=== PATIENT | female | born 1990 | race Caucasian/White ===

== ENCOUNTER 2019-07-11 13:15 | Outpatient (RCR) | payer OTHER, SELFPAY ==
--- NOTE | 2019-07-02 11:14 | PTOPEVAL ---
Thank you for referring this patient to [facility]. Please review, sign, date and return this plan of care JOHN. Pt seen by physical therapy at [facility] to address impairments of shoulder pain with scapular dyskinesia. She demonstrates UE impairments that require continued therapy to address. Cont PT 1-2x/wk x 8 wk to achieve therapy goals. I agree with and certify that the following plan of care is medically necessary. Referring Physician Date Attending Provider: PHYSICIAN NOT ON STAFF Referring Provider: Dr. Jaimee Graham MD and Dr Esme Johnson MD *PT Outpatient Evaluation Start: 07/02/19 08:33 Freq: Status: Active Protocol: Document 07/02/19 08:36 CAP (Rec: 07/02/19 09:39 CAP [id number]) Therapy Assessment Status Assessment Status Assessment Status Evaluation Outpatient Past Medical History Cardiovascular History Hx Hypertension Yes Hx Other Cardiac Disorders Yes: POTS Respiratory History Hx Asthma Yes Gastrointestinal History Hx Irritable Bowel Yes Musculoskeletal History Hx Orthopedic Surgery Yes: left knee surgery, left tarsel tunnel release Hx Other Musculoskeletal Disorders Yes: Ehlos-Danlos syndrome, left tarsal tunnel, chronic joint dislocation Integumentary History Hx Skin Disorders No Significant History Reproductive History Hx Reproductive Disorders No Significant History Psychosocial History Hx Anxiety Yes Evaluation Information Problem Diagnosis EDS with nontraumatic shoulder pain Onset 06/18/19 Cause EDS Subjective Information Pt was seen by orthopedic MD Query Text:As Reported By Patient/ at [facility] on 06/19/19. Pt was DX Family with scapular dyskinesia with nontraumatic shoulder pain. Pt was admitted to [facility] on 06/18/19 due to passing out and her shoulder would not stay in place. She was transfered to [facility] and seen by a orthopedic MD who was able to get her scapular back into place. She reports random numbness with sharp pain into her scapular region. Unknown cause for her numbness and UE pain . She also report popping of scapular and shoulder with UE movement. She also repor
--- NOTE | 2019-07-15 08:25 | PCPTNOTE ---
Patient called & cancelled scheduled appointment this date due to AC joint and went to ED on Monday. MD instructed her to hold therapy this week.
--- NOTE | 2019-07-19 08:58 | PCPTNOTE ---
Patient called & cancelled the next 3 scheduled appointment this date due to her shoulder dislocation not healed enough for therapy. Pt to have a MRI.
--- NOTE | 2019-08-09 10:02 | PCPTNOTE ---
Admitting Provider: Dr. Jaimee Graham MD Attending Provider: PHYSICIAN NOT ON STAFF Patient:Rosangela Koenig Date of :1990 Patient has not returned for any further treatments since 07/11/2019, therefore she will be discharged from therapy at this time. The goals have not been achieved due to patient seen for 3 visit due to change in medical status. Thank you for referring this patient to [facility]. Please review, sign, date and return this discharge summary JOHN. I have been updated about the patient's current status and I agree with discharge from the above service at this time. Referring Physician Date
== END 2019-08-09 10:13 | disposition home or self-care (01) ==
LOC: ANHPT 13:15
PROVIDERS: PCP Family Medicine
DX: M25.511 Pain in right shoulder (principal)
CPT/HCPCS: 97110; 97140; 97163

== ENCOUNTER → 2020-01-08 10:53 | Outpatient (CLI) | payer OTHER, SELFPAY ==
--- NOTE | ~2020-01-08 | CT_ITS ---
EXAMINATION: CT foot RT wo con DATE: 01/08/2020 11:22 INDICATION: Subtalar joint dislocation. Pain. TECHNIQUE: Computed tomography (CT) of the right foot was performed without intravenous contrast. Aut omated exposure control and iterative reconstruction technique were employed. The dose-length product was 182.36 mGy-cm. COMPARISON: None FINDINGS: Bone alignment is normal on these nonweightbearing images. No fracture. There is a benign b one island in first metatarsal. Joint spaces are normal. IMPRESSION: 1. Normal right foot. Reviewed, dictated and finalized at location A. IMPRESSION: 1. Normal right foot.
== END ==
PROVIDERS: Visit Provider Podiatrist Foot & Ankle Surgery
DX: M25.571 Pain in right ankle and joints of right foot (principal); M79.671 Pain in right foot
CPT/HCPCS: 73700

== ENCOUNTER → 2020-01-15 12:16 | Outpatient (CLI) | payer OTHER, SELFPAY ==
--- NOTE | ~2020-01-15 | MR_ITS ---
EXAMINATION: MR ankle RT wo con DATE: 01/15/2020 13:16 INDICATION: Right ankle pain with inability to straighten the forefoot reflects the ankle. TECHNIQUE: Magnetic resonance imaging (MRI) of the right ankle was performed without intravenous cont rast. Sequences included sagittal, coronal, and axial proton-density weighted fast spin echo without and with fat saturation. COMPARISON: Right foot CT dated 01/08/2020 FINDINGS: Medial ankle ligaments: Deep and superficial deltoid ligaments as well as the spring ligament are normal. Lateral ankle ligaments: The anterior and posterior inferior tibiofibular ligaments are normal. The anterior talofibular, calc aneofibular and posterior talofibular ligaments are normal. Tendons: Achilles tendon is normal. The peroneus longus and brevis tendons are normal. The tibialis anterior a nd extensor hallucis longus and extensor digitorum longus tendons are normal. The tibialis posterior, flexor digitorum longus and flexor hallucis longus tendons are normal. Plantar fascia: The plantar aponeurosis is normal. Bones/other: Bone alignment is normal. Small low signal intensity bone island at the head of the first metatarsal. There is normal marrow signal throughout with no reactive edema, fracture, osteonecrosis or patholog ic marrow replacing process. Joint spaces are normal. The sinus Tarsi and tarsal tunnel are unremarka ble. No atrophy or abnormal signal of the intrinsic musculature of the foot. Fluid: Physiologic amount fluid in the joint spaces. No abnormal fluid collections at the right ankle or vis ualized right foot. IMPRESSION: 1. Normal MRI of the right ankle, mid and hindfoot. Reviewed, dictated and finalized at location A.
== END ==
PROVIDERS: PCP Family Medicine; Visit Provider Podiatrist
DX: M79.671 Pain in right foot (principal); M25.571 Pain in right ankle and joints of right foot
CPT/HCPCS: 73721

== ENCOUNTER 2020-02-20 16:37 | Emergency (ER) | payer OTHER, SELFPAY ==
--- NOTE | ~2020-02-20 | CT_ITS ---
EXAMINATION: CT brain wo con DATE: 02/20/2020 19:09 INDICATION: Left arm numbness and weakness TECHNIQUE: Computed tomography (CT) of the head was performed without intravenous contrast. Sagittal and coronal reconstructions were performed. The mA was adjusted according to patient size. Iterative reconstruction technique was employed. The dose-length product was 605.33 mGy-cm. COMPARISON: head CT dated 12/02/2018 FINDINGS: No acute intracranial hemorrhage, acute infarction or abnormal extra axial fluid collection. Ventricl es are normal and symmetric. No mass/mass effect. The orbits, paranasal sinuses and mastoid air cells are normal. IMPRESSION: 1. Normal head CT. Reviewed, dictated and finalized at location A. IMPRESSION: 1. Normal head CT.
--- NOTE | ~2020-02-20 | CT_ITS ---
EXAMINATION: CT cervical spine wo con DATE: 02/20/2020 19:08 INDICATION: Neck pain, paresthesia and weakness in the left arm. TECHNIQUE: Computed tomography (CT) of the cervical spine was performed without intravenous contrast. Automated exposure control and iterative reconstruction technique were employed. The dose-length pro duct was 173.18 mGy-cm. COMPARISON: Cervical spine radiographs dated 11/10/2016 FINDINGS: Again seen is reversal of the normal cervical lordosis. No spondylolisthesis or facet subluxation. Mi ld cervical levocurvature. Vertebral body and disc heights are normal. No facet or uncovertebral oste oarthritis. Central canal and neural foramina are patent throughout. Cervical soft tissues are unrema rkable. Apices of the lungs are clear. IMPRESSION: 1. Mild cervical levocurvature and mild reversal of the normal cervical lordosis which could be posit ional or due to muscle spasm. Otherwise unremarkable cervical spine CT. Reviewed, dictated and finalized at location A. IMPRESSION: 1. Mild cervical levocurvature and mild reversal of the normal cervical lordosi s which could be positional or due to muscle spasm. Otherwise unremarkable cerv ical spine CT.
--- NOTE | ~2020-02-20 | XR_ITS ---
DATE: 02/20/2020 17:22 INDICATION: Ehler Danlos syndrome presenting with anterior left shoulder pain TECHNIQUE: AP and transscapular Y views of the left shoulder were obtained. COMPARISON: None FINDINGS: Normal alignment. No fracture. Glenohumeral joint is normal. Acromioclavicular joint is normal. Soft tissues are unremarkable. Visualized portions of the lungs are clear. IMPRESSION: Negative left shoulder radiographs. Reviewed, dictated and finalized at location A.
--- NOTE | ~2020-02-20 | XR_ITS ---
EXAMINATION: XR shoulder RT min 2V DATE: 02/20/2020 17:22 INDICATION: Ehler Danlos syndrome presenting with anterior left shoulder pain TECHNIQUE: AP and transscapular Y views of the left shoulder were obtained. COMPARISON: None FINDINGS: Normal alignment. No fracture. Glenohumeral joint is normal. Acromioclavicular joint is normal. Soft tissues are unremarkable. Visualized portions of the lungs are clear. IMPRESSION: Negative left shoulder radiographs. Reviewed, dictated and finalized at location A.
[2020-02-20 16:39] VITALS: BP 146/108; PULSE 130; RESP 18; TEMP 37.4; O2SAT 100
[2020-02-20] MEDS: KETOROLAC (*BKC) 60 MG/2 ML VIAL IM (18:32)
--- NOTE | 2020-02-20 19:37 | ED.UPPEXIN ---
HPI - Extremity Injury (Upper) General Chief Complaint: Extremity Injury, Upper Stated Complaint: shoulder dislocation, connective tissue disorder. Time Seen by Provider: 02/20/20 18:00 Source: patient Mode of arrival: ambulatory Limitations: no limitations History of Present Illness HPI narrative: This is a 29 year old female that presents to the ER for left shoulder pain since this afternoon. No known injury or trauma. Reports she tried taking her tramadol and muscle relaxers and then did some exercises with the shoulder without relief. Reports she then started to have some paresthesias in the left hand. Reports decreased ROM in the shoulder due to pain. Denies fever. Related Data Home Medications Medication Instructions Recorded Confirmed ascorbic acid (vitamin C) 1,000 mg 1 gm PO DAILY 05/15/19 tablet cyclobenzaprine 5 mg tablet 5 mg PO TID PRN 05/15/19 05/15/19 Allergies Allergy/AdvReac Type Severity Reaction Status Date / Time hydromorphone Allergy Intermediate Hives / Verified 11/29/19 09:17 Red Face azithromycin Allergy Unknown N/V, Verified 11/29/19 09:17 DIARRHEA, ABD CRAMPING. clarithromycin Allergy Unknown UNKNOWN Verified 11/29/19 09:17 duloxetine Allergy Unknown BULGING Verified 11/29/19 09:17 EYES meperidine Allergy Unknown UNKNOWN Verified 11/29/19 09:17 ondansetron Allergy Unknown UNKNOWN Verified 11/29/19 09:17 hydrocodone Allergy Unknown Verified 12/24/19 10:12 ENERGY DRINKS Allergy Mild ORAL Uncoded 05/22/19 15:06 SWELLING WATERMELON-LEMON MATCH-E-BE-NASH-SHE-WISH BAND SLURPY Allergy Mild ORAL Uncoded 05/22/19 15:06 SWELLING MEPERIDINE HCL AdvReac Mild N&V Uncoded 12/02/18 19:55 Review of Systems Review of Systems: Narrative: CONSTITUTIONAL: Denies fever EYES: Denies visual changes MUSCULOSKELETAL: Reports back pain, joint pain, and myalgia. NEUROLOGIC: Reports numbness, and weakness. All systems reviewed & are unremarkable except as noted in HPI and below PMFSH Social History Social History Smoking status: Never smoker Second hand tobacco smoke exposure: Yes ( smokes outside the house) Alcohol intake: current Gender identity (if verbalized by the patient): Female Exam Narrative: Exam Narrative: GENERAL: Well-appearing, well-nourished, and in no acute distress. HEAD: Normocephalic, atraumatic. EYES: PERRLA and EOMI. ENT: Nares clear, no rhinorrhea or epistaxis. Mucous membranes moist. Oropharynx without tonsillar hypertrophy exudate or other lesions. Bilateral TMs pearly hurtado non-bulging NECK: Supple. No adenopathy or masses. CHEST: Clear to auscultation. No respiratory distress. No wheezes rales or rhonchi HEART: Regular rate and rhythm. No murmur heard. Normal peripheral pulses. EXTREMITIES: Normal range of motion, except decreased ROM in the left shoulder due to pain. No edema or obvious deformity. Normal peripheral pulses. Normal capillary refill. Decreased sensation in the left hand SKIN: Warm, dry, no rash. NEURO: No focal deficits. Alert and oriented x3. CN II-XII grossly intact. Normal gait PSYCH: Normal mood and affect Course Consultations Consultation #1: Spoke with Dr. Alejo about patient work-up. Patient will be set up for an outpatient nerve conduction study and will follow-up in clinic. Date: 02/20/20 Time: 21:39 Consultation #2: Spoke with patient's orthopedic doctor about work-up. Patient will be given a dose of muscle relaxer and placed in a sling. She will follow-up in clinic next week. Date: 02/20/20 Time: 21:39 Vital Signs Vital signs: Vital Signs Temperature 99.4 F 02/20/20 16:39 Pulse Rate 130 H 02/20/20 16:39 Respiratory Rate 18 02/20/20 16:39 Blood Pressure 146/108 H 02/20/20 16:39 Pulse Oximetry 100 02/20/20 16:39 Temperature 99.4 F 02/20/20 16:39 Pulse Rate 70 02/20/20 20:02 Respiratory Rate 20 02/20/20 20:02 Blood Pressure 120/80 02/20/20 2
[2020-02-20] MEDS: MORPHINE SULFATE 4 MG/ML INJ IV PUSH (20:00)
[2020-02-20 20:02] VITALS: BP 120/80; PULSE 70; RESP 20; O2SAT 99
[2020-02-20] MEDS: diphenhydrAMINE HCl INJ 50 MG/ML VIAL 25 MG IV PUSH (20:09)
[2020-02-20] MEDS: FAMOTIDINE 20 MG/2 ML VIAL IV PUSH (20:57)
[2020-02-20 21:57] VITALS: BP 122/78; PULSE 78; RESP 20; O2SAT 100
== END 2020-02-20 21:58 | disposition home or self-care (01) ==
PROVIDERS: Emergency Provider Emergency Medicine; PCP Family Medicine
DX: Q79.60 Ehlers-Danlos syndrome, unspecified (principal); R20.2 Paresthesia of skin; M25.512 Pain in left shoulder; Z77.22 Contact with and (suspected) exposure to environmental tobacco smoke (acute) (chronic)
CPT/HCPCS: 70450; 72125; 73030; 81025; 96372; 96374; 96375; 99284; A4565; J1200; J1885; J2270; J3360

== ENCOUNTER → 2020-02-27 09:29 | Outpatient (CLI) | payer OTHER, SELFPAY ==
--- NOTE | ~2020-02-27 | XR_ITS ---
EXAMINATION: XR abdomen/kub 1V DATE: 02/27/2020 09:50 INDICATION: Unspecified abdominal pain. TECHNIQUE: A supine view of the abdomen was obtained. COMPARISON: CT abdomen and pelvis 07/01/2019 FINDINGS: There are no dilated loops of bowel. There is a moderate volume of stool in the colon. IMPRESSION: 1. Normal bowel gas pattern. Reviewed, dictated and finalized at location B.
== END ==
PROVIDERS: PCP Family Medicine; Visit Provider Physician Assistant
DX: R10.9 Unspecified abdominal pain (principal)
CPT/HCPCS: 74018

== ENCOUNTER 2020-04-21 12:18 | Outpatient (RCR) | payer OTHER, SELFPAY ==
--- NOTE | 2020-04-21 15:10 | PTOPEVAL ---
Thank you for referring Rosangela Koenig to [facility].? The patient is scheduled to be seen for therapy? 1 x/week for 10 weeks. Please review, sign, date and return this plan of care JOHN. I agree with and certify that the following plan of care is medically necessary. Referring Physician Date Referring Provider: [facility] *PT Outpatient Evaluation Start: 04/21/20 12:36 Freq: Status: Active Protocol: Document 04/21/20 12:35 CAP (Rec: 04/21/20 13:39 CAP [id number]) Therapy Assessment Status Assessment Status Assessment Status Evaluation Outpatient Past Medical History Past Medical History Source of Past Medical History Patient,Recalled from Previous Visit, Confirmed with Patient /Family Cardiovascular History Hx Hypertension Yes Hx Other Cardiac Disorders Yes: POTS Respiratory History Hx Asthma Yes Gastrointestinal History Hx Irritable Bowel Yes Musculoskeletal History Hx Orthopedic Surgery Yes: left knee surgery, left tarsel tunnel release Hx Other Musculoskeletal Disorders Yes: Ehlos-Danlos syndrome, left tarsal tunnel, chronic joint dislocation Integumentary History Hx Skin Disorders No Significant History Reproductive History Hx Reproductive Disorders No Significant History Psychosocial History Hx Anxiety Yes Evaluation Information Problem Diagnosis neck and left shoulder Onset 1 month for neck and shoulder Cause EDS Additional Evaluation Detail She has been having sd shoulder dislocations recently with AC joint dislocation. She has been DX with extra bone at C1 level. She subluxed her subtalor joint in January 2020. Subjective Information She has received injections Query Text:As Reported By Patient/ into C7 region 2 wks ago and Family left shoulder injection 1 wk ago. She reports her neck feels heavy with increased pain with motions. Reports the area of C7 becomes tension. REports she was having ant chest with radiating pain into left UE due the shoulder. She is limited with all activities due to the pain.
--- NOTE | 2020-04-27 15:55 | PCPTNOTE ---
Patient called & cancelled scheduled appointment this date due to returning to the orthopedic MD. Pt is scheduled for her re-eval only.
--- NOTE | 2020-05-21 08:23 | PCPTNOTE ---
Admitting Provider: Attending Provider: [facility] Patient:Rosangela Koenig Date of :1990 Discharge Note Patient has not returned for any further treatments since her initial evaluation on 04/21/2020, therefore she will be discharged at this time. The goals have been not been met since patient was seen for initial evaluation only. Thank you for referring this patient to [facility]. Please review, sign, date and return this discharge summary JOHN. I have been updated about the patient's current status and I agree with discharge from the above service at this time. Referring Physician Date
== END 2020-05-21 10:34 | disposition home or self-care (01) ==
LOC: ANHPT 12:18
PROVIDERS: PCP Family Medicine
DX: M25.512 Pain in left shoulder (principal); M54.2 Cervicalgia
CPT/HCPCS: 97110; 97163

== ENCOUNTER 2020-10-30 09:45 | Outpatient (RCR) | payer OTHER, SELFPAY ==
--- NOTE | 2020-10-16 14:40 | PTOPEVAL ---
Thank you for referring Rosangela Koenig to [facility].? The patient is scheduled to be seen for therapy? 2x/week for 3 weeks. Please review, sign, date and return this plan of care JOHN. I agree with and certify that the following plan of care is medically necessary. Referring Physician Date Referring Provider: Lazarus Blandon MD Source of Past Medical History Patient Cardiovascular History Hx Hypertension Yes Hx Other Cardiac Disorders Yes: POTS Respiratory History Hx Asthma Yes Gastrointestinal History Hx Irritable Bowel Yes Musculoskeletal History Hx Orthopedic Surgery Yes: left knee surgery, left tarsel tunnel release Hx Other Musculoskeletal Disorders Yes: Ehlos-Danlos syndrome, left tarsal tunnel, chronic joint dislocation Psychosocial History Hx Anxiety Yes Evaluation Information Problem Diagnosis right foot pain due to tarsal tunnel syndrome Onset 1 month Additional Evaluation Detail EDS causing continuous joint dislocation. talus/navicular dislocation 6 months ago with 4 days of hard cast, but removed to soft cast/air cast 1wk. Then developed ligament popping. She received a PIG MACHINE CRANE OPERATOR injection which helped the popping and symptoms. She returned to normal walking. Subjective Information She reports she has been Query Text:As Reported By Patient/ having right foot pain. She Family has started outside walking 15 minute 2-3x/day. She started having pain inferior to medial malleoli to heel region. Increased pain and difficulty with walking, standing, sleeping, daily activities. She is not able to tolerate her tennis shoes with custom inserts due to pain. Does c/o slight numbness and tingling of right great toe. PIG MACHINE CRANE OPERATOR and stim cell injections 3 wks ago with no relief of symptoms. Pain Assessment Self Report Pain Assessment Right Medial Ankle(s) Reported Pain Level 8 Pain Description Aching,Tender on Palpation, Tig
--- NOTE | 2020-10-30 15:37 | PCPTNOTE ---
Patient called & cancelled scheduled appointment remaining visits due to has a f/u visit with the surgeon scheduled.
--- NOTE | 2020-11-09 10:40 | PCPTNOTE ---
Admitting Provider: Attending Provider: Dr. Lazarus Blandon Patient:Rosangela Koenig Date of :1990 Discharge Note Patient has been discharged from skilled therapy services due to all therapy treatments caused increased foot/ankle pain. Therefore she will be discharged at this time. Patient?s initial visit was on 10/16/2020 10:45 and she had a total of 3 visits. The goals have been not met due to pain and limited tolerance with activities. Thank you for referring this patient to [facility]. Please review, sign, date and return this discharge summary JOHN. I have been updated about the patient's current status and I agree with discharge from the above service at this time. Referring Physician Date
== END 2020-11-11 09:14 | disposition home or self-care (01) ==
LOC: ANHPT 09:45
PROVIDERS: PCP Family Medicine
DX: M25.572 Pain in left ankle and joints of left foot (principal); M79.672 Pain in left foot
CPT/HCPCS: 97035; 97110; 97163

== ENCOUNTER → 2020-11-17 04:45 | Outpatient (CLI) | payer OTHER, SELFPAY ==
[2020-11-17 20:06] LABS: SARS-CoV-2 RNA PCR Negative
== END ==
PROVIDERS: PCP Family Medicine; Visit Provider Podiatrist Foot & Ankle Surgery
DX: Z01.812 Encounter for preprocedural laboratory examination (principal); Z20.822 Contact with and (suspected) exposure to COVID-19
CPT/HCPCS: C9803; U0003; U0005

== ENCOUNTER 2020-11-20 03:55 | Day surgery (SDC) | payer OTHER, SELFPAY ==
[2020-11-10 10:39] VITALS: BMI 24.1
--- NOTE | 2020-11-19 08:40 | WPDANESEPPF ---
Anes - Initial Pre Proc Eval Procedure: Operation Date: 11/20/20 13:30 Proposed Procedures p Right Tarsal Tunnel Release - Pranay Dejesus DPM Date/Time: 11/19/20 08:40 Surgeon: Pranay Dejesus DPM Pre Op Diagnosis: right tarsal tunnel Patient Data Age: 30 Gender: F Height: 1.7 m Weight: 70 kg Allergies Allergy/AdvReac Type Severity Reaction Status Date / Time hydromorphone Allergy Intermediate Hives / Verified 11/20/20 12:07 Red Face clarithromycin Allergy Mild N/V Verified 11/20/20 12:07 hydrocodone Allergy Mild Itching Verified 11/20/20 12:07 meperidine Allergy Mild Nausea and Verified 11/20/20 12:07 Vomiting azithromycin Allergy Unknown N/V, Verified 11/20/20 12:07 DIARRHEA, ABD CRAMPING. duloxetine Allergy Unknown BULGING Verified 11/20/20 12:07 EYES ondansetron Allergy Unknown PROLONGED Verified 11/20/20 12:07 QT ENERGY DRINKS Allergy Mild ORAL Uncoded 11/20/20 12:07 SWELLING WATERMELON-LEMON [place] SLURPY Allergy Mild ORAL Uncoded 11/20/20 12:07 SWELLING Home Medications Medication Instructions Recorded Confirmed Type ascorbic acid (vitamin C) 1,000 mg 1 gm PO DAILY 05/15/19 11/20/20 History tablet famotidine 40 mg PO DAILY #30 tablet 07/01/19 11/20/20 Rx cetirizine 10 mg tablet 10 mg PO BID tablet 02/27/20 11/20/20 History fluticasone propionate 50 1 spray INTRANASAL DAILY 05/18/20 11/20/20 History mcg/actuation nasal spray,suspension epinephrine 0.3 mg/0.3 mL 0.3 mg IM ONCE #1 ea 07/16/20 11/10/20 Rx injection, auto-injector tramadol 50 mg tablet 50 mg PO Q6H PRN #30 tablet 07/20/20 11/20/20 Rx metoclopramide HCl 10 mg tablet 10 mg PO Q6H PRN #60 tablet 09/28/20 11/20/20 Rx cyclobenzaprine 5 mg tablet 5 mg PO TID PRN #90 tablet 10/23/20 11/20/20 Rx Vitassium 1 tab-cap BYMOUTH DAILY PRN 11/10/20 11/20/20 History diazepam 5 mg tablet 5 mg PO TID PRN #90 tablet 11/16/20 Rx triamcinolone acetonide 0.1 % 1 applic DENTAL BID #5 g 11/16/20 Rx dental paste Patient hx anesthesia problems: post op nausea/vomiting (severe) Family hx anesthesia problems: none PMFSH Past Medical History Medical History (Updated 11/19/20 @ 08:40 by Ferdinand Schafer DO) Asthma Colitis Costochondritis Disorder 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) IBS (irritable bowel syndrome) Type C Mononucleosis Motion sickness PONV (postoperative nausea and vomiting) Surgical History Surgical History History of endoscopy History of tonsillectomy Tarsal tunnel syndrome, left lower limb Tram teeth extracted Social History Social History Smoking status: Never smoker Second hand tobacco smoke exposure: No Alcohol intake: current Substance use: never Substance use type: does not use Living arrangements: with family Gender identity (if verbalized by the patient): Female Sexual Orientation (if Verbalized by the Patient): Straight or Heterosexual Spiritual care concerns: No Anes - Eval Final PreProcedure Day of Procedure 11/19/20 08:40 Patient weight: normal Heart: regular rate and rhythm Lungs: clear to auscultation and normal air movement Airway: Mallampati scale class II Neurological: alert and oriented Last oral intake: >/= 8 hours ASA classification: III Emergent: no Anesthetic plan: proceed Anesthesia type and monitoring: general GIVS and standard monitoring Informed Consent: The patient's anesthetic plan and its attendant risks and benefits were discussed with the patient/family/POA. Questions were solicited and answers provided to the satisfaction of the patient/family/POA.
[2020-11-20] VITALS (9 sets, daily range): BP systolic 114–129; BP diastolic 73–91; PULSE 97–119; RESP 12–18; TEMP 36.1–36.3; O2SAT 99–100
--- NOTE | 2020-11-20 11:46 | WPDHPUPDATE1 ---
History and Physical Update Update Date/Time: 11/20/20 11:46 History and Physical has been reviewed, including an updated exam of the patient. There are NO changes in the patient's condition. Risks, benefits, and alternatives have been discussed and questions answered. Patient agrees to proceed with procedure.
[2020-11-20] MEDS: LACTATED RINGERS 1,000 ML 30 ML IV CONT ×2 (12:35→14:53)
[2020-11-20] MEDS: SCOPOLAMINE 1.5 MG PATCH TRANSDERM (12:57)
--- NOTE | 2020-11-20 13:09 | PM.IMHP ---
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) IBS (irritable bowel syndrome) Type C Mononucleosis Motion sickness PONV (postoperative nausea and vomiting) Surgical History Surgical History History of endoscopy History of tonsillectomy Tarsal tunnel syndrome, left lower limb [place] teeth extracted Social History Social History Smoking status: Never smoker Second hand tobacco smoke exposure: No Alcohol intake: current Substance use: never Substance use type: does not use Living arrangements: with family Gender identity (if verbalized by the patient): Female Sexual Orientation (if Verbalized by the Patient): Straight or Heterosexual Spiritual care concerns: No Meds Home Medications and Allergies Home Medications Medication Instructions Recorded Confirmed Type ascorbic acid (vitamin C) 1,000 mg 1 gm PO DAILY 05/15/19 11/20/20 History tablet famotidine 40 mg PO DAILY #30 tablet 07/01/19 11/20/20 Rx cetirizine 10 mg tablet 10 mg PO BID tablet 02/27/20 11/20/20 History fluticasone propionate 50 1 spray INTRANASAL DAILY 05/18/20 11/20/20 History mcg/actuation nasal spray,suspension epinephrine 0.3 mg/0.3 mL 0.3 mg IM ONCE #1 ea 07/16/20 11/10/20 Rx injection, auto-injector tramadol 50 mg tablet 50 mg PO Q6H PRN #30 tablet 07/20/20 11/20/20 Rx metoclopramide HCl 10 mg tablet 10 mg PO Q6H PRN #60 tablet 09/28/20 11/20/20 Rx cyclobenzaprine 5 mg tablet 5 mg PO TID PRN #90 tablet 10/23/20 11/20/20 Rx Vitassium 1 tab-cap BYMOUTH DAILY PRN 11/10/20 11/20/20 History diazepam 5 mg tablet 5 mg PO TID PRN #90 tablet 11/16/20 Rx triamcinolone acetonide 0.1 % 1 applic DENTAL BID #5 g 11/16/20 Rx dental paste Allergies Allergy/AdvReac Type Severity Reaction Status Date / Time hydromorphone Allergy Intermediate Hives / Verified 11/20/20 12:07 Red Face clarithromycin Allergy Mild N/V Verified 11/20/20 12:07 hydrocodone Allergy Mild Itching Verified 11/20/20 12:07 meperidine Allergy Mild Nausea and Verified 11/20/20 12:07 Vomiting azithromycin Allergy Unknown N/V, Verified 11/20/20 12:07 DIARRHEA, ABD CRAMPING. duloxetine Allergy Unknown BULGING Verified 11/20/20 12:07 EYES ondansetron Allergy Unknown PROLONGED Verified 11/20/20 12:07 QT ENERGY DRINKS Allergy Mild ORAL Uncoded 11/20/20 12:07 SWELLING [place] SLURPY Allergy Mild ORAL Uncoded 11/20/20 12:07 SWELLING Vital Signs Vital Signs - 24 hr 11/20/20 13:05 Temperature 36.3 C L Pulse Rate 119 H Blood Pressure 124/82 Pulse Oximetry 100 Exam Extrem: Right lower extremity: foot (POP of tarsal tunnel) Assessment and Plan Additional Plan Tarsal tunnel release right
[2020-11-20] MEDS: ceFAZolin 2 GM/D5W 50 ML 2 GM/50 ML BAG IVPB (13:17)
[2020-11-20] MEDS: BUPIVACAINE HCL 0.5% PF 30 ML VIAL INFILTRATE (13:37)
--- NOTE | 2020-11-20 13:54 | P.OP_ITS ---
Procedure Note - Detailed Date of procedure: 11/20/20 Pre-op diagnosis: right tarsal tunnel Post-op diagnosis: same Procedure performed: Tarsal tunnel release right Description of procedure: Under monitored sedation the patient was brought into the operating room and placed on the operating table in a supine position. Following administration of general anesthesia the foot was then scrubbed, prepped, and draped in the usual aseptic manner. An Esmark bandage was used to exsanguinate the patients right foot and ankle. Tourniquet was inflated to 300mm. Attention was directed to the medial aspect of the ankle posterior to medial malleolus. A linear incision made over the tarsal tunnel. It was deepened using blunt dissection with care being taken to identify and retract all vital and neurovascular structures. The tarsal tunnel was identified and released as was then origin of the adductor hallucis muscle. The wound was flushed with copious amounts of sterile normal saline and then skin was reapproximated and coapted using 5-0 vicryl. The wound was then covered with a dry sterile compressive dressing consisting of steristrips, antibiotic ointment, Adaptic, 4 x 4?s, [place]ina and Coban. Ankle tourniquet was deflated and prompt capillary refill response was noted to all digits of the left foot. Patient tolerated procedure and anesthesia well. Transferred to the recovery room with vital signs stable and neurovascular status intact to all digits of the right foot. Following a period of post-operative monitoring the patient will be discharged home with written and oral post-operative instructions. Anesthesia: GLMA and MAC Surgeon: Pranay Dejesus DPM Health Underwriter: None Estimated blood loss (mL): 5 Drains: No Packing: No Pathology: none sent Complications: No immediate complications Condition: stable Disposition: PACU
[2020-11-20] MEDS: fentaNYL CITRATE INJ (*CRX) 100 MCG/2 ML VIAL 25 MCG IV PUSH ×8 (14:17→15:00)
[2020-11-20] MEDS: oxyCODONE HCL (*CRX) 5 MG TAB IR PO (15:34)
== END 2020-11-20 16:12 | disposition home or self-care (01) ==
PROVIDERS: PCP Family Medicine; Visit Provider Podiatrist Foot & Ankle Surgery
PROC: (CPT 28035; principal; 2020-11-20 13:30)
DX: G57.51 Tarsal tunnel syndrome, right lower limb (principal); Q79.60 Ehlers-Danlos syndrome, unspecified; K58.1 Irritable bowel syndrome with constipation
CPT/HCPCS: 28035; A9270; C9803; J0690; J1100; J2250; J2405; J2704; J3010; J7120; U0003; U0005

== ENCOUNTER 2020-12-16 15:49 | Emergency (ER) | payer OTHER, SELFPAY ==
[2020-12-16] VITALS (8 sets, daily range): BP systolic 124–151; BP diastolic 91–96; PULSE 108–123; RESP 12–20; TEMP 36.4; O2SAT 96–100
--- NOTE | ~2020-12-16 | XR_ITS ---
XR knee RT min 4V DATE: 12/16/2020 16:56 INDICATION: Generalized knee pain, redness TECHNIQUE: 4 views COMPARISON: 07/18/2018 right knee FINDINGS: No fracture or dislocation, joint effusion, radiopaque and articular loose body or chondroc alcinosis or significant joint space narrowing. No periosteal reaction or bone destruction. IMPRESSION: Negative Reviewed, dictated and finalized at location A. IMPRESSION: Negative
--- NOTE | 2020-12-16 16:45 | PC.NURSE ---
xray at bedside.
--- NOTE | 2020-12-16 18:24 | ED.LOWEXIN ---
HPI - Extremity Injury (Lower) General Chief Complaint: Extremity Injury, Lower Stated Complaint: Right Knee Swelling, Pain Time Seen by Provider: 12/16/20 16:32 Source: patient Limitations: no limitations History of Present Illness HPI Narrative: 30-year-old with a history of Sunday-Danlos syndrome here with complaints of right knee pain for past 2 days she denies any trauma she states that there was mild swelling around the knee joint , has pain when ambulation or bending the knee. She also mentions that she had a tarsal tunnel release approximately 2 weeks ago. MD complaint: knee injury Onset (ago): day(s) (2) Injury: Right: knee Type of Injury: unknown Place: home Severity: moderate Relieving factors: nothing Exacerbating factors: weight bearing and movement Other symptoms: none Related Data Home Medications Medication Instructions Recorded Confirmed ascorbic acid (vitamin C) 1,000 mg 1 gm PO DAILY 05/15/19 11/20/20 tablet cetirizine 10 mg tablet 10 mg PO BID tablet 02/27/20 11/20/20 fluticasone propionate 50 1 spray INTRANASAL DAILY 05/18/20 11/20/20 mcg/actuation nasal spray,suspension Vitassium 1 tab-cap BYMOUTH DAILY PRN 11/10/20 11/20/20 Allergies Allergy/AdvReac Type Severity Reaction Status Date / Time hydromorphone Allergy Intermediate Hives / Verified 12/16/20 16:05 Red Face clarithromycin Allergy Mild N/V Verified 12/16/20 16:05 hydrocodone Allergy Mild Itching Verified 12/16/20 16:05 meperidine Allergy Mild Nausea and Verified 12/16/20 16:05 Vomiting azithromycin Allergy Unknown N/V, Verified 12/16/20 16:05 DIARRHEA, ABD CRAMPING. duloxetine Allergy Unknown BULGING Verified 12/16/20 16:05 EYES ondansetron Allergy Unknown PROLONGED Verified 12/16/20 16:05 QT ENERGY DRINKS Allergy Mild ORAL Uncoded 12/16/20 16:05 SWELLING WATERMELON-LEMON [place] SLURPY Allergy Mild ORAL Uncoded 12/16/20 16:05 SWELLING Review of Systems Review of Systems: All systems reviewed & are unremarkable except as noted in HPI and below Constitutional: Constitutional: Reports no additional constitutional complaints Eyes: Eyes: Reports no additional eye complaints ENT: Reports system reviewed and no additional complaints, except as documented Cardiovascular: Cardiovascular: Reports no additional cardiovascular complaints Respiratory: Respiratory: Reports no additional respiratory complaints Gastrointestinal: Gastrointestinal: Reports no additional gastrointestinal complaints Musculoskeletal: Musculoskeletal: Reports as per HPI Endocrine: Endocrine: Reports no additional endocrine complaints PMFSH Past Medical History Medical History Asthma Colitis Costochondritis Disorder 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) IBS (irritable bowel syndrome) Type C Mononucleosis Motion sickness PONV (postoperative nausea and vomiting) Surgical History Surgical History History of endoscopy History of tonsillectomy Tarsal tunnel syndrome, left lower limb [place] teeth extracted Social History Social History Smoking status: Never smoker Second hand tobacco smoke exposure: No Alcohol intake: current Substance use: never Substance use type: does not use Gender identity (if verbalized by the patient): Female Spiritual care concerns: No Exam Narrative: Exam Narrative: GENERAL: Well-appearing, well-nourished, and in no acute distress. HEAD: Normocephalic, atraumatic. EYES: PERRLA and EOMI. NECK: Supple. CHEST: Clear to auscultation. No respiratory distress. HEART: Regular rate and rhythm. No murmur heard. Normal peripheral pulses. ABDOMEN: Soft, nontender, nondistended, normal active bowel sounds. EXTREMITIES: Normal range of motion. No edema. Examination of the
--- NOTE | 2020-12-16 18:24 | PC.NURSE ---
Dr. Kaufman to bedside to discuss results with pt.
== END 2020-12-16 18:42 | disposition home or self-care (01) ==
PROVIDERS: Emergency Provider Family Medicine; PCP Family Medicine
DX: M25.561 Pain in right knee (principal); Q79.60 Ehlers-Danlos syndrome, unspecified; J45.909 Unspecified asthma, uncomplicated; K58.1 Irritable bowel syndrome with constipation; Z98.890 Other specified postprocedural states
CPT/HCPCS: 73564; 99283

== ENCOUNTER 2021-02-10 12:24 | Emergency (ER) | payer OTHER, SELFPAY ==
--- NOTE | ~2021-02-10 | XR_ITS ---
XR shoulder LT min 2V DATE: 02/10/2021 13:19 INDICATION: Left shoulder pain TECHNIQUE: 4 views COMPARISON: 02/20/2020 left shoulder FINDINGS: No fracture or dislocation, periosteal reaction or bone destruction or abnormal soft tissue calcification. IMPRESSION: Negative Reviewed, dictated and finalized at location A. IMPRESSION: Negative
--- NOTE | ~2021-02-10 | XR_ITS ---
EXAMINATION: XR mandible min 4V DATE: 02/10/2021 13:18 INDICATION: Jaw pain. Syndrome of joint dislocation. TECHNIQUE: 4 views of the mandible were obtained. COMPARISON: Mandible radiographs 09/14/2018, head CT 02/20/2020 FINDINGS: Bone alignment is normal. No fracture. The temporomandibular joints are normal. IMPRESSION: 1. Normal mandible. Reviewed, dictated and finalized at location A. IMPRESSION: 1. Normal mandible.
[2021-02-10 12:39] VITALS: BP 144/104; PULSE 120; RESP 18; TEMP 36.1; O2SAT 98
--- NOTE | 2021-02-10 14:44 | ED.GENADULT ---
HPI - General Adult General Chief complaint: Extremity Injury, Upper Stated complaint: jaw and shoulder dislocation? Time Seen by Provider: 02/10/21 14:09 Source: patient Mode of arrival: ambulatory Limitations: no limitations History of Present Illness HPI narrative: 30-year-old with a history of Sunday-Danlos syndrome here with complaints of left shoulder pain chest pain, mandibular pain since yesterday. Patient states that she dislocated her shoulder yesterday was at [facility] which was reduced however since this morning she has been having more pain she thinks it is dislocated as well. Patient also states that she is scheduled to see TMJ specialist in [place] she denies any trauma. Patient states that she takes Valium 5 mg 3 times a day, Flexeril pain medication. Onset (ago): day(s) (1) Location: mouth and upper extremity (Left) Quality: aching Pain Consistency: constant Relieving factors: none Exacerbating factors: movement Associated symptoms: denies other symptoms Related Data Home Medications Medication Instructions Recorded Confirmed ascorbic acid (vitamin C) 1,000 mg 1 gm PO DAILY 05/15/19 02/02/21 tablet cetirizine 10 mg tablet 10 mg PO BID tablet 02/27/20 02/02/21 fluticasone propionate 50 1 spray INTRANASAL DAILY 05/18/20 02/02/21 mcg/actuation nasal spray,suspension Vitassium 1 tab-cap BYMOUTH DAILY PRN 11/10/20 02/02/21 Allergies Allergy/AdvReac Type Severity Reaction Status Date / Time hydromorphone Allergy Intermediate Hives / Verified 02/10/21 14:30 Red Face clarithromycin Allergy Mild N/V Verified 02/10/21 14:30 hydrocodone Allergy Mild Itching Verified 02/10/21 14:30 meperidine Allergy Mild Nausea and Verified 02/10/21 14:30 Vomiting azithromycin Allergy Unknown N/V, Verified 02/10/21 14:30 DIARRHEA, ABD CRAMPING. duloxetine Allergy Unknown BULGING Verified 02/10/21 14:30 EYES ondansetron Allergy Unknown PROLONGED Verified 02/10/21 14:30 QT ENERGY DRINKS Allergy Mild ORAL Uncoded 12/16/20 16:05 SWELLING WATERMELON-LEMON [place] SLURPY Allergy Mild ORAL Uncoded 12/16/20 16:05 SWELLING Review of Systems Review of Systems: All systems reviewed & are unremarkable except as noted in HPI and below Constitutional: Constitutional: Reports no additional constitutional complaints Eyes: Eyes: Reports no additional eye complaints ENT: Reports as per HPI Cardiovascular: Cardiovascular: Reports no additional cardiovascular complaints Respiratory: Respiratory: Reports no additional respiratory complaints Gastrointestinal: Gastrointestinal: Reports no additional gastrointestinal complaints Musculoskeletal: Musculoskeletal: Reports as per HPI PMFSH Past Medical History Medical History Asthma Colitis Costochondritis Disorder 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) IBS (irritable bowel syndrome) Type C Mononucleosis Motion sickness PONV (postoperative nausea and vomiting) Tarsal tunnel syndrome of right side Surgical History Surgical History History of endoscopy History of tonsillectomy Tarsal tunnel syndrome, left lower limb [place] teeth extracted Social History Social History Smoking status: Never smoker Second hand tobacco smoke exposure: No Alcohol intake: current Substance use: never Substance use type: does not use Gender identity (if verbalized by the patient): Female Spiritual care concerns: No Exam Narrative: GENERAL: Well-appearing, well-nourished, and in no acute distress. HEAD: Normocephalic, atraumatic. EYES: PERRLA and EOMI. ENT: Nares clear, cannot open the mouth sec to pain , deviated to the right . NECK: Supple. CHEST: Clear to auscultation. No respiratory distress. HEART: Regular rate and rhythm
[2021-02-10 15:00] VITALS: BP 125/92; PULSE 88; RESP 16; O2SAT 97
== END 2021-02-10 15:00 | disposition home or self-care (01) ==
PROVIDERS: Emergency Provider Family Medicine; PCP Family Medicine
DX: M25.512 Pain in left shoulder (principal); R68.84 Jaw pain; Q79.60 Ehlers-Danlos syndrome, unspecified; J45.909 Unspecified asthma, uncomplicated; K58.9 Irritable bowel syndrome, unspecified
CPT/HCPCS: 70110; 73030; 81025; 99284; A4565

== ENCOUNTER 2021-06-04 19:24 | Emergency (ER) | payer OTHER, SELFPAY ==
--- NOTE | ~2021-06-04 | CT_ITS ---
EXAMINATION: CT facial bones wo con DATE: 06/04/2021 21:38 INDICATION: Right jaw swelling and pain. TECHNIQUE: Computed tomography (CT) of the facial bones and maxillofacial region was performed withou t intravenous contrast. Automated exposure control and iterative reconstruction technique were employ ed. The dose-length product was 278.53 mGy-cm. COMPARISON: Maxillofacial CT 09/14/2018, head CT 02/20/20 FINDINGS: There is mild mucosal thickening of left maxillary sinus. There is rightward translation of the mandible with respect to the maxilla. The right temporomandibular joint is normal with mandibula r condyle in the closed mouth position. The left temporomandibular joint demonstrates anterior displa cement of the mandibular condyle into the open-mouth position. No fracture. IMPRESSION: 1. Asymmetric positioning of the mandible with the right temporomandibular joint in the closed mouth position and left temporomandibular joint in the open mouth position. Reviewed, dictated and finalized at location A. NOLOGY STRATEGIST IMPRESSION: 1. Asymmetric positioning of the mandible with the right temporomandibular join t in the closed mouth position and left temporomandibular joint in the open silvia th position.
[2021-06-04 19:26] VITALS: BP 142/96; PULSE 131; RESP 20; TEMP 37.3; O2SAT 100
--- NOTE | 2021-06-04 19:35 | ED.ALLEREA ---
HPI - Allergic Reaction General Chief complaint: Allergic Reaction Stated complaint: allergic reaction Time Seen by Provider: 06/04/21 19:32 Source: patient History of Present Illness HPI narrative: Patient presents with concern for allergic reaction. Reports a history of anaphylaxis triggered by unclear etiologies. Reports symptoms started approximately 30 minutes ago she took Benadryl and EpiPen at home. She reports she continues to feel like she is having a swollen tongue and difficulty swallowing patient came to the ER for evaluation. She denies any fevers chills denies any nausea vomiting or diarrhea. Reports perioral itching denies any rash. Related Data Home Medications Medication Instructions Recorded Confirmed ascorbic acid (vitamin C) 1,000 mg 1 gm PO DAILY 05/15/19 02/02/21 tablet cetirizine 10 mg tablet 10 mg PO BID tablet 02/27/20 02/02/21 fluticasone propionate 50 1 spray INTRANASAL DAILY 05/18/20 02/02/21 mcg/actuation nasal spray,suspension Vitassium 1 tab-cap BYMOUTH DAILY PRN 11/10/20 02/02/21 Allergies Allergy/AdvReac Type Severity Reaction Status Date / Time hydromorphone Allergy Intermediate Hives / Verified 06/04/21 19:37 Red Face clarithromycin Allergy Mild N/V Verified 06/04/21 19:37 hydrocodone Allergy Mild Itching Verified 06/04/21 19:37 meperidine Allergy Mild Nausea and Verified 06/04/21 19:37 Vomiting azithromycin Allergy Unknown N/V, Verified 06/04/21 19:37 DIARRHEA, ABD CRAMPING. duloxetine Allergy Unknown BULGING Verified 06/04/21 19:37 EYES ondansetron Allergy Unknown PROLONGED Verified 06/04/21 19:37 QT ENERGY DRINKS Allergy Mild ORAL Uncoded 06/04/21 19:37 SWELLING WATERMELON-LEMON [place] SLURPY Allergy Mild ORAL Uncoded 06/04/21 19:37 SWELLING Review of Systems Review of Systems: CONSTITUTIONAL: Denies fever, chills, or sweats. EYES: Denies visual changes, redness, or discharge. ENT: Denies rhinorrhea, congestion, sore throat, or otalgia. CARDIOVASCULAR: Denies chest pain, palpitations, or edema. RESPIRATORY: Denies cough GASTROINTESTINAL: Denies abdominal pain, nausea, vomiting, or diarrhea. GENITOURINARY: Denies dysuria or hematuria. SKIN: Denies rash MUSCULOSKELETAL: Denies back pain, joint pain, or myalgia. NEUROLOGIC: Denies headache, numbness, dizziness, or weakness. PSYCHIATRIC: Denies anxiety or depression. 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) IBS (irritable bowel syndrome) Type C Mononucleosis Motion sickness PONV (postoperative nausea and vomiting) Tarsal tunnel syndrome of right side Surgical History Surgical History History of endoscopy History of tonsillectomy Tarsal tunnel syndrome, left lower limb [place] teeth extracted Social History Social History Smoking status: Never smoker Second hand tobacco smoke exposure: No Alcohol intake: current Substance use: never Substance use type: does not use Gender identity (if verbalized by the patient): Female Sexual Orientation (if Verbalized by the Patient): Straight or Heterosexual Spiritual care concerns: No Exam Narrative: GENERAL: Well-appearing, well-nourished, and in no acute distress. HEAD: Normocephalic, atraumatic. EYES: PERRLA and EOMI. ENT: Nares clear, no rhinorrhea or epistaxis. Mucous membranes moist. No erythema or edema in the oropharynx NECK: Supple. No masses. No JVD CHEST: Clear to auscultation. No respiratory distress. No wheezes rales or rhonchi HEART: Regular rate and rhythm. No murmur heard. Normal peripheral pulses. ABDOMEN: Soft, nontender, nondistended, norm
[2021-06-04 19:36] VITALS: BP 155/72; PULSE 128; RESP 12; O2SAT 100
--- NOTE | 2021-06-04 19:56 | PC.NURSE ---
unsuccessful IV attempt, per EDP okay to give meds orally as pt has patent airway w/ no swelling noted
[2021-06-04] MEDS: diphenhydrAMINE HCl CAP 25 MG CAPSULE PO (19:59)
[2021-06-04] MEDS: predniSONE 20 MG TABLET 60 MG PO (19:59)
[2021-06-04 20:54] VITALS: BP 131/83; PULSE 116; RESP 18; O2SAT 100
--- NOTE | 2021-06-04 20:55 | PC.NURSE ---
Pt called this RN to room to notify left side of jaw came out of place - pt has PMH of same. EDP made aware.
[2021-06-04] MEDS: KETOROLAC 30 MG/ML VIAL (*BKC) IM (21:10)
[2021-06-04 22:11] VITALS: BP 124/81; PULSE 97; RESP 17; O2SAT 100
[2021-06-04] MEDS: CYCLOBENZAPRINE HCL 10 MG TABLET PO (22:21)
[2021-06-04 23:22] VITALS: BP 132/88; PULSE 91; RESP 15; O2SAT 99
== END 2021-06-04 23:23 | disposition home or self-care (01) ==
LOC: ANHED 20:05
PROVIDERS: Emergency Provider Emergency Medicine; PCP Family Medicine
DX: T78.2XXA Anaphylactic shock, unspecified, initial encounter (principal); Q79.60 Ehlers-Danlos syndrome, unspecified; Z91.018 Allergy to other foods; Z88.8 Allergy status to other drugs, medicaments and biological substances; Z87.09 Personal history of other diseases of the respiratory system; Z87.19 Personal history of other diseases of the digestive system; Z90.89 Acquired absence of other organs; Z79.899 Other long term (current) drug therapy
CPT/HCPCS: 70486; 96372; 99284; A9270; J1885; J7512

== ENCOUNTER 2021-10-26 17:54 | Emergency (ER) | payer OTHER, SELFPAY ==
[2021-10-26 17:58] VITALS: BP 124/91; PULSE 133; RESP 20; O2SAT 100
[2021-10-26] MEDS: diphenhydrAMINE HCl INJ 50 MG/ML VIAL IV PUSH ×2 (18:18→19:47)
[2021-10-26] MEDS: FAMOTIDINE 20 MG/2 ML VIAL IV PUSH (18:18)
[2021-10-26] MEDS: methylPREDNISolone SOD SUCC 125 MG VIAL IV PUSH (18:19)
--- NOTE | 2021-10-26 18:24 | ED.ALLEREA ---
HPI - Allergic Reaction General Chief complaint: Allergic Reaction Stated complaint: allergic reaction Time Seen by Provider: 10/26/21 18:15 Source: patient Mode of arrival: ambulatory Limitations: no limitations History of Present Illness HPI narrative: This is a 31-year-old female that presents to the emergency department for a possible allergic reaction. Reports history of several allergies and anaphylaxis. She has an EpiPen and currently sees an supervisor general. Reports today she had a smoothie from [employer]. Shortly after she started to note itching and redness. She took her EpiPen. Has continued to have itching of her throat and swelling of her tongue. Denies difficulty breathing. Related Data Home Medications Medication Instructions Recorded Confirmed ascorbic acid (vitamin C) 1,000 mg 1 gm PO DAILY 05/15/19 10/15/21 tablet cetirizine 10 mg tablet 10 mg PO BID tablet 02/27/20 10/15/21 fluticasone propionate 50 1 spray INTRANASAL DAILY 05/18/20 10/15/21 mcg/actuation nasal spray,suspension Vitassium 1 tab-cap BYMOUTH DAILY PRN 11/10/20 10/15/21 Allergies Allergy/AdvReac Type Severity Reaction Status Date / Time hydromorphone Allergy Intermediate Hives / Verified 10/14/21 15:29 Red Face clarithromycin Allergy Mild N/V Verified 10/14/21 15:29 hydrocodone Allergy Mild Itching Verified 10/14/21 15:29 meperidine Allergy Mild Nausea and Verified 10/14/21 15:29 Vomiting azithromycin Allergy Unknown N/V, Verified 10/14/21 15:29 DIARRHEA, ABD CRAMPING. duloxetine Allergy Unknown BULGING Verified 10/14/21 15:29 EYES ondansetron Allergy Unknown PROLONGED Verified 10/14/21 15:29 QT ENERGY DRINKS Allergy Mild ORAL Uncoded 06/04/21 19:37 SWELLING W[place]ELON-LEMON [place] [employer] SLURPY Allergy Mild ORAL Uncoded 06/04/21 19:37 SWELLING Review of Systems Review of Systems: CONSTITUTIONAL: Denies fever SKIN: Reports rash and itching. 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) IBS (irritable bowel syndrome) Type C Mononucleosis Motion sickness PONV (postoperative nausea and vomiting) Tarsal tunnel syndrome of right side Surgical History Surgical History History of endoscopy History of tonsillectomy Tarsal tunnel syndrome, left lower limb [place] teeth extracted Social History Social History Second hand tobacco smoke exposure: No Alcohol intake: current Substance use: never Substance use type: does not use Gender identity (if verbalized by the patient): Female Sexual Orientation (if Verbalized by the Patient): Straight or Heterosexual Spiritual care concerns: No Exam Narrative: GENERAL: Well-appearing, well-nourished, and in no acute distress. HEAD: Normocephalic, atraumatic. EYES: EOMI. ENT: Nares clear, no rhinorrhea or epistaxis. Mucous membranes moist. Oropharynx appears normal NECK: Supple. No adenopathy or masses. CHEST: Clear to auscultation. No respiratory distress. No wheezes rales or rhonchi HEART: Regular rate and rhythm. No murmur heard. Normal peripheral pulses. EXTREMITIES: Normal range of motion. No edema. SKIN: Warm, dry. Hives present on the chest NEURO: No focal deficits. Alert and oriented x3. PSYCH: Normal mood and affect Course Vital Signs Vital signs: Vital Signs Pulse Rate 133 H 10/26/21 17:58 Respiratory Rate 20 10/26/21 17:58 Blood Pressure 124/91 H 10/26/21 17:58 Pulse Oximetry 100 10/26/21 17:58 Pulse Rate 122 H 10/26/21 20:00 Respiratory Rate 14 10/26/21 20:00 Blood Pressure 155/107 H 10/26/21 20:00 Pulse Oximetry 100 10/26/21
--- NOTE | 2021-10-26 18:49 | PC.NURSE ---
benadryl not given IV per orders. Pt took 50mg benadryl PO prior to coming to ER. returned medication to appropriate bin.
[2021-10-26 20:00] VITALS: BP 155/107; PULSE 122; RESP 14; O2SAT 100
[2021-10-26] MEDS: EPINEPHrine HCL INJ 1 MG/ML AMPUL 0.3 MG IM (20:52)
[2021-10-26] MEDS: SODIUM CHLORIDE 0.9% IV 1,000 ML 999 ML IV CONT (20:52)
[2021-10-26 21:00] VITALS: BP 136/85; PULSE 126; RESP 14; O2SAT 100
[2021-10-26 22:00] VITALS: BP 130/86; PULSE 116; RESP 14; O2SAT 100
[2021-10-26 22:55] VITALS: BP 115/91; PULSE 113; RESP 20; O2SAT 99
== END 2021-10-26 22:55 | disposition home or self-care (01) ==
PROVIDERS: Emergency Provider Emergency Medicine; PCP Family Medicine
DX: T78.40XA Allergy, unspecified, initial encounter (principal); Q79.60 Ehlers-Danlos syndrome, unspecified; Z88.5 Allergy status to narcotic agent; Z88.1 Allergy status to other antibiotic agents; Z88.8 Allergy status to other drugs, medicaments and biological substances; Z91.018 Allergy to other foods; Z87.09 Personal history of other diseases of the respiratory system; Z87.19 Personal history of other diseases of the digestive system
CPT/HCPCS: 96361; 96372; 96374; 96375; 99284; J0171; J1200; J2930; J7030

== ENCOUNTER 2021-10-28 12:37 | Observation (INO) | payer OTHER, SELFPAY ==
[2021-10-28] VITALS (27 sets, daily range): BP systolic 116–148; BP diastolic 71–99; PULSE 102–146; RESP 12–33; O2SAT 97–100; BMI 29.0
--- NOTE | ~2021-10-28 | XR_ITS ---
EXAMINATION: XR mandible min 4V INDICATION: TMJ reduction TECHNIQUE: Four views of the mandible are obtained. COMPARISON: Radiographs from 1618 hours FINDINGS: Bone alignment at the temporomandibular joints is normal. No fracture is identified. The so ft tissues are unremarkable. IMPRESSION: 1. Normal alignment at the temporomandibular joints. Reviewed, dictated and finalized at location F.
--- NOTE | ~2021-10-28 | XR_ITS ---
EXAMINATION: XR chest 1V portable DATE: 10/28/2021 13:01 INDICATION: Anaphylaxis with difficulty breathing. TECHNIQUE: frontal view of the chest was obtained. COMPARISON: Chest radiograph dated 07/01/19 FINDINGS: The lungs remain clear with no focal airspace opacities, pulmonary edema, pleural effusion or pneumot horax. The cardiomediastinal silhouette is normal. Visualized bones and soft tissues are unremarkable . IMPRESSION: 1. No acute cardiopulmonary disease. Reviewed, dictated and finalized at location B.
--- NOTE | ~2021-10-28 | XR_ITS ---
XR mandible min 4V DATE: 10/30/2021 09:00 INDICATION: Reduction of left temporal mandibular joint dislocation TECHNIQUE: 4 views COMPARISON: , 10/28/2021 mandible radiographic examinations FINDINGS: Normal alignment at the temporomandibular joints bilaterally. No mandibular fracture or dis location is detected. IMPRESSION: No evidence of temporomandibular joint dislocation Reviewed, dictated and finalized at location A.
--- NOTE | ~2021-10-28 | XR_ITS ---
EXAMINATION: XR mandible min 4V INDICATION: Temporomandibular joint dislocation TECHNIQUE: Four views of the temporomandibular joints are obtained. COMPARISON: 10/28/2021 FINDINGS: Alignment of the temporomandibular joints is anatomic. No fracture is identified. The soft tissues are unremarkable. IMPRESSION: 1. Normal radiographic alignment at the temporomandibular joints. Reviewed, dictated and finalized at location B.
--- NOTE | ~2021-10-28 | XR_ITS ---
XR mandible min 4V DATE: 10/28/2021 16:21 INDICATION: Left-sided mandibular pain. Possible dislocation 20 minutes ago. TECHNIQUE: 06/04/2021 CT facial bones 02/10/2021 mandible COMPARISON: 06/21/2021 CT facial bones 02/10/2021 mandible 09/14/2018 mandible pre- and postreduction views FINDINGS: There is anterior dislocation of the left temporomandibular joint. No mandibular fracture i s noted. IMPRESSION: Anterior dislocation at left temporal mandibular joint Reviewed, dictated and finalized at location A.
[2021-10-28] MEDS: FAMOTIDINE 20 MG/2 ML VIAL IV PUSH (12:51)
[2021-10-28] MEDS: methylPREDNISolone SOD SUCC 125 MG VIAL IV PUSH (12:51)
--- NOTE | 2021-10-28 12:53 | PC.NURSE ---
Epinephrine held per Dr. Sears's order.
[2021-10-28 12:59] LABS: Basophils Percent Auto 0.1 % (0.2-1.2); Hematocrit 38.5 % (37.0-47.0); Hemoglobin 11.9 g/dL (12.0-15.0); Immature Granulocyte Absolute 0.11 K/mm3 (0.00-0.031); Immature Granulocyte Percent A 0.7 % (0-0.5); Lymphocytes Absolute Auto 1.06 K/mm3 (0.9-3.2); Lymphocytes Percent Auto 6.7 % (18.3-44.2); Mean Corpuscular HGB Conc 30.9 g/dl (32-36); Mean Corpuscular Hemoglobin 25.8 pg (26-34); Mean Corpuscular Volume 83.5 fl (80-100); Mean Platelet Volume 9.3 fl (7.4-10.4); Monocytes Absolute Auto 0.3 K/mm3 (0.1-0.6); Monocytes Percent Auto 1.9 % (2.6-8.5); Neutrophils Absolute Auto 14.3 K/mm3 (1.3-6.7); Neutrophils Percent Auto 90.6 % (45.5-73.1); Platelet Count Result 611 k/mm3 (150-375); Red Blood Count 4.61 M/mm3 (4.2-5.4); Red Cell Distribution Width 14.2 % (11.5-14.5); White Blood Count 15.8 K/mm3 (4.5-10.0)
[2021-10-28 13:12] LABS: Alanine Aminotransferase 27 U/L (4-35); Albumin Level 5.3 g/dL (3.5-5.1); Alkaline Phosphatase 124 U/L (38-126); Anion Gap 15 mmol/L (8-16); Aspartate Amino Transferase 32 U/L (14-36); Bilirubin,Total 0.1 mg/dL (0.2-1.3); Blood Urea Nitrogen 17 mg/dL (7-17); Calcium 9.5 mg/dL (8.4-10.2); Carbon Dioxide 21 mmol/L (22-30); Chloride 103 mmol/L (98-107); Estimated CRCL calculation 130 ml/min; Estimated Glomerular Filt Rate > 60; Glucose 143 mg/dL (65-110); Potassium 3.3 mmol/L (3.4-5.0); Sodium 139 mmol/L (137-145)
[2021-10-28] MEDS: SODIUM CHLORIDE 0.9% IV 1,000 ML 999 ML IV CONT (13:18)
[2021-10-28] MEDS: EPINEPHrine HCL INJ 1 MG/ML AMPUL 0.3 MG IM ×2 (14:57→18:53)
--- NOTE | 2021-10-28 15:34 | ED.ALLEREA ---
HPI - Allergic Reaction General Chief complaint: Allergic Reaction Stated complaint: allergic reaction Time Seen by Provider: 10/28/21 12:43 History of Present Illness HPI narrative: Patient is a 31-year-old female who presents ER with concerns for anaphylaxis. Patient had just left her ambulatory care office when she started to get redness to her chest and neck and face. She developed itching of her throat and some discomfort with swallowing. She feels like her tongue is slightly enlarged as well. She gave herself epinephrine and took 50 mg of Benadryl. Patient was seen 2 days ago for similar presentation. Patient has tree nut allergies but also reports history of idiopathic anaphylaxis. Reports she has not had anything to eat today. No known exposures. Related Data Home Medications Medication Instructions Recorded Confirmed ascorbic acid (vitamin C) 1,000 mg 1 gm PO DAILY 05/15/19 10/28/21 tablet cetirizine 10 mg tablet 20 mg PO BID tablet 02/27/20 10/28/21 fluticasone propionate 50 1 spray INTRANASAL DAILY 05/18/20 10/28/21 mcg/actuation nasal spray,suspension diazepam 5 mg PO TID PRN 10/28/21 10/28/21 famotidine 20 mg PO BID 10/28/21 10/28/21 montelukast [Singulair] 10 mg PO HS 10/28/21 10/28/21 triamcinolone acetonide 1 applic DENTAL BID PRN 10/28/21 10/28/21 Allergies Allergy/AdvReac Type Severity Reaction Status Date / Time hydromorphone Allergy Intermediate Hives / Verified 10/28/21 12:54 Red Face clarithromycin Allergy Mild N/V Verified 10/28/21 12:54 hydrocodone Allergy Mild Itching Verified 10/28/21 12:54 meperidine Allergy Mild Nausea and Verified 10/28/21 12:54 Vomiting azithromycin Allergy Unknown N/V, Verified 10/28/21 12:54 DIARRHEA, ABD CRAMPING. duloxetine Allergy Unknown BULGING Verified 10/28/21 12:54 EYES ondansetron Allergy Unknown PROLONGED Verified 10/28/21 12:54 QT albuterol Allergy Difficulty Verified 10/28/21 13:24 Breathing ENERGY DRINKS Allergy Mild ORAL Uncoded 06/04/21 19:37 SWELLING WATERMELON-LEMON MOHEGAN SLURPY Allergy Mild ORAL Uncoded 06/04/21 19:37 SWELLING Review of Systems Review of Systems: All systems reviewed & are unremarkable except as noted in HPI and below Constitutional: Constitutional: Denies chills, Denies fever(s) and Denies weakness ENT: Denies nasal congestion and Reports sore throat Comments: Swelling of the tongue/throat Cardiovascular: Cardiovascular: Denies chest pain, Reports rapid heart rate and Denies radiating jaw, neck or arm pain Respiratory: Respiratory: Denies cough, Reports dyspnea and Denies wheezing Gastrointestinal: Gastrointestinal: Denies abdominal pain, Denies diarrhea, Denies nausea and Denies vomiting Genitourinary: Genitourinary: Denies nocturia, Denies dysuria and Denies flank pain Integumentary/Breasts: Skin/Breast: Reports pruritus, Reports erythema and Reports rash PMF Past Medical History Medical History (Updated 10/28/21 @ 19:23 by Mariah Griffiths PA-C) Anxiety Asthma 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 Irritable bowel syndrome with constipation Mononucleosis (05/2019) Postural orthostatic tachycardia syndrome Scapular dyskinesis Surgical History Surgical History (Updated 10/28/21 @ 19:19 by Mariah Griffiths PA-C) History of arthroscopy of right knee History of endoscopy History of tonsillectomy Tarsal tunnel syndrome, left lower limb [place] teeth extracted Family History Family History (Updated 10/28/21 @ 19:19 by Mariah Griffiths PA-C) Other Adopted Social History Social History (Updated 10/28/21 @ 19:21 by Mariah Griffiths PA-C) Social History: Surrogate decision maker: Armand Koenig, . Code status: Full code. Smoking status: Never smoker Second hand tobacco smoke exposure: No Alcohol intake: current Alcohol use details: Rare alco
--- NOTE | 2021-10-28 15:45 | PC.NURSE ---
Patient states she just dislocated her jaw. Patient reports this frequently happens. JESENIA Vasquez notified.
[2021-10-28] MEDS: diazePAM INJ (*CRX) 10 MG/2 ML SYRINGE 5 MG IV PUSH (17:09)
--- NOTE | 2021-10-28 17:20 | PC.NURSE ---
JESENIA Pedro in room for jaw relocation. Repeat X-ray ordered.
--- NOTE | 2021-10-28 17:30 | PM.IMHP ---
H&P: HPI History of Present Illness Date/Time: 10/28/21 17:30 Chief Complaint: Allergic reaction, used EpiPen. 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 She was seen in the emergency department 2 days ago with a presumed allergic reaction with symptoms to include pruritus, erythema, tongue swelling, and itching throat. She was given a dose of epinephrine, antihistamines, and steroids in the ER with improvement her symptoms and she was discharged home 4.5 hours thereafter after she remained stable. She had a follow-up appointment with her manager data today and all was well during the visit however not long after leaving she developed a sporadic rash, hives, and itching throat. She used her EpiPen and came to the ER where she was given methylprednisolone and famotidine in addition to 2 more doses of epinephrine. Within a couple of hours her symptoms returned and it was felt that she should be admitted overnight for observation. While still in the ER she had a spontaneous dislocation of the left temporomandibular joint which was reduced per Dr. Vasquez. Patient states that is not unusual for her to have dislocations due to her Sunday-Danlos. At the time of my re-evaluation she is resting comfortably and denies lightheadedness, scratchy throat, shortness of breath, chest pain, nausea, and vomiting. Review of Systems Review of Systems: Twelve systems were reviewed. No recent cold or flu symptoms. No fever, chills, or sweats. No sick contacts. Except as documented, all other systems were reviewed and are negative. 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 Irritable bowel syndrome with constipation Mononucleosis (05/2019) Postural orthostatic tachycardia syndrome Scapular dyskinesis Surgical History Surgical History (Updated 10/28/21 @ 19:19 by Mariah Griffiths PA-C) History of arthroscopy of right knee History of endoscopy History of tonsillectomy Tarsal tunnel syndrome, left lower limb [place] teeth extracted Family History Family History (Updated 10/28/21 @ 19:19 by Mariah Griffiths PA-C) Other Adopted Social History Social History (Updated 10/28/21 @ 19:21 by Mariha Griffiths PA-C) Social History: Surrogate decision maker: Armand Koenig, . Code status: Full code. Smoking status: Never smoker Second hand tobacco smoke exposure: No Alcohol intake: current Alcohol use details: Rare alcohol use in moderation. Substance use: never Substance use type: does not use Additional living arrangements comments: Lives in [place] with her . No children. She is adopted. 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 Spiritual care concerns: No Meds Home Medications and Allergies Home Medications Medication Instructions Recorded Confirmed Type ascorbic acid (vitamin C) 1,000 mg 1 gm PO DAILY 05/15/19 10/15/21 History tablet famotidine 40 mg PO DAILY #30 tablet 07/01/19 10/15/21 Rx cetirizine 10 mg tablet 10 mg PO BID tablet 02/27/20 10/15/21 History fluticasone propionate 50 1 spray INTRANASAL DAILY 05/18/20 10/15/21 History mcg/actuation nasal spray,suspension Vitassium 1 tab-cap BYMOUTH DAILY PRN 11/10/20 10/15/21 History epinephrine 0.3 mg IM Q5-15M PRN #2 ea 06/04/21 10/15/21 Rx prednisone 50 mg PO DAILY #4 tablet 06/04/21 10/15/21 Rx ergocalciferol (vitamin D2) 1,250 1,250 mcg PO WEEKLY #12 cap 06/23/21 10/15/21 Rx mcg (50,000 unit) capsule cyclobenzaprine 5 mg tablet 5 mg PO TID PRN #90 tablet 09/19/21 10/15/21 Rx metocloprami
--- NOTE | 2021-10-28 17:57 | ADMGEN ---
This patient, Rosangela Koenig, was admitted to Intensive Care Unit-3. Patient/family oriented to hospital policies and general routines including ID bracelet, bed and alarms, visiting hours, pain management, procedures, bathroom and other care routines, personal items, smoking policy, room service/diet, and visiting hours. Information on how to activate the Rapid Response Team has been discussed. Patient/Family are encouraged to report perceived risks to care and to ask questions if they do not understand what they are told or what they should do.
[2021-10-28] MEDS: SODIUM CHLORIDE 0.9% IV 1,000 ML 125 ML IV CONT (18:38)
[2021-10-28] MEDS: methylPREDNISolone SOD SUCC 125 MG VIAL 60 MG IV PUSH ×2 (18:41→23:07)
[2021-10-28] MEDS: diphenhydrAMINE HCl INJ 50 MG/ML VIAL 25 MG IV PUSH ×2 (18:42→22:42)
[2021-10-28] MEDS: POTASSIUM CHLORIDE 20 MEQ TABLET PO (20:30)
[2021-10-28] MEDS: METOCLOPRAMIDE HCL INJ 10 MG/2 ML VIAL IV PUSH (20:30)
[2021-10-28] MEDS: FAMOTIDINE 20 MG/2 ML VIAL 40 MG IV PUSH (20:34)
[2021-10-28] MEDS: MONTELUKAST SODIUM 10 MG TABLET PO (23:05)
[2021-10-28] MEDS: LORATADINE 10 MG TABLET 20 MG PO (23:06)
[2021-10-29] VITALS (15 sets, daily range): BP systolic 110–156; BP diastolic 75–108; PULSE 80–133; RESP 16–22; TEMP 36.4–36.8; O2SAT 95–100
[2021-10-29] MEDS: SODIUM CHLORIDE 0.9% IV 1,000 ML 125 ML IV CONT ×2 (03:01→12:36)
[2021-10-29 05:07] LABS: Basophils Percent Auto 0.1 % (0.2-1.2); Hematocrit 31.4 % (37.0-47.0); Hemoglobin 9.7 g/dL (12.0-15.0); Immature Granulocyte Absolute 0.06 K/mm3 (0.00-0.031); Immature Granulocyte Percent A 0.6 % (0-0.5); Lymphocytes Absolute Auto 0.96 K/mm3 (0.9-3.2); Lymphocytes Percent Auto 9.3 % (18.3-44.2); Mean Corpuscular HGB Conc 30.9 g/dl (32-36); Mean Corpuscular Volume 84.2 fl (80-100); Mean Platelet Volume 9.5 fl (7.4-10.4); Monocytes Absolute Auto 0.3 K/mm3 (0.1-0.6); Monocytes Percent Auto 3.2 % (2.6-8.5); Neutrophils Percent Auto 86.8 % (45.5-73.1); Platelet Count Result 382 k/mm3 (150-375); Red Blood Count 3.73 M/mm3 (4.2-5.4); Red Cell Distribution Width 14.1 % (11.5-14.5); White Blood Count 10.3 K/mm3 (4.5-10.0)
[2021-10-29 05:25] LABS: Alanine Aminotransferase 17 U/L (4-35); Albumin Level 3.8 g/dL (3.5-5.1); Alkaline Phosphatase 73 U/L (38-126); Anion Gap 7 mmol/L (8-16); Aspartate Amino Transferase 24 U/L (14-36); Bilirubin,Total 0.3 mg/dL (0.2-1.3); Blood Urea Nitrogen 12 mg/dL (7-17); Calcium 8.5 mg/dL (8.4-10.2); Carbon Dioxide 22 mmol/L (22-30); Chloride 108 mmol/L (98-107); Estimated CRCL calculation 186 ml/min; Estimated Glomerular Filt Rate > 60; Glucose 117 mg/dL (65-110); Potassium 4.3 mmol/L (3.4-5.0); Sodium 137 mmol/L (137-145)
[2021-10-29 06:04] LABS: Thyroid Stimulating Hormone Reflex 0.253 uIU/mL (0.465-4.68)
[2021-10-29] MEDS: methylPREDNISolone SOD SUCC 125 MG VIAL 60 MG IV PUSH ×3 (06:09→17:02)
[2021-10-29 07:36] LABS: Free T4 Free Thyroxine Reflex 1.16 ng/dL (0.78-2.19)
[2021-10-29] MEDS: diazePAM INJ (*CRX) 10 MG/2 ML SYRINGE 5 MG IV PUSH ×2 (08:22→11:21)
[2021-10-29] MEDS: MORPHINE SULFATE (*CRX) 2 MG/ML INJ IV PUSH ×5 (08:24→15:10)
--- NOTE | 2021-10-29 08:53 | WPDCNINT ---
Assessment and Plan Assessment and plan (1) Idiopathic anaphylaxis: Code(s): T78.2XXA - Anaphylactic shock, unspecified, initial encounter Status: Acute Assessment and Plan: Seems to have improved at this time patient is asymptomatic Tryptase levels ordered and admission and is pending Will continue Solu-Medrol and famotidine through today Continue monitoring and Continue p.r.n. epinephrine if needed (2) Dislocated jaw: Code(s): S03.00XA - Dislocation of jaw, unspecified side, initial encounter Status: Acute Assessment and Plan: I requested the ER physician Dr. Witt for assistance but he was unable to reduce TMJ dislocation. I have consulted ENT for assistance. I spoke to Dr. Salas who recommended consulting Dr. Barrios. Dr. Crum who has evaluated the patient and will come back later to reduce dislocation. I have given patient morphine and Valium for pain and muscle relaxation meanwhile Will Check mandible x-ray post reduction confirm adequate placement Patient will call her to bring in her appliance that she uses to prevent dislocation (3) Leukocytosis: Code(s): D72.829 - Elevated white blood cell count, unspecified Status: Acute Assessment and Plan: Likely secondary to epinephrine and steroids Improved (4) Hypokalemia: Code(s): E87.6 - Hypokalemia Status: Acute Assessment and Plan: Resolved with replacement Additional Plan DVT prophylaxis -SCDs while in bed Stress ulcer prophylaxis -on Pap Nutrition -regular diet Code Status - Full Code Transfer out of ICU today once her mandible is reduced Associate Director Of Nursing Consult Note Consult date: 10/29/21 HPI: Rosangela Koenig is a 31 year old female with history idiopathic anaphylaxis, 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 She was seen in the emergency department 2 days ago with a presumed allergic reaction with symptoms to include pruritus, erythema, tongue swelling, and itching throat. She was given a dose of epinephrine, antihistamines, and steroids in the ER with improvement her symptoms and she was discharged home 4.5 hours thereafter after she remained stable. She had a follow-up appointment with her rn neonatal icu today and all was well during the visit however not long after leaving she developed a sporadic rash, hives, and itching throat. She used her EpiPen and came to the ER where she was given methylprednisolone and famotidine in addition to 2 more doses of epinephrine. She was admitted to ICU for further evaluation and close monitoring. 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 She states that her last dislocation Will 1 week ago as she often says goes to ER for reduction. She sees a specialist in [place] and wears an appliance to prevent dislocation. Her TM joint dislocation was reduced in the ER yesterday. This morning patient complains of recurrence of her dislocation of jaw. She states it happened around 8:00 a.m. this morning spontaneous. She feels that she slept on the wrong side of the bed and may have led to this. She complains of achy pain in her jaw of which 9/10 severe. She is unable to move or open her jaw further. Pain does not radiate anywhere was there is no relieving factors and is worsened by trying to open her jaw. She denies any other complaints. She states her symptoms of anaphylaxis that she presented with have resolved. She denies any rash, itching in the throat, feeling of swelling in the throat or shortness of breath. No chest pain palpitation. Other systems were reviewed and were negat
[2021-10-29 08:57] LABS: Total Triiodothyronine (T3) 0.77 NG/ML (0.97-1.69)
[2021-10-29] MEDS: FAMOTIDINE 20 MG/2 ML VIAL 40 MG IV PUSH ×2 (11:06→20:11)
--- NOTE | 2021-10-29 11:19 | PHAR ---
SPOKE WITH DR. YADAV ABOUT PATIENT'S DILAUDID ALLERGY SINCE MORPHINE WAS ORDERED AND HE SAID THAT SHE HAS HAD MORPHINE IN THE PAST WITH NO ADR
--- NOTE | 2021-10-29 14:08 | PM.IMPN ---
Progress Note: A&P Assessment and Plan (1) Idiopathic anaphylaxis: Code(s): T78.2XXA - Anaphylactic shock, unspecified, initial encounter Status: Acute Assessment and Plan: Much improved. Mild rash noted. Tryptase level has been ordered. Continue Solu-Medrol, famotidine and claritin. Continue to monitor. Does have epinephrine PRN available. Check test. Appreciate import export coordinator input. (2) Dislocated jaw: Code(s): S03.00XA - Dislocation of jaw, unspecified side, initial encounter Status: Acute Assessment and Plan: Patient had spontaneous dislocation in the ED on admission that was reduced. Patient has had spontaneous dislocation again. Her pain was treated. ER physician unable to reduce TMJ dislocation so ENT consulted. XRay ordered. Appreciate ENT help. (3) Leukocytosis: Code(s): D72.829 - Elevated white blood cell count, unspecified Status: Acute Assessment and Plan: White count 15.8K secondary to recent steroids. WBC is trending downward. Follow. (4) Hypokalemia: Code(s): E87.6 - Hypokalemia Status: Acute Assessment and Plan: Mild hypokalemia that was replaced. Follow (5) Anemia: Code(s): D64.9 - Anemia, unspecified Status: Acute Assessment and Plan: Nml baseline Hgb. Hgb 11.9 on admisison but has dropped to 9.7 today. Will stop IV fluids. Check iron studies, etc. Continue Pepcid. TSH noted but FT4 normal. Repeat after discharge. 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 As above (7) DVT prophylaxis: Code(s): Z29.9 - Encounter for prophylactic measures, unspecified Status: Acute Assessment and Plan: SCDs Subjective Date/time seen: 10/29/21 14:08 Interval history: 31yo female with POTS, Sunday-Danlos and Idiopathic anaphylaxis here for and allergic reaction and had a spontaneous dislocation of her jaw. The jaw was reduced in the ED. this morning however, the patient did have her jaw dislocated again while doing her cervical spine exercises. She feels better from her allergic reaction symptoms but now is having the jaw pain from the dislocation. Exam Narrative: AF 97.6 125/83 104 20 100% ra Gen - NARD HEENT - jaw is deviated to the right Chest - CTA bilaterally, nml RR CV - RRR S1/S2.Telemetry showing no significant dysrhythmias Abd - Soft, NT/ND, Positive BS Ext - No pedal edema Neuro - Alert and oriented. Nonfocal exam. Psych - Nml mood and affect Skin - Warm and dry. splotchy red patches noted in her upper chest, neck and back. Objective Data Vital Signs Vital Signs: Vital Signs - 24 hr 10/28/21 14:19 10/28/21 14:30 10/28/21 14:45 Temperature Pulse Rate 129 H 105 H 143 H Respiratory Rate 20 16 25 H Blood Pressure Pulse Oximetry 100 100 10/28/21 14:46 10/28/21 15:00 10/28/21 15:40 Temperature Pulse Rate 134 H 125 H 129 H Respiratory Rate 33 H 21 H 14 Blood Pressure 144/90 H Pulse Oximetry 100 100 100 10/28/21 15:45 10/28/21 15:46 10/28/21 16:00 Temperature Pulse Rate 131 H 126 H 129 H Respiratory Rate 16 12 22 H Blood Pressure 123/86 Pulse Oximetry 100 100 100 10/28/21 16:22 10/28/21 16:30 10/28/21 17:01 Temperature Pulse Rate 120 H 127 H 134 H Respiratory Rate 26 H 13 17 Blood Pressure Pulse Oximetry 100 100 100 10/28/21 17:15 10/28/21 18:00 10/28/21 20:00 Temperature Pulse Rate 126 H 133 H 114 H Respiratory Rate 17 24 H 21 H Blood Pressure 138/92 H 137/91 H Pulse Oximetry 100 100 98 10/28/21 22:00 10/29/21 00:00 10/29/21 02:00 Temperature 98.2 F Pulse Rate 102 H 80 94 Respiratory Rate 22 H Blood Pressure 116/75 111/79 130/86 Pulse Oximetry 97 97 97 10/29/21 03:54 10/29/21 04:00 10/29/21 06:00 Temperature Pulse Rate 8
--- NOTE | 2021-10-29 14:44 | WPDCN ---
Assessment and Plan Assessment and plan (1) Dislocated jaw: Code(s): S03.00XA - Dislocation of jaw, unspecified side, initial encounter Status: Acute Assessment and Plan: Benzodiazepine given, patient largely able to reduce on her own, I merely helped guide it into place. Great occlusion and movement following reduction. Recommend urgent follow up with patient's tmj specialist in [place] when discharged. Please keep jaw bra on. Soft diet only. Minimal mouth opening is ideal. HPI Data of Consult Date/Time: 10/29/21 14:44 Requesting Physician: Bryan Batista MD Primary Care Provider: Shannan Maldonado MD Consult Narrative Narrative: Rosangela Koenig is a 31 year old female with a past medical history of urmila danlos. Multiple tmj dislocations in the past. ENT consulted for reduction. 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 Irritable bowel syndrome with constipation Mononucleosis (05/2019) Postural orthostatic tachycardia syndrome Scapular dyskinesis Surgical History Surgical History History of arthroscopy of right knee History of endoscopy History of tonsillectomy Tarsal tunnel syndrome, left lower limb [place] teeth extracted Family History Family History Other Adopted Social History Social History Social History: Surrogate decision maker: Armand Koenig, . Code status: Full code. Smoking status: Never smoker Second hand tobacco smoke exposure: No Alcohol intake: current Alcohol use details: Rare alcohol use in moderation. Substance use: never Substance use type: does not use Additional living arrangements comments: Lives in [place] with her . No children. She is adopted. 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 Spiritual care concerns: No Meds Home Medications and Allergies Home Medications Medication Instructions Recorded Confirmed Type ascorbic acid (vitamin C) 1,000 mg 1 gm PO DAILY 05/15/19 10/28/21 History tablet cetirizine 10 mg tablet 20 mg PO BID tablet 02/27/20 10/28/21 History fluticasone propionate 50 1 spray INTRANASAL DAILY 05/18/20 10/28/21 History mcg/actuation nasal spray,suspension ergocalciferol (vitamin D2) 1,250 1,250 mcg PO WEEKLY #12 cap 06/23/21 10/29/21 Rx mcg (50,000 unit) capsule cyclobenzaprine 5 mg tablet 5 mg PO TID PRN #90 tablet 09/19/21 10/28/21 Rx tramadol 50 mg tablet 50 mg PO Q6H PRN #60 tablet 10/14/21 10/28/21 Rx epinephrine 0.3 mg IM Q5-15M PRN #2 ea 10/26/21 10/28/21 Rx diazepam 5 mg PO TID PRN 10/28/21 10/28/21 History famotidine 20 mg PO BID 10/28/21 10/28/21 History montelukast [Singulair] 10 mg PO HS 10/28/21 10/28/21 History triamcinolone acetonide 1 applic DENTAL BID PRN 10/28/21 10/28/21 History Allergies Allergy/AdvReac Type Severity Reaction Status Date / Time hydromorphone Allergy Intermediate Hives / Verified 10/28/21 12:54 Red Face clarithromycin Allergy Mild N/V Verified 10/28/21 12:54 hydrocodone Allergy Mild Itching Verified 10/28/21 12:54 meperidine Allergy Mild Nausea and Verified 10/28/21 12:54 Vomiting azithromycin Allergy Unknown N/V, Verified 10/28/21 12:54 DIARRHEA, ABD CRAMPING. duloxetine Allergy Unknown BULGING Verified 10/28/21 12:54 EYES ondansetron Allergy Unknown PROLONGED Verified 10/28/21 12:54 QT albuterol Allergy Difficulty Verified 10/28/21 13:24 Breathing ENERGY DRINKS Allergy Mild ORAL Uncoded 12/0
[2021-10-29] MEDS: MIDAZOLAM HCL (*CRX) 2 MG/2 ML VIAL 4 MG IV PUSH (14:53)
[2021-10-29 15:02] LABS: SPREG INTERNAL CONTROL Positive; Serum Qual hCG Negative
[2021-10-29] MEDS: LORATADINE 10 MG TABLET 20 MG PO ×2 (15:28→20:11)
[2021-10-29] MEDS: ASCORBIC ACID 500 MG TABLET 1000 MG PO (15:29)
[2021-10-29] MEDS: FLUTICASONE PROPIONATE 0.05% NA SPR 16 GM BTL (*BKC) 1 SPRAY NASAL (15:31)
[2021-10-29] MEDS: diphenhydrAMINE HCl INJ 50 MG/ML VIAL 25 MG IV PUSH ×2 (16:09→20:10)
[2021-10-29] MEDS: MONTELUKAST SODIUM 10 MG TABLET PO (20:11)
[2021-10-29] MEDS: diazePAM (*CRX) 5 MG TABLET PO (20:11)
[2021-10-30] VITALS: PULSE 88
[2021-10-30 02:00] VITALS: PULSE 79; RESP 18; O2SAT 97
[2021-10-30 04:00] VITALS: BP 106/71; PULSE 67; PULSE 71; PULSE 86; RESP 18; TEMP 36.6; O2SAT 97; O2SAT 98
[2021-10-30 04:40] LABS: Basophils Percent Auto 0.1 % (0.2-1.2); Hematocrit 33.3 % (37.0-47.0); Hemoglobin 10.4 g/dL (12.0-15.0); Immature Granulocyte Absolute 0.13 K/mm3 (0.00-0.031); Immature Granulocyte Percent A 0.9 % (0-0.5); Lymphocytes Absolute Auto 1.49 K/mm3 (0.9-3.2); Lymphocytes Percent Auto 10.3 % (18.3-44.2); Mean Corpuscular HGB Conc 31.2 g/dl (32-36); Mean Corpuscular Hemoglobin 26.1 pg (26-34); Mean Corpuscular Volume 83.7 fl (80-100); Mean Platelet Volume 9.1 fl (7.4-10.4); Monocytes Absolute Auto 0.9 K/mm3 (0.1-0.6); Monocytes Percent Auto 6.3 % (2.6-8.5); Neutrophils Absolute Auto 11.9 K/mm3 (1.3-6.7); Neutrophils Percent Auto 82.4 % (45.5-73.1); Platelet Count Result 422 k/mm3 (150-375); Red Blood Count 3.98 M/mm3 (4.2-5.4); Red Cell Distribution Width 13.9 % (11.5-14.5); White Blood Count 14.4 K/mm3 (4.5-10.0)
[2021-10-30 04:55] LABS: Anion Gap 5 mmol/L (8-16); Blood Urea Nitrogen 16 mg/dL (7-17); Carbon Dioxide 26 mmol/L (22-30); Chloride 105 mmol/L (98-107); Estimated CRCL calculation 150 ml/min; Estimated Glomerular Filt Rate > 60; Glucose 114 mg/dL (65-110); Sodium 136 mmol/L (137-145)
[2021-10-30 05:52] LABS: Iron 28 ug/dL (37-170)
[2021-10-30 06:00] VITALS: BP 110/83; PULSE 95; RESP 18; O2SAT 99
[2021-10-30 06:00] LABS: Percent Iron Saturation 7 % (20-50)
[2021-10-30 06:25] LABS: Ferritin 8.35 ng/mL (6.24-137); Thyroid Stimulating Hormone Reflex 0.146 uIU/mL (0.465-4.68)
[2021-10-30 07:12] LABS: Free T4 Free Thyroxine Reflex 1.03 ng/dL (0.78-2.19)
[2021-10-30 08:00] VITALS: BP 130/97; PULSE 101; PULSE 99; RESP 18; TEMP 36.5; O2SAT 100
[2021-10-30] MEDS: FAMOTIDINE 20 MG/2 ML VIAL 40 MG IV PUSH (08:00)
[2021-10-30] MEDS: FLUTICASONE PROPIONATE 0.05% NA SPR 16 GM BTL (*BKC) 1 SPRAY NASAL (08:04)
[2021-10-30] MEDS: ASCORBIC ACID 500 MG TABLET 1000 MG PO (08:05)
[2021-10-30] MEDS: LORATADINE 10 MG TABLET 20 MG PO (08:05)
[2021-10-30] MEDS: MORPHINE SULFATE (*CRX) 2 MG/ML INJ IV PUSH (08:24)
--- NOTE | 2021-10-30 08:27 | ED.GENADULT ---
HPI - General Adult General Chief complaint: Allergic Reaction Stated complaint: allergic reaction Time Seen by Provider: 10/28/21 12:43 History of Present Illness HPI narrative: Patient is currently admitted to the ICU for anaphylaxis. Patient does have history of recurrent left-sided jaw dislocation. This has happened twice during her stay in the hospital. Patient states this has occurred a third time, ENT is unavailable. ICU physician requested my help in reducing the jaw dislocation. Related Data Home Medications Medication Instructions Recorded Confirmed ascorbic acid (vitamin C) 1,000 mg 1 gm PO DAILY 05/15/19 10/28/21 tablet cetirizine 10 mg tablet 20 mg PO BID tablet 02/27/20 10/28/21 fluticasone propionate 50 1 spray INTRANASAL DAILY 05/18/20 10/28/21 mcg/actuation nasal spray,suspension diazepam 5 mg PO TID PRN 10/28/21 10/28/21 famotidine 20 mg PO BID 10/28/21 10/28/21 montelukast [Singulair] 10 mg PO HS 10/28/21 10/28/21 triamcinolone acetonide 1 applic DENTAL BID PRN 10/28/21 10/28/21 Allergies Allergy/AdvReac Type Severity Reaction Status Date / Time hydromorphone Allergy Intermediate Hives / Verified 10/28/21 12:54 Red Face clarithromycin Allergy Mild N/V Verified 10/28/21 12:54 hydrocodone Allergy Mild Itching Verified 10/28/21 12:54 meperidine Allergy Mild Nausea and Verified 10/28/21 12:54 Vomiting azithromycin Allergy Unknown N/V, Verified 10/28/21 12:54 DIARRHEA, ABD CRAMPING. duloxetine Allergy Unknown BULGING Verified 10/28/21 12:54 EYES ondansetron Allergy Unknown PROLONGED Verified 10/28/21 12:54 QT albuterol Allergy Difficulty Verified 10/28/21 13:24 Breathing ENERGY DRINKS Allergy Mild ORAL Uncoded 06/04/21 19:37 SWELLING [place]EL[place] SLURPY Allergy Mild ORAL Uncoded 06/04/21 19:37 SWELLING Review of Systems Review of Systems: M CONSTITUTIONAL: Denies fever, chills, or sweats. EYES: Denies visual changes, redness, or discharge. ENT: Left jaw dislocation CARDIOVASCULAR: Denies chest pain, palpitations, or edema. RESPIRATORY: Denies cough or dyspnea. GASTROINTESTINAL: Denies abdominal pain, nausea, vomiting, or diarrhea. GENITOURINARY: Denies dysuria or hematuria. SKIN: Denies rash or itching. MUSCULOSKELETAL: Denies back pain, joint pain, or myalgia. NEUROLOGIC: Denies headache, numbness, or weakness. PSYCHIATRIC: Denies anxiety or depression. 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 Irritable bowel syndrome with constipation Mononucleosis (05/2019) Postural orthostatic tachycardia syndrome Scapular dyskinesis Surgical History Surgical History History of arthroscopy of right knee History of endoscopy History of tonsillectomy Tarsal tunnel syndrome, left lower limb [place] teeth extracted Family History Family History Other Adopted Social History Social History Social History: Surrogate decision maker: Armand Koenig, . Code status: Full code. Smoking status: Never smoker Second hand tobacco smoke exposure: No Alcohol intake: current Alcohol use details: Rare alcohol use in moderation. Substance use: never Substance use type: does not use Additional living arrangements comments: Lives in [place] with her . No children. She is adopted. 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 Spiritual care concerns: No Exam Narrative: APPEARANCE: Well appearing, no pain, no distress, well-nourished. HEAD: norm
[2021-10-30] MEDS: MIDAZOLAM HCL (*CRX) 2 MG/2 ML VIAL 4 MG IV PUSH (08:34)
--- NOTE | 2021-10-30 09:29 | WPDINTPN ---
Progress Note: A&P Assessment and Plan (1) Idiopathic anaphylaxis: Code(s): T78.2XXA - Anaphylactic shock, unspecified, initial encounter Status: Acute Assessment and Plan: Seems to have improved at this time patient is asymptomatic Tryptase levels ordered and admission and is pending Will continue Solu-Medrol and famotidine through today Continue monitoring and Continue p.r.n. epinephrine if needed (2) Dislocated jaw: Code(s): S03.00XA - Dislocation of jaw, unspecified side, initial encounter Status: Acute Assessment and Plan: Patient has history of recurrent dislocation of her mandible mostly at the left TMJ. It was reduced in ER by Dr. Vasquez on presentation. 10/29 she had another dislocation. I requested the ER physician Dr. Witt for assistance but he was unable to reduce TMJ dislocation. I have consulted ENT for assistance. I spoke to Dr. Salas who recommended consulting Dr. Barrios. She was given couple of doses of Valium for muscle relaxation and morphine for pain. Dr. Barrios reduced it and patient was given 4 mg of Versed prior to that I checked mandible x-ray post reduction and confirmed adequate placement Patient was going to call her to bring in her appliance that he never brought it to the hospital. Patient also took her drop brace off This morning she had recurrence of dislocation and I spoke to Dr. Willard from ER. Patient was given 4 mg of Versed again and dislocation was reduced at bedside without significant difficulty. Patient is feeling now better. I have repeated a mandible x-ray and report is pending (3) Leukocytosis: Code(s): D72.829 - Elevated white blood cell count, unspecified Status: Acute Assessment and Plan: Likely secondary to epinephrine and steroids (4) Hypokalemia: Code(s): E87.6 - Hypokalemia Status: Acute Assessment and Plan: Resolved with replacement (5) Abnormal thyroid blood test: Code(s): R79.89 - Other specified abnormal findings of blood chemistry Status: Acute Assessment and Plan: Patient's TSH is low, T4 was normal and T3 is low Since we do not have an power system operator staff here at [facility], I have discussed these findings with patient and recommended that she gets retested as an outpatient once she is feeling better Additional Plan DVT prophylaxis -SCDs while in bed, patient is ambulating otherwise Stress ulcer prophylaxis -on Pepcid Nutrition -regular diet Code Status - Full Code Transfer out of ICU today Subjective Date/time seen: 10/30/21 09:29 Patient states she is feeling much better as compared to yesterday. She states that she did not had any symptoms overnight except a brief period of a rash on her chest which went away spontaneously. Patient denied fever, chest pain, shortness of breath, cough, nausea vomiting, abdominal pain,, diarrhea, headache or constipation. All other systems were reviewed and were negative After my initial interview patient nurse reported the patient has again dislocated her jaw while brushing her teeth. At that time patient complained of pain 8 to 9/10. Interval history: 31yo female with POTS, Sunday-Danlos and Idiopathic anaphylaxis here for and allergic reaction and had a spontaneous dislocation of her jaw. Review of Systems Review of Systems: All systems reviewed & are unremarkable except as noted in HPI and below (HPI) Exam Narrative: General: Pt is alert awake and in NAD Lungs/Chest: Trachea central Clear BS B/L, No crackles or wheezing. Cardiac: RRR. Normal S1 S2. No murmurs Circulation: Pedal pulses are intact and symmetrical. Abdomen: Normal bowel sounds.. Soft. NT. ND. Extremities: No clubbing, cyanosis or edema. Warm : [place]am[place] in place Neurologic: Follows commands. Moves all 4 extremities PERRL Skin: No Rash seen on chest or arms HEENT: Lower jaw is deviated towards patient's right side and patient unab
[2021-10-30] MEDS: diphenhydrAMINE HCl INJ 50 MG/ML VIAL 25 MG IV PUSH (09:59)
[2021-10-30 10:00] VITALS: BP 130/97; PULSE 91; PULSE 94; RESP 20; O2SAT 100
[2021-10-30] MEDS: predniSONE 20 MG TABLET 60 MG PO (11:32)
--- NOTE | 2021-10-30 17:23 | PM.DS ---
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 She had a reaction to an unknown stimulant and had to use her EpiPen. She had been in the ER couple days prior with symptoms of pruritus, erythema, tongue swelling itchy throat. At that time she was given epinephrine, and his knees and steroids. She improved well and was discharged from the ER home. She then saw the safety analyst in shortly after leaving the visit she developed another rash as well as itchy throat. She can use her EpiPen and came to the ER. She was given steroids, famotidine and 2 more doses of epinephrine. Although she resolved quickly, due to this being the 2nd episode of short period of time, she was admitted overnight for observation. She did have a spontaneous dislocation of her TMJ which is typical for her. She does have a brace at home that she did not bring with her to the ER. During her observation stay, she had no recurrence of symptoms. She was given IV steroids, H2 blockers and symptoms were resolved at discharge. Status at Discharge Functional status at discharge: independent ambulation Time Spent with Patient Time attestation: Total time spent providing and/or coordinating discharge services: Greater than 30 minutes Time spent: Greater than 30 minutes Exam Const: General: no acute distress HENMT: Mouth: Yes moist mucous membranes Eyes: General: appearance normal, both eyes and all related structures Neck: Neck: no JVD Resp: Auscultation: clear to auscultation bilaterally Cardio: Rate: regular rate Rhythm: regular rhythm GI: GI Palp: Yes Soft to palpation and No Tenderness to palpation present (GI) Skin: General skin exam: rashes and/or lesions noted Other: Erythematous blotches noted in bilateral face Psych: Mental Status: mental status grossly normal DS: Data Data Completed and Pending Labs on day of discharge: Labs from last 24 hours 10/30/21 10/30/21 10/30/21 04:33 04:33 04:33 WBC RBC Hgb Hct MCV MCH MCHC RDW Plt Count MPV Immature Gran % (Auto) Neut % (Auto) Lymph % (Auto) [place] % (Auto) Eos % (Auto) Baso % (Auto) Lymph # (Auto) [place] # (Auto) Eos # (Auto) Baso # (Auto) Abs Immat Gran (auto) Absolute Neuts (auto) Absolute Nucleated RBC Nucleated RBC % Sodium 136 L Potassium 4.0 Chloride 105 Carbon Dioxide 26 Anion Gap 5 L BUN 16 Creatinine 0.50 L Estim Creat Clear Calc 150 Estimated GFR > 60 Glucose 114 H Calcium 9.0 Iron 28 L TIBC 412 % Saturation 7 L Ferritin 8.35 Vitamin B12 758.0 Folate 18.0 TSH (Reflex) 0.146 L Free T4 1.03 10/30/21 04:33 WBC 14.4 H RBC 3.98 L Hgb 10.4 L Hct 33.3 L MCV 83.7 MCH 26.1 MCHC 31.2 L RDW 13.9 Plt Count 422 H MPV 9.1 Immature Gran % (Auto) 0.9 H Neut % (Auto) 82.4 H Lymph % (Auto) 10.3 L [place] % (Auto) 6.3 Eos % (Auto) 0.0 Baso % (Auto) 0.1 L Lymph # (Auto) 1.49 [place] # (Auto) 0.9 H Eos # (Auto) 0.0 Baso # (Auto) 0.0 Abs Immat Gran (auto) 0.13 H Absolute Neuts (auto) 11.9 H
== END 2021-10-30 14:19 | disposition home or self-care (01) ==
LOC: ANHED 13:07 → ANHICU 16:30
PROVIDERS: Physician Assistant; Admitting Provider Internal Medicine; Emergency Provider Emergency Medicine; PCP Family Medicine; Visit Provider Student in an Organized Health Care Education/Training Program
DX: T78.2XXA Anaphylactic shock, unspecified, initial encounter (principal); M26.69 Other specified disorders of temporomandibular joint; S03.02XA Dislocation of jaw, left side, initial encounter; D72.829 Elevated white blood cell count, unspecified; E87.6 Hypokalemia; D64.9 Anemia, unspecified; R79.89 Other specified abnormal findings of blood chemistry; X58.XXXA Exposure to other specified factors, initial encounter; Q79.60 Ehlers-Danlos syndrome, unspecified; K58.1 Irritable bowel syndrome with constipation; I49.8 Other specified cardiac arrhythmias; G24.9 Dystonia, unspecified; J45.909 Unspecified asthma, uncomplicated; F41.9 Anxiety disorder, unspecified
CPT/HCPCS: 21480 ×2; 36415; 70110; 71045; 80048; 80053; 82607; 82728; 82746; 83520; 83540; 83550; 83735; 84439; 84443; 84480; 84703; 85025; 86850; 86900; 86901; 96361; 96372; 96374; 96375; 96376; 99285; A9270; G0378; J0171; J1200; J2250; J2270; J2765; J2930; J3360; J7030; J7512

== ENCOUNTER 2021-11-02 13:34 | Emergency (ER) | payer OTHER, SELFPAY ==
[2021-11-02] VITALS (7 sets, daily range): BP systolic 138–154; BP diastolic 90–101; PULSE 123–154; RESP 15–26; O2SAT 99–100
--- NOTE | 2021-11-02 13:41 | ED.ALLEREA ---
HPI - Allergic Reaction General Chief complaint: Allergic Reaction Stated complaint: allergic reaction Time Seen by Provider: 11/02/21 13:36 History of Present Illness HPI narrative: 31-year-old female presents to the emergency room for evaluation of idiopathic anaphylaxis. Patient states that she has been having difficulty breathing and shortness of breath that acutely started earlier today. Patient also reports swelling to lower lip and rash to right side of her neck and anterior chest patient states that prior to arrival she took her EpiPen along with 50 mg of Benadryl with no change or resolution of symptoms. Patient states that she was recently admitted to the ICU for similar symptoms. Related Data Home Medications Medication Instructions Recorded Confirmed ascorbic acid (vitamin C) 1,000 mg 1 gm PO DAILY 05/15/19 10/28/21 tablet cetirizine 10 mg tablet 20 mg PO BID tablet 02/27/20 10/28/21 fluticasone propionate 50 1 spray INTRANASAL DAILY 05/18/20 10/28/21 mcg/actuation nasal spray,suspension diazepam 5 mg PO TID PRN 10/28/21 10/28/21 famotidine 20 mg PO BID 10/28/21 10/28/21 montelukast [Singulair] 10 mg PO HS 10/28/21 10/28/21 triamcinolone acetonide 1 applic DENTAL BID PRN 10/28/21 10/28/21 Allergies Allergy/AdvReac Type Severity Reaction Status Date / Time hydromorphone Allergy Intermediate Hives / Verified 10/28/21 12:54 Red Face clarithromycin Allergy Mild N/V Verified 10/28/21 12:54 hydrocodone Allergy Mild Itching Verified 10/28/21 12:54 meperidine Allergy Mild Nausea and Verified 10/28/21 12:54 Vomiting azithromycin Allergy Unknown N/V, Verified 10/28/21 12:54 DIARRHEA, ABD CRAMPING. duloxetine Allergy Unknown BULGING Verified 10/28/21 12:54 EYES ondansetron Allergy Unknown PROLONGED Verified 10/28/21 12:54 QT albuterol Allergy Difficulty Verified 10/28/21 13:24 Breathing ENERGY DRINKS Allergy Mild ORAL Uncoded 06/04/21 19:37 SWELLING [place] Allergy Mild ORAL Uncoded 06/04/21 19:37 SWELLING Review of Systems Review of Systems: CONSTITUTIONAL: Denies fever, chills, or sweats. EYES: Denies visual changes, redness, or discharge. ENT: Denies rhinorrhea, congestion, sore throat, or otalgia. CARDIOVASCULAR: Denies chest pain, palpitations, or edema. RESPIRATORY: Shortness of breath GASTROINTESTINAL: Denies abdominal pain, nausea, vomiting, or diarrhea. GENITOURINARY: Denies dysuria or hematuria. SKIN: Reports rash to neck and chest MUSCULOSKELETAL: Denies back pain, joint pain, or myalgia. NEUROLOGIC: Denies headache, numbness, dizziness, or weakness. PSYCHIATRIC: Denies anxiety or depression. 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 Irritable bowel syndrome with constipation Mononucleosis (05/2019) Postural orthostatic tachycardia syndrome Scapular dyskinesis Surgical History Surgical History History of arthroscopy of right knee History of endoscopy History of tonsillectomy Tarsal tunnel syndrome, left lower limb [place] teeth extracted Family History Family History Other Adopted Social History Social History Social History: Surrogate decision maker: Armand Koenig, . Code status: Full code. Smoking status: Never smoker Second hand tobacco smoke exposure: No Alcohol intake: current Alcohol use details: Rare alcohol use in moderation. Substance use: never Substance use type: does not use Additional living arrangements comments: Lives in [place] with her . No children. She is adopted. Additional occupation/education c
[2021-11-02] MEDS: diphenhydrAMINE HCl INJ 50 MG/ML VIAL IV PUSH (13:56)
[2021-11-02] MEDS: FAMOTIDINE 20 MG/2 ML VIAL IV PUSH (13:56)
[2021-11-02] MEDS: SODIUM CHLORIDE 0.9% IV 1,000 ML 999 ML IV CONT (13:56)
[2021-11-02] MEDS: methylPREDNISolone SOD SUCC 125 MG VIAL IV PUSH (13:56)
[2021-11-02] MEDS: IPRATROPIUM BR 0.02% INH SOLN 0.5 MG/2.5 ML VIAL INHALATION (14:02)
[2021-11-02] MEDS: diphenhydrAMINE HCl INJ 50 MG/ML VIAL 25 MG IV PUSH (16:12)
== END 2021-11-02 16:35 | disposition home or self-care (01) ==
PROVIDERS: Emergency Provider Nurse Practitioner Family; PCP Family Medicine
DX: T78.2XXA Anaphylactic shock, unspecified, initial encounter (principal); J45.909 Unspecified asthma, uncomplicated; Q79.60 Ehlers-Danlos syndrome, unspecified; K58.1 Irritable bowel syndrome with constipation; I49.8 Other specified cardiac arrhythmias
CPT/HCPCS: 94640; 96361; 96374; 96375; 96376; 99284; J1200; J2930; J7030

== ENCOUNTER 2021-11-03 10:53 | Emergency (ER) | payer OTHER, SELFPAY ==
[2021-11-03] VITALS (44 sets, daily range): BP systolic 123–164; BP diastolic 85–138; PULSE 100–140; RESP 8–48; TEMP 36.4–36.8; O2SAT 87–100
[2021-11-03] MEDS: methylPREDNISolone SOD SUCC 125 MG VIAL IV PUSH (12:48)
[2021-11-03] MEDS: FAMOTIDINE 20 MG/2 ML VIAL IV PUSH (12:48)
[2021-11-03] MEDS: diphenhydrAMINE HCl INJ 50 MG/ML VIAL 25 MG IV PUSH (12:48)
--- NOTE | 2021-11-03 14:15 | PC.NURSE ---
pt reporting that her jaw is dislocated, provider aware, NNO at this time pt voice has improved.
[2021-11-03] MEDS: PROPOFOL IV EMULSION 200 MG/20 ML VIAL (16:10)
[2021-11-03] MEDS: SODIUM CHLORIDE 0.9% IV 1,000 ML 999 ML (16:18)
--- NOTE | 2021-11-03 16:51 | ED.GENADULT ---
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 Patient states that she was sitting in the car smelled a noose and started having shortness of breath, felt her throat was closing down. She states that she took her EpiPen prior to coming to the ER and she still feels the same. Onset (ago): minute(s) (30) Location: mouth Radiation: non-radiation Severity: moderate Relieving factors: none Exacerbating factors: none Associated symptoms: denies other symptoms Related Data Home Medications Medication Instructions Recorded Confirmed ascorbic acid (vitamin C) 1,000 mg 1 gm PO DAILY 05/15/19 10/28/21 tablet cetirizine 10 mg tablet 20 mg PO BID tablet 02/27/20 10/28/21 fluticasone propionate 50 1 spray INTRANASAL DAILY 05/18/20 10/28/21 mcg/actuation nasal spray,suspension diazepam 5 mg PO TID PRN 10/28/21 10/28/21 famotidine 20 mg PO BID 10/28/21 10/28/21 montelukast [Singulair] 10 mg PO HS 10/28/21 10/28/21 triamcinolone acetonide 1 applic DENTAL BID PRN 10/28/21 10/28/21 Allergies Allergy/AdvReac Type Severity Reaction Status Date / Time hydromorphone Allergy Intermediate Hives / Verified 11/03/21 11:04 Red Face clarithromycin Allergy Mild N/V Verified 11/03/21 11:04 hydrocodone Allergy Mild Itching Verified 11/03/21 11:04 meperidine Allergy Mild Nausea and Verified 11/03/21 11:04 Vomiting azithromycin Allergy Unknown N/V, Verified 11/03/21 11:04 DIARRHEA, ABD CRAMPING. duloxetine Allergy Unknown BULGING Verified 11/03/21 11:04 EYES ondansetron Allergy Unknown PROLONGED Verified 11/03/21 11:04 QT albuterol Allergy Difficulty Verified 11/03/21 11:04 Breathing ENERGY DRINKS Allergy Mild ORAL Uncoded 06/04/21 19:37 SWELLING [place]UR[place] Allergy Mild ORAL Uncoded 06/04/21 19:37 SWELLING Review of Systems Review of Systems: All systems reviewed & are unremarkable except as noted in HPI and below Constitutional: Constitutional: Reports no additional constitutional complaints Eyes: Eyes: Reports no additional eye complaints ENT: Reports as per HPI Cardiovascular: Cardiovascular: Reports no additional cardiovascular complaints Respiratory: Respiratory: Reports no additional respiratory complaints Gastrointestinal: Gastrointestinal: Reports no additional gastrointestinal complaints Genitourinary: Genitourinary: Reports no additional female genitourinary complaints Musculoskeletal: Musculoskeletal: Reports no additional musculoskeletal complaints Integumentary/Breasts: Skin/Breast: Reports system reviewed and no additional complaints, except as docu Neurologic: Reports system reviewed and no additional complaints, except as documented [facility] Past Medical History Medical History Anxiety Asthma 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 Irritable bowel syndrome with constipation Mononucleosis (05/2019) Postural orthostatic tachycardia syndrome Scapular dyskinesis Surgical History Surgical History History of arthroscopy of right knee History of endoscopy History of tonsillectomy Tarsal tunnel syndrome, left lower limb [place] teeth extracted Family History Family History Other Adopted Social History Social History Social History: Surrogate decision maker: Armand Koenig, . Code status: Full code. Smoking status:
== END 2021-11-03 17:41 | disposition home or self-care (01) ==
PROVIDERS: Emergency Provider Family Medicine; PCP Family Medicine
DX: T78.2XXA Anaphylactic shock, unspecified, initial encounter (principal); M26.69 Other specified disorders of temporomandibular joint; Q79.60 Ehlers-Danlos syndrome, unspecified; J45.909 Unspecified asthma, uncomplicated; K58.1 Irritable bowel syndrome with constipation; I49.8 Other specified cardiac arrhythmias
CPT/HCPCS: 21480; 96374; 96375; 99285; J1200; J2704; J2930; J7030

== ENCOUNTER 2021-11-07 16:10 | Emergency (ER) | payer OTHER, SELFPAY ==
[2021-11-07 16:13] VITALS: BP 144/115; PULSE 140; RESP 18; TEMP 36.1; O2SAT 100
--- NOTE | 2021-11-07 16:25 | ED.ALLEREA ---
HPI - Allergic Reaction General Chief complaint: Allergic Reaction Stated complaint: allergic rx Time Seen by Provider: 11/07/21 16:18 Source: patient and family Mode of arrival: ambulatory Limitations: no limitations History of Present Illness HPI narrative: Patient is a 31 years old white female came to the emergency room with sudden onset of itchy face, Tongue, Tried to Clear Her Throat Constantly, Itching of the Arm, Chest and Face Started 30 Minutes Prior to Arrival to the Emergency Room. Patient Received Epinephrine, Benadryl 50 Mg Prior to Arrival to the Emergency Room. History of Idiopathic Anaphylaxis, last time was seen by her cooky packer 1 week ago and currently on EpiPen, Zyrtec 2 tablets once a day, Singulair and tapering dose of prednisone. Patient was seen in our emergency room few times in the last 4 weeks for the same symptoms. Patient reports last time been feeling okay over the last 4 days and the symptoms started 30 minutes prior to arrival to the emergency room Related Data Home Medications Medication Instructions Recorded Confirmed ascorbic acid (vitamin C) 1,000 mg 1 gm PO DAILY 05/15/19 10/28/21 tablet cetirizine 10 mg tablet 20 mg PO BID tablet 02/27/20 10/28/21 fluticasone propionate 50 1 spray INTRANASAL DAILY 05/18/20 10/28/21 mcg/actuation nasal spray,suspension famotidine 20 mg PO BID 10/28/21 10/28/21 montelukast [Singulair] 10 mg PO HS 10/28/21 10/28/21 triamcinolone acetonide 1 applic DENTAL BID PRN 10/28/21 10/28/21 Allergies Allergy/AdvReac Type Severity Reaction Status Date / Time hydromorphone Allergy Intermediate Hives / Verified 11/07/21 16:17 Red Face clarithromycin Allergy Mild N/V Verified 11/07/21 16:17 hydrocodone Allergy Mild Itching Verified 11/07/21 16:17 meperidine Allergy Mild Nausea and Verified 11/07/21 16:17 Vomiting azithromycin Allergy Unknown N/V, Verified 11/07/21 16:17 DIARRHEA, ABD CRAMPING. 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 Irritable bowel syndrome with constipation Mononucleosis (05/2019) Postural orthostatic tachycardia syndrome Scapular dyskinesis Surgical History Surgical History History of arthroscopy of right knee History of endoscopy History of tonsillectomy Tarsal tunnel syndrome, left lower limb [place] teeth extracted Family History Family History Other Adopted Social History Social History Social History: Surrogate decision maker: Armand Koenig, . Code status: Full code. Smoking status: Never smoker Second hand tobacco smoke exposure: No Alcohol intake: current Alcohol use details: Rare alcohol use in moderation. Substance use: never Substance use type: does not use Additional living arrangements comments: Lives in [place] with her . No children. She is adopted. 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 Spiritual care concerns: No Exam Narrative: General appearance: Well-developed, well-nourished, trying to clear her throat constantly Skin: Red skin of the face, extremity, chest and shad
[2021-11-07] MEDS: EPINEPHrine HCL INJ 1 MG/ML AMPUL 0.5 MG IM ×2 (16:28→16:50)
[2021-11-07] MEDS: predniSONE 20 MG TABLET 60 MG PO (16:30)
[2021-11-07] MEDS: FAMOTIDINE 20 MG TABLET 40 MG PO (16:31)
--- NOTE | 2021-11-07 17:12 | PC.NURSE ---
Pts symptoms resolved. Feels she is okay to be discharged.
[2021-11-07 17:13] VITALS: BP 163/98; PULSE 123; RESP 16; O2SAT 100
[2021-11-07 17:21] VITALS: BP 143/95
== END 2021-11-07 17:21 | disposition home or self-care (01) ==
PROVIDERS: Emergency Provider Emergency Medicine; PCP Family Medicine
DX: T78.40XA Allergy, unspecified, initial encounter (principal); J45.909 Unspecified asthma, uncomplicated; K58.1 Irritable bowel syndrome with constipation; I49.8 Other specified cardiac arrhythmias; Q79.60 Ehlers-Danlos syndrome, unspecified; F41.9 Anxiety disorder, unspecified
CPT/HCPCS: 96372; 99284; A9270; J0171; J7512

== ENCOUNTER 2021-11-09 14:25 | Emergency (ER) | payer OTHER, SELFPAY ==
[2021-11-09 14:35] VITALS: PULSE 141; RESP 20; TEMP 36.7; O2SAT 100
[2021-11-09] MEDS: diphenhydrAMINE HCl INJ 50 MG/ML VIAL IV PUSH (14:46)
[2021-11-09] MEDS: methylPREDNISolone SOD SUCC 125 MG VIAL IV PUSH (14:47)
[2021-11-09] MEDS: FAMOTIDINE 20 MG/2 ML VIAL IV PUSH (14:50)
--- NOTE | 2021-11-09 14:52 | ED.GENADULT ---
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 Also complaining of hives across her chest, itchy throat, and sensation of throat swelling. 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 Of note, she has been to the emergency department 5 times for the same issue over the past 2 weeks and has been discharged after her symptoms resolve, often receiving repeat dosing of IM epinephrine. She does follow with an technical services coordinator, and she is currently on EpiPen PRN, Zyrtec 2 tablets once a day, Singulair and tapering dose of prednisone. She was also prescribed diazepam and Buspar for anxiety by her PMD recently. Patient tells me she has been admitted to the ICU for anaphylaxis. <Miriam Denton PA-C - Last Filed: 11/09/21 18:29> Related Data Home medications: Home Medications Medication Instructions Recorded Confirmed ascorbic acid (vitamin C) 1,000 mg 1 gm PO DAILY 05/15/19 10/28/21 tablet cetirizine 10 mg tablet 20 mg PO BID tablet 02/27/20 10/28/21 fluticasone propionate 50 1 spray INTRANASAL DAILY 05/18/20 10/28/21 mcg/actuation nasal spray,suspension famotidine 20 mg PO BID 10/28/21 10/28/21 montelukast [Singulair] 10 mg PO HS 10/28/21 10/28/21 triamcinolone acetonide 1 applic DENTAL BID PRN 10/28/21 10/28/21 <Miriam Denton PA-C - Last Filed: 11/09/21 18:29> Allergies/adverse reactions: Allergies Allergy/AdvReac Type Severity Reaction Status Date / Time hydromorphone Allergy Intermediate Hives / Verified 11/07/21 16:17 Red Face clarithromycin Allergy Mild N/V Verified 11/07/21 16:17 hydrocodone Allergy Mild Itching Verified 11/07/21 16:17 meperidine Allergy Mild Nausea and Verified 11/07/21 16:17 Vomiting azithromycin Allergy Unknown N/V, Verified 11/07/21 16:17 DIARRHEA, ABD CRAMPING. duloxetine Allergy Unknown BULGING Verified 11/05/21 14:29 EYES ondansetron Allergy Unknown PROLONGED Verified 11/07/21 16:17 QT albuterol Allergy Difficulty Verified 11/07/21 16:17 Breathing ENERGY DRINKS Allergy Mild ORAL Uncoded 11/07/21 16:17 SWELLING WATERMELON-LEMON [place] SLURPY Allergy Mild ORAL Uncoded 11/07/21 16:17 SWELLING <Miriam Denton PA-C - Last Filed: 11/09/21 18:29> Review of Systems Review of Systems: Gen: Denies fevers or chills Eyes: Denies eye pain or visual change ENT: Reports tightness/itchiness in throat. Denies congestion Respiratory: Denies cough CV: Denies chest pain or palpitations GI: Denies abdominal pain nausea, emesis or diarrhea : denies burning, urgency, frequency or hematuria Musculoskeletal: Denies back pain or muscle pain Neuro: Denies numbness, tingling, weakness or focal weakness Skin: Reports hives Except as documented, all other systems reviewed and negative <Miriam Denton PA-C - Last Filed: 11/09/21 18:29> All systems reviewed & are unremarkable except as noted in HPI and below <Miriam Denton PA-C - Last Filed: 11/09/21 18:29> [facility] Past Medical History Medical History: Medical History Anxiety Asthma 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 Irritable bowel syndrome with constipation Mononucleosis (05/2019) Postural orthostatic tachycardia syndrome Scapular dyskinesis <Miriam Denton,
--- NOTE | 2021-11-09 15:04 | PC.NURSE ---
This RN walked by pts room. PT is currently on phone talking
[2021-11-09] MEDS: EPINEPHrine HCL INJ 1 MG/ML AMPUL 0.3 MG IM (15:59)
[2021-11-09 16:27] VITALS: BP 127/100; PULSE 120; RESP 20; O2SAT 100
[2021-11-09 18:10] VITALS: BP 130/102; PULSE 126; RESP 13; O2SAT 99
== END 2021-11-09 18:12 | disposition home or self-care (01) ==
PROVIDERS: Emergency Provider Emergency Medicine; PCP Family Medicine
DX: T78.40XA Allergy, unspecified, initial encounter (principal); J45.909 Unspecified asthma, uncomplicated; K58.1 Irritable bowel syndrome with constipation; I49.8 Other specified cardiac arrhythmias
CPT/HCPCS: 96372; 96374; 96375; 99284; J0171; J1200; J2930

== ENCOUNTER 2021-11-14 12:43 | Emergency (ER) | payer OTHER, SELFPAY ==
--- NOTE | ~2021-11-14 | CT_ITS ---
EXAMINATION: CT facial bones wo con DATE: 11/14/2021 14:34 INDICATION: jaw dislocation? . TECHNIQUE: Computed tomography (CT) of the facial bones and maxillofacial region was performed withou t intravenous contrast. Automated exposure control and iterative reconstruction technique were employ ed. The dose-length product was 279.06 mGy-cm. COMPARISON: 06/04/2021. FINDINGS: Soft Tissues: No significant superficial soft tissue swelling. Facial bones: No acute fracture. No lytic or blastic process. Leftward displacement of the mandible relative to the maxilla. The right mandibular condyle is slightly subluxed from the normal closed silvia th position. The left mandibular condyle is anteriorly displaced in what would normally be the open-m outh position. These findings are similar to the prior study. Eyes: The globes are intact. The soft tissue planes of the orbits are maintained. Paranasal Sinuses: The visualized aerated spaces are clear. Foreign Bodies: No radiopaque foreign bodies. Other Findings: None. IMPRESSION: Left mandibular condyle dislocation. Right mandibular condyle subluxation. These changes result in ri ghtward translation of the mandible relative to the maxilla. Reviewed, dictated and finalized at location K. IMPRESSION: Left mandibular condyle dislocation. Right mandibular condyle subluxation. Thes e changes result in rightward translation of the mandible relative to the maxil la.
[2021-11-14 12:44] VITALS: BP 146/98; PULSE 146; RESP 18; TEMP 36.4; O2SAT 100
[2021-11-14] MEDS: diphenhydrAMINE HCl CAP 25 MG CAPSULE 50 MG PO (13:48)
[2021-11-14] MEDS: FAMOTIDINE 20 MG TABLET PO (13:49)
[2021-11-14] MEDS: methylPREDNISolone SOD SUCC 125 MG VIAL IM (15:08)
[2021-11-14] MEDS: KETOROLAC 30 MG/ML VIAL (*BKC) IM (15:49)
--- NOTE | 2021-11-14 17:15 | ED.ALLEREA ---
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 She gave herself her EpiPen and presented to the emergency department. Patient presents to the ER frequently for this complaint, about 7 times in the past 2 weeks. She saw an lean consultant on the , who recommended starting Xolair for her symptoms. She is set to get this injection next week. Denies difficulty breathing, chest pain, lip swelling. <JUAN Bautista Last Filed: 11/14/21 20:04> Related Data Home medications: Home Medications Medication Instructions Recorded Confirmed ascorbic acid (vitamin C) 1,000 mg 1 gm PO DAILY 05/15/19 10/28/21 tablet cetirizine 10 mg tablet 20 mg PO BID tablet 02/27/20 10/28/21 fluticasone propionate 50 1 spray INTRANASAL DAILY 05/18/20 10/28/21 mcg/actuation nasal spray,suspension famotidine 20 mg PO BID 10/28/21 10/28/21 montelukast [Singulair] 10 mg PO HS 10/28/21 10/28/21 triamcinolone acetonide 1 applic DENTAL BID PRN 10/28/21 10/28/21 <JUAN Bautista Last Filed: 11/14/21 20:04> Allergies/adverse reactions: Allergies Allergy/AdvReac Type Severity Reaction Status Date / Time hydromorphone Allergy Intermediate Hives / Verified 11/07/21 16:17 Red Face clarithromycin Allergy Mild N/V Verified 11/07/21 16:17 hydrocodone Allergy Mild Itching Verified 11/07/21 16:17 meperidine Allergy Mild Nausea and Verified 11/07/21 16:17 Vomiting azithromycin Allergy Unknown N/V, Verified 11/07/21 16:17 DIARRHEA, ABD CRAMPING. duloxetine Allergy Unknown BULGING Verified 11/05/21 14:29 EYES ondansetron Allergy Unknown PROLONGED Verified 11/07/21 16:17 QT albuterol Allergy Difficulty Verified 11/07/21 16:17 Breathing ENERGY DRINKS Allergy Mild ORAL Uncoded 11/07/21 16:17 SWELLING WATERMELON-LEMON [place] SLURPY Allergy Mild ORAL Uncoded 11/07/21 16:17 SWELLING <Miriam Denton PA-C - Last Filed: 11/14/21 20:04> Review of Systems Review of Systems: Gen: Denies fevers or chills Eyes: Denies eye pain or visual change ENT: Reports throat itching. Denies congestion Respiratory: Denies shortness of breath or cough CV: Denies chest pain or palpitations GI: Reports abdominal pain nausea, emesis or diarrhea denies burning, urgency, frequency or hematuria Musculoskeletal: Denies back pain or muscle pain Neuro: Denies numbness, tingling, weakness or focal weakness Skin: Denies rash <Miriam Denton PA-C - Last Filed: 11/14/21 20:04> All systems reviewed & are unremarkable except as noted in HPI and below <Miriam Denton PA-C - Last Filed: 11/14/21 20:04> [facility] Past Medical History Medical History: Medical History Anxiety Asthma 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 Irritable bowel syndrome with constipation Mononucleosis (05/2019) Postural orthostatic tachycardia syndrome Scapular dyskinesis <Miriam Denton PA-C - Last Filed: 11/14/21 20:04> Surgical History Surgical History: Surgical History History of arthroscopy of right knee History of endoscopy History of tonsillectomy Tarsal tunnel syndrome, left lower limb [place] teeth extracted <Miriam Robins
[2021-11-14] MEDS: PROPOFOL IV EMULSION 200 MG/20 ML VIAL IV PUSH (17:16)
[2021-11-14 17:18] VITALS: PULSE 100; RESP 23; O2SAT 100
[2021-11-14] MEDS: SODIUM CHLORIDE 0.9% IV 1,000 ML 999 ML (17:23)
[2021-11-14 17:24] VITALS: BP 151/85; PULSE 101; RESP 22; O2SAT 100
[2021-11-14 17:27] VITALS: BP 135/81; BP 135/87; PULSE 100; PULSE 101; RESP 22; O2SAT 100
[2021-11-14 17:43] VITALS: BP 139/90; PULSE 100; RESP 22; O2SAT 100
[2021-11-14 17:58] VITALS: BP 154/101; PULSE 122; RESP 19; O2SAT 100
--- NOTE | 2021-11-14 18:06 | PC.NURSE ---
1718 BANG pt fully awake 1724 procedure began 100mg of propofol IV 1725 10mg of propofol iv pt drowsy 1727 procedure complete. 1800 pt ambulatory to bathroom, steady gait, denies pain, RA, pt A&0x4.
--- NOTE | 2021-11-14 18:21 | PC.NURSE ---
PT ambulatory to ER exit with friend. PT verbalized understanding. PT given discharge papers.
== END 2021-11-14 18:25 | disposition home or self-care (01) ==
PROVIDERS: Emergency Provider Emergency Medicine; PCP Family Medicine
DX: T78.2XXA Anaphylactic shock, unspecified, initial encounter (principal); M26.69 Other specified disorders of temporomandibular joint; Q79.60 Ehlers-Danlos syndrome, unspecified; J45.909 Unspecified asthma, uncomplicated; F41.9 Anxiety disorder, unspecified; K58.1 Irritable bowel syndrome with constipation; I49.8 Other specified cardiac arrhythmias
CPT/HCPCS: 21480; 70486; 96372; 99285; A9270; J1885; J2704; J2930; J7030

== ENCOUNTER 2021-11-19 14:22 | Emergency (ER) | payer OTHER, SELFPAY ==
--- NOTE | ~2021-11-19 | CT_ITS ---
EXAMINATION: CT facial bones wo con DATE: 11/19/2021 15:52 INDICATION: Jaw dislocation. TECHNIQUE: Computed tomography (CT) of the facial bones and maxillofacial region was performed withou t intravenous contrast. Automated exposure control and iterative reconstruction technique were employ ed. The dose-length product was 350.19 mGy-cm. COMPARISON: CT facial bones 11/14/2021, 06/04/2021 FINDINGS: The left mandibular condyle demonstrates anterior subluxation to the open-mouth position. T he right mandibular condyle is in the closed mouth position. No fracture. There is mild mucosal thick ening in left maxillary sinus. IMPRESSION: 1. Asymmetric positioning of the mandible with the right temporomandibular joint in the closed mouth position and the left temporomandibular joint in the open-mouth position. Reviewed, dictated and finalized at location A. IMPRESSION: 1. Asymmetric positioning of the mandible with the right temporomandibular join t in the closed mouth position and the left temporomandibular joint in the open -mouth position.
[2021-11-19 14:37] VITALS: BP 148/116; PULSE 154; RESP 31; O2SAT 100
[2021-11-19] MEDS: methylPREDNISolone SOD SUCC 125 MG VIAL IV PUSH (15:00)
[2021-11-19] MEDS: FAMOTIDINE 20 MG/2 ML VIAL 40 MG IV PUSH (15:00)
[2021-11-19] MEDS: EPINEPHrine HCL INJ 1 MG/ML AMPUL 0.5 MG IM ×2 (15:05→15:15)
--- NOTE | 2021-11-19 15:26 | ED.ALLEREA ---
HPI - Allergic Reaction General Chief complaint: Allergic Reaction Stated complaint: allgeric reaction Time Seen by Provider: 11/19/21 14:53 Source: patient Limitations: no limitations History of Present Illness HPI narrative: 31 years old white female presented to the ED with sudden onset of allergic reaction, itching, redness came on over the body mainly the face and chest, started prior to arrival to the emergency room, associated with wheezing and difficulty breathing. Patient received EpiPen shot and Benadryl 50 mg orally prior to arrival Related Data Home Medications Medication Instructions Recorded Confirmed ascorbic acid (vitamin C) 1,000 mg 1 gm PO DAILY 05/15/19 10/28/21 tablet cetirizine 10 mg tablet 20 mg PO BID tablet 02/27/20 10/28/21 fluticasone propionate 50 1 spray INTRANASAL DAILY 05/18/20 10/28/21 mcg/actuation nasal spray,suspension famotidine 20 mg PO BID 10/28/21 10/28/21 montelukast [Singulair] 10 mg PO HS 10/28/21 10/28/21 triamcinolone acetonide 1 applic DENTAL BID PRN 10/28/21 10/28/21 Allergies Allergy/AdvReac Type Severity Reaction Status Date / Time hydromorphone Allergy Intermediate Hives / Verified 11/07/21 16:17 Red Face clarithromycin Allergy Mild N/V Verified 11/07/21 16:17 hydrocodone Allergy Mild Itching Verified 11/07/21 16:17 meperidine Allergy Mild Nausea and Verified 11/07/21 16:17 Vomiting azithromycin Allergy Unknown N/V, Verified 11/07/21 16:17 DIARRHEA, ABD CRAMPING. 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 Irritable bowel syndrome with constipation Mononucleosis (05/2019) Postural orthostatic tachycardia syndrome Scapular dyskinesis Surgical History Surgical History History of arthroscopy of right knee History of endoscopy History of tonsillectomy Tarsal tunnel syndrome, left lower limb [place] teeth extracted Family History Family History Other Adopted Social History Social History Social History: Surrogate decision maker: Armand Koenig, . Code status: Full code. Smoking status: Never smoker Second hand tobacco smoke exposure: No Alcohol intake: current Alcohol use details: Rare alcohol use in moderation. Substance use: never Substance use type: does not use Additional living arrangements comments: Lives in [place] with her . No children. She is adopted. 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 Spiritual care concerns: No Exam Narrative: General appearance: Well-developed, well-nourished Skin: Normal color, Red skin of the face, upper chest and upper back and forearm with scratch corrigan Head: Normocephalic, nontraumatic Eyes: Clear conjunctiva ENT: Oropharynx normal, ears normal, nose normal Neck: Supple, nontender Chest and respiratory: Airway patent, diffuse coarse wheezing and labored breathing bilaterally Heart: Regular rate/rhythm Abdomen: Soft, nontender, no organomegaly, quiet bowel sounds Vascular: Normal peripheral pulses, normal capillary refill. Musculoskeletal: Normal range of motion, nontender back N
[2021-11-19] MEDS: diazePAM INJ (*CRX) 10 MG/2 ML SYRINGE IV PUSH (16:35)
[2021-11-19 16:46] VITALS: BP 144/90; PULSE 138; RESP 13; O2SAT 98
[2021-11-19 17:01] VITALS: BP 124/84; PULSE 138; RESP 17; O2SAT 98
[2021-11-19] MEDS: MIDAZOLAM HCL (*CRX) 2 MG/2 ML VIAL 4 MG IV PUSH (17:48)
[2021-11-19 17:52] VITALS: BP 137/91; PULSE 134; RESP 24; O2SAT 99
--- NOTE | 2021-11-19 17:52 | PC.NURSE ---
4mg Versed given IV push with Dr. Ferrell at bedside. Dr. Ferrell able to correct patient's subluxated jaw.
[2021-11-19 18:01] VITALS: BP 133/82; PULSE 129; RESP 15; O2SAT 98
[2021-11-19 18:16] VITALS: BP 134/83; PULSE 129; RESP 12; O2SAT 98
== END 2021-11-19 18:21 | disposition home or self-care (01) ==
PROVIDERS: Emergency Provider Emergency Medicine; PCP Family Medicine
DX: T78.40XA Allergy, unspecified, initial encounter (principal); M26.69 Other specified disorders of temporomandibular joint; J45.909 Unspecified asthma, uncomplicated; Q79.60 Ehlers-Danlos syndrome, unspecified; K58.1 Irritable bowel syndrome with constipation; I49.8 Other specified cardiac arrhythmias
CPT/HCPCS: 21480; 70486; 96372; 96374; 96375; 99285; J0171; J2250; J2930; J3360

== ENCOUNTER 2021-11-25 12:57 | Emergency (ER) | payer OTHER, SELFPAY ==
[2021-11-25] VITALS (7 sets, daily range): BP systolic 123–147; BP diastolic 79–97; PULSE 125–134; RESP 13–34; TEMP 36.6; O2SAT 100
--- NOTE | 2021-11-25 13:40 | ED.ALLEREA ---
HPI - Allergic Reaction General Chief complaint: Allergic Reaction Stated complaint: allergic reaction Time Seen by Provider: 11/25/21 13:09 History of Present Illness HPI narrative: Patient is a 31-year-old female complaining of an allergic reaction described as lip swelling, rash and itching all over. Patienthas had multiple ER visits secondary to anaphylaxis/allergic reaction, this is her seventh ER visit this month for the same complaint. Related Data Home Medications Medication Instructions Recorded Confirmed ascorbic acid (vitamin C) 1,000 mg 1 gm PO DAILY 05/15/19 10/28/21 tablet cetirizine 10 mg tablet (Zyrtec) 20 mg PO BID 02/27/20 10/28/21 fluticasone propionate 50 1 spray intranasal DAILY 05/18/20 10/28/21 mcg/actuation nasal spray,suspension (Flonase Allergy Relief) famotidine 40 mg tablet 20 mg PO BID 10/28/21 10/28/21 montelukast 10 mg tablet 10 mg PO HS 10/28/21 10/28/21 (Singulair) triamcinolone acetonide 0.1 % 1 applic dental BID PRN ulcers 10/28/21 10/28/21 dental paste Allergies Allergy/AdvReac Type Severity Reaction Status Date / Time hydromorphone Allergy Intermediate Hives / Verified 11/25/21 13:20 Red Face clarithromycin Allergy Mild N/V Verified 11/25/21 13:20 hydrocodone Allergy Mild Itching Verified 11/25/21 13:20 meperidine Allergy Mild Nausea and Verified 11/25/21 13:20 Vomiting azithromycin Allergy Unknown N/V, Verified 11/25/21 13:20 DIARRHEA, ABD CRAMPING. duloxetine Allergy Unknown BULGING Verified 11/25/21 13:20 EYES ondansetron Allergy Unknown PROLONGED Verified 11/25/21 13:20 QT albuterol Allergy Difficulty Verified 11/25/21 13:20 Breathing ENERGY DRINKS Allergy Mild ORAL Uncoded 11/25/21 13:20 SWELLING WATERMELON-LEMON [place] SLURPY Allergy Mild ORAL Uncoded 11/25/21 13:20 SWELLING Review of Systems Review of Systems: All systems reviewed & are unremarkable except as noted in HPI and below Constitutional: Constitutional: Denies body ache(s), Denies chills, Denies excessive sweating, Denies fatigue, Denies fever(s), Denies headache(s), Denies lethargy, Denies malaise, Denies weakness and Denies weight loss Eyes: Eyes: Denies blurry vision, Denies change in vision and Denies loss of vision ENT: Denies dizziness, Denies ear discharge, Denies headache(s), Denies epistaxis, Denies nasal congestion, Denies neck pain, Denies throat swelling and Denies tongue swelling Cardiovascular: Cardiovascular: Denies chest pain, Denies chest pain at rest, Denies chest pain with activity, Denies diaphoresis, Denies rapid heart rate, Denies edema, Denies irregular heart rhythm, Denies lightheadedness, Denies palpitations, Denies dyspnea and Denies dyspnea on exertion Respiratory: Respiratory: Denies chest congestion, Denies cough, Denies hemoptysis, Denies dyspnea and Denies dyspnea on exertion Gastrointestinal: Gastrointestinal: Denies abdominal pain, Denies melena, Denies hematochezia, Denies diarrhea, Denies nausea, Denies vomiting and Denies hematemesis Musculoskeletal: Musculoskeletal: Denies abnormal gait, Denies deformity, Denies joint swelling, Denies limited range of motion, Denies neck pain and Denies numbness Neurologic: Denies Abnormal speech present, Denies abnormal gait, Denies confusion, Denies dizziness, Denies headache(s), Denies focal weakness, Denies loss of vision, Denies numbness, Denies Other visual disturbances, Denies Sensory deficit (Neuro) and Denies weakness Psychiatric: Psychiatric: Denies confusion, Denies depression, Denies auditory hallucinations, Denies homicidal ideation and Denies suicidal ideation Endocrine: Endocrine: Denies cold intolerance, Denies excessive sweating, Denies fatigue, Denies heat intolerance and Denies palpitations Hematologic/Lymphatic: Hematologic/Lymphatic: Denies easy bleeding and Denies easy bruising Allergic/Immunologic: Allergic/Immunologic: Denies throat swelling and Denies to
[2021-11-25] MEDS: FAMOTIDINE 20 MG/2 ML VIAL IV PUSH (13:44)
[2021-11-25] MEDS: EPINEPHrine HCL INJ 1 MG/ML AMPUL 0.3 MG IM (13:44)
[2021-11-25] MEDS: methylPREDNISolone SOD SUCC 125 MG VIAL IV PUSH (13:45)
[2021-11-25] MEDS: diphenhydrAMINE HCl INJ 50 MG/ML VIAL 25 MG IV PUSH (13:45)
== END 2021-11-25 15:48 | disposition home or self-care (01) ==
PROVIDERS: Emergency Provider Emergency Medicine; PCP Family Medicine
DX: T78.40XA Allergy, unspecified, initial encounter (principal); J45.909 Unspecified asthma, uncomplicated; Q79.60 Ehlers-Danlos syndrome, unspecified; K58.1 Irritable bowel syndrome with constipation; I49.8 Other specified cardiac arrhythmias; F41.9 Anxiety disorder, unspecified
CPT/HCPCS: 96372; 96374; 96375; 99284; J0171; J1200; J2930

== ENCOUNTER 2021-11-29 15:36 | Emergency (ER) | payer OTHER, SELFPAY ==
--- NOTE | ~2021-11-29 | XR_ITS ---
EXAMINATION: XR chest 1V portable 11/29/2021 16:26 INDICATION: Dyspnea with wheezing PROCEDURE: AP portable chest COMPARISON: Comparison to multiple prior studies sequentially, with oldest reviewed study dated 05/04. FINDINGS: The lungs are clear. The cardiomediastinal silhouette is within normal limits. There are no pleural effusions. There is no pneumothorax suspected. IMPRESSION: 1: NO ACUTE CARDIOPULMONARY DISEASE. Reviewed, dictated and finalized at location A.
[2021-11-29 15:43] VITALS: BP 145/101; PULSE 144; RESP 18; TEMP 36.1; O2SAT 100
[2021-11-29] MEDS: ALBUTEROL SULFATE NEB 2.5 MG/3 ML INH 5 MG INHALATION (16:30)
[2021-11-29] MEDS: IPRATROPIUM BR 0.02% INH SOLN 0.5 MG/2.5 ML VIAL INHALATION (16:30)
[2021-11-29 16:42] VITALS: BP 123/87; PULSE 113; RESP 18; O2SAT 97
[2021-11-29] MEDS: FAMOTIDINE 20 MG/2 ML VIAL IV PUSH (17:03)
[2021-11-29] MEDS: SODIUM CHLORIDE 0.9% IV 1,000 ML 999 ML IV CONT (17:04)
[2021-11-29] MEDS: methylPREDNISolone SOD SUCC 125 MG VIAL IV PUSH (17:04)
[2021-11-29 17:30] VITALS: BP 128/74; PULSE 88; RESP 17; O2SAT 97
--- NOTE | 2021-11-29 17:36 | ED.ALLEREA ---
HPI - Allergic Reaction General Chief complaint: Allergic Reaction Stated complaint: allergic reaction, itching, throat tightness Time Seen by Provider: 11/29/21 16:05 History of Present Illness HPI narrative: Patient states she had a sudden onset of throat swelling, body itching, and feeling like she cannot breathe, she did give her self an EpiPen, she states that she also gave herself Benadryl, she is feeling slightly better but still has some trouble breathing. This has happened in the past multiple times per patient she has idiopathic allergic reactions. Related Data Home Medications Medication Instructions Recorded Confirmed ascorbic acid (vitamin C) 1,000 mg 1 gm PO DAILY 05/15/19 10/28/21 tablet cetirizine 10 mg tablet (Zyrtec) 20 mg PO BID 02/27/20 10/28/21 fluticasone propionate 50 1 spray intranasal DAILY 05/18/20 10/28/21 mcg/actuation nasal spray,suspension (Flonase Allergy Relief) famotidine 40 mg tablet 20 mg PO BID 10/28/21 10/28/21 montelukast 10 mg tablet 10 mg PO HS 10/28/21 10/28/21 (Singulair) triamcinolone acetonide 0.1 % 1 applic dental BID PRN ulcers 10/28/21 10/28/21 dental paste Allergies Allergy/AdvReac Type Severity Reaction Status Date / Time hydromorphone Allergy Intermediate Hives / Verified 11/25/21 13:20 Red Face clarithromycin Allergy Mild N/V Verified 11/25/21 13:20 hydrocodone Allergy Mild Itching Verified 11/25/21 13:20 meperidine Allergy Mild Nausea and Verified 11/25/21 13:20 Vomiting albuterol Allergy Unknown SEE NOTE Verified 11/29/21 16:38 azithromycin Allergy Unknown N/V, Verified 11/25/21 13:20 DIARRHEA, ABD CRAMPING. duloxetine Allergy Unknown BULGING Verified 11/25/21 13:20 EYES ondansetron Allergy Unknown PROLONGED Verified 11/25/21 13:20 QT ENERGY DRINKS Allergy Mild ORAL Uncoded 11/25/21 13:20 SWELLING WATERMELON-LEMON [place] SLURPY Allergy Mild ORAL Uncoded 11/25/21 13:20 SWELLING Review of Systems Review of Systems: CONST: No fever. HEENT: Throat swelling C/V: Chest tightness RESP: Difficulty breathing GI: No abdominal pain : No dysuria. M/S: No joint pain. 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 Irritable bowel syndrome with constipation Mononucleosis (05/2019) Postural orthostatic tachycardia syndrome Scapular dyskinesis Surgical History Surgical History History of arthroscopy of right knee History of endoscopy History of tonsillectomy Tarsal tunnel syndrome, left lower limb [place] teeth extracted Family History Family History Other Adopted Social History Social History Social History: Surrogate decision maker: Armand Koenig, . Code status: Full code. Smoking status: Never smoker Second hand tobacco smoke exposure: No Alcohol intake: current Alcohol use details: Rare alcohol use in moderation. Substance use: never Substance use type: does not use Additional living arrangements comments: Lives in [place] with her . No children. She is adopted. 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 Spiritual care concerns: No Exam Narrative: EXAMINATION OF ORGAN SYSTEMS/BODY AREAS: Constitutional: Vital signs per nursing GENERAL: Patient appears quite uncomfortable in the bed HEAD: Normal with no signs of head trauma. EYES: EOMI, conjunctiva normal ENT: No swelling of the lips, patient seems to be trying to make her tongue look wider as if it is swollen though it is not swollen
[2021-11-29 17:48] VITALS: BP 142/91; PULSE 87; RESP 18; O2SAT 100
== END 2021-11-29 17:50 | disposition home or self-care (01) ==
PROVIDERS: Emergency Provider Emergency Medicine; PCP Family Medicine
DX: T78.40XA Allergy, unspecified, initial encounter (principal); Q79.60 Ehlers-Danlos syndrome, unspecified; I49.8 Other specified cardiac arrhythmias; J45.909 Unspecified asthma, uncomplicated; K58.1 Irritable bowel syndrome with constipation
CPT/HCPCS: 71045; 94640; 96361; 96374; 96375; 99284; J2930; J7030

== ENCOUNTER 2021-12-04 13:45 | Emergency (ER) | payer OTHER, SELFPAY ==
[2021-12-04] VITALS (11 sets, daily range): BP systolic 119–145; BP diastolic 86–107; PULSE 111–137; RESP 14–39; TEMP 36.8; O2SAT 97–100
--- NOTE | 2021-12-04 14:29 | PC.NURSE ---
Pt states her s/s are getting worse and wants to use her EPI pen. motor vehicle technician Yoselin made aware and room 22 has been assigned at this time. Pt is able to speak in complete sentences and ambulate without any difficulty.
--- NOTE | 2021-12-04 14:56 | ED.ALLEREA ---
HPI - Allergic Reaction General Chief complaint: Allergic Reaction Stated complaint: allergic reaction Time Seen by Provider: 12/04/21 14:42 Source: patient Mode of arrival: ambulatory Limitations: no limitations History of Present Illness HPI narrative: 31 year old female presents today with concerns for allergic reaction. Patient has history of multiple visits for this reason. Patient has idiopathic anaphylaxis and is currently undergoing treatment with an semiconductor packages tester. Patient states things are better she started the new medicine second injection coming in the next 2 weeks. Patient says one of her triggers is nuts. Patient went to [employer] and had a shake when she started noting itching and deep breathing. Patient then decided to come to the ER. Related Data Home Medications Medication Instructions Recorded Confirmed ascorbic acid (vitamin C) 1,000 mg 1 gm PO DAILY 05/15/19 10/28/21 tablet cetirizine 10 mg tablet (Zyrtec) 20 mg PO BID 02/27/20 10/28/21 fluticasone propionate 50 1 spray intranasal DAILY 05/18/20 10/28/21 mcg/actuation nasal spray,suspension (Flonase Allergy Relief) famotidine 40 mg tablet 20 mg PO BID 10/28/21 10/28/21 montelukast 10 mg tablet 10 mg PO HS 10/28/21 10/28/21 (Singulair) triamcinolone acetonide 0.1 % 1 applic dental BID PRN ulcers 10/28/21 10/28/21 dental paste Allergies Allergy/AdvReac Type Severity Reaction Status Date / Time hydromorphone Allergy Intermediate Hives / Verified 11/25/21 13:20 Red Face clarithromycin Allergy Mild N/V Verified 11/25/21 13:20 hydrocodone Allergy Mild Itching Verified 11/25/21 13:20 meperidine Allergy Mild Nausea and Verified 11/25/21 13:20 Vomiting albuterol Allergy Unknown SEE NOTE Verified 11/29/21 16:38 azithromycin Allergy Unknown N/V, Verified 11/25/21 13:20 DIARRHEA, ABD CRAMPING. duloxetine Allergy Unknown BULGING Verified 11/25/21 13:20 EYES ondansetron Allergy Unknown PROLONGED Verified 11/25/21 13:20 QT ENERGY DRINKS Allergy Mild ORAL Uncoded 11/25/21 13:20 SWELLING WATERMELON-LEMON [place] SLURPY Allergy Mild ORAL Uncoded 11/25/21 13:20 SWELLING Review of Systems Review of Systems: CONSTITUTIONAL: Denies fever, chills, or sweats. EYES: Denies visual changes, redness, or discharge. ENT: Denies rhinorrhea, congestion, sore throat, or otalgia. CARDIOVASCULAR: Denies chest pain, palpitations, or edema. RESPIRATORY: Dyspnea. Denies cough. GASTROINTESTINAL: Denies abdominal pain, nausea, vomiting, or diarrhea. GENITOURINARY: Denies dysuria or hematuria. SKIN: Rash to neck. Denies itching. MUSCULOSKELETAL: Denies back pain, joint pain, or myalgia. NEUROLOGIC: Denies headache, numbness, dizziness, or weakness. PSYCHIATRIC: Denies anxiety or depression. 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 Irritable bowel syndrome with constipation Mononucleosis (05/2019) Postural orthostatic tachycardia syndrome Scapular dyskinesis Surgical History Surgical History History of arthroscopy of right knee History of endoscopy History of tonsillectomy Tarsal tunnel syndrome, left lower limb [place] teeth extracted Family History Family History Other Adopted Social History Social History Social History: Surrogate decision maker: Armand Koenig, . Code status: Full code. Smoking status: Never smoker Second hand tobacco smoke exposure: No Alcohol intake: current Alcohol use details: Rare alcohol use in moderation. Substance use: never Substance use type: does not use Additional living arrangements comments: Lives in [facility]
[2021-12-04] MEDS: EPINEPHrine HCL INJ 1 MG/ML AMPUL 0.3 MG IM (15:13)
[2021-12-04] MEDS: SODIUM CHLORIDE 0.9% IV 1,000 ML 999 ML IV CONT (15:14)
[2021-12-04] MEDS: methylPREDNISolone SOD SUCC 125 MG VIAL IV PUSH (15:14)
[2021-12-04] MEDS: FAMOTIDINE 20 MG/2 ML VIAL IV PUSH (15:14)
[2021-12-04] MEDS: diazePAM INJ (*CRX) 10 MG/2 ML SYRINGE 5 MG IV PUSH (16:30)
== END 2021-12-04 17:00 | disposition home or self-care (01) ==
PROVIDERS: Emergency Provider Nurse Practitioner Family; PCP Family Medicine
DX: T78.2XXA Anaphylactic shock, unspecified, initial encounter (principal); M26.69 Other specified disorders of temporomandibular joint; J45.909 Unspecified asthma, uncomplicated; Q79.60 Ehlers-Danlos syndrome, unspecified; K58.1 Irritable bowel syndrome with constipation; I49.8 Other specified cardiac arrhythmias
CPT/HCPCS: 96361; 96372; 96374; 96375; 99284; J0171; J2930; J3360; J7030

== ENCOUNTER 2021-12-16 11:29 | Outpatient (CLI) | payer OTHER, SELFPAY ==
--- NOTE | 2021-12-16 11:30 | ECG_ITS ---
Measurements Intervals [place] Rate: 114 P: 52 LA: 120 QRS: 62 QRSD: 105 T: 52 QT: 338 QTc: 466 Interpretive Statements SINUS TACHYCARDIA INCOMPLETE RIGHT BUNDLE BRANCH BLOCK [90+ ms QRS DURATION, TERMINAL R IN V1/V2, 40+ ms S IN I/aVL/V4/V5/V6] ABNORMAL ECG COMPARED TO ECG 07/01/2019 16:07:35 NO SIGNIFICANT CHANGES Electronically Signed On 12-16-2021 12:51:04 CDT by Nabil Mclain M.D.
[2021-12-16 12:05] LABS: Hematocrit 38.2 % (37.0-47.0); Hemoglobin 11.7 g/dL (12.0-15.0)
== END 2021-12-16 11:30 | disposition home or self-care (01) ==
LOC: ANHSURGERY 11:32
PROVIDERS: Anesthesiology; PCP Family Medicine; Visit Provider Podiatrist Foot & Ankle Surgery
DX: I49.8 Other specified cardiac arrhythmias (principal); D64.9 Anemia, unspecified; Z01.818 Encounter for other preprocedural examination; I45.10 Unspecified right bundle-branch block
CPT/HCPCS: 36415; 85014; 85018; 93005

== ENCOUNTER 2021-12-24 00:41 | Day surgery (SDC) | payer OTHER, SELFPAY ==
[2021-12-15 11:13] VITALS: BMI 29.5
--- NOTE | 2021-12-16 08:12 | PC.NURSE ---
Report to the Outpatient Waiting Room, entrance under the green pavilion located off [facility], at time _1000_ on date _12/24/21_. OR Time: _1200_. - You and your visitor will be asked a series of questions to screen for COVID 19 for your protection. - Only one visitor is allowed at this time. - The patient visitor is requested to leave or wait in car when not with patient. - A mask is required within the hospital. Patients may have clear liquids (water, carbonated beverages, clear teas, apple juice) until 3 hours prior to surgery (0900 AM) with a maximum of 20 ounces. - No food from midnight until time of surgery Take the following medications with a SIP of water the morning of surgery: BUSPIRONE, & CYCLOBENZAPRINE, DIAZEPAM, NASAL SPRAY, TRAMADOL IF NEEDED_ Medications to discontinue per physician NONE Date to take last dose Please no make-up, nail turkish, hairspray, perfume, deodorant, or body powder the day of surgery. No jewelry (including any body piercings) or valuables the day of surgery, leave them at home. Please take a shower or bath the night before, or the morning of, surgery with an antibacterial soap. Wear comfortable, loose fitting clothing. - Jewelry must be removed prior to entering the operating room. Rings and piercings that are not removed may be cut off. - The hospital will not accept responsibility for valuables. - Please leave all valuables, including medications, at home the day of surgery. If you are going home after surgery, a licensed equipment driver must drive you home. - NO public transportation without another adult. - We recommend that an adult stay with you for 24 hours following discharge. - We also recommend that you do not drive, make important decision, drink alcoholic beverages, or take any drugs that were not prescribed by your health care provider for at least 24 hours after your discharge time. Follow any additional instructions given to you from your surgeon. If you or anyone in your household have experienced Covid symptoms in the past week, please notify your surgeon or the nurse liaison at the phone number below for possible testing. Telephone instructions given to ____PT and asked if any additional questions and then verbalized understanding. Patient advised to call surgeon office or pre surgery nurse liaison [phone] if any additional questions.
--- NOTE | ~2021-12-24 | XR_ITS ---
EXAMINATION: XR surgery orthopedic DATE: 12/24/2021 13:08 INDICATION: ORIF at the right foot TECHNIQUE: Single dorsal plantar fluoroscopic image of the right forefoot was obtained during procedu re performed by Dr. Dejesus. Radiologist was not present for the imaging or procedure. The amount of fluoroscopy time used during this procedure was 0.1 minutes. COMPARISON: None. FINDINGS: Percutaneous wire fixations of the right second-fourth toes with fixation wires extending from distal to proximal from the tuft of the distal phalanges, spanning the distal and proximal interphalangeal joints and extending to the distal aspect of the second-fourth proximal phalanges. Alignment appears near-anatomic. No fractures identified. IMPRESSION: 1. Fluoroscopy utilized during orthopedic procedure at the right forefoot with axially directed percu taneous wire fixation spanning the proximal distal interphalangeal joints of the second-fourth toes. See procedure note for further detail. Reviewed, dictated and finalized at location B. IMPRESSION: 1. Fluoroscopy utilized during orthopedic procedure at the right forefoot with axially directed percutaneous wire fixation spanning the proximal distal interp halangeal joints of the second-fourth toes. See procedure note for further deta il.
--- NOTE | 2021-12-24 11:14 | WPDANESEPPF ---
Anes - Initial Pre Proc Eval Procedure: Operation Date: 12/24/21 12:00 Proposed Procedures p Open Reduction Internal Fixation Second and Third Toes Right Foot - Pranay Dejesus DPM Date/Time: 12/24/21 11:14 Surgeon: Pranay Dejesus DPM Pre Op Diagnosis: fx of right lesser toe Patient Data Age: 31 Gender: F Height: 1.7 m Weight: 85.45 kg Allergies Allergy/AdvReac Type Severity Reaction Status Date / Time hydromorphone Allergy Intermediate Hives / Verified 12/06/21 16:25 Red Face clarithromycin Allergy Mild N/V Verified 12/06/21 16:25 hydrocodone Allergy Mild Itching Verified 12/06/21 16:25 meperidine Allergy Mild Nausea and Verified 12/06/21 16:25 Vomiting albuterol Allergy Unknown SEE NOTE Verified 12/15/21 11:03 azithromycin Allergy Unknown N/V, Verified 12/06/21 16:25 DIARRHEA, ABD CRAMPING. duloxetine Allergy Unknown BULGING Verified 12/06/21 16:25 EYES ondansetron Allergy Unknown PROLONGED Verified 12/06/21 16:25 QT peanut AdvReac Anaphylaxis, Verified 12/15/21 11:03 HIVES ENERGY DRINKS Allergy Mild ORAL Uncoded 12/06/21 16:25 SWELLING WATERMELON-LEMON [place] SLURPY Allergy Mild ORAL Uncoded 12/06/21 16:25 SWELLING Home Medications Medication Instructions Recorded Confirmed Type cetirizine 10 mg tablet (Zyrtec) 20 mg PO BID 02/27/20 12/15/21 History fluticasone propionate 50 1 spray intranasal DAILY 05/18/20 12/15/21 History mcg/actuation nasal spray,suspension (Flonase Allergy Relief) cyclobenzaprine 5 mg tablet 5 mg PO TID PRN muscle spasm #90 09/19/21 12/15/21 Rx tabs famotidine 40 mg tablet 40 mg PO BID 10/28/21 12/15/21 History montelukast 10 mg tablet 10 mg PO HS 10/28/21 12/15/21 History (Singulair) ferrous sulfate 325 mg (65 mg 325 mg PO DAILY #30 tabs 11/05/21 12/15/21 Rx iron) tablet metoclopramide HCl 10 mg tablet 10 mg PO Q6H PRN nausea and 11/05/21 12/15/21 Rx vomiting #60 tabs trazodone 50 mg tablet 50 mg PO QHS #30 tabs 11/24/21 12/15/21 Rx diazepam 5 mg tablet 5 mg PO TID PRN muscle spasm #30 12/06/21 12/15/21 Rx tabs omalizumab 150 mg subcutaneous 75 mg subcut MONTHLY 12/06/21 12/15/21 History solution (Xolair) tramadol 50 mg tablet 50 mg PO Q6H PRN pain #60 tabs 12/06/21 12/15/21 Rx buspirone 10 mg tablet 10 mg PO BID 12/15/21 12/15/21 History diphenhydramine HCl 50 mg capsule 50 mg PO BID PRN Itching 12/15/21 12/15/21 History epinephrine 0.3 mg/0.3 mL 0.3 mg IM ONCE ALLERGIC REACTIONS 12/15/21 12/15/21 History injection, auto-injector (EpiPen 2-Giacomo) Patient hx anesthesia problems: none Family hx anesthesia problems: none Results Review: All pre-operative results and documents have been reviewed as part of the pre-operative evaluation. 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 Irritable bowel syndrome with constipation Mononucleosis (05/2019) Postural orthostatic tachycardia syndrome Scapular dyskinesis Surgical History Surgical History History of arthroscopy of right knee History of endoscopy History of tonsillectomy Tarsal tunnel syndrome, left lower limb [place] teeth extracted Family History Family History Other Adopted Social History Social History Social History: Surrogate decision maker: Armand Koenig, . Code status: Full code. Smoking status: Never smoker Second hand tobacco smoke exposure: No Alcohol intake: current Alcohol use details: STATES MAYBE 1 A MONTH Substance use: never Substance use type: does not use Living arrangements: with family Additional living arrangements comme
[2021-12-24] MEDS: LACTATED RINGERS 1,000 ML 30 ML IV CONT (11:15)
[2021-12-24 11:34] VITALS: BP 138/87; PULSE 123; RESP 18; TEMP 36.7; O2SAT 100
[2021-12-24] MEDS: SCOPOLAMINE 1.5 MG PATCH TRANSDERM (11:35)
--- NOTE | 2021-12-24 11:45 | WPDHPUPDATE1 ---
History and Physical Update Update Date/Time: 12/24/21 11:45 History and Physical has been reviewed, including an updated exam of the patient. There are NO changes in the patient's condition. Risks, benefits, and alternatives have been discussed and questions answered. Patient agrees to proceed with procedure.
--- NOTE | 2021-12-24 11:45 | PM.IMHP ---
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 Irritable bowel syndrome with constipation Mononucleosis (05/2019) Postural orthostatic tachycardia syndrome Scapular dyskinesis Surgical History Surgical History History of arthroscopy of right knee History of endoscopy History of tonsillectomy Tarsal tunnel syndrome, left lower limb [place] teeth extracted Family History Family History Other Adopted Social History Social History Social History: Surrogate decision maker: Armand Koenig, . Code status: Full code. Smoking status: Never smoker Second hand tobacco smoke exposure: No Alcohol intake: current Alcohol use details: STATES MAYBE 1 A MONTH Substance use: never Substance use type: does not use Living arrangements: with family Additional living arrangements comments: Lives in [place] with her . No children. She is adopted. 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 Spiritual care concerns: No Meds Home Medications and Allergies Home Medications Medication Instructions Recorded Confirmed Type cetirizine 10 mg tablet (Zyrtec) 20 mg PO BID 02/27/20 12/24/21 History fluticasone propionate 50 1 spray intranasal DAILY 05/18/20 12/24/21 History mcg/actuation nasal spray,suspension (Flonase Allergy Relief) cyclobenzaprine 5 mg tablet 5 mg PO TID PRN muscle spasm #90 09/19/21 12/24/21 Rx tabs famotidine 40 mg tablet 40 mg PO BID 10/28/21 12/24/21 History montelukast 10 mg tablet 10 mg PO HS 10/28/21 12/24/21 History (Singulair) ferrous sulfate 325 mg (65 mg 325 mg PO DAILY #30 tabs 11/05/21 12/24/21 Rx iron) tablet metoclopramide HCl 10 mg tablet 10 mg PO Q6H PRN nausea and 11/05/21 12/24/21 Rx vomiting #60 tabs trazodone 50 mg tablet 50 mg PO QHS #30 tabs 11/24/21 12/24/21 Rx diazepam 5 mg tablet 5 mg PO TID PRN muscle spasm #30 12/06/21 12/24/21 Rx tabs omalizumab 150 mg subcutaneous 75 mg subcut MONTHLY 12/06/21 12/24/21 History solution (Xolair) tramadol 50 mg tablet 50 mg PO Q6H PRN pain #60 tabs 12/06/21 12/24/21 Rx buspirone 10 mg tablet 10 mg PO BID 12/15/21 12/24/21 History diphenhydramine HCl 50 mg capsule 50 mg PO BID PRN Itching 12/15/21 12/24/21 History epinephrine 0.3 mg/0.3 mL 0.3 mg IM ONCE ALLERGIC REACTIONS 12/15/21 12/24/21 History injection, auto-injector (EpiPen 2-Giacomo) Allergies Allergy/AdvReac Type Severity Reaction Status Date / Time hydromorphone Allergy Intermediate Hives / Verified 12/06/21 16:25 Red Face clarithromycin Allergy Mild N/V Verified 12/06/21 16:25 hydrocodone Allergy Mild Itching Verified 12/06/21 16:25 meperidine Allergy Mild Nausea and Verified 12/06/21 16:25 Vomiting albuterol Allergy Unknown SEE NOTE Verified 12/15/21 11:03 azithromycin Allergy Unknown N/V, Verified 12/06/21 16:25 DIARRHEA, ABD CRAMPING. duloxetine Allergy Unknown BULGING Verified 12/06/21 16:25 EYES ondansetron Allergy Unknown PROLONGED Verified 12/06/21 16:25 QT peanut AdvReac Anaphylaxis, Verified 12/15/21 11:03 HIVES ENERGY DRINKS Allergy Mild ORAL Uncoded 12/06/21 16:25 SWELLING WATERMELON-LEMON [place] SLURPY Allergy Mild ORAL Uncoded 12/06/21 16:25 SWELLING Vital Signs Vital Signs - 24 hr 12/24/21 11:34 Temperature 36.7 C Pulse Rate 123 H Respiratory Rate 18 Blood Pressure 138/87
--- NOTE | 2021-12-24 12:04 | PHAR ---
SPOKE WITH LOIS COOLEY CRNA CONCERNING MORPHINE PULLED FROM PYXIS. SHE IS AWARE OF PATIENTS ALLERGIES AND WILL SPEAK WITH PATIENT BEFORE GIVING MORPHINE.
[2021-12-24] MEDS: ceFAZolin 2 GM/D5W 50 ML 2 GM/50 ML BAG IVPB (12:05)
[2021-12-24] MEDS: LIDOCAINE HCL 1% PF 30 ML VIAL 10 ML INFILTRATE (12:29)
[2021-12-24 12:54] VITALS: BP 114/95; PULSE 106; RESP 20
[2021-12-24 13:30] VITALS: BP 123/92; PULSE 102; RESP 18
--- NOTE | 2021-12-24 13:55 | P.OPB_ITS ---
Procedure Note - Brief Procedure Note - Brief Date of procedure: 12/24/21 Pre-op diagnosis: fx of right lesser toe Procedure performed: ORIF 2-4 toe right Description of procedure: Under monitored sedation patient was brought into the operating room and placed on the operating table in a supine position. Following IV sedation local anesthesia was obtained around the surgical area on the left foot using 2% Lidocaine plain with 0.5% Marcaine plain. The foot was then scrubbed, prepped, and draped in the usual aseptic manner. An Esmark bandage was used to exsanguinate the patient?s left foot and the ankle tourniquet was inflated. . Attention was then directed to the 2nd digit where a percutanious flexor tenotomy was performed. Next a linear incision made dorsal to the PIPJ. It was deepened down to the level of the PIPJ. Using sharp and blunt dissection a transverse tenotomy was performed at the joint. The joint was reduced into proper position. The joint was then fixated in place using 1, .045 inch K-wire. The procedure was repeated on the 3rd and 4th toes. The wound was then flushed with copious amounts of sterile normal saline. Tendons were repaired with 3-0 vicryl, skin was repaired using 4-0 nylon The wounds were then covered with a dry, sterile compressive dressing consisting of Steristrips, antibiotic ointment, Adaptic, 4 x 4?s, [place]ina and Coban. The ankle tourniquet was deflated and prompt capillary refill response noted to all digits of the right foot. Patient tolerated procedure and anesthesia well. He was transferred to the recovery room with vital signs stable and neurovascular status intact to all digits of the right foot. Following a period of post-operative monitoring the patient will be discharged home with written and oral post-operative instructions.. Implants: 0,45 k-wire x 3 Surgeon: Pranay Dejesus DPM [employer] Umpire: none Complications: No immediate complications Condition: Stable
[2021-12-24] MEDS: oxyCODONE HCL (*CRX) 5 MG TAB IR PO (13:56)
[2021-12-24 14:00] VITALS: BP 130/97; PULSE 100; RESP 16
[2021-12-24 14:30] VITALS: BP 133/94; PULSE 104; RESP 16
== END 2021-12-24 14:45 | disposition home or self-care (01) ==
PROVIDERS: PCP Family Medicine; Visit Provider Podiatrist Foot & Ankle Surgery
PROC: (CPT 28485; principal; 2021-12-24 12:00)
DX: S93.104A Unspecified dislocation of right toe(s), initial encounter (principal); X58.XXXA Exposure to other specified factors, initial encounter; Q79.60 Ehlers-Danlos syndrome, unspecified; J45.909 Unspecified asthma, uncomplicated; I49.8 Other specified cardiac arrhythmias; F41.9 Anxiety disorder, unspecified; M25.319 Other instability, unspecified shoulder
CPT/HCPCS: 28675 ×3; 36415; 85014; 85018; 93005; A9270; C1713; J0690; J1100; J2250; J2270; J2704; J2765; J3010; J7120

== ENCOUNTER 2022-03-18 00:54 | Day surgery (SDC) | payer OTHER, SELFPAY ==
[2022-03-14 10:18] VITALS: BMI 29.3
--- NOTE | 2022-03-14 10:46 | PC.NURSE ---
Report to the Outpatient Waiting Room, entrance under the green pavilion located off [facility], at time 1100 on date _03/18/22. OR Time: 1300__. Time changes happen often and if your time is changed the preop area will call you the afternoon before. - You and your visitor will be asked to self-screen and do not enter if you have any COVID symptoms. - Only one visitor and NO children visitors are allowed at this time. - The patient visitor is requested to leave or wait in car when not with patient due to restrictions. - A mask is required within the hospital. Patients may have clear liquids (water, carbonated beverages, clear teas, apple juice) until 3 hours prior to surgery with a maximum of 20 ounces. - No food from midnight until time of surgery - Infants may have breast milk until 4 hours before surgery, formula 6 hours prior to surgery. - Children will be allowed to drink immediately following surgery. If applicable, please bring a bottle or sippy cup to assist with drinking. Juice, water, soda, and popsicles are readily available. For infants on formula, please bring formula the day of surgery. Pacifiers are allowed. Take the following medications with a SIP of water the morning of surgery: tramadol, reglan, singulair, zyrtec, anti-anxiety_ Medications to discontinue per physician ferrous Date to take last dose_03/15/22__ Please no make-up, nail korean, hairspray, perfume, deodorant, or body powder the day of surgery. No jewelry (including any body piercings) or valuables the day of surgery, leave them at home. Please take a shower or bath the night before, or the morning of, surgery with an antibacterial soap. Wear comfortable, loose fitting clothing. Children are encouraged to wear pajamas. - Jewelry must be removed prior to entering the operating room. Rings and piercings that are not removed may be cut off. - The hospital will not accept responsibility for valuables. - Please leave all valuables, including medications, at home the day of surgery. If you are going home after surgery, a licensed driver education road instructor must drive you home. - NO public transportation without another adult. - We recommend that an adult stay with you for 24 hours following discharge. - We also recommend that you do not drive, make important decision, drink alcoholic beverages, or take any drugs that were not prescribed by your health care provider for at least 24 hours after your discharge time. For Pediatric surgeries, we recommend two adults accompany the child home (only one inside the building at this time). Follow any additional instructions given to you from your surgeon. If you or anyone in your household have experienced Covid symptoms in the past week, please notify your surgeon or the nurse liaison at the phone number below for possible testing. Telephone instructions given to Rosangela Koenig and asked if any additional questions and then verbalized understanding. Patient advised to call surgeon office or pre surgery nurse liaison [phone] if any additional questions.
--- NOTE | 2022-03-17 09:31 | WPDANESEPPF ---
Anes - Initial Pre Proc Eval Procedure: Operation Date: 03/18/22 13:00 Proposed Procedures p Arthroplasty with K-Wire Fifth Toe Right Foot, First Interphalangeal Joint Fusion with Hardware Right Great Toe - Pranay Dejesus DPM Date/Time: 03/17/22 09:31 Surgeon: Pranay Dejesus DPM Pre Op Diagnosis: Hammertoe Fifth Right Foot Patient Data Age: 31 Gender: F Height: 1.7 m Weight: 85 kg Allergies Allergy/AdvReac Type Severity Reaction Status Date / Time hydromorphone Allergy Intermediate Hives / Verified 03/17/22 08:33 Red Face clarithromycin Allergy Mild N/V Verified 03/17/22 08:33 hydrocodone Allergy Mild Itching Verified 03/17/22 08:33 meperidine Allergy Mild Nausea and Verified 03/17/22 08:33 Vomiting albuterol Allergy Unknown SEE NOTE Verified 03/17/22 08:33 azithromycin Allergy Unknown N/V, Verified 03/17/22 08:33 DIARRHEA, ABD CRAMPING. duloxetine Allergy Unknown BULGING Verified 03/17/22 08:33 EYES ondansetron Allergy Unknown PROLONGED Verified 03/17/22 08:33 QT peanut AdvReac Anaphylaxis, Verified 03/17/22 08:33 HIVES tree nut AdvReac Anaphylaxis Verified 03/17/22 08:33 ENERGY DRINKS Allergy Mild ORAL Uncoded 03/17/22 08:33 SWELLING WATER[place]ELON-[place]MON [place] SLURPY Allergy Mild ORAL Uncoded 03/17/22 08:33 SWELLING Home Medications Medication Instructions Recorded Confirmed Type cetirizine 10 mg tablet (Zyrtec) 20 mg PO BID 02/27/20 03/18/22 History fluticasone propionate 50 1 spray intranasal DAILY 05/18/20 03/18/22 History mcg/actuation nasal spray,suspension (Flonase Allergy Relief) cyclobenzaprine 5 mg tablet 5 mg PO TID PRN muscle spasm #90 09/19/21 03/18/22 Rx tabs famotidine 40 mg tablet 40 mg PO BID 10/28/21 03/18/22 History montelukast 10 mg tablet 10 mg PO HS 10/28/21 03/18/22 History (Singulair) ferrous sulfate 325 mg (65 mg 325 mg PO DAILY #30 tabs 11/05/21 03/18/22 Rx iron) tablet omalizumab 150 mg subcutaneous 75 mg subcut MONTHLY 12/06/21 03/18/22 History solution (Xolair) diphenhydramine HCl 50 mg capsule 50 mg PO BID PRN Itching 12/15/21 03/18/22 History epinephrine 0.3 mg/0.3 mL 0.3 mg IM ONCE ALLERGIC REACTIONS 12/15/21 03/17/22 History injection, auto-injector (EpiPen 2-Giacomo) metoclopramide HCl 10 mg tablet 10 mg PO Q6H PRN nausea and 01/11/22 03/18/22 Rx vomiting #60 tabs trazodone 50 mg tablet 50 mg PO QHS #30 tabs 02/13/22 03/18/22 Rx diazepam 5 mg tablet 5 mg PO TID PRN anxiety #90 tabs 02/25/22 03/18/22 Rx tramadol 50 mg tablet 50 mg PO Q6H PRN pain #90 tabs 02/25/22 03/18/22 Rx buspirone 10 mg tablet 10 mg PO BID #60 tabs 03/17/22 03/17/22 Rx mirtazapine 15 mg tablet 15 mg PO QHS #30 tabs 03/17/22 03/17/22 Rx Patient hx anesthesia problems: post op nausea/vomiting Family hx anesthesia problems: none Results Review: All pre-operative results and documents have been reviewed as part of the pre-operative evaluation. 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 Irritable bowel syndrome with constipation Mononucleosis (05/2019) Postural orthostatic tachycardia syndrome Scapular dyskinesis Surgical History Surgical History History of arthroscopy of right knee History of endoscopy History of tonsillectomy Tarsal tunnel syndrome, left lower limb [place] teeth extracted Family History Family History Other Adopted Social History Social History Social History: Surrogate decision maker: Armand Koenig, . Code status: Full code. Smoking status: Never smoker Second hand tobacco smoke exposure: No A
[2022-03-18] MEDS: LACTATED RINGERS 1,000 ML 30 ML IV CONT (12:00)
[2022-03-18 12:03] VITALS: BP 117/72; PULSE 105; RESP 16; TEMP 37.1; O2SAT 99
[2022-03-18 12:05] LABS: Hematocrit 36.3 % (37.0-47.0); Hemoglobin 11.3 g/dL (12.0-15.0)
[2022-03-18] MEDS: SCOPOLAMINE 1.5 MG PATCH TRANSDERM (12:07)
--- NOTE | 2022-03-18 12:17 | PM.IMHP ---
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 Irritable bowel syndrome with constipation Mononucleosis (05/2019) Postural orthostatic tachycardia syndrome Scapular dyskinesis Surgical History Surgical History History of arthroscopy of right knee History of endoscopy History of tonsillectomy Tarsal tunnel syndrome, left lower limb [place] teeth extracted Family History Family History Other Adopted Social History Social History Social History: Surrogate decision maker: Armand Koenig, . Code status: Full code. Smoking status: Never smoker Second hand tobacco smoke exposure: No Alcohol intake: current Alcohol use details: STATES MAYBE 1 A MONTH Substance use: never Substance use type: does not use Living arrangements: with family Additional living arrangements comments: Lives in [place] with her . No children. She is adopted. 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 Spiritual care concerns: No Meds Home Medications and Allergies Home Medications Medication Instructions Recorded Confirmed Type cetirizine 10 mg tablet (Zyrtec) 20 mg PO BID 02/27/20 03/18/22 History fluticasone propionate 50 1 spray intranasal DAILY 05/18/20 03/18/22 History mcg/actuation nasal spray,suspension (Flonase Allergy Relief) cyclobenzaprine 5 mg tablet 5 mg PO TID PRN muscle spasm #90 09/19/21 03/18/22 Rx tabs famotidine 40 mg tablet 40 mg PO BID 10/28/21 03/18/22 History montelukast 10 mg tablet 10 mg PO HS 10/28/21 03/18/22 History (Singulair) ferrous sulfate 325 mg (65 mg 325 mg PO DAILY #30 tabs 11/05/21 03/18/22 Rx iron) tablet omalizumab 150 mg subcutaneous 75 mg subcut MONTHLY 12/06/21 03/18/22 History solution (Xolair) diphenhydramine HCl 50 mg capsule 50 mg PO BID PRN Itching 12/15/21 03/18/22 History epinephrine 0.3 mg/0.3 mL 0.3 mg IM ONCE ALLERGIC REACTIONS 12/15/21 03/17/22 History injection, auto-injector (EpiPen 2-Giacomo) metoclopramide HCl 10 mg tablet 10 mg PO Q6H PRN nausea and 01/11/22 03/18/22 Rx vomiting #60 tabs trazodone 50 mg tablet 50 mg PO QHS #30 tabs 02/13/22 03/18/22 Rx diazepam 5 mg tablet 5 mg PO TID PRN anxiety #90 tabs 02/25/22 03/18/22 Rx tramadol 50 mg tablet 50 mg PO Q6H PRN pain #90 tabs 02/25/22 03/18/22 Rx buspirone 10 mg tablet 10 mg PO BID #60 tabs 03/17/22 03/17/22 Rx mirtazapine 15 mg tablet 15 mg PO QHS #30 tabs 03/17/22 03/17/22 Rx Allergies Allergy/AdvReac Type Severity Reaction Status Date / Time hydromorphone Allergy Intermediate Hives / Verified 03/17/22 08:33 Red Face clarithromycin Allergy Mild N/V Verified 03/17/22 08:33 hydrocodone Allergy Mild Itching Verified 03/17/22 08:33 meperidine Allergy Mild Nausea and Verified 03/17/22 08:33 Vomiting albuterol Allergy Unknown SEE NOTE Verified 03/17/22 08:33 azithromycin Allergy Unknown N/V, Verified 03/17/22 08:33 DIARRHEA, ABD CRAMPING. duloxetine Allergy Unknown BULGING Verified 03/17/22 08:33 EYES ondansetron Allergy Unknown PROLONGED Verified 03/17/22 08:33 QT peanut AdvReac Anaphylaxis, Verified 03/17/22 08:33 HIVES tree nut AdvReac Anaphylaxis Verified 03/17/22 08:3
--- NOTE | 2022-03-18 12:23 | WPDHPUPDATE1 ---
History and Physical Update Update Date/Time: 03/18/22 12:23 History and Physical has been reviewed, including an updated exam of the patient. There are NO changes in the patient's condition. Risks, benefits, and alternatives have been discussed and questions answered. Patient agrees to proceed with procedure.
[2022-03-18] MEDS: ceFAZolin 2 GM/D5W 50 ML 2 GM/50 ML BAG IVPB (12:52)
[2022-03-18] MEDS: KETOROLAC 30 MG/ML VIAL (*BKC) IV PUSH (12:55)
[2022-03-18] MEDS: LIDOCAINE HCL 1% PF 30 ML VIAL 5 ML INFILTRATE (13:15)
[2022-03-18] MEDS: BUPIVACAINE HCL 0.5% PF 30 ML VIAL 5 ML INFILTRATE (13:17)
--- NOTE | 2022-03-18 13:43 | PM.OP ---
Procedure Note - Brief Procedure Note - Brief Date of procedure: 03/18/22 Pre-op diagnosis: Hammertoe Fifth Right Foot Post-op diagnosis: Same Procedure performed: Arthroplasty 5 right Arthrodesis 1 right Description of procedure: Under monitored sedation patient was brought into the operating room and placed on the operating table in a supine position. Following IV sedation local anesthesia was obtained around the surgical area on the right foot using 2% Lidocaine plain with 0.5% Marcaine plain. The foot was then scrubbed, prepped, and draped in the usual aseptic manner. An Esmark bandage was used to exsanguinate the patient?s right foot and the ankle tourniquet was inflated. . Attention was then directed to the 5th digit where a percutanious flexor tenotomy was performed. Next a linear incision made dorsal to the PIPJ. It was deepened down to the level of the PIPJ. Using sharp and blunt dissection a transverse tenotomy was performed at the joint. The joint was reduced into proper position. The joint was then fixated in place using 1, .045 inch K-wire. Next attention was directed to the 1st IPJ right where a linear incision was made. The joint was exposed and the articular surface of the head of the proximal phalanx and the base of the distal phalanx was removed. The toe was then fixated in place with a 3-0 Asnis screw. The wound was then flushed with copious amounts of sterile normal saline. Tendons were repaired with 3-0 vicryl, skin was repaired using 4-0 nylon The wounds were then covered with a dry, sterile compressive dressing consisting of Steristrips, antibiotic ointment, Adaptic, 4 x 4?s, Catalina and Coban. The ankle tourniquet was deflated and prompt capillary refill response noted to all digits of the right foot. Patient tolerated procedure and anesthesia well. He was transferred to the recovery room with vital signs stable and neurovascular status intact to all digits of the right foot. Following a period of post-operative monitoring the patient will be discharged home with written and oral post-operative instructions.. Implants: 0.45 wire. 3.0 Asnis micro screw Anesthesia: GETA Surgeon: Pranay Dejesus DPM Assembler For Puller Over Machine: none Estimated blood loss (mL): 5 Drains: No Packing: No Pathology: None sent Complications: No immediate complications Condition: Stable Disposition: PACU
[2022-03-18 13:50] VITALS: BP 115/66; PULSE 92; RESP 12; O2SAT 100
[2022-03-18] MEDS: fentaNYL CITRATE INJ (*CRX) 100 MCG/2 ML VIAL 25 MCG IV PUSH ×3 (14:02→14:50)
[2022-03-18 14:20] VITALS: BP 111/67; PULSE 94; RESP 16
[2022-03-18 14:50] VITALS: BP 119/78; PULSE 90; RESP 16
[2022-03-18] MEDS: oxyCODONE HCL (*CRX) 5 MG TAB IR PO (14:57)
[2022-03-18] MEDS: diphenhydrAMINE HCl INJ 50 MG/ML VIAL 25 MG IV PUSH (15:10)
== END 2022-03-18 15:30 | disposition home or self-care (01) ==
PROVIDERS: PCP Family Medicine; Visit Provider Podiatrist Foot & Ankle Surgery
PROC: (CPT 28285; principal; 2022-03-18 13:00)
DX: M20.41 Other hammer toe(s) (acquired), right foot (principal); Q79.60 Ehlers-Danlos syndrome, unspecified; K58.1 Irritable bowel syndrome with constipation; I49.8 Other specified cardiac arrhythmias; J45.909 Unspecified asthma, uncomplicated; F41.9 Anxiety disorder, unspecified; G24.9 Dystonia, unspecified
CPT/HCPCS: 28285 ×2; 36415; 85014; 85018; A9270; C1713; J0690; J1100; J1200; J1885; J2250; J2704; J3010; J7120

== ENCOUNTER 2022-05-13 01:58 | Day surgery (SDC) | payer OTHER, SELFPAY ==
[2022-05-09 09:46] VITALS: BMI 29.7
--- NOTE | 2022-05-09 09:52 | PC.NURSE ---
Report to the Outpatient Waiting Room, entrance under the green pavilion located off [facility], at time 0800 on date 05/13/22. Planned Procedure Time: 1000. Time changes happen often and if your time is changed the preop area will call you the afternoon before. - You and your visitor will be asked to self-screen and do not enter if you have any COVID symptoms. - We encourage only one visitor and NO visitors under age 16 are allowed at this time. Your visitor will receive communication by the phone number that is given day of service. - The patient visitor is requested to social distance or may leave the building when not with patient due to restrictions. - A mask is OPTIONAL within the hospital. Patients may have clear liquids (water, carbonated beverages, clear teas, apple juice) until 3 hours prior to surgery with a maximum of 20 ounces. - No food from midnight until time of surgery Take the following medications with a SIP of water the morning of surgery: BUSPIRONE, DIAZEPAM IF NEEDED, REGLAN, TRAMADOL IF NEEDED Medications to discontinue per physician: VITAMINS Date to take last dose: 05/09/22 Please no make-up, nail taiwanese, hairspray, perfume, deodorant, or body powder the day of surgery. No jewelry (including any body piercings) or valuables the day of surgery, leave them at home. Please take a shower or bath the night before, or the morning of, surgery with an antibacterial soap. Wear comfortable, loose fitting clothing. - Jewelry must be removed prior to entering the operating room. Rings and piercings that are not removed may be cut off. - The hospital will not accept responsibility for valuables. - Please leave all valuables, including medications, at home the day of surgery. If you are going home after surgery, a licensed national flatbed truck driver must drive you home. - NO public transportation without another adult. - We recommend that an adult stay with you for 24 hours following discharge. - We also recommend that you do not drive, make important decision, drink alcoholic beverages, or take any drugs that were not prescribed by your health care provider for at least 24 hours after your discharge time. Follow any additional instructions given to you from your surgeon. If you or anyone in your household have experienced Covid symptoms in the past week, please notify your surgeon or the nurse liaison at the phone number below for possible testing. Telephone instructions given to MARINO WINN and asked if any additional questions and then verbalized understanding. Patient advised to call surgeon office or pre surgery nurse liaison [phone] if any additional questions.
[2022-05-13] VITALS (12 sets, daily range): BP systolic 134–155; BP diastolic 90–110; PULSE 101–123; RESP 10–18; TEMP 36.5–37.2; O2SAT 96–100
[2022-05-13] MEDS: LACTATED RINGERS 1,000 ML 30 ML IV CONT ×2 (08:45→12:45)
[2022-05-13] MEDS: fentaNYL CITRATE INJ (*CRX) 100 MCG/2 ML VIAL 50 MCG IV PUSH ×2 (09:10→09:26)
--- NOTE | 2022-05-13 09:18 | WPDANESEPPF ---
Anes - Initial Pre Proc Eval Procedure: Operation Date: 05/13/22 10:00 Proposed Procedures p Open Reduction Internal Fixation One through Five Toes Left Foot - Pranay Dejesus DPM Date/Time: 05/13/22 09:18 Surgeon: Pranay Dejesus DPM Pre Op Diagnosis: IPJ Dislocation 1 thru 5 Lt Foot Patient Data Age: 31 Gender: F Height: 1.7 m Weight: 86.18 kg Allergies Allergy/AdvReac Type Severity Reaction Status Date / Time hydromorphone Allergy Intermediate Hives / Verified 05/09/22 09:44 Red Face clarithromycin Allergy Mild N/V Verified 05/09/22 09:44 hydrocodone Allergy Mild Itching Verified 05/09/22 09:44 meperidine Allergy Mild Nausea and Verified 05/09/22 09:44 Vomiting albuterol Allergy Unknown SEE NOTE Verified 05/09/22 09:44 azithromycin Allergy Unknown N/V, Verified 05/09/22 09:44 DIARRHEA, ABD CRAMPING. duloxetine Allergy Unknown BULGING Verified 05/09/22 09:44 EYES ondansetron Allergy Unknown PROLONGED Verified 05/09/22 09:44 QT peanut AdvReac Anaphylaxis, Verified 05/09/22 09:44 HIVES tree nut AdvReac Anaphylaxis Verified 05/09/22 09:44 ENERGY DRINKS Allergy Mild ORAL Uncoded 05/09/22 09:44 SWELLING [place] Allergy Mild ORAL Uncoded 05/09/22 09:44 SWELLING Home Medications Medication Instructions Recorded Confirmed Type cetirizine 10 mg tablet (Zyrtec) 20 mg PO BID 02/27/20 05/09/22 History fluticasone propionate 50 1 spray intranasal DAILY 05/18/20 05/09/22 History mcg/actuation nasal spray,suspension (Flonase Allergy Relief) famotidine 40 mg tablet 40 mg PO BID 10/28/21 05/09/22 History montelukast 10 mg tablet 10 mg PO HS 10/28/21 05/09/22 History (Singulair) ferrous sulfate 325 mg (65 mg 325 mg PO DAILY #30 tabs 11/05/21 05/09/22 Rx iron) tablet omalizumab 150 mg subcutaneous 75 mg subcut MONTHLY 12/06/21 05/09/22 History solution (Xolair) diphenhydramine HCl 50 mg capsule 50 mg PO BID PRN Itching 12/15/21 05/09/22 History epinephrine 0.3 mg/0.3 mL 0.3 mg IM ONCE ALLERGIC REACTIONS 12/15/21 05/09/22 History injection, auto-injector (EpiPen 2-Giacomo) buspirone 10 mg tablet 10 mg PO BID #60 tabs 03/17/22 05/09/22 Rx mirtazapine 15 mg tablet 15 mg PO QHS #30 tabs 03/17/22 05/09/22 Rx metoclopramide HCl 10 mg tablet 10 mg PO Q6H PRN nausea and 03/31/22 05/09/22 Rx vomiting #60 tabs cyclobenzaprine 5 mg tablet 5 mg PO TID PRN muscle spasm #90 04/05/22 05/09/22 Rx tabs trazodone 50 mg tablet 50 mg PO QHS #30 tabs 04/21/22 05/09/22 Rx diazepam 5 mg tablet 5 mg PO TID PRN anxiety #90 tabs 04/26/22 05/09/22 Rx triamcinolone acetonide 0.1 % 1 applic dental BID #5 grams 05/02/22 05/09/22 Rx dental paste tramadol 50 mg tablet 50 mg PO Q6H PRN pain #90 tabs 05/10/22 Rx Patient hx anesthesia problems: none Family hx anesthesia problems: none Results Review: All pre-operative results and documents have been reviewed as part of the pre-operative evaluation. 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 Irritable bowel syndrome with constipation Mononucleosis (05/2019) Postural orthostatic tachycardia syndrome Scapular dyskinesis Surgical History Surgical History History of arthroscopy of right knee History of endoscopy History of tonsillectomy Tarsal tunnel syndrome, left lower limb [place] teeth extracted Family History Family History Other Adopted Social History Social History Social History: Surrogate decision maker: Armand Koenig, . Code status: Full code. Smoking status: Never smo
[2022-05-13] MEDS: SCOPOLAMINE 1.5 MG PATCH TRANSDERM (09:22)
--- NOTE | 2022-05-13 09:50 | WPDHPUPDATE1 ---
History and Physical Update Update Date/Time: 05/13/22 09:50 History and Physical has been reviewed, including an updated exam of the patient. There are NO changes in the patient's condition. Risks, benefits, and alternatives have been discussed and questions answered. Patient agrees to proceed with procedure.
[2022-05-13] MEDS: ceFAZolin 2 GM/D5W 50 ML 2 GM/50 ML BAG IVPB (10:02)
[2022-05-13] MEDS: BUPIVACAINE HCL 0.5% PF 30 ML VIAL INFILTRATE (11:07)
[2022-05-13] MEDS: NEOMYCIN/POLYMYXIN/BACITRACIN OINTMENT 15 GM TUBE 1 APPLIC TOPICAL (11:09)
--- NOTE | 2022-05-13 11:14 | P.OPB_ITS ---
Procedure Note - Brief Procedure Note - Brief Date of procedure: 05/13/22 Pre-op diagnosis: IPJ Dislocation 1 thru 5 Lt Foot same Procedure performed: ORIF 1-5 digits left Description of procedure: Under monitored sedation patient was brought into the operating room and placed on the operating table in a supine position. Following IV sedation local anesthesia was obtained around the surgical area on the left foot using 2% Lidocaine plain with 0.5% Marcaine plain. The foot was then scrubbed, prepped, and draped in the usual aseptic manner. An Esmark bandage was used to exsanguinate the patient?s right foot and the ankle tourniquet was inflated. . Attention was then directed to the 2nd digit where a percutanious flexor tenotomy was performed. Next a linear incision made dorsal to the PIPJ. It was deepened down to the level of the PIPJ. Using sharp and blunt dissection a transverse tenotomy was performed at the joint. The joint was reduced into proper position. The joint was then fixated in place using 1, .045 inch K-wire. This procedure was repeated on digits 3-5 Next attention was directed to the 1st IPJ left where a linear incision was made. The joint was exposed and the articular surface of the head of the proximal phalanx and the base of the distal phalanx was removed. The toe was then fixated in place with a 3-0 Asnis screw. The wound was then flushed with copious amounts of sterile normal saline. Tendons were repaired with 3-0 vicryl, skin was repaired using 4-0 nylon The wounds were then covered with a dry, sterile compressive dressing consisting of Steristrips, antibiotic ointment, Adaptic, 4 x 4?s, Catalina and Coban. The ankle tourniquet was deflated and prompt capillary refill response noted to all digits of the right foot. Patient tolerated procedure and anesthesia well. He was transferred to the recovery room with vital signs stable and neurovascular status intact to all digits of the right foot. Following a period of post-operative monitoring the patient will be discharged home with written and oral post-operative instructions.. Implants: .045 k-wire x 4 40mm 3.0 Asnis screw Surgeon: Pranay Dejesus DPM Weigh Box Tender: none Estimated blood loss (mL): 2
[2022-05-13] MEDS: diphenhydrAMINE HCl INJ 50 MG/ML VIAL 25 MG IV PUSH (11:34)
[2022-05-13] MEDS: fentaNYL CITRATE INJ (*CRX) 100 MCG/2 ML VIAL 25 MCG IV PUSH ×12 (11:44→14:11)
== END 2022-05-13 14:49 | disposition home or self-care (01) ==
PROVIDERS: PCP Family Medicine; Visit Provider Podiatrist Foot & Ankle Surgery
PROC: (CPT 28485; principal; 2022-05-13 10:00)
DX: S93.112A Dislocation of interphalangeal joint of left great toe, initial encounter (principal); S93.115A Dislocation of interphalangeal joint of left lesser toe(s), initial encounter; X58.XXXA Exposure to other specified factors, initial encounter; Q79.60 Ehlers-Danlos syndrome, unspecified; J45.909 Unspecified asthma, uncomplicated; K58.1 Irritable bowel syndrome with constipation; G24.9 Dystonia, unspecified; G90.A Postural orthostatic tachycardia syndrome [POTS]; F41.9 Anxiety disorder, unspecified
CPT/HCPCS: 28675 ×4; 28755; A9270; C1713; J0690; J1100; J1200; J2250; J2704; J3010; J7120

== ENCOUNTER 2022-05-22 16:42 | Emergency (ER) | payer OTHER, SELFPAY ==
[2022-05-22 16:57] VITALS: BP 141/106; PULSE 124; RESP 16; TEMP 36.6; O2SAT 98
--- NOTE | 2022-05-22 17:13 | ED.WOUNDLAC ---
HPI - Wound/Laceration General Chief Complaint: Wound/Laceration Stated Complaint: wound on rt arm Time Seen by Provider: 05/22/22 17:00 Source: patient Mode of arrival: ambulatory Limitations: no limitations History of Present Illness HPI narrative: patient presents today with a 9-10 day history of a wound to her right forearm. Reports it started out as 2 puncture wounds. It then became red and pus filled. This area popped today and she reports, the puss slid off and she was left with an open wound. she has been cleaning with soap and water, using back to Neosporin. Denies any history of abscesses, staph infections, boils. She has been taking ibuprofen without relief. Related Data Home Medications Medication Instructions Recorded Confirmed cetirizine 10 mg tablet (Zyrtec) 20 mg PO BID 02/27/20 05/09/22 fluticasone propionate 50 1 spray intranasal DAILY 05/18/20 05/09/22 mcg/actuation nasal spray,suspension (Flonase Allergy Relief) famotidine 40 mg tablet 40 mg PO BID 10/28/21 05/09/22 montelukast 10 mg tablet 10 mg PO HS 10/28/21 05/09/22 (Singulair) omalizumab 150 mg subcutaneous 75 mg subcut MONTHLY 12/06/21 05/09/22 solution (Xolair) diphenhydramine HCl 50 mg capsule 50 mg PO BID PRN Itching 12/15/21 05/09/22 epinephrine 0.3 mg/0.3 mL 0.3 mg IM ONCE ALLERGIC REACTIONS 12/15/21 05/09/22 injection, auto-injector (EpiPen 2-Giacomo) Allergies Allergy/AdvReac Type Severity Reaction Status Date / Time hydromorphone Allergy Intermediate Hives / Verified 05/22/22 16:54 Red Face clarithromycin Allergy Mild N/V Verified 05/22/22 16:54 hydrocodone Allergy Mild Itching Verified 05/22/22 16:54 meperidine Allergy Mild Nausea and Verified 05/22/22 16:54 Vomiting albuterol Allergy Unknown SEE NOTE Verified 05/22/22 16:54 azithromycin Allergy Unknown N/V, Verified 05/22/22 16:54 DIARRHEA, ABD CRAMPING. duloxetine Allergy Unknown BULGING Verified 05/22/22 16:54 EYES ondansetron Allergy Unknown PROLONGED Verified 05/22/22 16:54 QT peanut AdvReac Anaphylaxis, Verified 05/22/22 16:54 HIVES tree nut AdvReac Anaphylaxis Verified 05/22/22 16:54 ENERGY DRINKS Allergy Mild ORAL Uncoded 05/22/22 16:54 SWELLING WATERMELON-[place]MON [place] SLURPY Allergy Mild ORAL Uncoded 05/22/22 16:54 SWELLING Review of Systems Review of Systems: CONSTITUTIONAL: Denies body aches, fever, chills, or sweats. EYES: Denies visual changes, redness, or discharge. ENT: Denies rhinorrhea, congestion, sore throat, or otalgia. CARDIOVASCULAR: Denies chest pain, palpitations, or edema. RESPIRATORY: Denies cough or dyspnea. GASTROINTESTINAL: Denies abdominal pain, nausea, vomiting, or diarrhea. GENITOURINARY: Denies dysuria or hematuria. SKIN: Denies rash, itching. + Right forearm wound MUSCULOSKELETAL: Denies back pain, joint pain, or myalgia. NEUROLOGIC: Denies headache, numbness, tingling, or weakness. PSYCH: Denies depression or anxiety. 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 Irritable bowel syndrome with constipation Mononucleosis (05/2019) Postural orthostatic tachycardia syndrome Scapular dyskinesis Surgical History Surgical History History of arthroscopy of right knee History of endoscopy History of tonsillectomy Tarsal tunnel syndrome, left lower limb [place] teeth extracted Family History Family History Other Adopted Social History Social History Social History: Surrogate decision maker: Armand Koenig, . Code status: Full code. Smoking status: Never
== END 2022-05-22 17:24 | disposition home or self-care (01) ==
PROVIDERS: Emergency Provider Nurse Practitioner; PCP Family Medicine
DX: S50.911A Unspecified superficial injury of right forearm, initial encounter (principal); T14.90XA Injury, unspecified, initial encounter; J45.909 Unspecified asthma, uncomplicated
CPT/HCPCS: 87070; 87075; 87205; 99213; G0463

== ENCOUNTER 2022-05-24 19:32 | Emergency (ER) | payer OTHER, SELFPAY ==
[2022-05-24] VITALS (9 sets, daily range): BP systolic 123–140; BP diastolic 79–98; PULSE 130–140; RESP 13–16; TEMP 36.7–37.2; O2SAT 95–99
--- NOTE | ~2022-05-24 | CT_ITS ---
EXAMINATION: CT abdomen pelvis w con DATE: 05/24/2022 22:45 INDICATION: Right upper quadrant abdominal pain. Nausea and vomiting. Abnormal liver function tests. TECHNIQUE: Computed tomography (CT) of the abdomen and pelvis was performed with 100 mL Omnipaque 350 intravenous contrast. Automated exposure control and iterative reconstruction technique were employe d. The dose-length product was 639.09 mGy-cm. COMPARISON: CT abdomen and pelvis 07/01/2019 FINDINGS: The visualized portions of the lung bases demonstrate mild atelectasis. No pleural effusion . The heart size is normal. No pericardial effusion. The liver and spleen are normal. The gallbladder is normal in size. The pancreas, adrenal glands, and kidneys are normal. The appendix is normal. The re is a large volume of stool in the colon. There are no pathologically enlarged lymph nodes. There i s no free intraperitoneal fluid. There is mild thoracolumbar spondylosis. IMPRESSION: 1. Large volume of stool in the colon. Reviewed, dictated and finalized at location A. [employer] INSPECTOR
--- NOTE | 2022-05-24 21:28 | ECG_ITS ---
Measurements Intervals [place] Rate: 126 P: 51 IN: 141 QRS: 49 QRSD: 102 T: 39 QT: 403 QTc: 585 Interpretive Statements SINUS TACHYCARDIA INCOMPLETE RIGHT BUNDLE BRANCH BLOCK NONSPECIFIC T-WAVE ABNORMALITY- INFERIOR LEADS BASELINE ARTIFACT- I, III, AVL ABNORMAL ECG COMPARED TO ECG 12/16/2021 11:58:49 T-WAVE ABNORMALITY NOW PRESENT Electronically Signed On 05-25-2022 9:06:03 AERIAL PHOTOGRAPH INTERPRETER by Dickson Harvey D.O.
[2022-05-24 22:05] LABS: Basophils Absolute Auto 0.1 K/mm3 (0.0-0.1); Basophils Percent Auto 0.8 % (0.2-1.2); Eosinophils Absolute Auto 0.3 K/mm3 (0-0.3); Eosinophils Percent Auto 3.2 % (0-4.4); Hematocrit 37.5 % (37.0-47.0); Hemoglobin 11.7 g/dL (12.0-15.0); Immature Granulocyte Absolute 0.02 K/mm3 (0.00-0.031); Immature Granulocyte Percent A 0.2 % (0-0.5); Lymphocytes Absolute Auto 2.15 K/mm3 (0.9-3.2); Lymphocytes Percent Auto 24.9 % (18.3-44.2); Mean Corpuscular HGB Conc 31.2 g/dl (32-36); Mean Corpuscular Hemoglobin 26.4 pg (26-34); Mean Corpuscular Volume 84.7 fl (80-100); Mean Platelet Volume 9.9 fl (7.4-10.4); Monocytes Percent Auto 11.6 % (2.6-8.5); Neutrophils Absolute Auto 5.1 K/mm3 (1.3-6.7); Neutrophils Percent Auto 59.3 % (45.5-73.1); Platelet Count Result 454 k/mm3 (150-375); Red Blood Count 4.43 M/mm3 (4.2-5.4); Red Cell Distribution Width 13.9 % (11.5-14.5); White Blood Count 8.6 K/mm3 (4.5-10.0)
--- NOTE | 2022-05-24 22:05 | ED.GENADULT ---
HPI - General Adult General Chief complaint: Wound/Laceration <JUAN Dee Last Filed: 05/25/22 04:16> Stated complaint: ?staph <JUAN Dee Last Filed: 05/25/22 04:16> Time Seen by Provider: 05/24/22 20:15 <JUAN Dee Last Filed: 05/25/22 04:16> Source: patient and old records reviewed <JUAN Dee Last Filed: 05/25/22 04:16> Mode of arrival: ambulatory <JUAN Dee Last Filed: 05/25/22 04:16> Limitations: no limitations <JUAN Dee Last Filed: 05/25/22 04:16> History of Present Illness HPI narrative: Patient is a 32-year-old female who presents the ED with report of nausea, vomiting, wounds to upper extremities. Patient reports having wounds to her bilateral forearms for the past few weeks. She states the wound on her right arm became blister-like with pus and spontaneously popped 2 days ago. She was seen at an UC and had the wound cultured. Per records, no growth to date. She was Rx'd bactrim and has been taking this as prescribed. Tonight, she developed nausea and vomiting, which prompted her presentation. She denies any significant abdominal pain, fever, diarrhea, constipation, dysuria, hematuria, cough, cold sx's. Patient had foot surgery on 05/13 for dislocated toes. 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 <JUAN Dee Last Filed: 05/25/22 04:16> Related Data Home medications: Home Medications Medication Instructions Recorded Confirmed cetirizine 10 mg tablet (Zyrtec) 20 mg PO BID 02/27/20 05/22/22 fluticasone propionate 50 1 spray intranasal DAILY 05/18/20 05/22/22 mcg/actuation nasal spray,suspension (Flonase Allergy Relief) famotidine 40 mg tablet 40 mg PO BID 10/28/21 05/22/22 montelukast 10 mg tablet 10 mg PO HS 10/28/21 05/22/22 (Singulair) omalizumab 150 mg subcutaneous 75 mg subcut MONTHLY 12/06/21 05/22/22 solution (Xolair) diphenhydramine HCl 50 mg capsule 50 mg PO BID PRN Itching 12/15/21 05/22/22 epinephrine 0.3 mg/0.3 mL 0.3 mg IM ONCE ALLERGIC REACTIONS 12/15/21 05/22/22 injection, auto-injector (EpiPen 2-Giacomo) ibuprofen 800 mg tablet 800 mg PO Q8H 05/22/22 05/22/22 ibuprofen 800 mg tablet 800 mg PO TID 05/23/22 05/24/22 oxycodone-acetaminophen 10 mg-325 1 tablet PO Q4H PRN 05/23/22 05/24/22 mg tablet (Percocet) <Mary Rivera PA-C - Last Filed: 05/25/22 04:16> Allergies/adverse reactions: Allergies Allergy/AdvReac Type Severity Reaction Status Date / Time hydromorphone Allergy Intermediate Hives / Verified 05/23/22 16:31 Red Face clarithromycin Allergy Mild N/V Verified 05/23/22 16:31 hydrocodone Allergy Mild Itching Verified 05/24/22 21:13 meperidine Allergy Mild Nausea and Verified 05/24/22 21:13 Vomiting albuterol Allergy Unknown SEE NOTE Verified 05/24/22 21:13 azithromycin Allergy Unknown N/V, Verified 05/24/22 21:13 DIARRHEA, ABD CRAMPING. duloxetine Allergy Unknown BULGING Verified 05/24/22 21:13 EYES ondansetron Allergy Unknown PROLONGED Verified 05/24/22 21:13 QT peanut AdvReac Anaphylaxis, Verified 05/24/22 21:13 HIVES tree nut AdvReac Anaphylaxis Verified 05/24/22 21:13 ENERGY DRINKS Allergy Mild ORAL Uncoded 05/24/22 21:13 SWELLING WATERMELON-LEMON [place] SLURPY Allergy Mild ORAL Uncoded 05/24/22 21:13 SWELLING <Mary Rivera PA-C - Last Filed: 05/25/22 04:16> Review of Systems Review of Systems: CONSTITUTIONAL: Denies fever, chills, or sweats. ENT: Denies rhinorrhea, congestion, sore throat. CARDIOVASCULAR: Denies chest pain. RESPIRATORY: Denies cough or dyspnea. GASTROINTESTINAL: Reports nausea, vomiting. Denies abdominal pain or diarrhea. GENITOURINARY: Denies dysuria or hematuria. SKIN: Reports wounds to bilateral forearms. <Mary Rivera PA-C - Last Filed: 05/25/22 04:16> CONSTITUTIONAL: Denies night
[2022-05-24 22:19] LABS: Lactic Acid Reflex 0.7 mmol/L (0.7-2.0)
[2022-05-24 22:20] LABS: Alanine Aminotransferase 100 U/L (6-35); Albumin Level 4.6 g/dL (3.5-5.1); Alkaline Phosphatase 143 U/L (38-126); Anion Gap 8 mmol/L (8-16); Aspartate Amino Transferase 68 U/L (14-36); Bilirubin,Total 0.2 mg/dL (0.2-1.3); Blood Urea Nitrogen 20 mg/dL (7-17); Calcium 9.5 mg/dL (8.4-10.2); Carbon Dioxide 26 mmol/L (22-30); Chloride 102 mmol/L (98-107); Estimated CRCL calculation 112 ml/min; Estimated Glomerular Filt Rate > 60; Glucose 102 mg/dL (65-110); Potassium 3.8 mmol/L (3.4-5.0); Sodium 136 mmol/L (137-145)
[2022-05-24 23:32] LABS: Appearance Urine Clear (Clear); Bilirubin Urine Negative (Negative); Blood Urine Trace-intact (Negative); Color Urine Yellow (Yellow); Glucose Urine UA Negative (Negative); Ketones Urine Negative (Negative); Leukocyte Esterase Ur Negative LEU/UL (Negative); Nitrate Urine Negative (Negative); Protein Urine Negative (Negative); Urobilinogen Urine 0.2 mg/dL (<2.0)
[2022-05-24 23:35] LABS: Bacteria Urine Trace /hpf; Mucus Urine Rare /lpf; Squamous Epithelial Cell Urine Many /hpf (Few); Transitional Epi Cells Urine Rare /hpf (None Seen)
[2022-05-24 23:39] LABS: Add Urine Microscopic? YES
[2022-05-24] MEDS: SODIUM CHLORIDE 0.9% IV 1,000 ML 999 ML IV CONT (23:53)
[2022-05-25] VITALS (25 sets, daily range): BP systolic 119–141; BP diastolic 78–104; PULSE 114–136; RESP 12–20; TEMP 37.2; O2SAT 95–99
[2022-05-25] MEDS: MIDAZOLAM HCL (*CRX) 2 MG/2 ML VIAL IV PUSH (01:13)
--- NOTE | 2022-05-25 02:28 | PC.NURSE ---
0228 Mary LYN administered 50 mg propofol 0230 Mary Lyn administered 40 mg propofol
== END 2022-05-25 03:50 | disposition home or self-care (01) ==
PROVIDERS: Physician Assistant; Emergency Provider Emergency Medicine; PCP Family Medicine
DX: S03.00XA Dislocation of jaw, unspecified side, initial encounter (principal); R10.11 Right upper quadrant pain; R93.3 Abnormal findings on diagnostic imaging of other parts of digestive tract; S50.912A Unspecified superficial injury of left forearm, initial encounter; S50.911A Unspecified superficial injury of right forearm, initial encounter; F41.9 Anxiety disorder, unspecified; Q79.60 Ehlers-Danlos syndrome, unspecified; X58.XXXA Exposure to other specified factors, initial encounter
CPT/HCPCS: 21480; 36415; 74177; 80053; 81001; 81025; 83605; 85025; 87040; 87086; 87088; 93005; 96365; 96375; 99285; J0131; J2250; J7030; Q9967

== ENCOUNTER 2022-06-07 13:45 | Outpatient (CLI) | payer OTHER, SELFPAY ==
[2022-06-07 15:29] LABS: Influenza A QL RT-PCR Negative (Negative); Influenza B QL RT-PCR Negative (Negative); SARS-CoV-2 RNA PCR Negative
== END 2022-06-07 13:46 | disposition home or self-care (01) ==
PROVIDERS: PCP Family Medicine; Visit Provider Family Medicine
DX: J06.9 Acute upper respiratory infection, unspecified (principal)
CPT/HCPCS: 87636

== ENCOUNTER 2022-06-28 13:25 | Emergency (ER) | payer OTHER, SELFPAY ==
[2022-06-28 13:28] VITALS: BP 149/112; PULSE 100; RESP 20; TEMP 36.4; O2SAT 94
[2022-06-28 13:46] VITALS: PULSE 108; RESP 15; O2SAT 97
--- NOTE | 2022-06-28 15:08 | ED.GENADULT ---
HPI - General Adult General Chief complaint: Epistaxis Stated complaint: nose bleed Time Seen by Provider: 06/28/22 13:59 History of Present Illness HPI narrative: 32-year-old female presented with nasal bleeding to the left side for the last several hours. Per patient, this morning she noted bleeding on her left nose with continued bleeding despite its compression so presented to the ED for further evaluation. She denied trauma to the area, headache, nausea, vomiting, dizziness, chest pain, shortness of breath, fevers, chills. Related Data Home Medications Medication Instructions Recorded Confirmed cetirizine 10 mg tablet (Zyrtec) 20 mg PO BID 02/27/20 05/22/22 fluticasone propionate 50 1 spray intranasal DAILY 05/18/20 05/22/22 mcg/actuation nasal spray,suspension (Flonase Allergy Relief) famotidine 40 mg tablet 40 mg PO BID 10/28/21 05/22/22 montelukast 10 mg tablet 10 mg PO HS 10/28/21 05/22/22 (Singulair) omalizumab 150 mg subcutaneous 75 mg subcut MONTHLY 12/06/21 05/22/22 solution (Xolair) diphenhydramine HCl 50 mg capsule 50 mg PO BID PRN Itching 12/15/21 05/22/22 epinephrine 0.3 mg/0.3 mL 0.3 mg IM ONCE ALLERGIC REACTIONS 12/15/21 05/22/22 injection, auto-injector (EpiPen 2-Giacomo) ibuprofen 800 mg tablet 800 mg PO Q8H 05/22/22 05/22/22 ibuprofen 800 mg tablet 800 mg PO TID 05/23/22 05/24/22 oxycodone-acetaminophen 10 mg-325 1 tablet PO Q4H PRN 05/23/22 05/24/22 mg tablet (Percocet) Allergies Allergy/AdvReac Type Severity Reaction Status Date / Time hydromorphone Allergy Intermediate Hives / Verified 06/28/22 13:43 Red Face clarithromycin Allergy Mild N/V Verified 06/28/22 13:43 hydrocodone Allergy Mild Itching Verified 06/28/22 13:43 meperidine Allergy Mild Nausea and Verified 06/28/22 13:43 Vomiting albuterol Allergy Unknown SEE NOTE Verified 06/28/22 13:43 azithromycin Allergy Unknown N/V, Verified 06/28/22 13:43 DIARRHEA, ABD CRAMPING. 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 Irritable bowel syndrome with constipation Mononucleosis (05/2019) Postural orthostatic tachycardia syndrome Scapular dyskinesis Surgical History Surgical History History of arthroscopy of right knee History of endoscopy History of tonsillectomy Tarsal tunnel syndrome, left lower limb [place] teeth extracted Family History Family History Other Adopted Social History Social History Social History: Surrogate decision maker: Armand Koenig, . Code status: Full code. Smoking status: Never smoker Second hand tobacco smoke exposure: No Alcohol intake: current Alcohol use details: VERY RARE Substance use: never Substance use type: does not use Lack of Transportation: No Lack of Food: Never True Current Housing: I Have Housing Concerned About Future Housing: No Difficulty Paying Gas/Electric Bills: No Difficulty Paying for Meds: No Currently Unemployed: No Education: High School Diploma/GED Difficulty w/ Childcare or Family Care: No Additional living arrangements comments: Lives in [place] with her . No chil
[2022-06-28 16:18] VITALS: BP 133/92; PULSE 100; RESP 18; O2SAT 98
== END 2022-06-28 16:19 | disposition home or self-care (01) ==
PROVIDERS: Emergency Provider Emergency Medicine; PCP Family Medicine
DX: R04.0 Epistaxis (principal); F41.9 Anxiety disorder, unspecified; J45.909 Unspecified asthma, uncomplicated
CPT/HCPCS: 99283; A9270

== ENCOUNTER 2022-09-08 13:35 | Emergency (ER) | payer OTHER, SELFPAY ==
[2022-09-08] VITALS (11 sets, daily range): BP systolic 135–156; BP diastolic 79–103; PULSE 128–147; RESP 13–20; TEMP 36.6; O2SAT 98–100
[2022-09-08] MEDS: EPINEPHrine HCL INJ 1 MG/ML AMPUL 0.3 MG IM ×2 (14:00→16:10)
--- NOTE | 2022-09-08 14:02 | ED.ALLEREA ---
HPI - Allergic Reaction General Chief complaint: Allergic Reaction Stated complaint: allergic reaction - throat clearing Time Seen by Provider: 09/08/22 13:52 History of Present Illness HPI narrative: Patient is a 32-year-old female with a history of idiopathic anaphylaxis presenting with an allergic reaction. Patient states that she was in her normal state of health earlier today. She went to [facility] and shortly after trying her drink she developed throat tightness, shortness of breath, nausea. States that she started to wheeze. She gave herself IM epi approximately 30 minutes prior to arrival. States this feels typical of her anaphylactic reactions. States that the IM epi helped but she still feels like her throat is somewhat tight. Denies further complaints. Related Data Home Medications Medication Instructions Recorded Confirmed cetirizine 10 mg tablet (Zyrtec) 20 mg PO BID 02/27/20 07/13/22 fluticasone propionate 50 1 spray intranasal DAILY 05/18/20 07/13/22 mcg/actuation nasal spray,suspension (Flonase Allergy Relief) famotidine 40 mg tablet 40 mg PO BID 10/28/21 07/13/22 montelukast 10 mg tablet 10 mg PO HS 10/28/21 07/13/22 (Singulair) omalizumab 150 mg subcutaneous 75 mg subcut MONTHLY 12/06/21 07/13/22 solution (Xolair) diphenhydramine HCl 50 mg capsule 50 mg PO BID PRN Itching 12/15/21 07/13/22 epinephrine 0.3 mg/0.3 mL 0.3 mg IM ONCE ALLERGIC REACTIONS 12/15/21 07/13/22 injection, auto-injector (EpiPen 2-Giacomo) ferrous sulfate 325 mg (65 mg 325 mg PO EVERY OTHER DAY 07/07/22 07/13/22 iron) tablet calcium citrate 1,000 mg tablet 1,800 mg PO DAILY 07/13/22 07/13/22 medroxyprogesterone 2.5 mg tablet 2.5 mg PO DAILY 07/13/22 07/13/22 (Provera) Allergies Allergy/AdvReac Type Severity Reaction Status Date / Time peanut Allergy Severe Anaphylaxis, Verified 09/08/22 13:54 HIVES tree nut Allergy Severe Anaphylaxis Verified 09/08/22 13:54 hydromorphone Allergy Intermediate Hives / Verified 07/13/22 08:36 Red Face clarithromycin Allergy Mild N/V Verified 07/13/22 08:36 hydrocodone Allergy Mild Itching Verified 07/13/22 08:36 meperidine Allergy Mild Nausea and Verified 07/13/22 08:36 Vomiting albuterol Allergy Unknown SEE NOTE Verified 07/13/22 08:36 azithromycin Allergy Unknown N/V, Verified 07/13/22 08:36 DIARRHEA, ABD CRAMPING. 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 Irritable bowel syndrome with constipation Mononucleosis (05/2019) Postural orthostatic tachycardia syndrome Scapular dyskinesis Surgical History Surgical History History of arthroscopy of right knee History of endoscopy History of tonsillectomy Tarsal tunnel syndrome, left lower limb [place] teeth extracted Family History Family History Other Adopted Social History Social History Social History: Surrogate decision maker: Armand Koenig, . Code status: Full code. Smoking status: Never smoker Second hand tobacco smoke exposure: No Alcohol intake: current Alcohol use details: VERY RARE Substance use: never Substance use type: does not use Lack of Transportation: No Lack
[2022-09-08] MEDS: methylPREDNISolone SOD SUCC 125 MG VIAL IV PUSH (14:03)
[2022-09-08] MEDS: diphenhydrAMINE HCl INJ 50 MG/ML VIAL IV PUSH (14:03)
[2022-09-08] MEDS: FAMOTIDINE 20 MG/2 ML VIAL IV PUSH (14:05)
[2022-09-08] MEDS: SODIUM CHLORIDE 0.9% IV 1,000 ML 999 ML IV CONT ×2 (14:06→16:11)
--- NOTE | 2022-09-08 14:08 | PC.NURSE ---
pt c/o feeling lightheaded. hob lowered. bp 150/94 p 145 r 16 pulse ox 100% room air. cool cloth provided. family at bedside.
--- NOTE | 2022-09-08 14:56 | PC.NURSE ---
pt amb to bathroom. states is feeling better
[2022-09-08 17:07] LABS: Basophils Percent Auto 0.3 % (0.2-1.2); Eosinophils Percent Auto 0.1 % (0-4.4); Hematocrit 31.6 % (37.0-47.0); Hemoglobin 9.4 g/dL (12.0-15.0); Immature Granulocyte Absolute 0.07 K/mm3 (0.00-0.031); Immature Granulocyte Percent A 0.5 % (0-0.5); Lymphocytes Absolute Auto 0.56 K/mm3 (0.9-3.2); Lymphocytes Percent Auto 4.1 % (18.3-44.2); Mean Corpuscular HGB Conc 29.7 g/dl (32-36); Mean Corpuscular Hemoglobin 23.8 pg (26-34); Mean Platelet Volume 8.9 fl (7.4-10.4); Monocytes Absolute Auto 0.2 K/mm3 (0.1-0.6); Monocytes Percent Auto 1.2 % (2.6-8.5); Neutrophils Absolute Auto 12.9 K/mm3 (1.3-6.7); Neutrophils Percent Auto 93.8 % (45.5-73.1); Platelet Count Result 517 k/mm3 (150-375); Red Blood Count 3.95 M/mm3 (4.2-5.4); Red Cell Distribution Width 15.2 % (11.5-14.5); White Blood Count 13.7 K/mm3 (4.5-10.0)
[2022-09-08 17:17] LABS: Anion Gap 9 mmol/L (8-16); Blood Urea Nitrogen 11 mg/dL (7-17); Calcium 8.3 mg/dL (8.4-10.2); Carbon Dioxide 24 mmol/L (22-30); Chloride 105 mmol/L (98-107); Estimated CRCL calculation 131 ml/min; Estimated Glomerular Filt Rate > 60; Glucose 147 mg/dL (65-110); Potassium 3.6 mmol/L (3.4-5.0); Sodium 138 mmol/L (137-145)
[2022-09-08 17:30] LABS: Anisocytosis 1+ (NORMAL); Hypochromasia 1+ (NORMAL); Ovalocytes 1+ (NORMAL); Platelet Estimate Increased (Adequate); Schistocytes None Seen (NORMAL)
== END 2022-09-08 20:05 | disposition home or self-care (01) ==
PROVIDERS: Emergency Provider Emergency Medicine; PCP Family Medicine
DX: T78.2XXA Anaphylactic shock, unspecified, initial encounter (principal); J45.909 Unspecified asthma, uncomplicated; Q79.60 Ehlers-Danlos syndrome, unspecified; K58.1 Irritable bowel syndrome with constipation
CPT/HCPCS: 36415; 80048; 83520; 85025; 96361; 96372; 96374; 96375; 99284; J0171; J1200; J2930; J7030

== ENCOUNTER → 2022-09-21 15:28 | Outpatient (CLI) | payer OTHER, SELFPAY ==
--- NOTE | ~2022-09-21 | XR_ITS ---
EXAMINATION: XR chest 2V Exam Date/Time: 09/21/2022 16:00 CDT HISTORY: R05.9 - Cough, unspecified Comparison: 11/29/2021. RESULT: Lines, tubes, and devices: None. Lungs and pleura: Clear. Cardiomediastinal silhouette: Stable. Other: No acute osseous or upper abdominal finding. IMPRESSION: No acute cardiopulmonary process. Reviewed, dictated and finalized at location K.
== END ==
PROVIDERS: PCP Family Medicine; Visit Provider Physician Assistant Medical
DX: R05.9 Cough, unspecified (principal)
CPT/HCPCS: 71046

== ENCOUNTER 2022-10-05 12:35 | Inpatient (IN) | payer OTHER, SELFPAY ==
[2022-10-05] VITALS (59 sets, daily range): BP systolic 127–151; BP diastolic 74–100; PULSE 120–145; RESP 12–31; TEMP 36.8–36.9; O2SAT 96–100; BMI 30.7
--- NOTE | ~2022-10-05 | XR_ITS ---
EXAM: XR mandible min 4V DATE: 10/05/2022 18:00 HISTORY: 2ND ATTEMPT POST REDUCTION . COMPARISON: Same date at 5:05 PM and 10/03/2021. FINDINGS/IMPRESSION: Examination remains somewhat limited, but with slightly improved visualization nandini rodas adjusted technical settings. Subluxation of the right mandibular condyle. Reviewed, dictated and finalized at location K.
--- NOTE | ~2022-10-05 | XR_ITS ---
EXAMINATION: XR chest 1V portable INDICATION: Shortness of breath TECHNIQUE: Portable AP chest at 1340 hours COMPARISON: 09/21/2022 FINDINGS: The lungs are free of acute opacities. No pleural effusion or pneumothorax. The cardiomedia stinal silhouette is normal. IMPRESSION: 1. No acute cardiopulmonary abnormality. Reviewed, dictated and finalized at location B.
--- NOTE | ~2022-10-05 | XR_ITS ---
EXAMINATION: XR mandible min 4V INDICATION: Jaw dislocation TECHNIQUE: Three views of the mandible were obtained on four radiographs. COMPARISON: 10/05/2022 FINDINGS: There is anterior subluxation of the left mandibular condyle relative to the temporomandibu lar fossa. The axis of the mandible is tilted and the coronal plane. No fracture is identified. The v isualized paranasal sinuses appear to be well-aerated. IMPRESSION: 1. Anterior subluxation of the left mandibular condyle relative to the temporomandibular fossa. Reviewed, dictated and finalized at location L. IMPRESSION: 1. Anterior subluxation of the left mandibular condyle relative to the temporom andibular fossa.
--- NOTE | ~2022-10-05 | XR_ITS ---
EXAM: XR mandible min 4V DATE: 10/05/2022 17:18 HISTORY: dislocation WHILE UNDER E.R. CARE PT HAS SPONTANEOUS EVENT . COMPARISON: None available. FINDINGS: Exam limited by portable technique resulting in poor penetration and obliquity in several v iews. Normal mineralization. No fracture or dislocation. Partial opacification of the left maxillary sinus. Mandibular condyles appear to be well seated although they are partially obscured by summation artifact. IMPRESSION: Limited examination, with apparent mandibular reduction. Correlate with clinical findings . If there is clinical concern for persistent reduction, recommend repeat nonportable imaging. Reviewed, dictated and finalized at location K. IMPRESSION: Limited examination, with apparent mandibular reduction. Correlate with clinical findings. If there is clinical concern for persistent reduction, recommend repeat nonportable imaging.
--- NOTE | 2022-10-05 12:42 | ECG_ITS ---
Measurements Intervals [place] Rate: 114 P: [place]: 0 QRS: 65 QRSD: 106 T: 53 QT: 322 QTc: 444 Interpretive Statements ATRIAL FIBRILLATION WITH RAPID VENTRICULAR RESPONSE INCOMPLETE RIGHT BUNDLE BRANCH BLOCK [90+ ms QRS DURATION, TERMINAL R IN V1/V2, 40+ ms S IN I/aVL/V4/V5/V6] ABNORMAL ECG COMPARED TO ECG 05/24/2022 22:56:21 ATRIAL FIBRILLATION NOW PRESENT Electronically Signed On 10-05-2022 13:54:32 CDT by Nabil Mclain M.D.
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
[2022-10-05] MEDS: SODIUM CHLORIDE 0.9% IV 1,000 ML 999 ML IV CONT ×2 (13:46→15:23)
[2022-10-05] MEDS: methylPREDNISolone SOD SUCC 125 MG VIAL IV PUSH (13:49)
[2022-10-05] MEDS: EPINEPHrine HCL INJ 1 MG/ML AMPUL 0.3 MG IM ×2 (13:49→20:03)
[2022-10-05] MEDS: diphenhydrAMINE HCl INJ 50 MG/ML VIAL IV PUSH ×3 (13:54→23:43)
[2022-10-05] MEDS: FAMOTIDINE 20 MG/2 ML VIAL IV PUSH ×2 (13:54→21:58)
[2022-10-05] MEDS: diphenhydrAMINE HCl INJ 50 MG/ML VIAL 25 MG IV PUSH (15:23)
[2022-10-05] MEDS: diazePAM INJ (*CRX) 10 MG/2 ML SYRINGE 5 MG IV PUSH (15:30)
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
[2022-10-05] MEDS: PROPOFOL IV EMULSION 200 MG/20 ML VIAL 100 MG IV PUSH (17:22)
--- NOTE | 2022-10-05 17:22 | PC.NURSE ---
Addendum entered by Urvashi Brothers RN 10/05/22 17:26: 1722 Mod sedation IVP propofol 60mg push by Dr. Little. 1726 DR. Little done with reduction at this time. Original Note: 1721 Mod sedation IVP propofol 60mg push by Dr. Little.
[2022-10-05 18:40] LABS: Basophils Absolute Auto 0.1 K/mm3 (0.0-0.1); Basophils Percent Auto 0.4 % (0.2-1.2); Hematocrit 31.8 % (37.0-47.0); Hemoglobin 9.2 g/dL (12.0-15.0); Immature Granulocyte Absolute 0.05 K/mm3 (0.00-0.031); Immature Granulocyte Percent A 0.4 % (0-0.5); Lymphocytes Absolute Auto 0.33 K/mm3 (0.9-3.2); Lymphocytes Percent Auto 2.7 % (18.3-44.2); Mean Corpuscular HGB Conc 28.9 g/dl (32-36); Mean Corpuscular Hemoglobin 22.6 pg (26-34); Mean Corpuscular Volume 78.1 fl (80-100); Mean Platelet Volume 8.4 fl (7.4-10.4); Monocytes Absolute Auto 0.1 K/mm3 (0.1-0.6); Monocytes Percent Auto 0.5 % (2.6-8.5); Neutrophils Absolute Auto 11.8 K/mm3 (1.3-6.7); Platelet Count Result 505 k/mm3 (150-375); Red Blood Count 4.07 M/mm3 (4.2-5.4); Red Cell Distribution Width 16.3 % (11.5-14.5); White Blood Count 12.3 K/mm3 (4.5-10.0)
[2022-10-05 18:51] LABS: Alanine Aminotransferase 29 U/L (6-35); Albumin Level 4.8 g/dL (3.5-5.1); Alkaline Phosphatase 105 U/L (38-126); Anion Gap 11 mmol/L (8-16); Aspartate Amino Transferase 24 U/L (14-36); Bilirubin,Total 0.3 mg/dL (0.2-1.3); Blood Urea Nitrogen 10 mg/dL (7-17); Calcium 9.1 mg/dL (8.4-10.2); Carbon Dioxide 22 mmol/L (22-30); Chloride 108 mmol/L (98-107); Estimated CRCL calculation 113 ml/min; Estimated Glomerular Filt Rate > 60; Glucose 115 mg/dL (65-110); Magnesium 2.1 mg/dL (1.6-2.3); Potassium 3.9 mmol/L (3.4-5.0); Sodium 141 mmol/L (137-145)
[2022-10-05 19:20] LABS: Hypochromasia 1+ (NORMAL); Platelet Estimate Increased (Adequate); Schistocytes None Seen (NORMAL)
[2022-10-05 19:21] LABS: Anisocytosis 2+ (NORMAL)
[2022-10-05] MEDS: LEVALBUTEROL NEB 1.25 MG/3 ML INHALATION (20:03)
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
--- NOTE | 2022-10-05 20:56 | ADMGEN ---
This patient, Rosangela Koenig, was admitted to IMU Room 201-01. Patient/family oriented to hospital policies and general routines including ID bracelet, bed and alarms, visiting hours, pain management, procedures, bathroom and other care routines, personal items, smoking policy, room service/diet, and visiting hours. Information on how to activate the Rapid Response Team has been discussed. Patient/Family are encouraged to report perceived risks to care and to ask questions if they do not understand what they are told or what they should do.
[2022-10-05] MEDS: SODIUM CHLORIDE 0.9% IV 1,000 ML 125 ML IV CONT (21:03)
--- NOTE | 2022-10-05 22:01 | PC.NURSE ---
During pt assessment, pt's jaw spontaneously dislocated. Dr. Calderon notified, who informed ED physician. ED physician to evaluate pt.
[2022-10-05] MEDS: PROPOFOL IV EMULSION 200 MG/20 ML VIAL 50 MG IV PUSH ×3 (22:30→22:35)
--- NOTE | 2022-10-05 22:41 | PM.IMHP ---
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 Irritable bowel syndrome with constipation Mononucleosis (05/2019) Postural orthostatic tachycardia syndrome Scapular dyskinesis Surgical History Surgical History History of arthroscopy of right knee History of endoscopy History of tonsillectomy Tarsal tunnel syndrome, left lower limb [place] teeth extracted Family History Family History Other Adopted Social History Social History Social History: Surrogate decision maker: Armand Koenig, . Code status: Full code. Smoking status: Never smoker Second hand tobacco smoke exposure: No Alcohol intake: current Drinks per week: 1 Alcohol use details: VERY RARE Substance use: never Substance use type: does not use Lack of Transportation: No Lack of Food: Never True Current Housing: Decline to Answer Concerned About Future Housing: Decline to Answer Difficulty Paying Gas/Electric Bills: Decline to Answer Difficulty Paying for Meds: Decline to Answer Currently Unemployed: Decline to Answer Education: Decline to Answer Difficulty w/ Childcare or Family Care: Decline to Answer Living arrangements: with family Additional living arrangements comments: Lives in [place] with her . No children. She is adopted. 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 Gender identity (if verbalized by the patient): Female Sexual Orientation (if Verbalized by the Patient): Straight or Heterosexual Spiritual care concerns: No Meds Home Medications and Allergies Home Medications Medication Instructions Recorded Confirmed Type cetirizine 10 mg tablet (Zyrtec) 20 mg PO BID 02/27/20 10/05/22 History fluticasone propionate 50 1 spray intranasal DAILY 05/18/20 10/05/22 History mcg/actuation nasal spray,suspension (Flonase Allergy Relief) famotidine 40 mg tablet 40 mg PO BID 10/28/21 10/05/22 History montelukast 10 mg tablet 10 mg PO HS 10/28/21 10/05/22 History (Singulair) omalizumab 150 mg subcutaneous 75 mg subcut MONTHLY 12/06/21 10/05/22 History solution (Xolair) diphenhydramine HCl 50 mg capsule 50 mg PO BID PRN Itching 12/15/21 10/05/22 History epinephrine 0.3 mg/0.3 mL 0.3 mg IM ONCE ALLERGIC REACTIONS 12/15/21 10/05/22 History injection, auto-injector (EpiPen 2-Giacomo) mirtazapine 15 mg tablet 15 mg PO QHS #30 tabs 06/30/22 10/05/22 Rx calcium citrate 1,000 mg tablet 1,800 mg PO DAILY 07/13/22 10/05/22 History buspirone 10 mg tablet 10 mg PO BID #60 tabs 08/23/22 10/05/22 Rx cyclobenzaprine 5 mg tablet 5 mg PO TID PRN muscle spasm #90 08/23/22 10/05/22 Rx tabs tramadol 50 mg tablet 50 mg PO Q6H PRN pain #90 tabs 09/20/22 10/05/22 Rx diazepam 5 mg tablet 5 mg PO TID PRN anxiety #90 tabs 09/26/22 10/05/22 Rx metoclopramide HCl 10 mg tablet 10 mg PO Q6H PRN nausea and 09/27/22 10/05/22 Rx vomiting #60 tabs fluticasone propionate 115 2 puff inhalation BID PRN 10/05/22 10/05/22 History mcg-salmeterol 21 mcg/actuation Shortness Of Breath Or Wheezing HFA inhaler (Advair HFA) trazodone 50 mg tablet 50 mg PO QHS PRN Sleep 10/05/22 10/05/22 History triamcinolone acetonide 0.1 % 1 applic dental HS 10/05/22 10/05/22 History dental paste Allergies Allergy/AdvReac Type Severity Reaction Status Date / Time peanut Allergy Severe Anaphylaxis, Verified 10/05/22 12:43 HIVES tree nut Allergy Severe Anaphylaxis Verified 10/05/22 12:43 hydromorphone Allergy Intermediate Hives / Verified 10/05/22 12:43 Red Face clarithromycin Al
[2022-10-05] MEDS: MORPHINE SULFATE (*CRX) 4 MG/ML INJ IV PUSH (23:00)
--- NOTE | 2022-10-05 23:18 | PC.NURSE ---
Patient states that her jaw is out of place again after being reset at 2330. Dr. Calderon notified, Dr. Calderon to evaluate.
--- NOTE | 2022-10-05 23:20 | PC.NURSE ---
This patient, Rosangela Koenig, was transferred to [ICU 4 ] on 10/05/22 at 2320. Personal belongings sent with patient. Report given to [ANDRÉS Enrique ]. Appropriate documentation sent with patient. Pt's spouse made aware of transfer.
--- NOTE | 2022-10-05 23:30 | ED.PROCEDURE ---
Procedures Jaw Reduction Time out performed: Yes Pre-treatment medications used: other (propofol) Technique used: downward anterior traction Reduction successful: Yes Patient tolerated procedure: well Complications: none
[2022-10-05] MEDS: methylPREDNISolone SOD SUCC 125 MG VIAL 60 MG IV PUSH (23:43)
[2022-10-06] VITALS (18 sets, daily range): BP systolic 111–142; BP diastolic 69–104; PULSE 105–141; RESP 12–24; TEMP 36.2–36.6; O2SAT 94–100
[2022-10-06] MEDS: HALOPERIDOL LACTATE 5 MG/ML VIAL IM (00:31)
[2022-10-06] MEDS: LORazepam INJ (*CRX) 2 MG/ML VIAL 1 MG IV PUSH ×2 (00:31→23:01)
--- NOTE | 2022-10-06 01:13 | PC.NURSE ---
Xray report read to Dr. Calderon. Continue to medical manage at this point.
[2022-10-06] MEDS: MORPHINE SULFATE (*CRX) 4 MG/ML INJ IV PUSH (01:44)
[2022-10-06] MEDS: diphenhydrAMINE HCl INJ 50 MG/ML VIAL IV PUSH (05:34)
[2022-10-06] MEDS: methylPREDNISolone SOD SUCC 125 MG VIAL 60 MG IV PUSH ×3 (05:34→17:55)
[2022-10-06] MEDS: SODIUM CHLORIDE 0.9% IV 1,000 ML 125 ML IV CONT ×2 (05:36→18:00)
[2022-10-06] MEDS: MORPHINE SULFATE (*CRX) 2 MG/ML INJ 1 MG IV PUSH ×2 (05:52→07:34)
[2022-10-06] MEDS: diazePAM INJ (*CRX) 10 MG/2 ML SYRINGE 5 MG IV PUSH (06:52)
--- NOTE | 2022-10-06 07:10 | PC.NURSE ---
Around 0230 patient remarked that her jaw was feeling better slowly, and subsequently commented that she felt her jaw click into place. Her facial redness and swelling noticeably decreased in the following hours. Morning 0600 med pass and rounds were completed and shortly after 0600 patient used her call light and alerted staff to having another event. MD notified and orders received. Agricultural Extension Officer updated with new information as well.
[2022-10-06] MEDS: FAMOTIDINE 20 MG/2 ML VIAL IV PUSH (08:03)
[2022-10-06] MEDS: diphenhydrAMINE HCl INJ 50 MG/ML VIAL 25 MG IV PUSH ×3 (08:03→15:18)
--- NOTE | 2022-10-06 08:29 | PC.NURSE ---
This patient, Rosangela Koenig, was transferred to [facility] on 10/06/22 at 0829. Personal belongings sent with patient. Report given to Nat. Appropriate documentation sent with patient.
--- NOTE | 2022-10-06 09:44 | PM.IMPN ---
Progress Note: A&P Assessment and Plan (1) Dislocated jaw: Code(s): S03.00XA - Dislocation of jaw, unspecified side, initial encounter Status: Acute Assessment and Plan: Status post mandible reduction with sedation x2 Underlying Ehler Danlos syndrome patient had a 3rd episode after reduction with Jerome wrap brace I suggested we have to transfer her out to outside facility she became obviously distraught and stated that it would happen a 4th time and chill rather manage downgoing somewhere else Continued to dislocate spontaneously . 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 Patient dislocated the jaw again. left-sided. Recurrent dislocation in the past as well. No fever chills. Review of Systems Review of Systems: All systems reviewed & are unremarkable except as noted in HPI and below Exam Narrative: GENERAL: Mild distress, appears uncomfortable HEAD: Normocephalic, atraumatic. EYES: PERRLA and EOMI. ENT: Nares clear, no rhinorrhea or epistaxis.?Mucous membranes dry, no tongue or lip swelling, no posterior pharyngeal swelling NECK: Supple. CHEST: Scattered wheezing bilaterally, adequate air movement HEART: Tachycardic, regular rhythm ABDOMEN: Soft, nontender, nondistended EXTREMITIES: Normal range of motion.? No edema. SKIN: Warm, dry, no rash. NEURO: No focal deficits.? Alert and oriented x3. PSYCH: Normal mood and affect. Objective Data Vital Signs Vital Signs: Vital Signs - 24 hr 10/05/22 12:39 10/05/22 12:42 10/05/22 12:45 Temperature 98.4 F Pulse Rate 135 H Pulse Rate [Monitor] Respiratory Rate 16 Blood Pressure 141/89 H Blood Pressure [Left Arm] Pulse Oximetry 99 100 100 Oxygen Delivery Room Air Oxygen Flow Rate Fraction of Inspired Oxygen 10/05/22 12:46 10/05/22 13:04 10/05/22 13:15 Temperature Pulse Rate 127 H 128 H Pulse Rate [Monitor] Respiratory Rate 23 H 22 H Blood Pressure 141/88 H Blood Pressure [Left Arm] Pulse Oximetry 99 Oxygen Delivery Oxygen Flow Rate Fraction of Inspired Oxygen 10/05/22 13:30 10/05/22 13:45 10/05/22 13:57 Temperature Pulse Rate 133 H 128 H 127 H Pulse Rate [Monitor] Respiratory Rate 18 20 13 Blood Pressure 144/91 H Blood Pressure [Left Arm] Pulse Oximetry 100 Oxygen Delivery Oxygen Flow Rate Fraction of Inspired Oxygen 10/05/22 13:59 10/05/22 14:00 10/05/22 14:44 Temperature Pulse Rate 123 H 129 H 145 H Pulse Rate [Monitor] Respiratory Rate 16 16 19 Blood Pressure Blood Pressure [Left Arm] Pulse Oximetry 100 100 Oxygen Delivery Oxygen Flow Rate Fraction of Inspired Oxygen 10/05/22 14:45 10/05/22 15:04 10/05/22 15:15 Temperature Pulse Rate 136 H 138 H 136 H Pulse Rate [Monitor] Respiratory Rate 20 18 18 Blood Pressure Blood Pressure [Left Arm] Pulse Oximetry 100 100 Oxygen Delivery Oxygen Flow Rate Fraction of Inspired Oxygen 10/05/22 15:37 10/05/22 15:45 10/05/22 16:13 Temperature Pulse Rate 133 H 133 H 140 H Pulse Rate [Monitor] Respiratory Rate 14 21 H 16 Blood Pre
[2022-10-06] MEDS: MORPHINE SULFATE (*CRX) 2 MG/ML INJ IV PUSH ×3 (09:56→23:02)
[2022-10-06] MEDS: diazePAM INJ (*CRX) 10 MG/2 ML SYRINGE 2.5 MG IV PUSH (11:45)
--- NOTE | 2022-10-06 13:30 | ED.GENADULT ---
HPI - General Adult General Chief complaint: Allergic Reaction Stated complaint: an allergic reaction Time Seen by Provider: 10/05/22 12:37 Source: patient, RN notes reviewed and old records reviewed Mode of arrival: ambulatory Limitations: no limitations History of Present Illness HPI narrative: Patient is currently admitted bed 211 and I was called upstairs to help with a mandible subluxation. Dr. Andre asked me to evaluate the patient. Patient was treated with 2 mg of IV Versed and had masseter muscle massage resulting in reduction of her subluxation. Patient did feel improved and patient was able to open and close her jaw as normal.. Related Data Home Medications Medication Instructions Recorded Confirmed cetirizine 10 mg tablet (Zyrtec) 20 mg PO BID 02/27/20 10/05/22 fluticasone propionate 50 1 spray intranasal DAILY 05/18/20 10/05/22 mcg/actuation nasal spray,suspension (Flonase Allergy Relief) famotidine 40 mg tablet 40 mg PO BID 10/28/21 10/05/22 montelukast 10 mg tablet 10 mg PO HS 10/28/21 10/05/22 (Singulair) omalizumab 150 mg subcutaneous 75 mg subcut MONTHLY 12/06/21 10/05/22 solution (Xolair) diphenhydramine HCl 50 mg capsule 50 mg PO BID PRN Itching 12/15/21 10/05/22 epinephrine 0.3 mg/0.3 mL 0.3 mg IM ONCE ALLERGIC REACTIONS 12/15/21 10/05/22 injection, auto-injector (EpiPen 2-Giacomo) calcium citrate 1,000 mg tablet 1,800 mg PO DAILY 07/13/22 10/05/22 fluticasone propionate 115 2 puff inhalation BID PRN 10/05/22 10/05/22 mcg-salmeterol 21 mcg/actuation Shortness Of Breath Or Wheezing HFA inhaler (Advair HFA) trazodone 50 mg tablet 50 mg PO QHS PRN Sleep 10/05/22 10/05/22 triamcinolone acetonide 0.1 % 1 applic dental HS 10/05/22 10/05/22 dental paste Allergies Allergy/AdvReac Type Severity Reaction Status Date / Time peanut Allergy Severe Anaphylaxis, Verified 10/05/22 12:43 HIVES tree nut Allergy Severe Anaphylaxis Verified 10/05/22 12:43 hydromorphone Allergy Intermediate Hives / Verified 10/05/22 12:43 Red Face clarithromycin Allergy Mild N/V Verified 10/05/22 12:43 hydrocodone Allergy Mild Itching Verified 10/05/22 12:43 meperidine Allergy Mild Nausea and Verified 10/05/22 12:43 Vomiting azithromycin Allergy Unknown N/V, Verified 10/05/22 12:43 DIARRHEA, ABD CRAMPING. 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 Irritable bowel syndrome with constipation Mononucleosis (05/2019) Postural orthostatic tachycardia syndrome Scapular dyskinesis Surgical History Surgical History History of arthroscopy of right knee History of endoscopy History of tonsillectomy Tarsal tunnel syndrome, left lower limb [place] teeth extracted Family History Family History Other Adopted Social History Social History Social History: Surrogate decision maker: Armand Koenig, . Code status: Full code. Smoking status: Never smoker Second hand tobacco smoke exposure: No Alcohol intake: current Drinks per week: 1 Alcohol use details: VERY RARE Substance use: never Substance use type: does not use Lack of Transportation: No Lack of Food: Never True Current
[2022-10-06] MEDS: IPRATROPIUM BR 0.02% INH SOLN 0.5 MG/2.5 ML VIAL INHALATION (15:16)
--- NOTE | 2022-10-06 15:16 | PCCCNOTE ---
On 10/06/22, the student, [Kira Collier], provided care and completed [facility] documentation on this patient. I have reviewed the student's documentation and agree with the findings.
[2022-10-06] MEDS: MIDAZOLAM HCL (*CRX) 2 MG/2 ML VIAL IV PUSH (15:17)
[2022-10-06] MEDS: CYCLOBENZAPRINE HCL 5 MG TABLET PO ×2 (15:18→23:08)
[2022-10-06 18:04] LABS: Amphetamine Screen Urine Negative (Negative); Barbiturate Screen Urine Negative (Negative); Benzodiazepines Screen Urine Positive (Negative); Cannabinoid Screen Urine Negative (Negative); Cocaine Screen Urine Negative (Negative); Methadone Screen Urine Negative (Negative); Opiate Screen Urine Positive (Negative); Phencyclidine Screen Urine Negative (Negative)
--- NOTE | 2022-10-06 18:16 | PC.NURSE ---
Patient jaw was released after ED doctor was bedside and gave 2 verced, patient had almost immediate improvement. Shortly after patient jaw locked again, a short time later the jaw released without any medical intervention. Patient enjoyed her lunch, grilled cheese, mashed potatoes. Patient ambulated to the bathroom without any distress. Patient was cheerful. returned to the bedside and a short time later patient called out stating her jaw locked again.
[2022-10-06] MEDS: MIRTAZAPINE 15 MG TABLET PO (23:10)
[2022-10-06] MEDS: MONTELUKAST SODIUM 10 MG TABLET PO (23:10)
[2022-10-07] VITALS (9 sets, daily range): BP systolic 118–144; BP diastolic 84–92; PULSE 94–133; RESP 18–20; TEMP 35.9–36.3; O2SAT 97–100
[2022-10-07] MEDS: MIDAZOLAM HCL (*CRX) 2 MG/2 ML VIAL 1 MG IV PUSH
[2022-10-07] MEDS: methylPREDNISolone SOD SUCC 125 MG VIAL 60 MG IV PUSH ×2 (00:05→05:33)
[2022-10-07 05:23] LABS: Basophils Percent Auto 0.1 % (0.2-1.2); Hematocrit 29.7 % (37.0-47.0); Hemoglobin 8.5 g/dL (12.0-15.0); Immature Granulocyte Absolute 0.05 K/mm3 (0.00-0.031); Immature Granulocyte Percent A 0.4 % (0-0.5); Lymphocytes Absolute Auto 0.78 K/mm3 (0.9-3.2); Lymphocytes Percent Auto 6.2 % (18.3-44.2); Mean Corpuscular HGB Conc 28.6 g/dl (32-36); Mean Corpuscular Hemoglobin 22.5 pg (26-34); Mean Corpuscular Volume 78.8 fl (80-100); Mean Platelet Volume 8.9 fl (7.4-10.4); Monocytes Absolute Auto 0.3 K/mm3 (0.1-0.6); Monocytes Percent Auto 2.5 % (2.6-8.5); Neutrophils Absolute Auto 11.4 K/mm3 (1.3-6.7); Neutrophils Percent Auto 90.8 % (45.5-73.1); Platelet Count Result 469 k/mm3 (150-375); Red Blood Count 3.77 M/mm3 (4.2-5.4); Red Cell Distribution Width 16.4 % (11.5-14.5); White Blood Count 12.6 K/mm3 (4.5-10.0)
[2022-10-07 05:33] LABS: Alanine Aminotransferase 22 U/L (6-35); Alkaline Phosphatase 73 U/L (38-126); Anion Gap 6 mmol/L (8-16); Aspartate Amino Transferase 25 U/L (14-36); Bilirubin,Total 0.3 mg/dL (0.2-1.3); Blood Urea Nitrogen 14 mg/dL (7-17); Calcium 8.6 mg/dL (8.4-10.2); Carbon Dioxide 26 mmol/L (22-30); Chloride 105 mmol/L (98-107); Estimated CRCL calculation 156 ml/min; Estimated Glomerular Filt Rate > 60; Glucose 121 mg/dL (65-110); Magnesium 2.3 mg/dL (1.6-2.3); Potassium 4.6 mmol/L (3.4-5.0); Sodium 137 mmol/L (137-145)
[2022-10-07] MEDS: SODIUM CHLORIDE 0.9% IV 1,000 ML 125 ML IV CONT (05:33)
[2022-10-07] MEDS: diphenhydrAMINE HCl INJ 50 MG/ML VIAL 25 MG IV PUSH ×2 (05:34)
[2022-10-07 05:45] LABS: Hypochromasia 1+ (NORMAL); Microcytosis 2+ (NORMAL)
[2022-10-07 05:46] LABS: Schistocytes None Seen (NORMAL)
[2022-10-07] MEDS: FAMOTIDINE 20 MG TABLET 40 MG PO (08:58)
[2022-10-07] MEDS: LORATADINE 10 MG TABLET 20 MG PO (08:59)
[2022-10-07] MEDS: diazePAM (*CRX) 5 MG TABLET PO (09:03)
[2022-10-07] MEDS: CYCLOBENZAPRINE HCL 5 MG TABLET PO (09:03)
--- NOTE | 2022-10-07 12:47 | PM.DS ---
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 Will resume her Flexeril and diazepam as she takes at home reduced by ER physician # Idiopathic anaphylaxis: Presented allergic reaction mild itching throat so swelling difficulty swallowing and rash of the face and the neck History of idiopathic urticaria patient give herself EpiPen shot Was started on Solu-Medrol with improvement in symptoms. 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 No signs of active bleeding Time Spent with Patient Time attestation: Total time spent providing and/or coordinating discharge services: 35 minutes Exam Narrative: GENERAL: no acute distress distress, appears comfortable HEAD: Normocephalic, atraumatic. EYES: PERRLA and EOMI. ENT: Nares clear, no rhinorrhea or epistaxis.?Mucous membranes dry, no tongue or lip swelling, no posterior pharyngeal swelling NECK: Supple. jaw brace in place CHEST: clear to auscultation bilaterally, adequate air movement HEART: Tachycardic, regular rhythm ABDOMEN: Soft, nontender, nondistended EXTREMITIES: Normal range of motion.? No edema. SKIN: Warm, dry, no rash. NEURO: No focal deficits.? Alert and oriented x3. PSYCH: Normal mood and affect. DS: Data Data Completed and Pending Labs on day of discharge: Labs from last 24 hours 10/07/22 10/07/22 10/06/22 04:58 04:58 17:30 WBC 12.6 H RBC 3.77 L Hgb 8.5 L Hct 29.7 L MCV 78.8 L MCH 22.5 L MCHC 28.6 L RDW 16.4 H Plt Count 469 H MPV 8.9 Immature Gran % (Auto) 0.4 Neut % (Auto) 90.8 H Lymph % (Auto) 6.2 L Kimball % (Auto) 2.5 L Eos % (Auto) 0.0 Baso % (Auto) 0.1 L Lymph # (Auto) 0.78 L [place] # (Auto) 0.3 Eos # (Auto) 0.0 Baso # (Auto) 0.0 Abs Immat Gran (auto) 0.05 H Absolute Neuts (auto) 11.4 H Absolute Nucleated RBC 0.0 Nucleated RBC % 0.0 Platelet Estimate Slightly increased Hypochromasia 1+ Microcytosis 2+ Schistocytes None seen Sodium 137 Potassium 4.6 Chloride 105 Carbon Dioxide 26 Anion Gap 6 L BUN 14 Creatinine 0.50 L Estim Creat Clear Calc 156 Estimated GFR > 60 Glucose 121 H Calcium 8.6 Magnesium 2.3 Total Bilirubin 0.3 AST 25 ALT 22 Alkaline Phosphatase 73 Total Protein 7.0 Albumin 4.0 Urine Opiates Screen Positive A Urine Methadone Screen Negative Ur Barbiturates Screen Negative Ur Phencyclidine Scrn Negative Ur Amphetamine Screen Negative U Benzodiazepines Scrn Positive A Urine Cocaine Screen Negative U Cannabinoids Screen Negative Imaging Radiologist's impression: ITS Impressions Chest X-Ray 10/05/22 13:57 IMPRESSION: 1. No acute cardiopulmonary abnormality. Mandible X-Ray 10/05/22 17:22 IMPRESSION: Limited examination, with apparent mandibular reduction. Correlate with clinical findings. If there is clinical concern for persistent reduction, recommend repea
--- NOTE | 2022-10-07 15:21 | PCCCNOTE ---
On 10/07/22, the student, [Kira Collier], provided care and completed [facility] documentation on this patient. I have reviewed the student's documentation and agree with the findings.
== END 2022-10-07 13:50 | disposition home or self-care (01) | DRG 158 ==
LOC: ANHED 14:12 → ANHIMU 19:47 → ANHICU 23:22 → ANHIMU 10-06 08:24
PROVIDERS: Admitting Provider Student in an Organized Health Care Education/Training Program; Emergency Provider General Practice; Visit Provider Internal Medicine
DX: S03.02XA Dislocation of jaw, left side, initial encounter (principal); Q79.60 Ehlers-Danlos syndrome, unspecified; T78.2XXA Anaphylactic shock, unspecified, initial encounter; L50.1 Idiopathic urticaria; J45.909 Unspecified asthma, uncomplicated; F41.9 Anxiety disorder, unspecified; G90.A Postural orthostatic tachycardia syndrome [POTS]
CPT/HCPCS: 21480; 36415; 70110; 71045; 80053; 80307; 83735; 85025; 93005; 94640; 96361; 96372; 96374; 96375; 96376; 99285; A9270; G0378; J0171; J1200; J1630; J2060; J2250; J2270; J2704; J2930; J3360; J7030

== ENCOUNTER 2022-10-09 18:18 | Emergency (ER) | payer OTHER, SELFPAY ==
[2022-10-09] VITALS (17 sets, daily range): BP systolic 114–168; BP diastolic 87–104; PULSE 105–148; RESP 11–20; TEMP 36.8; O2SAT 94–100
[2022-10-09] MEDS: methylPREDNISolone SOD SUCC 125 MG VIAL IV PUSH (18:53)
[2022-10-09] MEDS: FAMOTIDINE 20 MG/2 ML VIAL IV PUSH ×2 (18:53→20:10)
[2022-10-09] MEDS: diphenhydrAMINE HCl INJ 50 MG/ML VIAL IV PUSH ×4 (18:53→23:00)
--- NOTE | 2022-10-09 20:04 | ED.GENADULT ---
HPI - General Adult General Chief complaint: Allergic Reaction Stated complaint: Anaphylaxis Time Seen by Provider: 10/09/22 19:44 History of Present Illness HPI narrative: This is a 32-year-old female who is well known to our emergency department for idiopathic jaw dislocations and idiopathic anaphylactic reactions. today the patient is presenting for an allergic reaction. The and 545 she was sitting on sofa watching TV when she started to have flushing of her face chest and back. She felt like her lips were swelling in her tongue was swelling. Her boyfriend just noticed the facial swelling. At this point she gave herself an epinephrine injection and came to the emergency department. At this time her symptoms this improved and she has some mild flushing of her skin patient denies nausea vomiting diarrhea, wheezing, difficulty swallowing her own secretions. the patient receives monthly injections for her idiopathic anaphylaxis and is due to see her valet parking attendant next week. The goals of care today are symptom control the patient is requesting steroids Benadryl and Pepcid. The patient has frequent jaw dislocations. The patient's is concerned about how often the patient is requiring sedation to get her jaw reduced. He has been treating her jaw dislocation at home with THC gummies which is very effective. Related Data Home Medications Medication Instructions Recorded Confirmed cetirizine 10 mg tablet (Zyrtec) 20 mg PO BID 02/27/20 10/05/22 fluticasone propionate 50 1 spray intranasal DAILY 05/18/20 10/05/22 mcg/actuation nasal spray,suspension (Flonase Allergy Relief) famotidine 40 mg tablet 40 mg PO BID 10/28/21 10/05/22 montelukast 10 mg tablet 10 mg PO HS 10/28/21 10/05/22 (Singulair) omalizumab 150 mg subcutaneous 75 mg subcut MONTHLY 12/06/21 10/05/22 solution (Xolair) diphenhydramine HCl 50 mg capsule 50 mg PO BID PRN Itching 12/15/21 10/05/22 epinephrine 0.3 mg/0.3 mL 0.3 mg IM ONCE ALLERGIC REACTIONS 12/15/21 10/05/22 injection, auto-injector (EpiPen 2-Giacomo) calcium citrate 1,000 mg tablet 1,800 mg PO DAILY 07/13/22 10/05/22 fluticasone propionate 115 2 puff inhalation BID PRN 10/05/22 10/05/22 mcg-salmeterol 21 mcg/actuation Shortness Of Breath Or Wheezing HFA inhaler (Advair HFA) trazodone 50 mg tablet 50 mg PO QHS PRN Sleep 10/05/22 10/05/22 triamcinolone acetonide 0.1 % 1 applic dental HS 10/05/22 10/05/22 dental paste Allergies Allergy/AdvReac Type Severity Reaction Status Date / Time peanut Allergy Severe Anaphylaxis, Verified 10/05/22 12:43 HIVES tree nut Allergy Severe Anaphylaxis Verified 10/05/22 12:43 hydromorphone Allergy Intermediate Hives / Verified 10/05/22 12:43 Red Face clarithromycin Allergy Mild N/V Verified 10/05/22 12:43 hydrocodone Allergy Mild Itching Verified 10/05/22 12:43 meperidine Allergy Mild Nausea and Verified 10/05/22 12:43 Vomiting azithromycin Allergy Unknown N/V, Verified 10/05/22 12:43 DIARRHEA, ABD CRAMPING. 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 Irritable bowel syndrome with constipation Mononucleosis (05/2019) Postural orthostatic tachycardia syndrome Scapular dyskinesis Surgical History Surgical History History of arthroscopy of right knee History of endoscopy History of tonsillectomy Tarsal tunnel syndrome, left lower limb [place] teeth extrac
[2022-10-09] MEDS: LORazepam INJ (*CRX) 2 MG/ML VIAL IV PUSH (21:31)
[2022-10-09] MEDS: MIDAZOLAM HCL (*CRX) 2 MG/2 ML VIAL IV PUSH (22:59)
[2022-10-09] MEDS: EPINEPHrine HCL INJ 1 MG/ML AMPUL 0.3 MG IM (23:15)
== END 2022-10-09 23:57 | disposition home or self-care (01) ==
PROVIDERS: Emergency Provider Emergency Medicine; PCP Family Medicine
DX: T78.2XXA Anaphylactic shock, unspecified, initial encounter (principal); S03.00XA Dislocation of jaw, unspecified side, initial encounter; Z76.5 Malingerer [conscious simulation]; F41.9 Anxiety disorder, unspecified; J45.909 Unspecified asthma, uncomplicated; Q79.60 Ehlers-Danlos syndrome, unspecified; X58.XXXA Exposure to other specified factors, initial encounter
CPT/HCPCS: 96372; 96374; 96375; 96376; 99284; J0171; J1100; J1200; J2060; J2250; J2930

== ENCOUNTER 2022-10-12 10:28 | Emergency (ER) | payer OTHER, SELFPAY ==
[2022-10-12 10:29] VITALS: BP 152/96; PULSE 131; RESP 20; TEMP 36.8; O2SAT 100
--- NOTE | 2022-10-12 11:11 | PC.NURSE ---
Graciela, vascular access, called regarding IV/labs on patient. Patient is a known difficult stick. Graciela to come and attempt line and lab draw.
[2022-10-12] MEDS: diphenhydrAMINE HCl CAP 25 MG CAPSULE PO (11:14)
[2022-10-12 11:26] LABS: Basophils Percent Auto 0.2 % (0.2-1.2); Eosinophils Percent Auto 0.1 % (0-4.4); Hematocrit 36.5 % (37.0-47.0); Hemoglobin 10.6 g/dL (12.0-15.0); Immature Granulocyte Percent A 1.1 % (0-0.5); Lymphocytes Absolute Auto 1.97 K/mm3 (0.9-3.2); Lymphocytes Percent Auto 10.4 % (18.3-44.2); Mean Corpuscular Hemoglobin 22.6 pg (26-34); Mean Corpuscular Volume 77.8 fl (80-100); Mean Platelet Volume 8.9 fl (7.4-10.4); Monocytes Absolute Auto 1.3 K/mm3 (0.1-0.6); Monocytes Percent Auto 6.7 % (2.6-8.5); Neutrophils Absolute Auto 15.5 K/mm3 (1.3-6.7); Neutrophils Percent Auto 81.5 % (45.5-73.1); Platelet Count Result 744 k/mm3 (150-375); Red Blood Count 4.69 M/mm3 (4.2-5.4); Red Cell Distribution Width 16.7 % (11.5-14.5); White Blood Count 18.9 K/mm3 (4.5-10.0)
[2022-10-12 11:48] LABS: Schistocytes None Seen (NORMAL)
[2022-10-12 11:49] LABS: Anisocytosis 1+ (NORMAL); Hypochromasia 2+ (NORMAL); Ovalocytes 1+ (NORMAL); Platelet Estimate Increased (Adequate)
--- NOTE | 2022-10-12 12:14 | PC.NURSE ---
Phleb to redraw 3rd green top d/t first 2 specimens drawn by ED staff and Graciela Counts being hemolyzed.
[2022-10-12 13:01] VITALS: BP 139/95; PULSE 138; RESP 13; O2SAT 98
[2022-10-12 13:16] VITALS: BP 136/84; PULSE 137; RESP 47; O2SAT 100
[2022-10-12 13:58] LABS: Alanine Aminotransferase 36 U/L (6-35); Alkaline Phosphatase 94 U/L (38-126); Anion Gap 12 mmol/L (8-16); Aspartate Amino Transferase 24 U/L (14-36); Bilirubin,Total 0.3 mg/dL (0.2-1.3); Blood Urea Nitrogen 11 mg/dL (7-17); Calcium 9.5 mg/dL (8.4-10.2); Carbon Dioxide 28 mmol/L (22-30); Chloride 100 mmol/L (98-107); Estimated CRCL calculation 130 ml/min; Estimated Glomerular Filt Rate > 60; Glucose 110 mg/dL (65-110); Potassium 3.8 mmol/L (3.4-5.0); Sodium 140 mmol/L (137-145)
--- NOTE | 2022-10-12 14:06 | ED.GENADULT ---
HPI - General Adult General Chief complaint: Allergic Reaction Stated complaint: allergic reaction Time Seen by Provider: 10/12/22 10:29 History of Present Illness HPI narrative: Patient is a 32-year-old female who presents ER with concerns for allergic reaction. 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 It occurred while in the waiting room. Patient then received a Xolair injection. Patient was discharged yesterday from the hospital in [facility] due to her idiopathic anaphylaxis. Patient is well-known to this facility. She has been here recurrently over the last couple months with similar issues. She also has history of recurrent jaw dislocation that she treats at home with THC Gummies which was found in chart review. 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 Patient denies any new exposures to a possible trigger. Related Data Home Medications Medication Instructions Recorded Confirmed cetirizine 10 mg tablet (Zyrtec) 20 mg PO BID 02/27/20 10/05/22 fluticasone propionate 50 1 spray intranasal DAILY 05/18/20 10/05/22 mcg/actuation nasal spray,suspension (Flonase Allergy Relief) famotidine 40 mg tablet 40 mg PO BID 10/28/21 10/05/22 montelukast 10 mg tablet 10 mg PO HS 10/28/21 10/05/22 (Singulair) omalizumab 150 mg subcutaneous 75 mg subcut MONTHLY 12/06/21 10/05/22 solution (Xolair) diphenhydramine HCl 50 mg capsule 50 mg PO BID PRN Itching 12/15/21 10/05/22 epinephrine 0.3 mg/0.3 mL 0.3 mg IM ONCE ALLERGIC REACTIONS 12/15/21 10/05/22 injection, auto-injector (EpiPen 2-Giacomo) calcium citrate 1,000 mg tablet 1,800 mg PO DAILY 07/13/22 10/05/22 fluticasone propionate 115 2 puff inhalation BID PRN 10/05/22 10/05/22 mcg-salmeterol 21 mcg/actuation Shortness Of Breath Or Wheezing HFA inhaler (Advair HFA) trazodone 50 mg tablet 50 mg PO QHS PRN Sleep 10/05/22 10/05/22 triamcinolone acetonide 0.1 % 1 applic dental HS 10/05/22 10/05/22 dental paste Allergies Allergy/AdvReac Type Severity Reaction Status Date / Time peanut Allergy Severe Anaphylaxis, Verified 10/05/22 12:43 HIVES tree nut Allergy Severe Anaphylaxis Verified 10/05/22 12:43 hydromorphone Allergy Intermediate Hives / Verified 10/05/22 12:43 Red Face clarithromycin Allergy Mild N/V Verified 10/05/22 12:43 hydrocodone Allergy Mild Itching Verified 10/05/22 12:43 meperidine Allergy Mild Nausea and Verified 10/05/22 12:43 Vomiting azithromycin Allergy Unknown N/V, Verified 10/05/22 12:43 DIARRHEA, ABD CRAMPING. duloxetine Allergy Unknown BULGING Verified 10/05/22 12:43 EYES ondansetron Allergy Unknown PROLONGED Verified 10/05/22 12:43 QT ENERGY DRINKS Allergy Mild ORAL Uncoded 10/05/22 12:43 SWELLING WATERMELON-LEMON GRAY[place]ING SLURPY Allergy Mild ORAL Uncoded 10/05/22 12:43 SWELLING Review of Systems Review of Systems: All systems reviewed & are unremarkable except as noted in HPI and below Constitutional: Constitutional: Denies chills, Denies fatigue and Denies fever(s) ENT: Denies nasal congestion and Reports sore throat Cardiovascular: Cardiovascular: Denies chest pain, Reports rapid heart rate and Denies radiating jaw, neck or arm pain Respiratory: Respiratory: Denies cough and Reports dyspnea Gastrointestinal: Gastrointestinal: Denies abdominal pain, Denies nausea and Denies vomiting Allergic/Immunologic: Allergic/Immunologic: Denies lip swelling and Reports throat swelling (At [employer]er [employer] office) [facility] Past Medical History Medical History Anxiety Asthma Dislocation of toe of right foot 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 Irritable bowel syndrome with constipation Mononucleosis (05/2019)
--- NOTE | 2022-10-12 14:45 | PC.NURSE ---
Patient resting comfortably in stretcher. Patient in NAD.
[2022-10-12 15:09] VITALS: BP 136/90; PULSE 124; RESP 20; O2SAT 100
== END 2022-10-12 15:10 | disposition home or self-care (01) ==
PROVIDERS: Emergency Provider Emergency Medicine; PCP Family Medicine
DX: T78.2XXA Anaphylactic shock, unspecified, initial encounter (principal); J45.909 Unspecified asthma, uncomplicated; Q79.60 Ehlers-Danlos syndrome, unspecified; K58.1 Irritable bowel syndrome with constipation; G90.A Postural orthostatic tachycardia syndrome [POTS]; F41.9 Anxiety disorder, unspecified
CPT/HCPCS: 36415; 80053; 85025; 99283; A9270

== ENCOUNTER 2022-11-08 09:27 | Outpatient (CLI) | payer OTHER, SELFPAY ==
--- NOTE | ~2022-11-08 | XR_ITS ---
AP and oblique views of the bilateral ribs, and PA and lateral chest radiographs Clinical History: Pain Findings: No rib fracture is seen. Osseous alignment is anatomic. Lungs are clear, without focal cons olidation or pleural effusion. Cardiomediastinal contour is within normal limits. Soft tissues are un remarkable. Impression: No rib fracture is seen. Clear lungs. Reviewed, dictated and finalized at location . Impression: No rib fracture is seen. Clear lungs.
== END 2022-11-08 09:28 | disposition home or self-care (01) ==
PROVIDERS: PCP Family Medicine; Visit Provider Physician Assistant
DX: R07.81 Pleurodynia (principal)
CPT/HCPCS: 71046; 71110

== ENCOUNTER 2023-03-01 07:02 | Outpatient (CLI) | payer OTHER, SELFPAY ==
--- NOTE | 2023-03-01 07:58 | ECG_ITS ---
Measurements Intervals [place] Rate: 102 P: 51 TX: 161 QRS: 47 QRSD: 110 T: 48 QT: 359 QTc: 468 Interpretive Statements SINUS TACHYCARDIA POSSIBLE LEFT ATRIAL ENLARGEMENT [-0.1mV P WAVE IN V1/V2] INCOMPLETE RIGHT BUNDLE BRANCH BLOCK [90+ ms QRS DURATION, TERMINAL R IN V1/V2, 40+ ms S IN I/aVL/V4/V5/V6] NONSPECIFIC T-WAVE ABNORMALITY ABNORMAL ECG COMPARED TO ECG 10/05/2022 12:58:03 SINUS TACHYCARDIA NOW PRESENT Electronically Signed On 03-01-2023 9:19:16 CDT by Nabil Mclain M.D.
== END 2023-03-01 07:03 | disposition home or self-care (01) ==
LOC: ANHLAB 07:03 → ANHCARD 07:06
PROVIDERS: PCP Family Medicine; Visit Provider Family Medicine
DX: R00.0 Tachycardia, unspecified (principal); I45.10 Unspecified right bundle-branch block
CPT/HCPCS: 93005

== ENCOUNTER 2023-05-23 08:00 | Outpatient (RCR) | payer OTHER, SELFPAY ==
--- NOTE | 2023-04-25 11:13 | OPREHPOC ---
Outpatient Therapy Plan of Care This is a Multidisciplinary Plan of Care that may contain components documented by all disciplines (PT, OT, and ST.) PT Problem 1 PT Problem #1 Knowledge Deficit PT Goal 1 Goal [place] with progressive core and hip strengthening HEP Target Visit 2 PT Problem 2 PT Problem #2 Impaired Strength PT Goal 1 Goal Demonstrate lower abdominal strength of 4/5 to improve pelvic stability with LE coordination activity Target Visit 4 PT Goal 2 Goal Improve sd hip abduction strength to 4/5 to improve lateral stability with gait and functional activity Target Visit 4 PT Problem 3 PT Problem #3 Impaired Gait PT Goal 1 Goal Demonstrate even stride length bilaterally with absence of Trendelenburg Target Visit 4
--- NOTE | 2023-04-25 11:13 | PTOPEVAL1 ---
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 Woke up with pain and felt that her knee was going to buckle on her. She received an injection a couple weeks ago which has significantly helped. She was for quite a while feeling unstady on her feet. Reported Pain Level Pain Score 0: Self Report Assessment PT Clinical Summary Patient presents with hip weakness and hypermobility contributing to patellar instability and irregular foot loading. 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 Plan of Care Interventions Manual Therapy,Neuro Re-education,Patient/ Caregiver Education,Therapeutic Activities, Therapeutic Exercise PT Services Indicated Yes Treatment Frequency and 1x/week for 4 weeks Duration These treatments will address the objective and functional deficits as defined above. The patient will be advanced safely and appropriately in order for the patient to progress towards his/her prior level of function. Additional exercises will be introduced and as well as a comprehensive home exercise program upon discharge, if needed, ?to ensure carryover of functional gains achieved in the clinic. This treatment plan has been reviewed and agreement upon by the patient.
--- NOTE | 2023-05-23 08:59 | PTOPDC ---
Assessment and note entered by Klaus Pollack, PT Discharge Information Assessment Status Discharge Diagnosis Patellofemoral syndrome, Ehler's Danlo Syndrome Onset 2009 Subjective Information Reports that overall she feels she is doing well. No concerns with current HEP. Feels she is able to work muscles to fatigue without pain. Feels prepared for discharge to HEP. Reported Pain Level Pain Score 0: Self Report Assessment PT Clinical Summary Patient has met all goals for therapy at this time . No concerns for independence and transition to home program. Demonstrates compliance and understanding to prevent compensations. Plan of Care PT Services Indicated No
--- NOTE | 2023-05-23 09:01 | OPREHPOC ---
Outpatient Therapy Plan of Care This is a Multidisciplinary Plan of Care that may contain components documented by all disciplines (PT, OT, and ST.) PT Problem 1 PT Problem #1 Knowledge Deficit PT Goal 1 Goal [place] with progressive core and hip strengthening HEP Target Visit 2 Progress Met PT Problem 2 PT Problem #2 Impaired Strength PT Goal 1 Goal Demonstrate lower abdominal strength of 4/5 to improve pelvic stability with LE coordination activity Target Visit 4 Progress Met PT Goal 2 Goal Improve sd hip abduction strength to 4/5 to improve lateral stability with gait and functional activity Target Visit 4 Progress Met PT Problem 3 PT Problem #3 Impaired Gait PT Goal 1 Goal Demonstrate even stride length bilaterally with absence of Trendelenburg Target Visit 4 Progress Met
== END 2023-05-23 09:20 | disposition home or self-care (01) ==
LOC: ANHGOSHPT 08:00
PROVIDERS: PCP Family Medicine
DX: M25.562 Pain in left knee (principal); M25.362 Other instability, left knee
CPT/HCPCS: 97110; 97112; 97161

== ENCOUNTER 2023-06-02 03:25 | Day surgery (SDC) | payer OTHER, SELFPAY ==
[2023-05-30 10:13] VITALS: BMI 30.4
--- NOTE | 2023-05-31 09:51 | SUR.PREOP ---
Patient called regarding upcoming procedure. Reviewed preop instructions, appointment times, and procedure prep.
--- NOTE | 2023-06-01 14:11 | PM.HPGS ---
History of Present Illness History of Present Illness Consent: Risks, benefits, and alternatives have been discussed and questions answered. Patient agrees to proceed with procedure. Chief complaint: nausea with vomiting unspecified, early satiety Narrative: Rosangela Koenig is a 33 year old female who suffers from EDS, mast cell activation, PCOS and asthma. Now she is troubled with nausea and vomiting since October of this year. This usually comes on 15-30 minutes after meal and is not accompanied by pain but does cause esophageal ?burning?. Pepcid, 40 mg twice a day has helped somewhat she also had taking Reglan but is down to 1 tablet a day now. She gets relief with Reglan. 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 Irritable bowel syndrome with constipation Mast cell activation syndrome Mononucleosis (05/2019) Nausea and vomiting Postural orthostatic tachycardia syndrome Scapular dyskinesis Surgical History Surgical History History of arthroscopy of right knee History of endoscopy History of tonsillectomy Tarsal tunnel syndrome, left lower limb [place] teeth extracted Family History Family History Other Adopted Social History Social History Social History: Surrogate decision maker: Armand Koenig, . Code status: Full code. Smoking status: Never smoker Second hand tobacco smoke exposure: No Alcohol intake: never Drinks per week: 1 Alcohol use details: VERY RARE Substance use: never Substance use type: does not use Lack of Transportation: No Lack of Food: Never True Current Housing: I Have Housing Concerned About Future Housing: No Difficulty Paying Gas/Electric Bills: No Difficulty Paying for Meds: No Currently Unemployed: No Education: High School Diploma/GED Difficulty w/ Childcare or Family Care: No Living arrangements: with family Additional living arrangements comments: Lives in [place] with her . No children. She is adopted. 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 Gender identity (if verbalized by the patient): Female Sexual Orientation (if Verbalized by the Patient): Straight or Heterosexual Spiritual care concerns: No Meds Home Medications and Allergies Home Medications Medication Instructions Recorded Confirmed Type calcium citrate 1,000 mg tablet 1,800 mg PO DAILY 07/13/22 05/30/23 History cyclobenzaprine 10 mg tablet 10 mg PO TID PRN muscle spasm #30 01/29/23 05/30/23 Rx tabs metoclopramide HCl 10 mg tablet 10 mg PO Q6H PRN nausea and 04/12/23 05/30/23 Rx vomiting #60 tabs trazodone 50 mg tablet 50 mg PO QHS PRN Sleep #90 tabs 04/20/23 05/30/23 Rx celecoxib 100 mg capsule (Celebrex) 100 mg PO BID #60 caps 05/18/23 05/30/23 Rx lorazepam 0.5 mg tablet 0.5 mg PO BID PRN anxiety #60 tabs 05/18/23 05/30/23 Rx plecanatide 3 mg tablet (Trulance) 3 mg PO DAILY #90 tabs 05/29/23 05/30/23 Rx epinephrine 0.3 mg/0.3 mL 0.3 mg IM ONCE PRN Allergic 05/30/23 05/30/23 History injection, auto-injector Reaction famotidine 40 mg tablet 40 mg PO DAILY 05/30/23 05/30/23 History triamcinolone acetonide 0.1 % See Rx Instructions .Route 06/01/23 Rx dental paste .COMPLEX #5 grams Allergies Allergy/AdvRea
[2023-06-02 11:30] VITALS: BP 136/91; PULSE 131; RESP 20; TEMP 35.9; O2SAT 100; BMI 30.4
[2023-06-02] MEDS: LACTATED RINGERS 1,000 ML 150 ML IV CONT (11:54)
--- NOTE | 2023-06-02 11:57 | WPDANESEPPF ---
Anes - Initial Pre Proc Eval Procedure: Operation Date: 06/02/23 12:30 Proposed Procedures p Esophagogastroduodenoscopy - Martin España MD Date/Time: 06/02/23 11:57 Surgeon: Martin España MD Pre Op Diagnosis: nausea with vomiting unspecified, early satiety Patient Data Age: 33 Gender: F Height: 1.7 m Weight: 88 kg Last Vital Signs Temp 96.7 F L 06/02/23 11:30 Pulse 131 H 06/02/23 11:30 Resp 20 06/02/23 11:30 BP 136/91 H 06/02/23 11:30 Pulse Ox 100 06/02/23 11:30 O2 Del Method Room Air 06/02/23 11:30 Allergies Allergy/AdvReac Type Severity Reaction Status Date / Time peanut Allergy Severe Anaphylaxis, Verified 05/30/23 10:09 HIVES tree nut Allergy Severe Anaphylaxis Verified 05/30/23 10:09 hydromorphone Allergy Intermediate Hives / Verified 05/30/23 10:09 Red Face clarithromycin Allergy Mild N/V Verified 05/30/23 10:09 hydrocodone Allergy Mild Itching Verified 05/30/23 10:09 meperidine Allergy Mild Nausea and Verified 05/30/23 10:09 Vomiting azithromycin Allergy Unknown N/V, Verified 05/30/23 10:09 DIARRHEA, ABD CRAMPING. duloxetine Allergy Unknown BULGING Verified 05/30/23 10:09 EYES ondansetron Allergy Unknown PROLONGED Verified 05/30/23 10:09 QT ENERGY DRINKS Allergy Mild ORAL Uncoded 05/30/23 10:09 SWELLING WATERMELON-LEMON [place] DEE-NI' SLURPY Allergy Mild ORAL Uncoded 05/30/23 10:09 SWELLING Home Medications Medication Instructions Recorded Confirmed Type calcium citrate 1,000 mg tablet 1,800 mg PO DAILY 07/13/22 05/30/23 History cyclobenzaprine 10 mg tablet 10 mg PO TID PRN muscle spasm #30 01/29/23 05/30/23 Rx tabs metoclopramide HCl 10 mg tablet 10 mg PO Q6H PRN nausea and 04/12/23 05/30/23 Rx vomiting #60 tabs trazodone 50 mg tablet 50 mg PO QHS PRN Sleep #90 tabs 04/20/23 05/30/23 Rx celecoxib 100 mg capsule (Celebrex) 100 mg PO BID #60 caps 05/18/23 05/30/23 Rx lorazepam 0.5 mg tablet 0.5 mg PO BID PRN anxiety #60 tabs 05/18/23 05/30/23 Rx plecanatide 3 mg tablet (Trulance) 3 mg PO DAILY #90 tabs 05/29/23 05/30/23 Rx epinephrine 0.3 mg/0.3 mL 0.3 mg IM ONCE PRN Allergic 05/30/23 05/30/23 History injection, auto-injector Reaction famotidine 40 mg tablet 40 mg PO DAILY 05/30/23 05/30/23 History triamcinolone acetonide 0.1 % See Rx Instructions .Route 06/01/23 Rx dental paste .COMPLEX #5 grams Patient hx anesthesia problems: none Family hx anesthesia problems: none Results Review: All pre-operative results and documents have been reviewed as part of the pre-operative evaluation. 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 Irritable bowel syndrome with constipation Mast cell activation syndrome Mononucleosis (05/2019) Nausea and vomiting Postural orthostatic tachycardia syndrome Scapular dyskinesis Surgical History Surgical History History of arthroscopy of right knee History of endoscopy History of tonsillectomy Tarsal tunnel syndrome, left lower limb [place] teeth extracted Family History Family History Other Adopted Social History Social History Social History: Surrogate decision maker: Armand Koenig, . Code status: Full code. Smoking status: Never smoker Second hand tobacco smoke exposure: No Alcohol intake: never Drinks per week: 1 Alcohol use details: VERY RARE Substance use: never Substance use type: does not use Lack of Transportation: No Lack of Food: Never True Current Housing: I Have Housing
[2023-06-02] MEDS: SIMETHICONE ORAL SUSPENSION 20 MG/0.3 ML 30 ML BOTTLE 0.6 ML IRRIGATION (12:29)
[2023-06-02 12:37] VITALS: BP 130/95; PULSE 104; RESP 16; O2SAT 100
[2023-06-02 12:47] VITALS: BP 144/97; PULSE 110; RESP 18; O2SAT 100
[2023-06-02 12:57] VITALS: BP 136/101; PULSE 111; RESP 16; O2SAT 100
--- NOTE | 2023-06-02 12:57 | SUR.PHASEII ---
pt called RN into room at 1249 and stated her jaw dislocated. pt stated that she is used to this and when this occurs at home she takes a muscle relaxer and pops joint back in place. anesthesia speaking with pt at this time. spouse at bedside. pt denies needs or other complaints.
== END 2023-06-02 13:04 | disposition home or self-care (01) ==
PROVIDERS: PCP Family Medicine; Visit Provider Internal Medicine Gastroenterology
PROC: 0DJ08ZZ Inspection of Upper Intestinal Tract, Via Natural or Artificial Opening Endoscopic (ICD-10-PCS; CPT 43235; principal; 2023-06-02 12:30)
DX: R11.2 Nausea with vomiting, unspecified (principal); R68.81 Early satiety; F41.9 Anxiety disorder, unspecified; J45.909 Unspecified asthma, uncomplicated; K58.1 Irritable bowel syndrome with constipation; K21.9 Gastro-esophageal reflux disease without esophagitis; Q79.60 Ehlers-Danlos syndrome, unspecified; D89.40 Mast cell activation, unspecified; Z79.1 Long term (current) use of non-steroidal anti-inflammatories (NSAID)
CPT/HCPCS: 43239; 87081; 88305; J2704; J7120

== ENCOUNTER 2023-06-08 07:50 | Outpatient (CLI) | payer OTHER, SELFPAY ==
--- NOTE | ~2023-06-08 | NM_ITS ---
EXAM: NM gastric emptying study DATE: 06/08/2023 14:03 CRYSTAL SLICER INDICATION: Nausea and vomiting. TECHNIQUE: A gastric emptying study was performed using the methodology of Jena YEPEZ, et al. J Nucl Med 2007; 48:568-572. The patient was given a meal consisting of 2 scrambled eggs labeled with 0.95 mCi Tc-99m sulfur colloid, 2 slices of toast, two packages of jam, and approximately 120 mL of water. Simultaneous anterior and posterior 1-min images of the abdomen were obtained with the patient supin e at multiple time points over a total period of 4 hours. The geometric mean of anterior and posterio r views was determined, and the percentage retention was calculated for each time point. COMPARISON: None. FINDINGS: Gastric retention of the radiotracer-labeled meal was 59%, 34%, and 8% at the 1-hour, 2-ho ur, and 4-hour time points, respectively. With this technique, apparent rapid gastric emptying is sug gested by <30% gastric retention at 1 hour. Delayed gastric emptying is defined by gastric retention of >90% at 1 hour, >60% retention at 2 hours, or >10% retention at 4 hours. IMPRESSION: 1. Normal gastric emptying. Reviewed, dictated and finalized at location L. TAL SLICER IMPRESSION: 1. Normal gastric emptying.
== END 2023-06-08 07:51 | disposition home or self-care (01) ==
PROVIDERS: PCP Family Medicine; Visit Provider Nurse Practitioner
DX: R68.81 Early satiety (principal); R11.2 Nausea with vomiting, unspecified
CPT/HCPCS: 78264; A9541

== ENCOUNTER 2024-04-29 10:32 | Outpatient (CLI) | payer OTHER, SELFPAY ==
--- NOTE | ~2024-04-29 | XR_ITS ---
Clinical Indication: Dyspnea PA and lateral views of the chest: Comparison: 11/08/2022 Findings: The lungs are clear, without evidence of focal consolidation or pleural effusion. Cardiome diastinal silhouette is within normal limits. Bones and soft tissues are unremarkable. Impression: Normal chest. Reviewed, dictated and finalized at location . Impression: Normal chest.
[2024-04-29 11:44] LABS: Influenza A QL RT-PCR Negative (Negative); Influenza B QL RT-PCR Negative (Negative); RSV RNA, RT-PCR Negative (Negative); SARS-CoV-2 RNA PCR Negative (Negative)
== END 2024-04-29 10:33 | disposition home or self-care (01) ==
LOC: ANHLAB 10:33
PROVIDERS: PCP Family Medicine; Visit Provider Student in an Organized Health Care Education/Training Program
DX: R05.9 Cough, unspecified (principal); R06.00 Dyspnea, unspecified
CPT/HCPCS: 71046; 87637

== ENCOUNTER 2024-08-08 14:43 | Outpatient (CLI) | payer OTHER, SELFPAY ==
[2024-08-08 15:05] LABS: Hematocrit 39.9 % (37.0-47.0); Hemoglobin 12.4 g/dL (12.0-15.0); Mean Corpuscular HGB Conc 31.1 g/dl (32-36); Mean Corpuscular Hemoglobin 25.4 pg (26-34); Mean Corpuscular Volume 81.8 fl (80-100); Mean Platelet Volume 9.2 fl (7.4-10.4); Platelet Count Result 436 k/mm3 (150-375); Red Blood Count 4.88 M/mm3 (4.2-5.4); Red Cell Distribution Width 15.7 % (11.5-14.5); White Blood Count 8.2 K/mm3 (4.5-10.0)
[2024-08-08 15:19] LABS: Alanine Aminotransferase 58 U/L (6-35); Albumin Level 4.8 g/dL (3.5-5.1); Alkaline Phosphatase 110 U/L (38-126); Anion Gap 13 mmol/L (4-12); Aspartate Amino Transferase 64 U/L (14-36); Bilirubin,Total 0.4 mg/dL (0.2-1.3); Blood Urea Nitrogen 12 mg/dL (7-17); Carbon Dioxide 23 mmol/L (22-30); Chloride 103 mmol/L (98-107); Estimated Glomerular Filt Rate > 60; Glucose 97 mg/dL (65-110); Potassium 3.9 mmol/L (3.4-5.0); Sodium 139 mmol/L (137-145)
[2024-08-08 15:41] LABS: Influenza A QL RT-PCR Negative (Negative); Influenza B QL RT-PCR Negative (Negative); SARS-CoV-2 RNA PCR Negative (Negative)
== END 2024-08-08 14:44 | disposition home or self-care (01) ==
LOC: ANHLAB 14:45
PROVIDERS: PCP Family Medicine; Visit Provider Nurse Practitioner
DX: R11.2 Nausea with vomiting, unspecified (principal); R19.7 Diarrhea, unspecified; Z20.822 Contact with and (suspected) exposure to COVID-19
CPT/HCPCS: 36415; 80053; 85027; 87636

== ENCOUNTER 2024-09-26 10:20 | Emergency (ER) | payer OTHER, SELFPAY ==
[2024-09-26] VITALS (35 sets, daily range): BP systolic 134–169; BP diastolic 91–118; PULSE 118–144; RESP 12–28; TEMP 36.4; O2SAT 97–100
[2024-09-26] MEDS: diphenhydrAMINE HCl INJ 50 MG/ML VIAL IV PUSH ×2 (11:08→14:59)
[2024-09-26] MEDS: dexAMETHasone SOD PHOS INJ 10 MG/ML 1 ML VIAL IV PUSH ×2 (11:08→14:58)
[2024-09-26] MEDS: FAMOTIDINE 20 MG/2 ML VIAL 40 MG IV PUSH (11:09)
--- OUTSIDE RECORDS SUMMARY | 2024-09-26 11:24 | XMS_ITS | Patient Health Record ---
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 Name Role Phone Shannan Maldonado Primary Care Provider UnavailRomy Razo Unavailable [phone] Megan Alvarado Unavailable [phone] [employer], Provider Unavailable Unavailab le Allergies Allergen (clinical drug ingredient) Drug/Non Drug Allergy documented on EMR Reaction Allergy Type Onset Date Status BIAXIN (uncoded) vomiting Allergy Act hayder ZOFRAN (uncoded) Itching Allergy Act hayder Azithromycin vomiting Drug Allergy Acti ve duloxetine Cymbalta other reaction Drug Allergy A ctive meperidine Demerol vomiting Drug Allergy Active hydrocodone HYDROcodone QT Prolongation Drug Allergy Active hydromorphone HYDROmorphone Itching Drug Allergy Active Reason For Referral No Information Medications Medication SIG (Take, Route, Frequency, Duration) Notes Start Date End Date Status predniSONE 20 MG 3 tablets once a day for 2 days, 2 tablets once a day for 2 days, 1 tablet once a day for 2 days Orally Once a day for 6 days 09/11/2024 Active predniSONE 10 MG 2 tablets x3 days, 1 tablet x3 days Orally Once a day for 6 days 08/27/2024 Active predniSONE 20 mg 1 tab(s) orally once a day for bronchitis Active Famotidine 40 MG 1 tab(s) orally 2 times a day for 90 days Active Prochlorperazine Maleate 10 MG 1 tab(s) orally every 6 hours 10/11/2023 Active Reglan 10 MG 1 tab(s) orally Qday, PRN Active Cyclobenzaprine HCl 10 MG 1 tab(s) orally 3 times a day Active Flonase Allergy Relief 50 MCG/ACT 1 spray(s) intranasally once a day for 30 day(s) Not-Taking ZYRTEC 10 mg 1 tab(s) orally once a day for 30 days Active diazePAM 5 MG 1 tab(s) orally every 8 hours Active FAMOTIDINE 40 mg 1 tab(s) orally 2 times a day for 90 days Active traZODone HCl 50 MG as directed orally once a day Active Auvi-Q 0.3 MG/0.3ML as directed intramuscularly once for 1 day Active AUVI-Q 0.3 mg as directed intramuscularly once for 1 day Active Immunizations Vaccine Route Administration Date Status Comme nts Pneumovax 23 IM Intramuscular 02/25/2020 Administered Social History Tobacco Use: Social History Observation Description Date Details (start date - stop date) Never Smoker NA - NA Smoking Smart Form: Question Answer Notes Are you a: never smoker Tobacco Control (Standard) Question Answer Notes Tobacco use: Nonsmoker Problems Problem Type SNOMED Code ICD Code Onset Dates Problem Status W/U Status Risk Notes Problem Idiopathic urticaria (17847253) Idiopathic urticaria (L50.1) Active confirmed Problem Anemia (328403209) Anemia, unspecified (D64.9) Active confirmed Problem Chronic allergic conjunctivitis (58168417) Other chronic allergic conjunctivitis (H10.45) Active confirmed Problem Allergic rhinitis caused by pollen (disorder) (92466254) Allergic rhinitis due to pollen (J30.1) Active confirmed Problem Allergic rhinitis (98591795) Other allergic rhinitis (J30.89) Active confirmed Problem Chronic sinusitis (21587105) Chronic sinusitis, unspecified (J32.9) Active confirmed Problem Mild intermittent asthma (727079325) Mild intermittent asthma, uncomplicated (J45.20) Active confirmed Problem Recurrent oral aphthae (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) 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) Active confirmed Problem Angioneurotic edema (88862172) Angioneurotic edema, subsequent encounter (T78.3XXD) Active confirmed Problem Allergy status t o narcotic agent status (Z88.5) Active confirmed Problem Food allergy (068978058) Allergy to other foods (Z91.018) Active confirmed Problem Allergic rhinitis caused by animal hair and dander (261301385037816) Allergic rhinitis due to animal (cat) (dog) hair and dander (J30.81) Active confirmed Problem Angioneurotic edema (94893958) Angioneurotic edema, initial encounter (T78.3XXA) Active confirmed Problem Urticaria (491228225) Other Urticaria (L50.8) Active confirmed Vital Signs Oximetry 100 % 09/11/2024 Blood pressure diastolic 88 mm Hg 09/11/2024 Height 67 in 09/11/2024 Blood pressure systolic 144 mm Hg 09/11/2024 Weight 201.8 lbs 09/11/2024 BMI 31.6 kg/m2 09/11/2024 Encounters Encounter Location Date Provider Diagnosis [address] [address] 12/16/2023 Provider Elida [address] [address] 09/27/2023 Romy Dinesh Other Urticaria L50. [address] [address] 10/11/2023 Romy Dinesh Idiopathic urticaria L50.1 ; Angioneurotic edema, subsequent encounter T78.3XXD ; Chronic sinusitis, unspecified J32.9 ; Allergic rhinitis due to pollen J30.1 ; Allergic rhinitis due to animal (cat) (dog) hair and dander J30.81 ; Other allergic rhinitis J30.89 ; Other chronic allergic conjunctivitis H10.45 ; Allergy to other foods Z91.018 ; Allergy status to narcotic agent status Z88.5 ; Mild intermittent asthma, uncomplicated J45.20 and Anemia, unspecified D64.[address] [address] 10/25/2023 Romy Dinehs Other Urticaria L50. [address] [address] 11/08/2023 Romy Dinesh Other Urticaria L50. [address] [address] 11/22/2023 Romy Dinesh Other Urticaria L50. [address] [facility] [address] [place] [phone] 12/06/2023 Romy Dinesh Other Urticaria L50. [address] [facility] [address] [place] [phone] 12/20/2023 Romy Dinesh Other Urticaria L50. [address] [facility] [address] [place] [phone] 01/03/2024 Romy Dinesh Other Urticaria L50. [address] [facility] [address] [place] [phone] 01/17/2024 Romy Dinesh Other Urticaria L50. [address] [facility] [address] [place] [id number] 01/31/2024 Romy Dinesh Other Urticaria L50. 8 [facility] [employer] [address] [place] [phone] 02/14/2024 Romy Dinesh Other Urticaria L50. 8 [facility] [employer] [address] [place] [phone] 02/28/2024 Romy Dinesh Other Urticaria L50. [address] [facility] [address] [place] [phone] 03/13/2024 Romy Dinesh Other Urticaria L50. [address] [facility] [address] [place] [phone] 03/27/2024 Romy Dinesh Other Urticaria L50. [address] [facility] [address] [place] [id number] 04/10/2024 Romy Dinesh Other Urticaria L50. [address] [facility] [address] [place] [id number] 04/24/2024 Romy Dinesh Other Urticaria L50. [address] [facility] [address] [place] [id number] 05/08/2024 Romy Dinesh Other Urticaria L50. 8 [address] [employer] [address] [address] 05/22/2024 Romy Dinesh Idiopathic urticaria L50.1 ; Angioneurotic edema, subsequent encounter T78.3XXD ; Chronic sinusitis, unspecified J32.9 ; Allergic rhinitis due to pollen J30.1 ; Allergic rhinitis due to animal (cat) (dog) hair and dander J30.81 ; Other allergic rhinitis J30.89 ; Other chronic allergic conjunctivitis H10.45 ; Allergy to other foods Z91.018 ; Allergy status to narcotic agent status Z88.5 and Mild intermittent asthma, uncomplicated J45.[address]mitt[address] [address] 06/05/2024 Romy Dinesh Other Urticaria L50. [address] [address] 06/19/2024 Romy Dinesh Other Urticaria L50. [address] [address] 07/10/2024 Romy Dinesh Other Urticaria L50. [address] [address] 07/24/2024 Romy Dinesh Other Urticaria L50. [address] [address] 08/07/2024 Romy Dinesh Other Urticaria L50. 8 [address] [employer] [place] [phone] 08/27/2024 Romy Dinesh Idiopathic urticaria L50.1 ; Angioneurotic edema, subsequent encounter T78.3XXD ; Chronic sinusitis, unspecified J32.9 ; Allergic rhinitis due to pollen J30.1 ; Allergic rhinitis due to animal (cat) (dog) hair and dander J30.81 ; Other allergic rhinitis J30.89 ; Other chronic allergic conjunctivitis H10.45 ; Allergy to other foods Z91.018 ; Allergy status to narcotic agent status Z88.5 and Mild intermittent asthma, uncomplicated J45.20 [facility] [address] [place] [phone] 09/11/2024 Roym Montiel Idiopathic urticaria L50.1 ; Angioneurotic edema, subsequent encounter T78.3XXD ; Chronic sinusitis, unspecified J32.9 ; Allergic rhinitis due to pollen J30.1 ; Allergic rhinitis due to animal (cat) (dog) hair and dander J30.81 ; Other allergic rhinitis J30.89 ; Other chronic allergic conjunctivitis H10.45 ; Allergy to other foods Z91.018 ; Allergy status to narcotic agent status Z88.5 and Mild intermittent asthma, uncomplicated J45.20 [facility] [address] [place] [phone] 10/16/2023 Romy Montiel [facility] [address] [place] [phone] 10/23/2023 Romy Montiel Idiopathic urticaria L50.1 [facility] [address] [facility] [place] [address] 12/06/2023 Romy Montiel [address] [address] 01/10/2024 Romy Montiel [facility] [address] [place] [phone] 05/02/2024 Romy Montiel Idiopathic urticaria L50.1 [facility] [address] [facility] [place] [address] 05/24/2024 Romy Montiel [address] [address] 06/19/2024 Romy Montiel [facility] [address] [facility] [place] [address] 06/25/2024 Romy Montiel [facility] [address] [facility] [place] [address] 07/31/2024 Romy Montiel [facility] [address] [place] [phone] 08/05/2024 Romyelicia Montiel [facility] [address] [place] [phone] 08/05/2024 Romy Montiel [facility] [address] [place], [place] [address]b[facility] [address] [place] [phone] 08/21/2024 Romyelicia Montiel [facility] [address] [facility] [address] [place] [phone] 08/26/2024 Romy Dinesh [facility] [address] [place] [address] 09/09/2024 Romyelicia Montiel [facility] [address] [place] [address] 09/17/2024 Romy Dinesh Assessments Encounter Date Diagnosis (ICD Code) Assessment Notes Treatment Notes Treatment Clinical Notes Section Notes 09/27/2023 Other Urticaria (ICD-10 - L50.8) 10/23/2023 Idiopathic urticaria (ICD-10 - L50.1) 11/08/2023 Other Urticaria (ICD-10 - L50.8) 11/22/2023 Other Urticaria (ICD-10 - L50.8) 12/06/2023 Other Urticaria (ICD-10 - L50.8) 12/20/2023 Other Urticaria (ICD-10 - L50.8) 01/03/2024 Other Urticaria (ICD-10 - L50.8) 01/31/2024 Other Urticaria (ICD-10 - L50.8) 02/14/2024 Other Urticaria (ICD-10 - L50.8) 02/28/2024 Other Urticaria (ICD-10 - L50.8) 03/13/2024 Other Urticaria (ICD-10 - L50.8) 03/27/2024 Other Urticaria (ICD-10 - L50.8) 04/10/2024 Other Urticaria (ICD-10 - L50.8) 04/24/2024 Other Urticaria (ICD-10 - L50.8) 05/02/2024 Idiopathic urticaria (ICD-10 - L50.1) 05/08/2024 Other Urticaria (ICD-10 - L50.8) 05/22/2024 Idiopathic urticaria (ICD-10 - L50.1) 06/05/2024 Other Urticaria (ICD-10 - L50.8) 06/19/2024 Other Urticaria (ICD-10 - L50.8) 07/10/2024 Other Urticaria (ICD-10 - L50.8) 07/24/2024 Other Urticaria (ICD-10 - L50.8) 08/07/2024 Other Urticaria (ICD-10 - L50.8) 08/27/2024 Idiopathic urticaria (ICD-10 - L50.1) She was sent home with steroids after hospitalization and last dose today. Plan for further taper as above. 05/22/2024 Angioneurotic edema, subsequent encounter (ICD-10 - T78.3XXD) Recurrent episodes of anaphylaxis with multiple hospitalization and ER visits Spring 2022. Now improved with Xolair q2 weeks but flare yesterday. She is also following with Dr. Suarez. Typtase 3-2022 in the ER was 2.4 mg which is normal. Normal tryptase, urine histamine, sed rate, and CMP. She received Xolair today in the office. Continue Xolair q2 weeks. Monitor for recurrence. Request records from Dr. Suarez. Needs to f/u with Human Resource Professional or PCP due to fainting episodes 08/27/2024 Angioneurotic edema, subsequent encounter (ICD-10 - T78.3XXD) Recurrent episodes of anaphylaxis with multiple hospitalization and ER visits. Overall improved with Xolair q2 weeks but required hospitalization last week. Flare is not consistent with a food allergy and may have been secondary to oral contraceptives. She is also following with Dr. Suarez. Typtase 3-2022 in the ER was 2.4 mg which is normal. Normal tryptase, urine histamine, sed rate, and CMP. She received Xolair today in the office. Continue Xolair q2 weeks. Monitor for recurrence. Request records from Dr. Suarez. 09/11/2024 Idiopathic urticaria (ICD-10 - L50.1) She was sent home with steroids after hospitalization and requesting a further taper 09/11/2024 Angioneurotic edema, subsequent encounter (ICD-10 - T78.3XXD) Recurrent episodes of anaphylaxis with multiple hospitalization and ER visits. Overall improved with Xolair q2 weeks but required hospitalization twice in August. Flare is not consistent with a food allergy and I do not think most recent hospitalization was due to amoxicillin. Skin testing can be performed to penicillin when she is off antihistamines. She is also following with Dr. Suarez. Typtase 3-2022 in the ER was 2.4 mg which is normal. Normal tryptase, urine histamine, sed rate, and CMP. She received Xolair today in the office. Continue Xolair q2 weeks. We also discussed restarting mirtazapine and buspirone and she would need to speak with PCP. Plan to speak with Dr. Suarez about changing therapy since unclear if benefit from Xolair. 01/17/2024 Other Urticaria (ICD-10 - L50.8) 10/25/2023 Other Urticaria (ICD-10 - L50.8) 10/11/2023 Idiopathic urticaria (ICD-10 - L50.1) 10/11/2023 Angioneurotic edema, subsequent encounter (ICD-10 - T78.3XXD) Recurrent episodes of anaphylaxis with multiple hospitalization and ER visits Spring 2022. Now improved with Xolair q2 weeks and no interval flares. She is also following with Dr. Suarez. Typtase 3-2022 in the ER was 2.4 mg which is normal. Normal tryptase, urine histamine, sed rate, and CMP. She received Xolair today in the office. Continue Xolair q2 weeks. 10/11/2023 Chronic sinusitis, unspecified (ICD-10 - J32.9) History of chronic sinusitis requiring antibiotics 5 times a year. Immunodeficiency evaluation normal and normal response to vaccines 09/11/2024 Chronic sinusitis, unspecified (ICD-10 - J32.9) History of chronic sinusitis requiring antibiotics 5 times a year. Immunodeficiency evaluation normal and normal response to vaccines 08/27/2024 Chronic sinusitis, unspecified (ICD-10 - J32.9) History of chronic sinusitis requiring antibiotics 5 times a year. Immunodeficiency evaluation normal and normal response to vaccines 05/22/2024 Chronic sinusitis, unspecified (ICD-10 - J32.9) History of chronic sinusitis requiring antibiotics 5 times a year. Immunodeficiency evaluation normal and normal response to vaccines 05/22/2024 Allergic rhinitis due to pollen (ICD-10 - J30.1) Rosangela clearly suffers from atopic disease based upon history and our skin testing. Consider immunotherapy in the future if needed. 08/27/2024 Allergic rhinitis due to pollen (ICD-10 - J30.1) Rosangela clearly suffers from atopic disease based upon history and our skin testing. Consider immunotherapy in the future if needed. 09/11/2024 Allergic rhinitis due to pollen (ICD-10 - J30.1) Rosangela clearly suffers from atopic disease based upon history and our skin testing. Consider immunotherapy in the future if needed. 10/11/2023 Allergic rhinitis due to pollen (ICD-10 - J30.1) Rosangela clearly suffers from atopic disease based upon history and our skin testing. Consider immunotherapy in the future if needed. 10/11/2023 Allergic rhinitis due to animal (cat) (dog) hair and dander (ICD-10 - J30.81) 09/11/2024 Allergic rhinitis due to animal (cat) (dog) hair and dander (ICD-10 - J30.81) 08/27/2024 Allergic rhinitis due to animal (cat) (dog) hair and dander (ICD-10 - J30.81) 05/22/2024 Allergic rhinitis due to animal (cat) (dog) hair and dander (ICD-10 - J30.81) 05/22/2024 Other allergic rhinitis (ICD-10 - J30.89) 08/27/2024 Other allergic rhinitis (ICD-10 - J30.89) 09/11/2024 Other allergic rhinitis (ICD-10 - J30.89) 10/11/2023 Other allergic rhinitis (ICD-10 - J30.89) 10/11/2023 Other chronic allergic conjunctivitis (ICD-10 - H10.45) Given ocular signs and symptoms I encouraged allergy avoidance measures and meds as above. If symptoms persist, consider adding additional medications including intraocular antihistamine/mast cell stabilizer, PRN 09/11/2024 Other chronic allergic conjunctivitis (ICD-10 - H10.45) Given ocular signs and symptoms I encouraged allergy avoidance measures and meds as above. If symptoms persist, consider adding additional medications including intraocular antihistamine/mast cell stabilizer, PRN 08/27/2024 Other chronic allergic conjunctivitis (ICD-10 - H10.45) Given ocular signs and symptoms I encouraged allergy avoidance measures and meds as above. If symptoms persist, consider adding additional medications including intraocular antihistamine/mast cell stabilizer, PRN 05/22/2024 Other chronic allergic conjunctivitis (ICD-10 - H10.45) Given ocular signs and symptoms I encouraged allergy avoidance measures and meds as above. If symptoms persist, consider adding additional medications including intraocular antihistamine/mast cell stabilizer, PRN 08/27/2024 Allergy to other foods (ICD-10 - Z91.018) skin testing to all food was negative at prior visit. Episodes do not appear to be food related 05/22/2024 Allergy to other foods (ICD-10 - Z91.018) skin testing to all food was negative at prior visit. Episodes do not appear to be food related 09/11/2024 Allergy to other foods (ICD-10 - Z91.018) skin testing to all food was negative at prior visit. Episodes do not appear to be food related 10/11/2023 Allergy to other foods (ICD-10 - Z91.018) skin testing to all food was negative at prior visit. Episodes do not appear to be food related 10/11/2023 Allergy status to narcotic agent status (ICD-10 - Z88.5) Appears to have allergic reaction with morphine, but only involved the IV site. May be a local reaction. No other symptoms. Avoid for now since tolerates Fentanyl. 09/11/2024 Allergy status to narcotic agent status (ICD-10 - Z88.5) Appears to have allergic reaction with morphine, but only involved the IV site. May be a local reaction. No other symptoms. Avoid for now since tolerates Fentanyl. 05/22/2024 Allergy status to narcotic agent status (ICD-10 - Z88.5) Appears to have allergic reaction with morphine, but only involved the IV site. May be a local reaction. No other symptoms. Avoid for now since tolerates Fentanyl. 08/27/2024 Allergy status to narcotic agent status (ICD-10 - Z88.5) Appears to have allergic reaction with morphine, but only involved the IV site. May be a local reaction. No other symptoms. Avoid for now since tolerates Fentanyl. 05/22/2024 Mild intermittent asthma, uncomplicated (ICD-10 - J45.20) Spirometry at last check is normal. Continue prn albuterol 08/27/2024 Mild intermittent asthma, uncomplicated (ICD-10 - J45.20) Spirometry at last check is normal. Continue prn albuterol 09/11/2024 Mild intermittent asthma, uncomplicated (ICD-10 - J45.20) Spirometry at last check is normal. Continue prn albuterol 10/11/2023 Mild intermittent asthma, uncomplicated (ICD-10 - J45.20) Spirometry at last check is normal. Continue prn albuterol 10/11/2023 Anemia, unspecified (ICD-10 - D64.9) Anemia on CBC and history of iron deficiency anemia. She is now taking iron supplements 08/21/2024 Other 09/27/2023 Other 10/25/2023 Other 11/08/2023 Other 11/22/2023 Other 12/06/2023 Other 12/20/2023 Other 01/03/2024 Other 01/17/2024 Other 01/31/2024 Other 02/14/2024 Other 02/28/2024 Other 03/13/2024 Other 03/27/2024 Other 04/10/2024 Other 04/24/2024 Other 05/08/2024 Other 05/22/2024 Other 06/05/2024 Other 06/19/2024 Other 07/10/2024 Other 07/24/2024 Other 08/07/2024 Other 08/27/2024 Other 09/11/2024 Other Plan Of Treatment Pending Test Test Name Order Date -CBC With Differential/Platelet 02/12/20 N METHYLHISTAMINE, URINE 02/25/2020 STREPTOCOCCUS PNEUMONIAE IGG AB (23 SERO TYPES) 02/25/2020 5-HIAA, 24-HOUR URINE 12/15/2021 ALPHA GAL PANEL 12/15/2021 PROSTAGLANDIN D2 (PG D2), URINE 12/16/19 LEUKOTRIENE E4, URINE 12/15/2021 LEUKOTRIENE E4, URINE 10/26/2022 LEUKOTRIENE E4, URINE 02/25/2020 -IgE Peanut w/Component Profile 10/29/19 Next Appt Details Provider Name:Romy BruceFranci archer, 10/02/2024 02:45:00 PM, [address] [facility], [address], [place], [address], Insurance Providers Payer Name Payer Address Payer Phone Subscriber Number Group Number Insured Name Patient Relationship to Insured Coverage Start Date Coverage End Date [employer] [address] [place] [address] [id number] Anson Koenig Spouse - patient is the spouse of the insured 4 [facility] [address] [place] [address] [id number] Anson Koenig Spouse - patient is the spouse of the insured 5 [employer] [address] [place] [address] [address] [place] [address] [id number] Rosangela Koenig Self - patient is the insured Medical (General) History Medical History History ICD Code 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 8 Anaphylaxis Idiopathic urticaria L50.1 Chronic sinusitis, unspecified J32.9 Recurrent oral aphthae K12.0 Allergic rhinitis due to pollen J30.1 Allergic rhinitis due to animal (cat) (d og) hair and dander J30.81 Other allergic rhinitis J30.89 Other chronic allergic conjunctivitis H1 0.45 Allergy to other foods Z91.018 Angioneurotic edema, initial encounter T 78.3XXA Angioneurotic edema, subsequent encounte r T78.3XXD Surgical History Surgery Date(Month/Year) Muscle Biopsy 10/17/2006 Gueydan Teeth Removal 2008 D&C 2008 Medial Patella Femoral Ligament Reconstr uction 11/06/2009 Tonsillectomy 10/2010 Tarsal Tunnal Release 2016 foot surgery for toe dislocation (right foot) 12/2021 screw right great toe replaced and pin p ut in second right toe 04/2023 Hospitalization History Reason Date(Month/Year) anaphylaxis 10/12/22 anaphylaxis 09/08/2022 Epistaxis 06/28/22 Urticaria and Angioedema October 2021
--- OUTSIDE RECORDS SUMMARY | 2024-09-26 11:25 | XMS_ITS | Referral Summary ---
Author Organization [facility] Geena Hernandez Extdamian nsion Address [address] [place] [address] Care Team Providers Care Fabrication Manager Name Role Phone Shannan Maldonado MD Primary Care Provider [phone] Encounters Date Type Department Care Team Description 09/23/2024 4:55 PM CDT - 09/24/2024 1:30 PM CDT Hospital Encounter [place] [address] [address] [place] [address] Samuel Bowen MD Winston, Jared Todd, MD Ali, Md Shahin, MD Allergic reaction, initial encounter (Primary Dx) Discharge Disposition: Discharge to home or self care 09/01/2024 2:02 PM SEWER CLEANER - 09/05/2024 11:38 AM SEWER CLEANER Hospital Encounter [place] [address] [address] [place] [address] Wil Monteiro MD Gaspe Mudiyanselage, Nilupa Sewwandi, MD Smith, Thomas Hamilton, MD Allergic reaction, initial encounter (Primary Dx) Discharge Disposition: Discharge to home or self care 08/19/2024 4:39 PM SEWER CLEANER - 08/22/2024 1:15 PM SEWER CLEANER Hospital Encounter [facility] [address] [place] [id number] José Luis Tripp MD Winston, Jared Todd, MD Anaphylaxis, initial encounter (Primary Dx) Discharge Disposition: Discharge to home or self care from Last 3 Months Allergies Active Allergy Reactions Criticality Noted Date Comments Adhesive Blisters,Rash Medium 06/13/2019 Reaction: Rash, Blisters, Amoxicillin-Pot Clavulanate Itching Low 09/05/2024 Azithromycin Vomiting,Stomach upset,Other (See comments) High 05/21/2010 Stomach/GI Upset Clarithromycin Anaphylaxis,Swelling , Nausea & Vomiting High 05/21/2010 Swelling Duloxetine Fatigue,Itching,Othe r (See comments) Low 08/13/2010 Itching adverse reaction Hydrocodone Itching,Anaphylaxis, H feli High 01/13/2020 Itching Hydromorphone Hives,Palpitations,A n gioedema,Itching,Othe r (See comments) High 02/28/2019 Hives Meperidine Vomiting,Nausea And Vomiting,Stomach upset,Nausea & Vomiting High 05/21/2010 Stomach/GI Upset Nuts Anaphylaxis High 03/17/2022 Ondansetron Palpitations,Other (See comments),Stomach upset High 10/07/2020 Prolonged qt Stomach/GI Upset Peanut Anaphylaxis High 03/17/2022 Peanut Butter Flavor Angioedema High 10/24/2021 Tree Nuts Swelling Medium 10/24/2021 Medications cetirizine (ZyrTEC) 10 mg tablet Take 1 tablet (10 mg total) by mouth 2 (two) times a day Active diazePAM (VALIUM) 5 mg tablet Take 1 tablet (5 mg total) by mouth 3 (three) times a day as needed for anxiety 20 tablet 02/17/20 21 Active pseudoephedrine ER (SUDAFED) 120 mg 12 hr tabletIndicatio ns:Nasal Congestion Take 1 tablet (120 mg total) by mouth every 12 (twelve) hours as needed for congestion Active traZODone (DESYREL) 50 mg tablet Take 1 tablet (50 mg total) by mouth nightly as needed for sleep Active famotidine (PEPCID) 40 mg tablet Take 1 tablet (40 mg total) by mouth 2 (two) times a day 09/18/19 23 Active metoclopramide (REGLAN) 10 mg tablet Take 1 tablet (10 mg total) by mouth 2 (two) times a day as needed 09/28/19 23 Active triamcinolone (KENALOG) 0.1 % paste Apply 0.25 inches to teeth 2 (two) times a day as needed for mucositis Active prochlorperazin e (COMPAZINE) 10 mg tablet Take 1 tablet (10 mg total) by mouth every 6 (six) hours as needed for nausea or vomiting Active EPINEPHrine (EpiPen) 0.3 mg/0.3 mL auto-injection syringeIndicati ons:Anaphylaxis Inject 0.3 mL (0.3 mg total) into the muscle as instructed as needed for anaphylaxis 1 each 3 09/06/19 25 Active cyclobenzaprine (FLEXERIL) 10 mg tablet Take 1 tablet (10 mg total) by mouth 2 (two) times a day Active omalizumab (Xolair) 300 mg/2 mL syringe Inject 2 mL (300 mg total) under the skin every 14 (fourteen) days Active predniSONE (DELTASONE) 20 mg tabletIndicatio ns:Asthma Exacerbation Take 2 tablets (40 mg) by mouth daily 2 tablet 09/26/19 25 Active traMADoL (ULTRAM) 50 mg tablet Take 1 tablet (50 mg total) by mouth every 6 (six) hours as needed 2024 Discontinued omalizumab (XOLAIR) 150 mg injection Inject 1.2 mL (150 mg total) under the skin every 14 (fourteen) days 2024 Discontinued(A lternate therapy) cyclobenzaprine (FLEXERIL) 5 mg tablet Take 2 tablets (10 mg total) by mouth 2 (two) times a day 09/26/19 23 2024 Discontinued(A lternate therapy) EPINEPHrine (EpiPen) 0.3 mg/0.3 mL auto-injection syringeIndicati ons:Anaphylaxis Inject 0.3 mL (0.3 mg total) into the muscle as instructed as needed for anaphylaxis 1 each 08/19/19 25 2024 Discontinued amoxicillin-cla vulanate (AUGMENTIN) 875-125 mg per tablet Take by mouth 2 (two) times a day 2024 Discontinued(S top Taking at Discharge) predniSONE (DELTASONE) 10 mg tablet Take 4 tablets (40 mg) by mouth daily for 2 days, THEN 3 tablets (30 mg) daily for 2 days, THEN 2 tablets (20 mg) daily for 2 days, THEN 1 tablet (10 mg) daily for 2 days. 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 No 09/24/2024 Social Connection and Isolat ion Panel [NHANES] Answer Date Recorded In a typical week, how many times do you talk on the phone with family, friends, or neighbors? More than three times a week 09/24/2024 How often do you get togethe r with friends or relatives? More than three times a week 09/24/2024 How often do you attend [facility] or hinduism services? Never 09/24/2024 Do you belong to any clubs o r organizations such as hinduism groups, unions, fraternal or athletic groups, or school groups? No 09/24/2024 How often do you attend meet ings of the clubs or organizations you belong to? Never 09/24/2024 Are you , , di vorced, , never , or living with a partner? 09/24/2024 AUDIT-C Answer Date Recorded Q1: How often do you have a drink containing alc ohol? Monthly or less 09/02/2024 Q2: How many drinks containi ng alcohol do you have on a typical day when you are drinking? 1 or 2 09/02/2024 Q3: How often do you have si x or more drinks on one occasion? Never 09/02/2024 Overall Financial Resource Strain (CARDIA) Answe r Date Recorded How hard is it for you to pa y for the very basics like food, housing, medical care, and heating? Not hard at all 09/24/2024 PHQ-2 Answer Date Recorded PHQ-2 Total Score 0 09/03/2024 Hunger Vital Sign Answer Date Recorded Within the past 12 months, y ou worried that your food would run out before you got the money to buy more. Never true 09/25/19 Within the past 12 months, t he food you bought just didn't last and you didn't have money to get more. Never true 09/24/2024 PRAPARE - Transportation Answer Date Re corded In the past 12 months, has l ack of transportation kept you from medical appointments or from getting medications? No 09/01 In the past 12 months, has l ack of transportation kept you from meetings, work, or from getting things needed for daily living? No 09/24/2024 PHQ-9 Answer Date Recorded PHQ-9 Total Score 1 09/03/2024 Housing Stability Vital Sign Answer Dmitri e Recorded In the last 12 months, was t here a time when you were not able to pay the mortgage or rent on time? No 09/24/2024 In the past 12 months, how m any times have you moved where you were living? 0 09/24/2024 At any time in the past 12 m [facility], were you homeless or living in a long term (including now)? No 09/24/2024 Personal Safety Answer Date Recorded Have you ever been in or are you currently in a harmful physical or emotional relationship or is someone making you feel afraid or unsafe? Denies 09/23/2024 Comments No Sex and Gender Information Value Date Recorded Sex Assigned at Not on file Legal Sex Female 1:34 AM SEWER CLEANER Gender Identity Female 07/01/2022 7:31 PM SEWER CLEANER Sexual Orientation Not on file Last Filed Vital Signs Vital Sign Reading Time Taken Comments Blood Pressure 131/83 09/24/2024 8:40 AM CDT Pulse 131 09/24/2024 8:40 AM CDT Temperature 37.1 C (98.8 F) 09/24/2024 8:40 AM CDT Respiratory Rate 20 09/24/2024 8:40 AM CDT Oxygen Saturation 99% 09/24/2024 8:40 AM CDT Inhaled Oxygen Concentration - - Weight 90.1 kg (198 lb 10.2 oz) 09/23/2024 4:17 PM CDT Height 170.2 cm (5' 7 ) 09/01/2024 9:23 PM SEWER CLEANER Body Mass Index 31.11 09/01/2024 9:23 PM SEWER CLEANER Plan of Treatment Not on file Procedures Procedure Name Priority Date/Time Associated Diagnosis Comments EGFR Routine 09/24/2024 3:43 AM CDT DIFFERENTIAL AUTO Routine 09/24/2024 3:4 3 AM CDT BASIC METABOLIC PANEL Routine 09/24/2024 3:43 AM CDT CBC WITH AUTO DIFFERENTIAL Routine 09/24/2024 3:43 AM CDT XR MANDIBLE 4 OR MORE VIEWS Critical/Life- Threatening 09/23/2024 8:29 PM CDT TN CLOSED TX STERNOCLAVICULAR DISLC W/MANIPULATION Routine 09/23/2024 7:35 PM CDT XR MANDIBLE 4 OR MORE VIEWS ED Urgent/IP Urgent 09/23/2024 6:50 PM CDT XR CHEST 1 VIEW ED 09/23/2024 5:00 PM CDT ECG 12-LEAD STAT 09/23/2024 4:46 PM CDT EGFR STAT 09/23/2024 4:27 PM CDT DIFFERENTIAL AUTO STAT 09/23/2024 4:2 7 PM CDT CBC WITH AUTO DIFFERENTIAL STAT 09/23/2024 4:27 PM CDT COMPREHENSIVE METABOLIC PANEL STAT 09/23/2024 4:27 PM CDT CBC WITHOUT DIFFERENTIAL Routine 025 4:27 AM SEWER CLEANER CBC WITHOUT DIFFERENTIAL Routine 025 4:25 AM SEWER CLEANER TROPONIN T HIGH-SENSITIVITY 2-HOUR Timed 09/01/2024 5:11 PM SEWER CLEANER URINALYSIS AND REFLEX TO MICROSCOPIC AND CULTURE STAT 09/01/2024 4:58 PM SEWER CLEANER XR CHEST 1 VIEW ED 09/01/2024 3:05 PM SEWER CLEANER EGFR STAT 09/01/2024 2:59 PM SEWER CLEANER DIFFERENTIAL AUTO STAT 09/01/2024 2:5 9 PM SEWER CLEANER MAGNESIUM STAT 09/01/2024 2:59 PM SEWER CLEANER THYROID FUNCTION CASCADE STAT 025 2:59 PM SEWER CLEANER TROPONIN T HIGH-SENSITIVITY SERIES (BASELINE, 2HR, 4HR, 6HR) STAT 09/01/2024 2:59 PM SEWER CLEANER BASIC METABOLIC PANEL STAT 09/01/2024 2:59 PM SEWER CLEANER CBC WITH AUTO DIFFERENTIAL STAT 09/01/2024 2:59 PM SEWER CLEANER POCT HCG, URINE Routine 09/01/2024 2:28 PM SEWER CLEANER ECG 12-LEAD Routine 09/01/2024 1:54 PM SEWER CLEANER EGFR Routine 08/22/2024 7:57 AM SEWER CLEANER CBC WITHOUT DIFFERENTIAL Routine 025 7:57 AM SEWER CLEANER BASIC METABOLIC PANEL Routine 08/22/2024 7:57 AM SEWER CLEANER EGFR Routine 08/21/2024 7:53 AM SEWER CLEANER CBC WITHOUT DIFFERENTIAL Routine 025 7:53 AM SEWER CLEANER BASIC METABOLIC PANEL Routine 08/21/2024 7:53 AM SEWER CLEANER TN CLOSED TX TEMPOROMANDIBULAR DISLOCATION 1ST/SBSQ Routine 08/20/2024 1:18 PM SEWER CLEANER ED MODERATE SEDATION Routine 08/20/2024 1:18 PM SEWER CLEANER XR MANDIBLE LESS THAN 4 VIEWS Critical/Life- Threatening 08/20/2024 11:41 AM SEWER CLEANER SEPSIS LACTATE WITH REFLEX Timed 08/20/2024 8:24 AM SEWER CLEANER EGFR Routine 08/20/2024 3:25 AM SEWER CLEANER CBC WITHOUT DIFFERENTIAL Routine 025 3:25 AM SEWER CLEANER BASIC METABOLIC PANEL Routine 08/20/2024 3:25 AM SEWER CLEANER SEPSIS LACTATE WITH REFLEX Timed 08/20/2024 3:25 AM SEWER CLEANER ECG 12-LEAD Routine 08/20/2024 2:26 AM SEWER CLEANER SEPSIS LACTATE WITH REFLEX STAT 08/19/2024 8:52 PM SEWER CLEANER ECG 12-LEAD STAT 08/19/2024 8:25 PM SEWER CLEANER EGFR STAT 08/19/2024 8:20 PM SEWER CLEANER DIFFERENTIAL AUTO STAT 08/19/2024 8:2 0 PM SEWER CLEANER CBC WITH AUTO DIFFERENTIAL STAT 08/19/2024 8:20 PM SEWER CLEANER COMPREHENSIVE METABOLIC PANEL STAT 08/19/2024 8:20 PM SEWER CLEANER ED CRITICAL CARE Routine 08/19/2024 5:13 PM SEWER CLEANER from Last 3 Months Results * eGFR (09/24/2024 3:43 AM CDT) eGFR >90 >=60 mL/min/1. 73 m2 Comment: Interpretive Data Reference Interval Normal >/= 90 mL/min/1.73m2 Mildly decreased* 60 - 89 mL/min/1.73m2 Mildly to moderately decreased 45 - 59 mL/min/1.73m2 Moderately to severely decreased 30 - 44 mL/min/1.73m2 Severely decreased 15 - 29 mL/min/1.73m2 Kidney Failure < 15 mL/min/1.73m2 *Relative to young adult level Estimated glomerular filtration rate is determined by the 2020 CKD-EPI equation recommended by the National Kidney Foundation (A Unifying Approach to GFR Estimation: Recommendations of the NKF-ASK Task Force on Reassessing the Inclusion of Race in Diagnosing Kidney Disease, JASN 2020). The CKD-EPI equation should not be used for patients with unstable renal function and has not been validated in children and those over 70. Current interpretive data was last reviewed 2021. Testing performed by: [address] [address] Blood 09/24/2024 3:43 AM CDT 09/24/2024 4:47 AM CDT us Dariela Cortez NP LAB BLOOD ORDERABLES Final R esult [facility] [address] [facility] Department [place] [address] * (ABNORMAL) Differential, auto (09/24/2024 3:43 AM CDT) Neutrophil abs 9.1(H) 1.5 - 6.5 K/cumm Comment:Testing performed by : [address] [address] Imm gran abs 0.0 0.0 - 0.1 K/cumm [facility] Comment:Testing performed by : [facility], [address] [place] [address]., [address] Lymphocyte abs 0.7(L) 0.8 - 3.3 K/cumm [facility] Comment:Testing performed by : [address] [address] Monocyte abs 0.3 0.2 - 0.8 K/cumm [facility] Comment:Testing performed by : [address] [address] Eosinophil abs 0.0 0.0 - 0.5 K/cumm [facility] Comment:Testing performed by : [address] [address] Basophil abs 0.0 0.0 - 0.1 K/cumm [facility] Comment:Testing performed by : [address] [address] Neutrophil pct 89.5 % [facility] Comment: Interpretive Data Percent cell count reference ranges are not reported, since discordance with absolute values may lead to misinterpretation of CBC data. Current Interpretive Data was last revised on 2017. Testing performed by: [address] [address] Imm gran pct 0.3 % [facility] Comment: Interpretive Data Percent cell count reference ranges are not reported, since discordance with absolute values may lead to misinterpretation of CBC data. Current Interpretive Data was last revised on 2017. Testing performed by: [address] [address] Lymphocyte pct 6.9 % [facility] [place] Comment: Interpretive Data Percent cell count reference ranges are not reported, since discordance with absolute values may lead to misinterpretation of CBC data. Current Interpretive Data was last revised on 2017. Testing performed by: [address] [address] Monocyte pct 3.1 % [facility] Comment: Interpretive Data Percent cell count reference ranges are not reported, since discordance with absolute values may lead to misinterpretation of CBC data. Current Interpretive Data was last revised on 2017. Testing performed by: [address] [place]., [address] Eosinophil pct 0.0 % [facility] Comment: Interpretive Data Percent cell count reference ranges are not reported, since discordance with absolute values may lead to misinterpretation of CBC data. Current Interpretive Data was last revised on 2017. Testing performed by: [address] [address] Basophil pct 0.2 % [facility] Comment: Interpretive Data Percent cell count reference ranges are not reported, since discordance with absolute values may lead to misinterpretation of CBC data. Current Interpretive Data was last revised on 2017. Testing performed by: [address] [address] Blood 09/24/2024 3:43 AM CDT 09/24/2024 4:50 AM CDT us Dariela Cortez MACHINE SPECIALIST LAB BLOOD ORDERABLES Final R esult [facility] [address] Department [place] [address] * (ABNORMAL) CBC with auto differential (09/24/2024 3:43 AM CDT) WBC 10.2(H) 3.8 - 9.9 K/cumm Comment:Testing performed by : [address] [address] Hgb 10.5(L) 11.9 - 15.5 g/dL [facility] Comment:Testing performed by : [address] [address] Hct 34.2(L) 35.6 - 45.5 % [facility] Comment:Testing performed by : [address] [address] Plt 418(H) 150 - 400 K/cumm [facility] Comment:Testing performed by : [address] [address] MPV 9.7 9.1 - 12.3 fL [facility] Comment:Testing performed by : [address] [address] RBC 4.17 3.90 - 5.20 M/cumm [facility] Comment:Testing performed by : [address] [address] MCV 82.0 81.3 - 96.4 fL [facility] Comment:Testing performed by : [address] [address] MCH 25.2(L) 27.1 - 33.3 pg [facility] Comment:Testing performed by : [address] [address] MCHC 30.7(L) 32.3 - 35.7 g/dL [facility] Comment:Testing performed by : [address] [address] RDW CV 15.6(H) 11.1 - 14.9 % [facility] Comment:Testing performed by : [address], [address] RDW SD 46.4 35.7 - 48.1 fL [facility] Comment:Testing performed by : [address] [address] NRBC abs 0.00 0.00 - 0.01 K/cumm [facility] Comment:Testing performed by : [address] [address] Blood 09/24/2024 3:43 AM CDT 09/24/2024 4:50 AM CDT Dariela Cortez MACHINE SPECIALIST LAB BLOOD ORDERABLES Final R esult [facility] [address] [facility] Department [place] [address] * (ABNORMAL) Basic metabolic panel (09/24/2024 3:43 AM CDT) Pathologist [facility] [place] Sodium 138 135 - 145 mmol/L Comment:Testing performed by : [address], [address] Potassium, pl 4.2 3.3 - 4.9 mmol/L [facility] Comment:Testing performed by : [address] [address] Chloride 107 97 - 110 mmol/L [facility] Comment:Testing performed by : [address] [address] CO2 21(L) 22 - 32 mmol/L [facility] Comment:Testing performed by : [address] [address] Anion gap 10 2 - 15 mmol/L [facility] Comment:Testing performed by : [address] [address] BUN 10 6 - 25 mg/dL [facility] Comment:Testing performed by : [address] [address] Creatinine 0.71 0.60 - 1.10 mg/dL [facility] Comment:Testing performed by : [address] [address] Glucose 145 70 - 199 mg/dL [facility] Comment: Interpretive Data Fasting glucose >/= 126 mg/dl is diagnostic for diabetes. Fasting is defined as no caloric intake for at least 8 hours. Fasting glucose between 100 mg/dl to 125 mg/dl is diagnostic of prediabetes. In a patient with classic symptoms of hyperglycemia or hyperglycemic crisis, a random glucose >/= 200 mg/dl is diagnostic for diabetes. In the absence of unequivocal hyperglycemia, results should be confirmed by repeat testing. The classification and Diagnosis of Diabetes Diabetes Care 2021; 46: S19-S40. Current interpretive data was last revised 2022. Testing performed by: [address] [address] Calcium 9.7 8.5 - 10.3 mg/dL [facility] Comment:Testing performed by : [address] [address] Blood 09/24/2024 3:43 AM CDT 09/24/2024 4:47 AM CDT us Dariela Cortez NP LAB BLOOD ORDERABLES Final R esult [facility] [address] Department [place] [address] * XR Mandible 4 or More Views (09/23/2024 8:29 PM CDT) Anatomical Region Laterality Modality Head and Neck N/A Computed Radiogr aphy 09/23/2024 9:05 PM CDT Narrative 09/23/2024 9:07 PM CDT EXAM DESCRIPTION: XR MANDIBLE 4 OR MORE VIEWS REASON FOR STUDY: post reduction Post TECHNIQUE: 5 radiographic view(s) of the mandible . COMPARISON: 09/23/2024 at 6:45 p.m. Findings/impression: No fracture or dislocation is identified on the current study. Previously dislocated left mandibular head appears to be reduced but is not well seen. THIS IS AN ELECTRONICALLY VERIFIED FINAL REPORT 09/23/2024 9:07 PM - Electronically signed by Arnold GRAHAM: GLADYS Report ID: [id number] Reading Location: [id number] Procedure Note Arnold Chahal MD - 09/23/2024 EXAM DESCRIPTION: XR MANDIBLE 4 OR MORE VIEWS REASON FOR STUDY: post reduction Post TECHNIQUE: 5 radiographic view(s) of the mandible . COMPARISON: 09/23/2024 at 6:45 p.m. Findings/impression: No fracture or dislocation is identified on thecurrent study. Previously dislocated left mandibular head appears to be reducedbut is not well seen. THIS IS AN ELECTRONICALLY VERIFIED FINAL REPORT 09/23/2024 9:07 PM - Electronically signed by Arnold GRAHAM: GLADYS Report ID: [id number] Reading Location: [id number] Darian Goode MD IMG XR PROCEDURES Fi nal Result * TN CLOSED TX STERNOCLAVICULAR DISLC W/MANIPULATION (09/23/2024 7:35 PM CDT) Narrative Samuel Bowen MD - 09/23/2024 7:35 PM CDT Samuel Bowen MD 09/23/2024 7:37 PM Orthopedic Injury Reduction/Treatment - Upper Extremity Date/Time: 09/23/2024 7:35 PM Performed by: Samuel Bowen MD Authorized by: Samuel Bowen MD Informed consent: Unable to obtain due to emergent status Patient's stated name/ matches armband: Patient unable to verbalize - armband matched to name and within medical record Consent form signed, dated, timed; matches correct patient, intended procedure and site: No consent form due to emergent status Imaging: Pertinent imaging reviewed, correctly oriented and match to patient identifiers Location: Sternoclavicular (Mandible) Sternoclavicular location: L clavicle Prosthetic: No Pre-procedure imaging: X-ray Imaging findings: dislocation present Imaging findings: no fracture Distal perfusion: normal Sedation used: no Anesthesia method: None Manipulation performed: yes Reduction successful: yes Reduction confirmed with imaging: yes Neurological function: normal Distal perfusion: normal Range of motion: improved Patient tolerance of procedure: Tolerated well, no immediate complications Samuel Bowen MD IN CLINIC/BEDSIDE O RDERABLES Final Result * XR Mandible 4 or More Views (09/23/2024 6:50 PM CDT) Anatomical Region Laterality Modality Head and Neck N/A Computed Radiogr aphy 09/23/2024 7:18 PM CDT Narrative 09/23/2024 7:22 PM CDT EXAM DESCRIPTION: XR MANDIBLE 4 OR MORE VIEWS REASON FOR STUDY: dislocation Has problems with her joints dislocating. This just happened a couple weeks ago. Mandible dislocated. TECHNIQUE: 4 radiographic view(s) of the mandible . COMPARISON: 10/16/2021 FINDINGS: The left mandibular head appears to be dislocated anteriorly from the mandibular fossa . No fracture is identified. No other dislocation is seen. IMPRESSION: Left mandibular head dislocation similar to findings on the prior study THIS IS AN ELECTRONICALLY VERIFIED FINAL REPORT 09/23/2024 7:22 PM - Electronically signed by Arnold GRAHAM: GLADYS Report ID: [id number] Reading Location: [id number] Procedure Note Arnold Chahal MD - 09/23/2024 EXAM DESCRIPTION: XR MANDIBLE 4 OR MORE VIEWS REASON FOR STUDY: dislocation Has problems with her joints dislocating. This just happened a coupleweeks ago. Mandible dislocated. TECHNIQUE: 4 radiographic view(s) of the mandible . COMPARISON: 10/16/2021 FINDINGS: The left mandibular head appears to be dislocated anteriorlyfrom the mandibular fossa . No fracture is identified. No other dislocationis seen. IMPRESSION: Left mandibular head dislocation similar to findings on theprior study THIS IS AN ELECTRONICALLY VERIFIED FINAL REPORT 09/23/2024 7:22 PM - Electronically signed by Arnold Chahal M.D. KH: GLADYS Report ID: [id number] Reading Location: [id number] us Jorje Huynh MD IMG XR PROCEDURES Final Re sult * XR Chest 1 Vw Portable (if patient condition/safety warrant portable) (09/23/2024 5:00 PM CDT) Anatomical Region Laterality Modality Body, Chest N/A Computed Radiogr aphy 09/23/2024 5:16 PM CDT Narrative 09/23/2024 5:16 PM CDT EXAM DESCRIPTION: XR CHEST 1 VIEW REASON FOR STUDY: Shortness of breath Allergic reaction to something today. Sob from the reaction. Maybe some diff nuts she was eating she said. TECHNIQUE: 1 radiographic view(s) of the chest. COMPARISON: 09/01/2024 FINDINGS: LUNGS: No focal opacity, pleural effusion, or pneumothorax. HEART/MEDIASTINUM: Cardiac silhouette normal in size. Mediastinal and hilar contours appear normal. LINES/TUBES: None. BONES: No acute osseous abnormality. IMPRESSION: No acute cardiopulmonary abnormality. THIS IS AN ELECTRONICALLY VERIFIED FINAL REPORT 09/23/2024 5:16 PM - Electronically signed by López Mcclellan M.D. MM: MM Report ID: [id number] Reading Location: [place] [address] Procedure Note López Mcclellan MD - 09/23/2024 EXAM DESCRIPTION: XR CHEST 1 VIEW REASON FOR STUDY: Shortness of breath Allergic reaction to something today. Sob from the reaction. Maybe somediff nuts she was eating she said. TECHNIQUE: 1 radiographic view(s) of the chest. COMPARISON: 09/01/2024 FINDINGS: LUNGS: No focal opacity, pleural effusion, or pneumothorax. HEART/MEDIASTINUM: Cardiac silhouette normal in size. Mediastinal andhilar contours appear normal. LINES/TUBES: None. BONES: No acute osseous abnormality. IMPRESSION: No acute cardiopulmonary abnormality. THIS IS AN ELECTRONICALLY VERIFIED FINAL REPORT 09/23/2024 5:16 PM - Electronically signed by López Mcclellan M.D. MM: MM Report ID: [id number] Reading Location: [place] [address] Samuel Bowen MD IMG XR PROCEDURES F inal Result * ECG 12 lead (09/23/2024 4:46 PM CDT) Ventricular Rate EKG/Min 146 BPM [facility] Atrial Rate 292 BPM [facility] QRS-Interval (MSEC) 98 ms [facility] QT-Interval (MSEC) 350 ms [facility] QTc 545 ms [facility] R Kathryn 58 degrees [facility] T Kathryn 50 degrees [facility] Diagnosis Sinus tachycardia Incomplete right bundle branch block T-wave changes When compared with ECG of 01-SEP-2024 13:54, No significant change Confirmed by SULTAN ZUNIGA M.D. ([id number]) on 09/23/2024 9:49:04 PM [facility] 09/23/2024 4:46 PM CDT 09/23/2024 9:49 PM CDT us Samuel Bowen MD ECG ORDERABLES Fin al Result [facility] * eGFR (09/23/2024 4:27 PM CDT) eGFR 88 >=60 mL/min/1. 73 m2 Comment: Interpretive Data Reference Interval Normal >/= 90 mL/min/1.73m2 Mildly decreased* 60 - 89 mL/min/1.73m2 Mildly to moderately decreased 45 - 59 mL/min/1.73m2 Moderately to severely decreased 30 - 44 mL/min/1.73m2 Severely decreased 15 - 29 mL/min/1.73m2 Kidney Failure < 15 mL/min/1.73m2 *Relative to young adult level Estimated glomerular filtration rate is determined by the 2020 CKD-EPI equation recommended by the National Kidney Foundation (A Unifying Approach to GFR Estimation: Recommendations of the NKF-ASK Task Force on Reassessing the Inclusion of Race in Diagnosing Kidney Disease, JASN 2020). The CKD-EPI equation should not be used for patients with unstable renal function and has not been validated in children and those over 70. Current interpretive data was last reviewed 2021. Testing performed by: [address] [address] Blood 09/23/2024 4:27 PM CDT 09/23/2024 4:39 PM CDT us Deisy MARQUEZ LAB BLOOD ORDERABLES Final Resu lt [facility] [address] [facility] Department [place] [address] * (ABNORMAL) Differential, auto (09/23/2024 4:27 PM CDT) Neutrophil abs 7.2(H) 1.5 - 6.5 K/cumm Comment:Testing performed by : [address] [address] Imm gran abs 0.0 0.0 - 0.1 K/cumm [facility] Comment:Testing performed by : [address] [address] Lymphocyte abs 2.4 0.8 - 3.3 K/cumm [facility] Comment:Testing performed by : [address] [address] Monocyte abs 0.8 0.2 - 0.8 K/cumm [facility] Comment:Testing performed by : [address] [address] Eosinophil abs 0.1 0.0 - 0.5 K/cumm [facility] Comment:Testing performed by : [address] [address] Basophil abs 0.1 0.0 - 0.1 K/cumm [facility] Comment:Testing performed by : [address] [address] Neutrophil pct 68.6 % [facility] Comment: Interpretive Data Percent cell count reference ranges are not reported, since discordance with absolute values may lead to misinterpretation of CBC data. Current Interpretive Data was last revised on 2017. Testing performed by: [address] [address] Imm gran pct 0.4 % [facility] Comment: Interpretive Data Percent cell count reference ranges are not reported, since discordance with absolute values may lead to misinterpretation of CBC data. Current Interpretive Data was last revised on 2017. Testing performed by: [address] [address] Lymphocyte pct 22.5 % [facility] Comment: Interpretive Data Percent cell count reference ranges are not reported, since discordance with absolute values may lead to misinterpretation of CBC data. Current Interpretive Data was last revised on 2017. Testing performed by: [address] [address] Monocyte pct 7.1 % [facility] Comment: Interpretive Data Percent cell count reference ranges are not reported, since discordance with absolute values may lead to misinterpretation of CBC data. Current Interpretive Data was last revised on 2017. Testing performed by: [address] [address] Eosinophil pct 0.7 % [facility] Comment: Interpretive Data Percent cell count reference ranges are not reported, since discordance with absolute values may lead to misinterpretation of CBC data. Current Interpretive Data was last revised on 2017. Testing performed by: [address] [address] Basophil pct 0.7 % [facility] Comment: Interpretive Data Percent cell count reference ranges are not reported, since discordance with absolute values may lead to misinterpretation of CBC data. Current Interpretive Data was last revised on 2017. Testing performed by: [address] [address] Blood 09/23/2024 4:27 PM CDT 09/23/2024 4:39 PM CDT us Samuel Bowen MD LAB BLOOD ORDERABLE S Final Result [facility] Department of Laboratories [place], [place] [id number] * (ABNORMAL) CBC with auto differential (09/23/2024 4:27 PM CDT) WBC 10.5(H) 3.8 - 9.9 K/cumm Comment:Testing performed by : [address] [address] Hgb 11.9 11.9 - 15.5 g/dL [facility] Comment:Testing performed by : [address] [address] Hct 40.4 35.6 - 45.5 % [facility] Comment:Testing performed by : [address] [address] Plt 517(H) 150 - 400 K/cumm [facility] Comment:Testing performed by : [address] [address] MPV 9.3 9.1 - 12.3 fL [facility] Comment:Testing performed by : [address] [address] RBC 4.93 3.90 - 5.20 M/cumm [facility] Comment:Testing performed by : [address] [address] MCV 81.9 81.3 - 96.4 fL [facility] Comment:Testing performed by : [address] [address] MCH 24.1(L) 27.1 - 33.3 pg [facility] Comment:Testing performed by : [address] [address] MCHC 29.5(L) 32.3 - 35.7 g/dL [facility] Comment:Testing performed by : [address] [address] RDW CV 15.6(H) 11.1 - 14.9 % [facility] Comment:Testing performed by : [address] [address] RDW SD 46.5 35.7 - 48.1 fL [facility] Comment:Testing performed by : [address] [address] NRBC abs 0.00 0.00 - 0.01 K/cumm [facility] Comment:Testing performed by : [address] [address] Blood 09/23/2024 4:27 PM CDT 09/23/2024 4:39 PM CDT us Samuel Bowen MD LAB BLOOD ORDERABLE S Final Result [facility] Department [place] [address] * Comprehensive metabolic panel (09/23/2024 4:27 PM CDT) Pathologist [facility] Sodium 141 135 - 145 mmol/L Comment:Testing performed by : [address] [address] Potassium, pl 3.3 3.3 - 4.9 mmol/L [facility] Comment:Testing performed by : [address] [address] Chloride 104 97 - 110 mmol/L [facility] Comment:Testing performed by : [address], [place]., [address] CO2 22 22 - 32 mmol/L [facility] Comment:Testing performed by : [address], [place]., [address] Anion gap 15 2 - 15 mmol/L [facility] Comment:Testing performed by : [address], [place]., [address] BUN 11 6 - 25 mg/dL [facility] Comment:Testing performed by : [address], [place]., [address] Creatinine 0.89 0.60 - 1.10 mg/dL [facility] Comment:Testing performed by : [address] [address] Glucose 153 70 - 199 mg/dL [facility] Comment: Interpretive Data Fasting glucose >/= 126 mg/dl is diagnostic for diabetes. Fasting is defined as no caloric intake for at least 8 hours. Fasting glucose between 100 mg/dl to 125 mg/dl is diagnostic of prediabetes. In a patient with classic symptoms of hyperglycemia or hyperglycemic crisis, a random glucose >/= 200 mg/dl is diagnostic for diabetes. In the absence of unequivocal hyperglycemia, results should be confirmed by repeat testing. The classification and Diagnosis of Diabetes Diabetes Care 202; 46: S19-S40. Current interpretive data was last revised 2022. Testing performed by: [address] [address] Calcium 9.9 8.5 - 10.3 mg/dL [facility] Comment:Testing performed by : [address] [address] Bilirubin, total <0.2 0.1 - 1.2 mg/dL [facility] Comment:Testing performed by : [address], [place]., [address] Protein, pl 8.0 6.5 - 8.5 g/dL [facility] Comment:Testing performed by : [address] [place] [address] Albumin 4.6 3.5 - 5.0 g/dL [facility] Comment:Testing performed by : [address] [address] Alk phos 84 40 - 130 Units/L [facility] Comment:Testing performed by : [address] [address] ALT 42 7 - 45 Units/L [facility] Comment:Testing performed by : [address] [address] AST 27 10 - 45 Units/L [facility] Comment:Testing performed by : [address] [address] Blood 09/23/2024 4:27 PM CDT 09/23/2024 4:39 PM CDT us Samuel Bowen MD LAB BLOOD ORDERABLE S Final Result [facility] [place] [address] [facility] Department [place] [address] * (ABNORMAL) CBC without differential (09/05/2024 4:27 AM SEWER CLEANER) WBC 14.9(H) 3.8 - 9.9 K/cumm Comment:Testing performed by : [address] [address] Hgb 10.8(L) 11.9 - 15.5 g/dL [facility] Comment:Testing performed by : [address] [address] Hct 35.6 35.6 - 45.5 % [facility] Comment:Testing performed by : [address] [address] Plt 414(H) 150 - 400 K/cumm [facility] Comment:Testing performed by : [address] [address] MPV 9.4 9.1 - 12.3 fL [facility] Comment:Testing performed by : [address] [address] RBC 4.35 3.90 - 5.20 M/cumm [facility] Comment:Testing performed by : [address] [address] MCV 81.8 81.3 - 96.4 fL [facility] Comment:Testing performed by : [address] [address] MCH 24.8(L) 27.1 - 33.3 pg [facility] Comment:Testing performed by : [address] [address] MCHC 30.3(L) 32.3 - 35.7 g/dL [facility] Comment:Testing performed by : [address], [address] RDW CV 15.4(H) 11.1 - 14.9 % [facility] Comment:Testing performed by : [address], [address] RDW SD 46.2 35.7 - 48.1 fL [facility] Comment:Testing performed by : [address], [address] NRBC abs 0.00 0.00 - 0.01 K/cumm [facility] Comment:Testing performed by : [address] [address] Blood 09/05/2024 4:27 AM SEWER CLEANER 09/05/2024 5:03 AM SEWER CLEANER us Venkat Rudd MD LAB BLOOD ORDERABLES Fi nal Result [facility] 9186 [facility] Department [place] [address] * (ABNORMAL) CBC without differential (09/04/2024 4:25 AM SEWER CLEANER) [facility] WBC 14.5(H) 3.8 - 9.9 K/cumm Comment:Testing performed by : [address], [address] Hgb 10.5(L) 11.9 - 15.5 g/dL [facility] Comment:Testing performed by : [address] [address] Hct 35.4(L) 35.6 - 45.5 % [facility] Comment:Testing performed by : [address] [address] Plt 392 150 - 400 K/cumm [facility] Comment:Testing performed by : [address] [address] MPV 9.2 9.1 - 12.3 fL [facility] Comment:Testing performed by : [address] [address] RBC 4.27 3.90 - 5.20 M/cumm [facility] Comment:Testing performed by : [address] [address] MCV 82.9 81.3 - 96.4 fL [facility] Comment:Testing performed by : [address] [address] MCH 24.6(L) 27.1 - 33.3 pg [facility] Comment:Testing performed by : [address] [address] MCHC 29.7(L) 32.3 - 35.7 g/dL [facility] Comment:Testing performed by : [address] [address] RDW CV 15.6(H) 11.1 - 14.9 % [facility] Comment:Testing performed by : [address], [address] RDW SD 47.6 35.7 - 48.1 fL [facility] Comment:Testing performed by : [address] [address] NRBC abs 0.00 0.00 - 0.01 K/cumm [facility] Comment:Testing performed by : [address] [address] Blood 09/04/2024 4:25 AM SEWER CLEANER 09/04/2024 4:41 AM SEWER CLEANER Venkat Rudd MD LAB BLOOD ORDERABLES Fi nal Result Performing Organization Address [facility] Co de Phone Number [facility] [address] [place] [address] * Troponin T high-sensitivity 2-hour (09/01/2024 5:11 PM SEWER CLEANER) Trop T hs <6 <=14 ng/L Comment: Interpretive Data For further hscTnT resources including the diagnostic algorithm and an aid in interpretation, copy and paste this link: https://nrl.testcatalog.org/show/hsTrop Current Interpretive Data last revised 2020. Testing performed by: [address] [address] Trop T hs delta 0 ng/L [facility] Comment:Testing performed by : [address] [address] Trop T hs interp Insignificant [facility] Comment:Testing performed by : [address] [address] Blood 09/01/2024 5:11 PM SEWER CLEANER 09/01/2024 5:14 PM SEWER CLEANER Wil Monteiro MD LAB BLOOD ORDERABLE S Final Result Performing Organization Address [facility] de Phone Number [facility] [address] [facility] [place] [address] * Urinalysis reflex to microscopic and culture Urine (09/01/2024 4:58 PM SEWER CLEANER) Color, ur Yellow Yellow Comment:Testing performed by : [address] [address] Clarity, ur Clear Clear [facility] Comment:Testing performed by : [address] [address] Specific gravity, ur 1.015 1.003 - 1.030 [facility] Comment:Testing performed by : [address] [address] pH, urine 7.0 [facility] Comment: Interpretive Data U rine pH is affected by diet, medications, systemic acid-base disturbances, and renal tubular function. pH may affect urinary stone formation. For example, urine pH below 6.0 may help reduce the tendency for calcium phosphate stones and pH greater than 6.0 may reduce the tendency for uric acid stone formation. Source: [facility] Current Interpretive Data was last revised on 2017 Testing performed by: [facility], [address] [place] [address], [place]., [address] Protein, ur ql Negative Negative [facility] Comment:Testing performed by : [facility], [address] [place] [address], [place]., [address] Glucose, ur ql Negative Negative [facility] Comment:Testing performed by : [address], [place]., [address] Ketones, ur Negative Negative [facility] Comment:Testing performed by : [address], [place]., [address] Bilirubin, ur Negative Negative [facility] Comment:Testing performed by : [address], [place]., [address] Blood, ur Negative Negative [facility] Comment:Testing performed by : [address], [place]., [address] Urobilinogen, ur <2.0 <2.0 mg/dL [facility] Comment:Testing performed by : [address], [place]., [address] Nitrite, ur Negative Negative [facility] Comment:Testing performed by : [address], [place]., [address] Leukocyte esterase, ur Negative Negative [facility] Comment:Testing performed by : [address], [place]., [address] UA reflex comment Reflex conditions for microscopic UA and culture not met. [facility] Comment:Testing performed by : [address], [place]., [address] Urine 09/01/2024 4:58 PM SEWER CLEANER 09/01/2024 4:59 PM SEWER CLEANER us Wil Monteiro MD LAB MICROBIOLOGY - GENERAL ORDERABLES Final Result [facility] [address] [facility] Department [place] [address] * XR Chest 1 Vw Portable (09/01/2024 3:05 PM SEWER CLEANER) Anatomical Region Laterality Modality Body, Chest N/A Computed Radiogr aphy 09/01/2024 3:19 PM SEWER CLEANER Narrative 09/01/2024 3:22 PM SEWER CLEANER EXAM DESCRIPTION: XR CHEST 1 VIEW REASON FOR STUDY: allergic reaction Came to ED s/p anaphylactic reaction. Reports ate at [employer] broke out in hives and started having tongue and throat swelling. Used Epi pen at 1315. Took Famotidine 20 mg and Zantac 20 mg 30 mins ago. Upon arrival in Triage is reporting improvement since use of Epi pen TECHNIQUE: 1 radiographic view(s) of the chest. COMPARISON: 10/10/2022 FINDINGS: LUNGS: No pneumonic consolidation or pulmonary edema. Minimal linear scarring or atelectasis at the left lung base. No pleural effusion or pneumothorax is seen. HEART/MEDIASTINUM: Normal heart size and cardiomediastinal contours. LINES/TUBES: None. BONES: No acute displaced fracture or aggressive bone lesion is seen. The visualized upper abdomen is grossly unremarkable. IMPRESSION: No acute cardiopulmonary findings. THIS IS AN ELECTRONICALLY VERIFIED FINAL REPORT 09/01/2024 3:22 PM - Electronically signed by Robi Arreola M.D. MZ: MZ Report ID: [id number] Reading Location: [id number] Procedure Note Robi Arreola MD - 09/01/2024 EXAM DESCRIPTION: XR CHEST 1 VIEW REASON FOR STUDY: allergic reaction Came to ED s/p anaphylactic reaction. Reports ate at [employer] broke outin hives and started having tongue and throat swelling. Used Epi pen at 1315. Took Famotidine 20 mg and Zantac 20 mg 30 mins ago. Upon arrival in Triageis reporting improvement since use of Epi pen TECHNIQUE: 1 radiographic view(s) of the chest. COMPARISON: 10/10/2022 FINDINGS: LUNGS: No pneumonic consolidation or pulmonary edema. Minimal linear scarring or atelectasis at the left lung base. No pleural effusionor pneumothorax is seen. HEART/MEDIASTINUM: Normal heart size and cardiomediastinal contours. LINES/TUBES: None. BONES: No acute displaced fracture or aggressive bone lesion is seen. The visualized upper abdomen is grossly unremarkable. IMPRESSION: No acute cardiopulmonary findings. THIS IS AN ELECTRONICALLY VERIFIED FINAL REPORT 09/01/2024 3:22 PM - Electronically signed by Robi Arreola M.D. MZ: MZ Report ID: [id number] Reading Location: [place] [address] us Wil Monteiro MD IMG XR PROCEDURES F inal Result * Troponin T high-sensitivity series (baseline, 2hr, 4hr, 6hr) (09/01/2024 2:59 PM SEWER CLEANER) Pathologist [facility] Trop T hs <6 <=14 ng/L Comment: Interpretive Data For further hscTnT resources including the diagnostic algorithm and an aid in interpretation, copy and paste this link: https://nrl.testcatalog.org/show/hsTrop Current Interpretive Data last revised 2020. Testing performed by: [facility], [address] [place] [address]., [address] Blood 09/01/2024 2:59 PM SEWER CLEANER 09/01/2024 3:03 PM SEWER CLEANER us Wil Monteiro MD LAB BLOOD ORDERABLE S Final Result [facility] [address] [facility] Department [place] [address] * eGFR (09/01/2024 2:59 PM SEWER CLEANER) Pathologist [facility] eGFR >90 >=60 mL/min/1. 73 m2 Comment: Interpretive Data Reference Interval Normal >/= 90 mL/min/1.73m2 Mildly decreased* 60 - 89 mL/min/1.73m2 Mildly to moderately decreased 45 - 59 mL/min/1.73m2 Moderately to severely decreased 30 - 44 mL/min/1.73m2 Severely decreased 15 - 29 mL/min/1.73m2 Kidney Failure < 15 mL/min/1.73m2 *Relative to young adult level Estimated glomerular filtration rate is determined by the 2020 CKD-EPI equation recommended by the National Kidney Foundation (A Unifying Approach to GFR Estimation: Recommendations of the NKF-ASK Task Force on Reassessing the Inclusion of Race in Diagnosing Kidney Disease, JASN 202). The CKD-EPI equation should not be used for patients with unstable renal function and has not been validated in children and those over 70. Current interpretive data was last reviewed 2021. Testing performed by: [address] [address] Blood 09/01/2024 2:59 PM SEWER CLEANER 09/01/2024 3:03 PM SEWER CLEANER Wil Monteiro MD LAB BLOOD ORDERABLE S Final Result [place] [address] [facility] Department of Laboratories [place], [place] [id number] * (ABNORMAL) Differential, auto (09/01/2024 2:59 PM SEWER CLEANER) Neutrophil abs 14.4(H) 1.5 - 6.5 K/cumm Comment:Testing performed by : [address] [address] Imm gran abs 0.2(H) 0.0 - 0.1 K/cumm [facility] Comment:Testing performed by : [address] [address] Lymphocyte abs 1.4 0.8 - 3.3 K/cumm [facility] Comment:Testing performed by : [address] [address] Monocyte abs 0.4 0.2 - 0.8 K/cumm [facility] Comment:Testing performed by : [address] [address] Eosinophil abs 0.0 0.0 - 0.5 K/cumm [facility] Comment:Testing performed by : [address] [address] Basophil abs 0.1 0.0 - 0.1 K/cumm [facility] Comment:Testing performed by : [address] [address] Neutrophil pct 87.3 % [facility] Comment: Interpretive Data Percent cell count reference ranges are not reported, since discordance with absolute values may lead to misinterpretation of CBC data. Current Interpretive Data was last revised on 2017. Testing performed by: [address] [address] Imm gran pct 0.9 % [facility] Comment: Interpretive Data Percent cell count reference ranges are not reported, since discordance with absolute values may lead to misinterpretation of CBC data. Current Interpretive Data was last revised on 2017. Testing performed by: [address] [address] Lymphocyte pct 8.7 % [facility] Comment: Interpretive Data Percent cell count reference ranges are not reported, since discordance with absolute values may lead to misinterpretation of CBC data. Current Interpretive Data was last revised on 2017. Testing performed by: [address] [address] Monocyte pct 2.7 % [facility] Comment: Interpretive Data Percent cell count reference ranges are not reported, since discordance with absolute values may lead to misinterpretation of CBC data. Current Interpretive Data was last revised on 2017. Testing performed by: [address] [address] Eosinophil pct 0.1 % [facility] Comment: Interpretive Data Percent cell count reference ranges are not reported, since discordance with absolute values may lead to misinterpretation of CBC data. Current Interpretive Data was last revised on 2017. Testing performed by: [address] [address] Basophil pct 0.3 % [facility] Comment: Interpretive Data Percent cell count reference ranges are not reported, since discordance with absolute values may lead to misinterpretation of CBC data. Current Interpretive Data was last revised on 2017. Testing performed by: [address] [address] Blood 09/01/2024 2:59 PM SEWER CLEANER 09/01/2024 3:03 PM SEWER CLEANER Wil Monteiro MD LAB BLOOD ORDERABLE S Final Result Performing Organization Address [facility] Co de Phone Number [address] [place] [address] * Thyroid Function [place] (09/01/2024 2:59 PM SEWER CLEANER) TSH 0.80 0.30 - 4.20 mcIUnit/mL Comment:Testing performed by : [address] [address] Blood 09/01/2024 2:59 PM SEWER CLEANER 09/01/2024 3:03 PM SEWER CLEANER Wil Monteiro MD LAB BLOOD ORDERABLE S Final Result Performing Organization Address [facility] de Phone Number [address] [address] * (ABNORMAL) CBC with auto differential (09/01/2024 2:59 PM SEWER CLEANER) WBC 16.5(H) 3.8 - 9.9 K/cumm Comment:Testing performed by : [address] [address] Hgb 11.3(L) 11.9 - 15.5 g/dL [facility] Comment:Testing performed by : [address] [address] Hct 36.4 35.6 - 45.5 % [facility] Comment:Testing performed by : [address] [address] Plt 465(H) 150 - 400 K/cumm [facility] Comment:Testing performed by : [address] [address] MPV 9.0(L) 9.1 - 12.3 fL [facility] Comment:Testing performed by : [address] [address] RBC 4.54 3.90 - 5.20 M/cumm [facility] Comment:Testing performed by : [address] [address] MCV 80.2(L) 81.3 - 96.4 fL [facility] Comment:Testing performed by : [address] [address] MCH 24.9(L) 27.1 - 33.3 pg [facility] Comment:Testing performed by : [address] [address] MCHC 31.0(L) 32.3 - 35.7 g/dL [facility] Comment:Testing performed by : [address] [address] [address] RDW CV 15.1(H) 11.1 - 14.9 % TAWNYA Comment:Testing performed by : [address] [address] RDW SD 44.1 35.7 - 48.1 fL TAWNYA Comment:Testing performed by : [address] [address] NRBC abs 0.00 0.00 - 0.01 K/cumm TAWNYA Comment:Testing performed by : [address] [address] Blood 09/01/2024 2:59 PM SEWER CLEANER 09/01/2024 3:03 PM SEWER CLEANER us Wil Monteiro MD LAB BLOOD ORDERABLE S Final Result TAWNYA 6999 [facility] Department of Laboratories [place], [place] [id number] * Magnesium (09/01/2024 2:59 PM SEWER CLEANER) [facility] Magnesium 2.0 1.4 - 2.5 mg/dL Comment:Testing performed by : [address] [address] Blood 09/01/2024 2:59 PM SEWER CLEANER 09/01/2024 3:03 PM SEWER CLEANER us Wil Monteiro MD LAB BLOOD ORDERABLE S Final Result [facility] 4500 [facility] Department [place] [address] * Basic metabolic panel (09/01/2024 2:59 PM SEWER CLEANER) Sodium 140 135 - 145 mmol/L Comment:Testing performed by : [address] [address] Potassium, pl 4.0 3.3 - 4.9 mmol/L TAWNYA Comment:Testing performed by : [address] [address] Chloride 103 97 - 110 mmol/L TAWNYA Comment:Testing performed by : [address] [address] CO2 23 22 - 32 mmol/L TAWNYA Comment:Testing performed by : [address] [address] Anion gap 14 2 - 15 mmol/L TAWNYA Comment:Testing performed by : [address] [address] BUN 17 6 - 25 mg/dL TAWNYA Comment:Testing performed by : [address] [address] Creatinine 0.68 0.60 - 1.10 mg/dL TAWNYA Comment:Testing performed by : [address] [address] Glucose 147 70 - 199 mg/dL TAWNYA Comment: Interpretive Data Fasting glucose >/= 126 mg/dl is diagnostic for diabetes. Fasting is defined as no caloric intake for at least 8 hours. Fasting glucose between 100 mg/dl to 125 mg/dl is diagnostic of prediabetes. In a patient with classic symptoms of hyperglycemia or hyperglycemic crisis, a random glucose >/= 200 mg/dl is diagnostic for diabetes. In the absence of unequivocal hyperglycemia, results should be confirmed by repeat testing. The classification and Diagnosis of Diabetes Diabetes Care 2021; 46: S19-S40. Current interpretive data was last revised 2022. Testing performed by: [facility], [address] [place] [address]., [address] Calcium 9.3 8.5 - 10.3 mg/dL TAWNYA MILLS Comment:Testing performed by : [address] [address] Blood 09/01/2024 2:59 PM SEWER CLEANER 09/01/2024 3:03 PM SEWER CLEANER Wil Monteiro MD LAB BLOOD ORDERABLE S Final Result TAWNYA MILLS 0548 [facility] Department [place] [address] * POCT hCG, urine (09/01/2024 2:28 PM SEWER CLEANER) [facility] HCG, ur, POC Negative Negative Lot Number [id number] QC Backgroud Clear Acceptable QC Control Line Acceptable Urine 09/01/2024 2:28 PM SEWER CLEANER Wil Monteiro MD POINT OF CARE TEST ORDERABLES Final Result * ECG 12 lead (09/01/2024 1:54 PM SEWER CLEANER) Pathologist [facility] Ventricular Rate EKG/Min 153 BPM [facility] Atrial Rate 153 BPM [facility] TN-Interval (MSEC) 116 ms [facility] QRS-Interval (MSEC) 88 ms [facility] QT-Interval (MSEC) 328 ms [facility] QTc 523 ms [facility] P Kathryn 57 degrees [facility] R Kathryn 67 degrees [facility] T Kathryn 44 degrees [facility] Diagnosis Sinus tachycardia Otherwise normal ECG When compared with ECG of 20-AUG-2024 02:26, T wave inversion no longer evident in Anterior leads Confirmed by LAWRENCE YIP M.D. ([id number]) on 09/02/2024 9:10:53 AM [facility] 09/01/2024 1:54 PM SEWER CLEANER 09/02/2024 9:10 AM SEWER CLEANER us Wil Monteiro MD ECG ORDERABLES Fin al Result Performing Organization Address [facility]/ZIP Co de Phone Number [facility] * eGFR (08/22/2024 7:57 AM SEWER CLEANER) eGFR >90 >=60 mL/min/1. 73 m2 Comment: Interpretive Data Reference Interval Normal >/= 90 mL/min/1.73m2 Mildly decreased* 60 - 89 mL/min/1.73m2 Mildly to moderately decreased 45 - 59 mL/min/1.73m2 Moderately to severely decreased 30 - 44 mL/min/1.73m2 Severely decreased 15 - 29 mL/min/1.73m2 Kidney Failure < 15 mL/min/1.73m2 *Relative to young adult level Estimated glomerular filtration rate is determined by the 2020 CKD-EPI equation recommended by the National Kidney Foundation (A Unifying Approach to GFR Estimation: Recommendations of the NKF-ASK Task Force on Reassessing the Inclusion of Race in Diagnosing Kidney Disease, JASN 2020). The CKD-EPI equation should not be used for patients with unstable renal function and has not been validated in children and those over 70. Current interpretive data was last reviewed 2021. Testing performed by: [facility], [address] [place] [address]., [address] Blood 08/22/2024 7:57 AM SEWER CLEANER 08/22/2024 8:11 AM SEWER CLEANER us José Luis Tripp MD LAB BLOOD ORDERABLES Final Re sult TAWNYA 9635 [facility] Department [place] [address] * (ABNORMAL) CBC without differential (08/22/2024 7:57 AM SEWER CLEANER) WBC 11.8(H) 3.8 - 9.9 K/cumm Comment:Testing performed by : [address] [address] Hgb 10.4(L) 11.9 - 15.5 g/dL TAWNYA Comment:Testing performed by : [address] [address] Hct 33.4(L) 35.6 - 45.5 % TAWNYA Comment:Testing performed by : [address] [address] Plt 450(H) 150 - 400 K/cumm TAWNYA Comment:Testing performed by : [address] [address] MPV 9.0(L) 9.1 - 12.3 fL TAWNYA Comment:Testing performed by : [address], [address] RBC 4.12 3.90 - 5.20 M/cumm TAWNYA Comment:Testing performed by : [address] [address] MCV 81.1(L) 81.3 - 96.4 fL CERBAILEY Comment:Testing performed by : [address] [address] MCH 25.2(L) 27.1 - 33.3 pg CERBAILEY Comment:Testing performed by : [address] [address] MCHC 31.1(L) 32.3 - 35.7 g/dL TAWNYA Comment:Testing performed by : [address] [address] RDW CV 15.5(H) 11.1 - 14.9 % TAWNYA Comment:Testing performed by : [address] [address] RDW SD 45.6 35.7 - 48.1 fL CERBAILEY Comment:Testing performed by : [address] [address] NRBC abs 0.00 0.00 - 0.01 K/cumm TAWNYA Comment:Testing performed by : [address], [address] Blood 08/22/2024 7:57 AM SEWER CLEANER 08/22/2024 8:11 AM SEWER CLEANER us Jorje Huynh MD LAB BLOOD ORDERABLES Final Result TAWNYA 4500 [facility] Department [place] [address] * Basic metabolic panel (08/22/2024 7:57 AM SEWER CLEANER) Sodium 137 135 - 145 mmol/L Comment:Testing performed by : [address] [address] Potassium, pl 3.7 3.3 - 4.9 mmol/L TAWNYA Comment:Testing performed by : [address] [address] Chloride 103 97 - 110 mmol/L TAWNYA Comment:Testing performed by : [address] [address] CO2 23 22 - 32 mmol/L TAWNYA Comment:Testing performed by : [address] [address] Anion gap 11 2 - 15 mmol/L TAWNYA Comment:Testing performed by : [address] [address] BUN 16 6 - 25 mg/dL TAWNYA Comment:Testing performed by : [address] [address] Creatinine 0.71 0.60 - 1.10 mg/dL TAWNYA Comment:Testing performed by : [address] [address] Glucose 102 70 - 199 mg/dL TAWNYA Comment: Interpretive Data Fasting glucose >/= 126 mg/dl is diagnostic for diabetes. Fasting is defined as no caloric intake for at least 8 hours. Fasting glucose between 100 mg/dl to 125 mg/dl is diagnostic of prediabetes. In a patient with classic symptoms of hyperglycemia or hyperglycemic crisis, a random glucose >/= 200 mg/dl is diagnostic for diabetes. In the absence of unequivocal hyperglycemia, results should be confirmed by repeat testing. The classification and Diagnosis of Diabetes Diabetes Care 2021; 46: S19-S40. Current interpretive data was last revised 2022. Testing performed by: [facility], [address] [place] [address]., [address] Calcium 9.0 8.5 - 10.3 mg/dL TAWNYA MILLS Comment:Testing performed by : [address] [address] Blood 08/22/2024 7:57 AM SEWER CLEANER 08/22/2024 8:11 AM SEWER CLEANER us José Luis Tripp MD LAB BLOOD ORDERABLES Final Re sult TAWNYA MILLS 7427 [facility] Department [place] [address] * eGFR (08/21/2024 7:53 AM SEWER CLEANER) eGFR >90 >=60 mL/min/1. 73 m2 Comment: Interpretive Data Reference Interval Normal >/= 90 mL/min/1.73m2 Mildly decreased* 60 - 89 mL/min/1.73m2 Mildly to moderately decreased 45 - 59 mL/min/1.73m2 Moderately to severely decreased 30 - 44 mL/min/1.73m2 Severely decreased 15 - 29 mL/min/1.73m2 Kidney Failure < 15 mL/min/1.73m2 *Relative to young adult level Estimated glomerular filtration rate is determined by the 2020 CKD-EPI equation recommended by the National Kidney Foundation (A Unifying Approach to GFR Estimation: Recommendations of the NKF-ASK Task Force on Reassessing the Inclusion of Race in Diagnosing Kidney Disease, JASN 2020). The CKD-EPI equation should not be used for patients with unstable renal function and has not been validated in children and those over 70. Current interpretive data was last reviewed 2021. Testing performed by: [address] [address] Blood 08/21/2024 7:53 AM SEWER CLEANER 08/21/2024 8:14 AM SEWER CLEANER us José Luis Tripp MD LAB BLOOD ORDERABLES Final Re sult [facility] 5150 [facility] Department [place] [address] * (ABNORMAL) CBC without differential (08/21/2024 7:53 AM SEWER CLEANER) WBC 11.9(H) 3.8 - 9.9 K/cumm Comment:Testing performed by : [address] [address] Hgb 11.2(L) 11.9 - 15.5 g/dL TAWNYA Comment:Testing performed by : [address], [address] Hct 35.2(L) 35.6 - 45.5 % TAWNYA Comment:Testing performed by : [address] [address] Plt 481(H) 150 - 400 K/cumm TAWNYA Comment:Testing performed by : [address] [address] MPV 9.0(L) 9.1 - 12.3 fL TAWNYA Comment:Testing performed by : [address] [address] RBC 4.41 3.90 - 5.20 M/cumm TAWNYA Comment:Testing performed by : [address] [address] MCV 79.8(L) 81.3 - 96.4 fL TAWNYA Comment:Testing performed by : [address] [address] MCH 25.4(L) 27.1 - 33.3 pg TAWNYA Comment:Testing performed by : [address] [address] MCHC 31.8(L) 32.3 - 35.7 g/dL TAWNYA Comment:Testing performed by : [address], [address] RDW CV 15.6(H) 11.1 - 14.9 % TAWNYA Comment:Testing performed by : [address] [address] RDW SD 44.8 35.7 - 48.1 fL TAWNYA MILLS Comment:Testing performed by : [address] [address] NRBC abs 0.00 0.00 - 0.01 K/cumm TAWNYA MILLS Comment:Testing performed by : [address] [address] Blood 08/21/2024 7:53 AM SEWER CLEANER 08/21/2024 8:15 AM SEWER CLEANER us Jorje Huynh MD LAB BLOOD ORDERABLES Final Result TAWNYA MILLS 4500 [facility] Department [place] [address] * Basic metabolic panel (08/21/2024 7:53 AM SEWER CLEANER) Sodium 139 135 - 145 mmol/L Comment:Testing performed by : [address] [address] Potassium, pl 3.5 3.3 - 4.9 mmol/L TAWNYA MILLS Comment:Testing performed by : [address] [address] Chloride 102 97 - 110 mmol/L TAWNYA Comment:Testing performed by : [address] [address] CO2 23 22 - 32 mmol/L TAWNYA MILLS Comment:Testing performed by : [address] [address] Anion gap 14 2 - 15 mmol/L TAWNYA MILLS Comment:Testing performed by : [address] [address] BUN 11 6 - 25 mg/dL TAWNYA MILLS Comment:Testing performed by : [address] [address] Creatinine 0.70 0.60 - 1.10 mg/dL TAWNYA MILLS Comment:Testing performed by : [address] [address] Glucose 91 70 - 199 mg/dL TAWNYA MILLS Comment: Interpretive Data Fasting glucose >/= 126 mg/dl is diagnostic for diabetes. Fasting is defined as no caloric intake for at least 8 hours. Fasting glucose between 100 mg/dl to 125 mg/dl is diagnostic of prediabetes. In a patient with classic symptoms of hyperglycemia or hyperglycemic crisis, a random glucose >/= 200 mg/dl is diagnostic for diabetes. In the absence of unequivocal hyperglycemia, results should be confirmed by repeat testing. The classification and Diagnosis of Diabetes Diabetes Care 202; 46: S19-S40. Current interpretive data was last revised 2022. Testing performed by: [facility], [address] [place] [address]., [address] Calcium 9.4 8.5 - 10.3 mg/dL TAWNYA Comment:Testing performed by : [facility], [address] [place] [address]., [address] Blood 08/21/2024 7:53 AM SEWER CLEANER 08/21/2024 8:14 AM SEWER CLEANER us José Luis Tripp MD LAB BLOOD ORDERABLES Final Re sult [facility] 6706 [facility] Department [place] [address] * TN CLOSED TX TEMPOROMANDIBULAR DISLOCATION 1ST/SBSQ (08/20/2024 1:18 PM SEWER CLEANER) Narrative Abhay Velez MD - 08/20/2024 1:18 PM SEWER CLEANER Abhay Velez MD 08/20/2024 1:33 PM Orthopedic Injury Treatment - Jaw Dislocation Date/Time: 08/20/2024 1:18 PM Performed by: Abhay Velez MD Authorized by: Abhay Velez MD RN Notified of Procedure: yes Informed consent: Risks, benefits, alternatives discussed and patient/premium service representative/guardian agrees and accepts Patient's stated name/ matches armband: Yes Allergies confirmed: yes Consent form signed, dated, timed; matches correct patient, intended procedure and site: Yes Imaging: Pertinent imaging reviewed, correctly oriented and match to patient identifiers Injury location: L TMJ Sedation used: yes Jaw reduction method: Downward posterior pressure Reduction successful: yes Range of motion: normal Patient tolerance of procedure: Tolerated well, no immediate complications Abhay Velez MD IN CLINIC/BEDSIDE ORDERABLES Fi nal Result * Procedural Sedation (08/20/2024 1:18 PM SEWER CLEANER) Narrative Abhay Velez MD - 08/20/2024 1:18 PM SEWER CLEANER Abhay Velez MD 08/20/2024 1:32 PM Procedural Sedation Date/Time: 08/20/2024 1:18 PM Performed by: Abhay Velez MD Authorized by: Abhay Velez MD [place] Protocol: RN Notified of Procedure: yes Informed consent: Risks, benefits, alternatives discussed and patient/premium service representative/guardian agrees and accepts Patient's stated name/ matches armband: Yes Consent form signed, dated, timed; matches correct patient, intended procedure and site: Yes Imaging: Pertinent imaging reviewed, correctly oriented and match to patient identifiers Supplies, devices and special equipment are available: yes Immediately prior to the procedure a time out was called: a verbal verification by the procedure participants confirmed correct patient identity, correct site/side marked and visible (if applicable); agreement on procedure to be done; and correct patient positioning Indications: Sedation purpose: Fracture reduction Procedure requiring sedation performed by: Physician performing sedation Pre-sedation assessment: Intended level of sedation: Moderate (conscious sedation) ASA classification: class 1 - normal, healthy patient Mallampati score: I - soft palate, uvula, fauces, pillars visible Planned medication(s): Propofol Dosing plan: Fixed dose Immediate pre-procedure details: Reassessment: Patient reassessed immediately prior to procedure Reviewed: Vital signs Verified: bag valve mask available, emergency equipment available, oxygen available and suction available Post-procedure details: Post-sedation assessment completed: 08/20/2024 1:32 PM Attendance: Constant attendance by certified staff until patient recovered Recovery: Consistent with the nursing recovery record, the patient is awake or at satisfactory post-sedation level of consciousness and recovery has been unremarkable. Patient is stable for discharge or admission: yes Patient tolerance: Tolerated well, no immediate complications Abhay Velez MD IN CLINIC/BEDSIDE ORDERABLES Fi nal Result * XR Mandible Less than 4 Views (08/20/2024 11:41 AM SEWER CLEANER) Anatomical Region Laterality Modality Head and Neck N/A Computed Radiogr aphy 08/20/2024 11:5 5 AM SEWER CLEANER Narrative 08/20/2024 12:02 PM SEWER CLEANER EXAM DESCRIPTION: XR MANDIBLE LESS THAN 4 VIEWS REASON FOR STUDY: Pain after dislocation today. TECHNIQUE: AP and bilateral lateral radiographic view(s) of the mandible . COMPARISON: Mandible radiographs 10/16/2021 FINDINGS: There is a left-sided temporomandibular joint dislocation. The condyle is anteriorly dislocated with respect to the condylar fossa. No fracture seen. IMPRESSION: Left-sided temporomandibular joint dislocation. THIS IS AN ELECTRONICALLY VERIFIED FINAL REPORT 08/20/2024 12:02 PM - Electronically signed by Rohan Ramos M.D. LB: LB Report ID: [id number] Reading Location: [id number] Procedure Note Rohan Ramos MD - 08/20/2024 EXAM DESCRIPTION: XR MANDIBLE LESS THAN 4 VIEWS REASON FOR STUDY: Pain after dislocation today. TECHNIQUE: AP and bilateral lateral radiographic view(s) of the mandible. COMPARISON: Mandible radiographs 10/16/2021 FINDINGS: There is a left-sided temporomandibular joint dislocation. The condyle is anteriorly dislocated with respect to the condylar fossa. No fracture seen. IMPRESSION: Left-sided temporomandibular joint dislocation. THIS IS AN ELECTRONICALLY VERIFIED FINAL REPORT 08/20/2024 12:02 PM - Electronically signed by Rohan Ramos M.D. LB: LB Report ID: [id number] Reading Location: [id number] us Jorje Huynh MD IMG XR PROCEDURES Final Re sult * Sepsis Lactate w/ Reflex (08/20/2024 8:24 AM SEWER CLEANER) Sepsis Lactate 1.3 0.7 - 2.0 mmol/L Comment:Testing performed by : [facility] [address] [address] Blood 08/20/2024 8:24 AM SEWER CLEANER 08/20/2024 8:29 AM SEWER CLEANER Erik Westbrook NP LAB BLOOD ORDERABLES Final Resul t Performing Organization Address City/[facility] de Phone Number TAWNYA [address] [address] * (ABNORMAL) Sepsis Lactate w/ Reflex (08/20/2024 3:25 AM SEWER CLEANER) Sepsis Lactate 2.6(C) 0.7 - 2.0 mmol/L Comment: Critical Result called to and read back by [id number], DATE: 2024-08-20 04:23:15 BY: [id number] Testing performed by: [address] [address] Blood 08/20/2024 3:25 AM SEWER CLEANER 08/20/2024 4:00 AM SEWER CLEANER Erik Westbrook NP LAB BLOOD ORDERABLES Final Resul t Performing Organization Address [facility] Co de Phone Number YA[address] [address] * eGFR (08/20/2024 3:25 AM SEWER CLEANER) eGFR >90 >=60 mL/min/1. 73 m2 Comment: Interpretive Data Reference Interval Normal >/= 90 mL/min/1.73m2 Mildly decreased* 60 - 89 mL/min/1.73m2 Mildly to moderately decreased 45 - 59 mL/min/1.73m2 Moderately to severely decreased 30 - 44 mL/min/1.73m2 Severely decreased 15 - 29 mL/min/1.73m2 Kidney Failure < 15 mL/min/1.73m2 *Relative to young adult level Estimated glomerular filtration rate is determined by the 2020 CKD-EPI equation recommended by the National Kidney Foundation (A Unifying Approach to GFR Estimation: Recommendations of the NKF-ASK Task Force on Reassessing the Inclusion of Race in Diagnosing Kidney Disease, JULIASN 2020). The CKD-EPI equation should not be used for patients with unstable renal function and has not been validated in children and those over 70. Current interpretive data was last reviewed 2021. Testing performed by: [address] [address] Blood 08/20/2024 3:25 AM SEWER CLEANER 08/20/2024 4:00 AM SEWER CLEANER us José Luis Tripp MD LAB BLOOD ORDERABLES Final Re sult [facility] 4506 [facility] Department [place] [address] * (ABNORMAL) CBC without differential (08/20/2024 3:25 AM SEWER CLEANER) WBC 12.4(H) 3.8 - 9.9 K/cumm Comment:Testing performed by : [address] [address] Hgb 10.3(L) 11.9 - 15.5 g/dL TAWNYA Comment:Testing performed by : [address] [address] Hct 32.7(L) 35.6 - 45.5 % TAWNYA Comment:Testing performed by : [address] [address] Plt 467(H) 150 - 400 K/cumm TAWNYA Comment:Testing performed by : [address] [address] MPV 9.1 9.1 - 12.3 fL TAWNYA Comment:Testing performed by : [address] [address] RBC 4.09 3.90 - 5.20 M/cumm TAWNYA Comment:Testing performed by : [address] [address] MCV 80.0(L) 81.3 - 96.4 fL TAWNYA Comment:Testing performed by : [address] [address] MCH 25.2(L) 27.1 - 33.3 pg TAWNYA MILLS Comment:Testing performed by : [address] [address] MCHC 31.5(L) 32.3 - 35.7 g/dL TAWNYA MILLS Comment:Testing performed by : [address] [address] RDW CV 15.1(H) 11.1 - 14.9 % TAWNYA MILLS Comment:Testing performed by : [address] [address] RDW SD 43.8 35.7 - 48.1 fL TAWNYA MILLS Comment:Testing performed by : [address] [address] NRBC abs 0.00 0.00 - 0.01 K/cumm TAWNYA MILLS Comment:Testing performed by : [address] [address] Blood 08/20/2024 3:25 AM SEWER CLEANER 08/20/2024 4:00 AM SEWER CLEANER us José Luis Tripp MD LAB BLOOD ORDERABLES Final Re sult TAWNYA 7495 [facility] Department of Laboratories [place], [place] [id number] * (ABNORMAL) Basic metabolic panel (08/20/2024 3:25 AM SEWER CLEANER) Pathologist [facility] Sodium 138 135 - 145 mmol/L Comment:Testing performed by : [address] [address] Potassium, pl 4.4 3.3 - 4.9 mmol/L TAWNYA MILLS Comment: Hemolyzed; Potassium value may be falsely elevated by as much as 1.0 mmol/L. Suggest redraw and reanalysis. Testing performed by: [address] [address] Chloride 104 97 - 110 mmol/L TAWNYA MILLS Comment:Testing performed by : [address] [address] CO2 20(L) 22 - 32 mmol/L TAWNYA Comment:Testing performed by : [address] [address] Anion gap 14 2 - 15 mmol/L TAWNYA Comment:Testing performed by : [address] [address] BUN 8 6 - 25 mg/dL TAWNYA Comment:Testing performed by : [address] [address] Creatinine 0.64 0.60 - 1.10 mg/dL TAWNYA Comment:Testing performed by : [address] [address] Glucose 179 70 - 199 mg/dL TAWNYA Comment: Interpretive Data Fasting glucose >/= 126 mg/dl is diagnostic for diabetes. Fasting is defined as no caloric intake for at least 8 hours. Fasting glucose between 100 mg/dl to 125 mg/dl is diagnostic of prediabetes. In a patient with classic symptoms of hyperglycemia or hyperglycemic crisis, a random glucose >/= 200 mg/dl is diagnostic for diabetes. In the absence of unequivocal hyperglycemia, results should be confirmed by repeat testing. The classification and Diagnosis of Diabetes Diabetes Care 2021; 46: S19-S40. Current interpretive data was last revised 2022. Testing performed by: [address] [address] Calcium 9.5 8.5 - 10.3 mg/dL TAWNYA Comment:Testing performed by : [address] [address] Blood 08/20/2024 3:25 AM SEWER CLEANER 08/20/2024 4:00 AM SEWER CLEANER us José Luis Tripp MD LAB BLOOD ORDERABLES Final Re sult [facility] 0468 [facility] Department of Laboratories [place], [place] [id number] * ECG 12 lead (08/20/2024 2:26 AM SEWER CLEANER) Pathologist [facility] Ventricular Rate EKG/Min 148 BPM [facility] Atrial Rate 148 BPM [facility] TN-Interval (MSEC) 114 ms [facility] QRS-Interval (MSEC) 100 ms [facility] QT-Interval (MSEC) 336 ms [facility] QTc 527 ms [facility] P Kathryn 51 degrees [facility] R Kathryn 73 degrees [facility] T Kathryn 35 degrees [facility] Diagnosis Sinus tachycardia Incomplete right bundle branch block Nonspecific T wave abnormality Abnormal ECG When compared with ECG of 19-AUG-2024 20:25, No significant change was found Confirmed by BELIA CHU M.D. ([id number]) on 08/21/2024 5:20:17 AM [facility] 08/20/2024 2:26 AM SEWER CLEANER 08/21/2024 5:20 AM SEWER CLEANER us Jorje Huynh MD ECG ORDERABLES Final Resu lt Performing Organization Address City/[facility]/ZIP Co de Phone Number [facility] * (ABNORMAL) Sepsis Lactate w/ Reflex (08/19/2024 8:52 PM SEWER CLEANER) [facility] [facility] Sepsis Lactate 2.4(C) 0.7 - 2.0 mmol/L Comment: Critical Result called to and read back by [email or web address], DATE: 2024-08-19 21:21:33 BY: [email or web address] Testing performed by: [facility], [address] [place] [address]., [id number] Blood 08/19/2024 8:52 PM SEWER CLEANER 08/19/2024 8:55 PM SEWER CLEANER us Erik Westbrook NP LAB BLOOD ORDERABLES Final Resul t [facility] [address] [facility] Department [place] [address] * ECG 12 lead (08/19/2024 8:25 PM SEWER CLEANER) [facility] Ventricular Rate EKG/Min 129 BPM [facility] Atrial Rate 129 BPM [facility] TN-Interval (MSEC) 138 ms [facility] QRS-Interval (MSEC) 100 ms [facility] QT-Interval (MSEC) 316 ms [facility] QTc 462 ms [facility] P Kathryn 55 degrees [facility] R Kathryn 49 degrees [facility] T Kathryn 46 degrees [facility] Diagnosis Sinus tachycardia Possible Left atrial enlargement Incomplete right bundle branch block Borderline ECG When compared with ECG of 21-MAY-2024 14:20, No significant change was found Confirmed by ZANE SORTO M.D. ([id number]) on 08/20/2024 11:59:01 PM [facility] 08/19/2024 8:25 PM SEWER CLEANER 08/20/2024 11:59 PM SEWER CLEANER Erik Westbrook NP ECG ORDERABLES Final Result Performing Organization Address City/[facility] Co de Phone Number [facility] * eGFR (08/19/2024 8:20 PM SEWER CLEANER) eGFR >90 >=60 mL/min/1. 73 m2 Comment: Interpretive Data Reference Interval Normal >/= 90 mL/min/1.73m2 Mildly decreased* 60 - 89 mL/min/1.73m2 Mildly to moderately decreased 45 - 59 mL/min/1.73m2 Moderately to severely decreased 30 - 44 mL/min/1.73m2 Severely decreased 15 - 29 mL/min/1.73m2 Kidney Failure < 15 mL/min/1.73m2 *Relative to young adult level Estimated glomerular filtration rate is determined by the 2020 CKD-EPI equation recommended by the National Kidney [employer] (A Unifying Approach to GFR Estimation: Recommendations of the NKF-ASK Task Force on Reassessing the Inclusion of Race in Diagnosing Kidney Disease, JASN 2020). The CKD-EPI equation should not be used for patients with unstable renal function and has not been validated in children and those over 70. Current interpretive data was last reviewed 2021. Testing performed by: [facility], [address] [place] [address], [place]., [address] Blood 08/19/2024 8:20 PM SEWER CLEANER 08/19/2024 8:24 PM SEWER CLEANER Erik Westbrook NP LAB BLOOD ORDERABLES Final Resul t [facility] [address] [facility] Department [place] [address] * (ABNORMAL) Differential, auto (08/19/2024 8:20 PM SEWER CLEANER) Neutrophil abs 17.7(H) 1.5 - 6.5 K/cumm Comment:Testing performed by : [address] [address] Imm gran abs 0.1 0.0 - 0.1 K/cumm [facility] Comment:Testing performed by : [address] [address] Lymphocyte abs 0.6(L) 0.8 - 3.3 K/cumm [facility] Comment:Testing performed by : [address] [address] Monocyte abs 0.4 0.2 - 0.8 K/cumm [facility] Comment:Testing performed by : [address] [address] Eosinophil abs 0.0 0.0 - 0.5 K/cumm [facility] Comment:Testing performed by : [address] [address] Basophil abs 0.1 0.0 - 0.1 K/cumm [facility] Comment:Testing performed by : [address] [address] Neutrophil pct 94.0 % [facility] Comment: Interpretive Data Percent cell count reference ranges are not reported, since discordance with absolute values may lead to misinterpretation of CBC data. Current Interpretive Data was last revised on 2017. Testing performed by: [address] [address] Imm gran pct 0.4 % [facility] Comment: Interpretive Data Percent cell count reference ranges are not reported, since discordance with absolute values may lead to misinterpretation of CBC data. Current Interpretive Data was last revised on 2017. Testing performed by: [address] [address] Lymphocyte pct 3.1 % [facility] Comment: Interpretive Data Percent cell count reference ranges are not reported, since discordance with absolute values may lead to misinterpretation of CBC data. Current Interpretive Data was last revised on 2017. Testing performed by: [address] [address] Monocyte pct 2.2 % [facility] Comment: Interpretive Data Percent cell count reference ranges are not reported, since discordance with absolute values may lead to misinterpretation of CBC data. Current Interpretive Data was last revised on 2017. Testing performed by: [address] [address] Eosinophil pct 0.0 % [facility] Comment: Interpretive Data Percent cell count reference ranges are not reported, since discordance with absolute values may lead to misinterpretation of CBC data. Current Interpretive Data was last revised on 2017. Testing performed by: [address] [address] Basophil pct 0.3 % [facility] Comment: Interpretive Data Percent cell count reference ranges are not reported, since discordance with absolute values may lead to misinterpretation of CBC data. Current Interpretive Data was last revised on 2017. Testing performed by: [address] [address] Blood 08/19/2024 8:20 PM SEWER CLEANER 08/19/2024 8:24 PM SEWER CLEANER us Erik Westbrook NP LAB BLOOD ORDERABLES Final Resul t [facility] [address] [facility] Department of Laboratories [place], [place] [id number] * (ABNORMAL) CBC with auto differential (08/19/2024 8:20 PM SEWER CLEANER) WBC 18.8(H) 3.8 - 9.9 K/cumm Comment:Testing performed by : [address] [address] Hgb 10.7(L) 11.9 - 15.5 g/dL [facility] [place] Comment:Testing performed by : [address] [address] Hct 33.3(L) 35.6 - 45.5 % [facility] Comment:Testing performed by : [address] [address] Plt 502(H) 150 - 400 K/cumm [facility] Comment:Testing performed by : [address] [address] MPV 8.9(L) 9.1 - 12.3 fL [facility] Comment:Testing performed by : [address] [address] RBC 4.21 3.90 - 5.20 M/cumm [facility] Comment:Testing performed by : [address], [address] MCV 79.1(L) 81.3 - 96.4 fL [facility] Comment:Testing performed by : [address] [address] MCH 25.4(L) 27.1 - 33.3 pg [facility] Comment:Testing performed by : [address], [address] MCHC 32.1(L) 32.3 - 35.7 g/dL [facility] Comment:Testing performed by : [address], [address] RDW CV 14.9 11.1 - 14.9 % [facility] Comment:Testing performed by : [address], [address] RDW SD 43.0 35.7 - 48.1 fL [facility] Comment:Testing performed by : [address], [address] NRBC abs 0.00 0.00 - 0.01 K/cumm [facility] Comment:Testing performed by : [address], [address] Blood 08/19/2024 8:20 PM SEWER CLEANER 08/19/2024 8:24 PM SEWER CLEANER us Erik Westbrook NP LAB BLOOD ORDERABLES Final Resul t [facility] [address] [facility] Department [place] [address] * Comprehensive metabolic panel (08/19/2024 8:20 PM SEWER CLEANER) Sodium 140 135 - 145 mmol/L Comment:Testing performed by : [facility], [address] [place] [address], [place]., [address] Potassium, pl 3.5 3.3 - 4.9 mmol/L [facility] Comment:Testing performed by : [facility], [address] [place] [address], [place]., [address] Chloride 104 97 - 110 mmol/L [facility] Comment:Testing performed by : [address], [place]., [address] CO2 23 22 - 32 mmol/L [facility] Comment:Testing performed by : [address], [place]., [address] Anion gap 13 2 - 15 mmol/L [facility] Comment:Testing performed by : [address] [address] BUN 11 6 - 25 mg/dL [facility] Comment:Testing performed by : [address], [place]., [address] Creatinine 0.71 0.60 - 1.10 mg/dL [facility] Comment:Testing performed by : [address], [place]., [address] Glucose 136 70 - 199 mg/dL [facility] Comment: Interpretive Data Fasting glucose >/= 126 mg/dl is diagnostic for diabetes. Fasting is defined as no caloric intake for at least 8 hours. Fasting glucose between 100 mg/dl to 125 mg/dl is diagnostic of prediabetes. In a patient with classic symptoms of hyperglycemia or hyperglycemic crisis, a random glucose >/= 200 mg/dl is diagnostic for diabetes. In the absence of unequivocal hyperglycemia, results should be confirmed by repeat testing. The classification and Diagnosis of Diabetes Diabetes Care 202; 46: S19-S40. Current interpretive data was last revised 2022. Testing performed by: [address], [place]., [address] Calcium 9.2 8.5 - 10.3 mg/dL [facility] Comment:Testing performed by : [address] [address] Bilirubin, total <0.2 0.1 - 1.2 mg/dL [facility] Comment:Testing performed by : [address] [address] Protein, pl 7.5 6.5 - 8.5 g/dL [facility] Comment:Testing performed by : [address] [address] Albumin 4.4 3.5 - 5.0 g/dL [facility] Comment:Testing performed by : [address], [place]., [address] Alk phos 74 40 - 130 Units/L [facility] Comment:Testing performed by : [address] [address] ALT 29 7 - 45 Units/L [facility] Comment:Testing performed by : [address] [address] AST 19 10 - 45 Units/L [facility] Comment:Testing performed by : [address] [address] Blood 08/19/2024 8:20 PM SEWER CLEANER 08/19/2024 8:24 PM SEWER CLEANER us Erik Westbrook NP LAB BLOOD ORDERABLES Final Resul t Performing Organization Address City/State/[facility] Co de Phone Number [facility] [address] [facility] Department [place] [address] * Critical Care (08/19/2024 5:13 PM SEWER CLEANER) Narrative Erik Westbrook NP - 08/19/2024 5:13 PM SEWER CLEANER Erik Westbrook NP 08/19/2024 9:10 PM Critical Care Performed by: Erik Westbrook NP Authorized by: Robel Christianson Jr., MD Critical care provider statement: As reflected in the history, physical exam, orders, notes, and/or MDM, I was personally present while the patient was critically ill and provided critical care services for 35 minutes, excluding time involved in separately billable procedures. Critical care was necessary to treat or prevent imminent or life-threatening deterioration of the following condition(s): unstable vital signs anaphylactic shock/severe allergic reaction Critical care was time spent by me providing the following: continuous telemetry and continuous pulse oximetry Anaphylaxis management using a steroid, Benadryl. I provided emergent necessary critical care medicine services to this patient. I ordered and reviewed test results and/or imaging studies. I spent time discussing the management of this critically ill patient with consultants and the medical staff. I spent time discussing the management and therapeutic options for this critically ill patient with the patient themselves or with the appropriate designated surrogate decision-maker. I spent time documenting in the medical record. I admitted this patient to a continuous cardiac monitored bed. us Robel Christianson Jr., MD IN CLINIC/BEDSIDE ORDER YURIY Final Result from Last 3 Months Insurance [employer] OPEN ACCESS [facility] CHOICE PLUS [facility] CHOICE PLUS Advance Directives For more information, please contact: [phone] * Full Code (Latest Code Status on File) Date Activated Date Inactivated Comments 09/23/2024 7:38 PM 09/24/2024 5:41 PM * Full Code Date Activated Date Inactivated Comments 09/01/2024 7:30 PM 09/05/2024 3:39 PM * Full Code Date Activated Date Inactivated Comments 08/19/2024 9:45 PM 08/22/2024 5:15 PM Care Teams Fabrication Manager Relationship Specialty Start Date End Date Shannan Maldonado MD PCP - General 09/07/19
--- OUTSIDE RECORDS SUMMARY | 2024-09-26 11:25 | XMS_ITS | Encounter Summary ---
Author Organization [facility] Address [address] [place] [address] Phone Care Team Providers Care Transmitter Engineer Name Role Phone Shannan Maldonado MD Primary Care Provider [phone] Encounter Details Date Type Department Care Team (Latest Contact Info) Description 10/28/2021 Orders Only [facility] Scanning, Provider Social History Tobacco Use Types Packs/Day Years Used Date Smoking Tobacco: Never Smokeless Tobacco: Never Alcohol Use Standard Drinks/Week Comments Not Currently 0 (1 standard drink = 0.6 oz pur e alcohol) Comments No Sex and Gender Information Value Date Recorded Sex Assigned at Not on file Legal Sex Female 1:34 AM NURSE CLINICAL Gender Identity Female 07/01/2022 7:31 PM NURSE CLINICAL Sexual Orientation Not on file documented as of this encounter Plan of Treatment Not on file documented as of this encounter Procedures Procedure Name Priority Date/Time Associated Diagnosis Comments SCAN - LABS 10/28/2021 documented in this encounter Results * SCAN - LABS (10/28/2021) us Provider Scanning Final Result documented in this encounter Visit Diagnoses Not on filedocumented in this encounter Care Teams Transmitter Engineer Relationship Specialty Start Date End Date Shannan Maldonado MD PCP - General 09/07/19 documented as of this encounter
--- OUTSIDE RECORDS SUMMARY | 2024-09-26 11:25 | XMS_ITS | Continuity of Care Document ---
Author Organization [facility] Address [address] [facility] [address] [place] [address] Phone Care Team Providers Care Airplane Coverer Name Role Phone No Information Unavailable Unavailable Advance Directives Directive Yes / No Effective Date File Name No Information Encounters Encounter Description Practice Location Reason(s) For Visit Diagnoses Date Provider Providers Copied on Encounter [facility], [address] [facility] [address], [place], [place], [id number], [place] tel:[phone] [facility] No Information No Information Family History Family Member Type Diagnosis Age At Onset No Information Payers Payer name Insurance type Covered republican ID Authoriza tion(s) No Information Social History Type Description Quantity Date Captured Comments Sex Female Smoking Status No Information Chief Complaint And Reason For Visit No Information Reason For Referral Reason For Referral No Information History Of Present Illness Encounter Date Complaint History Of Prese nt Illness No Information Functional Status Date Functional Assessmen t No Information Instructions Date Instruction Additional Infor mation No Information Assessments Type Assessment Date No Information Patient Care Teams Name Effective Dates (start - stop) Status Members No Information
--- OUTSIDE RECORDS SUMMARY | 2024-09-26 11:25 | XMS_ITS | Clinical Summary ---
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 Encounters Date Type Department Care Team Description 09/23/2024 4:55 PM CDT - 09/24/2024 1:30 PM CDT Hospital Encounter [place] [id number] [place] [id number] Samuel Bowen MD Winston, Jared Todd, MD Ali, Md Shahin, MD Allergic reaction, initial encounter (Primary Dx) Discharge Disposition: Discharge to home or self care 09/01/2024 2:02 PM [employer]ATCHERY EMPLOYEE - 09/05/2024 11:38 AM HATCHERY EMPLOYEE [facility] [address] [place] [phone] Wil Monteiro MD Gaspe Mudiyanselage, MD Tobin Vinson, Venkat Robin MD Allergic reaction, initial encounter (Primary Dx) Discharge Disposition: Discharge to home or self care 08/19/2024 4:39 PM HATCHERY EMPLOYEE - 08/22/2024 1:15 PM HATCHERY EMPLOYEE [facility] [address] [place] [address] José Luis Tripp MD Winston, Jorje Lester MD Anaphylaxis, initial encounter (Primary Dx) Discharge Disposition: Discharge to home or self care from Last 3 Months Surgical History Surgery Date Site/Laterality Comments [place] BIOPSY MUSCLE SUPERFICIAL Biopsy Muscle - 2006 (Added by TW Conv) KNEE SURGERY Knee Surgery - ligament reconstruction 10/2009 (Added by TW Conv) [place] RELEASE TARSAL TUNNEL Decompression Tarsal Tunnel Release Left Foot - (Added by TW Conv) [place] TONSILLECTOMY PRIMARY/SECONDARY <AGE 12 Tonsillectomy - (Added by TW Conv) WISDOM TOOTH EXTRACTION Oral Surgery Tooth Extraction [place] Tooth - (Added by TW Conv) FL COLONOSCOPY FLX DX W/LEX J SPEC WHEN PFRMD Colonoscopy - (Added by TW Conv) FL DILATION & CURETTAGE DX&/ THER NONOBSTETRIC Dilation And Curettage - (Added by TW Conv) CARPAL TUNNEL RELEASE Bilateral 2020 Medical History Medical History Date Comments Personal history of other sp ecified conditions History of syncope - (Added by TW Conv) 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 POTS (postural orthostatic t achycardia syndrome) Allergic rhinitis Asthma Autoimmune disease Anxiety Heart disease Sinusitis 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 Never 09/24/2024 Do you belong to any clubs o r organizations such as mormonism groups, unions, fraternal or athletic groups, or [...] any time in the past 12 m [facility], were you homeless or living in a penitentiary (including now)? No 09/24/2024 Personal Safety Answer Date Recorded Have you ever been in or are you currently in a harmful physical or emotional relationship or is someone making you feel afraid or unsafe? Denies 09/23/2024 Comments No Sex and Gender Information Value Date Recorded Sex Assigned at Not on file Legal Sex Female 1:34 AM HATCHERY EMPLOYEE Gender Identity Female 07/01/2022 7:31 PM HATCHERY EMPLOYEE Sexual Orientation Not on file Obstetrics History Last Filed Vital Signs Vital Sign Reading [...] cm (5' 7 ) 09/01/2024 9:23 PM HATCHERY EMPLOYEE Body Mass Index 31.11 09/01/2024 9:23 PM HATCHERY EMPLOYEE Plan of Treatment Health Maintenance Due Date Last Done Comments Cervical Cancer Screening 1991 Hepatitis C Screening 1991 Varicella Vaccines (1 of 2 - 13+ 2-dose series) 2004 Hepatitis B Screening 2009 Regular Well Visit/Exam 18-64 2009 Influenza Vaccine (#1) 2024 9, 04/06/2019, 07/13/2018, Additional history exists Depression Screening 09/01/2025 09/01/2024, 09/02/19 25 DTaP/Tdap/Td Vaccine (2 - Td or Tdap) 07/10/2027 07/10/2017 HPV Vaccines Aged Out No longer eligi ble based on patient's age to complete this topic Pneumococcal vaccine <65 Aged Out No longer eligible based on patient's age to complete this topic Procedures Procedure Name Priority Date/Time Associated Diagnosis Comments EGFR Routine 09/24/2024 3:43 AM CDT DIFFERENTIAL AUTO Routine 09/24/2024 3:4 3 AM CDT BASIC METABOLIC PANEL Routine 09/24/2024 3:43 AM CDT CBC WITH AUTO DIFFERENTIAL Routine 09/24/2024 3:43 AM CDT XR MANDIBLE 4 OR MORE VIEWS Critical/Life- Threatening 09/23/2024 8:29 PM CDT FL CLOSED TX STERNOCLAVICULAR DISLC W/MANIPULATION Routine 09/23/2024 [...] 4:27 PM CDT CBC WITHOUT DIFFERENTIAL Routine 09/05/ 025 4:27 AM HATCHERY EMPLOYEE CBC WITHOUT DIFFERENTIAL Routine /05/ 025 4:25 AM HATCHERY EMPLOYEE TROPONIN T HIGH-SENSITIVITY 2-HOUR Timed 09/01/2024 5:11 PM HATCHERY EMPLOYEE URINALYSIS AND REFLEX TO MICROSCOPIC AND CULTURE STAT 09/01/2024 4:58 PM HATCHERY EMPLOYEE XR CHEST 1 VIEW ED 09/01/2024 3:05 PM HATCHERY EMPLOYEE EGFR STAT 09/01/2024 2:59 PM HATCHERY EMPLOYEE DIFFERENTIAL AUTO STAT 09/01/2024 2:5 9 PM HATCHERY EMPLOYEE MAGNESIUM STAT 09/01/2024 2:59 PM HATCHERY EMPLOYEE THYROID FUNCTION CASCADE STAT 025 2:59 PM HATCHERY EMPLOYEE TROPONIN T HIGH-SENSITIVITY SERIES (BASELINE, 2HR, 4HR, 6HR) STAT 09/01/2024 2:59 PM HATCHERY EMPLOYEE BASIC METABOLIC PANEL STAT 09/01/2024 2:59 PM HATCHERY EMPLOYEE CBC WITH AUTO DIFFERENTIAL STAT 09/01/2024 2:59 PM HATCHERY EMPLOYEE POCT HCG, URINE Routine 09/01/2024 2:28 PM HATCHERY EMPLOYEE ECG 12-LEAD Routine 09/01/2024 1:54 PM HATCHERY EMPLOYEE EGFR Routine 08/22/2024 7:57 AM HATCHERY EMPLOYEE CBC WITHOUT DIFFERENTIAL Routine 025 7:57 AM HATCHERY EMPLOYEE BASIC METABOLIC PANEL Routine 08/22/2024 7:57 AM HATCHERY EMPLOYEE EGFR Routine 08/21/2024 7:53 AM HATCHERY EMPLOYEE CBC WITHOUT DIFFERENTIAL Routine 025 7:53 AM HATCHERY EMPLOYEE BASIC METABOLIC PANEL Routine 08/21/2024 7:53 AM HATCHERY EMPLOYEE FL CLOSED TX TEMPOROMANDIBULAR DISLOCATION SBSQ Routine 08/20/2024 1:18 PM HATCHERY EMPLOYEE ED MODERATE SEDATION Routine 08/20/2024 1:18 PM HATCHERY EMPLOYEE XR MANDIBLE LESS THAN 4 VIEWS Critical/Life- Threatening 08/20/2024 11:41 AM HATCHERY EMPLOYEE SEPSIS LACTATE WITH REFLEX Timed 08/20/2024 8:24 AM HATCHERY EMPLOYEE EGFR Routine 08/20/2024 3:25 AM HATCHERY EMPLOYEE CBC WITHOUT DIFFERENTIAL Routine 025 3:25 AM HATCHERY EMPLOYEE BASIC METABOLIC PANEL Routine 08/20/2024 3:25 AM HATCHERY EMPLOYEE SEPSIS LACTATE WITH REFLEX Timed 08/20/2024 3:25 AM HATCHERY EMPLOYEE ECG 12-LEAD Routine 08/20/2024 2:26 AM HATCHERY EMPLOYEE SEPSIS LACTATE WITH REFLEX STAT 08/19/2024 8:52 PM HATCHERY EMPLOYEE ECG 12-LEAD STAT 08/19/2024 8:25 PM HATCHERY EMPLOYEE EGFR STAT 08/19/2024 8:20 PM HATCHERY EMPLOYEE DIFFERENTIAL AUTO STAT 08/19/2024 8:2 0 PM HATCHERY EMPLOYEE CBC WITH AUTO DIFFERENTIAL STAT 08/19/2024 8:20 PM HATCHERY EMPLOYEE COMPREHENSIVE METABOLIC PANEL STAT 08/19/2024 8:20 PM HATCHERY EMPLOYEE ED CRITICAL CARE Routine 08/19/2024 5:13 PM HATCHERY EMPLOYEE from Last 3 Months Results * eGFR (09/24/2024 3:43 AM CDT) [facility] Signature eGFR >90 >=60 mL/min/1. 73 m2 Comment: [...] was last reviewed 2021. Testing performed by: [address] [address] Blood 09/24/2024 3:43 AM CDT 09/24/2024 4:47 AM CDT us Dariela Cortez NP LAB BLOOD ORDERABLES Final R esult [facility] [address] [facility] Department [place] [address] * (ABNORMAL) Differential, auto (09/24/2024 3:43 AM CDT) Neutrophil abs 9.1(H) 1.5 - 6.5 K/cumm Comment:Testing performed by : [address] [address] Imm gran abs 0.0 0.0 - 0.1 K/cumm [facility] Comment:Testing performed by : [address] [address] Lymphocyte abs 0.7(L) 0.8 - 3.3 K/cumm [facility] Comment:Testing performed by : [address] [address] Monocyte abs 0.3 0.2 - 0.8 K/cumm [facility] Comment:Testing performed by : [address] [address] Eosinophil abs 0.0 0.0 - 0.5 K/cumm [facility] Comment:Testing performed by : [address] [address] Basophil abs 0.0 0.0 - 0.1 K/cumm [facility] Comment:Testing performed by : [address] [address] Neutrophil pct 89.5 % [facility] Comment: Interpretive Data Percent cell count reference ranges are not reported, since discordance with absolute values may lead to misinterpretation of CBC data. Current Interpretive Data was last revised on 2017. Testing performed by: [address] [address] Imm gran pct 0.3 % [facility] Comment: Interpretive Data Percent cell count reference ranges are not reported, since discordance with absolute values may lead to misinterpretation of CBC data. Current Interpretive Data was last revised on 2017. Testing performed by: [address] [address] Lymphocyte pct 6.9 % [facility] Comment: Interpretive Data Percent cell count reference ranges are not reported, since discordance with absolute values may lead to misinterpretation of CBC data. Current Interpretive Data was last revised on 2017. Testing performed by: [address] [address] Monocyte pct 3.1 % [facility] Comment: Interpretive Data Percent cell count reference ranges are not reported, since discordance with absolute values may lead to misinterpretation of CBC data. Current Interpretive Data was last revised on 2017. Testing performed by: [address] [address] Eosinophil pct 0.0 % [facility] Comment: Interpretive Data Percent cell count reference ranges are not reported, since discordance with absolute values may lead to misinterpretation of CBC data. Current Interpretive Data was last revised on 2017. Testing performed by: [address] [address] Basophil pct 0.2 % [facility] Comment: Interpretive Data Percent cell count reference ranges are not reported, since discordance with absolute values may lead to misinterpretation of CBC data. Current Interpretive Data was last revised on 2017. Testing performed by: [address] [address] Blood 09/24/2024 3:43 AM CDT 09/24/2024 4:50 AM CDT Dariela Cortez [employer] LAB BLOOD ORDERABLES Final R esult [facility] [address] [facility] Department of Laboratories [place], [place] [id number] * (ABNORMAL) CBC with auto differential (09/24/2024 3:43 AM CDT) WBC 10.2(H) 3.8 - 9.9 K/cumm Comment:Testing performed by : [address] [address] Hgb 10.5(L) 11.9 - 15.5 g/dL [facility] Comment:Testing performed by : [address] [address] Hct 34.2(L) 35.6 - 45.5 % [facility] Comment:Testing performed by : [address] [address] Plt 418(H) 150 - 400 K/cumm [facility] Comment:Testing performed by : [address] [address] MPV 9.7 9.1 - 12.3 fL [facility] Comment:Testing performed by : [address] [address] RBC 4.17 3.90 - 5.20 M/cumm [facility] Comment:Testing performed by : [address] [address] MCV 82.0 81.3 - 96.4 fL [facility] Comment:Testing performed by : [address] [address] MCH 25.2(L) 27.1 - 33.3 pg [facility] Comment:Testing performed by : [address] [address] MCHC 30.7(L) 32.3 - 35.7 g/dL [facility] Comment:Testing performed by : [address] [address] RDW CV 15.6(H) 11.1 - 14.9 % [facility] Comment:Testing performed by : [address] [address] RDW SD 46.4 35.7 - 48.1 fL [facility] Comment:Testing performed by : [address] [address] NRBC abs 0.00 0.00 - 0.01 K/cumm [facility] Comment:Testing performed by : [address] [address] Blood 09/24/2024 3:43 AM CDT 09/24/2024 4:50 AM CDT us Dariela Cortez NP LAB BLOOD ORDERABLES Final R esult [facility] [address] [facility] Department of Laboratories [place], [place] [id number] * (ABNORMAL) Basic metabolic panel (09/24/2024 3:43 AM CDT) Sodium 138 135 - 145 mmol/L Comment:Testing performed by : [address] [address] Potassium, pl 4.2 3.3 - 4.9 mmol/L [facility] Comment:Testing performed by : [address] [address] Chloride 107 97 - 110 mmol/L [facility] Comment:Testing performed by : [address] [address] CO2 21(L) 22 - 32 mmol/L [facility] Comment:Testing performed by : [address] [address] Anion gap 10 2 - 15 mmol/L [facility] Comment:Testing performed by : [address] [address] BUN 10 6 - 25 mg/dL [facility] Comment:Testing performed by : [address] [address] Creatinine 0.71 0.60 - 1.10 mg/dL [facility] Comment:Testing performed by : [address] [address] Glucose 145 70 - 199 mg/dL [facility] [...] was last revised 2022. Testing performed by: [address] [address] Calcium 9.7 8.5 - 10.3 mg/dL [facility] Comment:Testing performed by : [address] [address] Blood 09/24/2024 3:43 AM CDT 09/24/2024 4:47 AM CDT us Dariela Cortez NP LAB BLOOD ORDERABLES Final R esult [facility] [address] [facility] Department [place] [address] * XR Mandible 4 or More Views [...] signed by Arnold GRAHAM: GLADYS Report ID: [id number] Reading Location: [id number] Procedure Note Arnold Chahal MD - 09/23/2024 [...] signed by Arnold GRAHAM: GLADYS Report ID: [id number] Reading Location: [id number] Darian Goode MD IMG XR PROCEDURES Fi nal Result * FL CLOSED TX STERNOCLAVICULAR DISLC W/MANIPULATION (09/23/2024 7:35 [...] of procedure: Tolerated well, no immediate complications us Samuel Bowen MD IN CLINIC/BEDSIDE O RDERABLES [...] Arnold Chahal M.D. KH: GLADYS Report ID: [id number] Reading Location: [id number] Procedure Note Arnold Chahal MD - 09/23/2024 [...] Arnold Chahal M.D. KH: GLADYS Report ID: [id number] Reading Location: [id number] Jorje Huynh MD IMG XR PROCEDURES Final [...] López Mcclellan M.D. MM: MM Report ID: [id number] Reading Location: [id number] Procedure Note López Mcclellan MD - 09/23/2024 [...] López Mcclellan M.D. MM: MM Report ID: [id number] Reading Location: [place] [address] Samuel Bowen MD IMG XR PROCEDURES F inal Result * ECG 12 lead (09/23/2024 4:46 PM CDT) Pathologist [facility] Ventricular Rate EKG/Min 146 BPM [facility] Atrial Rate 292 BPM [facility] QRS-Interval (MSEC) 98 ms [facility] QT-Interval (MSEC) 350 ms [facility] QTc 545 ms [facility] R [place] 58 degrees [facility] T [place] 50 degrees [facility] Diagnosis Sinus tachycardia Incomplete right bundle branch block T-wave changes When compared with ECG of 01-SEP-2024 13:54, No significant change Confirmed by SULTAN ZUNIGA M.D. ([id number]) on 09/23/2024 9:49:04 PM [facility] 09/23/2024 4:46 PM CDT 09/23/2024 9:49 PM CDT Samuel Bowen MD ECG ORDERABLES Fin al Result [facility] * eGFR (09/23/2024 4:27 PM CDT) Pathologist [facility] eGFR 88 >=60 mL/min/1. 73 m2 Comment: [...] was last reviewed 2021. Testing performed by: [address] [address] Blood 09/23/2024 4:27 PM CDT 09/23/2024 4:39 PM CDT us Deisy MARQUEZ LAB BLOOD ORDERABLES Final Resu lt [facility] [address] [facility] Department of Laboratories [place], [place] [id number] * (ABNORMAL) Differential, auto (09/23/2024 4:27 PM CDT) Pathologist [facility] Neutrophil abs 7.2(H) 1.5 - 6.5 K/cumm Comment:Testing performed by : [address] [address] Imm gran abs 0.0 0.0 - 0.1 K/cumm [facility] Comment:Testing performed by : [address] [address] Lymphocyte abs 2.4 0.8 - 3.3 K/cumm [facility] Comment:Testing performed by : [address] [address] Monocyte abs 0.8 0.2 - 0.8 K/cumm [facility] Comment:Testing performed by : [address] [address] Eosinophil abs 0.1 0.0 - 0.5 K/cumm [facility] Comment:Testing performed by : [address], [place]., [address] Basophil abs 0.1 0.0 - 0.1 K/cumm [facility] Comment:Testing performed by : [address] [address] Neutrophil pct 68.6 % [facility] Comment: Interpretive Data Percent cell count reference ranges are not reported, since discordance with absolute values may lead to misinterpretation of CBC data. Current Interpretive Data was last revised on 2017. Testing performed by: [address] [address] Imm gran pct 0.4 % [facility] Comment: Interpretive Data Percent cell count reference ranges are not reported, since discordance with absolute values may lead to misinterpretation of CBC data. Current Interpretive Data was last revised on 2017. Testing performed by: [address] [address] Lymphocyte pct 22.5 % [facility] Comment: Interpretive Data Percent cell count reference ranges are not reported, since discordance with absolute values may lead to misinterpretation of CBC data. Current Interpretive Data was last revised on 2017. Testing performed by: [address] [address] Monocyte pct 7.1 % [facility] Comment: Interpretive Data Percent cell count reference ranges are not reported, since discordance with absolute values may lead to misinterpretation of CBC data. Current Interpretive Data was last revised on 2017. Testing performed by: [address] [address] Eosinophil pct 0.7 % [facility] Comment: Interpretive Data Percent cell count reference ranges are not reported, since discordance with absolute values may lead to misinterpretation of CBC data. Current Interpretive Data was last revised on 2017. Testing performed by: [address] [address] Basophil pct 0.7 % [facility] Comment: Interpretive Data Percent cell count reference ranges are not reported, since discordance with absolute values may lead to misinterpretation of CBC data. Current Interpretive Data was last revised on 2017. Testing performed by: [address] [address] Blood 09/23/2024 4:27 PM CDT 09/23/2024 4:39 PM CDT us Samuel Bowen MD LAB BLOOD ORDERABLE S Final Result [facility] [address] [facility] Department of Laboratories [place], [place] [id number] * (ABNORMAL) CBC with auto differential (09/23/2024 4:27 PM CDT) WBC 10.5(H) 3.8 - 9.9 K/cumm Comment:Testing performed by : [address] [address] Hgb 11.9 11.9 - 15.5 g/dL [facility] Comment:Testing performed by : [address] [address] Hct 40.4 35.6 - 45.5 % [facility] Comment:Testing performed by : [address] [address] Plt 517(H) 150 - 400 K/cumm [facility] Comment:Testing performed by : [address] [address] MPV 9.3 9.1 - 12.3 fL [facility] Comment:Testing performed by : [address] [address] RBC 4.93 3.90 - 5.20 M/cumm [facility] Comment:Testing performed by : [address] [address] MCV 81.9 81.3 - 96.4 fL [facility] Comment:Testing performed by : [address] [address] MCH 24.1(L) 27.1 - 33.3 pg [facility] Comment:Testing performed by : [address] [address] MCHC 29.5(L) 32.3 - 35.7 g/dL [facility] Comment:Testing performed by : [address] [address] RDW CV 15.6(H) 11.1 - 14.9 % [facility] Comment:Testing performed by : [address] [address] RDW SD 46.5 35.7 - 48.1 fL [facility] Comment:Testing performed by : [address] [address] NRBC abs 0.00 0.00 - 0.01 K/cumm [facility] Comment:Testing performed by : [address] [address] Blood 09/23/2024 4:27 PM CDT 09/23/2024 4:39 PM CDT us Samuel Bowen MD LAB BLOOD ORDERABLE S Final Result [facility] [address] [facility] Department of Laboratories [place], [place] [id number] * Comprehensive metabolic panel (09/23/2024 4:27 PM CDT) Sodium 141 135 - 145 mmol/L Comment:Testing performed by : [address] [address] Potassium, pl 3.3 3.3 - 4.9 mmol/L [facility] Comment:Testing performed by : [address] [address] Chloride 104 97 - 110 mmol/L [facility] Comment:Testing performed by : [address] [address] CO2 22 22 - 32 mmol/L [facility] Comment:Testing performed by : [address] [address] Anion gap 15 2 - 15 mmol/L [facility] Comment:Testing performed by : [address] [address] BUN 11 6 - 25 mg/dL [facility] Comment:Testing performed by : [address], [place]., [address] Creatinine 0.89 0.60 - 1.10 mg/dL [facility] Comment:Testing performed by : [address] [address] Glucose 153 70 - 199 mg/dL [facility] [...] was last revised 2022. Testing performed by: [address] [address] Calcium 9.9 8.5 - 10.3 mg/dL [facility] Comment:Testing performed by : [address] [address] Bilirubin, total <0.2 0.1 - 1.2 mg/dL [facility] Comment:Testing performed by : [address] [address] Protein, pl 8.0 6.5 - 8.5 g/dL [facility] Comment:Testing performed by : [address] [address] Albumin 4.6 3.5 - 5.0 g/dL [facility] Comment:Testing performed by : [address] [address] Alk phos 84 40 - 130 Units/L [facility] Comment:Testing performed by : [address] [address] ALT 42 7 - 45 Units/L [facility] Comment:Testing performed by : [address] [address] AST 27 10 - 45 Units/L [facility] Comment:Testing performed by : [address] [address] Blood 09/23/2024 4:27 PM CDT 09/23/2024 4:39 PM CDT us Samuel Bowen MD LAB BLOOD ORDERABLE S Final Result [place] [id number] [facility] Department [place] [address] * (ABNORMAL) CBC without differential (09/05/2024 4:27 AM HATCHERY EMPLOYEE) WBC 14.9(H) 3.8 - 9.9 K/cumm Comment:Testing performed by : [address] [address] Hgb 10.8(L) 11.9 - 15.5 g/dL [facility] Comment:Testing performed by : [address] [address] Hct 35.6 35.6 - 45.5 % [facility] Comment:Testing performed by : [address] [address] Plt 414(H) 150 - 400 K/cumm [facility] Comment:Testing performed by : [address] [address] MPV 9.4 9.1 - 12.3 fL [facility] Comment:Testing performed by : [address] [address] RBC 4.35 3.90 - 5.20 M/cumm [facility] Comment:Testing performed by : [address] [address] MCV 81.8 81.3 - 96.4 fL [facility] Comment:Testing performed by : [address] [address] MCH 24.8(L) 27.1 - 33.3 pg [facility] Comment:Testing performed by : [address] [address] MCHC 30.3(L) 32.3 - 35.7 g/dL [facility] Comment:Testing performed by : [address] [address] RDW CV 15.4(H) 11.1 - 14.9 % [facility] Comment:Testing performed by : [address] [address] RDW SD 46.2 35.7 - 48.1 fL [facility] Comment:Testing performed by : [address] [address] NRBC abs 0.00 0.00 - 0.01 K/cumm [facility] Comment:Testing performed by : [address] [address] Blood 09/05/2024 4:27 AM HATCHERY EMPLOYEE 09/05/2024 5:03 AM HATCHERY EMPLOYEE us Venkat Rudd MD LAB BLOOD ORDERABLES Fi nal Result [facility] [address] [facility] Department of Laboratories [place], [place] [id number] * (ABNORMAL) CBC without differential (09/04/2024 4:25 AM HATCHERY EMPLOYEE) Pathologist [facility] WBC 14.5(H) 3.8 - 9.9 K/cumm Comment:Testing performed by : [address] [address] Hgb 10.5(L) 11.9 - 15.5 g/dL [facility] Comment:Testing performed by : [address] [address] Hct 35.4(L) 35.6 - 45.5 % [facility] Comment:Testing performed by : [address] [address] Plt 392 150 - 400 K/cumm [facility] Comment:Testing performed by : [address] [place]., [address] MPV 9.2 9.1 - 12.3 fL [facility] Comment:Testing performed by : [address] [address] RBC 4.27 3.90 - 5.20 M/cumm [facility] Comment:Testing performed by : [address] [address] MCV 82.9 81.3 - 96.4 fL [facility] Comment:Testing performed by : [address] [address] MCH 24.6(L) 27.1 - 33.3 pg [facility] Comment:Testing performed by : [address] [address] MCHC 29.7(L) 32.3 - 35.7 g/dL [facility] Comment:Testing performed by : [address], [address] RDW CV 15.6(H) 11.1 - 14.9 % [facility] Comment:Testing performed by : [address] [address] RDW SD 47.6 35.7 - 48.1 fL [facility] Comment:Testing performed by : [address] [address] NRBC abs 0.00 0.00 - 0.01 K/cumm [facility] Comment:Testing performed by : [address] [address] Blood 09/04/2024 4:25 AM HATCHERY EMPLOYEE 09/04/2024 4:41 AM HATCHERY EMPLOYEE us Venkat Rudd MD LAB BLOOD ORDERABLES Fi nal Result [facility] [address] [facility] Department of Laboratories [place], [place] [id number] * Troponin T high-sensitivity 2-hour (09/01/2024 5:11 PM HATCHERY EMPLOYEE) Trop T hs <6 <=14 ng/L Comment: Interpretive Data For further hscTnT resources including the diagnostic algorithm and an aid in interpretation, copy and paste this link: [email or web address].testcatalog.org/show/[email or web address] Current Interpretive Data last revised 2020. Testing performed by: [address] [address] Trop T hs delta 0 ng/L TAWNYA Comment:Testing performed by : [address] [address] Trop T hs interp Insignificant TAWNYA MILLS Comment:Testing performed by : [address] [address] Blood 09/01/2024 5:11 PM [employer]ERY EM[employer]EE 09/01/2024 5:14 PM [employer]ATCHERY EMPLOYEE us Wil Monteiro MD LAB BLOOD ORDERABLE S Final Result TAWNYA 27[address] [facility] Department [place] [address] * Urinalysis reflex to microscopic and culture Urine (09/01/2024 4:58 PM HATCHERY EMPLOYEE) Color, ur Yellow Yellow Comment:Testing performed by : [address] [address] Clarity, ur Clear Clear TAWNYA Comment:Testing performed by : [address] [address] Specific gravity, ur 1.015 1.003 - 1.030 TAWNYA Comment:Testing performed by : [address] [address] pH, urine 7.0 TAWNYA Comment: Interpretive Data U rine pH is affected by diet, medications, systemic acid-base disturbances, and renal tubular function. pH may affect urinary stone formation. For example, urine pH below 6.0 may help reduce the tendency for calcium phosphate stones and pH greater than 6.0 may reduce the tendency for uric acid stone formation. Source: [employer] Current Interpretive Data was last revised on 2017 Testing performed by: [address] [address] Protein, ur ql Negative Negative TAWNYA Comment:Testing performed by : [facility], [address] [place] [address], [place]., [address] Glucose, ur ql Negative Negative TAWNYA Comment:Testing performed by : [facility], [address] [place] [address], [place]., [address] Ketones, ur Negative Negative TAWNYA Comment:Testing performed by : [address], [place]., [address] Bilirubin, ur Negative Negative TAWNYA Comment:Testing performed by : [address], [place]., [address] Blood, ur Negative Negative TAWNYA Comment:Testing performed by : [address], [place]., [address] Urobilinogen, ur <2.0 <2.0 mg/dL TAWNYA Comment:Testing performed by : [address], [place]., [address] Nitrite, ur Negative Negative TAWNYA Comment:Testing performed by : [address], [place]., [address] Leukocyte esterase, ur Negative Negative TAWNYA Comment:Testing performed by : [address], [place]., [address] UA reflex comment Reflex conditions for microscopic UA and culture not met. TAWNYA Comment:Testing performed by : [address], [place]., [address] Urine 09/01/2024 4:58 PM [employer]ATCHERY EMPLOYEE 09/01/2024 4:59 PM HATCHERY EMPLOYEE us Wil Monteiro MD LAB MICROBIOLOGY - GENERAL ORDERABLES Final Result TAWNYA MILLS 15[address] [facility] Department [place] [address] * XR Chest 1 Vw Portable (09/01/2024 3:05 PM HATCHERY EMPLOYEE) Anatomical Region Laterality Modality Body, Chest N/A Computed Radiogr aphy 09/01/2024 3:19 PM HATCHERY EMPLOYEE Narrative 09/01/2024 3:22 PM HATCHERY EMPLOYEE EXAM DESCRIPTION: XR CHEST 1 VIEW REASON [...] Electronically signed by Robi Arreola M.D. MZ: JEANNETTE Report ID: [id number] Reading Location: [place] [address] Procedure Note Robi Arreola MD - 09/01/2024 [...] Robi Arreola M.D. MZ: MZ Report ID: [id number] Reading Location: [id number] us Wil Monteiro MD IMG XR PROCEDURES F inal Result * Troponin T high-sensitivity series (baseline, 2hr, 4hr, 6hr) (09/01/2024 2:59 PM HATCHERY EMPLOYEE) Trop T hs <6 <=14 ng/L Comment: Interpretive Data For further hscTnT resources including the diagnostic algorithm and an aid in interpretation, copy and paste this link: https://nrl.testcatalog.org/show/[email or web address] Current Interpretive Data last revised 2020. Testing performed by: [facility], [address] [place] [address]., [address] Blood 09/01/2024 2:59 PM HATCHERY EMPLOYEE 09/01/2024 3:03 PM HATCHERY EMPLOYEE us Wil Monteiro MD LAB BLOOD ORDERABLE S Final Result TAWNYA 9682 [facility] Department [place] [address] * eGFR (09/01/2024 2:59 PM HATCHERY EMPLOYEE) eGFR >90 >=60 mL/min/1. 73 m2 Comment: [...] was last reviewed 2021. Testing performed by: [address] [address] Blood 09/01/2024 2:59 PM HATCHERY EMPLOYEE 09/01/2024 3:03 PM HATCHERY EMPLOYEE us Wil Monteiro MD LAB BLOOD ORDERABLE S Final Result TAWNYA 4500 [facility] Department [place] [address] * (ABNORMAL) Differential, auto (09/01/2024 2:59 PM HATCHERY EMPLOYEE) Neutrophil abs 14.4(H) 1.5 - 6.5 K/cumm Comment:Testing performed by : [address] [address] Imm gran abs 0.2(H) 0.0 - 0.1 K/cumm TAWNYA Comment:Testing performed by : [address] [address] Lymphocyte abs 1.4 0.8 - 3.3 K/cumm TAWNYA Comment:Testing performed by : [address] [address] Monocyte abs 0.4 0.2 - 0.8 K/cumm TAWNYA Comment:Testing performed by : [address] [address] Eosinophil abs 0.0 0.0 - 0.5 K/cumm TAWNYA Comment:Testing performed by : [address] [address] Basophil abs 0.1 0.0 - 0.1 K/cumm TAWNYA Comment:Testing performed by : [address] [address] Neutrophil pct 87.3 % TAWNYA Comment: Interpretive Data Percent cell count reference ranges are not reported, since discordance with absolute values may lead to misinterpretation of CBC data. Current Interpretive Data was last revised on 2017. Testing performed by: [address] [address] Imm gran pct 0.9 % [facility] Comment: Interpretive Data Percent cell count reference ranges are not reported, since discordance with absolute values may lead to misinterpretation of CBC data. Current Interpretive Data was last revised on 2017. Testing performed by: [address] [address] Lymphocyte pct 8.7 % [facility] Comment: Interpretive Data Percent cell count reference ranges are not reported, since discordance with absolute values may lead to misinterpretation of CBC data. Current Interpretive Data was last revised on 2017. Testing performed by: [address] [address] Monocyte pct 2.7 % [facility] Comment: Interpretive Data Percent cell count reference ranges are not reported, since discordance with absolute values may lead to misinterpretation of CBC data. Current Interpretive Data was last revised on 2017. Testing performed by: [address] [address] Eosinophil pct 0.1 % [facility] Comment: Interpretive Data Percent cell count reference ranges are not reported, since discordance with absolute values may lead to misinterpretation of CBC data. Current Interpretive Data was last revised on 2017. Testing performed by: [address] [address] Basophil pct 0.3 % [facility] Comment: Interpretive Data Percent cell count reference ranges are not reported, since discordance with absolute values may lead to misinterpretation of CBC data. Current Interpretive Data was last revised on 2017. Testing performed by: [address] [address] Blood 09/01/2024 2:59 PM HATCHERY EMPLOYEE 09/01/2024 3:03 PM HATCHERY EMPLOYEE us Wil Monteiro MD LAB BLOOD ORDERABLE S Final Result Performing Organization Address City/State/[facility] Co de Phone Number [place] [id number] [place] [address] * Thyroid Function [place] (09/01/2024 2:59 PM HATCHERY EMPLOYEE) [facility] TSH 0.80 0.30 - 4.20 mcIUnit/mL Comment:Testing performed by : [address] [address] Blood 09/01/2024 2:59 PM HATCHERY EMPLOYEE 09/01/2024 3:03 PM HATCHERY EMPLOYEE us Wil Monteiro MD LAB BLOOD ORDERABLE S Final Result Performing Organization Address [facility] Co de Phone Number YA[address] [place] [address] * (ABNORMAL) CBC with auto differential (09/01/2024 2:59 PM HATCHERY EMPLOYEE) [facility] WBC 16.5(H) 3.8 - 9.9 K/cumm Comment:Testing performed by : [address] [address] Hgb 11.3(L) 11.9 - 15.5 g/dL TAWNYA Comment:Testing performed by : [address] [address] Hct 36.4 35.6 - 45.5 % TAWNYA Comment:Testing performed by : [address] [address] Plt 465(H) 150 - 400 K/cumm TAWNYA Comment:Testing performed by : [address] [address] MPV 9.0(L) 9.1 - 12.3 fL TAWNYA MILLS Comment:Testing performed by : [address] [address] RBC 4.54 3.90 - 5.20 M/cumm TAWNYA Comment:Testing performed by : [address] [address] MCV 80.2(L) 81.3 - 96.4 fL TAWNYA MILLS Comment:Testing performed by : [address], [address] MCH 24.9(L) 27.1 - 33.3 pg TAWNYA MILLS Comment:Testing performed by : [address] [address] MCHC 31.0(L) 32.3 - 35.7 g/dL TAWNYA MILLS Comment:Testing performed by : [address], [address] RDW CV 15.1(H) 11.1 - 14.9 % TAWNYA Comment:Testing performed by : [address], [address] RDW SD 44.1 35.7 - 48.1 fL TAWNYA Comment:Testing performed by : [address], [address] NRBC abs 0.00 0.00 - 0.01 K/cumm TAWNYA Comment:Testing performed by : [address], [address] Blood 09/01/2024 2:59 PM HATCHERY EMPLOYEE 09/01/2024 3:03 PM HATCHERY EMPLOYEE Wil Monteiro MD LAB BLOOD ORDERABLE S Final Result Performing Organization Address [facility] de Phone Number [facility] [address] Department [place] [address] * Magnesium (09/01/2024 2:59 PM HATCHERY EMPLOYEE) Magnesium 2.0 1.4 - 2.5 mg/dL Comment:Testing performed by : [address], [address] Blood 09/01/2024 2:59 PM HATCHERY EMPLOYEE 09/01/2024 3:03 PM HATCHERY EMPLOYEE Wil Monteiro MD LAB BLOOD ORDERABLE S Final Result Performing Organization Address City/[facility] de Phone Number TAWNYA 45[address] [facility] Department [place] [address] * Basic metabolic panel (09/01/2024 2:59 PM HATCHERY EMPLOYEE) Sodium 140 135 - 145 mmol/L Comment:Testing performed by : [facility], [address] [place] [address]., [address] Potassium, pl 4.0 3.3 - 4.9 mmol/L TAWNYA Comment:Testing performed by : [address], [place]., [address] Chloride 103 97 - 110 mmol/L TAWNYA Comment:Testing performed by : [address] [address] CO2 23 22 - 32 mmol/L TAWNYA Comment:Testing performed by : [address] [address] Anion gap 14 2 - 15 mmol/L TAWNYA Comment:Testing performed by : [address] [address] BUN 17 6 - 25 mg/dL TAWNYA Comment:Testing performed by : [address] [address] Creatinine 0.68 0.60 - 1.10 mg/dL TAWNYA Comment:Testing performed by : [address] [address] Glucose 147 70 - 199 mg/dL TAWNYA [...] was last revised 2022. Testing performed by: [address] [address] Calcium 9.3 8.5 - 10.3 mg/dL TAWNYA MILLS Comment:Testing performed by : [facility], [address] [place] [address]., [address] Blood 09/01/2024 2:59 PM HATCHERY EMPLOYEE 09/01/2024 3:03 PM HATCHERY EMPLOYEE Wil Monteiro MD LAB BLOOD ORDERABLE S Final Result TAWNYA 4500 [facility] Department [place] [address] * POCT hCG, urine (09/01/2024 2:28 PM HATCHERY EMPLOYEE) HCG, ur, POC Negative Negative Lot Number [id number] QC Backgroud Clear Acceptable QC Control Line Acceptable Urine 09/01/2024 2:28 PM HATCHERY EMPLOYEE Wil Monteiro MD POINT OF CARE TEST ORDERABLES Final Result * ECG 12 lead (09/01/2024 1:54 PM HATCHERY EMPLOYEE) Ventricular Rate EKG/Min 153 BPM [facility] Atrial Rate 153 BPM [facility] FL-Interval (MSEC) 116 ms [facility] QRS-Interval (MSEC) 88 ms [facility] QT-Interval (MSEC) 328 ms [facility] QTc 523 ms [facility] P [place] 57 degrees [facility] [place] 67 degrees [facility] T [place] 44 degrees [facility] Diagnosis Sinus tachycardia Otherwise normal ECG When compared with ECG of 20-AUG-2024 02:26, T wave inversion no longer evident in Anterior leads Confirmed by LAWRENCE YIP M.D. ([id number]) on 09/02/2024 9:10:53 AM [facility] 09/01/2024 1:54 PM HATCHERY EMPLOYEE 09/02/2024 9:10 AM HATCHERY EMPLOYEE Wil Monteiro MD ECG ORDERABLES Fin al Result [facility] * eGFR (08/22/2024 7:57 AM HATCHERY EMPLOYEE) eGFR >90 >=60 mL/min/1. 73 m2 Comment: [...] was last reviewed 2021. Testing performed by: [address] [address] Blood 08/22/2024 7:57 AM HATCHERY EMPLOYEE 08/22/2024 8:11 AM HATCHERY EMPLOYEE us José Luis Tripp MD LAB BLOOD ORDERABLES Final Re sult TAWNYA 9818 [facility] Department [place] [address] * (ABNORMAL) CBC without differential (08/22/2024 7:57 AM HATCHERY EMPLOYEE) WBC 11.8(H) 3.8 - 9.9 K/cumm Comment:Testing performed by : [address] [address] Hgb 10.4(L) 11.9 - 15.5 g/dL TAWNYA MILLS Comment:Testing performed by : [address] [address] Hct 33.4(L) 35.6 - 45.5 % TAWNYA Comment:Testing performed by : [address] [place] [address] Plt 450(H) 150 - 400 K/cumm TAWNYA Comment:Testing performed by : [address] [address] MPV 9.0(L) 9.1 - 12.3 fL TAWNYA Comment:Testing performed by : [address] [address] RBC 4.12 3.90 - 5.20 M/cumm TAWNYA Comment:Testing performed by : [address] [address] MCV 81.1(L) 81.3 - 96.4 fL TAWNYA Comment:Testing performed by : [address] [address] MCH 25.2(L) 27.1 - 33.3 pg TAWNYA Comment:Testing performed by : [address] [address] MCHC 31.1(L) 32.3 - 35.7 g/dL TAWNYA Comment:Testing performed by : [address] [address] RDW CV 15.5(H) 11.1 - 14.9 % TAWNYA Comment:Testing performed by : [address] [address] RDW SD 45.6 35.7 - 48.1 fL TAWNYA Comment:Testing performed by : [address], [address] NRBC abs 0.00 0.00 - 0.01 K/cumm TAWNYA Comment:Testing performed by : [address] [address] Blood 08/22/2024 7:57 AM HATCHERY EMPLOYEE 08/22/2024 8:11 AM HATCHERY EMPLOYEE us Jorje Huynh MD LAB BLOOD ORDERABLES Final Result TAWNYA 5[address] [facility] Department of Laboratories [place], [place] [id number] * Basic metabolic panel (08/22/2024 7:57 AM HATCHERY EMPLOYEE) Sodium 137 135 - 145 mmol/L Comment:Testing performed by : [address] [address] Potassium, pl 3.7 3.3 - 4.9 mmol/L [facility] Comment:Testing performed by : [address] [address] Chloride 103 97 - 110 mmol/L [facility] Comment:Testing performed by : [address], [place]., [address] CO2 23 22 - 32 mmol/L [facility] Comment:Testing performed by : [address] [address] Anion gap 11 2 - 15 mmol/L [facility] Comment:Testing performed by : [address] [address] BUN 16 6 - 25 mg/dL [facility] Comment:Testing performed by : [address], [place]., [address] Creatinine 0.71 0.60 - 1.10 mg/dL [facility] Comment:Testing performed by : [address] [address] Glucose 102 70 - 199 mg/dL [facility] Comment: Interpretive Data Fasting glucose >/= 126 [...] was last revised 2022. Testing performed by: [address] [address] Calcium 9.0 8.5 - 10.3 mg/dL [facility] Comment:Testing performed by : [address] [address] Blood 08/22/2024 7:57 AM HATCHERY EMPLOYEE 08/22/2024 8:11 AM HATCHERY EMPLOYEE us José Luis Tripp MD LAB BLOOD ORDERABLES Final Re sult Performing Organization Address [facility] Co de Phone Number TAWNYA [address] [place] [employer] [place] [address] * eGFR (08/21/2024 7:53 AM HATCHERY EMPLOYEE) eGFR >90 >=60 mL/min/1. 73 m2 Comment: [...] was last reviewed 2021. Testing performed by: [facility], [address] [place] [address]., [address] Blood 08/21/2024 7:53 AM HATCHERY EMPLOYEE 08/21/2024 8:14 AM HATCHERY EMPLOYEE us José Luis Tripp MD LAB BLOOD ORDERABLES Final Re sult Performing Organization Address City/[facility]/ZIP Co de Phone Number TAWNYA [address] Department [place] [address] * (ABNORMAL) CBC without differential (08/21/2024 7:53 AM HATCHERY EMPLOYEE) WBC 11.9(H) 3.8 - 9.9 K/cumm Comment:Testing performed by : [address] [address] Hgb 11.2(L) 11.9 - 15.5 g/dL TAWNYA Comment:Testing performed by : [address] [address] Hct 35.2(L) 35.6 - 45.5 % TAWNYA Comment:Testing performed by : [address] [address] Plt 481(H) 150 - 400 K/cumm [facility] Comment:Testing performed by : [address] [address] MPV 9.0(L) 9.1 - 12.3 fL TAWNYA Comment:Testing performed by : [address], [address] RBC 4.41 3.90 - 5.20 M/cumm TAWNYA Comment:Testing performed by : [address] [address] MCV 79.8(L) 81.3 - 96.4 fL [facility] Comment:Testing performed by : [address] [address] MCH 25.4(L) 27.1 - 33.3 pg [facility] Comment:Testing performed by : [address] [address] MCHC 31.8(L) 32.3 - 35.7 g/dL TAWNYA Comment:Testing performed by : [address], [address] RDW CV 15.6(H) 11.1 - 14.9 % TAWNYA Comment:Testing performed by : [address], [address] RDW SD 44.8 35.7 - 48.1 fL TAWNYA Comment:Testing performed by : [address] [address] NRBC abs 0.00 0.00 - 0.01 K/cumm TAWNYA Comment:Testing performed by : [address], [address] Blood 08/21/2024 7:53 AM HATCHERY EMPLOYEE 08/21/2024 8:15 AM HATCHERY EMPLOYEE us Jorje Huynh MD LAB BLOOD ORDERABLES Final Result TAWNYA 45[address] [facility] Department [place] [address] * Basic metabolic panel (08/21/2024 7:53 AM HATCHERY EMPLOYEE) Sodium 139 135 - 145 mmol/L Comment:Testing performed by : [address] [address] Potassium, pl 3.5 3.3 - 4.9 mmol/L TAWNYA Comment:Testing performed by : [address] [address] Chloride 102 97 - 110 mmol/L TAWNYA Comment:Testing performed by : [address] [address] CO2 23 22 - 32 mmol/L TAWNYA Comment:Testing performed by : [address] [address] Anion gap 14 2 - 15 mmol/L TAWNYA Comment:Testing performed by : [address] [address] BUN 11 6 - 25 mg/dL TAWNYA Comment:Testing performed by : [address] [address] Creatinine 0.70 0.60 - 1.10 mg/dL TAWNYA Comment:Testing performed by : [address] [address] Glucose 91 70 - 199 mg/dL TAWNYA Comment: Interpretive [...] was last revised 2022. Testing performed by: [facility], [address] [place] [address]., [address] Calcium 9.4 8.5 - 10.3 mg/dL TAWNYA MILLS Comment:Testing performed by : [facility], [address] [place] [address]., [address] Blood 08/21/2024 7:53 AM HATCHERY EMPLOYEE 08/21/2024 8:14 AM HATCHERY EMPLOYEE us José Luis Tripp MD LAB BLOOD ORDERABLES Final Re sult TAWNYA GENE [address] [facility] Department [place] [address] * FL CLOSED TX TEMPOROMANDIBULAR DISLOCATION 1ST/SBSQ (08/20/2024 1:18 PM HATCHERY EMPLOYEE) Narrative Abhay Velez MD - 08/20/2024 1:18 PM HATCHERY EMPLOYEE Abhay Velez MD 08/20/2024 1:33 PM Orthopedic Injury Treatment - Jaw Dislocation Date/Time: 08/20/2024 1:18 PM Performed by: Abhay Velez MD Authorized by: Abhay Velez MD RN Notified of Procedure: yes Informed consent: Risks, benefits, alternatives discussed and patient/sales donor 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 representative/guardian agrees and accepts Patient's stated name/ [...] Result * Procedural Sedation (08/20/2024 1:18 PM HATCHERY EMPLOYEE) Narrative Abhay Velez MD - 08/20/2024 1:18 PM HATCHERY EMPLOYEE Abhay Velez MD 08/20/2024 1:32 PM Procedural Sedation Date/Time: 08/20/2024 1:18 PM Performed by: Abhay Velez MD Authorized by: Abhay Velez MD [place] Protocol: RN Notified of Procedure: yes Informed consent: Risks, benefits, alternatives discussed and patient/sales donor recruitment representative/guardian agrees and accepts Patient's stated name/ [...] Patient tolerance: Tolerated well, no immediate complications Rehab Agustin REYES IN CLINIC/BEDSIDE ORDERABLES Fi nal Result * XR Mandible Less than 4 Views (08/20/2024 11:41 AM HATCHERY EMPLOYEE) Anatomical Region Laterality Modality Head and Neck N/A Computed Radiogr aphy 08/20/2024 11:5 5 AM HATCHERY EMPLOYEE Narrative 08/20/2024 12:02 PM HATCHERY EMPLOYEE EXAM DESCRIPTION: XR MANDIBLE LESS THAN 4 [...] Electronically signed by Rohan Ramos M.D. LB: EDGARDO Report ID: [id number] Reading Location: [id number] Procedure Note Rohan Ramos MD - 08/20/2024 [...] Electronically signed by Rohan Ramos M.D. LB: EDGARDO Report ID: [id number] Reading Location: [id number] us Jorje Huynh MD IMG XR PROCEDURES Final Re sult * Sepsis Lactate w/ Reflex (08/20/2024 8:24 AM HATCHERY EMPLOYEE) Sepsis Lactate 1.3 0.7 - 2.0 mmol/L Comment:Testing performed by : [facility], [address] [place] [address]., [address] Blood 08/20/2024 8:24 AM HATCHERY EMPLOYEE 08/20/2024 8:29 AM HATCHERY EMPLOYEE us Erik Westbrook NP LAB BLOOD ORDERABLES Final Resul t TAWNYA 10[address] [facility] Department of Laboratories [place] [id number] * (ABNORMAL) Sepsis Lactate w/ Reflex (08/20/2024 3:25 AM HATCHERY EMPLOYEE) [facility] Sepsis Lactate 2.6(C) 0.7 - 2.0 mmol/L Comment: Critical Result called to and read back by [id number], DATE: 2024-08-20 04:23:15 BY: [id number] Testing performed by: [address] [address] Blood 08/20/2024 3:25 AM HATCHERY EMPLOYEE 08/20/2024 4:00 AM HATCHERY EMPLOYEE us Erik Westbrook NP LAB BLOOD ORDERABLES Final Resul t TAWNYA 45[address] [facility] [place] [address] * eGFR (08/20/2024 3:25 AM HATCHERY EMPLOYEE) [facility] eGFR >90 >=60 mL/min/1. 73 m2 Comment: [...] was last reviewed 2021. Testing performed by: [address] [address] Blood 08/20/2024 3:25 AM HATCHERY EMPLOYEE 08/20/2024 4:00 AM HATCHERY EMPLOYEE us José Luis Tripp MD LAB BLOOD ORDERABLES Final Re sult TAWNYA 5[address] [facility] Department [place] [address] * (ABNORMAL) CBC without differential (08/20/2024 3:25 AM HATCHERY EMPLOYEE) WBC 12.4(H) 3.8 - 9.9 K/cumm Comment:Testing performed by : [address] [address] Hgb 10.3(L) 11.9 - 15.5 g/dL TAWNYA Comment:Testing performed by : [address] [address] Hct 32.7(L) 35.6 - 45.5 % TAWNYA Comment:Testing performed by : [address] [address] Plt 467(H) 150 - 400 K/cumm TAWNYA Comment:Testing performed by : [address] [address] MPV 9.1 9.1 - 12.3 fL TAWNYA Comment:Testing performed by : [address] [address] RBC 4.09 3.90 - 5.20 M/cumm TAWNYA Comment:Testing performed by : [address] [address] MCV 80.0(L) 81.3 - 96.4 fL TAWNYA Comment:Testing performed by : [address] [address] MCH 25.2(L) 27.1 - 33.3 pg TAWNYA MILLS Comment:Testing performed by : [address] [address] MCHC 31.5(L) 32.3 - 35.7 g/dL TAWNYA Comment:Testing performed by : [address] [address] RDW CV 15.1(H) 11.1 - 14.9 % TAWNYA MILLS Comment:Testing performed by : [address] [address] RDW SD 43.8 35.7 - 48.1 fL TAWNYA MILLS Comment:Testing performed by : [address] [address] NRBC abs 0.00 0.00 - 0.01 K/cumm TAWNYA MILLS Comment:Testing performed by : [address] [address] Blood 08/20/2024 3:25 AM HATCHERY EMPLOYEE 08/20/2024 4:00 AM HATCHERY EMPLOYEE us José Luis Tripp MD LAB BLOOD ORDERABLES Final Re sult TAWNYA 4500 [facility] Department [place] [address] * (ABNORMAL) Basic metabolic panel (08/20/2024 3:25 AM HATCHERY EMPLOYEE) Sodium 138 135 - 145 mmol/L Comment:Testing performed by : [address] [address] Potassium, pl 4.4 3.3 - 4.9 mmol/L TAWNYA MILLS Comment: Hemolyzed; Potassium value may be falsely elevated by as much as 1.0 mmol/L. Suggest redraw and reanalysis. Testing performed by: [address] [address] Chloride 104 97 - 110 mmol/L TAWNYA MILLS Comment:Testing performed by : [address] [address] CO2 20(L) 22 - 32 mmol/L TAWNYA MILLS Comment:Testing performed by : [address] [address] Anion gap 14 2 - 15 mmol/L TAWNYA MILLS Comment:Testing performed by : [address] [address] BUN 8 6 - 25 mg/dL TAWNYA MILLS Comment:Testing performed by : [address] [place] [address] Creatinine 0.64 0.60 - 1.10 mg/dL TAWNYA Comment:Testing performed by : [address] [address] Glucose 179 70 - 199 mg/dL TAWNYA [...] was last revised 2022. Testing performed by: [address] [address] Calcium 9.5 8.5 - 10.3 mg/dL TAWNYA Comment:Testing performed by : [address] [address] Blood 08/20/2024 3:25 AM HATCHERY EMPLOYEE 08/20/2024 4:00 AM HATCHERY EMPLOYEE us José Luis Tripp MD LAB BLOOD ORDERABLES Final Re sult [facility] [address] [facility] Department of Laboratories [place], [place] [id number] * ECG 12 lead (08/20/2024 2:26 AM HATCHERY EMPLOYEE) Ventricular Rate EKG/Min 148 BPM [facility] Atrial Rate 148 BPM [facility] FL-Interval (MSEC) 114 ms [facility] QRS-Interval (MSEC) 100 ms [facility] QT-Interval (MSEC) 336 ms [facility] QTc 527 ms [facility] [place] 51 degrees [facility] R [place] 73 degrees [facility] T [place] 35 degrees [facility] Diagnosis Sinus tachycardia Incomplete right bundle branch block Nonspecific T wave abnormality Abnormal ECG When compared with ECG of 19-AUG-2024 20:25, No significant change was found Confirmed by BELIA CHU M.D. ([id number]) on 08/21/2024 5:20:17 AM [facility] 08/20/2024 2:26 AM HATCHERY EMPLOYEE 08/21/2024 5:20 AM HATCHERY EMPLOYEE us Jorje Huynh MD ECG ORDERABLES Final Resu lt Performing Organization Address City/[facility]/ZIP Co de Phone Number [facility] * (ABNORMAL) Sepsis Lactate w/ Reflex (08/19/2024 8:52 PM HATCHERY EMPLOYEE) Pathologist [facility] Sepsis Lactate 2.4(C) 0.7 - 2.0 mmol/L Comment: Critical Result called to and read back by [email or web address], DATE: 2024-08-19 21:21:33 BY: [email or web address] Testing performed by: [facility], [address] [place] [address]., [address] Blood 08/19/2024 8:52 PM HATCHERY EMPLOYEE 08/19/2024 8:55 PM HATCHERY EMPLOYEE us Erik Westbrook NP LAB BLOOD ORDERABLES Final Resul t Performing Organization Address City/[facility] Co de Phone Number TAWNYA [address] [facility] Department of Laboratories [place], [place] [id number] * ECG 12 lead (08/19/2024 8:25 PM HATCHERY EMPLOYEE) Ventricular Rate EKG/Min 129 BPM [facility] Atrial Rate 129 BPM [facility] FL-Interval (MSEC) 138 ms [facility] QRS-Interval (MSEC) 100 ms [facility] QT-Interval (MSEC) 316 ms [facility] QTc 462 ms [facility] P [place] 55 degrees [facility] R [place] 49 degrees [facility] T [place] 46 degrees [facility] Diagnosis Sinus tachycardia Possible Left atrial enlargement Incomplete right bundle branch block Borderline ECG When compared with ECG of 21-MAY-2024 14:20, No significant change was found Confirmed by ZANE SORTO M.D. ([id number]) on 08/20/2024 11:59:01 PM [facility] 08/19/2024 8:25 PM HATCHERY EMPLOYEE 08/20/2024 11:59 PM HATCHERY EMPLOYEE Erik Westbrook NP ECG ORDERABLES Final Result [facility] * eGFR (08/19/2024 8:20 PM HATCHERY EMPLOYEE) eGFR >90 >=60 mL/min/1. 73 m2 Comment: [...] was last reviewed 2021. Testing performed by: [address] [address] Blood 08/19/2024 8:20 PM HATCHERY EMPLOYEE 08/19/2024 8:24 PM HATCHERY EMPLOYEE Erik Westbrook NP LAB BLOOD ORDERABLES Final Resul t TAWNYA [address] [facility] Department [place] [address] * (ABNORMAL) Differential, auto (08/19/2024 8:20 PM HATCHERY EMPLOYEE) Neutrophil abs 17.7(H) 1.5 - 6.5 K/cumm Comment:Testing performed by : [address] [place] [address] Imm gran abs 0.1 0.0 - 0.1 K/cumm [facility] Comment:Testing performed by : [address] [address] Lymphocyte abs 0.6(L) 0.8 - 3.3 K/cumm CERNER Comment:Testing performed by : [address] [address] Monocyte abs 0.4 0.2 - 0.8 K/cumm [facility] Comment:Testing performed by : [address] [address] Eosinophil abs 0.0 0.0 - 0.5 K/cumm [facility] Comment:Testing performed by : [address] [address] Basophil abs 0.1 0.0 - 0.1 K/cumm [facility] Comment:Testing performed by : [address] [address] Neutrophil pct 94.0 % [facility] Comment: Interpretive Data Percent cell count reference ranges are not reported, since discordance with absolute values may lead to misinterpretation of CBC data. Current Interpretive Data was last revised on 2017. Testing performed by: [address] [address] Imm gran pct 0.4 % [facility] Comment: Interpretive Data Percent cell count reference ranges are not reported, since discordance with absolute values may lead to misinterpretation of CBC data. Current Interpretive Data was last revised on 2017. Testing performed by: [address] [address] Lymphocyte pct 3.1 % [facility] Comment: Interpretive Data Percent cell count reference ranges are not reported, since discordance with absolute values may lead to misinterpretation of CBC data. Current Interpretive Data was last revised on 2017. Testing performed by: [address] [address] Monocyte pct 2.2 % [facility] Comment: Interpretive Data Percent cell count reference ranges are not reported, since discordance with absolute values may lead to misinterpretation of CBC data. Current Interpretive Data was last revised on 2017. Testing performed by: [address] [address] Eosinophil pct 0.0 % [facility]A Comment: Interpretive Data Percent cell count reference ranges are not reported, since discordance with absolute values may lead to misinterpretation of CBC data. Current Interpretive Data was last revised on 2017. Testing performed by: [address] [address] Basophil pct 0.3 % [facility]A Comment: Interpretive Data Percent cell count reference ranges are not reported, since discordance with absolute values may lead to misinterpretation of CBC data. Current Interpretive Data was last revised on 2017. Testing performed by: [address] [address] Blood 08/19/2024 8:20 PM HATCHERY EMPLOYEE 08/19/2024 8:24 PM HATCHERY EMPLOYEE us Erik Westbrook [employer]AT WR[employer] LAB BLOOD ORDERABLES Final Resul t [facility] [address] [facility] Department [place] [address] * (ABNORMAL) CBC with auto differential (08/19/2024 8:20 PM HATCHERY EMPLOYEE) WBC 18.8(H) 3.8 - 9.9 K/cumm Comment:Testing performed by : [address] [address] Hgb 10.7(L) 11.9 - 15.5 g/dL TAWNYA Comment:Testing performed by : [address] [address] Hct 33.3(L) 35.6 - 45.5 % [facility]A Comment:Testing performed by : [address] [address] Plt 502(H) 150 - 400 K/cumm TAWNYA Comment:Testing performed by : [address] [address] MPV 8.9(L) 9.1 - 12.3 fL [facility]A MILLS Comment:Testing performed by : [address] [address] RBC 4.21 3.90 - 5.20 M/cumm TAWNYA MILLS Comment:Testing performed by : [address] [address] MCV 79.1(L) 81.3 - 96.4 fL [facility]A Comment:Testing performed by : [address] [address] MCH 25.4(L) 27.1 - 33.3 pg [facility]A Comment:Testing performed by : [address] [address] MCHC 32.1(L) 32.3 - 35.7 g/dL [facility]A Comment:Testing performed by : [address] [address] RDW CV 14.9 11.1 - 14.9 % [facility]A Comment:Testing performed by : [address] [address] RDW SD 43.0 35.7 - 48.1 fL [facility]A Comment:Testing performed by : [address] [address] NRBC abs 0.00 0.00 - 0.01 K/cumm [facility]A Comment:Testing performed by : [address] [address] Blood 08/19/2024 8:20 PM HATCHERY EMPLOYEE 08/19/2024 8:24 PM HATCHERY EMPLOYEE us Erik Westbrook NP LAB BLOOD ORDERABLES Final Resul t [facility]WNYA [address] [facility] Department [place] [address] * Comprehensive metabolic panel (08/19/2024 8:20 PM HATCHERY EMPLOYEE) Sodium 140 135 - 145 mmol/L Comment:Testing performed by : [address] [address] Potassium, pl 3.5 3.3 - 4.9 mmol/L [facility] Comment:Testing performed by : [address] [address] Chloride 104 97 - 110 mmol/L [facility] Comment:Testing performed by : [address], [place]., [address] CO2 23 22 - 32 mmol/L [facility] Comment:Testing performed by : [address] [address] Anion gap 13 2 - 15 mmol/L [facility] Comment:Testing performed by : [address], [place]., [address] BUN 11 6 - 25 mg/dL [facility] Comment:Testing performed by : [address] [address] Creatinine 0.71 0.60 - 1.10 mg/dL [facility] Comment:Testing performed by : [address] [address] Glucose 136 70 - 199 mg/dL [facility] Comment: Interpretive Data Fasting glucose >/= 126 [...] was last revised 2022. Testing performed by: [address] [address] Calcium 9.2 8.5 - 10.3 mg/dL [facility] Comment:Testing performed by : [address] [address] Bilirubin, total <0.2 0.1 - 1.2 mg/dL [facility] Comment:Testing performed by : [address] [address] Protein, pl 7.5 6.5 - 8.5 g/dL [facility] Comment:Testing performed by : [address] [address] Albumin 4.4 3.5 - 5.0 g/dL [facility]A Comment:Testing performed by : [address] [address] Alk phos 74 40 - 130 Units/L [facility]A Comment:Testing performed by : [address] [address] ALT 29 7 - 45 Units/L [facility]A Comment:Testing performed by : [address] [address] AST 19 10 - 45 Units/L [facility]A Comment:Testing performed by : [address] [address] Blood 08/19/2024 8:20 PM HATCHERY EMPLOYEE 08/19/2024 8:24 PM HATCHERY EMPLOYEE us Erik Westbrook NP LAB BLOOD ORDERABLES Final Resul t [facility] [address] [facility] Department [place] [address] * Critical Care (08/19/2024 5:13 PM HATCHERY EMPLOYEE) Narrative Erik Westbrook NP - 08/19/2024 5:13 PM HATCHERY EMPLOYEE Erik Westbrook NP 08/19/2024 9:10 PM Critical [...] Final Result from Last 3 Months Insurance [employer] H[employer]/PPO Address: [address] [place] [address] [facility] CHOICE PLUS [facility] CHOICE PLUS Advance Directives For more information, please contact: [phone] * Full Code (Latest Code Status on File) Date Activated Date Inactivated Comments 09/23/2024 7:38 PM 09/24/2024 5:41 PM * Full Code Date Activated Date Inactivated Comments 09/01/2024 7:30 PM 09/05/2024 3:39 PM * Full Code Date Activated Date Inactivated Comments 08/19/2024 9:45 PM 08/22/2024 5:15 PM Care Teams Health [employer] Human Performance Professor Relationship Specialty Start Date End Date Shannan Maldonado MD PCP - General 09/07/19
--- OUTSIDE RECORDS SUMMARY | 2024-09-26 11:25 | XMS_ITS | Clinical Summary ---
Author Organization [facility] Address [address] [place] [address] Care Team Providers Care Certified Physician Assistant Name Role Phone Shannan Maldonado MD Primary Care Provider [phone] Source Comments [facility],non-[facility] Affiliates and Associated Physician Practices is amultiple site organization consisting of ambulatory clinics and hospital sitesin [place], [place], [place] and [place]. This disclosure is being madepursuant to the Care Everywhere program and may not contain all information available regarding this patient. Last updated 18.[facility] Allergies Active Allergy Reactions Criticality Noted Date Comments Adhesive Sensitivity Rash Medium 06/13/2019 Reaction: Rash, Blisters, Azithromycin 03/22/2016 Clarithromycin 03/22/2016 Duloxetine 03/22/2016 Meperidine Nausea and/or Vomiting 03/22/2016 Hydromorphone Angioedema High 02/28/2019 Medications * Be aware that medications may not be up to date on this document. Alwaysverify current medications with the patient. Medication Sig Dispensed Refills Start Date End Date Status loratadine (CLARITIN) 10 MG tablet Take 10 mg by mouth once daily Active fluticasone propionate (FLONASE) 50 MCG/ACT nasal spray [place] 2 sprays into each nostril once daily Active trimethobenzamide (TIGAN) 300 MG capsule Take 1 capsule by mouth every 6 hours as needed for Nausea/Vomiting 30 capsule 03/02/2019 Active Additional Information Patient not taking.Reported on 06/13/2019 traMADol (ULTRAM) 50 MG tablet Take 50 mg by mouth every 6 hours as needed for Pain Active Pseudoephedrine HCl (SUDAFED 24 HOUR PO) Take 1 tablet by mouth as needed Active Multiple Vitamins-Minerals (CENTRUM PO) Take 1 tablet by mouth once daily Active Cholecalciferol (VITAMIN D-3) 125 MCG (5000 UT) Take 1 tablet by mouth once daily Active Active Problems Problem Noted Date Diagnosed Date Disorder of bursae and tendons in shoulder regio n 09/05/2019 Sprain of ribs, initial encounter 09/05/2019 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 She had a particularly severe episode several years ago that required prednisone taper. Currently has been doing well on Flonase nasal spray. In the future, will have to be mindful of potential immunological flareups Abdominal pain 06/13/2019 Flatulence symptom 06/13/2019 Gastroesophageal reflux disease without esophagi tis 06/13/2019 Left hip pain 02/28/2019 Generalized anxiety disorder 03/22/2016 Irritable bowel syndrome without diarrhea 2015 Assessment & Plan (06/13/2019 10:19 AM BANK SECRECY ACT OFFICER): Would avoid high osmotic salt loads/salt tablets. Ok to just liberalize salt intake and eat banannas for potassium Postural orthostatic tachycardia syndrome 2015 Assessment & Plan (09/05/2019 10:06 AM BANK SECRECY ACT OFFICER): Her symptoms are well-controlled today. She dislocated her jaw while eating Fritos, but had it fixed and is now back to eating and drinking normally. Still consumes 2-3 L a day. I told her this needs to be increased when the hot whether arrives. Her orthostatics today demonstrate borderline orthostatic tachycardia.: Orthostatics: Supine x 5 min: BP 126 / 76 HR 92 BPM Standing x 0 m: BP 124/ 84 HR 100 BPM Standing x 1 m: BP 118/ 80 HR 116 BPM Standing x 3 m: BP 122/ 90 HR 112 BPM She is not keen on fludrocortisone for PRN water retention. That is fine as she appears to be able to drink enough on her own. She should continue to liberalize her salt intake. Assessment & Plan (06/13/2019 10:47 AM BANK SECRECY ACT OFFICER): Postural orthostatic tachycardia syndrome (POTS) is a clinically heterogeneous disorder characterized by a constellation of symptoms that include, but are not limited to, palpitations, presyncope, mental clouding, nausea, anxiety, fatigue, blurry vision, and dyspnea, after assuming an upright position and improve with recumbency. These symptoms must be accompanied by a increase in heart rate by 30 bpm in the absence of orthostatic hypotension. Additionally, this phenomenon must persist for at least three-six months in the absence of chronic conditions or medications that promote orthostatic intolerance. POTS is not a singular disease, but rather a manifestation of aforementioned signs and symptoms. The patient currently has elevated HR at 117, but HR did not elevate > 30 bpm today. I suspect this is because pt is relatively well-hydrated today. However, elevated HR at baseline in the 110's is somewhat concerning for IST, but she is asymptomatic at this time with the elevated HR. I considered starting propranolol on her, which has been used to treat POTS, but because patient is doing well, will hold off for now. There are three predominant endophenotypes of POTS and this patient's condition most resembles autonomic POTS. Autonomic POTS is an endophentype of POTS where there is preferential autonomic neuropathy in the vascular beds of the lower extremities, pelvis and splanchnic areas that promote blood pooling in these areas. The mainstay of treatment is to augment venous return from these affected areas of the body. These can be done with nonpharmacologic interventions such as using compression stockings (waist-high garments up to at least 30-40 mmHg to combat venous stasis), or maneuvers to augment venous return such as tip-toeing or leg-crossing. The patient currently is doing well with her POTS. She is walking daily as part of her exercise, which I feel like will benefit her. I have asked her further to do some recumbent biking, but to do so with low intensity as not to stress her joints/EDS. 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 Her aortic root today does not appear dilated by my view. Will await final read and call her if this is abnormal. Otherwise, q2yr echo. Assessment & Plan (06/13/2019 10:18 AM BANK SECRECY ACT OFFICER): The patient was diagnosed with EDS several years ago and has not had an echocardiogram in 2 years # will need screening echocardiogram for aorta # low intensity exercise Encounters Date Type Department Care Team Description 08/16/2024 Travel from Last 3 Months Immunizations Name Administration Dates Next Due INFLUENZA VACCINE 04/06/2019 Social History Tobacco Use Types Packs/Day Years Used Date Smoking Tobacco: Never Smokeless Tobacco: Never Alcohol Use Standard Drinks/Week Comments Yes 0 (1 standard drink = 0.6 oz pur e alcohol) rarely Sex and Gender Information Value Date Recorded Sex Assigned at Not on file Gender Identity Not on file Sexual Orientation Not on file Last Filed Vital Signs Vital Sign Reading Time Taken Comments Blood Pressure 122/90 09/05/2019 9:40 AM BANK SECRECY ACT OFFICER Pulse 112 09/05/2019 9:40 AM BANK SECRECY ACT OFFICER Temperature 36.8 C (98.2 F) 03/02/2019 7:52 AM CDT Respiratory Rate 18 03/02/2019 7:52 AM CDT Oxygen Saturation 99% 06/13/2019 8:42 AM BANK SECRECY ACT OFFICER Inhaled Oxygen Concentration - - Weight 63.5 kg (140 lb) 09/05/2019 8:22 AM BANK SECRECY ACT OFFICER Height 170.2 cm (5' 7 ) 09/05/2019 8:22 AM BANK SECRECY ACT OFFICER Body Mass Index 21.93 09/05/2019 8:22 AM BANK SECRECY ACT OFFICER Plan of Treatment Upcoming Encounters Date Type Department Care Team (Late st Contact Info) Description 11/08/2024 3:40 PM CDT Office Visit [facility] - Cardiology [address], [facility] [address] [place] [address] Javed Julio MD [address] [place] [address] Health Maintenance Due Date Last Done Comments PAP SMEAR 1991 HEPATITIS C SCREENING 05/11/2009 DTAP/TDAP/TD VACCINES (1 - Tdap) 2010 HEPATITIS B VACCINE (1 of 3 - 19+ 3-dose series) 2010 COVID-19 VACCINE (1 - 2023-2 5 season) 2024 INFLUENZA VACCINE (#1) 2024 04/06/2019 DEPRESSION SCREENING 07/03/2024 ZOSTER VACCINE (1 of 2) 2041 HIV SCREENING Completed 02/28/2019 HIB VACCINE Aged Out No longer eligi ble based on patient's age to complete this topic HPV VACCINE Aged Out No longer eligi ble based on patient's age to complete this topic MENINGOCOCCAL (Group B) VACC INE SHARED DECISION-MAKING Aged Out No longer eligibl e based on patient's age to complete this topic MENINGOCOCCAL GROUPS A/C/Y/W VACCINE Aged Out No longer eligible b ased on patient's age to complete this topic PNEUMOCOCCAL VACCINE Aged Out No long er eligible based on patient's age to complete this topic Procedures Procedure Name Priority Date/Time Associated Diagnosis Comments HIV-1 HIV-2 ANTIGEN/ANTIBODY STAT 02/28/2019 1:57 PM CDT from Last 3 Months or Most Recently Relevant to Health Maintenance Results * HIV-1 HIV-2 ANTIGEN/ANTIBODY (02/28/2019 1:57 PM CDT) HIV Antigen/Antibod y 1 & 2 Non-reacti ve Non-react hayder 02/28/2019 4:05 PM CDT [facility] Comment: Neither HIV-1 p24 Antigen nor HIV-1/HIV-2 Antibodies are detected. Blood BLOOD SPECIMEN / Unknown Venipuncture / Unknown 02/28/2019 1:57 PM CDT 02/28/2019 3:22 PM CDT Abel Barrientos MD LAB - HEMATOLOGY ORD ERABLES [address] [phone] from Last 3 Months or Most Recently Relevant to Health Maintenance Advance Directives * Full Code (Latest Code Status on File) Date Activated Date Inactivated Comments 02/28/2019 11:41 PM 03/02/2019 12:34 PM * Full Code Date Activated Date Inactivated Comments 02/28/2019 8:46 PM 02/28/2019 11:41 PM Care Teams Certified Physician Assistant Relationship Specialty Start Date End Date Shannan Maldonado MD [address] [place] [address] PCP - General Family Medicine 03/22/16
--- OUTSIDE RECORDS SUMMARY | 2024-09-26 11:25 | XMS_ITS | Clinical Summary ---
Author Organization [facility] Address [address] [place] [address] Care Team Providers Care Rough Rice Tender Name Role Phone Shannan Maldonado MD Primary Care Provider [phone] Celio Jacques MD Unavailable Allergies Active Allergy Reactions Criticality Noted Date Comments Clarithromycin Vomiting 01/13/2020 Duloxetine Hcl Other (see comment) 01/13/2020 adverse reaction Meperidine Vomiting 01/13/2020 Hydromorphone Hives,Itching 01/13/2020 Hydrocodone Hives,Itching 01/13/2020 Lorazepam Other (see comment) 02/09/2024 Weird out of body Nuts Anaphylaxis High 03/17/2022 Ondansetron Prolonged QT 03/14/2023 Peanut (Diagnostic) Anaphylaxis High 03/17/2022 Peanut Butter Flavoring Agent (Non-Screening) Angioedema High 10/24/2021 Azithromycin GI Upset 01/13/2020 Medications metoclopramide (REGLAN) 10 MG tablet Take 1 tablet (10 mg total) by mouth every 6 (six) hours as needed (nausea). 01/11/2022 Active traZODone (DESYREL) 50 MG tablet Take 1 tablet (50 mg total) by mouth nightly as needed for Sleep. 02/13/2022 Active cyclobenzaprine (FLEXERIL) 10 MG tablet Take 1 tablet (10 mg total) by mouth 3 (three) times daily as needed for Muscle Spasms. 09/19/2021 Active melatonin 3 MG tablet Take 1 tablet (3 mg total) by mouth nightly as needed (sleep). Active aspirin-acetami nophen-caffeine (EXCEDRIN MIGRAINE) 250-250-65 MG tablet Take 1 tablet by mouth every 6 (six) hours as needed for Pain (migraine). Active omalizumab (XOLAIR) 150 MG injection Inject 1.2 mLs (150 mg total) into the skin every 14 (fourteen) days. Active EPINEPHRINE, ANAPHYLAXIS, IJ ONCE 12/15/2021 Act hayder cetirizine (ZYRTEC ALLERGY) 10 MG tablet Take 1 tablet (10 mg total) by mouth every 12 (twelve) hours. Active famotidine (PEPCID) 40 MG tablet Take 1 tablet (40 mg total) by mouth 2 (two) times daily. Active triamcinolone (KENALOG) 0.1 % paste Place onto teeth 2 (two) times daily. Active prochlorperazin e (COMPAZINE) 10 MG tablet Take 1 tablet (10 mg total) by mouth every 6 (six) hours as needed. Active diazePAM (VALIUM) 5 MG tablet Take 1 tablet (5 mg total) by mouth every 6 (six) hours as needed for Anxiety or Muscle Spasms. Active vitamin C (ASCORBIC ACID) 250 MG tablet Take 1 tablet (250 mg total) by mouth daily. Active oxyCODONE-aceta minophen (PERCOCET) 10-325 MG tabletIndicatio ns:Acute Pain < 7 Day Supply Take 1 tablet by mouth every 4 (four) hours as needed for Pain. Indications: Acute Pain < 7 Day Supply 30 tablet 02/16/2024 Active Active Problems No known active problems Social History Tobacco Use Types Packs/Day Years Used Date Smoking Tobacco: Never Smokeless Tobacco: Never Alcohol Use Standard Drinks/Week Comments Not Currently 0 (1 standard drink = 0.6 oz pur e alcohol) Comments No Sex and Gender Information Value Date Recorded Sex Assigned at Not on file Legal Sex Female 7:14 PM CDT Gender Identity Not on file Sexual Orientation Not on file Last Filed Vital Signs Vital Sign Reading Time Taken Comments Blood Pressure 121/92 02/16/2024 1:05 PM CDT Pulse 90 02/16/2024 1:05 PM CDT Temperature 37.1 C (98.8 F) 02/16/2024 1:05 PM CDT Respiratory Rate 18 02/16/2024 1:05 PM CDT Oxygen Saturation 100% 02/16/2024 1:05 PM CDT Inhaled Oxygen Concentration - - Weight 87 kg (191 lb 12.8 oz) 02/16/2024 9:40 AM CDT Height 170.2 cm (5' 7 ) 02/16/2024 9:40 AM CDT Body Mass Index 30.04 02/16/2024 9:40 AM CDT Plan of Treatment Health Maintenance Due Date Last Done Comments Cervical Cancer Screening Pap Smear (Age 30 to 64) Every 3 Years 1991 Annual Physical 1994 Hepatitis C 2009 Hepatitis B Vaccines (1 of 3 - 19+ 3-dose series) 2010 Cervical Cancer Screening Pap with HPV Testing (Age 30 to 64) Every 5 Years 2021 Cervical Cancer Screening with HPV 2021 COVID-19 Vaccine ( season) 2024 10/07/2021, 03/30/2021, 09/23/2020, Additional history exists Influenza Adult (#1) 2024 05/05/2021, 04/26/2019, 04/06/2019, Additional history exists DTaP, Tdap and Td Vaccines (2 - Td or Tdap) 07/10/2027 07/10/2017 Pneumococcal Vaccine: Pediatrics (0 to 5 Years) and At-Risk Patients (6 to 64 Years) Aged Out 02/25/2020 No longer eligible based on patient's age to complete this topic HPV Vaccines Aged Out No longer eligi ble based on patient's age to complete this topic Meningococcal B Vaccine Aged Out No l onger eligible based on patient's age to complete this topic Meningococcal Vaccine Aged Out No enedina shannen eligible based on patient's age to complete this topic RSV Immunizations Under 20 Months Aged Out No longer eligible based on patient's age to complete this topic Medical Devices Implanted Type [employer] Project Engineer Device Identifier Shelf Expiration Date Model / Serial / Lot Staple Bone [id number] m 2m - [id number] Implanted:Qty: 1 on 02/16/2024 by Pranay Dejesus DPM at [facility] Sheila'DANG Edwards Right: Foot [employer]STELLE 06/01/2027 [id number] / / [id number] Wire Ba .045in 4in - [id number] Implanted:Qty: 1 on 03/17/2023 by Pranay Dejesus DPM at [facility] Monique Right: Toe [employer] [id number] / / Description:Right second toe Insurance [facility] Care Teams Rough Rice Tender Relationship Specialty Start Date End Date Shannan Maldonado MD PCP - General 05/06/16 Celio Jacques MD [address] [facility] [address] [place] [address] CARDIOLOGY 03/14/23
--- OUTSIDE RECORDS SUMMARY | 2024-09-26 11:25 | XMS_ITS | Continuity of Care Document ---
Author Organization [facility] Address [address] [place] [address] Phone Care Team Providers Care Financial Institution Branch Manager Name Role Phone Manuel Anthony MD Unavailable Unavailable Allergies, Adverse Reactions, Alerts Substance Reaction Status Criticality clarithromycin throat swelling Active No Informa tion azithromycin Emesis, cramping, diarrhea Active N o Information Medications Medication Instructions Dosage Effective Dates (start - stop) Status Comments prednisone 5 mg tablet take 2 tablet by oral route every day 2 tablet - Active omeprazole 20 mg tablet,delayed release 1 tablet by mouth 1 hour before a meal once daily - Active cetirizine 10 mg tablet take 1 tablet by oral route twice daily - Active EpiPen 0.3 mg/0.3 mL (1:1,000) injection,auto-injec tor inject dose (0.3MG) intramuscularly into thigh once then call 911 as needed - Active Please fill with [facility] diphenhydramine 50 mg tablet take 1 tablet by oral route as needed for itching or swelling - Active tramadol 50 mg tablet take 1 tablet by oral route every 6 hours as needed 50 MG - Active Gracie 3 mg-0.03 mg tablet take 1 tablet by oral route every day 1.00 tablet - Active Align 4 mg capsule - Active Procedures Procedure Date ASP/INJ MAJOR JOINTOR BURSA, SHOULDER, H IP,KNEE W/O US GUIDANCE SURGICAL TRAY LOW OSMOLAR CONTRAST (200 TO 299 MG IODI NE) Advance Directives Directive Yes / No Effective Date File Name No Information Encounters Encounter Description Practice Location Reason(s) For Visit Diagnoses Date Provider Providers Copied on Encounter [facility], [address], [place], [place], [id number] , [place] tel: [phone] [facility] No Information 2 Gabrielle Jackson. [address] , [place], [place], [address] , [place]. tel: [phone] Referring Provider: Lazarus Blandon, [address], [place], [address]. tel:[phone] [facility], [address], [place], [place], [address] , [place] tel: [phone] [facility] No Information 6 Lawson [address]ai. [address] [place] [address], [id number] , [place]. tel: [phone] [facility], [address], [place], [place], [address] , [place] tel: [phone] [facility] Abdominal pain, unspecified abdominal locationGastroesop hageal reflux disease without esophagitisFlatule nce symptomIrritable bowel syndrome without diarrhea 6 Aida Nava. [address] [facility], [address], [place], [place], [id number] , [place]. tel: [phone] Referring Provider: Shannan Maldonado, [address], [place], [address]. tel:[phone] [facility], [address], [place], [place], [address] , [place] tel: [phone] [facility] No Information 5 Lawson Cai. [address], [id number] , [place]. tel: [phone] [facility], [address], [place], [place], [address] , [place] tel: [phone] [facility] Anaphylaxis, initial encounter Lawson Cai. [address], [id number] , [place]. tel: [phone] [facility], [address], [place], [place], [address] , tel: [phone] [facility] Anaphylaxis, initial encounter Lawson Cai. [address], [id number] , [place]. tel: [phone] [facility], [address], [place], [place], [address] , tel: [phone] [facility] Anaphylaxis, initial encounter Lawson Cai. [address], [id number] , [place]. tel: [phone] Referring Provider: Shannan Maldonado [address] [place], [address]. tel:[phone] Family History Family Member Type Diagnosis Age At Onset No Information Payers Payer name Insurance type Covered republican ID Herminia cervantes(s) SANYA PASTRANA CI [id number] Social History Type Description Quantity Date Captured [...]
--- OUTSIDE RECORDS SUMMARY | 2024-09-26 12:49 | XMS_ITS | Continuity of Care Document ---
Author Organization [facility] Address [address] [facility] [address] [place] [address] Phone Care Team Providers Care Cloth Washer Operator Name Role Phone No Information Unavailable Unavailable Advance Directives Directive Yes / No Effective Date File Name No Information Encounters Encounter Description Practice Location Reason(s) For Visit Diagnoses Date Provider Providers Copied on Encounter [facility], [address] [facility] [address], [place], [place], [id number], [place] tel:[phone] [facility] No Information No Information Family History Family Member Type Diagnosis Age At Onset No Information Payers Payer name Insurance type Covered constitution party ID Authoriza tion(s) No Information Social History [...]
--- OUTSIDE RECORDS SUMMARY | 2024-09-26 12:49 | XMS_ITS | Referral Summary ---
Author Organization [facility] Geena Hernandez Extdamian nsion Address [address] [facility] [place] [address] Care Team Providers Care Infant Caregiver Name Role Phone Shannan Maldonado MD Primary Care Provider [phone] Encounters Date Type Department Care Team Description 09/23/2024 4:55 PM CDT - 09/24/2024 1:30 PM CDT Hospital Encounter [place] [address] [address] [place] [address] Samuel Bowen MD Winston, Jared Todd, MD Ali, Md Shahin, MD Allergic reaction, initial encounter (Primary Dx) Discharge Disposition: Discharge to home or self care 09/01/2024 2:02 PM GRAPHICS PRODUCTION SPECIALIST - 09/05/2024 11:38 AM GRAPHICS PRODUCTION SPECIALIST Hospital Encounter [place] [address] [address] [place] [address] Wil Monteiro MD Gaspe Mudiyanselage, Nilupa Sewwandi, MD Smith, Thomas Hamilton, MD Allergic reaction, initial encounter (Primary Dx) Discharge Disposition: Discharge to home or self care 08/19/2024 4:39 PM GRAPHICS PRODUCTION SPECIALIST - 08/22/2024 1:15 PM GRAPHICS PRODUCTION SPECIALIST Hospital Encounter [facility] [address] [place] [id number] José Luis Tripp MD Winston, Jared Todd, [...] drink = 0.6 oz pur e alcohol) Take5ities Answer Date Recorded In the past 12 months has [employer], gas, oil, or water [employer] threatened to shut off services in your [...] week 09/24/2024 How often do you attend [facility] or mandaeism services? Never 09/24/2024 Do you belong to any clubs o r organizations such as zoroastrianism groups, unions, fraternal or athletic groups, or [...] any time in the past 12 [address] [facility] [place], were you homeless or living in a skilled nursing (including now)? No 09/24/2024 Personal Safety Answer Date Recorded Have you ever been in or are you currently in a harmful physical or emotional relationship or is someone making you feel afraid or unsafe? Denies 09/23/2024 Comments No Sex and Gender Information Value Date Recorded Sex Assigned at Not on file Legal Sex Female 1:34 AM GRAPHICS PRODUCTION SPECIALIST Gender Identity Female 07/01/2022 7:31 PM GRAPHICS PRODUCTION SPECIALIST Sexual Orientation Not on file Last Filed [...] cm (5' 7 ) 09/01/2024 9:23 PM GRAPHICS PRODUCTION SPECIALIST Body Mass Index 31.11 09/01/2024 9:23 PM GRAPHICS PRODUCTION SPECIALIST Plan of Treatment Not on file Procedures Procedure Name Priority Date/Time Associated Diagnosis Comments EGFR Routine 09/24/2024 3:43 AM CDT DIFFERENTIAL AUTO Routine 09/24/2024 3:4 3 AM CDT BASIC METABOLIC PANEL Routine 09/24/2024 3:43 AM CDT CBC WITH AUTO DIFFERENTIAL Routine 09/24/2024 3:43 AM CDT XR MANDIBLE 4 OR MORE VIEWS Critical/Life- Threatening 09/23/2024 8:29 PM CDT [place] CLOSED [place] STERNOCLAVICULAR DISLC W/MANIPULATION Routine 09/23/2024 [...] CBC WITHOUT DIFFERENTIAL Routine 025 4:27 AM GRAPHICS PRODUCTION SPECIALIST CBC WITHOUT DIFFERENTIAL Routine 025 4:25 AM GRAPHICS PRODUCTION SPECIALIST TROPONIN T HIGH-SENSITIVITY 2-HOUR Timed 09/01/2024 5:11 PM GRAPHICS PRODUCTION SPECIALIST URINALYSIS AND REFLEX TO MICROSCOPIC AND CULTURE STAT 09/01/2024 4:58 PM GRAPHICS PRODUCTION SPECIALIST XR CHEST 1 VIEW ED 09/01/2024 3:05 PM GRAPHICS PRODUCTION SPECIALIST EGFR STAT 09/01/2024 2:59 PM GRAPHICS PRODUCTION SPECIALIST DIFFERENTIAL AUTO STAT 09/01/2024 2:5 9 PM GRAPHICS PRODUCTION SPECIALIST MAGNESIUM STAT 09/01/2024 2:59 PM GRAPHICS PRODUCTION SPECIALIST THYROID FUNCTION CASCADE STAT 025 2:59 PM GRAPHICS PRODUCTION SPECIALIST TROPONIN T HIGH-SENSITIVITY SERIES (BASELINE, 2HR, 4HR, 6HR) STAT 09/01/2024 2:59 PM GRAPHICS PRODUCTION SPECIALIST BASIC METABOLIC PANEL STAT 09/01/2024 2:59 PM GRAPHICS PRODUCTION SPECIALIST CBC WITH AUTO DIFFERENTIAL STAT 09/01/2024 2:59 PM GRAPHICS PRODUCTION SPECIALIST POCT HCG, URINE Routine 09/01/2024 2:28 PM GRAPHICS PRODUCTION SPECIALIST ECG 12-LEAD Routine 09/01/2024 1:54 PM GRAPHICS PRODUCTION SPECIALIST EGFR Routine 08/22/2024 7:57 AM GRAPHICS PRODUCTION SPECIALIST CBC WITHOUT DIFFERENTIAL Routine 025 7:57 AM GRAPHICS PRODUCTION SPECIALIST BASIC METABOLIC PANEL Routine 08/22/2024 7:57 AM GRAPHICS PRODUCTION SPECIALIST EGFR Routine 08/21/2024 7:53 AM GRAPHICS PRODUCTION SPECIALIST CBC WITHOUT DIFFERENTIAL Routine 025 7:53 AM GRAPHICS PRODUCTION SPECIALIST BASIC METABOLIC PANEL Routine 08/21/2024 7:53 AM GRAPHICS PRODUCTION SPECIALIST [place] CLOSED TX TEMPOROMANDIBULAR DISLOCATION 1ST/SBSQ Routine 08/20/2024 1:18 PM GRAPHICS PRODUCTION SPECIALIST ED MODERATE SEDATION Routine 08/20/2024 1:18 PM GRAPHICS PRODUCTION SPECIALIST XR MANDIBLE LESS THAN 4 VIEWS Critical/Life- Threatening 08/20/2024 11:41 AM GRAPHICS PRODUCTION SPECIALIST SEPSIS LACTATE WITH REFLEX Timed 08/20/2024 8:24 AM GRAPHICS PRODUCTION SPECIALIST EGFR Routine 08/20/2024 3:25 AM GRAPHICS PRODUCTION SPECIALIST CBC WITHOUT DIFFERENTIAL Routine 025 3:25 AM GRAPHICS PRODUCTION SPECIALIST BASIC METABOLIC PANEL Routine 08/20/2024 3:25 AM GRAPHICS PRODUCTION SPECIALIST SEPSIS LACTATE WITH REFLEX Timed 08/20/2024 3:25 AM GRAPHICS PRODUCTION SPECIALIST ECG 12-LEAD Routine 08/20/2024 2:26 AM GRAPHICS PRODUCTION SPECIALIST SEPSIS LACTATE WITH REFLEX STAT 08/19/2024 8:52 PM GRAPHICS PRODUCTION SPECIALIST ECG 12-LEAD STAT 08/19/2024 8:25 PM GRAPHICS PRODUCTION SPECIALIST EGFR STAT 08/19/2024 8:20 PM GRAPHICS PRODUCTION SPECIALIST DIFFERENTIAL AUTO STAT 08/19/2024 8:2 0 PM GRAPHICS PRODUCTION SPECIALIST CBC WITH AUTO DIFFERENTIAL STAT 08/19/2024 8:20 PM GRAPHICS PRODUCTION SPECIALIST COMPREHENSIVE METABOLIC PANEL STAT 08/19/2024 8:20 PM GRAPHICS PRODUCTION SPECIALIST ED CRITICAL CARE Routine 08/19/2024 5:13 PM GRAPHICS PRODUCTION SPECIALIST from Last 3 Months Results * eGFR [...] was last reviewed 2021. Testing performed by: [address] [address] Blood 09/24/2024 3:43 AM CDT 09/24/2024 4:47 AM CDT us Dariela Cortez NP LAB BLOOD ORDERABLES Final R esult [facility] [address] [facility] [place] [address] * (ABNORMAL) Differential, auto (09/24/2024 3:43 AM CDT) Neutrophil abs 9.1(H) 1.5 - 6.5 K/cumm Comment:Testing performed by : [address] [address] Imm gran abs 0.0 0.0 - 0.1 K/cumm [facility] Comment:Testing performed by : [facility], [address] [place] [address]., [address] Lymphocyte abs 0.7(L) 0.8 - 3.3 K/cumm [facility] Comment:Testing performed by : [address] [address] Monocyte abs 0.3 0.2 - 0.8 K/cumm [facility] Comment:Testing performed by : [address] [address] Eosinophil abs 0.0 0.0 - 0.5 K/cumm [facility] Comment:Testing performed by : [address] [address] Basophil abs 0.0 0.0 - 0.1 K/cumm [facility] Comment:Testing performed by : [address] [address] Neutrophil pct 89.5 % [facility] Comment: Interpretive Data Percent cell count reference ranges are not reported, since discordance with absolute values may lead to misinterpretation of CBC data. Current Interpretive Data was last revised on 2017. Testing performed by: [address] [address] Imm gran pct 0.3 % [facility] Comment: Interpretive Data Percent cell count reference ranges are not reported, since discordance with absolute values may lead to misinterpretation of CBC data. Current Interpretive Data was last revised on 2017. Testing performed by: [address] [address] Lymphocyte pct 6.9 % [facility] Comment: Interpretive Data Percent cell count reference ranges are not reported, since discordance with absolute values may lead to misinterpretation of CBC data. Current Interpretive Data was last revised on 2017. Testing performed by: [address] [address] Monocyte pct 3.1 % [facility] Comment: Interpretive Data Percent cell count reference ranges are not reported, since discordance with absolute values may lead to misinterpretation of CBC data. Current Interpretive Data was last revised on 2017. Testing performed by: [address] [place]., [address] Eosinophil pct 0.0 % [facility] Comment: Interpretive Data Percent cell count reference ranges are not reported, since discordance with absolute values may lead to misinterpretation of CBC data. Current Interpretive Data was last revised on 2017. Testing performed by: [address] [address] Basophil pct 0.2 % [facility] Comment: Interpretive Data Percent cell count reference ranges are not reported, since discordance with absolute values may lead to misinterpretation of CBC data. Current Interpretive Data was last revised on 2017. Testing performed by: [address] [address] Blood 09/24/2024 3:43 AM CDT 09/24/2024 4:50 AM CDT us Dariela Cortez SET UP OPERATOR TOOL LAB BLOOD ORDERABLES Final R esult [facility] [address] [place] [address] * (ABNORMAL) CBC with auto differential (09/24/2024 3:43 AM CDT) WBC 10.2(H) 3.8 - 9.9 K/cumm Comment:Testing performed by : [address] [address] Hgb 10.5(L) 11.9 - 15.5 g/dL [facility] Comment:Testing performed by : [address] [address] Hct 34.2(L) 35.6 - 45.5 % [facility] Comment:Testing performed by : [address] [address] Plt 418(H) 150 - 400 K/cumm [facility] Comment:Testing performed by : [address] [address] MPV 9.7 9.1 - 12.3 fL [facility] Comment:Testing performed by : [address] [address] RBC 4.17 3.90 - 5.20 M/cumm [facility] Comment:Testing performed by : [address] [address] MCV 82.0 81.3 - 96.4 fL [facility] Comment:Testing performed by : [address] [address] MCH 25.2(L) 27.1 - 33.3 pg [facility] Comment:Testing performed by : [address] [address] MCHC 30.7(L) 32.3 - 35.7 g/dL [facility] Comment:Testing performed by : [address] [address] RDW CV 15.6(H) 11.1 - 14.9 % [facility] Comment:Testing performed by : [address], [address] RDW SD 46.4 35.7 - 48.1 fL [facility] Comment:Testing performed by : [address] [address] NRBC abs 0.00 0.00 - 0.01 K/cumm [facility] Comment:Testing performed by : [address] [address] Blood 09/24/2024 3:43 AM CDT 09/24/2024 4:50 AM CDT Dariela Cortez SET UP OPERATOR TOOL LAB BLOOD ORDERABLES Final R esult [facility] [address] [facility] [place] [address] * (ABNORMAL) Basic metabolic panel (09/24/2024 3:43 AM CDT) Pathologist [facility] Sodium 138 135 - 145 mmol/L Comment:Testing performed by : [address], [address] Potassium, pl 4.2 3.3 - 4.9 mmol/L [facility] Comment:Testing performed by : [address] [address] Chloride 107 97 - 110 mmol/L [facility] Comment:Testing performed by : [address] [address] CO2 21(L) 22 - 32 mmol/L [facility] Comment:Testing performed by : [address] [address] Anion gap 10 2 - 15 mmol/L [facility] Comment:Testing performed by : [address] [address] BUN 10 6 - 25 mg/dL [facility] Comment:Testing performed by : [address] [address] Creatinine 0.71 0.60 - 1.10 mg/dL [facility] Comment:Testing performed by : [address] [address] Glucose 145 70 - 199 mg/dL [facility] [...] was last revised 2022. Testing performed by: [address] [address] Calcium 9.7 8.5 - 10.3 mg/dL [facility] Comment:Testing performed by : [address] [address] Blood 09/24/2024 3:43 AM CDT 09/24/2024 4:47 AM CDT us Dariela Cortez NP LAB BLOOD ORDERABLES Final R esult [facility] [address] [place] [address] * XR Mandible 4 or More Views [...] signed by Arnold GRAHAM: GLADYS Report ID: [id number] Reading Location: [id number] Procedure Note Arnold Chahal MD - 09/23/2024 [...] signed by Arnold GRAHAM: GLADYS Report ID: [id number] Reading Location: [id number] Darian Goode MD IMG XR PROCEDURES Fi nal Result * [place] CLOSED TX STERNOCLAVICULAR DISLC W/MANIPULATION (09/23/2024 7:35 [...] signed by Arnold GRAHAM: GLADYS Report ID: [id number] Reading Location: [id number] Procedure Note Arnold Chahal MD - 09/23/2024 [...] Arnold Chahal M.D. KH: GLADYS Report ID: [id number] Reading Location: [id number] us Jorje Huynh MD IMG XR PROCEDURES [...] López Mcclellan M.D. MM: MM Report ID: [id number] Reading Location: [place] [address] Procedure Note López Mcclellan MD - 09/23/2024 [...] López Mcclellan M.D. MM: MM Report ID: [id number] Reading Location: [place] [address] Samuel Bowen MD IMG XR PROCEDURES F inal Result * ECG 12 lead (09/23/2024 4:46 PM CDT) Ventricular Rate EKG/Min 146 BPM [facility] Atrial Rate 292 BPM [facility] QRS-Interval (MSEC) 98 ms [facility] QT-Interval (MSEC) 350 ms [facility] QTc 545 ms [facility] R [place] 58 degrees [facility] T [place] 50 degrees [facility] Diagnosis Sinus tachycardia Incomplete right bundle branch block T-wave changes When compared with ECG of 01-SEP-2024 13:54, No significant change Confirmed by SULTAN ZUNIGA M.D. ([id number]) on 09/23/2024 9:49:04 PM [facility] 09/23/2024 4:46 PM CDT 09/23/2024 9:49 PM CDT us Samuel Bowen MD ECG ORDERABLES Fin al Result [facility] * eGFR (09/23/2024 4:27 PM CDT) eGFR [...] was last reviewed 2021. Testing performed by: [address] [address] Blood 09/23/2024 4:27 PM CDT 09/23/2024 4:39 PM CDT us Deisy MARQUEZ LAB BLOOD ORDERABLES Final Resu lt [facility] [address] [facility] [place] [address] * (ABNORMAL) Differential, auto (09/23/2024 4:27 PM CDT) Neutrophil abs 7.2(H) 1.5 - 6.5 K/cumm Comment:Testing performed by : [address] [address] Imm gran abs 0.0 0.0 - 0.1 K/cumm [facility] Comment:Testing performed by : [address] [address] Lymphocyte abs 2.4 0.8 - 3.3 K/cumm CERNER Comment:Testing performed by : [address] [address] Monocyte abs 0.8 0.2 - 0.8 K/cumm [facility] Comment:Testing performed by : [address] [address] Eosinophil abs 0.1 0.0 - 0.5 K/cumm [facility] Comment:Testing performed by : [address] [address] Basophil abs 0.1 0.0 - 0.1 K/cumm [facility] Comment:Testing performed by : [address] [address] Neutrophil pct 68.6 % [facility] Comment: Interpretive Data Percent cell count reference ranges are not reported, since discordance with absolute values may lead to misinterpretation of CBC data. Current Interpretive Data was last revised on 2017. Testing performed by: [address] [address] Imm gran pct 0.4 % [facility] Comment: Interpretive Data Percent cell count reference ranges are not reported, since discordance with absolute values may lead to misinterpretation of CBC data. Current Interpretive Data was last revised on 2017. Testing performed by: [address] [address] Lymphocyte pct 22.5 % C[facility] Comment: Interpretive Data Percent cell count reference ranges are not reported, since discordance with absolute values may lead to misinterpretation of CBC data. Current Interpretive Data was last revised on 2017. Testing performed by: [address] [address] Monocyte pct 7.1 % [facility] Comment: Interpretive Data Percent cell count reference ranges are not reported, since discordance with absolute values may lead to misinterpretation of CBC data. Current Interpretive Data was last revised on 2017. Testing performed by: [address] [address] Eosinophil pct 0.7 % [facility] Comment: Interpretive Data Percent cell count reference ranges are not reported, since discordance with absolute values may lead to misinterpretation of CBC data. Current Interpretive Data was last revised on 2017. Testing performed by: [address] [address] Basophil pct 0.7 % [facility] Comment: Interpretive Data Percent cell count reference ranges are not reported, since discordance with absolute values may lead to misinterpretation of CBC data. Current Interpretive Data was last revised on 2017. Testing performed by: [address] [address] Blood 09/23/2024 4:27 PM CDT 09/23/2024 4:39 PM CDT us Samuel Bowen MD LAB BLOOD ORDERABLE S Final Result [facility] Department of Laboratories [place], [place] [id number] * (ABNORMAL) CBC with auto differential (09/23/2024 4:27 PM CDT) WBC 10.5(H) 3.8 - 9.9 K/cumm Comment:Testing performed by : [address] [address] Hgb 11.9 11.9 - 15.5 g/dL [facility] Comment:Testing performed by : [address] [address] Hct 40.4 35.6 - 45.5 % [facility] Comment:Testing performed by : [address] [address] Plt 517(H) 150 - 400 K/cumm [facility] Comment:Testing performed by : [address] [address] MPV 9.3 9.1 - 12.3 fL [facility] Comment:Testing performed by : [address] [address] RBC 4.93 3.90 - 5.20 M/cumm [facility] Comment:Testing performed by : [address] [address] MCV 81.9 81.3 - 96.4 fL [facility] Comment:Testing performed by : [address] [address] MCH 24.1(L) 27.1 - 33.3 pg [facility] Comment:Testing performed by : [address] [address] MCHC 29.5(L) 32.3 - 35.7 g/dL [facility] Comment:Testing performed by : [address] [address] RDW CV 15.6(H) 11.1 - 14.9 % [facility] Comment:Testing performed by : [address] [address] RDW SD 46.5 35.7 - 48.1 fL [facility] Comment:Testing performed by : [address] [address] NRBC abs 0.00 0.00 - 0.01 K/cumm [facility] Comment:Testing performed by : [address] [address] Blood 09/23/2024 4:27 PM CDT 09/23/2024 4:39 PM CDT us Samuel Bowen MD LAB BLOOD ORDERABLE S Final Result [facility] [place] [address] * Comprehensive metabolic panel (09/23/2024 4:27 PM CDT) Pathologist [facility] Sodium 141 135 - 145 mmol/L Comment:Testing performed by : [address] [address] Potassium, pl 3.3 3.3 - 4.9 mmol/L [facility] Comment:Testing performed by : [address] [address] Chloride 104 97 - 110 mmol/L [facility] Comment:Testing performed by : [address], [place]., [address] CO2 22 22 - 32 mmol/L [facility] Comment:Testing performed by : [address], [place]., [address] Anion gap 15 2 - 15 mmol/L [facility] Comment:Testing performed by : [address], [place]., [address] BUN 11 6 - 25 mg/dL [facility] Comment:Testing performed by : [address], [place]., [address] Creatinine 0.89 0.60 - 1.10 mg/dL [facility] Comment:Testing performed by : [address] [address] Glucose 153 70 - 199 mg/dL [facility] [...] was last revised 2022. Testing performed by: [address] [address] Calcium 9.9 8.5 - 10.3 mg/dL [facility] Comment:Testing performed by : [address] [address] Bilirubin, total <0.2 0.1 - 1.2 mg/dL [facility] Comment:Testing performed by : [address], [place]., [address] Protein, pl 8.0 6.5 - 8.5 g/dL [facility] Comment:Testing performed by : [address] [place]., [address] Albumin 4.6 3.5 - 5.0 g/dL [facility] Comment:Testing performed by : [address] [address] Alk phos 84 40 - 130 Units/L [facility] Comment:Testing performed by : [address] [address] ALT 42 7 - 45 Units/L [facility] Comment:Testing performed by : [address] [address] AST 27 10 - 45 Units/L [facility] Comment:Testing performed by : [address] [address] Blood 09/23/2024 4:27 PM CDT 09/23/2024 4:39 PM CDT us Samuel Bowen MD LAB BLOOD ORDERABLE S Final Result [facility] [address] [facility] [place] [address] * (ABNORMAL) CBC without differential (09/05/2024 4:27 AM GRAPHICS PRODUCTION SPECIALIST) WBC 14.9(H) 3.8 - 9.9 K/cumm Comment:Testing performed by : [address] [address] Hgb 10.8(L) 11.9 - 15.5 g/dL [facility] Comment:Testing performed by : [address] [address] Hct 35.6 35.6 - 45.5 % [facility] Comment:Testing performed by : [address] [address] Plt 414(H) 150 - 400 K/cumm [facility] Comment:Testing performed by : [address] [address] MPV 9.4 9.1 - 12.3 fL [facility] Comment:Testing performed by : [address] [address] RBC 4.35 3.90 - 5.20 M/cumm [facility] Comment:Testing performed by : [address] [address] MCV 81.8 81.3 - 96.4 fL [facility] Comment:Testing performed by : [address] [address] MCH 24.8(L) 27.1 - 33.3 pg [facility] Comment:Testing performed by : [address] [address] MCHC 30.3(L) 32.3 - 35.7 g/dL [facility] Comment:Testing performed by : [address], [address] RDW CV 15.4(H) 11.1 - 14.9 % [facility] Comment:Testing performed by : [address], [address] RDW SD 46.2 35.7 - 48.1 fL [facility] Comment:Testing performed by : [address], [address] NRBC abs 0.00 0.00 - 0.01 K/cumm [facility] Comment:Testing performed by : [address] [address] Blood 09/05/2024 4:27 AM GRAPHICS PRODUCTION SPECIALIST 09/05/2024 5:03 AM GRAPHICS PRODUCTION SPECIALIST us Venkat Rudd MD LAB BLOOD ORDERABLES Fi nal Result [facility] [address] [facility] [place] [address] * (ABNORMAL) CBC without differential (09/04/2024 4:25 AM GRAPHICS PRODUCTION SPECIALIST) [facility] WBC 14.5(H) 3.8 - 9.9 K/cumm Comment:Testing performed by : [address], [address] Hgb 10.5(L) 11.9 - 15.5 g/dL [facility] Comment:Testing performed by : [address] [address] Hct 35.4(L) 35.6 - 45.5 % [facility] Comment:Testing performed by : [address] [address] Plt 392 150 - 400 K/cumm [facility] Comment:Testing performed by : [address] [address] MPV 9.2 9.1 - 12.3 fL [facility] Comment:Testing performed by : [address] [address] RBC 4.27 3.90 - 5.20 M/cumm [facility] Comment:Testing performed by : [address] [address] MCV 82.9 81.3 - 96.4 fL [facility] Comment:Testing performed by : [address] [address] MCH 24.6(L) 27.1 - 33.3 pg [facility] Comment:Testing performed by : [address] [address] MCHC 29.7(L) 32.3 - 35.7 g/dL [facility] Comment:Testing performed by : [address] [address] RDW CV 15.6(H) 11.1 - 14.9 % [facility] Comment:Testing performed by : [address], [address] RDW SD 47.6 35.7 - 48.1 fL [facility] Comment:Testing performed by : [address] [address] NRBC abs 0.00 0.00 - 0.01 K/cumm [facility] Comment:Testing performed by : [address] [address] Blood 09/04/2024 4:25 AM GRAPHICS PRODUCTION SPECIALIST 09/04/2024 4:41 AM GRAPHICS PRODUCTION SPECIALIST Venkat Rudd MD LAB BLOOD ORDERABLES Fi nal Result Performing Organization Address [facility] Co de Phone Number [facility] [address] [place] [address] * Troponin T high-sensitivity 2-hour (09/01/2024 5:11 PM GRAPHICS PRODUCTION SPECIALIST) Trop T hs <6 <=14 ng/L Comment: Interpretive Data For further hscTnT resources including the diagnostic algorithm and an aid in interpretation, copy and paste this link: https://nrl.testcatalog.org/show/hsTrop Current Interpretive Data last revised 2020. Testing performed by: [address] [address] Trop T hs delta 0 ng/L [facility] Comment:Testing performed by : [address] [address] Trop T hs interp Insignificant [facility] Comment:Testing performed by : [address] [address] Blood 09/01/2024 5:11 PM GRAPHICS PRODUCTION SPECIALIST 09/01/2024 5:14 PM GRAPHICS PRODUCTION SPECIALIST Wil Monteiro MD LAB BLOOD ORDERABLE S Final Result Performing Organization Address [facility] [[email or web address]] de Phone Number [facility] [address] [facility] [place] [place] [address] * Urinalysis reflex to microscopic and culture Urine (09/01/2024 4:58 PM GRAPHICS PRODUCTION SPECIALIST) Color, ur Yellow Yellow Comment:Testing performed by : [address] [address] Clarity, ur Clear Clear [facility] Comment:Testing performed by : [address] [address] Specific gravity, ur 1.015 1.003 - 1.030 [facility] Comment:Testing performed by : [address] [address] pH, urine 7.0 [facility] Comment: Interpretive Data U rine pH is affected by diet, medications, systemic acid-base disturbances, and renal tubular function. pH may affect urinary stone formation. For example, urine pH below 6.0 may help reduce the tendency for calcium phosphate stones and pH greater than 6.0 may reduce the tendency for uric acid stone formation. Source: [facility] [employer] Current Interpretive Data was last revised on 2017 Testing performed by: [facility], [address] [place] [address], [place]., [address] Protein, ur ql Negative Negative TAWNYA Comment:Testing performed by : [facility], [address] [place] [address], [place]., [address] Glucose, ur ql Negative Negative TAWNYA Comment:Testing performed by : [address], [place]., [address] Ketones, ur Negative Negative TAWNYA Comment:Testing performed by : [address], [place]., [address] Bilirubin, ur Negative Negative TAWNYA Comment:Testing performed by : [address], [place]., [address] Blood, ur Negative Negative TAWNYA Comment:Testing performed by : [address], [place]., [address] Urobilinogen, ur <2.0 <2.0 mg/dL TAWNYA Comment:Testing performed by : [address], [place]., [address] Nitrite, ur Negative Negative TAWNYA Comment:Testing performed by : [address], [place]., [address] Leukocyte esterase, ur Negative Negative TAWNYA Comment:Testing performed by : [address], [place]., [address] UA reflex comment Reflex conditions for microscopic UA and culture not met. TAWNYA Comment:Testing performed by : [address], [place]., [address] Urine 09/01/2024 4:58 PM GRAPHICS PRODUCTION SPECIALIST 09/01/2024 4:59 PM GRAPHICS PRODUCTION SPECIALIST us Wil Monteiro MD LAB MICROBIOLOGY - GENERAL ORDERABLES Final Result TAWNYA [address] [facility] [place] [address] * XR Chest 1 Vw Portable (09/01/2024 3:05 PM GRAPHICS PRODUCTION SPECIALIST) Anatomical Region Laterality Modality Body, Chest N/A Computed Radiogr aphy 09/01/2024 3:19 PM GRAPHICS PRODUCTION SPECIALIST Narrative 09/01/2024 3:22 PM GRAPHICS PRODUCTION SPECIALIST EXAM DESCRIPTION: XR CHEST 1 VIEW REASON [...] Robi Arreola M.D. MZ: MZ Report ID: [id number] Reading Location: [id number] Procedure Note Robi Arreola MD - 09/01/2024 [...] Robi Arreola M.D. MZ: MZ Report ID: [id number] Reading Location: [place] [address] us Wil Monteiro MD IMG XR PROCEDURES F inal Result * Troponin T high-sensitivity series (baseline, 2hr, 4hr, 6hr) (09/01/2024 2:59 PM GRAPHICS PRODUCTION SPECIALIST) Pathologist [facility] Trop T hs <6 <=14 ng/L Comment: Interpretive Data For further hscTnT resources including the diagnostic algorithm and an aid in interpretation, copy and paste this link: https://nrl.testcatalog.org/show/hsTrop Current Interpretive Data last revised 2020. Testing performed by: [facility], [address] [place] [address]., [address] Blood 09/01/2024 2:59 PM GRAPHICS PRODUCTION SPECIALIST 09/01/2024 3:03 PM GRAPHICS PRODUCTION SPECIALIST us Wil Monteiro MD LAB BLOOD ORDERABLE S Final Result YAHUR SS [address] [facility] Department [place] [address] * eGFR (09/01/2024 2:59 PM GRAPHICS PRODUCTION SPECIALIST) Pathologist [facility] eGFR >90 >=60 mL/min/1. 73 m2 Comment: [...] was last reviewed 2021. Testing performed by: [address] [address] Blood 09/01/2024 2:59 PM GRAPHICS PRODUCTION SPECIALIST 09/01/2024 3:03 PM GRAPHICS PRODUCTION SPECIALIST Wil Monteiro MD LAB BLOOD ORDERABLE S Final Result [place] [id number] [facility] Department of Laboratories [place], [place] [id number] * (ABNORMAL) Differential, auto (09/01/2024 2:59 PM GRAPHICS PRODUCTION SPECIALIST) Neutrophil abs 14.4(H) 1.5 - 6.5 K/cumm Comment:Testing performed by : [address] [address] Imm gran abs 0.2(H) 0.0 - 0.1 K/cumm TAWNYA Comment:Testing performed by : [address] [address] Lymphocyte abs 1.4 0.8 - 3.3 K/cumm TAWNYA Comment:Testing performed by : [address] [address] Monocyte abs 0.4 0.2 - 0.8 K/cumm TAWNYA Comment:Testing performed by : [address] [address] Eosinophil abs 0.0 0.0 - 0.5 K/cumm [facility] Comment:Testing performed by : [address] [address] Basophil abs 0.1 0.0 - 0.1 K/cumm TAWNYA Comment:Testing performed by : [address] [address] Neutrophil pct 87.3 % [facility] Comment: Interpretive Data Percent cell count reference ranges are not reported, since discordance with absolute values may lead to misinterpretation of CBC data. Current Interpretive Data was last revised on 2017. Testing performed by: [address] [address] Imm gran pct 0.9 % [facility] Comment: Interpretive Data Percent cell count reference ranges are not reported, since discordance with absolute values may lead to misinterpretation of CBC data. Current Interpretive Data was last revised on 2017. Testing performed by: [address] [address] Lymphocyte pct 8.7 % [facility] Comment: Interpretive Data Percent cell count reference ranges are not reported, since discordance with absolute values may lead to misinterpretation of CBC data. Current Interpretive Data was last revised on 2017. Testing performed by: [address] [address] Monocyte pct 2.7 % [facility] Comment: Interpretive Data Percent cell count reference ranges are not reported, since discordance with absolute values may lead to misinterpretation of CBC data. Current Interpretive Data was last revised on 2017. Testing performed by: [address] [address] Eosinophil pct 0.1 % [facility] Comment: Interpretive Data Percent cell count reference ranges are not reported, since discordance with absolute values may lead to misinterpretation of CBC data. Current Interpretive Data was last revised on 2017. Testing performed by: [address] [address] Basophil pct 0.3 % [facility] Comment: Interpretive Data Percent cell count reference ranges are not reported, since discordance with absolute values may lead to misinterpretation of CBC data. Current Interpretive Data was last revised on 2017. Testing performed by: [address] [address] Blood 09/01/2024 2:59 PM GRAPHICS PRODUCTION SPECIALIST 09/01/2024 3:03 PM GRAPHICS PRODUCTION SPECIALIST Wil Monteiro MD LAB BLOOD ORDERABLE S Final Result Performing Organization Address [facility] Co de Phone Number [address] [place] [address] * Thyroid Function [place] (09/01/2024 2:59 PM GRAPHICS PRODUCTION SPECIALIST) TSH 0.80 0.30 - 4.20 mcIUnit/mL Comment:Testing performed by : [address] [address] Blood 09/01/2024 2:59 PM GRAPHICS PRODUCTION SPECIALIST 09/01/2024 3:03 PM GRAPHICS PRODUCTION SPECIALIST Wil Monteiro MD LAB BLOOD ORDERABLE S Final Result Performing Organization Address [facility] [[email or web address]] de Phone Number [address] [address] * (ABNORMAL) CBC with auto differential (09/01/2024 2:59 PM GRAPHICS PRODUCTION SPECIALIST) WBC 16.5(H) 3.8 - 9.9 K/cumm Comment:Testing performed by : [address] [address] Hgb 11.3(L) 11.9 - 15.5 g/dL TAWNYA Comment:Testing performed by : [address] [address] Hct 36.4 35.6 - 45.5 % TAWNYA MILLS Comment:Testing performed by : [address] [address] Plt 465(H) 150 - 400 K/cumm TAWNYA MILLS Comment:Testing performed by : [address] [address] MPV 9.0(L) 9.1 - 12.3 fL TAWNYA Comment:Testing performed by : [address] [address] RBC 4.54 3.90 - 5.20 M/cumm TAWNYA MILLS Comment:Testing performed by : [address] [address] MCV 80.2(L) 81.3 - 96.4 fL TAWNYA Comment:Testing performed by : [address] [address] MCH 24.9(L) 27.1 - 33.3 pg TAWNYA Comment:Testing performed by : [address] [address] MCHC 31.0(L) 32.3 - 35.7 g/dL TAWNYA Comment:Testing performed by : [address] [address] RDW CV 15.1(H) 11.1 - 14.9 % TAWNYA Comment:Testing performed by : [address] [address] RDW SD 44.1 35.7 - 48.1 fL TAWNYA Comment:Testing performed by : [address] [address] NRBC abs 0.00 0.00 - 0.01 K/cumm TAWNYA Comment:Testing performed by : [address] [address] Blood 09/01/2024 2:59 PM GRAPHICS PRODUCTION SPECIALIST 09/01/2024 3:03 PM GRAPHICS PRODUCTION SPECIALIST us Wil Monteiro MD LAB BLOOD ORDERABLE S Final Result TAWNYA [address] [facility] Department of Laboratories [place], [place] [id number] * Magnesium (09/01/2024 2:59 PM GRAPHICS PRODUCTION SPECIALIST) [facility] Magnesium 2.0 1.4 - 2.5 mg/dL Comment:Testing performed by : [address] [address] Blood 09/01/2024 2:59 PM GRAPHICS PRODUCTION SPECIALIST 09/01/2024 3:03 PM GRAPHICS PRODUCTION SPECIALIST us Wil Monteiro MD LAB BLOOD ORDERABLE S Final Result [facility] [address] [facility] [place] [address] * Basic metabolic panel (09/01/2024 2:59 PM GRAPHICS PRODUCTION SPECIALIST) Sodium 140 135 - 145 mmol/L Comment:Testing performed by : [address] [address] Potassium, pl 4.0 3.3 - 4.9 mmol/L TAWNYA Comment:Testing performed by : [address] [address] Chloride 103 97 - 110 mmol/L TAWNYA Comment:Testing performed by : [address] [address] CO2 23 22 - 32 mmol/L TAWNYA Comment:Testing performed by : [address] [address] Anion gap 14 2 - 15 mmol/L TAWNYA Comment:Testing performed by : [address] [address] BUN 17 6 - 25 mg/dL TAWNYA Comment:Testing performed by : [address] [address] Creatinine 0.68 0.60 - 1.10 mg/dL TAWNYA Comment:Testing performed by : [address] [address] Glucose 147 70 - 199 mg/dL TAWNYA [...] was last revised 2022. Testing performed by: [facility], [address] [place] [address]., [address] Calcium 9.3 8.5 - 10.3 mg/dL TAWNYA MILLS Comment:Testing performed by : [address] [address] Blood 09/01/2024 2:59 PM GRAPHICS PRODUCTION SPECIALIST 09/01/2024 3:03 PM GRAPHICS PRODUCTION SPECIALIST Wil Monteiro MD LAB BLOOD ORDERABLE S Final Result TAWNYA MILLS [address] [facility] Department [place] [address] * POCT hCG, urine (09/01/2024 2:28 PM GRAPHICS PRODUCTION SPECIALIST) [facility] HCG, ur, POC Negative Negative Lot Number [id number] QC Backgroud Clear Acceptable QC Control Line Acceptable Urine 09/01/2024 2:28 PM GRAPHICS PRODUCTION SPECIALIST Wil Monteiro MD POINT OF CARE TEST ORDERABLES Final Result * ECG 12 lead (09/01/2024 1:54 PM GRAPHICS PRODUCTION SPECIALIST) Pathologist [facility] Ventricular Rate EKG/Min 153 BPM [facility] Atrial Rate 153 BPM [facility] [place]-Interval (MSEC) 116 ms [facility] QRS-Interval (MSEC) 88 ms [facility] QT-Interval (MSEC) 328 ms [facility] QTc 523 ms [facility] P [place] 57 degrees [facility] R [place] 67 degrees [facility] T [place] 44 degrees [facility] Diagnosis Sinus tachycardia Otherwise normal ECG When compared with ECG of 20-AUG-2024 02:26, T wave inversion no longer evident in Anterior leads Confirmed by LAWRENCE YIP M.D. ([id number]) on 09/02/2024 9:10:53 AM [facility] 09/01/2024 1:54 PM GRAPHICS PRODUCTION SPECIALIST 09/02/2024 9:10 AM GRAPHICS PRODUCTION SPECIALIST us Wil Monteiro MD ECG ORDERABLES Fin al Result Performing Organization Address [facility]/ZIP Co de Phone Number [facility] * eGFR (08/22/2024 7:57 AM GRAPHICS PRODUCTION SPECIALIST) eGFR >90 >=60 mL/min/1. 73 m2 Comment: [...] was last reviewed 2021. Testing performed by: [facility], [address] [place] [address]., [address] Blood 08/22/2024 7:57 AM GRAPHICS PRODUCTION SPECIALIST 08/22/2024 8:11 AM GRAPHICS PRODUCTION SPECIALIST us José Luis Tripp MD LAB BLOOD ORDERABLES Final Re sult TAWNYA [address] [facility] Department [place] [address] * (ABNORMAL) CBC without differential (08/22/2024 7:57 AM GRAPHICS PRODUCTION SPECIALIST) WBC 11.8(H) 3.8 - 9.9 K/cumm Comment:Testing performed by : [address] [address] Hgb 10.4(L) 11.9 - 15.5 g/dL TAWNYA Comment:Testing performed by : [address] [address] Hct 33.4(L) 35.6 - 45.5 % TAWNYA Comment:Testing performed by : [address] [address] Plt 450(H) 150 - 400 K/cumm TAWNYA Comment:Testing performed by : [address] [address] MPV 9.0(L) 9.1 - 12.3 fL TAWNYA Comment:Testing performed by : [address], [address] RBC 4.12 3.90 - 5.20 M/cumm TAWNYA Comment:Testing performed by : [address] [address] MCV 81.1(L) 81.3 - 96.4 fL CERBAILEY Comment:Testing performed by : [address] [address] MCH 25.2(L) 27.1 - 33.3 pg CERBAILEY Comment:Testing performed by : [address] [address] MCHC 31.1(L) 32.3 - 35.7 g/dL TAWNYA Comment:Testing performed by : [address] [address] RDW CV 15.5(H) 11.1 - 14.9 % TAWNYA Comment:Testing performed by : [address] [address] RDW SD 45.6 35.7 - 48.1 fL CERBAILEY Comment:Testing performed by : [address] [address] NRBC abs 0.00 0.00 - 0.01 K/cumm TAWNYA Comment:Testing performed by : [address], [address] Blood 08/22/2024 7:57 AM GRAPHICS PRODUCTION SPECIALIST 08/22/2024 8:11 AM GRAPHICS PRODUCTION SPECIALIST us Jorje Huynh MD LAB BLOOD ORDERABLES Final Result TAWNYA [address] [facility] Department [place] [address] * Basic metabolic panel (08/22/2024 7:57 AM GRAPHICS PRODUCTION SPECIALIST) Sodium 137 135 - 145 mmol/L Comment:Testing performed by : [address] [address] Potassium, pl 3.7 3.3 - 4.9 mmol/L TAWNYA Comment:Testing performed by : [address] [address] Chloride 103 97 - 110 mmol/L TAWNYA Comment:Testing performed by : [address] [address] CO2 23 22 - 32 mmol/L TAWNYA Comment:Testing performed by : [address] [address] Anion gap 11 2 - 15 mmol/L TAWNYA Comment:Testing performed by : [address] [address] BUN 16 6 - 25 mg/dL TAWNYA Comment:Testing performed by : [address] [address] Creatinine 0.71 0.60 - 1.10 mg/dL TAWNYA Comment:Testing performed by : [address] [address] Glucose 102 70 - 199 mg/dL TAWNYA [...] was last revised 2022. Testing performed by: [facility], [address] [place] [address]., [address] Calcium 9.0 8.5 - 10.3 mg/dL TAWNYA MILLS Comment:Testing performed by : [address] [address] Blood 08/22/2024 7:57 AM GRAPHICS PRODUCTION SPECIALIST 08/22/2024 8:11 AM GRAPHICS PRODUCTION SPECIALIST us José Luis Tripp MD LAB BLOOD ORDERABLES Final Re sult TAWNYA MILLS [address] [facility] [place] [address] * eGFR (08/21/2024 7:53 AM GRAPHICS PRODUCTION SPECIALIST) eGFR >90 >=60 mL/min/1. 73 m2 Comment: [...] was last reviewed 2021. Testing performed by: [address] [address] Blood 08/21/2024 7:53 AM GRAPHICS PRODUCTION SPECIALIST 08/21/2024 8:14 AM GRAPHICS PRODUCTION SPECIALIST us José Luis Tripp MD LAB BLOOD ORDERABLES Final Re sult [facility] [address] [facility] [place] [address] * (ABNORMAL) CBC without differential (08/21/2024 7:53 AM GRAPHICS PRODUCTION SPECIALIST) WBC 11.9(H) 3.8 - 9.9 K/cumm Comment:Testing performed by : [address] [address] Hgb 11.2(L) 11.9 - 15.5 g/dL TAWNYA Comment:Testing performed by : [address], [address] Hct 35.2(L) 35.6 - 45.5 % TAWNYA Comment:Testing performed by : [address] [address] Plt 481(H) 150 - 400 K/cumm TAWNYA Comment:Testing performed by : [address] [address] MPV 9.0(L) 9.1 - 12.3 fL TAWNYA Comment:Testing performed by : [address] [address] RBC 4.41 3.90 - 5.20 M/cumm TAWNYA Comment:Testing performed by : [address] [address] MCV 79.8(L) 81.3 - 96.4 fL TAWNYA Comment:Testing performed by : [address] [address] MCH 25.4(L) 27.1 - 33.3 pg TAWNYA Comment:Testing performed by : [address] [address] MCHC 31.8(L) 32.3 - 35.7 g/dL TAWNYA Comment:Testing performed by : [address], [address] RDW CV 15.6(H) 11.1 - 14.9 % TAWNYA Comment:Testing performed by : [address] [address] RDW SD 44.8 35.7 - 48.1 fL TAWNYA MILLS Comment:Testing performed by : [address] [address] NRBC abs 0.00 0.00 - 0.01 K/cumm TAWNYA MILLS Comment:Testing performed by : [address] [address] Blood 08/21/2024 7:53 AM GRAPHICS PRODUCTION SPECIALIST 08/21/2024 8:15 AM GRAPHICS PRODUCTION SPECIALIST us Jorje Huynh MD LAB BLOOD ORDERABLES Final Result [facility] [place] [address] [facility] [place] [address] * Basic metabolic panel (08/21/2024 7:53 AM GRAPHICS PRODUCTION SPECIALIST) Sodium 139 135 - 145 mmol/L Comment:Testing performed by : [address] [address] Potassium, pl 3.5 3.3 - 4.9 mmol/L TAWNYA MILLS Comment:Testing performed by : [address] [address] Chloride 102 97 - 110 mmol/L TAWNYA Comment:Testing performed by : [address] [address] CO2 23 22 - 32 mmol/L TAW[facility] [place] Comment:Testing performed by : [address] [address] Anion gap 14 2 - 15 mmol/L TAW[facility]A [place] Comment:Testing performed by : [address] [address] BUN 11 6 - 25 mg/dL TAW[facility]A [place] Comment:Testing performed by : [address] [address] Creatinine 0.70 0.60 - 1.10 mg/dL TAW[facility]A MILLS Comment:Testing performed by : [address] [address] Glucose 91 70 - 199 mg/dL TAWNYA [...] was last revised 2022. Testing performed by: [facility], [address] [place] [address]., [address] Calcium 9.4 8.5 - 10.3 mg/dL TAWNYA Comment:Testing performed by : [facility], [address] [place] [address]., [address] Blood 08/21/2024 7:53 AM GRAPHICS PRODUCTION SPECIALIST 08/21/2024 8:14 AM GRAPHICS PRODUCTION SPECIALIST us José Luis Tripp MD LAB BLOOD ORDERABLES Final Re sult [facility] [address] [facility] [place] [address] * [place] CLOSED [place] TEMPOROMANDIBULAR DISLOCATION 1ST/SBSQ (08/20/2024 1:18 PM GRAPHICS PRODUCTION SPECIALIST) Narrative Abhay Velez MD - 08/20/2024 1:18 PM GRAPHICS PRODUCTION SPECIALIST Abhay Velez MD 08/20/2024 1:33 PM Orthopedic Injury Treatment - Jaw Dislocation Date/Time: 08/20/2024 1:18 PM Performed by: Abhay Velez MD Authorized by: Abhay Velez MD RN Notified of Procedure: yes Informed consent: Risks, benefits, alternatives discussed and patient/front desk representative/guardian agrees and accepts Patient's stated name/ [...] Result * Procedural Sedation (08/20/2024 1:18 PM GRAPHICS PRODUCTION SPECIALIST) Narrative Abhay Velez MD - 08/20/2024 1:18 PM GRAPHICS PRODUCTION SPECIALIST Abhay Velez MD 08/20/2024 1:32 PM Procedural Sedation Date/Time: 08/20/2024 1:18 PM Performed by: Abhay Velez MD Authorized by: Abhay Velez MD [place] Protocol: RN Notified of Procedure: yes Informed consent: Risks, benefits, alternatives discussed and patient/front desk representative/guardian agrees and accepts Patient's stated name/ [...] Less than 4 Views (08/20/2024 11:41 AM GRAPHICS PRODUCTION SPECIALIST) Anatomical Region Laterality Modality Head and Neck N/A Computed Radiogr aphy 08/20/2024 11:5 5 AM GRAPHICS PRODUCTION SPECIALIST Narrative 08/20/2024 12:02 PM GRAPHICS PRODUCTION SPECIALIST EXAM DESCRIPTION: XR MANDIBLE LESS THAN 4 [...] Rohan Ramos M.D. LB: LB Report ID: [id number] Reading Location: [id number] Procedure Note Rohan Ramos MD - 08/20/2024 [...] Rohan Ramos M.D. LB: LB Report ID: [id number] Reading Location: [id number] us Jorje Huynh MD IMG XR PROCEDURES Final Re sult * Sepsis Lactate w/ Reflex (08/20/2024 8:24 AM GRAPHICS PRODUCTION SPECIALIST) Sepsis Lactate 1.3 0.7 - 2.0 mmol/L Comment:Testing performed by : [facility] [address] [address] Blood 08/20/2024 8:24 AM GRAPHICS PRODUCTION SPECIALIST 08/20/2024 8:29 AM GRAPHICS PRODUCTION SPECIALIST Erik Westbrook NP LAB BLOOD ORDERABLES Final Resul t Performing Organization Address City/[facility] [[email or web address]] de Phone Number TAWNYA [address] [address] * (ABNORMAL) Sepsis Lactate w/ Reflex (08/20/2024 3:25 AM GRAPHICS PRODUCTION SPECIALIST) Sepsis Lactate 2.6(C) 0.7 - 2.0 mmol/L Comment: Critical Result called to and read back by [id number], DATE: 2024-08-20 04:23:15 BY: [id number] Testing performed by: [address] [address] Blood 08/20/2024 3:25 AM GRAPHICS PRODUCTION SPECIALIST 08/20/2024 4:00 AM GRAPHICS PRODUCTION SPECIALIST Erik Westbrook NP LAB BLOOD ORDERABLES Final Resul t Performing Organization Address [facility] Co de Phone Number Y[address] [address] * eGFR (08/20/2024 3:25 AM GRAPHICS PRODUCTION SPECIALIST) eGFR >90 >=60 mL/min/1. 73 m2 Comment: [...] was last reviewed 2021. Testing performed by: [address] [address] Blood 08/20/2024 3:25 AM GRAPHICS PRODUCTION SPECIALIST 08/20/2024 4:00 AM GRAPHICS PRODUCTION SPECIALIST us José Luis Tripp MD LAB BLOOD ORDERABLES Final Re sult [facility] [address] [facility] [place] [address] * (ABNORMAL) CBC without differential (08/20/2024 3:25 AM GRAPHICS PRODUCTION SPECIALIST) WBC 12.4(H) 3.8 - 9.9 K/cumm Comment:Testing performed by : [address] [address] Hgb 10.3(L) 11.9 - 15.5 g/dL TAWNYA Comment:Testing performed by : [address] [address] Hct 32.7(L) 35.6 - 45.5 % TAWNYA Comment:Testing performed by : [address] [address] Plt 467(H) 150 - 400 K/cumm TAWNYA Comment:Testing performed by : [address] [address] MPV 9.1 9.1 - 12.3 fL TAWNYA Comment:Testing performed by : [address] [address] RBC 4.09 3.90 - 5.20 M/cumm TAWNYA Comment:Testing performed by : [address] [address] MCV 80.0(L) 81.3 - 96.4 fL TAWNYA Comment:Testing performed by : [address] [address] MCH 25.2(L) 27.1 - 33.3 pg TAW[facility]A MILLS Comment:Testing performed by : [address] [address] MCHC 31.5(L) 32.3 - 35.7 g/dL TAW[facility]A MILLS Comment:Testing performed by : [address] [address] RDW CV 15.1(H) 11.1 - 14.9 % TAW[facility]A MILLS Comment:Testing performed by : [address] [address] RDW SD 43.8 35.7 - 48.1 fL [facility]A M[facility]S Comment:Testing performed by : [address] [address] NRBC abs 0.00 0.00 - 0.01 K/cumm TAW[facility]A [place]S Comment:Testing performed by : [address] [address] Blood 08/20/2024 3:25 AM GRAPHICS PRODUCTION SPECIALIST 08/20/2024 4:00 AM GRAPHICS PRODUCTION SPECIALIST us José Luis Tripp MD LAB BLOOD ORDERABLES Final Re sult TAWNYA [address] [facility] Department of Laboratories [place], [place] [id number] * (ABNORMAL) Basic metabolic panel (08/20/2024 3:25 AM GRAPHICS PRODUCTION SPECIALIST) Pathologist [facility] Sodium 138 135 - 145 mmol/L Comment:Testing performed by : [address] [address] Potassium, pl 4.4 3.3 - 4.9 mmol/L TAWNYA MILLS Comment: Hemolyzed; Potassium value may be falsely elevated by as much as 1.0 mmol/L. Suggest redraw and reanalysis. Testing performed by: [address] [address] Chloride 104 97 - 110 mmol/L TAWNYA MILLS Comment:Testing performed by : [address] [address] CO2 20(L) 22 - 32 mmol/L TAWNYA Comment:Testing performed by : [address] [address] Anion gap 14 2 - 15 mmol/L TAWNYA Comment:Testing performed by : [address] [address] BUN 8 6 - 25 mg/dL TAWNYA Comment:Testing performed by : [address] [address] Creatinine 0.64 0.60 - 1.10 mg/dL TAWNYA Comment:Testing performed by : [address] [address] Glucose 179 70 - 199 mg/dL TAWNYA [...] was last revised 2022. Testing performed by: [address] [address] Calcium 9.5 8.5 - 10.3 mg/dL TAWNYA Comment:Testing performed by : [address] [address] Blood 08/20/2024 3:25 AM GRAPHICS PRODUCTION SPECIALIST 08/20/2024 4:00 AM GRAPHICS PRODUCTION SPECIALIST us José Luis Tripp MD LAB BLOOD ORDERABLES Final Re sult YABAILEY GENE [address] [facility] Department of Laboratories [place], [place] [id number] * ECG 12 lead (08/20/2024 2:26 AM GRAPHICS PRODUCTION SPECIALIST) Pathologist [facility] Ventricular Rate EKG/Min 148 BPM [facility] Atrial Rate 148 BPM [facility] [place]-Interval (MSEC) 114 ms [facility] QRS-Interval (MSEC) 100 ms [facility] HEALTHCARE QT-Interval (MSEC) 336 ms [facility] QTc 527 ms [facility] P [place] 51 degrees [facility] R [place] 73 degrees [facility] T [place] 35 degrees [facility] Diagnosis Sinus tachycardia Incomplete right bundle branch block Nonspecific T wave abnormality Abnormal ECG When compared with ECG of 19-AUG-2024 20:25, No significant change was found Confirmed by BELIA CHU M.D. ([id number]) on 08/21/2024 5:20:17 AM [facility] 08/20/2024 2:26 AM GRAPHICS PRODUCTION SPECIALIST 08/21/2024 5:20 AM GRAPHICS PRODUCTION SPECIALIST us Jorje Huynh MD ECG ORDERABLES Final Resu lt Performing Organization Address City/[facility]/ZIP Co de Phone Number [facility] * (ABNORMAL) Sepsis Lactate w/ Reflex (08/19/2024 8:52 PM GRAPHICS PRODUCTION SPECIALIST) [facility] Sepsis Lactate 2.4(C) 0.7 - 2.0 mmol/L Comment: Critical Result called to and read back by [email or web address], DATE: 2024-08-19 21:21:33 BY: [email or web address] Testing performed by: [facility], [address] [place] [address]., [id number] Blood 08/19/2024 8:52 PM GRAPHICS PRODUCTION SPECIALIST 08/19/2024 8:55 PM GRAPHICS PRODUCTION SPECIALIST us Erik Westbrook NP LAB BLOOD ORDERABLES Final Resul t [facility] [address] [facility] Department [place] [address] * ECG 12 lead (08/19/2024 8:25 PM GRAPHICS PRODUCTION SPECIALIST) [facility] Ventricular Rate EKG/Min 129 BPM [facility] Atrial Rate 129 BPM [facility] [place]-Interval (MSEC) 138 ms [facility] QRS-Interval (MSEC) 100 ms [facility] QT-Interval (MSEC) 316 ms [facility] QTc 462 ms [facility] P [place] 55 degrees [facility] R [place] 49 degrees [facility] T [place] 46 degrees [facility] Diagnosis Sinus tachycardia Possible Left atrial enlargement Incomplete right bundle branch block Borderline ECG When compared with ECG of 21-MAY-2024 14:20, No significant change was found Confirmed by ZANE SORTO M.D. ([id number]) on 08/20/2024 11:59:01 PM [facility] 08/19/2024 8:25 PM GRAPHICS PRODUCTION SPECIALIST 08/20/2024 11:59 PM GRAPHICS PRODUCTION SPECIALIST Erik Westbrook NP ECG ORDERABLES Final Result Performing Organization Address City/[facility] Co de Phone Number [facility] * eGFR (08/19/2024 8:20 PM GRAPHICS PRODUCTION SPECIALIST) eGFR >90 >=60 mL/min/1. 73 m2 Comment: [...] was last reviewed 2021. Testing performed by: [facility], [address] [place] [address], [place]., [address] Blood 08/19/2024 8:20 PM GRAPHICS PRODUCTION SPECIALIST 08/19/2024 8:24 PM GRAPHICS PRODUCTION SPECIALIST Erik Westbrook NP LAB BLOOD ORDERABLES Final Resul t [facility] [address] [facility] [place] [address] * (ABNORMAL) Differential, auto (08/19/2024 8:20 PM GRAPHICS PRODUCTION SPECIALIST) Neutrophil abs 17.7(H) 1.5 - 6.5 K/cumm Comment:Testing performed by : [address] [address] Imm gran abs 0.1 0.0 - 0.1 K/cumm [facility] Comment:Testing performed by : [address] [address] Lymphocyte abs 0.6(L) 0.8 - 3.3 K/cumm [facility] Comment:Testing performed by : [address] [address] Monocyte abs 0.4 0.2 - 0.8 K/cumm [facility] Comment:Testing performed by : [address] [address] Eosinophil abs 0.0 0.0 - 0.5 K/cumm [facility] Comment:Testing performed by : [address] [address] Basophil abs 0.1 0.0 - 0.1 K/cumm [facility] Comment:Testing performed by : [address] [address] Neutrophil pct 94.0 % [facility] Comment: Interpretive Data Percent cell count reference ranges are not reported, since discordance with absolute values may lead to misinterpretation of CBC data. Current Interpretive Data was last revised on 2017. Testing performed by: [address] [address] Imm gran pct 0.4 % [facility] Comment: Interpretive Data Percent cell count reference ranges are not reported, since discordance with absolute values may lead to misinterpretation of CBC data. Current Interpretive Data was last revised on 2017. Testing performed by: [address] [address] Lymphocyte pct 3.1 % [facility] Comment: Interpretive Data Percent cell count reference ranges are not reported, since discordance with absolute values may lead to misinterpretation of CBC data. Current Interpretive Data was last revised on 2017. Testing performed by: [address] [address] Monocyte pct 2.2 % [facility] Comment: Interpretive Data Percent cell count reference ranges are not reported, since discordance with absolute values may lead to misinterpretation of CBC data. Current Interpretive Data was last revised on 2017. Testing performed by: [address] [address] Eosinophil pct 0.0 % [facility] Comment: Interpretive Data Percent cell count reference ranges are not reported, since discordance with absolute values may lead to misinterpretation of CBC data. Current Interpretive Data was last revised on 2017. Testing performed by: [address] [address] Basophil pct 0.3 % [facility] Comment: Interpretive Data Percent cell count reference ranges are not reported, since discordance with absolute values may lead to misinterpretation of CBC data. Current Interpretive Data was last revised on 2017. Testing performed by: [address] [address] Blood 08/19/2024 8:20 PM GRAPHICS PRODUCTION SPECIALIST 08/19/2024 8:24 PM GRAPHICS PRODUCTION SPECIALIST us Erik Westbrook NP LAB BLOOD ORDERABLES Final Resul t [facility] [address] [facility] Department of Laboratories [place], [place] [id number] * (ABNORMAL) CBC with auto differential (08/19/2024 8:20 PM GRAPHICS PRODUCTION SPECIALIST) WBC 18.8(H) 3.8 - 9.9 K/cumm Comment:Testing performed by : [address] [address] Hgb 10.7(L) 11.9 - 15.5 g/dL [facility] [place] Comment:Testing performed by : [address] [address] Hct 33.3(L) 35.6 - 45.5 % [facility] Comment:Testing performed by : [address] [address] Plt 502(H) 150 - 400 K/cumm [facility] Comment:Testing performed by : [address] [address] MPV 8.9(L) 9.1 - 12.3 fL [facility] Comment:Testing performed by : [address] [address] RBC 4.21 3.90 - 5.20 M/cumm [facility] Comment:Testing performed by : [address], [address] MCV 79.1(L) 81.3 - 96.4 fL [facility] Comment:Testing performed by : [address] [address] MCH 25.4(L) 27.1 - 33.3 pg [facility] Comment:Testing performed by : [address], [address] MCHC 32.1(L) 32.3 - 35.7 g/dL [facility] Comment:Testing performed by : [address], [address] RDW CV 14.9 11.1 - 14.9 % [facility] Comment:Testing performed by : [address], [address] RDW SD 43.0 35.7 - 48.1 fL [facility] Comment:Testing performed by : [address], [address] NRBC abs 0.00 0.00 - 0.01 K/cumm [facility] Comment:Testing performed by : [address], [address] Blood 08/19/2024 8:20 PM GRAPHICS PRODUCTION SPECIALIST 08/19/2024 8:24 PM GRAPHICS PRODUCTION SPECIALIST us Erik Westbrook NP LAB BLOOD ORDERABLES Final Resul t [facility] [address] [facility] [place] [address] * Comprehensive metabolic panel (08/19/2024 8:20 PM GRAPHICS PRODUCTION SPECIALIST) Sodium 140 135 - 145 mmol/L Comment:Testing performed by : [facility], [address] [place] [address], [place]., [address] Potassium, pl 3.5 3.3 - 4.9 mmol/L [facility] Comment:Testing performed by : [facility], [address] [place] [address], [place]., [address] Chloride 104 97 - 110 mmol/L [facility] Comment:Testing performed by : [address], [place]., [address] CO2 23 22 - 32 mmol/L [facility] Comment:Testing performed by : [address], [place]., [address] Anion gap 13 2 - 15 mmol/L [facility] Comment:Testing performed by : [address] [address] BUN 11 6 - 25 mg/dL [facility] Comment:Testing performed by : [address], [place]., [address] Creatinine 0.71 0.60 - 1.10 mg/dL [facility] Comment:Testing performed by : [address], [place]., [address] Glucose 136 70 - 199 mg/dL [facility] [...] was last revised 2022. Testing performed by: [address], [place]., [address] Calcium 9.2 8.5 - 10.3 mg/dL [facility] Comment:Testing performed by : [address] [address] Bilirubin, total <0.2 0.1 - 1.2 mg/dL [facility] Comment:Testing performed by : [address] [address] Protein, pl 7.5 6.5 - 8.5 g/dL [facility] Comment:Testing performed by : [address] [address] Albumin 4.4 3.5 - 5.0 g/dL [facility] Comment:Testing performed by : [address], [place]., [address] Alk phos 74 40 - 130 Units/L [facility] Comment:Testing performed by : [address] [address] ALT 29 7 - 45 Units/L [facility] Comment:Testing performed by : [address] [address] AST 19 10 - 45 Units/L [facility] Comment:Testing performed by : [address] [address] Blood 08/19/2024 8:20 PM GRAPHICS PRODUCTION SPECIALIST 08/19/2024 8:24 PM GRAPHICS PRODUCTION SPECIALIST us Erik Westbrook NP LAB BLOOD ORDERABLES Final Resul t Performing Organization Address City/State/[facility] Co de Phone Number [facility] [address] [facility] [place] [address] * Critical Care (08/19/2024 5:13 PM GRAPHICS PRODUCTION SPECIALIST) Narrative Erik Westbrook NP - 08/19/2024 5:13 PM GRAPHICS PRODUCTION SPECIALIST Erik Westbrook NP 08/19/2024 9:10 PM Critical [...] Final Result from Last 3 Months Insurance [employer] OPEN ACCESS [facility] CHOICE PLUS [facility] CHOICE PLUS Advance Directives For more information, please contact: [phone] * Full Code (Latest Code Status on File) Date Activated Date Inactivated Comments 09/23/2024 7:38 PM 09/24/2024 5:41 PM * Full Code Date Activated Date Inactivated Comments 09/01/2024 7:30 PM 09/05/2024 3:39 PM * Full Code Date Activated Date Inactivated Comments 08/19/2024 9:45 PM 08/22/2024 5:15 PM Care Teams Infant Caregiver Relationship Specialty Start Date End Date Shannan Maldonado MD PCP - General 09/07/19
--- OUTSIDE RECORDS SUMMARY | 2024-09-26 12:49 | XMS_ITS | Clinical Summary ---
Author Organization [facility] Address [address] [place] [address] Care Team Providers Care Cigar Packer And Sorter Name Role Phone Shannan Maldonado MD Primary Care Provider [phone] Celio Jacques MD Unavailable Allergies Active Allergy [...] this topic Medical Devices Implanted Type Area Income Tax Preparer Device Identifier Shelf Expiration Date Model / Serial / Lot Staple Bone [id number] m 2m - [id number] Implanted:Qty: 1 on 02/16/2024 by Pranay Dejesus DPM at [facility] [employer]ila[employer] Right: Foot [employer]EL[employer] 06/01/2027 [id number] / / [id number] Wire Ba .045in 4in - [id number] Implanted:Qty: 1 on 03/17/2023 by Pranay Dejesus DPM at [facility] Monique Right: Toe [employer] [id number] / / Description:Right second toe Insurance [facility] Care Teams Cigar Packer And Sorter Relationship Specialty Start Date End Date Shannan Maldonado MD PCP - General 05/06/16 Celio Jacques MD [address] [facility] [address] [place] [address] CARDIOLOGY 03/14/23
--- OUTSIDE RECORDS SUMMARY | 2024-09-26 12:49 | XMS_ITS | Clinical Summary ---
Author Organization [facility] Geena Hernandez Extdamian nsion Address [address] [facility] [place] [address] Care Team Providers Care Box Car Bracer Name Role Phone Shannan Maldonado MD Primary Care Provider [phone] Allergies Active Allergy Reactions Criticality Noted Date [...] - 09/24/2024 1:30 PM CDT Hospital Encounter [place] [address] [address] [place] [id number] Samuel Bowen MD Winston, Jared Todd, MD Ali, Md Shahin, MD Allergic reaction, initial encounter (Primary Dx) Discharge Disposition: Discharge to home or self care 09/01/2024 2:02 PM VACUUM FORM OPERATOR - 09/05/2024 11:38 AM VACUUM FORM OPERATOR Hospital Encounter [facility] [address] [place] [phone] Wil Monteiro MD Gaspe Mudiyanselage, MD Tobin Vinson, Venkat Robin MD Allergic reaction, initial encounter (Primary Dx) Discharge Disposition: Discharge to home or self care 08/19/2024 4:39 PM VACUUM FORM OPERATOR - 08/22/2024 1:15 PM VACUUM FORM OPERATOR Hospital Encounter [facility] [address] [place] [id number] José Luis Tripp MD Winston, Jorje Lester MD Anaphylaxis, initial encounter (Primary Dx) Discharge Disposition: Discharge to home or self care from Last 3 Months Surgical History Surgery Date Site/Laterality Comments NE BIOPSY MUSCLE SUPERFICIAL Biopsy Muscle - 2006 (Added by TW Conv) KNEE SURGERY Knee Surgery - ligament reconstruction 10/2009 (Added by TW Conv) NE RELEASE TARSAL TUNNEL Decompression Tarsal Tunnel Release Left Foot - (Added by TW Conv) NE TONSILLECTOMY PRIMARY/SECONDARY <AGE 12 Tonsillectomy - (Added by TW Conv) WISDOM TOOTH EXTRACTION Oral Surgery Tooth Extraction [place] Tooth - (Added by TW Conv) NE COLONOSCOPY FLX DX W/LEX J SPEC WHEN PFRMD Colonoscopy - (Added by TW Conv) NE DILATION & CURETTAGE DX&/ THER NONOBSTETRIC Dilation [...] drink = 0.6 oz pur e alcohol) [facility] Utilities Answer Date Recorded In the past 12 months has [employer], gas, oil, or water [employer] threatened to shut off services in your [...] often do you attend chur ch or cheondoism services? Never 09/24/2024 Do you belong to any clubs o r organizations such as sabianism groups, unions, fraternal or athletic groups, or [...] any time in the past 12 m [facility], were you homeless or living in a alf (including now)? No 09/24/2024 Personal Safety Answer Date Recorded Have you ever been in or are you currently in a harmful physical or emotional relationship or is someone making you feel afraid or unsafe? Denies 09/23/2024 Comments No Sex and Gender Information Value Date Recorded Sex Assigned at Not on file Legal Sex Female 1:34 AM VACUUM FORM OPERATOR Gender Identity Female 07/01/2022 7:31 PM VACUUM FORM OPERATOR Sexual Orientation Not on file Obstetrics History [...] cm (5' 7 ) 09/01/2024 9:23 PM VACUUM FORM OPERATOR Body Mass Index 31.11 09/01/2024 9:23 PM VACUUM FORM OPERATOR Plan of Treatment Health Maintenance Due Date [...] VIEWS Critical/Life- Threatening 09/23/2024 8:29 PM CDT NE CLOSED TX STERNOCLAVICULAR DISLC W/MANIPULATION Routine 09/23/2024 [...] WITHOUT DIFFERENTIAL Routine 09/05/ 025 4:27 AM VACUUM FORM OPERATOR CBC WITHOUT DIFFERENTIAL Routine /05/ 025 4:25 AM VACUUM FORM OPERATOR TROPONIN T HIGH-SENSITIVITY 2-HOUR Timed 09/01/2024 5:11 PM VACUUM FORM OPERATOR URINALYSIS AND REFLEX TO MICROSCOPIC AND CULTURE STAT 09/01/2024 4:58 PM VACUUM FORM OPERATOR XR CHEST 1 VIEW ED 09/01/2024 3:05 PM VACUUM FORM OPERATOR EGFR STAT 09/01/2024 2:59 PM VACUUM FORM OPERATOR DIFFERENTIAL AUTO STAT 09/01/2024 2:5 9 PM VACUUM FORM OPERATOR MAGNESIUM STAT 09/01/2024 2:59 PM VACUUM FORM OPERATOR THYROID FUNCTION CASCADE STAT 025 2:59 PM VACUUM FORM OPERATOR TROPONIN T HIGH-SENSITIVITY SERIES (BASELINE, 2HR, 4HR, 6HR) STAT 09/01/2024 2:59 PM VACUUM FORM OPERATOR BASIC METABOLIC PANEL STAT 09/01/2024 2:59 PM VACUUM FORM OPERATOR CBC WITH AUTO DIFFERENTIAL STAT 09/01/2024 2:59 PM VACUUM FORM OPERATOR POCT HCG, URINE Routine 09/01/2024 2:28 PM VACUUM FORM OPERATOR ECG 12-LEAD Routine 09/01/2024 1:54 PM VACUUM FORM OPERATOR EGFR Routine 08/22/2024 7:57 AM VACUUM FORM OPERATOR CBC WITHOUT DIFFERENTIAL Routine 025 7:57 AM VACUUM FORM OPERATOR BASIC METABOLIC PANEL Routine 08/22/2024 7:57 AM VACUUM FORM OPERATOR EGFR Routine 08/21/2024 7:53 AM VACUUM FORM OPERATOR CBC WITHOUT DIFFERENTIAL Routine 025 7:53 AM VACUUM FORM OPERATOR BASIC METABOLIC PANEL Routine 08/21/2024 7:53 AM VACUUM FORM OPERATOR NE CLOSED TX TEMPOROMANDIBULAR DISLOCATION SBSQ Routine 08/20/2024 1:18 PM VACUUM FORM OPERATOR ED MODERATE SEDATION Routine 08/20/2024 1:18 PM VACUUM FORM OPERATOR XR MANDIBLE LESS THAN 4 VIEWS Critical/Life- Threatening 08/20/2024 11:41 AM VACUUM FORM OPERATOR SEPSIS LACTATE WITH REFLEX Timed 08/20/2024 8:24 AM VACUUM FORM OPERATOR EGFR Routine 08/20/2024 3:25 AM VACUUM FORM OPERATOR CBC WITHOUT DIFFERENTIAL Routine 025 3:25 AM VACUUM FORM OPERATOR BASIC METABOLIC PANEL Routine 08/20/2024 3:25 AM VACUUM FORM OPERATOR SEPSIS LACTATE WITH REFLEX Timed 08/20/2024 3:25 AM VACUUM FORM OPERATOR ECG 12-LEAD Routine 08/20/2024 2:26 AM VACUUM FORM OPERATOR SEPSIS LACTATE WITH REFLEX STAT 08/19/2024 8:52 PM VACUUM FORM OPERATOR ECG 12-LEAD STAT 08/19/2024 8:25 PM VACUUM FORM OPERATOR EGFR STAT 08/19/2024 8:20 PM VACUUM FORM OPERATOR DIFFERENTIAL AUTO STAT 08/19/2024 8:2 0 PM VACUUM FORM OPERATOR CBC WITH AUTO DIFFERENTIAL STAT 08/19/2024 8:20 PM VACUUM FORM OPERATOR COMPREHENSIVE METABOLIC PANEL STAT 08/19/2024 8:20 PM VACUUM FORM OPERATOR ED CRITICAL CARE Routine 08/19/2024 5:13 PM VACUUM FORM OPERATOR from Last 3 Months Results * eGFR (09/24/2024 3:43 AM CDT) [facility] Signature eGFR >90 >=60 mL/min/1. 73 m2 [...] was last reviewed 2021. Testing performed by: [address] [address] Blood 09/24/2024 3:43 AM CDT 09/24/2024 4:47 AM CDT us Dariela Cortez NP LAB BLOOD ORDERABLES Final R esult [facility] [address] [facility] Department [place] [address] * (ABNORMAL) Differential, auto (09/24/2024 3:43 AM CDT) Neutrophil abs 9.1(H) 1.5 - 6.5 K/cumm Comment:Testing performed by : [address] [address] Imm gran abs 0.0 0.0 - 0.1 K/cumm [facility] Comment:Testing performed by : [address] [address] Lymphocyte abs 0.7(L) 0.8 - 3.3 K/cumm [facility] Comment:Testing performed by : [address] [address] Monocyte abs 0.3 0.2 - 0.8 K/cumm [facility] Comment:Testing performed by : [address] [address] Eosinophil abs 0.0 0.0 - 0.5 K/cumm [facility] Comment:Testing performed by : [address] [address] Basophil abs 0.0 0.0 - 0.1 K/cumm [facility] Comment:Testing performed by : [address] [address] Neutrophil pct 89.5 % [facility] Comment: Interpretive Data Percent cell count reference ranges are not reported, since discordance with absolute values may lead to misinterpretation of CBC data. Current Interpretive Data was last revised on 2017. Testing performed by: [address] [address] Imm gran pct 0.3 % [facility] Comment: Interpretive Data Percent cell count reference ranges are not reported, since discordance with absolute values may lead to misinterpretation of CBC data. Current Interpretive Data was last revised on 2017. Testing performed by: [address] [address] Lymphocyte pct 6.9 % [facility] Comment: Interpretive Data Percent cell count reference ranges are not reported, since discordance with absolute values may lead to misinterpretation of CBC data. Current Interpretive Data was last revised on 2017. Testing performed by: [address] [address] Monocyte pct 3.1 % [facility] Comment: Interpretive Data Percent cell count reference ranges are not reported, since discordance with absolute values may lead to misinterpretation of CBC data. Current Interpretive Data was last revised on 2017. Testing performed by: [address] [address] Eosinophil pct 0.0 % [facility] Comment: Interpretive Data Percent cell count reference ranges are not reported, since discordance with absolute values may lead to misinterpretation of CBC data. Current Interpretive Data was last revised on 2017. Testing performed by: [address] [address] Basophil pct 0.2 % [facility] Comment: Interpretive Data Percent cell count reference ranges are not reported, since discordance with absolute values may lead to misinterpretation of CBC data. Current Interpretive Data was last revised on 2017. Testing performed by: [address] [address] Blood 09/24/2024 3:43 AM CDT 09/24/2024 4:50 AM CDT Dariela Cortez [employer] LAB BLOOD ORDERABLES Final R esult [facility] [address] [facility] Department of Laboratories [place], [place] [id number] * (ABNORMAL) CBC with auto differential (09/24/2024 3:43 AM CDT) WBC 10.2(H) 3.8 - 9.9 K/cumm Comment:Testing performed by : [address] [address] Hgb 10.5(L) 11.9 - 15.5 g/dL [facility] Comment:Testing performed by : [address] [address] Hct 34.2(L) 35.6 - 45.5 % [facility] Comment:Testing performed by : [address] [address] Plt 418(H) 150 - 400 K/cumm [facility] Comment:Testing performed by : [address] [address] MPV 9.7 9.1 - 12.3 fL [facility] Comment:Testing performed by : [address] [address] RBC 4.17 3.90 - 5.20 M/cumm [facility] Comment:Testing performed by : [address] [address] MCV 82.0 81.3 - 96.4 fL [facility] Comment:Testing performed by : [address] [address] MCH 25.2(L) 27.1 - 33.3 pg [facility] Comment:Testing performed by : [address] [address] MCHC 30.7(L) 32.3 - 35.7 g/dL [facility] Comment:Testing performed by : [address] [address] RDW CV 15.6(H) 11.1 - 14.9 % [facility] Comment:Testing performed by : [address] [address] RDW SD 46.4 35.7 - 48.1 fL [facility] Comment:Testing performed by : [address] [address] NRBC abs 0.00 0.00 - 0.01 K/cumm [facility] Comment:Testing performed by : [address] [address] Blood 09/24/2024 3:43 AM CDT 09/24/2024 4:50 AM CDT us Dariela Cortez NP LAB BLOOD ORDERABLES Final R esult [facility] [address] [facility] Department of Laboratories [place], [place] [id number] * (ABNORMAL) Basic metabolic panel (09/24/2024 3:43 AM CDT) Sodium 138 135 - 145 mmol/L Comment:Testing performed by : [address] [address] Potassium, pl 4.2 3.3 - 4.9 mmol/L [facility] Comment:Testing performed by : [address] [address] Chloride 107 97 - 110 mmol/L [facility] Comment:Testing performed by : [address] [address] CO2 21(L) 22 - 32 mmol/L [facility] Comment:Testing performed by : [address] [address] Anion gap 10 2 - 15 mmol/L [facility] Comment:Testing performed by : [address] [address] BUN 10 6 - 25 mg/dL [facility] Comment:Testing performed by : [address] [address] Creatinine 0.71 0.60 - 1.10 mg/dL [facility] Comment:Testing performed by : [address] [address] Glucose 145 70 - 199 mg/dL [facility] [...] was last revised 2022. Testing performed by: [address] [address] Calcium 9.7 8.5 - 10.3 mg/dL [facility] Comment:Testing performed by : [address] [address] Blood 09/24/2024 3:43 AM CDT 09/24/2024 4:47 AM CDT us Dariela Cortez NP LAB BLOOD ORDERABLES Final R esult [facility] [address] [facility] Department [place] [address] * XR Mandible 4 or [...] signed by Arnold GRAHAM: GLADYS Report ID: [id number] Reading Location: [id number] Procedure Note Arnold Chahal MD - 09/23/2024 [...] signed by Arnold GRAHAM: GLADYS Report ID: [id number] Reading Location: [id number] Darian Goode MD IMG XR PROCEDURES Fi nal Result * NE CLOSED TX STERNOCLAVICULAR DISLC W/MANIPULATION (09/23/2024 7:35 [...] Arnold Chahal M.D. KH: GLADYS Report ID: [id number] Reading Location: [id number] Procedure Note Arnold Chahal MD - 09/23/2024 [...] Arnold Chahal M.D. KH: GLADYS Report ID: [id number] Reading Location: [id number] Jorje Huynh MD IMG XR PROCEDURES Final [...] López Mcclellan M.D. MM: MM Report ID: [id number] Reading Location: [id number] Procedure Note López Mcclellan MD - 09/23/2024 [...] López Mcclellan M.D. MM: MM Report ID: [id number] Reading Location: [place] [address] Samuel Bowen MD IMG XR PROCEDURES F inal Result * ECG 12 lead (09/23/2024 4:46 PM CDT) Pathologist [facility] Ventricular Rate EKG/Min 146 BPM [facility] Atrial Rate [address] [facility] QRS-Interval (MSEC) [address] [facility] QT-Interval (MSEC) [address] [facility] QTc [address] [facility] R [place] [address] [facility] T [place] [address] [facility] Diagnosis Sinus tachycardia Incomplete right bundle branch block T-wave changes When compared with ECG of 01-SEP-2024 13:54, No significant change Confirmed by SULTAN ZUNIGA M.D. ([id number]) on 09/23/2024 9:49:[address] [facility] 09/23/2024 4:46 PM CDT 09/23/2024 9:49 PM CDT Samuel Bowen MD ECG ORDERABLES Fin al Result [facility] * eGFR (09/23/2024 4:27 PM CDT) Pathologist [facility] eGFR 88 >=60 mL/min/1. 73 m2 Comment: [...] was last reviewed 2021. Testing performed by: [address] [address] Blood 09/23/2024 4:27 PM CDT 09/23/2024 4:39 PM CDT us Deisy MARQUEZ LAB BLOOD ORDERABLES Final Resu lt [facility] [address] [facility] Department of Laboratories [place], [place] [id number] * (ABNORMAL) Differential, auto (09/23/2024 4:27 PM CDT) Pathologist [facility] Neutrophil abs 7.2(H) 1.5 - 6.5 K/cumm Comment:Testing performed by : [address] [address] Imm gran abs 0.0 0.0 - 0.1 K/cumm [facility] Comment:Testing performed by : [address] [address] Lymphocyte abs 2.4 0.8 - 3.3 K/cumm [facility] Comment:Testing performed by : [address] [address] Monocyte abs 0.8 0.2 - 0.8 K/cumm [facility] Comment:Testing performed by : [address] [address] Eosinophil abs 0.1 0.0 - 0.5 K/cumm [facility] Comment:Testing performed by : [address], [place]., [address] Basophil abs 0.1 0.0 - 0.1 K/cumm [facility] Comment:Testing performed by : [address] [address] Neutrophil pct 68.6 % [facility] Comment: Interpretive Data Percent cell count reference ranges are not reported, since discordance with absolute values may lead to misinterpretation of CBC data. Current Interpretive Data was last revised on 2017. Testing performed by: [address] [address] Imm gran pct 0.4 % [facility] Comment: Interpretive Data Percent cell count reference ranges are not reported, since discordance with absolute values may lead to misinterpretation of CBC data. Current Interpretive Data was last revised on 2017. Testing performed by: [address] [address] Lymphocyte pct 22.5 % [facility] Comment: Interpretive Data Percent cell count reference ranges are not reported, since discordance with absolute values may lead to misinterpretation of CBC data. Current Interpretive Data was last revised on 2017. Testing performed by: [address] [address] Monocyte pct 7.1 % [facility] Comment: Interpretive Data Percent cell count reference ranges are not reported, since discordance with absolute values may lead to misinterpretation of CBC data. Current Interpretive Data was last revised on 2017. Testing performed by: [address] [address] Eosinophil pct 0.7 % [facility] Comment: Interpretive Data Percent cell count reference ranges are not reported, since discordance with absolute values may lead to misinterpretation of CBC data. Current Interpretive Data was last revised on 2017. Testing performed by: [address] [address] Basophil pct 0.7 % [facility] Comment: Interpretive Data Percent cell count reference ranges are not reported, since discordance with absolute values may lead to misinterpretation of CBC data. Current Interpretive Data was last revised on 2017. Testing performed by: [address] [address] Blood 09/23/2024 4:27 PM CDT 09/23/2024 4:39 PM CDT us Samuel Bowen MD LAB BLOOD ORDERABLE S Final Result [facility] [address] [facility] Department of Laboratories [place], [place] [id number] * (ABNORMAL) CBC with auto differential (09/23/2024 4:27 PM CDT) WBC 10.5(H) 3.8 - 9.9 K/cumm Comment:Testing performed by : [address] [address] Hgb 11.9 11.9 - 15.5 g/dL [facility] Comment:Testing performed by : [address] [address] Hct 40.4 35.6 - 45.5 % [facility] Comment:Testing performed by : [address] [address] Plt 517(H) 150 - 400 K/cumm [facility] Comment:Testing performed by : [address] [address] MPV 9.3 9.1 - 12.3 fL [facility] Comment:Testing performed by : [address] [address] RBC 4.93 3.90 - 5.20 M/cumm [facility] Comment:Testing performed by : [address] [address] MCV 81.9 81.3 - 96.4 fL [facility] Comment:Testing performed by : [address] [address] MCH 24.1(L) 27.1 - 33.3 pg [facility] Comment:Testing performed by : [address] [address] MCHC 29.5(L) 32.3 - 35.7 g/dL [facility] Comment:Testing performed by : [address] [address] RDW CV 15.6(H) 11.1 - 14.9 % [facility] Comment:Testing performed by : [address] [address] RDW SD 46.5 35.7 - 48.1 fL [facility] Comment:Testing performed by : [address] [address] NRBC abs 0.00 0.00 - 0.01 K/cumm [facility] Comment:Testing performed by : [address] [address] Blood 09/23/2024 4:27 PM CDT 09/23/2024 4:39 PM CDT us Samuel Bowen MD LAB BLOOD ORDERABLE S Final Result [facility] [address] [facility] Department of Laboratories [place], [place] [id number] * Comprehensive metabolic panel (09/23/2024 4:27 PM CDT) Sodium 141 135 - 145 mmol/L Comment:Testing performed by : [address] [address] Potassium, pl 3.3 3.3 - 4.9 mmol/L [facility] Comment:Testing performed by : [address] [address] Chloride 104 97 - 110 mmol/L [facility] Comment:Testing performed by : [address] [address] CO2 22 22 - 32 mmol/L [facility] Comment:Testing performed by : [address] [address] Anion gap 15 2 - 15 mmol/L [facility] Comment:Testing performed by : [address] [address] BUN 11 6 - 25 mg/dL [facility] Comment:Testing performed by : [address], [place]., [address] Creatinine 0.89 0.60 - 1.10 mg/dL [facility] Comment:Testing performed by : [address] [address] Glucose 153 70 - 199 mg/dL [facility] [...] was last revised 2022. Testing performed by: [address] [address] Calcium 9.9 8.5 - 10.3 mg/dL [facility] Comment:Testing performed by : [address] [address] Bilirubin, total <0.2 0.1 - 1.2 mg/dL [facility] Comment:Testing performed by : [address] [address] Protein, pl 8.0 6.5 - 8.5 g/dL [facility] Comment:Testing performed by : [address] [address] Albumin 4.6 3.5 - 5.0 g/dL [facility] Comment:Testing performed by : [address] [address] Alk phos 84 40 - 130 Units/L [facility] Comment:Testing performed by : [address] [address] ALT 42 7 - 45 Units/L [facility] Comment:Testing performed by : [address] [address] AST 27 10 - 45 Units/L [facility] Comment:Testing performed by : [address] [address] Blood 09/23/2024 4:27 PM CDT 09/23/2024 4:39 PM CDT us Samuel Bowen MD LAB BLOOD ORDERABLE S Final Result [place] [id number] [facility] Department [place] [address] * (ABNORMAL) CBC without differential (09/05/2024 4:27 AM VACUUM FORM OPERATOR) WBC 14.9(H) 3.8 - 9.9 K/cumm Comment:Testing performed by : [address] [address] Hgb 10.8(L) 11.9 - 15.5 g/dL [facility] Comment:Testing performed by : [address] [address] Hct 35.6 35.6 - 45.5 % [facility] Comment:Testing performed by : [address] [address] Plt 414(H) 150 - 400 K/cumm [facility] Comment:Testing performed by : [address] [address] MPV 9.4 9.1 - 12.3 fL [facility] Comment:Testing performed by : [address] [address] RBC 4.35 3.90 - 5.20 M/cumm [facility] Comment:Testing performed by : [address] [address] MCV 81.8 81.3 - 96.4 fL [facility] Comment:Testing performed by : [address] [address] MCH 24.8(L) 27.1 - 33.3 pg [facility] Comment:Testing performed by : [address] [address] MCHC 30.3(L) 32.3 - 35.7 g/dL [facility] Comment:Testing performed by : [address] [address] RDW CV 15.4(H) 11.1 - 14.9 % [facility] Comment:Testing performed by : [address] [address] RDW SD 46.2 35.7 - 48.1 fL [facility] Comment:Testing performed by : [address] [address] NRBC abs 0.00 0.00 - 0.01 K/cumm [facility] Comment:Testing performed by : [address] [address] Blood 09/05/2024 4:27 AM VACUUM FORM OPERATOR 09/05/2024 5:03 AM VACUUM FORM OPERATOR us Venkat Rudd MD LAB BLOOD ORDERABLES Fi nal Result [facility] [address] [facility] Department of Laboratories [place], [place] [id number] * (ABNORMAL) CBC without differential (09/04/2024 4:25 AM VACUUM FORM OPERATOR) Pathologist [facility] WBC 14.5(H) 3.8 - 9.9 K/cumm Comment:Testing performed by : [address] [address] Hgb 10.5(L) 11.9 - 15.5 g/dL [facility] Comment:Testing performed by : [address] [address] Hct 35.4(L) 35.6 - 45.5 % [facility] Comment:Testing performed by : [address] [address] Plt 392 150 - 400 K/cumm [facility] Comment:Testing performed by : [address] [place] [address] MPV 9.2 9.1 - 12.3 fL [facility] Comment:Testing performed by : [address] [address] RBC 4.27 3.90 - 5.20 M/cumm [facility] Comment:Testing performed by : [address] [address] MCV 82.9 81.3 - 96.4 fL [facility] Comment:Testing performed by : [address] [address] MCH 24.6(L) 27.1 - 33.3 pg [facility] Comment:Testing performed by : [address] [address] MCHC 29.7(L) 32.3 - 35.7 g/dL [facility] Comment:Testing performed by : [address], [address] RDW CV 15.6(H) 11.1 - 14.9 % [facility] Comment:Testing performed by : [address] [address] RDW SD 47.6 35.7 - 48.1 fL [facility] Comment:Testing performed by : [address] [address] NRBC abs 0.00 0.00 - 0.01 K/cumm [facility] Comment:Testing performed by : [address] [address] Blood 09/04/2024 4:25 AM VACUUM FORM OPERATOR 09/04/2024 4:41 AM VACUUM FORM OPERATOR us Venkat Rudd MD LAB BLOOD ORDERABLES Fi nal Result [facility] [address] [facility] Department of Laboratories [place], [place] [id number] * Troponin T high-sensitivity 2-hour (09/01/2024 5:11 PM VACUUM FORM OPERATOR) Trop T hs <6 <=14 ng/L Comment: Interpretive Data For further hscTnT resources including the diagnostic algorithm and an aid in interpretation, copy and paste this link: https://nrl.testcatalog.org/show/hsTrop Current Interpretive Data last revised 2020. Testing performed by: [address] [address] Trop T hs delta 0 ng/L [facility] Comment:Testing performed by : [address] [address] Trop T hs interp Insignificant [facility] Comment:Testing performed by : [address] [address] Blood 09/01/2024 5:11 PM VACUUM FORM OPERATOR 09/01/2024 5:14 PM VACUUM FORM OPERATOR us Wil Monteiro MD LAB BLOOD ORDERABLE S Final Result [facility] [address] [facility] Department [place] [address] * Urinalysis reflex to microscopic and culture Urine (09/01/2024 4:58 PM VACUUM FORM OPERATOR) Color, ur Yellow Yellow Comment:Testing performed by : [address] [address] Clarity, ur Clear Clear [facility] Comment:Testing performed by : [address] [address] Specific gravity, ur 1.015 1.003 - 1.030 [facility] Comment:Testing performed by : [address] [address] pH, urine 7.0 [facility] Comment: Interpretive Data U rine pH is affected by diet, medications, systemic acid-base disturbances, and renal tubular function. pH may affect urinary stone formation. For example, urine pH below 6.0 may help reduce the tendency for calcium phosphate stones and pH greater than 6.0 may reduce the tendency for uric acid stone formation. Source: [employer] Current Interpretive Data was last revised on 2017 Testing performed by: [address] [address] Protein, ur ql Negative Negative TAWNYA Comment:Testing performed by : [facility], [address] [place] [address], [place]., [address] Glucose, ur ql Negative Negative TAWNYA Comment:Testing performed by : [facility], [address] [place] [address], [place]., [address] Ketones, ur Negative Negative TAWNYA Comment:Testing performed by : [address], [place]., [address] Bilirubin, ur Negative Negative TAWNYA Comment:Testing performed by : [address], [place]., [address] Blood, ur Negative Negative TAWNYA Comment:Testing performed by : [address], [place]., [address] Urobilinogen, ur <2.0 <2.0 mg/dL TAWNYA Comment:Testing performed by : [address], [place]., [address] Nitrite, ur Negative Negative TAWNYA Comment:Testing performed by : [address], [place]., [address] Leukocyte esterase, ur Negative Negative TAWNYA Comment:Testing performed by : [address], [place]., [address] UA reflex comment Reflex conditions for microscopic UA and culture not met. TAWNYA Comment:Testing performed by : [address], [place]., [address] Urine 09/01/2024 4:58 PM VACUUM FORM OPERATOR 09/01/2024 4:59 PM VACUUM FORM OPERATOR us Wil Monteiro MD LAB MICROBIOLOGY - GENERAL ORDERABLES Final Result TAWNYA MILLS [address] [facility] Department [place] [address] * XR Chest 1 Vw Portable (09/01/2024 3:05 PM VACUUM FORM OPERATOR) Anatomical Region Laterality Modality Body, Chest N/A Computed Radiogr aphy 09/01/2024 3:19 PM VACUUM FORM OPERATOR Narrative 09/01/2024 3:22 PM VACUUM FORM OPERATOR EXAM DESCRIPTION: XR CHEST 1 VIEW REASON [...] Robi Arreola M.D. MZ: JEANNETTE Report ID: [id number] Reading Location: [place] [address] Procedure Note Robi Arreola MD - 09/01/2024 [...] Robi Arreola M.D. MZ: MZ Report ID: [id number] Reading Location: [id number] us Wil Monteiro MD IMG XR PROCEDURES F inal Result * Troponin T high-sensitivity series (baseline, 2hr, 4hr, 6hr) (09/01/2024 2:59 PM VACUUM FORM OPERATOR) Trop T hs <6 <=14 ng/L Comment: Interpretive Data For further hscTnT resources including the diagnostic algorithm and an aid in interpretation, copy and paste this link: https://nrl.testcatalog.org/show/hsTrop Current Interpretive Data last revised 2020. Testing performed by: [facility], [address] [place] [address]., [address] Blood 09/01/2024 2:59 PM VACUUM FORM OPERATOR 09/01/2024 3:03 PM VACUUM FORM OPERATOR us Wil Monteiro MD LAB BLOOD ORDERABLE S Final Result TAWNYA [address] [facility] Department [place] [address] * eGFR (09/01/2024 2:59 PM VACUUM FORM OPERATOR) eGFR >90 >=60 mL/min/1. 73 m2 Comment: [...] was last reviewed 2021. Testing performed by: [address] [address] Blood 09/01/2024 2:59 PM VACUUM FORM OPERATOR 09/01/2024 3:03 PM VACUUM FORM OPERATOR us Wil Monteiro MD LAB BLOOD ORDERABLE S Final Result TAWNYA [address] [facility] Department [place] [address] * (ABNORMAL) Differential, auto (09/01/2024 2:59 PM VACUUM FORM OPERATOR) Neutrophil abs 14.4(H) 1.5 - 6.5 K/cumm Comment:Testing performed by : [address] [address] Imm gran abs 0.2(H) 0.0 - 0.1 K/cumm TAWNYA Comment:Testing performed by : [address] [address] Lymphocyte abs 1.4 0.8 - 3.3 K/cumm TAWNYA Comment:Testing performed by : [address] [address] Monocyte abs 0.4 0.2 - 0.8 K/cumm TAWNYA Comment:Testing performed by : [address] [address] Eosinophil abs 0.0 0.0 - 0.5 K/cumm TAWNYA Comment:Testing performed by : [address] [address] Basophil abs 0.1 0.0 - 0.1 K/cumm TAWNYA Comment:Testing performed by : [address] [address] Neutrophil pct 87.3 % TAWNYA Comment: Interpretive Data Percent cell count reference ranges are not reported, since discordance with absolute values may lead to misinterpretation of CBC data. Current Interpretive Data was last revised on 2017. Testing performed by: [address] [address] Imm gran pct 0.9 % [facility] Comment: Interpretive Data Percent cell count reference ranges are not reported, since discordance with absolute values may lead to misinterpretation of CBC data. Current Interpretive Data was last revised on 2017. Testing performed by: [address] [address] Lymphocyte pct 8.7 % [facility] Comment: Interpretive Data Percent cell count reference ranges are not reported, since discordance with absolute values may lead to misinterpretation of CBC data. Current Interpretive Data was last revised on 2017. Testing performed by: [address] [address] Monocyte pct 2.7 % [facility] Comment: Interpretive Data Percent cell count reference ranges are not reported, since discordance with absolute values may lead to misinterpretation of CBC data. Current Interpretive Data was last revised on 2017. Testing performed by: [address] [address] Eosinophil pct 0.1 % [facility] Comment: Interpretive Data Percent cell count reference ranges are not reported, since discordance with absolute values may lead to misinterpretation of CBC data. Current Interpretive Data was last revised on 2017. Testing performed by: [address] [address] Basophil pct 0.3 % [facility] Comment: Interpretive Data Percent cell count reference ranges are not reported, since discordance with absolute values may lead to misinterpretation of CBC data. Current Interpretive Data was last revised on 2017. Testing performed by: [address] [address] Blood 09/01/2024 2:59 PM VACUUM FORM OPERATOR 09/01/2024 3:03 PM VACUUM FORM OPERATOR us Wil Monteiro MD LAB BLOOD ORDERABLE S Final Result Performing Organization Address City/State/[facility] Co de Phone Number [place] [phone] [place] [address] * Thyroid Function [place] (09/01/2024 2:59 PM VACUUM FORM OPERATOR) [facility] TSH 0.80 0.30 - 4.20 mcIUnit/mL Comment:Testing performed by : [address] [address] Blood 09/01/2024 2:59 PM VACUUM FORM OPERATOR 09/01/2024 3:03 PM VACUUM FORM OPERATOR us Wil Monteiro MD LAB BLOOD ORDERABLE S Final Result Performing Organization Address [facility] Co de Phone Number YA[address] [place] [address] * (ABNORMAL) CBC with auto differential (09/01/2024 2:59 PM VACUUM FORM OPERATOR) [facility] WBC 16.5(H) 3.8 - 9.9 K/cumm Comment:Testing performed by : [address] [address] Hgb 11.3(L) 11.9 - 15.5 g/dL TAWNYA Comment:Testing performed by : [address] [address] Hct 36.4 35.6 - 45.5 % TAWNYA Comment:Testing performed by : [address] [address] Plt 465(H) 150 - 400 K/cumm TAWNYA Comment:Testing performed by : [address] [address] MPV 9.0(L) 9.1 - 12.3 fL TAWNYA MILLS Comment:Testing performed by : [address] [address] RBC 4.54 3.90 - 5.20 M/cumm TAWNYA Comment:Testing performed by : [address] [address] MCV 80.2(L) 81.3 - 96.4 fL TAWNYA MILLS Comment:Testing performed by : [address], [address] MCH 24.9(L) 27.1 - 33.3 pg TAWNYA MILLS Comment:Testing performed by : [address] [address] MCHC 31.0(L) 32.3 - 35.7 g/dL TAWNYA MILLS Comment:Testing performed by : [address], [address] RDW CV 15.1(H) 11.1 - 14.9 % TAWNYA Comment:Testing performed by : [address], [address] RDW SD 44.1 35.7 - 48.1 fL TAWNYA Comment:Testing performed by : [address], [address] NRBC abs 0.00 0.00 - 0.01 K/cumm TAWNYA Comment:Testing performed by : [address], [address] Blood 09/01/2024 2:59 PM VACUUM FORM OPERATOR 09/01/2024 3:03 PM VACUUM FORM OPERATOR Wil Monteiro MD LAB BLOOD ORDERABLE S Final Result Performing Organization Address [facility] de Phone Number [facility] [address] Department [place] [address] * Magnesium (09/01/2024 2:59 PM VACUUM FORM OPERATOR) Magnesium 2.0 1.4 - 2.5 mg/dL Comment:Testing performed by : [address], [address] Blood 09/01/2024 2:59 PM VACUUM FORM OPERATOR 09/01/2024 3:03 PM VACUUM FORM OPERATOR Wil Monteiro MD LAB BLOOD ORDERABLE S Final Result Performing Organization Address City/[facility] de Phone Number TAWNYA [address] [facility] Department [place] [address] * Basic metabolic panel (09/01/2024 2:59 PM VACUUM FORM OPERATOR) Sodium 140 135 - 145 mmol/L Comment:Testing performed by : [facility], [address] [place] [address]., [address] Potassium, pl 4.0 3.3 - 4.9 mmol/L TAWNYA Comment:Testing performed by : [address], [place]., [address] Chloride 103 97 - 110 mmol/L TAWNYA Comment:Testing performed by : [address] [address] CO2 23 22 - 32 mmol/L TAWNYA Comment:Testing performed by : [address] [address] Anion gap 14 2 - 15 mmol/L TAWNYA Comment:Testing performed by : [address] [address] BUN 17 6 - 25 mg/dL TAWNYA Comment:Testing performed by : [address] [address] Creatinine 0.68 0.60 - 1.10 mg/dL TAWNYA Comment:Testing performed by : [address] [address] Glucose 147 70 - 199 mg/dL TAWNYA [...] was last revised 2022. Testing performed by: [address] [address] Calcium 9.3 8.5 - 10.3 mg/dL TAWNYA MILLS Comment:Testing performed by : [facility], [address] [place] [address]., [address] Blood 09/01/2024 2:59 PM VACUUM FORM OPERATOR 09/01/2024 3:03 PM VACUUM FORM OPERATOR Wil Monteiro MD LAB BLOOD ORDERABLE S Final Result TAWNYA [address] [facility] Department [place] [address] * POCT hCG, urine (09/01/2024 2:28 PM VACUUM FORM OPERATOR) HCG, ur, POC Negative Negative Lot Number [id number] QC Backgroud Clear Acceptable QC Control Line Acceptable Urine 09/01/2024 2:28 PM VACUUM FORM OPERATOR Wil Monteiro MD POINT OF CARE TEST ORDERABLES Final Result * ECG 12 lead (09/01/2024 1:54 PM VACUUM FORM OPERATOR) Ventricular Rate EKG/Min 153 BPM [facility] Atrial Rate 153 BPM [facility] NE-Interval (MSEC) 116 ms [facility] QRS-Interval (MSEC) 88 ms [facility] QT-Interval (MSEC) 328 ms [facility] QTc 523 ms [facility] P [place] 57 degrees [facility] R [place] 67 degrees [facility] T [place] 44 degrees [facility] Diagnosis Sinus tachycardia Otherwise normal ECG When compared with ECG of 20-AUG-2024 02:26, T wave inversion no longer evident in Anterior leads Confirmed by LAWRENCE YIP M.D. ([id number]) on 09/02/2024 9:10:[address] [facility] 09/01/2024 1:54 PM VACUUM FORM OPERATOR 09/02/2024 9:10 AM VACUUM FORM OPERATOR Wil Monteiro MD ECG ORDERABLES Fin al Result [facility] * eGFR (08/22/2024 7:57 AM VACUUM FORM OPERATOR) eGFR >90 >=60 mL/min/1. 73 m2 Comment: [...] was last reviewed 2021. Testing performed by: [address] [address] Blood 08/22/2024 7:57 AM VACUUM FORM OPERATOR 08/22/2024 8:11 AM VACUUM FORM OPERATOR us José Luis Tripp MD LAB BLOOD ORDERABLES Final Re sult TAWNYA [address] [facility] Department [place] [address] * (ABNORMAL) CBC without differential (08/22/2024 7:57 AM VACUUM FORM OPERATOR) WBC 11.8(H) 3.8 - 9.9 K/cumm Comment:Testing performed by : [address] [address] Hgb 10.4(L) 11.9 - 15.5 g/dL TAWNYA MILLS Comment:Testing performed by : [address] [address] Hct 33.4(L) 35.6 - 45.5 % TAWNYA Comment:Testing performed by : [address] [place] [address] Plt 450(H) 150 - 400 K/cumm TAWNYA Comment:Testing performed by : [address] [address] MPV 9.0(L) 9.1 - 12.3 fL TAWNYA Comment:Testing performed by : [address] [address] RBC 4.12 3.90 - 5.20 M/cumm TAWNYA Comment:Testing performed by : [address] [address] MCV 81.1(L) 81.3 - 96.4 fL TAWNYA Comment:Testing performed by : [address] [address] MCH 25.2(L) 27.1 - 33.3 pg TAWNYA Comment:Testing performed by : [address] [address] MCHC 31.1(L) 32.3 - 35.7 g/dL TAWNYA Comment:Testing performed by : [address] [address] RDW CV 15.5(H) 11.1 - 14.9 % TAWNYA Comment:Testing performed by : [address] [address] RDW SD 45.6 35.7 - 48.1 fL TAWNYA Comment:Testing performed by : [address], [address] NRBC abs 0.00 0.00 - 0.01 K/cumm TAWNYA Comment:Testing performed by : [address] [address] Blood 08/22/2024 7:57 AM VACUUM FORM OPERATOR 08/22/2024 8:11 AM VACUUM FORM OPERATOR us Jorje Huynh MD LAB BLOOD ORDERABLES Final Result TAWNYA [address] [facility] Department of Laboratories [place], [place] [id number] * Basic metabolic panel (08/22/2024 7:57 AM VACUUM FORM OPERATOR) Sodium 137 135 - 145 mmol/L Comment:Testing performed by : [address] [address] Potassium, pl 3.7 3.3 - 4.9 mmol/L [facility] Comment:Testing performed by : [address] [address] Chloride 103 97 - 110 mmol/L [facility] Comment:Testing performed by : [address], [place]., [address] CO2 23 22 - 32 mmol/L [facility] Comment:Testing performed by : [address] [address] Anion gap 11 2 - 15 mmol/L [facility] Comment:Testing performed by : [address] [address] BUN 16 6 - 25 mg/dL [facility] Comment:Testing performed by : [address], [place]., [address] Creatinine 0.71 0.60 - 1.10 mg/dL [facility] Comment:Testing performed by : [address] [address] Glucose 102 70 - 199 mg/dL [facility] Comment: Interpretive Data Fasting glucose >/= 126 [...] was last revised 2022. Testing performed by: [address] [address] Calcium 9.0 8.5 - 10.3 mg/dL [facility] Comment:Testing performed by : [address] [address] Blood 08/22/2024 7:57 AM VACUUM FORM OPERATOR 08/22/2024 8:11 AM VACUUM FORM OPERATOR us José Luis Tripp MD LAB BLOOD ORDERABLES Final Re sult Performing Organization Address [facility] Co de Phone Number TAWNYA [address] [place] [address] * eGFR (08/21/2024 7:53 AM VACUUM FORM OPERATOR) eGFR >90 >=60 mL/min/1. 73 m2 Comment: [...] was last reviewed 2021. Testing performed by: [facility], [address] [place] [address]., [address] Blood 08/21/2024 7:53 AM VACUUM FORM OPERATOR 08/21/2024 8:14 AM VACUUM FORM OPERATOR us José Luis Tripp MD LAB BLOOD ORDERABLES Final Re sult Performing Organization Address City/[facility]/ZIP Co de Phone Number TAWNYA [address] Department [place] [address] * (ABNORMAL) CBC without differential (08/21/2024 7:53 AM VACUUM FORM OPERATOR) WBC 11.9(H) 3.8 - 9.9 K/cumm Comment:Testing performed by : [address] [address] Hgb 11.2(L) 11.9 - 15.5 g/dL TAWNYA Comment:Testing performed by : [address] [address] Hct 35.2(L) 35.6 - 45.5 % TAWNYA Comment:Testing performed by : [address] [address] Plt 481(H) 150 - 400 K/cumm [facility] Comment:Testing performed by : [address] [address] MPV 9.0(L) 9.1 - 12.3 fL TAWNYA Comment:Testing performed by : [address], [address] RBC 4.41 3.90 - 5.20 M/cumm TAWNYA Comment:Testing performed by : [address] [address] MCV 79.8(L) 81.3 - 96.4 fL [facility] Comment:Testing performed by : [address] [address] MCH 25.4(L) 27.1 - 33.3 pg [facility] Comment:Testing performed by : [address] [address] MCHC 31.8(L) 32.3 - 35.7 g/dL TAWNYA Comment:Testing performed by : [address], [address] RDW CV 15.6(H) 11.1 - 14.9 % TAWNYA Comment:Testing performed by : [address], [address] RDW SD 44.8 35.7 - 48.1 fL TAWNYA Comment:Testing performed by : [address] [address] NRBC abs 0.00 0.00 - 0.01 K/cumm TAWNYA Comment:Testing performed by : [address], [address] Blood 08/21/2024 7:53 AM VACUUM FORM OPERATOR 08/21/2024 8:15 AM VACUUM FORM OPERATOR us Jorje Huynh MD LAB BLOOD ORDERABLES Final Result TAWNYA [address] [facility] Department [place] [address] * Basic metabolic panel (08/21/2024 7:53 AM VACUUM FORM OPERATOR) Sodium 139 135 - 145 mmol/L Comment:Testing performed by : [address] [address] Potassium, pl 3.5 3.3 - 4.9 mmol/L TAWNYA Comment:Testing performed by : [address] [address] Chloride 102 97 - 110 mmol/L TAWNYA Comment:Testing performed by : [address] [address] CO2 23 22 - 32 mmol/L TAWNYA Comment:Testing performed by : [address] [address] Anion gap 14 2 - 15 mmol/L TAWNYA Comment:Testing performed by : [address] [address] BUN 11 6 - 25 mg/dL TAWNYA Comment:Testing performed by : [address] [address] Creatinine 0.70 0.60 - 1.10 mg/dL TAWNYA Comment:Testing performed by : [address] [address] Glucose 91 70 - 199 mg/dL TAWNYA [...] was last revised 2022. Testing performed by: [facility], [address] [place] [address]., [address] Calcium 9.4 8.5 - 10.3 mg/dL TAWNYA MILLS Comment:Testing performed by : [facility], [address] [place] [address]., [address] Blood 08/21/2024 7:53 AM VACUUM FORM OPERATOR 08/21/2024 8:14 AM VACUUM FORM OPERATOR us José Luis Tripp MD LAB BLOOD ORDERABLES Final Re sult TAWNYA GENE [address] [facility] Department [place] [address] * NE CLOSED TX TEMPOROMANDIBULAR DISLOCATION 1ST/SBSQ (08/20/2024 1:18 PM VACUUM FORM OPERATOR) Narrative Abhay Velez MD - 08/20/2024 1:18 PM VACUUM FORM OPERATOR Abhay Velez MD 08/20/2024 1:33 PM Orthopedic Injury Treatment - Jaw Dislocation Date/Time: 08/20/2024 1:18 PM Performed by: Abhay Velez MD Authorized by: Abhay Velez MD RN Notified of Procedure: yes Informed consent: Risks, benefits, alternatives discussed and patient/motor vehicle field representative/guardian agrees and accepts Patient's stated name/ [...] Result * Procedural Sedation (08/20/2024 1:18 PM VACUUM FORM OPERATOR) Narrative Abhay Velez MD - 08/20/2024 1:18 PM VACUUM FORM OPERATOR Abhay Velez MD 08/20/2024 1:32 PM Procedural Sedation Date/Time: 08/20/2024 1:18 PM Performed by: Abhay Velez MD Authorized by: Abhay Velez MD [place] Protocol: RN Notified of Procedure: yes Informed consent: Risks, benefits, alternatives discussed and patient/motor vehicle field representative/guardian agrees and accepts Patient's stated name/ [...] Less than 4 Views (08/20/2024 11:41 AM VACUUM FORM OPERATOR) Anatomical Region Laterality Modality Head and Neck N/A Computed Radiogr aphy 08/20/2024 11:5 5 AM VACUUM FORM OPERATOR Narrative 08/20/2024 12:02 PM VACUUM FORM OPERATOR EXAM DESCRIPTION: XR MANDIBLE LESS THAN 4 [...] Rohan Ramos M.D. LB: EDGARDO Report ID: [id number] Reading Location: [id number] Procedure Note Rohan Ramos MD - 08/20/2024 [...] Rohan Ramos M.D. LB: ED[place] Report ID: [id number] Reading Location: [id number] us Jorje Huynh MD IMG XR PROCEDURES Final Re sult * Sepsis Lactate w/ Reflex (08/20/2024 8:24 AM VACUUM FORM OPERATOR) Sepsis Lactate 1.3 0.7 - 2.0 mmol/L Comment:Testing performed by : [facility], [address] [place] [address]., [address] Blood 08/20/2024 8:24 AM VACUUM FORM OPERATOR 08/20/2024 8:29 AM VACUUM FORM OPERATOR us Erik Westbrook NP LAB BLOOD ORDERABLES Final Resul t TAWNYA [address] [facility] Department of Laboratories [place] [id number] * (ABNORMAL) Sepsis Lactate w/ Reflex (08/20/2024 3:25 AM VACUUM FORM OPERATOR) [facility] Sepsis Lactate 2.6(C) 0.7 - 2.0 mmol/L Comment: Critical Result called to and read back by [id number], DATE: 2024-08-20 04:23:15 BY: [id number] Testing performed by: [address] [address] Blood 08/20/2024 3:25 AM VACUUM FORM OPERATOR 08/20/2024 4:00 AM VACUUM FORM OPERATOR us Erik West[place] NP LAB BLOOD ORDERABLES Final Resul t TAWNYA [address] [facility] [place] [address] * eGFR (08/20/2024 3:25 AM VACUUM FORM OPERATOR) [facility] eGFR >90 >=60 mL/min/1. 73 m2 Comment: [...] was last reviewed 2021. Testing performed by: [address] [address] Blood 08/20/2024 3:25 AM VACUUM FORM OPERATOR 08/20/2024 4:00 AM VACUUM FORM OPERATOR us José Luis Tripp MD LAB BLOOD ORDERABLES Final Re sult TAWNYA [address] [facility] Department [place] [address] * (ABNORMAL) CBC without differential (08/20/2024 3:25 AM VACUUM FORM OPERATOR) WBC 12.4(H) 3.8 - 9.9 K/cumm Comment:Testing performed by : [address] [address] Hgb 10.3(L) 11.9 - 15.5 g/dL TAWNYA Comment:Testing performed by : [address] [address] Hct 32.7(L) 35.6 - 45.5 % TAWNYA Comment:Testing performed by : [address] [address] Plt 467(H) 150 - 400 K/cumm TAWNYA Comment:Testing performed by : [address] [address] MPV 9.1 9.1 - 12.3 fL TAWNYA Comment:Testing performed by : [address] [address] RBC 4.09 3.90 - 5.20 M/cumm TAWNYA Comment:Testing performed by : [address] [address] MCV 80.0(L) 81.3 - 96.4 fL TAW[facility]A Comment:Testing performed by : [address] [address] MCH 25.2(L) 27.1 - 33.3 pg TAWNYA MILLS Comment:Testing performed by : [address] [address] MCHC 31.5(L) 32.3 - 35.7 g/dL TAW[facility]A Comment:Testing performed by : [address] [address] RDW CV 15.1(H) 11.1 - 14.9 % TAWNYA MILLS Comment:Testing performed by : [address] [address] RDW SD 43.8 35.7 - 48.1 fL TAWNYA MILLS Comment:Testing performed by : [address] [address] NRBC abs 0.00 0.00 - 0.01 K/cumm TAWNYA MILLS Comment:Testing performed by : [address] [address] Blood 08/20/2024 3:25 AM VACUUM FORM OPERATOR 08/20/2024 4:00 AM VACUUM FORM OPERATOR us José Luis Tripp MD LAB BLOOD ORDERABLES Final Re sult TAWNYA [address] [facility] Department [place] [address] * (ABNORMAL) Basic metabolic panel (08/20/2024 3:25 AM VACUUM FORM OPERATOR) Sodium 138 135 - 145 mmol/L Comment:Testing performed by : [address] [address] Potassium, pl 4.4 3.3 - 4.9 mmol/L TAWNYA MILLS Comment: Hemolyzed; Potassium value may be falsely elevated by as much as 1.0 mmol/L. Suggest redraw and reanalysis. Testing performed by: [address] [address] Chloride 104 97 - 110 mmol/L TAWNYA MILLS Comment:Testing performed by : [address] [address] CO2 20(L) 22 - 32 mmol/L TAWNYA MILLS Comment:Testing performed by : [address] [address] Anion gap 14 2 - 15 mmol/L TAWNYA MILLS Comment:Testing performed by : [address] [address] BUN 8 6 - 25 mg/dL TAWNYA MILLS Comment:Testing performed by : [address] [place] [address] Creatinine 0.64 0.60 - 1.10 mg/dL TAWNYA Comment:Testing performed by : [address] [address] Glucose 179 70 - 199 mg/dL TAWNYA [...] was last revised 2022. Testing performed by: [address] [address] Calcium 9.5 8.5 - 10.3 mg/dL TAWNYA Comment:Testing performed by : [address] [address] Blood 08/20/2024 3:25 AM VACUUM FORM OPERATOR 08/20/2024 4:00 AM VACUUM FORM OPERATOR us José Luis Tripp MD LAB BLOOD ORDERABLES Final Re sult [facility] [address] [facility] Department of Laboratories [place], [place] [id number] * ECG 12 lead (08/20/2024 2:26 AM VACUUM FORM OPERATOR) Ventricular Rate EKG/Min 148 BPM [facility] Atrial Rate 148 BPM [facility] NE-Interval (MSEC) 114 ms [facility] QRS-Interval (MSEC) 100 ms [facility] QT-Interval (MSEC) 336 ms [facility] QTc 527 ms [facility] P [place] 51 degrees [facility] R [place] 73 degrees [facility] T [place] 35 degrees [facility] Diagnosis Sinus tachycardia Incomplete right bundle branch block Nonspecific T wave abnormality Abnormal ECG When compared with ECG of 19-AUG-2024 20:25, No significant change was found Confirmed by BELIA CHU M.D. ([id number]) on 08/21/2024 5:20:[address] [facility] 08/20/2024 2:26 AM VACUUM FORM OPERATOR 08/21/2024 5:20 AM VACUUM FORM OPERATOR us Jorje Huynh MD ECG ORDERABLES Final Resu lt Performing Organization Address City/[facility]/ZIP Co de Phone Number [facility] * (ABNORMAL) Sepsis Lactate w/ Reflex (08/19/2024 8:52 PM VACUUM FORM OPERATOR) Pathologist [facility] Sepsis Lactate 2.4(C) 0.7 - 2.0 mmol/L Comment: Critical Result called to and read back by [email or web address], DATE: 2024-08-19 21:21:33 BY: [id number] Testing performed by: [facility], [address] [place] [address]., [id number] Blood 08/19/2024 8:52 PM VACUUM FORM OPERATOR 08/19/2024 8:55 PM VACUUM FORM OPERATOR us Erik Westbrook NP LAB BLOOD ORDERABLES Final Resul t Performing Organization Address City/[facility] Co de Phone Number [facility] [address] [facility] Department of Laboratories [place], [place] [id number] * ECG 12 lead (08/19/2024 8:25 PM VACUUM FORM OPERATOR) Ventricular Rate EKG/Min 129 BPM [facility] Atrial Rate 129 BPM [facility] NE-Interval (MSEC) 138 ms [facility] QRS-Interval (MSEC) 100 ms [facility] QT-Interval (MSEC) 316 ms [facility] QTc 462 ms [facility] P [place] 55 degrees [facility] R [place] 49 degrees [facility] T [place] [address] [facility] Diagnosis Sinus tachycardia Possible Left atrial enlargement Incomplete right bundle branch block Borderline ECG When compared with ECG of 21-MAY-2024 14:20, No significant change was found Confirmed by ZANE SORTO M.D. ([id number]) on 08/20/2024 11:59:[address] [facility] 08/19/2024 8:25 PM VACUUM FORM OPERATOR 08/20/2024 11:59 PM VACUUM FORM OPERATOR Erik Westbrook NP ECG ORDERABLES Final Result [facility] * eGFR (08/19/2024 8:20 PM VACUUM FORM OPERATOR) eGFR >90 >=60 mL/min/1. 73 m2 Comment: [...] was last reviewed 2021. Testing performed by: [address] [address] Blood 08/19/2024 8:20 PM VACUUM FORM OPERATOR 08/19/2024 8:24 PM VACUUM FORM OPERATOR Erik Westbrook NP LAB BLOOD ORDERABLES Final Resul t TAWNYA [address] [facility] Department [place] [address] * (ABNORMAL) Differential, auto (08/19/2024 8:20 PM VACUUM FORM OPERATOR) Neutrophil abs 17.7(H) 1.5 - 6.5 K/cumm Comment:Testing performed by : [address] [place]., [address] Imm gran abs 0.1 0.0 - 0.1 K/cumm [facility] Comment:Testing performed by : [address] [address] Lymphocyte abs 0.6(L) 0.8 - 3.3 K/cumm [facility] Comment:Testing performed by : [address] [address] Monocyte abs 0.4 0.2 - 0.8 K/cumm [facility] Comment:Testing performed by : [address] [address] Eosinophil abs 0.0 0.0 - 0.5 K/cumm [facility] Comment:Testing performed by : [address] [address] Basophil abs 0.1 0.0 - 0.1 K/cumm [facility] Comment:Testing performed by : [address] [address] Neutrophil pct 94.0 % [facility] Comment: Interpretive Data Percent cell count reference ranges are not reported, since discordance with absolute values may lead to misinterpretation of CBC data. Current Interpretive Data was last revised on 2017. Testing performed by: [address] [address] Imm gran pct 0.4 % [facility] Comment: Interpretive Data Percent cell count reference ranges are not reported, since discordance with absolute values may lead to misinterpretation of CBC data. Current Interpretive Data was last revised on 2017. Testing performed by: [address] [address] Lymphocyte pct 3.1 % [facility] Comment: Interpretive Data Percent cell count reference ranges are not reported, since discordance with absolute values may lead to misinterpretation of CBC data. Current Interpretive Data was last revised on 2017. Testing performed by: [address] [address] Monocyte pct 2.2 % [facility] Comment: Interpretive Data Percent cell count reference ranges are not reported, since discordance with absolute values may lead to misinterpretation of CBC data. Current Interpretive Data was last revised on 2017. Testing performed by: [address] [address] Eosinophil pct 0.0 % [facility] Comment: Interpretive Data Percent cell count reference ranges are not reported, since discordance with absolute values may lead to misinterpretation of CBC data. Current Interpretive Data was last revised on 2017. Testing performed by: [address] [address] Basophil pct 0.3 % [facility] Comment: Interpretive Data Percent cell count reference ranges are not reported, since discordance with absolute values may lead to misinterpretation of CBC data. Current Interpretive Data was last revised on 2017. Testing performed by: [address] [address] Blood 08/19/2024 8:20 PM VACUUM FORM OPERATOR 08/19/2024 8:24 PM VACUUM FORM OPERATOR us Erik Westbrook [employer]ILDLAND [employer] LAB BLOOD ORDERABLES Final Resul t [facility] [address] [facility] Department [place] [address] * (ABNORMAL) CBC with auto differential (08/19/2024 8:20 PM VACUUM FORM OPERATOR) WBC 18.8(H) 3.8 - 9.9 K/cumm Comment:Testing performed by : [address] [address] Hgb 10.7(L) 11.9 - 15.5 g/dL [facility] Comment:Testing performed by : [address] [address] Hct 33.3(L) 35.6 - 45.5 % [facility] Comment:Testing performed by : [address] [address] Plt 502(H) 150 - 400 K/cumm [facility] Comment:Testing performed by : [address] [address] MPV 8.9(L) 9.1 - 12.3 fL [facility] Comment:Testing performed by : [address] [address] RBC 4.21 3.90 - 5.20 M/cumm [facility] Comment:Testing performed by : [address] [address] MCV 79.1(L) 81.3 - 96.4 fL [facility] Comment:Testing performed by : [address] [address] MCH 25.4(L) 27.1 - 33.3 pg [facility] Comment:Testing performed by : [address] [address] MCHC 32.1(L) 32.3 - 35.7 g/dL [facility] Comment:Testing performed by : [address] [address] RDW CV 14.9 11.1 - 14.9 % [facility] Comment:Testing performed by : [address] [address] RDW SD 43.0 35.7 - 48.1 fL [facility] Comment:Testing performed by : [address] [address] NRBC abs 0.00 0.00 - 0.01 K/cumm [facility] Comment:Testing performed by : [address] [address] Blood 08/19/2024 8:20 PM VACUUM FORM OPERATOR 08/19/2024 8:24 PM VACUUM FORM OPERATOR us Erik Westbrook NP LAB BLOOD ORDERABLES Final Resul t [facility] [address] [facility] Department [place] [address] * Comprehensive metabolic panel (08/19/2024 8:20 PM VACUUM FORM OPERATOR) Sodium 140 135 - 145 mmol/L Comment:Testing performed by : [address] [address] Potassium, pl 3.5 3.3 - 4.9 mmol/L [facility] Comment:Testing performed by : [address] [address] Chloride 104 97 - 110 mmol/L [facility] Comment:Testing performed by : [address], [place]., [address] CO2 23 22 - 32 mmol/L [facility] Comment:Testing performed by : [address] [address] Anion gap 13 2 - 15 mmol/L [facility] Comment:Testing performed by : [address], [place]., [address] BUN 11 6 - 25 mg/dL [facility] Comment:Testing performed by : [address] [address] Creatinine 0.71 0.60 - 1.10 mg/dL [facility] Comment:Testing performed by : [address] [address] Glucose 136 70 - 199 mg/dL [facility] Comment: Interpretive Data Fasting glucose >/= 126 [...] was last revised 2022. Testing performed by: [address] [address] Calcium 9.2 8.5 - 10.3 mg/dL [facility] Comment:Testing performed by : [address] [address] Bilirubin, total <0.2 0.1 - 1.2 mg/dL [facility] Comment:Testing performed by : [address] [address] Protein, pl 7.5 6.5 - 8.5 g/dL [facility] Comment:Testing performed by : [address] [address] Albumin 4.4 3.5 - 5.0 g/dL [facility] Comment:Testing performed by : [address] [address] Alk phos 74 40 - 130 Units/L [facility] Comment:Testing performed by : [address] [address] ALT 29 7 - 45 Units/L [facility] Comment:Testing performed by : [address] [address] AST 19 10 - 45 Units/L [facility] Comment:Testing performed by : [address] [address] Blood 08/19/2024 8:20 PM VACUUM FORM OPERATOR 08/19/2024 8:24 PM VACUUM FORM OPERATOR us Erik Westbrook NP LAB BLOOD ORDERABLES Final Resul t [facility] [address] [facility] Department [place] [address] * Critical Care (08/19/2024 5:13 PM VACUUM FORM OPERATOR) Narrative Erik Westbrook NP - 08/19/2024 5:13 PM VACUUM FORM OPERATOR Erik Westbrook NP 08/19/2024 9:10 PM Critical [...] Final Result from Last 3 Months Insurance [facility] OPEN ACCESS [facility] CHOICE PLUS [facility] CHOICE PLUS Advance Directives For more information, please contact: [phone] * Full Code (Latest Code Status on File) Date Activated Date Inactivated Comments 09/23/2024 7:38 PM 09/24/2024 5:41 PM * Full Code Date Activated Date Inactivated Comments 09/01/2024 7:30 PM 09/05/2024 3:39 PM * Full Code Date Activated Date Inactivated Comments 08/19/2024 9:45 PM 08/22/2024 5:15 PM Care Teams Box Car Bracer Relationship Specialty Start Date End Date Shannan Maldonado MD PCP - General 09/07/19
--- OUTSIDE RECORDS SUMMARY | 2024-09-26 12:49 | XMS_ITS | Encounter Summary ---
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 Gender Identity Female 07/01/2022 7:31 PM BRIDAL STYLIST SALES CONSULTANT Sexual Orientation Not on file documented as of this encounter Plan of Treatment Not on file documented as of this encounter Procedures Procedure Name Priority Date/Time Associated Diagnosis Comments SCAN - LABS 10/28/2021 documented in this encounter Results * SCAN - LABS (10/28/2021) us Provider Scanning Final Result documented in this encounter Visit Diagnoses Not on filedocumented in this encounter Care Teams Glue Mill Operator Relationship Specialty Start Date End Date Shannan Maldonado MD PCP - General 09/07/19 documented as of this encounter
--- OUTSIDE RECORDS SUMMARY | 2024-09-26 12:49 | XMS_ITS | Clinical Summary ---
Author Organization [facility] Address [address] [place] [address] Care Team Providers Care Echocardiograph Technician Name Role Phone Shannan Maldonado MD Primary Care Provider [phone] Source Comments [facility],non-[facility] Affiliates and Associated Physician Practices is amultiple site organization consisting of ambulatory clinics and hospital sitesin [place], [place], [place] and [place]. This disclosure is being madepursuant to the Care Everywhere program and may not contain all information available regarding this patient. Last updated 18.[facility] Allergies Active Allergy Reactions Criticality Noted Date [...] fluticasone propionate (FLONASE) 50 MCG/ACT nasal spray [place] 2 sprays into each nostril once daily [...] 06/13/2019 Assessment & Plan (06/13/2019 10:22 AM RISK MGR): POTS patients commonly have mast cell disorders. [...] 2015 Assessment & Plan (06/13/2019 10:19 AM RISK MGR): Would avoid high osmotic salt loads/salt tablets. Ok to just liberalize salt intake and eat banannas for potassium Postural orthostatic tachycardia syndrome 2015 Assessment & Plan (09/05/2019 10:06 AM RISK MGR): Her symptoms are well-controlled today. She dislocated [...] intake. Assessment & Plan (06/13/2019 10:47 AM RISK MGR): Postural orthostatic tachycardia syndrome (POTS) is a [...] 05/21/2010 Assessment & Plan (09/05/2019 10:07 AM RISK MGR): She had a routine screening echo today. Her aortic root today does not appear dilated by my view. Will await final read and call her if this is abnormal. Otherwise, q2yr echo. Assessment & Plan (06/13/2019 10:18 AM RISK MGR): The patient was diagnosed with EDS several [...] Comments Blood Pressure 122/90 09/05/2019 9:40 AM RISK MGR Pulse 112 09/05/2019 9:40 AM RISK MGR Temperature 36.8 C (98.2 F) 03/02/2019 7:52 AM CDT Respiratory Rate 18 03/02/2019 7:52 AM CDT Oxygen Saturation 99% 06/13/2019 8:42 AM RISK MGR Inhaled Oxygen Concentration - - Weight 63.5 kg (140 lb) 09/05/2019 8:22 AM RISK MGR Height 170.2 cm (5' 7 ) 09/05/2019 8:22 AM RISK MGR Body Mass Index 21.93 09/05/2019 8:22 AM RISK MGR Plan of Treatment Upcoming Encounters Date Type Department Care Team (Late st Contact Info) Description 11/08/2024 3:40 PM CDT Office Visit [facility] - Cardiology [address], [address] [place] [address] Javed Julio MD [address] [place] [address] Health Maintenance Due Date Last [...] ve Non-react hayder 02/28/2019 4:05 PM CDT [facility] Comment: Neither HIV-1 p24 Antigen nor HIV-1/HIV-2 Antibodies are detected. Blood BLOOD SPECIMEN / Unknown Venipuncture / Unknown 02/28/2019 1:57 PM CDT 02/28/2019 3:22 PM CDT Abel Barrientos MD LAB - HEMATOLOGY ORD ERABLES [address] [phone] from Last 3 Months or Most Recently Relevant to Health Maintenance Advance Directives * Full Code (Latest Code Status on File) Date Activated Date Inactivated Comments 02/28/2019 11:41 PM 03/02/2019 12:34 PM * Full Code Date Activated Date Inactivated Comments 02/28/2019 8:46 PM 02/28/2019 11:41 PM Care Teams Echocardiograph Technician Relationship Specialty Start Date End Date Shannan aMldonado MD [address] [place] [address] PCP - General Family Medicine 03/22/16
--- OUTSIDE RECORDS SUMMARY | 2024-09-26 12:49 | XMS_ITS | Continuity of Care Document ---
Author Organization [facility] Address [address] [place] [address] Phone Care Team Providers Care Electrical Assistant Name Role Phone Manuel Anthony MD Unavailable [...] Diagnoses Date Provider Providers Copied on Encounter [facility], [address], [place], [place], [id number] , [place] tel: [phone] [facility] No Information 2 Gabrielle Jackson. [address] , [place], [place], [address] , [place]. tel: [phone] Referring Provider: Lazarus Blandon, [address], [place], [address]. tel:[phone] [facility], [address], [place], [place], [address] , [place] tel: [phone] [facility] No Information [address] [place] [address], [id number] , [place]. tel: [phone] [facility], [address], [place], [place], [address] , [place] tel: [phone] [facility] Abdominal pain, unspecified abdominal locationGastroesop hageal reflux disease without esophagitisFlatule nce symptomIrritable bowel syndrome without diarrhea 6 Aida Nava. [address], [address], [place], [place], [address] , [place]. tel: [phone] Referring Provider: Shannan Maldonado, [address], [place], [address]. tel:[phone] [facility], [address], [place], [place], [address] , [place] tel: [phone] [facility] No Information 5 Lawson [address], [id number] , [place]. tel: [phone] [facility], [address], [place], [place], [address] , [place] tel: [phone] [facility] Anaphylaxis, initial encounter Lawson Cai. [address], [id number] , [place]. tel: [phone] [facility], [address], [place], [place], [address] , tel: [phone] [facility] Anaphylaxis, initial encounter Lawson Cai. [address], [id number] , [place]. tel: [phone] [facility], [address], [place], [place], [address] , tel: [phone] [facility] An[facility]axis, initial encounter Lawson Cai. [address], [id number] , [place]. tel: [phone] Referring Provider: Shannan Maldonado [address] [place], [address]. tel:[phone] Family History Family Member Type Diagnosis Age At Onset No Information Payers Payer name Insurance type Covered alliance party ID Herminia cervantes(s) SANYA PASTRANA CI [id number] Social History Type Description Quantity Date Captured [...]
--- NOTE | 2024-09-26 14:35 | ED_ITS ---
HPI - General Adult General Chief complaint: Allergic Reaction Stated complaint: allergic reaction Time Seen by Provider: 09/26/24 10:53 History of Present Illness HPI narrative: This is a 34-year-old female with with recurrent allergic reactions presenting with allergic reaction. Patient says she has been having a flare since August. She has had multiple hospitalizations during this time at [facility]. Patient's symptoms include tingling her tongue throat. Redness and itchi ness around her chest and neck. She denies nausea vomiting diarrhea, shortness of breath wheezing or stridor. She gave herself her EpiPen prior to arrival. Related Data Home Medications ?Medication ?Instructions ?Recorded ?Confirmed ?Last Taken ?Type epinephrine 0.3 mg/0.3 mL 0.3 mg IM ONCE PRN Allergic 05/30/23 08/26/24 Unknown History injection, auto-injector Reaction famotidine 40 mg tablet 40 mg PO DAILY 05/30/23 08/26/24 Unknown History drospirenone 3 mg-ethinyl 1 tablet PO DAILY 08/08/24 08/26/24 Unknown History estradiol 0.03 mg tablet (Dana (28)) Allergies Allergy/AdvReac Type Severity Reaction Status Date / Time peanut Allergy Severe Anaphylaxis, Verified 09/26/24 11:08 HIVES tree nut Allergy Severe Anaphylaxis Verified 09/26/24 11:08 hydromorphone Allergy Intermediate Hives / Verified 09/26/24 11:08 Red Face clarithromycin Allergy Mild N/V Verified 09/26/24 11:08 hydrocodone Allergy Mild Itching Verified 09/26/24 11:08 meperidine Allergy Mild Nausea and Verified 09/26/24 11:08 Vomiting azithromycin Allergy Unknown N/V, Verified 09/26/24 11:08 DIARRHEA, ABD CRAMPING. duloxetine Allergy Unknown BULGING Verified 09/26/24 11:08 EYES ondansetron Allergy Unknown PROLONGED Verified 09/26/24 11:08 QT lorazepam AdvReac Irritable Verified 09/26/24 11:08 ENERGY DRINKS Allergy Mild ORAL Uncoded 09/26/24 11:08 SWELLING WATERMELON-LEMON [place] SLURPY Allergy Mild ORAL Uncoded 09/26/24 11:08 SWELLING PMFSH Past Medical History Medical History GERD (gastroesophageal reflux disease) Chronic constipation Early satiety Nausea and vomiting Mast cell activation syndrome Dislocation of toe of right foot Anxiety Idiopathic anaphylaxis 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 Code status: Full code. Smoking status: Never smoker Second hand tobacco smoke exposure: No Alcohol intake: current Drinks per week: 1 Alcohol use details: VERY RARE Substance use: never Substance use type: does not use Lack of Transportation: No Lack of Food: Never True Current Housing: I Have Housing Concerned About Future Housing: No Difficulty Paying Gas/Electric Bills: No Difficulty Paying for Meds: No Currently Unemployed: No Education: High School Diploma/GED Difficulty w/ Childcare or Family Care: No Living arrangements: with family Additional living arrangements comments: Lives in [place] with her . No children. She is adopted. 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 Gender identity (if verbalized by the patient): Female Sexual Orientation (if Verbalized by the Patient): Straight or Heterosexual Spiritual care concerns: No Exam Narrative: APPEARANCE: No apparent distress. Very anxious appearing Head: atraumatic. No swelling the tongue, lips, or uvula no voice changes EYES: EOMI, NOSE: Atraumatic NECK: Trachea midline no stridor RESPIRATORY: No increased rate of breathing clear to auscultation CARDIOVASCULAR: RRR, ABDOMINAL: Non-distended MUSCULOSKELETAl: No obvious deformities NEURO: Alert. Moving 4/4 extremities SKIN:: Warm, dry. Normal color PSYCHIATRIC: Normal affect Course Vital Signs Vital signs: Vital Signs Temperature 97.6 F 09/26/24 10:25 Pulse Rate 144 H 09/26/24 10:25 Respiratory Rate 19 09/26/24 10:25 Blood Pressure 167/91 H 09/26/24 10:25 Pulse Oximetry 100 09/26/24 10:25 Oxygen Delivery Room Air 09/26/24 10:25 Temperature 97.6 F 09/26/24 10:25 Pulse Rate 126 H 09/26/24 14:16 Respiratory Rate 28 H 09/26/24 14:16 Blood Pressure 150/99 H 09/26/24 14:16 Pulse Oximetry 98 09/26/24 14:16 Oxygen Delivery Room Air 09/26/24 11:20 Medical Decision Making MDM Narrative Medical decision making narrative: -Course: 34-year-old female presenting with possible allergic reaction. Treated with Benadryl and dexamethasone and Pepcid. She is monitored for 4 hours. She says that she is having tingling in her tongue and throat again. No objective signs of allergic reaction at this time. She is given another round steroids and Benadryl at her request. Attempted to transfer back to [facility] as she was just discharged from a couple days ago but they have declined the transfer. Patient was re-evaluated and says she is feeling better at this point she is comfortable going home. She is provided a course of steroids and return precautions. Patient is persistently tachycardic. She has POTS syndrome. Review over EMR shows that she is always at around 120-130 beats per minute. No intervention at this time. -DDX includes but is not limited to: Allergic reaction, mass healthy granulation disease, anxiety Vital Signs Vital Signs: Vital Signs Temperature 97.6 F 09/26/24 10:25 Pulse Rate 144 H 09/26/24 10:25 Respiratory Rate 19 09/26/24 10:25 Blood Pressure 167/91 H 09/26/24 10:25 Pulse Oximetry 100 09/26/24 10:25 Oxygen Delivery Room Air 09/26/24 10:25 Temperature 97.6 F 09/26/24 10:25 Pulse Rate 126 H 09/26/24 14:16 Respiratory Rate 28 H 09/26/24 14:16 Blood Pressure 150/99 H 09/26/24 14:16 Pulse Oximetry 98 09/26/24 14:16 Oxygen Delivery Room Air 09/26/24 11:20 Discharge Plan Discharge Clinical Impression: Mast cell activation syndrome Patient Disposition: Home, Self-Care Condition: Stable Instructions: Antibiotic Form, Allergies (ED) Additional Instructions: Please follow-up with her exceptional student education aide for further management. Return to the ED if you develop any new or worsening symptoms. You can complete the steroids as instructed see if that improves her symptoms. Patient Language: Estonian Prescriptions: New prednisone 50 mg tablet 50 mg PO DAILY Qty: 5 0RF No Action drospirenone-ethinyl estradiol [Dana (28)] 3-0.03 mg tablet 1 tablet PO DAILY albuterol sulfate 90 mcg/actuation HFA aerosol inhaler 1 inh inhalation Q4H PRN (Reason: shortness of breath or wheezing) Qty: 8.5 0RF budesonide 90 mcg/actuation aerosol powdr breath activated 1 inh inhalation Q12H Qty: 1 0RF epinephrine 0.3 mg/0.3 mL auto-injector 0.3 mg IM ONCE PRN (Reason: Allergic Reaction) Rx Instructions: as a single dose; may repeat once famotidine 40 mg tablet 40 mg PO DAILY cyclobenzaprine 10 mg tablet 10 mg PO TID PRN (Reason: muscle spasm) Qty: 30 0RF tramadol 50 mg tablet 50 mg PO Q6H PRN (Reason: pain) Qty: 21 0RF triamcinolone acetonide 0.1 % paste See Rx Instructions .ROUTE .COMPLEX Qty: 5 1RF Dose Instruction: APPLY TO DENTAL AREA AT BEDTIME, AFTER FOOD, DRINK OR ORAL HYGIENE Rx Instructions: APPLY TO DENTAL AREA AT BEDTIME, AFTER FOOD, DRINK OR ORAL HYGIENE metoclopramide HCl 10 mg tablet See Rx Instructions .ROUTE .COMPLEX Qty: 60 3RF Dose Instruction: TAKE 1 TABLET BY MOUTH TWICE DAILY NEEDED FOR NAUSEA OR VOMITING Rx Instructions: TAKE 1 TABLET BY MOUTH TWICE DAILY NEEDED FOR NAUSEA OR VOMITING diazepam 5 mg tablet 5 mg PO BID PRN (Reason: anxiety) Qty: 60 0RF trazodone 50 mg tablet 50 mg PO QHS PRN (Reason: Sleep) Qty: 90 1RF prochlorperazine maleate 10 mg tablet See Rx Instructions .ROUTE .COMPLEX Qty: 90 0RF Dose Instruction: TAKE 1 TABLET BY MOUTH EVERY 6 HOURS NEEDED FOR NAUSEA OR VOMITING Rx Instructions: TAKE 1 TABLET BY MOUTH EVERY 6 HOURS NEEDED FOR NAUSEA OR VOMITING Follow-up/Referrals: Shannan Maldonado MD [Primary Care Provider] -
[2024-09-26] MEDS: SODIUM CHLORIDE 0.9% IV 2,000 ML 999 ML IV CONT (14:58)
== END 2024-09-26 17:03 | disposition home or self-care (01) ==
PROVIDERS: Emergency Provider Emergency Medicine; PCP Family Medicine
DX: D89.40 Mast cell activation, unspecified (principal); J45.909 Unspecified asthma, uncomplicated; K58.1 Irritable bowel syndrome with constipation; Q79.60 Ehlers-Danlos syndrome, unspecified
CPT/HCPCS: 96361; 96374; 96375; 99284; J1100; J1200; J7030

== ENCOUNTER 2024-09-29 14:09 | Emergency (ER) | payer OTHER, SELFPAY ==
--- OUTSIDE RECORDS SUMMARY | 2024-09-29 14:12 | XMS_ITS | Encounter Summary ---
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 Gender Identity Female 07/01/2022 7:31 PM PAPER GOODS MACHINE OPERATOR Sexual Orientation Not on file documented as of this encounter Plan of Treatment Not on file documented as of this encounter Procedures Procedure Name Priority Date/Time Associated Diagnosis Comments SCAN - LABS 10/28/2021 documented in this encounter Results * SCAN - LABS (10/28/2021) us Provider Scanning Final Result documented in this encounter Visit Diagnoses Not on filedocumented in this encounter Care Teams Imaging Clerk Relationship Specialty Start Date End Date Shannan Maldonado MD PCP - General 09/07/19 documented as of this encounter
--- OUTSIDE RECORDS SUMMARY | 2024-09-29 14:12 | XMS_ITS ---
Author Organization [facility] Address [address] [place] [id number] Care Team Providers Care Exchange Consultant Name Role Phone Shannan Maldonado Primary Care Provider Romy Clark Unavailable [phone] Allergies Allergen (clinical drug ingredient) Drug/Non Drug Allergy documented on EMR Reaction Allergy Type Onset Date Status BIAXIN (uncoded) vomiting Allergy Act hayder ZOFRAN (uncoded) Itching Allergy Act hayder Azithromycin vomiting Drug Allergy Acti ve duloxetine Cymbalta other reaction Drug Allergy A ctive meperidine Demerol vomiting Drug Allergy Active hydrocodone HYDROcodone QT Prolongation Drug Allergy Active hydromorphone HYDROmorphone Itching Drug Allergy Active REASON FOR VISIT Chronic urticaria and angioedema follow-up - recent flare and hospitalization Medications Medication SIG (Take, Route, Frequency, Duration) Notes Start Date End Date Status Flonase Allergy Relief 50 MCG/ACT 1 spray(s) intranasally once a day for 30 day(s) Not-Taking diazePAM 5 MG 1 tab(s) orally every 8 hours Active traZODone HCl 50 MG as directed orally once a day Active Auvi-Q 0.3 MG/0.3ML as directed intramuscularly once for 1 day Active Cyclobenzaprine HCl 10 MG 1 tab(s) orally 3 times a day Active ZYRTEC 10 mg 1 tab(s) orally once a day for 30 days Active FAMOTIDINE 40 mg 1 tab(s) orally 2 times a day for 90 days Active predniSONE 20 MG 3 tablets once a day for 2 days, 2 tablets once a day for 2 days, 1 tablet once a day for 2 days Orally Once a day for 6 days 09/11/2024 Active AUVI-Q 0.3 mg as directed intramuscularly once for 1 day Active predniSONE 10 MG 2 tablets x3 [...] MG 1 tab(s) orally Qday, PRN Active Social History Tobacco Use: Social History Observation Description Date Details (start date - stop date) Never Smoker NA - NA Smoking Smart Form: Question Answer Notes Are you a: never smoker Tobacco Control (Standard) Question Answer Notes Tobacco use: Nonsmoker Vital Signs Blood pressure systolic 144 mm Hg 09/12/19 25 Blood pressure diastolic 88 mm Hg 025 Height 67 in 09/11/2024 Weight 201.8 lbs 09/11/2024 BMI 31.6 kg/m2 09/11/2024 Oximetry 100 % 09/11/2024 Encounters Encounter Location Date Provider Diagnosis [facility] [address] [id number] 09/11/2024 Romy Montiel Idiopathic urticaria L50.1 ; Angioneurotic edema, [...] Z88.5 and Mild intermittent asthma, uncomplicated J45.20 Assessments Encounter Date Diagnosis (ICD Code) Assessment Notes Treatment Notes Treatment Clinical Notes Section Notes 09/11/2024 Idiopathic urticaria (ICD-10 - L50.1) She [...] is also following with Dr. Suarez. Typtase in the ER was 2.4 mg which is normal. Normal tryptase, urine histamine, sed rate, and CMP. She received Xolair today in the office. Continue Xolair q2 weeks. We also discussed restarting mirtazapine and buspirone and she would need to speak with PCP. Plan to speak with Dr. Suarez about changing therapy since unclear if benefit from Xolair. 09/11/2024 Chronic sinusitis, unspecified (ICD-10 - J32.9) History of chronic sinusitis requiring antibiotics 5 times a year. Immunodeficiency evaluation normal and normal response to vaccines 09/11/2024 Allergic rhinitis due to pollen (ICD-10 - J30.1) Rosangela clearly suffers from atopic disease based upon history and our skin testing. Consider immunotherapy in the future if needed. 09/11/2024 Allergic rhinitis due to animal (cat) (dog) hair and dander (ICD-10 - J30.81) 09/11/2024 Other allergic rhinitis (ICD-10 - J30.89) 09/11/2024 Other chronic allergic conjunctivitis (ICD-10 - H10.45) Given ocular signs and symptoms I encouraged allergy avoidance measures and meds as above. If symptoms persist, consider adding additional medications including intraocular antihistamine/mast cell stabilizer, PRN 09/11/2024 Allergy to other foods (ICD-10 - Z91.018) skin testing to all food was negative at prior visit. Episodes do not appear to be food related 09/11/2024 Allergy status to narcotic agent status (ICD-10 - Z88.5) Appears to have allergic reaction with morphine, but only involved the IV site. May be a local reaction. No other symptoms. Avoid for now since tolerates Fentanyl. 09/11/2024 Mild intermittent asthma, uncomplicated (ICD-10 - J45.20) Spirometry at last check is normal. Continue prn albuterol 09/11/2024 Other Plan Of Treatment Medication Medication Name Sig Start Date Stop Date Notes ZYRTEC 10 mg 1 tab(s) orally once a day for 30 days FAMOTIDINE 40 mg 1 tab(s) orally 2 times a day for 90 days predniSONE 20 MG 3 tablets once a day for 2 days, 2 tablets once a day for 2 days, 1 tablet once a day for 2 days Orally Once a day for 6 days 09/11/2024 AUVI-Q 0.3 mg as directed intramus cularly once for 1 day Treatment Notes Assessment Notes Idiopathic urticaria She was sent home w ith steroids after hospitalization and requesting a further taper Angioneurotic edema, subsequent encounte r Recurrent episodes of anaphylaxis with multiple hospitalization [...] therapy since unclear if benefit from Xolair. Chronic sinusitis, unspecified History o f chronic sinusitis requiring antibiotics 5 times a year. Immunodeficiency evaluation normal and normal response to vaccines Allergic rhinitis due to pollen Rosangela clearly suffers from atopic disease based upon history and our skin testing. Consider immunotherapy in the future if needed. Other chronic allergic conjunctivitis Gi vicki ocular signs and symptoms I encouraged allergy avoidance measures and meds as above. If symptoms persist, consider adding additional medications including intraocular antihistamine/mast cell stabilizer, PRN Allergy to other foods skin testing to a ll food was negative at prior visit. Episodes do not appear to be food related Allergy status to narcotic agent status Appears to have allergic reaction with morphine, but only involved the IV site. May be a local reaction. No other symptoms. Avoid for now since tolerates Fentanyl. Mild intermittent asthma, uncomplicated Spirometry at last check is normal. Continue prn albuterol Next Appt Details Follow Up: 2 Weeks, Reason: XOLAIR Administration Provider Name:Romy archer, 10/02/2024 02:45:00 PM, [address] [facility], [address], [place], [id number], Procedure Notes * Category Sub-Category Detail Notes XOLAIR (omalizumab) Administration Dosing Time / Vitals Kanchan Willard 09/11/2024 11:15:51 AM CDT >, Time of administration, See initial vitals Dosage 300 mg (60 units) Location LLA Reaction None Frequency q 2 weeks AIE (epinephrine) on patient? yes Lot Number / Expiration Lot Number(s):[id number], Expiration Date:03/2025 Post-procedural check-out: Vital signs t aken 30 minutes after dosing administration: Safety: Staff verified patie nt is carrying AIE (epinephrine) at all times given risk of anaphylaxis?: Yes Medication Source XOLAIR Source: [facility] (Insurance-provided) Reason for SP:: Patient is approved for SP and has vials on-hand to administer Source Verification:: Yes Hanh/ Kanchan/ Medical necessity for in-off ice administration: The patient or caregiver is not suitable , not competent or is physically unable to administer the XOLAIR product FDA-labeled for self-administration for the following reason(s):: needle phobia Progress Notes * PA Rosangela CardozaDOB:[birth year] (34 yo F)Acc No.[id number]:09/11/2024 XOLAIR F/U Patient: Rosangela PEGUERO Provider: Nani Montiel MD :1990 A ge:34 Y S ex:Female Date:09/11/2024 [id number] Pcp:Shannan Maldonado Subjective: * Chief Complaints: * C hronic urticaria and angioedema follow-up - recent flare and hospitalization * HPI: * Introduction: I had the pleasure of seeing Ethel Koenig, a 34 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 She was last evaluated 08-27-2024. She was admitted 3-2-2025 and hospitalized for 4 days due to hives and angioedema. She ate Taco Singh and immediately after eating developed lip and tongue swelling. She was also developing hives on her chest and face. She used her EpiPen at home and taken to the [facility] ER. She was given further epinephrine in the ER. She continued to develop hives and tongue swelling for 4 days. While hospitalized, c oncern related to her amoxicillin. Prior to angioedema, she had 3 days of amoxicillin for bronchitis. She is currently taking Benadryl q4 hours, famotidine 40 mg BID, Zyrtec 20 mg BID and prednisone. She is currently on a steriod taper and 1 tablet left. She is scheduled for f/u with Dr. Suarez later this month. She is currently off oral contraceptives. She was also hospitalized earlier in August for hives and angioedema which were thought related to changing oral contraceptives. She started Dana earlier in August a nd developed vomiting and diarrhea. She switched to Chica 08-12-24. She is now off control and planning to f/u with [facility]. She has been off buspirone and mirtazapine for about 1 year. She feels diazepam is working well. She is tolerating Xolair q2 weeks. Spring 2022, she required over 6 ER visits and hospitalizations for throat tightness, chest tightness, and tongue swelling. With both hospitalizations she was treated with epinephrine. She reports a history of asthma and has been treated with Advair and albuterol in the past. No recent flares. No ER visits or hospitalization for asthma. She reports frequent sinusitis and epistaxis as a young child. Last year, she had a normal gastric emptying study for recurrent vomiting and normal. She is taking reglan and prochlorperazine with improvement. She has been following with Dr. España and transferring to Dr. De Leon. EGD was normal last year. 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 She has had many side effects from narcotics. She took Dialudid for jaw dislocation and developed throat tightness and itching. She does not tolerate Demeral or Cymbalta. Zofran caused prolonged QT syndrome. [facility] [employer] Dr. [facility] Dr. Jose Luis Jcaques at [facility] Dr. Ngozi Maldonado. * ROS: A LLERGY: Positive p er the HPI and history, otherwise unremarkable.? S PECIAL SENSES: Positve for n one. C ONSTITUTIONAL: Positive for n one. E NT: Positive p er the HPI and history, otherwise unremarkable.? R ESPIRATORY: Positive p er the HPI and history, otherwise unremakable.? O PHTHALMOLOGY: Positive for p er the HPI and history, otherwise unremarkable. E NDOCRINOLOGY: Positive for n one. C ARDIOLOGY: Positive for n one. G ASTROENTEROLOGY: Positive for n one. U ROLOGY: Positive for n one. D ERMATOLOGY: Positive for p er the HPI and history, otherwise unremakable. N EUROLOGY: Positive for n one. H EMATOLOGY/LYMPH: Positive for n one. M USCULOSKELETAL: Positive for n one. P SYCHOLOGY: Positive for n one. A ll other review of systems per the HPI and history, otherwise unremarkable. * Medical History: * Surgical History: M uscle Biopsy 10/17/2006Wisdom Teeth Removal 2008D&C 2009Medial Patella Femoral Ligament Reconstruction 11/06/2009Tonsillectomy 10/2010Tarsal Tunnal Release 2016foot surgery for toe dislocation (right foot) crew right great toe replaced and pin put in second right toe 04/2023 * Hospitalization/Major Diagno stic Procedure: U rticaria and Angioedema October 2021Epistaxis 06/28/22anaphylaxis 09/08/2022naphylaxis 10/12/22 * Family History: F ather: , diagnosed with Cancer. M other: alive. No history of atopic disease. * Social History: M arital Status What is your marital status? m arried S moking Are you a : n ever smoker S moking Smart Form Are you a: n ever smoker D etails on consumption of certain products? Do you regularly consume products with aspartame; Equal or NutraSweet? Y es Do you regularly consume products with artificial coloring??Yes Have you ever noticed worsening of your rash with these food items? N o E xercise What kind(s) of exercise do you perform regularly? w alking,pilates,other How often do you perform this exercise? m onthly A re any of the following personal care products containing fragrance, dye or preservatives used regularly? Soap: Y es Laundry Detergent: Y es Fabric Softener: Y es Deodorant: Y es Perfume, cologne, after shave: Y es Other: Y es O ccupation Are you currenly employed? N o Have you had any job with high exposure to fumes, chemicals, dust or other noxious substances? N o Are you currently a student? N o E nvironmental History Living environment: a partment,with pets Where is the home located? [place] How long have you lived there? 5 years or more How many people live in the home? 2 H ome description Basement: N o Any water damage in basement? N o Smokers in the home? N o Smokers outside the home? Y es Air Conditioning? Y es Central Air? Y es Forced air heating? Y es Gas or electric? e [facility] Fireplace? N o Wood burning stove? N o Do you vacuum the home? Y es Air purification systems? N o Pillow and mattress dust-proof encasings? Y es Do you use a humidifier? Y es Whole house or room? r oom humidifier Does it have a humidistat? Y es Is it used year-round, seasonal, or as needed? s easonal Is the humidifier cleaned regularly? Y es Do you own any pets? Y es What kind(s)? (click all that apply) c ats Where do your pets sleep? a nywhere in the house Fabric softeners used? Y es Plants in the home? N o Is there carpeting in your bedroom? Y es Do you have flyg-kh-mboj carpeting? Y es What material(s) are used to manufacture your bedding and pillow? o ther What is the age of your pillow (years)? 3 What material are your bedding items made of? n atural fiber (e.g. cotton) Do you sleep with quilts or blankets or a duvet? Y es What material? n atural fiber (e.g. cotton) How many cats? 1 T obacco Control (Standard) Tobacco use: N onsmoker * Medications: T akingAuvi-Q 0.3 MG/0.3ML Solution Auto-injector as directed intramuscularly once traZODone HCl 50 MG Tablet as directed orally once a day diazePAM 5 MG Tablet 1 tab(s) orally every 8 hours Cyclobenzaprine HCl 10 MG Tablet 1 tab(s) orally 3 times a day Reglan 10 MG Tablet 1 tab(s) orally Qday, PRN Prochlorperazine Maleate 10 MG Tablet 1 tab(s) orally every 6 hours Famotidine 40 MG Tablet 1 tab(s) orally 2 times a day predniSONE 20 mg tablet 1 tab(s) orally once a day , Notes to Pharmacist: for bronchitispredniSONE 10 MG Tablet 2 tablets x3 days, 1 tablet x3 days Orally Once a day Taking Auvi-Q 0.3 MG/0.3ML Solution Auto-injector as directed intramuscularly once Taking traZODone HCl 50 MG Tablet as directed orally once a day Taking diazePAM 5 MG Tablet 1 tab(s) orally every 8 hours Taking Cyclobenzaprine HCl 10 MG Tablet 1 tab(s) orally 3 times a day Taking Reglan 10 MG Tablet 1 tab(s) orally Qday, PRN Taking Prochlorperazine Maleate 10 MG Tablet 1 tab(s) orally every 6 hours Taking Famotidine 40 MG Tablet 1 tab(s) orally 2 times a day Taking predniSONE 20 mg tablet 1 tab(s) orally once a day , Notes to Pharmacist: for bronchitisTaking predniSONE 10 MG Tablet 2 tablets x3 days, 1 tablet x3 days Orally Once a day Not- Taking/PRNFlonase Allergy Relief 50 MCG/ACT Suspension 1 spray(s) intranasally once a day FAMOTIDINE 40 mg tablet 1 tab(s) orally 2 times a day ZYRTEC 10 mg tablet 1 tab(s) orally once a day AUVI-Q 0.3 mg kit as directed intramuscularly once Medication List reviewed and reconciled with the patientNot-Taking/PRN Flonase Allergy Relief 50 MCG/ACT Suspension 1 spray(s) intranasally once a day Not-Taking/PRN FAMOTIDINE 40 mg tablet 1 tab(s) orally 2 times a day Not-Taking/PRN ZYRTEC 10 mg tablet 1 tab(s) orally once a day Not-Taking/PRN AUVI-Q 0.3 mg kit as directed intramuscularly once Medication List reviewed and reconciled with the patient * Allergies: C ymbalta: other reactionDemerol: vomitingBIAXIN: vomitingAzithromycin: vomitingHYDROmorphone: ItchingZOFRAN: ItchingHYDROcodone: QT Prolongationno[Allergies Verified] Objective: * Vitals: B P:144/88mm Hg, HR:127/min, Pulse Oximetry:100%, CU-Q2oL: 40, UAS7: 0, Ht: 67 in, Wt: 201.8 lbs, BMI:31.6Index. * Examination: G eneral examination: General appearance: p leasant, well-developed, well-nourished. HEENT: c onjunctiva are clear bilaterally, no tenderness to palpation of the sinuses, TM's without evidence of acute infection, turbinates with pink mucosa, clear rhinorrhea is present, no polyps noted, no septal perforation, posterior oropharynx is clear, no exudates, no tongue swelling, and uvula is midline. Oral cavity: n ormal, no lesions. Neck, thyroid : s upple, non-tender, no anterior cervical lymphadenopathy. Breasts : n ot performed. Heart: R RR, S1-S2, no murmurs, no rubs, no gallops. Lungs: c lear to auscultation and percussion in all lung white, no wheezes or crackles. Neurologic exam: u nremarkable. Skin: normal, no rash. Peripheral pulses: n ormal (2+) bilaterally. Back: n ormal. Genitalia: n ot performed. Influenza Vaccine not administered R danielito: P atient Reason T ype of Patient Reason: R efused Assessment: * Assessment: 1. A ngioneurotic edema, subsequent encounter - T78.3XXD (Primary) 2 . I diopathic urticaria - L50.1 3 . C hronic sinusitis, unspecified - J32.9 4 . A llergic rhinitis due to pollen - J30.1 5 . A llergic rhinitis due to animal (cat) (dog) hair and dander - J30.81 6 . O ther allergic rhinitis - J30.89 7 . O ther chronic allergic conjunctivitis - H10.45 8 .?Allergy to other foods - Z91.018 9 . A llergy status to narcotic agent status - Z88.5 1 0. M ild intermittent asthma, uncomplicated - J45.20 ? Plan: * Treatment: 2. I diopathic urticaria Continue FAMOTIDINE tablet, 40 mg, 1 tab(s), orally, 2 times a day, 90 days, 180 Tablet, Refills 1;?Continue ZYRTEC tablet, 10 mg, 1 tab(s), orally, once a day, 30 days, 30 Tablet, Refills 1; Continue AUVI-Q kit, 0.3 mg, as directed, intramuscularly, once, 1 day, 2, Refills 0; S tart predniSONE Tablet, 20 MG, 3 tablets once a day for 2 days, 2 tablets once a day for 2 days, 1 tablet once a day for 2 days, Orally, Once a day, 6 days, 12, Refills 0. Notes: She was sent home with steroids after hospitalization and requesting a further taper ? 3. C hronic sinusitis, unspecified Notes: History of chronic sinusitis requiring antibiotics 5 times a year. Immunodeficiency evaluation normal and normal response to vaccines 4. A llergic rhinitis due to pollen Notes: Rosangela clearly suffers from atopic disease based upon history and our skin testing. Consider immunotherapy in the future if needed. 5. O ther chronic allergic conjunctivitis Notes: Given ocular signs and symptoms I encouraged allergy avoidance measures and meds as above. If symptoms persist, consider adding additional medications including intraocular antihistamine/mast cell stabilizer, PRN 6. A llergy to other foods Notes: skin testing to all food was negative at prior visit. Episodes do not appear to be food related 7. A llergy status to narcotic agent status Notes: Appears to have allergic reaction with morphine, but only involved the IV site. May be a local reaction. No other symptoms. Avoid for now since tolerates Fentanyl. 8. M ild intermittent asthma, uncomplicated Notes: Spirometry at last check is normal. Continue prn albuterol * Procedures: X OLAIR (omalizumab) Administration: Dosing Time / Vitals Janis mckenzieKanchan 09/11/2024 11:15:51 AM CDT >, Time of administration, See initial vitals. Dosage 3 00 mg (60 units). Location L LA. Reaction N one. Frequency q 2 weeks. AIE (epinephrine) on patient? y es. Lot Number / Expiration L ot Number(s):[id number], Expiration Date:03/2025. Post-procedural check-out: V ital signs taken 30 minutes after dosing administration:. Safety: S taff verified patient is carrying AIE (epinephrine) at all times given risk of anaphylaxis? Y es Medication Source [facility] R danielito for SP: P atient is approved for SP and has vials on-hand to administer S ource Verification: Y chantel Hanh/ Kanchan/ Medical necessity for in-field health officer: T he patient or caregiver is not suitable, not competent or is physically unable to administer the XOLAIR product FDA-labeled for self-administration for the following reason(s): n eedle phobia P ost vitals 139/96, O2 98%, RR 14, HR 127. * Procedure Codes: G 8427 DOC MEDS VERIFIED W/PT OR [id number] PT-FOCUSED HLTH RISK [id number] CHEMO, ANTI-NEOPL, SQ/IM * Preventive Medicine: Counseling: D iet a s tolerated. E xercise C ontinue activity as usual. M edication instruction: N cristian steroid instruction: avoid septum, Watch for side effects of prescribed medications. E ducation: O ur staff spent an additional 30 minutes in direct contact with the patient educating them on their current diagnoses and proper treatment and prevention of symptoms and the proper use of medications. E ducation 2: O ur staff discussed the appropriate allergen avoidance measures and medication utilization including upper airway hygiene with daily nasal washes given the patient's clinical status and diagnoses. P atient education material sent to portal? Y es C are goal follow up plan BMI management provided Y es Above Normal BMI Follow-up D ietary management education, guidance, and counseling B P Management: PRE-HYPERTENSIVE FOLLOW-UP PLAN: P atient follow-up planned and scheduled LIFESTYLE RECOMMENDATION: H ypertension education FIRST HYPERTENSIVE BP READING FOLLOW-UP PLAN: F ollow-up 1 month REFERRAL TO ALTERNATIVE / PRIMARY CARE PROVIDER: R eferral to general practitioner * Follow Up: 2 Weeks (Reason: XOLAIR Administration) * Billing Information: * Visit Code: 99883 Office Visit, Est Pt., Level 4. Modifiers: 25 * Procedure Codes: G8427 DOC MEDS VERIFIED W/[place]. [address] PT-FOCUSED HLTH RISK ASSMT. 34722 CHEMO, ANTI-NEOPL, SQ/IM. 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 She was last evaluated 08-27-2024. She was admitted 09-01-2024 and hospitalized for 4 days due to hives and angioedema. She ate Taco Singh and immediately after eating developed lip and tongue swelling. She was also developing hives on her chest and face. She used her EpiPen at home and taken to the [facility] ER. She was given further epinephrine in the ER. She continued to develop hives and tongue swelling for 4 days. While hospitalized, concern related to her amoxicillin. Prior to angioedema, she had 3 days of amoxicillin for bronchitis. She is currently taking Benadryl q4 hours, famotidine 40 mg BID, Zyrtec 20 mg BID and prednisone. She is currently on a steriod taper and 1 tablet left. She is scheduled for f/u with Dr. Suarez later this month. She is currently off oral contraceptives. She was also hospitalized earlier in August for hives and angioedema which were thought related to changing oral contraceptives. She started Dana earlier in August and developed vomiting and diarrhea. She switched to Chica 08-12-24. She is now off control and planning to f/u with OBGYN. She has been off buspirone and mirtazapine for about 1 year. She feels diazepam is working well. She is tolerating Xolair q2 weeks. Spring 2022, she required over 6 ER visits and hospitalizations for throat tightness, chest tightness, and tongue swelling. With both hospitalizations she was treated with epinephrine. She reports a history of asthma and has been treated with Advair and albuterol in the past. No recent flares. No ER visits or hospitalization for asthma. She reports frequent sinusitis and epistaxis as a young child. Last year, she had a normal gastric emptying study for recurrent vomiting and normal. She is taking reglan and prochlorperazine with improvement. She has been following with Dr. España and transferring to Dr. De Leon. EGD was normal last year. 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 She has had many side effects from narcotics. She took Dialudid for jaw dislocation and developed throat tightness and itching. She does not tolerate Demeral or Cymbalta. Zofran caused prolonged QT syndrome. [employer] Dr. [facility] Dr. Jose Luis Jacques at [facility] Dr. Ngozi Maldonado *Allergic Rhinoconjunctivitis *Asthma *Infections *Atopic dermatitis *Urticaria *Medication allergy *Stinging Insects *Prior Evaluations and Treatments *Food allergy *Eosinophilic GI *Angioedema Examination Category Sub-Category Detail Notes Category Not es General examination HEENT: conjunctiva are clear bilaterally, no tenderness to palpation of the sinuses, TM's without evidence of acute infection, turbinates with pink mucosa, clear rhinorrhea is present, no polyps noted, no septal perforation, posterior oropharynx is clear, no exudates, no tongue swelling, and uvula is midline Neck, thyroid : supple, non-tender, no anterior cervical lymphadenopathy Heart: RRR, S1-S2, no murmu rs, no rubs, no gallops Lungs: clear to auscultatio n and percussion in all lung white, no wheezes or crackles General appearance: pleasant, well-devel oped, well-nourished Skin: normal, no rash Neurologic exam: unremarkable Oral cavity: normal, no lesions Breasts : not performed Peripheral pulses: normal (2+) bilatera lly Back: normal Genitalia: not performed Influenza Vaccine not administered Reason:: Augusta ent Reason Type of Patient Reason:: Refused
--- OUTSIDE RECORDS SUMMARY | 2024-09-29 14:12 | XMS_ITS | Data Portability ---
Author Organization [place] [facility] [place] [facility] [place] WILLARD [email or web address]_[email or web address] Address [address] [place] [address] Care Team Providers Care Mail Technician Name Role Phone JOSH GONZALES Primary Care Provider Assessment Encounter Date Assessment Date Assessment LastModified by Organization Details LastModified Time 02/03/2020 02/03/2020 Time spent with patient:_30_mi juwan. For Telephone Audio Only Visits: Have you been seen in the last 7 days for the same or similar condition by an [facility] provider? No I did not request that the patient schedule an appointment at the next available time as a result of this encounter. btinkle Not available 02/03/2020 09:57:53 08/25/2023 08/25/2023 Time spent with patient:__25__ ____minutes. 11:32 11:57 btinkle Not available 08/25/2023 11:57:21 02/09/2024 02/09/2024 Time spent with patient:___8__ ___minutes. 8:20 8:28 btinkle Not available 02/09/2024 08:28:25 09/11/2024 09/11/2024 Time spent with patient: 7 ___minutes. btinkle Not available 09/11/2024 14:24:15 Plan of Treatment Reminders Order Date Submit Date Provider Last Modified By Organization Details Last Modified Time Details Appointments None recorded. Lab None recorded. Referral gastroente rologist referral 2022 023 MY perez MD, [address], [place], [address], 3 12:45:36 Procedures None recorded. Surgeries None recorded. Imaging None recorded. Medication Orders cyclobenza emily 10 mg tablet 2024 025 [place] [facility] #15497, [address], [place], [place], [id number], 5 14:27:32 cyclobenza emily 10 mg tablet 2023 024 [place] [facility] #01119, [address], [place], [place], [id number], 4 08:35:50 cyclobenza emily 10 mg tablet 2023 024 [place] [facility] #65794, [address], [place], [place], [id number], 4 12:12:49 cyclobenza emily 10 mg tablet 2022 023 btinkle [facility] #35529, [address], [place], [place], [id number], 3 07:57:02 cyclobenza emily 10 mg tablet 2019 020 [email or web address] [facility], [address], [place], [place], [id number], 3 09:31:39 Patient TargetsNo targets recorded. Patient Instructions Encounter Date Encounter Id Patient Instructions Last Modified By Organization Details Last Modified Time 02/03/2020 [id number] hand-washing: ca re instructions btinkle Not available 02/03/2020 08:31:00 What You Need To Know about COVID-19 Coronavirus Disease (CDC) btinkle Not available 02/03/2020 08:31:00 Steps To Help Prevent The Spread of COVID-19, if you are sick (CDC) btinkle Not available 02/03/2020 08:30:59 1) Discussed nec k and muscle spasms are common in EDS. Recommend looking into dry needling. Will renew cyclobenzaprine. 2) Can discuss with communications department chairperson installing posts and rubber bands to help stablize the jaw in the interim. 3) If further issues with the navicual/talar joint, may want mica washer gluer to speak with or you to see Dr. Sarath Medrano, a mica washer gluer with vast experience in [place] currently in [place]. May also want to consider stem cell injection in the joint as well. 4) Return to clinic in 6 months or earlier as needed I spent 30 minutes with the patient with greater than 20 minutes on counseling and coordination of care. btinkle Not available 02/03/2020 11:39:03 02/17/2023 [id number] 1) Encouraged to maintain fluids at 100 ounces daily 2) If prefer the salt capsules for salt supplementation, 6 taken 2 at a time is a good place to start which is likely to given you about 1.5g of sodium. Each 2 capsules should be taken with 6 ounces of fluid, three times daily. If symptoms of lightheadedness upon standing worsen or do not improve significantly, increase salt. 3) Gave dietary handouts on gastroparesis and lowFODMAP. 4) Referral to [facility] 5) Will renew cyclobenzaprine 10mg to be taken nightly for chronic muscle tension pain 6) Return to clinic in 6 months; virtual ok 50 minutes of the total time on the day of the encounter were spent in preparation for the clinic visit, reviewing of records, tests, counseling and education of the patient, ordering medications, tests and procedures as appropriate, and documenting clinical information in the electronic health record. btinkle Not available 02/20/2023 08:08:29 08/25/2023 [id number] 1) Continue with home exercise program 2) As tramadol was helpful in the past for pain, could consider replacing diazepam with hydroxyzine, beta-alanna, or buspirone for acute anxiety. May also consider treatment for chronic anxiety. 3) Alternatively, medical cannabis has been helpful to many for pain, anxiety, and sleep 4) Will renew cyclobenzaprine for chronic muscle tension. Patient instructed to avoid concurrent use of cyclobenzaprine with the diazepam for compounded sedative as well muscle relaxant effect 5) Return to clinic in 6 months or earlier as needed; virtual ok 30 minutes of the total time on the day of the encounter were spent in preparation for the clinic visit, reviewing of records, tests, counseling and education of the patient, ordering medications, tests and procedures as appropriate, and documenting clinical information in the electronic health record. btinkle Not available 08/25/2023 12:12:42 02/09/2024 [id number] 1) Continue home exercises 2) Will renew cyclobenzaprine for chronic muscle tension pain 3) Discussed normal range of mouth opening and trying to stay with this range during procedures 4) Stay well-hydrated taking 80-120 ounces of fluid daily 5) Continue salt but increasing with more dizziness or heat exposure 6) Return to clinic in 6 months or earlier as needed 15 minutes of the total time on the day of the encounter were spent in preparation for the clinic visit, reviewing of records, tests, counseling and education of the patient, ordering medications, tests and procedures as appropriate, and documenting clinical information in the electronic health record. btinkle Not available 02/09/2024 08:34:37 09/11/2024 [id number] 1) Continue home exercises 2) Activities as tolerated 3) Will renew cyclobenzaprine for muscle tension pain 4) Maintain hydration of 80-120 ounces of fluid daily 5) Continue sodium salt supplementation, increasing for worsening lightheadedness upon standing or dizziness 6) Return to clinic in 6 months or earlier as needed; in person visit only this next visit 13 minutes of the total time on the day of the encounter were spent in preparation for the clinic visit, reviewing of records, tests, counseling and education of the patient, ordering medications, tests and procedures as appropriate, and documenting clinical information in the electronic health record. 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 Denis Bush MD [address] [place] [address], [address], [place], [address] , [place] [facility] 5 14:31:39 Multiple joint pain 73603572 Active 2018 Not Available [facility] 3 03:21:18 Muscle pain 51771297 Active 2018 Not Available [facility] 3 03:21:18 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 Procedures Surgical History Date Name Laterality Status Provider Name and Address Organization Details Recorded Time 07/03/19 24 Foot Surgery completed Thelma Shabazz [place] [facility] 09/11/2024 14:05:06 07/03/19 22 Orthopedic surgery ss completed Calista Ovalle [place] [facility] 02/17/2023 09:39:02 04/08/20 19 Fall Risk Assessment ADULT completed John Greer LPN [place] [facility] 04/08/2019 09:34:06 11/13/19 16 tarsal tunnel release completed Denis Bush MD [address] [place] [address], [address] [facility], [place], [address], [place] [facility] 04/09/2019 16:03:02 11/01/19 11 tonsillectomy completed Denis Bush MD [address] [place] [address], [address], [place], [address], [place] [facility] 04/09/2019 16:03:25 11/07/19 10 Knee Surgery completed Denis Bush MD [address], [address], [place], [address], [place] [facility] 04/09/2019 16:02:02 Imaging Results None recorded. Procedure Notes None recorded. Medical Equipment None Reported. Allergies Allergen ID Allergen Name Allergen Category Reaction Reaction Severity Criticality Documentation Date Start Date Code Code System Note Provider Name and Address Organization Details Recorded Time 3131142 Cymbalta medicatio n Not available Not available Not available 04/08/2019 06341 4 RxNorm John Greer NURSE PRACTITIONER PHYSICIAN ASSISTANT null, [place] [facility] 9 09:26:54 [id number] Biaxin medicatio n anaphylax is Not available Not available 04/08/2019 99266 9 RxNorm John Greer NURSE PRACTITIONER PHYSICIAN ASSISTANT null, [facility] 9 09:27:19 [id number] Demerol medicatio n vomiting Not available Not available 04/08/2019 18050 1 RxNorm John [place] NURSE PRACTITIONER PHYSICIAN ASSISTANT null, [facility] 9 09:27:38 [id number] azithromy benedict medicatio n other Not available Not available 04/08/2019 43295 RxNorm vomit ing, sever stoma ch cramp ting, diarr hea John Greer NURSE PRACTITIONER PHYSICIAN ASSISTANT null, [facility] 9 09:28:40 [id number] Dilaudid medicatio n hives lighthead edness Not available Not available Not available 04/08/2019 89734 3 RxNorm John [place] NURSE PRACTITIONER PHYSICIAN ASSISTANT null, [facility] 9 09:29:19 6627220 hydrocodo ne Not available anaphylax is severe Not available 02/03/2020 5489 RxNorm Tabby Yaron null, [place] [facility] 0 08:04:23 [id number] lorazepam medicatio n Not available Not available Not available 02/09/2024 6470 RxNorm Calista Vasquez null, [place] [facility] 4 08:11:35 Medications Name Sig Start Date Stop Date Status Note LastModified by Organization Details LastModified Time penicillin V potassium 250 mg tablet 02/02 completed Not Available Not Available Not Available cyclobenza emily 10 mg tablet TAKE 1 TABLET BY MOUTH TWICE DAILY active Not Available Not Available No t Available medroxypro gesterone 10 mg tablet 02/17 completed Not Available Not Available Not Available cromolyn 100 mg/5 mL oral concentrat e active Not taking 02/09/24 Not Available Not Available Not Available nystatin 100,000 unit/mL oral suspension 02/17 completed Not Available Not Available Not Available prednisone 10 mg tablet TAKE 2 TABLETS BY MOUTH ONCE A DAY FOR 3 DAYS THEN 1 TABLET ONCE A DAY FOR 3 DAYS active Not Available Not Available No t Available pilocarpin e 1 % eye drops 04/08 completed Not Available Not Available Not Available albuterol sulfate 2.5 mg/3 mL (0.083 %) solution for nebulizati on 02/17 completed Not Available Not Available Not Available trazodone 50 mg tablet TAKE 1 TABLET BY MOUTH EVERY DAY AT BEDTIME NEEDED FOR SLEEP active Not Available Not Available No t Available fluconazol e 150 mg tablet TAKE 1 TABLET BY MOUTH 1 TIME ONLY active Not Available Not Available No t Available sulfametho xazole 400 mg-trimeth oprim 80 mg tablet 02/17 completed Not Available Not Available Not Available hydrocodon e 5 mg-acetami nophen 325 mg tablet 04/08 completed Not Available Not Available Not Available Claritin 10 mg tablet Take 1 tablet every day by oral route. 02/17 completed Not Available Not Available Not Available famotidine 40 mg tablet TAKE 1 TABLET BY MOUTH TWICE DAILY active Not Available Not Available No t Available prednisone 20 mg tablet active Not Available Not Available Not Available prednisone 5 mg tablet 02/17 completed Not Available Not Available Not Available permethrin 5 % topical cream active Not using 02/09/24 Not Available Not Available Not Available metronidaz ole 500 mg tablet 04/08 completed Not Available Not Available Not Available prochlorpe razine maleate 10 mg tablet TAKE 1 TABLET BY MOUTH EVERY 6 HOURS NEEDED FOR NAUSEA OR VOMITING active Not Available Not Available No t Available ciprofloxa benedict 500 mg tablet 04/08 completed Not Available Not Available Not Available sulfametho xazole 800 mg-trimeth oprim 160 mg tablet 02/17 completed Not Available Not Available Not Available tramadol 50 mg tablet TAKE 1 TABLET BY MOUTH EVERY 6 HOURS NEEDED FOR PAIN active Not Available Not Available No t Available meloxicam 7.5 mg tablet 02/02 completed Not Available Not Available Not Available oxycodone- acetaminop hen 5 mg-325 mg tablet active Not taking 02/09/24 Not Available Not Available Not Available lorazepam 0.5 mg tablet active Not taking 02/09/24 Not Available Not Available Not Available triamcinol one acetonide 0.1 % dental paste active Not Available Not Available Not Available triamcinol one acetonide 0.025 % topical cream 04/08 completed Not Available Not Available Not Available oxycodone- acetaminop hen 10 mg-325 mg tablet TAKE 1 TABLET BY MOUTH EVERY 6 HOURS FOR 5 DAYS NEEDED active Not Available Not Available No t Available dicyclomin e 20 mg tablet 04/08 completed Not Available Not Available Not Available benzonatat e 100 mg capsule 02/17 completed Not Available Not Available Not Available buspirone 10 mg tablet 02/17 completed Not Available Not Available Not Available prednisone 50 mg tablet active Not Available Not Available Not Available promethazi ne 25 mg tablet 04/08 completed Not Available Not Available Not Available Advair Diskus 250 mcg-50 mcg/dose powder for inhalation 02/17 completed Not Available Not Available Not Available betamethas one, augmented 0.05 % topical ointment 02/17 completed Not Available Not Available Not Available montelukas t 10 mg tablet 02/17 completed Not Available Not Available Not Available diclofenac sodium 50 mg tablet,del ayed release 02/17 completed Not Available Not Available Not Available mirtazapin e 15 mg tablet 02/17 completed Not Available Not Available Not Available ergocalcif yahaira (vitamin D2) 1,250 mcg (50,000 unit) capsule 02/17 completed Not Available Not Available Not Available epinephrin e 0.3 mg/0.3 mL injection, auto-injec tor INJECT 0.3 ML IN THE MUSCLE NEEDED active Not Available Not Available No t Available cefuroxime axetil 500 mg tablet 04/08 completed Not Available Not Available Not Available levofloxac in 500 mg tablet 02/02 completed Not Available Not Available Not Available methylpred nisolone 4 mg tablets in a dose pack FOLLOW PACKAGE DIRECTIO NS active Not Available Not Available No t Available albuterol sulfate HFA 90 mcg/actuat ion aerosol inhaler INHALE 1 PUFF INTO THE LUNGS EVERY 4 HOURS NEEDED FOR SHORTNES S OF BREATH OR WHEEZING active Not Available Not Available No t Available celecoxib 100 mg capsule active Not taking Not Available Not Available Not Available ondansetro n 4 mg disintegra ting tablet 04/08 completed Not Available Not Available Not Available metformin ER 500 mg tablet,ext ended release 24 hr 02/17 completed Not Available Not Available Not Available drospireno ne 3 mg-ethinyl estradiol 0.03 mg tablet TAKE 1 TABLET BY MOUTH EVERY DAY active Not Available Not Available No t Available doxycyclin e hyclate 100 mg tablet 02/17 completed Not Available Not Available Not Available Sudafed 12 Hour 120 mg tablet,ext ended release Take 1 tablet as needed by oral route. 02/17 completed Not Available Not Available Not Available naproxen 500 mg tablet 04/08 completed Not Available Not Available Not Available diazepam 5 mg tablet TAKE 1 TABLET BY MOUTH TWICE DAILY NEEDED FOR ANXIETY active Not Available Not Available No t Available metoclopra mide 10 mg tablet TAKE 1 TABLET BY MOUTH TWICE DAILY NEEDED FOR NAUSEA OR VOMITING active Not Available Not Available No t Available amoxicilli n 875 mg-potassi um clavulanat e 125 mg tablet TAKE 1 TABLET BY MOUTH TWICE DAILY active Not Available Not Available No t Available trimethobe nzamide 300 mg capsule 02/17 completed Not Available Not Available Not Available escitalopr am 10 mg tablet 02/17 completed Not Available Not Available Not Available cyclobenza emily 5 mg tablet 02/17 completed Not Available Not Available Not Available K-Phos Original 500 mg soluble tablet 02/17 completed Not Available Not Available Not Available fluocinolo ne 0.01 % scalp oil and shower cap 02/17 completed Not Available Not Available Not Available Vitamin C 02/17 completed Not Available Not Available Not Available hydrocodon e 5 mg-acetami nophen 300 mg tablet 04/08 completed Not Available Not Available Not Available drospireno ne 3 mg-ethinyl estradiol 0.02 mg tablet TAKE 1 TABLET BY MOUTH EVERY DAY active Not Available Not Available No t Available Advair HFA 115 mcg-21 mcg/actuat ion aerosol inhaler 02/17 completed Not Available Not Available Not Available ProChamber active Not Available Not Av ailable Not Available Linzess 145 mcg capsule Take 1 capsule as needed by oral route. 08/18 /2023 completed Not Available Not Available Not Available Flonase Allergy Relief 50 mcg/actuat ion nasal spray,susp ension [place] 1 spray every day by intranas al route. 02/17 completed Not Available Not Available Not Available Trulance 3 mg tablet active Not taking 02/09/24 Not Available Not Available Not Available baclofen 5 mg tablet 02/17 completed Not Available Not Available Not Available Xolair 150 mg/mL subcutaneo us syringe active Not taking 02/09/24 Not Available Not Available Not Available Xolair 300 mg/2 mL subcutaneo us syringe active Not Available Not Available N ot Available Vitals Date Recorded Heart rate Body height Body mass index (BMI) Body weight Systolic blood pressure Diastolic blood pressure Provider Name and Address Organization Details Last Updated DateTime 3 102 /min 172 cm 29.4 kg/m2 88296 g 138 mm[Hg] 88 mm[Hg] Calista Ovalle [facility] 3 09:40:12 Date Recorded Body height Provider Name an d Address Organization Details Last Updated DateTime 08/25/2023 172 cm Chapis Salas [facility] 08/25/2023 11:20:45 Social History Question Answer Notes LastModified by Organizat ion Details LastModified Time Tobacco Smoking Status Never Smoker Vinh Huizar LPN [facility] 04/08/2019 09:19:44 What Is Your Level Of Alcohol Consumption? Occasional [email or web address] Information not available 02/17/2023 Are You Blind Or Do You Have Difficulty Seeing? Yes Glasses [email or web address] Information not available 09/11/2024 What Is Your Level Of Caffeine Consumption? Moderate [email or web address] Information not available 09/11/2024 Are You Currently Employed? No [email or web address] Information not available 02/17/2023 Are You Deaf Or Do You Have Serious Difficulty Hearing? No [email or web address] Information not available 09/11/2024 What Type Of Diet Are You Following? REGULAR [email or web address] Information not available 02/17/2023 Do You Or Have You Ever Used E-cigarettes Or Vape? Never Used Electronic Cigarettes [email or web address] Information not available 04/08/2019 Physical Therapy No Informat ion not available 02/03/2020 Speech Therapy No Informatio n not available 02/03/2020 Occupational Therapy No Information not available 02/03/2020 Have You Had A Fever And/or Symptoms Of A Lower Respiratory Illness (cough, Difficulty Breathing, Etc)? No Information not available 02/03/2020 What Was The Date Of Your Most Recent Tobacco Screening? 09/11/2024 [email or web address] Information not available 09/11/2024 Do You Have Any Pets? Yes [email or web address] Information not available 02/17/2023 Do You Use Your Seat Belt Or Car Seat Routinely? Yes [email or web address] Information not available 02/17/2023 Do You Have Smoke And Carbon Monoxide Detectors In Your Home? Yes [email or web address] Information not available 02/17/2023 Do You Or Have You Ever Used Smokeless Tobacco? Never Used Smokeless Tobacco [email or web address] Information not available 04/08/2019 How Much Tobacco Do You Smoke? No [email or web address] Information not available 04/08/2019 Do You Use Any Illicit Or Recreational Drugs? No [email or web address] Information not available 09/11/2024 How Many Years Have You Smoked Tobacco? 0 [email or web address] Information not available 04/08/2019 Are You Currently In School? No [email or web address] Information not available 02/17/2023 Sex: Female Functional Status Question Answer Note LastModified by Organization D etails LastModified Time What is your exercise level? None Information not available 09/11/2024 Mental Status None recorded. Family History Nothing Reported. Medical History No medical history recorded. Gynecological HistoryNo gynecological history recorded. 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 51271431 Q79.62 Postural o rthostatic tachycardia syndrome 993066279 I95.1 [id number] Denis Bush MD IND_PED_D [facility] [address] [place] [address] [place] [address] 2 02/03/2020 08:02:45 02/03/2020 11:36:44 Health education given 267741007 Z71.9 Muscle pain 43182403 M79 .10 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 96073633 Q79.62 [id number] Denis Bush MD IND_PED_D [facility] [address] [place] [address] [place] [address] 2 02/17/2023 09:19:03 02/17/2023 10:23:58 Nausea and vomiting 40494046 R11.2 ?dysautono rosy Postural o rthostatic tachycardia syndrome 550710490 I95.1 Muscle pain 66537558 M79 .10 Multiple joint pain 3567 8005 M25.50 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 80441603 Q79.62 [id number] Denis Bush MD IND_PED_D [facility] [address] [place] [address] [place] [address] 2 08/25/2023 11:20:24 08/25/2023 12:13:59 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 36866741 Q79.62 Multiple joint pain 3567 8005 M25.50 Postural o rthostatic tachycardia syndrome 280485019 I95.1 Muscle pain 01454991 M79 .10 [id number] Denis Bush MD IND_PED_D [facility]DOC [address] [place] [address] [place] [address] 2 02/09/2024 08:10:27 02/09/2024 08:36:09 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 04906138 Q79.62 Multiple joint pain 3567 8005 M25.50 Postural o rthostatic tachycardia syndrome 661779280 I95.1 Muscle pain 52813606 M79 .10 [id number] Denis Bush MD IND_PED_D GH_DOC [address] [place] [address] [place] [address] 2 09/11/2024 14:02:38 09/11/2024 14:33:31 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 86197256 Q79.62 Postural o rthostatic tachycardia syndrome 967476139 I95.1 Muscle pain 46021201 M79 .10 Mast cell activation syndrome 9150813331 2792596 D89.40 Health Concerns Section Related Observation LastModified by Organization Detai ls LastModified Time None Recorded Concern Status LastModified by Organization Details LastModified Time None Recorded Advance Directives Directive None Recorded Payers Encounter Date Sequence Insurance Name Policy Number Policy Hilario Covered Member ID Hilario Member ID Guarantor Name 02/03/2020 1 [facility] [id number] Anson Koenig [id number] Rosangela Koenig 02/17/2023 1 [facility] [id number] Anson Koenig [id number] Rosangela Koenig 08/25/2023 1 [facility] [id number] Anson Koenig [id number] Rosangela Koenig 02/09/2024 1 [facility] [id number] Anson Koenig [id number] Rosangela Koenig Notes Date Note Type Note Provider Name and Address Organization Details Recorded Time 02/03/2020 text/html Patient acknowle dged, consented, and participated in this {{telephone - audio only visit. telephone - audio and video visit which was conducted using secure real time audio and video.*}} Patient co-pay amounts may apply to virtual services when coverage is available per your payor. If coverage is not available, patient assumes responsibility for payment. 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 She was last seen on 04/08/19. Rosangela has had a navicular/talus dislocation. She is followed by a mica washer gluer and orthopedist. She has gone through two closed reductions. The foot feels better and she is able to walk on it. Rosangela also dislocated her left acromioclavicular joint. She underwent two stem cell injections with good benefit. Rosangela has had an increase in jaw dislocations. Fortunately, she and her have been able to re-locate the jaw. She is followed by Dr. Hernandez but has not been able to follow up. She is currently working an communications department chairperson to fix her bite before consideration of an oral appliance. 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 She reports occasional migrating muscle spasms often involving her neck and back. Rosangela is having oral ulcers. She was referred to an it disaster recovery manager to look at possible mast cell involvement. Denis Bush MD [address] [place] [address], [address], [place], [address], 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 She was last seen on 02/03/2020. She is accompanied by her partner. Rosangela reports three ongoing issues. Rosangela has nausea and vomiting after eating meals. This typically occurs about 15-30 minutes afterwards. Etiology is unclear but she has not consulted gastroenterology. 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 She has been taking antihistamines and recently placed on Xolair. Rosangela has benefited from use of cyclobenzaprine but she has not been using it for fear of dependency. Rosangela has also had three syncopal convulsions. No MRI and no further workup. Denis Bush MD [address] , [address], [place], [address], [facility] 02/20/2023 08:08:48 08/25/2023 text/html Patient acknowle dged, consented, and participated in this {{telephone - audio only visit. telephone - audio and video visit which was conducted using secure real time audio and video.*}} Patient co-pay amounts may apply to virtual services when coverage is available per your payor. If coverage is not available, patient assumes responsibility for payment. 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 She was last seen on 02/17/23. Rosangela states she is doing ok . She did see local genetics who referred her to pain management. They only do local injections which she has not interested in. She uses acetaminophen as needed but with little relief. The cyclobenzaprine does help. Tramadol helped in the past but she was taken off of this when placed on diazepam for anxiety. She has tried tried pregabalin, gabapentin, duloxetine, and amitriptyline but had side-effects. She also has to worry about QT prolongation. Rosangela had physical therapy a few months ago and is maintaining her home exercise program. Rosangela also was seen by GI for her recurring vomiting. She had a gastric emptying scan that is reported as normal. She was told it was her EDS and was given Reglan daily plus compazine BID (daily and as needed) which is helping. Denis Bush MD [address], [place], [address], [place] [facility] 08/25/2023 12:13:27 02/09/2024 text/html Patient acknowle dged, consented, and participated in this {{telephone - audio only visit. telephone - audio and video visit which was conducted using secure real time audio and video.*}} Patient co-pay amounts may apply to virtual services when coverage is available per your payor. If coverage is not available, patient assumes responsibility for payment. 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 She was last seen on 08/25/23. Rosangela continues her home exercises. The cyclobenzaprine is still helping. She is to have surgery on her right foot with crossed toes. Expected recovery is 3-4 weeks although she may have tendon repair. Rosangela is using more salt (capsules) in the heat and staying out of the heat as much as possible. Rosangela reports having a dental visit and dislocating her jaw recently. Denis Bush MD [address], [address], [place] 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 She was last seen on 12/10/23. Rosangela states her joints are ok. She was recently hospitalized twice for allergic reactions. Her face was swollen and she was on steroids. She states that her jaw continued to dislocate. Otherwise her hip and shoulder are subluxing. She is trying to adhere to her home exercises and increasing her activities. Rosangela states she feels she continues to benefit from use of the cyclobenzaprine. Rosangela's POTS symptoms are also ok. She continues her hydration and takes Vitassium supplements. 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 She takes Zyrtec twice daily plus famotidine and has recently added Benadryl. Denis Bush MD [address] , [address], [place], [address], [place] [facility] [place] [facility] [place] 09/11/2024 14:32:39 OBGyn Episode No OBEpisode recorded.
--- OUTSIDE RECORDS SUMMARY | 2024-09-29 14:12 | XMS_ITS | Clinical Summary ---
Author Organization [facility] Address [address] [place] [address] Care Team Providers Care Technical Buyer Name Role Phone Shannan Maldonado MD Primary Care Provider [phone] Source Comments [facility],non-[facility] Affiliates and Associated Physician Practices is amultiple site organization consisting of ambulatory clinics and hospital sitesin [place] and [place]. This disclosure is being madepursuant to the Care Everywhere program and may not contain all information available regarding this patient. Last updated 18.[facility] Allergies Active Allergy Reactions Criticality Noted Date [...] fluticasone propionate (FLONASE) 50 MCG/ACT nasal spray [place] 2 sprays into each nostril once daily [...] 06/13/2019 Assessment & Plan (06/13/2019 10:22 AM CELL LINER): POTS patients commonly have mast cell disorders. [...] 2015 Assessment & Plan (06/13/2019 10:19 AM CELL LINER): Would avoid high osmotic salt loads/salt tablets. Ok to just liberalize salt intake and eat banannas for potassium Postural orthostatic tachycardia syndrome 2015 Assessment & Plan (09/05/2019 10:06 AM CELL LINER): Her symptoms are well-controlled today. She dislocated [...] intake. Assessment & Plan (06/13/2019 10:47 AM CELL LINER): Postural orthostatic tachycardia syndrome (POTS) is a [...] 05/21/2010 Assessment & Plan (09/05/2019 10:07 AM CELL LINER): She had a routine screening echo today. Her aortic root today does not appear dilated by my view. Will await final read and call her if this is abnormal. Otherwise, q2yr echo. Assessment & Plan (06/13/2019 10:18 AM CELL LINER): The patient was diagnosed with EDS several [...] Comments Blood Pressure 122/90 09/05/2019 9:40 AM CELL LINER Pulse 112 09/05/2019 9:40 AM CELL LINER Temperature 36.8 C (98.2 F) 03/02/2019 7:52 AM CDT Respiratory Rate 18 03/02/2019 7:52 AM CDT Oxygen Saturation 99% 06/13/2019 8:42 AM CELL LINER Inhaled Oxygen Concentration - - Weight 63.5 kg (140 lb) 09/05/2019 8:22 AM CELL LINER Height 170.2 cm (5' 7 ) 09/05/2019 8:22 AM CELL LINER Body Mass Index 21.93 09/05/2019 8:22 AM CELL LINER Plan of Treatment Upcoming Encounters Date Type Department Care Team (Late st Contact Info) Description 11/08/2024 3:40 PM CDT Office Visit [facility] - Cardiology [address], [facility] [address] [place] [address] Javed Julio MD [address] [place] [address] Health Maintenance Due Date Last [...] ve Non-react hayder 02/28/2019 4:05 PM CDT [facility] Comment: Neither HIV-1 p24 Antigen nor HIV-1/HIV-2 Antibodies are detected. Blood BLOOD SPECIMEN / Unknown Venipuncture / Unknown 02/28/2019 1:57 PM CDT 02/28/2019 3:22 PM CDT Abel Barrientos MD LAB - HEMATOLOGY ORD ERABLES [address] [phone] from Last 3 Months or Most Recently Relevant to Health Maintenance Advance Directives * Full Code (Latest Code Status on File) Date Activated Date Inactivated Comments 02/28/2019 11:41 PM 03/02/2019 12:34 PM * Full Code Date Activated Date Inactivated Comments 02/28/2019 8:46 PM 02/28/2019 11:41 PM Care Teams Technical Buyer Relationship Specialty Start Date End Date Shannan Maldonado MD [address] [place] [address] PCP - General Family Medicine 03/22/16
--- OUTSIDE RECORDS SUMMARY | 2024-09-29 14:12 | XMS_ITS | Clinical Summary ---
Author Organization [facility] Address [address] [place] [address] Care Team Providers Care Coding Consultant Name Role Phone Shannan Maldonado MD Primary Care Provider Celio Jacques MD Unavailable Allergies Active Allergy [...] this topic Medical Devices Implanted Type Area Assistant Terminal Manager Device Identifier Shelf Expiration Date Model / Serial / Lot Staple Bone [id number] m 2m - [id number] Implanted:Qty: 1 on 02/16/2024 by Pranay Dejesus DPM at [facility] Sheila[employer]DANG Edwards Right: Foot [employer] 06/01/2027 [id number] / / [id number] Wire Ba .045in 4in - [id number] Implanted:Qty: 1 on 03/17/2023 by Pranay Dejesus DPM at [facility] Monique Right: Toe [employer] [id number] / / Description:Right second toe Insurance [facility] Care Teams Coding Consultant Relationship Specialty Start Date End Date Shannan Maldonado MD PCP - General 05/06/16 Celio Jacques MD [address] [facility] [address] [place] [address] CARDIOLOGY 03/14/23
--- OUTSIDE RECORDS SUMMARY | 2024-09-29 14:12 | XMS_ITS | Continuity of Care Document ---
Author Organization [facility] Address [address] [facility] [address] [place] [address] Phone Care Team Providers Care Brush And Broom Clipper Name Role Phone No Information Unavailable Unavailable Advance Directives Directive Yes / No Effective Date File Name No Information Encounters Encounter Description Practice Location Reason(s) For Visit Diagnoses Date Provider Providers Copied on Encounter [facility], [address] [facility] [address], [place], [place], [id number], [place] tel:[phone] [facility] No Information No Information Family History Family [...]
--- OUTSIDE RECORDS SUMMARY | 2024-09-29 14:12 | XMS_ITS ---
Author Organization [facility] Address [address] [place] [address] Care Team Providers Care Lithographic Proofer Name Role Phone Shannan Maldonado Primary Care Provider Romy Clark Unavailable [phone] REASON FOR VISIT XOLAIR SP Follow-up Encounters Encounter Location Date Provider Diagnosis [facility] [address] [place] [address] [address] [place] [address] 09/25/2024 Romy Montiel Plan Of Treatment Next Appt Details Provider Name:Romy archer, 10/02/2024 02:45:00 PM, [address] [facility], [address], [place], [address], Progress Notes * Rosangela KOENIGDOB:[birth year] (34 yo F)Acc No.[id number]:09/25/2024 XOLAIR F/U Patient: Janis Rosangela ACOSTA Provider: aNni Montiel MD :1990 A ge:34 Y S ex:Female Date:09/25/2024 [facility] Pcp:Shannan Maldonado Subjective: * Chief Complaints: * 1 . XOLAIR SP Follow-up. * Medical History: Objective: * Vitals: Assessment: Plan: * Treatment: * Billing Information: * Visit Code: * Procedure Codes: * Electronic signature of Bailey Montiel MD on 09/29/2024 at 02:12 PM CDT Sign off status: Pending * Provider: Nani Montiel MD Date: 0 09/25/2024 Generated for Robert brady/Jacque/Kiya on: 0 09/29/2024 02:12 PM CDT
--- OUTSIDE RECORDS SUMMARY | 2024-09-29 14:13 | XMS_ITS ---
Author Organization [facility] Address [address] [place] [address] Care Team Providers Care Machine Room Engineer Name Role Phone Shannan Maldonado Primary Care Provider Romy Clark Unavailable [phone] REASON FOR VISIT Chronic care management Encounters Encounter Location Date Provider Diagnosis [facility] [address] [place] [address] 09/17/2024 Romy Montiel Plan Of Treatment Next Appt Details Provider Name:Romy archer, 10/02/2024 02:45:00 PM, [address] [facility], [address], [place], [address], Progress Notes * Rosangela KOENIGDOB:[birth year] (34 yo F)Acc No.[id number]:09/17/2024 Patient: Rosangela PEGUERO :1990 A ge:34 Y S ex:Female Address:[address] [place] [address] [place], [address] * true * Date: Generated for Printi ng/Faxing/eTransmitting on: 0 09/29/2024 02:12 PM CDT
--- OUTSIDE RECORDS SUMMARY | 2024-09-29 14:13 | XMS_ITS | Encounter Summary ---
Author Organization [facility] Healthcare Address [address] [place] [address] Care Team Providers Care [employer] Chair Name Role Phone Shannan Maldonado MD Primary Care Provider [phone] Reason for Visit * Reason Comments Shortness of Breath Encounter Details Date Type Department Care Team (Late st Contact Info) Description 09/28/2024 7:55 PM CDT - 09/28/2024 10:39 PM CDT Emergency [facility] Emergency Department [address] [place] [address] [id number] Simran Frank MD [address] [place] [address] [place] [address] Allergic reaction, initial encounter (Primary Dx) Discharge Disposition: Discharge to home or self care Social History Tobacco Use Types Packs/Day Years Used Date Smoking Tobacco: Never Smokeless Tobacco: Never Alcohol Use Standard Drinks/Week Comments Not Currently 0 (1 standard drink = 0.6 oz pur e alcohol) [facility] Utilities Answer Date Recorded In the past 12 months has [employer] electric, gas, oil, or water company threatened to shut off services in your [...] often do you attend chur ch or restorationism services? Never 09/24/2024 Do you belong to any clubs o r organizations such as orthodoxy groups, unions, fraternal or athletic groups, or [...] any time in the past 12 m [facility], were you homeless or living in a snf (including now)? No 09/24/2024 Personal Safety Answer Date Recorded Have you ever been in or are you currently in a harmful physical or emotional relationship or is someone making you feel afraid or unsafe? 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 Gender Identity Female 07/01/2022 7:31 PM RELAY MECHANIC Sexual Orientation Not on file documented as of this encounter Last Filed Vital Signs Vital Sign Reading Time Taken Comments Blood Pressure 147/105 09/28/2024 10:30 PM CDT Pulse 107 09/28/2024 10:30 PM CDT Temperature 36.8 C (98.3 F) 09/28/2024 7:57 PM CDT Respiratory Rate 14 09/28/2024 10:30 PM CDT Oxygen Saturation 97% 09/28/2024 10:30 PM CDT Inhaled Oxygen Concentration - - Weight 93.6 kg (206 lb 5.6 oz) 09/28/2024 7:57 P M CDT Height 170.2 cm (5' 7 ) 09/28/2024 7:57 PM CDT Body Mass Index 32.32 09/28/2024 7:57 PM CDT documented in this encounter Discharge Instructions * Attachments The following attachments cannot be sent through Care Everywhere. * ALLERGIC REACTION, OTHER (LOCAL) (CAMEROONIAN) documented in this encounter Medications at Time of Discharge cetirizine (ZyrTEC) 10 mg tablet Take 1 tablet (10 mg total) by mouth 2 (two) times a day cyclobenzaprine (FLEXERIL) 10 mg tablet Take 1 tablet (10 mg total) by mouth 2 (two) times a day diazePAM (VALIUM) 5 mg tablet Take 1 tablet (5 mg total) by mouth 3 (three) times a day as needed for anxiety 20 tablet 02/16/2021 EPINEPHrine (EpiPen) 0.3 mg/0.3 mL auto-injection syringeIndications :Anaphylaxis Inject 0.3 mL (0.3 mg total) into the muscle as instructed as needed for anaphylaxis 1 each 3 09/05/2024 famotidine (PEPCID) 40 mg tablet Take 1 tablet (40 mg total) by mouth 2 (two) times a day 09/17/2022 metoclopramide (REGLAN) 10 mg tablet Take 1 tablet (10 mg total) by mouth 2 (two) times a day as needed 09/27/2022 omalizumab (Xolair) 300 mg/2 mL syringe Inject 2 mL (300 mg total) under the skin every 14 (fourteen) days predniSONE (DELTASONE) 20 mg tabletIndications: Asthma Exacerbation Take 2 tablets (40 mg) by mouth daily 2 tablet 09/25/2024 prochlorperazine (COMPAZINE) 10 mg tablet Take 1 tablet (10 mg total) by mouth every 6 (six) hours as needed for nausea or vomiting pseudoephedrine ER (SUDAFED) 120 mg 12 hr tabletIndications: Nasal Congestion Take 1 tablet (120 mg total) by mouth every 12 (twelve) hours as needed for congestion traZODone (DESYREL) 50 mg tablet Take 1 tablet (50 mg total) by mouth nightly as needed for sleep triamcinolone (KENALOG) 0.1 % paste Apply 0.25 inches to teeth 2 (two) times a day as needed for mucositis documented as of this encounter Discharge Disposition Disposition Code Departure Means Destination Comment s Discharge to home or self care documented in this encounter ED Notes * Simran Frank MD - 09/28/2024 9:46 PM CDT HPI Chief Complaint Patient presents with ??? Shortness of Breath HPI 9:46 PM Rosangela Koenig is a 34 y.o. female presenting to the ED c/o difficulty breathing. 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 Patient is in the emergency department a couple times month for similar symptoms. Vital signs were stable and she isnot hypoxic she has upper airway noises on exam. No visible rash or difficulty with secretions on exam Patient History: Past Medical History: Diagnosis Date ??? Allergic rhinitis ??? Anxiety ??? Asthma ??? Autoimmune disease ??? Dizziness ??? Ear problems ??? 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 Heart disease ??? 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 Personal history of other specified conditions History of syncope - (Added by TW Conv) ??? POTS (postural orthostatic tachycardia syndrome) ??? Sinusitis ??? Tinnitus ??? TMJ dysfunction Past Surgical History: Procedure Laterality Date ??? CARPAL TUNNEL RELEASE Bilateral 2015, 2020 ??? KNEE SURGERY Knee Surgery - ligament reconstruction 10/2009 (Added by TW Conv) ??? CO BIOPSY MUSCLE SUPERFICIAL Biopsy Muscle - 2006 (Added by TW Conv) ??? CO COLONOSCOPY FLX DX W/COLLJ SPEC WHEN PFRMD Colonoscopy - (Added by TW Conv) CO DILATION & CURETTAGE DX&/THER NONOBSTETRIC Dilation And Curettage - (Added by TW Conv) ??? CO RELEASE TARSAL TUNNEL Decompression Tarsal Tunnel Release Left Foot - (Added by TW Conv) CO TONSILLECTOMY PRIMARY/SECONDARY <AGE 12 Tonsillectomy - (Added by TW Conv) ??? WISDOM TOOTH EXTRACTION Oral Surgery Tooth Extraction [place] Tooth - (Added by TW Conv) Family History Adopted: Yes Social History Tobacco Use ??? Smoking status: Never ??? Smokeless tobacco: Never Substance and Sexual Activity ??? Drug use: Never ??? Sexual activity: Not on file Alcohol Use: Not At Risk (09/02/2024) AUDIT-C ??? Frequency of Alcohol Consumption: Monthly or less ??? Average Number of Drinks: 1 or 2 ??? Frequency of Binge Drinking: Never No current facility-administered medications for this encounter. Current Outpatient Medications: ??? cetirizine (ZyrTEC) 10 mg tablet ??? cyclobenzaprine (FLEXERIL) 10 mg tablet ??? diazePAM (VALIUM) 5 mg tablet ??? EPINEPHrine (EpiPen) 0.3 mg/0.3 mL auto-injection syringe ??? famotidine (PEPCID) 40 mg tablet ??? metoclopramide (REGLAN) 10 mg tablet ??? omalizumab (Xolair) 300 mg/2 mL syringe ??? predniSONE (DELTASONE) 20 mg tablet ??? prochlorperazine (COMPAZINE) 10 mg tablet ??? pseudoephedrine ER (SUDAFED) 120 mg 12 hr tablet ??? traZODone (DESYREL) 50 mg tablet ??? triamcinolone (KENALOG) 0.1 % paste Review of Systems Review of Systems All systems reviewed and are neg or non contributory for this patients presentation today other than as stated in the HPI . Physical Exam ED Triage Vitals [09/28/241956] Temp Pulse Resp BP SpO2 36.8 ??C (98.3 ??F) (!) 166 (!) 36 (!) 145/102 99 % Temp src Heart Rate Source Patient Position BP Location FiO2 (%) Oral -- -- -- -- Height Height Method Weight Weight Method 1.702 m (5' 7 ) Stated 93.6 kg (206 lb 5.6 oz) Standing scale Physical Exam Vitals and nursing note reviewed. Constitutional: General: She is not in acute distress. Appearance: Normal appearance. She is not ill-appearing. Comments: Anxious HENT: Head: Normocephalic. Cardiovascular: Rate and Rhythm: Normal rate. Pulmonary: Effort: Pulmonary effort is normal. No respiratory distress. Breath sounds: Normal breath sounds. Musculoskeletal: General: Normal range of motion. Cervical back: Normal range of motion. No rigidity. Skin: General: Skin is warm and dry. Neurological: General: No focal deficit present. Mental Status: She is alert and oriented to person, place, and time. Psychiatric: Mood and Affect: Mood normal. Behavior: Behavior normal. Procedures MDM Labs Reviewed CBC WITH AUTO DIFFERENTIAL - Abnormal Result Value WBC 18.6 (*) Hgb 11.3 (*) Hct 36.0 Plt 601 (*) MPV 9.1 RBC 4.56 MCV 78.9 (*) MCH 24.8 (*) MCHC 31.4 (*) RDW CV 15.2 (*) RDW SD 43.6 NRBC abs 0.03 (*) COMPREHENSIVE METABOLIC PANEL - Abnormal Sodium 142 Potassium, pl 3.2 (*) Chloride 103 CO2 23 Anion gap 16 (*) BUN 18 Creatinine 0.80 Glucose 108 Calcium 10.0 Bilirubin, total <0.2 Protein, pl 7.4 Albumin 4.4 Alk phos 77 ALT 28 AST 22 DIFFERENTIAL AUTO - Abnormal Neutrophil abs 12.9 (*) Imm gran abs 0.2 (*) Lymphocyte abs 3.9 (*) Monocyte abs 1.6 (*) Eosinophil abs 0.0 Basophil abs 0.0 Neutrophil pct 69.2 Imm gran pct 1.1 Lymphocyte pct 20.7 Monocyte pct 8.7 Eosinophil pct 0.1 Basophil pct 0.2 EGFR eGFR >90 XR Chest 1 Vw Portable Final Result XR Neck Soft Tissue (Results Pending) BP (!) 138/103 Pulse 117 Temp 36.8 ??C (98.3 ??F) (Oral) Resp 17 Ht 170.2 cm (5' 7 ) Wt 93.6 kg (206 lb 5.6 oz) LMP 08/26/2024 (Exact Date) SpO2 97% BMI 32.32 kg/m?? [facility] ED Course as of 09/28/242233 Time: 09/28 2053 Comment: Patient's lungs are clear to auscultation and she is not making upper respiratory noise until I walk in the room. When I listen to her lungs she starts making a sound with her throat, soft tissue neck ordered. Vital signs are stable except for tachycardia. Oxygen saturation 99-100% on roomair By: Simran Frank MD Time: 09/28 2148 Comment: Point blood cell count elevated chronically due to steroids By: Simran Frank MD Time: 09/28 2148 Comment: Persistent tachycardia secondary to epinephrine and Xopenex By: Simran Frank MD Time: 09/28 2148 Comment: Patient is feeling much better after getting the Xopenex. No signs of allergic reaction currently By: Simran Frank MD Time: 09/28 2232 Comment: Patient has been in the emergency department monitored for the past couple hours. No worsening of her symptoms. Soft tissue neck x-ray normal. Heart rate stable blood pressure normal. Patient's respirations 18, will dc By: Simran Frank MD This examination was transcribed using the [employer] voice recognition system without human valver. In an effort to expedite patient care, this report has not been adjusted for typographical, grammatical, and syntax by a trained medical laboratory manager. Clinical Impression: No diagnosis found. 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 Wheezes throughout upon auscultation with audible wheezing. Tachycardic, htn, and tachypneic on arrival. documented in this encounter Plan of Treatment Not on file documented as of this encounter Procedures Procedure Name Priority Date/Time Associated Diagnosis Comments XR NECK SOFT TISSUE ED 09/28/2024 9 :25 PM CDT XR CHEST 1 VIEW ED 09/28/2024 8:11 PM CDT EGFR STAT 09/28/2024 8:10 PM CDT DIFFERENTIAL AUTO STAT 09/28/2024 8:1 0 PM CDT CBC WITH AUTO DIFFERENTIAL STAT 09/28/2024 8:10 PM CDT COMPREHENSIVE METABOLIC PANEL STAT 09/28/2024 8:10 PM CDT documented in this encounter Results * XR Neck Soft Tissue (09/28/2024 9:25 PM CDT) Anatomical Region Laterality Modality Head and Neck N/A Computed Radiogr aphy 09/28/2024 10:1 3 PM CDT Narrative 09/28/2024 10:18 PM CDT EXAM DESCRIPTION: XR NECK SOFT TISSUE REASON FOR STUDY: Shortness of breath Respiratory distress, pt states she has mast cell and about to go into anaphylaxis, 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 Wheezes throughout upon auscultation with audible wheezing. Tachycardic, htn, and tachypneic on arrival. TECHNIQUE: AP and lateral radiographic images of the soft tissues of the neck. COMPARISON: CT of the neck of September 10, 2021. FINDINGS: SOFT TISSUES: Epiglottis normal in thickness. No significant subglottic narrowing. Prevertebral soft tissues normal. BONY STRUCTURES: There is reversal of the normal cervical lordosis. LUNG APICES: Normal. OTHER: No radiopaque foreign body. No other significant finding. IMPRESSION: No acute abnormality seen of the soft tissues of the neck. Reversal of the normal cervical lordosis may be secondary to positioning or muscle spasm. THIS IS AN ELECTRONICALLY VERIFIED FINAL REPORT 09/28/2024 10:18 PM - Electronically signed by Shirley Reardon M.D. 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 Wheezes throughout upon auscultation with audible wheezing. Tachycardic, htn, and tachypneic on arrival. TECHNIQUE: AP and lateral radiographic images of the soft tissues ofthe neck. COMPARISON: CT of the neck of September 10, 2021. FINDINGS: SOFT TISSUES: Epiglottis normal in thickness. No significant subglottic narrowing. Prevertebral soft tissues normal. BONY STRUCTURES: There is reversal of the normal cervical lordosis. LUNG APICES: Normal. OTHER: No radiopaque foreign body. No other significant finding. IMPRESSION: No acute abnormality seen of the soft tissues of the neck. Reversal of the normal cervical lordosis may be secondary to positioningor muscle spasm. THIS IS AN ELECTRONICALLY VERIFIED FINAL REPORT 09/28/2024 10:18 PM - Electronically signed by Shirley Reardon M.D. 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 Wheezes throughout upon auscultation with audible wheezing. Tachycardic, htn, and tachypneic on arrival. TECHNIQUE: Single radiographic view(s) of the chest. COMPARISON: 09/23/2024 FINDINGS: LUNGS: Mild bibasilar infiltrates are suspected. The study is somewhat hampered by overlying soft tissues. No large consolidation is seen. HEART/MEDIASTINUM: Cardiac silhouette normal in size. Mediastinal and hilar contours appear normal. LINES/TUBES: None. BONES: No acute osseous abnormality. IMPRESSION: Suspected mild bibasilar infiltrates. 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 Wheezes throughout upon auscultation with audible wheezing. Tachycardic, htn, and tachypneic on arrival. TECHNIQUE: Single radiographic view(s) of the chest. COMPARISON: 09/23/2024 FINDINGS: LUNGS: Mild bibasilar infiltrates are suspected. The study is somewhat hampered by overlying soft tissues. No large consolidation isseen. HEART/MEDIASTINUM: Cardiac silhouette normal in size. Mediastinal andhilar contours appear normal. LINES/TUBES: None. BONES: No acute osseous abnormality. IMPRESSION: Suspected mild bibasilar infiltrates. THIS IS AN ELECTRONICALLY VERIFIED FINAL REPORT 09/28/2024 8:50 PM - Electronically signed by Arnold Chahal M.D. KH: GLADYS Report ID: [id number] Reading Location: [place] [address] Simran Frank MD IMG XR PROCEDURES Final R esult * eGFR (09/28/2024 8:10 PM CDT) eGFR >90 >=60 mL/min/1. 73 m2 [...] was last reviewed 2021. Testing performed by: [address] [address] Blood 09/28/2024 8:10 PM CDT 09/28/2024 8:12 PM CDT us Simran Frank MD LAB BLOOD ORDERABLES Ruthy trivedi Result [facility] [address] [facility] [place] [address] * (ABNORMAL) Differential, auto (09/28/2024 8:10 PM CDT) Neutrophil abs 12.9(H) 1.5 - 6.5 K/cumm Comment:Testing performed by : [address] [address] Imm gran abs 0.2(H) 0.0 - 0.1 K/cumm [facility] Comment:Testing performed by : [address] [address] Lymphocyte abs 3.9(H) 0.8 - 3.3 K/cumm [facility] Comment:Testing performed by : [address] [address] Monocyte abs 1.6(H) 0.2 - 0.8 K/cumm [facility] Comment:Testing performed by : [address] [address] Eosinophil abs 0.0 0.0 - 0.5 K/cumm [facility] Comment:Testing performed by : [address] [address] Basophil abs 0.0 0.0 - 0.1 K/cumm [facility] Comment:Testing performed by : [address] [address] Neutrophil pct 69.2 % [facility] Comment: Interpretive Data Percent cell count reference ranges are not reported, since discordance with absolute values may lead to misinterpretation of CBC data. Current Interpretive Data was last revised on 2017. Testing performed by: [address] [address] Imm gran pct 1.1 % [facility] Comment: Interpretive Data Percent cell count reference ranges are not reported, since discordance with absolute values may lead to misinterpretation of CBC data. Current Interpretive Data was last revised on 2017. Testing performed by: [address] [address] Lymphocyte pct 20.7 % [facility] Comment: Interpretive Data Percent cell count reference ranges are not reported, since discordance with absolute values may lead to misinterpretation of CBC data. Current Interpretive Data was last revised on 2017. Testing performed by: [address] [address] Monocyte pct 8.7 % [facility] Comment: Interpretive Data Percent cell count reference ranges are not reported, since discordance with absolute values may lead to misinterpretation of CBC data. Current Interpretive Data was last revised on 2017. Testing performed by: [address] [address] Eosinophil pct 0.1 % [facility] Comment: Interpretive Data Percent cell count reference ranges are not reported, since discordance with absolute values may lead to misinterpretation of CBC data. Current Interpretive Data was last revised on 2017. Testing performed by: [address] [address] Basophil pct 0.2 % [facility] Comment: Interpretive Data Percent cell count reference ranges are not reported, since discordance with absolute values may lead to misinterpretation of CBC data. Current Interpretive Data was last revised on 2017. Testing performed by: [address] [address] Blood 09/28/2024 8:10 PM CDT 09/28/2024 8:11 PM CDT us Simran Frank MD LAB BLOOD ORDERABLES Ruthy trivedi Result [facility] [address] [facility] [place] [address] * (ABNORMAL) Comprehensive metabolic panel (09/28/2024 8:10 PM CDT) Sodium 142 135 - 145 mmol/L Comment:Testing performed by : [address] [address] Potassium, pl 3.2(L) 3.3 - 4.9 mmol/L [facility] Comment:Testing performed by : [address] [address] Chloride 103 97 - 110 mmol/L [facility] Comment:Testing performed by : [address] [address] CO2 23 22 - 32 mmol/L [facility] Comment:Testing performed by : [address] [address] Anion gap 16(H) 2 - 15 mmol/L [facility] Comment:Testing performed by : [address] [address] BUN 18 6 - 25 mg/dL [facility] Comment:Testing performed by : [address] [address] Creatinine 0.80 0.60 - 1.10 mg/dL [facility] Comment:Testing performed by : [address] [address] Glucose 108 70 - 199 mg/dL [facility] Comment: Interpretive [...] was last revised 2022. Testing performed by: [address] [address] Calcium 10.0 8.5 - 10.3 mg/dL [facility] Comment:Testing performed by : [address] [address] Bilirubin, total <0.2 0.1 - 1.2 mg/dL [facility] Comment:Testing performed by : [address] [address] Protein, pl 7.4 6.5 - 8.5 g/dL [facility] Comment:Testing performed by : [address] [address] Albumin 4.4 3.5 - 5.0 g/dL [facility] Comment:Testing performed by : [address] [address] Alk phos 77 40 - 130 Units/L [facility] Comment:Testing performed by : [address] [address] ALT 28 7 - 45 Units/L [facility] Comment:Testing performed by : [address] [address] AST 22 10 - 45 Units/L [facility] Comment:Testing performed by : [address] [address] Blood 09/28/2024 8:10 PM CDT 09/28/2024 8:12 PM CDT us Simran Frank MD LAB BLOOD ORDERABLES Ruthy trivedi Result [facility] [address] [facility] [place] [address] * (ABNORMAL) CBC with auto differential (09/28/2024 8:10 PM CDT) [facility] WBC 18.6(H) 3.8 - 9.9 K/cumm Comment:Testing performed by : [address] [address] Hgb 11.3(L) 11.9 - 15.5 g/dL [facility] Comment:Testing performed by : [address] [address] Hct 36.0 35.6 - 45.5 % [facility] Comment:Testing performed by : [address] [address] Plt 601(H) 150 - 400 K/cumm [facility] Comment:Testing performed by : [address] [address] MPV 9.1 9.1 - 12.3 fL [facility] Comment:Testing performed by : [address], [address] RBC 4.56 3.90 - 5.20 M/cumm [facility] Comment:Testing performed by : [address] [address] MCV 78.9(L) 81.3 - 96.4 fL [facility] Comment:Testing performed by : [address] [address] MCH 24.8(L) 27.1 - 33.3 pg [facility] Comment:Testing performed by : [address] [address] MCHC 31.4(L) 32.3 - 35.7 g/dL [facility] Comment:Testing performed by : [address] [address] RDW CV 15.2(H) 11.1 - 14.9 % [facility] Comment:Testing performed by : [address] [address] RDW SD 43.6 35.7 - 48.1 fL [facility] Comment:Testing performed by : [address] [address] NRBC abs 0.03(H) 0.00 - 0.01 K/cumm [facility] Comment:Testing performed by : [address] [address] Blood 09/28/2024 8:10 PM CDT 09/28/2024 8:11 PM CDT us Simran Frank MD LAB BLOOD ORDERABLES Ruthy farooq Result [facility] [address] [facility] [place] [address] documented in this encounter Visit Diagnoses Diagnosis Allergic reaction, initial encounter- Primary documented in this encounter Administered Medications Inactive Administered Medications - up to 3 most recent administrations Medication Order MAR Action Action Date Dose Rate Site famotidine (PEPCID) injection 40 mg 40 mg, intravenous, Administer over 2 Minutes, Once, On 09/28/24 at 1957, For 1 dose, Indications: gastroesophageal reflux diseaseIndications:gastroesophage al reflux disease Given 09/28/2024 8:16 PM CDT 40 mg levalbuterol (XOPENEX) 0.63 mg/3 mL nebulizer solution 0.63 mg 0.63 mg, nebulization, Once, On 09/28/24 at 2051, For 1 dose, I /authorizing provider attest that the patient meets the approved [facility] Use Criteria: Yes Given 09/28/2024 9:05 PM CDT 0.63 mg methylPREDNISolone sodium succinate (SOLU-medrol) preservative free injection 125 mg 125 mg, intravenous, Administer over 3 Minutes, Once, On 09/28/24 at 1957, For 1 dose Given 09/28/2024 8:16 PM CDT 125 mg documented in this encounter Active and Recently Administered Medications Times are shown in CDT. Scheduled Medication Order 09/26/2024 09/27/2024 09/28/2024 famotidine (PEPCID) injection 40 mg (COMPLETED) 40 mg, intravenous, Administer over 2 Minutes, Once, On 09/28/24 at 1957, For 1 dose, Indications: gastroesophageal reflux disease 2015 (Given - Provid er: Ruiz Wilson RN) levalbuterol (XOPENEX) 0.63 mg/3 mL nebulizer solution 0.63 mg (COMPLETED) 0.63 mg, nebulization, Once, On 09/28/24 at 2051, For 1 dose, I /authorizing provider attest that the patient meets the approved [facility] Use Criteria: Yes 2105 (Given - Provid er: Susan Brown CRTT) methylPREDNISolone sodium succinate (SOLU-medrol) preservative free injection 125 mg (COMPLETED) 125 mg, intravenous, Administer over 3 Minutes, Once, On 09/28/24 at 1958, For 1 dose 2015 (Given - Provid er: Ruiz Wilson RN) documented in this encounter Care Teams [employer] Chair Relationship Specialty Start Date End Date Shannan Maldonado MD PCP - General 09/07/19 documented as of this encounter
--- OUTSIDE RECORDS SUMMARY | 2024-09-29 14:13 | XMS_ITS | Referral Summary ---
Author Organization [facility] Geena Hernandez Extdamian nsion Address [address] [facility] [place] [address] Care Team Providers Care Primer Inspector Name Role Phone Shannan Maldonado MD Primary Care Provider [phone] Encounters Date Type Department Care Team Description 09/28/2024 7:55 PM CDT - 09/28/2024 10:[address] [facility] Emergency Department [address] [place] [address] Simran Frank MD Allergic reaction, initial encounter (Primary Dx) Discharge Disposition: Discharge to home or self care 09/27/2024 3:49 AM CDT - 09/27/2024 6:[address] [facility] Emergency Department [address] [place] [address] Ferdinand Rivera DO Allergic reaction, initial encounter (Primary Dx); Jaw pain Discharge Disposition: Discharge to home or self care 09/23/2024 4:55 PM CDT - 09/24/2024 1:30 PM CDT Hospital Encounter [facility] 4 Med [address] [place] [address] Samuel Bowen MD Winston, Jared Todd, MD Ali, Md Shahin, MD Allergic reaction, initial encounter (Primary Dx) Discharge Disposition: Discharge to home or self care 09/01/2024 2:02 PM REACTOR FUELING SUPERVISOR - 09/05/2024 11:38 AM REACTOR FUELING SUPERVISOR Hospital Encounter [facility] 4 Med Surg [address] [place] [phone] Wil Monteiro MD Gaspe Mudiyanselage, MD Tobin Vinson, Venkat Robin MD Allergic reaction, initial encounter (Primary Dx) Discharge Disposition: Discharge to home or self care 08/19/2024 4:39 PM REACTOR FUELING SUPERVISOR - 08/22/2024 1:15 PM REACTOR FUELING SUPERVISOR Hospital Encounter [facility] 5 Med Surg [address] [place] [id number] José Luis Tripp MD Winston, Jorje Lester [...] mg) daily for 2 days. 20 tablet 09/06/192024 Active Problems Problem Noted Date Diagnosed Date [...] drink = 0.6 oz pur e alcohol) [facility] Utilities Answer Date Recorded In the past 12 months has [employer], gas, oil, or water [employer] threatened to shut off services in your [...] often do you attend chur ch or anabaptism services? Never 09/24/2024 Do you belong to any clubs o r organizations such as restorationism groups, unions, fraternal or athletic groups, or [...] any time in the past [address] [facility], were you homeless or living in a half-way (including now)? No 09/24/2024 Personal Safety Answer Date Recorded Have you ever been in or are you currently in a harmful physical or emotional relationship or is someone making you feel afraid or unsafe? Denies 09/28/2024 Comments No Sex and Gender Information Value Date Recorded Sex Assigned at Not on file Legal Sex Female 1:34 AM REACTOR FUELING SUPERVISOR Gender Identity Female 07/01/2022 7:31 PM REACTOR FUELING SUPERVISOR Sexual Orientation Not on file Last Filed [...] Mass Index 32.32 09/28/2024 7:57 PM CDT Plan of Treatment Not on file Procedures Procedure Name Priority Date/Time Associated Diagnosis Comments XR NECK SOFT TISSUE ED 09/28/2024 9 :25 PM CDT XR CHEST 1 VIEW ED 09/28/2024 8:11 PM CDT EGFR STAT 09/28/2024 8:10 PM CDT DIFFERENTIAL AUTO STAT 09/28/2024 8:1 0 PM CDT COMPREHENSIVE METABOLIC PANEL STAT 09/28/2024 8:10 PM CDT CBC WITH AUTO DIFFERENTIAL STAT 09/28/2024 8:10 PM CDT EGFR STAT 09/27/2024 2:58 AM CDT DIFFERENTIAL AUTO STAT 09/27/2024 2:5 8 AM CDT COMPREHENSIVE METABOLIC PANEL STAT 09/27/2024 2:58 AM CDT CBC WITH AUTO DIFFERENTIAL STAT 09/27/2024 2:58 AM CDT EGFR Routine 09/24/2024 3:43 AM CDT DIFFERENTIAL AUTO Routine 09/24/2024 3:4 3 AM CDT BASIC METABOLIC PANEL Routine 09/24/2024 3:43 AM CDT CBC WITH AUTO DIFFERENTIAL Routine 09/24/2024 3:43 AM CDT XR MANDIBLE 4 OR MORE VIEWS Critical/Life- Threatening 09/23/2024 8:29 PM CDT IN CLOSED TX STERNOCLAVICULAR DISLC W/MANIPULATION Routine 09/23/2024 [...] CBC WITHOUT DIFFERENTIAL Routine 025 4:27 AM REACTOR FUELING SUPERVISOR CBC WITHOUT DIFFERENTIAL Routine 025 4:25 AM REACTOR FUELING SUPERVISOR TROPONIN T HIGH-SENSITIVITY 2-HOUR Timed 09/01/2024 5:11 PM REACTOR FUELING SUPERVISOR URINALYSIS AND REFLEX TO MICROSCOPIC AND CULTURE STAT 09/01/2024 4:58 PM REACTOR FUELING SUPERVISOR XR CHEST 1 VIEW ED 09/01/2024 3:05 PM REACTOR FUELING SUPERVISOR EGFR STAT 09/01/2024 2:59 PM REACTOR FUELING SUPERVISOR DIFFERENTIAL AUTO STAT 09/01/2024 2:5 9 PM REACTOR FUELING SUPERVISOR MAGNESIUM STAT 09/01/2024 2:59 PM REACTOR FUELING SUPERVISOR THYROID FUNCTION CASCADE STAT 025 2:59 PM REACTOR FUELING SUPERVISOR TROPONIN T HIGH-SENSITIVITY SERIES (BASELINE, 2HR, 4HR, 6HR) STAT 09/01/2024 2:59 PM REACTOR FUELING SUPERVISOR BASIC METABOLIC PANEL STAT 09/01/2024 2:59 PM REACTOR FUELING SUPERVISOR CBC WITH AUTO DIFFERENTIAL STAT 09/01/2024 2:59 PM REACTOR FUELING SUPERVISOR POCT HCG, URINE Routine 09/01/2024 2:28 PM REACTOR FUELING SUPERVISOR ECG 12-LEAD Routine 09/01/2024 1:54 PM REACTOR FUELING SUPERVISOR EGFR Routine 08/22/2024 7:57 AM REACTOR FUELING SUPERVISOR CBC WITHOUT DIFFERENTIAL Routine 025 7:57 AM REACTOR FUELING SUPERVISOR BASIC METABOLIC PANEL Routine 08/22/2024 7:57 AM REACTOR FUELING SUPERVISOR EGFR Routine 08/21/2024 7:53 AM REACTOR FUELING SUPERVISOR CBC WITHOUT DIFFERENTIAL Routine 025 7:53 AM REACTOR FUELING SUPERVISOR BASIC METABOLIC PANEL Routine 08/21/2024 7:53 AM REACTOR FUELING SUPERVISOR IN CLOSED TX TEMPOROMANDIBULAR DISLOCATION 1ST/SBSQ Routine 08/20/2024 1:18 PM REACTOR FUELING SUPERVISOR ED MODERATE SEDATION Routine 08/20/2024 1:18 PM REACTOR FUELING SUPERVISOR XR MANDIBLE LESS THAN 4 VIEWS Critical/Life- Threatening 08/20/2024 11:41 AM REACTOR FUELING SUPERVISOR SEPSIS LACTATE WITH REFLEX Timed 08/20/2024 8:24 AM REACTOR FUELING SUPERVISOR EGFR Routine 08/20/2024 3:25 AM REACTOR FUELING SUPERVISOR CBC WITHOUT DIFFERENTIAL Routine 025 3:25 AM REACTOR FUELING SUPERVISOR BASIC METABOLIC PANEL Routine 08/20/2024 3:25 AM REACTOR FUELING SUPERVISOR SEPSIS LACTATE WITH REFLEX Timed 08/20/2024 3:25 AM REACTOR FUELING SUPERVISOR ECG 12-LEAD Routine 08/20/2024 2:26 AM REACTOR FUELING SUPERVISOR SEPSIS LACTATE WITH REFLEX STAT 08/19/2024 8:52 PM REACTOR FUELING SUPERVISOR ECG 12-LEAD STAT 08/19/2024 8:25 PM REACTOR FUELING SUPERVISOR EGFR STAT 08/19/2024 8:20 PM REACTOR FUELING SUPERVISOR DIFFERENTIAL AUTO STAT 08/19/2024 8:2 0 PM REACTOR FUELING SUPERVISOR CBC WITH AUTO DIFFERENTIAL STAT 08/19/2024 8:20 PM REACTOR FUELING SUPERVISOR COMPREHENSIVE METABOLIC PANEL STAT 08/19/2024 8:20 PM REACTOR FUELING SUPERVISOR ED CRITICAL CARE Routine 08/19/2024 5:13 PM REACTOR FUELING SUPERVISOR from Last 3 Months Results * XR Neck Soft Tissue (09/28/2024 9:25 PM CDT) Anatomical Region Laterality Modality Head and Neck N/A Computed Radiogr aphy 09/28/2024 10:1 3 PM CDT Narrative 09/28/2024 10:18 PM CDT EXAM DESCRIPTION: XR NECK SOFT TISSUE REASON FOR STUDY: Shortness of breath Respiratory distress, 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 Wheezes throughout upon auscultation with audible [...] Shirley Reardon M.D. 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 Wheezes throughout upon auscultation with audible [...] Shirley Reardon M.D. 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 Wheezes throughout upon auscultation with audible [...] Arnold Chahal M.D. 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 Wheezes throughout upon auscultation with audible [...] Arnold Chahal M.D. KH: GLADYS Report ID: [id number] Reading Location: [place] [address] Simran Frank MD IMG XR PROCEDURES Final [...] was last reviewed 2021. Testing performed by: [address] [id number] Blood 09/28/2024 8:10 PM CDT 09/28/2024 8:12 PM CDT Simran Frank MD LAB BLOOD ORDERABLES Ruthy farooq Result [facility] [address] [facility] Department [place] [address] * (ABNORMAL) Differential, auto (09/28/2024 8:10 PM CDT) Neutrophil abs 12.9(H) 1.5 - 6.5 K/cumm Comment:Testing performed by : [address] [address] Imm gran abs 0.2(H) 0.0 - 0.1 K/cumm [facility] Comment:Testing performed by : [address] [address] Lymphocyte abs 3.9(H) 0.8 - 3.3 K/cumm [facility] Comment:Testing performed by : [address] [address] Monocyte abs 1.6(H) 0.2 - 0.8 K/cumm [facility] Comment:Testing performed by : [address] [address] Eosinophil abs 0.0 0.0 - 0.5 K/cumm [facility] Comment:Testing performed by : [address] [address] Basophil abs 0.0 0.0 - 0.1 K/cumm [facility] Comment:Testing performed by : [address] [address] Neutrophil pct 69.2 % [facility] Comment: Interpretive Data Percent cell count reference ranges are not reported, since discordance with absolute values may lead to misinterpretation of CBC data. Current Interpretive Data was last revised on 2017. Testing performed by: [address] [address] Imm gran pct 1.1 % [facility] Comment: Interpretive Data Percent cell count reference ranges are not reported, since discordance with absolute values may lead to misinterpretation of CBC data. Current Interpretive Data was last revised on 2017. Testing performed by: [address] [address] Lymphocyte pct 20.7 % [facility] Comment: Interpretive Data Percent cell count reference ranges are not reported, since discordance with absolute values may lead to misinterpretation of CBC data. Current Interpretive Data was last revised on 2017. Testing performed by: [address] [address] Monocyte pct 8.7 % [facility] Comment: Interpretive Data Percent cell count reference ranges are not reported, since discordance with absolute values may lead to misinterpretation of CBC data. Current Interpretive Data was last revised on 2017. Testing performed by: [address] [address] Eosinophil pct 0.1 % [facility] Comment: Interpretive Data Percent cell count reference ranges are not reported, since discordance with absolute values may lead to misinterpretation of CBC data. Current Interpretive Data was last revised on 2017. Testing performed by: [address] [address] Basophil pct 0.2 % [facility] Comment: Interpretive Data Percent cell count reference ranges are not reported, since discordance with absolute values may lead to misinterpretation of CBC data. Current Interpretive Data was last revised on 2017. Testing performed by: [address] [address] Blood 09/28/2024 8:10 PM CDT 09/28/2024 8:11 PM CDT us Simran Frank MD LAB BLOOD ORDERABLES Ruthy trivedi Result [facility] [address] [facility] Department [place] [address] * (ABNORMAL) CBC with auto differential (09/28/2024 8:10 PM CDT) [facility] WBC 18.6(H) 3.8 - 9.9 K/cumm Comment:Testing performed by : [address] [address] Hgb 11.3(L) 11.9 - 15.5 g/dL [facility] Comment:Testing performed by : [address], [address] Hct 36.0 35.6 - 45.5 % [facility] Comment:Testing performed by : [address], [address] Plt 601(H) 150 - 400 K/cumm [facility] Comment:Testing performed by : [address] [address] MPV 9.1 9.1 - 12.3 fL [facility] Comment:Testing performed by : [address] [address] RBC 4.56 3.90 - 5.20 M/cumm [facility] Comment:Testing performed by : [address] [address] MCV 78.9(L) 81.3 - 96.4 fL [facility] Comment:Testing performed by : [address] [address] MCH 24.8(L) 27.1 - 33.3 pg [facility] Comment:Testing performed by : [address] [address] MCHC 31.4(L) 32.3 - 35.7 g/dL [facility] Comment:Testing performed by : [address], [address] RDW CV 15.2(H) 11.1 - 14.9 % [facility] Comment:Testing performed by : [address] [address] RDW SD 43.6 35.7 - 48.1 fL [facility] Comment:Testing performed by : [address], [address] NRBC abs 0.03(H) 0.00 - 0.01 K/cumm [facility] Comment:Testing performed by : [address] [address] Blood 09/28/2024 8:10 PM CDT 09/28/2024 8:11 PM CDT Simran Frank MD LAB BLOOD ORDERABLES Ruthy trivedi Result [facility] [address] [facility] Department [place] [address] * (ABNORMAL) Comprehensive metabolic panel (09/28/2024 8:10 PM CDT) Sodium 142 135 - 145 mmol/L Comment:Testing performed by : [address] [address] Potassium, pl 3.2(L) 3.3 - 4.9 mmol/L [facility] Comment:Testing performed by : [address] [address] Chloride 103 97 - 110 mmol/L [facility] Comment:Testing performed by : [address] [address] CO2 23 22 - 32 mmol/L [facility] Comment:Testing performed by : [address] [address] Anion gap 16(H) 2 - 15 mmol/L [facility] Comment:Testing performed by : [address] [address] BUN 18 6 - 25 mg/dL [facility] Comment:Testing performed by : [address] [address] Creatinine 0.80 0.60 - 1.10 mg/dL [facility] Comment:Testing performed by : [address] [address] Glucose 108 70 - 199 mg/dL [facility] [...] was last revised 2022. Testing performed by: [address] [address] Calcium 10.0 8.5 - 10.3 mg/dL [facility] Comment:Testing performed by : [address] [address] Bilirubin, total <0.2 0.1 - 1.2 mg/dL [facility] Comment:Testing performed by : [address] [address] Protein, pl 7.4 6.5 - 8.5 g/dL [facility] Comment:Testing performed by : [address] [address] Albumin 4.4 3.5 - 5.0 g/dL [facility] Comment:Testing performed by : [address] [address] Alk phos 77 40 - 130 Units/L [facility] Comment:Testing performed by : [address] [address] ALT 28 7 - 45 Units/L [facility] Comment:Testing performed by : [address] [address] AST 22 10 - 45 Units/L [facility] Comment:Testing performed by : [address] [address] Blood 09/28/2024 8:10 PM CDT 09/28/2024 8:12 PM CDT us Simran Frank MD LAB BLOOD ORDERABLES Ruthy trivedi Result [facility] [address] [facility] Department of Laboratories [place], [place] [id number] * eGFR (09/27/2024 2:58 AM CDT) eGFR >90 >=60 mL/min/1. 73 [...] was last reviewed 2021. Testing performed by: [address] [address] Blood 09/27/2024 2:58 AM CDT 09/27/2024 3:03 AM CDT us Ferdinand Rivera DO LAB BLOOD ORDERABLES Final Res ult [facility] [address] [facility] Department [place] [address] * (ABNORMAL) Differential, auto (09/27/2024 2:58 AM CDT) Pathologist [facility] Neutrophil abs 13.2(H) 1.5 - 6.5 K/cumm Comment:Testing performed by : [address] [address] Imm gran abs 0.1 0.0 - 0.1 K/cumm [facility] Comment:Testing performed by : [address] [address] Lymphocyte abs 1.7 0.8 - 3.3 K/cumm [facility] Comment:Testing performed by : [address] [address] Monocyte abs 1.0(H) 0.2 - 0.8 K/cumm [facility] Comment:Testing performed by : [address] [address] Eosinophil abs 0.0 0.0 - 0.5 K/cumm [facility] Comment:Testing performed by : [address] [address] Basophil abs 0.0 0.0 - 0.1 K/cumm [facility] Comment:Testing performed by : [address] [address] Neutrophil pct 82.5 % [facility] Comment: Interpretive Data Percent cell count reference ranges are not reported, since discordance with absolute values may lead to misinterpretation of CBC data. Current Interpretive Data was last revised on 2017. Testing performed by: [address] [address] Imm gran pct 0.8 % [facility] Comment: Interpretive Data Percent cell count reference ranges are not reported, since discordance with absolute values may lead to misinterpretation of CBC data. Current Interpretive Data was last revised on 2017. Testing performed by: [address] [address] Lymphocyte pct 10.4 % [facility] Comment: Interpretive Data Percent cell count reference ranges are not reported, since discordance with absolute values may lead to misinterpretation of CBC data. Current Interpretive Data was last revised on 2017. Testing performed by: [address] [address] Monocyte pct 6.2 % [facility] Comment: Interpretive Data Percent cell count reference ranges are not reported, since discordance with absolute values may lead to misinterpretation of CBC data. Current Interpretive Data was last revised on 2017. Testing performed by: [address] [address] Eosinophil pct 0.0 % [facility] Comment: Interpretive Data Percent cell count reference ranges are not reported, since discordance with absolute values may lead to misinterpretation of CBC data. Current Interpretive Data was last revised on 2017. Testing performed by: [address] [address] Basophil pct 0.1 % [facility] Comment: Interpretive Data Percent cell count reference ranges are not reported, since discordance with absolute values may lead to misinterpretation of CBC data. Current Interpretive Data was last revised on 2017. Testing performed by: [address] [address] Blood 09/27/2024 2:58 AM CDT 09/27/2024 3:03 AM CDT us Ferdinand Rivera DO LAB BLOOD ORDERABLES Final Res ult [facility] [address] [facility] Department [place] [address] * (ABNORMAL) CBC with auto differential (09/27/2024 2:58 AM CDT) WBC 15.9(H) 3.8 - 9.9 K/cumm Comment:Testing performed by : [address] [address] Hgb 11.3(L) 11.9 - 15.5 g/dL [facility] Comment:Testing performed by : [address] [address] Hct 36.7 35.6 - 45.5 % [facility] Comment:Testing performed by : [address] [address] Plt 532(H) 150 - 400 K/cumm [facility] Comment:Testing performed by : [address] [address] MPV 9.2 9.1 - 12.3 fL [facility] Comment:Testing performed by : [address] [address] RBC 4.50 3.90 - 5.20 M/cumm [facility] Comment:Testing performed by : [address] [address] MCV 81.6 81.3 - 96.4 fL [facility] Comment:Testing performed by : [address] [address] MCH 25.1(L) 27.1 - 33.3 pg [facility] Comment:Testing performed by : [address] [address] MCHC 30.8(L) 32.3 - 35.7 g/dL [facility] Comment:Testing performed by : [address] [address] RDW CV 15.4(H) 11.1 - 14.9 % [facility] Comment:Testing performed by : [address] [address] RDW SD 45.1 35.7 - 48.1 fL [facility] Comment:Testing performed by : [address] [address] NRBC abs 0.00 0.00 - 0.01 K/cumm [facility] Comment:Testing performed by : [address] [address] Blood 09/27/2024 2:58 AM CDT 09/27/2024 3:03 AM CDT us Ferdinand Rivera DO LAB BLOOD ORDERABLES Final Res ult [facility] [address] [facility] Department of Laboratories [place], [place] [id number] * Comprehensive metabolic panel (09/27/2024 2:58 AM CDT) Sodium 140 135 - 145 mmol/L Comment:Testing performed by : [address] [address] Potassium, pl 3.8 3.3 - 4.9 mmol/L [facility] Comment:Testing performed by : [address] [address] Chloride 103 97 - 110 mmol/L [facility] Comment:Testing performed by : [address] [address] CO2 23 22 - 32 mmol/L [facility] Comment:Testing performed by : [address] [address] Anion gap 14 2 - 15 mmol/L [facility] Comment:Testing performed by : [address], [place]., [address] BUN 11 6 - 25 mg/dL [facility] Comment:Testing performed by : [address], [place]., [address] Creatinine 0.66 0.60 - 1.10 mg/dL [facility] Comment:Testing performed by : [address], [place]., [address] Glucose 154 70 - 199 mg/dL [facility] Comment: Interpretive Data Fasting glucose >/= [...] was last revised 2022. Testing performed by: [address] [address] Calcium 10.3 8.5 - 10.3 mg/dL [facility] Comment:Testing performed by : [address] [address] Bilirubin, total <0.2 0.1 - 1.2 mg/dL [facility] Comment:Testing performed by : [address] [address] Protein, pl 7.8 6.5 - 8.5 g/dL [facility] Comment:Testing performed by : [address] [address] Albumin 4.5 3.5 - 5.0 g/dL [facility] Comment:Testing performed by : [address] [address] Alk phos 85 40 - 130 Units/L [facility] Comment:Testing performed by : [facility], [address] [place] [address]., [address] ALT 25 7 - 45 Units/L [facility] Comment:Testing performed by : [address] [address] AST 15 10 - 45 Units/L [facility] Comment:Testing performed by : [address] [address] Blood 09/27/2024 2:58 AM CDT 09/27/2024 3:03 AM CDT Ferdinand Rivera DO LAB BLOOD ORDERABLES Final Res ult [facility] [address] [facility] Department [place] [address] * eGFR (09/24/2024 3:43 AM CDT) eGFR [...] was last reviewed 2021. Testing performed by: [address] [address] Blood 09/24/2024 3:43 AM CDT 09/24/2024 4:47 AM CDT us Dariela Cortez REFORESTATION WORKER LAB BLOOD ORDERABLES Final R esult [facility] [address] [facility] Department [place] [address] * (ABNORMAL) Differential, auto (09/24/2024 3:43 AM CDT) Neutrophil abs 9.1(H) 1.5 - 6.5 K/cumm Comment:Testing performed by : [address] [address] Imm gran abs 0.0 0.0 - 0.1 K/cumm [facility] Comment:Testing performed by : [address] [address] Lymphocyte abs 0.7(L) 0.8 - 3.3 K/cumm [facility] Comment:Testing performed by : [address] [address] Monocyte abs 0.3 0.2 - 0.8 K/cumm [facility] Comment:Testing performed by : [address] [address] Eosinophil abs 0.0 0.0 - 0.5 K/cumm [facility] Comment:Testing performed by : [address] [address] Basophil abs 0.0 0.0 - 0.1 K/cumm [facility] Comment:Testing performed by : [address] [address] Neutrophil pct 89.5 % [facility] Comment: Interpretive Data Percent cell count reference ranges are not reported, since discordance with absolute values may lead to misinterpretation of CBC data. Current Interpretive Data was last revised on 2017. Testing performed by: [address] [address] Imm gran pct 0.3 % [facility] Comment: Interpretive Data Percent cell count reference ranges are not reported, since discordance with absolute values may lead to misinterpretation of CBC data. Current Interpretive Data was last revised on 2017. Testing performed by: [address] [place]., [address] Lymphocyte pct 6.9 % [facility] Comment: Interpretive Data Percent cell count reference ranges are not reported, since discordance with absolute values may lead to misinterpretation of CBC data. Current Interpretive Data was last revised on 2017. Testing performed by: [address] [address] Monocyte pct 3.1 % [facility] Comment: Interpretive Data Percent cell count reference ranges are not reported, since discordance with absolute values may lead to misinterpretation of CBC data. Current Interpretive Data was last revised on 2017. Testing performed by: [address] [address] Eosinophil pct 0.0 % [facility] Comment: Interpretive Data Percent cell count reference ranges are not reported, since discordance with absolute values may lead to misinterpretation of CBC data. Current Interpretive Data was last revised on 2017. Testing performed by: [address] [address] Basophil pct 0.2 % [facility] Comment: Interpretive Data Percent cell count reference ranges are not reported, since discordance with absolute values may lead to misinterpretation of CBC data. Current Interpretive Data was last revised on 2017. Testing performed by: [address] [address] Blood 09/24/2024 3:43 AM CDT 09/24/2024 4:50 AM CDT us Dariela Cortez REFORESTATION WORKER LAB BLOOD ORDERABLES Final R esult TAWNYA 0946 [facility] Department [place] [address] * (ABNORMAL) CBC with auto differential (09/24/2024 3:43 AM CDT) Pathologist [facility] [place] WBC 10.2(H) 3.8 - 9.9 K/cumm Comment:Testing performed by : [address] [address] Hgb 10.5(L) 11.9 - 15.5 g/dL TAWNYA Comment:Testing performed by : [address], [address] Hct 34.2(L) 35.6 - 45.5 % TAWNYA Comment:Testing performed by : [address] [address] Plt 418(H) 150 - 400 K/cumm TAWNYA Comment:Testing performed by : [address] [address] MPV 9.7 9.1 - 12.3 fL TAWNYA Comment:Testing performed by : [address], [address] RBC 4.17 3.90 - 5.20 M/cumm TAWNYA Comment:Testing performed by : [address] [address] MCV 82.0 81.3 - 96.4 fL TAWNYA Comment:Testing performed by : [address] [address] MCH 25.2(L) 27.1 - 33.3 pg TAWNYA Comment:Testing performed by : [address] [address] MCHC 30.7(L) 32.3 - 35.7 g/dL TAWNYA Comment:Testing performed by : [address], [address] RDW CV 15.6(H) 11.1 - 14.9 % TAWNYA Comment:Testing performed by : [address], [address] RDW SD 46.4 35.7 - 48.1 fL TAWNYA Comment:Testing performed by : [address], [address] NRBC abs 0.00 0.00 - 0.01 K/cumm TAWNYA Comment:Testing performed by : [address] [address] Blood 09/24/2024 3:43 AM CDT 09/24/2024 4:50 AM CDT us Dariela Gallardocroft CARLOS LAB BLOOD ORDERABLES Final R esult TAWNYA [address] [facility] Department [place] [address] * (ABNORMAL) Basic metabolic panel (09/24/2024 3:43 AM CDT) Sodium 138 135 - 145 mmol/L Comment:Testing performed by : [address] [address] Potassium, pl 4.2 3.3 - 4.9 mmol/L TAWNYA Comment:Testing performed by : [address] [address] Chloride 107 97 - 110 mmol/L TAWNYA Comment:Testing performed by : [address] [address] CO2 21(L) 22 - 32 mmol/L TAWNYA Comment:Testing performed by : [address] [address] Anion gap 10 2 - 15 mmol/L TAWNYA Comment:Testing performed by : [address] [address] BUN 10 6 - 25 mg/dL TAWNYA Comment:Testing performed by : [address] [address] Creatinine 0.71 0.60 - 1.10 mg/dL TAWNYA Comment:Testing performed by : [address] [address] Glucose 145 70 - 199 mg/dL TAWNYA [...] was last revised 2022. Testing performed by: [facility], [address] [place] [address]., [address] Calcium 9.7 8.5 - 10.3 mg/dL TAWNYA MILLS Comment:Testing performed by : [facility], [address] [place] [address]., [address] Blood 09/24/2024 3:43 AM CDT 09/24/2024 4:47 AM CDT us Dariela Cortez REFORESTATION WORKER LAB BLOOD ORDERABLES Final R esult TAWNYA MILLS 17[address] [facility] Department [place] [address] * XR Mandible 4 or [...] 9:07 PM - Electronically signed by Arnold Chahal M.D. KH: GLADYS Report ID: [id number] Reading Location: [id number] Procedure Note Arnold Chahal MD - 09/23/2024 [...] 9:07 PM - Electronically signed by Arnold Chahal M.D. KH: GLADYS Report ID: [id number] Reading Location: [place] [address] Darian Goode MD IMG XR PROCEDURES Fi nal Result * IN CLOSED TX STERNOCLAVICULAR DISLC W/MANIPULATION (09/23/2024 7:35 [...] signed by Arnold GRAHAM: GLADYS Report ID: [id number] Reading Location: [id number] Procedure Note Arnold Chahal MD - 09/23/2024 [...] signed by Arnold GRAHAM: GLADYS Report ID: [id number] Reading Location: [id number] Jorje Huynh MD IMG XR PROCEDURES Final [...] López Mcclellan M.D. MM: MM Report ID: [id number] Reading Location: [id number] Procedure Note López Mcclellan MD - 09/23/2024 [...] López Mcclellan M.D. MM: MM Report ID: [id number] Reading Location: [id number] Samuel Bowen MD IMG XR PROCEDURES F inal Result * ECG 12 lead (09/23/2024 4:46 PM CDT) Ventricular Rate EKG/Min 146 BPM [facility] Atrial Rate 292 BPM [facility] QRS-Interval (MSEC) 98 ms [facility] QT-Interval (MSEC) 350 ms [facility] QTc 545 ms [facility] R [place] 58 degrees [facility] T [place] 50 degrees [facility] Diagnosis Sinus tachycardia Incomplete right bundle branch block T-wave changes When compared with ECG of 01-SEP-2024 13:54, No significant change Confirmed by SULTAN ZUNIGA M.D. ([id number]) on 09/23/2024 9:49:04 PM [facility] 09/23/2024 4:46 PM CDT 09/23/2024 9:49 PM CDT us Samuel Bowen MD ECG ORDERABLES Fin al Result [facility] * eGFR (09/23/2024 4:27 PM CDT) Pathologist [facility] [place] eGFR 88 >=60 mL/min/1. 73 m2 Comment: [...] was last reviewed 2021. Testing performed by: [facility], [address] [place] [address], [place]., [address] Blood 09/23/2024 4:27 PM CDT 09/23/2024 4:39 PM CDT us Deisy MARQUEZ LAB BLOOD ORDERABLES Final Resu lt TAWNYA [address] [facility] Department [place] [address] * (ABNORMAL) Differential, auto (09/23/2024 4:27 PM CDT) Neutrophil abs 7.2(H) 1.5 - 6.5 K/cumm Comment:Testing performed by : [address] [address] Imm gran abs 0.0 0.0 - 0.1 K/cumm TAWNYA Comment:Testing performed by : [address] [address] Lymphocyte abs 2.4 0.8 - 3.3 K/cumm TAWNYA Comment:Testing performed by : [address] [address] Monocyte abs 0.8 0.2 - 0.8 K/cumm TAWNYA Comment:Testing performed by : [address] [address] Eosinophil abs 0.1 0.0 - 0.5 K/cumm TAWNYA Comment:Testing performed by : [address] [address] Basophil abs 0.1 0.0 - 0.1 K/cumm TAWNYA Comment:Testing performed by : [address] [address] Neutrophil pct 68.6 % TAWNYA Comment: Interpretive Data Percent cell count reference ranges are not reported, since discordance with absolute values may lead to misinterpretation of CBC data. Current Interpretive Data was last revised on 2017. Testing performed by: [address] [address] Imm gran pct 0.4 % TAWNYA Comment: Interpretive Data Percent cell count reference ranges are not reported, since discordance with absolute values may lead to misinterpretation of CBC data. Current Interpretive Data was last revised on 2017. Testing performed by: [address] [address] Lymphocyte pct 22.5 % [facility] Comment: Interpretive Data Percent cell count reference ranges are not reported, since discordance with absolute values may lead to misinterpretation of CBC data. Current Interpretive Data was last revised on 2017. Testing performed by: [address] [address] Monocyte pct 7.1 % [facility] Comment: Interpretive Data Percent cell count reference ranges are not reported, since discordance with absolute values may lead to misinterpretation of CBC data. Current Interpretive Data was last revised on 2017. Testing performed by: [address] [address] Eosinophil pct 0.7 % [facility] Comment: Interpretive Data Percent cell count reference ranges are not reported, since discordance with absolute values may lead to misinterpretation of CBC data. Current Interpretive Data was last revised on 2017. Testing performed by: [address] [address] Basophil pct 0.7 % [facility] Comment: Interpretive Data Percent cell count reference ranges are not reported, since discordance with absolute values may lead to misinterpretation of CBC data. Current Interpretive Data was last revised on 2017. Testing performed by: [address] [address] Blood 09/23/2024 4:27 PM CDT 09/23/2024 4:39 PM CDT us Samuel Boewn MD LAB BLOOD ORDERABLE S Final Result [facility] [address] [facility] Department [place] [address] * (ABNORMAL) CBC with auto differential (09/23/2024 4:27 PM CDT) WBC 10.5(H) 3.8 - 9.9 K/cumm Comment:Testing performed by : [address] [address] Hgb 11.9 11.9 - 15.5 g/dL TAWNYA Comment:Testing performed by : [address] [address] Hct 40.4 35.6 - 45.5 % TAWNYA Comment:Testing performed by : [address] [address] Plt 517(H) 150 - 400 K/cumm TAWNYA Comment:Testing performed by : [address] [address] MPV 9.3 9.1 - 12.3 fL TAWNYA Comment:Testing performed by : [address], [address] RBC 4.93 3.90 - 5.20 M/cumm TAWNYA Comment:Testing performed by : [address] [address] MCV 81.9 81.3 - 96.4 fL TAWNYA Comment:Testing performed by : [address] [address] MCH 24.1(L) 27.1 - 33.3 pg TAWNYA Comment:Testing performed by : [address] [address] MCHC 29.5(L) 32.3 - 35.7 g/dL TAWNYA Comment:Testing performed by : [address], [address] RDW CV 15.6(H) 11.1 - 14.9 % TAWNYA Comment:Testing performed by : [address] [address] RDW SD 46.5 35.7 - 48.1 fL TAWNYA Comment:Testing performed by : [address] [address] NRBC abs 0.00 0.00 - 0.01 K/cumm TAWNYA Comment:Testing performed by : [address], [address] Blood 09/23/2024 4:27 PM CDT 09/23/2024 4:39 PM CDT us Samuel Bowen MD LAB BLOOD ORDERABLE S Final Result TAWNYA 8880 [facility] Department [place] [address] * Comprehensive metabolic panel (09/23/2024 4:27 PM CDT) Sodium 141 135 - 145 mmol/L Comment:Testing performed by : [address] [address] Potassium, pl 3.3 3.3 - 4.9 mmol/L TAWNYA Comment:Testing performed by : [address] [address] Chloride 104 97 - 110 mmol/L TAWNYA Comment:Testing performed by : [address] [address] CO2 22 22 - 32 mmol/L TAWNYA Comment:Testing performed by : [address] [address] Anion gap 15 2 - 15 mmol/L TAWNYA Comment:Testing performed by : [address] [address] BUN 11 6 - 25 mg/dL TAWNYA Comment:Testing performed by : [address] [address] Creatinine 0.89 0.60 - 1.10 mg/dL TAWNYA Comment:Testing performed by : [address] [address] Glucose 153 70 - 199 mg/dL TAWNYA [...] classification and Diagnosis of Diabetes Diabetes Care 2022; 46: S19-S40. Current interpretive data was last revised 2022. Testing performed by: [address] [address] Calcium 9.9 8.5 - 10.3 mg/dL TAWNYA Comment:Testing performed by : [address] [address] Bilirubin, total <0.2 0.1 - 1.2 mg/dL TAWNYA Comment:Testing performed by : [address] [address] Protein, pl 8.0 6.5 - 8.5 g/dL TAWNYA Comment:Testing performed by : [address] [address] Albumin 4.6 3.5 - 5.0 g/dL TAWNYA Comment:Testing performed by : [address] [address] Alk phos 84 40 - 130 Units/L TAWNYA Comment:Testing performed by : [address] [address] ALT 42 7 - 45 Units/L TAWNYA Comment:Testing performed by : [address] [address] AST 27 10 - 45 Units/L [facility] Comment:Testing performed by : [address] [address] Blood 09/23/2024 4:27 PM CDT 09/23/2024 4:39 PM CDT us Samuel Bowen MD LAB BLOOD ORDERABLE S Final Result [place] [id number] [facility] Department [place] [address] * (ABNORMAL) CBC without differential (09/05/2024 4:27 AM REACTOR FUELING SUPERVISOR) [facility] WBC 14.9(H) 3.8 - 9.9 K/cumm Comment:Testing performed by : [address] [address] Hgb 10.8(L) 11.9 - 15.5 g/dL TAWNYA Comment:Testing performed by : [address], [address] Hct 35.6 35.6 - 45.5 % TAWNYA Comment:Testing performed by : [address] [address] Plt 414(H) 150 - 400 K/cumm TAWNYA Comment:Testing performed by : [address] [address] MPV 9.4 9.1 - 12.3 fL TAWNYA Comment:Testing performed by : [address], [address] RBC 4.35 3.90 - 5.20 M/cumm TAWNYA Comment:Testing performed by : [address] [address] MCV 81.8 81.3 - 96.4 fL TAWNYA Comment:Testing performed by : [address] [address] MCH 24.8(L) 27.1 - 33.3 pg TAWNYA Comment:Testing performed by : [address] [address] MCHC 30.3(L) 32.3 - 35.7 g/dL TAWNYA Comment:Testing performed by : [address] [address] RDW CV 15.4(H) 11.1 - 14.9 % TAWNYA Comment:Testing performed by : [address], [address] RDW SD 46.2 35.7 - 48.1 fL TAWNYA Comment:Testing performed by : [address] [address] NRBC abs 0.00 0.00 - 0.01 K/cumm TAWNYA Comment:Testing performed by : [address] [address] Blood 09/05/2024 4:27 AM REACTOR FUELING SUPERVISOR 09/05/2024 5:03 AM REACTOR FUELING SUPERVISOR us Venkat Rudd MD LAB BLOOD ORDERABLES Fi nal Result [facility] [address] [facility] Department [place] [address] * (ABNORMAL) CBC without differential (09/04/2024 4:25 AM REACTOR FUELING SUPERVISOR) WBC 14.5(H) 3.8 - 9.9 K/cumm Comment:Testing performed by : [address] [address] Hgb 10.5(L) 11.9 - 15.5 g/dL TAWNYA Comment:Testing performed by : [address], [address] Hct 35.4(L) 35.6 - 45.5 % TAWNYA Comment:Testing performed by : [address] [address] Plt 392 150 - 400 K/cumm TAWNYA Comment:Testing performed by : [address], [address] MPV 9.2 9.1 - 12.3 fL TAWNYA Comment:Testing performed by : [address], [address] RBC 4.27 3.90 - 5.20 M/cumm TAWNYA Comment:Testing performed by : [address] [address] MCV 82.9 81.3 - 96.4 fL TAWNYA Comment:Testing performed by : [address] [address] MCH 24.6(L) 27.1 - 33.3 pg TAWNYA Comment:Testing performed by : [address] [address] MCHC 29.7(L) 32.3 - 35.7 g/dL TAWNYA Comment:Testing performed by : [address] [address] RDW CV 15.6(H) 11.1 - 14.9 % TAWNYA Comment:Testing performed by : [address] [address] RDW SD 47.6 35.7 - 48.1 fL TAWNYA MILLS Comment:Testing performed by : [address] [address] NRBC abs 0.00 0.00 - 0.01 K/cumm TAWNYA MILLS Comment:Testing performed by : [address] [address] Blood 09/04/2024 4:25 AM REACTOR FUELING SUPERVISOR 09/04/2024 4:41 AM REACTOR FUELING SUPERVISOR us Venkat Rudd MD LAB BLOOD ORDERABLES Fi nal Result Performing Organization Address [facility]/ZIP Co de Phone Number [facility] [address] [facility] [employer] [place], [place] [id number] * Troponin T high-sensitivity 2-hour (09/01/2024 5:11 PM REACTOR FUELING SUPERVISOR) Trop T hs <6 <=14 ng/L Comment: Interpretive Data For further hscTnT resources including the diagnostic algorithm and an aid in interpretation, copy and paste this link: https://nrl.testcatalog.org/show/hsTrop Current Interpretive Data last revised 2020. Testing performed by: [address] [address] Trop T hs delta 0 ng/L TAWNYA MILLS Comment:Testing performed by : [address] [address] Trop T hs interp Insignificant TAWNYA MILLS Comment:Testing performed by : [address] [address] Blood 09/01/2024 5:11 PM REACTOR FUELING SUPERVISOR 09/01/2024 5:14 PM REACTOR FUELING SUPERVISOR us Wil Monteiro MD LAB BLOOD ORDERABLE S Final Result Performing Organization Address City/[facility]/ZIP Co de Phone Number [facility] [address] [facility] [place] [address] * Urinalysis reflex to microscopic and culture Urine (09/01/2024 4:58 PM REACTOR FUELING SUPERVISOR) Color, ur Yellow Yellow Comment:Testing performed by : [address] [address] Clarity, ur Clear Clear TAWNYA Comment:Testing performed by : [address], [place]., [address] Specific gravity, ur 1.015 1.003 - 1.030 TAWNYA Comment:Testing performed by : [address], [place]., [address] pH, urine 7.0 TAWNYA Comment: Interpretive Data U rine pH is affected by diet, medications, systemic acid-base disturbances, and renal tubular function. pH may affect urinary stone formation. For example, urine pH below 6.0 may help reduce the tendency for calcium phosphate stones and pH greater than 6.0 may reduce the tendency for uric acid stone formation. Source: [facility] [employer] Current Interpretive Data was last revised on 2017 Testing performed by: [address] [address] Protein, ur ql Negative Negative TAWNYA Comment:Testing performed by : [address] [address] Glucose, ur ql Negative Negative TAWNYA Comment:Testing performed by : [address] [address] Ketones, ur Negative Negative TAWNYA Comment:Testing performed by : [address] [address] Bilirubin, ur Negative Negative TAWNYA Comment:Testing performed by : [address] [address] Blood, ur Negative Negative TAWNYA Comment:Testing performed by : [address], [place]., [address] Urobilinogen, ur <2.0 <2.0 mg/dL TAWNAY Comment:Testing performed by : [address] [address] Nitrite, ur Negative Negative TAWNYA Comment:Testing performed by : [address] [address] Leukocyte esterase, ur Negative Negative TAWNYA MILLS Comment:Testing performed by : [facility], [address] [place] [address]., [address] UA reflex comment Reflex conditions for microscopic UA and culture not met. TAWNYA MILLS Comment:Testing performed by : [facility], [address] [place] [address]., [address] Urine 09/01/2024 4:58 PM REACTOR FUELING SUPERVISOR 09/01/2024 4:59 PM REACTOR FUELING SUPERVISOR us Wil Monteiro MD LAB MICROBIOLOGY - GENERAL ORDERABLES Final Result TAWNYA MILLS [address] [facility] Department [place] [address] * XR Chest 1 Vw Portable (09/01/2024 3:05 PM REACTOR FUELING SUPERVISOR) Anatomical Region Laterality Modality Body, Chest N/A Computed Radiogr aphy 09/01/2024 3:19 PM REACTOR FUELING SUPERVISOR Narrative 09/01/2024 3:22 PM REACTOR FUELING SUPERVISOR EXAM DESCRIPTION: XR CHEST 1 VIEW REASON FOR STUDY: allergic reaction Came to ED s/p anaphylactic reaction. Reports ate at [facility] broke out in hives and started having [...] Robi Arreola M.D. MZ: JEANNETTE Report ID: [id number] Reading Location: [id number] Procedure Note Robi Arreola MD - 09/01/2024 [...] Robi Arreola M.D. MZ: MZ Report ID: [id number] Reading Location: [id number] Wil Monteiro MD IMG XR PROCEDURES F inal Result * Troponin T high-sensitivity series (baseline, 2hr, 4hr, 6hr) (09/01/2024 2:59 PM REACTOR FUELING SUPERVISOR) Trop T hs <6 <=14 ng/L Comment: Interpretive Data For further hscTnT resources including the diagnostic algorithm and an aid in interpretation, copy and paste this link: https://nrl.testcatalog.org/show/hsTrop Current Interpretive Data last revised 2020. Testing performed by: [facility], [address] [place] [address]., [address] Blood 09/01/2024 2:59 PM REACTOR FUELING SUPERVISOR 09/01/2024 3:03 PM REACTOR FUELING SUPERVISOR us Wil Monteiro MD LAB BLOOD ORDERABLE S Final Result Performing Organization Address [facility] Co de Phone Number TAWNYA [facility] [place] [address] * eGFR (09/01/2024 2:59 PM REACTOR FUELING SUPERVISOR) eGFR >90 >=60 mL/min/1. 73 m2 Comment: [...] was last reviewed 2021. Testing performed by: [address] [address] Blood 09/01/2024 2:59 PM REACTOR FUELING SUPERVISOR 09/01/2024 3:03 PM REACTOR FUELING SUPERVISOR us Wil Monteiro MD LAB BLOOD ORDERABLE S Final Result TAWNYA [address] [facility] Department of [employer] [place], [place] [id number] * (ABNORMAL) Differential, auto (09/01/2024 2:59 PM REACTOR FUELING SUPERVISOR) Neutrophil abs 14.4(H) 1.5 - 6.5 K/cumm Comment:Testing performed by : [address] [address] Imm gran abs 0.2(H) 0.0 - 0.1 K/cumm CERNER Comment:Testing performed by : [address] [address] Lymphocyte abs 1.4 0.8 - 3.3 K/cumm CERNER Comment:Testing performed by : [address] [address] Monocyte abs 0.4 0.2 - 0.8 K/cumm [facility] Comment:Testing performed by : [address] [address] Eosinophil abs 0.0 0.0 - 0.5 K/cumm [facility] Comment:Testing performed by : [address] [address] Basophil abs 0.1 0.0 - 0.1 K/cumm [facility] Comment:Testing performed by : [address] [address] Neutrophil pct 87.3 % [facility] Comment: Interpretive Data Percent cell count reference ranges are not reported, since discordance with absolute values may lead to misinterpretation of CBC data. Current Interpretive Data was last revised on 2017. Testing performed by: [address] [address] Imm gran pct 0.9 % [facility] Comment: Interpretive Data Percent cell count reference ranges are not reported, since discordance with absolute values may lead to misinterpretation of CBC data. Current Interpretive Data was last revised on 2017. Testing performed by: [address] [address] Lymphocyte pct 8.7 % CERNER Comment: Interpretive Data Percent cell count reference ranges are not reported, since discordance with absolute values may lead to misinterpretation of CBC data. Current Interpretive Data was last revised on 2017. Testing performed by: [address] [address] Monocyte pct 2.7 % CERNER Comment: Interpretive Data Percent cell count reference ranges are not reported, since discordance with absolute values may lead to misinterpretation of CBC data. Current Interpretive Data was last revised on 2017. Testing performed by: [address] [address] Eosinophil pct 0.1 % TAWNYA Comment: Interpretive Data Percent cell count reference ranges are not reported, since discordance with absolute values may lead to misinterpretation of CBC data. Current Interpretive Data was last revised on 2017. Testing performed by: [address] [address] Basophil pct 0.3 % TAWNYA Comment: Interpretive Data Percent cell count reference ranges are not reported, since discordance with absolute values may lead to misinterpretation of CBC data. Current Interpretive Data was last revised on 2017. Testing performed by: [address] [address] Blood 09/01/2024 2:59 PM REACTOR FUELING SUPERVISOR 09/01/2024 3:03 PM REACTOR FUELING SUPERVISOR Wil Monteiro MD LAB BLOOD ORDERABLE S Final Result Performing Organization Address City/[facility]/ZIP Co de Phone Number [address] [employer] [place] [address] * Thyroid Function [place] (09/01/2024 2:59 PM REACTOR FUELING SUPERVISOR) Pathologist [facility] [place] TSH 0.80 0.30 - 4.20 mcIUnit/mL Comment:Testing performed by : [address] [address] Blood 09/01/2024 2:59 PM REACTOR FUELING SUPERVISOR 09/01/2024 3:03 PM REACTOR FUELING SUPERVISOR Wil Monteiro MD LAB BLOOD ORDERABLE S Final Result [address] [employer] [place] [address] * (ABNORMAL) CBC with auto differential (09/01/2024 2:59 PM REACTOR FUELING SUPERVISOR) Pathologist [facility] [place] WBC 16.5(H) 3.8 - 9.9 K/cumm Comment:Testing performed by : [address] [address] Hgb 11.3(L) 11.9 - 15.5 g/dL [facility] Comment:Testing performed by : [address] [address] Hct 36.4 35.6 - 45.5 % CERNER Comment:Testing performed by : [address] [address] Plt 465(H) 150 - 400 K/cumm CERNER Comment:Testing performed by : [address] [address] MPV 9.0(L) 9.1 - 12.3 fL [facility] Comment:Testing performed by : [address] [address] RBC 4.54 3.90 - 5.20 M/cumm [facility] Comment:Testing performed by : [address] [address] MCV 80.2(L) 81.3 - 96.4 fL CERNER Comment:Testing performed by : [address] [address] MCH 24.9(L) 27.1 - 33.3 pg [facility] Comment:Testing performed by : [address] [address] MCHC 31.0(L) 32.3 - 35.7 g/dL [facility] Comment:Testing performed by : [address], [address] RDW CV 15.1(H) 11.1 - 14.9 % CERNER Comment:Testing performed by : [address], [address] RDW SD 44.1 35.7 - 48.1 fL [facility] Comment:Testing performed by : [address] [address] NRBC abs 0.00 0.00 - 0.01 K/cumm TAWNYA Comment:Testing performed by : [address] [address] Blood 09/01/2024 2:59 PM REACTOR FUELING SUPERVISOR 09/01/2024 3:03 PM REACTOR FUELING SUPERVISOR Wil Monteiro MD LAB BLOOD ORDERABLE S Final Result Performing Organization Address [facility] de Phone Number [address] [address] * Magnesium (09/01/2024 2:59 PM REACTOR FUELING SUPERVISOR) Pathologist [facility] [place] Magnesium 2.0 1.4 - 2.5 mg/dL Comment:Testing performed by : [address] [address] Blood 09/01/2024 2:59 PM REACTOR FUELING SUPERVISOR 09/01/2024 3:03 PM REACTOR FUELING SUPERVISOR Wil Monteiro MD LAB BLOOD ORDERABLE S Final Result Performing Organization Address [facility] Phone Number [address] [address] * Basic metabolic panel (09/01/2024 2:59 PM REACTOR FUELING SUPERVISOR) [facility] Sodium 140 135 - 145 mmol/L Comment:Testing performed by : [address] [address] Potassium, pl 4.0 3.3 - 4.9 mmol/L [facility] Comment:Testing performed by : [address] [address] Chloride 103 97 - 110 mmol/L [facility] Comment:Testing performed by : [address] [address] CO2 23 22 - 32 mmol/L [facility] Comment:Testing performed by : [address] [address] Anion gap 14 2 - 15 mmol/L [facility] Comment:Testing performed by : [address] [address] BUN 17 6 - 25 mg/dL [facility] Comment:Testing performed by : [address] [address] Creatinine 0.68 0.60 - 1.10 mg/dL [facility] Comment:Testing performed by : [address] [address] Glucose 147 70 - 199 mg/dL [facility] [...] was last revised 2022. Testing performed by: [address] [address] Calcium 9.3 8.5 - 10.3 mg/dL [facility] Comment:Testing performed by : [address] [address] Blood 09/01/2024 2:59 PM REACTOR FUELING SUPERVISOR 09/01/2024 3:03 PM REACTOR FUELING SUPERVISOR us Wil Monteiro MD LAB BLOOD ORDERABLE S Final Result Performing Organization Address City/State/[facility] Co de Phone Number [facility] [address] [facility] Department [place] [address] * POCT hCG, urine (09/01/2024 2:28 PM REACTOR FUELING SUPERVISOR) HCG, ur, POC Negative Negative Lot Number [id number] QC Backgroud Clear Acceptable QC Control Line Acceptable Urine 09/01/2024 2:28 PM REACTOR FUELING SUPERVISOR Wil Monteiro MD POINT OF CARE TEST ORDERABLES Final Result * ECG 12 lead (09/01/2024 1:54 PM REACTOR FUELING SUPERVISOR) Pathologist [facility] [place] Ventricular Rate EKG/Min 153 BPM [facility] Atrial Rate 153 BPM [facility] IN-Interval (MSEC) 116 ms [facility] QRS-Interval (MSEC) 88 ms [facility] QT-Interval (MSEC) 328 ms [facility] QTc 523 ms [facility] P [place] 57 degrees [facility] R [place] 67 degrees [facility] T [place] 44 degrees [facility] Diagnosis Sinus tachycardia Otherwise normal ECG When compared with ECG of 20-AUG-2024 02:26, T wave inversion no longer evident in Anterior leads Confirmed by LAWRENCE YIP M.D. ([id number]) on 09/02/2024 9:10:53 AM [facility] 09/01/2024 1:54 PM REACTOR FUELING SUPERVISOR 09/02/2024 9:10 AM REACTOR FUELING SUPERVISOR us Wil Monteiro MD ECG ORDERABLES Fin al Result [facility] [place] * eGFR (08/22/2024 7:57 AM REACTOR FUELING SUPERVISOR) [facility] eGFR >90 >=60 mL/min/1. 73 m2 Comment: [...] was last reviewed 2021. Testing performed by: [facility], [address] [place] [address]., [address] Blood 08/22/2024 7:57 AM REACTOR FUELING SUPERVISOR 08/22/2024 8:11 AM REACTOR FUELING SUPERVISOR us José Luis Tripp MD LAB BLOOD ORDERABLES Final Re sult [facility] [address] [facility] Department [place] [address] * (ABNORMAL) CBC without differential (08/22/2024 7:57 AM REACTOR FUELING SUPERVISOR) WBC 11.8(H) 3.8 - 9.9 K/cumm Comment:Testing performed by : [address] [address] Hgb 10.4(L) 11.9 - 15.5 g/dL [facility] Comment:Testing performed by : [address] [address] Hct 33.4(L) 35.6 - 45.5 % [facility] Comment:Testing performed by : [address] [address] Plt 450(H) 150 - 400 K/cumm [facility] Comment:Testing performed by : [address] [address] MPV 9.0(L) 9.1 - 12.3 fL [facility] Comment:Testing performed by : [address] [address] RBC 4.12 3.90 - 5.20 M/cumm [facility] Comment:Testing performed by : [address] [address] MCV 81.1(L) 81.3 - 96.4 fL [facility] Comment:Testing performed by : [address] [address] MCH 25.2(L) 27.1 - 33.3 pg [facility] Comment:Testing performed by : [address] [address] MCHC 31.1(L) 32.3 - 35.7 g/dL [facility] Comment:Testing performed by : [address] [address] RDW CV 15.5(H) 11.1 - 14.9 % [facility] [place] Comment:Testing performed by : [address] [address] RDW SD 45.6 35.7 - 48.1 fL [facility] [place] Comment:Testing performed by : [address] [address] NRBC abs 0.00 0.00 - 0.01 K/cumm [facility] [place] Comment:Testing performed by : [address] [address] Blood 08/22/2024 7:57 AM REACTOR FUELING SUPERVISOR 08/22/2024 8:11 AM REACTOR FUELING SUPERVISOR us Jorje Huynh MD LAB BLOOD ORDERABLES Final Result [facility] [address] Department [place] [address] * Basic metabolic panel (08/22/2024 7:57 AM REACTOR FUELING SUPERVISOR) Sodium 137 135 - 145 mmol/L Comment:Testing performed by : [address] [address] Potassium, pl 3.7 3.3 - 4.9 mmol/L [facility] [place] Comment:Testing performed by : [address] [address] Chloride 103 97 - 110 mmol/L [facility] Comment:Testing performed by : [address] [address] CO2 23 22 - 32 mmol/L [facility] Comment:Testing performed by : [address] [address] Anion gap 11 2 - 15 mmol/L [facility] Comment:Testing performed by : [address] [address] BUN 16 6 - 25 mg/dL [facility] [place] Comment:Testing performed by : [address] [address] Creatinine 0.71 0.60 - 1.10 mg/dL [facility] Comment:Testing performed by : [address] [address] Glucose 102 70 - 199 mg/dL [facility] [...] was last revised 2022. Testing performed by: [address] [address] Calcium 9.0 8.5 - 10.3 mg/dL [facility] Comment:Testing performed by : [address] [address] Blood 08/22/2024 7:57 AM REACTOR FUELING SUPERVISOR 08/22/2024 8:11 AM REACTOR FUELING SUPERVISOR us José Luis Tripp MD LAB BLOOD ORDERABLES Final Re sult [facility] [address] [facility] Department of Laboratories [place], [place] [id number] * eGFR (08/21/2024 7:53 AM REACTOR FUELING SUPERVISOR) eGFR >90 >=60 mL/min/1. 73 m2 Comment: [...] was last reviewed 2021. Testing performed by: [address] [address] Blood 08/21/2024 7:53 AM REACTOR FUELING SUPERVISOR 08/21/2024 8:14 AM REACTOR FUELING SUPERVISOR us José Luis Tripp MD LAB BLOOD ORDERABLES Final Re sult [facility] Department [place] [address] * (ABNORMAL) CBC without differential (08/21/2024 7:53 AM REACTOR FUELING SUPERVISOR) WBC 11.9(H) 3.8 - 9.9 K/cumm Comment:Testing performed by : [address] [address] Hgb 11.2(L) 11.9 - 15.5 g/dL [facility] Comment:Testing performed by : [address] [address] Hct 35.2(L) 35.6 - 45.5 % [facility] Comment:Testing performed by : [address] [address] Plt 481(H) 150 - 400 K/cumm [facility] Comment:Testing performed by : [address] [address] MPV 9.0(L) 9.1 - 12.3 fL [facility] Comment:Testing performed by : [address] [address] RBC 4.41 3.90 - 5.20 M/cumm [facility] [place] Comment:Testing performed by : [address] [address] MCV 79.8(L) 81.3 - 96.4 fL [facility] [place] Comment:Testing performed by : [address] [address] MCH 25.4(L) 27.1 - 33.3 pg [facility] [place] Comment:Testing performed by : [address] [address] MCHC 31.8(L) 32.3 - 35.7 g/dL [facility] [place] Comment:Testing performed by : [address] [address] RDW CV 15.6(H) 11.1 - 14.9 % [facility] [place] Comment:Testing performed by : [address] [address] RDW SD 44.8 35.7 - 48.1 fL [facility] [place] Comment:Testing performed by : [address] [address] NRBC abs 0.00 0.00 - 0.01 K/cumm [facility] [place] Comment:Testing performed by : [address] [address] Blood 08/21/2024 7:53 AM REACTOR FUELING SUPERVISOR 08/21/2024 8:15 AM REACTOR FUELING SUPERVISOR Jorje Huynh MD LAB BLOOD ORDERABLES Final Result [facility] Department of Laboratories [place], [place] [id number] * Basic metabolic panel (08/21/2024 7:53 AM REACTOR FUELING SUPERVISOR) Sodium 139 135 - 145 mmol/L Comment:Testing performed by : [address] [address] Potassium, pl 3.5 3.3 - 4.9 mmol/L [facility] [place] Comment:Testing performed by : [address] [address] Chloride 102 97 - 110 mmol/L [facility] [place] Comment:Testing performed by : [address] [address] CO2 23 22 - 32 mmol/L [facility] [place] Comment:Testing performed by : [address] [address] Anion gap 14 2 - 15 mmol/L [facility] Comment:Testing performed by : [address] [address] BUN 11 6 - 25 mg/dL [facility] Comment:Testing performed by : [address] [address] Creatinine 0.70 0.60 - 1.10 mg/dL [facility] Comment:Testing performed by : [address] [address] Glucose 91 70 - 199 mg/dL [facility] [...] was last revised 2022. Testing performed by: [address] [address] Calcium 9.4 8.5 - 10.3 mg/dL [facility] Comment:Testing performed by : [address] [address] Blood 08/21/2024 7:53 AM REACTOR FUELING SUPERVISOR 08/21/2024 8:14 AM REACTOR FUELING SUPERVISOR us José Luis Tripp MD LAB BLOOD ORDERABLES Final Re sult [facility] [address] [facility] Department [place] [address] * IN CLOSED TX TEMPOROMANDIBULAR DISLOCATION 1ST/SBSQ (08/20/2024 1:18 PM REACTOR FUELING SUPERVISOR) Narrative Abhay Velez MD - 08/20/2024 1:18 PM REACTOR FUELING SUPERVISOR Abhay Velez MD 08/20/2024 1:33 PM Orthopedic Injury Treatment - Jaw Dislocation Date/Time: 08/20/2024 1:18 PM Performed by: Abhay Velez MD Authorized by: Abhay Velez MD RN Notified of Procedure: yes Informed consent: Risks, benefits, alternatives discussed and patient/community service representative/guardian agrees and accepts Patient's stated [...] of procedure: Tolerated well, no immediate complications Rehab Agustin REYES IN CLINIC/BEDSIDE ORDERABLES Fi nal Result * Procedural Sedation (08/20/2024 1:18 PM REACTOR FUELING SUPERVISOR) Narrative Abhay Velez MD - 08/20/2024 1:18 PM REACTOR FUELING SUPERVISOR Abhay Velez MD 08/20/2024 1:32 PM Procedural Sedation Date/Time: 08/20/2024 1:18 PM Performed by: Abhay Velez MD Authorized by: Abhay Velez MD [place] Protocol: RN Notified of Procedure: yes Informed consent: Risks, benefits, alternatives discussed and patient/community service representative/guardian agrees and accepts Patient's stated [...] Patient tolerance: Tolerated well, no immediate complications us Rehab Agustin REYES IN CLINIC/BEDSIDE ORDERABLES Fi nal Result * XR Mandible Less than 4 Views (08/20/2024 11:41 AM REACTOR FUELING SUPERVISOR) Anatomical Region Laterality Modality Head and Neck N/A Computed Radiogr aphy 08/20/2024 11:5 5 AM REACTOR FUELING SUPERVISOR Narrative 08/20/2024 12:02 PM REACTOR FUELING SUPERVISOR EXAM DESCRIPTION: XR MANDIBLE LESS THAN 4 [...] Rohan Ramos M.D. LB: EDGARDO Report ID: [id number] Reading Location: [id number] Procedure Note Rohan Ramos MD - 08/20/2024 [...] Rohan Ramos M.D. LB: [place] Report ID: [id number] Reading Location: [id number] us Jorje Huynh MD IMG XR PROCEDURES Final Re sult * Sepsis Lactate w/ Reflex (08/20/2024 8:24 AM REACTOR FUELING SUPERVISOR) [facility] Sepsis Lactate 1.3 0.7 - 2.0 mmol/L Comment:Testing performed by : [address] [address] Blood 08/20/2024 8:24 AM REACTOR FUELING SUPERVISOR 08/20/2024 8:29 AM REACTOR FUELING SUPERVISOR us Erik Westbrook NP LAB BLOOD ORDERABLES Final Resul t Performing Organization Address [facility] de Phone Number [address] [place] [address] * (ABNORMAL) Sepsis Lactate w/ Reflex (08/20/2024 3:25 AM REACTOR FUELING SUPERVISOR) [facility] Sepsis Lactate 2.6(C) 0.7 - 2.0 mmol/L Comment: Critical Result called to and read back by [email or web address], DATE: 2024-08-20 04:23:15 BY: [email or web address] Testing performed by: [address] [address] Blood 08/20/2024 3:25 AM REACTOR FUELING SUPERVISOR 08/20/2024 4:00 AM REACTOR FUELING SUPERVISOR Erik Westbrook NP LAB BLOOD ORDERABLES Final Resul t Performing Organization Address City/[facility] Co de Phone Number [address] [employer] [place] [address] * eGFR (08/20/2024 3:25 AM REACTOR FUELING SUPERVISOR) [facility] eGFR >90 >=60 mL/min/1. 73 m2 Comment: [...] was last reviewed 2021. Testing performed by: [address] [address] Blood 08/20/2024 3:25 AM REACTOR FUELING SUPERVISOR 08/20/2024 4:00 AM REACTOR FUELING SUPERVISOR us José Luis Tripp MD LAB BLOOD ORDERABLES Final Re sult [facility] [address] [facility] Department [place] [address] * (ABNORMAL) CBC without differential (08/20/2024 3:25 AM REACTOR FUELING SUPERVISOR) WBC 12.4(H) 3.8 - 9.9 K/cumm Comment:Testing performed by : [address] [address] Hgb 10.3(L) 11.9 - 15.5 g/dL [facility] [place] Comment:Testing performed by : [address] [address] Hct 32.7(L) 35.6 - 45.5 % [facility] [place] Comment:Testing performed by : [address] [address] Plt 467(H) 150 - 400 K/cumm [facility] [place] Comment:Testing performed by : [address] [address] MPV 9.1 9.1 - 12.3 fL [facility] [place] Comment:Testing performed by : [address] [address] RBC 4.09 3.90 - 5.20 M/cumm [facility] [place] Comment:Testing performed by : [address] [address] MCV 80.0(L) 81.3 - 96.4 fL [facility] Comment:Testing performed by : [address] [address] MCH 25.2(L) 27.1 - 33.3 pg [facility] Comment:Testing performed by : [address] [address] MCHC 31.5(L) 32.3 - 35.7 g/dL [facility] Comment:Testing performed by : [address] [address] RDW CV 15.1(H) 11.1 - 14.9 % [facility] Comment:Testing performed by : [address] [address] RDW SD 43.8 35.7 - 48.1 fL [facility] Comment:Testing performed by : [address] [address] NRBC abs 0.00 0.00 - 0.01 K/cumm [facility] Comment:Testing performed by : [address] [address] Blood 08/20/2024 3:25 AM REACTOR FUELING SUPERVISOR 08/20/2024 4:00 AM REACTOR FUELING SUPERVISOR us José Luis Tripp MD LAB BLOOD ORDERABLES Final Re sult [facility] [place] [address] [facility] Department [place] [address] * (ABNORMAL) Basic metabolic panel (08/20/2024 3:25 AM REACTOR FUELING SUPERVISOR) [facility] Sodium 138 135 - 145 mmol/L Comment:Testing performed by : [address], [place]., [address] Potassium, pl 4.4 3.3 - 4.9 mmol/L [facility] Comment: Hemolyzed; Potassium value may be falsely elevated by as much as 1.0 mmol/L. Suggest redraw and reanalysis. Testing performed by: [address], [place]., [address] Chloride 104 97 - 110 mmol/L [facility] Comment:Testing performed by : [address], [place]., [address] CO2 20(L) 22 - 32 mmol/L [facility] Comment:Testing performed by : [address], [place]., [address] Anion gap 14 2 - 15 mmol/L [facility] Comment:Testing performed by : [address], [place]., [address] BUN 8 6 - 25 mg/dL [facility] Comment:Testing performed by : [address], [place]., [address] Creatinine 0.64 0.60 - 1.10 mg/dL [facility] Comment:Testing performed by : [address] [address] Glucose 179 70 - 199 mg/dL [facility] Comment: Interpretive Data Fasting glucose >/= [...] was last revised 2022. Testing performed by: [address], [place]., [address] Calcium 9.5 8.5 - 10.3 mg/dL [facility] Comment:Testing performed by : [address] [address] Blood 08/20/2024 3:25 AM REACTOR FUELING SUPERVISOR 08/20/2024 4:00 AM REACTOR FUELING SUPERVISOR us José Luis Tripp MD LAB BLOOD ORDERABLES Final Re sult Performing Organization Address City/[facility]/ZIP Co de Phone Number [facility] [address] [facility] Department [place] [address] * ECG 12 lead (08/20/2024 2:26 AM REACTOR FUELING SUPERVISOR) Ventricular Rate EKG/Min 148 BPM [facility] Atrial Rate 148 BPM [facility] IN-Interval (MSEC) 114 ms [facility] QRS-Interval (MSEC) 100 ms [facility] QT-Interval (MSEC) 336 ms [facility] QTc 527 ms [facility] P [place] 51 degrees [facility] R [place] 73 degrees [facility] T [place] 35 degrees [facility] Diagnosis Sinus tachycardia Incomplete right bundle branch block Nonspecific T wave abnormality Abnormal ECG When compared with ECG of 19-AUG-2024 20:25, No significant change was found Confirmed by BELIA CHU M.D. ([id number]) on 08/21/2024 5:20:17 AM [facility] 08/20/2024 2:26 AM REACTOR FUELING SUPERVISOR 08/21/2024 5:20 AM REACTOR FUELING SUPERVISOR us Jorje Huynh MD ECG ORDERABLES Final Resu lt Performing Organization Address City/[facility]/ZIP Co de Phone Number [facility] * (ABNORMAL) Sepsis Lactate w/ Reflex (08/19/2024 8:52 PM REACTOR FUELING SUPERVISOR) Sepsis Lactate 2.4(C) 0.7 - 2.0 mmol/L Comment: Critical Result called to and read back by [email or web address], DATE: 2024-08-19 21:21:33 BY: [email or web address] Testing performed by: [facility], [address] [place] [address]., [address] Blood 08/19/2024 8:52 PM REACTOR FUELING SUPERVISOR 08/19/2024 8:55 PM REACTOR FUELING SUPERVISOR Erik Westbrook NP LAB BLOOD ORDERABLES Final Resul t [facility] [address] [facility] Department [place] [address] * ECG 12 lead (08/19/2024 8:25 PM REACTOR FUELING SUPERVISOR) Ventricular Rate EKG/Min 129 BPM [facility] Atrial Rate 129 BPM [facility] IN-Interval (MSEC) 138 ms [facility] QRS-Interval (MSEC) 100 ms [facility] QT-Interval (MSEC) 316 ms [facility] QTc 462 ms [facility] P [place] 55 degrees [facility] R [place] 49 degrees [facility] T [place] 46 degrees [facility] Diagnosis Sinus tachycardia Possible Left atrial enlargement Incomplete right bundle branch block Borderline ECG When compared with ECG of 21-MAY-2024 14:20, No significant change was found Confirmed by ZANE SORTO M.D. ([id number]) on 08/20/2024 11:59:01 PM [facility] 08/19/2024 8:25 PM REACTOR FUELING SUPERVISOR 08/20/2024 11:59 PM REACTOR FUELING SUPERVISOR Erik Westbrook NP ECG ORDERABLES Final Result Performing Organization Address City/[facility] Co de Phone Number [facility] * eGFR (08/19/2024 8:20 PM REACTOR FUELING SUPERVISOR) eGFR >90 >=60 mL/min/1. 73 m2 Comment: [...] was last reviewed 2021. Testing performed by: [address] [address] Blood 08/19/2024 8:20 PM REACTOR FUELING SUPERVISOR 08/19/2024 8:24 PM REACTOR FUELING SUPERVISOR us Erik Westbrook NP LAB BLOOD ORDERABLES Final Resul t [facility] [address] [facility] Department [place] [address] * (ABNORMAL) Differential, auto (08/19/2024 8:20 PM REACTOR FUELING SUPERVISOR) Neutrophil abs 17.7(H) 1.5 - 6.5 K/cumm Comment:Testing performed by : [address] [address] Imm gran abs 0.1 0.0 - 0.1 K/cumm [facility] Comment:Testing performed by : [address] [address] Lymphocyte abs 0.6(L) 0.8 - 3.3 K/cumm [facility] Comment:Testing performed by : [address] [address] Monocyte abs 0.4 0.2 - 0.8 K/cumm [facility] Comment:Testing performed by : [address] [address] Eosinophil abs 0.0 0.0 - 0.5 K/cumm [facility] Comment:Testing performed by : [address] [address] Basophil abs 0.1 0.0 - 0.1 K/cumm [facility] Comment:Testing performed by : [address] [address] Neutrophil pct 94.0 % [facility] Comment: Interpretive Data Percent cell count reference ranges are not reported, since discordance with absolute values may lead to misinterpretation of CBC data. Current Interpretive Data was last revised on 2017. Testing performed by: [address] [address] Imm gran pct 0.4 % [facility] Comment: Interpretive Data Percent cell count reference ranges are not reported, since discordance with absolute values may lead to misinterpretation of CBC data. Current Interpretive Data was last revised on 2017. Testing performed by: [address] [address] Lymphocyte pct 3.1 % [facility] Comment: Interpretive Data Percent cell count reference ranges are not reported, since discordance with absolute values may lead to misinterpretation of CBC data. Current Interpretive Data was last revised on 2017. Testing performed by: [address] [address] Monocyte pct 2.2 % [facility] Comment: Interpretive Data Percent cell count reference ranges are not reported, since discordance with absolute values may lead to misinterpretation of CBC data. Current Interpretive Data was last revised on 2017. Testing performed by: [address] [address] Eosinophil pct 0.0 % [facility] Comment: Interpretive Data Percent cell count reference ranges are not reported, since discordance with absolute values may lead to misinterpretation of CBC data. Current Interpretive Data was last revised on 2017. Testing performed by: [address] [address] Basophil pct 0.3 % [facility] Comment: Interpretive Data Percent cell count reference ranges are not reported, since discordance with absolute values may lead to misinterpretation of CBC data. Current Interpretive Data was last revised on 2017. Testing performed by: [address] [address] Blood 08/19/2024 8:20 PM REACTOR FUELING SUPERVISOR 08/19/2024 8:24 PM REACTOR FUELING SUPERVISOR us Erik Westbrook NP LAB BLOOD ORDERABLES Final Resul t [facility] [address] [facility] Department [place] [address] * (ABNORMAL) CBC with auto differential (08/19/2024 8:20 PM REACTOR FUELING SUPERVISOR) WBC 18.8(H) 3.8 - 9.9 K/cumm Comment:Testing performed by : [address] [address] Hgb 10.7(L) 11.9 - 15.5 g/dL [facility] Comment:Testing performed by : [address] [address] Hct 33.3(L) 35.6 - 45.5 % [facility] Comment:Testing performed by : [address] [address] Plt 502(H) 150 - 400 K/cumm [facility] Comment:Testing performed by : [address] [address] MPV 8.9(L) 9.1 - 12.3 fL [facility] Comment:Testing performed by : [address] [address] RBC 4.21 3.90 - 5.20 M/cumm [facility] Comment:Testing performed by : [address] [address] MCV 79.1(L) 81.3 - 96.4 fL [facility] Comment:Testing performed by : [address] [address] MCH 25.4(L) 27.1 - 33.3 pg [facility] Comment:Testing performed by : [address] [address] MCHC 32.1(L) 32.3 - 35.7 g/dL [facility] Comment:Testing performed by : [address] [address] RDW CV 14.9 11.1 - 14.9 % [facility] Comment:Testing performed by : [address] [address] RDW SD 43.0 35.7 - 48.1 fL [facility] [place] Comment:Testing performed by : [address] [address] NRBC abs 0.00 0.00 - 0.01 K/cumm [facility] [place] Comment:Testing performed by : [address] [address] Blood 08/19/2024 8:20 PM REACTOR FUELING SUPERVISOR 08/19/2024 8:24 PM REACTOR FUELING SUPERVISOR us Erik Westbrook NP LAB BLOOD ORDERABLES Final Resul t [facility] [address] [facility] Department [place] [address] * Comprehensive metabolic panel (08/19/2024 8:20 PM REACTOR FUELING SUPERVISOR) Sodium 140 135 - 145 mmol/L Comment:Testing performed by : [address] [address] Potassium, pl 3.5 3.3 - 4.9 mmol/L [facility] Comment:Testing performed by : [address] [address] Chloride 104 97 - 110 mmol/L [facility] Comment:Testing performed by : [address] [address] CO2 23 22 - 32 mmol/L [facility] Comment:Testing performed by : [address] [address] Anion gap 13 2 - 15 mmol/L [facility] Comment:Testing performed by : [address] [address] BUN 11 6 - 25 mg/dL [facility] Comment:Testing performed by : [address] [address] [address] Creatinine 0.71 0.60 - 1.10 mg/dL [facility] Comment:Testing performed by : [address] [address] Glucose 136 70 - 199 mg/dL [facility] [...] was last revised 2022. Testing performed by: [address] [address] Calcium 9.2 8.5 - 10.3 mg/dL [facility] Comment:Testing performed by : [address] [address] Bilirubin, total <0.2 0.1 - 1.2 mg/dL [facility] Comment:Testing performed by : [address] [address] Protein, pl 7.5 6.5 - 8.5 g/dL [facility] Comment:Testing performed by : [address] [address] Albumin 4.4 3.5 - 5.0 g/dL [facility] Comment:Testing performed by : [address] [address] Alk phos 74 40 - 130 Units/L [facility] Comment:Testing performed by : [address] [address] ALT 29 7 - 45 Units/L [facility] Comment:Testing performed by : [address] [address] AST 19 10 - 45 Units/L [facility] Comment:Testing performed by : [address] [id number] Blood 08/19/2024 8:20 PM REACTOR FUELING SUPERVISOR 08/19/2024 8:24 PM REACTOR FUELING SUPERVISOR us Erik Westbrook NP LAB BLOOD ORDERABLES Final Resul t [facility] [id number] [facility] Department [place] [address] * Critical Care (08/19/2024 5:13 PM REACTOR FUELING SUPERVISOR) Narrative Erik Westbrook NP - 08/19/2024 5:13 PM REACTOR FUELING SUPERVISOR Erik Westbrook NP 08/19/2024 9:10 PM Critical [...] Final Result from Last 3 Months Insurance [employer] OPEN ACCESS [facility] CHOICE PLUS [facility] CHOICE PLUS Advance Directives For more information, please contact: [phone] * Full Code (Latest Code Status on File) Date Activated Date Inactivated Comments 09/23/2024 7:38 PM 09/24/2024 5:41 PM * Full Code Date Activated Date Inactivated Comments 09/01/2024 7:30 PM 09/05/2024 3:39 PM * Full Code Date Activated Date Inactivated Comments 08/19/2024 9:45 PM 08/22/2024 5:15 PM Care Teams Primer Inspector Relationship Specialty Start Date End Date Shannan Maldonado MD [phone] (work) PCP - General 09/07/19
--- OUTSIDE RECORDS SUMMARY | 2024-09-29 14:13 | XMS_ITS | Clinical Summary ---
Author Organization [facility] Geena Hernandez Extdamian nsion Address [address] [facility] [place] [address] Care Team Providers Care Optics Technical Officer Name Role Phone Shannan Maldonado MD Primary Care Provider [phone] Allergies Active Allergy Reactions Criticality Noted Date [...] CDT - 09/28/2024 10:39 PM CDT Emergency [facility] Emergency Department [address] [place] [id number] Simran Frank MD Allergic reaction, initial encounter (Primary Dx) Discharge Disposition: Discharge to home or self care 09/27/2024 3:49 AM CDT - 09/27/2024 6:10 AM CDT Emergency [facility] Emergency Department [address] [place] [address] Ferdinand Rivera DO Allergic reaction, initial encounter (Primary Dx); Jaw pain Discharge Disposition: Discharge to home or self care 09/23/2024 4:55 PM CDT - 09/24/2024 1:30 PM CDT Hospital Encounter [facility] [address] Med [address] [place] [address] Samuel Bowen MD Winston, Jared Todd, MD Ali, Md Shahin, MD Allergic reaction, initial encounter (Primary Dx) Discharge Disposition: Discharge to home or self care 09/01/2024 2:02 PM COMPENSATION SUPERVISOR - 09/05/2024 11:38 AM COMPENSATION SUPERVISOR Hospital Encounter [address] Surg [address] [place] [address] Wil Monteiro MD Gaspe Mudiyanselage, MD Tobin Vinson, Venkat Robin MD Allergic reaction, initial encounter (Primary Dx) Discharge Disposition: Discharge to home or self care 08/19/2024 4:39 PM COMPENSATION SUPERVISOR - 08/22/2024 1:15 PM COMPENSATION SUPERVISOR Hospital Encounter [facility] 5 [facility] Surg [address] [place] [address] José Luis Tripp MD Winston, Jorje Lester MD Anaphylaxis, initial encounter (Primary Dx) Discharge Disposition: Discharge to home or self care from Last 3 Months Surgical History Surgery Date Site/Laterality Comments [facility] BIOPSY MUSCLE SUPERFICIAL Biopsy Muscle - 2006 (Added by Conv) KNEE SURGERY Knee Surgery - ligament reconstruction 10/2009 (Added by Conv) [facility] RELEASE TARSAL TUNNEL Decompression Tarsal Tunnel Release Left Foot - (Added by TW Conv) [facility] TONSILLECTOMY PRIMARY/SECONDARY <AGE 12 Tonsillectomy - (Added by TW Conv) WISDOM TOOTH EXTRACTION Oral Surgery Tooth Extraction [place] Tooth - (Added by TW Conv) [facility] COLONOSCOPY FLX DX W/LEX J SPEC WHEN PFRMD Colonoscopy - (Added by TW Conv) [facility] DILATION & CURETTAGE DX&/ THER NONOBSTETRIC Dilation [...] drink = 0.6 oz pur e alcohol) [facility] Utilities Answer Date Recorded In the past 12 months has th e electric, gas, oil, or water [employer] threatened to shut off services in your [...] week 09/24/2024 How often do you attend [facility] ch or jew services? Never 09/24/2024 Do you belong to any clubs o r organizations such as oriental orthodox groups, unions, fraternal or athletic groups, or [...] any time in the past 12 m [facility], were you homeless or living in a detention (including now)? No 09/24/2024 Personal Safety Answer Date Recorded Have you ever been in or are you currently in a harmful physical or emotional relationship or is someone making you feel afraid or unsafe? Denies 09/28/2024 Comments No Sex and Gender Information Value Date Recorded Sex Assigned at Not on file Legal Sex Female 1:34 AM COMPENSATION SUPERVISOR Gender Identity Female 07/01/2022 7:31 PM COMPENSATION SUPERVISOR Sexual Orientation Not on file Obstetrics History [...] 09/28/2024 7:57 PM CDT Plan of Treatment Health Maintenance Due [...] VIEWS Critical/Life- Threatening 09/23/2024 8:29 PM CDT VA CLOSED TX STERNOCLAVICULAR DISLC W/MANIPULATION Routine 09/23/2024 [...] CBC WITHOUT DIFFERENTIAL Routine 025 4:27 AM COMPENSATION SUPERVISOR CBC WITHOUT DIFFERENTIAL Routine 05 025 4:25 AM COMPENSATION SUPERVISOR TROPONIN T HIGH-SENSITIVITY 2-HOUR Timed 09/01/2024 5:11 PM COMPENSATION SUPERVISOR URINALYSIS AND REFLEX TO MICROSCOPIC AND CULTURE STAT 09/01/2024 4:58 PM COMPENSATION SUPERVISOR XR CHEST 1 VIEW ED 09/01/2024 3:05 PM COMPENSATION SUPERVISOR EGFR STAT 09/01/2024 2:59 PM COMPENSATION SUPERVISOR DIFFERENTIAL AUTO STAT 09/01/2024 2:5 9 PM COMPENSATION SUPERVISOR MAGNESIUM STAT 09/01/2024 2:59 PM COMPENSATION SUPERVISOR THYROID FUNCTION CASCADE STAT 025 2:59 PM COMPENSATION SUPERVISOR TROPONIN T HIGH-SENSITIVITY SERIES (BASELINE, 2HR, 4HR, 6HR) STAT 09/01/2024 2:59 PM COMPENSATION SUPERVISOR BASIC METABOLIC PANEL STAT 09/01/2024 2:59 PM COMPENSATION SUPERVISOR CBC WITH AUTO DIFFERENTIAL STAT 09/01/2024 2:59 PM COMPENSATION SUPERVISOR POCT HCG, URINE Routine 09/01/2024 2:28 PM COMPENSATION SUPERVISOR ECG 12-LEAD Routine 09/01/2024 1:54 PM COMPENSATION SUPERVISOR EGFR Routine 08/22/2024 7:57 AM COMPENSATION SUPERVISOR CBC WITHOUT DIFFERENTIAL Routine 025 7:57 AM COMPENSATION SUPERVISOR BASIC METABOLIC PANEL Routine 08/22/2024 7:57 AM COMPENSATION SUPERVISOR EGFR Routine 08/21/2024 7:53 AM COMPENSATION SUPERVISOR CBC WITHOUT DIFFERENTIAL Routine 025 7:53 AM COMPENSATION SUPERVISOR BASIC METABOLIC PANEL Routine 08/21/2024 7:53 AM COMPENSATION SUPERVISOR VA CLOSED TX TEMPOROMANDIBULAR DISLOCATION 1ST/SBSQ Routine 08/20/2024 1:18 PM COMPENSATION SUPERVISOR ED MODERATE SEDATION Routine 08/20/2024 1:18 PM COMPENSATION SUPERVISOR XR MANDIBLE LESS THAN 4 VIEWS Critical/Life- Threatening 08/20/2024 11:41 AM COMPENSATION SUPERVISOR SEPSIS LACTATE WITH REFLEX Timed 08/20/2024 8:24 AM COMPENSATION SUPERVISOR EGFR Routine 08/20/2024 3:25 AM COMPENSATION SUPERVISOR CBC WITHOUT DIFFERENTIAL Routine 025 3:25 AM COMPENSATION SUPERVISOR BASIC METABOLIC PANEL Routine 08/20/2024 3:25 AM COMPENSATION SUPERVISOR SEPSIS LACTATE WITH REFLEX Timed 08/20/2024 3:25 AM COMPENSATION SUPERVISOR ECG 12-LEAD Routine 08/20/2024 2:26 AM COMPENSATION SUPERVISOR SEPSIS LACTATE WITH REFLEX STAT 08/19/2024 8:52 PM COMPENSATION SUPERVISOR ECG 12-LEAD STAT 08/19/2024 8:25 PM COMPENSATION SUPERVISOR EGFR STAT 08/19/2024 8:20 PM COMPENSATION SUPERVISOR DIFFERENTIAL AUTO STAT 08/19/2024 8:2 0 PM COMPENSATION SUPERVISOR CBC WITH AUTO DIFFERENTIAL STAT 08/19/2024 8:20 PM COMPENSATION SUPERVISOR COMPREHENSIVE METABOLIC PANEL STAT 08/19/2024 8:20 PM COMPENSATION SUPERVISOR ED CRITICAL CARE Routine 08/19/2024 5:13 PM COMPENSATION SUPERVISOR from Last 3 Months Results * [...] anaphylaxis, took her epi pen 15 min sole rougher. Wheezes throughout upon auscultation with audible wheezing. [...] by Shirley Reardon M.D. 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 Wheezes throughout upon auscultation with audible wheezing. [...] Shirley Reardon M.D. SN: SN Report ID: [id number] Reading Location: [id number] Simran Frank MD IMG XR PROCEDURES Final [...] anaphylaxis, took her epi pen 15 min sole rougher. Wheezes throughout upon auscultation with audible wheezing. [...] Arnold Chahal M.D. 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 Wheezes throughout upon auscultation with audible wheezing. [...] Arnold Chahal M.D. KH: GLADYS Report ID: [id number] Reading Location: [place] [address] Simran Frank MD IMG XR PROCEDURES Final [...] was last reviewed 2021. Testing performed by: [facility], [address] [place] [address], [place]., [address] Blood 09/28/2024 8:10 PM CDT 09/28/2024 8:12 PM CDT us Simran Frank MD LAB BLOOD ORDERABLES Ruthy trivedi Result [facility] [address] [facility] Department [place] [address] * (ABNORMAL) Differential, auto (09/28/2024 8:10 PM CDT) Neutrophil abs 12.9(H) 1.5 - 6.5 K/cumm Comment:Testing performed by : [address] [address] Imm gran abs 0.2(H) 0.0 - 0.1 K/cumm [facility] Comment:Testing performed by : [address] [address] Lymphocyte abs 3.9(H) 0.8 - 3.3 K/cumm [facility] Comment:Testing performed by : [address] [address] Monocyte abs 1.6(H) 0.2 - 0.8 K/cumm [facility] Comment:Testing performed by : [address] [address] Eosinophil abs 0.0 0.0 - 0.5 K/cumm [facility] Comment:Testing performed by : [address] [address] Basophil abs 0.0 0.0 - 0.1 K/cumm [facility] Comment:Testing performed by : [address] [address] Neutrophil pct 69.2 % [facility] Comment: Interpretive Data Percent cell count reference ranges are not reported, since discordance with absolute values may lead to misinterpretation of CBC data. Current Interpretive Data was last revised on 2017. Testing performed by: [address] [address] Imm gran pct 1.1 % [facility] Comment: Interpretive Data Percent cell count reference ranges are not reported, since discordance with absolute values may lead to misinterpretation of CBC data. Current Interpretive Data was last revised on 2017. Testing performed by: [address] [address] Lymphocyte pct 20.7 % [facility] Comment: Interpretive Data Percent cell count reference ranges are not reported, since discordance with absolute values may lead to misinterpretation of CBC data. Current Interpretive Data was last revised on 2017. Testing performed by: [address] [address] Monocyte pct 8.7 % [facility] Comment: Interpretive Data Percent cell count reference ranges are not reported, since discordance with absolute values may lead to misinterpretation of CBC data. Current Interpretive Data was last revised on 2017. Testing performed by: [address] [address] Eosinophil pct 0.1 % [facility] Comment: Interpretive Data Percent cell count reference ranges are not reported, since discordance with absolute values may lead to misinterpretation of CBC data. Current Interpretive Data was last revised on 2017. Testing performed by: [address] [address] Basophil pct 0.2 % [facility] Comment: Interpretive Data Percent cell count reference ranges are not reported, since discordance with absolute values may lead to misinterpretation of CBC data. Current Interpretive Data was last revised on 2017. Testing performed by: [address] [address] Blood 09/28/2024 8:10 PM CDT 09/28/2024 8:11 PM CDT Simran Frank MD LAB BLOOD ORDERABLES Ruthy trivedi Result [facility] [address] [facility] Department [place] [address] * (ABNORMAL) CBC with auto differential (09/28/2024 8:10 PM CDT) WBC 18.6(H) 3.8 - 9.9 K/cumm Comment:Testing performed by : [address] [address] Hgb 11.3(L) 11.9 - 15.5 g/dL [facility] Comment:Testing performed by : [address] [address] Hct 36.0 35.6 - 45.5 % [facility] Comment:Testing performed by : [address] [address] Plt 601(H) 150 - 400 K/cumm [facility] Comment:Testing performed by : [address] [address] MPV 9.1 9.1 - 12.3 fL [facility] Comment:Testing performed by : [address] [address] RBC 4.56 3.90 - 5.20 M/cumm [facility] Comment:Testing performed by : [address] [address] MCV 78.9(L) 81.3 - 96.4 fL [facility] Comment:Testing performed by : [address] [address] MCH 24.8(L) 27.1 - 33.3 pg [facility] Comment:Testing performed by : [address] [address] MCHC 31.4(L) 32.3 - 35.7 g/dL [facility] Comment:Testing performed by : [address] [address] RDW CV 15.2(H) 11.1 - 14.9 % [facility] Comment:Testing performed by : [address], [address] RDW SD 43.6 35.7 - 48.1 fL [facility] Comment:Testing performed by : [address] [address] NRBC abs 0.03(H) 0.00 - 0.01 K/cumm [facility] Comment:Testing performed by : [address] [address] Blood 09/28/2024 8:10 PM CDT 09/28/2024 8:11 PM CDT us Simran Frank MD LAB BLOOD ORDERABLES Ruthy trivedi Result [facility] [address] [facility] Department [place] [address] * (ABNORMAL) Comprehensive metabolic panel (09/28/2024 8:10 PM CDT) Sodium 142 135 - 145 mmol/L Comment:Testing performed by : [address] [address] Potassium, pl 3.2(L) 3.3 - 4.9 mmol/L [facility] Comment:Testing performed by : [address] [address] Chloride 103 97 - 110 mmol/L [facility] Comment:Testing performed by : [address] [address] CO2 23 22 - 32 mmol/L [facility] Comment:Testing performed by : [address] [address] Anion gap 16(H) 2 - 15 mmol/L [facility] Comment:Testing performed by : [address] [address] BUN 18 6 - 25 mg/dL [facility] Comment:Testing performed by : [address] [address] Creatinine 0.80 0.60 - 1.10 mg/dL [facility] Comment:Testing performed by : [address] [address] Glucose 108 70 - 199 mg/dL [facility] [...] was last revised 2022. Testing performed by: [address] [address] Calcium 10.0 8.5 - 10.3 mg/dL [facility] Comment:Testing performed by : [address] [address] Bilirubin, total <0.2 0.1 - 1.2 mg/dL [facility] Comment:Testing performed by : [address] [address] Protein, pl 7.4 6.5 - 8.5 g/dL [facility] Comment:Testing performed by : [address], [place]., [address] Albumin 4.4 3.5 - 5.0 g/dL [facility] Comment:Testing performed by : [address] [address] Alk phos 77 40 - 130 Units/L [facility] Comment:Testing performed by : [address] [address] ALT 28 7 - 45 Units/L [facility] Comment:Testing performed by : [address] [address] AST 22 10 - 45 Units/L [facility] Comment:Testing performed by : [address] [address] Blood 09/28/2024 8:10 PM CDT 09/28/2024 8:12 PM CDT Simran Frank MD LAB BLOOD ORDERABLES Ruthy trivedi Result [facility] [address] [facility] Department of Laboratories [place], [place] [id number] * eGFR (09/27/2024 2:58 AM CDT) eGFR [...] was last reviewed 2021. Testing performed by: [address] [address] Blood 09/27/2024 2:58 AM CDT 09/27/2024 3:03 AM CDT us Ferdinand Rivera DO LAB BLOOD ORDERABLES Final Res ult [facility] Department [place] [address] * (ABNORMAL) Differential, auto (09/27/2024 2:58 AM CDT) Neutrophil abs 13.2(H) 1.5 - 6.5 K/cumm Comment:Testing performed by : [address] [address] Imm gran abs 0.1 0.0 - 0.1 K/cumm [facility] Comment:Testing performed by : [address] [address] Lymphocyte abs 1.7 0.8 - 3.3 K/cumm [facility] Comment:Testing performed by : [address] [address] Monocyte abs 1.0(H) 0.2 - 0.8 K/cumm [facility] Comment:Testing performed by : [address] [address] Eosinophil abs 0.0 0.0 - 0.5 K/cumm [facility] Comment:Testing performed by : [address] [address] Basophil abs 0.0 0.0 - 0.1 K/cumm [facility] Comment:Testing performed by : [address] [address] Neutrophil pct 82.5 % [facility] Comment: Interpretive Data Percent cell count reference ranges are not reported, since discordance with absolute values may lead to misinterpretation of CBC data. Current Interpretive Data was last revised on 2017. Testing performed by: [address] [address] Imm gran pct 0.8 % [facility] Comment: Interpretive Data Percent cell count reference ranges are not reported, since discordance with absolute values may lead to misinterpretation of CBC data. Current Interpretive Data was last revised on 2017. Testing performed by: [address] [address] Lymphocyte pct 10.4 % [facility] Comment: Interpretive Data Percent cell count reference ranges are not reported, since discordance with absolute values may lead to misinterpretation of CBC data. Current Interpretive Data was last revised on 2017. Testing performed by: [address] [address] Monocyte pct 6.2 % [facility] Comment: Interpretive Data Percent cell count reference ranges are not reported, since discordance with absolute values may lead to misinterpretation of CBC data. Current Interpretive Data was last revised on 2017. Testing performed by: [address] [address] Eosinophil pct 0.0 % [facility] Comment: Interpretive Data Percent cell count reference ranges are not reported, since discordance with absolute values may lead to misinterpretation of CBC data. Current Interpretive Data was last revised on 2017. Testing performed by: [address] [address] Basophil pct 0.1 % [facility] Comment: Interpretive Data Percent cell count reference ranges are not reported, since discordance with absolute values may lead to misinterpretation of CBC data. Current Interpretive Data was last revised on 2017. Testing performed by: [address] [address] Blood 09/27/2024 2:58 AM CDT 09/27/2024 3:03 AM CDT us Ferdinand Rivera DO LAB BLOOD ORDERABLES Final Res ult [facility] [address] [facility] Department [place] [address] * (ABNORMAL) CBC with auto differential (09/27/2024 2:58 AM CDT) WBC 15.9(H) 3.8 - 9.9 K/cumm Comment:Testing performed by : [address] [address] Hgb 11.3(L) 11.9 - 15.5 g/dL [facility] Comment:Testing performed by : [address] [address] Hct 36.7 35.6 - 45.5 % [facility] Comment:Testing performed by : [address] [address] Plt 532(H) 150 - 400 K/cumm [facility] Comment:Testing performed by : [address] [address] MPV 9.2 9.1 - 12.3 fL [facility] Comment:Testing performed by : [address] [address] RBC 4.50 3.90 - 5.20 M/cumm [facility] Comment:Testing performed by : [address] [address] MCV 81.6 81.3 - 96.4 fL [facility] Comment:Testing performed by : [address] [address] MCH 25.1(L) 27.1 - 33.3 pg [facility] Comment:Testing performed by : [address] [address] MCHC 30.8(L) 32.3 - 35.7 g/dL [facility] Comment:Testing performed by : [address] [address] RDW CV 15.4(H) 11.1 - 14.9 % [facility] Comment:Testing performed by : [address] [address] RDW SD 45.1 35.7 - 48.1 fL [facility] Comment:Testing performed by : [address] [address] NRBC abs 0.00 0.00 - 0.01 K/cumm [facility] Comment:Testing performed by : [address] [address] Blood 09/27/2024 2:58 AM CDT 09/27/2024 3:03 AM CDT us Ferdinand Rivera DO LAB BLOOD ORDERABLES Final Res ult [facility] [address] Department [place] [address] * Comprehensive metabolic panel (09/27/2024 2:58 AM CDT) Sodium 140 135 - 145 mmol/L Comment:Testing performed by : [address] [address] Potassium, pl 3.8 3.3 - 4.9 mmol/L [facility] Comment:Testing performed by : [address] [address] Chloride 103 97 - 110 mmol/L [facility] Comment:Testing performed by : [address] [address] CO2 23 22 - 32 mmol/L [facility] [place] Comment:Testing performed by : [address] [address] Anion gap 14 2 - 15 mmol/L [facility] Comment:Testing performed by : [address] [address] BUN 11 6 - 25 mg/dL [facility] [place] Comment:Testing performed by : [address] [address] Creatinine 0.66 0.60 - 1.10 mg/dL [facility] Comment:Testing performed by : [address] [address] Glucose 154 70 - 199 mg/dL [facility] Comment: Interpretive [...] was last revised 2022. Testing performed by: [address] [address] Calcium 10.3 8.5 - 10.3 mg/dL [facility] Comment:Testing performed by : [address] [address] Bilirubin, total <0.2 0.1 - 1.2 mg/dL [facility] Comment:Testing performed by : [address] [address] Protein, pl 7.8 6.5 - 8.5 g/dL [facility] Comment:Testing performed by : [address] [address] Albumin 4.5 3.5 - 5.0 g/dL [facility] Comment:Testing performed by : [address] [address] Alk phos 85 40 - 130 Units/L [facility] Comment:Testing performed by : [address] [address] ALT 25 7 - 45 Units/L [facility] Comment:Testing performed by : [address] [address] AST 15 10 - 45 Units/L [facility] Comment:Testing performed by : [address] [address] Blood 09/27/2024 2:58 AM CDT 09/27/2024 3:03 AM CDT us Ferdinand Rivera DO LAB BLOOD ORDERABLES Final Res ult Performing Organization Address [facility] Co de Phone Number [facility] [address] [employer] [place] [address] * eGFR (09/24/2024 3:43 AM CDT) eGFR [...] was last reviewed 2021. Testing performed by: [facility], [address] [place] [address]., [address] Blood 09/24/2024 3:43 AM CDT 09/24/2024 4:47 AM CDT us Dariela Cortez INDUSTRIAL HIRE SALES ASSISTANT LAB BLOOD ORDERABLES Final R esult Performing Organization Address City/[facility]/ZIP Co de Phone Number [facility] Department of [employer] [place] [address] * (ABNORMAL) Differential, auto (09/24/2024 3:43 AM CDT) Neutrophil abs 9.1(H) 1.5 - 6.5 K/cumm Comment:Testing performed by : [address], [place]., [address] Imm gran abs 0.0 0.0 - 0.1 K/cumm [facility] Comment:Testing performed by : [address], [place]., [address] Lymphocyte abs 0.7(L) 0.8 - 3.3 K/cumm [facility] Comment:Testing performed by : [address], [place]., [address] Monocyte abs 0.3 0.2 - 0.8 K/cumm [facility] Comment:Testing performed by : [address] [address] Eosinophil abs 0.0 0.0 - 0.5 K/cumm [facility] Comment:Testing performed by : [address] [address] Basophil abs 0.0 0.0 - 0.1 K/cumm [facility] Comment:Testing performed by : [address] [address] Neutrophil pct 89.5 % [facility] Comment: Interpretive Data Percent cell count reference ranges are not reported, since discordance with absolute values may lead to misinterpretation of CBC data. Current Interpretive Data was last revised on 2017. Testing performed by: [address] [address] Imm gran pct 0.3 % [facility] Comment: Interpretive Data Percent cell count reference ranges are not reported, since discordance with absolute values may lead to misinterpretation of CBC data. Current Interpretive Data was last revised on 2017. Testing performed by: [address] [address] Lymphocyte pct 6.9 % [facility] Comment: Interpretive Data Percent cell count reference ranges are not reported, since discordance with absolute values may lead to misinterpretation of CBC data. Current Interpretive Data was last revised on 2017. Testing performed by: [address] [address] Monocyte pct 3.1 % [facility] Comment: Interpretive Data Percent cell count reference ranges are not reported, since discordance with absolute values may lead to misinterpretation of CBC data. Current Interpretive Data was last revised on 2017. Testing performed by: [address] [address] Eosinophil pct 0.0 % [facility] Comment: Interpretive Data Percent cell count reference ranges are not reported, since discordance with absolute values may lead to misinterpretation of CBC data. Current Interpretive Data was last revised on 2017. Testing performed by: [address] [address] Basophil pct 0.2 % [facility] Comment: Interpretive Data Percent cell count reference ranges are not reported, since discordance with absolute values may lead to misinterpretation of CBC data. Current Interpretive Data was last revised on 2017. Testing performed by: [address] [address] Blood 09/24/2024 3:43 AM CDT 09/24/2024 4:50 AM CDT us Dariela Cortez NP LAB BLOOD ORDERABLES Final R esult [facility] [address] [facility] Department [place] [address] * (ABNORMAL) CBC with auto differential (09/24/2024 3:43 AM CDT) WBC 10.2(H) 3.8 - 9.9 K/cumm Comment:Testing performed by : [address] [address] Hgb 10.5(L) 11.9 - 15.5 g/dL [facility] Comment:Testing performed by : [address] [address] Hct 34.2(L) 35.6 - 45.5 % [facility] Comment:Testing performed by : [address] [address] Plt 418(H) 150 - 400 K/cumm [facility] Comment:Testing performed by : [address] [address] MPV 9.7 9.1 - 12.3 fL [facility] Comment:Testing performed by : [address] [address] RBC 4.17 3.90 - 5.20 M/cumm [facility] Comment:Testing performed by : [address] [address] MCV 82.0 81.3 - 96.4 fL [facility]A Comment:Testing performed by : [address] [address] MCH 25.2(L) 27.1 - 33.3 pg [facility] Comment:Testing performed by : [address] [address] MCHC 30.7(L) 32.3 - 35.7 g/dL [facility]A Comment:Testing performed by : [address] [address] RDW CV 15.6(H) 11.1 - 14.9 % [facility]A Comment:Testing performed by : [address] [address] RDW SD 46.4 35.7 - 48.1 fL [facility] Comment:Testing performed by : [address] [address] NRBC abs 0.00 0.00 - 0.01 K/cumm [facility]A Comment:Testing performed by : [address] [address] Blood 09/24/2024 3:43 AM CDT 09/24/2024 4:50 AM CDT us Dariela Cortez NP LAB BLOOD ORDERABLES Final R esult [facility] [address] [facility] Department [place] [address] * (ABNORMAL) Basic metabolic panel (09/24/2024 3:43 AM CDT) Sodium 138 135 - 145 mmol/L Comment:Testing performed by : [facility], [address] [place] [address], [place]., [address] Potassium, pl 4.2 3.3 - 4.9 mmol/L [facility]A Comment:Testing performed by : [address], [place]., [address] Chloride 107 97 - 110 mmol/L [facility]A Comment:Testing performed by : [address], [place]., [address] CO2 21(L) 22 - 32 mmol/L [facility] Comment:Testing performed by : [address], [place]., [address] Anion gap 10 2 - 15 mmol/L [facility] Comment:Testing performed by : [address], [place]., [address] BUN 10 6 - 25 mg/dL [facility]A Comment:Testing performed by : [address], [place]., [address] Creatinine 0.71 0.60 - 1.10 mg/dL [facility] Comment:Testing performed by : [address], [place]., [address] Glucose 145 70 - 199 mg/dL [facility] Comment: Interpretive Data Fasting glucose >/= 126 [...] was last revised 2022. Testing performed by: [address] [address] Calcium 9.7 8.5 - 10.3 mg/dL [facility]A Comment:Testing performed by : [address], [place]., [address] Blood 09/24/2024 3:43 AM CDT 09/24/2024 4:47 AM CDT us Dariela Cortez INDUSTRIAL HIRE SALES ASSISTANT LAB BLOOD ORDERABLES Final R esult TAW[facility]A [address] [facility] Department [place] [address] * XR Mandible 4 or More Views [...] signed by Arnold GRAHAM: GLADYS Report ID: [id number] Reading Location: [id number] Procedure Note Arnold Chahal MD - 09/23/2024 [...] signed by Arnold GRAHAM: GLADYS Report ID: [id number] Reading Location: [id number] Darian Goode MD IMG XR PROCEDURES Fi nal Result * VA CLOSED TX STERNOCLAVICULAR DISLC W/MANIPULATION (09/23/2024 7:35 [...] signed by Arnold GRAHAM: GLADYS Report ID: [id number] Reading Location: [id number] Procedure Note Arnold Chahal MD - 09/23/2024 [...] signed by Arnold GRAHAM: GLADYS Report ID: [id number] Reading Location: [id number] us Jorje Huynh MD IMG XR PROCEDURES [...] López Mcclellan M.D. MM: MM Report ID: [id number] Reading Location: [place] [address] Procedure Note López Mcclellan MD - 09/23/2024 [...] López Mcclellan M.D. MM: MM Report ID: [id number] Reading Location: [place] [address] Samuel Bowen MD IMG XR PROCEDURES F inal Result * ECG 12 lead (09/23/2024 4:46 PM CDT) Ventricular Rate EKG/Min 146 BPM [facility] Atrial Rate 292 BPM [facility] QRS-Interval (MSEC) 98 ms [facility] QT-Interval (MSEC) 350 ms [facility] QTc 545 ms [facility] R [place] 58 degrees [facility] T [place] 50 degrees [facility] Diagnosis Sinus tachycardia Incomplete right bundle branch block T-wave changes When compared with ECG of 01-SEP-2024 13:54, No significant change Confirmed by SULTAN ZUNIGA M.D. ([id number]) on 09/23/2024 9:49:04 PM [facility] 09/23/2024 4:46 PM CDT 09/23/2024 9:49 PM CDT us Samuel Bowen MD ECG ORDERABLES Fin al Result Performing Organization Address City/[facility]/ZIP Co de Phone Number [facility] Cute Attack [facility] * eGFR (09/23/2024 4:27 PM CDT) [...] was last reviewed 2021. Testing performed by: [facility], [address] [place] [address]., [address] Blood 09/23/2024 4:27 PM CDT 09/23/2024 4:39 PM CDT us Deisy MARQUEZ LAB BLOOD ORDERABLES Final Resu lt Performing Organization Address City/[facility]/ZIP Co de Phone Number [facility]WNYA [address] [facility] Department [place] [address] * (ABNORMAL) Differential, auto (09/23/2024 4:27 PM CDT) Pathologist [facility] Neutrophil abs 7.2(H) 1.5 - 6.5 K/cumm Comment:Testing performed by : [address] [address] Imm gran abs 0.0 0.0 - 0.1 K/cumm TAWNYA Comment:Testing performed by : [address] [address] Lymphocyte abs 2.4 0.8 - 3.3 K/cumm [facility]A Comment:Testing performed by : [address] [address] Monocyte abs 0.8 0.2 - 0.8 K/cumm [facility] Comment:Testing performed by : [address] [address] Eosinophil abs 0.1 0.0 - 0.5 K/cumm [facility] Comment:Testing performed by : [address] [address] Basophil abs 0.1 0.0 - 0.1 K/cumm [facility] Comment:Testing performed by : [address] [address] Neutrophil pct 68.6 % [facility] Comment: Interpretive Data Percent cell count reference ranges are not reported, since discordance with absolute values may lead to misinterpretation of CBC data. Current Interpretive Data was last revised on 2017. Testing performed by: [address] [address] Imm gran pct 0.4 % [facility] Comment: Interpretive Data Percent cell count reference ranges are not reported, since discordance with absolute values may lead to misinterpretation of CBC data. Current Interpretive Data was last revised on 2017. Testing performed by: [address] [address] Lymphocyte pct 22.5 % [facility] Comment: Interpretive Data Percent cell count reference ranges are not reported, since discordance with absolute values may lead to misinterpretation of CBC data. Current Interpretive Data was last revised on 2017. Testing performed by: [address] [address] Monocyte pct 7.1 % [facility] Comment: Interpretive Data Percent cell count reference ranges are not reported, since discordance with absolute values may lead to misinterpretation of CBC data. Current Interpretive Data was last revised on 2017. Testing performed by: [address] [address] Eosinophil pct 0.7 % [facility] Comment: Interpretive Data Percent cell count reference ranges are not reported, since discordance with absolute values may lead to misinterpretation of CBC data. Current Interpretive Data was last revised on 2017. Testing performed by: [address] [address] Basophil pct 0.7 % [facility] Comment: Interpretive Data Percent cell count reference ranges are not reported, since discordance with absolute values may lead to misinterpretation of CBC data. Current Interpretive Data was last revised on 2017. Testing performed by: [address] [address] Blood 09/23/2024 4:27 PM CDT 09/23/2024 4:39 PM CDT us Samuel Bowen MD LAB BLOOD ORDERABLE S Final Result [facility] [address] [facility] Department [place] [address] * (ABNORMAL) CBC with auto differential (09/23/2024 4:27 PM CDT) Pathologist [facility] WBC 10.5(H) 3.8 - 9.9 K/cumm Comment:Testing performed by : [address] [address] Hgb 11.9 11.9 - 15.5 g/dL [facility] Comment:Testing performed by : [address] [address] Hct 40.4 35.6 - 45.5 % [facility]A Comment:Testing performed by : [address] [address] Plt 517(H) 150 - 400 K/cumm [facility] Comment:Testing performed by : [facility], [address] [place] [address]., [address] MPV 9.3 9.1 - 12.3 fL [facility] Comment:Testing performed by : [address] [address] RBC 4.93 3.90 - 5.20 M/cumm [facility] Comment:Testing performed by : [address] [address] MCV 81.9 81.3 - 96.4 fL [facility] Comment:Testing performed by : [address] [address] MCH 24.1(L) 27.1 - 33.3 pg [facility] Comment:Testing performed by : [address] [address] MCHC 29.5(L) 32.3 - 35.7 g/dL [facility] Comment:Testing performed by : [address] [address] RDW CV 15.6(H) 11.1 - 14.9 % [facility] Comment:Testing performed by : [address] [address] RDW SD 46.5 35.7 - 48.1 fL [facility] Comment:Testing performed by : [address] [address] NRBC abs 0.00 0.00 - 0.01 K/cumm [facility]A Comment:Testing performed by : [address] [address] Blood 09/23/2024 4:27 PM CDT 09/23/2024 4:39 PM CDT us Samuel Bowen MD LAB BLOOD ORDERABLE S Final Result [facility] [address] [facility] Department of Laboratories [place], [place] [id number] * Comprehensive metabolic panel (09/23/2024 4:27 PM CDT) [facility] Sodium 141 135 - 145 mmol/L Comment:Testing performed by : [facility], [address] [place] [address], [place]., [address] Potassium, pl 3.3 3.3 - 4.9 mmol/L [facility] Comment:Testing performed by : [address], [place]., [address] Chloride 104 97 - 110 mmol/L [facility] Comment:Testing performed by : [address], [place]., [address] CO2 22 22 - 32 mmol/L [facility] Comment:Testing performed by : [address], [place]., [address] Anion gap 15 2 - 15 mmol/L [facility] Comment:Testing performed by : [address], [place]., [address] BUN 11 6 - 25 mg/dL [facility] Comment:Testing performed by : [address], [place]., [address] Creatinine 0.89 0.60 - 1.10 mg/dL [facility] Comment:Testing performed by : [address], [place]., [address] Glucose 153 70 - 199 mg/dL [facility]A [...] was last revised 2022. Testing performed by: [address] [address] Calcium 9.9 8.5 - 10.3 mg/dL [facility] Comment:Testing performed by : [address], [place]., [address] Bilirubin, total <0.2 0.1 - 1.2 mg/dL [facility] Comment:Testing performed by : [address] [address] Protein, pl 8.0 6.5 - 8.5 g/dL [facility] Comment:Testing performed by : [address] [address] Albumin 4.6 3.5 - 5.0 g/dL [facility] Comment:Testing performed by : [address] [address] Alk phos 84 40 - 130 Units/L [facility] Comment:Testing performed by : [address] [address] ALT 42 7 - 45 Units/L [facility] Comment:Testing performed by : [address] [address] AST 27 10 - 45 Units/L [facility] Comment:Testing performed by : [address] [address] Blood 09/23/2024 4:27 PM CDT 09/23/2024 4:39 PM CDT us Samuel Bowen MD LAB BLOOD ORDERABLE S Final Result [facility] Department [place] [address] * (ABNORMAL) CBC without differential (09/05/2024 4:27 AM COMPENSATION SUPERVISOR) Pathologist [facility] WBC 14.9(H) 3.8 - 9.9 K/cumm Comment:Testing performed by : [address] [address] Hgb 10.8(L) 11.9 - 15.5 g/dL [facility] Comment:Testing performed by : [address] [address] Hct 35.6 35.6 - 45.5 % [facility] Comment:Testing performed by : [address] [address] Plt 414(H) 150 - 400 K/cumm [facility] Comment:Testing performed by : [address] [address] MPV 9.4 9.1 - 12.3 fL [facility] Comment:Testing performed by : [address] [address] RBC 4.35 3.90 - 5.20 M/cumm [facility] Comment:Testing performed by : [address] [address] MCV 81.8 81.3 - 96.4 fL [facility]A Comment:Testing performed by : [address] [address] MCH 24.8(L) 27.1 - 33.3 pg [facility] Comment:Testing performed by : [address] [address] MCHC 30.3(L) 32.3 - 35.7 g/dL [facility] Comment:Testing performed by : [address], [address] RDW CV 15.4(H) 11.1 - 14.9 % [facility]A Comment:Testing performed by : [address] [address] RDW SD 46.2 35.7 - 48.1 fL [facility] Comment:Testing performed by : [address] [address] NRBC abs 0.00 0.00 - 0.01 K/cumm [facility]A Comment:Testing performed by : [address] [address] Blood 09/05/2024 4:27 AM COMPENSATION SUPERVISOR 09/05/2024 5:03 AM COMPENSATION SUPERVISOR us Venkat Rudd MD LAB BLOOD ORDERABLES Fi nal Result [facility] [address] [facility] Department of Laboratories [place], [place] [id number] * (ABNORMAL) CBC without differential (09/04/2024 4:25 AM COMPENSATION SUPERVISOR) [facility] WBC 14.5(H) 3.8 - 9.9 K/cumm Comment:Testing performed by : [address] [address] Hgb 10.5(L) 11.9 - 15.5 g/dL [facility]A Comment:Testing performed by : [address] [address] Hct 35.4(L) 35.6 - 45.5 % [facility]A Comment:Testing performed by : [address] [address] Plt 392 150 - 400 K/cumm [facility] Comment:Testing performed by : [address] [address] MPV 9.2 9.1 - 12.3 fL [facility] Comment:Testing performed by : [address] [address] RBC 4.27 3.90 - 5.20 M/cumm [facility]A Comment:Testing performed by : [address] [address] MCV 82.9 81.3 - 96.4 fL [facility] Comment:Testing performed by : [address] [address] MCH 24.6(L) 27.1 - 33.3 pg [facility] Comment:Testing performed by : [address] [address] MCHC 29.7(L) 32.3 - 35.7 g/dL [facility] Comment:Testing performed by : [address], [address] RDW CV 15.6(H) 11.1 - 14.9 % [facility] Comment:Testing performed by : [address], [address] RDW SD 47.6 35.7 - 48.1 fL [facility] Comment:Testing performed by : [address] [address] NRBC abs 0.00 0.00 - 0.01 K/cumm [facility] Comment:Testing performed by : [address] [address] Blood 09/04/2024 4:25 AM COMPENSATION SUPERVISOR 09/04/2024 4:41 AM COMPENSATION SUPERVISOR us Venkat Rudd MD LAB BLOOD ORDERABLES Fi nal Result Performing Organization Address [facility] de Phone Number TAWNYA [address] [address] * Troponin T high-sensitivity 2-hour (09/01/2024 5:11 PM COMPENSATION SUPERVISOR) Trop T hs <6 <=14 ng/L Comment: Interpretive Data For further hscTnT resources including the diagnostic algorithm and an aid in interpretation, copy and paste this link: https://nrl.testcatalog.org/show/hsTrop Current Interpretive Data last revised 2020. Testing performed by: [address] [address] Trop T hs delta 0 ng/L [facility]WNYA Comment:Testing performed by : [address] [address] Trop T hs interp Insignificant [facility]WNYA Comment:Testing performed by : [address] [address] Blood 09/01/2024 5:11 PM COMPENSATION SUPERVISOR 09/01/2024 5:14 PM COMPENSATION SUPERVISOR us Wil Monteiro MD LAB BLOOD ORDERABLE S Final Result Performing Organization Address [facility] de Phone Number [address] [address] * Urinalysis reflex to microscopic and culture Urine (09/01/2024 4:58 PM COMPENSATION SUPERVISOR) Color, ur Yellow Yellow Comment:Testing performed by : [address] [address] Clarity, ur Clear Clear [facility]WNYA Comment:Testing performed by : [address] [address] Specific gravity, ur 1.015 1.003 - 1.030 [facility]A Comment:Testing performed by : [facility], [address] [place] [address], [place]., [address] pH, urine 7.0 TAWNYA Comment: Interpretive Data U rine pH is affected by diet, medications, systemic acid-base disturbances, and renal tubular function. pH may affect urinary stone formation. For example, urine pH below 6.0 may help reduce the tendency for calcium phosphate stones and pH greater than 6.0 may reduce the tendency for uric acid stone formation. Source: [facility] [employer] Card To Get Approved For Current Interpretive Data was last revised on 2017 Testing performed by: [facility], [address] [place] [address], [place]., [address] Protein, ur ql Negative Negative [facility]A Comment:Testing performed by : [address], [place]., [address] Glucose, ur ql Negative Negative [facility]A Comment:Testing performed by : [address], [place]., [address] Ketones, ur Negative Negative [facility]A Comment:Testing performed by : [address], [place]., [address] Bilirubin, ur Negative Negative [facility]A Comment:Testing performed by : [address], [place]., [address] Blood, ur Negative Negative [facility]A Comment:Testing performed by : [address], [place]., [address] Urobilinogen, ur <2.0 <2.0 mg/dL [facility]A Comment:Testing performed by : [address] [address] Nitrite, ur Negative Negative [facility]A Comment:Testing performed by : [address], [place]., [address] Leukocyte esterase, ur Negative Negative [facility]A Comment:Testing performed by : [address] [address] UA reflex comment Reflex conditions for microscopic UA and culture not met. [facility]WNYA Comment:Testing performed by : [address], [place]., [address] Urine 09/01/2024 4:58 PM COMPENSATION SUPERVISOR 09/01/2024 4:59 PM COMPENSATION SUPERVISOR us Wil Monteiro MD LAB MICROBIOLOGY - GENERAL ORDERABLES Final Result [facility] [address] [facility] Department [place] [address] * XR Chest 1 Vw Portable (09/01/2024 3:05 PM COMPENSATION SUPERVISOR) Anatomical Region Laterality Modality Body, Chest N/A Computed Radiogr aphy 09/01/2024 3:19 PM COMPENSATION SUPERVISOR Narrative 09/01/2024 3:22 PM COMPENSATION SUPERVISOR EXAM DESCRIPTION: XR CHEST 1 VIEW [...] Robi Arreola M.D. MZ: JEANNETTE Report ID: [id number] Reading Location: [id number] Procedure Note Robi Arreola MD - 09/01/2024 [...] Robi Arreola M.D. MZ: MZ Report ID: [id number] Reading Location: [place] [address] us Wil Monteiro MD IMG XR PROCEDURES F inal Result * Troponin T high-sensitivity series (baseline, 2hr, 4hr, 6hr) (09/01/2024 2:59 PM COMPENSATION SUPERVISOR) [facility] Trop T hs <6 <=14 ng/L Comment: Interpretive Data For further hscTnT resources including the diagnostic algorithm and an aid in interpretation, copy and paste this link: https://nrl.testcatalog.org/show/hsTrop Current Interpretive Data last revised 2020. Testing performed by: [facility], [address] [place] [address]., [address] Blood 09/01/2024 2:59 PM COMPENSATION SUPERVISOR 09/01/2024 3:03 PM COMPENSATION SUPERVISOR us Wil Monteiro MD LAB BLOOD ORDERABLE S Final Result [facility]A [address] [facility] Department [place] [address] * eGFR (09/01/2024 2:59 PM COMPENSATION SUPERVISOR) [facility] eGFR >90 >=60 mL/min/1. 73 m2 Comment: [...] was last reviewed 2021. Testing performed by: [address] [address] Blood 09/01/2024 2:59 PM COMPENSATION SUPERVISOR 09/01/2024 3:03 PM COMPENSATION SUPERVISOR us Wil Monteiro MD LAB BLOOD ORDERABLE S Final Result [facility]S [address] [facility] Department of Laboratories [place], [place] [id number] * (ABNORMAL) Differential, auto (09/01/2024 2:59 PM COMPENSATION SUPERVISOR) Pathologist [facility] Neutrophil abs 14.4(H) 1.5 - 6.5 K/cumm Comment:Testing performed by : [address] [address] Imm gran abs 0.2(H) 0.0 - 0.1 K/cumm [facility]S Comment:Testing performed by : [address] [address] Lymphocyte abs 1.4 0.8 - 3.3 K/cumm [facility]S Comment:Testing performed by : [address] [address] Monocyte abs 0.4 0.2 - 0.8 K/cumm [facility] Comment:Testing performed by : [address] [address] Eosinophil abs 0.0 0.0 - 0.5 K/cumm [facility] Comment:Testing performed by : [address] [address] Basophil abs 0.1 0.0 - 0.1 K/cumm [facility] Comment:Testing performed by : [address] [address] Neutrophil pct 87.3 % [facility] Comment: Interpretive Data Percent cell count reference ranges are not reported, since discordance with absolute values may lead to misinterpretation of CBC data. Current Interpretive Data was last revised on 2017. Testing performed by: [address] [address] Imm gran pct 0.9 % [facility] Comment: Interpretive Data Percent cell count reference ranges are not reported, since discordance with absolute values may lead to misinterpretation of CBC data. Current Interpretive Data was last revised on 2017. Testing performed by: [address] [address] Lymphocyte pct 8.7 % [facility] Comment: Interpretive Data Percent cell count reference ranges are not reported, since discordance with absolute values may lead to misinterpretation of CBC data. Current Interpretive Data was last revised on 2017. Testing performed by: [address] [address] Monocyte pct 2.7 % [facility] Comment: Interpretive Data Percent cell count reference ranges are not reported, since discordance with absolute values may lead to misinterpretation of CBC data. Current Interpretive Data was last revised on 2017. Testing performed by: [address] [address] Eosinophil pct 0.1 % [facility] Comment: Interpretive Data Percent cell count reference ranges are not reported, since discordance with absolute values may lead to misinterpretation of CBC data. Current Interpretive Data was last revised on 2017. Testing performed by: [address] [address] Basophil pct 0.3 % [facility]S Comment: Interpretive Data Percent cell count reference ranges are not reported, since discordance with absolute values may lead to misinterpretation of CBC data. Current Interpretive Data was last revised on 2017. Testing performed by: [address] [address] Blood 09/01/2024 2:59 PM COMPENSATION SUPERVISOR 09/01/2024 3:03 PM COMPENSATION SUPERVISOR Wil Monteiro MD LAB BLOOD ORDERABLE S Final Result Performing Organization Address City/[facility]/ZIP Co de Phone Number [address] [employer]asi[employer] Credit [place] [address] * Thyroid Function [place] (09/01/2024 2:59 PM COMPENSATION SUPERVISOR) TSH 0.80 0.30 - 4.20 mcIUnit/mL Comment:Testing performed by : [address] [address] Blood 09/01/2024 2:59 PM COMPENSATION SUPERVISOR 09/01/2024 3:03 PM COMPENSATION SUPERVISOR us Wil Monteiro MD LAB BLOOD ORDERABLE S Final Result Performing Organization Address [facility] Co de Phone Number [address] [address] * (ABNORMAL) CBC with auto differential (09/01/2024 2:59 PM COMPENSATION SUPERVISOR) WBC 16.5(H) 3.8 - 9.9 K/cumm Comment:Testing performed by : [address] [address] Hgb 11.3(L) 11.9 - 15.5 g/dL [facility]S Comment:Testing performed by : [address] [address] Hct 36.4 35.6 - 45.5 % [facility] Comment:Testing performed by : [address] [address] Plt 465(H) 150 - 400 K/cumm [facility]S Comment:Testing performed by : [address] [address] MPV 9.0(L) 9.1 - 12.3 fL [facility] Comment:Testing performed by : [address] [address] RBC 4.54 3.90 - 5.20 M/cumm [facility] Comment:Testing performed by : [address] [address] MCV 80.2(L) 81.3 - 96.4 fL [facility]A Comment:Testing performed by : [address] [address] MCH 24.9(L) 27.1 - 33.3 pg [facility]ILLS Comment:Testing performed by : [address] [address] MCHC 31.0(L) 32.3 - 35.7 g/dL [facility] Comment:Testing performed by : [address] [address] RDW CV 15.1(H) 11.1 - 14.9 % [facility] Comment:Testing performed by : [address] [address] RDW SD 44.1 35.7 - 48.1 fL [facility] Comment:Testing performed by : [address] [address] NRBC abs 0.00 0.00 - 0.01 K/cumm [facility] Comment:Testing performed by : [address] [address] Blood 09/01/2024 2:59 PM COMPENSATION SUPERVISOR 09/01/2024 3:03 PM COMPENSATION SUPERVISOR us Wil Monteiro MD LAB BLOOD ORDERABLE S Final Result [facility] [address] [facility] Department [place] [address] * Magnesium (09/01/2024 2:59 PM COMPENSATION SUPERVISOR) Pathologist [facility] Magnesium 2.0 1.4 - 2.5 mg/dL Comment:Testing performed by : [address] [address] Blood 09/01/2024 2:59 PM COMPENSATION SUPERVISOR 09/01/2024 3:03 PM COMPENSATION SUPERVISOR us Wil Monteiro MD LAB BLOOD ORDERABLE S Final Result [facility] [address] [facility] Department [place] [address] * Basic metabolic panel (09/01/2024 2:59 PM COMPENSATION SUPERVISOR) Pathologist [facility] Sodium 140 135 - 145 mmol/L Comment:Testing performed by : [address] [address] Potassium, pl 4.0 3.3 - 4.9 mmol/L TAWNYA Comment:Testing performed by : [address] [address] Chloride 103 97 - 110 mmol/L TAWNYA Comment:Testing performed by : [address] [address] CO2 23 22 - 32 mmol/L [facility]A Comment:Testing performed by : [address] [address] Anion gap 14 2 - 15 mmol/L TAWNYA Comment:Testing performed by : [address] [address] BUN 17 6 - 25 mg/dL [facility]A Comment:Testing performed by : [address] [address] Creatinine 0.68 0.60 - 1.10 mg/dL [facility]A Comment:Testing performed by : [address] [address] Glucose 147 70 - 199 mg/dL TAWNYA [...] was last revised 2022. Testing performed by: [facility], [address] [place] [address]., [address] Calcium 9.3 8.5 - 10.3 mg/dL TAWNYA Comment:Testing performed by : [address] [address] Blood 09/01/2024 2:59 PM COMPENSATION SUPERVISOR 09/01/2024 3:03 PM COMPENSATION SUPERVISOR Wil Monteiro MD LAB BLOOD ORDERABLE S Final Result Performing Organization Address City/State/[facility] Co de Phone Number TAWNYA [address] [facility] Department of Laboratories [place], [place] [id number] * POCT hCG, urine (09/01/2024 2:28 PM COMPENSATION SUPERVISOR) [facility] HCG, ur, POC Negative Negative Lot Number [id number] QC Backgroud Clear Acceptable QC Control Line Acceptable Urine 09/01/2024 2:28 PM COMPENSATION SUPERVISOR Wil Monteiro MD POINT OF CARE TEST ORDERABLES Final Result * ECG 12 lead (09/01/2024 1:54 PM COMPENSATION SUPERVISOR) [facility] Ventricular Rate EKG/Min 153 BPM [facility] Atrial Rate 153 BPM [facility] VA-Interval (MSEC) 116 ms [facility] QRS-Interval (MSEC) 88 ms [facility] QT-Interval (MSEC) 328 ms [facility] QTc 523 ms [facility] P [place] 57 degrees [facility] R [place] 67 degrees [facility] T [place] 44 degrees [facility] Diagnosis Sinus tachycardia Otherwise normal ECG When compared with ECG of 18-B-2025 02:26, T wave inversion no longer evident in Anterior leads Confirmed by LAWRENCE YIP M.D. ([id number]) on 09/02/2024 9:10:53 AM [facility] 09/01/2024 1:54 PM COMPENSATION SUPERVISOR 09/02/2024 9:10 AM COMPENSATION SUPERVISOR us Wil Monteiro MD ECG ORDERABLES Fin al Result [facility] Cute Attack [facility] * eGFR (08/22/2024 7:57 AM COMPENSATION SUPERVISOR) eGFR >90 >=60 mL/min/1. 73 m2 [...] was last reviewed 2021. Testing performed by: [facility], [address] [place] [address]., [address] Blood 08/22/2024 7:57 AM COMPENSATION SUPERVISOR 08/22/2024 8:11 AM COMPENSATION SUPERVISOR us José Luis Tripp MD LAB BLOOD ORDERABLES Final Re sult TAWNYA [address] [facility] Department [place] [address] * (ABNORMAL) CBC without differential (08/22/2024 7:57 AM COMPENSATION SUPERVISOR) [facility] WBC 11.8(H) 3.8 - 9.9 K/cumm Comment:Testing performed by : [address] [address] Hgb 10.4(L) 11.9 - 15.5 g/dL TAWNYA Comment:Testing performed by : [address] [address] Hct 33.4(L) 35.6 - 45.5 % TAW[facility]A Comment:Testing performed by : [address], [address] Plt 450(H) 150 - 400 K/cumm TAWNYA Comment:Testing performed by : [address] [address] MPV 9.0(L) 9.1 - 12.3 fL [facility]A Comment:Testing performed by : [address], [address] RBC 4.12 3.90 - 5.20 M/cumm [facility]WNYA Comment:Testing performed by : [address] [address] MCV 81.1(L) 81.3 - 96.4 fL [facility]A Comment:Testing performed by : [address] [address] MCH 25.2(L) 27.1 - 33.3 pg [facility]A Comment:Testing performed by : [address], [address] MCHC 31.1(L) 32.3 - 35.7 g/dL [facility]A Comment:Testing performed by : [address], [address] RDW CV 15.5(H) 11.1 - 14.9 % [facility]A Comment:Testing performed by : [address], [address] RDW SD 45.6 35.7 - 48.1 fL [facility] Comment:Testing performed by : [address], [address] NRBC abs 0.00 0.00 - 0.01 K/cumm [facility]A Comment:Testing performed by : [address] [address] Blood 08/22/2024 7:57 AM COMPENSATION SUPERVISOR 08/22/2024 8:11 AM COMPENSATION SUPERVISOR Jorje Huynh MD LAB BLOOD ORDERABLES Final Result [facility] [address] [facility] Department [place] [address] * Basic metabolic panel (08/22/2024 7:57 AM COMPENSATION SUPERVISOR) Sodium 137 135 - 145 mmol/L Comment:Testing performed by : [address] [address] Potassium, pl 3.7 3.3 - 4.9 mmol/L [facility]A Comment:Testing performed by : [address] [address] Chloride 103 97 - 110 mmol/L [facility]A Comment:Testing performed by : [address] [address] CO2 23 22 - 32 mmol/L [facility] Comment:Testing performed by : [address] [address] Anion gap 11 2 - 15 mmol/L [facility] Comment:Testing performed by : [address] [address] BUN 16 6 - 25 mg/dL [facility] Comment:Testing performed by : [address] [address] Creatinine 0.71 0.60 - 1.10 mg/dL [facility] Comment:Testing performed by : [address] [address] Glucose 102 70 - 199 mg/dL TAWNYA [...] was last revised 2022. Testing performed by: [facility], [address] [place] [address]., [address] Calcium 9.0 8.5 - 10.3 mg/dL [facility] [place]S Comment:Testing performed by : [address] [address] Blood 08/22/2024 7:57 AM COMPENSATION SUPERVISOR 08/22/2024 8:11 AM COMPENSATION SUPERVISOR us José Luis Tripp MD LAB BLOOD ORDERABLES Final Re sult [facility] [address] [facility] Department [place] [address] * eGFR (08/21/2024 7:53 AM COMPENSATION SUPERVISOR) eGFR >90 >=60 mL/min/1. 73 m2 [...] was last reviewed 2021. Testing performed by: [address] [address] Blood 08/21/2024 7:53 AM COMPENSATION SUPERVISOR 08/21/2024 8:14 AM COMPENSATION SUPERVISOR us José Luis Tripp MD LAB BLOOD ORDERABLES Final Re sult TAWNYA [address] [facility] Department [place] [address] * (ABNORMAL) CBC without differential (08/21/2024 7:53 AM COMPENSATION SUPERVISOR) WBC 11.9(H) 3.8 - 9.9 K/cumm Comment:Testing performed by : [address] [address] Hgb 11.2(L) 11.9 - 15.5 g/dL [facility]A Comment:Testing performed by : [address] [address] Hct 35.2(L) 35.6 - 45.5 % [facility]A Comment:Testing performed by : [address] [address] Plt 481(H) 150 - 400 K/cumm TAWNYA Comment:Testing performed by : [address] [address] MPV 9.0(L) 9.1 - 12.3 fL [facility]A Comment:Testing performed by : [address] [address] RBC 4.41 3.90 - 5.20 M/cumm [facility]A Comment:Testing performed by : [address] [address] MCV 79.8(L) 81.3 - 96.4 fL [facility]A Comment:Testing performed by : [address] [address] MCH 25.4(L) 27.1 - 33.3 pg [facility] [place]S Comment:Testing performed by : [address] [address] MCHC 31.8(L) 32.3 - 35.7 g/dL [facility]A Comment:Testing performed by : [address] [address] RDW CV 15.6(H) 11.1 - 14.9 % [facility] [place]S Comment:Testing performed by : [address] [address] RDW SD 44.8 35.7 - 48.1 fL [facility] [place] Comment:Testing performed by : [address] [address] NRBC abs 0.00 0.00 - 0.01 K/cumm [facility] [place] Comment:Testing performed by : [address] [address] Blood 08/21/2024 7:53 AM COMPENSATION SUPERVISOR 08/21/2024 8:15 AM COMPENSATION SUPERVISOR us Jorje Huynh MD LAB BLOOD ORDERABLES Final Result Performing Organization Address City/State/[facility] Co de Phone Number TAWNYA [address] [facility] Department [place] [address] * Basic metabolic panel (08/21/2024 7:53 AM COMPENSATION SUPERVISOR) Sodium 139 135 - 145 mmol/L Comment:Testing performed by : [address] [address] Potassium, pl 3.5 3.3 - 4.9 mmol/L [facility] [place] Comment:Testing performed by : [address] [address] Chloride 102 97 - 110 mmol/L [facility] [place] Comment:Testing performed by : [address] [address] CO2 23 22 - 32 mmol/L [facility] [place] Comment:Testing performed by : [address] [address] Anion gap 14 2 - 15 mmol/L [facility] [place] Comment:Testing performed by : [address] [address] BUN 11 6 - 25 mg/dL [facility] [place] Comment:Testing performed by : [address] [address] Creatinine 0.70 0.60 - 1.10 mg/dL [facility] Comment:Testing performed by : [address] [address] Glucose 91 70 - 199 mg/dL [facility] Comment: Interpretive Data Fasting glucose >/= 126 [...] was last revised 2022. Testing performed by: [address] [address] Calcium 9.4 8.5 - 10.3 mg/dL [facility] Comment:Testing performed by : [address] [address] Blood 08/21/2024 7:53 AM COMPENSATION SUPERVISOR 08/21/2024 8:14 AM COMPENSATION SUPERVISOR us José Luis Tripp MD LAB BLOOD ORDERABLES Final Re sult [facility] [address] [facility] Department of Laboratories [place], [place] [id number] * VA CLOSED [place] TEMPOROMANDIBULAR DISLOCATION 1ST/SBSQ (08/20/2024 1:18 PM COMPENSATION SUPERVISOR) Narrative Abhay Velez MD - 08/20/2024 1:18 PM COMPENSATION SUPERVISOR Abhay Velez MD 08/20/2024 1:33 PM Orthopedic Injury Treatment - Jaw Dislocation Date/Time: 08/20/2024 1:18 PM Performed by: Abhay Velez MD Authorized by: Abhay Velez MD RN Notified of Procedure: yes Informed consent: Risks, benefits, alternatives discussed and patient/safety representative/guardian agrees and accepts Patient's stated name/ [...] Result * Procedural Sedation (08/20/2024 1:18 PM COMPENSATION SUPERVISOR) Narrative Abhay Velez MD - 08/20/2024 1:18 PM COMPENSATION SUPERVISOR Abhay Velez MD 08/20/2024 1:32 PM Procedural Sedation Date/Time: 08/20/2024 1:18 PM Performed by: Abhay Velez MD Authorized by: Abhay Velez MD [place] Protocol: RN Notified of Procedure: yes Informed consent: Risks, benefits, alternatives discussed and patient/safety representative/guardian agrees and accepts Patient's stated name/ [...] Less than 4 Views (08/20/2024 11:41 AM COMPENSATION SUPERVISOR) Anatomical Region Laterality Modality Head and Neck N/A Computed Radiogr aphy 08/20/2024 11:5 5 AM COMPENSATION SUPERVISOR Narrative 08/20/2024 12:02 PM COMPENSATION SUPERVISOR EXAM DESCRIPTION: XR MANDIBLE LESS THAN [...] Rohan Ramos M.D. LB: LB Report ID: [id number] Reading Location: [id number] Procedure Note Rohan Ramos MD - 08/20/2024 [...] Rohan Ramos M.D. LB: LB Report ID: [id number] Reading Location: [id number] Jorje Huynh MD IMG XR PROCEDURES Final Re sult * Sepsis Lactate w/ Reflex (08/20/2024 8:24 AM COMPENSATION SUPERVISOR) Pathologist [facility] Sepsis Lactate 1.3 0.7 - 2.0 mmol/L Comment:Testing performed by : [address] [address] Blood 08/20/2024 8:24 AM COMPENSATION SUPERVISOR 08/20/2024 8:29 AM COMPENSATION SUPERVISOR Erik Westbrook INDUSTRIAL HIRE SALES ASSISTANT LAB BLOOD ORDERABLES Final Resul t Performing Organization Address [facility] Co de Phone Number TAWNYA [address] [employer] [place] [address] * (ABNORMAL) Sepsis Lactate w/ Reflex (08/20/2024 3:25 AM COMPENSATION SUPERVISOR) Pathologist [facility] Sepsis Lactate 2.6(C) 0.7 - 2.0 mmol/L Comment: Critical Result called to and read back by [email or web address], DATE: 2024-08-20 04:23:15 BY: [email or web address] Testing performed by: [address] [address] Blood 08/20/2024 3:25 AM COMPENSATION SUPERVISOR 08/20/2024 4:00 AM COMPENSATION SUPERVISOR Erik Westbrook INDUSTRIAL HIRE SALES ASSISTANT LAB BLOOD ORDERABLES Final Resul t Performing Organization Address [facility] Co de Phone Number YA[address] [place] [address] * eGFR (08/20/2024 3:25 AM COMPENSATION SUPERVISOR) Pathologist [facility] eGFR >90 >=60 mL/min/1. 73 m2 [...] was last reviewed 2021. Testing performed by: [address] [address] Blood 08/20/2024 3:25 AM COMPENSATION SUPERVISOR 08/20/2024 4:00 AM COMPENSATION SUPERVISOR us José Luis Tripp MD LAB BLOOD ORDERABLES Final Re sult TAWNYA [facility] Department of Laboratories [place], [place] [id number] * (ABNORMAL) CBC without differential (08/20/2024 3:25 AM COMPENSATION SUPERVISOR) WBC 12.4(H) 3.8 - 9.9 K/cumm Comment:Testing performed by : [address] [address] Hgb 10.3(L) 11.9 - 15.5 g/dL [facility] [place] Comment:Testing performed by : [address] [address] Hct 32.7(L) 35.6 - 45.5 % [facility] [place] Comment:Testing performed by : [address] [address] Plt 467(H) 150 - 400 K/cumm [facility] [place] Comment:Testing performed by : [address] [address] MPV 9.1 9.1 - 12.3 fL [facility] [place] Comment:Testing performed by : [address] [address] RBC 4.09 3.90 - 5.20 M/cumm [facility] [place] Comment:Testing performed by : [address] [address] MCV 80.0(L) 81.3 - 96.4 fL [facility] [place] Comment:Testing performed by : [address] [address] MCH 25.2(L) 27.1 - 33.3 pg [facility] [place] Comment:Testing performed by : [address] [address] MCHC 31.5(L) 32.3 - 35.7 g/dL [facility] [place] Comment:Testing performed by : [address] [address] RDW CV 15.1(H) 11.1 - 14.9 % [facility] [place] Comment:Testing performed by : [address] [address] RDW SD 43.8 35.7 - 48.1 fL [facility] [place] Comment:Testing performed by : [address] [address] NRBC abs 0.00 0.00 - 0.01 K/cumm TAWNYA Comment:Testing performed by : [address] [address] Blood 08/20/2024 3:25 AM COMPENSATION SUPERVISOR 08/20/2024 4:00 AM COMPENSATION SUPERVISOR us José Luis Tripp MD LAB BLOOD ORDERABLES Final Re sult TAWNYA [address] [facility] Department of Laboratories [place], [place] [id number] * (ABNORMAL) Basic metabolic panel (08/20/2024 3:25 AM COMPENSATION SUPERVISOR) Pathologist [facility] Sodium 138 135 - 145 mmol/L Comment:Testing performed by : [address] [address] Potassium, pl 4.4 3.3 - 4.9 mmol/L [facility] [place] Comment: Hemolyzed; Potassium value may be falsely elevated by as much as 1.0 mmol/L. Suggest redraw and reanalysis. Testing performed by: [address] [address] Chloride 104 97 - 110 mmol/L [facility]A Comment:Testing performed by : [address] [address] CO2 20(L) 22 - 32 mmol/L [facility] Comment:Testing performed by : [address] [address] Anion gap 14 2 - 15 mmol/L [facility] Comment:Testing performed by : [address] [address] BUN 8 6 - 25 mg/dL [facility] Comment:Testing performed by : [address] [address] Creatinine 0.64 0.60 - 1.10 mg/dL [facility]A Comment:Testing performed by : [address] [address] Glucose 179 70 - 199 mg/dL TAWNYA [...] was last revised 2022. Testing performed by: [address] [address] Calcium 9.5 8.5 - 10.3 mg/dL [facility]A Comment:Testing performed by : [address] [address] Blood 08/20/2024 3:25 AM COMPENSATION SUPERVISOR 08/20/2024 4:00 AM COMPENSATION SUPERVISOR us José Luis Tripp MD LAB BLOOD ORDERABLES Final Re sult TAWNYA [address] [facility] Department of Laboratories [place], [place] [phone] * ECG 12 lead (08/20/2024 2:26 AM COMPENSATION SUPERVISOR) [facility] Ventricular Rate EKG/Min 148 BPM [facility] Atrial Rate 148 BPM [facility] VA-Interval (MSEC) 114 ms [facility] QRS-Interval (MSEC) 100 ms [facility] QT-Interval (MSEC) 336 ms [facility] QTc 527 ms [facility] P [place] 51 degrees [facility] R [place] 73 degrees [facility] T [place] 35 degrees [facility] Diagnosis Sinus tachycardia Incomplete right bundle branch block Nonspecific T wave abnormality Abnormal ECG When compared with ECG of 19-AUG-2024 20:25, No significant change was found Confirmed by BELIA CHU M.D. ([id number]) on 08/21/2024 5:20:17 AM [facility] 08/20/2024 2:2 6 AM COMPENSATION SUPERVISOR 08/21/2024 5:20 AM COMPENSATION SUPERVISOR us Jorje Huynh MD ECG ORDERABLES Final Resu lt [facility] * (ABNORMAL) Sepsis Lactate w/ Reflex (08/19/2024 8:52 PM COMPENSATION SUPERVISOR) [facility] Sepsis Lactate 2.4(C) 0.7 - 2.0 mmol/L Comment: Critical Result called to and read back by [email or web address], DATE: 2024-08-19 21:21:33 BY: [email or web address] Testing performed by: [facility], [address] [place] [address]., [address] Blood 08/19/2024 8:52 PM COMPENSATION SUPERVISOR 08/19/2024 8:55 PM COMPENSATION SUPERVISOR us Erik Westbrook NP LAB BLOOD ORDERABLES Final Resul t TAWNYA [address] [facility] Department [place] [address] * ECG 12 lead (08/19/2024 8:25 PM COMPENSATION SUPERVISOR) [facility] Ventricular Rate EKG/Min 129 BPM [facility] Atrial Rate 129 BPM [facility] VA-Interval (MSEC) 138 ms [facility] QRS-Interval (MSEC) 100 ms [facility] QT-Interval (MSEC) 316 ms [facility] QTc 462 ms [facility] P [place] 55 degrees [facility] R [place] 49 degrees [facility] T [place] 46 degrees [facility] Diagnosis Sinus tachycardia Possible Left atrial enlargement Incomplete right bundle branch block Borderline ECG When compared with ECG of 21-MAY-2024 14:20, No significant change was found Confirmed by ZANE SORTO M.D. ([id number]) on 08/20/2024 11:59:01 PM [facility] 08/19/2024 8:25 PM COMPENSATION SUPERVISOR 08/20/2024 11:59 PM COMPENSATION SUPERVISOR us Erik Westbrook NP ECG ORDERABLES Final Result [facility] * eGFR (08/19/2024 8:20 PM COMPENSATION SUPERVISOR) Pathologist [facility] eGFR >90 >=60 mL/min/1. 73 m2 [...] was last reviewed 2021. Testing performed by: [facility], [address] [place] [address]., [address] Blood 08/19/2024 8:20 PM COMPENSATION SUPERVISOR 08/19/2024 8:24 PM COMPENSATION SUPERVISOR us Erik Westbrook NP LAB BLOOD ORDERABLES Final Resul t [facility]A [address] [facility] Department [place] [address] * (ABNORMAL) Differential, auto (08/19/2024 8:20 PM COMPENSATION SUPERVISOR) Neutrophil abs 17.7(H) 1.5 - 6.5 K/cumm Comment:Testing performed by : [address] [address] Imm gran abs 0.1 0.0 - 0.1 K/cumm TAWNYA Comment:Testing performed by : [address] [address] Lymphocyte abs 0.6(L) 0.8 - 3.3 K/cumm TAWNYA Comment:Testing performed by : [address] [address] Monocyte abs 0.4 0.2 - 0.8 K/cumm [facility]A Comment:Testing performed by : [address] [address] Eosinophil abs 0.0 0.0 - 0.5 K/cumm [facility]A Comment:Testing performed by : [address] [address] Basophil abs 0.1 0.0 - 0.1 K/cumm TAW[facility]A Comment:Testing performed by : [address] [address] Neutrophil pct 94.0 % TAWNYA Comment: Interpretive Data Percent cell count reference ranges are not reported, since discordance with absolute values may lead to misinterpretation of CBC data. Current Interpretive Data was last revised on 2017. Testing performed by: [address] [address] Imm gran pct 0.4 % TAWNYA Comment: Interpretive Data Percent cell count reference ranges are not reported, since discordance with absolute values may lead to misinterpretation of CBC data. Current Interpretive Data was last revised on 2017. Testing performed by: [address] [address] Lymphocyte pct 3.1 % [facility] Comment: Interpretive Data Percent cell count reference ranges are not reported, since discordance with absolute values may lead to misinterpretation of CBC data. Current Interpretive Data was last revised on 2017. Testing performed by: [address] [address] Monocyte pct 2.2 % [facility] Comment: Interpretive Data Percent cell count reference ranges are not reported, since discordance with absolute values may lead to misinterpretation of CBC data. Current Interpretive Data was last revised on 2017. Testing performed by: [address] [address] Eosinophil pct 0.0 % [facility] Comment: Interpretive Data Percent cell count reference ranges are not reported, since discordance with absolute values may lead to misinterpretation of CBC data. Current Interpretive Data was last revised on 2017. Testing performed by: [address] [address] Basophil pct 0.3 % [facility] Comment: Interpretive Data Percent cell count reference ranges are not reported, since discordance with absolute values may lead to misinterpretation of CBC data. Current Interpretive Data was last revised on 2017. Testing performed by: [address] [address] Blood 08/19/2024 8:20 PM COMPENSATION SUPERVISOR 08/19/2024 8:24 PM COMPENSATION SUPERVISOR us Erik Westbrook NP LAB BLOOD ORDERABLES Final Resul t TAWNYA [address] [facility] Department [place] [address] * (ABNORMAL) CBC with auto differential (08/19/2024 8:20 PM COMPENSATION SUPERVISOR) WBC 18.8(H) 3.8 - 9.9 K/cumm Comment:Testing performed by : [address] [address] Hgb 10.7(L) 11.9 - 15.5 g/dL TAW[facility]A Comment:Testing performed by : [address] [address] Hct 33.3(L) 35.6 - 45.5 % [facility]A Comment:Testing performed by : [address] [address] Plt 502(H) 150 - 400 K/cumm TAWNYA Comment:Testing performed by : [address] [address] MPV 8.9(L) 9.1 - 12.3 fL [facility]A Comment:Testing performed by : [address] [address] RBC 4.21 3.90 - 5.20 M/cumm TAW[facility]A Comment:Testing performed by : [address] [address] MCV 79.1(L) 81.3 - 96.4 fL [facility]A Comment:Testing performed by : [address] [address] MCH 25.4(L) 27.1 - 33.3 pg [facility]A Comment:Testing performed by : [address] [address] MCHC 32.1(L) 32.3 - 35.7 g/dL [facility] Comment:Testing performed by : [address], [address] RDW CV 14.9 11.1 - 14.9 % [facility] Comment:Testing performed by : [address] [address] RDW SD 43.0 35.7 - 48.1 fL [facility] Comment:Testing performed by : [address] [address] NRBC abs 0.00 0.00 - 0.01 K/cumm [facility]A Comment:Testing performed by : [address] [address] Blood 08/19/2024 8:20 PM COMPENSATION SUPERVISOR 08/19/2024 8:24 PM COMPENSATION SUPERVISOR us Erik Westbrook NP LAB BLOOD ORDERABLES Final Resul t [facility]A [address] [facility] Department [place] [address] * Comprehensive metabolic panel (08/19/2024 8:20 PM COMPENSATION SUPERVISOR) Sodium 140 135 - 145 mmol/L Comment:Testing performed by : [address] [address] Potassium, pl 3.5 3.3 - 4.9 mmol/L TAW[facility]A Comment:Testing performed by : [address] [address] Chloride 104 97 - 110 mmol/L [facility] Comment:Testing performed by : [address] [address] CO2 23 22 - 32 mmol/L [facility] Comment:Testing performed by : [address] [address] Anion gap 13 2 - 15 mmol/L [facility] Comment:Testing performed by : [address] [address] BUN 11 6 - 25 mg/dL [facility] Comment:Testing performed by : [address] [address] Creatinine 0.71 0.60 - 1.10 mg/dL [facility] Comment:Testing performed by : [address] [address] Glucose 136 70 - 199 mg/dL TAWNYA [...] was last revised 2022. Testing performed by: [address] [address] Calcium 9.2 8.5 - 10.3 mg/dL [facility] Comment:Testing performed by : [address] [address] Bilirubin, total <0.2 0.1 - 1.2 mg/dL [facility] Comment:Testing performed by : [address] [address] Protein, pl 7.5 6.5 - 8.5 g/dL [facility] Comment:Testing performed by : [address] [address] Albumin 4.4 3.5 - 5.0 g/dL [facility] Comment:Testing performed by : [address], [address] Alk phos 74 40 - 130 Units/L [facility] Comment:Testing performed by : [address] [address] ALT 29 7 - 45 Units/L [facility] Comment:Testing performed by : [address] [address] AST 19 10 - 45 Units/L [facility] Comment:Testing performed by : [address] [address] Blood 08/19/2024 8:20 PM COMPENSATION SUPERVISOR 08/19/2024 8:24 PM COMPENSATION SUPERVISOR Erik Westbrook NP LAB BLOOD ORDERABLES Final Resul t [facility] [address] [facility] Department [place] [address] * Critical Care (08/19/2024 5:13 PM COMPENSATION SUPERVISOR) Narrative Erik Westbrook NP - 08/19/2024 5:13 PM COMPENSATION SUPERVISOR Erik Westbrook NP 08/19/2024 9:10 PM [...] Final Result from Last 3 Months Insurance [email or web address] OPEN ACCESS [facility] CHOICE PLUS [facility] CHOICE PLUS Advance Directives For more information, please contact: [phone] * Full Code (Latest Code Status on File) Date Activated Date Inactivated Comments 09/23/2024 7:38 PM 09/24/2024 5:41 PM * Full Code Date Activated Date Inactivated Comments 09/01/2024 7:30 PM 09/05/2024 3:39 PM * Full Code Date Activated Date Inactivated Comments 08/19/2024 9:45 PM 08/22/2024 5:15 PM Care Teams Optics Technical Officer Relationship Specialty Start Date End Date Shannan Maldonado MD PCP - General 09/07/19
--- OUTSIDE RECORDS SUMMARY | 2024-09-29 14:14 | XMS_ITS | Continuity of Care Document ---
Author Organization [facility] Address [address] [place] [address] Phone Care Team Providers Care Recreational Therapy Technician Name Role Phone Manuel Anthony MD Unavailable [...] by oral route twice daily - Active diphenhydramine 50 mg tablet take 1 tablet by oral route as needed for itching or swelling - Active EpiPen 0.3 mg/0.3 mL (1:1,000) injection,auto-injec tor inject dose (0.3MG) intramuscularly into thigh once then call 911 as needed - Active Please fill with Twin Giacomo Align 4 mg capsule - Active Gracie 3 mg-0.03 mg tablet take 1 tablet by oral route every day 1.00 tablet - Active tramadol 50 mg tablet take 1 tablet by oral route every 6 hours as needed 50 MG - Active Procedures Procedure Date ASP/INJ MAJOR JOINTOR BURSA, SHOULDER, H IP,KNEE W/O US GUIDANCE SURGICAL TRAY LOW OSMOLAR CONTRAST (200 TO 299 MG IODI NE) Advance Directives Directive Yes / No Effective Date File Name No Information Encounters Encounter Description Practice Location Reason(s) For Visit Diagnoses Date Provider Providers Copied on Encounter [facility], [address], [place], [place], [address] , [place] tel: [phone] [facility] No Information 2 Gabrielle Jackson. [address] , [place], [place], [address] , [place]. tel: [phone] Referring Provider: Lazarus Blandon, [address], [place], [address]. tel:[phone] [facility], [address], [place], [place], [address] , [place] tel: [phone] [facility] No Information [address] [place] [address], [id number] , [place]. tel: [phone] [facility], [address], [place], [address] , [place] tel: [phone] [facility] Abdominal pain, unspecified abdominal locationGastroesop hageal reflux disease without esophagitisFlatule nce symptomIrritable bowel syndrome without diarrhea 6 Aida Nava. [address] [facility], [address], [place], [place], [address] , [place]. tel: [phone] Referring Provider: Shannan Maldonado, [address], [place], [address]. tel:[phone] [facility], [address], [place], [place], [address] , [place] tel: [phone] [facility] No Information 5 Lawson Cai. [address], [id number] , [place]. tel: [phone] [facility], [address], [place], [place], [address] , [place] tel: [phone] [facility] Anaphylaxis, initial encounter Lawson Cai. [address], [id number] , [place]. tel: [phone] [facility], [address], [place], [place], [address] , tel: [phone] [facility] Anaphylaxis, initial encounter Lawson Cai. [address], [id number] , [place]. tel: [phone] [email or web address] [facility], [address], [place], [place], [address] , tel: [phone] [facility] Anaphylaxis, initial encounter Lawson Cai. [address], [id number] , [place]. tel: [phone] Referring Provider: Shannan Maldonado [address] [place], [address]. tel:[phone] Family History Family Member Type Diagnosis Age At Onset No Information Payers Payer name Insurance type Covered constitution party ID Herminia cervantes(s) SANYA PASTRANA CI [id number] Social History Type Description Quantity Date Captured [...]
[2024-09-29 14:40] VITALS: BP 161/107; PULSE 136; RESP 24; TEMP 36.6; O2SAT 99
[2024-09-29 14:43] VITALS: O2SAT 98
--- OUTSIDE RECORDS SUMMARY | 2024-09-29 15:06 | XMS_ITS | Patient Health Record ---
Author Organization [facility] Address [address] [place] [address] Care Team Providers Care Coutierier Name Role Phone Shannan Maldonado Primary Care Provider UnavailRomy Razo Unavailable [phone] Megan Alvarado Unavailable [phone] [facility], Provider Unavailable Unavailab le Allergies Allergen [...] W/U Status Risk Notes Problem Idiopathic urticaria (91665448) Idiopathic urticaria (L50.1) Active confirmed Problem Anemia (984251412) Anemia, unspecified (D64.9) Active confirmed Problem Chronic allergic conjunctivitis (47373574) Other chronic allergic conjunctivitis (H10.45) Active confirmed Problem Allergic rhinitis caused by pollen (disorder) (13463807) Allergic rhinitis due to pollen (J30.1) Active confirmed Problem Allergic rhinitis (84390453) Other allergic rhinitis (J30.89) Active confirmed Problem Chronic sinusitis (41926240) Chronic sinusitis, unspecified (J32.9) Active confirmed Problem Mild intermittent asthma (225444562) Mild intermittent asthma, uncomplicated (J45.20) Active confirmed Problem 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 Problem 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) Angioneurotic edema, subsequent encounter (T78.3XXD) Active confirmed Problem Allergy status t o narcotic agent status (Z88.5) Active confirmed Problem Food allergy (481210772) Allergy to other foods (Z91.018) Active confirmed Problem Allergic rhinitis caused by animal hair and dander (975852228906529) Allergic rhinitis due to animal (cat) (dog) hair and dander (J30.81) Active confirmed Problem Angioneurotic edema (87654984) Angioneurotic edema, initial encounter (T78.3XXA) Active confirmed Problem Urticaria (234513825) Other Urticaria (L50.8) Active confirmed Vital Signs Oximetry 100 % 09/11/2024 Blood pressure diastolic 88 mm Hg 09/11/2024 Height 67 in 09/11/2024 Blood pressure systolic 144 mm Hg 09/11/2024 Weight 201.8 lbs 09/11/2024 BMI 31.6 kg/m2 09/11/2024 Encounters Encounter Location Date Provider Diagnosis [facility] [address] [place] [address] 10/16/2023 Romy Montiel [address] [address] 10/23/2023 Romy Montiel Idiopathic urticaria L50.[address] [address] 12/06/2023 Romy Montiel [address] [address] 01/10/2024 Romy Montiel [address] [address] 05/02/2024 Romy Montiel Idiopathic urticaria L50.[address] [address] 05/24/2024 Romy Montiel [address] [place] [address] 06/19/[address] [facility] [address] [place] [address] 06/25/[address] [facility] [address] [place] [address] 07/31/2024 Romy Montiel [address] [place] [address] 08/05/2024 Romyelicia Montiel [facility] [address] [place] [address] 08/05/2024 Romyelicia Montiel [facility] [address] [place] [address] 08/21/2024 Romyelicia Montiel [facility] [address] [place] [address] 08/26/2024 [address] [address] 09/09/[address] [address] 09/17/2024 Romyelicia Montiel [address] [address] 08/27/2024 Romyelicia Montiel Idiopathic urticaria L50.1 ; Angioneurotic edema, [...] Z88.5 and Mild intermittent asthma, uncomplicated J45.20 [facility] [address] [place] [address] 10/11/2023 Romy Montiel Idiopathic urticaria L50.1 ; Angioneurotic [...] asthma, uncomplicated J45.20 and Anemia, unspecified D64.9 [facility] [address] [place] [address] 09/11/2024 Romy Dinesh Idiopathic urticaria L50.1 ; Angioneurotic [...] Z88.5 and Mild intermittent asthma, uncomplicated J45.20 [facility] [address] [place] [address] 05/22/2024 Romy Dinesh Idiopathic urticaria L50.1 ; [...] Z88.5 and Mild intermittent asthma, uncomplicated J45.20 [facility] [address] [place] [address] 06/05/2024 Romy Dinesh Other Urticaria L50. [address] [address] 06/19/2024 Romy Dinesh Other Urticaria L50. [address] [address] 07/10/2024 Romy Dinesh Other Urticaria L50. 8 [facility] [address] [place] [address] 07/24/2024 Romy Dinesh Other Urticaria L50. [address] [address] 08/07/2024 Romy Dinesh Other Urticaria L50. 8 [facility] [address] [place] [address] 10/25/2023 Romy Dinesh Other Urticaria L50. 8 [facility] [address] [place] [address] 11/08/2023 Romy Dinesh Other Urticaria L50. 8 [facility] [address] [place] [address] 11/22/2023 Romy Dinesh Other Urticaria L50. 8 [facility] [address] [place] [address] 12/06/2023 Romy Dinesh Other Urticaria L50. 8 [facility] [address] [place] [address] 12/20/2023 Romy Dinesh Other Urticaria L50. 8 [facility] [address] [place] [address] 01/03/2024 Romy Dinesh Other Urticaria L50. 8 [facility] [address] [place] [address] 01/17/2024 Romy Dinesh Other Urticaria L50. 8 [facility] [address] [place] [address] 01/31/2024 Romy Dinesh Other Urticaria L50. 8 [facility] [address] [place] [address] 02/14/2024 Romy Dinesh Other Urticaria L50. 8 [facility] [address] [place] [address] 02/28/2024 Romy Dinesh Other Urticaria L50. 8 [facility] [address] [place] [address] 03/13/2024 Romy Dinesh Other Urticaria L50. 8 [facility] [address] [place] [address] 03/27/2024 Romy Montiel Other Urticaria L50. 8 [facility] [address] [place] [address] 04/10/2024 Romy Dinesh Other Urticaria L50. [address] [address] 04/24/2024 Romy Dinesh Other Urticaria L50. [address] [address] 05/08/2024 Romy Dinesh Other Urticaria L50. [address] [address] 12/16/2023 Provider Elida Assessments Encounter Date Diagnosis (ICD Code) Assessment Notes Treatment Notes Treatment Clinical Notes Section Notes 10/23/2023 Idiopathic urticaria (ICD-10 - L50.1) 12/06/2023 Other Urticaria (ICD-10 - L50.8) 12/20/2023 Other Urticaria (ICD-10 - L50.8) 01/31/2024 Other Urticaria (ICD-10 - L50.8) 03/27/2024 Other Urticaria (ICD-10 - L50.8) 04/10/2024 Other Urticaria (ICD-10 - L50.8) 04/24/2024 Other Urticaria (ICD-10 - L50.8) 08/07/2024 Other Urticaria (ICD-10 - L50.8) 08/27/2024 Idiopathic urticaria (ICD-10 - L50.1) She was sent home with steroids after hospitalization and last dose today. Plan for further taper as above. 08/27/2024 Angioneurotic edema, subsequent encounter (ICD-10 - [...] after hospitalization and requesting a further taper 01/17/2024 Other Urticaria (ICD-10 - L50.8) 01/03/2024 Other Urticaria (ICD-10 - L50.8) 11/22/2023 Other Urticaria (ICD-10 - L50.8) 11/08/2023 Other Urticaria (ICD-10 - L50.8) 09/11/2024 Angioneurotic edema, subsequent encounter (ICD-10 - [...] therapy since unclear if benefit from Xolair. 07/24/2024 Other Urticaria (ICD-10 - L50.8) 07/10/2024 Other Urticaria (ICD-10 - L50.8) 06/19/2024 Other Urticaria (ICD-10 - L50.8) 06/05/2024 Other Urticaria (ICD-10 - L50.8) 05/22/2024 Idiopathic urticaria (ICD-10 - L50.1) 05/22/2024 Angioneurotic edema, subsequent encounter (ICD-10 - [...] from Dr. Suarez. Needs to f/u with [employer] or PCP due to fainting episodes 05/08/2024 Other Urticaria (ICD-10 - L50.8) 05/02/2024 Idiopathic urticaria (ICD-10 - L50.1) 10/25/2023 Other Urticaria (ICD-10 - L50.8) 10/11/2023 [...] in the office. Continue Xolair q2 weeks. 03/13/2024 Other Urticaria (ICD-10 - L50.8) 02/28/2024 Other Urticaria (ICD-10 - L50.8) 02/14/2024 Other Urticaria (ICD-10 - L50.8) 10/11/2023 Chronic sinusitis, unspecified (ICD-10 - J32.9) [...] normal and normal response to vaccines 08/27/2024 Allergic rhinitis due to pollen (ICD-10 - J30.1) Rosangela clearly suffers from atopic disease based upon history and our skin testing. Consider immunotherapy in the future if needed. 09/11/2024 Allergic rhinitis due to pollen (ICD-10 - J30.1) Rosangela clearly suffers from atopic disease based upon history and our skin testing. Consider immunotherapy in the future if needed. 05/22/2024 Allergic rhinitis due to pollen (ICD-10 [...] hair and dander (ICD-10 - J30.81) 08/27/2024 Other allergic rhinitis (ICD-10 - J30.89) 09/11/2024 Other allergic rhinitis (ICD-10 - J30.89) 05/22/2024 Other allergic rhinitis (ICD-10 - J30.89) 10/11/2023 [...] appear to be food related 05/22/2024 Allergy status to narcotic agent status (ICD-10 - Z88.5) Appears to have allergic reaction with morphine, but only involved the IV site. May be a local reaction. No other symptoms. Avoid for now since tolerates Fentanyl. 10/11/2023 Allergy status to narcotic agent status [...] Avoid for now since tolerates Fentanyl. 08/27/2024 Mild intermittent asthma, uncomplicated (ICD-10 - J45.20) Spirometry at last check is normal. Continue prn albuterol 09/11/2024 Mild intermittent asthma, uncomplicated (ICD-10 - J45.20) Spirometry at last check is normal. Continue prn albuterol 05/22/2024 Mild intermittent asthma, uncomplicated (ICD-10 - J45.20) Spirometry at last check is normal. Continue prn albuterol 10/11/2023 Mild intermittent asthma, uncomplicated (ICD-10 - J45.20) Spirometry at last check is normal. Continue prn albuterol 10/11/2023 Anemia, unspecified (ICD-10 - D64.9) Anemia on CBC and history of iron deficiency anemia. She is now taking iron supplements 10/25/2023 Other 11/08/2023 Other 11/22/2023 Other 12/06/2023 Other 12/20/2023 Other 01/03/2024 Other 01/17/2024 Other 01/31/2024 Other 02/14/2024 Other 02/28/2024 Other 03/13/2024 Other 03/27/2024 Other 04/10/2024 Other 04/24/2024 Other 05/08/2024 Other 05/22/2024 Other 08/21/2024 Other 06/05/2024 Other 06/19/2024 Other 07/10/2024 Other 07/24/2024 Other 08/07/2024 Other 08/27/2024 Other 09/11/2024 Other Plan Of Treatment Pending Test Test Name Order Date -CBC With Differential/Platelet 02/12/20 N METHYLHISTAMINE, URINE 02/25/2020 STREPTOCOCCUS PNEUMONIAE IGG AB (23 SERO TYPES) 02/25/2020 5-HIAA, 24-HOUR URINE 12/15/2021 ALPHA GAL PANEL 12/15/2021 PROSTAGLANDIN D2 (PG D2), URINE 12/16/19 LEUKOTRIENE E4, URINE 12/15/2021 LEUKOTRIENE E4, URINE 02/25/2020 LEUKOTRIENE E4, URINE 10/26/2022 -IgE Peanut w/Component Profile 10/29/19 Next Appt Details Provider Name:Romy archer, 10/02/2024 02:45:00 PM, [email or web address], [address], [place], [address], Insurance Providers Payer Name Payer Address Payer Phone Subscriber Number Group Number Insured Name Patient Relationship to Insured Coverage Start Date Coverage End Date [employer] [address] [place] [address] [id number] Anson Koenig Spouse - patient is the spouse of the insured 4 [employer] [facility] e [address] [place] [address] [id number] Anson Koenig Spouse - patient is the spouse of the insured 5 [employer] Copay Program [address] [place] [id number] Rosangela Koenig Self - patient is the [...] Surgical History Surgery Date(Month/Year) Muscle Biopsy 10/17/2006 [place] Teeth Removal 2008 D&C 2008 Medial Patella Femoral Ligament Reconstr uction 11/06/2009 Tonsillectomy 10/2010 Tarsal Tunnal Release 2016 foot surgery for toe dislocation (right foot) 12/2021 screw right great toe replaced and pin p ut in second right toe 04/2023 Hospitalization History Reason Date(Month/Year) anaphylaxis 10/12/22 anaphylaxis 09/08/2022 Epistaxis 06/28/22 Urticaria and Angioedema October 2021
--- OUTSIDE RECORDS SUMMARY | 2024-09-29 15:06 | XMS_ITS | Referral Summary ---
Author Organization [facility] Geena Hernandez Extdamian nsion Address [address] [place] [address] Care Team Providers Care Crop Adjuster Name Role Phone Shannan Maldonado MD Primary Care Provider [phone] Encounters Date Type Department Care Team Description 09/28/2024 7:55 PM CDT - 09/28/2024 10:39 PM CDT Emergency [facility] Emergency Department [address] [place] [address] Simran Frank MD Allergic reaction, initial encounter (Primary Dx) Discharge Disposition: Discharge to home or self care 09/27/2024 3:49 AM CDT - 09/27/2024 6:10 AM CDT Emergency [facility] Emergency Department [address] [place] [address] Ferdinand Rivera DO Allergic reaction, initial encounter (Primary Dx); Jaw pain Discharge Disposition: Discharge to home or self care 09/23/2024 4:55 PM CDT - 09/24/2024 1:30 PM CDT Hospital Encounter [facility] 4 Med Surg [address] [place] [address] Samuel Bowen MD Winston, Jared Todd, MD Ali, Md Shahin, MD Allergic reaction, initial encounter (Primary Dx) Discharge Disposition: Discharge to home or self care 09/01/2024 2:02 PM SUPERVISOR CONCR[employer] F[employer]RICATING - 09/05/2024 11:38 AM SUPERVISOR CONCR[employer]RICATING Hospital Encounter [facility] 4 Med Surg [address] [place] [address] Wil Monteiro MD Gaspe Mudiyanselage, MD Tobin Vinson, Venkat Robin MD Allergic reaction, initial encounter (Primary Dx) Discharge Disposition: Discharge to home or self care 08/19/2024 4:39 PM [employer] - 08/22/2024 1:15 PM SUPERVISOR CONCR[employer]ONE F[employer]RICATING Hospital Encounter [facility] 5 Med Surg [address] [place] [id number] José Luis Tripp MD Winston, Jorje Lester [...] drink = 0.6 oz pur e alcohol) [facility] Utilities Answer Date Recorded In the past 12 months has [employer], gas, oil, or water [employer] threatened to shut off services in your [...] often do you attend chur ch or catholic services? Never 09/24/2024 Do you belong to any clubs o r organizations such as sikhism groups, unions, fraternal or athletic groups, or [...] any time in the past 12 m [facility], were you homeless or living in a nursing home (including now)? No 09/24/2024 Personal Safety Answer Date Recorded Have you ever been in or are you currently in a harmful physical or emotional relationship or is someone making you feel afraid or unsafe? Denies 09/28/2024 Comments No Sex and Gender Information Value Date Recorded Sex Assigned at Not on file Legal Sex Female 1:34 AM SUPER[employer] Gender Identity Female 07/01/2022 7:31 PM SUPER[employer]OR [employer]ATING Sexual Orientation Not on file Last Filed [...] VIEWS Critical/Life- Threatening 09/23/2024 8:29 PM CDT HI CLOSED TX STERNOCLAVICULAR DISLC W/MANIPULATION Routine 09/23/2024 [...] CBC WITHOUT DIFFERENTIAL Routine 025 4:27 AM SUPERVISOR [employer]RICATING CBC WITHOUT DIFFERENTIAL Routine 025 4:25 AM SUPERVISOR [employer]CR[employer] F[employer]RICATING TROPONIN T HIGH-SENSITIVITY 2-HOUR Timed 09/01/2024 5:11 PM SUPERVISOR [employer] F[employer]RICATING URINALYSIS AND REFLEX TO MICROSCOPIC AND CULTURE STAT 09/01/2024 4:58 PM SUPERVISOR CONCR[employer]E [employer] FABRICATING XR CHEST 1 VIEW ED 09/01/2024 3:05 PM SUPERVISOR [employer]CR[employer]E [employer]ONE FABRICATING EGFR STAT 09/01/2024 2:59 PM SUPERVISOR CONCR[employer]E [employer]ONE FABRICATING DIFFERENTIAL AUTO STAT 09/01/2024 2:5 9 PM SUPERVISOR CONCR[employer]E [employer]ONE FABRICATING MAGNESIUM STAT 09/01/2024 2:59 PM SUPERVISOR CONCR[employer]E [employer]ONE FABRICATING THYROID FUNCTION CASCADE STAT 025 2:59 PM SUPERVISOR CONCRETE STONE FABRICATING TROPONIN T HIGH-SENSITIVITY SERIES (BASELINE, 2HR, 4HR, 6HR) STAT 09/01/2024 2:59 PM SUPERVISOR CONCR[employer]ONE F[employer]RICATING BASIC METABOLIC PANEL STAT 09/01/2024 2:59 PM SUPERVISOR [employer]CR[employer]E [employer]ONE FABRICATING CBC WITH AUTO DIFFERENTIAL STAT 09/01/2024 2:59 PM SUPERVISOR [employer]CR[employer] F[employer]RICATING POCT HCG, URINE Routine 09/01/2024 2:28 PM SUPERVISOR [employer]CR[employer]E [employer]ONE FABRICATING ECG 12-LEAD Routine 09/01/2024 1:54 PM SUPERVISOR [employer]CR[employer]E [employer]ONE F[employer]RICATING EGFR Routine 08/22/2024 7:57 AM SUPERVISOR CONCR[employer]E [employer]ONE FABRICATING CBC WITHOUT DIFFERENTIAL Routine 025 7:57 AM SUPERVISOR [employer]CR[employer]E [employer] FABRICATING BASIC METABOLIC PANEL Routine 08/22/2024 7:57 AM SUPERVISOR CONCR[employer]E [employer]ONE FABRICATING EGFR Routine 08/21/2024 7:53 AM SUPERVISOR CONCR[employer]E [employer]ONE FABRICATING CBC WITHOUT DIFFERENTIAL Routine 025 7:53 AM SUPERVISOR CONCR[employer]E [employer]ONE FABRICATING BASIC METABOLIC PANEL Routine 08/21/2024 7:53 AM SUPERVISOR CONCRETE [employer]ONE FABRICATING HI CLOSED TX TEMPOROMANDIBULAR DISLOCATION 1ST/SBSQ Routine 08/20/2024 1:18 PM SUPERVISOR [employer]CR[employer]E [employer] FABRICATING ED MODERATE SEDATION Routine 08/20/2024 1:18 PM SUPERVISOR [employer]CR[employer]E [employer] FABRICATING XR MANDIBLE LESS THAN 4 VIEWS Critical/Life- Threatening 08/20/2024 11:41 AM SUPERVISOR CONCR[employer]E [employer] FABRICATING SEPSIS LACTATE WITH REFLEX Timed 08/20/2024 8:24 AM SUPERVISOR CONCRETE [employer]ONE FABRICATING EGFR Routine 08/20/2024 3:25 AM SUPERVISOR CONCRETE STONE FABRICATING CBC WITHOUT DIFFERENTIAL Routine 025 3:25 AM SUPERVISOR CONCRETE [employer]ONE FABRICATING BASIC METABOLIC PANEL Routine 08/20/2024 3:25 AM SUPERVISOR CONCRETE [employer]ONE FABRICATING SEPSIS LACTATE WITH REFLEX Timed 08/20/2024 3:25 AM SUPERVISOR CONCRETE STONE FABRICATING ECG 12-LEAD Routine 08/20/2024 2:26 AM SUPERVISOR CONCRETE [employer]ONE FABRICATING SEPSIS LACTATE WITH REFLEX STAT 08/19/2024 8:52 PM SUPERVISOR CONCRETE STONE FABRICATING ECG 12-LEAD STAT 08/19/2024 8:25 PM SUPERVISOR CONCRETE STONE FABRICATING EGFR STAT 08/19/2024 8:20 PM SUPERVISOR CONCRETE [employer]ONE FABRICATING DIFFERENTIAL AUTO STAT 08/19/2024 8:2 0 PM SUPERVISOR CONCRETE STONE FABRICATING CBC WITH AUTO DIFFERENTIAL STAT 08/19/2024 8:20 PM SUPERVISOR CONCRETE STONE FABRICATING COMPREHENSIVE METABOLIC PANEL STAT 08/19/2024 8:20 PM SUPERVISOR CONCRETE STONE FABRICATING ED CRITICAL CARE Routine 08/19/2024 5:13 PM SUPERVISOR CONCR[employer]E [employer]ONE FABRICATING from Last 3 Months Results * XR [...] anaphylaxis, 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 Wheezes throughout upon auscultation with audible [...] Shirley Reardon M.D. 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 Wheezes throughout upon auscultation with audible [...] Shirley Reardon M.D. 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 Wheezes throughout upon auscultation with audible [...] Arnold Chahal M.D. 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 Wheezes throughout upon auscultation with audible [...] Arnold Chahal M.D. KH: GLADYS Report ID: [id number] Reading Location: [place] [address] Simran Frank MD IMG XR PROCEDURES Final [...] was last reviewed 2021. Testing performed by: [address] [address] Blood 09/28/2024 8:10 PM CDT 09/28/2024 8:12 PM CDT Sirman Frank MD LAB BLOOD ORDERABLES Ruthy farooq Result [facility] [address] [facility] Department [place] [address] * (ABNORMAL) Differential, auto (09/28/2024 8:10 PM CDT) Neutrophil abs 12.9(H) 1.5 - 6.5 K/cumm Comment:Testing performed by : [address] [address] Imm gran abs 0.2(H) 0.0 - 0.1 K/cumm [facility] Comment:Testing performed by : [address] [address] Lymphocyte abs 3.9(H) 0.8 - 3.3 K/cumm [facility] Comment:Testing performed by : [address] [address] Monocyte abs 1.6(H) 0.2 - 0.8 K/cumm [facility] Comment:Testing performed by : [address] [address] Eosinophil abs 0.0 0.0 - 0.5 K/cumm [facility] Comment:Testing performed by : [address] [address] Basophil abs 0.0 0.0 - 0.1 K/cumm [facility] Comment:Testing performed by : [address] [address] Neutrophil pct 69.2 % [facility] Comment: Interpretive Data Percent cell count reference ranges are not reported, since discordance with absolute values may lead to misinterpretation of CBC data. Current Interpretive Data was last revised on 2017. Testing performed by: [address] [address] Imm gran pct 1.1 % [facility] Comment: Interpretive Data Percent cell count reference ranges are not reported, since discordance with absolute values may lead to misinterpretation of CBC data. Current Interpretive Data was last revised on 2017. Testing performed by: [address] [address] Lymphocyte pct 20.7 % [facility] Comment: Interpretive Data Percent cell count reference ranges are not reported, since discordance with absolute values may lead to misinterpretation of CBC data. Current Interpretive Data was last revised on 2017. Testing performed by: [address] [address] Monocyte pct 8.7 % [facility] Comment: Interpretive Data Percent cell count reference ranges are not reported, since discordance with absolute values may lead to misinterpretation of CBC data. Current Interpretive Data was last revised on 2017. Testing performed by: [address] [address] Eosinophil pct 0.1 % [facility] Comment: Interpretive Data Percent cell count reference ranges are not reported, since discordance with absolute values may lead to misinterpretation of CBC data. Current Interpretive Data was last revised on 2017. Testing performed by: [address] [address] Basophil pct 0.2 % [facility] Comment: Interpretive Data Percent cell count reference ranges are not reported, since discordance with absolute values may lead to misinterpretation of CBC data. Current Interpretive Data was last revised on 2017. Testing performed by: [address] [address] Blood 09/28/2024 8:10 PM CDT 09/28/2024 8:11 PM CDT us Simran Frank MD LAB BLOOD ORDERABLES Ruthy trivedi Result [facility] [address] [facility] Department [place] [address] * (ABNORMAL) CBC with auto differential (09/28/2024 8:10 PM CDT) [facility] WBC 18.6(H) 3.8 - 9.9 K/cumm Comment:Testing performed by : [address] [address] Hgb 11.3(L) 11.9 - 15.5 g/dL [facility] Comment:Testing performed by : [address], [address] Hct 36.0 35.6 - 45.5 % [facility] Comment:Testing performed by : [address], [address] Plt 601(H) 150 - 400 K/cumm [facility] Comment:Testing performed by : [address] [address] MPV 9.1 9.1 - 12.3 fL [facility] Comment:Testing performed by : [address] [address] RBC 4.56 3.90 - 5.20 M/cumm [facility] Comment:Testing performed by : [address] [address] MCV 78.9(L) 81.3 - 96.4 fL [facility] Comment:Testing performed by : [address] [address] MCH 24.8(L) 27.1 - 33.3 pg [facility] Comment:Testing performed by : [address] [address] MCHC 31.4(L) 32.3 - 35.7 g/dL [facility] Comment:Testing performed by : [address], [address] RDW CV 15.2(H) 11.1 - 14.9 % [facility] Comment:Testing performed by : [address] [address] RDW SD 43.6 35.7 - 48.1 fL [facility] Comment:Testing performed by : [address], [address] NRBC abs 0.03(H) 0.00 - 0.01 K/cumm [facility] Comment:Testing performed by : [address] [address] Blood 09/28/2024 8:10 PM CDT 09/28/2024 8:11 PM CDT Simran Frank MD LAB BLOOD ORDERABLES Ruthy trivedi Result [facility] [address] [facility] Department [place] [address] * (ABNORMAL) Comprehensive metabolic panel (09/28/2024 8:10 PM CDT) Sodium 142 135 - 145 mmol/L Comment:Testing performed by : [address] [address] Potassium, pl 3.2(L) 3.3 - 4.9 mmol/L [facility] Comment:Testing performed by : [address] [address] Chloride 103 97 - 110 mmol/L [facility] Comment:Testing performed by : [address] [address] CO2 23 22 - 32 mmol/L [facility] Comment:Testing performed by : [address] [address] Anion gap 16(H) 2 - 15 mmol/L [facility] Comment:Testing performed by : [address] [address] BUN 18 6 - 25 mg/dL [facility] Comment:Testing performed by : [address] [address] Creatinine 0.80 0.60 - 1.10 mg/dL [facility] Comment:Testing performed by : [address] [address] Glucose 108 70 - 199 mg/dL [facility] [...] was last revised 2022. Testing performed by: [address] [address] Calcium 10.0 8.5 - 10.3 mg/dL [facility] Comment:Testing performed by : [address] [address] Bilirubin, total <0.2 0.1 - 1.2 mg/dL [facility] Comment:Testing performed by : [address] [address] Protein, pl 7.4 6.5 - 8.5 g/dL [facility] Comment:Testing performed by : [address] [address] Albumin 4.4 3.5 - 5.0 g/dL [facility] Comment:Testing performed by : [address] [address] Alk phos 77 40 - 130 Units/L [facility] Comment:Testing performed by : [address] [address] ALT 28 7 - 45 Units/L [facility] Comment:Testing performed by : [address] [address] AST 22 10 - 45 Units/L [facility] Comment:Testing performed by : [address] [address] Blood 09/28/2024 8:10 PM CDT 09/28/2024 8:12 PM CDT us Simran Frank MD LAB BLOOD ORDERABLES Ruthy trivedi Result [facility] [address] [facility] Department of Laboratories [place], [place] [id number] * eGFR (09/27/2024 2:58 AM CDT) eGFR [...] was last reviewed 2021. Testing performed by: [address] [address] Blood 09/27/2024 2:58 AM CDT 09/27/2024 3:03 AM CDT us Ferdinand Rivera DO LAB BLOOD ORDERABLES Final Res ult [facility] [address] [facility] Department [place] [address] * (ABNORMAL) Differential, auto (09/27/2024 2:58 AM CDT) Pathologist [facility] Neutrophil abs 13.2(H) 1.5 - 6.5 K/cumm Comment:Testing performed by : [address] [address] Imm gran abs 0.1 0.0 - 0.1 K/cumm [facility] Comment:Testing performed by : [address] [address] Lymphocyte abs 1.7 0.8 - 3.3 K/cumm [facility] Comment:Testing performed by : [address] [address] Monocyte abs 1.0(H) 0.2 - 0.8 K/cumm [facility] Comment:Testing performed by : [address] [address] Eosinophil abs 0.0 0.0 - 0.5 K/cumm [facility] Comment:Testing performed by : [address] [address] Basophil abs 0.0 0.0 - 0.1 K/cumm [facility] Comment:Testing performed by : [address] [address] Neutrophil pct 82.5 % [facility] Comment: Interpretive Data Percent cell count reference ranges are not reported, since discordance with absolute values may lead to misinterpretation of CBC data. Current Interpretive Data was last revised on 2017. Testing performed by: [address] [address] Imm gran pct 0.8 % [facility] Comment: Interpretive Data Percent cell count reference ranges are not reported, since discordance with absolute values may lead to misinterpretation of CBC data. Current Interpretive Data was last revised on 2017. Testing performed by: [address] [address] Lymphocyte pct 10.4 % [facility] Comment: Interpretive Data Percent cell count reference ranges are not reported, since discordance with absolute values may lead to misinterpretation of CBC data. Current Interpretive Data was last revised on 2017. Testing performed by: [address] [address] Monocyte pct 6.2 % [facility] Comment: Interpretive Data Percent cell count reference ranges are not reported, since discordance with absolute values may lead to misinterpretation of CBC data. Current Interpretive Data was last revised on 2017. Testing performed by: [address] [address] Eosinophil pct 0.0 % [facility] Comment: Interpretive Data Percent cell count reference ranges are not reported, since discordance with absolute values may lead to misinterpretation of CBC data. Current Interpretive Data was last revised on 2017. Testing performed by: [address] [address] Basophil pct 0.1 % [facility] Comment: Interpretive Data Percent cell count reference ranges are not reported, since discordance with absolute values may lead to misinterpretation of CBC data. Current Interpretive Data was last revised on 2017. Testing performed by: [address] [address] Blood 09/27/2024 2:58 AM CDT 09/27/2024 3:03 AM CDT us Ferdinand Rivera DO LAB BLOOD ORDERABLES Final Res ult [facility] [address] [facility] Department [place] [address] * (ABNORMAL) CBC with auto differential (09/27/2024 2:58 AM CDT) WBC 15.9(H) 3.8 - 9.9 K/cumm Comment:Testing performed by : [address] [address] Hgb 11.3(L) 11.9 - 15.5 g/dL [facility] Comment:Testing performed by : [address] [address] Hct 36.7 35.6 - 45.5 % [facility] Comment:Testing performed by : [address] [address] Plt 532(H) 150 - 400 K/cumm [facility] Comment:Testing performed by : [address] [address] MPV 9.2 9.1 - 12.3 fL [facility] Comment:Testing performed by : [address] [address] RBC 4.50 3.90 - 5.20 M/cumm [facility] Comment:Testing performed by : [address] [address] MCV 81.6 81.3 - 96.4 fL [facility] Comment:Testing performed by : [address] [address] MCH 25.1(L) 27.1 - 33.3 pg [facility] Comment:Testing performed by : [address] [address] MCHC 30.8(L) 32.3 - 35.7 g/dL [facility] Comment:Testing performed by : [address] [address] RDW CV 15.4(H) 11.1 - 14.9 % [facility] Comment:Testing performed by : [address] [address] RDW SD 45.1 35.7 - 48.1 fL [facility] Comment:Testing performed by : [address] [address] NRBC abs 0.00 0.00 - 0.01 K/cumm [facility] Comment:Testing performed by : [address] [address] Blood 09/27/2024 2:58 AM CDT 09/27/2024 3:03 AM CDT us Ferdinand Rivera DO LAB BLOOD ORDERABLES Final Res ult [facility] [address] [facility] Department of Laboratories [place], [place] [id number] * Comprehensive metabolic panel (09/27/2024 2:58 AM CDT) Sodium 140 135 - 145 mmol/L Comment:Testing performed by : [address] [address] Potassium, pl 3.8 3.3 - 4.9 mmol/L [facility] Comment:Testing performed by : [address] [address] Chloride 103 97 - 110 mmol/L [facility] Comment:Testing performed by : [address] [address] CO2 23 22 - 32 mmol/L [facility] Comment:Testing performed by : [address] [address] Anion gap 14 2 - 15 mmol/L [facility] Comment:Testing performed by : [address], [place]., [address] BUN 11 6 - 25 mg/dL [facility] Comment:Testing performed by : [address], [place]., [address] Creatinine 0.66 0.60 - 1.10 mg/dL [facility] Comment:Testing performed by : [address], [place]., [address] Glucose 154 70 - 199 mg/dL [facility] Comment: Interpretive Data Fasting glucose >/= [...] was last revised 2022. Testing performed by: [address] [address] Calcium 10.3 8.5 - 10.3 mg/dL [facility] Comment:Testing performed by : [address] [address] Bilirubin, total <0.2 0.1 - 1.2 mg/dL [facility] Comment:Testing performed by : [address] [address] Protein, pl 7.8 6.5 - 8.5 g/dL [facility] Comment:Testing performed by : [address] [address] Albumin 4.5 3.5 - 5.0 g/dL [facility] Comment:Testing performed by : [address] [address] Alk phos 85 40 - 130 Units/L [facility] Comment:Testing performed by : [facility], [address] [place] [address]., [address] ALT 25 7 - 45 Units/L [facility] Comment:Testing performed by : [address] [address] AST 15 10 - 45 Units/L [facility] Comment:Testing performed by : [address] [address] Blood 09/27/2024 2:58 AM CDT 09/27/2024 3:03 AM CDT Ferdinand Rivera DO LAB BLOOD ORDERABLES Final Res ult [facility] [address] [facility] Department [place] [address] * eGFR (09/24/2024 3:43 AM CDT) eGFR [...] was last reviewed 2021. Testing performed by: [address] [address] Blood 09/24/2024 3:43 AM CDT 09/24/2024 4:47 AM CDT us Dariela Cortez [employer]ROLE[employer] REFINING EQUIPMENT OPERATOR LAB BLOOD ORDERABLES Final R esult [facility] [address] [facility] Department [place] [address] * (ABNORMAL) Differential, auto (09/24/2024 3:43 AM CDT) Neutrophil abs 9.1(H) 1.5 - 6.5 K/cumm Comment:Testing performed by : [address] [address] Imm gran abs 0.0 0.0 - 0.1 K/cumm [facility] Comment:Testing performed by : [address] [address] Lymphocyte abs 0.7(L) 0.8 - 3.3 K/cumm [facility] Comment:Testing performed by : [address] [address] Monocyte abs 0.3 0.2 - 0.8 K/cumm [facility] Comment:Testing performed by : [address] [address] Eosinophil abs 0.0 0.0 - 0.5 K/cumm [facility] Comment:Testing performed by : [address] [address] Basophil abs 0.0 0.0 - 0.1 K/cumm [facility] Comment:Testing performed by : [address] [address] Neutrophil pct 89.5 % [facility] Comment: Interpretive Data Percent cell count reference ranges are not reported, since discordance with absolute values may lead to misinterpretation of CBC data. Current Interpretive Data was last revised on 2017. Testing performed by: [address] [address] Imm gran pct 0.3 % [facility] Comment: Interpretive Data Percent cell count reference ranges are not reported, since discordance with absolute values may lead to misinterpretation of CBC data. Current Interpretive Data was last revised on 2017. Testing performed by: [address] [place]., [address] Lymphocyte pct 6.9 % [facility] Comment: Interpretive Data Percent cell count reference ranges are not reported, since discordance with absolute values may lead to misinterpretation of CBC data. Current Interpretive Data was last revised on 2017. Testing performed by: [address] [address] Monocyte pct 3.1 % [facility] Comment: Interpretive Data Percent cell count reference ranges are not reported, since discordance with absolute values may lead to misinterpretation of CBC data. Current Interpretive Data was last revised on 2017. Testing performed by: [address] [address] Eosinophil pct 0.0 % [facility] Comment: Interpretive Data Percent cell count reference ranges are not reported, since discordance with absolute values may lead to misinterpretation of CBC data. Current Interpretive Data was last revised on 2017. Testing performed by: [address] [address] Basophil pct 0.2 % [facility] Comment: Interpretive Data Percent cell count reference ranges are not reported, since discordance with absolute values may lead to misinterpretation of CBC data. Current Interpretive Data was last revised on 2017. Testing performed by: [address] [address] Blood 09/24/2024 3:43 AM CDT 09/24/2024 4:50 AM CDT us Dariela Cortez [employer] REFINING EQUIPMENT OPERATOR LAB BLOOD ORDERABLES Final R esult [facility] [address] [facility] Department [place] [address] * (ABNORMAL) CBC with auto differential (09/24/2024 3:43 AM CDT) Pathologist [facility] WBC 10.2(H) 3.8 - 9.9 K/cumm Comment:Testing performed by : [address] [address] Hgb 10.5(L) 11.9 - 15.5 g/dL [facility] Comment:Testing performed by : [address], [address] Hct 34.2(L) 35.6 - 45.5 % [facility] Comment:Testing performed by : [address] [address] Plt 418(H) 150 - 400 K/cumm [facility] Comment:Testing performed by : [address] [address] MPV 9.7 9.1 - 12.3 fL [facility] Comment:Testing performed by : [address], [address] RBC 4.17 3.90 - 5.20 M/cumm [facility] Comment:Testing performed by : [address] [address] MCV 82.0 81.3 - 96.4 fL [facility] Comment:Testing performed by : [address] [address] MCH 25.2(L) 27.1 - 33.3 pg [facility] Comment:Testing performed by : [address] [address] MCHC 30.7(L) 32.3 - 35.7 g/dL TAWNYA Comment:Testing performed by : [address], [address] RDW CV 15.6(H) 11.1 - 14.9 % TAWNYA Comment:Testing performed by : [address], [address] RDW SD 46.4 35.7 - 48.1 fL TAWNYA Comment:Testing performed by : [address], [address] NRBC abs 0.00 0.00 - 0.01 K/cumm TAWNYA Comment:Testing performed by : [address] [address] Blood 09/24/2024 3:43 AM CDT 09/24/2024 4:50 AM CDT us Dariela Gallardocroft CARLOS LAB BLOOD ORDERABLES Final R esult TAWNYA 9877 [facility] Department [place] [address] * (ABNORMAL) Basic metabolic panel (09/24/2024 3:43 AM CDT) Sodium 138 135 - 145 mmol/L Comment:Testing performed by : [address] [address] Potassium, pl 4.2 3.3 - 4.9 mmol/L TAWNYA Comment:Testing performed by : [address] [address] Chloride 107 97 - 110 mmol/L TAWNYA Comment:Testing performed by : [address] [address] CO2 21(L) 22 - 32 mmol/L TAWNYA Comment:Testing performed by : [address] [address] Anion gap 10 2 - 15 mmol/L TAWNYA Comment:Testing performed by : [address] [address] BUN 10 6 - 25 mg/dL TAWNYA Comment:Testing performed by : [address] [address] Creatinine 0.71 0.60 - 1.10 mg/dL TAWNYA Comment:Testing performed by : [address] [address] Glucose 145 70 - 199 mg/dL TAWNYA [...] was last revised 2022. Testing performed by: [facility], [address] [place] [address]., [address] Calcium 9.7 8.5 - 10.3 mg/dL TAWNYA MILLS Comment:Testing performed by : [facility], [address] [place] [address]., [address] Blood 09/24/2024 3:43 AM CDT 09/24/2024 4:47 AM CDT us Dariela Cortez [employer]FINING [employer]QU[employer]MENT OPERATOR LAB BLOOD ORDERABLES Final R esult TAWNYA MILLS 1177 [facility] Department [place] [address] * XR Mandible 4 or [...] Arnold Chahal M.D. KH: GLADYS Report ID: [id number] Reading Location: [id number] Procedure Note Arnold Chahal MD - 09/23/2024 [...] Arnold Chahal M.D. KH: GLADYS Report ID: [id number] Reading Location: [place] [address] Darian Goode MD IMG XR PROCEDURES Fi nal Result * HI CLOSED TX STERNOCLAVICULAR DISLC W/MANIPULATION (09/23/2024 7:35 [...] signed by Arnold GRAHAM: GLADYS Report ID: [id number] Reading Location: [id number] Procedure Note Arnold Chahal MD - 09/23/2024 [...] signed by Arnold GRAHAM: GLADYS Report ID: [id number] Reading Location: [id number] Jorje Huynh MD IMG XR PROCEDURES Final [...] López Mcclellan M.D. MM: MM Report ID: [id number] Reading Location: [id number] Procedure Note López Mcclellan MD - 09/23/2024 [...] López Mcclellan M.D. MM: MM Report ID: [id number] Reading Location: [id number] Samuel Bowen MD IMG XR PROCEDURES F inal Result * ECG 12 lead (09/23/2024 4:46 PM CDT) Ventricular Rate EKG/Min 146 BPM [facility] Atrial Rate 292 BPM [facility] QRS-Interval (MSEC) 98 ms [facility] QT-Interval (MSEC) 350 ms [facility] QTc 545 ms [facility] R [place] 58 degrees [facility] T [place] 50 degrees [facility] Diagnosis Sinus tachycardia Incomplete right bundle branch block T-wave changes When compared with ECG of 01-SEP-2024 13:54, No significant change Confirmed by SULTAN ZUNIGA M.D. ([id number]) on 09/23/2024 9:49:04 PM [facility] 09/23/2024 4:46 PM CDT 09/23/2024 9:49 PM CDT us Samuel Bowen MD ECG ORDERABLES Fin al Result [facility] * eGFR (09/23/2024 4:27 PM CDT) Pathologist [facility] eGFR 88 >=60 mL/min/1. 73 m2 Comment: [...] was last reviewed 2021. Testing performed by: [facility], [address] [place] [address], [place]., [address] Blood 09/23/2024 4:27 PM CDT 09/23/2024 4:39 PM CDT us Deisy MARQUEZ LAB BLOOD ORDERABLES Final Resu lt TAWNYA 0779 [facility] Department [place] [address] * (ABNORMAL) Differential, auto (09/23/2024 4:27 PM CDT) Neutrophil abs 7.2(H) 1.5 - 6.5 K/cumm Comment:Testing performed by : [address] [address] Imm gran abs 0.0 0.0 - 0.1 K/cumm TAWNYA Comment:Testing performed by : [address] [address] Lymphocyte abs 2.4 0.8 - 3.3 K/cumm TAWNYA Comment:Testing performed by : [address] [address] Monocyte abs 0.8 0.2 - 0.8 K/cumm TAWNYA Comment:Testing performed by : [address] [address] Eosinophil abs 0.1 0.0 - 0.5 K/cumm TAWNYA Comment:Testing performed by : [address] [address] Basophil abs 0.1 0.0 - 0.1 K/cumm TAWNYA Comment:Testing performed by : [address] [address] Neutrophil pct 68.6 % TAWNYA Comment: Interpretive Data Percent cell count reference ranges are not reported, since discordance with absolute values may lead to misinterpretation of CBC data. Current Interpretive Data was last revised on 2017. Testing performed by: [address] [address] Imm gran pct 0.4 % TAWNYA Comment: Interpretive Data Percent cell count reference ranges are not reported, since discordance with absolute values may lead to misinterpretation of CBC data. Current Interpretive Data was last revised on 2017. Testing performed by: [address] [address] Lymphocyte pct 22.5 % [facility] Comment: Interpretive Data Percent cell count reference ranges are not reported, since discordance with absolute values may lead to misinterpretation of CBC data. Current Interpretive Data was last revised on 2017. Testing performed by: [address] [address] Monocyte pct 7.1 % [facility] Comment: Interpretive Data Percent cell count reference ranges are not reported, since discordance with absolute values may lead to misinterpretation of CBC data. Current Interpretive Data was last revised on 2017. Testing performed by: [address] [address] Eosinophil pct 0.7 % [facility] Comment: Interpretive Data Percent cell count reference ranges are not reported, since discordance with absolute values may lead to misinterpretation of CBC data. Current Interpretive Data was last revised on 2017. Testing performed by: [address] [address] Basophil pct 0.7 % [facility] Comment: Interpretive Data Percent cell count reference ranges are not reported, since discordance with absolute values may lead to misinterpretation of CBC data. Current Interpretive Data was last revised on 2017. Testing performed by: [address] [address] Blood 09/23/2024 4:27 PM CDT 09/23/2024 4:39 PM CDT us Samuel Bowen MD LAB BLOOD ORDERABLE S Final Result [facility] Department [place] [address] * (ABNORMAL) CBC with auto differential (09/23/2024 4:27 PM CDT) WBC 10.5(H) 3.8 - 9.9 K/cumm Comment:Testing performed by : [address] [address] Hgb 11.9 11.9 - 15.5 g/dL TAWNYA Comment:Testing performed by : [address] [address] Hct 40.4 35.6 - 45.5 % TAWNYA Comment:Testing performed by : [address] [address] Plt 517(H) 150 - 400 K/cumm TAWNYA Comment:Testing performed by : [address] [address] MPV 9.3 9.1 - 12.3 fL TAWNYA Comment:Testing performed by : [address], [address] RBC 4.93 3.90 - 5.20 M/cumm TAWNYA Comment:Testing performed by : [address] [address] MCV 81.9 81.3 - 96.4 fL TAW[facility]A Comment:Testing performed by : [address] [address] MCH 24.1(L) 27.1 - 33.3 pg TAWNYA Comment:Testing performed by : [address] [address] MCHC 29.5(L) 32.3 - 35.7 g/dL TAWNYA Comment:Testing performed by : [address], [address] RDW CV 15.6(H) 11.1 - 14.9 % TAWNYA Comment:Testing performed by : [address] [address] RDW SD 46.5 35.7 - 48.1 fL TAWNYA Comment:Testing performed by : [address] [address] NRBC abs 0.00 0.00 - 0.01 K/cumm TAWNYA Comment:Testing performed by : [address], [address] Blood 09/23/2024 4:27 PM CDT 09/23/2024 4:39 PM CDT us Samuel Bowen MD LAB BLOOD ORDERABLE S Final Result TAWNYA 9460 [facility] Department [place] [address] * Comprehensive metabolic panel (09/23/2024 4:27 PM CDT) Sodium 141 135 - 145 mmol/L Comment:Testing performed by : [address] [address] Potassium, pl 3.3 3.3 - 4.9 mmol/L TAWNYA Comment:Testing performed by : [address] [address] Chloride 104 97 - 110 mmol/L TAWNYA Comment:Testing performed by : [address] [address] CO2 22 22 - 32 mmol/L TAW[facility]A Comment:Testing performed by : [address] [address] Anion gap 15 2 - 15 mmol/L TAWNYA Comment:Testing performed by : [address] [address] BUN 11 6 - 25 mg/dL TAWNYA Comment:Testing performed by : [address] [address] Creatinine 0.89 0.60 - 1.10 mg/dL TAWNYA Comment:Testing performed by : [address] [address] Glucose 153 70 - 199 mg/dL TAWNYA [...] was last revised 2022. Testing performed by: [address] [address] Calcium 9.9 8.5 - 10.3 mg/dL TAWNYA Comment:Testing performed by : [address] [address] Bilirubin, total <0.2 0.1 - 1.2 mg/dL [facility]A Comment:Testing performed by : [address] [address] Protein, pl 8.0 6.5 - 8.5 g/dL TAW[facility]A Comment:Testing performed by : [address] [address] Albumin 4.6 3.5 - 5.0 g/dL TAWNYA Comment:Testing performed by : [address] [address] Alk phos 84 40 - 130 Units/L TAWNYA Comment:Testing performed by : [address] [address] ALT 42 7 - 45 Units/L TAW[facility]A Comment:Testing performed by : [address] [address] AST 27 10 - 45 Units/L [facility] Comment:Testing performed by : [address] [address] Blood 09/23/2024 4:27 PM CDT 09/23/2024 4:39 PM CDT us Samuel Bowen MD LAB BLOOD ORDERABLE S Final Result [place] [id number] [facility] Department [place] [address] * (ABNORMAL) CBC without differential (09/05/2024 4:27 AM SUPERVISOR CONCR[employer] FABRICATING) [facility] WBC 14.9(H) 3.8 - 9.9 K/cumm Comment:Testing performed by : [address] [address] Hgb 10.8(L) 11.9 - 15.5 g/dL TAWNYA Comment:Testing performed by : [address], [address] Hct 35.6 35.6 - 45.5 % TAWNYA Comment:Testing performed by : [address] [address] Plt 414(H) 150 - 400 K/cumm TAWNYA Comment:Testing performed by : [address] [address] MPV 9.4 9.1 - 12.3 fL [facility]W[place]A Comment:Testing performed by : [address], [address] RBC 4.35 3.90 - 5.20 M/cumm TAWNYA Comment:Testing performed by : [address] [address] MCV 81.8 81.3 - 96.4 fL [facility]W[place]A Comment:Testing performed by : [address] [address] MCH 24.8(L) 27.1 - 33.3 pg TAWNYA Comment:Testing performed by : [address] [address] MCHC 30.3(L) 32.3 - 35.7 g/dL TAW[place]A Comment:Testing performed by : [address] [address] RDW CV 15.4(H) 11.1 - 14.9 % TAWNYA Comment:Testing performed by : [address], [address] RDW SD 46.2 35.7 - 48.1 fL TAWNYA Comment:Testing performed by : [address] [address] NRBC abs 0.00 0.00 - 0.01 K/cumm TAWNYA Comment:Testing performed by : [address] [address] Blood 09/05/2024 4:27 AM SUPERVISOR [employer]CR[employer] F[employer]RICATING 09/05/2024 5:03 AM SUPERVISOR [employer]CR[employer] F[employer]RICATING us Venkat Rudd MD LAB BLOOD ORDERABLES Fi nal Result [facility] Department [place] [address] * (ABNORMAL) CBC without differential (09/04/2024 4:25 AM SUPERVISOR CONCR[employer] FABRICATING) WBC 14.5(H) 3.8 - 9.9 K/cumm Comment:Testing performed by : [address] [address] Hgb 10.5(L) 11.9 - 15.5 g/dL TAW[place]A Comment:Testing performed by : [address], [address] Hct 35.4(L) 35.6 - 45.5 % TAWNYA Comment:Testing performed by : [address] [address] Plt 392 150 - 400 K/cumm TAWNYA Comment:Testing performed by : [address], [address] MPV 9.2 9.1 - 12.3 fL TAW[facility]A Comment:Testing performed by : [address], [address] RBC 4.27 3.90 - 5.20 M/cumm TAWNYA Comment:Testing performed by : [address] [address] MCV 82.9 81.3 - 96.4 fL [facility]A Comment:Testing performed by : [address] [address] MCH 24.6(L) 27.1 - 33.3 pg TAWNYA Comment:Testing performed by : [address] [address] MCHC 29.7(L) 32.3 - 35.7 g/dL [facility]A Comment:Testing performed by : [address] [address] RDW CV 15.6(H) 11.1 - 14.9 % TAWNYA Comment:Testing performed by : [address] [address] RDW SD 47.6 35.7 - 48.1 fL TAWNYA MILLS Comment:Testing performed by : [address] [address] NRBC abs 0.00 0.00 - 0.01 K/cumm TAWNYA MILLS Comment:Testing performed by : [address] [address] Blood 09/04/2024 4:25 AM SUPERVISOR [employer]ICATING 09/04/2024 4:41 AM SUPERVISOR [employer]CR[employer] F[employer]RIC[employer] us Venkat Rudd MD LAB BLOOD ORDERABLES Fi nal Result Performing Organization Address [facility]/ZIP Co de Phone Number [facility] 134[address] [facility] [employer] [place], [place] [id number] * Troponin T high-sensitivity 2-hour (09/01/2024 5:11 PM SUPERVISOR [employer] F[employer]RICATING) Trop T hs <6 <=14 ng/L Comment: Interpretive Data For further hscTnT resources including the diagnostic algorithm and an aid in interpretation, copy and paste this link: https://nrl.testcatalog.org/show/hsTrop Current Interpretive Data last revised 2020. Testing performed by: [address] [address] Trop T hs delta 0 ng/L TAWNYA MILLS Comment:Testing performed by : [address] [address] Trop T hs interp Insignificant TAWNYA MILLS Comment:Testing performed by : [address] [address] Blood 09/01/2024 5:11 PM SUPERVISOR [employer] F[employer]RICATING 09/01/2024 5:14 PM SUPERVISOR [employer]CR[employer] F[employer]RICATING us Wil Monteiro MD LAB BLOOD ORDERABLE S Final Result Performing Organization Address City/[facility]/ZIP Co de Phone Number [facility] 0[address] [facility] [place] [address] * Urinalysis reflex to microscopic and culture Urine (09/01/2024 4:58 PM SUPERVISOR CONCRETE [employer] FABRICATING) Color, ur Yellow Yellow Comment:Testing performed by : [address] [address] Clarity, ur Clear Clear TAWNYA Comment:Testing performed by : [address], [place]., [address] Specific gravity, ur 1.015 1.003 - 1.030 TAWNYA Comment:Testing performed by : [address], [place]., [address] pH, urine 7.0 TAWNYA Comment: Interpretive Data U rine pH is affected by diet, medications, systemic acid-base disturbances, and renal tubular function. pH may affect urinary stone formation. For example, urine pH below 6.0 may help reduce the tendency for calcium phosphate stones and pH greater than 6.0 may reduce the tendency for uric acid stone formation. Source: [facility] [employer] Current Interpretive Data was last revised on 2017 Testing performed by: [address] [address] Protein, ur ql Negative Negative TAWNYA Comment:Testing performed by : [address] [address] Glucose, ur ql Negative Negative TAW[facility]A Comment:Testing performed by : [address] [address] Ketones, ur Negative Negative [facility]W[place]A Comment:Testing performed by : [address] [address] Bilirubin, ur Negative Negative [facility]W[place]A Comment:Testing performed by : [address] [address] Blood, ur Negative Negative TAWNYA Comment:Testing performed by : [address], [place]., [address] Urobilinogen, ur <2.0 <2.0 mg/dL TAW[place]A Comment:Testing performed by : [address] [address] Nitrite, ur Negative Negative TAW[place]A Comment:Testing performed by : [address] [address] Leukocyte esterase, ur Negative Negative TAWNYA MILLS Comment:Testing performed by : [facility], [address] [place] [address]., [address] UA reflex comment Reflex conditions for microscopic UA and culture not met. TAWNYA MILLS Comment:Testing performed by : [facility], [address] [place] [address]., [address] Urine 09/01/2024 4:58 PM SUPERVISOR [employer]CR[employer] F[employer]RICATING 09/01/2024 4:59 PM SUPERVISOR CONCR[employer] FABRICATING us Wil Monteiro MD LAB MICROBIOLOGY - GENERAL ORDERABLES Final Result TAWNYA MILLS [address] [facility] Department [place] [address] * XR Chest 1 Vw Portable (09/01/2024 3:05 PM SUPERVISOR CONCR[employer]E [employer] FABRICATING) Anatomical Region Laterality Modality Body, Chest N/A Computed Radiogr aphy 09/01/2024 3:19 PM SUPERVISOR [employer]CR[employer]E [employer] FABRICATING Narrative 09/01/2024 3:22 PM SUPERVISOR CONCR[employer]E [employer] FABRICATING EXAM DESCRIPTION: XR CHEST 1 VIEW REASON FOR STUDY: allergic reaction Came to ED s/p anaphylactic reaction. Reports ate at [facility] broke out in hives and started having [...] Robi Arreola M.D. MZ: JEANNETTE Report ID: [id number] Reading Location: [id number] Procedure Note Robi Arreola MD - 09/01/2024 [...] Robi Arreola M.D. MZ: MZ Report ID: [id number] Reading Location: [id number] Wil Monteiro MD IMG XR PROCEDURES F inal Result * Troponin T high-sensitivity series (baseline, 2hr, 4hr, 6hr) (09/01/2024 2:59 PM SUPERVISOR CONCR[employer]E [employer] FABRICATING) Trop T hs <6 <=14 ng/L Comment: Interpretive Data For further hscTnT resources including the diagnostic algorithm and an aid in interpretation, copy and paste this link: https://nrl.testcatalog.org/show/hsTrop Current Interpretive Data last revised 2020. Testing performed by: [facility], [address] [place] [address]., [address] Blood 09/01/2024 2:59 PM SUPERVISOR CONCR[employer]E [employer] FABRICATING 09/01/2024 3:03 PM SUPERVISOR CONCR[employer]E [employer] FABRICATING us Wil Monteiro MD LAB BLOOD ORDERABLE S Final Result Performing Organization Address [facility] Co de Phone Number TAWNYA [id number] [place] [address] * eGFR (09/01/2024 2:59 PM SUPERVISOR CONCRETE STONE FABRICATING) eGFR >90 >=60 mL/min/1. 73 m2 Comment: [...] was last reviewed 2021. Testing performed by: [address] [address] Blood 09/01/2024 2:59 PM SUPERVISOR CONCRETE STONE FABRICATING 09/01/2024 3:03 PM SUPERVISOR CONCRETE STONE FABRICATING us Wil Monteiro MD LAB BLOOD ORDERABLE S Final Result TAWNYA 2[address] [facility] Department of [employer] [place], [place] [id number] * (ABNORMAL) Differential, auto (09/01/2024 2:59 PM SUPERVISOR CONCRETE STONE FABRICATING) Neutrophil abs 14.4(H) 1.5 - 6.5 K/cumm Comment:Testing performed by : [address] [address] Imm gran abs 0.2(H) 0.0 - 0.1 K/cumm CERNER Comment:Testing performed by : [address] [address] Lymphocyte abs 1.4 0.8 - 3.3 K/cumm CERNER Comment:Testing performed by : [address] [address] Monocyte abs 0.4 0.2 - 0.8 K/cumm [facility] Comment:Testing performed by : [address] [address] Eosinophil abs 0.0 0.0 - 0.5 K/cumm [facility] Comment:Testing performed by : [address] [address] Basophil abs 0.1 0.0 - 0.1 K/cumm [facility] Comment:Testing performed by : [address] [address] Neutrophil pct 87.3 % [facility] Comment: Interpretive Data Percent cell count reference ranges are not reported, since discordance with absolute values may lead to misinterpretation of CBC data. Current Interpretive Data was last revised on 2017. Testing performed by: [address] [address] Imm gran pct 0.9 % [facility] Comment: Interpretive Data Percent cell count reference ranges are not reported, since discordance with absolute values may lead to misinterpretation of CBC data. Current Interpretive Data was last revised on 2017. Testing performed by: [address] [address] Lymphocyte pct 8.7 % CERNER Comment: Interpretive Data Percent cell count reference ranges are not reported, since discordance with absolute values may lead to misinterpretation of CBC data. Current Interpretive Data was last revised on 2017. Testing performed by: [address] [address] Monocyte pct 2.7 % CERNER Comment: Interpretive Data Percent cell count reference ranges are not reported, since discordance with absolute values may lead to misinterpretation of CBC data. Current Interpretive Data was last revised on 2017. Testing performed by: [address] [address] Eosinophil pct 0.1 % TAWNYA Comment: Interpretive Data Percent cell count reference ranges are not reported, since discordance with absolute values may lead to misinterpretation of CBC data. Current Interpretive Data was last revised on 2017. Testing performed by: [address] [address] Basophil pct 0.3 % TAWNYA Comment: Interpretive Data Percent cell count reference ranges are not reported, since discordance with absolute values may lead to misinterpretation of CBC data. Current Interpretive Data was last revised on 2017. Testing performed by: [address] [address] Blood 09/01/2024 2:59 PM SUPERVISOR CONCRETE [employer]ONE FABRICATING 09/01/2024 3:03 PM SUPERVISOR CONCRETE [employer]ONE FABRICATING Wil Monteiro MD LAB BLOOD ORDERABLE S Final Result Performing Organization Address City/[facility]/ZIP Co de Phone Number [address] [employer] [place] [address] * Thyroid Function [place] (09/01/2024 2:59 PM SUPERVISOR CONCRETE STONE FABRICATING) Pathologist [facility] TSH 0.80 0.30 - 4.20 mcIUnit/mL Comment:Testing performed by : [address] [address] Blood 09/01/2024 2:59 PM SUPERVISOR CONCRETE STONE FABRICATING 09/01/2024 3:03 PM SUPERVISOR CONCRETE STONE FABRICATING Wil Monteiro MD LAB BLOOD ORDERABLE S Final Result [address] [place] [address] * (ABNORMAL) CBC with auto differential (09/01/2024 2:59 PM SUPERVISOR CONCRETE STONE FABRICATING) Pathologist [facility] WBC 16.5(H) 3.8 - 9.9 K/cumm Comment:Testing performed by : [address] [address] Hgb 11.3(L) 11.9 - 15.5 g/dL [facility] Comment:Testing performed by : [address] [address] Hct 36.4 35.6 - 45.5 % CERNER Comment:Testing performed by : [address] [address] Plt 465(H) 150 - 400 K/cumm CERNER Comment:Testing performed by : [address] [address] MPV 9.0(L) 9.1 - 12.3 fL [facility] Comment:Testing performed by : [address] [address] RBC 4.54 3.90 - 5.20 M/cumm [facility] Comment:Testing performed by : [address] [address] MCV 80.2(L) 81.3 - 96.4 fL CERNER Comment:Testing performed by : [address] [address] MCH 24.9(L) 27.1 - 33.3 pg [facility] Comment:Testing performed by : [address] [address] MCHC 31.0(L) 32.3 - 35.7 g/dL [facility] Comment:Testing performed by : [address], [address] RDW CV 15.1(H) 11.1 - 14.9 % CERNER Comment:Testing performed by : [address], [address] RDW SD 44.1 35.7 - 48.1 fL [facility] Comment:Testing performed by : [address] [address] NRBC abs 0.00 0.00 - 0.01 K/cumm [facility]A Comment:Testing performed by : [address] [address] Blood 09/01/2024 2:59 PM SUPERVISOR CONCRETE STONE FABRICATING 09/01/2024 3:03 PM SUPERVISOR CONCRETE STONE FABRICATING Wil Monteiro MD LAB BLOOD ORDERABLE S Final Result Performing Organization Address [facility] de Phone Number [address] [address] * Magnesium (09/01/2024 2:59 PM SUPERVISOR CONCRETE STONE FABRICATING) Pathologist [facility] Magnesium 2.0 1.4 - 2.5 mg/dL Comment:Testing performed by : [address] [address] Blood 09/01/2024 2:59 PM SUPERVISOR CONCRETE STONE FABRICATING 09/01/2024 3:03 PM SUPERVISOR CONCRETE STONE FABRICATING Wil Monteiro MD LAB BLOOD ORDERABLE S Final Result Performing Organization Address [facility] Phone Number [address] [address] * Basic metabolic panel (09/01/2024 2:59 PM SUPERVISOR CONCRETE STONE FABRICATING) [facility] Sodium 140 135 - 145 mmol/L Comment:Testing performed by : [address] [address] Potassium, pl 4.0 3.3 - 4.9 mmol/L TAWNYA Comment:Testing performed by : [address] [address] Chloride 103 97 - 110 mmol/L TAW[facility]A Comment:Testing performed by : [address] [address] CO2 23 22 - 32 mmol/L TAWNYA Comment:Testing performed by : [address] [address] Anion gap 14 2 - 15 mmol/L [facility]A Comment:Testing performed by : [address] [address] BUN 17 6 - 25 mg/dL [facility]A Comment:Testing performed by : [address] [address] Creatinine 0.68 0.60 - 1.10 mg/dL [facility]A Comment:Testing performed by : [address] [address] Glucose 147 70 - 199 mg/dL TAWNYA [...] was last revised 2022. Testing performed by: [address] [address] Calcium 9.3 8.5 - 10.3 mg/dL TAWNYA Comment:Testing performed by : [address] [address] Blood 09/01/2024 2:59 PM [employer] 09/01/2024 3:03 PM [employer] us Wil Monteiro MD LAB BLOOD ORDERABLE S Final Result Performing Organization Address City/State/[facility] Co de Phone Number TAWNYA [address] [facility] Department [place] [address] * POCT hCG, urine (09/01/2024 2:28 PM [employer]) HCG, ur, POC Negative Negative Lot Number [id number] QC Backgroud Clear Acceptable QC Control Line Acceptable Urine 09/01/2024 2:28 PM [employer] Wil Monteiro MD POINT OF CARE TEST ORDERABLES Final Result * ECG 12 lead (09/01/2024 1:54 PM [employer]) Pathologist [facility] Ventricular Rate EKG/Min 153 BPM [facility] Atrial Rate 153 BPM [facility] HI-Interval (MSEC) 116 ms [facility] QRS-Interval (MSEC) 88 ms [facility] QT-Interval (MSEC) 328 ms [facility] QTc 523 ms [facility] P [place] 57 degrees [facility] R [place] 67 degrees [facility] T [place] 44 degrees [facility] Diagnosis Sinus tachycardia Otherwise normal ECG When compared with ECG of 20-AUG-2024 02:26, T wave inversion no longer evident in Anterior leads Confirmed by LAWRENCE YIP M.D. ([id number]) on 09/02/2024 9:10:53 AM [facility] 09/01/2024 1:54 PM [employer] 09/02/2024 9:10 AM [employer] us Wil Monteiro MD ECG ORDERABLES Fin al Result [facility] [place] * eGFR (08/22/2024 7:57 AM [employer]) [facility] eGFR >90 >=60 mL/min/1. 73 m2 Comment: [...] was last reviewed 2021. Testing performed by: [facility], [address] [place] [address]., [address] Blood 08/22/2024 7:57 AM [employer] 08/22/2024 8:11 AM [employer] us José Luis Tripp MD LAB BLOOD ORDERABLES Final Re sult [facility] [address] [facility] Department [place] [address] * (ABNORMAL) CBC without differential (08/22/2024 7:57 AM [employer]) WBC 11.8(H) 3.8 - 9.9 K/cumm Comment:Testing performed by : [address] [address] Hgb 10.4(L) 11.9 - 15.5 g/dL TAWNYA Comment:Testing performed by : [address] [address] Hct 33.4(L) 35.6 - 45.5 % TAWNYA Comment:Testing performed by : [address] [address] Plt 450(H) 150 - 400 K/cumm TAWNYA Comment:Testing performed by : [address] [address] MPV 9.0(L) 9.1 - 12.3 fL [facility]A Comment:Testing performed by : [address] [address] RBC 4.12 3.90 - 5.20 M/cumm TAW[facility]A Comment:Testing performed by : [address] [address] MCV 81.1(L) 81.3 - 96.4 fL [facility]A Comment:Testing performed by : [address] [address] MCH 25.2(L) 27.1 - 33.3 pg [facility]A Comment:Testing performed by : [address] [address] MCHC 31.1(L) 32.3 - 35.7 g/dL [facility]A Comment:Testing performed by : [address] [address] RDW CV 15.5(H) 11.1 - 14.9 % [facility] [place] Comment:Testing performed by : [address] [address] RDW SD 45.6 35.7 - 48.1 fL [facility] [place] Comment:Testing performed by : [address] [address] NRBC abs 0.00 0.00 - 0.01 K/cumm [facility] [place] Comment:Testing performed by : [address] [address] Blood 08/22/2024 7:57 AM [employer] 08/22/2024 8:11 AM [employer] us Jorje Huynh MD LAB BLOOD ORDERABLES Final Result TAWNYA [address] Department [place] [address] * Basic metabolic panel (08/22/2024 7:57 AM [employer]) Sodium 137 135 - 145 mmol/L Comment:Testing performed by : [address] [address] Potassium, pl 3.7 3.3 - 4.9 mmol/L [facility] [place] Comment:Testing performed by : [address] [address] Chloride 103 97 - 110 mmol/L [facility]A Comment:Testing performed by : [address] [address] CO2 23 22 - 32 mmol/L [facility] Comment:Testing performed by : [address] [address] Anion gap 11 2 - 15 mmol/L [facility] Comment:Testing performed by : [address] [address] BUN 16 6 - 25 mg/dL [facility] [place] Comment:Testing performed by : [address] [address] Creatinine 0.71 0.60 - 1.10 mg/dL [facility]A Comment:Testing performed by : [address] [address] Glucose 102 70 - 199 mg/dL TAWNYA [...] was last revised 2022. Testing performed by: [address] [address] Calcium 9.0 8.5 - 10.3 mg/dL [facility]A Comment:Testing performed by : [address] [address] Blood 08/22/2024 7:57 AM [employer] 08/22/2024 8:11 AM [employer] us José Luis Tripp MD LAB BLOOD ORDERABLES Final Re sult TAWNYA [address] [facility] Department of Laboratories [place], [place] [id number] * eGFR (08/21/2024 7:53 AM [employer]) eGFR >90 >=60 mL/min/1. 73 m2 Comment: [...] was last reviewed 2021. Testing performed by: [address] [address] Blood 08/21/2024 7:53 AM [employer] 08/21/2024 8:14 AM [employer] us José Luis Tripp MD LAB BLOOD ORDERABLES Final Re sult [facility] Department [place] [address] * (ABNORMAL) CBC without differential (08/21/2024 7:53 AM [employer]) WBC 11.9(H) 3.8 - 9.9 K/cumm Comment:Testing performed by : [address] [address] Hgb 11.2(L) 11.9 - 15.5 g/dL TAW[facility]A Comment:Testing performed by : [address] [address] Hct 35.2(L) 35.6 - 45.5 % TAWNYA Comment:Testing performed by : [address] [address] Plt 481(H) 150 - 400 K/cumm TAWNYA Comment:Testing performed by : [address] [address] MPV 9.0(L) 9.1 - 12.3 fL [facility] [place] Comment:Testing performed by : [address] [address] RBC 4.41 3.90 - 5.20 M/cumm [facility] [place] Comment:Testing performed by : [address] [address] MCV 79.8(L) 81.3 - 96.4 fL [facility] [place] Comment:Testing performed by : [address] [address] MCH 25.4(L) 27.1 - 33.3 pg [facility] [place] Comment:Testing performed by : [address] [address] MCHC 31.8(L) 32.3 - 35.7 g/dL [facility] [place] Comment:Testing performed by : [address] [address] RDW CV 15.6(H) 11.1 - 14.9 % [facility] [place] Comment:Testing performed by : [address] [address] RDW SD 44.8 35.7 - 48.1 fL [facility] [place] Comment:Testing performed by : [address] [address] NRBC abs 0.00 0.00 - 0.01 K/cumm [facility] [place] Comment:Testing performed by : [address] [address] Blood 08/21/2024 7:53 AM [employer] 08/21/2024 8:15 AM [employer] Jorje Huynh MD LAB BLOOD ORDERABLES Final Result [facility] Department of Laboratories [place], [place] [id number] * Basic metabolic panel (08/21/2024 7:53 AM [employer]) Sodium 139 135 - 145 mmol/L Comment:Testing performed by : [address] [address] Potassium, pl 3.5 3.3 - 4.9 mmol/L [facility] [place] Comment:Testing performed by : [address] [address] Chloride 102 97 - 110 mmol/L [facility] [place] Comment:Testing performed by : [address] [address] CO2 23 22 - 32 mmol/L [facility] [place] Comment:Testing performed by : [address] [address] Anion gap 14 2 - 15 mmol/L [facility]A Comment:Testing performed by : [address] [address] BUN 11 6 - 25 mg/dL [facility]A Comment:Testing performed by : [address] [address] Creatinine 0.70 0.60 - 1.10 mg/dL [facility]A Comment:Testing performed by : [address] [address] Glucose 91 70 - 199 mg/dL TAWNYA [...] was last revised 2022. Testing performed by: [address] [address] Calcium 9.4 8.5 - 10.3 mg/dL [facility]A Comment:Testing performed by : [address] [address] Blood 08/21/2024 7:53 AM [employer] 08/21/2024 8:14 AM [employer] us José Luis Tripp MD LAB BLOOD ORDERABLES Final Re sult TAWNYA [address] [facility] Department [place] [address] * HI CLOSED TX TEMPOROMANDIBULAR DISLOCATION 1ST/SBSQ (08/20/2024 1:18 PM [employer]) Narrative Abhay Velez MD - 08/20/2024 1:18 PM [employer] Abhay Velez MD 08/20/2024 1:33 PM Orthopedic Injury Treatment - Jaw Dislocation Date/Time: 08/20/2024 1:18 PM Performed by: Abhay Velez MD Authorized by: Abhay Velez MD RN Notified of Procedure: yes Informed consent: Risks, benefits, alternatives discussed and patient/player services representative/guardian agrees and accepts Patient's stated name/ [...] Result * Procedural Sedation (08/20/2024 1:18 PM [employer]) Narrative Abhay Velez MD - 08/20/2024 1:18 PM [employer] Abhay Velez MD 08/20/2024 1:32 PM Procedural Sedation Date/Time: 08/20/2024 1:18 PM Performed by: Abhay Velez MD Authorized by: Abhay Velez MD Huslia Protocol: RN Notified of Procedure: yes Informed consent: Risks, benefits, alternatives discussed and patient/player services representative/guardian agrees and accepts Patient's stated name/ [...] Less than 4 Views (08/20/2024 11:41 AM [employer]) Anatomical Region Laterality Modality Head and Neck N/A Computed Radiogr aphy 08/20/2024 11:5 5 AM [employer] Narrative 08/20/2024 12:02 PM [employer] EXAM DESCRIPTION: XR MANDIBLE LESS THAN 4 [...] Rohan Ramos M.D. LB: EDGARDO Report ID: [id number] Reading Location: [id number] Procedure Note Rohan Ramos MD - 08/20/2024 [...] Rohan Ramos M.D. LB: EDGARDO Report ID: [id number] Reading Location: [id number] us Jorje Huynh MD IMG XR PROCEDURES Final Re sult * Sepsis Lactate w/ Reflex (08/20/2024 8:24 AM SU[employer]) [facility] Sepsis Lactate 1.3 0.7 - 2.0 mmol/L Comment:Testing performed by : [address] [address] Blood 08/20/2024 8:24 AM [employer] 08/20/2024 8:29 AM [employer] us Erik Westbrook NP LAB BLOOD ORDERABLES Final Resul t Performing Organization Address [facility] de Phone Number [address] [place] [address] * (ABNORMAL) Sepsis Lactate w/ Reflex (08/20/2024 3:25 AM [employer]) [facility] Sepsis Lactate 2.6(C) 0.7 - 2.0 mmol/L Comment: Critical Result called to and read back by [email or web address], DATE: 2024-08-20 04:23:15 BY: [id number] Testing performed by: [address] [address] Blood 08/20/2024 3:25 AM [employer] 08/20/2024 4:00 AM [employer] Erik Westbrook NP LAB BLOOD ORDERABLES Final Resul t Performing Organization Address City/[facility] Co de Phone Number [address] [place] [address] * eGFR (08/20/2024 3:25 AM SUPER[employer]OR [employer]) [facility] eGFR >90 >=60 mL/min/1. 73 m2 Comment: [...] was last reviewed 2021. Testing performed by: [address] [address] Blood 08/20/2024 3:25 AM [employer] 08/20/2024 4:00 AM [employer] us José Luis Tripp MD LAB BLOOD ORDERABLES Final Re sult [facility]WNYA [address] [facility] Department [place] [address] * (ABNORMAL) CBC without differential (08/20/2024 3:25 AM [employer]) WBC 12.4(H) 3.8 - 9.9 K/cumm Comment:Testing performed by : [address] [address] Hgb 10.3(L) 11.9 - 15.5 g/dL [facility] [place] Comment:Testing performed by : [address] [address] Hct 32.7(L) 35.6 - 45.5 % [facility] [place] Comment:Testing performed by : [address] [address] Plt 467(H) 150 - 400 K/cumm [facility] [place] Comment:Testing performed by : [address] [address] MPV 9.1 9.1 - 12.3 fL [facility] [place] Comment:Testing performed by : [address] [address] RBC 4.09 3.90 - 5.20 M/cumm [facility] [place] Comment:Testing performed by : [address] [address] MCV 80.0(L) 81.3 - 96.4 fL [facility]A Comment:Testing performed by : [address] [address] MCH 25.2(L) 27.1 - 33.3 pg TAWNYA Comment:Testing performed by : [address] [address] MCHC 31.5(L) 32.3 - 35.7 g/dL [facility]A Comment:Testing performed by : [address] [address] RDW CV 15.1(H) 11.1 - 14.9 % [facility]A Comment:Testing performed by : [address] [address] RDW SD 43.8 35.7 - 48.1 fL [facility]A Comment:Testing performed by : [address] [address] NRBC abs 0.00 0.00 - 0.01 K/cumm TAWNYA Comment:Testing performed by : [address] [address] Blood 08/20/2024 3:25 AM [employer] 08/20/2024 4:00 AM [employer] us José Luis Tripp MD LAB BLOOD ORDERABLES Final Re sult [facility] [place] [address] [facility] Department [place] [address] * (ABNORMAL) Basic metabolic panel (08/20/2024 3:25 AM SUPER[employer]OR [employer]) [facility] Sodium 138 135 - 145 mmol/L Comment:Testing performed by : [address], [place]., [address] Potassium, pl 4.4 3.3 - 4.9 mmol/L TAWNYA Comment: Hemolyzed; Potassium value may be falsely elevated by as much as 1.0 mmol/L. Suggest redraw and reanalysis. Testing performed by: [address], [place]., [address] Chloride 104 97 - 110 mmol/L [facility]A Comment:Testing performed by : [address], [place]., [address] CO2 20(L) 22 - 32 mmol/L [facility] Comment:Testing performed by : [address], [place]., [address] Anion gap 14 2 - 15 mmol/L [facility] Comment:Testing performed by : [address], [place]., [address] BUN 8 6 - 25 mg/dL [facility] Comment:Testing performed by : [address], [place]., [address] Creatinine 0.64 0.60 - 1.10 mg/dL [facility] Comment:Testing performed by : [address] [address] Glucose 179 70 - 199 mg/dL [facility] Comment: Interpretive Data Fasting glucose >/= [...] was last revised 2022. Testing performed by: [address], [place]., [address] Calcium 9.5 8.5 - 10.3 mg/dL [facility]A Comment:Testing performed by : [address] [address] Blood 08/20/2024 3:25 AM [employer] 08/20/2024 4:00 AM [employer] us José Luis Tripp MD LAB BLOOD ORDERABLES Final Re sult Performing Organization Address City/[facility]/ZIP Co de Phone Number TAWNYA [address] [facility] Department [place] [address] * ECG 12 lead (08/20/2024 2:26 AM SUPER[employer]) Ventricular Rate EKG/Min 148 BPM [facility] Atrial Rate 148 BPM [facility] HI-Interval (MSEC) 114 ms [facility] QRS-Interval (MSEC) 100 ms [facility] QT-Interval (MSEC) 336 ms [facility] QTc 527 ms [facility] P [place]ilton 51 degrees [facility] R [place] 73 degrees [facility] T [place] 35 degrees [facility] Diagnosis Sinus tachycardia Incomplete right bundle branch block Nonspecific T wave abnormality Abnormal ECG When compared with ECG of 19-AUG-2024 20:25, No significant change was found Confirmed by BELIA CHU M.D. ([id number]) on 08/21/2024 5:20:17 AM [facility] 08/20/2024 2:26 AM [employer] 08/21/2024 5:20 AM [employer] us Jorje Huynh MD ECG ORDERABLES Final Resu lt Performing Organization Address City/[facility]/ZIP Co de Phone Number [facility] * (ABNORMAL) Sepsis Lactate w/ Reflex (08/19/2024 8:52 PM [employer]) Sepsis Lactate 2.4(C) 0.7 - 2.0 mmol/L Comment: Critical Result called to and read back by [email or web address], DATE: 2024-08-19 21:21:33 BY: [email or web address] Testing performed by: [facility], [address] [place] [address]., [address] Blood 08/19/2024 8:52 PM [employer] 08/19/2024 8:55 PM [employer] Erik Westbrook NP LAB BLOOD ORDERABLES Final Resul t TAW[facility]A [address] [facility] Department [place] [address] * ECG 12 lead (08/19/2024 8:25 PM [employer]PER[employer]OR [employer]) Ventricular Rate EKG/Min 129 BPM [facility] Atrial Rate 129 BPM [facility] HI-Interval (MSEC) 138 ms [facility] QRS-Interval (MSEC) 100 ms [facility] QT-Interval (MSEC) 316 ms [facility] QTc 462 ms [facility] P [place] 55 degrees [facility] R [place] 49 degrees [facility] T [place] 46 degrees [facility] Diagnosis Sinus tachycardia Possible Left atrial enlargement Incomplete right bundle branch block Borderline ECG When compared with ECG of 21-MAY-2024 14:20, No significant change was found Confirmed by ZANE SOROT M.D. ([id number]) on 08/20/2024 11:59:01 PM [facility] 08/19/2024 8:25 PM [employer] 08/20/2024 11:59 PM [employer] Erik Westbrook NP ECG ORDERABLES Final Result Performing Organization Address City/[facility] Co de Phone Number [facility] * eGFR (08/19/2024 8:20 PM [employer]PER[employer]OR [employer]) eGFR >90 >=60 mL/min/1. 73 m2 Comment: [...] was last reviewed 2021. Testing performed by: [address] [address] Blood 08/19/2024 8:20 PM [employer] 08/19/2024 8:24 PM [employer]OR [employer] us Erik Westbrook NP LAB BLOOD ORDERABLES Final Resul t [facility]A [address] [facility] Department [place] [address] * (ABNORMAL) Differential, auto (08/19/2024 8:20 PM [employer]) Neutrophil abs 17.7(H) 1.5 - 6.5 K/cumm Comment:Testing performed by : [address] [address] Imm gran abs 0.1 0.0 - 0.1 K/cumm TAWNYA Comment:Testing performed by : [address] [address] Lymphocyte abs 0.6(L) 0.8 - 3.3 K/cumm [facility] Comment:Testing performed by : [address] [address] Monocyte abs 0.4 0.2 - 0.8 K/cumm [facility] Comment:Testing performed by : [address] [address] Eosinophil abs 0.0 0.0 - 0.5 K/cumm [facility] Comment:Testing performed by : [address] [address] Basophil abs 0.1 0.0 - 0.1 K/cumm [facility] Comment:Testing performed by : [address] [address] Neutrophil pct 94.0 % [facility]A Comment: Interpretive Data Percent cell count reference ranges are not reported, since discordance with absolute values may lead to misinterpretation of CBC data. Current Interpretive Data was last revised on 2017. Testing performed by: [address] [address] Imm gran pct 0.4 % [facility] Comment: Interpretive Data Percent cell count reference ranges are not reported, since discordance with absolute values may lead to misinterpretation of CBC data. Current Interpretive Data was last revised on 2017. Testing performed by: [address] [address] Lymphocyte pct 3.1 % [facility] Comment: Interpretive Data Percent cell count reference ranges are not reported, since discordance with absolute values may lead to misinterpretation of CBC data. Current Interpretive Data was last revised on 2017. Testing performed by: [address] [address] Monocyte pct 2.2 % [facility] Comment: Interpretive Data Percent cell count reference ranges are not reported, since discordance with absolute values may lead to misinterpretation of CBC data. Current Interpretive Data was last revised on 2017. Testing performed by: [address] [address] Eosinophil pct 0.0 % [facility] Comment: Interpretive Data Percent cell count reference ranges are not reported, since discordance with absolute values may lead to misinterpretation of CBC data. Current Interpretive Data was last revised on 2017. Testing performed by: [address] [address] Basophil pct 0.3 % [facility] Comment: Interpretive Data Percent cell count reference ranges are not reported, since discordance with absolute values may lead to misinterpretation of CBC data. Current Interpretive Data was last revised on 2017. Testing performed by: [address] [address] Blood 08/19/2024 8:20 PM [employer] 08/19/2024 8:24 PM [employer]OR [employer] us Erik Westbrook NP LAB BLOOD ORDERABLES Final Resul t [facility] [address] [facility] Department [place] [address] * (ABNORMAL) CBC with auto differential (08/19/2024 8:20 PM [employer]) WBC 18.8(H) 3.8 - 9.9 K/cumm Comment:Testing performed by : [address] [address] Hgb 10.7(L) 11.9 - 15.5 g/dL [facility] Comment:Testing performed by : [address] [address] Hct 33.3(L) 35.6 - 45.5 % [facility] Comment:Testing performed by : [address] [address] Plt 502(H) 150 - 400 K/cumm [facility] Comment:Testing performed by : [address] [address] MPV 8.9(L) 9.1 - 12.3 fL [facility] Comment:Testing performed by : [address] [address] RBC 4.21 3.90 - 5.20 M/cumm [facility] Comment:Testing performed by : [address] [address] MCV 79.1(L) 81.3 - 96.4 fL [facility] Comment:Testing performed by : [address] [address] MCH 25.4(L) 27.1 - 33.3 pg [facility] Comment:Testing performed by : [address] [address] MCHC 32.1(L) 32.3 - 35.7 g/dL [facility] Comment:Testing performed by : [address] [address] RDW CV 14.9 11.1 - 14.9 % [facility] Comment:Testing performed by : [address] [address] RDW SD 43.0 35.7 - 48.1 fL [facility] [place] Comment:Testing performed by : [address] [address] NRBC abs 0.00 0.00 - 0.01 K/cumm [facility] [place] Comment:Testing performed by : [address] [address] Blood 08/19/2024 8:20 PM [employer] 08/19/2024 8:24 PM [employer]OR [employer] us Erik Westbrook NP LAB BLOOD ORDERABLES Final Resul t [facility] [address] [facility] Department [place] [address] * Comprehensive metabolic panel (08/19/2024 8:20 PM [employer]) Sodium 140 135 - 145 mmol/L Comment:Testing performed by : [address] [address] Potassium, pl 3.5 3.3 - 4.9 mmol/L [facility] Comment:Testing performed by : [address] [address] Chloride 104 97 - 110 mmol/L [facility] Comment:Testing performed by : [address] [address] CO2 23 22 - 32 mmol/L [facility] Comment:Testing performed by : [address] [address] Anion gap 13 2 - 15 mmol/L [facility] Comment:Testing performed by : [address] [address] BUN 11 6 - 25 mg/dL [facility] Comment:Testing performed by : [address] [address] Creatinine 0.71 0.60 - 1.10 mg/dL [facility] Comment:Testing performed by : [address] [address] Glucose 136 70 - 199 mg/dL [facility] [...] was last revised 2022. Testing performed by: [address] [address] Calcium 9.2 8.5 - 10.3 mg/dL [facility] Comment:Testing performed by : [address] [address] Bilirubin, total <0.2 0.1 - 1.2 mg/dL [facility] Comment:Testing performed by : [address] [address] Protein, pl 7.5 6.5 - 8.5 g/dL [facility] Comment:Testing performed by : [address] [address] Albumin 4.4 3.5 - 5.0 g/dL [facility] Comment:Testing performed by : [address] [address] Alk phos 74 40 - 130 Units/L TAWNYA Comment:Testing performed by : [address] [address] ALT 29 7 - 45 Units/L TAWNYA Comment:Testing performed by : [address] [address] AST 19 10 - 45 Units/L TAWNYA Comment:Testing performed by : [address] [address] Blood 08/19/2024 8:20 PM SUPERVISOR [employer]ICATING 08/19/2024 8:24 PM SUPERVISOR [employer]IC[employer] us Erik Westbrook NP LAB BLOOD ORDERABLES Final Resul t TAWNYA [address] [facility] Department [place] [address] * Critical Care (08/19/2024 5:13 PM SUPERVISOR [employer]CR[employer]IC[employer]) Narrative Erik Westbrook NP - 08/19/2024 5:13 PM SUPERVISOR CONCR[employer]RICATING Erik Westbrook NP 08/19/2024 9:10 PM Critical [...] Final Result from Last 3 Months Insurance [employer] OPEN ACCESS [facility] CHOICE PLUS [facility] CHOICE PLUS Advance Directives For more information, please contact: [phone] * Full Code (Latest Code Status on File) Date Activated Date Inactivated Comments 09/23/2024 7:38 PM 09/24/2024 5:41 PM * Full Code Date Activated Date Inactivated Comments 09/01/2024 7:30 PM 09/05/2024 3:39 PM * Full Code Date Activated Date Inactivated Comments 08/19/2024 9:45 PM 08/22/2024 5:15 PM Care Teams Crop Adjuster Relationship Specialty Start Date End Date Shannan Maldonado MD [phone] (work) PCP - General 09/07/19
--- OUTSIDE RECORDS SUMMARY | 2024-09-29 15:06 | XMS_ITS | Clinical Summary ---
Author Organization [facility] Address [address] [place] [address] Care Team Providers Care Firer Marine Name Role Phone Shannan Maldonado MD Primary [...] this topic Medical Devices Implanted Type Area Enrober Tender Device Identifier Shelf Expiration Date Model / Serial / Lot Staple Bone [id number] m 2m - [id number] Implanted:Qty: 1 on 02/16/2024 by Pranay Dejesus DPM at [facility] Sheila[employer]DANG [employer] Right: Foot [employer] 06/01/2027 [id number] / / [id number] Wire Ba .045in 4in - [id number] Implanted:Qty: 1 on 03/17/2023 by Pranay Dejesus DPM at [facility] Monique Right: Toe [employer] [id number] / / Description:Right second toe Insurance [facility] Care Teams Firer Marine Relationship Specialty Start Date End Date Shannan Maldonado MD PCP - General 05/06/16 Celio Jacques MD [address] [facility] [address] [place] [address] CARDIOLOGY 03/14/23
--- OUTSIDE RECORDS SUMMARY | 2024-09-29 15:06 | XMS_ITS | Continuity of Care Document ---
Author Organization [facility] Address [address] [facility] [address] [place] [address] Phone Care Team Providers Care Nuclear Physicist Name Role Phone No Information Unavailable Unavailable Advance Directives Directive Yes / No Effective Date File Name No Information Encounters Encounter Description Practice Location Reason(s) For Visit Diagnoses Date Provider Providers Copied on Encounter [facility], [address] [facility] [address], [place], [place], [id number], [place] tel:[phone] [facility] No Information No Information Family History Family Member Type Diagnosis Age At Onset No Information Payers Payer name Insurance type Covered democrat ID Authoriza tion(s) No Information Social History [...]
--- OUTSIDE RECORDS SUMMARY | 2024-09-29 15:06 | XMS_ITS | Encounter Summary ---
Author Organization [facility] Address [address] [place] [address] Phone Care Team Providers Care Neurosurgical Physician Assistant Name Role Phone Shannan Maldonado MD Primary Care Provider [phone] Encounter Details Date Type Department Care Team [...] on file Legal Sex Female 1:34 AM STEAM PRESS TENDER Gender Identity Female 07/01/2022 7:31 PM STEAM PRESS TENDER Sexual Orientation Not on file documented as of this encounter Plan of Treatment Not on file documented as of this encounter Procedures Procedure Name Priority Date/Time Associated Diagnosis Comments SCAN - LABS 10/28/2021 documented in this encounter Results * SCAN - LABS (10/28/2021) us Provider Scanning Final Result documented in this encounter Visit Diagnoses Not on filedocumented in this encounter Care Teams Neurosurgical Physician Assistant Relationship Specialty Start Date End Date Shannan Maldonado MD PCP - General 09/07/19 documented as of this encounter
--- OUTSIDE RECORDS SUMMARY | 2024-09-29 15:06 | XMS_ITS | Clinical Summary ---
Author Organization [facility] Geena Hernandez Extdamian nsion Address [address] [facility] [place] [address] Care Team Providers Care Home Attendant Name Role Phone Shannan Maldonado MD Primary Care Provider [phone] Allergies Active Allergy Reactions Criticality Noted Date [...] CDT - 09/28/2024 10:39 PM CDT Emergency [facility] Emergency Department [address] [place] [id number] Simran Frank MD Allergic reaction, initial encounter (Primary Dx) Discharge Disposition: Discharge to home or self care 09/27/2024 3:49 AM CDT - 09/27/2024 6:10 AM CDT Emergency [facility] Emergency Department [address] [place] [address] Ferdinand Rivera DO Allergic reaction, initial encounter (Primary Dx); Jaw pain Discharge Disposition: Discharge to home or self care 09/23/2024 4:55 PM CDT - 09/24/2024 1:30 PM CDT Hospital Encounter [facility] 4 Med Surg [address] [place] [address] Samuel Bowen MD Winston, Jared Todd, MD Ali, Md Shahin, MD Allergic reaction, initial encounter (Primary Dx) Discharge Disposition: Discharge to home or self care 09/01/2024 2:02 PM BASS MECHANISM MAKER - 09/05/2024 11:38 AM BASS MECHANISM MAKER Hospital Encounter [address] Surg [address] [place] [address] Wil Monteiro MD Gaspe Mudiyanselage, MD Tobin Vinson, Venkat Robin MD Allergic reaction, initial encounter (Primary Dx) Discharge Disposition: Discharge to home or self care 08/19/2024 4:39 PM BASS MECHANISM MAKER - 08/22/2024 1:15 PM BASS MECHANISM MAKER Hospital Encounter [facility] 5 [facility] Surg [address] [place] [address] José Luis Tripp MD Winston, Jorje Lester MD Anaphylaxis, initial encounter (Primary Dx) Discharge Disposition: Discharge to home or self care from Last 3 Months Surgical History Surgery Date Site/Laterality Comments [place] BIOPSY MUSCLE SUPERFICIAL Biopsy Muscle - 2006 (Added by Conv) KNEE SURGERY Knee Surgery - ligament reconstruction 10/2009 (Added by Conv) [place] RELEASE TARSAL TUNNEL Decompression Tarsal Tunnel Release Left Foot - (Added by TW Conv) [place] TONSILLECTOMY PRIMARY/SECONDARY <AGE 12 Tonsillectomy - (Added by TW Conv) WISDOM TOOTH EXTRACTION Oral Surgery Tooth Extraction [place] Tooth - (Added by TW Conv) [place] COLONOSCOPY FLX DX W/LEX J SPEC WHEN PFRMD Colonoscopy - (Added by TW Conv) [place] DILATION & CURETTAGE DX&/ THER NONOBSTETRIC Dilation [...] drink = 0.6 oz pur e alcohol) [facility] Utilities Answer Date Recorded In the past 12 months has th e electric, gas, oil, or water [employer] threatened to shut off services in your [...] week 09/24/2024 How often do you attend [facility] or quaker services? Never 09/24/2024 Do you belong to any clubs o r organizations such as yazidi groups, unions, fraternal or athletic groups, or [...] any time in the past 12 m [facility], were you homeless or living in [...] on file Legal Sex Female 1:34 AM BASS MECHANISM MAKER Gender Identity Female 07/01/2022 7:31 PM BASS MECHANISM MAKER Sexual Orientation Not on file Obstetrics History [...] CBC WITHOUT DIFFERENTIAL Routine 025 4:27 AM BASS MECHANISM MAKER CBC WITHOUT DIFFERENTIAL Routine 05 025 4:25 AM BASS MECHANISM MAKER TROPONIN T HIGH-SENSITIVITY 2-HOUR Timed 09/01/2024 5:11 PM BASS MECHANISM MAKER URINALYSIS AND REFLEX TO MICROSCOPIC AND CULTURE STAT 09/01/2024 4:58 PM BASS MECHANISM MAKER XR CHEST 1 VIEW ED 09/01/2024 3:05 PM BASS MECHANISM MAKER EGFR STAT 09/01/2024 2:59 PM BASS MECHANISM MAKER DIFFERENTIAL AUTO STAT 09/01/2024 2:5 9 PM BASS MECHANISM MAKER MAGNESIUM STAT 09/01/2024 2:59 PM BASS MECHANISM MAKER THYROID FUNCTION CASCADE STAT 025 2:59 PM BASS MECHANISM MAKER TROPONIN T HIGH-SENSITIVITY SERIES (BASELINE, 2HR, 4HR, 6HR) STAT 09/01/2024 2:59 PM BASS MECHANISM MAKER BASIC METABOLIC PANEL STAT 09/01/2024 2:59 PM BASS MECHANISM MAKER CBC WITH AUTO DIFFERENTIAL STAT 09/01/2024 2:59 PM BASS MECHANISM MAKER POCT HCG, URINE Routine 09/01/2024 2:28 PM BASS MECHANISM MAKER ECG 12-LEAD Routine 09/01/2024 1:54 PM BASS MECHANISM MAKER EGFR Routine 08/22/2024 7:57 AM BASS MECHANISM MAKER CBC WITHOUT DIFFERENTIAL Routine 025 7:57 AM BASS MECHANISM MAKER BASIC METABOLIC PANEL Routine 08/22/2024 7:57 AM BASS MECHANISM MAKER EGFR Routine 08/21/2024 7:53 AM BASS MECHANISM MAKER CBC WITHOUT DIFFERENTIAL Routine 025 7:53 AM BASS MECHANISM MAKER BASIC METABOLIC PANEL Routine 08/21/2024 7:53 AM BASS MECHANISM MAKER AZ CLOSED TX TEMPOROMANDIBULAR DISLOCATION 1ST/SBSQ Routine 08/20/2024 1:18 PM BASS MECHANISM MAKER ED MODERATE SEDATION Routine 08/20/2024 1:18 PM BASS MECHANISM MAKER XR MANDIBLE LESS THAN 4 VIEWS Critical/Life- Threatening 08/20/2024 11:41 AM BASS MECHANISM MAKER SEPSIS LACTATE WITH REFLEX Timed 08/20/2024 8:24 AM BASS MECHANISM MAKER EGFR Routine 08/20/2024 3:25 AM BASS MECHANISM MAKER CBC WITHOUT DIFFERENTIAL Routine 025 3:25 AM BASS MECHANISM MAKER BASIC METABOLIC PANEL Routine 08/20/2024 3:25 AM BASS MECHANISM MAKER SEPSIS LACTATE WITH REFLEX Timed 08/20/2024 3:25 AM BASS MECHANISM MAKER ECG 12-LEAD Routine 08/20/2024 2:26 AM BASS MECHANISM MAKER SEPSIS LACTATE WITH REFLEX STAT 08/19/2024 8:52 PM BASS MECHANISM MAKER ECG 12-LEAD STAT 08/19/2024 8:25 PM BASS MECHANISM MAKER EGFR STAT 08/19/2024 8:20 PM BASS MECHANISM MAKER DIFFERENTIAL AUTO STAT 08/19/2024 8:2 0 PM BASS MECHANISM MAKER CBC WITH AUTO DIFFERENTIAL STAT 08/19/2024 8:20 PM BASS MECHANISM MAKER COMPREHENSIVE METABOLIC PANEL STAT 08/19/2024 8:20 PM BASS MECHANISM MAKER ED CRITICAL CARE Routine 08/19/2024 5:13 PM BASS MECHANISM MAKER from Last 3 Months Results * XR [...] anaphylaxis, took her epi pen 15 min 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 Wheezes throughout upon auscultation with audible [...] by Shirley Reardon M.D. 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 Wheezes throughout upon auscultation with audible [...] Shirley Reardon M.D. SN: SN Report ID: [id number] Reading Location: [id number] Simran Frank MD IMG XR PROCEDURES Final [...] anaphylaxis, took her epi pen 15 min 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 Wheezes throughout upon auscultation with audible [...] Arnold Chahal M.D. 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 Wheezes throughout upon auscultation with audible [...] Arnold Chahal M.D. KH: GLADYS Report ID: [id number] Reading Location: [place] [id number] Simran Frank MD IMG XR PROCEDURES Final [...] was last reviewed 2021. Testing performed by: [facility], [address] [place] [address], [place]., [address] Blood 09/28/2024 8:10 PM CDT 09/28/2024 8:12 PM CDT us Simran Frank MD LAB BLOOD ORDERABLES Ruthy trivedi Result [facility] [address] [facility] Department [place] [address] * (ABNORMAL) Differential, auto (09/28/2024 8:10 PM CDT) Neutrophil abs 12.9(H) 1.5 - 6.5 K/cumm Comment:Testing performed by : [address] [address] Imm gran abs 0.2(H) 0.0 - 0.1 K/cumm [facility] Comment:Testing performed by : [address] [address] Lymphocyte abs 3.9(H) 0.8 - 3.3 K/cumm [facility] Comment:Testing performed by : [address] [address] Monocyte abs 1.6(H) 0.2 - 0.8 K/cumm [facility] Comment:Testing performed by : [address] [address] Eosinophil abs 0.0 0.0 - 0.5 K/cumm [facility] Comment:Testing performed by : [address] [address] Basophil abs 0.0 0.0 - 0.1 K/cumm [facility] Comment:Testing performed by : [address] [address] Neutrophil pct 69.2 % [facility] Comment: Interpretive Data Percent cell count reference ranges are not reported, since discordance with absolute values may lead to misinterpretation of CBC data. Current Interpretive Data was last revised on 2017. Testing performed by: [address] [address] Imm gran pct 1.1 % [facility] Comment: Interpretive Data Percent cell count reference ranges are not reported, since discordance with absolute values may lead to misinterpretation of CBC data. Current Interpretive Data was last revised on 2017. Testing performed by: [address] [address] Lymphocyte pct 20.7 % [facility] Comment: Interpretive Data Percent cell count reference ranges are not reported, since discordance with absolute values may lead to misinterpretation of CBC data. Current Interpretive Data was last revised on 2017. Testing performed by: [address] [address] Monocyte pct 8.7 % [facility] Comment: Interpretive Data Percent cell count reference ranges are not reported, since discordance with absolute values may lead to misinterpretation of CBC data. Current Interpretive Data was last revised on 2017. Testing performed by: [address] [address] Eosinophil pct 0.1 % [facility] Comment: Interpretive Data Percent cell count reference ranges are not reported, since discordance with absolute values may lead to misinterpretation of CBC data. Current Interpretive Data was last revised on 2017. Testing performed by: [address] [address] Basophil pct 0.2 % [facility] Comment: Interpretive Data Percent cell count reference ranges are not reported, since discordance with absolute values may lead to misinterpretation of CBC data. Current Interpretive Data was last revised on 2017. Testing performed by: [address] [address] Blood 09/28/2024 8:10 PM CDT 09/28/2024 8:11 PM CDT Simran Frank MD LAB BLOOD ORDERABLES Ruthy trivedi Result [facility] [address] [facility] Department [place] [address] * (ABNORMAL) CBC with auto differential (09/28/2024 8:10 PM CDT) WBC 18.6(H) 3.8 - 9.9 K/cumm Comment:Testing performed by : [address] [address] Hgb 11.3(L) 11.9 - 15.5 g/dL [facility] Comment:Testing performed by : [address] [address] Hct 36.0 35.6 - 45.5 % [facility] Comment:Testing performed by : [address] [address] Plt 601(H) 150 - 400 K/cumm [facility] Comment:Testing performed by : [address] [address] MPV 9.1 9.1 - 12.3 fL [facility] Comment:Testing performed by : [address] [address] RBC 4.56 3.90 - 5.20 M/cumm [facility] Comment:Testing performed by : [address] [address] MCV 78.9(L) 81.3 - 96.4 fL [facility] Comment:Testing performed by : [address] [address] MCH 24.8(L) 27.1 - 33.3 pg [facility] Comment:Testing performed by : [address] [address] MCHC 31.4(L) 32.3 - 35.7 g/dL [facility] Comment:Testing performed by : [address] [address] RDW CV 15.2(H) 11.1 - 14.9 % [facility] Comment:Testing performed by : [address], [address] RDW SD 43.6 35.7 - 48.1 fL [facility] Comment:Testing performed by : [address] [address] NRBC abs 0.03(H) 0.00 - 0.01 K/cumm [facility] Comment:Testing performed by : [address] [address] Blood 09/28/2024 8:10 PM CDT 09/28/2024 8:11 PM CDT us Simran Frank MD LAB BLOOD ORDERABLES Ruthy trivedi Result [facility] [address] [facility] Department [place] [address] * (ABNORMAL) Comprehensive metabolic panel (09/28/2024 8:10 PM CDT) Sodium 142 135 - 145 mmol/L Comment:Testing performed by : [address] [address] Potassium, pl 3.2(L) 3.3 - 4.9 mmol/L [facility] Comment:Testing performed by : [address] [address] Chloride 103 97 - 110 mmol/L [facility] Comment:Testing performed by : [address] [address] CO2 23 22 - 32 mmol/L [facility] Comment:Testing performed by : [address] [address] Anion gap 16(H) 2 - 15 mmol/L [facility] Comment:Testing performed by : [address] [address] BUN 18 6 - 25 mg/dL [facility] Comment:Testing performed by : [address] [address] Creatinine 0.80 0.60 - 1.10 mg/dL [facility] Comment:Testing performed by : [address] [address] Glucose 108 70 - 199 mg/dL [facility] [...] was last revised 2022. Testing performed by: [address] [address] Calcium 10.0 8.5 - 10.3 mg/dL [facility] Comment:Testing performed by : [address] [address] Bilirubin, total <0.2 0.1 - 1.2 mg/dL [facility] Comment:Testing performed by : [address] [address] Protein, pl 7.4 6.5 - 8.5 g/dL [facility] Comment:Testing performed by : [address], [place]., [address] Albumin 4.4 3.5 - 5.0 g/dL [facility] Comment:Testing performed by : [address] [address] Alk phos 77 40 - 130 Units/L [facility] Comment:Testing performed by : [address] [address] ALT 28 7 - 45 Units/L [facility] Comment:Testing performed by : [address] [address] AST 22 10 - 45 Units/L [facility] Comment:Testing performed by : [address] [address] Blood 09/28/2024 8:10 PM CDT 09/28/2024 8:12 PM CDT Simran Frank MD LAB BLOOD ORDERABLES Ruthy trivedi Result [facility] [address] [facility] Department of Laboratories [place], [place] [id number] * eGFR (09/27/2024 2:58 AM CDT) eGFR [...] was last reviewed 2021. Testing performed by: [address] [address] Blood 09/27/2024 2:58 AM CDT 09/27/2024 3:03 AM CDT us Ferdinand Rivera DO LAB BLOOD ORDERABLES Final Res ult [facility] Department [place] [address] * (ABNORMAL) Differential, auto (09/27/2024 2:58 AM CDT) Neutrophil abs 13.2(H) 1.5 - 6.5 K/cumm Comment:Testing performed by : [address] [address] Imm gran abs 0.1 0.0 - 0.1 K/cumm [facility] Comment:Testing performed by : [address] [address] Lymphocyte abs 1.7 0.8 - 3.3 K/cumm [facility] Comment:Testing performed by : [address] [address] Monocyte abs 1.0(H) 0.2 - 0.8 K/cumm [facility] Comment:Testing performed by : [address] [address] Eosinophil abs 0.0 0.0 - 0.5 K/cumm [facility] Comment:Testing performed by : [address] [address] Basophil abs 0.0 0.0 - 0.1 K/cumm [facility] Comment:Testing performed by : [address] [address] Neutrophil pct 82.5 % [facility] Comment: Interpretive Data Percent cell count reference ranges are not reported, since discordance with absolute values may lead to misinterpretation of CBC data. Current Interpretive Data was last revised on 2017. Testing performed by: [address] [address] Imm gran pct 0.8 % [facility] Comment: Interpretive Data Percent cell count reference ranges are not reported, since discordance with absolute values may lead to misinterpretation of CBC data. Current Interpretive Data was last revised on 2017. Testing performed by: [address] [address] Lymphocyte pct 10.4 % [facility] Comment: Interpretive Data Percent cell count reference ranges are not reported, since discordance with absolute values may lead to misinterpretation of CBC data. Current Interpretive Data was last revised on 2017. Testing performed by: [address] [address] Monocyte pct 6.2 % [facility] Comment: Interpretive Data Percent cell count reference ranges are not reported, since discordance with absolute values may lead to misinterpretation of CBC data. Current Interpretive Data was last revised on 2017. Testing performed by: [address] [address] Eosinophil pct 0.0 % [facility] Comment: Interpretive Data Percent cell count reference ranges are not reported, since discordance with absolute values may lead to misinterpretation of CBC data. Current Interpretive Data was last revised on 2017. Testing performed by: [address] [address] Basophil pct 0.1 % [facility] Comment: Interpretive Data Percent cell count reference ranges are not reported, since discordance with absolute values may lead to misinterpretation of CBC data. Current Interpretive Data was last revised on 2017. Testing performed by: [address] [address] Blood 09/27/2024 2:58 AM CDT 09/27/2024 3:03 AM CDT us Ferdinand Rivera DO LAB BLOOD ORDERABLES Final Res ult [facility] [address] [facility] Department [place] [address] * (ABNORMAL) CBC with auto differential (09/27/2024 2:58 AM CDT) WBC 15.9(H) 3.8 - 9.9 K/cumm Comment:Testing performed by : [address] [address] Hgb 11.3(L) 11.9 - 15.5 g/dL [facility] Comment:Testing performed by : [address] [address] Hct 36.7 35.6 - 45.5 % [facility] Comment:Testing performed by : [address] [address] Plt 532(H) 150 - 400 K/cumm [facility] Comment:Testing performed by : [address] [address] MPV 9.2 9.1 - 12.3 fL [facility] Comment:Testing performed by : [address] [address] RBC 4.50 3.90 - 5.20 M/cumm [facility] Comment:Testing performed by : [address] [address] MCV 81.6 81.3 - 96.4 fL [facility] Comment:Testing performed by : [address] [address] MCH 25.1(L) 27.1 - 33.3 pg [facility] Comment:Testing performed by : [address] [address] MCHC 30.8(L) 32.3 - 35.7 g/dL [facility]S Comment:Testing performed by : [address] [address] RDW CV 15.4(H) 11.1 - 14.9 % [facility] Comment:Testing performed by : [address] [address] RDW SD 45.1 35.7 - 48.1 fL [facility] Comment:Testing performed by : [address] [address] NRBC abs 0.00 0.00 - 0.01 K/cumm [facility] Comment:Testing performed by : [address] [address] Blood 09/27/2024 2:58 AM CDT 09/27/2024 3:03 AM CDT us Ferdinand Rivera DO LAB BLOOD ORDERABLES Final Res ult [facility] [address] Department [place] [address] * Comprehensive metabolic panel (09/27/2024 2:58 AM CDT) Sodium 140 135 - 145 mmol/L Comment:Testing performed by : [address] [address] Potassium, pl 3.8 3.3 - 4.9 mmol/L [facility] M[facility]S Comment:Testing performed by : [address] [address] Chloride 103 97 - 110 mmol/L [facility] Comment:Testing performed by : [address] [address] CO2 23 22 - 32 mmol/L [facility] Comment:Testing performed by : [address] [address] Anion gap 14 2 - 15 mmol/L [facility] Comment:Testing performed by : [address] [address] BUN 11 6 - 25 mg/dL [facility] Comment:Testing performed by : [address] [address] Creatinine 0.66 0.60 - 1.10 mg/dL [facility] Comment:Testing performed by : [address] [address] Glucose 154 70 - 199 mg/dL [facility] [...] was last revised 2022. Testing performed by: [address] [address] Calcium 10.3 8.5 - 10.3 mg/dL [facility] Comment:Testing performed by : [address] [address] Bilirubin, total <0.2 0.1 - 1.2 mg/dL [facility] Comment:Testing performed by : [address] [address] Protein, pl 7.8 6.5 - 8.5 g/dL [facility] Comment:Testing performed by : [address] [address] Albumin 4.5 3.5 - 5.0 g/dL [facility] Comment:Testing performed by : [address] [address] Alk phos 85 40 - 130 Units/L [facility] Comment:Testing performed by : [address] [address] ALT 25 7 - 45 Units/L [facility] Comment:Testing performed by : [address] [address] AST 15 10 - 45 Units/L [facility] Comment:Testing performed by : [address] [address] Blood 09/27/2024 2:58 AM CDT 09/27/2024 3:03 AM CDT us Ferdinand Rivera DO LAB BLOOD ORDERABLES Final Res ult Performing Organization Address [facility] Co de Phone Number TAWNY[facility] [address] [facility] [address] * eGFR (09/24/2024 3:43 AM CDT) eGFR [...] was last reviewed 2021. Testing performed by: [facility], [address] [place] [address]., [address] Blood 09/24/2024 3:43 AM CDT 09/24/2024 4:47 AM CDT us Dariela Cortez MANAGER OUTREACH LAB BLOOD ORDERABLES Final R esult Performing Organization Address City/[facility]/ZIP Co de Phone Number [facility] Department [place] [facility] [place] [address] * (ABNORMAL) Differential, auto (09/24/2024 3:43 AM CDT) Neutrophil abs 9.1(H) 1.5 - 6.5 K/cumm Comment:Testing performed by : [address], [place]., [address] Imm gran abs 0.0 0.0 - 0.1 K/cumm [facility] Comment:Testing performed by : [address], [place]., [address] Lymphocyte abs 0.7(L) 0.8 - 3.3 K/cumm [facility] Comment:Testing performed by : [address], [place]., [address] Monocyte abs 0.3 0.2 - 0.8 K/cumm [facility] Comment:Testing performed by : [address] [address] Eosinophil abs 0.0 0.0 - 0.5 K/cumm [facility] Comment:Testing performed by : [address] [address] Basophil abs 0.0 0.0 - 0.1 K/cumm [facility] Comment:Testing performed by : [address] [address] Neutrophil pct 89.5 % [facility] Comment: Interpretive Data Percent cell count reference ranges are not reported, since discordance with absolute values may lead to misinterpretation of CBC data. Current Interpretive Data was last revised on 2017. Testing performed by: [address] [address] Imm gran pct 0.3 % [facility] Comment: Interpretive Data Percent cell count reference ranges are not reported, since discordance with absolute values may lead to misinterpretation of CBC data. Current Interpretive Data was last revised on 2017. Testing performed by: [address] [address] Lymphocyte pct 6.9 % [facility] Comment: Interpretive Data Percent cell count reference ranges are not reported, since discordance with absolute values may lead to misinterpretation of CBC data. Current Interpretive Data was last revised on 2017. Testing performed by: [address] [address] Monocyte pct 3.1 % [facility] Comment: Interpretive Data Percent cell count reference ranges are not reported, since discordance with absolute values may lead to misinterpretation of CBC data. Current Interpretive Data was last revised on 2017. Testing performed by: [address] [address] Eosinophil pct 0.0 % [facility] Comment: Interpretive Data Percent cell count reference ranges are not reported, since discordance with absolute values may lead to misinterpretation of CBC data. Current Interpretive Data was last revised on 2017. Testing performed by: [address] [address] Basophil pct 0.2 % [facility] Comment: Interpretive Data Percent cell count reference ranges are not reported, since discordance with absolute values may lead to misinterpretation of CBC data. Current Interpretive Data was last revised on 2017. Testing performed by: [address] [address] Blood 09/24/2024 3:43 AM CDT 09/24/2024 4:50 AM CDT us Dariela Cortez NP LAB BLOOD ORDERABLES Final R esult [facility] [address] [facility] Department [place] [address] * (ABNORMAL) CBC with auto differential (09/24/2024 3:43 AM CDT) WBC 10.2(H) 3.8 - 9.9 K/cumm Comment:Testing performed by : [address] [address] Hgb 10.5(L) 11.9 - 15.5 g/dL [facility] Comment:Testing performed by : [address] [address] Hct 34.2(L) 35.6 - 45.5 % [facility] Comment:Testing performed by : [address] [address] Plt 418(H) 150 - 400 K/cumm [facility] Comment:Testing performed by : [address] [address] MPV 9.7 9.1 - 12.3 fL [facility] Comment:Testing performed by : [address] [address] RBC 4.17 3.90 - 5.20 M/cumm [facility] Comment:Testing performed by : [address] [address] MCV 82.0 81.3 - 96.4 fL [facility] Comment:Testing performed by : [address] [address] MCH 25.2(L) 27.1 - 33.3 pg [facility] Comment:Testing performed by : [address] [address] MCHC 30.7(L) 32.3 - 35.7 g/dL [facility] Comment:Testing performed by : [address] [address] RDW CV 15.6(H) 11.1 - 14.9 % [facility] Comment:Testing performed by : [address] [address] RDW SD 46.4 35.7 - 48.1 fL [facility] Comment:Testing performed by : [address] [address] NRBC abs 0.00 0.00 - 0.01 K/cumm TAWNYA Comment:Testing performed by : [address] [address] Blood 09/24/2024 3:43 AM CDT 09/24/2024 4:50 AM CDT us Dariela Cortez NP LAB BLOOD ORDERABLES Final R esult TAWNYA MILLS [address] [facility] Department [place] [address] * (ABNORMAL) Basic metabolic panel (09/24/2024 3:43 AM CDT) Sodium 138 135 - 145 mmol/L Comment:Testing performed by : [facility], [address] [place] [address], [place]., [address] Potassium, pl 4.2 3.3 - 4.9 mmol/L TAWNYA Comment:Testing performed by : [address], [place]., [address] Chloride 107 97 - 110 mmol/L TAWNYA Comment:Testing performed by : [address], [place]., [address] CO2 21(L) 22 - 32 mmol/L TAWNYA Comment:Testing performed by : [address], [place]., [address] Anion gap 10 2 - 15 mmol/L TAWNYA Comment:Testing performed by : [address], [place]., [address] BUN 10 6 - 25 mg/dL TAWNYA Comment:Testing performed by : [address], [place]., [address] Creatinine 0.71 0.60 - 1.10 mg/dL TAWNYA Comment:Testing performed by : [address], [place]., [address] Glucose 145 70 - 199 mg/dL [facility] Comment: Interpretive Data Fasting glucose >/= 126 [...] was last revised 2022. Testing performed by: [address] [address] Calcium 9.7 8.5 - 10.3 mg/dL TAWNYA Comment:Testing performed by : [address], [place]., [address] Blood 09/24/2024 3:43 AM CDT 09/24/2024 4:47 AM CDT us Dariela Cortez MANAGER OUTREACH LAB BLOOD ORDERABLES Final R esult TAWNYA [address] [facility] Department [place] [address] * XR Mandible 4 or More Views [...] signed by Arnold GRAHAM: GLADYS Report ID: [id number] Reading Location: [id number] Procedure Note Arnold Chahal MD - 09/23/2024 [...] signed by Arnold GRAHAM: GLADYS Report ID: [id number] Reading Location: [id number] Darian Goode MD IMG XR PROCEDURES Fi [...] signed by Arnold GRAHAM: GLADYS Report ID: [id number] Reading Location: [id number] Procedure Note Arnold Chahal MD - 09/23/2024 [...] signed by Arnold GRAHAM: GLADYS Report ID: [id number] Reading Location: [id number] us Jorje Huynh MD IMG XR PROCEDURES [...] López Mcclellan M.D. MM: MM Report ID: [id number] Reading Location: [place] [address] Procedure Note López Mcclellan MD - 09/23/2024 [...] López Mcclellan M.D. MM: MM Report ID: [id number] Reading Location: [place] [address] Samuel Bowen MD IMG XR PROCEDURES F inal Result * ECG 12 lead (09/23/2024 4:46 PM CDT) Ventricular Rate EKG/Min 146 BPM [facility] Atrial Rate 292 BPM [facility] QRS-Interval (MSEC) 98 ms [facility] QT-Interval (MSEC) 350 ms [facility] QTc 545 ms [facility] R [place] 58 degrees [facility] T [place] 50 degrees [facility] Diagnosis Sinus tachycardia Incomplete right bundle branch block T-wave changes When compared with ECG of 01-SEP-2024 13:54, No significant change Confirmed by SULTAN ZUNIGA M.D. ([id number]) on 09/23/2024 9:49:04 PM [facility] 09/23/2024 4:46 PM CDT 09/23/2024 9:49 PM CDT us Samuel Bowen MD ECG ORDERABLES Fin al Result Performing Organization Address City/[facility]/ZIP Co de Phone Number [facility] [employer] [facility] * eGFR (09/23/2024 4:27 PM CDT) eGFR [...] was last reviewed 2021. Testing performed by: [facility], [address] [place] [address]., [address] Blood 09/23/2024 4:27 PM CDT 09/23/2024 4:39 PM CDT us Deisy MARQUEZ LAB BLOOD ORDERABLES Final Resu lt Performing Organization Address City/[facility]/ZIP Co de Phone Number TAWNYA [address] [facility] Department [place] [address] * (ABNORMAL) Differential, auto (09/23/2024 4:27 PM CDT) Pathologist [facility] Neutrophil abs 7.2(H) 1.5 - 6.5 K/cumm Comment:Testing performed by : [address] [address] Imm gran abs 0.0 0.0 - 0.1 K/cumm TAWNYA Comment:Testing performed by : [address] [address] Lymphocyte abs 2.4 0.8 - 3.3 K/cumm TAWNYA Comment:Testing performed by : [address] [address] Monocyte abs 0.8 0.2 - 0.8 K/cumm [facility] Comment:Testing performed by : [address] [address] Eosinophil abs 0.1 0.0 - 0.5 K/cumm [facility] Comment:Testing performed by : [address] [address] Basophil abs 0.1 0.0 - 0.1 K/cumm [facility] Comment:Testing performed by : [address] [address] Neutrophil pct 68.6 % [facility] Comment: Interpretive Data Percent cell count reference ranges are not reported, since discordance with absolute values may lead to misinterpretation of CBC data. Current Interpretive Data was last revised on 2017. Testing performed by: [address] [address] Imm gran pct 0.4 % [facility] Comment: Interpretive Data Percent cell count reference ranges are not reported, since discordance with absolute values may lead to misinterpretation of CBC data. Current Interpretive Data was last revised on 2017. Testing performed by: [address] [address] Lymphocyte pct 22.5 % [facility] Comment: Interpretive Data Percent cell count reference ranges are not reported, since discordance with absolute values may lead to misinterpretation of CBC data. Current Interpretive Data was last revised on 2017. Testing performed by: [address] [address] Monocyte pct 7.1 % TAWNYA Comment: Interpretive Data Percent cell count reference ranges are not reported, since discordance with absolute values may lead to misinterpretation of CBC data. Current Interpretive Data was last revised on 2017. Testing performed by: [address] [address] Eosinophil pct 0.7 % TAWNYA Comment: Interpretive Data Percent cell count reference ranges are not reported, since discordance with absolute values may lead to misinterpretation of CBC data. Current Interpretive Data was last revised on 2017. Testing performed by: [address] [address] Basophil pct 0.7 % TAWNYA Comment: Interpretive Data Percent cell count reference ranges are not reported, since discordance with absolute values may lead to misinterpretation of CBC data. Current Interpretive Data was last revised on 2017. Testing performed by: [address] [address] Blood 09/23/2024 4:27 PM CDT 09/23/2024 4:39 PM CDT us Samuel Bowen MD LAB BLOOD ORDERABLE S Final Result [facility] [address] [facility] Department [place] [address] * (ABNORMAL) CBC with auto differential (09/23/2024 4:27 PM CDT) Pathologist [facility] WBC 10.5(H) 3.8 - 9.9 K/cumm Comment:Testing performed by : [address] [address] Hgb 11.9 11.9 - 15.5 g/dL TAWNYA MILLS Comment:Testing performed by : [address] [address] Hct 40.4 35.6 - 45.5 % TAWNYA Comment:Testing performed by : [address] [address] Plt 517(H) 150 - 400 K/cumm TAWNYA MILLS Comment:Testing performed by : [facility], [address] [place] [address]., [address] MPV 9.3 9.1 - 12.3 fL TAWNYA MILLS Comment:Testing performed by : [address] [address] RBC 4.93 3.90 - 5.20 M/cumm TAWNYA MILLS Comment:Testing performed by : [address] [address] MCV 81.9 81.3 - 96.4 fL TAWNYA Comment:Testing performed by : [address] [address] MCH 24.1(L) 27.1 - 33.3 pg TAWNYA Comment:Testing performed by : [address] [address] MCHC 29.5(L) 32.3 - 35.7 g/dL TAWNYA Comment:Testing performed by : [address] [address] RDW CV 15.6(H) 11.1 - 14.9 % TAWNYA Comment:Testing performed by : [address] [address] RDW SD 46.5 35.7 - 48.1 fL TAWNYA Comment:Testing performed by : [address] [address] NRBC abs 0.00 0.00 - 0.01 K/cumm TAWNYA Comment:Testing performed by : [address] [address] Blood 09/23/2024 4:27 PM CDT 09/23/2024 4:39 PM CDT us Samuel Bowen MD LAB BLOOD ORDERABLE S Final Result [facility] [address] [facility] Department of Laboratories [place], [place] [id number] * Comprehensive metabolic panel (09/23/2024 4:27 PM CDT) [facility] Sodium 141 135 - 145 mmol/L Comment:Testing performed by : [facility], [address] [place] [address], [place]., [address] Potassium, pl 3.3 3.3 - 4.9 mmol/L TAWNYA Comment:Testing performed by : [address], [place]., [address] Chloride 104 97 - 110 mmol/L TAWNYA Comment:Testing performed by : [address], [place]., [address] CO2 22 22 - 32 mmol/L TAWNYA Comment:Testing performed by : [address], [place]., [address] Anion gap 15 2 - 15 mmol/L TAWNYA Comment:Testing performed by : [address], [place]., [address] BUN 11 6 - 25 mg/dL TAWNYA Comment:Testing performed by : [address], [place]., [address] Creatinine 0.89 0.60 - 1.10 mg/dL TAWNYA Comment:Testing performed by : [address], [place]., [address] Glucose 153 70 - 199 mg/dL TAWNYA [...] was last revised 2022. Testing performed by: [address] [address] Calcium 9.9 8.5 - 10.3 mg/dL TAWNYA Comment:Testing performed by : [address], [place]., [address] Bilirubin, total <0.2 0.1 - 1.2 mg/dL [facility] M[facility]S Comment:Testing performed by : [address] [address] Protein, pl 8.0 6.5 - 8.5 g/dL TAWNYA MILLS Comment:Testing performed by : [address] [address] Albumin 4.6 3.5 - 5.0 g/dL TAWNYA MILLS Comment:Testing performed by : [address] [address] Alk phos 84 40 - 130 Units/L TAWNYA MILLS Comment:Testing performed by : [address] [address] ALT 42 7 - 45 Units/L TAWNYA MILLS Comment:Testing performed by : [address] [address] AST 27 10 - 45 Units/L TAWNYA MILLS Comment:Testing performed by : [address] [address] Blood 09/23/2024 4:27 PM CDT 09/23/2024 4:39 PM CDT us Samuel Bowen MD LAB BLOOD ORDERABLE S Final Result TAWNYA [facility] Department [place] [address] * (ABNORMAL) CBC without differential (09/05/2024 4:27 AM BASS MECHANISM MAKER) Pathologist [facility] WBC 14.9(H) 3.8 - 9.9 K/cumm Comment:Testing performed by : [address] [address] Hgb 10.8(L) 11.9 - 15.5 g/dL TAWNYA MILLS Comment:Testing performed by : [address] [address] Hct 35.6 35.6 - 45.5 % TAWNYA MILLS Comment:Testing performed by : [address] [address] Plt 414(H) 150 - 400 K/cumm TAWNYA MILLS Comment:Testing performed by : [address] [address] MPV 9.4 9.1 - 12.3 fL TAWNYA MILLS Comment:Testing performed by : [address] [address] RBC 4.35 3.90 - 5.20 M/cumm TAWNYA MILLS Comment:Testing performed by : [address] [address] MCV 81.8 81.3 - 96.4 fL TAWNYA Comment:Testing performed by : [address] [address] MCH 24.8(L) 27.1 - 33.3 pg TAWNYA Comment:Testing performed by : [address] [address] MCHC 30.3(L) 32.3 - 35.7 g/dL TAWNYA Comment:Testing performed by : [address], [address] RDW CV 15.4(H) 11.1 - 14.9 % TAWNYA Comment:Testing performed by : [address] [address] RDW SD 46.2 35.7 - 48.1 fL TAWNYA Comment:Testing performed by : [address] [address] NRBC abs 0.00 0.00 - 0.01 K/cumm TAWNYA Comment:Testing performed by : [address] [address] Blood 09/05/2024 4:27 AM BASS MECHANISM MAKER 09/05/2024 5:03 AM BASS MECHANISM MAKER us Venkat Rudd MD LAB BLOOD ORDERABLES Fi nal Result TAWNYA MILLS [address] [facility] Department of Laboratories [place], [place] [id number] * (ABNORMAL) CBC without differential (09/04/2024 4:25 AM BASS MECHANISM MAKER) [facility] WBC 14.5(H) 3.8 - 9.9 K/cumm Comment:Testing performed by : [address] [address] Hgb 10.5(L) 11.9 - 15.5 g/dL TAWNYA Comment:Testing performed by : [address] [address] Hct 35.4(L) 35.6 - 45.5 % TAWNYA Comment:Testing performed by : [address] [address] Plt 392 150 - 400 K/cumm [facility] Comment:Testing performed by : [address] [address] MPV 9.2 9.1 - 12.3 fL TAWNYA Comment:Testing performed by : [address] [address] RBC 4.27 3.90 - 5.20 M/cumm TAWNYA Comment:Testing performed by : [address] [address] MCV 82.9 81.3 - 96.4 fL [facility] Comment:Testing performed by : [address] [address] MCH 24.6(L) 27.1 - 33.3 pg TAWNYA Comment:Testing performed by : [address] [address] MCHC 29.7(L) 32.3 - 35.7 g/dL TAWNYA Comment:Testing performed by : [address], [address] RDW CV 15.6(H) 11.1 - 14.9 % TAWNYA Comment:Testing performed by : [address], [address] RDW SD 47.6 35.7 - 48.1 fL TAWNYA Comment:Testing performed by : [address] [address] NRBC abs 0.00 0.00 - 0.01 K/cumm TAWNYA Comment:Testing performed by : [address] [address] Blood 09/04/2024 4:25 AM BASS MECHANISM MAKER 09/04/2024 4:41 AM BASS MECHANISM MAKER us Venkat Rudd MD LAB BLOOD ORDERABLES Fi nal Result Performing Organization Address [facility] de Phone Number TAWNYA [address] [address] * Troponin T high-sensitivity 2-hour (09/01/2024 5:11 PM BASS MECHANISM MAKER) Trop T hs <6 <=14 ng/L Comment: Interpretive Data For further hscTnT resources including the diagnostic algorithm and an aid in interpretation, copy and paste this link: https://nrl.testcatalog.org/show/hsTrop Current Interpretive Data last revised 2020. Testing performed by: [address] [address] Trop T hs delta 0 ng/L TAWNYA Comment:Testing performed by : [address] [address] Trop T hs interp Insignificant TAWNYA Comment:Testing performed by : [address] [address] Blood 09/01/2024 5:11 PM BASS MECHANISM MAKER 09/01/2024 5:14 PM BASS MECHANISM MAKER us Wil Monteiro MD LAB BLOOD ORDERABLE S Final Result Performing Organization Address [facility] de Phone Number [address] [address] * Urinalysis reflex to microscopic and culture Urine (09/01/2024 4:58 PM BASS MECHANISM MAKER) Color, ur Yellow Yellow Comment:Testing performed by : [address] [address] Clarity, ur Clear Clear TAWNYA Comment:Testing performed by : [address] [address] Specific gravity, ur 1.015 1.003 - 1.030 TAWNYA Comment:Testing performed by : [facility], [address] [place] [address], [place]., [address] pH, urine 7.0 TAWNYA Comment: Interpretive Data U rine pH is affected by diet, medications, systemic acid-base disturbances, and renal tubular function. pH may affect urinary stone formation. For example, urine pH below 6.0 may help reduce the tendency for calcium phosphate stones and pH greater than 6.0 may reduce the tendency for uric acid stone formation. Source: [facility] Current Interpretive Data was last revised on 2017 Testing performed by: [facility], [address] [place] [address], [place]., [address] Protein, ur ql Negative Negative TAWNYA Comment:Testing performed by : [address], [place]., [address] Glucose, ur ql Negative Negative TAWNYA Comment:Testing performed by : [address], [place]., [address] Ketones, ur Negative Negative TAWNYA Comment:Testing performed by : [address], [place]., [address] Bilirubin, ur Negative Negative TAWNYA Comment:Testing performed by : [address], [place]., [address] Blood, ur Negative Negative TAWNYA Comment:Testing performed by : [address], [place]., [address] Urobilinogen, ur <2.0 <2.0 mg/dL TAWNYA Comment:Testing performed by : [address] [address] Nitrite, ur Negative Negative TAWNYA Comment:Testing performed by : [address], [place]., [address] Leukocyte esterase, ur Negative Negative TAWNYA Comment:Testing performed by : [address] [address] UA reflex comment Reflex conditions for microscopic UA and culture not met. TAWNYA Comment:Testing performed by : [address], [place]., [address] Urine 09/01/2024 4:58 PM BASS MECHANISM MAKER 09/01/2024 4:59 PM BASS MECHANISM MAKER us Wil Monteiro MD LAB MICROBIOLOGY - GENERAL ORDERABLES Final Result TAWNYA MH [address] [facility] Department [place] [address] * XR Chest 1 Vw Portable (09/01/2024 3:05 PM BASS MECHANISM MAKER) Anatomical Region Laterality Modality Body, Chest N/A Computed Radiogr aphy 09/01/2024 3:19 PM BASS MECHANISM MAKER Narrative 09/01/2024 3:22 PM BASS MECHANISM MAKER EXAM DESCRIPTION: XR CHEST 1 VIEW REASON [...] Robi Arreola M.D. MZ: JEANNETTE Report ID: [id number] Reading Location: [id number] Procedure Note Robi Arreola MD - 09/01/2024 [...] Robi Arreola M.D. MZ: MZ Report ID: [id number] Reading Location: [place] [address] us Wil Monteiro MD IMG XR PROCEDURES F inal Result * Troponin T high-sensitivity series (baseline, 2hr, 4hr, 6hr) (09/01/2024 2:59 PM BASS MECHANISM MAKER) [facility] Trop T hs <6 <=14 ng/L Comment: Interpretive Data For further hscTnT resources including the diagnostic algorithm and an aid in interpretation, copy and paste this link: https://nrl.testcatalog.org/show/hsTrop Current Interpretive Data last revised 2020. Testing performed by: [facility], [address] [place] [address]., [address] Blood 09/01/2024 2:59 PM BASS MECHANISM MAKER 09/01/2024 3:03 PM BASS MECHANISM MAKER us Wil Monteiro MD LAB BLOOD ORDERABLE S Final Result TAWNYA [address] [facility] Department [place] [address] * eGFR (09/01/2024 2:59 PM BASS MECHANISM MAKER) [facility] eGFR >90 >=60 mL/min/1. 73 m2 [...] was last reviewed 2021. Testing performed by: [address] [address] Blood 09/01/2024 2:59 PM BASS MECHANISM MAKER 09/01/2024 3:03 PM BASS MECHANISM MAKER us Wil Monteiro MD LAB BLOOD ORDERABLE S Final Result TAWNYA MILLS [address] [facility] Department of Laboratories [place], [place] [address] * (ABNORMAL) Differential, auto (09/01/2024 2:59 PM BASS MECHANISM MAKER) Pathologist [facility] Neutrophil abs 14.4(H) 1.5 - 6.5 K/cumm Comment:Testing performed by : [address] [address] Imm gran abs 0.2(H) 0.0 - 0.1 K/cumm TAWNYA MILLS Comment:Testing performed by : [address] [address] Lymphocyte abs 1.4 0.8 - 3.3 K/cumm TAWNYA MILLS Comment:Testing performed by : [address] [address] Monocyte abs 0.4 0.2 - 0.8 K/cumm [facility] Comment:Testing performed by : [address] [address] Eosinophil abs 0.0 0.0 - 0.5 K/cumm [facility] Comment:Testing performed by : [address] [address] Basophil abs 0.1 0.0 - 0.1 K/cumm [facility] Comment:Testing performed by : [address] [address] Neutrophil pct 87.3 % [facility] Comment: Interpretive Data Percent cell count reference ranges are not reported, since discordance with absolute values may lead to misinterpretation of CBC data. Current Interpretive Data was last revised on 2017. Testing performed by: [address] [address] Imm gran pct 0.9 % [facility] Comment: Interpretive Data Percent cell count reference ranges are not reported, since discordance with absolute values may lead to misinterpretation of CBC data. Current Interpretive Data was last revised on 2017. Testing performed by: [address] [address] Lymphocyte pct 8.7 % [facility] Comment: Interpretive Data Percent cell count reference ranges are not reported, since discordance with absolute values may lead to misinterpretation of CBC data. Current Interpretive Data was last revised on 2017. Testing performed by: [address] [address] Monocyte pct 2.7 % [facility] Comment: Interpretive Data Percent cell count reference ranges are not reported, since discordance with absolute values may lead to misinterpretation of CBC data. Current Interpretive Data was last revised on 2017. Testing performed by: [address] [address] Eosinophil pct 0.1 % [facility] Comment: Interpretive Data Percent cell count reference ranges are not reported, since discordance with absolute values may lead to misinterpretation of CBC data. Current Interpretive Data was last revised on 2017. Testing performed by: [address] [address] Basophil pct 0.3 % TAWNYA MILLS Comment: Interpretive Data Percent cell count reference ranges are not reported, since discordance with absolute values may lead to misinterpretation of CBC data. Current Interpretive Data was last revised on 2017. Testing performed by: [address] [address] Blood 09/01/2024 2:59 PM BASS MECHANISM MAKER 09/01/2024 3:03 PM BASS MECHANISM MAKER Wil Monteiro MD LAB BLOOD ORDERABLE S Final Result Performing Organization Address City/[facility]/ZIP Co de Phone Number [address] [facility] [address] * Thyroid Function Amelia (09/01/2024 2:59 PM BASS MECHANISM MAKER) TSH 0.80 0.30 - 4.20 mcIUnit/mL Comment:Testing performed by : [address] [address] Blood 09/01/2024 2:59 PM BASS MECHANISM MAKER 09/01/2024 3:03 PM BASS MECHANISM MAKER us Wil Monteiro MD LAB BLOOD ORDERABLE S Final Result Performing Organization Address [facility] Co de Phone Number [address] [address] * (ABNORMAL) CBC with auto differential (09/01/2024 2:59 PM BASS MECHANISM MAKER) WBC 16.5(H) 3.8 - 9.9 K/cumm Comment:Testing performed by : [address] [address] Hgb 11.3(L) 11.9 - 15.5 g/dL TAWNYA MILLS Comment:Testing performed by : [address] [address] Hct 36.4 35.6 - 45.5 % TAWNYA MILLS Comment:Testing performed by : [address] [address] Plt 465(H) 150 - 400 K/cumm TAWNYA MILLS Comment:Testing performed by : [address] [address] MPV 9.0(L) 9.1 - 12.3 fL TAWNYA MILLS Comment:Testing performed by : [address] [address] RBC 4.54 3.90 - 5.20 M/cumm TAWNYA MILLS Comment:Testing performed by : [address] [address] MCV 80.2(L) 81.3 - 96.4 fL TAWNYA Comment:Testing performed by : [address] [address] MCH 24.9(L) 27.1 - 33.3 pg TAWNYA MILLS Comment:Testing performed by : [address] [address] MCHC 31.0(L) 32.3 - 35.7 g/dL TAWNYA Comment:Testing performed by : [address] [address] RDW CV 15.1(H) 11.1 - 14.9 % TAWNYA Comment:Testing performed by : [address] [address] RDW SD 44.1 35.7 - 48.1 fL TAWNYA Comment:Testing performed by : [address] [address] NRBC abs 0.00 0.00 - 0.01 K/cumm TAWNYA MILLS Comment:Testing performed by : [address] [address] Blood 09/01/2024 2:59 PM BASS MECHANISM MAKER 09/01/2024 3:03 PM BASS MECHANISM MAKER us Wil Monteiro MD LAB BLOOD ORDERABLE S Final Result TAWNYA [address] [facility] Department [place] [address] * Magnesium (09/01/2024 2:59 PM BASS MECHANISM MAKER) Pathologist [facility] Magnesium 2.0 1.4 - 2.5 mg/dL Comment:Testing performed by : [address] [address] Blood 09/01/2024 2:59 PM BASS MECHANISM MAKER 09/01/2024 3:03 PM BASS MECHANISM MAKER us Wil Monteiro MD LAB BLOOD ORDERABLE S Final Result [facility] [address] [facility] Department [place] [address] * Basic metabolic panel (09/01/2024 2:59 PM BASS MECHANISM MAKER) Pathologist [facility] Sodium 140 135 - 145 mmol/L Comment:Testing performed by : [address] [address] Potassium, pl 4.0 3.3 - 4.9 mmol/L TAWNYA Comment:Testing performed by : [address] [address] Chloride 103 97 - 110 mmol/L TAWNYA Comment:Testing performed by : [address] [address] CO2 23 22 - 32 mmol/L TAWNYA Comment:Testing performed by : [address] [address] Anion gap 14 2 - 15 mmol/L TAWNYA Comment:Testing performed by : [address] [address] BUN 17 6 - 25 mg/dL TAWNYA Comment:Testing performed by : [address] [address] Creatinine 0.68 0.60 - 1.10 mg/dL TAWNYA Comment:Testing performed by : [address] [address] Glucose 147 70 - 199 mg/dL TAWNYA [...] was last revised 2022. Testing performed by: [facility], [address] [place] [address]., [address] Calcium 9.3 8.5 - 10.3 mg/dL TAWNYA Comment:Testing performed by : [address] [address] Blood 09/01/2024 2:59 PM BASS MECHANISM MAKER 09/01/2024 3:03 PM BASS MECHANISM MAKER Wil Monteiro MD LAB BLOOD ORDERABLE S Final Result Performing Organization Address City/State/[facility] Co de Phone Number TAWNYA [address] [facility] Department of Laboratories [place], [place] [id number] * POCT hCG, urine (09/01/2024 2:28 PM BASS MECHANISM MAKER) [facility] HCG, ur, POC Negative Negative Lot Number [id number] QC Backgroud Clear Acceptable QC Control Line Acceptable Urine 09/01/2024 2:28 PM BASS MECHANISM MAKER Wil Monteior MD POINT OF CARE TEST ORDERABLES Final Result * ECG 12 lead (09/01/2024 1:54 PM BASS MECHANISM MAKER) [facility] Ventricular Rate EKG/Min 153 BPM [facility] Atrial Rate 153 BPM [facility] AZ-Interval (MSEC) 116 ms [facility] QRS-Interval (MSEC) 88 ms [facility] QT-Interval (MSEC) 328 ms [facility] QTc 523 ms [facility] P [place] 57 degrees [facility] R [place] 67 degrees [facility] T [place] 44 degrees [facility] Diagnosis Sinus tachycardia Otherwise normal ECG When compared with ECG of 18-B-2025 02:26, T wave inversion no longer evident in Anterior leads Confirmed by LAWRENCE YIP M.D. ([id number]) on 09/02/2024 9:10:53 AM [facility] 09/01/2024 1:54 PM BASS MECHANISM MAKER 09/02/2024 9:10 AM BASS MECHANISM MAKER us Wil Monteiro MD ECG ORDERABLES Fin al Result [facility] [employer] [facility] * eGFR (08/22/2024 7:57 AM BASS MECHANISM MAKER) eGFR >90 >=60 mL/min/1. 73 m2 Comment: [...] was last reviewed 2021. Testing performed by: [facility], [address] [place] [address]., [address] Blood 08/22/2024 7:57 AM BASS MECHANISM MAKER 08/22/2024 8:11 AM BASS MECHANISM MAKER us José Luis Tripp MD LAB BLOOD ORDERABLES Final Re sult TAWNYA [address] [facility] Department [place] [address] * (ABNORMAL) CBC without differential (08/22/2024 7:57 AM BASS MECHANISM MAKER) [facility] WBC 11.8(H) 3.8 - 9.9 K/cumm Comment:Testing performed by : [address] [address] Hgb 10.4(L) 11.9 - 15.5 g/dL TAWNYA Comment:Testing performed by : [address] [address] Hct 33.4(L) 35.6 - 45.5 % TAWNYA Comment:Testing performed by : [address], [address] Plt 450(H) 150 - 400 K/cumm TAWNYA Comment:Testing performed by : [address] [address] MPV 9.0(L) 9.1 - 12.3 fL TAWNYA Comment:Testing performed by : [address], [address] RBC 4.12 3.90 - 5.20 M/cumm TAWNYA Comment:Testing performed by : [address] [address] MCV 81.1(L) 81.3 - 96.4 fL TAWNYA Comment:Testing performed by : [address] [address] MCH 25.2(L) 27.1 - 33.3 pg TAWNYA Comment:Testing performed by : [address], [address] MCHC 31.1(L) 32.3 - 35.7 g/dL TAWNYA Comment:Testing performed by : [address], [address] RDW CV 15.5(H) 11.1 - 14.9 % TAWNYA Comment:Testing performed by : [address], [address] RDW SD 45.6 35.7 - 48.1 fL TAWNYA Comment:Testing performed by : [address], [address] NRBC abs 0.00 0.00 - 0.01 K/cumm TAWNYA Comment:Testing performed by : [address] [address] Blood 08/22/2024 7:57 AM BASS MECHANISM MAKER 08/22/2024 8:11 AM BASS MECHANISM MAKER Jorje Huynh MD LAB BLOOD ORDERABLES Final Result [facility] [address] [facility] Department [place] [address] * Basic metabolic panel (08/22/2024 7:57 AM BASS MECHANISM MAKER) Sodium 137 135 - 145 mmol/L Comment:Testing performed by : [address] [address] Potassium, pl 3.7 3.3 - 4.9 mmol/L TAWNYA Comment:Testing performed by : [address] [address] Chloride 103 97 - 110 mmol/L TAWNYA Comment:Testing performed by : [address] [address] CO2 23 22 - 32 mmol/L TAWNYA Comment:Testing performed by : [address] [address] Anion gap 11 2 - 15 mmol/L TAWNYA Comment:Testing performed by : [address] [address] BUN 16 6 - 25 mg/dL TAWNYA Comment:Testing performed by : [address] [address] Creatinine 0.71 0.60 - 1.10 mg/dL TAWNYA Comment:Testing performed by : [address] [address] Glucose 102 70 - 199 mg/dL TAWNYA [...] was last revised 2022. Testing performed by: [facility], [address] [place] [address]., [address] Calcium 9.0 8.5 - 10.3 mg/dL TAWNYA MILLS Comment:Testing performed by : [address] [address] Blood 08/22/2024 7:57 AM BASS MECHANISM MAKER 08/22/2024 8:11 AM BASS MECHANISM MAKER us José Luis Tripp MD LAB BLOOD ORDERABLES Final Re sult TAWNYA MILLS [address] [facility] Department [place] [address] * eGFR (08/21/2024 7:53 AM BASS MECHANISM MAKER) eGFR >90 >=60 mL/min/1. 73 m2 Comment: [...] was last reviewed 2021. Testing performed by: [address] [address] Blood 08/21/2024 7:53 AM BASS MECHANISM MAKER 08/21/2024 8:14 AM BASS MECHANISM MAKER us José Luis Tripp MD LAB BLOOD ORDERABLES Final Re sult TAWNYA [address] [facility] Department [place] [address] * (ABNORMAL) CBC without differential (08/21/2024 7:53 AM BASS MECHANISM MAKER) WBC 11.9(H) 3.8 - 9.9 K/cumm Comment:Testing performed by : [address] [address] Hgb 11.2(L) 11.9 - 15.5 g/dL TAWNYA Comment:Testing performed by : [address] [address] Hct 35.2(L) 35.6 - 45.5 % TAWNYA Comment:Testing performed by : [address] [address] Plt 481(H) 150 - 400 K/cumm TAWNYA Comment:Testing performed by : [address] [address] MPV 9.0(L) 9.1 - 12.3 fL TAWNYA Comment:Testing performed by : [address] [address] RBC 4.41 3.90 - 5.20 M/cumm TAWNYA Comment:Testing performed by : [address] [address] MCV 79.8(L) 81.3 - 96.4 fL TAWNYA Comment:Testing performed by : [address] [address] MCH 25.4(L) 27.1 - 33.3 pg TAWNYA MILLS Comment:Testing performed by : [address] [address] MCHC 31.8(L) 32.3 - 35.7 g/dL TAWNYA Comment:Testing performed by : [address] [address] RDW CV 15.6(H) 11.1 - 14.9 % TAWNYA MILLS Comment:Testing performed by : [address] [address] RDW SD 44.8 35.7 - 48.1 fL TAWNYA MILLS Comment:Testing performed by : [address] [address] NRBC abs 0.00 0.00 - 0.01 K/cumm TAWNYA MILLS Comment:Testing performed by : [address] [address] Blood 08/21/2024 7:53 AM BASS MECHANISM MAKER 08/21/2024 8:15 AM BASS MECHANISM MAKER us Jorje Huynh MD LAB BLOOD ORDERABLES Final Result Performing Organization Address City/State/[facility] Co de Phone Number TAWNYA [address] [facility] Department [place] [address] * Basic metabolic panel (08/21/2024 7:53 AM BASS MECHANISM MAKER) Sodium 139 135 - 145 mmol/L Comment:Testing performed by : [address] [address] Potassium, pl 3.5 3.3 - 4.9 mmol/L TAWNYA MILLS Comment:Testing performed by : [address] [address] Chloride 102 97 - 110 mmol/L TAWNYA MILLS Comment:Testing performed by : [address] [address] CO2 23 22 - 32 mmol/L TAWNYA MILLS Comment:Testing performed by : [address] [address] Anion gap 14 2 - 15 mmol/L TAWNYA MILLS Comment:Testing performed by : [address] [address] BUN 11 6 - 25 mg/dL TAWNYA MILLS Comment:Testing performed by : [address] [address] Creatinine 0.70 0.60 - 1.10 mg/dL [facility] Comment:Testing performed by : [address] [address] Glucose 91 70 - 199 mg/dL [facility] Comment: Interpretive Data Fasting glucose >/= 126 [...] was last revised 2022. Testing performed by: [address] [address] Calcium 9.4 8.5 - 10.3 mg/dL [facility] Comment:Testing performed by : [address] [address] Blood 08/21/2024 7:53 AM BASS MECHANISM MAKER 08/21/2024 8:14 AM BASS MECHANISM MAKER us José Luis Tripp MD LAB BLOOD ORDERABLES Final Re sult [facility] [address] [facility] Department of Laboratories [place], [place] [id number] * [place] CLOSED [place] TEMPOROMANDIBULAR DISLOCATION 1ST/SBSQ (08/20/2024 1:18 PM BASS MECHANISM MAKER) Narrative Abhay Velez MD - 08/20/2024 1:18 PM BASS MECHANISM MAKER Abhay Velez MD 08/20/2024 1:33 PM Orthopedic Injury Treatment - Jaw Dislocation Date/Time: 08/20/2024 1:18 PM Performed by: Abhay Velez MD Authorized by: Abhay Velez MD RN Notified of Procedure: yes Informed consent: Risks, benefits, alternatives discussed and patient/product sales representative/guardian agrees and accepts Patient's stated name/ [...] Result * Procedural Sedation (08/20/2024 1:18 PM BASS MECHANISM MAKER) Narrative Abhay Velez MD - 08/20/2024 1:18 PM BASS MECHANISM MAKER Abhay Velez MD 08/20/2024 1:32 PM Procedural Sedation Date/Time: 08/20/2024 1:18 PM Performed by: Abhay Velez MD Authorized by: Abhay Velez MD [place] Protocol: RN Notified of Procedure: yes Informed consent: Risks, benefits, alternatives discussed and patient/product sales representative/guardian agrees and accepts Patient's stated name/ [...] Less than 4 Views (08/20/2024 11:41 AM BASS MECHANISM MAKER) Anatomical Region Laterality Modality Head and Neck N/A Computed Radiogr aphy 08/20/2024 11:5 5 AM BASS MECHANISM MAKER Narrative 08/20/2024 12:02 PM BASS MECHANISM MAKER EXAM DESCRIPTION: XR MANDIBLE LESS THAN 4 [...] Rohan Ramos M.D. LB: LB Report ID: [id number] Reading Location: [id number] Procedure Note Rohan Ramos MD - 08/20/2024 [...] Rohan Ramos M.D. LB: LB Report ID: [id number] Reading Location: [id number] Jorje Huynh MD IMG XR PROCEDURES Final Re sult * Sepsis Lactate w/ Reflex (08/20/2024 8:24 AM BASS MECHANISM MAKER) Pathologist [facility] Sepsis Lactate 1.3 0.7 - 2.0 mmol/L Comment:Testing performed by : [address] [address] Blood 08/20/2024 8:24 AM BASS MECHANISM MAKER 08/20/2024 8:29 AM BASS MECHANISM MAKER Erik Westbrook MANAGER OUTREACH LAB BLOOD ORDERABLES Final Resul t Performing Organization Address [facility] Co de Phone Number TAWNYA [address] [place] [address] * (ABNORMAL) Sepsis Lactate w/ Reflex (08/20/2024 3:25 AM BASS MECHANISM MAKER) Pathologist [facility] Sepsis Lactate 2.6(C) 0.7 - 2.0 mmol/L Comment: Critical Result called to and read back by [email or web address], DATE: 2024-08-20 04:23:15 BY: [email or web address] Testing performed by: [address] [address] Blood 08/20/2024 3:25 AM BASS MECHANISM MAKER 08/20/2024 4:00 AM BASS MECHANISM MAKER Erik Westbrook MANAGER OUTREACH LAB BLOOD ORDERABLES Final Resul t Performing Organization Address [facility] Co de Phone Number YA[address] [place] [address] * eGFR (08/20/2024 3:25 AM BASS MECHANISM MAKER) Pathologist [facility] eGFR >90 >=60 mL/min/1. 73 m2 Comment: [...] was last reviewed 2021. Testing performed by: [address] [address] Blood 08/20/2024 3:25 AM BASS MECHANISM MAKER 08/20/2024 4:00 AM BASS MECHANISM MAKER us José Luis Tripp MD LAB BLOOD ORDERABLES Final Re sult TAWNYA [facility] Department of Laboratories [place], [place] [id number] * (ABNORMAL) CBC without differential (08/20/2024 3:25 AM BASS MECHANISM MAKER) WBC 12.4(H) 3.8 - 9.9 K/cumm Comment:Testing performed by : [address] [address] Hgb 10.3(L) 11.9 - 15.5 g/dL TAWNYA MILLS Comment:Testing performed by : [address] [address] Hct 32.7(L) 35.6 - 45.5 % TAWNYA MILLS Comment:Testing performed by : [address] [address] Plt 467(H) 150 - 400 K/cumm TAWNYA MILLS Comment:Testing performed by : [address] [address] MPV 9.1 9.1 - 12.3 fL TAWNYA MILLS Comment:Testing performed by : [address] [address] RBC 4.09 3.90 - 5.20 M/cumm TAWNYA MILLS Comment:Testing performed by : [address] [address] MCV 80.0(L) 81.3 - 96.4 fL TAWNYA MILLS Comment:Testing performed by : [address] [address] MCH 25.2(L) 27.1 - 33.3 pg TAWNYA MILLS Comment:Testing performed by : [address] [address] MCHC 31.5(L) 32.3 - 35.7 g/dL TAWNYA MILLS Comment:Testing performed by : [address] [address] RDW CV 15.1(H) 11.1 - 14.9 % TAWNYA MILLS Comment:Testing performed by : [address] [address] RDW SD 43.8 35.7 - 48.1 fL TAWNYA MILLS Comment:Testing performed by : [address] [address] NRBC abs 0.00 0.00 - 0.01 K/cumm TAWNYA Comment:Testing performed by : [address] [address] Blood 08/20/2024 3:25 AM BASS MECHANISM MAKER 08/20/2024 4:00 AM BASS MECHANISM MAKER us José Luis Tripp MD LAB BLOOD ORDERABLES Final Re sult TAWNYA [address] [facility] Department of Laboratories [place], [place] [id number] * (ABNORMAL) Basic metabolic panel (08/20/2024 3:25 AM BASS MECHANISM MAKER) Pathologist [facility] Sodium 138 135 - 145 mmol/L Comment:Testing performed by : [address] [address] Potassium, pl 4.4 3.3 - 4.9 mmol/L TAWNYA MILLS Comment: Hemolyzed; Potassium value may be falsely elevated by as much as 1.0 mmol/L. Suggest redraw and reanalysis. Testing performed by: [address] [address] Chloride 104 97 - 110 mmol/L TAWNYA Comment:Testing performed by : [address] [address] CO2 20(L) 22 - 32 mmol/L TAWNYA Comment:Testing performed by : [address] [address] Anion gap 14 2 - 15 mmol/L TAWNYA Comment:Testing performed by : [address] [address] BUN 8 6 - 25 mg/dL TAWNYA Comment:Testing performed by : [address] [address] Creatinine 0.64 0.60 - 1.10 mg/dL TAWNYA Comment:Testing performed by : [address] [address] Glucose 179 70 - 199 mg/dL TAWNYA [...] was last revised 2022. Testing performed by: [address] [address] Calcium 9.5 8.5 - 10.3 mg/dL TAWNYA Comment:Testing performed by : [address] [address] Blood 08/20/2024 3:25 AM BASS MECHANISM MAKER 08/20/2024 4:00 AM BASS MECHANISM MAKER us José Luis Tripp MD LAB BLOOD ORDERABLES Final Re sult TAWNYA [address] [facility] Department of Laboratories [place], [place] [id number] * ECG 12 lead (08/20/2024 2:26 AM BASS MECHANISM MAKER) [facility] Ventricular Rate EKG/Min 148 BPM [facility] Atrial Rate 148 BPM [facility] AZ-Interval (MSEC) 114 ms [facility] QRS-Interval (MSEC) 100 ms [facility] QT-Interval (MSEC) 336 ms [facility] QTc 527 ms [facility] P [place] 51 degrees [facility] R [place] 73 degrees [facility] T [place] 35 degrees [facility] Diagnosis Sinus tachycardia Incomplete right bundle branch block Nonspecific T wave abnormality Abnormal ECG When compared with ECG of 19-AUG-2024 20:25, No significant change was found Confirmed by BELIA CHU M.D. ([id number]) on 08/21/2024 5:20:17 AM [facility] 08/20/2024 2:2 6 AM BASS MECHANISM MAKER 08/21/2024 5:20 AM BASS MECHANISM MAKER us Jorje Huynh MD ECG ORDERABLES Final Resu lt [facility] * (ABNORMAL) Sepsis Lactate w/ Reflex (08/19/2024 8:52 PM BASS MECHANISM MAKER) [facility] Sepsis Lactate 2.4(C) 0.7 - 2.0 mmol/L Comment: Critical Result called to and read back by [email or web address], DATE: 2024-08-19 21:21:33 BY: [id number] Testing performed by: [facility], [address] [place] [address]., [address] Blood 08/19/2024 8:52 PM BASS MECHANISM MAKER 08/19/2024 8:55 PM BASS MECHANISM MAKER us Erik Westbrook NP LAB BLOOD ORDERABLES Final Resul t TAWNYA [address] [facility] Department [place] [address] * ECG 12 lead (08/19/2024 8:25 PM BASS MECHANISM MAKER) [facility] Ventricular Rate EKG/Min 129 BPM [facility] Atrial Rate 129 BPM [facility] [place]-Interval (MSEC) 138 ms [facility] QRS-Interval (MSEC) 100 ms [facility] QT-Interval (MSEC) 316 ms [facility] QTc 462 ms [facility] P [place] 55 degrees [facility] R [place] 49 degrees [facility] T [place] 46 degrees [facility] Diagnosis Sinus tachycardia Possible Left atrial enlargement Incomplete right bundle branch block Borderline ECG When compared with ECG of 21-MAY-2024 14:20, No significant change was found Confirmed by ZANE SORTO M.D. ([id number]) on 08/20/2024 11:59:01 PM [facility] 08/19/2024 8:25 PM BASS MECHANISM MAKER 08/20/2024 11:59 PM BASS MECHANISM MAKER us Erik Westbrook NP ECG ORDERABLES Final Result [facility] * eGFR (08/19/2024 8:20 PM BASS MECHANISM MAKER) Pathologist [facility] eGFR >90 >=60 mL/min/1. 73 m2 Comment: [...] was last reviewed 2021. Testing performed by: [facility], [address] [place] [address]., [address] Blood 08/19/2024 8:20 PM BASS MECHANISM MAKER 08/19/2024 8:24 PM BASS MECHANISM MAKER us Erik Westbrook NP LAB BLOOD ORDERABLES Final Resul t TAWNYA [address] [facility] Department [place] [address] * (ABNORMAL) Differential, auto (08/19/2024 8:20 PM BASS MECHANISM MAKER) Neutrophil abs 17.7(H) 1.5 - 6.5 K/cumm Comment:Testing performed by : [address] [address] Imm gran abs 0.1 0.0 - 0.1 K/cumm TAWNYA Comment:Testing performed by : [address] [address] Lymphocyte abs 0.6(L) 0.8 - 3.3 K/cumm TAWNYA Comment:Testing performed by : [address] [address] Monocyte abs 0.4 0.2 - 0.8 K/cumm TAWNYA Comment:Testing performed by : [address] [address] Eosinophil abs 0.0 0.0 - 0.5 K/cumm TAWNYA Comment:Testing performed by : [address] [address] Basophil abs 0.1 0.0 - 0.1 K/cumm TAWNYA Comment:Testing performed by : [address] [address] Neutrophil pct 94.0 % TAWNYA Comment: Interpretive Data Percent cell count reference ranges are not reported, since discordance with absolute values may lead to misinterpretation of CBC data. Current Interpretive Data was last revised on 2017. Testing performed by: [address] [address] Imm gran pct 0.4 % TAWNYA Comment: Interpretive Data Percent cell count reference ranges are not reported, since discordance with absolute values may lead to misinterpretation of CBC data. Current Interpretive Data was last revised on 2017. Testing performed by: [address] [address] Lymphocyte pct 3.1 % [facility] Comment: Interpretive Data Percent cell count reference ranges are not reported, since discordance with absolute values may lead to misinterpretation of CBC data. Current Interpretive Data was last revised on 2017. Testing performed by: [address] [address] Monocyte pct 2.2 % [facility] Comment: Interpretive Data Percent cell count reference ranges are not reported, since discordance with absolute values may lead to misinterpretation of CBC data. Current Interpretive Data was last revised on 2017. Testing performed by: [address] [address] Eosinophil pct 0.0 % [facility] Comment: Interpretive Data Percent cell count reference ranges are not reported, since discordance with absolute values may lead to misinterpretation of CBC data. Current Interpretive Data was last revised on 2017. Testing performed by: [address] [address] Basophil pct 0.3 % [facility] Comment: Interpretive Data Percent cell count reference ranges are not reported, since discordance with absolute values may lead to misinterpretation of CBC data. Current Interpretive Data was last revised on 2017. Testing performed by: [address] [address] Blood 08/19/2024 8:20 PM BASS MECHANISM MAKER 08/19/2024 8:24 PM BASS MECHANISM MAKER us Erik Westbrook NP LAB BLOOD ORDERABLES Final Resul t TAWNYA [address] [facility] [place] [address] * (ABNORMAL) CBC with auto differential (08/19/2024 8:20 PM BASS MECHANISM MAKER) WBC 18.8(H) 3.8 - 9.9 K/cumm Comment:Testing performed by : [address] [address] Hgb 10.7(L) 11.9 - 15.5 g/dL TAWNYA Comment:Testing performed by : [address] [address] Hct 33.3(L) 35.6 - 45.5 % TAWNYA Comment:Testing performed by : [address] [address] Plt 502(H) 150 - 400 K/cumm TAWNYA Comment:Testing performed by : [address] [address] MPV 8.9(L) 9.1 - 12.3 fL TAWNYA Comment:Testing performed by : [address] [address] RBC 4.21 3.90 - 5.20 M/cumm TAWNYA Comment:Testing performed by : [address] [address] MCV 79.1(L) 81.3 - 96.4 fL TAWNYA Comment:Testing performed by : [address] [address] MCH 25.4(L) 27.1 - 33.3 pg TAWNYA Comment:Testing performed by : [address] [address] MCHC 32.1(L) 32.3 - 35.7 g/dL TAWNYA Comment:Testing performed by : [address], [address] RDW CV 14.9 11.1 - 14.9 % TAWNYA Comment:Testing performed by : [address] [address] RDW SD 43.0 35.7 - 48.1 fL TAWNYA Comment:Testing performed by : [address] [address] NRBC abs 0.00 0.00 - 0.01 K/cumm TAWNYA Comment:Testing performed by : [address] [address] Blood 08/19/2024 8:20 PM BASS MECHANISM MAKER 08/19/2024 8:24 PM BASS MECHANISM MAKER us Erik Westbrook NP LAB BLOOD ORDERABLES Final Resul t TAWNYA [address] [facility] [place] [address] * Comprehensive metabolic panel (08/19/2024 8:20 PM BASS MECHANISM MAKER) Sodium 140 135 - 145 mmol/L Comment:Testing performed by : [address] [address] Potassium, pl 3.5 3.3 - 4.9 mmol/L TAWNYA Comment:Testing performed by : [address] [address] Chloride 104 97 - 110 mmol/L TAWNYA Comment:Testing performed by : [address] [address] CO2 23 22 - 32 mmol/L TAWNYA Comment:Testing performed by : [address] [address] Anion gap 13 2 - 15 mmol/L TAWNYA Comment:Testing performed by : [address] [address] BUN 11 6 - 25 mg/dL TAWNYA Comment:Testing performed by : [address] [address] Creatinine 0.71 0.60 - 1.10 mg/dL TAWNYA Comment:Testing performed by : [address] [address] Glucose 136 70 - 199 mg/dL TAWNYA [...] was last revised 2022. Testing performed by: [address] [address] Calcium 9.2 8.5 - 10.3 mg/dL TAWNYA Comment:Testing performed by : [address] [address] Bilirubin, total <0.2 0.1 - 1.2 mg/dL TAWNYA Comment:Testing performed by : [address] [address] Protein, pl 7.5 6.5 - 8.5 g/dL [facility] Comment:Testing performed by : [address] [address] Albumin 4.4 3.5 - 5.0 g/dL TAWNYA Comment:Testing performed by : [address], [address] Alk phos 74 40 - 130 Units/L [facility] Comment:Testing performed by : [address] [id number] ALT 29 7 - 45 Units/L [facility] Comment:Testing performed by : [address] [address] AST 19 10 - 45 Units/L [facility] Comment:Testing performed by : [address] [address] Blood 08/19/2024 8:20 PM BASS MECHANISM MAKER 08/19/2024 8:24 PM BASS MECHANISM MAKER Erik Westbrook NP LAB BLOOD ORDERABLES Final Resul t [facility] [address] [facility] Department [place] [address] * Critical Care (08/19/2024 5:13 PM BASS MECHANISM MAKER) Narrative Erik Westbrook NP - 08/19/2024 5:13 PM BASS MECHANISM MAKER Erik Westbrook NP 08/19/2024 9:10 PM Critical [...] Final Result from Last 3 Months Insurance [employer] OPEN ACCESS [facility] HMO/PPO Address: [address] [place] [address] [facility] HMO/PPO Address: [address] [place] [address] Advance Directives For more information, please contact: [phone] * Full Code (Latest Code Status on File) Date Activated Date Inactivated Comments 09/23/2024 7:38 PM 09/24/2024 5:41 PM * Full Code Date Activated Date Inactivated Comments 09/01/2024 7:30 PM 09/05/2024 3:39 PM * Full Code Date Activated Date Inactivated Comments 08/19/2024 9:45 PM 08/22/2024 5:15 PM Care Teams Home Attendant Relationship Specialty Start Date End Date Shannan Maldonado MD PCP - General 09/07/19
--- OUTSIDE RECORDS SUMMARY | 2024-09-29 15:06 | XMS_ITS | Encounter Summary ---
Author Organization [facility] Healthcare Address [address] [place] [address] Care Team Providers Care Beam Dyer Name Role Phone Shannan Maldonado MD Primary Care Provider [phone] Reason for Visit * Reason Comments Shortness of Breath Encounter Details Date Type Department Care Team (Late st Contact Info) Description 09/28/2024 7:55 PM CDT - 09/28/2024 10:39 PM CDT Emergency [facility] Emergency Department [address] [place] [address] [id number] Simran Frank MD [address] [place] [address] [place] [address] Allergic reaction, initial encounter (Primary Dx) Discharge Disposition: Discharge to home or self care Social History Tobacco Use Types Packs/Day Years Used Date Smoking Tobacco: Never Smokeless Tobacco: Never Alcohol Use Standard Drinks/Week Comments Not Currently 0 (1 standard drink = 0.6 oz pur e alcohol) [facility] Utilities Answer Date Recorded In the past 12 months has [employer] electric, gas, oil, or water company threatened [...] often do you attend chur ch or sabianist services? Never 09/24/2024 Do you belong to any clubs o r organizations such as druze groups, unions, fraternal or athletic groups, or [...] any time in the past 12 m [facility], were you homeless or living [...] on file Legal Sex Female 1:34 AM PATIENT SUPPORT ASSISTANT Gender Identity Female 07/01/2022 7:31 PM PATIENT SUPPORT ASSISTANT Sexual Orientation Not on file documented as [...] Care Everywhere. * ALLERGIC REACTION, OTHER (LOCAL) (CHILEAN) documented in this encounter Medications at Time [...] reconstruction 10/2009 (Added by TW Conv) ??? AK BIOPSY MUSCLE SUPERFICIAL Biopsy Muscle - 2006 (Added by TW Conv) ??? AK COLONOSCOPY FLX DX W/COLLJ SPEC WHEN PFRMD Colonoscopy - (Added by TW Conv) AK DILATION & CURETTAGE DX&/THER NONOBSTETRIC Dilation And Curettage - (Added by TW Conv) ??? AK RELEASE TARSAL TUNNEL Decompression Tarsal Tunnel Release Left Foot - (Added by TW Conv) AK TONSILLECTOMY PRIMARY/SECONDARY <AGE 12 Tonsillectomy - (Added by TW Conv) ??? WISDOM TOOTH EXTRACTION Oral Surgery Tooth Extraction Benezett Tooth - (Added by TW Conv) Family [...] (Exact Date) SpO2 97% BMI 32.32 kg/m?? [facility] ED Course as of 09/28/242233 Time: [...] MD This examination was transcribed using the [employer] voice recognition system without human yeast cake cutter. In an effort to expedite patient care, this report has not been adjusted for typographical, grammatical, and syntax by a trained medical research scientist. Clinical Impression: No diagnosis found. 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 Wheezes throughout upon auscultation with audible [...] by Shirley Reardon M.D. 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 Wheezes throughout upon auscultation with audible [...] Shirley Reardon M.D. 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 Wheezes throughout upon auscultation with audible [...] Arnold Chahal M.D. KH: GLADYS Report ID: [id number] Reading Location: [place] [address] Simran Frank MD IMG XR PROCEDURES Final [...] was last reviewed 2021. Testing performed by: [address] [address] Blood 09/28/2024 8:10 PM CDT 09/28/2024 8:12 PM CDT us Simran Frank MD LAB BLOOD ORDERABLES Ruthy trivedi Result [facility] [address] [facility] [place] [address] * (ABNORMAL) Differential, auto (09/28/2024 8:10 PM CDT) Neutrophil abs 12.9(H) 1.5 - 6.5 K/cumm Comment:Testing performed by : [address] [address] Imm gran abs 0.2(H) 0.0 - 0.1 K/cumm [facility] Comment:Testing performed by : [address] [address] Lymphocyte abs 3.9(H) 0.8 - 3.3 K/cumm [facility] Comment:Testing performed by : [address] [address] Monocyte abs 1.6(H) 0.2 - 0.8 K/cumm [facility] Comment:Testing performed by : [address] [address] Eosinophil abs 0.0 0.0 - 0.5 K/cumm [facility] Comment:Testing performed by : [address] [address] Basophil abs 0.0 0.0 - 0.1 K/cumm [facility] Comment:Testing performed by : [address] [address] Neutrophil pct 69.2 % [facility] Comment: Interpretive Data Percent cell count reference ranges are not reported, since discordance with absolute values may lead to misinterpretation of CBC data. Current Interpretive Data was last revised on 2017. Testing performed by: [address] [address] Imm gran pct 1.1 % [facility] Comment: Interpretive Data Percent cell count reference ranges are not reported, since discordance with absolute values may lead to misinterpretation of CBC data. Current Interpretive Data was last revised on 2017. Testing performed by: [address] [address] Lymphocyte pct 20.7 % [facility] Comment: Interpretive Data Percent cell count reference ranges are not reported, since discordance with absolute values may lead to misinterpretation of CBC data. Current Interpretive Data was last revised on 2017. Testing performed by: [address] [address] Monocyte pct 8.7 % [facility] Comment: Interpretive Data Percent cell count reference ranges are not reported, since discordance with absolute values may lead to misinterpretation of CBC data. Current Interpretive Data was last revised on 2017. Testing performed by: [address] [address] Eosinophil pct 0.1 % [facility] Comment: Interpretive Data Percent cell count reference ranges are not reported, since discordance with absolute values may lead to misinterpretation of CBC data. Current Interpretive Data was last revised on 2017. Testing performed by: [address] [address] Basophil pct 0.2 % [facility] Comment: Interpretive Data Percent cell count reference ranges are not reported, since discordance with absolute values may lead to misinterpretation of CBC data. Current Interpretive Data was last revised on 2017. Testing performed by: [address] [address] Blood 09/28/2024 8:10 PM CDT 09/28/2024 8:11 PM CDT us Simran Frank MD LAB BLOOD ORDERABLES Ruthy trivedi Result [facility] [address] [facility] [place] [address] * (ABNORMAL) Comprehensive metabolic panel (09/28/2024 8:10 PM CDT) Sodium 142 135 - 145 mmol/L Comment:Testing performed by : [address] [address] Potassium, pl 3.2(L) 3.3 - 4.9 mmol/L [facility] Comment:Testing performed by : [address] [address] Chloride 103 97 - 110 mmol/L [facility] Comment:Testing performed by : [address] [address] CO2 23 22 - 32 mmol/L [facility] Comment:Testing performed by : [address] [address] Anion gap 16(H) 2 - 15 mmol/L [facility] Comment:Testing performed by : [address] [address] BUN 18 6 - 25 mg/dL [facility] Comment:Testing performed by : [address] [address] Creatinine 0.80 0.60 - 1.10 mg/dL [facility] Comment:Testing performed by : [address] [address] Glucose 108 70 - 199 mg/dL [facility] [...] was last revised 2022. Testing performed by: [address] [address] Calcium 10.0 8.5 - 10.3 mg/dL [facility] Comment:Testing performed by : [address] [address] Bilirubin, total <0.2 0.1 - 1.2 mg/dL [facility] Comment:Testing performed by : [address] [address] Protein, pl 7.4 6.5 - 8.5 g/dL [facility] Comment:Testing performed by : [address] [address] Albumin 4.4 3.5 - 5.0 g/dL [facility] Comment:Testing performed by : [address] [address] Alk phos 77 40 - 130 Units/L [facility] Comment:Testing performed by : [address] [address] ALT 28 7 - 45 Units/L [facility] Comment:Testing performed by : [address] [address] AST 22 10 - 45 Units/L [facility] Comment:Testing performed by : [address] [address] Blood 09/28/2024 8:10 PM CDT 09/28/2024 8:12 PM CDT us Simran Frank MD LAB BLOOD ORDERABLES Ruthy trivedi Result [facility] [address] [facility] [place] [address] * (ABNORMAL) CBC with auto differential (09/28/2024 8:10 PM CDT) [facility] WBC 18.6(H) 3.8 - 9.9 K/cumm Comment:Testing performed by : [address] [address] Hgb 11.3(L) 11.9 - 15.5 g/dL [facility] Comment:Testing performed by : [address] [address] Hct 36.0 35.6 - 45.5 % [facility] Comment:Testing performed by : [address] [address] Plt 601(H) 150 - 400 K/cumm [facility] Comment:Testing performed by : [address] [address] MPV 9.1 9.1 - 12.3 fL [facility] Comment:Testing performed by : [address], [address] RBC 4.56 3.90 - 5.20 M/cumm [facility] Comment:Testing performed by : [address] [address] MCV 78.9(L) 81.3 - 96.4 fL [facility] Comment:Testing performed by : [address] [address] MCH 24.8(L) 27.1 - 33.3 pg [facility] Comment:Testing performed by : [address] [address] MCHC 31.4(L) 32.3 - 35.7 g/dL [facility] Comment:Testing performed by : [address] [address] RDW CV 15.2(H) 11.1 - 14.9 % [facility] Comment:Testing performed by : [address] [address] RDW SD 43.6 35.7 - 48.1 fL [facility] Comment:Testing performed by : [address] [address] NRBC abs 0.03(H) 0.00 - 0.01 K/cumm [facility] Comment:Testing performed by : [address] [address] Blood 09/28/2024 8:10 PM CDT 09/28/2024 8:11 PM CDT us Simran Frank MD LAB BLOOD ORDERABLES Ruthy farooq Result [facility] [address] [facility] [place] [address] documented in this encounter Visit Diagnoses Diagnosis [...] attest that the patient meets the approved [facility] Use Criteria: Yes Given 09/28/2024 9:05 [...] attest that the patient meets the approved [facility] Use Criteria: Yes 2105 (Given - Provid er: Susan Brown CRTT) methylPREDNISolone sodium succinate (SOLU-medrol) preservative free injection 125 mg (COMPLETED) 125 mg, intravenous, Administer over 3 Minutes, Once, On 09/28/24 at 1958, For 1 dose 2015 (Given - Provid er: Ruiz Wilson RN) documented in this encounter Care Teams Beam Dyer Relationship Specialty Start Date End Date Shannan Maldonado MD PCP - General 09/07/19 documented as of this encounter
--- OUTSIDE RECORDS SUMMARY | 2024-09-29 15:06 | XMS_ITS | Continuity of Care Document ---
Author Organization [facility] Address [address] [place] [address] Phone Care Team Providers Care Lending Advisor Name Role Phone Manuel Anthony MD Unavailable [...] Diagnoses Date Provider Providers Copied on Encounter [facility], [address], [place], [place], [id number] , [place] tel: [phone] [facility] No Information 2 Gabrielle Jackson. [address] , [place], [place], [address] , [place]. tel: [phone] Referring Provider: Lazarus Blandon, [address], [place], [address]. tel:[phone] [facility], [address], [place], [place], [address] , [place] tel: [phone] [facility] No Information 6 Lawson Cai. [address] [place] [address], [id number] , [place]. tel: [phone] [facility], [address], [place], [place], [address] , [place] tel: [phone] [facility] Abdominal pain, unspecified abdominal locationGastroesop hageal reflux disease without esophagitisFlatule nce symptomIrritable bowel syndrome without diarrhea 6 Aida Nava. [address] [facility], [address], [place], [place], [id number] , [place]. tel: [phone] Referring Provider: Shannan Maldonado, [address], [place], [address]. tel:[phone] [facility], [address], [place], [place], [address] , [place] tel: [phone] [facility] No Information 5 Lawson Cai. [address], [id number] , [place]. tel: [phone] [facility], [address], [place], [place], [address] , [place] tel: [phone] [facility] Anaphylaxis, initial encounter Lawson Cai. [address], [id number] , [place]. tel: [phone] [facility], [address], [place], [place], [id number] , tel: [phone] [facility] Anaphylaxis, initial encounter Lawson Cai. [address], [id number] , [place]. tel: [phone] [employer] [facility], [address], [place], [place], [address] , tel: [phone] [facility] Anaphylaxis, initial encounter Lawson Cai. [address], [id number] , [place]. tel: [phone] Referring Provider: Shannan Maldonado [address] [place], [address]. tel:[phone] Family History Family Member Type Diagnosis Age At Onset No Information Payers Payer name Insurance type Covered green party ID Herminia cervantes(s) SANYA PASTRANA CI [id number] Social History Type Description Quantity Date Captured [...]
--- OUTSIDE RECORDS SUMMARY | 2024-09-29 15:06 | XMS_ITS | Clinical Summary ---
Author Organization [facility] Address [address] [place] [address] Care Team Providers Care Program Technician Name Role Phone Shannan Maldonado MD Primary Care Provider [phone] Source Comments [facility] Affiliates and Associated Physician Practices is amultiple site organization consisting of ambulatory clinics and hospital sitesin [place], [place], [place] and [place]. This disclosure is being madepursuant to the Care Everywhere program and may not contain all information available regarding this patient. Last updated 18.[facility] Allergies Active Allergy Reactions Criticality Noted Date [...] fluticasone propionate (FLONASE) 50 MCG/ACT nasal spray [place] 2 sprays into each nostril once daily [...] 06/13/2019 Assessment & Plan (06/13/2019 10:22 AM MANAGER MATERIALS MANAGEMENT): POTS patients commonly have mast cell disorders. [...] 2015 Assessment & Plan (06/13/2019 10:19 AM MANAGER MATERIALS MANAGEMENT): Would avoid high osmotic salt loads/salt tablets. Ok to just liberalize salt intake and eat banannas for potassium Postural orthostatic tachycardia syndrome 2015 Assessment & Plan (09/05/2019 10:06 AM MANAGER MATERIALS MANAGEMENT): Her symptoms are well-controlled today. She dislocated [...] intake. Assessment & Plan (06/13/2019 10:47 AM MANAGER MATERIALS MANAGEMENT): Postural orthostatic tachycardia syndrome (POTS) is a [...] 05/21/2010 Assessment & Plan (09/05/2019 10:07 AM MANAGER MATERIALS MANAGEMENT): She had a routine screening echo today. Her aortic root today does not appear dilated by my view. Will await final read and call her if this is abnormal. Otherwise, q2yr echo. Assessment & Plan (06/13/2019 10:18 AM MANAGER MATERIALS MANAGEMENT): The patient was diagnosed with EDS several [...] Comments Blood Pressure 122/90 09/05/2019 9:40 AM MANAGER MATERIALS MANAGEMENT Pulse 112 09/05/2019 9:40 AM MANAGER MATERIALS MANAGEMENT Temperature 36.8 C (98.2 F) 03/02/2019 7:52 AM CDT Respiratory Rate 18 03/02/2019 7:52 AM CDT Oxygen Saturation 99% 06/13/2019 8:42 AM MANAGER MATERIALS MANAGEMENT Inhaled Oxygen Concentration - - Weight 63.5 kg (140 lb) 09/05/2019 8:22 AM MANAGER MATERIALS MANAGEMENT Height 170.2 cm (5' 7 ) 09/05/2019 8:22 AM MANAGER MATERIALS MANAGEMENT Body Mass Index 21.93 09/05/2019 8:22 AM MANAGER MATERIALS MANAGEMENT Plan of Treatment Upcoming Encounters Date Type Department Care Team (Late st Contact Info) Description 11/08/2024 3:40 PM CDT Office Visit [facility] - Cardiology [address], [facility] [address] [place] [address] Javed Julio MD [address] [place] [address] Health Maintenance Due Date Last [...] ve Non-react hayder 02/28/2019 4:05 PM CDT [facility] Comment: Neither HIV-1 p24 Antigen nor HIV-1/HIV-2 Antibodies are detected. Blood BLOOD SPECIMEN / Unknown Venipuncture / Unknown 02/28/2019 1:57 PM CDT 02/28/2019 3:22 PM CDT Abel Barrientos MD LAB - HEMATOLOGY ORD ERABLES [address] [phone] from Last 3 Months or Most Recently Relevant to Health Maintenance Advance Directives * Full Code (Latest Code Status on File) Date Activated Date Inactivated Comments 02/28/2019 11:41 PM 03/02/2019 12:34 PM * Full Code Date Activated Date Inactivated Comments 02/28/2019 8:46 PM 02/28/2019 11:41 PM Care Teams Program Technician Relationship Specialty Start Date End Date Shannan Maldonado MD [address] [place] [address] PCP - General Family Medicine 03/22/16
[2024-09-29] MEDS: methylPREDNISolone SOD SUCC 125 MG VIAL IM (15:45)
[2024-09-29] MEDS: FAMOTIDINE 20 MG TABLET PO (15:46)
[2024-09-29] MEDS: diphenhydrAMINE HCl CAP 25 MG CAPSULE PO (15:46)
[2024-09-29 15:47] VITALS: PULSE 128; RESP 24
[2024-09-29] MEDS: IPRATROPIUM 0.5 MG/ALBUTEROL SULFATE 2.5 MG AMPUL.NEB 3 ML INHALATION (15:47)
[2024-09-29 15:54] VITALS: PULSE 121; RESP 19
[2024-09-29 15:55] VITALS: PULSE 114; RESP 18
--- NOTE | 2024-09-29 16:18 | ED.ALLEREA ---
HPI - Allergic Reaction General Chief complaint: Allergic Reaction Stated complaint: Allergic reaction-shortness of breath Time Seen by Provider: 09/29/24 14:56 Source: patient and old records reviewed Mode of arrival: ambulatory Limitations: no limitations History of Present Illness HPI narrative: Patient is a 34-year-old female, with past medical history of EDS, POTS, idiopathic anaphylaxis/ mast cell activation syndrome, recurrent jaw dislocations, who presents to the ED with c/o allergic reaction. Patient has history of recurrent allergic reactions. States she has been having a flare for the past 2 months. Her production or plant engineer is aware. She has an appointment next Monday. Has been seen in our facility numerous times and hospitalized at [facility] several times recently. Patient was seen in our ED 3 days ago for similar symptoms. She was also seen at [facility] again last night. Reports today around 130, she began having itching and flushing of her face. Began having hives and difficulty breathing. Took her EpiPen and prompted here for further evaluation. Also took Benadryl and Pepcid at this morning. C/o tingling of lips and tongue, scratchy throat, diffuse itching. Reports some difficulty breathing. Denies nausea, vomiting. Related Data Home Medications ?Medication ?Instructions ?Recorded ?Confirmed ?Last Taken ?Type epinephrine 0.3 mg/0.3 mL 0.3 mg IM ONCE PRN Allergic 05/30/23 08/26/24 Unknown History injection, auto-injector Reaction famotidine 40 mg tablet 40 mg PO DAILY 05/30/23 08/26/24 Unknown History drospirenone 3 mg-ethinyl 1 tablet PO DAILY 08/08/24 08/26/24 Unknown History estradiol 0.03 mg tablet (Dana (28)) Allergies Allergy/AdvReac Type Severity Reaction Status Date / Time peanut Allergy Severe Anaphylaxis, Verified 09/26/24 11:08 HIVES tree nut Allergy Severe Anaphylaxis Verified 09/26/24 11:08 hydromorphone Allergy Intermediate Hives / Verified 09/26/24 11:08 Red Face clarithromycin Allergy Mild N/V Verified 09/26/24 11:08 hydrocodone Allergy Mild Itching Verified 09/26/24 11:08 meperidine Allergy Mild Nausea and Verified 09/26/24 11:08 Vomiting azithromycin Allergy Unknown N/V, Verified 09/26/24 11:08 DIARRHEA, ABD CRAMPING. duloxetine Allergy Unknown BULGING Verified 09/26/24 11:08 EYES ondansetron Allergy Unknown PROLONGED Verified 09/26/24 11:08 QT lorazepam AdvReac Irritable Verified 09/26/24 11:08 ENERGY DRINKS Allergy Mild ORAL Uncoded 09/26/24 11:08 SWELLING WATERMELON-LEMON TONTO APACHE SLURPY Allergy Mild ORAL Uncoded 09/26/24 11:08 SWELLING Review of Systems Review of Systems: All systems reviewed & are unremarkable except as noted in HPI. All systems reviewed & are unremarkable except as noted in HPI and below [facility] Past Medical History Medical History GERD (gastroesophageal reflux disease) Chronic constipation Early satiety Nausea and vomiting Mast cell activation syndrome Dislocation of toe of right foot Anxiety Idiopathic anaphylaxis 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 Code status: Full code. Smoking status: Never smoker Second hand tobacco smoke exposure: No Alcohol intake: current Drinks per week: 1 Alcohol use details: VERY RARE Substance use: never Substance use type: does not use Lack of Transportation: No Lack of Food: Never True Current Housing: I Have Housing Concerned About Future Housing: No Difficulty Paying Gas/Electric Bills: No Difficulty Paying for Meds: No Currently Unemployed: No Education: High School Diploma/GED Difficulty w/ Childcare or Family Care: No Living arrangements: with family Additional living arrangements comments: Lives in [place] with her . No children. She is adopted. 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 Gender identity (if verbalized by the patient): Female Sexual Orientation (if Verbalized by the Patient): Straight or Heterosexual Spiritual care concerns: No Exam Narrative: GENERAL: mildly ill and anxious appearing, well-nourished, non-toxic, in no acute distress. HEAD: Normocephalic, atraumatic. RESPIRATORY: Airway patent, respirations are mildly tachypneic. There is some upper airway wheezing, but no stridor. Scattered wheezing in lung white bilaterally. CARDIOVASCULAR: Tachycardic with regular rhythm without murmurs, rubs, or gallops. MUSCULOSKELETAL: Moves all extremities. No gross deformities. SKIN: Warm, dry, normal color. Flushed appearance to facial cheeks and upper chest. No significant urticaria. NEURO: A&O X3. Speech clear. Cranial nerves II-XII grossly intact. Steady gait. No ataxic movements. PSYCHIATRIC: Appropriate mood and affect. Normal interaction. Course Vital Signs Vital signs: Vital Signs Temperature 97.8 F 09/29/24 14:40 Pulse Rate 136 H 09/29/24 14:40 Respiratory Rate 24 H 09/29/24 14:40 Blood Pressure 161/107 H 09/29/24 14:40 Pulse Oximetry 99 09/29/24 14:40 Oxygen Delivery Room Air 09/29/24 14:40 Temperature 97.8 F 09/29/24 14:40 Pulse Rate 106 H 09/29/24 19:29 Respiratory Rate 18 09/29/24 15:55 Blood Pressure 161/107 H 09/29/24 14:40 Pulse Oximetry 98 09/29/24 14:43 Oxygen Delivery Room Air 09/29/24 14:43 MDM - Allergic Reaction MDM Narrative Medical decision making narrative: Patient presented to ED with recurrent allergic reaction. History of mast cell activation syndrome, idiopathic anaphylaxis. Well known to our facility. Today EpiPen prior to arrival. Patient tachycardic upon arrival, but this is chronic for her per previous records/ED visits. Has Hx of POTS and just received Epi. No evidence of angioedema or ongoing anaphylaxis at this time. Patient given nebulizer treatment, Benadryl, Pepcid, Solu-Medrol in the ED. She was monitored for several hours and did not require additional epinephrine doses. She did call out at one point with increased difficulty swallowing and itching. Subjective finding. Still no evidence of angioedema or anaphylaxis at this time. Patient speaking in full sentences. Vitals remain stable. Given additional dose of benadryl oral. On reeval, she is feeling improved. She feels ready to go home at this time. Feel she is safe for discharge home with close outpatient follow-up with her production or plant engineer. She has follow-up on Monday of this week. She is also supposed to see an production or plant engineer with [facility] soon. Given strict return precautions. She agrees w/ plan. Discharged in stable condition. Vitals stable at time of d/c. Medical Records Attestation: I reviewed the patient's medical records. Discharge Plan Discharge Clinical Impression: Mast cell activation syndrome Patient Disposition: Home, Self-Care Condition: Stable Instructions: Antibiotic Form, Anaphylaxis (ED), Allergies (ED), General Allergic Reaction (ED) Additional Instructions: Continue steroids, Pepcid, Benadryl as prescribed. Follow-up closely with your allergists for further evaluation. Return to the ED for new or worsening concerns. Patient Language: Arabic Prescriptions: No Action drospirenone-ethinyl estradiol [Dana (28)] 3-0.03 mg tablet 1 tablet PO DAILY albuterol sulfate 90 mcg/actuation HFA aerosol inhaler 1 inh inhalation Q4H PRN (Reason: shortness of breath or wheezing) Qty: 8.5 0RF budesonide 90 mcg/actuation aerosol powdr breath activated 1 inh inhalation Q12H Qty: 1 0RF prednisone 50 mg tablet 50 mg PO DAILY Qty: 5 0RF epinephrine 0.3 mg/0.3 mL auto-injector 0.3 mg IM ONCE PRN (Reason: Allergic Reaction) Rx Instructions: as a single dose; may repeat once famotidine 40 mg tablet 40 mg PO DAILY cyclobenzaprine 10 mg tablet 10 mg PO TID PRN (Reason: muscle spasm) Qty: 30 0RF tramadol 50 mg tablet 50 mg PO Q6H PRN (Reason: pain) Qty: 21 0RF triamcinolone acetonide 0.1 % paste See Rx Instructions .ROUTE .COMPLEX Qty: 5 1RF Dose Instruction: APPLY TO DENTAL AREA AT BEDTIME, AFTER FOOD, DRINK OR ORAL HYGIENE Rx Instructions: APPLY TO DENTAL AREA AT BEDTIME, AFTER FOOD, DRINK OR ORAL HYGIENE metoclopramide HCl 10 mg tablet See Rx Instructions .ROUTE .COMPLEX Qty: 60 3RF Dose Instruction: TAKE 1 TABLET BY MOUTH TWICE DAILY NEEDED FOR NAUSEA OR VOMITING Rx Instructions: TAKE 1 TABLET BY MOUTH TWICE DAILY NEEDED FOR NAUSEA OR VOMITING diazepam 5 mg tablet 5 mg PO BID PRN (Reason: anxiety) Qty: 60 0RF trazodone 50 mg tablet 50 mg PO QHS PRN (Reason: Sleep) Qty: 90 1RF prochlorperazine maleate 10 mg tablet See Rx Instructions .ROUTE .COMPLEX Qty: 90 0RF Dose Instruction: TAKE 1 TABLET BY MOUTH EVERY 6 HOURS NEEDED FOR NAUSEA OR VOMITING Rx Instructions: TAKE 1 TABLET BY MOUTH EVERY 6 HOURS NEEDED FOR NAUSEA OR VOMITING Follow-up/Referrals: Shannan Maldonaod MD [Primary Care Provider] - Time of Disposition: 19:35
[2024-09-29] MEDS: diphenhydrAMINE HCL ELIXIR 12.5 MG/5 ML UDC 50 MG PO (19:00)
[2024-09-29 19:29] VITALS: PULSE 106
== END 2024-09-29 19:35 | disposition home or self-care (01) ==
PROVIDERS: Emergency Provider Physician Assistant; PCP Family Medicine
DX: T78.2XXA Anaphylactic shock, unspecified, initial encounter (principal); D89.40 Mast cell activation, unspecified; J45.909 Unspecified asthma, uncomplicated; G90.A Postural orthostatic tachycardia syndrome [POTS]; K58.1 Irritable bowel syndrome with constipation; Q79.60 Ehlers-Danlos syndrome, unspecified; Z79.60 Long term (current) use of unspecified immunomodulators and immunosuppressants
CPT/HCPCS: 94640; 96372; 99283; A9270; J2919

== ENCOUNTER 2024-09-30 15:27 | Emergency (ER) | payer OTHER, SELFPAY ==
[2024-09-30] VITALS (18 sets, daily range): BP systolic 115–171; BP diastolic 91–126; PULSE 102–131; RESP 17–29; TEMP 36.5–36.9; O2SAT 95–99
--- OUTSIDE RECORDS SUMMARY | 2024-09-30 16:57 | XMS_ITS | Continuity of Care Document ---
Author Organization [email or web address] Address [address] [place] [address] Phone Care Team Providers Care Game Artist Name Role Phone Manuel Anthony MD Unavailable [...] Diagnoses Date Provider Providers Copied on Encounter [facility], [address], [place], [place], [id number] , [place] tel: [phone] [facility] No Information 2 Gabrielle Jackson. [address] , [place], [place], [id number] , [place]. tel: [phone] Referring Provider: Lazarus Blandon, [address], [place], [address]. tel:[phone] [email or web address], [address], [place], [place], [address] , [place] tel: [phone] [facility] No Information [address] [place] [address], [id number] , [place]. tel: [phone] [email or web address], [address], [place], [place], [address] , [place] tel: [phone] [facility] Abdominal pain, unspecified abdominal locationGastroesop hageal reflux disease without esophagitisFlatule nce symptomIrritable bowel syndrome without diarrhea 6 Aida Nava. [address] [facility], [address], [place], [place], [id number] , [place]. tel: [phone] Referring Provider: Shannan Maldonado, [address], [place], [address]. tel:[phone] [email or web address], [address], [place], [place], [address] , [place] tel: [phone] [facility] No Information 5 Lawson Cai. [address], [id number] , [place]. tel: [phone] [email or web address], [address], [place], [place], [address] , [place] tel: [phone] [facility] Anaphylaxis, initial encounter Lawson Cai. [address], [id number] , [place]. tel: [phone] [facility], [address], [place], [place], [address] , tel: [phone] [facility] Anaphylaxis, initial encounter Lawson Cai. [address], [id number] , [place]. tel: [phone] [facility], [address], [place], [place], [address] , tel: [phone] [facility] Anaphylaxis, initial encounter Lawson Cai. [address], [id number] , [place]. tel: [phone] Referring Provider: Shannan Maldonado [address] [place], [address]. tel:[phone] Family History Family Member Type Diagnosis Age At Onset No Information Payers Payer name Insurance type Covered libertarian ID Herminia cervantes(s) SANYA PASTRANA CI [id number] Social History Type Description Quantity Date Captured [...]
--- OUTSIDE RECORDS SUMMARY | 2024-09-30 16:57 | XMS_ITS | Data Portability ---
Author Organization [place] [facility] [place] [email or web address] Address [address] [place] [address] Care Team Providers Care Ug Designer Name Role Phone JOSH GONZALES Primary Care Provider Assessment Encounter Date Assessment Date Assessment LastModified by Organization Details LastModified Time 02/03/2020 02/03/2020 Time spent with patient:_30_mi juwan. For Telephone Audio Only Visits: Have you been seen in the last 7 days for the same or similar condition by an [facility] provider? No I did not request that [...] rologist referral 2022 023 MY perez MD, [address], [place], [address], 3 12:45:36 Procedures None recorded. Surgeries None recorded. Imaging None recorded. Medication Orders cyclobenza emily 10 mg tablet 2024 025 [facility][id number], [address], [place], [place], [id number], 5 14:27:32 cyclobenza emily 10 mg tablet 2023 024 [facility] #[id number], [address], [place], [place], [id number], 4 08:35:50 cyclobenza emily 10 mg tablet 2023 024 [facility] #98729, [address], [place], [place], [id number], 4 12:12:49 cyclobenza emily 10 mg tablet 2022 023 [facility] #21409, [address], [place], [place], [id number], 3 07:57:02 cyclobenza emily 10 mg tablet 2019 020 [facility], [address], [place], [place], [id number], 3 09:31:39 Patient TargetsNo targets recorded. Patient Instructions Encounter Date Encounter Id Patient Instructions Last Modified By Organization Details Last Modified Time 02/03/2020 [id number] hand-washing: ca re instructions btinkle Not available [...] Will renew cyclobenzaprine. 2) Can discuss with step down specialist installing posts and rubber bands to help stablize the jaw in the interim. 3) If further issues with the navicual/talar joint, may want transit clerk to speak with or you to see Dr. Sarath Medrano, a transit clerk with vast experience in [place] currently in [place]. May also want to consider stem cell injection in the joint as well. 4) Return to clinic in 6 months or earlier as needed I spent 30 minutes with the patient with greater than 20 minutes on counseling and coordination of care. btinkle Not available 02/03/2020 11:39:03 02/17/2023 [id number] 1) Encouraged to maintain fluids at 100 [...] on gastroparesis and lowFODMAP. 4) Referral to [facility] 5) Will renew cyclobenzaprine 10mg [...] record. btinkle Not available 02/20/2023 08:08:29 08/25/2023 [id number] 1) Continue with home exercise program 2) [...] record. btinkle Not available 08/25/2023 12:12:42 02/09/2024 [id number] 1) Continue home exercises 2) Will renew [...] record. 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 Denis Bush MD [address] [place] [address], [address], [place], [address] , [place] [facility] 5 14:31:39 Multiple joint pain 51162329 Active 2018 Not Available [facility] 3 03:21:18 Muscle pain 83561267 Active 2018 Not Available [facility] 3 03:21:18 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 Procedures Surgical History Date Name Laterality Status Provider Name and Address Organization Details Recorded Time 07/03/19 24 Foot Surgery completed Thelma Shabazz [place] [facility] 09/11/2024 14:05:06 07/03/19 22 Orthopedic surgery ss completed Calista Ovalle [place] [facility] 02/17/2023 09:39:02 04/08/20 19 Fall Risk Assessment ADULT completed John Greer LPN [place] [facility] 04/08/2019 09:34:06 11/13/19 16 tarsal tunnel release completed Denis Bush MD [address] [place] [address], [address] [facility], [place], [address], [place] [facility] 04/09/2019 16:03:02 11/01/19 11 tonsillectomy completed Denis Bush MD [address] [place] [address], [address], [place], [address], [place] [facility] 04/09/2019 16:03:25 11/07/19 10 Knee Surgery completed Denis Bush MD [address], [address], [place], [address], [place] [facility] 04/09/2019 16:02:02 Imaging Results None recorded. Procedure Notes None recorded. Medical Equipment None Reported. Allergies Allergen ID Allergen Name Allergen Category Reaction Reaction Severity Criticality Documentation Date Start Date Code Code System Note Provider Name and Address Organization Details Recorded Time 5894028 Cymbalta medicatio n Not available Not available Not available 04/08/2019 96655 4 RxNorm John Greer METAL SHEET ROLLER OPERATOR null, [place] [facility] 9 09:26:54 1910932 Biaxin medicatio n anaphylax is Not available Not available 04/08/2019 82645 9 RxNorm John Greer METAL SHEET ROLLER OPERATOR null, [facility] 9 09:27:19 3913085 Demerol medicatio n vomiting Not available Not available 04/08/2019 18233 1 RxNorm John Barrington METAL SHEET ROLLER OPERATOR null, [facility] 9 09:27:38 0836100 azithromy benedict medicatio n other Not available Not available 04/08/2019 41296 RxNorm vomit ing, sever stoma ch cramp ting, diarr hea John Greer METAL SHEET ROLLER OPERATOR null, [facility] 9 09:28:40 5169353 Dilaudid medicatio n hives lighthead edness Not available Not available Not available 04/08/2019 95263 3 RxNorm John Barrington METAL SHEET ROLLER OPERATOR null, [facility] 9 09:29:19 0765749 hydrocodo ne Not available anaphylax is severe Not available 02/03/2020 5489 RxNorm Tabby Yaron null, [place] [facility] 0 08:04:23 6611303 lorazepam medicatio n Not available Not available Not available 02/09/2024 6470 RxNorm Calista Vasquez null, [place] [facility] 4 08:11:35 Medications Name Sig Start Date [...] Available Not Available prednisone 50 mg tablet TAKE 1 TABLET BY MOUTH DAILY active Not Available Not Available No t Available promethazi ne 25 mg tablet 04/08 [...] 1 capsule as needed by oral route. 02/17 completed Not Available Not Available Not Available Flonase Allergy Relief 50 mcg/actuat ion nasal spray,susp ension [place] 1 spray every day by intranas al [...] 3 102 /min 172 cm 29.4 kg/m2 63555 g 138 mm[Hg] 88 mm[Hg] Calista Ovalle [facility] 3 09:40:12 Date Recorded Body height Provider Name an d Address Organization Details Last Updated DateTime 08/25/2023 172 cm Chapis Salas [facility] 08/25/2023 11:20:45 Social History Question Answer Notes LastModified by Organizat ion Details LastModified Time Tobacco Smoking Status Never Smoker Vinh Huizar LPN [facility] 04/08/2019 09:19:44 What Is Your Level Of Alcohol Consumption? Occasional [email or web address] Information not available 02/17/2023 Are You Blind Or Do You Have Difficulty Seeing? Yes Glasses Information not available 09/11/2024 What Is Your Level Of Caffeine Consumption? Moderate [email or web address] Information not available 09/11/2024 Are You Currently Employed? No [email or web address] Information not available 02/17/2023 Are You Deaf Or Do You Have Serious Difficulty Hearing? No [email or web address] Information not available 09/11/2024 What Type Of Diet Are You Following? REGULAR Information not available 02/17/2023 Do You Or Have You Ever Used E-cigarettes Or Vape? Never Used Electronic Cigarettes [email or web address] Information not available 04/08/2019 Physical Therapy No Informat ion not available 02/03/2020 Speech Therapy No Informatio n not available 02/03/2020 Occupational Therapy No Information not available 02/03/2020 Have You Had A Fever And/or Symptoms Of A Lower Respiratory Illness (cough, Difficulty Breathing, Etc)? No Information not available 02/03/2020 What Was The Date Of Your Most Recent Tobacco Screening? 09/11/2024 Information not available 09/11/2024 Do You Have Any Pets? Yes [email or web address] Information not available 02/17/2023 Do You Use Your Seat Belt Or Car Seat Routinely? Yes [email or web address] Information not available 02/17/2023 Do You Have Smoke And Carbon Monoxide Detectors In Your Home? Yes [email or web address] Information not available 02/17/2023 Do You Or Have You Ever Used Smokeless Tobacco? Never Used Smokeless Tobacco [email or web address] Information not available 04/08/2019 How Much Tobacco Do You Smoke? No [email or web address] Information not available 04/08/2019 Do You Use Any Illicit Or Recreational Drugs? No [email or web address] Information not available 09/11/2024 How Many Years Have You Smoked Tobacco? 0 [email or web address] Information not available 04/08/2019 Are You Currently In School? No [email or web address] Information not available 02/17/2023 Sex: Female Functional Status Question Answer Note LastModified by Organization D etails LastModified Time What is your exercise level? None [email or web address] Information not available 09/11/2024 Mental Status None recorded. Family History Nothing Reported. Medical History No medical history recorded. Gynecological HistoryNo gynecological history recorded. 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 41443366 Q79.62 Postural o rthostatic tachycardia syndrome 416804184 I95.1 [id number] Denis Bush MD IND_PED_D GH_DOC [address] [address] [place], [place] [address] [place] [address] 2 02/03/2020 08:02:45 02/03/2020 11:36:44 Health education given 932769749 Z71.9 Muscle pain 38772154 M79 .10 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 26551742 Q79.62 [id number] Denis Bush MD IND_PED_D GH_DOC [address] [address] [place], [place] [address] [place] [address] 2 02/17/2023 09:19:03 02/17/2023 10:23:58 Nausea and vomiting 90973031 R11.2 ?dysautono rosy Postural o rthostatic tachycardia syndrome 704624041 I95.1 Muscle pain 95695201 M79 .10 Multiple joint pain 3567 8005 M25.50 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 66073305 Q79.62 [id number] Denis Bush MD IND_PED_D GH[facility]DOC [address] [place] [address] [place] [address] 2 08/25/2023 11:20:24 08/25/2023 12:13:59 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 59398767 Q79.62 Multiple joint pain 3567 8005 M25.50 Postural o rthostatic tachycardia syndrome 464668398 I95.1 Muscle pain 43434470 M79 .10 [id number] Denis Bush MD IND_PED_D GH_DOC [address] [address] [place], [place] [address] [place] [address] 2 02/09/2024 08:10:27 02/09/2024 08:36:09 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 29302075 Q79.62 Multiple joint pain 3567 8005 M25.50 Postural o rthostatic tachycardia syndrome 582313175 I95.1 Muscle pain 61891984 M79 .10 [id number] Denis Bush MD IND_PED_D GH_DOC [address] [place] [address] [place] [address] 2 09/11/2024 14:02:38 09/11/2024 14:33:31 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 11627828 Q79.62 Postural o rthostatic tachycardia syndrome 144088492 I95.1 Muscle pain 43006722 M79 .10 Mast cell activation syndrome 4862996960 7127373 D89.40 Health Concerns Section Related Observation LastModified by Organization Detai ls LastModified Time None Recorded Concern Status LastModified by Organization Details LastModified Time None Recorded Advance Directives Directive None Recorded Payers Encounter Date Sequence Insurance Name Policy Number Policy Hilario Covered Member ID Hilario Member ID Guarantor Name 02/03/2020 1 [facility] [id number] Anson Koenig [id number] 2 Rosangela Koenig 02/17/2023 1 [facility] [id number] Anson Koenig [id number] Rosangela Koenig 08/25/2023 1 [facility] [id number] Anson Koenig [id number] 2 Rosangela Koenig 02/09/2024 1 [facility] [id number] Anson Koenig [id number] Rosangela Koenig Notes Date Note Type [...] navicular/talus dislocation. She is followed by a transit clerk and orthopedist. She has gone through two [...] follow up. She is currently working an step down specialist to fix her bite before consideration of an oral appliance. 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 She reports occasional migrating muscle spasms often involving her neck and back. Rosangela is having oral ulcers. She was referred to an bending machine operator to look at possible mast cell involvement. Denis Bush MD [address] [place] [address], [address], [place], [address], [facility] 02/03/2020 11:39:42 02/17/2023 text/html Rosangela is a [...] having idiopathic anaphylaxis. She has seen an egg gatherer who has told her it is not mast cell activation syndrome. She has been taking antihistamines and recently placed on Xolair. Rosangela has benefited from use of cyclobenzaprine but she has not been using it for fear of dependency. Rosangela has also had three syncopal convulsions. No MRI and no further workup. Denis Bush MD [address], [place], [address], [facility] 02/20/2023 08:08:48 08/25/2023 text/html Patient acknowle dged, [...] is helping. Denis Bush MD [address] [place] [address], [address], [place], [address], [facility] 08/25/2023 12:13:27 02/09/2024 text/html Patient acknowle dged, [...] MD [address], [address], [place], [address], [facility] 02/09/2024 08:35:35 09/11/2024 text/html Rosangela is a [...] MD [address] , [address], [place], [address], [place] [facility] [place] [facility] [place] 09/11/2024 14:32:39 OBGyn Episode No OBEpisode recorded.
--- OUTSIDE RECORDS SUMMARY | 2024-09-30 16:58 | XMS_ITS | Encounter Summary ---
Author Organization [facility] Address [address] [place] [address] Phone Care Team Providers Care Tearer Name Role Phone Shannan Maldonado MD Primary Care Provider [phone] Encounter Details Date Type Department Care Team (Late st Contact Info) Description 09/30/2024 Telephone [facility] Allergy and Immunology [address] [facility] [address] [place] [address] Ame Pulido RN Social History Tobacco Use Types Packs/Day Years Used Date Smoking Tobacco: Never Smokeless Tobacco: Never Alcohol Use Standard Drinks/Week Comments Not Currently 0 (1 standard drink = 0.6 oz pur e alcohol) [facility] Utilities Answer Date Recorded In the past 12 months has [employer], gas, oil, or water [employer] threatened to shut off services in your [...] often do you attend chur ch or sikh services? 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 Within the past month, been admitted 10-13 times and recently 4-5x this week. Pt goes to 2 different hospitals. Last couple times, breathing txs, liquid benadryl, shot of steroids, pepcid once she was able to swallow. Symptoms- sudden, unprovoked rash then swelling in her throat and tongue, numb and tingling in mouth, itchy skin and throat. Pt has self admin epi at home then follows up at the ER. Pt doesn't think xolair is working as effectively. documented in this encounter Plan of Treatment Not on file documented as of this encounter Visit Diagnoses Not on filedocumented in this encounter Care Teams Tearer Relationship Specialty Start Date End Date Shannan Maldonado MD PCP - General 09/07/19 documented as of this encounter
--- OUTSIDE RECORDS SUMMARY | 2024-09-30 16:58 | XMS_ITS | Clinical Summary ---
Author Organization [facility] Address [address] [place] [address] Care Team Providers Care Social Work Associate Name Role Phone Shannan Maldonado MD Primary Care Provider [phone] Celio Jacques MD Unavailable Allergies Active Allergy [...] this topic Medical Devices Implanted Type Area Extrusion Manager Device Identifier Shelf Expiration Date Model / Serial / Lot Staple Bone [id number] m 2m - [id number] Implanted:Qty: 1 on 02/16/2024 by Pranay Dejesus DPM at [facility] Sheila[employer]DANG [employer] Right: Foot [employer] 06/01/2027 [id number] / / [id number] Wire Ba .045in 4in - [id number] Implanted:Qty: 1 on 03/17/2023 by Pranay Dejesus DPM at [facility] Monique Right: Toe [employer] [id number] / / Description:Right second toe Insurance [facility] Care Teams Social Work Associate Relationship Specialty Start Date End Date Shannan Maldonado MD PCP - General 05/06/16 Celio Jacques MD [address] [facility] [address] [place] [address] CARDIOLOGY 03/14/23
--- OUTSIDE RECORDS SUMMARY | 2024-09-30 16:58 | XMS_ITS | Referral Summary ---
Author Organization [facility] Geena Hernandez Extdamian nsion Address [address] [facility] [address] [place] [address] Care Team Providers Care Molder Foam Rubber Name Role Phone Shannan Maldonado MD Primary Care Provider Encounters Date Type Department Care Team Description 09/30/2024 1:00 PM CDT Office Visit [facility] [address] [place] [address] [place] [phone] Oneyda Vaughan NP SOB (shortness of breath) (Primary Dx) 09/30/[address] [facility] [address] [place] [address] [place] [phone] Ame Pulido RN 09/28/2024 7:55 PM CDT - 09/28/2024 10:39 PM CDT Emergency [facility] Emergency Department [address] [place] [address] Simran Frank MD Allergic reaction, initial encounter (Primary Dx) Discharge Disposition: Discharge to home or self care 09/27/2024 3:49 AM CDT - 09/27/2024 6:10 AM CDT Emergency [facility] Emergency Department [address] [place] [address] Ferdinand Rivera DO Allergic reaction, initial encounter (Primary Dx); Jaw pain Discharge Disposition: Discharge to home or self care 09/23/2024 4:55 PM CDT - 09/24/2024 1:30 PM CDT Hospital Encounter [facility] 4 Med Surg [address] [place] [address] Samuel Bowen MD Winston, MD Nimesh Galaviz Md Shahin, MD Allergic reaction, initial encounter (Primary Dx) Discharge Disposition: Discharge to home or self care 09/01/2024 2:02 PM 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 - 09/05/2024 11:38 AM ASSOCIATE PROFESSOR [employer]INAL [employer] Hospital Encounter [facility] 4 [facility] Surg [address] [place] [address] Wil Monteiro MD Gaspe Mudiyanselage, MD Tobin Vinson, Venkat Robin MD Allergic reaction, initial encounter (Primary Dx) Discharge Disposition: Discharge to home or self care 08/19/2024 4:39 PM ASSOCIATE PROFESSOR OF [employer]IMINAL JUSTICE - 08/22/2024 1:15 PM ASSOCIATE PROFESSOR [employer]INAL JUSTICE Hospital Encounter [facility] 5 Med S[address] [place] [address] José Luis Tripp MD Winston, Jorje Lester MD Anaphylaxis, initial encounter (Primary Dx) Discharge Disposition: Discharge to home or self care from Last 3 Months Allergies Active Allergy Reactions Criticality Noted Date Comments Adhesive Blisters,Rash Medium 06/13/2019 Reaction: Rash, Blisters, Amoxicillin-Pot Clavulanate Itching Low 09/05/2024 Azithromycin Vomiting,Stomach upset,Other (See comments) High 05/21/2010 Stomach/GI Upset Clarithromycin Anaphylaxis,Swelling , Nausea & Vomiting High 05/21/2010 Swelling Clavulanic Acid Stomach upset High 10/07/2020 Stomach/GI Upset Duloxetine Fatigue,Itching,Othe r (See comments) Low 08/13/2010 Itching adverse reaction Hydrocodone Itching,Anaphylaxis, H feli High 01/13/2020 Itching Hydromorphone Hives,Palpitations,A n gioedema,Itching,Othe r (See comments) High 02/28/2019 Hives Lorazepam Other (See comments) 02/09/2024 Weird out of body Meperidine Vomiting,Nausea And Vomiting,Stomach upset,Nausea & Vomiting [...] day as needed for anxiety 20 tablet 021 Active pseudoephedrine ER (SUDAFED) 120 mg 12 [...] by mouth 2 (two) times a day 023 Active metoclopramide (REGLAN) 10 mg tablet Take 1 tablet (10 mg total) by mouth 2 (two) times a day as needed 023 Active triamcinolone (KENALOG) 0.1 % paste Apply [...] as needed for anaphylaxis 1 each 3 025 Active cyclobenzaprine (FLEXERIL) 10 mg tablet Take 1 tablet (10 mg total) by mouth 2 (two) times a day Active omalizumab (Xolair) 300 mg/2 mL syringe Inject 2 mL (300 mg total) under the skin every 14 (fourteen) days Active predniSONE (DELTASONE) 20 mg tabletIndicatio ns:Asthma Exacerbation Take 2 tablets (40 mg) by mouth daily 2 tablet 025 Active albuterol HFA (PROVENTIL HFA,VENTOLIN HFA,PROAIR HFA) 90 mcg/actuation inhaler Inhale 1 puff every 4 (four) hours as needed Active acetaminophen-a spirin-caffeine (EXCEDRIN MIGRAINE) 250-250-65 mg per tablet Take 1 tablet by mouth every 6 (six) hours as needed Active Pulmicort Flexhaler 90 mcg/actuation inhaler Inhale 1-2 puffs 2 (two) times a day 025 Active ipratropium-alb uteroL (DUO-NEB) 0.5-2.5 mg/3 mL nebulizer solutionIndicat ions:SOB (shortness of breath) Take 3 mL by nebulization every 6 (six) hours 180 mL 3 025 Active traMADoL (ULTRAM) 50 mg tablet Take 1 tablet (50 mg total) by mouth every 6 (six) hours as needed 2024 Discontinued omalizumab (XOLAIR) 150 mg injection Inject 1.2 mL (150 mg total) under the skin every 14 (fourteen) days 2024 Discontinued(A lternate therapy) cyclobenzaprine (FLEXERIL) 5 mg tablet Take 2 tablets (10 mg total) by mouth 2 (two) times a day 023 2024 Discontinued(A lternate therapy) EPINEPHrine (EpiPen) 0.3 mg/0.3 mL auto-injection syringeIndicati ons:Anaphylaxis Inject 0.3 mL (0.3 mg total) into the muscle as instructed as needed for anaphylaxis 1 each 025 2024 Discontinued amoxicillin-cla vulanate (AUGMENTIN) 875-125 mg [...] mg) daily for 2 days. 20 tablet 025 2024 Active Problems Problem Noted Date Diagnosed [...] drink = 0.6 oz pur e alcohol) [facility] [employer] Answer Date Recorded In the past 12 months has [place], gas, oil, or water [employer] threatened to shut off services in your [...] 09/24/2024 How often do you attend chur or congregational services? Never 09/24/2024 Do you belong to any clubs o r organizations such as anglican groups, unions, fraternal or athletic groups, or [...] money to buy more. Never true 09/25/19 25 Within the past 12 months, t he [...] time in the past 12 m [facility], were you homeless or living in a care home (including now)? No 09/24/2024 Personal Safety Answer Date Recorded Have you ever been in or are you currently in a harmful physical or emotional relationship or is someone making you feel afraid or unsafe? Denies 09/28/2024 Comments No Sex and Gender Information Value Date Recorded Sex Assigned at Not on file Legal Sex Female 1:34 AM ASSOCIATE PROFESSOR [employer]INAL JUSTICE Gender Identity Female 07/01/2022 7:31 PM ASSOCIATE PROF[employer]OR [employer] Sexual Orientation Not on file Last Filed Vital Signs Vital Sign Reading Time Taken Comments Blood Pressure 133/95 09/30/2024 12:51 PM CDT Pulse 115 09/30/2024 12:51 PM CDT Temperature 36.7 C (98.1 F) 09/30/2024 12:51 PM CDT Respiratory Rate 18 09/30/2024 12:51 PM CDT Oxygen Saturation 97% 09/30/2024 12:51 PM CDT Inhaled Oxygen Concentration - - Weight 94 kg (207 lb 3.2 oz) 09/30/2024 12:51 PM CDT Height 170.2 cm (5' 7 ) 09/30/2024 12:51 PM CDT Body Mass Index 32.45 09/30/2024 12:51 PM CDT Plan of Treatment Not on [...] AUTO DIFFERENTIAL STAT 09/28/2024 8:10 PM CDT ECG 12-LEAD Routine 09/28/2024 8:02 PM CDT EGFR STAT 09/27/2024 2:58 AM [...] VIEWS Critical/Life- Threatening 09/23/2024 8:29 PM CDT AR CLOSED TX STERNOCLAVICULAR DISLC W/MANIPULATION Routine 09/23/2024 [...] WITHOUT DIFFERENTIAL Routine 09/05/ 025 4:27 AM ASSOCIATE PROFESSOR [employer] CBC WITHOUT DIFFERENTIAL Routine 09/04/ 025 4:25 AM ASSOCIATE PROFESSOR [employer]IN[employer] TROPONIN T HIGH-SENSITIVITY 2-HOUR Timed 09/01/2024 5:11 PM ASSOCIATE PROFESSOR [employer] URINALYSIS AND REFLEX TO MICROSCOPIC AND CULTURE STAT 09/01/2024 4:58 PM ASSOCIATE PROF[employer] XR CHEST 1 VIEW ED 09/01/2024 3:05 PM ASSOCIATE PROFESS[employer] EGFR STAT 09/01/2024 2:59 PM ASSOCIATE PROFESSOR [employer] DIFFERENTIAL AUTO STAT 09/01/2024 2:5 9 PM ASSOCIATE PROFESSOR [employer] MAGNESIUM STAT 09/01/2024 2:59 PM ASSOCIATE PROFESSOR [employer] THYROID FUNCTION CASCADE STAT 025 2:59 PM ASSOCIATE PROFESSOR OF [employer]IMINAL JUSTICE TROPONIN T HIGH-SENSITIVITY SERIES (BASELINE, 2HR, 4HR, 6HR) STAT 09/01/2024 2:59 PM ASSOCIATE PROFESSOR [employer]IN[employer] BASIC METABOLIC PANEL STAT 09/01/2024 2:59 PM ASSOCIATE PROFESSOR [employer] CBC WITH AUTO DIFFERENTIAL STAT 09/01/2024 2:59 PM ASSOCIATE PROF[employer]OR [employer] POCT HCG, URINE Routine 09/01/2024 2:28 PM ASSOCIATE PROFESSOR [employer] ECG 12-LEAD Routine 09/01/2024 1:54 PM ASSOCIATE PROFESSOR [employer] EGFR Routine 08/22/2024 7:57 AM ASSOCIATE PROFESSOR [employer] CBC WITHOUT DIFFERENTIAL Routine 025 7:57 AM ASSOCIATE PROFESSOR [employer] BASIC METABOLIC PANEL Routine 08/22/2024 7:57 AM ASSOCIATE PROFESSOR [employer] EGFR Routine 08/21/2024 7:53 AM ASSOCIATE PROFESSOR [employer] CBC WITHOUT DIFFERENTIAL Routine 025 7:53 AM ASSOCIATE PROFESSOR OF [employer]INAL [employer]ICE BASIC METABOLIC PANEL Routine 08/21/2024 7:53 AM ASSOCIATE PROFESSOR [employer] AR CLOSED TX TEMPOROMANDIBULAR DISLOCATION 1ST/SBSQ Routine 08/20/2024 1:18 PM ASSOCIATE PROFESSOR [employer] ED MODERATE SEDATION Routine 08/20/2024 1:18 PM ASSOCIATE PROFESS[employer] XR MANDIBLE LESS THAN 4 VIEWS Critical/Life- Threatening 08/20/2024 11:41 AM ASSOCIATE PROFESSOR [employer]AL [employer] SEPSIS LACTATE WITH REFLEX Timed 08/20/2024 8:24 AM ASSOCIATE PROFESSOR [employer] EGFR Routine 08/20/2024 3:25 AM ASSOCIATE PROFESSOR [employer]AL [employer] CBC WITHOUT DIFFERENTIAL Routine 025 3:25 AM ASSOCIATE PROFESSOR [employer]ICE BASIC METABOLIC PANEL Routine 08/20/2024 3:25 AM ASSOCIATE PROFESSOR OF [employer]INAL [employer]ICE SEPSIS LACTATE WITH REFLEX Timed 08/20/2024 3:25 AM ASSOCIATE PROFESSOR [employer] ECG 12-LEAD Routine 08/20/2024 2:26 AM ASSOCIATE PROFESSOR [employer] SEPSIS LACTATE WITH REFLEX STAT 08/19/2024 8:52 PM ASSOCIATE PROFESSOR [employer]IN[employer] ECG 12-LEAD STAT 08/19/2024 8:25 PM ASSOCIATE PROFESSOR [employer]ICE EGFR STAT 08/19/2024 8:20 PM ASSOCIATE PROFESSOR [employer] DIFFERENTIAL AUTO STAT 08/19/2024 8:2 0 PM ASSOCIATE PROFESSOR [employer] CBC WITH AUTO DIFFERENTIAL STAT 08/19/2024 8:20 PM ASSOCIATE PROFESSOR [employer]ICE COMPREHENSIVE METABOLIC PANEL STAT 08/19/2024 8:20 PM ASSOCIATE PROFESSOR OF [employer]INAL JUSTICE ED CRITICAL CARE Routine 08/19/2024 5:13 PM ASSOCIATE PROFESSOR [employer]INAL JUSTICE from Last 3 Months Results * XR [...] anaphylaxis, 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 Wheezes throughout upon auscultation with audible wheezing. [...] Shirley Reardon M.D. 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 Wheezes throughout upon auscultation with audible wheezing. [...] Shirley Reardon M.D. 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 Wheezes throughout upon auscultation with audible wheezing. [...] Arnold Chahal M.D. 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 Wheezes throughout upon auscultation with audible wheezing. [...] Arnold Chahal M.D. KH: GLADYS Report ID: [id number] Reading Location: [place] [address] Simran Frank MD IMG XR PROCEDURES Final [...] reviewed 2021. Testing performed by: [facility], [address] [place] [address]., [id number] Blood 09/28/2024 8:10 PM CDT 09/28/2024 8:12 PM CDT Simran Frank MD LAB BLOOD ORDERABLES Ruthy l [facility] [address] [facility] Department [place] [address] * (ABNORMAL) Differential, auto (09/28/2024 8:10 PM CDT) Pathologist [facility] [place] Neutrophil abs 12.9(H) 1.5 - 6.5 K/cumm Comment:Testing performed by : [address] [address] Imm gran abs 0.2(H) 0.0 - 0.1 K/cumm [facility] Comment:Testing performed by : [address] [address] Lymphocyte abs 3.9(H) 0.8 - 3.3 K/cumm [facility] Comment:Testing performed by : [address] [address] Monocyte abs 1.6(H) 0.2 - 0.8 K/cumm [facility] Comment:Testing performed by : [address] [address] Eosinophil abs 0.0 0.0 - 0.5 K/cumm [facility] Comment:Testing performed by : [address] [address] Basophil abs 0.0 0.0 - 0.1 K/cumm [facility] Comment:Testing performed by : [address] [address] Neutrophil pct 69.2 % [facility] Comment: Interpretive Data Percent cell count reference ranges are not reported, since discordance with absolute values may lead to misinterpretation of CBC data. Current Interpretive Data was last revised on 2017. Testing performed by: [address] [address] Imm gran pct 1.1 % [facility] Comment: Interpretive Data Percent cell count reference ranges are not reported, since discordance with absolute values may lead to misinterpretation of CBC data. Current Interpretive Data was last revised on 2017. Testing performed by: [address] [address] Lymphocyte pct 20.7 % [facility] Comment: Interpretive Data Percent cell count reference ranges are not reported, since discordance with absolute values may lead to misinterpretation of CBC data. Current Interpretive Data was last revised on 2017. Testing performed by: [address] [address] Monocyte pct 8.7 % [facility] Comment: Interpretive Data Percent cell count reference ranges are not reported, since discordance with absolute values may lead to misinterpretation of CBC data. Current Interpretive Data was last revised on 2017. Testing performed by: [address] [address] Eosinophil pct 0.1 % [facility] Comment: Interpretive Data Percent cell count reference ranges are not reported, since discordance with absolute values may lead to misinterpretation of CBC data. Current Interpretive Data was last revised on 2017. Testing performed by: [address] [address] Basophil pct 0.2 % [facility] Comment: Interpretive Data Percent cell count reference ranges are not reported, since discordance with absolute values may lead to misinterpretation of CBC data. Current Interpretive Data was last revised on 2017. Testing performed by: [address] [address] Blood 09/28/2024 8:10 PM CDT 09/28/2024 8:11 PM CDT us Simran Frank MD LAB BLOOD ORDERABLES Ruthy trivedi Result [facility] [address] [facility] Department [place] [address] * (ABNORMAL) CBC with auto differential (09/28/2024 8:10 PM CDT) WBC 18.6(H) 3.8 - 9.9 K/cumm Comment:Testing performed by : [address] [address] Hgb 11.3(L) 11.9 - 15.5 g/dL [facility] Comment:Testing performed by : [address] [address] Hct 36.0 35.6 - 45.5 % [facility] Comment:Testing performed by : [address] [address] Plt 601(H) 150 - 400 K/cumm [facility] Comment:Testing performed by : [address] [address] MPV 9.1 9.1 - 12.3 fL [facility] Comment:Testing performed by : [address], [address] RBC 4.56 3.90 - 5.20 M/cumm [facility] Comment:Testing performed by : [address] [address] MCV 78.9(L) 81.3 - 96.4 fL [facility] Comment:Testing performed by : [address] [address] MCH 24.8(L) 27.1 - 33.3 pg [facility] Comment:Testing performed by : [address], [address] MCHC 31.4(L) 32.3 - 35.7 g/dL [facility] Comment:Testing performed by : [address], [address] RDW CV 15.2(H) 11.1 - 14.9 % [facility] Comment:Testing performed by : [address] [address] RDW SD 43.6 35.7 - 48.1 fL [facility] Comment:Testing performed by : [address] [address] NRBC abs 0.03(H) 0.00 - 0.01 K/cumm [facility] Comment:Testing performed by : [address], [address] Blood 09/28/2024 8:10 PM CDT 09/28/2024 8:11 PM CDT us Simran Frank MD LAB BLOOD ORDERABLES Ruthy trivedi Result [facility] [address] [facility] Department [place] [address] * (ABNORMAL) Comprehensive metabolic panel (09/28/2024 8:10 PM CDT) Sodium 142 135 - 145 mmol/L Comment:Testing performed by : [address] [address] Potassium, pl 3.2(L) 3.3 - 4.9 mmol/L [facility] Comment:Testing performed by : [address] [address] Chloride 103 97 - 110 mmol/L [facility] Comment:Testing performed by : [address] [address] CO2 23 22 - 32 mmol/L [facility] Comment:Testing performed by : [address] [address] Anion gap 16(H) 2 - 15 mmol/L [facility] Comment:Testing performed by : [address] [address] BUN 18 6 - 25 mg/dL [facility] Comment:Testing performed by : [address] [address] Creatinine 0.80 0.60 - 1.10 mg/dL [facility] Comment:Testing performed by : [address] [address] Glucose 108 70 - 199 mg/dL [facility] [...] was last revised 2022. Testing performed by: [address] [address] Calcium 10.0 8.5 - 10.3 mg/dL [facility] Comment:Testing performed by : [address] [address] Bilirubin, total <0.2 0.1 - 1.2 mg/dL [facility] Comment:Testing performed by : [address], [address] Protein, pl 7.4 6.5 - 8.5 g/dL [facility] Comment:Testing performed by : [address], [address] Albumin 4.4 3.5 - 5.0 g/dL [facility] Comment:Testing performed by : [address], [address] Alk phos 77 40 - 130 Units/L [facility] Comment:Testing performed by : [address], [address] ALT 28 7 - 45 Units/L [facility] Comment:Testing performed by : [address], [address] AST 22 10 - 45 Units/L [facility] Comment:Testing performed by : [address], [address] Blood 09/28/2024 8:10 PM CDT 09/28/2024 8:12 PM CDT Simran Frank MD LAB BLOOD ORDERABLES Ruthy trivedi Result [facility] [address] [facility] Department of Laboratories [place], [place] [id number] * ECG 12 lead (09/28/2024 8:02 PM CDT) Ventricular Rate EKG/Min 151 BPM [facility] Atrial Rate 151 BPM [facility] AR-Interval (MSEC) 104 ms [facility] QRS-Interval (MSEC) 90 ms [facility] QT-Interval (MSEC) 336 ms [facility] QTc 532 ms [facility] P [place] 37 degrees [facility] R [place] 40 degrees [facility] T [place] 53 degrees [facility] Diagnosis Sinus tachycardia with short AR RSR' or QR pattern in V1 suggests right ventricular conduction delay Abnormal ECG When compared with ECG of 23-SEP-2024 16:46, No significant change Confirmed by BELIA CHU M.D. ([id number]) on 09/29/2024 11:02:24 PM [facility] 09/28/2024 8:02 PM CDT 09/29/2024 11:02 PM CDT us Simran Frank MD ECG ORDERABLES Final Res ult [facility] * eGFR (09/27/2024 2:58 AM CDT) eGFR [...] reviewed 2021. Testing performed by: [facility], [address] [place] [address]., [address] Blood 09/27/2024 2:58 AM CDT 09/27/2024 3:03 AM CDT us Ferdinand Rivera DO LAB BLOOD ORDERABLES Final Res ult [facility] [address] [facility] Department [place] [address] * (ABNORMAL) Differential, auto (09/27/2024 2:58 AM CDT) Neutrophil abs 13.2(H) 1.5 - 6.5 K/cumm Comment:Testing performed by : [address] [address] Imm gran abs 0.1 0.0 - 0.1 K/cumm [facility] Comment:Testing performed by : [address] [address] Lymphocyte abs 1.7 0.8 - 3.3 K/cumm [facility] Comment:Testing performed by : [address] [address] Monocyte abs 1.0(H) 0.2 - 0.8 K/cumm [facility] Comment:Testing performed by : [address] [address] Eosinophil abs 0.0 0.0 - 0.5 K/cumm [facility] Comment:Testing performed by : [address] [address] Basophil abs 0.0 0.0 - 0.1 K/cumm [facility] Comment:Testing performed by : [address] [address] Neutrophil pct 82.5 % [facility] Comment: Interpretive Data Percent cell count reference ranges are not reported, since discordance with absolute values may lead to misinterpretation of CBC data. Current Interpretive Data was last revised on 2017. Testing performed by: [address] [address] Imm gran pct 0.8 % [facility] Comment: Interpretive Data Percent cell count reference ranges are not reported, since discordance with absolute values may lead to misinterpretation of CBC data. Current Interpretive Data was last revised on 2017. Testing performed by: [address] [address] Lymphocyte pct 10.4 % [facility] Comment: Interpretive Data Percent cell count reference ranges are not reported, since discordance with absolute values may lead to misinterpretation of CBC data. Current Interpretive Data was last revised on 2017. Testing performed by: [address] [address] Monocyte pct 6.2 % [facility] Comment: Interpretive Data Percent cell count reference ranges are not reported, since discordance with absolute values may lead to misinterpretation of CBC data. Current Interpretive Data was last revised on 2017. Testing performed by: [address] [address] Eosinophil pct 0.0 % [facility] Comment: Interpretive Data Percent cell count reference ranges are not reported, since discordance with absolute values may lead to misinterpretation of CBC data. Current Interpretive Data was last revised on 2017. Testing performed by: [address] [address] Basophil pct 0.1 % [facility] Comment: Interpretive Data Percent cell count reference ranges are not reported, since discordance with absolute values may lead to misinterpretation of CBC data. Current Interpretive Data was last revised on 2017. Testing performed by: [address] [address] Blood 09/27/2024 2:58 AM CDT 09/27/2024 3:03 AM CDT us Ferdinand Rivera DO LAB BLOOD ORDERABLES Final Res ult [facility] [address] [facility] Department of Laboratories [place], [place] [id number] * (ABNORMAL) CBC with auto differential (09/27/2024 2:58 AM CDT) Pathologist [facility] [place] WBC 15.9(H) 3.8 - 9.9 K/cumm Comment:Testing performed by : [address] [address] Hgb 11.3(L) 11.9 - 15.5 g/dL [facility] Comment:Testing performed by : [address] [address] Hct 36.7 35.6 - 45.5 % [facility] Comment:Testing performed by : [address] [address] Plt 532(H) 150 - 400 K/cumm [facility] Comment:Testing performed by : [address] [address] MPV 9.2 9.1 - 12.3 fL [facility] Comment:Testing performed by : [address] [address] RBC 4.50 3.90 - 5.20 M/cumm [facility] Comment:Testing performed by : [address] [address] MCV 81.6 81.3 - 96.4 fL [facility] Comment:Testing performed by : [address] [address] MCH 25.1(L) 27.1 - 33.3 pg [facility] Comment:Testing performed by : [address] [address] MCHC 30.8(L) 32.3 - 35.7 g/dL [facility] Comment:Testing performed by : [address] [address] RDW CV 15.4(H) 11.1 - 14.9 % [facility] Comment:Testing performed by : [address] [address] RDW SD 45.1 35.7 - 48.1 fL [facility] Comment:Testing performed by : [address] [address] NRBC abs 0.00 0.00 - 0.01 K/cumm [facility] Comment:Testing performed by : [address] [address] Blood 09/27/2024 2:58 AM CDT 09/27/2024 3:03 AM CDT us Ferdinand Rivera DO LAB BLOOD ORDERABLES Final Res ult [facility] [address] [facility] Department of Laboratories [place], [place] [id number] * Comprehensive metabolic panel (09/27/2024 2:58 AM CDT) Sodium 140 135 - 145 mmol/L Comment:Testing performed by : [address], [place]., [address] Potassium, pl 3.8 3.3 - 4.9 mmol/L [facility] Comment:Testing performed by : [address], [place]., [address] Chloride 103 97 - 110 mmol/L [facility] Comment:Testing performed by : [address], [place]., [address] CO2 23 22 - 32 mmol/L [facility] Comment:Testing performed by : [address], [place]., [address] Anion gap 14 2 - 15 mmol/L [facility] Comment:Testing performed by : [address], [place]., [address] BUN 11 6 - 25 mg/dL [facility] Comment:Testing performed by : [address], [place]., [address] Creatinine 0.66 0.60 - 1.10 mg/dL [facility] Comment:Testing performed by : [address], [place]., [address] Glucose 154 70 - 199 mg/dL [facility] Comment: Interpretive Data Fasting glucose >/= [...] was last revised 2022. Testing performed by: [address] [address] Calcium 10.3 8.5 - 10.3 mg/dL [facility] Comment:Testing performed by : [address], [place]., [address] Bilirubin, total <0.2 0.1 - 1.2 mg/dL [facility] Comment:Testing performed by : [address] [address] Protein, pl 7.8 6.5 - 8.5 g/dL [facility]S Comment:Testing performed by : [address] [address] Albumin 4.5 3.5 - 5.0 g/dL [facility] Comment:Testing performed by : [address] [address] Alk phos 85 40 - 130 Units/L [facility] Comment:Testing performed by : [address] [address] ALT 25 7 - 45 Units/L [facility] Comment:Testing performed by : [address] [address] AST 15 10 - 45 Units/L [facility] Comment:Testing performed by : [address] [address] Blood 09/27/2024 2:58 AM CDT 09/27/2024 3:03 AM CDT us Ferdinand Rivera DO LAB BLOOD ORDERABLES Final Res ult [facility] 8571 [facility] Department [place] [address] * eGFR (09/24/2024 3:43 AM CDT) eGFR [...] Inclusion of Race in Diagnosing Kidney Disease, MYLES 2020). The CKD-EPI equation should not be used for patients with unstable renal function and has not been validated in children and those over 70. Current interpretive data was last reviewed 2021. Testing performed by: [address] [address] Blood 09/24/2024 3:43 AM CDT 09/24/2024 4:47 AM CDT Dariela Cortez NP LAB BLOOD ORDERABLES Final R esult [facility] 8729 [facility] Department [place] [address] * (ABNORMAL) Differential, auto (09/24/2024 3:43 AM CDT) Neutrophil abs 9.1(H) 1.5 - 6.5 K/cumm Comment:Testing performed by : [address] [address] Imm gran abs 0.0 0.0 - 0.1 K/cumm [facility] Comment:Testing performed by : [address] [address] Lymphocyte abs 0.7(L) 0.8 - 3.3 K/cumm [facility] Comment:Testing performed by : [address] [address] Monocyte abs 0.3 0.2 - 0.8 K/cumm [facility] Comment:Testing performed by : [address] [address] Eosinophil abs 0.0 0.0 - 0.5 K/cumm [facility] Comment:Testing performed by : [address] [address] Basophil abs 0.0 0.0 - 0.1 K/cumm [facility] Comment:Testing performed by : [address] [address] Neutrophil pct 89.5 % [facility] Comment: Interpretive Data Percent cell count reference ranges are not reported, since discordance with absolute values may lead to misinterpretation of CBC data. Current Interpretive Data was last revised on 2017. Testing performed by: [address] [address] Imm gran pct 0.3 % [facility] Comment: Interpretive Data Percent cell count reference ranges are not reported, since discordance with absolute values may lead to misinterpretation of CBC data. Current Interpretive Data was last revised on 2017. Testing performed by: [address] [address] Lymphocyte pct 6.9 % [facility] Comment: Interpretive Data Percent cell count reference ranges are not reported, since discordance with absolute values may lead to misinterpretation of CBC data. Current Interpretive Data was last revised on 2017. Testing performed by: [address] [address] Monocyte pct 3.1 % [facility] Comment: Interpretive Data Percent cell count reference ranges are not reported, since discordance with absolute values may lead to misinterpretation of CBC data. Current Interpretive Data was last revised on 2017. Testing performed by: [address] [address] Eosinophil pct 0.0 % [facility] Comment: Interpretive Data Percent cell count reference ranges are not reported, since discordance with absolute values may lead to misinterpretation of CBC data. Current Interpretive Data was last revised on 2017. Testing performed by: [address] [address] Basophil pct 0.2 % [facility] Comment: Interpretive Data Percent cell count reference ranges are not reported, since discordance with absolute values may lead to misinterpretation of CBC data. Current Interpretive Data was last revised on 2017. Testing performed by: [address] [address] Blood 09/24/2024 3:43 AM CDT 09/24/2024 4:50 AM CDT us Dariela Cortez NP LAB BLOOD ORDERABLES Final R esult [facility] 4500 [facility] Department [place] [address] * (ABNORMAL) CBC with auto differential (09/24/2024 3:43 AM CDT) WBC 10.2(H) 3.8 - 9.9 K/cumm Comment:Testing performed by : [address] [address] Hgb 10.5(L) 11.9 - 15.5 g/dL [facility] Comment:Testing performed by : [address] [address] Hct 34.2(L) 35.6 - 45.5 % [facility] Comment:Testing performed by : [address] [address] Plt 418(H) 150 - 400 K/cumm [facility] Comment:Testing performed by : [address] [address] MPV 9.7 9.1 - 12.3 fL [facility] Comment:Testing performed by : [address], [address] RBC 4.17 3.90 - 5.20 M/cumm [facility] Comment:Testing performed by : [address] [address] MCV 82.0 81.3 - 96.4 fL [facility] Comment:Testing performed by : [address] [address] MCH 25.2(L) 27.1 - 33.3 pg [facility] Comment:Testing performed by : [address] [address] MCHC 30.7(L) 32.3 - 35.7 g/dL [facility] Comment:Testing performed by : [address] [address] RDW CV 15.6(H) 11.1 - 14.9 % [facility] Comment:Testing performed by : [address], [address] RDW SD 46.4 35.7 - 48.1 fL [facility] Comment:Testing performed by : [address] [address] NRBC abs 0.00 0.00 - 0.01 K/cumm [facility] [place] Comment:Testing performed by : [address] [address] Blood 09/24/2024 3:43 AM CDT 09/24/2024 4:50 AM CDT us Dariela Cortez NP LAB BLOOD ORDERABLES Final R esult [facility] 4500 [facility] Department [place] [address] * (ABNORMAL) Basic metabolic panel (09/24/2024 3:43 AM CDT) Sodium 138 135 - 145 mmol/L Comment:Testing performed by : [address] [address] Potassium, pl 4.2 3.3 - 4.9 mmol/L [facility] Comment:Testing performed by : [address] [address] Chloride 107 97 - 110 mmol/L [facility] Comment:Testing performed by : [address] [address] CO2 21(L) 22 - 32 mmol/L [facility] Comment:Testing performed by : [address] [address] Anion gap 10 2 - 15 mmol/L [facility] Comment:Testing performed by : [address] [address] BUN 10 6 - 25 mg/dL [facility] Comment:Testing performed by : [address] [address] Creatinine 0.71 0.60 - 1.10 mg/dL [facility] Comment:Testing performed by : [address] [address] Glucose 145 70 - 199 mg/dL [facility] [...] revised 2022. Testing performed by: [facility], [address] [place] [address]., [address] Calcium 9.7 8.5 - 10.3 mg/dL [facility] Comment:Testing performed by : [address] [address] Blood 09/24/2024 3:43 AM CDT 09/24/2024 4:47 AM CDT Dariela Cortez REGULATORY SPECIALIST LAB BLOOD ORDERABLES Final R esult [facility] 1017 [facility] Department [place] [address] * XR Mandible 4 or [...] Arnold Chahal M.D. KH: GLADYS Report ID: [id number] Reading Location: [id number] Procedure Note Arnold Chahal MD - 09/23/2024 [...] Arnold Chahal M.D. KH: GLADYS Report ID: [id number] Reading Location: [id number] [facility] Jayy Goode MD IMG XR PROCEDURES Fi nal Result * AR CLOSED TX STERNOCLAVICULAR DISLC W/MANIPULATION (09/23/2024 7:35 [...] signed by Arnold GRAHAM: GLADYS Report ID: [id number] Reading Location: [id number] Procedure Note Arnold Chahal MD - 09/23/2024 [...] signed by Arnold GRAHAM: GLADYS Report ID: [id number] Reading Location: [id number] Jorje Huynh MD IMG XR PROCEDURES Final [...] López Mcclellan M.D. MM: MM Report ID: [id number] Reading Location: [id number] Procedure Note López Mcclellan MD - 09/23/2024 [...] López Mcclellan M.D. MM: MM Report ID: [id number] Reading Location: [id number] Samuel Bowen MD IMG XR PROCEDURES F inal Result * ECG 12 lead (09/23/2024 4:46 PM CDT) Pathologist [facility] [place] Ventricular Rate EKG/Min 146 BPM [facility] Atrial Rate 292 BPM [facility] QRS-Interval (MSEC) 98 ms [facility] QT-Interval (MSEC) 350 ms [facility] QTc 545 ms [facility] R [place] 58 degrees [facility] T [place] 50 degrees [facility] Diagnosis Sinus tachycardia Incomplete right bundle branch block T-wave changes When compared with ECG of 01-SEP-2024 13:54, No significant change Confirmed by SULTAN ZUNIGA M.D. ([id number]) on 09/23/2024 9:49:04 PM [facility] 09/23/2024 4:46 PM CDT 09/23/2024 9:49 PM CDT Samuel Bowen MD ECG ORDERABLES Fin al Result [facility] * eGFR (09/23/2024 4:27 PM CDT) Pathologist [...] reviewed 2021. Testing performed by: [facility], [address] [place] [address]., [address] Blood 09/23/2024 4:27 PM CDT 09/23/2024 4:39 PM CDT us Deisy MARQUEZ LAB BLOOD ORDERABLES Final Resu lt [facility] [address] [place] [address] Department [place] [address] * (ABNORMAL) Differential, auto (09/23/2024 4:27 PM CDT) Neutrophil abs 7.2(H) 1.5 - 6.5 K/cumm Comment:Testing performed by : [address] [address] Imm gran abs 0.0 0.0 - 0.1 K/cumm [facility] Comment:Testing performed by : [address] [address] Lymphocyte abs 2.4 0.8 - 3.3 K/cumm [facility] Comment:Testing performed by : [address] [address] Monocyte abs 0.8 0.2 - 0.8 K/cumm [facility] Comment:Testing performed by : [address] [address] Eosinophil abs 0.1 0.0 - 0.5 K/cumm [facility] Comment:Testing performed by : [address] [address] Basophil abs 0.1 0.0 - 0.1 K/cumm [facility] Comment:Testing performed by : [address] [address] Neutrophil pct 68.6 % [facility] Comment: Interpretive Data Percent cell count reference ranges are not reported, since discordance with absolute values may lead to misinterpretation of CBC data. Current Interpretive Data was last revised on 2017. Testing performed by: [address] [address] Imm gran pct 0.4 % [facility] Comment: Interpretive Data Percent cell count reference ranges are not reported, since discordance with absolute values may lead to misinterpretation of CBC data. Current Interpretive Data was last revised on 2017. Testing performed by: [address] [address] Lymphocyte pct 22.5 % [facility] Comment: Interpretive Data Percent cell count reference ranges are not reported, since discordance with absolute values may lead to misinterpretation of CBC data. Current Interpretive Data was last revised on 2017. Testing performed by: [address] [address] Monocyte pct 7.1 % [facility] Comment: Interpretive Data Percent cell count reference ranges are not reported, since discordance with absolute values may lead to misinterpretation of CBC data. Current Interpretive Data was last revised on 2017. Testing performed by: [address] [address] Eosinophil pct 0.7 % [facility] Comment: Interpretive Data Percent cell count reference ranges are not reported, since discordance with absolute values may lead to misinterpretation of CBC data. Current Interpretive Data was last revised on 2017. Testing performed by: [address] [address] Basophil pct 0.7 % [facility] Comment: Interpretive Data Percent cell count reference ranges are not reported, since discordance with absolute values may lead to misinterpretation of CBC data. Current Interpretive Data was last revised on 2017. Testing performed by: [address] [address] Blood 09/23/2024 4:27 PM CDT 09/23/2024 4:39 PM CDT us Samuel Bowen MD LAB BLOOD ORDERABLE S Final Result [facility] 45[address] [facility] Department [place] [address] * (ABNORMAL) CBC with auto differential (09/23/2024 4:27 PM CDT) [facility] WBC 10.5(H) 3.8 - 9.9 K/cumm Comment:Testing performed by : [address] [address] Hgb 11.9 11.9 - 15.5 g/dL [facility] Comment:Testing performed by : [address] [address] Hct 40.4 35.6 - 45.5 % [facility] Comment:Testing performed by : [address] [address] Plt 517(H) 150 - 400 K/cumm [facility] Comment:Testing performed by : [address] [address] MPV 9.3 9.1 - 12.3 fL [facility] Comment:Testing performed by : [address] [address] RBC 4.93 3.90 - 5.20 M/cumm [facility] Comment:Testing performed by : [address] [address] MCV 81.9 81.3 - 96.4 fL [facility] Comment:Testing performed by : [address] [address] MCH 24.1(L) 27.1 - 33.3 pg [facility] Comment:Testing performed by : [address] [address] MCHC 29.5(L) 32.3 - 35.7 g/dL [facility] Comment:Testing performed by : [address] [address] RDW CV 15.6(H) 11.1 - 14.9 % [facility] Comment:Testing performed by : [address] [address] RDW SD 46.5 35.7 - 48.1 fL [facility] Comment:Testing performed by : [address] [address] NRBC abs 0.00 0.00 - 0.01 K/cumm [facility]S Comment:Testing performed by : [address] [address] Blood 09/23/2024 4:27 PM CDT 09/23/2024 4:39 PM CDT us Samuel Bowen MD LAB BLOOD ORDERABLE S Final Result [facility] 9[address] [facility] Department [place] [address] * Comprehensive metabolic panel (09/23/2024 4:27 PM CDT) Sodium 141 135 - 145 mmol/L Comment:Testing performed by : [address] [address] Potassium, pl 3.3 3.3 - 4.9 mmol/L [facility] Comment:Testing performed by : [address] [address] Chloride 104 97 - 110 mmol/L [facility] Comment:Testing performed by : [address] [address] CO2 22 22 - 32 mmol/L [facility] Comment:Testing performed by : [address] [address] Anion gap 15 2 - 15 mmol/L [facility] Comment:Testing performed by : [address] [address] BUN 11 6 - 25 mg/dL [facility] Comment:Testing performed by : [address] [address] Creatinine 0.89 0.60 - 1.10 mg/dL [facility]ILLS Comment:Testing performed by : [address] [address] Glucose 153 70 - 199 mg/dL [facility] [...] was last revised 2022. Testing performed by: [address] [address] Calcium 9.9 8.5 - 10.3 mg/dL [facility] Comment:Testing performed by : [address] [address] Bilirubin, total <0.2 0.1 - 1.2 mg/dL [facility] Comment:Testing performed by : [address] [address] Protein, pl 8.0 6.5 - 8.5 g/dL [facility] Comment:Testing performed by : [address] [address] Albumin 4.6 3.5 - 5.0 g/dL [facility] Comment:Testing performed by : [address] [address] Alk phos 84 40 - 130 Units/L [facility] Comment:Testing performed by : [address] [address] ALT 42 7 - 45 Units/L [facility] Comment:Testing performed by : [address] [address] AST 27 10 - 45 Units/L [facility] Comment:Testing performed by : [address] [address] Blood 09/23/2024 4:27 PM CDT 09/23/2024 4:39 PM CDT us Samuel Bowen MD LAB BLOOD ORDERABLE S Final Result Performing Organization Address City/State/[facility] Co de Phone Number [facility] [address] [facility] Department [place] [address] * (ABNORMAL) CBC without differential (09/05/2024 4:27 AM ASSOCIATE PROFESSOR [employer]) WBC 14.9(H) 3.8 - 9.9 K/cumm Comment:Testing performed by : [address] [address] Hgb 10.8(L) 11.9 - 15.5 g/dL [facility] Comment:Testing performed by : [address] [address] Hct 35.6 35.6 - 45.5 % [facility] Comment:Testing performed by : [address] [address] Plt 414(H) 150 - 400 K/cumm [facility] Comment:Testing performed by : [address] [address] MPV 9.4 9.1 - 12.3 fL [facility] Comment:Testing performed by : [address], [address] RBC 4.35 3.90 - 5.20 M/cumm [facility] Comment:Testing performed by : [address] [address] MCV 81.8 81.3 - 96.4 fL [facility] Comment:Testing performed by : [address] [address] MCH 24.8(L) 27.1 - 33.3 pg [facility] Comment:Testing performed by : [address] [address] MCHC 30.3(L) 32.3 - 35.7 g/dL [facility] Comment:Testing performed by : [address] [address] RDW CV 15.4(H) 11.1 - 14.9 % [facility] Comment:Testing performed by : [address], [address] RDW SD 46.2 35.7 - 48.1 fL [facility] MILLS Comment:Testing performed by : [address] [address] NRBC abs 0.00 0.00 - 0.01 K/cumm [facility] Comment:Testing performed by : [address] [address] Blood 09/05/2024 4:27 AM ASSOCIATE [employer] 09/05/2024 5:03 AM ASSOCIATE [employer] us Venkat Rudd MD LAB BLOOD ORDERABLES Fi nal Result [facility] [address] [facility] Department [place] [address] * (ABNORMAL) CBC without differential (09/04/2024 4:25 AM ASSOCIATE PROF[employer]) WBC 14.5(H) 3.8 - 9.9 K/cumm Comment:Testing performed by : [address] [address] Hgb 10.5(L) 11.9 - 15.5 g/dL [facility] Comment:Testing performed by : [address] [address] Hct 35.4(L) 35.6 - 45.5 % [facility]S Comment:Testing performed by : [address] [address] Plt 392 150 - 400 K/cumm [facility] Comment:Testing performed by : [address] [address] MPV 9.2 9.1 - 12.3 fL [facility] Comment:Testing performed by : [address] [address] RBC 4.27 3.90 - 5.20 M/cumm [facility] Comment:Testing performed by : [address] [address] MCV 82.9 81.3 - 96.4 fL [facility] Comment:Testing performed by : [address], [address] MCH 24.6(L) 27.1 - 33.3 pg [facility]S Comment:Testing performed by : [address] [address] MCHC 29.7(L) 32.3 - 35.7 g/dL [facility]S Comment:Testing performed by : [address] [address] RDW CV 15.6(H) 11.1 - 14.9 % [facility]S Comment:Testing performed by : [address] [address] RDW SD 47.6 35.7 - 48.1 fL [facility] Comment:Testing performed by : [address] [address] NRBC abs 0.00 0.00 - 0.01 K/cumm [facility] Comment:Testing performed by : [address] [address] Blood 09/04/2024 4:25 AM ASSOCIATE [employer] 09/04/2024 4:41 AM ASSOCIATE [employer] us Venkat Rudd MD LAB BLOOD ORDERABLES Fi nal Result [facility] [address] [facility] Department [place] [address] * Troponin T high-sensitivity 2-hour (09/01/2024 5:11 PM ASSOCIATE PROF[employer]) Trop T hs <6 <=14 ng/L Comment: Interpretive Data For further hscTnT resources including the diagnostic algorithm and an aid in interpretation, copy and paste this link: https://nrl.testcatalog.org/show/hsTrop Current Interpretive Data last revised 2020. Testing performed by: [address] [address] Trop T hs delta 0 ng/L [facility] Comment:Testing performed by : [address] [address] Trop T hs interp Insignificant [facility] Comment:Testing performed by : [address] [address] Blood 09/01/2024 5:11 PM ASSOCIATE [employer] 09/01/2024 5:14 PM ASSOCIATE [employer] us Wil Monteiro MD LAB BLOOD ORDERABLE S Final Result [facility] [address] [facility] Department [place] [address] * Urinalysis reflex to microscopic and culture Urine (09/01/2024 4:58 PM ASSOCIATE PROFESS[employer]) Color, ur Yellow Yellow Comment:Testing performed by : [address] [address] Clarity, ur Clear Clear [facility] Comment:Testing performed by : [address] [address] Specific gravity, ur 1.015 1.003 - 1.030 [facility] Comment:Testing performed by : [address] [address] pH, urine 7.0 [facility] Comment: Interpretive Data U rine pH is affected by diet, medications, systemic acid-base disturbances, and renal tubular function. pH may affect urinary stone formation. For example, urine pH below 6.0 may help reduce the tendency for calcium phosphate stones and pH greater than 6.0 may reduce the tendency for uric acid stone formation. Source: [facility] Current Interpretive Data was last revised on 2017 Testing performed by: [address] [address] Protein, ur ql Negative Negative [facility] Comment:Testing performed by : [address] [address] Glucose, ur ql Negative Negative [facility] Comment:Testing performed by : [address] [address] Ketones, ur Negative Negative [facility] Comment:Testing performed by : [address] [address] Bilirubin, ur Negative Negative [facility] Comment:Testing performed by : [address] [address] Blood, ur Negative Negative [facility] Comment:Testing performed by : [facility], [address] [place] [address], [place]., [address] Urobilinogen, ur <2.0 <2.0 mg/dL [facility]S Comment:Testing performed by : [facility], [address] [place] [address], [place]., [address] Nitrite, ur Negative Negative [facility] Comment:Testing performed by : [address], [place]., [address] Leukocyte esterase, ur Negative Negative [facility] Comment:Testing performed by : [address], [place]., [address] UA reflex comment Reflex conditions for microscopic UA and culture not met. [facility] Comment:Testing performed by : [address], [place]., [address] Urine 09/01/2024 4:58 PM ASSOCIATE PROFESSOR [employer] 09/01/2024 4:59 PM ASSOCIATE PROFESSOR [employer] Wil Monteiro MD LAB MICROBIOLOGY - GENERAL ORDERABLES Final Result [facility] [address] [facility] Department of Laboratories [place], [place] [id number] * XR Chest 1 Vw Portable (09/01/2024 3:05 PM ASSOCIATE PROFESSOR [employer]) Anatomical Region Laterality Modality Body, Chest N/A Computed Radiogr aphy 09/01/2024 3:19 PM ASSOCIATE PROF[employer] Narrative 09/01/2024 3:22 PM ASSOCIATE PROF[employer] EXAM DESCRIPTION: XR CHEST 1 VIEW REASON FOR STUDY: allergic reaction Came to ED s/p anaphylactic reaction. Reports ate at [facility] broke out in hives and started [...] Robi Arreola M.D. MZ: MZ Report ID: [id number] Reading Location: [place] [address] Procedure Note Robi Arreola MD - 09/01/2024 [...] Robi Arreola M.D. MZ: MZ Report ID: [id number] Reading Location: [place] [address] us Wil Monteiro MD IMG XR PROCEDURES F inal Result * Troponin T high-sensitivity series (baseline, 2hr, 4hr, 6hr) (09/01/2024 2:59 PM ASSOCIATE PROFESS[employer]) Trop T hs <6 <=14 ng/L Comment: Interpretive Data For further hscTnT resources including the diagnostic algorithm and an aid in interpretation, copy and paste this link: https://nrl.testcatalog.org/show/hsTrop Current Interpretive Data last revised 2020. Testing performed by: [facility], [address] [place] [address]., [address] Blood 09/01/2024 2:59 PM ASSOCIATE [employer] 09/01/2024 3:03 PM ASSOCIATE [employer] us Wil Monteiro MD LAB BLOOD ORDERABLE S Final Result [facility] [address] [facility] Department [place] [address] * eGFR (09/01/2024 2:59 PM ASSOCIATE PROF[employer]) eGFR >90 >=60 mL/min/1. 73 m2 Comment: [...] was last reviewed 2021. Testing performed by: [address] [address] Blood 09/01/2024 2:59 PM ASSOCIATE PROFESSOR [employer] 09/01/2024 3:03 PM ASSOCIATE PROF[employer] us Wil Monteiro MD LAB BLOOD ORDERABLE S Final Result [facility] [address] [facility] Department [place] [address] * (ABNORMAL) Differential, auto (09/01/2024 2:59 PM ASSOCIATE PROFESSOR [employer]) Neutrophil abs 14.4(H) 1.5 - 6.5 K/cumm Comment:Testing performed by : [address] [address] Imm gran abs 0.2(H) 0.0 - 0.1 K/cumm [facility] Comment:Testing performed by : [address] [address] Lymphocyte abs 1.4 0.8 - 3.3 K/cumm [facility] Comment:Testing performed by : [address] [address] Monocyte abs 0.4 0.2 - 0.8 K/cumm [facility] Comment:Testing performed by : [address] [address] Eosinophil abs 0.0 0.0 - 0.5 K/cumm [facility] Comment:Testing performed by : [address] [address] Basophil abs 0.1 0.0 - 0.1 K/cumm [facility] Comment:Testing performed by : [address] [address] Neutrophil pct 87.3 % [facility] Comment: Interpretive Data Percent cell count reference ranges are not reported, since discordance with absolute values may lead to misinterpretation of CBC data. Current Interpretive Data was last revised on 2017. Testing performed by: [address] [address] Imm gran pct 0.9 % [facility] Comment: Interpretive Data Percent cell count reference ranges are not reported, since discordance with absolute values may lead to misinterpretation of CBC data. Current Interpretive Data was last revised on 2017. Testing performed by: [address] [address] Lymphocyte pct 8.7 % [facility] Comment: Interpretive Data Percent cell count reference ranges are not reported, since discordance with absolute values may lead to misinterpretation of CBC data. Current Interpretive Data was last revised on 2017. Testing performed by: [address] [address] Monocyte pct 2.7 % [facility] Comment: Interpretive Data Percent cell count reference ranges are not reported, since discordance with absolute values may lead to misinterpretation of CBC data. Current Interpretive Data was last revised on 2017. Testing performed by: [address] [address] Eosinophil pct 0.1 % [facility] Comment: Interpretive Data Percent cell count reference ranges are not reported, since discordance with absolute values may lead to misinterpretation of CBC data. Current Interpretive Data was last revised on 2017. Testing performed by: [address] [address] Basophil pct 0.3 % [facility] Comment: Interpretive Data Percent cell count reference ranges are not reported, since discordance with absolute values may lead to misinterpretation of CBC data. Current Interpretive Data was last revised on 2017. Testing performed by: [address] [address] Blood 09/01/2024 2:59 PM ASSOCIATE [employer] 09/01/2024 3:03 PM ASSOCIATE [employer] Wil Monteiro MD LAB BLOOD ORDERABLE S Final Result [facility] [address] [facility] Department of Laboratories [place], [place] [id number] * Thyroid Function [place] (09/01/2024 2:59 PM ASSOCIATE PROFESSOR [employer]) TSH 0.80 0.30 - 4.20 mcIUnit/mL Comment:Testing performed by : [address] [address] Blood 09/01/2024 2:59 PM ASSOCIATE [employer] 09/01/2024 3:03 PM ASSOCIATE [employer] us Wil Monteiro MD LAB BLOOD ORDERABLE S Final Result [facility] [address] [facility] Department [place] [address] * (ABNORMAL) CBC with auto differential (09/01/2024 2:59 PM ASSOCIATE [employer]) WBC 16.5(H) 3.8 - 9.9 K/cumm Comment:Testing performed by : [address] [address] Hgb 11.3(L) 11.9 - 15.5 g/dL [facility] Comment:Testing performed by : [address] [address] Hct 36.4 35.6 - 45.5 % [facility] Comment:Testing performed by : [address] [address] Plt 465(H) 150 - 400 K/cumm [facility] Comment:Testing performed by : [address] [address] MPV 9.0(L) 9.1 - 12.3 fL [facility] Comment:Testing performed by : [address] [address] RBC 4.54 3.90 - 5.20 M/cumm [facility] Comment:Testing performed by : [address] [address] MCV 80.2(L) 81.3 - 96.4 fL [facility] Comment:Testing performed by : [address] [address] MCH 24.9(L) 27.1 - 33.3 pg [facility] Comment:Testing performed by : [address] [address] MCHC 31.0(L) 32.3 - 35.7 g/dL [facility] Comment:Testing performed by : [address] [address] RDW CV 15.1(H) 11.1 - 14.9 % [facility] Comment:Testing performed by : [address] [address] RDW SD 44.1 35.7 - 48.1 fL [facility] Comment:Testing performed by : [address] [address] NRBC abs 0.00 0.00 - 0.01 K/cumm [facility] Comment:Testing performed by : [address] [address] Blood 09/01/2024 2:59 PM ASSOCIATE [employer] 09/01/2024 3:03 PM ASSOCIATE PROF[employer]OR [employer] Wil Monteiro MD LAB BLOOD ORDERABLE S Final Result Performing Organization Address [facility] Co de Phone Number [address] [place] [address] * Magnesium (09/01/2024 2:59 PM ASSOCIATE PROFESSOR [employer]) [facility] Magnesium 2.0 1.4 - 2.5 mg/dL Comment:Testing performed by : [address] [address] Blood 09/01/2024 2:59 PM ASSOCIATE [employer] 09/01/2024 3:03 PM ASSOCIATE [employer] us Wil Monteiro MD LAB BLOOD ORDERABLE S Final Result Performing Organization Address [facility] Co de Phone Number [address] [address] * Basic metabolic panel (09/01/2024 2:59 PM ASSOCIATE PROFESSOR [employer]) Pathologist [facility] [place] Sodium 140 135 - 145 mmol/L Comment:Testing performed by : [address] [address] Potassium, pl 4.0 3.3 - 4.9 mmol/L [facility] Comment:Testing performed by : [address] [address] Chloride 103 97 - 110 mmol/L [facility] Comment:Testing performed by : [address] [address] CO2 23 22 - 32 mmol/L [facility] Comment:Testing performed by : [address] [address] Anion gap 14 2 - 15 mmol/L [facility] Comment:Testing performed by : [address] [address] BUN 17 6 - 25 mg/dL [facility] Comment:Testing performed by : [address] [address] Creatinine 0.68 0.60 - 1.10 mg/dL [facility] Comment:Testing performed by : [address] [address] Glucose 147 70 - 199 mg/dL [facility] [...] was last revised 2022. Testing performed by: [address] [address] Calcium 9.3 8.5 - 10.3 mg/dL [facility] Comment:Testing performed by : [address] [address] Blood 09/01/2024 2:59 PM ASSOCIATE [employer] 09/01/2024 3:03 PM ASSOCIATE [employer] us Wil Monteiro MD LAB BLOOD ORDERABLE S Final Result [facility] [address] [facility] Department [place] [address] * POCT hCG, urine (09/01/2024 2:28 PM ASSOCIATE PROFESSOR [employer]) [facility] HCG, ur, POC Negative Negative Lot Number [id number] QC Backgroud Clear Acceptable QC Control Line Acceptable Urine 09/01/2024 2:28 PM ASSOCIATE [employer] Wil Monteiro MD POINT OF CARE TEST ORDERABLES Final Result * ECG 12 lead (09/01/2024 1:54 PM ASSOCIATE PROFESSOR [employer]) [facility] Ventricular Rate EKG/Min 153 BPM [facility] Atrial Rate 153 BPM [facility] AR-Interval (MSEC) 116 ms [facility] QRS-Interval (MSEC) 88 ms [facility] QT-Interval (MSEC) 328 ms [facility] QTc 523 ms [facility] P [place] 57 degrees [facility] R [place] 67 degrees [facility] T [place] 44 degrees [facility] Diagnosis Sinus tachycardia Otherwise normal ECG When compared with ECG of 20-AUG-2024 02:26, T wave inversion no longer evident in Anterior leads Confirmed by LAWRENCE YIP M.D. ([id number]) on 09/02/2024 9:10:53 AM [facility] 09/01/2024 1:54 PM ASSOCIATE [employer] 09/02/2024 9:10 AM ASSOCIATE [employer] Wil Monteiro MD ECG ORDERABLES Fin al Result [facility] * eGFR (08/22/2024 7:57 AM ASSOCIATE PROFESSOR [employer]) Pathologist [facility] [place] eGFR >90 >=60 mL/min/1. 73 m2 Comment: [...] was last reviewed 2021. Testing performed by: [address] [address] Blood 08/22/2024 7:57 AM ASSOCIATE [employer] 08/22/2024 8:11 AM ASSOCIATE [employer] us José Luis Tripp MD LAB BLOOD ORDERABLES Final Re sult [facility] 9912 [facility] Department [place] [address] * (ABNORMAL) CBC without differential (08/22/2024 7:57 AM ASSOCIATE [employer]) WBC 11.8(H) 3.8 - 9.9 K/cumm Comment:Testing performed by : [address] [address] Hgb 10.4(L) 11.9 - 15.5 g/dL [facility] Comment:Testing performed by : [address] [address] Hct 33.4(L) 35.6 - 45.5 % [facility] Comment:Testing performed by : [address] [address] Plt 450(H) 150 - 400 K/cumm [facility] Comment:Testing performed by : [address] [address] MPV 9.0(L) 9.1 - 12.3 fL [facility] Comment:Testing performed by : [address] [address] RBC 4.12 3.90 - 5.20 M/cumm [facility] Comment:Testing performed by : [address] [address] MCV 81.1(L) 81.3 - 96.4 fL [facility] Comment:Testing performed by : [address] [address] MCH 25.2(L) 27.1 - 33.3 pg [facility] Comment:Testing performed by : [address] [address] MCHC 31.1(L) 32.3 - 35.7 g/dL [facility] Comment:Testing performed by : [address] [address] RDW CV 15.5(H) 11.1 - 14.9 % [facility] Comment:Testing performed by : [address] [address] RDW SD 45.6 35.7 - 48.1 fL [facility] Comment:Testing performed by : [address] [address] NRBC abs 0.00 0.00 - 0.01 K/cumm [facility] Comment:Testing performed by : [address] [address] Blood 08/22/2024 7:57 AM ASSOCIATE [employer] 08/22/2024 8:11 AM ASSOCIATE [employer] us Jorje Huynh MD LAB BLOOD ORDERABLES Final Result [facility] 57[address] [facility] Department [place] [address] * Basic metabolic panel (08/22/2024 7:57 AM ASSOCIATE [employer]) Sodium 137 135 - 145 mmol/L Comment:Testing performed by : [address] [address] Potassium, pl 3.7 3.3 - 4.9 mmol/L [facility] Comment:Testing performed by : [address] [address] Chloride 103 97 - 110 mmol/L [facility] Comment:Testing performed by : [address] [address] CO2 23 22 - 32 mmol/L [facility] Comment:Testing performed by : [address] [address] Anion gap 11 2 - 15 mmol/L [facility] Comment:Testing performed by : [address] [address] BUN 16 6 - 25 mg/dL [facility] Comment:Testing performed by : [address] [address] Creatinine 0.71 0.60 - 1.10 mg/dL [facility] Comment:Testing performed by : [address] [address] Glucose 102 70 - 199 mg/dL [facility] [...] was last revised 2022. Testing performed by: [address] [address] Calcium 9.0 8.5 - 10.3 mg/dL [facility] Comment:Testing performed by : [address] [address] Blood 08/22/2024 7:57 AM ASSOCIATE [employer] 08/22/2024 8:11 AM ASSOCIATE [employer] us José Luis Tripp MD LAB BLOOD ORDERABLES Final Re sult [facility] [address] [facility] Department [place] [address] * eGFR (08/21/2024 7:53 AM ASSOCIATE PROF[employer]) eGFR >90 >=60 mL/min/1. 73 m2 Comment: [...] was last reviewed 2021. Testing performed by: [address] [address] Blood 08/21/2024 7:53 AM ASSOCIATE [employer] 08/21/2024 8:14 AM ASSOCIATE [employer] us José Luis Tripp MD LAB BLOOD ORDERABLES Final Re sult [facility] 5401 [facility] Department [place] [address] * (ABNORMAL) CBC without differential (08/21/2024 7:53 AM ASSOCIATE PROF[employer]) WBC 11.9(H) 3.8 - 9.9 K/cumm Comment:Testing performed by : [address] [address] Hgb 11.2(L) 11.9 - 15.5 g/dL [facility] Comment:Testing performed by : [address] [address] Hct 35.2(L) 35.6 - 45.5 % [facility] Comment:Testing performed by : [address] [address] Plt 481(H) 150 - 400 K/cumm [facility] Comment:Testing performed by : [address] [address] MPV 9.0(L) 9.1 - 12.3 fL [facility] Comment:Testing performed by : [address] [address] RBC 4.41 3.90 - 5.20 M/cumm [facility] Comment:Testing performed by : [address] [address] MCV 79.8(L) 81.3 - 96.4 fL [facility] Comment:Testing performed by : [address] [address] MCH 25.4(L) 27.1 - 33.3 pg [facility] Comment:Testing performed by : [address] [address] MCHC 31.8(L) 32.3 - 35.7 g/dL [facility] Comment:Testing performed by : [address] [address] RDW CV 15.6(H) 11.1 - 14.9 % [facility] Comment:Testing performed by : [address] [address] RDW SD 44.8 35.7 - 48.1 fL [facility] Comment:Testing performed by : [address] [address] NRBC abs 0.00 0.00 - 0.01 K/cumm [facility] Comment:Testing performed by : [address], [address] Blood 08/21/2024 7:53 AM ASSOCIATE [employer] 08/21/2024 8:15 AM ASSOCIATE [employer] us Jorje Huynh MD LAB BLOOD ORDERABLES Final Result [facility] 2425 [facility] Department of Laboratories [place], [place] [id number] * Basic metabolic panel (08/21/2024 7:53 AM ASSOCIATE PROFESSOR [employer]) [facility] Sodium 139 135 - 145 mmol/L Comment:Testing performed by : [address], [place]., [address] Potassium, pl 3.5 3.3 - 4.9 mmol/L [facility] Comment:Testing performed by : [address], [place]., [address] Chloride 102 97 - 110 mmol/L [facility] Comment:Testing performed by : [address], [place]., [address] CO2 23 22 - 32 mmol/L [facility] Comment:Testing performed by : [address], [place]., [address] Anion gap 14 2 - 15 mmol/L [facility] Comment:Testing performed by : [address], [place]., [address] BUN 11 6 - 25 mg/dL [facility] Comment:Testing performed by : [address], [place]., [address] Creatinine 0.70 0.60 - 1.10 mg/dL [facility] Comment:Testing performed by : [address], [place]., [address] Glucose 91 70 - 199 mg/dL [facility] Comment: Interpretive Data Fasting glucose >/= [...] was last revised 2022. Testing performed by: [address] [address] Calcium 9.4 8.5 - 10.3 mg/dL [facility] Comment:Testing performed by : [address], [place]., [address] Blood 08/21/2024 7:53 AM ASSOCIATE [employer] 08/21/2024 8:14 AM ASSOCIATE [employer] José Luis Tripp MD LAB BLOOD ORDERABLES Final Re sult [facility] 52[address] [facility] Department [place] [address] * AR CLOSED TX TEMPOROMANDIBULAR DISLOCATION 1ST/SBSQ (08/20/2024 1:18 PM ASSOCIATE PROF[employer]) Narrative Abhay Velez MD - 08/20/2024 1:18 PM ASSOCIATE PROF[employer] Abhay Velez MD 08/20/2024 1:33 PM Orthopedic Injury Treatment - Jaw Dislocation Date/Time: 08/20/2024 1:18 PM Performed by: Abhay Velez MD Authorized by: Abhay Velez MD RN Notified of Procedure: yes Informed consent: Risks, benefits, alternatives discussed and patient/associate financial representative/guardian agrees and accepts Patient's stated name/ [...] Result * Procedural Sedation (08/20/2024 1:18 PM ASSOCIATE [employer]) Narrative Abhay Velez MD - 08/20/2024 1:18 PM ASSOCIATE PROF[employer] Abhay Velez MD 08/20/2024 1:32 PM Procedural Sedation Date/Time: 08/20/2024 1:18 PM Performed by: Abhay Velez MD Authorized by: Abhay Velez MD [place] Protocol: RN Notified of Procedure: yes Informed consent: Risks, benefits, alternatives discussed and patient/associate financial representative/guardian agrees and accepts Patient's stated name/ [...] Less than 4 Views (08/20/2024 11:41 AM ASSOCIATE [employer]) Anatomical Region Laterality Modality Head and Neck N/A Computed Radiogr aphy 08/20/2024 11:5 5 AM ASSOCIATE [employer] Narrative 08/20/2024 12:02 PM ASSOCIATE [employer] EXAM DESCRIPTION: XR MANDIBLE LESS THAN 4 [...] Rohan Ramos M.D. LB: EDGARDO Report ID: [id number] Reading Location: [id number] Procedure Note Rohan Ramos MD - 08/20/2024 [...] Rohan Ramos M.D. LB: LB Report ID: [id number] Reading Location: [id number] us Jorje Huynh MD IMG XR PROCEDURES Final Re sult * Sepsis Lactate w/ Reflex (08/20/2024 8:24 AM ASSOCIATE [employer]) Sepsis Lactate 1.3 0.7 - 2.0 mmol/L Comment:Testing performed by : [address] [address] Blood 08/20/2024 8:24 AM ASSOCIATE [employer] 08/20/2024 8:29 AM ASSOCIATE [employer] us Erik Westbrook REGULATORY SPECIALIST LAB BLOOD ORDERABLES Final Resul t [facility] [address] [facility] Department [place] [address] * (ABNORMAL) Sepsis Lactate w/ Reflex (08/20/2024 3:25 AM ASSOCIATE PROF[employer]OR [employer]) Sepsis Lactate 2.6(C) 0.7 - 2.0 mmol/L Comment: Critical Result called to and read back by [email or web address], DATE: 2024-08-20 04:23:15 BY: [email or web address] Testing performed by: [address] [address] Blood 08/20/2024 3:25 AM ASSOCIATE PROF[employer]OR [employer] 08/20/2024 4:00 AM ASSOCIATE [employer] us Erik Westbrook NP LAB BLOOD ORDERABLES Final Resul t Performing Organization Address [facility] Co de Phone Number [facility] [address] [place] [address] * eGFR (08/20/2024 3:25 AM ASSOCIATE PROFESSOR [employer]) eGFR >90 >=60 mL/min/1. 73 m2 Comment: [...] was last reviewed 2021. Testing performed by: [address] [address] Blood 08/20/2024 3:25 AM ASSOCIATE PROF[employer]OR [employer] 08/20/2024 4:00 AM ASSOCIATE [employer] us José Luis Tripp MD LAB BLOOD ORDERABLES Final Re sult [facility] [address] [employer] [place], [place] [id number] * (ABNORMAL) CBC without differential (08/20/2024 3:25 AM ASSOCIATE PROF[employer]) WBC 12.4(H) 3.8 - 9.9 K/cumm Comment:Testing performed by : [address] [place]., [address] Hgb 10.3(L) 11.9 - 15.5 g/dL [facility] Comment:Testing performed by : [address], [address] Hct 32.7(L) 35.6 - 45.5 % [facility] Comment:Testing performed by : [address], [address] Plt 467(H) 150 - 400 K/cumm [facility] Comment:Testing performed by : [address], [address] MPV 9.1 9.1 - 12.3 fL [facility] Comment:Testing performed by : [address], [address] RBC 4.09 3.90 - 5.20 M/cumm [facility] Comment:Testing performed by : [address], [address] MCV 80.0(L) 81.3 - 96.4 fL [facility] Comment:Testing performed by : [address], [address] MCH 25.2(L) 27.1 - 33.3 pg [facility] Comment:Testing performed by : [address], [address] MCHC 31.5(L) 32.3 - 35.7 g/dL [facility] Comment:Testing performed by : [address], [address] RDW CV 15.1(H) 11.1 - 14.9 % [facility] Comment:Testing performed by : [address], [address] RDW SD 43.8 35.7 - 48.1 fL [facility] Comment:Testing performed by : [address], [address] NRBC abs 0.00 0.00 - 0.01 K/cumm [facility] Comment:Testing performed by : [address], [address] Blood 08/20/2024 3:25 AM ASSOCIATE PROFESSOR [employer] 08/20/2024 4:00 AM ASSOCIATE PROF[employer] us José Luis Tripp MD LAB BLOOD ORDERABLES Final Re sult [facility] 3[address] [facility] Department [place] [address] * (ABNORMAL) Basic metabolic panel (08/20/2024 3:25 AM ASSOCIATE PROF[employer]OR [employer]) Sodium 138 135 - 145 mmol/L Comment:Testing performed by : [address] [address] Potassium, pl 4.4 3.3 - 4.9 mmol/L [facility] Comment: Hemolyzed; Potassium value may be falsely elevated by as much as 1.0 mmol/L. Suggest redraw and reanalysis. Testing performed by: [address] [address] Chloride 104 97 - 110 mmol/L [facility] Comment:Testing performed by : [address] [address] CO2 20(L) 22 - 32 mmol/L [facility] Comment:Testing performed by : [address] [address] Anion gap 14 2 - 15 mmol/L [facility] Comment:Testing performed by : [address] [address] BUN 8 6 - 25 mg/dL [facility] Comment:Testing performed by : [address] [address] Creatinine 0.64 0.60 - 1.10 mg/dL [facility] Comment:Testing performed by : [address] [address] Glucose 179 70 - 199 mg/dL [facility] [...] revised 2022. Testing performed by: [facility], [address] [place] [address]., [address] Calcium 9.5 8.5 - 10.3 mg/dL [facility] Comment:Testing performed by : [address] [address] Blood 08/20/2024 3:25 AM ASSOCIATE PROFESSOR [employer] 08/20/2024 4:00 AM ASSOCIATE PROF[employer] us José Luis Tripp MD LAB BLOOD ORDERABLES Final Re sult [facility] 450[address] [facility] Department [place] [address] * ECG 12 lead (08/20/2024 2:26 AM ASSOCIATE PROFESSOR [employer]) Pathologist [facility] [place] Ventricular Rate EKG/Min 148 BPM [facility] Atrial Rate 148 BPM [facility] AR-Interval (MSEC) 114 ms [facility] QRS-Interval (MSEC) 100 ms [facility] QT-Interval (MSEC) 336 ms [facility] QTc 527 ms [facility] P [place] 51 degrees [facility] R [place] 73 degrees [facility] T [place] 35 degrees [facility] Diagnosis Sinus tachycardia Incomplete right bundle branch block Nonspecific T wave abnormality Abnormal ECG When compared with ECG of 19-AUG-2024 20:25, No significant change was found Confirmed by BELIA CHU M.D. ([id number]) on 08/21/2024 5:20:17 AM [facility] 08/20/2024 2:26 AM ASSOCIATE PROFESSOR [employer] 08/21/2024 5:20 AM ASSOCIATE PROF[employer] us Jorje Huynh MD ECG ORDERABLES Final Resu lt [facility] * (ABNORMAL) Sepsis Lactate w/ Reflex (08/19/2024 8:52 PM ASSOCIATE PROFESSOR [employer]) Pathologist [facility] [place] Sepsis Lactate 2.4(C) 0.7 - 2.0 mmol/L Comment: Critical Result called to and read back by [email or web address], DATE: 2024-08-19 21:21:33 BY: [email or web address] Testing performed by: [facility], [address] [place] [address]., [address] Blood 08/19/2024 8:52 PM ASSOCIATE PROFESSOR [employer] 08/19/2024 8:55 PM ASSOCIATE PROF[employer]OR [employer] Erik Westbrook NP LAB BLOOD ORDERABLES Final Resul t [facility] Department [place] [address] * ECG 12 lead (08/19/2024 8:25 PM ASSOCIATE PROFESSOR OF [employer]INAL JUSTICE) [facility] Ventricular Rate EKG/Min 129 BPM [facility] Atrial Rate 129 BPM [facility] AR-Interval (MSEC) 138 ms [facility] QRS-Interval (MSEC) 100 ms [facility] QT-Interval (MSEC) 316 ms [facility] QTc 462 ms [facility] P [place] 55 degrees [facility] R [place] 49 degrees [facility] T [place] 46 degrees [facility] Diagnosis Sinus tachycardia Possible Left atrial enlargement Incomplete right bundle branch block Borderline ECG When compared with ECG of 21-MAY-2024 14:20, No significant change was found Confirmed by ZANE SORTO M.D. ([id number]) on 08/20/2024 11:59:01 PM [facility] 08/19/2024 8:25 PM ASSOCIATE PROFESSOR [employer] 08/20/2024 11:59 PM ASSOCIATE PROFESSOR [employer] Erik Westbrook NP ECG ORDERABLES Final Result [facility] * eGFR (08/19/2024 8:20 PM ASSOCIATE PROFESSOR OF [employer]) [facility] eGFR >90 >=60 mL/min/1. 73 m2 [...] was last reviewed 2021. Testing performed by: [address] [address] Blood 08/19/2024 8:20 PM ASSOCIATE PROFESSOR [employer] 08/19/2024 8:24 PM ASSOCIATE PROF[employer]OR [employer] us Erik Westbrook NP LAB BLOOD ORDERABLES Final Resul t [facility] [address] [facility] [place] [address] * (ABNORMAL) Differential, auto (08/19/2024 8:20 PM ASSOCIATE PROFESSOR [employer]) Neutrophil abs 17.7(H) 1.5 - 6.5 K/cumm Comment:Testing performed by : [address] [address] Imm gran abs 0.1 0.0 - 0.1 K/cumm [facility] Comment:Testing performed by : [address] [address] Lymphocyte abs 0.6(L) 0.8 - 3.3 K/cumm [facility] Comment:Testing performed by : [address] [address] Monocyte abs 0.4 0.2 - 0.8 K/cumm [facility] Comment:Testing performed by : [address] [address] Eosinophil abs 0.0 0.0 - 0.5 K/cumm [facility] Comment:Testing performed by : [address] [address] Basophil abs 0.1 0.0 - 0.1 K/cumm [facility] Comment:Testing performed by : [address] [address] Neutrophil pct 94.0 % [facility] Comment: Interpretive Data Percent cell count reference ranges are not reported, since discordance with absolute values may lead to misinterpretation of CBC data. Current Interpretive Data was last revised on 2017. Testing performed by: [address] [address] Imm gran pct 0.4 % [facility] [facility] Comment: Interpretive Data Percent cell count reference ranges are not reported, since discordance with absolute values may lead to misinterpretation of CBC data. Current Interpretive Data was last revised on 2017. Testing performed by: [address] [address] Lymphocyte pct 3.1 % [facility] Comment: Interpretive Data Percent cell count reference ranges are not reported, since discordance with absolute values may lead to misinterpretation of CBC data. Current Interpretive Data was last revised on 2017. Testing performed by: [address] [address] Monocyte pct 2.2 % [facility] Comment: Interpretive Data Percent cell count reference ranges are not reported, since discordance with absolute values may lead to misinterpretation of CBC data. Current Interpretive Data was last revised on 2017. Testing performed by: [address] [address] Eosinophil pct 0.0 % [facility] Comment: Interpretive Data Percent cell count reference ranges are not reported, since discordance with absolute values may lead to misinterpretation of CBC data. Current Interpretive Data was last revised on 2017. Testing performed by: [address] [address] Basophil pct 0.3 % [facility] Comment: Interpretive Data Percent cell count reference ranges are not reported, since discordance with absolute values may lead to misinterpretation of CBC data. Current Interpretive Data was last revised on 2017. Testing performed by: [address] [address] Blood 08/19/2024 8:20 PM ASSOCIATE PROFESSOR OF CRIMINAL JUSTICE 08/19/2024 8:24 PM ASSOCIATE PROFESSOR OF CRIMINAL JUSTICE us Erik Westbrook NP LAB BLOOD ORDERABLES Final Resul t [facility] [address] [facility] Department [place] [address] * (ABNORMAL) CBC with auto differential (08/19/2024 8:20 PM ASSOCIATE PROFESSOR OF CRIMINAL JUSTICE) WBC 18.8(H) 3.8 - 9.9 K/cumm Comment:Testing performed by : [address] [address] Hgb 10.7(L) 11.9 - 15.5 g/dL [facility] Comment:Testing performed by : [address] [address] Hct 33.3(L) 35.6 - 45.5 % [facility] Comment:Testing performed by : [address] [address] Plt 502(H) 150 - 400 K/cumm [facility] Comment:Testing performed by : [address] [address] MPV 8.9(L) 9.1 - 12.3 fL [facility] Comment:Testing performed by : [address] [address] RBC 4.21 3.90 - 5.20 M/cumm [facility] Comment:Testing performed by : [address] [address] MCV 79.1(L) 81.3 - 96.4 fL [facility] Comment:Testing performed by : [address] [address] MCH 25.4(L) 27.1 - 33.3 pg [facility] Comment:Testing performed by : [address] [address] MCHC 32.1(L) 32.3 - 35.7 g/dL [facility] Comment:Testing performed by : [address] [address] RDW CV 14.9 11.1 - 14.9 % [facility] Comment:Testing performed by : [address] [address] RDW SD 43.0 35.7 - 48.1 fL [facility] Comment:Testing performed by : [address], [place]., [address] NRBC abs 0.00 0.00 - 0.01 K/cumm [facility] Comment:Testing performed by : [address] [address] Blood 08/19/2024 8:20 PM ASSOCIATE PROFESSOR OF CRIMINAL JUSTICE 08/19/2024 8:24 PM ASSOCIATE PROFESSOR OF CRIMINAL JUSTICE Erik Westbrook REGULATORY SPECIALIST LAB BLOOD ORDERABLES Final Resul t [facility] Department [place] [address] * Comprehensive metabolic panel (08/19/2024 8:20 PM ASSOCIATE PROFESSOR OF CRIMINAL JUSTICE) Sodium 140 135 - 145 mmol/L Comment:Testing performed by : [address] [address] Potassium, pl 3.5 3.3 - 4.9 mmol/L [facility] Comment:Testing performed by : [address] [address] Chloride 104 97 - 110 mmol/L [facility] Comment:Testing performed by : [address] [address] CO2 23 22 - 32 mmol/L [facility] Comment:Testing performed by : [address] [address] Anion gap 13 2 - 15 mmol/L [facility] Comment:Testing performed by : [address] [place]., [address] BUN 11 6 - 25 mg/dL [facility] Comment:Testing performed by : [address] [address] Creatinine 0.71 0.60 - 1.10 mg/dL [facility] Comment:Testing performed by : [address] [address] Glucose 136 70 - 199 mg/dL [facility] [...] was last revised 2022. Testing performed by: [address] [address] Calcium 9.2 8.5 - 10.3 mg/dL [facility] Comment:Testing performed by : [address] [address] Bilirubin, total <0.2 0.1 - 1.2 mg/dL [facility] Comment:Testing performed by : [address] [address] Protein, pl 7.5 6.5 - 8.5 g/dL [facility] Comment:Testing performed by : [address] [address] Albumin 4.4 3.5 - 5.0 g/dL [facility] Comment:Testing performed by : [address] [address] Alk phos 74 40 - 130 Units/L [facility] Comment:Testing performed by : [address] [address] ALT 29 7 - 45 Units/L [facility] Comment:Testing performed by : [address] [address] AST 19 10 - 45 Units/L [facility] Comment:Testing performed by : [facility], [address] [place] [address], [place]., [address] Blood 08/19/2024 8:20 PM ASSOCIATE PROFESSOR OF CRIMINAL JUSTICE 08/19/2024 8:24 PM ASSOCIATE PROFESSOR OF CRIMINAL JUSTICE us Erik Westbrook NP LAB BLOOD ORDERABLES Final Resul t [facility] [address] [facility] Department [place] [address] * Critical Care (08/19/2024 5:13 PM ASSOCIATE PROFESSOR OF CRIMINAL JUSTICE) Narrative Erik Westbrook NP - 08/19/2024 5:13 PM ASSOCIATE PROFESSOR OF CRIMINAL JUSTICE Erik Westbrook NP 08/19/2024 9:10 PM Critical [...] Final Result from Last 3 Months Insurance [facility] OPEN ACCESS [facility] CHOICE [facility] H[facility]/PPO Address[facility] [id number] [place] [address] [facility] CHOICE PLUS [facility] H[facility]/PPO Address: [address] [place] [address] Advance Directives For more information, please contact: [phone] * Full Code (Latest Code Status on File) Date Activated Date Inactivated Comments 09/23/2024 7:38 PM 09/24/2024 5:41 PM * Full Code Date Activated Date Inactivated Comments 09/01/2024 7:30 PM 09/05/2024 3:39 PM * Full Code Date Activated Date Inactivated Comments 08/19/2024 9:45 PM 08/22/2024 5:15 PM Care Teams Molder Foam Rubber Relationship Specialty Start Date End Date Shannan Maldonado MD PCP - General 09/07/19
--- OUTSIDE RECORDS SUMMARY | 2024-09-30 16:58 | XMS_ITS | Encounter Summary ---
Author Organization [facility] Healthcare Address [address] [place] [address] Care Team Providers Care Supervisor Car And Yard Name Role Phone Shannan Maldonado MD Primary Care Provider [phone] Reason for Visit * Reason Comments Shortness of Breath Encounter Details Date Type Department Care Team (Late st Contact Info) Description 09/28/2024 7:55 PM CDT - 09/28/2024 10:39 PM CDT Emergency [facility] Emergency Department [address] [place] [address] [id number] Simran Frank MD [address] [place] [address] [place] [address] Allergic reaction, initial encounter (Primary Dx) Discharge Disposition: Discharge to home or self care Social History Tobacco Use Types Packs/Day Years Used Date Smoking Tobacco: Never Smokeless Tobacco: Never Alcohol Use Standard Drinks/Week Comments Not Currently 0 (1 standard drink = 0.6 oz pur e alcohol) [facility] Utilities Answer Date Recorded In the past 12 months has [employer] electric, gas, oil, or water company threatened [...] often do you attend chur ch or jewish services? Never 09/24/2024 Do you belong to any clubs o r organizations such as worship groups, unions, fraternal or athletic groups, or [...] any time in the past 12 m [facility], were you homeless or living in a jail (including now)? No 09/24/2024 Personal Safety Answer Date Recorded Have you ever been in or are you currently in a harmful physical or emotional relationship or is someone making you feel afraid or unsafe? Denies 09/28/2024 Comments No Sex and Gender Information Value Date Recorded Sex Assigned at Not on file Legal Sex Female 1:34 AM ETHANOL OPERATOR Gender Identity Female 07/01/2022 7:31 PM ETHANOL OPERATOR Sexual Orientation Not on file documented [...] Care Everywhere. * ALLERGIC REACTION, OTHER (LOCAL) (DOMINICAN) documented in this encounter Medications at Time [...] 12 (twelve) hours as needed for congestion Pulmicort Flexhaler 90 mcg/actuation inhaler Inhale 1-2 puffs 2 (two) times a day 09/27/2024 traZODone (DESYREL) 50 mg tablet Take 1 [...] reconstruction 10/2009 (Added by TW Conv) ??? IA BIOPSY MUSCLE SUPERFICIAL Biopsy Muscle - 2006 (Added by TW Conv) ??? IA COLONOSCOPY FLX DX W/COLLJ SPEC WHEN PFRMD Colonoscopy - (Added by TW Conv) IA DILATION & CURETTAGE DX&/THER NONOBSTETRIC Dilation And Curettage - (Added by TW Conv) ??? IA RELEASE TARSAL TUNNEL Decompression Tarsal Tunnel Release Left Foot - (Added by TW Conv) IA TONSILLECTOMY PRIMARY/SECONDARY <AGE 12 Tonsillectomy - (Added by TW Conv) ??? WISDOM TOOTH EXTRACTION Oral Surgery Tooth Extraction [place] Tooth - (Added by TW Conv) Family [...] (Exact Date) SpO2 97% BMI 32.32 kg/m?? [facility] ED Course as of 09/28/242233 Time: 09/28 [...] MD This examination was transcribed using the [employer] voice recognition system without human extracting machine operator. In an effort to expedite patient care, this report has not been adjusted for typographical, grammatical, and syntax by a trained medical insurance biller. Clinical Impression: No diagnosis found. 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 Wheezes throughout upon auscultation with audible [...] METABOLIC PANEL STAT 09/28/2024 8:10 PM CDT ECG 12-LEAD Routine 09/28/2024 8:02 PM CDT documented in this encounter Results [...] anaphylaxis, took her epi pen 15 min scow captain. Wheezes throughout upon auscultation with audible [...] Shirley Reardon M.D. 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 Wheezes throughout upon auscultation with audible [...] Shirley Reardon M.D. SN: SN Report ID: [id number] Reading Location: [place] [address] Simran Frank MD IMG XR PROCEDURES Final [...] anaphylaxis, took her epi pen 15 min scow captain. 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 Wheezes throughout upon auscultation with audible [...] signed by Arnold GRAHAM: GLADYS Report ID: [id number] Reading Location: [id number] Simran Frank MD IMG XR PROCEDURES Final [...] last reviewed 2021. Testing performed by: [address] [address] Blood 09/28/2024 8:10 PM CDT 09/28/2024 8:12 PM CDT Simran Frank MD LAB BLOOD ORDERABLES Ruthy trivedi Result [facility] [address] [facility] Department of Laboratories [place], [place] [id number] * (ABNORMAL) Differential, auto (09/28/2024 8:10 PM CDT) Neutrophil abs 12.9(H) 1.5 - 6.5 K/cumm Comment:Testing performed by : [address] [address] Imm gran abs 0.2(H) 0.0 - 0.1 K/cumm [facility] Comment:Testing performed by : [address] [address] Lymphocyte abs 3.9(H) 0.8 - 3.3 K/cumm [facility] Comment:Testing performed by : [address] [address] Monocyte abs 1.6(H) 0.2 - 0.8 K/cumm [facility] Comment:Testing performed by : [address] [address] Eosinophil abs 0.0 0.0 - 0.5 K/cumm [facility] Comment:Testing performed by : [address] [address] Basophil abs 0.0 0.0 - 0.1 K/cumm [facility] Comment:Testing performed by : [address] [address] Neutrophil pct 69.2 % [facility] Comment: Interpretive Data Percent cell count reference ranges are not reported, since discordance with absolute values may lead to misinterpretation of CBC data. Current Interpretive Data was last revised on 2017. Testing performed by: [address] [address] Imm gran pct 1.1 % [facility] Comment: Interpretive Data Percent cell count reference ranges are not reported, since discordance with absolute values may lead to misinterpretation of CBC data. Current Interpretive Data was last revised on 2017. Testing performed by: [address] [address] Lymphocyte pct 20.7 % [facility] Comment: Interpretive Data Percent cell count reference ranges are not reported, since discordance with absolute values may lead to misinterpretation of CBC data. Current Interpretive Data was last revised on 2017. Testing performed by: [address] [address] Monocyte pct 8.7 % [facility] Comment: Interpretive Data Percent cell count reference ranges are not reported, since discordance with absolute values may lead to misinterpretation of CBC data. Current Interpretive Data was last revised on 2017. Testing performed by: [address] [address] Eosinophil pct 0.1 % [facility] Comment: Interpretive Data Percent cell count reference ranges are not reported, since discordance with absolute values may lead to misinterpretation of CBC data. Current Interpretive Data was last revised on 2017. Testing performed by: [address] [address] Basophil pct 0.2 % [facility] Comment: Interpretive Data Percent cell count reference ranges are not reported, since discordance with absolute values may lead to misinterpretation of CBC data. Current Interpretive Data was last revised on 2017. Testing performed by: [address] [address] Blood 09/28/2024 8:10 PM CDT 09/28/2024 8:11 PM CDT Simran Frank MD LAB BLOOD ORDERABLES Ruthy farooq Result [facility] [address] [facility] Department [place] [address] * (ABNORMAL) Comprehensive metabolic panel (09/28/2024 8:10 PM CDT) Sodium 142 135 - 145 mmol/L Comment:Testing performed by : [address] [address] Potassium, pl 3.2(L) 3.3 - 4.9 mmol/L [facility] Comment:Testing performed by : [address] [address] Chloride 103 97 - 110 mmol/L [facility] Comment:Testing performed by : [address] [address] CO2 23 22 - 32 mmol/L [facility] Comment:Testing performed by : [address] [address] Anion gap 16(H) 2 - 15 mmol/L [facility] Comment:Testing performed by : [address] [address] BUN 18 6 - 25 mg/dL [facility] Comment:Testing performed by : [address] [address] Creatinine 0.80 0.60 - 1.10 mg/dL [facility] Comment:Testing performed by : [address] [address] Glucose 108 70 - 199 mg/dL [facility] [...] last revised 2022. Testing performed by: [address] [address] Calcium 10.0 8.5 - 10.3 mg/dL [facility] Comment:Testing performed by : [address] [address] Bilirubin, total <0.2 0.1 - 1.2 mg/dL [facility] Comment:Testing performed by : [address] [address] Protein, pl 7.4 6.5 - 8.5 g/dL [facility] Comment:Testing performed by : [address] [address] Albumin 4.4 3.5 - 5.0 g/dL [facility] Comment:Testing performed by : [address] [address] Alk phos 77 40 - 130 Units/L [facility] Comment:Testing performed by : [address] [address] ALT 28 7 - 45 Units/L [facility] Comment:Testing performed by : [address] [address] AST 22 10 - 45 Units/L [facility] Comment:Testing performed by : [address] [address] Blood 09/28/2024 8:10 PM CDT 09/28/2024 8:12 PM CDT us Simran Frank MD LAB BLOOD ORDERABLES Ruthy trivedi Result [facility] [address] [facility] Department of Laboratories [place], [place] [id number] * (ABNORMAL) CBC with auto differential (09/28/2024 8:10 PM CDT) [facility] Signature WBC 18.6(H) 3.8 - 9.9 K/cumm Comment:Testing performed by : [address] [address] Hgb 11.3(L) 11.9 - 15.5 g/dL [facility] Comment:Testing performed by : [address] [address] Hct 36.0 35.6 - 45.5 % [facility] Comment:Testing performed by : [address] [address] Plt 601(H) 150 - 400 K/cumm [facility] Comment:Testing performed by : [address] [address] MPV 9.1 9.1 - 12.3 fL [facility] Comment:Testing performed by : [address], [address] RBC 4.56 3.90 - 5.20 M/cumm [facility] Comment:Testing performed by : [address] [address] MCV 78.9(L) 81.3 - 96.4 fL [facility] Comment:Testing performed by : [address] [address] MCH 24.8(L) 27.1 - 33.3 pg [facility] Comment:Testing performed by : [address], [address] MCHC 31.4(L) 32.3 - 35.7 g/dL [facility] Comment:Testing performed by : [address], [address] RDW CV 15.2(H) 11.1 - 14.9 % [facility] Comment:Testing performed by : [address] [address] RDW SD 43.6 35.7 - 48.1 fL [facility] Comment:Testing performed by : [address], [address] NRBC abs 0.03(H) 0.00 - 0.01 K/cumm [facility] Comment:Testing performed by : [facility], [address] [place] [address], [place]., [address] Blood 09/28/2024 8:10 PM CDT 09/28/2024 8:11 PM CDT Simran Frank MD LAB BLOOD ORDERABLES Ruthy l Result Performing Organization Address City/[facility]/ZIP Co de Phone Number [facility] [address] [facility] Department [place] [address] * ECG 12 lead (09/28/2024 8:02 PM CDT) Pathologist [facility] Ventricular Rate EKG/Min 151 BPM [facility] Atrial Rate 151 BPM [facility] IA-Interval (MSEC) 104 ms [facility] QRS-Interval (MSEC) 90 ms [facility] QT-Interval (MSEC) 336 ms [facility] QTc 532 ms [facility] P [place] 37 degrees [facility] R [place] 40 degrees [facility] T [place] 53 degrees [facility] Diagnosis Sinus tachycardia with short IA RSR' or QR pattern in V1 suggests right ventricular conduction delay Abnormal ECG When compared with ECG of 23-SEP-2024 16:46, No significant change Confirmed by BELIA CHU M.D. ([id number]) on 09/29/2024 11:02:24 PM [facility] 09/28/2024 8:02 PM CDT 09/29/2024 11:02 PM CDT Simran Frank MD ECG ORDERABLES Final Res ult [facility] [employer] [facility] documented in this encounter Visit Diagnoses Diagnosis Allergic reaction, initial encounter- Primary documented in this encounter Administered Medications Inactive Administered Medications - up to 3 most recent administrations Medication Order MAR Action Action Date Dose Rate Site famotidine (PEPCID) injection 40 mg 40 mg, intravenous, Administer over 2 Minutes, Once, On 09/28/24 at 1958, For 1 dose, Indications: gastroesophageal reflux diseaseIndications:gastroesophage al reflux disease Given 09/28/2024 8:16 PM CDT 40 mg levalbuterol (XOPENEX) 0.63 mg/3 mL nebulizer solution 0.63 mg 0.63 mg, nebulization, Once, On 09/28/24 at 2051, For 1 dose, I /authorizing provider attest that the patient meets the approved [facility] Use Criteria: Yes Given 09/28/2024 9:05 [...] attest that the patient meets the approved [facility] Use Criteria: Yes 2104 (Given - Provid er: Susan Brown CRTT) methylPREDNISolone sodium succinate (SOLU-medrol) preservative free injection 125 mg (COMPLETED) 125 mg, intravenous, Administer over 3 Minutes, Once, On 09/28/24 at 1958, For 1 dose 2015 (Given - Provid er: Ruiz Wilson RN) documented in this encounter Care Teams Supervisor Car And Yard Relationship Specialty Start Date End Date Shannan Maldonado MD PCP - General 09/07/19 documented as of this encounter
--- OUTSIDE RECORDS SUMMARY | 2024-09-30 16:58 | XMS_ITS ---
Author Organization [facility] Address [address] [place] [address] Care Team Providers Care Motion Picture Film Examiner Name Role Phone Shannan Maldonado Primary Care Provider Romy Clark Unavailable [phone] REASON FOR VISIT Chronic care management Encounters Encounter Location Date Provider Diagnosis [facility] [address] [place] [address] 09/17/2024 Romy Montiel Plan Of Treatment Next Appt Details Provider Name:Romy archer, 10/02/2024 02:45:00 PM, [address] [facility], [address], [place], [address], Progress Notes * Rosangela KOENIGDOB:[birth year] (34 yo F)Acc No.[id number]:09/17/2024 Patient: Rosangela PEGUERO :1990 A ge:34 Y S ex:Female Address:[address] [place] [address] [place], [address] * true * Date: Generated for Printi ng/Faxing/eTransmitting on: 0 09/30/2024 12:50 PM CDT
--- OUTSIDE RECORDS SUMMARY | 2024-09-30 16:58 | XMS_ITS | Continuity of Care Document ---
Author Organization [facility] Address [address] [facility] [address] [place] [address] Phone Care Team Providers Care Aerial Erector Name Role Phone No Information Unavailable Unavailable Advance Directives Directive Yes / No Effective Date File Name No Information Encounters Encounter Description Practice Location Reason(s) For Visit Diagnoses Date Provider Providers Copied on Encounter [facility], [address] [facility] [address], [place], [place], [id number], [place] tel:[phone] [facility] [place] Information No Information Family History Family [...]
--- OUTSIDE RECORDS SUMMARY | 2024-09-30 16:58 | XMS_ITS | Encounter Summary ---
Author Organization [facility] Address [address] [place] [address] Phone Care Team Providers Care Research Contracts Supervisor Name Role Phone Shannan Maldonado MD Primary Care Provider [phone] Encounter Details Date Type Department Care Team [...] on file Legal Sex Female 1:34 AM HEAD OF DATA Gender Identity Female 07/01/2022 7:31 PM HEAD OF DATA Sexual Orientation Not on file documented as of this encounter Plan of Treatment Not on file documented as of this encounter Procedures Procedure Name Priority Date/Time Associated Diagnosis Comments SCAN - LABS 10/28/2021 documented in this encounter Results * SCAN - LABS (10/28/2021) us Provider Scanning Final Result documented in this encounter Visit Diagnoses Not on filedocumented in this encounter Care Teams Research Contracts Supervisor Relationship Specialty Start Date End Date Shannan Maldonado MD PCP - General 09/07/19 documented as of this encounter
--- OUTSIDE RECORDS SUMMARY | 2024-09-30 16:58 | XMS_ITS ---
Author Organization [facility] Address [address] [place] [address] Care Team Providers Care Ride Assembly Supervisor Name Role Phone Shannan Maldonado Primary Care Provider Romy Clark Unavailable [phone] REASON FOR VISIT XOLAIR SP Follow-up Encounters Encounter Location Date Provider Diagnosis [facility] [address] [place] [address] [address] [place] [address] 09/25/2024 Romy Montiel Plan Of Treatment Next Appt Details Provider Name:Romy archer, 10/02/2024 02:45:00 PM, [address] [facility], [address], [place], [address], Progress Notes * Rosangela KOENIGDOB:[birth year] (34 yo F)Acc No.[id number]:09/25/2024 XOLAIR F/U Patient: Janis Rosangela ACOSTA Provider: Nani Montiel MD :1990 A ge:34 Y S ex:Female Date:09/25/2024 Address:[facility] [address] [place], [id number] Pcp:Shannan Maldonado Subjective: * Chief Complaints: * 1 . XOLAIR SP Follow-up. * Medical History: Objective: * Vitals: Assessment: Plan: * Treatment: * Billing Information: * Visit Code: * Procedure Codes: * Electronic signature of Bailey Montiel MD on 09/30/2024 at 12:50 PM CDT Sign off status: Pending * Provider: Nani Montiel MD Date: 0 09/25/2024 Generated for Robert brady/Jacque/Kiya on: 0 09/30/2024 12:50 PM CDT
--- OUTSIDE RECORDS SUMMARY | 2024-09-30 16:58 | XMS_ITS | Clinical Summary ---
Author Organization [facility] Address [address] [place] [address] Care Team Providers Care Botany Professor Name Role Phone Shannan Maldonado MD Primary Care Provider [phone] Source Comments [facility],non-[facility] Affiliates and Associated Physician Practices is amultiple site organization consisting of ambulatory clinics and hospital sitesin [place], [place], [place] and [place]. This disclosure is being madepursuant to the Care Everywhere program and may not contain all information available regarding this patient. Last updated 18.[facility] Allergies Active Allergy Reactions Criticality Noted Date [...] fluticasone propionate (FLONASE) 50 MCG/ACT nasal spray Liberty 2 sprays into each nostril once daily [...] 06/13/2019 Assessment & Plan (06/13/2019 10:22 AM SAS DEVELOPER ANALYST): POTS patients commonly have mast cell disorders. [...] 2015 Assessment & Plan (06/13/2019 10:19 AM SAS DEVELOPER ANALYST): Would avoid high osmotic salt loads/salt tablets. Ok to just liberalize salt intake and eat banannas for potassium Postural orthostatic tachycardia syndrome 2015 Assessment & Plan (09/05/2019 10:06 AM SAS DEVELOPER ANALYST): Her symptoms are well-controlled today. She dislocated [...] intake. Assessment & Plan (06/13/2019 10:47 AM SAS DEVELOPER ANALYST): Postural orthostatic tachycardia syndrome (POTS) is a [...] 05/21/2010 Assessment & Plan (09/05/2019 10:07 AM SAS DEVELOPER ANALYST): She had a routine screening echo today. Her aortic root today does not appear dilated by my view. Will await final read and call her if this is abnormal. Otherwise, q2yr echo. Assessment & Plan (06/13/2019 10:18 AM SAS DEVELOPER ANALYST): The patient was diagnosed with EDS several [...] Comments Blood Pressure 122/90 09/05/2019 9:40 AM SAS DEVELOPER ANALYST Pulse 112 09/05/2019 9:40 AM SAS DEVELOPER ANALYST Temperature 36.8 C (98.2 F) 03/02/2019 7:52 AM CDT Respiratory Rate 18 03/02/2019 7:52 AM CDT Oxygen Saturation 99% 06/13/2019 8:42 AM SAS DEVELOPER ANALYST Inhaled Oxygen Concentration - - Weight 63.5 kg (140 lb) 09/05/2019 8:22 AM SAS DEVELOPER ANALYST Height 170.2 cm (5' 7 ) 09/05/2019 8:22 AM SAS DEVELOPER ANALYST Body Mass Index 21.93 09/05/2019 8:22 AM SAS DEVELOPER ANALYST Plan of Treatment Upcoming Encounters Date Type Department Care Team (Late st Contact Info) Description 11/08/2024 3:40 PM CDT Office Visit [facility] - Cardiology [address], [facility] [address] [place] [address] Javed Julio MD [address] [place] [address] Health Maintenance Due Date Last [...] ve Non-react hayder 02/28/2019 4:05 PM CDT [facility] Comment: Neither HIV-1 p24 Antigen nor HIV-1/HIV-2 Antibodies are detected. Blood BLOOD SPECIMEN / Unknown Venipuncture / Unknown 02/28/2019 1:57 PM CDT 02/28/2019 3:22 PM CDT Abel Barrientos MD LAB - HEMATOLOGY ORD ERABLES [address] [phone] from Last 3 Months or Most Recently Relevant to Health Maintenance Advance Directives * Full Code (Latest Code Status on File) Date Activated Date Inactivated Comments 02/28/2019 11:41 PM 03/02/2019 12:34 PM * Full Code Date Activated Date Inactivated Comments 02/28/2019 8:46 PM 02/28/2019 11:41 PM Care Teams Botany Professor Relationship Specialty Start Date End Date Shannan Maldonado MD [address] [place] [address] PCP - General Family Medicine 03/22/16
--- OUTSIDE RECORDS SUMMARY | 2024-09-30 16:58 | XMS_ITS | Encounter Summary ---
Author Organization [facility] Address [address] [place] [address] Phone Care Team Providers Care Concrete Journeyman Name Role Phone Shannan Maldonado MD Primary Care Provider [phone] Encounter Details Date Type Department Care Team (Late st Contact Info) Description 09/30/2024 1:00 PM CDT Office Visit [facility] [address] [address] [place] [address] Oneyda Vaughan NP [address] [place] [address] SOB (shortness of breath) (Primary Dx) Social History Tobacco Use Types Packs/Day Years Used Date Smoking Tobacco: Never Smokeless Tobacco: Never Alcohol Use Standard Drinks/Week Comments Not Currently 0 (1 standard drink = 0.6 oz pur e alcohol) [facility] Utilities Answer Date Recorded In the past 12 months has [employer], gas, oil, or water company threatened [...] often do you attend chur ch or anabaptist services? Never 09/24/2024 Do you belong to any clubs o r organizations such as nondenominational groups, unions, fraternal or athletic groups, or [...] time in the past [address] [facility], were you homeless or living in a [facility] (including now)? No 09/24/2024 Personal Safety Answer Date Recorded Have you ever been in or are you currently in a harmful physical or emotional relationship or is someone making you feel afraid or unsafe? Denies 09/28/2024 Comments No Sex and Gender Information Value Date Recorded Sex Assigned at Not on file Legal Sex Female 1:34 AM ENTRY TECH Gender Identity Female 07/01/2022 7:31 PM ENTRY TECH Sexual Orientation Not on file documented as [...] Mass Index 32.45 09/30/2024 12:51 PM CDT documented in this encounter Ordered Prescriptions Prescription Sig Dispense Quantity Refills Last Filled Start Date End Date ipratropium-albut Mei (DUO-NEB) 0.5-2.5 mg/3 mL nebulizer solutionIndicatio ns:SOB (shortness of breath) Take 3 mL by nebulization every 6 (six) hours 180 mL 3 09/30/2024 documented in this encounter Progress Notes * Oneyda Vaughan NP - 09/30/2024 1:00 PM CDT History of Present Illness: Rosangela Koenig is a 34 y.o. 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 She is seen for a non routine follow up visit after recent ED admission. She was last seen in our clinic 05/13/24. She is a patient of Dr. Suarez. Brief History She has a history of normal tryptase and urine studies, but has symptoms consistent with MCAS and improvement on medication for it. Patient's onset of idiopathic anaphylaxis was in 2014, with remission after prolonged steroid course. In 2021, patient has had a series of idiopathic anaphylaxis starting approx 2 weeks after receiving a COVID vaccination. She was unable to tolerate cromolyn. She hashad marked improvement in reactions with being on Xolair. She has had a previous work up negative for alpha gal, and immunoglobulins that are not concerning for MGUS. During her last visit in May 2024, she was advised to continue Zyrtec twice daily and famotidine twice daily, Xolair 300mg q2 weeks (receives at outside licensed surveyor office). Advised to continue carrying epinephrine with her. Advised to use topical hydrocortisone as needed on face and chest for hives and rash. She was followed by GI for cyclical vomiting syndrome and was treated with compazine and Reglan. She has history of migraines and was advised to: Discuss with PCP treatment options as she was having debilitating migraines at least 3 times a month and was only taking Excedrin migraines. Interval History 09/30/24 Since the patient's last visit, she has been seen in the ED multiple times concerns of allergic reactions. Per our records, she has been to the ED 05/21/24, 06/03/24. 08/19/24, 09/01/24, 09/23/24, 09/27/24, 09/28/24. The patient reports being seen several times at other facilities. In total, she reports be ing to the ED 13 times since August. Episodes always start off with hives that are hot and itchy (photos shown). She then develops sensation of throat tightness and SOB. She uses epi pen when this occurs (about 10 min after first symptom onset). She then seeks care at ER. She is often treated with steroids, benadryl, Pepcid. She was given another dose of epi two times. She has never needed to be intubated. She is a hard stick and has bruises up and down her arms from being stuck. This makes it difficult to administer IV medications during these episodes. She denies any changes if home environment, new diagnosis, new foods, new pets. She reports being on control and then discounting it due to concerns of it causing allergic reaction. However, she has continued to have these episodes since discontinuing it. There is not pattern of day that these reactions follow. They can occur daytime or nighttime (while asleep). She has never been seen by ENT for this. She reports never being scoped during these episodes. She did have neck imaging with last episode which was WNL. She is taking 2 tablets of Zyrtec BID, pepcid BID, and Xolair every 2 weeks. She has these reactions a couple days after her Xolair, but not immediately. She does not feel like the Xolair is working anymore. She is not usually late on her dose. She is a bit late this time due to being in the ED on the day she was suppose to get Xolair dosed. She was on singular before but this was discontinued while she was doing well. She would be okay with restarting this. She is following with another licensed surveyor, Dr. Tisha Baptiste. She reports being sick in August with bronchitis. She reports being diagnosed with asthma in the past but not needing inhalers. She recently was prescribed PRN inhaler while sick. She did receive a duoneb treatment in the ED recently which did seem to help her symptoms. She has the machine but not the medication. She is curently on 50 mg prednisone daily. She is adopted and has no children. She reports ongoing joint pain and frequent jaw dislocations with swelling during these episodes. She follows with an EDS provider in [place] (Dr. Denis Bush) She is going to see a regional sales consultant soon for POTS. Review of Systems: As in the HPI. Medications: Current Outpatient Medications Medication Sig xnrltdhccdbtd-ektfgzo-tjpcrgia (EXCEDRIN MIGRAINE) 250-250-65 mg per tablet Take 1 tablet by mouth every 6 (six) hours as needed albuterol HFA (PROVENTIL HFA,VENTOLIN HFA,PROAIR HFA) 90 mcg/actuation inhaler Inhale 1 puff every 4 (four) hours as needed cetirizine (ZyrTEC) 10 mg tablet Take 1 tablet (10 mg total) by mouth 2 (two) times a day cyclobenzaprine (FLEXERIL) 10 mg tablet Take 1 tablet (10 mg total) by mouth 2 (two) times a day diazePAM (VALIUM) 5 mg tablet Take 1 tablet (5 mg total) by mouth 3 (three) times a day as needed for anxiety EPINEPHrine (EpiPen) 0.3 mg/0.3 mL auto-injection syringe Inject 0.3 mL (0.3 mg total) into the muscle as instructed as needed for anaphylaxis famotidine (PEPCID) 40 mg tablet Take 1 tablet (40 mg total) by mouth 2 (two) times a day metoclopramide (REGLAN) 10 mg tablet Take 1 tablet (10 mg total) by mouth 2 (two) times a day as needed omalizumab (Xolair) 300 mg/2 mL syringe Inject 2 mL (300 mg total) under the skin every 14 (fourteen) days predniSONE (DELTASONE) 20 mg tablet Take 2 tablets (40 mg) by mouth daily prochlorperazine (COMPAZINE) 10 mg tablet Take 1 tablet (10 mg total) by mouth every 6 (six) hours as needed for nausea or vomiting pseudoephedrine ER (SUDAFED) 120 mg 12 hr tablet Take 1 tablet (120 mg total) by mouth every 12 (twelve) hours as needed for congestion Pulmicort Flexhaler 90 mcg/actuation inhaler Inhale 1-2 puffs 2 (two) times a day traZODone (DESYREL) 50 mg tablet Take 1 tablet (50 mg total) by mouth nightly as needed for sleep triamcinolone (KENALOG) 0.1 % paste Apply 0.25 inches to teeth 2 (two) times a day as needed for mucositis ipratropium-albuteroL (DUO-NEB) 0.5-2.5 mg/3 mL nebulizer solution Take 3 mL by nebulization every 6 (six) hours Allergies: Allergies Allergen Reactions Azithromycin Vomiting, Stomach upset and Other (See comments) Stomach/GI Upset Clarithromycin Anaphylaxis, Swelling and Nausea & Vomiting Swelling Clavulanic Acid Stomach upset Stomach/GI Upset Hydrocodone Itching, Anaphylaxis and Hives Itching Hydromorphone Hives, Palpitations, Angioedema, Itching and Other (See comments) Hives Meperidine Vomiting, Nausea And Vomiting, Stomach upset and Nausea & Vomiting Stomach/GI Upset Nuts Anaphylaxis Ondansetron Palpitations, Other (See comments) and Stomach upset Prolonged qt Stomach/GI Upset Peanut Anaphylaxis Peanut Butter Flavor Angioedema Adhesive Blisters and Rash Reaction: Rash, Blisters, Tree Nuts Swelling Lorazepam Other (See comments) Weird out of body Augmentin [Amoxicillin-Pot Clavulanate] Itching Duloxetine Fatigue, Itching and Other (See comments) Itching adverse reaction Physical Exam: Vitals BP 133/95 (BP Location: Left arm, Patient Position: Sitting) Pulse 115 Temp 36.7 ??C (98.1 ??F) (Oral) Resp 18 Ht 170.2 cm (5' 7 ) Wt 94 kg (207 lb 3.2 oz) LMP 08/26/2024 (Exact Date) SpO2 97% BMI 32.45 kg/m?? Gen: Well developed, well nourished female in NAD. HENT: Right Ear: Tympanic membrane intact Left Ear: Tympanic membrane intact Nose: mild congestion and mild rhinorrhea present. Mouth/Throat: Mucous membranes are moist. Pharynx: Oropharynx is clear without cobblestoning Eyes: Pupils: Pupils are equal, round, and reactive to light. Cardiovascular: Rate and Rhythm: Normal rate and regular rhythm. Pulmonary: Effort: Pulmonary effort is normal. Breath sounds: Normal breath sounds. No wheezing. Skin: General: Skin is warm and dry. Neurological: Mental Status: Alert and oriented to person, place, and time. Results: Testing from previous visits were reviewed in [facility]. Assessment and Plan: Rosangela Koenig is a 34 y.o. 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 She is seen for a non routine follow up visit after recent ED admission. Since the patient's last visit, she has been seen in the ED multiple times concerns of allergic reactions. Per our records, she has been to the ED 05/21/24, 06/03/24. 08/19/24, 09/01/24, 09/23/24, 09/27/24, 09/28/24. The patient reports being seen several times at other facilities. In total, she reports be ing to the ED 13 times since August. Episodes always start off with hives that are hot and itchy and then progress to sensation of throat tightness and SOB. She uses epi pen when this occurs (about 10 min after first symptom onset). Shethen seeks care at ER. She has epi pen refill that she plans to picking table worker from her pharmacy. She is a hard stick and has bruises up and down her arms from being stuck. This makes it difficult to administer IV medications during these episodes. I will discuss this with Dr. Arnett. She has never been seen by ENT for this. We could consider ENT referral for PVFM. She will continue taking 2 tablets of Zyrtec BID and pepcid BID. She was on singular before but this was discontinued while she was doing well. She would be okay with restarting this. I will discuss this with Dr. Suarez. She is following with another licensed surveyor, Dr. Tisha Baptiste. I think it would be best if Dr. Suarez and I collaborate with her as well for a team based approach. She reports being sick in August with bronchitis. She reports being diagnosed with asthma in the past but not needing inhalers. She recently was prescribed PRN inhaler while sick. She did receive a duoneb treatment in the ED recently which did seem to help her symptoms. She has the machine but not the medication. I have sent in duoneb treatments for her to use PRN. She reports ongoing joint pain and frequent jaw dislocations with swelling during these episodes. She will continue to follow with an EDS provider in [place] (Dr. Denis Bush) She will see regional sales consultant soon for POTS. We could consider repeat blood work including Tryptase. However, given the patient is a difficult stick and she must go to [employer] for her insurance coverage, we will hold off on blood work until I speak with Dr. Suarez. I discussed with the patient that her plan of care will need to be discussed with Dr. Suarez for a team based approach and collaborative care. She is in agreement with the plan. I have reached out toDr. Suarez today to discuss. The patient has an appointment with Dr. Suarez next week. Follow Up: Return for Next scheduled follow up. Orders Placed This Encounter ipratropium-albuteroL (DUO-NEB) 0.5-2.5 mg/3 mL nebulizer solution Sig: Take 3 mL by nebulization every 6 (six) hours Dispense: 180 mL Refill: 3 My total encounter time on 09/30/2024 was 45 minutes which was spent in the activities documented inthe note. This includes time spent prior to the visit and after the visit in direct care of the patient. This time does not include time spent in any separately reportable services. Oneyda Vaughan NP documented in this encounter Plan of Treatment Not on file documented as of this encounter Visit Diagnoses Diagnosis SOB (shortness of breath)- Primary Shortness of breath documented in this encounter Historical Medications * This list may reflect changes made after this encounter. Pulmicort Flexhaler 90 mcg/actuation inhaler Inhale 1-2 puffs 2 (two) times a day 09/27/2024 acetaminophen-asp irin-caffeine (EXCEDRIN MIGRAINE) 250-250-65 mg per tablet Take 1 tablet by mouth every 6 (six) hours as needed albuterol HFA (PROVENTIL HFA,VENTOLIN HFA,PROAIR HFA) 90 mcg/actuation inhaler Inhale 1 puff every 4 (four) hours as needed added in this encounter Care Teams Concrete Journeyman Relationship Specialty Start Date End Date Shannan Maldonado MD PCP - General 09/07/19 documented as of this encounter
--- OUTSIDE RECORDS SUMMARY | 2024-09-30 16:58 | XMS_ITS ---
Author Organization [facility] Address [address] [place] [address] Care Team Providers Care Used Car Manager Name Role Phone Shannan Maldonado Primary Care Provider Romy Clark Unavailable [phone] Allergies Allergen (clinical drug ingredient) Drug/Non Drug [...] 09/11/2024 Encounters Encounter Location Date Provider Diagnosis [facility] [address] [address] 09/11/2024 Romy Montiel Idiopathic urticaria L50.1 ; [...] Provider Name:Romy archer, 10/02/2024 02:45:00 PM, [address] [facility], [address], [place], [address], Procedure Notes * Category Sub-Category Detail Notes XOLAIR (omalizumab) Administration Dosing Time / Vitals Kanchan Willard 09/11/2024 11:15:51 AM CDT >, Time of administration, See initial vitals Dosage 300 mg (60 units) Location LLA Reaction None Frequency q 2 weeks AIE (epinephrine) on patient? yes Lot Number / Expiration Lot Number(s):[id number], Expiration Date:03/2025 Post-procedural check-out: Vital signs t aken 30 minutes after dosing administration: Safety: Staff verified patie nt is carrying AIE (epinephrine) at all times given risk of anaphylaxis?: Yes Medication Source XOLAIR Source: [facility] (Insurance-provided) Reason for SP:: Patient is approved for SP and has vials on-hand to administer Source Verification:: Yes Hanh/ Kanchan/ Medical necessity for in-off ice administration: The patient or caregiver is not suitable , not competent or is physically unable to administer the XOLAIR product FDA-labeled for self-administration for the following reason(s):: needle phobia Progress Notes * PA Rosanegla CardozaDOB:[birth year] (34 yo F)Acc No.[id number]:09/11/2024 XOLAIR F/U Patient: Rosangela PEGUERO Provider: Nani Montiel MD :1990 A ge:34 Y S ex:Female Date:09/11/2024 Address[id number] Pcp:Shannan Maldonado Subjective: * Chief Complaints: * [...] EpiPen at home and taken to the [facility] ER. She was given further epinephrine [...] off control and planning to f/u with OBROEGRN. She has been off buspirone and mirtazapine [...] or Cymbalta. Zofran caused prolonged QT syndrome. Photographic Process Attendant Dr. Denis Bush Cutter Operator Tile Dr. Jose Luis Jacques at [facility] Dr. Ngozi Maldonado. * ROS: A [...] heating? Y es Gas or electric? e [facility] Fireplace? N o Wood burning stove? N [...] your bedroom? Y es Do you have beqv-ch-jnhq carpeting? Y es What material(s) are used [...] es. Lot Number / Expiration L ot Number(s):[id number], Expiration Date:03/2025. Post-procedural check-out: V ital signs taken 30 minutes after dosing administration:. Safety: S taff verified patient is carrying AIE (epinephrine) at all times given risk of anaphylaxis? Y es Medication Source [facility] R danielito for SP: P atient is approved for SP and has vials on-hand to administer S ource Verification: Y chantel Hanh/ Kanchan/ Medical necessity for in-corporate responsibility officer: T he patient or caregiver is not suitable, not competent or is physically unable to administer the XOLAIR product FDA-labeled for self-administration for the following reason(s): n eedle phobia P ost vitals 139/96, O2 98%, RR 14, HR 127. * Procedure Codes: G 8427 DOC MEDS VERIFIED W/PT OR [id number] PT-FOCUSED HLTH RISK [id number] CHEMO, ANTI-NEOPL, SQ/IM * Preventive Medicine: Counseling: [...] Administration) * Billing Information: * Visit Code: 39357 Office Visit, Est Pt., Level 4. Modifiers: 25 * Procedure Codes: G8427 DOC MEDS VERIFIED W/[place]. [address] PT-FOCUSED HLTH RISK ASSMT. 28356 CHEMO, ANTI-NEOPL, SQ/IM. * Sign off status: Completed true * Provider: Nani Montiel MD Date: 0 09/11/2024 Generated for Claribeli ng/Fakeyshag/eTransmitting on: 0 09/30/2024 04:57 PM CDT History and Physical Notes * [...] EpiPen at home and taken to the [facility] ER. She was given further epinephrine [...] or Cymbalta. Zofran caused prolonged QT syndrome. Photographic Process Attendant Dr. Denis Bush Cutter Operator Tile Dr. Jose Luis Jacques at [facility] Dr. Ngozi Maldonado *Allergic Rhinoconjunctivitis *Asthma [...]
--- OUTSIDE RECORDS SUMMARY | 2024-09-30 16:58 | XMS_ITS | Clinical Summary ---
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 [address] [place] [address] [address] [place] [address] Oneyda Vaughan NP SOB (shortness of breath) (Primary Dx) 09/30/[address] [facility] [address] [place] [address] [place] [id number] Ame Pulido RN 09/28/2024 7:55 PM CDT - 09/28/2024 10:39 PM CDT Emergency [facility] Emergency Department [address] [place] [address] Simran Frank MD Allergic reaction, initial encounter (Primary Dx) Discharge Disposition: Discharge to home or self care 09/27/2024 3:49 AM CDT - 09/27/2024 6:10 AM CDT Emergency [facility] Emergency Department [address] [place] [address] Fredinand Rivera DO Allergic reaction, initial encounter (Primary Dx); Jaw pain Discharge Disposition: Discharge to home or self care 09/23/2024 4:55 PM CDT - 09/24/2024 1:30 PM CDT Hospital Encounter [place] [address] [address] [place] [address] Samuel Bowen MD Winston, Jared Todd, MD Ali, Md Shahin, MD Allergic reaction, initial encounter (Primary Dx) Discharge Disposition: Discharge to home or self care 09/01/2024 2:02 PM STRUCTURAL ARCHITECT - 09/05/2024 11:38 AM STRUCTURAL ARCHITECT Hospital Encounter [facility] [address] [place] [address] Wil Monteiro MD Gaspe Mudiyanselage, MD Tobin Vinson, Venkat Robin MD Allergic reaction, initial encounter (Primary Dx) Discharge Disposition: Discharge to home or self care 08/19/2024 4:39 PM STRUCTURAL ARCHITECT - 08/22/2024 1:15 PM STRUCTURAL ARCHITECT Hospital Encounter [facility] [address] [place] [address] José Luis Tripp MD Winston, Jorje Lester MD Anaphylaxis, initial encounter (Primary Dx) Discharge Disposition: Discharge to home or self care from Last 3 Months Surgical History Surgery Date Site/Laterality Comments TX BIOPSY MUSCLE SUPERFICIAL Biopsy Muscle - 2006 (Added by TW Conv) KNEE SURGERY Knee Surgery - ligament reconstruction 10/2009 (Added by TW Conv) TX RELEASE TARSAL TUNNEL Decompression Tarsal Tunnel Release Left Foot - (Added by TW Conv) TX TONSILLECTOMY PRIMARY/SECONDARY <AGE 12 Tonsillectomy - (Added by TW Conv) WISDOM TOOTH EXTRACTION Oral Surgery Tooth Extraction [place] Tooth - (Added by TW Conv) TX COLONOSCOPY FLX DX W/LEX J SPEC WHEN PFRMD Colonoscopy - (Added by TW Conv) TX DILATION & CURETTAGE DX&/ THER NONOBSTETRIC Dilation [...] Recorded In the past 12 months has e ITT [employer]IM, gas, oil, or water [email or web address] threatened to shut off services in your [...] often do you attend chur ch or yazidi services? Never 09/24/2024 Do you belong to any clubs o r organizations such as advent groups, unions, fraternal or athletic groups, or [...] on file Legal Sex Female 1:34 AM STRUCTURAL ARCHITECT Gender Identity Female 07/01/2022 7:31 PM STRUCTURAL ARCHITECT Sexual Orientation Not on file Obstetrics History [...] 09/30/2024 12:51 PM CDT Plan of Treatment Health Maintenance [...] VIEWS Critical/Life- Threatening 09/23/2024 8:29 PM CDT TX CLOSED TX STERNOCLAVICULAR DISLC W/MANIPULATION Routine 09/23/2024 [...] 4:27 PM CDT CBC WITHOUT DIFFERENTIAL Routine 06/ 025 4:27 AM STRUCTURAL ARCHITECT CBC WITHOUT DIFFERENTIAL Routine /05/ 025 4:25 AM STRUCTURAL ARCHITECT TROPONIN T HIGH-SENSITIVITY 2-HOUR Timed 09/01/2024 5:11 PM STRUCTURAL ARCHITECT URINALYSIS AND REFLEX TO MICROSCOPIC AND CULTURE STAT 09/01/2024 4:58 PM STRUCTURAL ARCHITECT XR CHEST 1 VIEW ED 09/01/2024 3:05 PM STRUCTURAL ARCHITECT EGFR STAT 09/01/2024 2:59 PM STRUCTURAL ARCHITECT DIFFERENTIAL AUTO STAT 09/01/2024 2:5 9 PM STRUCTURAL ARCHITECT MAGNESIUM STAT 09/01/2024 2:59 PM STRUCTURAL ARCHITECT THYROID FUNCTION CASCADE STAT 025 2:59 PM STRUCTURAL ARCHITECT TROPONIN T HIGH-SENSITIVITY SERIES (BASELINE, 2HR, 4HR, 6HR) STAT 09/01/2024 2:59 PM STRUCTURAL ARCHITECT BASIC METABOLIC PANEL STAT 09/01/2024 2:59 PM STRUCTURAL ARCHITECT CBC WITH AUTO DIFFERENTIAL STAT 09/01/2024 2:59 PM STRUCTURAL ARCHITECT POCT HCG, URINE Routine 09/01/2024 2:28 PM STRUCTURAL ARCHITECT ECG 12-LEAD Routine 09/01/2024 1:54 PM STRUCTURAL ARCHITECT EGFR Routine 08/22/2024 7:57 AM STRUCTURAL ARCHITECT CBC WITHOUT DIFFERENTIAL Routine 025 7:57 AM STRUCTURAL ARCHITECT BASIC METABOLIC PANEL Routine 08/22/2024 7:57 AM STRUCTURAL ARCHITECT EGFR Routine 08/21/2024 7:53 AM STRUCTURAL ARCHITECT CBC WITHOUT DIFFERENTIAL Routine 025 7:53 AM STRUCTURAL ARCHITECT BASIC METABOLIC PANEL Routine 08/21/2024 7:53 AM STRUCTURAL ARCHITECT TX CLOSED TX TEMPOROMANDIBULAR DISLOCATION 1ST/SBSQ Routine 08/20/2024 1:18 PM STRUCTURAL ARCHITECT ED MODERATE SEDATION Routine 08/20/2024 1:18 PM STRUCTURAL ARCHITECT XR MANDIBLE LESS THAN 4 VIEWS Critical/Life- Threatening 08/20/2024 11:41 AM STRUCTURAL ARCHITECT SEPSIS LACTATE WITH REFLEX Timed 08/20/2024 8:24 AM STRUCTURAL ARCHITECT EGFR Routine 08/20/2024 3:25 AM STRUCTURAL ARCHITECT CBC WITHOUT DIFFERENTIAL Routine 025 3:25 AM STRUCTURAL ARCHITECT BASIC METABOLIC PANEL Routine 08/20/2024 3:25 AM STRUCTURAL ARCHITECT SEPSIS LACTATE WITH REFLEX Timed 08/20/2024 3:25 AM STRUCTURAL ARCHITECT ECG 12-LEAD Routine 08/20/2024 2:26 AM STRUCTURAL ARCHITECT SEPSIS LACTATE WITH REFLEX STAT 08/19/2024 8:52 PM STRUCTURAL ARCHITECT ECG 12-LEAD STAT 08/19/2024 8:25 PM STRUCTURAL ARCHITECT EGFR STAT 08/19/2024 8:20 PM STRUCTURAL ARCHITECT DIFFERENTIAL AUTO STAT 08/19/2024 8:2 0 PM STRUCTURAL ARCHITECT CBC WITH AUTO DIFFERENTIAL STAT 08/19/2024 8:20 PM STRUCTURAL ARCHITECT COMPREHENSIVE METABOLIC PANEL STAT 08/19/2024 8:20 PM STRUCTURAL ARCHITECT ED CRITICAL CARE Routine 08/19/2024 5:13 PM STRUCTURAL ARCHITECT from Last 3 Months Results * XR [...] anaphylaxis, 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 Wheezes throughout upon auscultation with audible [...] Shirley Reardon M.D. 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 Wheezes throughout upon auscultation with audible [...] Shirley Reardon M.D. 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 Wheezes throughout upon auscultation with audible [...] Arnold Chahal M.D. 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 Wheezes throughout upon auscultation with audible [...] Arnold Chahal M.D. KH: GLADYS Report ID: [id number] Reading Location: [id number] Simran Frank MD IMG XR PROCEDURES Final [...] last reviewed 2021. Testing performed by: [address] [address] Blood 09/28/2024 8:10 PM CDT 09/28/2024 8:12 PM CDT Simran Frank MD LAB BLOOD ORDERABLES Ruthy l Result [facility] [address] [facility] [place] [address] * (ABNORMAL) Differential, auto (09/28/2024 8:10 PM CDT) Neutrophil abs 12.9(H) 1.5 - 6.5 K/cumm Comment:Testing performed by : [address] [address] Imm gran abs 0.2(H) 0.0 - 0.1 K/cumm [facility] Comment:Testing performed by : [address] [address] Lymphocyte abs 3.9(H) 0.8 - 3.3 K/cumm [facility] Comment:Testing performed by : [address] [address] Monocyte abs 1.6(H) 0.2 - 0.8 K/cumm [facility] Comment:Testing performed by : [address], [place]., [address] Eosinophil abs 0.0 0.0 - 0.5 K/cumm [facility] Comment:Testing performed by : [address], [place]., [address] Basophil abs 0.0 0.0 - 0.1 K/cumm [facility] Comment:Testing performed by : [address] [address] Neutrophil pct 69.2 % [facility] Comment: Interpretive Data Percent cell count reference ranges are not reported, since discordance with absolute values may lead to misinterpretation of CBC data. Current Interpretive Data was last revised on 2017. Testing performed by: [address] [address] Imm gran pct 1.1 % [facility] Comment: Interpretive Data Percent cell count reference ranges are not reported, since discordance with absolute values may lead to misinterpretation of CBC data. Current Interpretive Data was last revised on 2017. Testing performed by: [address] [address] Lymphocyte pct 20.7 % [facility] Comment: Interpretive Data Percent cell count reference ranges are not reported, since discordance with absolute values may lead to misinterpretation of CBC data. Current Interpretive Data was last revised on 2017. Testing performed by: [address] [address] Monocyte pct 8.7 % [facility] Comment: Interpretive Data Percent cell count reference ranges are not reported, since discordance with absolute values may lead to misinterpretation of CBC data. Current Interpretive Data was last revised on 2017. Testing performed by: [address] [address] Eosinophil pct 0.1 % [facility] Comment: Interpretive Data Percent cell count reference ranges are not reported, since discordance with absolute values may lead to misinterpretation of CBC data. Current Interpretive Data was last revised on 2017. Testing performed by: [address] [address] Basophil pct 0.2 % [facility] Comment: Interpretive Data Percent cell count reference ranges are not reported, since discordance with absolute values may lead to misinterpretation of CBC data. Current Interpretive Data was last revised on 2017. Testing performed by: [address] [address] Blood 09/28/2024 8:10 PM CDT 09/28/2024 8:11 PM CDT us Simran Frank MD LAB BLOOD ORDERABLES Ruthy trivedi Result [facility] [address] [facility] [address] [place] [address] * (ABNORMAL) CBC with auto differential (09/28/2024 8:10 PM CDT) WBC 18.6(H) 3.8 - 9.9 K/cumm Comment:Testing performed by : [address] [address] Hgb 11.3(L) 11.9 - 15.5 g/dL [facility] Comment:Testing performed by : [address] [address] Hct 36.0 35.6 - 45.5 % [facility] [place] Comment:Testing performed by : [address] [address] Plt 601(H) 150 - 400 K/cumm [facility] [place] Comment:Testing performed by : [address] [address] MPV 9.1 9.1 - 12.3 fL [facility] [place] Comment:Testing performed by : [address] [address] RBC 4.56 3.90 - 5.20 M/cumm [facility] Comment:Testing performed by : [address] [address] MCV 78.9(L) 81.3 - 96.4 fL [facility] Comment:Testing performed by : [address] [address] MCH 24.8(L) 27.1 - 33.3 pg [facility] Comment:Testing performed by : [address], [address] MCHC 31.4(L) 32.3 - 35.7 g/dL [facility] Comment:Testing performed by : [address], [address] RDW CV 15.2(H) 11.1 - 14.9 % [facility] Comment:Testing performed by : [address], [address] RDW SD 43.6 35.7 - 48.1 fL [facility] Comment:Testing performed by : [address], [address] NRBC abs 0.03(H) 0.00 - 0.01 K/cumm [facility] Comment:Testing performed by : [address] [address] Blood 09/28/2024 8:10 PM CDT 09/28/2024 8:11 PM CDT Simran Frank MD LAB BLOOD ORDERABLES Ruthy trivedi Result [facility] [address] [facility] [place] [address] * (ABNORMAL) Comprehensive metabolic panel (09/28/2024 8:10 PM CDT) Sodium 142 135 - 145 mmol/L Comment:Testing performed by : [address], [address] Potassium, pl 3.2(L) 3.3 - 4.9 mmol/L [facility] Comment:Testing performed by : [address] [address] Chloride 103 97 - 110 mmol/L [facility] Comment:Testing performed by : [address], [place]., [address] CO2 23 22 - 32 mmol/L [facility] Comment:Testing performed by : [address], [place]., [address] Anion gap 16(H) 2 - 15 mmol/L [facility] Comment:Testing performed by : [address], [place]., [address] BUN 18 6 - 25 mg/dL [facility] Comment:Testing performed by : [address], [place]., [address] Creatinine 0.80 0.60 - 1.10 mg/dL [facility] Comment:Testing performed by : [address], [place]., [address] Glucose 108 70 - 199 mg/dL [facility] Comment: Interpretive Data Fasting glucose >/= [...] last revised 2022. Testing performed by: [address] [address] Calcium 10.0 8.5 - 10.3 mg/dL [facility] Comment:Testing performed by : [address] [address] Bilirubin, total <0.2 0.1 - 1.2 mg/dL [facility] Comment:Testing performed by : [address] [address] Protein, pl 7.4 6.5 - 8.5 g/dL [facility] Comment:Testing performed by : [address] [address] Albumin 4.4 3.5 - 5.0 g/dL [facility] Comment:Testing performed by : [address] [address] Alk phos 77 40 - 130 Units/L [facility] Comment:Testing performed by : [address] [address] ALT 28 7 - 45 Units/L [facility] Comment:Testing performed by : [address] [address] AST 22 10 - 45 Units/L [facility] Comment:Testing performed by : [address] [address] Blood 09/28/2024 8:10 PM CDT 09/28/2024 8:12 PM CDT Simran Frank MD LAB BLOOD ORDERABLES Ruthy l Result Performing Organization Address City/State/[facility] Co de Phone Number [facility] [address] [facility] [place] [address] * ECG 12 lead (09/28/2024 8:02 PM CDT) Pathologist [facility] Ventricular Rate EKG/Min 151 BPM [facility] Atrial Rate 151 BPM [facility] TX-Interval (MSEC) 104 ms [facility] QRS-Interval (MSEC) 90 ms [facility] QT-Interval (MSEC) 336 ms [facility] QTc 532 ms [facility] P [place] 37 degrees [facility] R [place] 40 degrees [facility] T [place] 53 degrees [facility] Diagnosis Sinus tachycardia with short TX RSR' or QR pattern in V1 suggests right ventricular conduction delay Abnormal ECG When compared with ECG of 23-SEP-2024 16:46, No significant change Confirmed by BELIA CHU M.D. ([id number]) on 09/29/2024 11:02:24 PM [facility] 09/28/2024 8:02 PM CDT 09/29/2024 11:02 PM CDT Simran Frank MD ECG ORDERABLES Final Res ult Performing Organization Address City/[facility] Co de Phone Number [facility] * eGFR (09/27/2024 2:58 AM CDT) eGFR [...] last reviewed 2021. Testing performed by: [address] [address] Blood 09/27/2024 2:58 AM CDT 09/27/2024 3:03 AM CDT Ferdinand Rivera DO LAB BLOOD ORDERABLES Final Res ult Performing Organization Address City/[facility] Co de Phone Number [facility] [place] [address] [facility] [place] [address] * (ABNORMAL) Differential, auto (09/27/2024 2:58 AM CDT) Neutrophil abs 13.2(H) 1.5 - 6.5 K/cumm Comment:Testing performed by : [address] [address] Imm gran abs 0.1 0.0 - 0.1 K/cumm [facility] Comment:Testing performed by : [address] [address] Lymphocyte abs 1.7 0.8 - 3.3 K/cumm [facility] Comment:Testing performed by : [address] [address] Monocyte abs 1.0(H) 0.2 - 0.8 K/cumm [facility] Comment:Testing performed by : [address], [place]., [address] Eosinophil abs 0.0 0.0 - 0.5 K/cumm [facility] Comment:Testing performed by : [address], [place]., [address] Basophil abs 0.0 0.0 - 0.1 K/cumm [facility] Comment:Testing performed by : [address] [address] Neutrophil pct 82.5 % [facility] Comment: Interpretive Data Percent cell count reference ranges are not reported, since discordance with absolute values may lead to misinterpretation of CBC data. Current Interpretive Data was last revised on 2017. Testing performed by: [address] [address] Imm gran pct 0.8 % [facility] Comment: Interpretive Data Percent cell count reference ranges are not reported, since discordance with absolute values may lead to misinterpretation of CBC data. Current Interpretive Data was last revised on 2017. Testing performed by: [address] [address] Lymphocyte pct 10.4 % [facility] Comment: Interpretive Data Percent cell count reference ranges are not reported, since discordance with absolute values may lead to misinterpretation of CBC data. Current Interpretive Data was last revised on 2017. Testing performed by: [address] [address] Monocyte pct 6.2 % [facility] Comment: Interpretive Data Percent cell count reference ranges are not reported, since discordance with absolute values may lead to misinterpretation of CBC data. Current Interpretive Data was last revised on 2017. Testing performed by: [address] [address] Eosinophil pct 0.0 % [facility] Comment: Interpretive Data Percent cell count reference ranges are not reported, since discordance with absolute values may lead to misinterpretation of CBC data. Current Interpretive Data was last revised on 2017. Testing performed by: [address] [address] Basophil pct 0.1 % [facility] Comment: Interpretive Data Percent cell count reference ranges are not reported, since discordance with absolute values may lead to misinterpretation of CBC data. Current Interpretive Data was last revised on 2017. Testing performed by: [address] [address] Blood 09/27/2024 2:58 AM CDT 09/27/2024 3:03 AM CDT us Ferdinand Rivera DO LAB BLOOD ORDERABLES Final Res ult [facility] [address] [facility] [place] [address] * (ABNORMAL) CBC with auto differential (09/27/2024 2:58 AM CDT) WBC 15.9(H) 3.8 - 9.9 K/cumm Comment:Testing performed by : [address] [address] Hgb 11.3(L) 11.9 - 15.5 g/dL [facility] Comment:Testing performed by : [address] [address] Hct 36.7 35.6 - 45.5 % [facility] Comment:Testing performed by : [address] [address] Plt 532(H) 150 - 400 K/cumm [facility] Comment:Testing performed by : [address] [address] MPV 9.2 9.1 - 12.3 fL [facility] [place] Comment:Testing performed by : [address] [address] RBC 4.50 3.90 - 5.20 M/cumm [facility] Comment:Testing performed by : [address] [address] MCV 81.6 81.3 - 96.4 fL [facility] Comment:Testing performed by : [address] [address] MCH 25.1(L) 27.1 - 33.3 pg [facility] [place] Comment:Testing performed by : [address] [address] MCHC 30.8(L) 32.3 - 35.7 g/dL [facility] Comment:Testing performed by : [address] [address] RDW CV 15.4(H) 11.1 - 14.9 % [facility] Comment:Testing performed by : [address] [address] RDW SD 45.1 35.7 - 48.1 fL [facility] Comment:Testing performed by : [address] [address] NRBC abs 0.00 0.00 - 0.01 K/cumm [facility] Comment:Testing performed by : [address] [address] Blood 09/27/2024 2:58 AM CDT 09/27/2024 3:03 AM CDT us Ferdinand Rivera DO LAB BLOOD ORDERABLES Final Res ult [facility] [address] [facility] of [facility] [place], [place] [id number] * Comprehensive metabolic panel (09/27/2024 2:58 AM CDT) Sodium 140 135 - 145 mmol/L Comment:Testing performed by : [address] [address] Potassium, pl 3.8 3.3 - 4.9 mmol/L [facility] Comment:Testing performed by : [address] [address] Chloride 103 97 - 110 mmol/L [facility] [place] Comment:Testing performed by : [address], [place]., [address] CO2 23 22 - 32 mmol/L [facility] Comment:Testing performed by : [address] [address] Anion gap 14 2 - 15 mmol/L [facility] Comment:Testing performed by : [address], [place]., [address] BUN 11 6 - 25 mg/dL [facility] Comment:Testing performed by : [address], [place]., [address] Creatinine 0.66 0.60 - 1.10 mg/dL [facility] Comment:Testing performed by : [address], [place]., [address] Glucose 154 70 - 199 mg/dL [facility] [...] last revised 2022. Testing performed by: [address] [address] Calcium 10.3 8.5 - 10.3 mg/dL [facility] Comment:Testing performed by : [address] [address] Bilirubin, total <0.2 0.1 - 1.2 mg/dL [facility] Comment:Testing performed by : [address] [address] Protein, pl 7.8 6.5 - 8.5 g/dL [facility] Comment:Testing performed by : [address], [place]., [address] Albumin 4.5 3.5 - 5.0 g/dL [facility] Comment:Testing performed by : [address] [address] Alk phos 85 40 - 130 Units/L [facility] Comment:Testing performed by : [address] [address] ALT 25 7 - 45 Units/L [facility] [place] Comment:Testing performed by : [address] [address] AST 15 10 - 45 Units/L [facility] Comment:Testing performed by : [address] [address] Blood 09/27/2024 2:58 AM CDT 09/27/2024 3:03 AM CDT Ferdinand Rivera DO LAB BLOOD ORDERABLES Final Res ult [facility] [facility] [place] [address] * eGFR (09/24/2024 3:43 AM CDT) eGFR [...] last reviewed 2021. Testing performed by: [address] [address] Blood 09/24/2024 3:43 AM CDT 09/24/2024 4:47 AM CDT us Dariela Dashoft [employer] LAB BLOOD ORDERABLES Final R esult [facility] [address] [facility] [place] [address] * (ABNORMAL) Differential, auto (09/24/2024 3:43 AM CDT) Neutrophil abs 9.1(H) 1.5 - 6.5 K/cumm Comment:Testing performed by : [address] [address] Imm gran abs 0.0 0.0 - 0.1 K/cumm [facility] Comment:Testing performed by : [address] [address] Lymphocyte abs 0.7(L) 0.8 - 3.3 K/cumm [facility] Comment:Testing performed by : [address] [address] Monocyte abs 0.3 0.2 - 0.8 K/cumm [facility] Comment:Testing performed by : [address] [address] Eosinophil abs 0.0 0.0 - 0.5 K/cumm [facility] Comment:Testing performed by : [address] [address] Basophil abs 0.0 0.0 - 0.1 K/cumm [facility] Comment:Testing performed by : [address] [address] Neutrophil pct 89.5 % [facility] Comment: Interpretive Data Percent cell count reference ranges are not reported, since discordance with absolute values may lead to misinterpretation of CBC data. Current Interpretive Data was last revised on 2017. Testing performed by: [address] [address] Imm gran pct 0.3 % [facility] Comment: Interpretive Data Percent cell count reference ranges are not reported, since discordance with absolute values may lead to misinterpretation of CBC data. Current Interpretive Data was last revised on 2017. Testing performed by: [address] [address] Lymphocyte pct 6.9 % [facility] Comment: Interpretive Data Percent cell count reference ranges are not reported, since discordance with absolute values may lead to misinterpretation of CBC data. Current Interpretive Data was last revised on 2017. Testing performed by: [address] [address] Monocyte pct 3.1 % [facility] Comment: Interpretive Data Percent cell count reference ranges are not reported, since discordance with absolute values may lead to misinterpretation of CBC data. Current Interpretive Data was last revised on 2017. Testing performed by: [address] [address] Eosinophil pct 0.0 % [facility] Comment: Interpretive Data Percent cell count reference ranges are not reported, since discordance with absolute values may lead to misinterpretation of CBC data. Current Interpretive Data was last revised on 2017. Testing performed by: [address] [address] Basophil pct 0.2 % [facility] Comment: Interpretive Data Percent cell count reference ranges are not reported, since discordance with absolute values may lead to misinterpretation of CBC data. Current Interpretive Data was last revised on 2017. Testing performed by: [address] [address] Blood 09/24/2024 3:43 AM CDT 09/24/2024 4:50 AM CDT us Dariela Cortez NP LAB BLOOD ORDERABLES Final R esult TAWNYA [address] [facility] [place] [address] * (ABNORMAL) CBC with auto differential (09/24/2024 3:43 AM CDT) WBC 10.2(H) 3.8 - 9.9 K/cumm Comment:Testing performed by : [address] [address] Hgb 10.5(L) 11.9 - 15.5 g/dL TAWNYA Comment:Testing performed by : [address] [address] Hct 34.2(L) 35.6 - 45.5 % CERBAILEY Comment:Testing performed by : [address] [address] Plt 418(H) 150 - 400 K/cumm TAWNYA Comment:Testing performed by : [address] [address] MPV 9.7 9.1 - 12.3 fL CERBAILEY Comment:Testing performed by : [address], [address] RBC 4.17 3.90 - 5.20 M/cumm TAWNYA Comment:Testing performed by : [address] [address] MCV 82.0 81.3 - 96.4 fL TAWNYA Comment:Testing performed by : [address] [address] MCH 25.2(L) 27.1 - 33.3 pg CERBAILEY Comment:Testing performed by : [address] [address] MCHC 30.7(L) 32.3 - 35.7 g/dL TAWNYA Comment:Testing performed by : [address], [address] RDW CV 15.6(H) 11.1 - 14.9 % TAWNYA Comment:Testing performed by : [address] [address] RDW SD 46.4 35.7 - 48.1 fL TAWNYA Comment:Testing performed by : [address] [address] NRBC abs 0.00 0.00 - 0.01 K/cumm TAWNYA Comment:Testing performed by : [address], [address] Blood 09/24/2024 3:43 AM CDT 09/24/2024 4:50 AM CDT us Dariela Cortez NP LAB BLOOD ORDERABLES Final R esult TAWNYA [address] [facility] Department [place] [address] * (ABNORMAL) Basic metabolic panel (09/24/2024 3:43 AM CDT) Sodium 138 135 - 145 mmol/L Comment:Testing performed by : [address] [address] Potassium, pl 4.2 3.3 - 4.9 mmol/L TAWNYA Comment:Testing performed by : [address] [address] Chloride 107 97 - 110 mmol/L TAWNYA Comment:Testing performed by : [address] [address] CO2 21(L) 22 - 32 mmol/L TAWNYA Comment:Testing performed by : [address] [address] Anion gap 10 2 - 15 mmol/L TAWNYA Comment:Testing performed by : [address] [address] BUN 10 6 - 25 mg/dL TAWNYA Comment:Testing performed by : [address] [address] Creatinine 0.71 0.60 - 1.10 mg/dL TAWNYA Comment:Testing performed by : [address] [address] Glucose 145 70 - 199 mg/dL TAWNYA [...] revised 2022. Testing performed by: [facility], [address] [place] [address]., [address] Calcium 9.7 8.5 - 10.3 mg/dL TAWNYA [place] Comment:Testing performed by : [facility], [address] [place] [address]., [address] Blood 09/24/2024 3:43 AM CDT 09/24/2024 4:47 AM CDT us Dariela Cortez NP LAB BLOOD ORDERABLES Final R esult YABAILEY GENE [address] [facility] [place] [address] * XR Mandible 4 or [...] Arnold Chahal M.D. KH: GLADYS Report ID: [id number] Reading Location: [id number] Procedure Note Arnold Chahal MD - 09/23/2024 [...] Arnold Chahal M.D. KH: GLADYS Report ID: [id number] Reading Location: [place] [address] Darian Goode MD IMG XR PROCEDURES Fi nal Result * TX CLOSED TX STERNOCLAVICULAR DISLC W/MANIPULATION (09/23/2024 7:35 [...] signed by Arnold GRAHAM: GLADYS Report ID: [id number] Reading Location: [id number] Procedure Note Arnold Chahal MD - 09/23/2024 [...] signed by Arnold GRAHAM: GLADYS Report ID: [id number] Reading Location: [id number] Jorje Huynh MD IMG XR PROCEDURES Final [...] López Mcclellan M.D. MM: MM Report ID: [id number] Reading Location: [id number] Procedure Note López Mcclellan MD - 09/23/2024 [...] López Mcclellan M.D. MM: MM Report ID: [id number] Reading Location: [id number] Samuel Bowen MD IMG XR PROCEDURES F inal Result * ECG 12 lead (09/23/2024 4:46 PM CDT) Ventricular Rate EKG/Min 146 BPM [facility] Atrial Rate 292 BPM [facility] QRS-Interval (MSEC) 98 ms [facility] QT-Interval (MSEC) 350 ms [facility] QTc 545 ms [facility] R [place] 58 degrees [facility] T [place] 50 degrees [facility] Diagnosis Sinus tachycardia Incomplete right bundle branch block T-wave changes When compared with ECG of 01-SEP-2024 13:54, No significant change Confirmed by SULTAN ZUNIGA M.D. ([id number]) on 09/23/2024 9:49:04 PM [facility] 09/23/2024 4:46 PM CDT 09/23/2024 9:49 PM CDT us Samuel Bowen MD ECG ORDERABLES Fin al Result [facility] [place] * eGFR (09/23/2024 4:27 PM CDT) eGFR [...] reviewed 2021. Testing performed by: [facility], [address] [place] [address]., [address] Blood 09/23/2024 4:27 PM CDT 09/23/2024 4:39 PM CDT Deisy MARQUEZ LAB BLOOD ORDERABLES Final Resu lt TAWNYA [address] [facility] [place] [address] * (ABNORMAL) Differential, auto (09/23/2024 4:27 PM CDT) Neutrophil abs 7.2(H) 1.5 - 6.5 K/cumm Comment:Testing performed by : [address] [address] Imm gran abs 0.0 0.0 - 0.1 K/cumm TAWNYA Comment:Testing performed by : [address] [address] Lymphocyte abs 2.4 0.8 - 3.3 K/cumm TAWNYA Comment:Testing performed by : [address] [address] Monocyte abs 0.8 0.2 - 0.8 K/cumm TAWNYA Comment:Testing performed by : [address] [address] Eosinophil abs 0.1 0.0 - 0.5 K/cumm TAWNYA Comment:Testing performed by : [address] [address] Basophil abs 0.1 0.0 - 0.1 K/cumm TAWNYA Comment:Testing performed by : [address] [address] Neutrophil pct 68.6 % TAWNYA Comment: Interpretive Data Percent cell count reference ranges are not reported, since discordance with absolute values may lead to misinterpretation of CBC data. Current Interpretive Data was last revised on 2017. Testing performed by: [address] [address] Imm gran pct 0.4 % TAWNYA Comment: Interpretive Data Percent cell count reference ranges are not reported, since discordance with absolute values may lead to misinterpretation of CBC data. Current Interpretive Data was last revised on 2017. Testing performed by: [address] [address] Lymphocyte pct 22.5 % TAWNYA Comment: Interpretive Data Percent cell count reference ranges are not reported, since discordance with absolute values may lead to misinterpretation of CBC data. Current Interpretive Data was last revised on 2017. Testing performed by: [address] [address] Monocyte pct 7.1 % [facility] Comment: Interpretive Data Percent cell count reference ranges are not reported, since discordance with absolute values may lead to misinterpretation of CBC data. Current Interpretive Data was last revised on 2017. Testing performed by: [address] [address] Eosinophil pct 0.7 % [facility] Comment: Interpretive Data Percent cell count reference ranges are not reported, since discordance with absolute values may lead to misinterpretation of CBC data. Current Interpretive Data was last revised on 2017. Testing performed by: [address] [address] Basophil pct 0.7 % [facility] Comment: Interpretive Data Percent cell count reference ranges are not reported, since discordance with absolute values may lead to misinterpretation of CBC data. Current Interpretive Data was last revised on 2017. Testing performed by: [address] [address] Blood 09/23/2024 4:27 PM CDT 09/23/2024 4:39 PM CDT us Samuel Bowen MD LAB BLOOD ORDERABLE S Final Result TAWNYA [place] [address] [facility] Department [place] [address] * (ABNORMAL) CBC with auto differential (09/23/2024 4:27 PM CDT) WBC 10.5(H) 3.8 - 9.9 K/cumm Comment:Testing performed by : [address] [address] Hgb 11.9 11.9 - 15.5 g/dL TAWNYA Comment:Testing performed by : [address], [address] Hct 40.4 35.6 - 45.5 % TAWNYA Comment:Testing performed by : [address] [address] Plt 517(H) 150 - 400 K/cumm TAWNYA Comment:Testing performed by : [address], [address] MPV 9.3 9.1 - 12.3 fL TAWNYA Comment:Testing performed by : [address], [address] RBC 4.93 3.90 - 5.20 M/cumm TAWNYA Comment:Testing performed by : [address], [address] MCV 81.9 81.3 - 96.4 fL TAWNYA Comment:Testing performed by : [address], [address] MCH 24.1(L) 27.1 - 33.3 pg TAWNYA Comment:Testing performed by : [address], [address] MCHC 29.5(L) 32.3 - 35.7 g/dL TAWNYA Comment:Testing performed by : [address], [address] RDW CV 15.6(H) 11.1 - 14.9 % TAWNYA Comment:Testing performed by : [address], [address] RDW SD 46.5 35.7 - 48.1 fL TAWNYA Comment:Testing performed by : [address], [address] NRBC abs 0.00 0.00 - 0.01 K/cumm TAWNYA Comment:Testing performed by : [address], [address] Blood 09/23/2024 4:27 PM CDT 09/23/2024 4:39 PM CDT us Samuel Bowen MD LAB BLOOD ORDERABLE S Final Result TAWNYA [address] [facility] Department [place] [address] * Comprehensive metabolic panel (09/23/2024 4:27 PM CDT) Sodium 141 135 - 145 mmol/L Comment:Testing performed by : [address] [address] Potassium, pl 3.3 3.3 - 4.9 mmol/L TAWNYA Comment:Testing performed by : [address] [address] Chloride 104 97 - 110 mmol/L TAWNYA Comment:Testing performed by : [address] [address] CO2 22 22 - 32 mmol/L TAWNYA Comment:Testing performed by : [address] [address] Anion gap 15 2 - 15 mmol/L TAWNYA Comment:Testing performed by : [address] [address] BUN 11 6 - 25 mg/dL TAWNYA Comment:Testing performed by : [address] [address] Creatinine 0.89 0.60 - 1.10 mg/dL TAWNYA Comment:Testing performed by : [address] [address] Glucose 153 70 - 199 mg/dL TAWNYA [...] last revised 2022. Testing performed by: [address] [address] Calcium 9.9 8.5 - 10.3 mg/dL TAWNYA Comment:Testing performed by : [address] [address] Bilirubin, total <0.2 0.1 - 1.2 mg/dL TAWNYA Comment:Testing performed by : [address] [address] Protein, pl 8.0 6.5 - 8.5 g/dL TAWNYA Comment:Testing performed by : [address] [address] Albumin 4.6 3.5 - 5.0 g/dL TAWNYA Comment:Testing performed by : [address] [address] Alk phos 84 40 - 130 Units/L TAWNYA Comment:Testing performed by : [address] [address] ALT 42 7 - 45 Units/L TAWNYA Comment:Testing performed by : [address] [address] AST 27 10 - 45 Units/L TAWNYA Comment:Testing performed by : [address] [address] Blood 09/23/2024 4:27 PM CDT 09/23/2024 4:39 PM CDT us Samuel Bowen MD LAB BLOOD ORDERABLE S Final Result TAWNYA [address] [facility] Department [place] [address] * (ABNORMAL) CBC without differential (09/05/2024 4:27 AM STRUCTURAL ARCHITECT) WBC 14.9(H) 3.8 - 9.9 K/cumm Comment:Testing performed by : [address] [place]., [address] Hgb 10.8(L) 11.9 - 15.5 g/dL TAWNYA Comment:Testing performed by : [address] [address] Hct 35.6 35.6 - 45.5 % TAWNYA Comment:Testing performed by : [address] [address] Plt 414(H) 150 - 400 K/cumm TAWNYA Comment:Testing performed by : [address] [address] MPV 9.4 9.1 - 12.3 fL TAWNYA Comment:Testing performed by : [address], [address] RBC 4.35 3.90 - 5.20 M/cumm TAWNYA Comment:Testing performed by : [address] [address] MCV 81.8 81.3 - 96.4 fL TAWNYA Comment:Testing performed by : [address] [address] MCH 24.8(L) 27.1 - 33.3 pg TAWNYA Comment:Testing performed by : [address] [address] MCHC 30.3(L) 32.3 - 35.7 g/dL TAWNYA Comment:Testing performed by : [address], [address] RDW CV 15.4(H) 11.1 - 14.9 % TAWNYA Comment:Testing performed by : [address] [address] RDW SD 46.2 35.7 - 48.1 fL TAWNYA Comment:Testing performed by : [address], [address] NRBC abs 0.00 0.00 - 0.01 K/cumm TAWNYA Comment:Testing performed by : [address], [address] Blood 09/05/2024 4:27 AM STRUCTURAL ARCHITECT 09/05/2024 5:03 AM STRUCTURAL ARCHITECT us Venkat Rudd MD LAB BLOOD ORDERABLES Fi nal Result TAWNYA [address] [facility] Department [place] [address] * (ABNORMAL) CBC without differential (09/04/2024 4:25 AM STRUCTURAL ARCHITECT) WBC 14.5(H) 3.8 - 9.9 K/cumm Comment:Testing performed by : [address] [address] Hgb 10.5(L) 11.9 - 15.5 g/dL TAWNYA Comment:Testing performed by : [address] [address] Hct 35.4(L) 35.6 - 45.5 % TAWNYA Comment:Testing performed by : [address] [address] Plt 392 150 - 400 K/cumm TAWNYA Comment:Testing performed by : [address] [address] MPV 9.2 9.1 - 12.3 fL TAWNYA Comment:Testing performed by : [address] [address] RBC 4.27 3.90 - 5.20 M/cumm TAWNYA Comment:Testing performed by : [address] [address] MCV 82.9 81.3 - 96.4 fL TAWNYA Comment:Testing performed by : [address] [address] MCH 24.6(L) 27.1 - 33.3 pg TAWNYA [place] Comment:Testing performed by : [address] [address] MCHC 29.7(L) 32.3 - 35.7 g/dL ATWNYA Comment:Testing performed by : [address] [address] RDW CV 15.6(H) 11.1 - 14.9 % TAWNYA [place] Comment:Testing performed by : [address] [address] RDW SD 47.6 35.7 - 48.1 fL TAWNYA [place] Comment:Testing performed by : [address] [address] NRBC abs 0.00 0.00 - 0.01 K/cumm TAWNYA [place] Comment:Testing performed by : [address] [address] Blood 09/04/2024 4:25 AM STRUCTURAL ARCHITECT 09/04/2024 4:41 AM STRUCTURAL ARCHITECT us Venkat Rudd MD LAB BLOOD ORDERABLES Fi nal Result Performing Organization Address City/[facility]/ZIP Co de Phone Number TAWNYA [address] [facility] [employer] [place] [address] * Troponin T high-sensitivity 2-hour (09/01/2024 5:11 PM STRUCTURAL ARCHITECT) Trop T hs <6 <=14 ng/L Comment: Interpretive Data For further hscTnT resources including the diagnostic algorithm and an aid in interpretation, copy and paste this link: https://nrl.testcatalog.org/show/hsTrop Current Interpretive Data last revised 2020. Testing performed by: [address] [address] Trop T hs delta 0 ng/L TAWNYA [place] Comment:Testing performed by : [address] [address] Trop T hs interp Insignificant TAWNYA [place] Comment:Testing performed by : [address] [address] Blood 09/01/2024 5:11 PM STRUCTURAL ARCHITECT 09/01/2024 5:14 PM STRUCTURAL ARCHITECT Wil Monteiro MD LAB BLOOD ORDERABLE S Final Result Performing Organization Address City/[facility]/ZIP Co de Phone Number [facility] [address] Department [place] [address] * Urinalysis reflex to microscopic and culture Urine (09/01/2024 4:58 PM STRUCTURAL ARCHITECT) Color, ur Yellow Yellow Comment:Testing performed by : [address] [address] Clarity, ur Clear Clear TAWNYA Comment:Testing performed by : [address] [address] Specific gravity, ur 1.015 1.003 - 1.030 TAWNYA Comment:Testing performed by : [address] [address] pH, urine 7.0 TAWNYA Comment: Interpretive Data U rine pH is affected by diet, medications, systemic acid-base disturbances, and renal tubular function. pH may affect urinary stone formation. For example, urine pH below 6.0 may help reduce the tendency for calcium phosphate stones and pH greater than 6.0 may reduce the tendency for uric acid stone formation. Source: [facility] [employer] Current Interpretive Data was last revised on 2017 Testing performed by: [address] [address] Protein, ur ql Negative Negative TAWNYA Comment:Testing performed by : [address] [address] Glucose, ur ql Negative Negative TAWNYA Comment:Testing performed by : [address] [address] Ketones, ur Negative Negative TAWNYA Comment:Testing performed by : [address] [address] Bilirubin, ur Negative Negative TAWNYA Comment:Testing performed by : [address] [address] Blood, ur Negative Negative TAWNYA Comment:Testing performed by : [address] [address] Urobilinogen, ur <2.0 <2.0 mg/dL TAWNYA Comment:Testing performed by : [address] [address] Nitrite, ur Negative Negative TAWNYA Comment:Testing performed by : [facility], [address] [place] [address]., [address] Leukocyte esterase, ur Negative Negative TAWNYA [place] Comment:Testing performed by : [facility], [address] [place] [address]., [address] UA reflex comment Reflex conditions for microscopic UA and culture not met. TAWNYA [place] Comment:Testing performed by : [facility], [address] [place] [address]., [address] Urine 09/01/2024 4:58 PM STRUCTURAL ARCHITECT 09/01/2024 4:59 PM STRUCTURAL ARCHITECT us Wil Monteiro MD LAB MICROBIOLOGY - GENERAL ORDERABLES Final Result TAWNYA [place] [address] [facility] [place] [address] * XR Chest 1 Vw Portable (09/01/2024 3:05 PM STRUCTURAL ARCHITECT) Anatomical Region Laterality Modality Body, Chest N/A Computed Radiogr aphy 09/01/2024 3:19 PM STRUCTURAL ARCHITECT Narrative 09/01/2024 3:22 PM STRUCTURAL ARCHITECT EXAM DESCRIPTION: XR CHEST 1 VIEW REASON FOR STUDY: allergic reaction Came to ED s/p anaphylactic reaction. Reports ate at [facility] broke out in hives and [...] Robi Arreola M.D. MZ: JEANNETTE Report ID: [id number] Reading Location: [id number] Procedure Note Robi Arreola MD - 09/01/2024 [...] Robi Arreola M.D. MZ: MZ Report ID: [id number] Reading Location: [place] [address] Wil Monteiro MD IMG XR PROCEDURES F inal Result * Troponin T high-sensitivity series (baseline, 2hr, 4hr, 6hr) (09/01/2024 2:59 PM STRUCTURAL ARCHITECT) Trop T hs <6 <=14 ng/L Comment: Interpretive Data For further hscTnT resources including the diagnostic algorithm and an aid in interpretation, copy and paste this link: https://nrl.testcatalog.org/show/hsTrop Current Interpretive Data last revised 2020. Testing performed by: [facility], [address] [place] [address]., [address] Blood 09/01/2024 2:59 PM STRUCTURAL ARCHITECT 09/01/2024 3:03 PM STRUCTURAL ARCHITECT Wil Monteiro MD LAB BLOOD ORDERABLE S Final Result Performing Organization Address [facility] Co de Phone Number TAWNYA [address] [place] [address] * eGFR (09/01/2024 2:59 PM STRUCTURAL ARCHITECT) Pathologist [facility] eGFR >90 >=60 mL/min/1. 73 m2 Comment: [...] reviewed 2021. Testing performed by: [facility], [address] [place] [address]., [address] Blood 09/01/2024 2:59 PM STRUCTURAL ARCHITECT 09/01/2024 3:03 PM STRUCTURAL ARCHITECT us Wil Monteiro MD LAB BLOOD ORDERABLE S Final Result Performing Organization Address [facility] Co de Phone Number TAWNYA [address] Department [place] [address] * (ABNORMAL) Differential, auto (09/01/2024 2:59 PM STRUCTURAL ARCHITECT) Pathologist [facility] Neutrophil abs 14.4(H) 1.5 - 6.5 K/cumm Comment:Testing performed by : [facility], [address] [place] [address], [place]., [address] Imm gran abs 0.2(H) 0.0 - 0.1 K/cumm CERNER Comment:Testing performed by : [facility], [address] [place] [address], [place]., [address] Lymphocyte abs 1.4 0.8 - 3.3 K/cumm CERNER Comment:Testing performed by : [address] [address] Monocyte abs 0.4 0.2 - 0.8 K/cumm [facility] Comment:Testing performed by : [address], [place]., [address] Eosinophil abs 0.0 0.0 - 0.5 K/cumm [facility] Comment:Testing performed by : [address] [address] Basophil abs 0.1 0.0 - 0.1 K/cumm [facility] Comment:Testing performed by : [address] [address] Neutrophil pct 87.3 % [facility] Comment: Interpretive Data Percent cell count reference ranges are not reported, since discordance with absolute values may lead to misinterpretation of CBC data. Current Interpretive Data was last revised on 2017. Testing performed by: [address] [address] Imm gran pct 0.9 % [facility] Comment: Interpretive Data Percent cell count reference ranges are not reported, since discordance with absolute values may lead to misinterpretation of CBC data. Current Interpretive Data was last revised on 2017. Testing performed by: [address] [address] Lymphocyte pct 8.7 % CERNER Comment: Interpretive Data Percent cell count reference ranges are not reported, since discordance with absolute values may lead to misinterpretation of CBC data. Current Interpretive Data was last revised on 2017. Testing performed by: [address] [address] Monocyte pct 2.7 % CERNER Comment: Interpretive Data Percent cell count reference ranges are not reported, since discordance with absolute values may lead to misinterpretation of CBC data. Current Interpretive Data was last revised on 2017. Testing performed by: [address] [address] Eosinophil pct 0.1 % [facility] Comment: Interpretive Data Percent cell count reference ranges are not reported, since discordance with absolute values may lead to misinterpretation of CBC data. Current Interpretive Data was last revised on 2017. Testing performed by: [address] [address] Basophil pct 0.3 % [facility] Comment: Interpretive Data Percent cell count reference ranges are not reported, since discordance with absolute values may lead to misinterpretation of CBC data. Current Interpretive Data was last revised on 2017. Testing performed by: [address] [address] Blood 09/01/2024 2:59 PM STRUCTURAL ARCHITECT 09/01/2024 3:03 PM STRUCTURAL ARCHITECT Wil Monteiro MD LAB BLOOD ORDERABLE S Final Result Performing Organization Address City/[facility]/ZIP Co de Phone Number [address] [place] [address] * Thyroid Function [place] (09/01/2024 2:59 PM STRUCTURAL ARCHITECT) [facility] TSH 0.80 0.30 - 4.20 mcIUnit/mL Comment:Testing performed by : [address] [address] Blood 09/01/2024 2:59 PM STRUCTURAL ARCHITECT 09/01/2024 3:03 PM STRUCTURAL ARCHITECT Wli Monteiro MD LAB BLOOD ORDERABLE S Final Result [address] [place] [address] * (ABNORMAL) CBC with auto differential (09/01/2024 2:59 PM STRUCTURAL ARCHITECT) [facility] WBC 16.5(H) 3.8 - 9.9 K/cumm Comment:Testing performed by : [address], [address] Hgb 11.3(L) 11.9 - 15.5 g/dL TAWNYA Comment:Testing performed by : [address] [address] Hct 36.4 35.6 - 45.5 % TAWNYA Comment:Testing performed by : [address], [address] Plt 465(H) 150 - 400 K/cumm TAWNYA Comment:Testing performed by : [address], [address] MPV 9.0(L) 9.1 - 12.3 fL TAWNYA Comment:Testing performed by : [address], [address] RBC 4.54 3.90 - 5.20 M/cumm TAWNYA Comment:Testing performed by : [address], [address] MCV 80.2(L) 81.3 - 96.4 fL TAWNYA Comment:Testing performed by : [address], [address] MCH 24.9(L) 27.1 - 33.3 pg TAWNYA Comment:Testing performed by : [address], [address] MCHC 31.0(L) 32.3 - 35.7 g/dL TAWNYA Comment:Testing performed by : [address], [address] RDW CV 15.1(H) 11.1 - 14.9 % TAWNYA Comment:Testing performed by : [address], [address] RDW SD 44.1 35.7 - 48.1 fL TAWNAY Comment:Testing performed by : [address], [address] NRBC abs 0.00 0.00 - 0.01 K/cumm TAWNYA Comment:Testing performed by : [address] [address] Blood 09/01/2024 2:59 PM STRUCTURAL ARCHITECT 09/01/2024 3:03 PM STRUCTURAL ARCHITECT Wil Monteiro MD LAB BLOOD ORDERABLE S Final Result Performing Organization Address City/[facility] Co de Phone Number TAWNYA [address] [place] [address] * Magnesium (09/01/2024 2:59 PM STRUCTURAL ARCHITECT) Pathologist [facility] Magnesium 2.0 1.4 - 2.5 mg/dL Comment:Testing performed by : [address] [address] Blood 09/01/2024 2:59 PM STRUCTURAL ARCHITECT 09/01/2024 3:03 PM STRUCTURAL ARCHITECT Wil Monteiro MD LAB BLOOD ORDERABLE S Final Result Performing Organization Address [facility] de Phone Number [address] [address] * Basic metabolic panel (09/01/2024 2:59 PM STRUCTURAL ARCHITECT) Sodium 140 135 - 145 mmol/L Comment:Testing performed by : [address] [address] Potassium, pl 4.0 3.3 - 4.9 mmol/L [facility] Comment:Testing performed by : [address] [address] Chloride 103 97 - 110 mmol/L [facility] Comment:Testing performed by : [address] [address] CO2 23 22 - 32 mmol/L [facility] Comment:Testing performed by : [address] [address] Anion gap 14 2 - 15 mmol/L [facility] Comment:Testing performed by : [address] [address] BUN 17 6 - 25 mg/dL [facility] Comment:Testing performed by : [address] [address] Creatinine 0.68 0.60 - 1.10 mg/dL [facility] Comment:Testing performed by : [address] [address] Glucose 147 70 - 199 mg/dL [facility] [...] last revised 2022. Testing performed by: [address] [address] Calcium 9.3 8.5 - 10.3 mg/dL [facility] Comment:Testing performed by : [address] [address] Blood 09/01/2024 2:59 PM STRUCTURAL ARCHITECT 09/01/2024 3:03 PM STRUCTURAL ARCHITECT Wil Monteiro MD LAB BLOOD ORDERABLE S Final Result [facility] [address] Department [place] [address] * POCT hCG, urine (09/01/2024 2:28 PM STRUCTURAL ARCHITECT) HCG, ur, POC Negative Negative Lot Number [id number] QC Backgroud Clear Acceptable QC Control Line Acceptable Urine 09/01/2024 2:28 PM STRUCTURAL ARCHITECT Wil Monteiro MD POINT OF CARE TEST ORDERABLES Final Result * ECG 12 lead (09/01/2024 1:54 PM STRUCTURAL ARCHITECT) Ventricular Rate EKG/Min 153 BPM [facility] Atrial Rate 153 BPM [facility] TX-Interval (MSEC) 116 ms [facility] QRS-Interval (MSEC) 88 ms [facility] QT-Interval (MSEC) 328 ms [facility] QTc 523 ms [facility] P [place] 57 degrees [facility] R [place] 67 degrees [facility] T [place] 44 degrees [facility] Diagnosis Sinus tachycardia Otherwise normal ECG When compared with ECG of 20-AUG-2024 02:26, T wave inversion no longer evident in Anterior leads Confirmed by LAWRENCE YIP M.D. ([id number]) on 09/02/2024 9:10:53 AM [facility] 09/01/2024 1:54 PM STRUCTURAL ARCHITECT 09/02/2024 9:10 AM STRUCTURAL ARCHITECT Wil Monteiro MD ECG ORDERABLES Fin al Result [facility] [place] * eGFR (08/22/2024 7:57 AM STRUCTURAL ARCHITECT) eGFR >90 >=60 mL/min/1. 73 m2 Comment: [...] last reviewed 2021. Testing performed by: [address] [address] Blood 08/22/2024 7:57 AM STRUCTURAL ARCHITECT 08/22/2024 8:11 AM STRUCTURAL ARCHITECT us José Luis Tripp MD LAB BLOOD ORDERABLES Final Re sult [facility] [address] Department [place] [address] * (ABNORMAL) CBC without differential (08/22/2024 7:57 AM STRUCTURAL ARCHITECT) WBC 11.8(H) 3.8 - 9.9 K/cumm Comment:Testing performed by : [address] [address] Hgb 10.4(L) 11.9 - 15.5 g/dL [facility] Comment:Testing performed by : [address] [address] Hct 33.4(L) 35.6 - 45.5 % [facility] Comment:Testing performed by : [address] [address] Plt 450(H) 150 - 400 K/cumm [facility] Comment:Testing performed by : [address] [address] MPV 9.0(L) 9.1 - 12.3 fL [facility] Comment:Testing performed by : [address] [address] RBC 4.12 3.90 - 5.20 M/cumm [facility] Comment:Testing performed by : [address] [address] MCV 81.1(L) 81.3 - 96.4 fL [facility] Comment:Testing performed by : [address] [address] MCH 25.2(L) 27.1 - 33.3 pg [facility] Comment:Testing performed by : [address] [address] MCHC 31.1(L) 32.3 - 35.7 g/dL [facility] Comment:Testing performed by : [address] [address] RDW CV 15.5(H) 11.1 - 14.9 % [facility] Comment:Testing performed by : [address] [address] RDW SD 45.6 35.7 - 48.1 fL [facility] Comment:Testing performed by : [address] [address] NRBC abs 0.00 0.00 - 0.01 K/cumm [facility] Comment:Testing performed by : [address] [address] Blood 08/22/2024 7:57 AM STRUCTURAL ARCHITECT 08/22/2024 8:11 AM STRUCTURAL ARCHITECT us Jorje Huynh MD LAB BLOOD ORDERABLES Final Result [facility] [address] Department [place] [address] * Basic metabolic panel (08/22/2024 7:57 AM STRUCTURAL ARCHITECT) Sodium 137 135 - 145 mmol/L Comment:Testing performed by : [address] [address] Potassium, pl 3.7 3.3 - 4.9 mmol/L [facility] Comment:Testing performed by : [address] [address] Chloride 103 97 - 110 mmol/L [facility] Comment:Testing performed by : [address] [address] CO2 23 22 - 32 mmol/L [facility] Comment:Testing performed by : [address] [address] Anion gap 11 2 - 15 mmol/L [facility] Comment:Testing performed by : [address] [address] BUN 16 6 - 25 mg/dL [facility] Comment:Testing performed by : [address] [address] Creatinine 0.71 0.60 - 1.10 mg/dL [facility] Comment:Testing performed by : [address] [address] Glucose 102 70 - 199 mg/dL [facility] [...] last revised 2022. Testing performed by: [address] [address] Calcium 9.0 8.5 - 10.3 mg/dL [facility] Comment:Testing performed by : [address] [address] Blood 08/22/2024 7:57 AM STRUCTURAL ARCHITECT 08/22/2024 8:11 AM STRUCTURAL ARCHITECT us José Luis Tripp MD LAB BLOOD ORDERABLES Final Re sult [facility] [address] Department [place] [address] * eGFR (08/21/2024 7:53 AM STRUCTURAL ARCHITECT) eGFR >90 >=60 mL/min/1. 73 m2 Comment: [...] last reviewed 2021. Testing performed by: [address] [address] Blood 08/21/2024 7:53 AM STRUCTURAL ARCHITECT 08/21/2024 8:14 AM STRUCTURAL ARCHITECT us José Luis Tripp MD LAB BLOOD ORDERABLES Final Re sult [facility] [address] Department [place] [address] * (ABNORMAL) CBC without differential (08/21/2024 7:53 AM STRUCTURAL ARCHITECT) WBC 11.9(H) 3.8 - 9.9 K/cumm Comment:Testing performed by : [address] [address] Hgb 11.2(L) 11.9 - 15.5 g/dL [facility] Comment:Testing performed by : [address] [address] Hct 35.2(L) 35.6 - 45.5 % [facility] Comment:Testing performed by : [address] [address] Plt 481(H) 150 - 400 K/cumm [facility] Comment:Testing performed by : [address] [address] MPV 9.0(L) 9.1 - 12.3 fL [facility] Comment:Testing performed by : [address] [address] RBC 4.41 3.90 - 5.20 M/cumm [facility] Comment:Testing performed by : [address] [address] MCV 79.8(L) 81.3 - 96.4 fL [facility] Comment:Testing performed by : [address] [address] MCH 25.4(L) 27.1 - 33.3 pg [facility] Comment:Testing performed by : [address] [address] MCHC 31.8(L) 32.3 - 35.7 g/dL [facility] Comment:Testing performed by : [address] [address] RDW CV 15.6(H) 11.1 - 14.9 % [facility] Comment:Testing performed by : [address] [address] RDW SD 44.8 35.7 - 48.1 fL [facility] Comment:Testing performed by : [address] [address] NRBC abs 0.00 0.00 - 0.01 K/cumm [facility] Comment:Testing performed by : [address] [address] Blood 08/21/2024 7:53 AM STRUCTURAL ARCHITECT 08/21/2024 8:15 AM STRUCTURAL ARCHITECT us Jorje Huynh MD LAB BLOOD ORDERABLES Final Result [facility] [address] Department of Laboratories [place], [place] [id number] * Basic metabolic panel (08/21/2024 7:53 AM STRUCTURAL ARCHITECT) Sodium 139 135 - 145 mmol/L Comment:Testing performed by : [address], [address] Potassium, pl 3.5 3.3 - 4.9 mmol/L [facility] Comment:Testing performed by : [address] [address] Chloride 102 97 - 110 mmol/L [facility] Comment:Testing performed by : [address] [address] CO2 23 22 - 32 mmol/L [facility] Comment:Testing performed by : [address] [address] Anion gap 14 2 - 15 mmol/L [facility] Comment:Testing performed by : [address] [address] BUN 11 6 - 25 mg/dL [facility] Comment:Testing performed by : [address] [address] Creatinine 0.70 0.60 - 1.10 mg/dL [facility] Comment:Testing performed by : [address] [address] Glucose 91 70 - 199 mg/dL [facility] [...] revised 2022. Testing performed by: [facility], [address] [place] [address]., [address] Calcium 9.4 8.5 - 10.3 mg/dL [facility] Comment:Testing performed by : [address] [address] Blood 08/21/2024 7:53 AM STRUCTURAL ARCHITECT 08/21/2024 8:14 AM STRUCTURAL ARCHITECT us José Luis Tripp MD LAB BLOOD ORDERABLES Final Re sult [facility] [address] Department of Laboratories [place], [place] [id number] * TX CLOSED TX TEMPOROMANDIBULAR DISLOCATION 1ST/SBSQ (08/20/2024 1:18 PM STRUCTURAL ARCHITECT) Narrative Abhay Velez MD - 08/20/2024 1:18 PM STRUCTURAL ARCHITECT Abhay Velez MD 08/20/2024 1:33 PM Orthopedic Injury Treatment - Jaw Dislocation Date/Time: 08/20/2024 1:18 PM Performed by: Abhay Velez MD Authorized by: Abhay Velez MD RN Notified of Procedure: yes Informed consent: Risks, benefits, alternatives discussed and patient/indirect sales representative/guardian agrees and accepts Patient's stated [...] Result * Procedural Sedation (08/20/2024 1:18 PM STRUCTURAL ARCHITECT) Narrative Abhay Velez MD - 08/20/2024 1:18 PM STRUCTURAL ARCHITECT Abhay Velez MD 08/20/2024 1:32 PM Procedural Sedation Date/Time: 08/20/2024 1:18 PM Performed by: Abhay Velez MD Authorized by: Abhay Velez MD [place] Protocol: RN Notified of Procedure: yes Informed consent: Risks, benefits, alternatives discussed and patient/indirect sales representative/guardian agrees and accepts Patient's stated [...] Less than 4 Views (08/20/2024 11:41 AM STRUCTURAL ARCHITECT) Anatomical Region Laterality Modality Head and Neck N/A Computed Radiogr aphy 08/20/2024 11:5 5 AM STRUCTURAL ARCHITECT Narrative 08/20/2024 12:02 PM STRUCTURAL ARCHITECT EXAM DESCRIPTION: XR MANDIBLE LESS THAN 4 [...] Rohan Ramos M.D. LB: EDG[facility] Report ID: [id number] Reading Location: [id number] Procedure Note Rohan Ramos MD - 08/20/2024 [...] Rohan Ramos M.D. LB: [place] Report ID: [id number] Reading Location: [place] [address] Jorje Huynh MD IMG XR PROCEDURES Final Re sult * Sepsis Lactate w/ Reflex (08/20/2024 8:24 AM STRUCTURAL ARCHITECT) Sepsis Lactate 1.3 0.7 - 2.0 mmol/L Comment:Testing performed by : [address] [address] Blood 08/20/2024 8:24 AM STRUCTURAL ARCHITECT 08/20/2024 8:29 AM STRUCTURAL ARCHITECT us Erik Westbrook LAB BLOOD ORDERABLES Final Resul t Performing Organization Address [facility] de Phone Number [address] [place] [address] * (ABNORMAL) Sepsis Lactate w/ Reflex (08/20/2024 3:25 AM STRUCTURAL ARCHITECT) Sepsis Lactate 2.6(C) 0.7 - 2.0 mmol/L Comment: Critical Result called to and read back by [email or web address], DATE: 2024-08-20 04:23:15 BY: [email or web address] Testing performed by: [address] [address] Blood 08/20/2024 3:25 AM STRUCTURAL ARCHITECT 08/20/2024 4:00 AM STRUCTURAL ARCHITECT Erik Westbrook LAB BLOOD ORDERABLES Final Resul t Performing Organization Address City/[facility] Co de Phone Number [address] [place] [address] * eGFR (08/20/2024 3:25 AM STRUCTURAL ARCHITECT) eGFR >90 >=60 mL/min/1. 73 m2 Comment: [...] last reviewed 2021. Testing performed by: [address] [address] Blood 08/20/2024 3:25 AM STRUCTURAL ARCHITECT 08/20/2024 4:00 AM STRUCTURAL ARCHITECT us José Luis Tripp MD LAB BLOOD ORDERABLES Final Re sult [facility] [address] Department [place] [address] * (ABNORMAL) CBC without differential (08/20/2024 3:25 AM STRUCTURAL ARCHITECT) Pathologist [facility] WBC 12.4(H) 3.8 - 9.9 K/cumm Comment:Testing performed by : [address] [address] Hgb 10.3(L) 11.9 - 15.5 g/dL [facility] Comment:Testing performed by : [address] [address] Hct 32.7(L) 35.6 - 45.5 % [facility] Comment:Testing performed by : [address] [address] Plt 467(H) 150 - 400 K/cumm [facility] Comment:Testing performed by : [address] [address] MPV 9.1 9.1 - 12.3 fL [facility] Comment:Testing performed by : [address] [address] RBC 4.09 3.90 - 5.20 M/cumm [facility] Comment:Testing performed by : [address] [address] MCV 80.0(L) 81.3 - 96.4 fL [facility] Comment:Testing performed by : [address] [address] MCH 25.2(L) 27.1 - 33.3 pg [facility] Comment:Testing performed by : [address] [address] MCHC 31.5(L) 32.3 - 35.7 g/dL [facility] Comment:Testing performed by : [address] [address] RDW CV 15.1(H) 11.1 - 14.9 % [facility] Comment:Testing performed by : [address] [address] RDW SD 43.8 35.7 - 48.1 fL [facility] Comment:Testing performed by : [address] [address] NRBC abs 0.00 0.00 - 0.01 K/cumm [facility] Comment:Testing performed by : [address] [address] Blood 08/20/2024 3:25 AM STRUCTURAL ARCHITECT 08/20/2024 4:00 AM STRUCTURAL ARCHITECT us José Luis Tripp MD LAB BLOOD ORDERABLES Final Re sult [facility] [address] Department of Laboratories [place], [place] [id number] * (ABNORMAL) Basic metabolic panel (08/20/2024 3:25 AM STRUCTURAL ARCHITECT) Sodium 138 135 - 145 mmol/L Comment:Testing performed by : [address] [address] Potassium, pl 4.4 3.3 - 4.9 mmol/L [facility] Comment: Hemolyzed; Potassium value may be falsely elevated by as much as 1.0 mmol/L. Suggest redraw and reanalysis. Testing performed by: [address], [place]., [address] Chloride 104 97 - 110 mmol/L [facility] Comment:Testing performed by : [address] [address] CO2 20(L) 22 - 32 mmol/L [facility] Comment:Testing performed by : [address] [address] Anion gap 14 2 - 15 mmol/L [facility] Comment:Testing performed by : [address] [address] BUN 8 6 - 25 mg/dL [facility] Comment:Testing performed by : [address], [place]., [address] Creatinine 0.64 0.60 - 1.10 mg/dL [facility] Comment:Testing performed by : [address] [address] Glucose 179 70 - 199 mg/dL [facility] Comment: Interpretive Data Fasting glucose >/= [...] last revised 2022. Testing performed by: [address] [address] Calcium 9.5 8.5 - 10.3 mg/dL [facility] Comment:Testing performed by : [facility], [address] [place] [address]., [address] Blood 08/20/2024 3:25 AM STRUCTURAL ARCHITECT 08/20/2024 4:00 AM STRUCTURAL ARCHITECT us José Luis Tripp MD LAB BLOOD ORDERABLES Final Re sult Performing Organization Address City/[facility]/ZIP Co de Phone Number [facility] [address] Department of Laboratories [place], [place] [id number] * ECG 12 lead (08/20/2024 2:26 AM STRUCTURAL ARCHITECT) Ventricular Rate EKG/Min 148 BPM [facility] Atrial Rate 148 BPM [facility] TX-Interval (MSEC) 114 ms [facility] QRS-Interval (MSEC) 100 ms [facility] QT-Interval (MSEC) 336 ms [facility] QTc 527 ms [facility] P [place] 51 degrees [facility] R [place] 73 degrees [facility] T [place] 35 degrees [facility] Diagnosis Sinus tachycardia Incomplete right bundle branch block Nonspecific T wave abnormality Abnormal ECG When compared with ECG of 19-AUG-2024 20:25, No significant change was found Confirmed by BELIA CHU M.D. ([id number]) on 08/21/2024 5:20:17 AM [facility] 08/20/2024 2:26 AM STRUCTURAL ARCHITECT 08/21/2024 5:20 AM STRUCTURAL ARCHITECT us Jorje Huynh MD ECG ORDERABLES Final Resu lt Performing Organization Address City/[facility]/ZIP Co de Phone Number [facility] * (ABNORMAL) Sepsis Lactate w/ Reflex (08/19/2024 8:52 PM STRUCTURAL ARCHITECT) Sepsis Lactate 2.4(C) 0.7 - 2.0 mmol/L Comment: Critical Result called to and read back by [email or web address], DATE: 2024-08-19 21:21:33 BY: [email or web address] Testing performed by: [facility], [address] [place] [address]., [address] Blood 08/19/2024 8:52 PM STRUCTURAL ARCHITECT 08/19/2024 8:55 PM STRUCTURAL ARCHITECT Erik Westbrook NP LAB BLOOD ORDERABLES Final Resul t [facility] [address] [place] [address] * ECG 12 lead (08/19/2024 8:25 PM STRUCTURAL ARCHITECT) Ventricular Rate EKG/Min 129 BPM [facility] Atrial Rate 129 BPM [facility] TX-Interval (MSEC) 138 ms [facility] QRS-Interval (MSEC) 100 ms [facility] QT-Interval (MSEC) 316 ms [facility] QTc 462 ms [facility] P [place] 55 degrees [facility] R [place] 49 degrees [facility] T [place] 46 degrees [facility] Diagnosis Sinus tachycardia Possible Left atrial enlargement Incomplete right bundle branch block Borderline ECG When compared with ECG of 21-MAY-2024 14:20, No significant change was found Confirmed by ZANE SORTO M.D. ([id number]) on 08/20/2024 11:59:01 PM [facility] 08/19/2024 8:25 PM STRUCTURAL ARCHITECT 08/20/2024 11:59 PM STRUCTURAL ARCHITECT Erik Westbrook NP ECG ORDERABLES Final Result [facility] * eGFR (08/19/2024 8:20 PM STRUCTURAL ARCHITECT) eGFR >90 >=60 mL/min/1. 73 m2 Comment: [...] last reviewed 2021. Testing performed by: [address] [address] Blood 08/19/2024 8:20 PM STRUCTURAL ARCHITECT 08/19/2024 8:24 PM STRUCTURAL ARCHITECT us Erik Westbrook NP LAB BLOOD ORDERABLES Final Resul t [facility] [address] [place] [address] * (ABNORMAL) Differential, auto (08/19/2024 8:20 PM STRUCTURAL ARCHITECT) Neutrophil abs 17.7(H) 1.5 - 6.5 K/cumm Comment:Testing performed by : [address] [address] Imm gran abs 0.1 0.0 - 0.1 K/cumm [facility] Comment:Testing performed by : [address] [address] Lymphocyte abs 0.6(L) 0.8 - 3.3 K/cumm [facility] Comment:Testing performed by : [address] [address] Monocyte abs 0.4 0.2 - 0.8 K/cumm [facility] Comment:Testing performed by : [address] [address] Eosinophil abs 0.0 0.0 - 0.5 K/cumm [facility] Comment:Testing performed by : [address] [address] Basophil abs 0.1 0.0 - 0.1 K/cumm [facility] Comment:Testing performed by : [address] [address] Neutrophil pct 94.0 % [facility] Comment: Interpretive Data Percent cell count reference ranges are not reported, since discordance with absolute values may lead to misinterpretation of CBC data. Current Interpretive Data was last revised on 2017. Testing performed by: [address] [address] Imm gran pct 0.4 % [facility] Comment: Interpretive Data Percent cell count reference ranges are not reported, since discordance with absolute values may lead to misinterpretation of CBC data. Current Interpretive Data was last revised on 2017. Testing performed by: [address] [address] Lymphocyte pct 3.1 % [facility] Comment: Interpretive Data Percent cell count reference ranges are not reported, since discordance with absolute values may lead to misinterpretation of CBC data. Current Interpretive Data was last revised on 2017. Testing performed by: [address] [address] Monocyte pct 2.2 % [facility] Comment: Interpretive Data Percent cell count reference ranges are not reported, since discordance with absolute values may lead to misinterpretation of CBC data. Current Interpretive Data was last revised on 2017. Testing performed by: [address] [address] Eosinophil pct 0.0 % [facility] Comment: Interpretive Data Percent cell count reference ranges are not reported, since discordance with absolute values may lead to misinterpretation of CBC data. Current Interpretive Data was last revised on 2017. Testing performed by: [address] [address] Basophil pct 0.3 % [facility] Comment: Interpretive Data Percent cell count reference ranges are not reported, since discordance with absolute values may lead to misinterpretation of CBC data. Current Interpretive Data was last revised on 2017. Testing performed by: [address] [address] Blood 08/19/2024 8:2 0 PM STRUCTURAL ARCHITECT 08/19/2024 8:24 PM STRUCTURAL ARCHITECT Erik Westbrook [employer] LAB BLOOD ORDERABLES Final Resul t [facility] [address] [place] [address] * (ABNORMAL) CBC with auto differential (08/19/2024 8:20 PM STRUCTURAL ARCHITECT) WBC 18.8(H) 3.8 - 9.9 K/cumm Comment:Testing performed by : [address] [address] Hgb 10.7(L) 11.9 - 15.5 g/dL [facility] Comment:Testing performed by : [address] [address] Hct 33.3(L) 35.6 - 45.5 % [facility] Comment:Testing performed by : [address] [address] Plt 502(H) 150 - 400 K/cumm [facility] Comment:Testing performed by : [address] [address] MPV 8.9(L) 9.1 - 12.3 fL [facility] Comment:Testing performed by : [address] [address] RBC 4.21 3.90 - 5.20 M/cumm [facility] Comment:Testing performed by : [address] [address] MCV 79.1(L) 81.3 - 96.4 fL [facility] Comment:Testing performed by : [address] [address] MCH 25.4(L) 27.1 - 33.3 pg [facility] Comment:Testing performed by : [address] [address] MCHC 32.1(L) 32.3 - 35.7 g/dL [facility] Comment:Testing performed by : [address] [address] RDW CV 14.9 11.1 - 14.9 % [facility] Comment:Testing performed by : [address] [address] RDW SD 43.0 35.7 - 48.1 fL [facility] Comment:Testing performed by : [address] [address] NRBC abs 0.00 0.00 - 0.01 K/cumm [facility] Comment:Testing performed by : [address] [address] Blood 08/19/2024 8:20 PM STRUCTURAL ARCHITECT 08/19/2024 8:24 PM STRUCTURAL ARCHITECT us Erik Westbrook [employer] LAB BLOOD ORDERABLES Final Resul t [facility] [address] [place] [address] Department [place] [address] * Comprehensive metabolic panel (08/19/2024 8:20 PM STRUCTURAL ARCHITECT) Sodium 140 135 - 145 mmol/L Comment:Testing performed by : [address] [address] Potassium, pl 3.5 3.3 - 4.9 mmol/L [facility] Comment:Testing performed by : [address] [address] Chloride 104 97 - 110 mmol/L [facility] Comment:Testing performed by : [address] [address] CO2 23 22 - 32 mmol/L [facility] Comment:Testing performed by : [address] [address] Anion gap 13 2 - 15 mmol/L [facility] Comment:Testing performed by : [address] [address] BUN 11 6 - 25 mg/dL [facility] Comment:Testing performed by : [address] [address] Creatinine 0.71 0.60 - 1.10 mg/dL [facility] Comment:Testing performed by : [address] [address] Glucose 136 70 - 199 mg/dL [facility] Comment: [...] last revised 2022. Testing performed by: [address] [address] Calcium 9.2 8.5 - 10.3 mg/dL [facility] Comment:Testing performed by : [address] [address] Bilirubin, total <0.2 0.1 - 1.2 mg/dL [facility] Comment:Testing performed by : [address] [address] Protein, pl 7.5 6.5 - 8.5 g/dL [facility] Comment:Testing performed by : [address] [address] Albumin 4.4 3.5 - 5.0 g/dL [facility] Comment:Testing performed by : [address] [address] Alk phos 74 40 - 130 Units/L [facility] Comment:Testing performed by : [address] [address] ALT 29 7 - 45 Units/L [facility] Comment:Testing performed by : [address] [address] AST 19 10 - 45 Units/L [facility] Comment:Testing performed by : [address] [address] Blood 08/19/2024 8:20 PM STRUCTURAL ARCHITECT 08/19/2024 8:24 PM STRUCTURAL ARCHITECT Erik Westbrook NP LAB BLOOD ORDERABLES Final Resul t [facility] [address] [facility] [facility] [place] [address] * Critical Care (08/19/2024 5:13 PM STRUCTURAL ARCHITECT) Narrative Erik Westbrook NP - 08/19/2024 5:13 PM STRUCTURAL ARCHITECT Erik Westbrook NP 08/19/2024 9:10 PM Critical [...] Final Result from Last 3 Months Insurance ExtraFootie OPEN ACCESS [facility] CHOICE PLUS [facility] CHOICE PLUS Advance Directives For more information, please contact: [phone] * Full Code (Latest Code Status on File) Date Activated Date Inactivated Comments 09/23/2024 7:38 PM 09/24/2024 5:41 PM * Full Code Date Activated Date Inactivated Comments 09/01/2024 7:30 PM 09/05/2024 3:39 PM * Full Code Date Activated Date Inactivated Comments 08/19/2024 9:45 PM 08/22/2024 5:15 PM 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
--- NOTE | 2024-09-30 17:19 | ED.ALLEREA ---
HPI - Allergic Reaction General Chief complaint: Allergic Reaction Stated complaint: allergic reaction Time Seen by Provider: 09/30/24 17:10 Source: patient Mode of arrival: ambulatory Limitations: no limitations History of Present Illness HPI narrative: This is a 34-year-old female that presents to the emergency department for allergic reaction. Reports history of anaphylaxis, mast cell activation syndrome, reports she is currently in a flare. She has been having trouble with feeling some of swelling in the throat, itching, rash, wheezing. Reports she is currently out of her EpiPen. She did have an appointment with her sales consulting director today, they are trying to change up her medications. Related Data Home Medications ?Medication ?Instructions ?Recorded ?Confirmed ?Last Taken ?Type epinephrine 0.3 mg/0.3 mL 0.3 mg IM ONCE PRN Allergic 05/30/23 08/26/24 Unknown History injection, auto-injector Reaction famotidine 40 mg tablet 40 mg PO DAILY 05/30/23 08/26/24 Unknown History drospirenone 3 mg-ethinyl 1 tablet PO DAILY 08/08/24 08/26/24 Unknown History estradiol 0.03 mg tablet (Dana (28)) Allergies Allergy/AdvReac Type Severity Reaction Status Date / Time peanut Allergy Severe Anaphylaxis, Verified 09/30/24 15:37 HIVES tree nut Allergy Severe Anaphylaxis Verified 09/30/24 15:37 hydromorphone Allergy Intermediate Hives / Verified 09/30/24 15:37 Red Face clarithromycin Allergy Mild N/V Verified 09/30/24 15:37 hydrocodone Allergy Mild Itching Verified 09/30/24 15:37 meperidine Allergy Mild Nausea and Verified 09/30/24 15:37 Vomiting azithromycin Allergy Unknown N/V, Verified 09/30/24 15:37 DIARRHEA, ABD CRAMPING. duloxetine Allergy Unknown BULGING Verified 09/30/24 15:37 EYES ondansetron Allergy Unknown PROLONGED Verified 09/30/24 15:37 QT lorazepam AdvReac Irritable Verified 09/30/24 15:37 ENERGY DRINKS Allergy Mild ORAL Uncoded 09/30/24 15:37 SWELLING [place] Allergy Mild ORAL Uncoded 09/30/24 15:37 SWELLING Review of Systems Review of Systems: CONSTITUTIONAL: Denies fever CARDIOVASCULAR: Denies chest pain RESPIRATORY: Reports dyspnea. GASTROINTESTINAL: Denies abdominal pain, nausea, vomiting All systems reviewed & are unremarkable except as noted in HPI and below PMFSH Past Medical History Medical History GERD (gastroesophageal reflux disease) Chronic constipation Early satiety Nausea and vomiting Mast cell activation syndrome Dislocation of toe of right foot Anxiety Idiopathic anaphylaxis 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 Code status: Full code. Smoking status: Never smoker Second hand tobacco smoke exposure: No Alcohol intake: current Drinks per week: 1 Alcohol use details: VERY RARE Substance use: never Substance use type: does not use Lack of Transportation: No Lack of Food: Never True Current Housing: I Have Housing Concerned About Future Housing: No Difficulty Paying Gas/Electric Bills: No Difficulty Paying for Meds: No Currently Unemployed: No Education: High School Diploma/GED Difficulty w/ Childcare or Family Care: No Living arrangements: with family Additional living arrangements comments: Lives in [place] with her . No children. She is adopted. 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 Gender identity (if verbalized by the patient): Female Sexual Orientation (if Verbalized by the Patient): Straight or Heterosexual Spiritual care concerns: No Exam Narrative: GENERAL: Well-appearing, well-nourished, and in no acute distress. HEAD: Normocephalic, atraumatic. EYES: EOMI. ENT: Nares clear, no rhinorrhea or epistaxis. Mucous membranes moist. Oropharynx without tonsillar hypertrophy exudate or other lesions. No swelling noted NECK: Supple. No adenopathy or masses. CHEST: Clear to auscultation. No respiratory distress. No wheezes rales or rhonchi HEART: Regular rate and rhythm. No murmur heard. Normal peripheral pulses. EXTREMITIES: Normal range of motion. No edema. SKIN: Warm, dry. Mild redness over the chest NEURO: No focal deficits. Alert and oriented x3. PSYCH: Normal mood and affect Course Course Emergency Course: patient reports feeling much better, ready for discharge Vital Signs Vital signs: Vital Signs Temperature 97.8 F 09/30/24 15:31 Pulse Rate 131 H 09/30/24 15:31 Respiratory Rate 17 09/30/24 15:31 Blood Pressure 171/111 H 09/30/24 15:31 Pulse Oximetry 99 09/30/24 15:31 Temperature 98.5 F 09/30/24 19:18 Pulse Rate 117 H 09/30/24 20:06 Respiratory Rate 20 09/30/24 20:06 Blood Pressure 146/91 H 09/30/24 20:06 Pulse Oximetry 97 09/30/24 20:06 Oxygen Delivery Room Air 09/30/24 17:56 MDM - Allergic Reaction MDM Narrative Medical decision making narrative: Presents to the emergency department for allergic reaction. Reports history of anaphylaxis, mast cell activation syndrome, reports she is currently in a flare. Patient tachycardic and hypertensive upon arrival, this improved after management. Patient given antihistamines, steroid, epi. patient reports feeling much better, ready for discharge. Instructed to have further follow-up with her sales consulting director Differential Diagnosis Differential diagnosis: Likely anaphylaxis, allergic reaction, angioedema, contact dermatitis, adverse reaction to drug and urticaria Critical Care Time Critical Care Time Critical Care Time: No Discharge Plan Discharge Clinical Impression: Idiopathic anaphylaxis Qualifiers: Encounter type: subsequent encounter Qualified Code(s): T78.2XXD - Anaphylactic shock, unspecified, subsequent encounter Patient Disposition: Home, Self-Care Condition: Improved Instructions: Anaphylaxis (ED), Allergies (ED) Additional Instructions: Return to the emergency department if you experience fever, difficulty breathing, trouble swallowing, or any other symptoms that are concerning to you Take a Pepcid and Zyrtec daily. Benadryl as needed for severe itching. Follow-up with your sales consulting director Patient Language: French Prescriptions: No Action drospirenone-ethinyl estradiol [Dana (28)] 3-0.03 mg tablet 1 tablet PO DAILY albuterol sulfate 90 mcg/actuation HFA aerosol inhaler 1 inh inhalation Q4H PRN (Reason: shortness of breath or wheezing) Qty: 8.5 0RF budesonide 90 mcg/actuation aerosol powdr breath activated 1 inh inhalation Q12H Qty: 1 0RF prednisone 50 mg tablet 50 mg PO DAILY Qty: 5 0RF epinephrine 0.3 mg/0.3 mL auto-injector 0.3 mg IM ONCE PRN (Reason: Allergic Reaction) Rx Instructions: as a single dose; may repeat once famotidine 40 mg tablet 40 mg PO DAILY cyclobenzaprine 10 mg tablet 10 mg PO TID PRN (Reason: muscle spasm) Qty: 30 0RF tramadol 50 mg tablet 50 mg PO Q6H PRN (Reason: pain) Qty: 21 0RF triamcinolone acetonide 0.1 % paste See Rx Instructions .ROUTE .COMPLEX Qty: 5 1RF Dose Instruction: APPLY TO DENTAL AREA AT BEDTIME, AFTER FOOD, DRINK OR ORAL HYGIENE Rx Instructions: APPLY TO DENTAL AREA AT BEDTIME, AFTER FOOD, DRINK OR ORAL HYGIENE metoclopramide HCl 10 mg tablet See Rx Instructions .ROUTE .COMPLEX Qty: 60 3RF Dose Instruction: TAKE 1 TABLET BY MOUTH TWICE DAILY NEEDED FOR NAUSEA OR VOMITING Rx Instructions: TAKE 1 TABLET BY MOUTH TWICE DAILY NEEDED FOR NAUSEA OR VOMITING diazepam 5 mg tablet 5 mg PO BID PRN (Reason: anxiety) Qty: 60 0RF trazodone 50 mg tablet 50 mg PO QHS PRN (Reason: Sleep) Qty: 90 1RF prochlorperazine maleate 10 mg tablet See Rx Instructions .ROUTE .COMPLEX Qty: 90 0RF Dose Instruction: TAKE 1 TABLET BY MOUTH EVERY 6 HOURS NEEDED FOR NAUSEA OR VOMITING Rx Instructions: TAKE 1 TABLET BY MOUTH EVERY 6 HOURS NEEDED FOR NAUSEA OR VOMITING Follow-up/Referrals: Shannan Maldonado MD [Primary Care Provider] -
--- OUTSIDE RECORDS SUMMARY | 2024-09-30 17:50 | XMS_ITS | Continuity of Care Document ---
Author Organization [facility] Address [address] [facility] [address] [place] [address] Phone Care Team Providers Care Radiology Transporter Name Role Phone No Information Unavailable Unavailable Advance Directives Directive Yes / No Effective Date File Name No Information Encounters Encounter Description Practice Location Reason(s) For Visit Diagnoses Date Provider Providers Copied on Encounter [facility], [address] [facility] [address], [place], [place], [id number], [place] tel:[phone] [facility] No Information No Information [...]
--- OUTSIDE RECORDS SUMMARY | 2024-09-30 17:50 | XMS_ITS | Clinical Summary ---
Author Organization [facility] [employer] Address [address] [place] [address] Care Team Providers Care Intervention Manager Name Role Phone Shannan Maldonado MD Primary Care Provider [phone] Source Comments [facility] [employer],non[facility] [facility] Affiliates and Associated Physician Practices is amultiple site organization consisting of ambulatory clinics and hospital sitesin [place], [place], [place] and [place]. This disclosure is being madepursuant to the Care Everywhere program and may not contain all information available regarding this patient. Last updated 18.[facility] [employer] Allergies Active Allergy Reactions Criticality Noted Date [...] fluticasone propionate (FLONASE) 50 MCG/ACT nasal spray [place] 2 sprays into each nostril once daily [...] 06/13/2019 Assessment & Plan (06/13/2019 10:22 AM INSIDE ACCOUNT REPRESENTATIVE): POTS patients commonly have mast cell disorders. [...] 2015 Assessment & Plan (06/13/2019 10:19 AM INSIDE ACCOUNT REPRESENTATIVE): Would avoid high osmotic salt loads/salt tablets. Ok to just liberalize salt intake and eat banannas for potassium Postural orthostatic tachycardia syndrome 2015 Assessment & Plan (09/05/2019 10:06 AM INSIDE ACCOUNT REPRESENTATIVE): Her symptoms are well-controlled today. She dislocated [...] intake. Assessment & Plan (06/13/2019 10:47 AM INSIDE ACCOUNT REPRESENTATIVE): Postural orthostatic tachycardia syndrome (POTS) is a [...] 05/21/2010 Assessment & Plan (09/05/2019 10:07 AM INSIDE ACCOUNT REPRESENTATIVE): She had a routine screening echo today. Her aortic root today does not appear dilated by my view. Will await final read and call her if this is abnormal. Otherwise, q2yr echo. Assessment & Plan (06/13/2019 10:18 AM INSIDE ACCOUNT REPRESENTATIVE): The patient was diagnosed with EDS several [...] Comments Blood Pressure 122/90 09/05/2019 9:40 AM INSIDE ACCOUNT REPRESENTATIVE Pulse 112 09/05/2019 9:40 AM INSIDE ACCOUNT REPRESENTATIVE Temperature 36.8 C (98.2 F) 03/02/2019 7:52 AM CDT Respiratory Rate 18 03/02/2019 7:52 AM CDT Oxygen Saturation 99% 06/13/2019 8:42 AM INSIDE ACCOUNT REPRESENTATIVE Inhaled Oxygen Concentration - - Weight 63.5 kg (140 lb) 09/05/2019 8:22 AM INSIDE ACCOUNT REPRESENTATIVE Height 170.2 cm (5' 7 ) 09/05/2019 8:22 AM INSIDE ACCOUNT REPRESENTATIVE Body Mass Index 21.93 09/05/2019 8:22 AM INSIDE ACCOUNT REPRESENTATIVE Plan of Treatment Upcoming Encounters Date Type Department Care Team (Late st Contact Info) Description 11/08/2024 3:40 PM CDT Office Visit [facility] - Cardiology [address], [facility] [address] [place] [address] Javed Julio MD [address] [place] [address] Health Maintenance Due Date Last [...] ve Non-react hayder 02/28/2019 4:05 PM CDT [facility] Comment: Neither HIV-1 p24 Antigen nor HIV-1/HIV-2 Antibodies are detected. Blood BLOOD SPECIMEN / Unknown Venipuncture / Unknown 02/28/2019 1:57 PM CDT 02/28/2019 3:22 PM CDT Abel Barrientos MD LAB - HEMATOLOGY ORD ERABLES [address] [phone] from Last 3 Months or Most Recently Relevant to Health Maintenance Advance Directives * Full Code (Latest Code Status on File) Date Activated Date Inactivated Comments 02/28/2019 11:41 PM 03/02/2019 12:34 PM * Full Code Date Activated Date Inactivated Comments 02/28/2019 8:46 PM 02/28/2019 11:41 PM Care Teams Intervention Manager Relationship Specialty Start Date End Date Shannan Maldonado MD [address] [place] [address] PCP - General Family Medicine 03/22/16
--- OUTSIDE RECORDS SUMMARY | 2024-09-30 17:50 | XMS_ITS | Clinical Summary ---
Author Organization [facility] Address [address] [place] [address] Care Team Providers Care Enrober Name Role Phone Shannan Maldonado MD Primary Care Provider [phone] Celio Jacques MD Unavailable Allergies Active Allergy [...] this topic Medical Devices Implanted Type Area Chargeback Specialist Device Identifier Shelf Expiration Date Model / Serial / Lot Staple Bone [id number] m 2m - [id number] Implanted:Qty: 1 on 02/16/2024 by Pranay Dejesus DPM at [facility] Sheila[employer]ANG Edwards Right: Foot [employer]STELLE 06/01/2027 [id number] / / [id number] Wire Ba .045in 4in - [id number] Implanted:Qty: 1 on 03/17/2023 by Pranay Dejesus DPM at [facility] Monique Right: Toe [employer] [id number] / / Description:Right second toe Insurance [facility] Care Teams Enrober Relationship Specialty Start Date End Date Shannan Maldonado MD PCP - General 05/06/16 Celio Jacques MD [address] [facility] [address] [place] [address] CARDIOLOGY 03/14/23
--- OUTSIDE RECORDS SUMMARY | 2024-09-30 17:50 | XMS_ITS | Continuity of Care Document ---
Author Organization [facility] Address [address] [place] [address] Phone Care Team Providers Care Mannequin Molder Name Role Phone Manuel Anthony MD Unavailable [...] Diagnoses Date Provider Providers Copied on Encounter [facility], [address], [place], [place], [id number] , [place] tel: [phone] [facility] No Information 2 Gabrielle Jackson. [address] , [place], [place], [id number] , [place]. tel: [phone] Referring Provider: Lazarus Blandon, [address], [place], [address]. tel:[phone] [facility], [address], [place], [place], [id number] , [place] tel: [phone] [facility] No Information [address] [place] [address], [id number] , [place]. tel: [phone] [facility], [address], [place], [place], [address] , [place] tel: [phone] [facility] Abdominal pain, unspecified abdominal locationGastroesop hageal reflux disease without esophagitisFlatule nce symptomIrritable bowel syndrome without diarrhea 6 Aida Nava. [address] [facility], [address], [place], [place], [id number] , [place]. tel: [phone] Referring Provider: Shannan Maldonado, [address], [place], [address]. tel:[phone] [facility], [address], [place], [place], [address] , [place] tel: [phone] [facility] No Information 5 Lawson Cai. [address], [id number] , [place]. tel: [phone] [facility], [address], [place], [place], [id number] , [place] tel: [phone] [facility] Anaphylaxis, initial encounter Lawson Cai. [address], [id number] , [place]. tel: [phone] [facility], [address], [place], [place], [address] , tel: [phone] [facility] Anaphylaxis, initial encounter Lawson Cai. [address], [id number] , [place]. tel: [phone] [facility], [address], [place], [place], [address] , tel: [phone] [facility] Anaphylaxis, initial encounter Lawson Cai. [address], [id number] , [place]. tel: [phone] Referring Provider: Shannan Maldonado [address] [place], [address]. tel:[phone] Family History Family Member Type Diagnosis Age At Onset No Information Payers Payer name Insurance type Covered green party ID Herminia cervantes(s) SANYA PASTRANA CI [id number] Social History Type Description Quantity Date Captured [...]
--- OUTSIDE RECORDS SUMMARY | 2024-09-30 17:50 | XMS_ITS | Patient Health Record ---
Author Organization [facility] Address [address] [place] [address] Care Team Providers Care Underwriting Clerks Supervisor Name Role Phone Shannan Maldonado Primary Care Provider UnavailRomy Razo Unavailable [phone] Megan Alvarado Unavailable [phone] [employer], Provider Unavailable Unavailab le Allergies Allergen [...] W/U Status Risk Notes Problem Idiopathic urticaria (62046491) Idiopathic urticaria (L50.1) Active confirmed Problem Anemia (504213163) Anemia, unspecified (D64.9) Active confirmed Problem Chronic allergic conjunctivitis (01998137) Other chronic allergic conjunctivitis (H10.45) Active confirmed Problem Allergic rhinitis caused by pollen (disorder) (34868785) Allergic rhinitis due to pollen (J30.1) Active confirmed Problem Allergic rhinitis (16401160) Other allergic rhinitis (J30.89) Active confirmed Problem Chronic sinusitis (07845962) Chronic sinusitis, unspecified (J32.9) Active confirmed Problem Mild intermittent asthma (533640832) Mild intermittent asthma, uncomplicated (J45.20) Active confirmed Problem 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 confirmed Problem Angioneurotic edema (95708233) Angioneurotic edema, subsequent encounter (T78.3XXD) Active confirmed Problem Allergy status t o narcotic agent status (Z88.5) Active confirmed Problem Food allergy (791970040) Allergy to other foods (Z91.018) Active confirmed Problem Allergic rhinitis caused by animal hair and dander (603082907808421) Allergic rhinitis due to animal (cat) (dog) hair and dander (J30.81) Active confirmed Problem Angioneurotic edema (05261230) Angioneurotic edema, initial encounter (T78.3XXA) Active confirmed Problem Urticaria (080248220) Other Urticaria (L50.8) Active confirmed Vital Signs Oximetry 100 % 09/11/2024 Blood pressure diastolic 88 mm Hg 09/11/2024 Height 67 in 09/11/2024 Blood pressure systolic 144 mm Hg 09/11/2024 Weight 201.8 lbs 09/11/2024 BMI 31.6 kg/m2 09/11/2024 Encounters Encounter Location Date Provider Diagnosis [address] [address] 12/16/2023 Provider Elida [address] [address] 10/11/2023 Romy Dinesh Idiopathic urticaria L50.1 ; [...] asthma, uncomplicated J45.20 and Anemia, unspecified D64.9 [facility] [address] [place] [address] 10/25/2023 Romy Dinesh Other Urticaria L50. [address] [address] 11/08/2023 Romy Dinesh Other Urticaria L50. [address] [address] 11/22/2023 Romy Dinesh Other Urticaria L50. [address] [address] 12/06/2023 Romy Dinesh Other Urticaria L50. 8 [facility] [address] [place] [address] 12/20/2023 Romy Dinesh Other Urticaria L50. 8 [facility] [address] [place] [address] 01/03/2024 Romy Dinesh Other Urticaria L50. 8 [facility] [address] [place] [address] 01/17/2024 Romy Dinesh Other Urticaria L50. 8 [facility] [address] [place] [address] 01/31/2024 Romy Dinesh Other Urticaria L50. 8 [facility] [address] [place] [address] 02/14/2024 Romy Dinesh Other Urticaria L50. 8 [facility] [address] [place] [address] 02/28/2024 Romy Dinesh Other Urticaria L50. 8 [facility] [employer] [address] [place] [address] 03/13/2024 Romy Dinesh Other Urticaria L50. 8 [facility] [address] [place] [address] 03/27/2024 Romy Dinesh Other Urticaria L50. 8 [facility] [address] [place] [address] 04/10/2024 Romy Dinesh Other Urticaria L50. 8 [facility] [address] [place] [address] 04/24/2024 Romy Dinesh Other Urticaria L50. 8 [facility] [address] [place] [address] 05/08/2024 Romy Dinesh Other Urticaria L50. 8 [facility] [address] [place] [address] 05/22/2024 Romy Dinesh Idiopathic urticaria L50.1 ; [...] Z88.5 and Mild intermittent asthma, uncomplicated J45.20 [facility] [address] [place], [place] [address] [address] [address] 06/05/2024 Romy Dinesh Other Urticaria L50. [address] [place] [address] [address] 06/19/2024 Romy Dinesh Other Urticaria L50. [address] [place] [address] [address] 07/10/2024 Romy Dinesh Other Urticaria L50. 8 [address] [address] [address] 07/24/2024 Romy Dinesh Other Urticaria L50. 8 [address] [address] [address] 08/07/2024 Romy Dinesh Other Urticaria L50. 8 [address] [address] [address] 08/27/2024 Romy Dinesh Idiopathic urticaria L50.1 ; [...] Z88.5 and Mild intermittent asthma, uncomplicated J45.20 [facility] [address] [place], [place] [address] [address] 09/11/2024 Romy Montiel Idiopathic urticaria L50.1 ; [...] Z88.5 and Mild intermittent asthma, uncomplicated J45.20 [facility] [address] [place] [address] 10/16/2023 Romy Montiel [address] [address] 10/23/2023 Romy Montiel Idiopathic urticaria L50.1 [facility] [address] [place] [address] 12/06/2023 Romy Montiel [facility] [address] [place] [address] 01/10/2024 Romy Montiel [facility] [address] [place] [address] 05/02/2024 Romy Montiel Idiopathic urticaria L50.1 [facility] [address] [place] [address] 05/24/2024 Romy Montiel [address] [address] 06/19/2024 Romy Montiel [facility] [address] [place] [address] 06/25/2024 Romy Montiel [facility] [address] [place] [address] 07/31/2024 Romy Montiel [address] [address] 08/05/2024 Romy Montiel [facility] [address] [facility] [address] [place] [address] 08/05/2024 Romy Montiel [facility] [address] [facility] [address] [place] [address] 08/21/2024 Romy Montiel [facility] [address] [facility] [address] [place] [address] 08/26/2024 Romyelicia Montiel [facility] [address] [place] [address] 09/09/2024 Romy Montiel [facility] [address] [place] [address] 09/17/2024 Romyelicia Montiel Assessments Encounter Date Diagnosis (ICD Code) Assessment Notes Treatment Notes Treatment Clinical Notes Section Notes 10/11/2023 Idiopathic urticaria (ICD-10 - L50.1) 10/11/2023 [...] in the office. Continue Xolair q2 weeks. 10/23/2023 Idiopathic urticaria (ICD-10 - L50.1) 10/25/2023 Other Urticaria (ICD-10 - L50.8) 11/08/2023 Other Urticaria (ICD-10 - L50.8) 11/22/2023 Other Urticaria (ICD-10 - L50.8) 12/06/2023 Other Urticaria (ICD-10 - L50.8) 12/20/2023 Other Urticaria (ICD-10 - L50.8) 01/03/2024 Other Urticaria (ICD-10 - L50.8) 01/17/2024 Other Urticaria (ICD-10 - L50.8) 01/31/2024 Other [...] from Dr. Suarez. Needs to f/u with Senior Accountant Cpa or PCP due to fainting episodes 06/05/2024 Other Urticaria (ICD-10 - L50.8) 06/19/2024 [...] evaluation normal and normal response to vaccines 10/11/2023 Chronic sinusitis, unspecified (ICD-10 - J32.9) History of chronic sinusitis requiring antibiotics 5 times a year. Immunodeficiency evaluation normal and normal response to vaccines 10/11/2023 Allergic rhinitis due to pollen (ICD-10 [...] if needed. 08/27/2024 Allergic rhinitis due to animal (cat) (dog) hair and dander (ICD-10 - J30.81) 05/22/2024 Allergic rhinitis due to animal (cat) (dog) hair and dander (ICD-10 - J30.81) 09/11/2024 Allergic rhinitis due to animal (cat) (dog) hair and dander (ICD-10 - J30.81) 10/11/2023 Allergic rhinitis due to animal (cat) (dog) hair and dander (ICD-10 - J30.81) 10/11/2023 Other allergic rhinitis (ICD-10 - J30.89) 05/22/2024 [...] medications including intraocular antihistamine/mast cell stabilizer, PRN 10/11/2023 Other chronic allergic conjunctivitis (ICD-10 - [...] medications including intraocular antihistamine/mast cell stabilizer, PRN 10/11/2023 Allergy to other foods (ICD-10 - Z91.018) skin testing to all food was negative at prior visit. Episodes do not appear to be food related 05/22/2024 Allergy to other foods (ICD-10 - Z91.018) skin testing to all food was negative at prior visit. Episodes do not appear to be food related 08/27/2024 Allergy to other foods (ICD-10 - Z91.018) skin testing to all food was negative at prior visit. Episodes do not appear to be food related 09/11/2024 Allergy to other foods (ICD-10 - Z91.018) skin testing to all food was negative at prior visit. Episodes do not appear to be food related 08/27/2024 Allergy status to narcotic agent status [...] Avoid for now since tolerates Fentanyl. 10/11/2023 Mild intermittent asthma, uncomplicated (ICD-10 - [...] is now taking iron supplements 08/21/2024 Other 10/25/2023 Other 11/08/2023 Other 11/22/2023 Other [...] Provider Name:Romy archer, 10/02/2024 02:45:00 PM, [address], [address], [place], [address], Insurance Providers Payer Name Payer Address Payer Phone Subscriber Number Group Number Insured Name Patient Relationship to Insured Coverage Start Date Coverage End Date Cigna [address] [place] [address] [id number] Anson Koenig Spouse - patient is the spouse of the insured 4 [employer] [facility] e [address] [place] [address] [id number] Anson Koenig Spouse - patient is the spouse of the insured 5 [employer] [address] [place] [phone] [id number] Rosangela Koenig Self - patient is the [...] Surgical History Surgery Date(Month/Year) Muscle Biopsy 10/17/2006 [place] Teeth Removal 2008 D&C 2008 Medial Patella Femoral Ligament Reconstr uction 11/06/2009 Tonsillectomy 10/2010 Tarsal Tunnal Release 2016 foot surgery for toe dislocation (right foot) 12/2021 screw right great toe replaced and pin p ut in second right toe 04/2023 Hospitalization History Reason Date(Month/Year) anaphylaxis 10/12/22 anaphylaxis 09/08/2022 Epistaxis 06/28/22 Urticaria and Angioedema October 2021
--- NOTE | 2024-09-30 18:01 | PC.NURSE ---
medications are late due to the pt being a difficult stick and unable to get an IV
[2024-09-30] MEDS: IPRATROPIUM 0.5 MG/ALBUTEROL SULFATE 2.5 MG AMPUL.NEB 3 ML INHALATION (18:15)
[2024-09-30] MEDS: methylPREDNISolone SOD SUCC 125 MG VIAL IV PUSH (18:22)
[2024-09-30] MEDS: diphenhydrAMINE HCl INJ 50 MG/ML VIAL 25 MG IV PUSH ×2 (18:24→19:47)
[2024-09-30] MEDS: FAMOTIDINE 20 MG/2 ML VIAL IV PUSH (18:24)
[2024-09-30] MEDS: EPINEPHrine HCL INJ 1 MG/ML AMPUL 0.3 MG IM (19:47)
== END 2024-09-30 20:56 | disposition home or self-care (01) ==
PROVIDERS: Emergency Provider Physician Assistant; PCP Family Medicine
DX: T78.2XXA Anaphylactic shock, unspecified, initial encounter (principal); G90.A Postural orthostatic tachycardia syndrome [POTS]; D89.40 Mast cell activation, unspecified; K21.9 Gastro-esophageal reflux disease without esophagitis; K58.1 Irritable bowel syndrome with constipation; F41.9 Anxiety disorder, unspecified; Q79.60 Ehlers-Danlos syndrome, unspecified; Z79.899 Other long term (current) drug therapy
CPT/HCPCS: 94640; 96372; 96374; 96375; 99284; J0171; J1200; J2919

== ENCOUNTER 2024-10-02 23:31 | Emergency (ER) | payer OTHER, SELFPAY ==
[2024-10-02 23:34] VITALS: BP 142/107; PULSE 135; RESP 15; TEMP 36.6; O2SAT 98
--- OUTSIDE RECORDS SUMMARY | 2024-10-02 23:35 | XMS_ITS | Clinical Summary ---
Author Organization [facility] Address [address] [place] [address] Care Team Providers Care Salvager Helper Name Role Phone Shannan Maldonado MD Primary Care Provider [phone] Source Comments [facility] Affiliates and Associated Physician Practices is amultiple site organization consisting of ambulatory clinics and hospital sitesin [place], [place], [place] and [place]. This disclosure is being madepursuant to the Care Everywhere program and may not contain all information available regarding this patient. Last updated 18.[facility] Allergies Active Allergy Reactions Criticality Noted Date [...] fluticasone propionate (FLONASE) 50 MCG/ACT nasal spray [place] 2 sprays into each nostril once daily [...] 06/13/2019 Assessment & Plan (06/13/2019 10:22 AM DROSOPHERE OPERATOR): POTS patients commonly have mast cell disorders. [...] 2015 Assessment & Plan (06/13/2019 10:19 AM DROSOPHERE OPERATOR): Would avoid high osmotic salt loads/salt tablets. Ok to just liberalize salt intake and eat banannas for potassium Postural orthostatic tachycardia syndrome 2015 Assessment & Plan (09/05/2019 10:06 AM DROSOPHERE OPERATOR): Her symptoms are well-controlled today. She dislocated [...] intake. Assessment & Plan (06/13/2019 10:47 AM DROSOPHERE OPERATOR): Postural orthostatic tachycardia syndrome (POTS) is a [...] 05/21/2010 Assessment & Plan (09/05/2019 10:07 AM DROSOPHERE OPERATOR): She had a routine screening echo today. Her aortic root today does not appear dilated by my view. Will await final read and call her if this is abnormal. Otherwise, q2yr echo. Assessment & Plan (06/13/2019 10:18 AM DROSOPHERE OPERATOR): The patient was diagnosed with EDS several [...] Comments Blood Pressure 122/90 09/05/2019 9:40 AM DROSOPHERE OPERATOR Pulse 112 09/05/2019 9:40 AM DROSOPHERE OPERATOR Temperature 36.8 C (98.2 F) 03/02/2019 7:52 AM CDT Respiratory Rate 18 03/02/2019 7:52 AM CDT Oxygen Saturation 99% 06/13/2019 8:42 AM DROSOPHERE OPERATOR Inhaled Oxygen Concentration - - Weight 63.5 kg (140 lb) 09/05/2019 8:22 AM DROSOPHERE OPERATOR Height 170.2 cm (5' 7 ) 09/05/2019 8:22 AM DROSOPHERE OPERATOR Body Mass Index 21.93 09/05/2019 8:22 AM DROSOPHERE OPERATOR Plan of Treatment Upcoming Encounters Date Type Department Care Team (Late st Contact Info) Description 11/08/2024 3:40 PM CDT Office Visit [facility] - Cardiology [address], [facility] [address] [place] [address] Javed Julio MD [address] [place] [address] Health Maintenance Due Date Last [...] ve Non-react hayder 02/28/2019 4:05 PM CDT [facility] Comment: Neither HIV-1 p24 Antigen nor HIV-1/HIV-2 Antibodies are detected. Blood BLOOD SPECIMEN / Unknown Venipuncture / Unknown 02/28/2019 1:57 PM CDT 02/28/2019 3:22 PM CDT Abel Barrientos MD LAB - HEMATOLOGY ORD ERABLES [address] [phone] from Last 3 Months or Most Recently Relevant to Health Maintenance Advance Directives * Full Code (Latest Code Status on File) Date Activated Date Inactivated Comments 02/28/2019 11:41 PM 03/02/2019 12:34 PM * Full Code Date Activated Date Inactivated Comments 02/28/2019 8:46 PM 02/28/2019 11:41 PM Care Teams Salvager Helper Relationship Specialty Start Date End Date Shannan Maldonado MD [address] [place] [address] PCP - General Family Medicine 03/22/16
--- OUTSIDE RECORDS SUMMARY | 2024-10-02 23:35 | XMS_ITS | Encounter Summary ---
Author Organization [facility] Address [address] [place] [address] Phone Care Team Providers Care Professor Of Geology Name Role Phone Shannan Maldonado MD Primary Care Provider [phone] Encounter Details Date Type Department Care Team [...] on file Legal Sex Female 1:34 AM CUSTOMER SERVICE VOICE Gender Identity Female 07/01/2022 7:31 PM CUSTOMER SERVICE VOICE Sexual Orientation Not on file documented as of this encounter Plan of Treatment Not on file documented as of this encounter Procedures Procedure Name Priority Date/Time Associated Diagnosis Comments SCAN - LABS 10/28/2021 documented in this encounter Results * SCAN - LABS (10/28/2021) us Provider Scanning Final Result documented in this encounter Visit Diagnoses Not on filedocumented in this encounter Care Teams Professor Of Geology Relationship Specialty Start Date End Date Shannan Maldonado MD PCP - General 09/07/19 documented as of this encounter
--- OUTSIDE RECORDS SUMMARY | 2024-10-02 23:35 | XMS_ITS | Clinical Summary ---
Author Organization [facility] Address [address] [place] [address] Care Team Providers Care Tile Layer Supervisor Name Role Phone Shannan Maldonado MD Primary Care Provider [phone] Celio Jacques MD Unavailable Allergies Active Allergy [...] this topic Medical Devices Implanted Type Area Program Proposals Coordinator Device Identifier Shelf Expiration Date Model / Serial / Lot Staple Bone [id number] m 2m - [id number] Implanted:Qty: 1 on 02/16/2024 by Pranay Dejesus DPM at [facility] [employer]ila[employer] Right: Foot [employer] CH[employer]STELLE 06/01/2027 [id number] / / [id number] Wire Ba .045in 4in - [id number] Implanted:Qty: 1 on 03/17/2023 by Pranay Dejesus DPM at [facility] Monique Right: Toe [employer] [id number] / / Description:Right second toe Insurance [facility] Care Teams Tile Layer Supervisor Relationship Specialty Start Date End Date Shannan Maldonado MD PCP - General 05/06/16 Celio Jacques MD [address] [facility] [address] [place] [address] CARDIOLOGY 03/14/23
--- OUTSIDE RECORDS SUMMARY | 2024-10-02 23:35 | XMS_ITS | Data Portability ---
Author Organization [place] [facility] [place] [facility] [place] WILLARD [email or web address] Address [address] [place] [address] Care Team Providers Care Control Electrician Name Role Phone JOSH GONZALES Primary Care [...] rologist referral 2022 023 MY perez MD, [address], [place], [address], 3 12:45:36 Procedures None recorded. Surgeries None recorded. Imaging None recorded. Medication Orders cyclobenza emily 10 mg tablet 2024 025 [id number], [address], [place], [place], [id number], 5 14:27:32 cyclobenza emily 10 mg tablet 2023 024 [facility]10737, [address], [place], [place], [id number], 4 08:35:50 cyclobenza emily 10 mg tablet 2023 024 [facility] #22931, [address], [place], [place], [id number], 4 12:12:49 cyclobenza emily 10 mg tablet 2022 023 btinkle [facility] #37463, [address], [place], [place], [id number], 3 07:57:02 cyclobenza emily 10 mg tablet 2019 020 [email or web address] [facility], [address], [place], [place], [id number], 3 09:31:39 Patient TargetsNo targets recorded. Patient Instructions Encounter Date Encounter Id Patient Instructions Last Modified By Organization Details Last Modified Time 02/03/2020 [id number] hand-washing: ca re instructions btinkle Not available [...] Will renew cyclobenzaprine. 2) Can discuss with manager strategic marketing installing posts and rubber bands to help stablize the jaw in the interim. 3) If further issues with the navicual/talar joint, may want pantograph ii engraver to speak with or you to see Dr. Sarath Medrano, a pantograph ii engraver with vast experience in EDS currently in [place]. May also want to consider stem cell injection in the joint as well. 4) Return to clinic in 6 months or earlier as needed I spent 30 minutes with the patient with greater than 20 minutes on counseling and coordination of care. btinkle Not available 02/03/2020 11:39:03 02/17/2023 [id number] 1) Encouraged to maintain fluids at 100 [...] record. btinkle Not available 02/20/2023 08:08:29 08/25/2023 [id number] 1) Continue with home exercise program 2) [...] record. btinkle Not available 08/25/2023 12:12:42 02/09/2024 [id number] 1) Continue home exercises 2) Will renew [...] record. 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 Denis Bush MD [address] [place] [address], [address], [place], [address] , [place] [facility] 5 14:31:39 Multiple joint pain 75024466 Active 2018 Not Available [facility] 3 03:21:18 Muscle pain 62488459 Active 2018 Not Available [facility] 3 03:21:18 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 Procedures Surgical History Date Name Laterality Status Provider Name and Address Organization Details Recorded Time 07/03/19 24 Foot Surgery completed Thelma Shabazz [place] [facility] 09/11/2024 14:05:06 07/03/19 22 Orthopedic surgery ss completed Calista Ovalle [place] [facility] 02/17/2023 09:39:02 04/08/20 19 Fall Risk Assessment ADULT completed John Greer LPN [place] [facility] 04/08/2019 09:34:06 11/13/19 16 tarsal tunnel release completed Denis Bush MD [address] [place] [address], [address], [place], [address], [place] [facility] 04/09/2019 16:03:02 11/01/19 11 tonsillectomy completed Denis Bush MD [address] [place] [address], [address], [place], [address], [place] [facility] 04/09/2019 16:03:25 11/07/19 10 Knee Surgery completed Denis Bush MD [address], [address], [place], [address], [place] [facility] 04/09/2019 16:02:02 Imaging Results None recorded. Procedure Notes None recorded. Medical Equipment None Reported. Allergies Allergen ID Allergen Name Allergen Category Reaction Reaction Severity Criticality Documentation Date Start Date Code Code System Note Provider Name and Address Organization Details Recorded Time 8479293 Cymbalta medicatio n Not available Not available Not available 04/08/2019 48938 4 RxNorm John Greer DUKEY RIDER null, [place] [facility] 9 09:26:54 0083513 Biaxin medicatio n anaphylax is Not available Not available 04/08/2019 70248 9 RxNorm John Greer DUKEY RIDER null, [facility] 9 09:27:19 3071114 Demerol medicatio n vomiting Not available Not available 04/08/2019 90735 1 RxNorm John [place] DUKEY RIDER null, [facility] 9 09:27:38 0104858 azithromy benedict medicatio n other Not available Not available 04/08/2019 42104 RxNorm vomit ing, sever stoma ch cramp ting, diarr hea John Greer DUKEY RIDER null, [facility] 9 09:28:40 7630064 Dilaudid medicatio n hives lighthead edness Not available Not available Not available 04/08/2019 50853 3 RxNorm John [place] DUKEY RIDER null, [facility] 9 09:29:19 6280820 hydrocodo ne Not available anaphylax is severe Not available 02/03/2020 5489 RxNorm Tabby Yaron null, [place] [facility] 0 08:04:23 9720982 lorazepam medicatio n Not available Not available Not available 02/09/2024 6470 RxNorm Calista Vasquez null, [place] [facility] 4 08:11:35 Medications Name Sig Start Date [...] Relief 50 mcg/actuat ion nasal spray,susp ension [place] 1 spray every day by intranas al [...] 3 102 /min 172 cm 29.4 kg/m2 70711 g 138 mm[Hg] 88 mm[Hg] Calista Ovalle [facility] 3 09:40:12 Date Recorded Body height Provider Name an d Address Organization Details Last Updated DateTime 08/25/2023 172 cm Chapis Salas [facility] 08/25/2023 11:20:45 Social History Question Answer Notes LastModified by Organizat ion Details LastModified Time Tobacco Smoking Status Never Smoker Vinh Huizar LPN [facility] 04/08/2019 09:19:44 What Is Your Level Of Alcohol Consumption? Occasional [email or web address] Information not available 02/17/2023 Are You Blind Or Do You Have Difficulty Seeing? Yes Glasses [email or web address] Information not available 09/11/2024 What Is Your Level Of Caffeine Consumption? Moderate Information not available 09/11/2024 Are You Currently Employed? No [email or web address] Information not available 02/17/2023 Are You Deaf Or Do You Have Serious Difficulty Hearing? No [email or web address] Information not available 09/11/2024 What Type Of Diet Are You Following? REGULAR [email or web address] Information not available 02/17/2023 Do You Or Have You Ever Used E-cigarettes Or Vape? Never Used Electronic Cigarettes [email or web address] Information not available 04/08/2019 Physical Therapy No Informat ion not available 02/03/2020 Speech Therapy No Informatio n not available 02/03/2020 Occupational Therapy No Information not available 02/03/2020 Have You Had A Fever And/or Symptoms Of A Lower Respiratory Illness (cough, Difficulty Breathing, Etc)? No Information not available 02/03/2020 What Was The Date Of Your Most Recent Tobacco Screening? 09/11/2024 [email or web address] Information not available 09/11/2024 Do You Have Any Pets? Yes [email or web address] Information not available 02/17/2023 Do You Use Your Seat Belt Or Car Seat Routinely? Yes [email or web address] Information not available 02/17/2023 Do You Have Smoke And Carbon Monoxide Detectors In Your Home? Yes [email or web address] Information not available 02/17/2023 Do You Or Have You Ever Used Smokeless Tobacco? Never Used Smokeless Tobacco Information not available 04/08/2019 How Much Tobacco Do You Smoke? No [email or web address] Information not available 04/08/2019 Do You Use Any Illicit Or Recreational Drugs? No [email or web address] Information not available 09/11/2024 How Many Years Have You Smoked Tobacco? 0 [email or web address] Information not available 04/08/2019 Are You Currently In School? 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 66990674 Q79.62 Postural o rthostatic tachycardia syndrome 431967491 I95.1 [id number] Denis Bush MD IND_PED_D GH_DOC [address] [place] [address] [place], [place] [address] [place] [address] 2 02/03/2020 08:02:45 02/03/2020 11:36:44 Health education given 241411141 Z71.9 Muscle pain 63318200 M79 .10 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 92042245 Q79.62 [id number] Denis Bush MD IND_PED_D GH_DOC [address] [address] [place], [place] [address] [place] [address] 02/17/2023 09:19:03 02/17/2023 10:23:58 Nausea and vomiting 70763621 R11.2 ?dysautono rosy Postural o rthostatic tachycardia syndrome 856521923 I95.1 Muscle pain 68217677 M79 .10 Multiple joint pain 3567 8005 M25.50 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 78344956 Q79.62 [id number] Denis Bush MD IND_PED_D GH_DOC [address] [place] [address] [place] [address] 2 08/25/2023 11:20:24 08/25/2023 12:13:59 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 60163597 Q79.62 Multiple joint pain 3567 8005 M25.50 Postural o rthostatic tachycardia syndrome 105785127 I95.1 Muscle pain 12825419 M79 .10 [id number] Denis Bush MD IND_PED_D GH_DOC [address] [place] [address] [place], [place] [address] [place] [address] 2 02/09/2024 08:10:27 02/09/2024 08:36:09 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 30079082 Q79.62 Multiple joint pain 3567 8005 M25.50 Postural o rthostatic tachycardia syndrome 253361442 I95.1 Muscle pain 67424941 M79 .10 [id number] Denis Bush MD IND_PED_D GH_DOC [address] [place] [address] [place] [address] 2 09/11/2024 14:02:38 09/11/2024 14:33:31 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 14746192 Q79.62 Postural o rthostatic tachycardia syndrome 458908111 I95.1 Muscle pain 83382398 M79 .10 Mast cell activation syndrome 3514091286 9165707 D89.40 Health Concerns Section Related Observation LastModified by Organization Detai ls LastModified Time None Recorded Concern Status LastModified by Organization Details LastModified Time None Recorded Advance Directives Directive None Recorded Payers Encounter Date Sequence Insurance Name Policy Number Policy Hilario Covered Member ID Hilario Member ID Guarantor Name 02/03/2020 1 [facility] [id number] Anson Koenig [id number] 2 Rosangela Koenig 02/17/2023 1 [facility] [id number] Anson Koenig [id number] 2 Rosangela Koenig 08/25/2023 1 [facility] [id number] Anson Koenig [id number] 2 Rosangela Koenig 02/09/2024 1 [facility] [id number] Anson Koenig [id number] 2 Rosangela Koenig Notes Date Note Type [...] navicular/talus dislocation. She is followed by a pantograph ii engraver and orthopedist. She has gone through two [...] follow up. She is currently working an manager strategic marketing to fix her bite before consideration of an oral appliance. 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 She reports occasional migrating muscle spasms often involving her neck and back. Rosangela is having oral ulcers. She was referred to an faith doctor to look at possible mast cell involvement. Denis Bush MD [address] [place] [address], [address], [place], [address], [facility] 02/03/2020 11:39:42 02/17/2023 text/html Rosangela is a [...] having idiopathic anaphylaxis. She has seen an stock or delivery clerk who has told her it is not mast cell activation syndrome. She has been taking antihistamines and recently placed on Xolair. Rosangela has benefited from use of cyclobenzaprine but she has not been using it for fear of dependency. Rosangela has also had three syncopal convulsions. No MRI and no further workup. Denis Bush MD [address], [place], [address], [facility] 02/20/2023 08:08:48 08/25/2023 text/html Patient acknowle dged, [...] is helping. Denis Bush MD [address] [place] [address], [address], [place], [address], [facility] 08/25/2023 12:13:27 02/09/2024 text/html Patient acknowle dged, [...] MD [address], [address], [place], [address], [facility] 02/09/2024 08:35:35 09/11/2024 text/html Rosangela is a [...] MD [address] , [address], [place], [address], [place] [facility] [place] [facility] [place] 09/11/2024 14:32:39 OBGyn Episode No OBEpisode recorded.
--- OUTSIDE RECORDS SUMMARY | 2024-10-02 23:35 | XMS_ITS | Encounter Summary ---
Author Organization [facility] Address [address] [place] [address] Phone Care Team Providers Care Grease Refiner Operator Name Role Phone Shannan Maldonado MD Primary Care Provider [phone] Encounter Details Date Type Department Care Team (Late st Contact Info) Description 10/01/2024 Telephone [facility] Infectious Diseases [address] [place] [address] [address] [place] [address] Cordelia Rudd RMA Social History Tobacco Use Types Packs/Day Years Used Date Smoking Tobacco: Never Smokeless Tobacco: Never Alcohol Use Standard Drinks/Week Comments Not Currently 0 (1 standard drink = 0.6 oz pur e alcohol) [facility] Utilities Answer Date Recorded In the past 12 months has [employer], gas, oil, or water company threatened to [...] often do you attend chur ch or scientologist services? Never 09/24/2024 Do you belong to any clubs o r organizations such as hindu groups, unions, fraternal or athletic groups, or [...] any time in the past 12 m [facility], were you homeless or living in a fdc (including now)? No 09/24/2024 Personal Safety Answer Date Recorded Have you ever been in or are you currently in a harmful physical or emotional relationship or is someone making you feel afraid or unsafe? Denies 09/28/2024 Comments No Sex and Gender Information Value Date Recorded Sex Assigned at Not on file Legal Sex Female 1:34 AM CELLULOSE INSULATION HELPER Gender Identity Female 07/01/2022 7:31 PM CELLULOSE INSULATION HELPER Sexual Orientation Not on file documented as of this encounter Miscellaneous Notes * Telephone Encounter - Cordelia Rudd RMA - 10/01/2024 3:29 PM CDT Error documented in this encounter Plan of Treatment Not on file documented as of this encounter Visit Diagnoses Not on filedocumented in this encounter Care Teams Grease Refiner Operator Relationship Specialty Start Date End Date Shannan Malodnado MD PCP - General 09/07/19 documented as of this encounter
--- OUTSIDE RECORDS SUMMARY | 2024-10-02 23:35 | XMS_ITS | Continuity of Care Document ---
Author Organization [employer] Address [address] [place] [address] Phone Care Team Providers Care Immigration Consultant Name Role Phone Manuel Anthony MD Unavailable [...] Diagnoses Date Provider Providers Copied on Encounter [facility], [address], [place], [place], [id number] , [place] tel: [phone] [facility] No Information 2 Gabrielle Jackson. [address] , [place], [place], [address] , [place]. tel: [phone] Referring Provider: Lazarus Blandon, [address], [place], [address]. tel:[phone] [employer] [facility], [address], [place], [place], [address] , [place] tel: [phone] [facility] No Information [address] [place] [address], [id number] , [place]. tel: [phone] [employer] [facility], [address], [place], [place], [address] , [place] tel: [phone] [facility] Abdominal pain, unspecified abdominal locationGastroesop hageal reflux disease without esophagitisFlatule nce symptomIrritable bowel syndrome without diarrhea 6 Aida Nava. [address] [facility], [address], [place], [place], [address] , [place]. tel: [phone] Referring Provider: Shannan Maldonado, [address], [place], [address]. tel:[phone] [employer] [facility], [address], [place], [place], [address] , [place] tel: [phone] [facility] No Information 5 Lawson C[address]. [address], [id number] , [place]. tel: [phone] [employer] [facility], [address], [place], [place], [address] , [place] tel: [phone] [facility] Anaphylaxis, initial encounter Lawson Cai. [address], [id number] , [place]. tel: [phone] [facility], [address], [place], [place], [address] , tel: [phone] [facility] Anaphylaxis, initial encounter Lawson Cai. [address], [id number] , [place]. tel: [phone] [email or web address] [facility], [address], [place], [place], [address] , tel: [phone] [facility] Anaphylaxis, initial encounter Lawson Cai. [address], [id number] , [place]. tel: [phone] Referring Provider: Shannan Maldonado [address] [place], [address]. tel:[phone] Family History Family Member Type Diagnosis Age At Onset No Information Payers Payer name Insurance type Covered constitution party ID Herminia cervantes(s) SANYA PASTRANA CI [id number] Social History Type Description Quantity Date Captured [...]
--- OUTSIDE RECORDS SUMMARY | 2024-10-02 23:35 | XMS_ITS ---
Author Organization [facility] Address [address] [place] [address] Care Team Providers Care Mathematical Scientist Name Role Phone Shannan Maldonado Primary Care Provider Romy Clark Unavailable [phone] REASON FOR VISIT Chronic care management Encounters Encounter Location Date Provider Diagnosis [facility] [address] [place] [address] 10/01/2024 Romy Montiel Plan Of Treatment Next Appt Details Provider Name:Romy archer, 10/16/2024 11:00:00 AM, [address] [place], [address], Progress Notes * Rosangela KOENIGDOB:[birth year] (34 yo F)Acc No.[id number]:10/01/2024 Patient: Rosangela PEGUERO :1990 A ge:34 Y S ex:Female Address:[facility] [place], [address] * true * Date: Generated for Printi ng/Fakeyshag/eTransmitting on: 0 10/02/2024 11:35 PM CDT
--- OUTSIDE RECORDS SUMMARY | 2024-10-02 23:36 | XMS_ITS | Referral Summary ---
Author Organization [facility] Geena Hernandez Extdamian nsion Address [address] [place] [address] Care Team Providers Care Mobility Scooter Repairer Name Role Phone Shannan Maldonado MD Primary Care Provider [phone] Encounters Date Type Department Care Team Description 10/02/2024 Orders Only [facility] Allergy and Immunology [address] [place] [address] [place] [phone] Oneyda Vaughan NP Sensation of swollen throat (Primary Dx) 10/02/2024 Orders Only [facility] Allergy and Immunology [address] [place] [phone] Oneyda Vaughan NP High risk medication use (Primary Dx) 10/01/2024 Telephone [facility] Infectious Diseases [address] [place] [address] Cordelia Rudd RMA 09/30/2024 1:00 PM CDT Office Visit [facility] Allergy and Immunology [address] [place] [address] [place] [phone] Oneyda Vaughan NP SOB (shortness of breath) (Primary Dx) 09/30/2024 Telephone [facility] Allergy and Immunology [address] [place] [address] [place] [phone] Ame Pulido RN 09/28/2024 7:55 PM CDT - 09/28/2024 10:39 PM CDT Emergency [facility] Emergency Department [address] [place] [address] Simran Frank MD Allergic reaction, initial encounter (Primary Dx) Discharge Disposition: Discharge to home or self care 09/27/2024 3:49 AM CDT - 09/27/2024 6:10 AM CDT Emergency [facility] Emergency Department [address] [place] [address] Ferdinand Rivera DO Allergic reaction, initial encounter (Primary Dx); Jaw pain Discharge Disposition: Discharge to home or self care 09/23/2024 4:55 PM CDT - 09/24/2024 1:30 PM CDT Hospital Encounter [facility] [address] [place] [address] Samuel Bowen MD Winston, Jared Todd, MD Ali, Md Shahin, MD Allergic reaction, initial encounter (Primary Dx) Discharge Disposition: Discharge to home or self care 09/01/2024 2:02 PM PERINATAL DIRECTOR - 09/05/2024 11:38 AM PERINATAL DIRECTOR Hospital Encounter [facility] [address] [place] [address] Wil Monteiro MD Gaspe Mudiyanselage, MD Tobin Vinson, Venkat Robin MD Allergic reaction, initial encounter (Primary Dx) Discharge Disposition: Discharge to home or self care 08/19/2024 4:39 PM PERINATAL DIRECTOR - 08/22/2024 1:15 PM PERINATAL DIRECTOR Hospital Encounter [facility] [address] [place] [address] José Luis Tripp MD Winston, Jared Todd, [...] drink = 0.6 oz pur e alcohol) [facility] Utilities Answer Date Recorded In the past 12 months has [employer], oil, or water [employer] threatened to shut off services in your [...] 09/24/2024 How often do you attend [facility] or [employer]ondo[employer] services? Never 09/24/2024 Do you belong to any clubs o r organizations such as holiness groups, unions, fraternal or athletic groups, or [...] any time in the past 12 m [facility], were you homeless or living in [...] on file Legal Sex Female 1:34 AM PERINATAL DIRECTOR Gender Identity Female 07/01/2022 7:31 PM PERINATAL DIRECTOR Sexual Orientation Not on file Last Filed [...] VIEWS Critical/Life- Threatening 09/23/2024 8:29 PM CDT PA CLOSED TX STERNOCLAVICULAR DISLC W/MANIPULATION Routine 09/23/2024 [...] CBC WITHOUT DIFFERENTIAL Routine 025 4:27 AM PERINATAL DIRECTOR CBC WITHOUT DIFFERENTIAL Routine 025 4:25 AM PERINATAL DIRECTOR TROPONIN T HIGH-SENSITIVITY 2-HOUR Timed 09/01/2024 5:11 PM PERINATAL DIRECTOR URINALYSIS AND REFLEX TO MICROSCOPIC AND CULTURE STAT 09/01/2024 4:58 PM PERINATAL DIRECTOR XR CHEST 1 VIEW ED 09/01/2024 3:05 PM PERINATAL DIRECTOR EGFR STAT 09/01/2024 2:59 PM PERINATAL DIRECTOR DIFFERENTIAL AUTO STAT 09/01/2024 2:5 9 PM PERINATAL DIRECTOR MAGNESIUM STAT 09/01/2024 2:59 PM PERINATAL DIRECTOR THYROID FUNCTION CASCADE STAT 025 2:59 PM PERINATAL DIRECTOR TROPONIN T HIGH-SENSITIVITY SERIES (BASELINE, 2HR, 4HR, 6HR) STAT 09/01/2024 2:59 PM PERINATAL DIRECTOR BASIC METABOLIC PANEL STAT 09/01/2024 2:59 PM PERINATAL DIRECTOR CBC WITH AUTO DIFFERENTIAL STAT 09/01/2024 2:59 PM PERINATAL DIRECTOR POCT HCG, URINE Routine 09/01/2024 2:28 PM PERINATAL DIRECTOR ECG 12-LEAD Routine 09/01/2024 1:54 PM PERINATAL DIRECTOR EGFR Routine 08/22/2024 7:57 AM PERINATAL DIRECTOR CBC WITHOUT DIFFERENTIAL Routine 025 7:57 AM PERINATAL DIRECTOR BASIC METABOLIC PANEL Routine 08/22/2024 7:57 AM PERINATAL DIRECTOR EGFR Routine 08/21/2024 7:53 AM PERINATAL DIRECTOR CBC WITHOUT DIFFERENTIAL Routine 025 7:53 AM PERINATAL DIRECTOR BASIC METABOLIC PANEL Routine 08/21/2024 7:53 AM PERINATAL DIRECTOR PA CLOSED TX TEMPOROMANDIBULAR DISLOCATION 1ST/SBSQ Routine 08/20/2024 1:18 PM PERINATAL DIRECTOR ED MODERATE SEDATION Routine 08/20/2024 1:18 PM PERINATAL DIRECTOR XR MANDIBLE LESS THAN 4 VIEWS Critical/Life- Threatening 08/20/2024 11:41 AM PERINATAL DIRECTOR SEPSIS LACTATE WITH REFLEX Timed 08/20/2024 8:24 AM PERINATAL DIRECTOR EGFR Routine 08/20/2024 3:25 AM PERINATAL DIRECTOR CBC WITHOUT DIFFERENTIAL Routine 025 3:25 AM PERINATAL DIRECTOR BASIC METABOLIC PANEL Routine 08/20/2024 3:25 AM PERINATAL DIRECTOR SEPSIS LACTATE WITH REFLEX Timed 08/20/2024 3:25 AM PERINATAL DIRECTOR ECG 12-LEAD Routine 08/20/2024 2:26 AM PERINATAL DIRECTOR SEPSIS LACTATE WITH REFLEX STAT 08/19/2024 8:52 PM PERINATAL DIRECTOR ECG 12-LEAD STAT 08/19/2024 8:25 PM PERINATAL DIRECTOR EGFR STAT 08/19/2024 8:20 PM PERINATAL DIRECTOR DIFFERENTIAL AUTO STAT 08/19/2024 8:2 0 PM PERINATAL DIRECTOR CBC WITH AUTO DIFFERENTIAL STAT 08/19/2024 8:20 PM PERINATAL DIRECTOR COMPREHENSIVE METABOLIC PANEL STAT 08/19/2024 8:20 PM PERINATAL DIRECTOR ED CRITICAL CARE Routine 08/19/2024 5:13 PM PERINATAL DIRECTOR from Last 3 Months Results * XR [...] 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 Wheezes throughout upon auscultation with audible [...] Shirley Reardon M.D. 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 Wheezes throughout upon auscultation with audible [...] Shirley Reardon M.D. 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 Wheezes throughout upon auscultation with audible [...] Arnold Chahal M.D. 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 Wheezes throughout upon auscultation with audible [...] Arnold Chahal M.D. KH: GLADYS Report ID: [id number] Reading Location: [place] [address] Simran Frank MD IMG XR PROCEDURES Final [...] was last reviewed 2021. Testing performed by: [address] [address] Blood 09/28/2024 8:10 PM CDT 09/28/2024 8:12 PM CDT Simran Frank MD LAB BLOOD ORDERABLES uRthy farooq Result [facility] [address] [facility] Department [place] [address] * (ABNORMAL) Differential, auto (09/28/2024 8:10 PM CDT) Neutrophil abs 12.9(H) 1.5 - 6.5 K/cumm Comment:Testing performed by : [address] [address] Imm gran abs 0.2(H) 0.0 - 0.1 K/cumm [facility] Comment:Testing performed by : [address] [address] Lymphocyte abs 3.9(H) 0.8 - 3.3 K/cumm [facility] Comment:Testing performed by : [address] [address] Monocyte abs 1.6(H) 0.2 - 0.8 K/cumm [facility] Comment:Testing performed by : [address] [address] Eosinophil abs 0.0 0.0 - 0.5 K/cumm [facility] Comment:Testing performed by : [address] [address] Basophil abs 0.0 0.0 - 0.1 K/cumm [facility] Comment:Testing performed by : [address] [address] Neutrophil pct 69.2 % [facility] Comment: Interpretive Data Percent cell count reference ranges are not reported, since discordance with absolute values may lead to misinterpretation of CBC data. Current Interpretive Data was last revised on 2017. Testing performed by: [address] [address] Imm gran pct 1.1 % [facility] Comment: Interpretive Data Percent cell count reference ranges are not reported, since discordance with absolute values may lead to misinterpretation of CBC data. Current Interpretive Data was last revised on 2017. Testing performed by: [address] [address] Lymphocyte pct 20.7 % [facility] Comment: Interpretive Data Percent cell count reference ranges are not reported, since discordance with absolute values may lead to misinterpretation of CBC data. Current Interpretive Data was last revised on 2017. Testing performed by: [address] [address] Monocyte pct 8.7 % [facility] Comment: Interpretive Data Percent cell count reference ranges are not reported, since discordance with absolute values may lead to misinterpretation of CBC data. Current Interpretive Data was last revised on 2017. Testing performed by: [address] [address] Eosinophil pct 0.1 % [facility] Comment: Interpretive Data Percent cell count reference ranges are not reported, since discordance with absolute values may lead to misinterpretation of CBC data. Current Interpretive Data was last revised on 2017. Testing performed by: [address] [address] Basophil pct 0.2 % [facility] Comment: Interpretive Data Percent cell count reference ranges are not reported, since discordance with absolute values may lead to misinterpretation of CBC data. Current Interpretive Data was last revised on 2017. Testing performed by: [address] [address] Blood 09/28/2024 8:10 PM CDT 09/28/2024 8:11 PM CDT us Simran Frank MD LAB BLOOD ORDERABLES Ruthy trivedi Result [facility] [address] [facility] Department [place] [address] * (ABNORMAL) CBC with auto differential (09/28/2024 8:10 PM CDT) [facility] WBC 18.6(H) 3.8 - 9.9 K/cumm Comment:Testing performed by : [address] [address] Hgb 11.3(L) 11.9 - 15.5 g/dL [facility] Comment:Testing performed by : [address], [address] Hct 36.0 35.6 - 45.5 % [facility] Comment:Testing performed by : [address], [address] Plt 601(H) 150 - 400 K/cumm [facility] Comment:Testing performed by : [address], [address] MPV 9.1 9.1 - 12.3 fL [facility] Comment:Testing performed by : [address], [address] RBC 4.56 3.90 - 5.20 M/cumm [facility] Comment:Testing performed by : [address] [address] MCV 78.9(L) 81.3 - 96.4 fL [facility] Comment:Testing performed by : [address] [address] MCH 24.8(L) 27.1 - 33.3 pg [facility] Comment:Testing performed by : [address], [address] MCHC 31.4(L) 32.3 - 35.7 g/dL [facility] Comment:Testing performed by : [address], [address] RDW CV 15.2(H) 11.1 - 14.9 % [facility] Comment:Testing performed by : [address], [address] RDW SD 43.6 35.7 - 48.1 fL [facility] Comment:Testing performed by : [address], [address] NRBC abs 0.03(H) 0.00 - 0.01 K/cumm [facility] Comment:Testing performed by : [address] [address] Blood 09/28/2024 8:10 PM CDT 09/28/2024 8:11 PM CDT Simran Frank MD LAB BLOOD ORDERABLES Ruthy trivedi Result [facility] [address] [facility] Department [place] [address] * (ABNORMAL) Comprehensive metabolic panel (09/28/2024 8:10 PM CDT) Sodium 142 135 - 145 mmol/L Comment:Testing performed by : [address] [address] Potassium, pl 3.2(L) 3.3 - 4.9 mmol/L [facility] Comment:Testing performed by : [address] [address] Chloride 103 97 - 110 mmol/L [facility] Comment:Testing performed by : [address] [address] CO2 23 22 - 32 mmol/L [facility] Comment:Testing performed by : [address] [address] Anion gap 16(H) 2 - 15 mmol/L [facility] Comment:Testing performed by : [address] [address] BUN 18 6 - 25 mg/dL [facility] Comment:Testing performed by : [address] [address] Creatinine 0.80 0.60 - 1.10 mg/dL [facility] Comment:Testing performed by : [address] [address] Glucose 108 70 - 199 mg/dL [facility] [...] was last revised 2022. Testing performed by: [address] [address] Calcium 10.0 8.5 - 10.3 mg/dL [facility] Comment:Testing performed by : [address] [address] Bilirubin, total <0.2 0.1 - 1.2 mg/dL [facility] Comment:Testing performed by : [address] [address] Protein, pl 7.4 6.5 - 8.5 g/dL [facility] Comment:Testing performed by : [address] [address] Albumin 4.4 3.5 - 5.0 g/dL [facility] Comment:Testing performed by : [address] [address] Alk phos 77 40 - 130 Units/L [facility] Comment:Testing performed by : [address] [address] ALT 28 7 - 45 Units/L [facility] Comment:Testing performed by : [address] [address] AST 22 10 - 45 Units/L [facility] Comment:Testing performed by : [address] [address] Blood 09/28/2024 8:10 PM CDT 09/28/2024 8:12 PM CDT us Simran Frank MD LAB BLOOD ORDERABLES Ruthy trivedi Result [facility] [address] [facility] Department [place] [address] * ECG 12 lead (09/28/2024 8:02 PM CDT) Ventricular Rate EKG/Min 151 BPM [facility] Atrial Rate 151 BPM [facility] PA-Interval (MSEC) 104 ms [facility] QRS-Interval (MSEC) 90 ms [facility] QT-Interval (MSEC) 336 ms [facility] QTc 532 ms [facility] P [place] 37 degrees [facility] R [place] 40 degrees [facility] T [place] 53 degrees [facility] Diagnosis Sinus tachycardia with short PA RSR' or QR pattern in V1 suggests right ventricular conduction delay Abnormal ECG When compared with ECG of 23-SEP-2024 16:46, No significant change Confirmed by BELIA CHU M.D. ([id number]) on 09/29/2024 11:02:24 PM [facility] 09/28/2024 8:02 PM CDT 09/29/2024 11:02 PM CDT Simran Frank MD ECG ORDERABLES Final Res ult [facility] * eGFR (09/27/2024 2:58 AM CDT) Pathologist [facility] eGFR >90 >=60 mL/min/1. 73 m2 Comment: [...] was last reviewed 2021. Testing performed by: [address] [address] Blood 09/27/2024 2:58 AM CDT 09/27/2024 3:03 AM CDT us Ferdinand Nicole UGALDE LAB BLOOD ORDERABLES Final Res ult [facility] [address] [facility] Department [place] [address] * (ABNORMAL) Differential, auto (09/27/2024 2:58 AM CDT) Neutrophil abs 13.2(H) 1.5 - 6.5 K/cumm Comment:Testing performed by : [address] [address] Imm gran abs 0.1 0.0 - 0.1 K/cumm [facility] Comment:Testing performed by : [address] [address] Lymphocyte abs 1.7 0.8 - 3.3 K/cumm [facility] Comment:Testing performed by : [address] [address] Monocyte abs 1.0(H) 0.2 - 0.8 K/cumm [facility] Comment:Testing performed by : [address] [address] Eosinophil abs 0.0 0.0 - 0.5 K/cumm [facility] Comment:Testing performed by : [address] [address] Basophil abs 0.0 0.0 - 0.1 K/cumm [facility] Comment:Testing performed by : [address] [address] Neutrophil pct 82.5 % [facility] Comment: Interpretive Data Percent cell count reference ranges are not reported, since discordance with absolute values may lead to misinterpretation of CBC data. Current Interpretive Data was last revised on 2017. Testing performed by: [address] [address] Imm gran pct 0.8 % [facility] Comment: Interpretive Data Percent cell count reference ranges are not reported, since discordance with absolute values may lead to misinterpretation of CBC data. Current Interpretive Data was last revised on 2017. Testing performed by: [address] [address] Lymphocyte pct 10.4 % [facility] Comment: Interpretive Data Percent cell count reference ranges are not reported, since discordance with absolute values may lead to misinterpretation of CBC data. Current Interpretive Data was last revised on 2017. Testing performed by: [address] [address] Monocyte pct 6.2 % [facility] Comment: Interpretive Data Percent cell count reference ranges are not reported, since discordance with absolute values may lead to misinterpretation of CBC data. Current Interpretive Data was last revised on 2017. Testing performed by: [address] [address] Eosinophil pct 0.0 % [facility] Comment: Interpretive Data Percent cell count reference ranges are not reported, since discordance with absolute values may lead to misinterpretation of CBC data. Current Interpretive Data was last revised on 2017. Testing performed by: [address] [address] Basophil pct 0.1 % [facility] Comment: Interpretive Data Percent cell count reference ranges are not reported, since discordance with absolute values may lead to misinterpretation of CBC data. Current Interpretive Data was last revised on 2017. Testing performed by: [address] [address] Blood 09/27/2024 2:58 AM CDT 09/27/2024 3:03 AM CDT us Ferdinand Rivrea DO LAB BLOOD ORDERABLES Final Res ult [facility] [address] [facility] Department of Laboratories [place], [place] [id number] * (ABNORMAL) CBC with auto differential (09/27/2024 2:58 AM CDT) [facility] WBC 15.9(H) 3.8 - 9.9 K/cumm Comment:Testing performed by : [address], [address] Hgb 11.3(L) 11.9 - 15.5 g/dL [facility] Comment:Testing performed by : [address], [address] Hct 36.7 35.6 - 45.5 % [facility] Comment:Testing performed by : [address], [address] Plt 532(H) 150 - 400 K/cumm [facility] Comment:Testing performed by : [address], [address] MPV 9.2 9.1 - 12.3 fL [facility] Comment:Testing performed by : [address], [address] RBC 4.50 3.90 - 5.20 M/cumm [facility] Comment:Testing performed by : [address], [address] MCV 81.6 81.3 - 96.4 fL [facility] Comment:Testing performed by : [address], [address] MCH 25.1(L) 27.1 - 33.3 pg [facility] Comment:Testing performed by : [address], [address] MCHC 30.8(L) 32.3 - 35.7 g/dL [facility] Comment:Testing performed by : [address], [address] RDW CV 15.4(H) 11.1 - 14.9 % [facility] Comment:Testing performed by : [address], [address] RDW SD 45.1 35.7 - 48.1 fL [facility] Comment:Testing performed by : [address], [address] NRBC abs 0.00 0.00 - 0.01 K/cumm [facility] Comment:Testing performed by : [address] [address] Blood 09/27/2024 2:58 AM CDT 09/27/2024 3:03 AM CDT us Ferdinand Rivera DO LAB BLOOD ORDERABLES Final Res ult [facility] [address] [facility] Department [place] [address] * Comprehensive metabolic panel (09/27/2024 2:58 AM CDT) Sodium 140 135 - 145 mmol/L Comment:Testing performed by : [address] [address] Potassium, pl 3.8 3.3 - 4.9 mmol/L [facility] Comment:Testing performed by : [address] [address] Chloride 103 97 - 110 mmol/L [facility] Comment:Testing performed by : [address] [address] CO2 23 22 - 32 mmol/L [facility] Comment:Testing performed by : [address] [address] Anion gap 14 2 - 15 mmol/L [facility] Comment:Testing performed by : [address] [address] BUN 11 6 - 25 mg/dL [facility] Comment:Testing performed by : [address] [address] Creatinine 0.66 0.60 - 1.10 mg/dL [facility] Comment:Testing performed by : [address] [address] Glucose 154 70 - 199 mg/dL [facility] [...] was last revised 2022. Testing performed by: [address] [address] Calcium 10.3 8.5 - 10.3 mg/dL [facility] Comment:Testing performed by : [address] [address] Bilirubin, total <0.2 0.1 - 1.2 mg/dL [facility] Comment:Testing performed by : [address] [address] Protein, pl 7.8 6.5 - 8.5 g/dL [facility] Comment:Testing performed by : [address] [address] Albumin 4.5 3.5 - 5.0 g/dL [facility] Comment:Testing performed by : [address] [address] Alk phos 85 40 - 130 Units/L [facility] Comment:Testing performed by : [address] [address] ALT 25 7 - 45 Units/L [facility] Comment:Testing performed by : [address] [address] AST 15 10 - 45 Units/L [facility] Comment:Testing performed by : [address] [address] Blood 09/27/2024 2:58 AM CDT 09/27/2024 3:03 AM CDT us Ferdinand Rivera DO LAB BLOOD ORDERABLES Final Res ult [facility] [address] [facility] Department [place] [address] * eGFR (09/24/2024 3:43 AM [...] was last reviewed 2021. Testing performed by: [address] [address] Blood 09/24/2024 3:43 AM CDT 09/24/2024 4:47 AM CDT us Dariela Cortez NP LAB BLOOD ORDERABLES Final R esult [facility] [address] [facility] Department [place] [address] * (ABNORMAL) Differential, auto (09/24/2024 3:43 AM CDT) Neutrophil abs 9.1(H) 1.5 - 6.5 K/cumm Comment:Testing performed by : [address] [address] Imm gran abs 0.0 0.0 - 0.1 K/cumm [facility] Comment:Testing performed by : [address] [address] Lymphocyte abs 0.7(L) 0.8 - 3.3 K/cumm [facility] Comment:Testing performed by : [address] [address] Monocyte abs 0.3 0.2 - 0.8 K/cumm [facility] Comment:Testing performed by : [address] [address] Eosinophil abs 0.0 0.0 - 0.5 K/cumm [facility] Comment:Testing performed by : [address] [address] Basophil abs 0.0 0.0 - 0.1 K/cumm [facility] Comment:Testing performed by : [address] [address] Neutrophil pct 89.5 % [facility] Comment: Interpretive Data Percent cell count reference ranges are not reported, since discordance with absolute values may lead to misinterpretation of CBC data. Current Interpretive Data was last revised on 2017. Testing performed by: [address] [address] Imm gran pct 0.3 % [facility] Comment: Interpretive Data Percent cell count reference ranges are not reported, since discordance with absolute values may lead to misinterpretation of CBC data. Current Interpretive Data was last revised on 2017. Testing performed by: [address] [address] Lymphocyte pct 6.9 % [facility] Comment: Interpretive Data Percent cell count reference ranges are not reported, since discordance with absolute values may lead to misinterpretation of CBC data. Current Interpretive Data was last revised on 2017. Testing performed by: [address] [address] Monocyte pct 3.1 % [facility] Comment: Interpretive Data Percent cell count reference ranges are not reported, since discordance with absolute values may lead to misinterpretation of CBC data. Current Interpretive Data was last revised on 2017. Testing performed by: [address] [address] Eosinophil pct 0.0 % [facility] Comment: Interpretive Data Percent cell count reference ranges are not reported, since discordance with absolute values may lead to misinterpretation of CBC data. Current Interpretive Data was last revised on 2017. Testing performed by: [address] [address] Basophil pct 0.2 % [facility] Comment: Interpretive Data Percent cell count reference ranges are not reported, since discordance with absolute values may lead to misinterpretation of CBC data. Current Interpretive Data was last revised on 2017. Testing performed by: [address] [address] Blood 09/24/2024 3:43 AM CDT 09/24/2024 4:50 AM CDT us Dariela Cortez NP LAB BLOOD ORDERABLES Final R esult [facility] [address] [facility] Department [place] [address] * (ABNORMAL) CBC with auto differential (09/24/2024 3:43 AM CDT) WBC 10.2(H) 3.8 - 9.9 K/cumm Comment:Testing performed by : [address] [address] [address] Hgb 10.5(L) 11.9 - 15.5 g/dL [facility] Comment:Testing performed by : [address] [address] Hct 34.2(L) 35.6 - 45.5 % [facility] Comment:Testing performed by : [address] [address] Plt 418(H) 150 - 400 K/cumm [facility] Comment:Testing performed by : [address] [address] MPV 9.7 9.1 - 12.3 fL [facility] Comment:Testing performed by : [address] [address] RBC 4.17 3.90 - 5.20 M/cumm [facility] Comment:Testing performed by : [address] [address] MCV 82.0 81.3 - 96.4 fL [facility] Comment:Testing performed by : [address] [address] MCH 25.2(L) 27.1 - 33.3 pg [facility] Comment:Testing performed by : [address] [address] MCHC 30.7(L) 32.3 - 35.7 g/dL [facility] Comment:Testing performed by : [address] [address] RDW CV 15.6(H) 11.1 - 14.9 % [facility] Comment:Testing performed by : [address] [address] RDW SD 46.4 35.7 - 48.1 fL [facility] Comment:Testing performed by : [address] [address] NRBC abs 0.00 0.00 - 0.01 K/cumm [facility] Comment:Testing performed by : [address] [address] Blood 09/24/2024 3:43 AM CDT 09/24/2024 4:50 AM CDT us Dariela Cortez NP LAB BLOOD ORDERABLES Final R esult [facility] [address] [facility] Department [place] [address] * (ABNORMAL) Basic metabolic panel (09/24/2024 3:43 AM CDT) Sodium 138 135 - 145 mmol/L Comment:Testing performed by : [address] [address] Potassium, pl 4.2 3.3 - 4.9 mmol/L [facility] Comment:Testing performed by : [address] [address] Chloride 107 97 - 110 mmol/L [facility] Comment:Testing performed by : [address] [address] CO2 21(L) 22 - 32 mmol/L [facility] Comment:Testing performed by : [address] [address] Anion gap 10 2 - 15 mmol/L [facility] Comment:Testing performed by : [address] [address] BUN 10 6 - 25 mg/dL [facility] Comment:Testing performed by : [address] [address] Creatinine 0.71 0.60 - 1.10 mg/dL [facility] Comment:Testing performed by : [address] [address] Glucose 145 70 - 199 mg/dL [facility] [...] was last revised 2022. Testing performed by: [address] [address] Calcium 9.7 8.5 - 10.3 mg/dL [facility] Comment:Testing performed by : [address] [address] Blood 09/24/2024 3:43 AM CDT 09/24/2024 4:47 AM CDT us Dariela Cortez NP LAB BLOOD ORDERABLES Final R esult [facility] 5944 [facility] Department [place] [address] * XR Mandible 4 or [...] signed by Arnold GRAHAM: GLADYS Report ID: [id number] Reading Location: [id number] Procedure Note Arnold Chahal MD - 09/23/2024 [...] signed by Arnold GRAHAM: GLADYS Report ID: [id number] Reading Location: [id number] [facility] Jayy Goode MD IMG XR PROCEDURES Fi nal Result * PA CLOSED TX STERNOCLAVICULAR DISLC W/MANIPULATION (09/23/2024 7:35 [...] Arnold Chahal M.D. KH: GLADYS Report ID: [id number] Reading Location: [place] [address] Procedure Note Arnold Chahal MD - 09/23/2024 [...] Electronically signed by Arnold Chahal M.D. KH: KH Report ID: [id number] Reading Location: [id number] us Jorje Huynh MD IMG XR PROCEDURES [...] López Mcclellan M.D. MM: MM Report ID: [id number] Reading Location: [id number] Procedure Note López Mcclellan MD - 09/23/2024 [...] López Mcclellan M.D. MM: MM Report ID: [id number] Reading Location: [place] [address] Samuel Bowen MD IMG XR PROCEDURES F inal Result * ECG 12 lead (09/23/2024 4:46 PM CDT) Ventricular Rate EKG/Min 146 BPM [facility] Atrial Rate 292 BPM [facility] QRS-Interval (MSEC) 98 ms [facility] QT-Interval (MSEC) 350 ms [facility] QTc 545 ms [facility] R [place] 58 degrees [facility] T [place] 50 degrees [facility] Diagnosis Sinus tachycardia Incomplete right bundle branch block T-wave changes When compared with ECG of 01-SEP-2024 13:54, No significant change Confirmed by SULTAN ZUNIGA M.D. ([id number]) on 09/23/2024 9:49:04 PM [facility] 09/23/2024 4:46 PM CDT 09/23/2024 9:49 PM CDT Samuel Bowen MD ECG ORDERABLES Fin al Result [facility] * eGFR (09/23/2024 4:27 PM CDT) eGFR [...] was last reviewed 2021. Testing performed by: [address] [address] Blood 09/23/2024 4:27 PM CDT 09/23/2024 4:39 PM CDT us Deisy MARQUEZ LAB BLOOD ORDERABLES Final Resu lt [facility] 8661 [facility] Department [place] [address] * (ABNORMAL) Differential, auto (09/23/2024 4:27 PM CDT) Pathologist [facility] Neutrophil abs 7.2(H) 1.5 - 6.5 K/cumm Comment:Testing performed by : [address] [address] Imm gran abs 0.0 0.0 - 0.1 K/cumm [facility] Comment:Testing performed by : [address] [address] Lymphocyte abs 2.4 0.8 - 3.3 K/cumm [facility] Comment:Testing performed by : [address] [address] Monocyte abs 0.8 0.2 - 0.8 K/cumm [facility] Comment:Testing performed by : [address] [address] Eosinophil abs 0.1 0.0 - 0.5 K/cumm [facility] Comment:Testing performed by : [address] [address] Basophil abs 0.1 0.0 - 0.1 K/cumm [facility] Comment:Testing performed by : [address] [address] Neutrophil pct 68.6 % [facility] Comment: Interpretive Data Percent cell count reference ranges are not reported, since discordance with absolute values may lead to misinterpretation of CBC data. Current Interpretive Data was last revised on 2017. Testing performed by: [address] [address] Imm gran pct 0.4 % [facility] Comment: Interpretive Data Percent cell count reference ranges are not reported, since discordance with absolute values may lead to misinterpretation of CBC data. Current Interpretive Data was last revised on 2017. Testing performed by: [address] [address] Lymphocyte pct 22.5 % [facility] Comment: Interpretive Data Percent cell count reference ranges are not reported, since discordance with absolute values may lead to misinterpretation of CBC data. Current Interpretive Data was last revised on 2017. Testing performed by: [address] [address] Monocyte pct 7.1 % [facility] Comment: Interpretive Data Percent cell count reference ranges are not reported, since discordance with absolute values may lead to misinterpretation of CBC data. Current Interpretive Data was last revised on 2017. Testing performed by: [address] [address] Eosinophil pct 0.7 % [facility] Comment: Interpretive Data Percent cell count reference ranges are not reported, since discordance with absolute values may lead to misinterpretation of CBC data. Current Interpretive Data was last revised on 2017. Testing performed by: [address] [address] Basophil pct 0.7 % [facility] Comment: Interpretive Data Percent cell count reference ranges are not reported, since discordance with absolute values may lead to misinterpretation of CBC data. Current Interpretive Data was last revised on 2017. Testing performed by: [address] [address] Blood 09/23/2024 4:27 PM CDT 09/23/2024 4:39 PM CDT us Samuel Bowen MD LAB BLOOD ORDERABLE S Final Result [facility] Department [place] [address] * (ABNORMAL) CBC with auto differential (09/23/2024 4:27 PM CDT) WBC 10.5(H) 3.8 - 9.9 K/cumm Comment:Testing performed by : [address] [address] Hgb 11.9 11.9 - 15.5 g/dL [facility] Comment:Testing performed by : [address] [address] Hct 40.4 35.6 - 45.5 % [facility] Comment:Testing performed by : [address] [address] Plt 517(H) 150 - 400 K/cumm [facility] Comment:Testing performed by : [address] [address] MPV 9.3 9.1 - 12.3 fL [facility] Comment:Testing performed by : [address] [address] RBC 4.93 3.90 - 5.20 M/cumm [facility] Comment:Testing performed by : [address] [address] MCV 81.9 81.3 - 96.4 fL [facility] Comment:Testing performed by : [address] [address] MCH 24.1(L) 27.1 - 33.3 pg [facility] Comment:Testing performed by : [address] [address] MCHC 29.5(L) 32.3 - 35.7 g/dL [facility] Comment:Testing performed by : [address] [address] RDW CV 15.6(H) 11.1 - 14.9 % [facility] Comment:Testing performed by : [address] [address] RDW SD 46.5 35.7 - 48.1 fL [facility] Comment:Testing performed by : [address] [address] NRBC abs 0.00 0.00 - 0.01 K/cumm [facility] Comment:Testing performed by : [address] [address] Blood 09/23/2024 4:27 PM CDT 09/23/2024 4:39 PM CDT us Samuel Bowen MD LAB BLOOD ORDERABLE S Final Result [facility] 4842 [facility] Department of Laboratories [place], [place] [id number] * Comprehensive metabolic panel (09/23/2024 4:27 PM CDT) Sodium 141 135 - 145 mmol/L Comment:Testing performed by : [address] [address] Potassium, pl 3.3 3.3 - 4.9 mmol/L [facility] Comment:Testing performed by : [address] [address] Chloride 104 97 - 110 mmol/L [facility] Comment:Testing performed by : [address] [address] CO2 22 22 - 32 mmol/L [facility] Comment:Testing performed by : [address] [address] Anion gap 15 2 - 15 mmol/L [facility] Comment:Testing performed by : [address] [address] BUN 11 6 - 25 mg/dL [facility] Comment:Testing performed by : [address], [place]., [address] Creatinine 0.89 0.60 - 1.10 mg/dL [facility] Comment:Testing performed by : [address] [address] Glucose 153 70 - 199 mg/dL [facility] [...] was last revised 2022. Testing performed by: [address] [address] Calcium 9.9 8.5 - 10.3 mg/dL [facility] Comment:Testing performed by : [address] [address] Bilirubin, total <0.2 0.1 - 1.2 mg/dL [facility] Comment:Testing performed by : [address] [address] Protein, pl 8.0 6.5 - 8.5 g/dL [facility] Comment:Testing performed by : [address] [address] Albumin 4.6 3.5 - 5.0 g/dL [facility] Comment:Testing performed by : [address] [address] Alk phos 84 40 - 130 Units/L [facility] Comment:Testing performed by : [address] [address] ALT 42 7 - 45 Units/L [facility] Comment:Testing performed by : [address] [address] AST 27 10 - 45 Units/L [facility] Comment:Testing performed by : [address] [address] Blood 09/23/2024 4:27 PM CDT 09/23/2024 4:39 PM CDT us Samuel Bowen MD LAB BLOOD ORDERABLE S Final Result [facility] 4500 [facility] Department of Laboratories [place], [place] [id number] * (ABNORMAL) CBC without differential (09/05/2024 4:27 AM PERINATAL DIRECTOR) WBC 14.9(H) 3.8 - 9.9 K/cumm Comment:Testing performed by : [address] [address] Hgb 10.8(L) 11.9 - 15.5 g/dL [facility] Comment:Testing performed by : [address] [address] Hct 35.6 35.6 - 45.5 % [facility] Comment:Testing performed by : [address] [address] Plt 414(H) 150 - 400 K/cumm [facility] Comment:Testing performed by : [address] [address] MPV 9.4 9.1 - 12.3 fL [facility] Comment:Testing performed by : [address] [address] RBC 4.35 3.90 - 5.20 M/cumm [facility] Comment:Testing performed by : [address] [address] MCV 81.8 81.3 - 96.4 fL [facility] Comment:Testing performed by : [address], [address] MCH 24.8(L) 27.1 - 33.3 pg [facility] Comment:Testing performed by : [address] [address] MCHC 30.3(L) 32.3 - 35.7 g/dL [facility] Comment:Testing performed by : [address] [address] RDW CV 15.4(H) 11.1 - 14.9 % [facility] Comment:Testing performed by : [address] [address] RDW SD 46.2 35.7 - 48.1 fL [facility] Comment:Testing performed by : [address] [address] NRBC abs 0.00 0.00 - 0.01 K/cumm [facility] Comment:Testing performed by : [address] [address] Blood 09/05/2024 4:27 AM PERINATAL DIRECTOR 09/05/2024 5:03 AM PERINATAL DIRECTOR us Venkat Rudd MD LAB BLOOD ORDERABLES Fi nal Result [facility] Department of Laboratories [place], [place] [id number] * (ABNORMAL) CBC without differential (09/04/2024 4:25 AM PERINATAL DIRECTOR) WBC 14.5(H) 3.8 - 9.9 K/cumm Comment:Testing performed by : [address] [address] Hgb 10.5(L) 11.9 - 15.5 g/dL [facility] Comment:Testing performed by : [address] [address] Hct 35.4(L) 35.6 - 45.5 % [facility] Comment:Testing performed by : [address] [address] Plt 392 150 - 400 K/cumm [facility] Comment:Testing performed by : [address] [address] MPV 9.2 9.1 - 12.3 fL [facility] Comment:Testing performed by : [address] [address] RBC 4.27 3.90 - 5.20 M/cumm [facility] Comment:Testing performed by : [address] [address] MCV 82.9 81.3 - 96.4 fL [facility] Comment:Testing performed by : [address] [address] MCH 24.6(L) 27.1 - 33.3 pg [facility] Comment:Testing performed by : [address] [address] MCHC 29.7(L) 32.3 - 35.7 g/dL [facility] Comment:Testing performed by : [address] [address] RDW CV 15.6(H) 11.1 - 14.9 % [facility] Comment:Testing performed by : [address] [address] RDW SD 47.6 35.7 - 48.1 fL [facility] Comment:Testing performed by : [address] [address] NRBC abs 0.00 0.00 - 0.01 K/cumm [facility] Comment:Testing performed by : [address] [address] Blood 09/04/2024 4:25 AM PERINATAL DIRECTOR 09/04/2024 4:41 AM PERINATAL DIRECTOR us Venkat Rudd MD LAB BLOOD ORDERABLES Fi nal Result [facility] 9816 [facility] Department of Laboratories [place], [place] [id number] * Troponin T high-sensitivity 2-hour (09/01/2024 5:11 PM PERINATAL DIRECTOR) Trop T hs <6 <=14 ng/L Comment: Interpretive Data For further hscTnT resources including the diagnostic algorithm and an aid in interpretation, copy and paste this link: https://nrl.testcatalog.org/show/hsTrop Current Interpretive Data last revised 2020. Testing performed by: [address] [address] Trop T hs delta 0 ng/L [facility] Comment:Testing performed by : [address] [address] Trop T hs interp Insignificant [facility] Comment:Testing performed by : [address] [address] Blood 09/01/2024 5:11 PM PERINATAL DIRECTOR 09/01/2024 5:14 PM PERINATAL DIRECTOR us Wil Monteiro MD LAB BLOOD ORDERABLE S Final Result [facility] 6[address] [facility] Department of Laboratories [place], [place] [id number] * Urinalysis reflex to microscopic and culture Urine (09/01/2024 4:58 PM PERINATAL DIRECTOR) Color, ur Yellow Yellow Comment:Testing performed by : [address] [address] Clarity, ur Clear Clear [facility] Comment:Testing performed by : [address] [address] Specific gravity, ur 1.015 1.003 - 1.030 [facility] Comment:Testing performed by : [address] [address] pH, urine 7.0 [facility] Comment: Interpretive Data U rine pH is affected by diet, medications, systemic acid-base disturbances, and renal tubular function. pH may affect urinary stone formation. For example, urine pH below 6.0 may help reduce the tendency for calcium phosphate stones and pH greater than 6.0 may reduce the tendency for uric acid stone formation. Source: [place] Current Interpretive Data was last revised on 2017 Testing performed by: [place] [address], [place]., [address] Protein, ur ql Negative Negative [facility] Comment:Testing performed by : [address], [place]., [address] Glucose, ur ql Negative Negative [facility] Comment:Testing performed by : [address], [place]., [address] Ketones, ur Negative Negative [facility] Comment:Testing performed by : [address], [place]., [address] Bilirubin, ur Negative Negative [facility] Comment:Testing performed by : [address], [place]., [address] Blood, ur Negative Negative [facility] Comment:Testing performed by : [address], [place]., [address] Urobilinogen, ur <2.0 <2.0 mg/dL [facility] Comment:Testing performed by : [address], [place]., [address] Nitrite, ur Negative Negative [facility] Comment:Testing performed by : [address], [place]., [address] Leukocyte esterase, ur Negative Negative [facility] Comment:Testing performed by : [address], [place]., [address] UA reflex comment Reflex conditions for microscopic UA and culture not met. [facility] Comment:Testing performed by : [address], [place]., [address] Urine 09/01/2024 4:58 PM PERINATAL DIRECTOR 09/01/2024 4:59 PM PERINATAL DIRECTOR us Wil Monteiro MD LAB MICROBIOLOGY - GENERAL ORDERABLES Final Result [facility] 5[address] [facility] Department [place] [address] * XR Chest 1 Vw Portable (09/01/2024 3:05 PM PERINATAL DIRECTOR) Anatomical Region Laterality Modality Body, Chest N/A Computed Radiogr aphy 09/01/2024 3:19 PM PERINATAL DIRECTOR Narrative 09/01/2024 3:22 PM PERINATAL DIRECTOR EXAM DESCRIPTION: XR CHEST 1 VIEW REASON [...] Robi Arreola M.D. MZ: MZ Report ID: [id number] Reading Location: [place] [address] Procedure Note Robi Arreola MD - 09/01/2024 [...] Robi Arreola M.D. MZ: MZ Report ID: [id number] Reading Location: [place] [address] us Wil Monteiro MD IMG XR PROCEDURES F inal Result * Troponin T high-sensitivity series (baseline, 2hr, 4hr, 6hr) (09/01/2024 2:59 PM PERINATAL DIRECTOR) Trop T hs <6 <=14 ng/L Comment: Interpretive Data For further hscTnT resources including the diagnostic algorithm and an aid in interpretation, copy and paste this link: https://nrl.testcatalog.org/show/hsTrop Current Interpretive Data last revised 2020. Testing performed by: [facility], [address] [place] [address]., [address] Blood 09/01/2024 2:59 PM PERINATAL DIRECTOR 09/01/2024 3:03 PM PERINATAL DIRECTOR us Wil Monteiro MD LAB BLOOD ORDERABLE S Final Result [facility] 7[address] [facility] Department [place] [address] * eGFR (09/01/2024 2:59 PM PERINATAL DIRECTOR) eGFR >90 >=60 mL/min/1. 73 m2 Comment: [...] reviewed 2021. Testing performed by: [facility], [address] [place] [address]., [address] Blood 09/01/2024 2:59 PM PERINATAL DIRECTOR 09/01/2024 3:03 PM PERINATAL DIRECTOR us Wil Monteiro MD LAB BLOOD ORDERABLE S Final Result [facility] Department [place] [address] * (ABNORMAL) Differential, auto (09/01/2024 2:59 PM PERINATAL DIRECTOR) Neutrophil abs 14.4(H) 1.5 - 6.5 K/cumm Comment:Testing performed by : [address] [address] Imm gran abs 0.2(H) 0.0 - 0.1 K/cumm [facility] Comment:Testing performed by : [address] [address] Lymphocyte abs 1.4 0.8 - 3.3 K/cumm [facility] Comment:Testing performed by : [address] [address] Monocyte abs 0.4 0.2 - 0.8 K/cumm [facility] Comment:Testing performed by : [address] [address] Eosinophil abs 0.0 0.0 - 0.5 K/cumm [facility] Comment:Testing performed by : [address] [address] Basophil abs 0.1 0.0 - 0.1 K/cumm [facility] Comment:Testing performed by : [address] [address] Neutrophil pct 87.3 % [facility] Comment: Interpretive Data Percent cell count reference ranges are not reported, since discordance with absolute values may lead to misinterpretation of CBC data. Current Interpretive Data was last revised on 2017. Testing performed by: [address] [address] Imm gran pct 0.9 % [facility] Comment: Interpretive Data Percent cell count reference ranges are not reported, since discordance with absolute values may lead to misinterpretation of CBC data. Current Interpretive Data was last revised on 2017. Testing performed by: [address] [address] Lymphocyte pct 8.7 % [facility] Comment: Interpretive Data Percent cell count reference ranges are not reported, since discordance with absolute values may lead to misinterpretation of CBC data. Current Interpretive Data was last revised on 2017. Testing performed by: [address] [address] Monocyte pct 2.7 % [facility] Comment: Interpretive Data Percent cell count reference ranges are not reported, since discordance with absolute values may lead to misinterpretation of CBC data. Current Interpretive Data was last revised on 2017. Testing performed by: [address] [address] Eosinophil pct 0.1 % [facility] Comment: Interpretive Data Percent cell count reference ranges are not reported, since discordance with absolute values may lead to misinterpretation of CBC data. Current Interpretive Data was last revised on 2017. Testing performed by: [address] [address] Basophil pct 0.3 % [facility] Comment: Interpretive Data Percent cell count reference ranges are not reported, since discordance with absolute values may lead to misinterpretation of CBC data. Current Interpretive Data was last revised on 2017. Testing performed by: [address] [address] Blood 09/01/2024 2:59 PM PERINATAL DIRECTOR 09/01/2024 3:03 PM PERINATAL DIRECTOR Wil Monteiro MD LAB BLOOD ORDERABLE S Final Result Performing Organization Address City/[facility]/ZIP Co de Phone Number [facility] [place] [address] * Thyroid Function Dickson (09/01/2024 2:59 PM PERINATAL DIRECTOR) [facility] TSH 0.80 0.30 - 4.20 mcIUnit/mL Comment:Testing performed by : [address] [address] Blood 09/01/2024 2:59 PM PERINATAL DIRECTOR 09/01/2024 3:03 PM PERINATAL DIRECTOR Wil Monteiro MD LAB BLOOD ORDERABLE S Final Result Performing Organization Address City/[facility] Co de Phone Number TAWNYA [address] [place] [address] * (ABNORMAL) CBC with auto differential (09/01/2024 2:59 PM PERINATAL DIRECTOR) [facility] WBC 16.5(H) 3.8 - 9.9 K/cumm Comment:Testing performed by : [address] [address] Hgb 11.3(L) 11.9 - 15.5 g/dL [facility] Comment:Testing performed by : [address] [address] Hct 36.4 35.6 - 45.5 % [facility] Comment:Testing performed by : [address] [address] Plt 465(H) 150 - 400 K/cumm [facility] Comment:Testing performed by : [address] [address] MPV 9.0(L) 9.1 - 12.3 fL [facility] Comment:Testing performed by : [address] [address] RBC 4.54 3.90 - 5.20 M/cumm [facility] Comment:Testing performed by : [address] [address] MCV 80.2(L) 81.3 - 96.4 fL [facility] Comment:Testing performed by : [address] [address] MCH 24.9(L) 27.1 - 33.3 pg [facility] Comment:Testing performed by : [address], [address] MCHC 31.0(L) 32.3 - 35.7 g/dL [facility] Comment:Testing performed by : [address], [address] RDW CV 15.1(H) 11.1 - 14.9 % [facility] Comment:Testing performed by : [address], [address] RDW SD 44.1 35.7 - 48.1 fL [facility] Comment:Testing performed by : [address], [address] NRBC abs 0.00 0.00 - 0.01 K/cumm [facility] Comment:Testing performed by : [address], [address] Blood 09/01/2024 2:59 PM PERINATAL DIRECTOR 09/01/2024 3:03 PM PERINATAL DIRECTOR us Wil Monteiro MD LAB BLOOD ORDERABLE S Final Result Performing Organization Address City/State/[facility] Co de Phone Number [facility] [address] [facility] Department [place] [address] * Magnesium (09/01/2024 2:59 PM PERINATAL DIRECTOR) Magnesium 2.0 1.4 - 2.5 mg/dL Comment:Testing performed by : [address], [address] Blood 09/01/2024 2:59 PM PERINATAL DIRECTOR 09/01/2024 3:03 PM PERINATAL DIRECTOR Wil Monteiro MD LAB BLOOD ORDERABLE S Final Result [facility] [address] [facility] Department [place] [address] * Basic metabolic panel (09/01/2024 2:59 PM PERINATAL DIRECTOR) Sodium 140 135 - 145 mmol/L Comment:Testing performed by : [address] [address] Potassium, pl 4.0 3.3 - 4.9 mmol/L [facility] Comment:Testing performed by : [address] [address] Chloride 103 97 - 110 mmol/L TAWNYA Comment:Testing performed by : [address] [address] CO2 23 22 - 32 mmol/L TAWNYA Comment:Testing performed by : [address], [place]., [address] Anion gap 14 2 - 15 mmol/L TAWNYA Comment:Testing performed by : [address] [address] BUN 17 6 - 25 mg/dL TAWNYA Comment:Testing performed by : [address] [address] Creatinine 0.68 0.60 - 1.10 mg/dL TAWNYA Comment:Testing performed by : [address] [address] Glucose 147 70 - 199 mg/dL [facility] Comment: Interpretive Data Fasting glucose >/= 126 [...] was last revised 2022. Testing performed by: [address] [address] Calcium 9.3 8.5 - 10.3 mg/dL TAWNYA MILLS Comment:Testing performed by : [facility], [address] [place] [address]., [address] Blood 09/01/2024 2:59 PM PERINATAL DIRECTOR 09/01/2024 3:03 PM PERINATAL DIRECTOR Wil Monteiro MD LAB BLOOD ORDERABLE S Final Result TAWNYA MILLS [address] [facility] Department [place] [address] * POCT hCG, urine (09/01/2024 2:28 PM PERINATAL DIRECTOR) HCG, ur, POC Negative Negative Lot Number [id number] QC Backgroud Clear Acceptable QC Control Line Acceptable Urine 09/01/2024 2:28 PM PERINATAL DIRECTOR Wil Monteiro MD POINT OF CARE TEST ORDERABLES Final Result * ECG 12 lead (09/01/2024 1:54 PM PERINATAL DIRECTOR) Ventricular Rate EKG/Min 153 BPM [facility] Atrial Rate 153 BPM [facility] PA-Interval (MSEC) 116 ms [facility] QRS-Interval (MSEC) 88 ms [facility] QT-Interval (MSEC) 328 ms [facility] QTc 523 ms [facility] P [place] 57 degrees [facility] R [place] 67 degrees [facility] T [place] 44 degrees [facility] Diagnosis Sinus tachycardia Otherwise normal ECG When compared with ECG of 20-AUG-2024 02:26, T wave inversion no longer evident in Anterior leads Confirmed by LAWRENCE YIP M.D. ([id number]) on 09/02/2024 9:10:53 AM [facility] 09/01/2024 1:54 PM PERINATAL DIRECTOR 09/02/2024 9:10 AM PERINATAL DIRECTOR Wil Monteiro MD ECG ORDERABLES Fin al Result [facility] * eGFR (08/22/2024 7:57 AM PERINATAL DIRECTOR) eGFR >90 >=60 mL/min/1. 73 m2 Comment: [...] was last reviewed 2021. Testing performed by: [address] [address] Blood 08/22/2024 7:57 AM PERINATAL DIRECTOR 08/22/2024 8:11 AM PERINATAL DIRECTOR us José Luis Tripp MD LAB BLOOD ORDERABLES Final Re sult TAWNYA [address] [facility] Department of Laboratories [place], [place] [id number] * (ABNORMAL) CBC without differential (08/22/2024 7:57 AM PERINATAL DIRECTOR) WBC 11.8(H) 3.8 - 9.9 K/cumm Comment:Testing performed by : [address] [address] Hgb 10.4(L) 11.9 - 15.5 g/dL TAWNYA MILLS Comment:Testing performed by : [address] [address] Hct 33.4(L) 35.6 - 45.5 % TAWNYA MILLS Comment:Testing performed by : [address] [address] Plt 450(H) 150 - 400 K/cumm TAWNYA Comment:Testing performed by : [address] [address] MPV 9.0(L) 9.1 - 12.3 fL TAWNYA Comment:Testing performed by : [address] [address] RBC 4.12 3.90 - 5.20 M/cumm TAWNYA Comment:Testing performed by : [address] [address] MCV 81.1(L) 81.3 - 96.4 fL TAWNYA Comment:Testing performed by : [address] [address] MCH 25.2(L) 27.1 - 33.3 pg TAWNYA Comment:Testing performed by : [address] [address] MCHC 31.1(L) 32.3 - 35.7 g/dL TAWNYA Comment:Testing performed by : [address] [address] RDW CV 15.5(H) 11.1 - 14.9 % TAWNYA Comment:Testing performed by : [address] [address] RDW SD 45.6 35.7 - 48.1 fL [facility]WNYA Comment:Testing performed by : [address] [address] NRBC abs 0.00 0.00 - 0.01 K/cumm TAWNYA Comment:Testing performed by : [address] [address] Blood 08/22/2024 7:57 AM PERINATAL DIRECTOR 08/22/2024 8:11 AM PERINATAL DIRECTOR us Jorje Huynh MD LAB BLOOD ORDERABLES Final Result TAWNYA [address] [facility] [place] [address] * Basic metabolic panel (08/22/2024 7:57 AM PERINATAL DIRECTOR) Sodium 137 135 - 145 mmol/L Comment:Testing performed by : [address] [address] Potassium, pl 3.7 3.3 - 4.9 mmol/L TAWNYA Comment:Testing performed by : [address] [address] Chloride 103 97 - 110 mmol/L TAWNYA Comment:Testing performed by : [address] [address] CO2 23 22 - 32 mmol/L TAWNYA Comment:Testing performed by : [address] [address] Anion gap 11 2 - 15 mmol/L TAWNYA Comment:Testing performed by : [address] [address] BUN 16 6 - 25 mg/dL [facility]WNYA Comment:Testing performed by : [address] [address] Creatinine 0.71 0.60 - 1.10 mg/dL [facility]WNYA Comment:Testing performed by : [address] [address] Glucose 102 70 - 199 mg/dL TAWNYA [...] was last revised 2022. Testing performed by: [address] [address] Calcium 9.0 8.5 - 10.3 mg/dL TAWNYA Comment:Testing performed by : [address] [address] Blood 08/22/2024 7:57 AM PERINATAL DIRECTOR 08/22/2024 8:11 AM PERINATAL DIRECTOR us José Luis Tripp MD LAB BLOOD ORDERABLES Final Re sult Performing Organization Address [facility] Co de Phone Number TAWNYA [address] [place] [address] * eGFR (08/21/2024 7:53 AM PERINATAL DIRECTOR) eGFR >90 >=60 mL/min/1. 73 m2 Comment: [...] reviewed 2021. Testing performed by: [facility], [address] [place] [address]., [address] Blood 08/21/2024 7:53 AM PERINATAL DIRECTOR 08/21/2024 8:14 AM PERINATAL DIRECTOR us José Luis Tripp MD LAB BLOOD ORDERABLES Final Re sult Performing Organization Address City/[facility]/ZIP Co de Phone Number TAWNYA [address] [place] [address] * (ABNORMAL) CBC without differential (08/21/2024 7:53 AM PERINATAL DIRECTOR) WBC 11.9(H) 3.8 - 9.9 K/cumm Comment:Testing performed by : [address] [address] Hgb 11.2(L) 11.9 - 15.5 g/dL TAWNYA Comment:Testing performed by : [address] [address] Hct 35.2(L) 35.6 - 45.5 % TAWNYA Comment:Testing performed by : [address] [address] Plt 481(H) 150 - 400 K/cumm [facility]ER[facility]LEY Comment:Testing performed by : [address] [address] MPV 9.0(L) 9.1 - 12.3 fL TAWNYA Comment:Testing performed by : [address] [address] RBC 4.41 3.90 - 5.20 M/cumm TAWNYA Comment:Testing performed by : [address] [address] MCV 79.8(L) 81.3 - 96.4 fL [facility]ER[facility]ILEY Comment:Testing performed by : [address] [address] MCH 25.4(L) 27.1 - 33.3 pg [facility]ER[facility]LEY Comment:Testing performed by : [address] [address] MCHC 31.8(L) 32.3 - 35.7 g/dL [facility]WNYA Comment:Testing performed by : [address] [address] RDW CV 15.6(H) 11.1 - 14.9 % TAWNYA Comment:Testing performed by : [address] [address] RDW SD 44.8 35.7 - 48.1 fL [facility]A Comment:Testing performed by : [address] [address] NRBC abs 0.00 0.00 - 0.01 K/cumm TAWNYA Comment:Testing performed by : [address] [address] Blood 08/21/2024 7:53 AM PERINATAL DIRECTOR 08/21/2024 8:15 AM PERINATAL DIRECTOR us Jorje Huynh MD LAB BLOOD ORDERABLES Final Result [facility] [address] [facility] Department [place] [address] * Basic metabolic panel (08/21/2024 7:53 AM PERINATAL DIRECTOR) Sodium 139 135 - 145 mmol/L Comment:Testing performed by : [address] [address] Potassium, pl 3.5 3.3 - 4.9 mmol/L TAWNYA Comment:Testing performed by : [address] [address] Chloride 102 97 - 110 mmol/L TAWNYA Comment:Testing performed by : [address] [address] CO2 23 22 - 32 mmol/L TAWNYA Comment:Testing performed by : [address] [address] Anion gap 14 2 - 15 mmol/L [facility]WNYA Comment:Testing performed by : [address] [address] BUN 11 6 - 25 mg/dL [facility]A Comment:Testing performed by : [address] [address] Creatinine 0.70 0.60 - 1.10 mg/dL [facility]WNYA Comment:Testing performed by : [address] [address] Glucose 91 70 - 199 mg/dL TAWNYA [...] revised 2022. Testing performed by: [facility], [address] [place] [address]., [address] Calcium 9.4 8.5 - 10.3 mg/dL TAWNYA MILLS Comment:Testing performed by : [address] [address] Blood 08/21/2024 7:53 AM PERINATAL DIRECTOR 08/21/2024 8:14 AM PERINATAL DIRECTOR us José Luis Tripp MD LAB BLOOD ORDERABLES Final Re sult TAWNYA MILLS [address] [facility] Department [place] [address] * PA CLOSED TX TEMPOROMANDIBULAR DISLOCATION 1ST/SBSQ (08/20/2024 1:18 PM PERINATAL DIRECTOR) Narrative Abhay Velez MD - 08/20/2024 1:18 PM PERINATAL DIRECTOR Abhay Velez MD 08/20/2024 1:33 PM Orthopedic Injury Treatment - Jaw Dislocation Date/Time: 08/20/2024 1:18 PM Performed by: Abhay Velez MD Authorized by: Abhay Velez MD RN Notified of Procedure: yes Informed consent: Risks, benefits, alternatives discussed and patient/business representative/guardian agrees and accepts Patient's stated name/ [...] procedure: Tolerated well, no immediate complications us Abhay Velez MD IN CLINIC/BEDSIDE ORDERABLES Fi nal Result * Procedural Sedation (08/20/2024 1:18 PM PERINATAL DIRECTOR) Narrative Abhay Velez MD - 08/20/2024 1:18 PM PERINATAL DIRECTOR Abhay Velez MD 08/20/2024 1:32 PM Procedural Sedation Date/Time: 08/20/2024 1:18 PM Performed by: Abhay Velez MD Authorized by: Abhay Velez MD [place] Protocol: RN Notified of Procedure: yes Informed consent: Risks, benefits, alternatives discussed and patient/business representative/guardian agrees and accepts Patient's stated name/ [...] Less than 4 Views (08/20/2024 11:41 AM PERINATAL DIRECTOR) Anatomical Region Laterality Modality Head and Neck N/A Computed Radiogr aphy 08/20/2024 11:5 5 AM PERINATAL DIRECTOR Narrative 08/20/2024 12:02 PM PERINATAL DIRECTOR EXAM DESCRIPTION: XR MANDIBLE LESS THAN 4 [...] Rohan Ramos M.D. LB: LB Report ID: [id number] Reading Location: [id number] Procedure Note Rohan Ramos MD - 08/20/2024 [...] Rohan Ramos M.D. LB: LB Report ID: [id number] Reading Location: [id number] us Jorje Huynh MD IMG XR PROCEDURES Final Re sult * Sepsis Lactate w/ Reflex (08/20/2024 8:24 AM PERINATAL DIRECTOR) Sepsis Lactate 1.3 0.7 - 2.0 mmol/L Comment:Testing performed by : [facility], [address] [place] [address], [place]., [address] Blood 08/20/2024 8:24 AM PERINATAL DIRECTOR 08/20/2024 8:29 AM PERINATAL DIRECTOR us Erik Westbrook NP LAB BLOOD ORDERABLES Final Resul t TAWNYA [address] [facility] Department [place] [address] * (ABNORMAL) Sepsis Lactate w/ Reflex (08/20/2024 3:25 AM PERINATAL DIRECTOR) Pathologist [facility] Sepsis Lactate 2.6(C) 0.7 - 2.0 mmol/L Comment: Critical Result called to and read back by [email or web address], DATE: 2024-08-20 04:23:15 BY: [id number] Testing performed by: [address] [address] Blood 08/20/2024 3:25 AM PERINATAL DIRECTOR 08/20/2024 4:00 AM PERINATAL DIRECTOR Erik Westbrook NP LAB BLOOD ORDERABLES Final Resul t TAWNYA 45[address] [facility] Department [place] [address] * eGFR (08/20/2024 3:25 AM PERINATAL DIRECTOR) [facility] eGFR >90 >=60 mL/min/1. 73 m2 [...] was last reviewed 2021. Testing performed by: [address] [address] Blood 08/20/2024 3:25 AM PERINATAL DIRECTOR 08/20/2024 4:00 AM PERINATAL DIRECTOR us José Luis Tripp MD LAB BLOOD ORDERABLES Final Re sult TAWNYA 25[address] [facility] Department [place] [address] * (ABNORMAL) CBC without differential (08/20/2024 3:25 AM PERINATAL DIRECTOR) WBC 12.4(H) 3.8 - 9.9 K/cumm Comment:Testing performed by : [address], [address] Hgb 10.3(L) 11.9 - 15.5 g/dL TAWNYA Comment:Testing performed by : [address], [address] Hct 32.7(L) 35.6 - 45.5 % TAWNYA Comment:Testing performed by : [address] [address] Plt 467(H) 150 - 400 K/cumm TAWNYA Comment:Testing performed by : [address], [address] MPV 9.1 9.1 - 12.3 fL TAWNYA Comment:Testing performed by : [address], [address] RBC 4.09 3.90 - 5.20 M/cumm TAWNYA Comment:Testing performed by : [address] [address] MCV 80.0(L) 81.3 - 96.4 fL TAWNYA Comment:Testing performed by : [address], [address] MCH 25.2(L) 27.1 - 33.3 pg TAWNYA MILLS Comment:Testing performed by : [address], [address] MCHC 31.5(L) 32.3 - 35.7 g/dL TAWNYA MILLS Comment:Testing performed by : [address], [address] RDW CV 15.1(H) 11.1 - 14.9 % TAWNYA MILLS Comment:Testing performed by : [address] [address] RDW SD 43.8 35.7 - 48.1 fL TAWNYA MILLS Comment:Testing performed by : [facility], [address] [place] [address]., [address] NRBC abs 0.00 0.00 - 0.01 K/cumm TAWNYA MILLS Comment:Testing performed by : [address] [address] Blood 08/20/2024 3:25 AM PERINATAL DIRECTOR 08/20/2024 4:00 AM PERINATAL DIRECTOR us José Luis Tripp MD LAB BLOOD ORDERABLES Final Re sult [facility] Department [place] [address] * (ABNORMAL) Basic metabolic panel (08/20/2024 3:25 AM PERINATAL DIRECTOR) Sodium 138 135 - 145 mmol/L Comment:Testing performed by : [address] [address] Potassium, pl 4.4 3.3 - 4.9 mmol/L TAWNYA MILLS Comment: Hemolyzed; Potassium value may be falsely elevated by as much as 1.0 mmol/L. Suggest redraw and reanalysis. Testing performed by: [address] [address] Chloride 104 97 - 110 mmol/L TAWNYA MILLS Comment:Testing performed by : [address] [address] CO2 20(L) 22 - 32 mmol/L TAWNYA MILLS Comment:Testing performed by : [address] [address] Anion gap 14 2 - 15 mmol/L TAWNYA MILLS Comment:Testing performed by : [address] [address] BUN 8 6 - 25 mg/dL TAWNYA MILLS Comment:Testing performed by : [address] [address] Creatinine 0.64 0.60 - 1.10 mg/dL [facility]A Comment:Testing performed by : [address] [address] Glucose 179 70 - 199 mg/dL TAWNYA [...] was last revised 2022. Testing performed by: [address] [address] Calcium 9.5 8.5 - 10.3 mg/dL TAWNYA Comment:Testing performed by : [address] [address] Blood 08/20/2024 3:25 AM PERINATAL DIRECTOR 08/20/2024 4:00 AM PERINATAL DIRECTOR us José Luis Tripp MD LAB BLOOD ORDERABLES Final Re sult TAWNYA 07[address] [facility] Department [place] [address] * ECG 12 lead (08/20/2024 2:26 AM PERINATAL DIRECTOR) Pathologist [facility] Ventricular Rate EKG/Min 148 BPM [facility] Atrial Rate 148 BPM [facility] PA-Interval (MSEC) 114 ms [facility] QRS-Interval (MSEC) 100 ms [facility] QT-Interval (MSEC) 336 ms [facility] QTc 527 ms [facility] P [place] 51 degrees [facility] R [place] 73 degrees [facility] T [place] 35 degrees [facility] Diagnosis Sinus tachycardia Incomplete right bundle branch block Nonspecific T wave abnormality Abnormal ECG When compared with ECG of 19-AUG-2024 20:25, No significant change was found Confirmed by BELIA CHU M.D. ([id number]) on 08/21/2024 5:20:17 AM [facility] 08/20/2024 2:26 AM PERINATAL DIRECTOR 08/21/2024 5:20 AM PERINATAL DIRECTOR us Jorje Huynh MD ECG ORDERABLES Final Resu lt Performing Organization Address City/[facility]/ZIP Co de Phone Number [facility] * (ABNORMAL) Sepsis Lactate w/ Reflex (08/19/2024 8:52 PM PERINATAL DIRECTOR) Pathologist [facility] Sepsis Lactate 2.4(C) 0.7 - 2.0 mmol/L Comment: Critical Result called to and read back by [email or web address], DATE: 2024-08-19 21:21:33 BY: [email or web address] Testing performed by: [facility], [address] [place] [address]., [address] Blood 08/19/2024 8:5 2 PM PERINATAL DIRECTOR 08/19/2024 8:55 PM PERINATAL DIRECTOR us Erik Westbrook NP LAB BLOOD ORDERABLES Final Resul t Performing Organization Address City/[facility] Co de Phone Number [facility] [address] [facility] Department [place] [address] * ECG 12 lead (08/19/2024 8:25 PM PERINATAL DIRECTOR) Pathologist [facility] Ventricular Rate EKG/Min 129 BPM [facility] Atrial Rate 129 BPM [facility] PA-Interval (MSEC) 138 ms [facility] QRS-Interval (MSEC) 100 ms [facility] QT-Interval (MSEC) 316 ms [facility] QTc 462 ms [facility] P [place] 55 degrees [facility] R [place] 49 degrees [facility] T [place] 46 degrees [facility] Diagnosis Sinus tachycardia Possible Left atrial enlargement Incomplete right bundle branch block Borderline ECG When compared with ECG of 21-MAY-2024 14:20, No significant change was found Confirmed by ZANE SORTO M.D. ([id number]) on 08/20/2024 11:59:01 PM [facility] 08/19/2024 8:25 PM PERINATAL DIRECTOR 08/20/2024 11:59 PM PERINATAL DIRECTOR Erik Westbrook NP ECG ORDERABLES Final Result [facility] * eGFR (08/19/2024 8:20 PM PERINATAL DIRECTOR) eGFR >90 >=60 mL/min/1. 73 m2 Comment: [...] reviewed 2021. Testing performed by: [facility], [address] [place] [address]., [address] Blood 08/19/2024 8:20 PM PERINATAL DIRECTOR 08/19/2024 8:24 PM PERINATAL DIRECTOR Erik Westbrook NP LAB BLOOD ORDERABLES Final Resul t TAWNYA [address] [facility] Department [place] [address] * (ABNORMAL) Differential, auto (08/19/2024 8:20 PM PERINATAL DIRECTOR) Neutrophil abs 17.7(H) 1.5 - 6.5 K/cumm Comment:Testing performed by : [address], [place]., [address] Imm gran abs 0.1 0.0 - 0.1 K/cumm TAWNYA Comment:Testing performed by : [address], [place]., [address] Lymphocyte abs 0.6(L) 0.8 - 3.3 K/cumm TAWNYA Comment:Testing performed by : [address] [address] Monocyte abs 0.4 0.2 - 0.8 K/cumm [facility] Comment:Testing performed by : [address], [place]., [address] Eosinophil abs 0.0 0.0 - 0.5 K/cumm TAWNYA Comment:Testing performed by : [address], [place]., [address] Basophil abs 0.1 0.0 - 0.1 K/cumm [facility] Comment:Testing performed by : [address] [address] Neutrophil pct 94.0 % [facility] Comment: Interpretive Data Percent cell count reference ranges are not reported, since discordance with absolute values may lead to misinterpretation of CBC data. Current Interpretive Data was last revised on 2017. Testing performed by: [address] [address] Imm gran pct 0.4 % [facility] Comment: Interpretive Data Percent cell count reference ranges are not reported, since discordance with absolute values may lead to misinterpretation of CBC data. Current Interpretive Data was last revised on 2017. Testing performed by: [address] [address] Lymphocyte pct 3.1 % CERNER Comment: Interpretive Data Percent cell count reference ranges are not reported, since discordance with absolute values may lead to misinterpretation of CBC data. Current Interpretive Data was last revised on 2017. Testing performed by: [address] [address] Monocyte pct 2.2 % CERNER Comment: Interpretive Data Percent cell count reference ranges are not reported, since discordance with absolute values may lead to misinterpretation of CBC data. Current Interpretive Data was last revised on 2017. Testing performed by: [address] [address] Eosinophil pct 0.0 % TAWNYA Comment: Interpretive Data Percent cell count reference ranges are not reported, since discordance with absolute values may lead to misinterpretation of CBC data. Current Interpretive Data was last revised on 2017. Testing performed by: [address] [address] Basophil pct 0.3 % TAWYNA Comment: Interpretive Data Percent cell count reference ranges are not reported, since discordance with absolute values may lead to misinterpretation of CBC data. Current Interpretive Data was last revised on 2017. Testing performed by: [address] [address] Blood 08/19/2024 8:20 PM PERINATAL DIRECTOR 08/19/2024 8:24 PM PERINATAL DIRECTOR us Erik Westbrook NP LAB BLOOD ORDERABLES Final Resul t TAW[facility] Department of Laboratories [place], [place] [id number] * (ABNORMAL) CBC with auto differential (08/19/2024 8:20 PM PERINATAL DIRECTOR) WBC 18.8(H) 3.8 - 9.9 K/cumm Comment:Testing performed by : [address] [address] Hgb 10.7(L) 11.9 - 15.5 g/dL TAWNYA MILLS Comment:Testing performed by : [address] [address] Hct 33.3(L) 35.6 - 45.5 % TAWNYA Comment:Testing performed by : [address] [address] Plt 502(H) 150 - 400 K/cumm TAWNYA MILLS Comment:Testing performed by : [address] [address] MPV 8.9(L) 9.1 - 12.3 fL [facility]A Comment:Testing performed by : [address] [address] RBC 4.21 3.90 - 5.20 M/cumm TAWNYA MILLS Comment:Testing performed by : [address] [address] MCV 79.1(L) 81.3 - 96.4 fL [facility]A Comment:Testing performed by : [address] [address] MCH 25.4(L) 27.1 - 33.3 pg TAWNYA Comment:Testing performed by : [address] [address] MCHC 32.1(L) 32.3 - 35.7 g/dL TAW[facility]A MILLS Comment:Testing performed by : [address] [address] RDW CV 14.9 11.1 - 14.9 % TAWNYA Comment:Testing performed by : [address] [address] RDW SD 43.0 35.7 - 48.1 fL [facility]A Comment:Testing performed by : [address] [address] NRBC abs 0.00 0.00 - 0.01 K/cumm [facility]A Comment:Testing performed by : [address] [address] Blood 08/19/2024 8:20 PM PERINATAL DIRECTOR 08/19/2024 8:24 PM PERINATAL DIRECTOR us Erik Westbrook NP LAB BLOOD ORDERABLES Final Resul t TAWNYA [address] [facility] Department [place] [address] * Comprehensive metabolic panel (08/19/2024 8:20 PM PERINATAL DIRECTOR) Sodium 140 135 - 145 mmol/L Comment:Testing performed by : [address] [address] Potassium, pl 3.5 3.3 - 4.9 mmol/L [facility] Comment:Testing performed by : [address], [place]., [address] Chloride 104 97 - 110 mmol/L TAW[facility]A Comment:Testing performed by : [address], [place]., [address] CO2 23 22 - 32 mmol/L [facility] Comment:Testing performed by : [address], [place]., [address] Anion gap 13 2 - 15 mmol/L [facility] Comment:Testing performed by : [address], [place]., [address] BUN 11 6 - 25 mg/dL [facility] Comment:Testing performed by : [address], [place]., [address] Creatinine 0.71 0.60 - 1.10 mg/dL [facility] Comment:Testing performed by : [address] [address] Glucose 136 70 - 199 mg/dL [facility] Comment: Interpretive Data Fasting glucose >/= [...] was last revised 2022. Testing performed by: [address] [address] Calcium 9.2 8.5 - 10.3 mg/dL [facility] Comment:Testing performed by : [address] [address] Bilirubin, total <0.2 0.1 - 1.2 mg/dL [facility] Comment:Testing performed by : [address] [address] Protein, pl 7.5 6.5 - 8.5 g/dL [facility] Comment:Testing performed by : [address] [address] Albumin 4.4 3.5 - 5.0 g/dL [facility] Comment:Testing performed by : [address] [address] Alk phos 74 40 - 130 Units/L [facility] Comment:Testing performed by : [address] [address] ALT 29 7 - 45 Units/L [facility]A Comment:Testing performed by : [address] [address] AST 19 10 - 45 Units/L [facility] Comment:Testing performed by : [address] [address] Blood 08/19/2024 8:20 PM PERINATAL DIRECTOR 08/19/2024 8:24 PM PERINATAL DIRECTOR Erik Westbrook NP LAB BLOOD ORDERABLES Final Resul t [facility] [facility] [place] [address] * Critical Care (08/19/2024 5:13 PM PERINATAL DIRECTOR) Narrative Erik Westbrook NP - 08/19/2024 5:13 PM PERINATAL DIRECTOR Erik Westbrook NP 08/19/2024 9:10 PM Critical [...] Final Result from Last 3 Months Insurance [facility], [facility] OPEN ACCESS [facility] CHOICE PLUS [facility] CHOICE PLUS Advance Directives For more information, please contact: [phone] * Full Code (Latest Code Status on File) Date Activated Date Inactivated Comments 09/23/2024 7:38 PM 09/24/2024 5:41 PM * Full Code Date Activated Date Inactivated Comments 09/01/2024 7:30 PM 09/05/2024 3:39 PM * Full Code Date Activated Date Inactivated Comments 08/19/2024 9:45 PM 08/22/2024 5:15 PM Care Teams Mobility Scooter Repairer Relationship Specialty Start Date End Date Shannan Maldonado MD PCP - General 09/07/19
--- OUTSIDE RECORDS SUMMARY | 2024-10-02 23:36 | XMS_ITS ---
Author Organization [facility] Address [address] [place] [address] Care Team Providers Care Cloth Dyer Name Role Phone Shannan Maldonado Primary Care Provider Romy Clark Unavailable [phone] REASON FOR VISIT Chronic care management Encounters Encounter Location Date Provider Diagnosis [facility] [address] [place] [address] 10/01/2024 Romy Montiel Plan Of Treatment Next Appt Details Provider Name:Romy archer, 10/16/2024 11:00:00 AM, [address] [place], [address], Progress Notes * Rosangela KOENIGDOB:[birth year] (34 yo F)Acc No.[id number]:10/01/2024 Patient: Rosangela PEGUERO :1990 A ge:34 Y S ex:Female Address:[facility] [place] [place], [address] * true * Date: Generated for Printi ng/Fakeyshag/eTransmitting on: 0 10/02/2024 11:36 PM CDT
--- OUTSIDE RECORDS SUMMARY | 2024-10-02 23:36 | XMS_ITS | Encounter Summary ---
Author Organization [facility] Address [address] [place] [address] Phone Care Team Providers Care Rn Pediatric Icu Name Role Phone Shannan Maldonado MD Primary Care Provider [phone] Encounter Details Date Type Department Care Team (Late st Contact Info) Description 10/02/[address] [facility] Allergy and Immunology [address] [place] [id number] Oneyda Vaughan NP [address] [place] [address] High risk medication use (Primary Dx) Social History Tobacco Use Types Packs/Day Years Used Date Smoking Tobacco: Never Smokeless Tobacco: Never Alcohol Use Standard Drinks/Week Comments Not Currently 0 (1 standard drink = 0.6 oz pur e alcohol) [facility] Utilities Answer Date Recorded In the past 12 months has [employer] electric, gas, oil, or water company threatened [...] week 09/24/2024 How often do you attend [facility] or denominational services? Never 09/24/2024 Do you belong to any clubs o r organizations such as anabaptism groups, unions, fraternal or athletic groups, or [...] any time in the past 12 m [facility], were you homeless or living in a residential (including now)? No 09/24/2024 Personal Safety Answer Date Recorded Have you ever been in or are you currently in a harmful physical or emotional relationship or is someone making you feel afraid or unsafe? Denies 09/28/2024 Comments No Sex and Gender Information Value Date Recorded Sex Assigned at Not on file Legal Sex Female 1:34 AM TURNAROUND PLANNER Gender Identity Female 07/01/2022 7:31 PM TURNAROUND PLANNER Sexual Orientation Not on file documented as of this encounter Plan of Treatment Pending Results Name Type Priority Associated Diagnoses Date /Time Cyclosporine A level trough Lab Routine High risk medication use 10/02/2024 11:30 AM CDT CBC with auto differential Lab Routine High risk medication use 10/02/2024 11:30 AM CDT Comprehensive metabolic panel Lab Routine High risk medication use 10/02/2024 11:30 AM CDT Urinalysis reflex to microscopic Lab Routine High risk medication use 10/02/2024 11:30 AM CDT Scheduled Orders Name Type Priority Associated Diagnoses Orde r Schedule Cyclosporine A level trough Lab Routine High risk medication use 4 weeks for 11 Occurrences starting 10/02/2024 until 10/02/2025 CBC with auto differential Lab Routine High risk medication use 4 weeks for 11 Occurrences starting 10/02/2024 until 10/02/2025 Comprehensive metabolic panel Lab Routine High risk medication use 4 weeks for 11 Occurrences starting 10/02/2024 until 10/02/2025 Urinalysis reflex to microscopic Lab Routine High risk medication use 4 weeks for 11 Occurrences starting 10/02/2024 until 10/02/2025 documented as of this encounter Visit Diagnoses Diagnosis High risk medication use- Primary documented in this encounter Care Teams Rn Pediatric Icu Relationship Specialty Start Date End Date Shannan Maldonado MD PCP - General 09/07/19 documented as of this encounter
--- OUTSIDE RECORDS SUMMARY | 2024-10-02 23:36 | XMS_ITS | Encounter Summary ---
Author Organization [facility] Address [address] [place] [address] Phone Care Team Providers Care Child Adolescent Care Name Role Phone Shannan Maldonado MD Primary Care Provider [phone] Reason for Referral * Consultation (Routine) - Pending Review Specialty Diagnoses / Procedures Referred By Zhane t Referred To Contact Otolaryngology Diagnoses Sensation of swollen throat Oneyda Vaughan NP [address] [place] [address] Phone: tel: fax: Giovana Tracy MD [address] [place] [address] Phone: tel: fax: Referral ID Status Reason Start Date Expiration Date Visits Requested Visits Authorized [id number] Pending Review Specialty Services Required 10/02/2024 11/01/2025 1 1 Question Answer Please select the performing region: [facility] (All Locations) [167] To provider: GIOVANA TRACY [[id number]] # of visits: 1 Comments Please evaluate for PVFM Encounter Details Date Type Department Care Team (Late st Contact Info) Description 10/02/2024 Orders Only [facility] Allergy and Immunology [address] [place] [address] Oneyda Vaughan, AUTOMATIC OVEN OPERATOR [address] [place] [address] Sensation of swollen throat (Primary Dx) Social History Tobacco Use Types Packs/Day Years Used Date Smoking Tobacco: Never Smokeless Tobacco: Never Alcohol Use Standard Drinks/Week Comments Not Currently 0 (1 standard drink = 0.6 oz pur e alcohol) [facility] Utilities Answer Date Recorded In the past 12 months has e electric, gas, oil, or water company threatened [...] any clubs o r organizations such as jain groups, unions, fraternal or athletic groups, or [...] any time in the past 12 m [facility], were you homeless or living in a [...] on file Legal Sex Female 1: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 POWER 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 Gender Identity Female 07/01/2022 7:31 PM WIND POWER PROJECT MANAGER Sexual Orientation Not on file documented as of this encounter Plan of Treatment Scheduled Referrals Name Type Priority Associated Diagnoses Order Schedule Ambulatory referral to ENT Outpatient Referral Routine Sensation of swollen throat 1 Occurrences starting 10/02/2024 until 10/02/2025 documented as of this encounter Visit Diagnoses Diagnosis Sensation of swollen throat- Primary documented in this encounter Care Teams Child Adolescent Care Relationship Specialty Start Date End Date Shannan Maldonado MD PCP - General 09/07/19 documented as of this encounter
--- OUTSIDE RECORDS SUMMARY | 2024-10-02 23:36 | XMS_ITS ---
Author Organization [facility] Address [address] [place] [address] Care Team Providers Care Applications Programmer Analyst Name Role Phone Shannan Maldonado Primary Care Provider Romy Clark Unavailable [phone] Allergies Allergen (clinical drug ingredient) Drug/Non Drug [...] Duration) Notes Start Date End Date Status ZYRTEC 10 mg 1 tab(s) orally once a day for 30 days Active AUVI-Q 0.3 mg as directed intramuscularly once for 1 day Active predniSONE 20 mg 1 tab(s) orally once a day for bronchitis Not-Taking predniSONE 20 MG 3 tablets once a day for 3 days, 2 tablets once a day for 3 days, 1 tablet once a day for 3 days Orally Once a day for 9 days Active Flonase Allergy Relief 50 MCG/ACT 1 spray(s) intranasally once a day for 30 day(s) Not-Taking FAMOTIDINE 40 mg 1 tab(s) orally 2 times a day for 90 days Active Famotidine 40 MG 1 tab(s) orally 2 times a day for 90 days Active predniSONE 10 MG 2 tablets x3 days, 1 tablet x3 days Orally Once a day for 6 days 08/27/2024 Active Reglan 10 MG 1 tab(s) orally Qday, PRN Active Prochlorperazine Maleate 10 MG 1 tab(s) orally every 6 hours 10/11/2023 Active traZODone HCl 50 MG as directed orally once a day Active Auvi-Q 0.3 MG/0.3ML as directed intramuscularly once for 1 day Active diazePAM 5 MG 1 tab(s) orally every 8 hours Active Cyclobenzaprine HCl 10 MG 1 tab(s) orally 3 times a day Active Social History Tobacco Use: Social History Observation Description Date Details (start date - stop date) Never Smoker NA - NA Smoking Smart Form: Question Answer Notes Are you a: never smoker Tobacco Control (Standard) Question Answer Notes Tobacco use: Nonsmoker Vital Signs Blood pressure systolic 153 mm Hg 10/03/19 25 Blood pressure diastolic 98 mm Hg 025 Height 67 in 10/02/2024 Weight 209.0 lbs 10/02/2024 BMI 32.73 kg/m2 10/02/2024 Oximetry 98 % 10/02/2024 Encounters Encounter Location Date Provider Diagnosis [facility] [address] [address] 10/02/2024 Romy Dinesh Idiopathic urticaria L50.1 ; Angioneurotic [...] Treatment Notes Treatment Clinical Notes Section Notes 10/02/2024 Idiopathic urticaria (ICD-10 - L50.1) She was sent home with steroids after hospitalization and requesting a further taper 10/02/2024 Angioneurotic edema, subsequent encounter (ICD-10 - T78.3XXD) [...] therapy since unclear if benefit from Xolair. 10/02/2024 Chronic sinusitis, unspecified (ICD-10 - J32.9) History of chronic sinusitis requiring antibiotics 5 times a year. Immunodeficiency evaluation normal and normal response to vaccines 10/02/2024 Allergic rhinitis due to pollen (ICD-10 - J30.1) Rosangela clearly suffers from atopic disease based upon history and our skin testing. Consider immunotherapy in the future if needed. 10/02/2024 Allergic rhinitis due to animal (cat) (dog) hair and dander (ICD-10 - J30.81) 10/02/2024 Other allergic rhinitis (ICD-10 - J30.89) 10/02/2024 Other chronic allergic conjunctivitis (ICD-10 - H10.45) Given ocular signs and symptoms I encouraged allergy avoidance measures and meds as above. If symptoms persist, consider adding additional medications including intraocular antihistamine/mast cell stabilizer, PRN 10/02/2024 Allergy to other foods (ICD-10 - Z91.018) skin testing to all food was negative at prior visit. Episodes do not appear to be food related 10/02/2024 Allergy status to narcotic agent status (ICD-10 - Z88.5) Appears to have allergic reaction with morphine, but only involved the IV site. May be a local reaction. No other symptoms. Avoid for now since tolerates Fentanyl. 10/02/2024 Mild intermittent asthma, uncomplicated (ICD-10 - J45.20) Spirometry at last check is normal. Continue prn albuterol 10/02/2024 Other Plan Of Treatment Medication Medication Name Sig Start Date Stop Date Notes ZYRTEC 10 mg 1 tab(s) orally once a day for 30 days AUVI-Q 0.3 mg as directed intramus cularly once for 1 day predniSONE 20 MG 3 tablets once a day for 3 days, 2 tablets once a day for 3 days, 1 tablet once a day for 3 days Orally Once a day for 9 days FAMOTIDINE 40 mg 1 tab(s) orally 2 times a day for 90 days Treatment Notes Assessment Notes Idiopathic urticaria She [...] Weeks, Reason: XOLAIR Administration Provider Name:Romy archer, 10/16/2024 11:00:00 AM, [address], [place], [address], Procedure Notes * Category Sub-Category Detail Notes XOLAIR (omalizumab) Administration Dosing Time / Vitals Kanchan Willard 10/02/2024 02:51:42 PM CDT >, Time of administration, See initial vitals Dosage 300 mg (60 units) Location LLA Reaction None Frequency q 2 weeks AIE (epinephrine) on patient? yes Lot Number / Expiration Lot Number(s):[id number], Expiration Date:03/27 Post-procedural check-out: Vital signs t aken 30 minutes after dosing administration: Safety: Staff verified patie nt is carrying AIE (epinephrine) at all times given risk of anaphylaxis?: Yes Medication Source XOLAIR Source: Speci alty Pharmacy (Insurance-provided) Reason for SP:: Specialty pharmacy medication was administered, (despite being approved for BnB) because there were doses remaining from prior authorization Source Verification:: Yes Medical necessity for in-off ice administration: The patient or caregiver is not suitable , not competent or is physically unable to administer the XOLAIR product FDA-labeled for self-administration for the following reason(s):: needle phobia Progress Notes * PA Rosangela NaniDOB:[birth year] (34 yo F)Acc No.[id number]:10/02/2024 XOLAIR F/U Patient: Rosangela PEGUERO Provider: Nani Montiel MD :1990 A ge:34 Y S ex:Female Date:10/02/2024 [place] [place] [facility] [place] [facility] Pcp:Shannan Maldonado Subjective: * Chief Complaints: * 1 . Chronic urticaria and angioedema follow-up - recent flare and hospitalization. 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 She was last evaluated 09-11-2024. S he has been evaluated in the ER five times in the last few weeks. Facial swelling, hives on her chest and shoulders, t ongue and throat tingling and shortness of breath. She took last dose of prednisone yesterday. She is?Benadryl q4 hours, famotidine 40 mg BID, Zyrtec 20 mg BID S he was admitted 09-01-2024 and hospitalized for 4 days due to hives and angioedema. She ate Taco Singh and immediately after eating developed lip and tongue swelling. She was also developing hives on her chest and face. She used her EpiPen at home and taken to the [facility] ER. She was given further epinephrine in the ER. She continued to develop hives and tongue swelling for 4 days. While hospitalized, c oncern related to her amoxicillin. Prior to angioedema, she had 3 days of amoxicillin for bronchitis. She is currently taking and prednisone. She is currently on a steriod taper and 1 tablet left. She is scheduled for f/u with Dr. Suarez later this month. She is currently off oral contraceptives. S he was also hospitalized earlier in August for hives and angioedema which were thought related to changing oral contraceptives. She started Dana earlier in August a nd developed vomiting and diarrhea. She switched to Chica 08-12-24. She is now off control and planning to f/u with NOEMI. S he has been off buspirone and mirtazapine for about 1 year. She feels diazepam is working well. S he is tolerating Xolair q2 weeks. Spring 2022, [...] sinusitis and epistaxis as a young child. L ast year, she had a normal gastric emptying [...] or Cymbalta. Zofran caused prolonged QT syndrome. G eneticist Dr. Denis Bush Rag Cutting Machine Tender Dr. Joes Luis Jacques at [facility] Re Maldonado. * ROS: A LLERGY: Positive p [...] and history, otherwise unremarkable. * Medical History: E hlers-Danlos syndrome, Other specified cardiac arrhythmias, Anaphylaxis, Idiopathic urticaria, Chronic sinusitis, unspecified, Recurrent oral aphthae, Allergic rhinitis due to pollen, Allergic rhinitis due to animal (cat) (dog) hair and dander, Other allergic rhinitis, Other chronic allergic conjunctivitis, Allergy to other foods, Angioneurotic edema, initial encounter, Angioneurotic edema, subsequent encounter. * Surgical History: M uscle Biopsy 10/17/2006, [place] Teeth Removal 2008, D&C 2008, Medial Patella Femoral Ligament Reconstruction 11/06/2009, Tonsillectomy 10/2010, Tarsal Tunnal Release 2015, foot surgery for toe dislocation (right foot) 12/2021, screw right great toe replaced and pin put in second right toe 04/2023. * Hospitalization/Major Diagno stic Procedure: U rticaria and Angioedema October 2021, Epistaxis 06/28/22, anaphylaxis 09/08/2022, anaphylaxis 10/12/22, anaphylaxis 10/01/23. * Family History: F ather: , diagnosed [...] heating? Y es Gas or electric? e lectric Fireplace? N o Wood burning stove? N [...] your bedroom? Y es Do you have wgfx-de-ikty carpeting? Y es What material(s) are used [...] Tobacco use: N onsmoker * Medications: T aking Auvi-Q 0.3 MG/0.3ML Solution Auto-injector as directed intramuscularly once , Taking traZODone HCl 50 MG Tablet as directed orally once a day , Taking diazePAM 5 MG Tablet 1 tab(s) orally every 8 hours , Taking Cyclobenzaprine HCl 10 MG Tablet 1 tab(s) orally 3 times a day , Taking Reglan 10 MG Tablet 1 tab(s) orally Qday, PRN , Taking Prochlorperazine Maleate 10 MG Tablet 1 tab(s) orally every 6 hours , Taking Famotidine 40 MG Tablet 1 tab(s) orally 2 times a day , Taking predniSONE 10 MG Tablet 2 tablets x3 days, 1 tablet x3 days Orally Once a day , Taking predniSONE 20 MG Tablet 3 tablets once a day for 2 days, 2 tablets once a day for 2 days, 1 tablet once a day for 2 days Orally Once a day , Not-Taking/PRN FAMOTIDINE 40 mg tablet 1 tab(s) orally 2 times a day , Not-Taking/PRN ZYRTEC 10 mg tablet 1 tab(s) orally once a day , Not-Taking/PRN AUVI-Q 0.3 mg kit as directed intramuscularly once , Not-Taking/PRN predniSONE 20 mg tablet 1 tab(s) orally once a day , Notes to Pharmacist: for bronchitis, Not-Taking/PRN Flonase Allergy Relief 50 MCG/ACT Suspension 1 spray(s) intranasally once a day , Medication List reviewed and reconciled with the patient * Allergies: C ymbalta: other reaction, Demerol: vomiting, BIAXIN: vomiting, Azithromycin: vomiting, HYDROmorphone: Itching, ZOFRAN: Itching, HYDROcodone: QT Prolongation. Objective: * Vitals: B P:153/98mm Hg, HR:137/min, Pulse Oximetry:98%, CU-Q2oL: 22, UAS7: 0, Ht: 67 in, Wt: 209.0 lbs, BMI:32.73Index. * Examination: G eneral examination: General appearance: [...] MG, 3 tablets once a day for 3 days, 2 tablets once a day for 3 days, 1 tablet once a day for 3 days, Orally, Once a day, 9 days, 18 tablets, Refills 0. Notes: She was sent home [...] OLAIR (omalizumab) Administration: Dosing Time / Vitals Kanchan Juarez 10/02/2024 02:51:42 PM CDT >, Time of administration, See initial vitals. Dosage 3 00 mg (60 units). Location L LA. Reaction N one. Frequency q 2 weeks. AIE (epinephrine) on patient? y es. Lot Number / Expiration L ot Number(s):[id number], Expiration Date:03/27. Post-procedural check-out: V ital signs taken 30 minutes after dosing administration:. Safety: S taff verified patient is carrying AIE (epinephrine) at all times given risk of anaphylaxis? Y es Medication Source X OLAIR Source S pecialty Pharmacy (Insurance-provided) Garrison esteves for SP: S pecialty pharmacy medication was administered, (despite being approved for BnB) because there were doses remaining from prior authorization S ource Verification: Y es Medical necessity for in-precinct commanding officer: T he patient or caregiver is not suitable, not competent or is physically unable to administer the XOLAIR product FDA-labeled for self-administration for the following reason(s): n eedle phobia * Procedure Codes: G 8427 DOC MEDS VERIFIED W/[place], [address] PT-FOCUSED HLTH RISK ASSMT, 24864 CHEMO, ANTI-NEOPL, SQ/IM * Preventive Medicine: Counseling: [...] REFERRAL TO ALTERNATIVE / PRIMARY CARE PROVIDER: Garrison solares to general practitioner * Follow Up: 2 Weeks (Reason: XOLAIR Administration) * Billing Information: * Visit Code: 20666 Office Visit, Est Pt., Level 4. Modifiers: 25 * Procedure Codes: G8427 DOC MEDS VERIFIED W/[place]. [address] PT-FOCUSED HLTH RISK ASSMT. 59471 CHEMO, ANTI-NEOPL, SQ/IM. 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 She was last evaluated 09-11-2024. She has been evaluated in the ER five times in the last few weeks. Facial swelling, hives on her chest and shoulders, tongue and throat tingling and shortness of breath. She took last dose of prednisone yesterday. She is Benadryl q4 hours, famotidine 40 mg BID, Zyrtec 20 mg BID She was admitted 09-01-2024 and hospitalized for 4 days due to hives and angioedema. She ate Taco Singh and immediately after eating developed lip and tongue swelling. She was also developing hives on her chest and face. She used her EpiPen at home and taken to the [facility] ER. She was given further epinephrine in the ER. She continued to develop hives and tongue swelling for 4 days. While hospitalized, concern related to her amoxicillin. Prior to angioedema, she had 3 days of amoxicillin for bronchitis. She is currently taking and prednisone. She is currently on a [...] or Cymbalta. Zofran caused prolonged QT syndrome. Inspector Clip On Sunglasses Dr. Denis Bush Rag Cutting Machine Tender Dr. Jose Luis Jacques at [facility] Dr. Ngozi Maldonado *Allergic Rhinoconjunctivitis *Asthma [...]
--- OUTSIDE RECORDS SUMMARY | 2024-10-02 23:36 | XMS_ITS | Clinical Summary ---
Author Organization [facility] Geena Hernandez Extdamian nsion Address [address] [facility] [place] [address] Care Team Providers Care Gallery Intern Name Role Phone Shannan Maldonado MD Primary Care Provider [phone] Allergies Active Allergy Reactions Criticality Noted Date [...] Department Care Team Description 10/02/2024 Orders Only [facility] Allergy and Immunology [address] [place] [address] [address] [place] [phone] Oneyda Vaughan NP Sensation of swollen throat (Primary Dx) 10/02/2024 Orders Only [facility] [address] [place] [address] [place] [phone] Oneyda Vuaghan NP High risk medication use (Primary Dx) 10/01/2024 Telephone [facility] Infectious Diseases [address] [place] [address] [address] [place] [phone] Cordelia Rudd RMA 09/30/2024 1:00 PM CDT Office Visit [facility]ology [address] [place] [address] [place] [phone] Oneyda Vaughan NP SOB (shortness of breath) (Primary Dx) 09/30/2024 Telephone [facility] [address] [place] [address] [place] [phone] Ame Pulido RN 09/28/2024 7:55 PM CDT - 09/28/2024 10:39 PM CDT [facility] Emergency Department [address] [place] [id number] Simran Frank MD Allergic reaction, initial encounter (Primary Dx) Discharge Disposition: Discharge to home or self care 09/27/2024 3:49 AM CDT - 09/27/2024 6:10 AM CDT [facility] Emergency Department [address] [place] [id number] Ferdinand Rivera DO Allergic reaction, initial encounter (Primary Dx); Jaw pain Discharge Disposition: Discharge to home or self care 09/23/2024 4:55 PM CDT - 09/24/2024 1:30 PM CDT Hospital Encounter [place] [address] [address] [place] [address] Samuel Bowen MD Winston, MD Nimesh Galaviz Md Shahin, MD Allergic reaction, initial encounter (Primary Dx) Discharge Disposition: Discharge to home or self care 09/01/2024 2:02 PM MICROFICHE DUPLICATOR - 09/05/2024 11:38 AM MICROFICHE DUPLICATOR Hospital Encounter [address] Surg [address] [place] [address] Wil Monteiro MD Gaspe Mudiyanselage, MD Tobin Vinson, Venkat Robin MD Allergic reaction, initial encounter (Primary Dx) Discharge Disposition: Discharge to home or self care 08/19/2024 4:39 PM MICROFICHE DUPLICATOR - 08/22/2024 1:15 PM MICROFICHE DUPLICATOR Hospital Encounter [facility] [address] [place] [address] José Luis Tripp MD Winston, Jorje Lester MD Anaphylaxis, initial encounter (Primary Dx) Discharge Disposition: Discharge to home or self care from Last 3 Months Surgical History Surgery Date Site/Laterality Comments [place] BIOPSY MUSCLE SUPERFICIAL Biopsy Muscle - 2006 (Added by Conv) KNEE SURGERY Knee Surgery - ligament reconstruction 10/2009 (Added by Conv) [place] RELEASE TARSAL TUNNEL Decompression Tarsal Tunnel Release Left Foot - (Added by TW Conv) FL TONSILLECTOMY PRIMARY/SECONDARY <AGE 12 Tonsillectomy - (Added by TW Conv) WISDOM TOOTH EXTRACTION Oral Surgery Tooth Extraction [place] Tooth - (Added by Conv) FL COLONOSCOPY FLX DX W/LEX J SPEC WHEN PFRMD Colonoscopy - (Added by Conv) FL DILATION & CURETTAGE DX&/ THER [...] = 0.6 oz pur e alcohol) [facility] Utilities Answer Date Recorded In the past 12 months has e electric, gas, oil, or water [employer] threatened to shut off services in your [...] How often do you attend chur or sikhism services? Never 09/24/2024 Do you belong to [...] in the past 12 m [facility], were you homeless or living in a senior living (including now)? No 09/24/2024 Personal Safety Answer Date Recorded Have you ever been in or are you currently in a harmful physical or emotional relationship or is someone making you feel afraid or unsafe? Denies 09/28/2024 Comments No Sex and Gender Information Value Date Recorded Sex Assigned at Not on file Legal Sex Female 1:34 AM MICROFICHE DUPLICATOR Gender Identity Female 07/01/2022 7:31 PM MICROFICHE DUPLICATOR Sexual Orientation Not on file Obstetrics History [...] Regular Well Visit/Exam 18-64 2009 Influenza Vaccine (Season Ended) 2025 04/26/2019, 04/06/2019, 07/13/2018, Additional history exists Depression Screening [...] CBC WITHOUT DIFFERENTIAL Routine 025 4:27 AM MICROFICHE DUPLICATOR CBC WITHOUT DIFFERENTIAL Routine 025 4:25 AM MICROFICHE DUPLICATOR TROPONIN T HIGH-SENSITIVITY 2-HOUR Timed 09/01/2024 5:11 PM MICROFICHE DUPLICATOR URINALYSIS AND REFLEX TO MICROSCOPIC AND CULTURE STAT 09/01/2024 4:58 PM MICROFICHE DUPLICATOR XR CHEST 1 VIEW ED 09/01/2024 3:05 PM MICROFICHE DUPLICATOR EGFR STAT 09/01/2024 2:59 PM MICROFICHE DUPLICATOR DIFFERENTIAL AUTO STAT 09/01/2024 2:5 9 PM MICROFICHE DUPLICATOR MAGNESIUM STAT 09/01/2024 2:59 PM MICROFICHE DUPLICATOR THYROID FUNCTION CASCADE STAT 025 2:59 PM MICROFICHE DUPLICATOR TROPONIN T HIGH-SENSITIVITY SERIES (BASELINE, 2HR, 4HR, 6HR) STAT 09/01/2024 2:59 PM MICROFICHE DUPLICATOR BASIC METABOLIC PANEL STAT 09/01/2024 2:59 PM MICROFICHE DUPLICATOR CBC WITH AUTO DIFFERENTIAL STAT 09/01/2024 2:59 PM MICROFICHE DUPLICATOR POCT HCG, URINE Routine 09/01/2024 2:28 PM MICROFICHE DUPLICATOR ECG 12-LEAD Routine 09/01/2024 1:54 PM MICROFICHE DUPLICATOR EGFR Routine 08/22/2024 7:57 AM MICROFICHE DUPLICATOR CBC WITHOUT DIFFERENTIAL Routine 025 7:57 AM MICROFICHE DUPLICATOR BASIC METABOLIC PANEL Routine 08/22/2024 7:57 AM MICROFICHE DUPLICATOR EGFR Routine 08/21/2024 7:53 AM MICROFICHE DUPLICATOR CBC WITHOUT DIFFERENTIAL Routine 025 7:53 AM MICROFICHE DUPLICATOR BASIC METABOLIC PANEL Routine 08/21/2024 7:53 AM MICROFICHE DUPLICATOR FL CLOSED TX TEMPOROMANDIBULAR DISLOCATION 1ST/SBSQ Routine 08/20/2024 1:18 PM MICROFICHE DUPLICATOR ED MODERATE SEDATION Routine 08/20/2024 1:18 PM MICROFICHE DUPLICATOR XR MANDIBLE LESS THAN 4 VIEWS Critical/Life- Threatening 08/20/2024 11:41 AM MICROFICHE DUPLICATOR SEPSIS LACTATE WITH REFLEX Timed 08/20/2024 8:24 AM MICROFICHE DUPLICATOR EGFR Routine 08/20/2024 3:25 AM MICROFICHE DUPLICATOR CBC WITHOUT DIFFERENTIAL Routine 025 3:25 AM MICROFICHE DUPLICATOR BASIC METABOLIC PANEL Routine 08/20/2024 3:25 AM MICROFICHE DUPLICATOR SEPSIS LACTATE WITH REFLEX Timed 08/20/2024 3:25 AM MICROFICHE DUPLICATOR ECG 12-LEAD Routine 08/20/2024 2:26 AM MICROFICHE DUPLICATOR SEPSIS LACTATE WITH REFLEX STAT 08/19/2024 8:52 PM MICROFICHE DUPLICATOR ECG 12-LEAD STAT 08/19/2024 8:25 PM MICROFICHE DUPLICATOR EGFR STAT 08/19/2024 8:20 PM MICROFICHE DUPLICATOR DIFFERENTIAL AUTO STAT 08/19/2024 8:2 0 PM MICROFICHE DUPLICATOR CBC WITH AUTO DIFFERENTIAL STAT 08/19/2024 8:20 PM MICROFICHE DUPLICATOR COMPREHENSIVE METABOLIC PANEL STAT 08/19/2024 8:20 PM MICROFICHE DUPLICATOR ED CRITICAL CARE Routine 08/19/2024 5:13 PM MICROFICHE DUPLICATOR from Last 3 Months Results * XR [...] 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 KH: GLADYS Report ID: [id number] Reading Location: [place] [address] us Simran Frank MD IMG XR PROCEDURES [...] was last reviewed 2021. Testing performed by: [facility], [address] [place] [address], [place]., [address] Blood 09/28/2024 8:10 PM CDT 09/28/2024 8:12 PM CDT us Simran Frank MD LAB BLOOD ORDERABLES Ruthy l Result [facility] [address] [facility] [place] [address] * (ABNORMAL) Differential, auto (09/28/2024 8:10 PM CDT) Neutrophil abs 12.9(H) 1.5 - 6.5 K/cumm Comment:Testing performed by : [address] [address] Imm gran abs 0.2(H) 0.0 - 0.1 K/cumm [facility] Comment:Testing performed by : [address] [address] Lymphocyte abs 3.9(H) 0.8 - 3.3 K/cumm [facility] Comment:Testing performed by : [address] [address] Monocyte abs 1.6(H) 0.2 - 0.8 K/cumm [facility] Comment:Testing performed by : [address] [address] Eosinophil abs 0.0 0.0 - 0.5 K/cumm [facility] Comment:Testing performed by : [address] [address] Basophil abs 0.0 0.0 - 0.1 K/cumm [facility] Comment:Testing performed by : [address] [address] Neutrophil pct 69.2 % [facility] Comment: Interpretive Data Percent cell count reference ranges are not reported, since discordance with absolute values may lead to misinterpretation of CBC data. Current Interpretive Data was last revised on 2017. Testing performed by: [address] [address] Imm gran pct 1.1 % [facility] Comment: Interpretive Data Percent cell count reference ranges are not reported, since discordance with absolute values may lead to misinterpretation of CBC data. Current Interpretive Data was last revised on 2017. Testing performed by: [address] [address] Lymphocyte pct 20.7 % [facility] Comment: Interpretive Data Percent cell count reference ranges are not reported, since discordance with absolute values may lead to misinterpretation of CBC data. Current Interpretive Data was last revised on 2017. Testing performed by: [address] [address] Monocyte pct 8.7 % [facility] Comment: Interpretive Data Percent cell count reference ranges are not reported, since discordance with absolute values may lead to misinterpretation of CBC data. Current Interpretive Data was last revised on 2017. Testing performed by: [address] [address] Eosinophil pct 0.1 % [facility] Comment: Interpretive Data Percent cell count reference ranges are not reported, since discordance with absolute values may lead to misinterpretation of CBC data. Current Interpretive Data was last revised on 2017. Testing performed by: [address] [address] Basophil pct 0.2 % [facility] Comment: Interpretive Data Percent cell count reference ranges are not reported, since discordance with absolute values may lead to misinterpretation of CBC data. Current Interpretive Data was last revised on 2017. Testing performed by: [address] [address] Blood 09/28/2024 8:10 PM CDT 09/28/2024 8:11 PM CDT Simran Frank MD LAB BLOOD ORDERABLES Ruthy l Result [facility] [address] [facility] [place] [address] * (ABNORMAL) CBC with auto differential (09/28/2024 8:10 PM CDT) [facility] WBC 18.6(H) 3.8 - 9.9 K/cumm Comment:Testing performed by : [address] [address] Hgb 11.3(L) 11.9 - 15.5 g/dL [facility] Comment:Testing performed by : [address], [address] Hct 36.0 35.6 - 45.5 % [facility] Comment:Testing performed by : [address] [address] Plt 601(H) 150 - 400 K/cumm [facility] Comment:Testing performed by : [address] [address] MPV 9.1 9.1 - 12.3 fL [facility] Comment:Testing performed by : [address], [address] RBC 4.56 3.90 - 5.20 M/cumm [facility] Comment:Testing performed by : [address] [address] MCV 78.9(L) 81.3 - 96.4 fL [facility] Comment:Testing performed by : [address] [address] MCH 24.8(L) 27.1 - 33.3 pg [facility] Comment:Testing performed by : [address] [address] MCHC 31.4(L) 32.3 - 35.7 g/dL [facility] Comment:Testing performed by : [address], [address] RDW CV 15.2(H) 11.1 - 14.9 % [facility] Comment:Testing performed by : [address], [address] RDW SD 43.6 35.7 - 48.1 fL [facility] Comment:Testing performed by : [address] [address] NRBC abs 0.03(H) 0.00 - 0.01 K/cumm [facility] Comment:Testing performed by : [address], [address] Blood 09/28/2024 8:10 PM CDT 09/28/2024 8:11 PM CDT Simran Frank MD LAB BLOOD ORDERABLES Ruthy trivedi Result [facility] [address] [facility] Department [place] [address] * (ABNORMAL) Comprehensive metabolic panel (09/28/2024 8:10 PM CDT) Sodium 142 135 - 145 mmol/L Comment:Testing performed by : [address] [address] Potassium, pl 3.2(L) 3.3 - 4.9 mmol/L [facility] Comment:Testing performed by : [address] [address] Chloride 103 97 - 110 mmol/L [facility] Comment:Testing performed by : [address] [address] CO2 23 22 - 32 mmol/L [facility] Comment:Testing performed by : [address] [address] Anion gap 16(H) 2 - 15 mmol/L [facility] Comment:Testing performed by : [address] [address] BUN 18 6 - 25 mg/dL [facility] Comment:Testing performed by : [address] [address] Creatinine 0.80 0.60 - 1.10 mg/dL [facility] Comment:Testing performed by : [address] [address] Glucose 108 70 - 199 mg/dL [facility] Comment: Interpretive Data Fasting glucose >/= [...] was last revised 2022. Testing performed by: [address] [address] Calcium 10.0 8.5 - 10.3 mg/dL [facility] Comment:Testing performed by : [address] [address] Bilirubin, total <0.2 0.1 - 1.2 mg/dL [facility] Comment:Testing performed by : [address] [address] Protein, pl 7.4 6.5 - 8.5 g/dL [facility] Comment:Testing performed by : [address] [address] Albumin 4.4 3.5 - 5.0 g/dL [facility] Comment:Testing performed by : [address] [address] Alk phos 77 40 - 130 Units/L [facility] Comment:Testing performed by : [address] [address] ALT 28 7 - 45 Units/L [facility] Comment:Testing performed by : [address] [address] AST 22 10 - 45 Units/L [facility] Comment:Testing performed by : [address] [address] Blood 09/28/2024 8:10 PM CDT 09/28/2024 8:12 PM CDT Simran Frank MD LAB BLOOD ORDERABLES Ruthy trivedi Result [facility] [address] [facility] Department of Laboratories [place], [place] [id number] * ECG 12 lead (09/28/2024 8:02 PM CDT) Ventricular Rate EKG/Min 151 BPM [facility] Atrial Rate 151 BPM [facility] FL-Interval (MSEC) 104 ms [facility] QRS-Interval (MSEC) 90 ms [facility] QT-Interval (MSEC) 336 ms [facility] QTc 532 ms [facility] P [place] 37 degrees [facility] R [place] 40 degrees [facility] T [place] 53 degrees [facility] Diagnosis Sinus tachycardia with short FL RSR' or QR pattern in V1 suggests right ventricular conduction delay Abnormal ECG When compared with ECG of 23-SEP-2024 16:46, No significant change Confirmed by BELIA CHU M.D. ([id number]) on 09/29/2024 11:02:24 PM [facility] 09/28/2024 8:02 PM CDT 09/29/2024 11:02 PM CDT us Simran Frank MD ECG ORDERABLES Final Res ult Performing Organization Address City/[facility] Co de Phone Number [facility] * eGFR (09/27/2024 2:58 AM CDT) eGFR [...] was last reviewed 2021. Testing performed by: [facility], [address] [place] [address], [place]., [address] Blood 09/27/2024 2:58 AM CDT 09/27/2024 3:03 AM CDT us Ferdinand Rivera DO LAB BLOOD ORDERABLES Final Res ult [facility] [address] [facility] Department [place] [address] * (ABNORMAL) Differential, auto (09/27/2024 2:58 AM CDT) Neutrophil abs 13.2(H) 1.5 - 6.5 K/cumm Comment:Testing performed by : [address] [address] Imm gran abs 0.1 0.0 - 0.1 K/cumm [facility] Comment:Testing performed by : [address] [address] Lymphocyte abs 1.7 0.8 - 3.3 K/cumm [facility] Comment:Testing performed by : [address] [address] Monocyte abs 1.0(H) 0.2 - 0.8 K/cumm [facility] Comment:Testing performed by : [address] [address] Eosinophil abs 0.0 0.0 - 0.5 K/cumm [facility] Comment:Testing performed by : [address] [address] Basophil abs 0.0 0.0 - 0.1 K/cumm [facility] Comment:Testing performed by : [address] [address] Neutrophil pct 82.5 % [facility] Comment: Interpretive Data Percent cell count reference ranges are not reported, since discordance with absolute values may lead to misinterpretation of CBC data. Current Interpretive Data was last revised on 2017. Testing performed by: [address] [address] Imm gran pct 0.8 % [facility] Comment: Interpretive Data Percent cell count reference ranges are not reported, since discordance with absolute values may lead to misinterpretation of CBC data. Current Interpretive Data was last revised on 2017. Testing performed by: [address] [address] Lymphocyte pct 10.4 % [facility] Comment: Interpretive Data Percent cell count reference ranges are not reported, since discordance with absolute values may lead to misinterpretation of CBC data. Current Interpretive Data was last revised on 2017. Testing performed by: [address] [address] Monocyte pct 6.2 % [facility] Comment: Interpretive Data Percent cell count reference ranges are not reported, since discordance with absolute values may lead to misinterpretation of CBC data. Current Interpretive Data was last revised on 2017. Testing performed by: [address] [address] Eosinophil pct 0.0 % [facility] Comment: Interpretive Data Percent cell count reference ranges are not reported, since discordance with absolute values may lead to misinterpretation of CBC data. Current Interpretive Data was last revised on 2017. Testing performed by: [address] [address] Basophil pct 0.1 % [facility] Comment: Interpretive Data Percent cell count reference ranges are not reported, since discordance with absolute values may lead to misinterpretation of CBC data. Current Interpretive Data was last revised on 2017. Testing performed by: [address] [address] Blood 09/27/2024 2:58 AM CDT 09/27/2024 3:03 AM CDT us Ferdinand Rivera DO LAB BLOOD ORDERABLES Final Res ult [facility] [address] [facility] Department of Laboratories [place], [place] [id number] * (ABNORMAL) CBC with auto differential (09/27/2024 2:58 AM CDT) WBC 15.9(H) 3.8 - 9.9 K/cumm Comment:Testing performed by : [address] [address] Hgb 11.3(L) 11.9 - 15.5 g/dL [facility] [place] Comment:Testing performed by : [address] [address] Hct 36.7 35.6 - 45.5 % [facility] Comment:Testing performed by : [address] [address] Plt 532(H) 150 - 400 K/cumm [facility] Comment:Testing performed by : [address] [address] MPV 9.2 9.1 - 12.3 fL [facility] Comment:Testing performed by : [address], [address] RBC 4.50 3.90 - 5.20 M/cumm [facility] Comment:Testing performed by : [address], [address] MCV 81.6 81.3 - 96.4 fL [facility] Comment:Testing performed by : [address] [address] MCH 25.1(L) 27.1 - 33.3 pg [facility] Comment:Testing performed by : [address] [address] MCHC 30.8(L) 32.3 - 35.7 g/dL [facility] Comment:Testing performed by : [address], [address] RDW CV 15.4(H) 11.1 - 14.9 % [facility] Comment:Testing performed by : [address], [address] RDW SD 45.1 35.7 - 48.1 fL [facility] Comment:Testing performed by : [address], [address] NRBC abs 0.00 0.00 - 0.01 K/cumm [facility] Comment:Testing performed by : [address], [address] Blood 09/27/2024 2:58 AM CDT 09/27/2024 3:03 AM CDT us Ferdinand Rivera DO LAB BLOOD ORDERABLES Final Res ult [facility] [address] [facility] Department [place] [address] * Comprehensive metabolic panel (09/27/2024 2:58 AM CDT) Sodium 140 135 - 145 mmol/L Comment:Testing performed by : [address] [address] Potassium, pl 3.8 3.3 - 4.9 mmol/L [facility] Comment:Testing performed by : [address], [place]., [address] Chloride 103 97 - 110 mmol/L [facility] Comment:Testing performed by : [address], [place]., [address] CO2 23 22 - 32 mmol/L [facility] Comment:Testing performed by : [address] [address] Anion gap 14 2 - 15 mmol/L [facility] Comment:Testing performed by : [address] [address] BUN 11 6 - 25 mg/dL [facility] Comment:Testing performed by : [address] [address] Creatinine 0.66 0.60 - 1.10 mg/dL [facility] Comment:Testing performed by : [address] [address] Glucose 154 70 - 199 mg/dL [facility] [...] was last revised 2022. Testing performed by: [address] [address] Calcium 10.3 8.5 - 10.3 mg/dL [facility] Comment:Testing performed by : [address] [address] Bilirubin, total <0.2 0.1 - 1.2 mg/dL [facility] Comment:Testing performed by : [address] [address] Protein, pl 7.8 6.5 - 8.5 g/dL [facility] Comment:Testing performed by : [address] [address] Albumin 4.5 3.5 - 5.0 g/dL [facility] Comment:Testing performed by : [address], [place]., [address] Alk phos 85 40 - 130 Units/L [facility] Comment:Testing performed by : [address] [address] ALT 25 7 - 45 Units/L [facility] Comment:Testing performed by : [address] [address] AST 15 10 - 45 Units/L [facility] Comment:Testing performed by : [address] [address] Blood 09/27/2024 2:58 AM CDT 09/27/2024 3:03 AM CDT us Ferdinand Rivera DO LAB BLOOD ORDERABLES Final Res ult [facility] [address] [facility] Department of Laboratories [place], [place] [id number] * eGFR (09/24/2024 3:43 AM CDT) eGFR [...] was last reviewed 2021. Testing performed by: [address] [address] Blood 09/24/2024 3:43 AM CDT 09/24/2024 4:47 AM CDT us Dariela Cortez NP LAB BLOOD ORDERABLES Final R esult [facility] Department of Laboratories [place], [place] [id number] * (ABNORMAL) Differential, auto (09/24/2024 3:43 AM CDT) Neutrophil abs 9.1(H) 1.5 - 6.5 K/cumm Comment:Testing performed by : [address] [address] Imm gran abs 0.0 0.0 - 0.1 K/cumm [facility] Comment:Testing performed by : [address] [address] Lymphocyte abs 0.7(L) 0.8 - 3.3 K/cumm [facility] Comment:Testing performed by : [address] [address] Monocyte abs 0.3 0.2 - 0.8 K/cumm [facility] Comment:Testing performed by : [address] [address] Eosinophil abs 0.0 0.0 - 0.5 K/cumm [facility] Comment:Testing performed by : [address] [address] Basophil abs 0.0 0.0 - 0.1 K/cumm [facility] Comment:Testing performed by : [address] [address] Neutrophil pct 89.5 % [facility] Comment: Interpretive Data Percent cell count reference ranges are not reported, since discordance with absolute values may lead to misinterpretation of CBC data. Current Interpretive Data was last revised on 2017. Testing performed by: [address] [address] Imm gran pct 0.3 % [facility] Comment: Interpretive Data Percent cell count reference ranges are not reported, since discordance with absolute values may lead to misinterpretation of CBC data. Current Interpretive Data was last revised on 2017. Testing performed by: [address] [address] Lymphocyte pct 6.9 % [facility] Comment: Interpretive Data Percent cell count reference ranges are not reported, since discordance with absolute values may lead to misinterpretation of CBC data. Current Interpretive Data was last revised on 2017. Testing performed by: [address] [address] Monocyte pct 3.1 % [facility] Comment: Interpretive Data Percent cell count reference ranges are not reported, since discordance with absolute values may lead to misinterpretation of CBC data. Current Interpretive Data was last revised on 2017. Testing performed by: [address] [address] Eosinophil pct 0.0 % [facility] Comment: Interpretive Data Percent cell count reference ranges are not reported, since discordance with absolute values may lead to misinterpretation of CBC data. Current Interpretive Data was last revised on 2017. Testing performed by: [address] [address] Basophil pct 0.2 % [facility] Comment: Interpretive Data Percent cell count reference ranges are not reported, since discordance with absolute values may lead to misinterpretation of CBC data. Current Interpretive Data was last revised on 2017. Testing performed by: [address] [address] Blood 09/24/2024 3:43 AM CDT 09/24/2024 4:50 AM CDT us Dariela Cortez NP LAB BLOOD ORDERABLES Final R esult [facility] [address] [facility] [place] [address] * (ABNORMAL) CBC with auto differential (09/24/2024 3:43 AM CDT) WBC 10.2(H) 3.8 - 9.9 K/cumm Comment:Testing performed by : [address] [address] Hgb 10.5(L) 11.9 - 15.5 g/dL [facility] Comment:Testing performed by : [address] [address] Hct 34.2(L) 35.6 - 45.5 % [facility] Comment:Testing performed by : [address] [address] Plt 418(H) 150 - 400 K/cumm [facility] Comment:Testing performed by : [address] [address] MPV 9.7 9.1 - 12.3 fL [facility] Comment:Testing performed by : [address] [address] RBC 4.17 3.90 - 5.20 M/cumm [facility] Comment:Testing performed by : [address] [address] MCV 82.0 81.3 - 96.4 fL [facility] Comment:Testing performed by : [address] [address] MCH 25.2(L) 27.1 - 33.3 pg [facility] Comment:Testing performed by : [address] [address] MCHC 30.7(L) 32.3 - 35.7 g/dL [facility] Comment:Testing performed by : [address], [address] RDW CV 15.6(H) 11.1 - 14.9 % [facility] Comment:Testing performed by : [address] [address] RDW SD 46.4 35.7 - 48.1 fL [facility] Comment:Testing performed by : [address] [address] NRBC abs 0.00 0.00 - 0.01 K/cumm [facility] Comment:Testing performed by : [address] [address] Blood 09/24/2024 3:43 AM CDT 09/24/2024 4:50 AM CDT us Dariela Cortez NP LAB BLOOD ORDERABLES Final R esult Performing Organization Address City/State/[facility] Co de Phone Number [facility] Department [place] [address] * (ABNORMAL) Basic metabolic panel (09/24/2024 3:43 AM CDT) Sodium 138 135 - 145 mmol/L Comment:Testing performed by : [address] [address] Potassium, pl 4.2 3.3 - 4.9 mmol/L [facility] Comment:Testing performed by : [address] [address] Chloride 107 97 - 110 mmol/L [facility] Comment:Testing performed by : [address] [address] CO2 21(L) 22 - 32 mmol/L [facility] Comment:Testing performed by : [address] [address] Anion gap 10 2 - 15 mmol/L [facility] Comment:Testing performed by : [address] [address] BUN 10 6 - 25 mg/dL [facility] Comment:Testing performed by : [address] [address] Creatinine 0.71 0.60 - 1.10 mg/dL [facility] Comment:Testing performed by : [address] [address] Glucose 145 70 - 199 mg/dL [facility] [...] was last revised 2022. Testing performed by: [address] [address] Calcium 9.7 8.5 - 10.3 mg/dL [facility] Comment:Testing performed by : [address] [address] Blood 09/24/2024 3:43 AM CDT 09/24/2024 4:47 AM CDT Dariela Cortez NP LAB BLOOD ORDERABLES Final R esult Performing Organization Address City/State/[facility] Co de Phone Number [facility] [address] [facility] Department [place] [address] * XR Mandible 4 or More Views [...] signed by Arnold GRAHAM: GLADYS Report ID: [id number] Reading Location: [place] [address] Procedure Note Arnold Chahal MD - 09/23/2024 [...] Arnold Chahal M.D. KH: GLADYS Report ID: [id number] Reading Location: [place] [address] Darian Goode MD IMG XR PROCEDURES Fi [...] Arnold Chahal M.D. KH: GLADYS Report ID: [id number] Reading Location: [id number] Procedure Note Arnold Chahal MD - 09/23/2024 [...] Arnold Chahal M.D. KH: KH Report ID: [id number] Reading Location: [id number] us Jorje Huynh MD IMG XR PROCEDURES [...] López Mcclellan M.D. MM: MM Report ID: [id number] Reading Location: [id number] Procedure Note López Mcclellan MD - 09/23/2024 [...] López Mcclellan M.D. MM: MM Report ID: [id number] Reading Location: [place] [address] Samuel Bowen MD IMG XR PROCEDURES F inal Result * ECG 12 lead (09/23/2024 4:46 PM CDT) Ventricular Rate EKG/Min [address] [facility] Atrial Rate 292 BPM [facility] QRS-Interval (MSEC) 98 ms [facility] QT-Interval (MSEC) 350 ms [facility] QTc 545 ms [facility] R [place] 58 degrees [facility] T [place] 50 degrees [facility] Diagnosis Sinus tachycardia Incomplete right bundle branch block T-wave changes When compared with ECG of 01-SEP-2024 13:54, No significant change Confirmed by SULTAN ZUNIGA M.D. ([id number]) on 09/23/2024 9:49:04 PM [facility] 09/23/2024 4:46 PM CDT 09/23/2024 9:49 PM CDT Samuel Bowen MD ECG ORDERABLES Fin al Result [facility] * eGFR (09/23/2024 4:27 PM CDT) [...] was last reviewed 2021. Testing performed by: [address] [address] Blood 09/23/2024 4:27 PM CDT 09/23/2024 4:39 PM CDT us Deisy MARQUEZ LAB BLOOD ORDERABLES Final Resu lt [facility] [address] [facility] Department [place] [address] * (ABNORMAL) Differential, auto (09/23/2024 4:27 PM CDT) Neutrophil abs 7.2(H) 1.5 - 6.5 K/cumm Comment:Testing performed by : [address] [address] Imm gran abs 0.0 0.0 - 0.1 K/cumm [facility] Comment:Testing performed by : [address] [address] Lymphocyte abs 2.4 0.8 - 3.3 K/cumm [facility] Comment:Testing performed by : [address] [address] Monocyte abs 0.8 0.2 - 0.8 K/cumm [facility] Comment:Testing performed by : [address] [address] Eosinophil abs 0.1 0.0 - 0.5 K/cumm [facility] Comment:Testing performed by : [address] [address] Basophil abs 0.1 0.0 - 0.1 K/cumm [facility] Comment:Testing performed by : [address] [address] Neutrophil pct 68.6 % [facility] Comment: Interpretive Data Percent cell count reference ranges are not reported, since discordance with absolute values may lead to misinterpretation of CBC data. Current Interpretive Data was last revised on 2017. Testing performed by: [address] [address] Imm gran pct 0.4 % [facility] Comment: Interpretive Data Percent cell count reference ranges are not reported, since discordance with absolute values may lead to misinterpretation of CBC data. Current Interpretive Data was last revised on 2017. Testing performed by: [address] [address] Lymphocyte pct 22.5 % [facility] Comment: Interpretive Data Percent cell count reference ranges are not reported, since discordance with absolute values may lead to misinterpretation of CBC data. Current Interpretive Data was last revised on 2017. Testing performed by: [address] [address] Monocyte pct 7.1 % [facility] Comment: Interpretive Data Percent cell count reference ranges are not reported, since discordance with absolute values may lead to misinterpretation of CBC data. Current Interpretive Data was last revised on 2017. Testing performed by: [address] [address] Eosinophil pct 0.7 % [facility] Comment: Interpretive Data Percent cell count reference ranges are not reported, since discordance with absolute values may lead to misinterpretation of CBC data. Current Interpretive Data was last revised on 2017. Testing performed by: [address] [address] Basophil pct 0.7 % [facility] Comment: Interpretive Data Percent cell count reference ranges are not reported, since discordance with absolute values may lead to misinterpretation of CBC data. Current Interpretive Data was last revised on 2017. Testing performed by: [address] [address] Blood 09/23/2024 4:27 PM CDT 09/23/2024 4:39 PM CDT us Samuel Bowen MD LAB BLOOD ORDERABLE S Final Result [facility] [address] [facility] Department [place] [address] * (ABNORMAL) CBC with auto differential (09/23/2024 4:27 PM CDT) WBC 10.5(H) 3.8 - 9.9 K/cumm Comment:Testing performed by : [address] [address] Hgb 11.9 11.9 - 15.5 g/dL [facility] Comment:Testing performed by : [address] [address] Hct 40.4 35.6 - 45.5 % [facility] Comment:Testing performed by : [address] [address] Plt 517(H) 150 - 400 K/cumm [facility] Comment:Testing performed by : [address] [address] MPV 9.3 9.1 - 12.3 fL [facility] Comment:Testing performed by : [address] [address] RBC 4.93 3.90 - 5.20 M/cumm [facility] Comment:Testing performed by : [address] [address] MCV 81.9 81.3 - 96.4 fL [facility] Comment:Testing performed by : [address] [address] MCH 24.1(L) 27.1 - 33.3 pg [facility] Comment:Testing performed by : [address] [address] MCHC 29.5(L) 32.3 - 35.7 g/dL [facility] Comment:Testing performed by : [address] [address] RDW CV 15.6(H) 11.1 - 14.9 % [facility] Comment:Testing performed by : [address] [address] RDW SD 46.5 35.7 - 48.1 fL [facility] Comment:Testing performed by : [address] [address] NRBC abs 0.00 0.00 - 0.01 K/cumm [facility] Comment:Testing performed by : [address] [address] Blood 09/23/2024 4:27 PM CDT 09/23/2024 4:39 PM CDT us Samuel Bowen MD LAB BLOOD ORDERABLE S Final Result [facility]0 [facility] Department [place] [address] * Comprehensive metabolic panel (09/23/2024 4:27 PM CDT) Sodium 141 135 - 145 mmol/L Comment:Testing performed by : [address] [address] Potassium, pl 3.3 3.3 - 4.9 mmol/L [facility] Comment:Testing performed by : [address] [address] Chloride 104 97 - 110 mmol/L [facility] Comment:Testing performed by : [address] [address] CO2 22 22 - 32 mmol/L [facility] Comment:Testing performed by : [address] [address] Anion gap 15 2 - 15 mmol/L [facility] Comment:Testing performed by : [address] [address] BUN 11 6 - 25 mg/dL [facility] Comment:Testing performed by : [address] [address] Creatinine 0.89 0.60 - 1.10 mg/dL [facility] Comment:Testing performed by : [address] [address] Glucose 153 70 - 199 mg/dL [facility] [...] was last revised 2022. Testing performed by: [address] [address] Calcium 9.9 8.5 - 10.3 mg/dL [facility] Comment:Testing performed by : [address] [address] Bilirubin, total <0.2 0.1 - 1.2 mg/dL [facility] Comment:Testing performed by : [address] [address] Protein, pl 8.0 6.5 - 8.5 g/dL [facility] Comment:Testing performed by : [address] [address] Albumin 4.6 3.5 - 5.0 g/dL [facility] Comment:Testing performed by : [address] [address] Alk phos 84 40 - 130 Units/L [facility] Comment:Testing performed by : [address] [address] ALT 42 7 - 45 Units/L [facility] Comment:Testing performed by : [address] [address] AST 27 10 - 45 Units/L [facility] Comment:Testing performed by : [address] [address] Blood 09/23/2024 4:27 PM CDT 09/23/2024 4:39 PM CDT us Samuel Bowen MD LAB BLOOD ORDERABLE S Final Result [facility] [address] [facility] Department [place] [address] * (ABNORMAL) CBC without differential (09/05/2024 4:27 AM MICROFICHE DUPLICATOR) WBC 14.9(H) 3.8 - 9.9 K/cumm Comment:Testing performed by : [address] [address] Hgb 10.8(L) 11.9 - 15.5 g/dL [facility] Comment:Testing performed by : [address] [address] Hct 35.6 35.6 - 45.5 % [facility] Comment:Testing performed by : [address] [address] Plt 414(H) 150 - 400 K/cumm [facility] Comment:Testing performed by : [address] [address] MPV 9.4 9.1 - 12.3 fL [facility] Comment:Testing performed by : [address] [address] RBC 4.35 3.90 - 5.20 M/cumm [facility] Comment:Testing performed by : [address] [address] MCV 81.8 81.3 - 96.4 fL [facility] Comment:Testing performed by : [address] [address] MCH 24.8(L) 27.1 - 33.3 pg [facility] Comment:Testing performed by : [address] [address] MCHC 30.3(L) 32.3 - 35.7 g/dL [facility] Comment:Testing performed by : [address] [address] RDW CV 15.4(H) 11.1 - 14.9 % [facility] Comment:Testing performed by : [address] [address] RDW SD 46.2 35.7 - 48.1 fL [facility] Comment:Testing performed by : [address] [address] NRBC abs 0.00 0.00 - 0.01 K/cumm [facility] Comment:Testing performed by : [address] [address] Blood 09/05/2024 4:27 AM MICROFICHE DUPLICATOR 09/05/2024 5:03 AM MICROFICHE DUPLICATOR Venkat Rudd MD LAB BLOOD ORDERABLES Fi nal Result [facility] Department [place] [address] * (ABNORMAL) CBC without differential (09/04/2024 4:25 AM MICROFICHE DUPLICATOR) WBC 14.5(H) 3.8 - 9.9 K/cumm Comment:Testing performed by : [address] [address] Hgb 10.5(L) 11.9 - 15.5 g/dL [facility] Comment:Testing performed by : [address] [address] Hct 35.4(L) 35.6 - 45.5 % [facility] Comment:Testing performed by : [address] [address] Plt 392 150 - 400 K/cumm [facility] Comment:Testing performed by : [address] [address] MPV 9.2 9.1 - 12.3 fL [facility] Comment:Testing performed by : [address] [address] RBC 4.27 3.90 - 5.20 M/cumm [facility] Comment:Testing performed by : [address] [address] MCV 82.9 81.3 - 96.4 fL [facility] Comment:Testing performed by : [address] [address] MCH 24.6(L) 27.1 - 33.3 pg [facility] Comment:Testing performed by : [address] [address] MCHC 29.7(L) 32.3 - 35.7 g/dL [facility] Comment:Testing performed by : [address] [address] RDW CV 15.6(H) 11.1 - 14.9 % [facility] Comment:Testing performed by : [address] [address] RDW SD 47.6 35.7 - 48.1 fL [facility] Comment:Testing performed by : [address] [address] NRBC abs 0.00 0.00 - 0.01 K/cumm [facility] Comment:Testing performed by : [address] [address] Blood 09/04/2024 4:25 AM MICROFICHE DUPLICATOR 09/04/2024 4:41 AM MICROFICHE DUPLICATOR us Venkat Rudd MD LAB BLOOD ORDERABLES Fi nal Result [facility] [address] [facility] Department of Laboratories [place], [place] [id number] * Troponin T high-sensitivity 2-hour (09/01/2024 5:11 PM MICROFICHE DUPLICATOR) Trop T hs <6 <=14 ng/L Comment: Interpretive Data For further hscTnT resources including the diagnostic algorithm and an aid in interpretation, copy and paste this link: https://nrl.testcatalog.org/show/hsTrop Current Interpretive Data last revised 2020. Testing performed by: [address] [address] Trop T hs delta 0 ng/L [facility] Comment:Testing performed by : [address] [address] Trop T hs interp Insignificant [facility] Comment:Testing performed by : [address] [address] Blood 09/01/2024 5:11 PM MICROFICHE DUPLICATOR 09/01/2024 5:14 PM MICROFICHE DUPLICATOR us Wil Monteiro MD LAB BLOOD ORDERABLE S Final Result [facility] [address] [facility] Department of Laboratories [place], [place] [id number] * Urinalysis reflex to microscopic and culture Urine (09/01/2024 4:58 PM MICROFICHE DUPLICATOR) Color, ur Yellow Yellow Comment:Testing performed by : [address] [address] Clarity, ur Clear Clear [facility] Comment:Testing performed by : [address] [address] Specific gravity, ur 1.015 1.003 - 1.030 [facility] Comment:Testing performed by : [address] [address] pH, urine 7.0 [facility] Comment: Interpretive Data U rine pH is affected by diet, medications, systemic acid-base disturbances, and renal tubular function. pH may affect urinary stone formation. For example, urine pH below 6.0 may help reduce the tendency for calcium phosphate stones and pH greater than 6.0 may reduce the tendency for uric acid stone formation. Source: [facility] [employer] Current Interpretive Data was last revised on 2017 Testing performed by: [address] [address] Protein, ur ql Negative Negative [facility] Comment:Testing performed by : [address] [address] Glucose, ur ql Negative Negative [facility] Comment:Testing performed by : [address] [address] Ketones, ur Negative Negative [facility] Comment:Testing performed by : [facility], [address] [place] [address]., [address] Bilirubin, ur Negative Negative [facility] Comment:Testing performed by : [address], [place]., [address] Blood, ur Negative Negative [facility] Comment:Testing performed by : [address], [place]., [address] Urobilinogen, ur <2.0 <2.0 mg/dL [facility] Comment:Testing performed by : [address], [place]., [address] Nitrite, ur Negative Negative [facility] Comment:Testing performed by : [address], [place]., [address] Leukocyte esterase, ur Negative Negative [facility] Comment:Testing performed by : [address], [place]., [address] UA reflex comment Reflex conditions for microscopic UA and culture not met. [facility] Comment:Testing performed by : [address], [place]., [address] Urine 09/01/2024 4:58 PM MICROFICHE DUPLICATOR 09/01/2024 4:59 PM MICROFICHE DUPLICATOR Wil Monteiro MD LAB MICROBIOLOGY - GENERAL ORDERABLES Final Result [facility] [address] [facility] [place] [address] * XR Chest 1 Vw Portable (09/01/2024 3:05 PM MICROFICHE DUPLICATOR) Anatomical Region Laterality Modality Body, Chest N/A Computed Radiogr aphy 09/01/2024 3:19 PM MICROFICHE DUPLICATOR Narrative 09/01/2024 3:22 PM MICROFICHE DUPLICATOR EXAM DESCRIPTION: XR CHEST 1 VIEW REASON FOR STUDY: allergic reaction Came to ED s/p anaphylactic reaction. Reports ate at [facility] broke out in hives and started [...] Robi Arreola M.D. MZ: MZ Report ID: [id number] Reading Location: [place] [address] Procedure Note Robi Arreola MD - 09/01/2024 EXAM DESCRIPTION: XR CHEST 1 VIEW REASON FOR STUDY: allergic reaction Came to ED s/p anaphylactic reaction. Reports ate at [facility] broke outin hives and started having tongue [...] Robi Arreola M.D. MZ: MZ Report ID: [id number] Reading Location: [place] [address] Wil Monteiro MD IMG XR PROCEDURES F inal Result * Troponin T high-sensitivity series (baseline, 2hr, 4hr, 6hr) (09/01/2024 2:59 PM MICROFICHE DUPLICATOR) Trop T hs <6 <=14 ng/L Comment: Interpretive Data For further hscTnT resources including the diagnostic algorithm and an aid in interpretation, copy and paste this link: https://nrl.testcatalog.org/show/hsTrop Current Interpretive Data last revised 2020. Testing performed by: [facility], [address] [place] [address]., [address] Blood 09/01/2024 2:59 PM MICROFICHE DUPLICATOR 09/01/2024 3:03 PM MICROFICHE DUPLICATOR us Wil Monteiro MD LAB BLOOD ORDERABLE S Final Result [place] [id number] [facility] Department [place] [address] * eGFR (09/01/2024 2:59 PM MICROFICHE DUPLICATOR) eGFR >90 >=60 mL/min/1. 73 m2 Comment: [...] was last reviewed 2021. Testing performed by: [facility], [address] [place] [address]., [address] Blood 09/01/2024 2:59 PM MICROFICHE DUPLICATOR 09/01/2024 3:03 PM MICROFICHE DUPLICATOR us Wil Monteiro MD LAB BLOOD ORDERABLE S Final Result [facility] [address] [facility] Department [place] [address] * (ABNORMAL) Differential, auto (09/01/2024 2:59 PM MICROFICHE DUPLICATOR) Neutrophil abs 14.4(H) 1.5 - 6.5 K/cumm Comment:Testing performed by : [address] [address] Imm gran abs 0.2(H) 0.0 - 0.1 K/cumm [facility] Comment:Testing performed by : [address] [address] Lymphocyte abs 1.4 0.8 - 3.3 K/cumm [facility] Comment:Testing performed by : [address] [address] Monocyte abs 0.4 0.2 - 0.8 K/cumm [facility] Comment:Testing performed by : [address] [address] Eosinophil abs 0.0 0.0 - 0.5 K/cumm [facility] Comment:Testing performed by : [address] [address] Basophil abs 0.1 0.0 - 0.1 K/cumm [facility] Comment:Testing performed by : [address] [address] Neutrophil pct 87.3 % [facility] Comment: Interpretive Data Percent cell count reference ranges are not reported, since discordance with absolute values may lead to misinterpretation of CBC data. Current Interpretive Data was last revised on 2017. Testing performed by: [address] [address] Imm gran pct 0.9 % [facility] Comment: Interpretive Data Percent cell count reference ranges are not reported, since discordance with absolute values may lead to misinterpretation of CBC data. Current Interpretive Data was last revised on 2017. Testing performed by: [address] [address] Lymphocyte pct 8.7 % [facility] Comment: Interpretive Data Percent cell count reference ranges are not reported, since discordance with absolute values may lead to misinterpretation of CBC data. Current Interpretive Data was last revised on 2017. Testing performed by: [address] [address] Monocyte pct 2.7 % [facility] Comment: Interpretive Data Percent cell count reference ranges are not reported, since discordance with absolute values may lead to misinterpretation of CBC data. Current Interpretive Data was last revised on 2017. Testing performed by: [address] [address] Eosinophil pct 0.1 % [facility] Comment: Interpretive Data Percent cell count reference ranges are not reported, since discordance with absolute values may lead to misinterpretation of CBC data. Current Interpretive Data was last revised on 2017. Testing performed by: [address] [address] Basophil pct 0.3 % [facility] Comment: Interpretive Data Percent cell count reference ranges are not reported, since discordance with absolute values may lead to misinterpretation of CBC data. Current Interpretive Data was last revised on 2017. Testing performed by: [address] [address] Blood 09/01/2024 2:59 PM MICROFICHE DUPLICATOR 09/01/2024 3:03 PM MICROFICHE DUPLICATOR us Wil Monteiro MD LAB BLOOD ORDERABLE S Final Result [facility] [address] [facility] [place] [address] * Thyroid Function Lafe (09/01/2024 2:59 PM MICROFICHE DUPLICATOR) TSH 0.80 0.30 - 4.20 mcIUnit/mL Comment:Testing performed by : [address] [address] Blood 09/01/2024 2:59 PM MICROFICHE DUPLICATOR 09/01/2024 3:03 PM MICROFICHE DUPLICATOR us Wil Monteiro MD LAB BLOOD ORDERABLE S Final Result [facility] [address] [facility] [place] [address] * (ABNORMAL) CBC with auto differential (09/01/2024 2:59 PM MICROFICHE DUPLICATOR) WBC 16.5(H) 3.8 - 9.9 K/cumm Comment:Testing performed by : [address] [address] Hgb 11.3(L) 11.9 - 15.5 g/dL [facility] Comment:Testing performed by : [address] [address] Hct 36.4 35.6 - 45.5 % [facility] Comment:Testing performed by : [address] [address] Plt 465(H) 150 - 400 K/cumm [facility] Comment:Testing performed by : [address] [address] MPV 9.0(L) 9.1 - 12.3 fL [facility] Comment:Testing performed by : [address] [address] RBC 4.54 3.90 - 5.20 M/cumm [facility] Comment:Testing performed by : [address] [address] MCV 80.2(L) 81.3 - 96.4 fL [facility] Comment:Testing performed by : [address] [address] MCH 24.9(L) 27.1 - 33.3 pg [facility] Comment:Testing performed by : [address] [address] MCHC 31.0(L) 32.3 - 35.7 g/dL [facility] Comment:Testing performed by : [address] [address] RDW CV 15.1(H) 11.1 - 14.9 % [facility] Comment:Testing performed by : [address] [address] RDW SD 44.1 35.7 - 48.1 fL [facility] Comment:Testing performed by : [address] [address] NRBC abs 0.00 0.00 - 0.01 K/cumm [facility] Comment:Testing performed by : [address] [address] Blood 09/01/2024 2:59 PM MICROFICHE DUPLICATOR 09/01/2024 3:03 PM MICROFICHE DUPLICATOR us Wil Monteiro MD LAB BLOOD ORDERABLE S Final Result Performing Organization Address [facility] Co de Phone Number [address] [place] [address] * Magnesium (09/01/2024 2:59 PM MICROFICHE DUPLICATOR) Pathologist [facility] Magnesium 2.0 1.4 - 2.5 mg/dL Comment:Testing performed by : [address] [address] Blood 09/01/2024 2:59 PM MICROFICHE DUPLICATOR 09/01/2024 3:03 PM MICROFICHE DUPLICATOR Wil Monteiro MD LAB BLOOD ORDERABLE S Final Result Performing Organization Address City/[facility] Co de Phone Number [address] [place] [address] * Basic metabolic panel (09/01/2024 2:59 PM MICROFICHE DUPLICATOR) Sodium 140 135 - 145 mmol/L Comment:Testing performed by : [address] [address] Potassium, pl 4.0 3.3 - 4.9 mmol/L [facility] Comment:Testing performed by : [address] [address] Chloride 103 97 - 110 mmol/L [facility] Comment:Testing performed by : [address], [place]., [address] CO2 23 22 - 32 mmol/L [facility] Comment:Testing performed by : [address] [address] Anion gap 14 2 - 15 mmol/L [facility] Comment:Testing performed by : [address], [place]., [address] BUN 17 6 - 25 mg/dL [facility] Comment:Testing performed by : [address] [address] Creatinine 0.68 0.60 - 1.10 mg/dL [facility] Comment:Testing performed by : [address] [address] Glucose 147 70 - 199 mg/dL [facility] [...] was last revised 2022. Testing performed by: [address] [address] Calcium 9.3 8.5 - 10.3 mg/dL [facility] Comment:Testing performed by : [address] [address] Blood 09/01/2024 2:59 PM MICROFICHE DUPLICATOR 09/01/2024 3:03 PM MICROFICHE DUPLICATOR Wil Monteiro MD LAB BLOOD ORDERABLE S Final Result [facility] [address] [facility] [place] [address] * POCT hCG, urine (09/01/2024 2:28 PM MICROFICHE DUPLICATOR) Pathologist [facility] HCG, ur, POC Negative Negative Lot Number [id number] QC Backgroud Clear Acceptable QC Control Line Acceptable Urine 09/01/2024 2:28 PM MICROFICHE DUPLICATOR Wil Monteiro MD POINT OF CARE TEST ORDERABLES Final Result * ECG 12 lead (09/01/2024 1:54 PM MICROFICHE DUPLICATOR) [facility] Ventricular Rate EKG/Min 153 BPM [facility] Atrial Rate 153 BPM [facility] FL-Interval (MSEC) [address] [facility] QRS-Interval (MSEC) [address] [facility] QT-Interval (MSEC) 328 ms [facility] QTc 523 ms [facility] P [place] 57 degrees [facility] R [place] 67 degrees [facility] T [place] 44 degrees [facility] Diagnosis Sinus tachycardia Otherwise normal ECG When compared with ECG of 20-AUG-2024 02:26, T wave inversion no longer evident in Anterior leads Confirmed by LAWRENCE YIP M.D. ([id number]) on 09/02/2024 9:10:53 AM [facility] 09/01/2024 1:54 PM MICROFICHE DUPLICATOR 09/02/2024 9:10 AM MICROFICHE DUPLICATOR us Wil Monteiro MD ECG ORDERABLES Fin al Result [facility] * eGFR (08/22/2024 7:57 AM MICROFICHE DUPLICATOR) Pathologist [facility] eGFR >90 >=60 mL/min/1. [...] was last reviewed 2021. Testing performed by: [address] [address] Blood 08/22/2024 7:57 AM MICROFICHE DUPLICATOR 08/22/2024 8:11 AM MICROFICHE DUPLICATOR us José Luis Tripp MD LAB BLOOD ORDERABLES Final Re sult [facility] Department [place] [address] * (ABNORMAL) CBC without differential (08/22/2024 7:57 AM MICROFICHE DUPLICATOR) WBC 11.8(H) 3.8 - 9.9 K/cumm Comment:Testing performed by : [address] [address] Hgb 10.4(L) 11.9 - 15.5 g/dL [facility] Comment:Testing performed by : [address] [address] Hct 33.4(L) 35.6 - 45.5 % [facility] Comment:Testing performed by : [address] [address] Plt 450(H) 150 - 400 K/cumm [facility] Comment:Testing performed by : [address] [address] MPV 9.0(L) 9.1 - 12.3 fL [facility] Comment:Testing performed by : [address] [address] RBC 4.12 3.90 - 5.20 M/cumm [facility] Comment:Testing performed by : [address] [address] MCV 81.1(L) 81.3 - 96.4 fL [facility] Comment:Testing performed by : [address] [address] MCH 25.2(L) 27.1 - 33.3 pg [facility] Comment:Testing performed by : [address], [address] MCHC 31.1(L) 32.3 - 35.7 g/dL [facility] Comment:Testing performed by : [address], [address] RDW CV 15.5(H) 11.1 - 14.9 % [facility] Comment:Testing performed by : [address], [address] RDW SD 45.6 35.7 - 48.1 fL [facility] Comment:Testing performed by : [address], [address] NRBC abs 0.00 0.00 - 0.01 K/cumm [facility] Comment:Testing performed by : [address], [address] Blood 08/22/2024 7:57 AM MICROFICHE DUPLICATOR 08/22/2024 8:11 AM MICROFICHE DUPLICATOR us Jorje Huynh MD LAB BLOOD ORDERABLES Final Result [facility] [address] [facility] Department [place] [address] * Basic metabolic panel (08/22/2024 7:57 AM MICROFICHE DUPLICATOR) Sodium 137 135 - 145 mmol/L Comment:Testing performed by : [address], [address] Potassium, pl 3.7 3.3 - 4.9 mmol/L [facility] Comment:Testing performed by : [address] [address] Chloride 103 97 - 110 mmol/L [facility] Comment:Testing performed by : [address] [address] CO2 23 22 - 32 mmol/L [facility] Comment:Testing performed by : [address] [address] Anion gap 11 2 - 15 mmol/L [facility] Comment:Testing performed by : [address] [address] BUN 16 6 - 25 mg/dL [facility] Comment:Testing performed by : [address] [address] Creatinine 0.71 0.60 - 1.10 mg/dL [facility] Comment:Testing performed by : [address] [address] Glucose 102 70 - 199 mg/dL [facility] [...] was last revised 2022. Testing performed by: [address] [address] Calcium 9.0 8.5 - 10.3 mg/dL [facility] Comment:Testing performed by : [address] [address] Blood 08/22/2024 7:57 AM MICROFICHE DUPLICATOR 08/22/2024 8:11 AM MICROFICHE DUPLICATOR us José Luis Tripp MD LAB BLOOD ORDERABLES Final Re sult [facility] [address] [facility] Department [place] [address] * eGFR (08/21/2024 7:53 AM MICROFICHE DUPLICATOR) Pathologist [facility] eGFR >90 >=60 mL/min/1. [...] was last reviewed 2021. Testing performed by: [address] [address] Blood 08/21/2024 7:53 AM MICROFICHE DUPLICATOR 08/21/2024 8:14 AM MICROFICHE DUPLICATOR us José Luis Tripp MD LAB BLOOD ORDERABLES Final Re sult [facility] [address] [facility] Department [place] [address] * (ABNORMAL) CBC without differential (08/21/2024 7:53 AM MICROFICHE DUPLICATOR) Pathologist [facility] WBC 11.9(H) 3.8 - 9.9 K/cumm Comment:Testing performed by : [address] [address] Hgb 11.2(L) 11.9 - 15.5 g/dL [facility] Comment:Testing performed by : [address] [address] Hct 35.2(L) 35.6 - 45.5 % [facility] Comment:Testing performed by : [address] [address] Plt 481(H) 150 - 400 K/cumm [facility] Comment:Testing performed by : [address] [address] MPV 9.0(L) 9.1 - 12.3 fL [facility] Comment:Testing performed by : [address] [address] RBC 4.41 3.90 - 5.20 M/cumm [facility] Comment:Testing performed by : [address] [address] MCV 79.8(L) 81.3 - 96.4 fL [facility] Comment:Testing performed by : [address] [address] MCH 25.4(L) 27.1 - 33.3 pg [facility] Comment:Testing performed by : [address] [address] MCHC 31.8(L) 32.3 - 35.7 g/dL [facility] Comment:Testing performed by : [address] [address] RDW CV 15.6(H) 11.1 - 14.9 % [facility] Comment:Testing performed by : [address] [address] RDW SD 44.8 35.7 - 48.1 fL [facility] Comment:Testing performed by : [address] [address] NRBC abs 0.00 0.00 - 0.01 K/cumm [facility] Comment:Testing performed by : [address] [address] Blood 08/21/2024 7:53 AM MICROFICHE DUPLICATOR 08/21/2024 8:15 AM MICROFICHE DUPLICATOR us Jorje Huynh MD LAB BLOOD ORDERABLES Final Result [facility] [address] [facility] Department [place] [address] * Basic metabolic panel (08/21/2024 7:53 AM MICROFICHE DUPLICATOR) Sodium 139 135 - 145 mmol/L Comment:Testing performed by : [address] [address] Potassium, pl 3.5 3.3 - 4.9 mmol/L [facility] Comment:Testing performed by : [address] [address] Chloride 102 97 - 110 mmol/L [facility] Comment:Testing performed by : [address] [address] CO2 23 22 - 32 mmol/L [facility] Comment:Testing performed by : [address] [address] Anion gap 14 2 - 15 mmol/L [facility] Comment:Testing performed by : [address] [address] BUN 11 6 - 25 mg/dL [facility] Comment:Testing performed by : [address], [place]., [address] Creatinine 0.70 0.60 - 1.10 mg/dL [facility] Comment:Testing performed by : [address] [address] Glucose 91 70 - 199 mg/dL [facility] [...] was last revised 2022. Testing performed by: [address] [address] Calcium 9.4 8.5 - 10.3 mg/dL [facility] Comment:Testing performed by : [address] [address] Blood 08/21/2024 7:53 AM MICROFICHE DUPLICATOR 08/21/2024 8:14 AM MICROFICHE DUPLICATOR José Luis Tripp MD LAB BLOOD ORDERABLES Final Re sult [facility] [address] [facility] Department [place] [address] * [place] CLOSED TX TEMPOROMANDIBULAR DISLOCATION 1ST/SBSQ (08/20/2024 1:18 PM MICROFICHE DUPLICATOR) Narrative Abhay Velez MD - 08/20/2024 1:18 PM MICROFICHE DUPLICATOR Abhay Velez MD 08/20/2024 1:33 PM Orthopedic Injury Treatment - Jaw Dislocation Date/Time: 08/20/2024 1:18 PM Performed by: Abhay Velez MD Authorized by: Abhay Velez MD RN Notified of Procedure: yes Informed consent: Risks, benefits, alternatives discussed and patient/desk representative/guardian agrees and accepts Patient's stated name/ [...] of procedure: Tolerated well, no immediate complications Result [facility] Abhay Velez MD IN CLINIC/BEDSIDE ORDERABLES Fi nal Result * Procedural Sedation (08/20/2024 1:18 PM MICROFICHE DUPLICATOR) Narrative Abhay Velez MD - 08/20/2024 1:18 PM MICROFICHE DUPLICATOR Abhay Velez MD 08/20/2024 1:32 PM Procedural Sedation Date/Time: 08/20/2024 1:18 PM Performed by: Abhay Velez MD Authorized by: Abhay Velez MD [place] Protocol: RN Notified of Procedure: yes Informed consent: Risks, benefits, alternatives discussed and patient/desk representative/guardian agrees and accepts Patient's stated name/ [...] Less than 4 Views (08/20/2024 11:41 AM MICROFICHE DUPLICATOR) Anatomical Region Laterality Modality Head and Neck N/A Computed Radiogr aphy 08/20/2024 11:5 5 AM MICROFICHE DUPLICATOR Narrative 08/20/2024 12:02 PM MICROFICHE DUPLICATOR EXAM DESCRIPTION: XR MANDIBLE LESS THAN 4 [...] Rohan Ramos M.D. LB: EDGARDO Report ID: [id number] Reading Location: [id number] Procedure Note Rohan Ramos MD - 08/20/2024 [...] Rohan Ramos M.D. LB: LB Report ID: [id number] Reading Location: [id number] us Jorje Huynh MD IMG XR PROCEDURES Final Re sult * Sepsis Lactate w/ Reflex (08/20/2024 8:24 AM MICROFICHE DUPLICATOR) Pathologist [facility] Sepsis Lactate 1.3 0.7 - 2.0 mmol/L Comment:Testing performed by : [facility], [address] [place] [address]., [address] Blood 08/20/2024 8:24 AM MICROFICHE DUPLICATOR 08/20/2024 8:29 AM MICROFICHE DUPLICATOR us Erik Westbrook [employer]OOK[employer] LAB BLOOD ORDERABLES Final Resul t [facility] [address] [facility] Department [place] [address] * (ABNORMAL) Sepsis Lactate w/ Reflex (08/20/2024 3:25 AM MICROFICHE DUPLICATOR) Pathologist [facility] Sepsis Lactate 2.6(C) 0.7 - 2.0 mmol/L Comment: Critical Result called to and read back by [email or web address], DATE: 2024-08-20 04:23:15 BY: [id number] Testing performed by: [address] [address] Blood 08/20/2024 3:25 AM MICROFICHE DUPLICATOR 08/20/2024 4:00 AM MICROFICHE DUPLICATOR us Erik Westbrook NP LAB BLOOD ORDERABLES Final Resul t Performing Organization Address [facility] Co de Phone Number TAWNYA [address] [place], [place] [id number] * eGFR (08/20/2024 3:25 AM MICROFICHE DUPLICATOR) eGFR >90 >=60 mL/min/1. 73 m2 Comment: [...] was last reviewed 2021. Testing performed by: [facility], [address] [place] [address]., [address] Blood 08/20/2024 3:25 AM MICROFICHE DUPLICATOR 08/20/2024 4:00 AM MICROFICHE DUPLICATOR us José Luis Tripp MD LAB BLOOD ORDERABLES Final Re sult Performing Organization Address City/[facility]/ZIP Co de Phone Number YA[address] [place], [place] [id number] * (ABNORMAL) CBC without differential (08/20/2024 3:25 AM MICROFICHE DUPLICATOR) [facility] Signature WBC 12.4(H) 3.8 - 9.9 K/cumm Comment:Testing performed by : [address] [address] Hgb 10.3(L) 11.9 - 15.5 g/dL [facility] Comment:Testing performed by : [address] [address] Hct 32.7(L) 35.6 - 45.5 % [facility] Comment:Testing performed by : [address], [address] Plt 467(H) 150 - 400 K/cumm [facility] Comment:Testing performed by : [address], [address] MPV 9.1 9.1 - 12.3 fL [facility] Comment:Testing performed by : [address], [address] RBC 4.09 3.90 - 5.20 M/cumm [facility] Comment:Testing performed by : [address] [address] MCV 80.0(L) 81.3 - 96.4 fL [facility] Comment:Testing performed by : [address] [address] MCH 25.2(L) 27.1 - 33.3 pg [facility] Comment:Testing performed by : [address], [address] MCHC 31.5(L) 32.3 - 35.7 g/dL [facility] Comment:Testing performed by : [address], [address] RDW CV 15.1(H) 11.1 - 14.9 % [facility] Comment:Testing performed by : [address], [address] RDW SD 43.8 35.7 - 48.1 fL [facility] Comment:Testing performed by : [address], [address] NRBC abs 0.00 0.00 - 0.01 K/cumm [facility] Comment:Testing performed by : [address] [address] Blood 08/20/2024 3:25 AM MICROFICHE DUPLICATOR 08/20/2024 4:00 AM MICROFICHE DUPLICATOR us José Luis Tripp MD LAB BLOOD ORDERABLES Final Re sult [facility] [address] [facility] Department [place] [address] * (ABNORMAL) Basic metabolic panel (08/20/2024 3:25 AM MICROFICHE DUPLICATOR) Sodium 138 135 - 145 mmol/L Comment:Testing performed by : [address] [address] Potassium, pl 4.4 3.3 - 4.9 mmol/L [facility] Comment: Hemolyzed; Potassium value may be falsely elevated by as much as 1.0 mmol/L. Suggest redraw and reanalysis. Testing performed by: [address] [address] Chloride 104 97 - 110 mmol/L [facility] Comment:Testing performed by : [address] [address] CO2 20(L) 22 - 32 mmol/L [facility] Comment:Testing performed by : [address] [address] Anion gap 14 2 - 15 mmol/L [facility] Comment:Testing performed by : [address] [address] BUN 8 6 - 25 mg/dL [facility] Comment:Testing performed by : [address] [address] Creatinine 0.64 0.60 - 1.10 mg/dL [facility] Comment:Testing performed by : [address] [address] Glucose 179 70 - 199 mg/dL [facility] [...] was last revised 2022. Testing performed by: [facility], [address] [place] [address]., [address] Calcium 9.5 8.5 - 10.3 mg/dL [facility] Comment:Testing performed by : [address] [address] Blood 08/20/2024 3:25 AM MICROFICHE DUPLICATOR 08/20/2024 4:00 AM MICROFICHE DUPLICATOR us José Luis Tripp MD LAB BLOOD ORDERABLES Final Re sult [facility] [address] [facility] [place] [address] * ECG 12 lead (08/20/2024 2:26 AM MICROFICHE DUPLICATOR) Pathologist [facility] Ventricular Rate EKG/Min 148 BPM [facility] Atrial Rate [address] [facility] FL-Interval (MSEC) [address] [facility] QRS-Interval (MSEC) [address] [facility] QT-Interval (MSEC) [address] [facility] QTc [address] [facility] P [place] [address] [facility] R [place] [address] [facility] T [place] 35 degrees [facility] Diagnosis Sinus tachycardia Incomplete right bundle branch block Nonspecific T wave abnormality Abnormal ECG When compared with ECG of 19-AUG-2024 20:25, No significant change was found Confirmed by BELIA CHU M.D. ([id number]) on 08/21/2024 5:20:17 AM [facility] 08/20/2024 2:26 AM MICROFICHE DUPLICATOR 08/21/2024 5:20 AM MICROFICHE DUPLICATOR us Jorje Huynh MD ECG ORDERABLES Final Resu lt [facility] Link[facility] * (ABNORMAL) Sepsis Lactate w/ Reflex (08/19/2024 8:52 PM MICROFICHE DUPLICATOR) Sepsis Lactate 2.4(C) 0.7 - 2.0 mmol/L Comment: Critical Result called to and read back by [email or web address], DATE: 2024-08-19 21:21:33 BY: [id number] Testing performed by: [facility], [address] [place] [address]., [address] Blood 08/19/2024 8:52 PM MICROFICHE DUPLICATOR 08/19/2024 8:55 PM MICROFICHE DUPLICATOR us Erik Westbrook NP LAB BLOOD ORDERABLES Final Resul t Performing Organization Address [facility] Co de Phone Number [place] [id number] [facility] Department [place] [address] * ECG 12 lead (08/19/2024 8:25 PM MICROFICHE DUPLICATOR) Pathologist [facility] Ventricular Rate EKG/Min 129 BPM [facility] Atrial Rate [address] [facility] FL-Interval (MSEC) [address] [facility] QRS-Interval (MSEC) [address] [facility] QT-Interval (MSEC) [address] [facility] QTc [address] [facility] P [place] [address] [facility] R [place] [address] [facility] T [place] [address] [facility] Diagnosis Sinus tachycardia Possible Left atrial enlargement Incomplete right bundle branch block Borderline ECG When compared with ECG of 21-MAY-2024 14:20, No significant change was found Confirmed by ZANE SORTO M.D. ([id number]) on 08/20/2024 11:59:01 PM [facility] 08/19/2024 8:25 PM MICROFICHE DUPLICATOR 08/20/2024 11:59 PM MICROFICHE DUPLICATOR Erik Westbrook NP ECG ORDERABLES Final Result Performing Organization Address City/[facility]/ZIP Co de Phone Number [facility] * eGFR (08/19/2024 8:20 PM MICROFICHE DUPLICATOR) eGFR >90 >=60 mL/min/1. 73 m2 Comment: [...] was last reviewed 2021. Testing performed by: [address] [address] Blood 08/19/2024 8:20 PM MICROFICHE DUPLICATOR 08/19/2024 8:24 PM MICROFICHE DUPLICATOR us Erik Westbrook NP LAB BLOOD ORDERABLES Final Resul t [facility] [address] [facility] Department [place] [address] * (ABNORMAL) Differential, auto (08/19/2024 8:20 PM MICROFICHE DUPLICATOR) Pathologist [facility] Neutrophil abs 17.7(H) 1.5 - 6.5 K/cumm Comment:Testing performed by : [address] [address] Imm gran abs 0.1 0.0 - 0.1 K/cumm [facility] Comment:Testing performed by : [address] [address] Lymphocyte abs 0.6(L) 0.8 - 3.3 K/cumm [facility] Comment:Testing performed by : [address] [address] Monocyte abs 0.4 0.2 - 0.8 K/cumm [facility] Comment:Testing performed by : [address] [address] Eosinophil abs 0.0 0.0 - 0.5 K/cumm [facility] Comment:Testing performed by : [address] [address] Basophil abs 0.1 0.0 - 0.1 K/cumm [facility] Comment:Testing performed by : [address] [address] Neutrophil pct 94.0 % [facility] Comment: Interpretive Data Percent cell count reference ranges are not reported, since discordance with absolute values may lead to misinterpretation of CBC data. Current Interpretive Data was last revised on 2017. Testing performed by: [address] [address] Imm gran pct 0.4 % [facility] Comment: Interpretive Data Percent cell count reference ranges are not reported, since discordance with absolute values may lead to misinterpretation of CBC data. Current Interpretive Data was last revised on 2017. Testing performed by: [address] [address] Lymphocyte pct 3.1 % [facility] Comment: Interpretive Data Percent cell count reference ranges are not reported, since discordance with absolute values may lead to misinterpretation of CBC data. Current Interpretive Data was last revised on 2017. Testing performed by: [address] [address] Monocyte pct 2.2 % [facility] Comment: Interpretive Data Percent cell count reference ranges are not reported, since discordance with absolute values may lead to misinterpretation of CBC data. Current Interpretive Data was last revised on 2017. Testing performed by: [address] [address] Eosinophil pct 0.0 % [facility] Comment: Interpretive Data Percent cell count reference ranges are not reported, since discordance with absolute values may lead to misinterpretation of CBC data. Current Interpretive Data was last revised on 2017. Testing performed by: [address] [address] Basophil pct 0.3 % [facility] Comment: Interpretive Data Percent cell count reference ranges are not reported, since discordance with absolute values may lead to misinterpretation of CBC data. Current Interpretive Data was last revised on 2017. Testing performed by: [address] [address] Blood 08/19/2024 8:20 PM MICROFICHE DUPLICATOR 08/19/2024 8:24 PM MICROFICHE DUPLICATOR us rEik Westbrook NP LAB BLOOD ORDERABLES Final Resul t [facility] [place] [address] * (ABNORMAL) CBC with auto differential (08/19/2024 8:20 PM MICROFICHE DUPLICATOR) WBC 18.8(H) 3.8 - 9.9 K/cumm Comment:Testing performed by : [address] [address] Hgb 10.7(L) 11.9 - 15.5 g/dL [facility] Comment:Testing performed by : [address] [address] Hct 33.3(L) 35.6 - 45.5 % [facility] Comment:Testing performed by : [address] [address] Plt 502(H) 150 - 400 K/cumm [facility] Comment:Testing performed by : [address] [address] MPV 8.9(L) 9.1 - 12.3 fL [facility] Comment:Testing performed by : [address] [address] RBC 4.21 3.90 - 5.20 M/cumm [facility] Comment:Testing performed by : [address] [address] MCV 79.1(L) 81.3 - 96.4 fL [facility] Comment:Testing performed by : [address] [address] MCH 25.4(L) 27.1 - 33.3 pg [facility] Comment:Testing performed by : [address] [address] MCHC 32.1(L) 32.3 - 35.7 g/dL [facility] Comment:Testing performed by : [address] [address] RDW CV 14.9 11.1 - 14.9 % [facility] Comment:Testing performed by : [address] [address] RDW SD 43.0 35.7 - 48.1 fL [facility] Comment:Testing performed by : [address] [address] NRBC abs 0.00 0.00 - 0.01 K/cumm [facility] Comment:Testing performed by : [address] [address] Blood 08/19/2024 8:20 PM MICROFICHE DUPLICATOR 08/19/2024 8:24 PM MICROFICHE DUPLICATOR Erik Westbrook [employer] LAB BLOOD ORDERABLES Final Resul t [facility] Department [place] [address] * Comprehensive metabolic panel (08/19/2024 8:20 PM MICROFICHE DUPLICATOR) Sodium 140 135 - 145 mmol/L Comment:Testing performed by : [address] [address] Potassium, pl 3.5 3.3 - 4.9 mmol/L [facility] Comment:Testing performed by : [address] [address] Chloride 104 97 - 110 mmol/L [facility] Comment:Testing performed by : [address] [address] CO2 23 22 - 32 mmol/L [facility] Comment:Testing performed by : [address] [address] Anion gap 13 2 - 15 mmol/L [facility] Comment:Testing performed by : [address] [address] BUN 11 6 - 25 mg/dL [facility] Comment:Testing performed by : [address], [place]., [address] Creatinine 0.71 0.60 - 1.10 mg/dL [facility] Comment:Testing performed by : [address] [address] Glucose 136 70 - 199 mg/dL [facility] [...] was last revised 2022. Testing performed by: [address] [address] Calcium 9.2 8.5 - 10.3 mg/dL [facility] Comment:Testing performed by : [address] [address] Bilirubin, total <0.2 0.1 - 1.2 mg/dL [facility] Comment:Testing performed by : [address] [address] Protein, pl 7.5 6.5 - 8.5 g/dL [facility] Comment:Testing performed by : [address] [address] Albumin 4.4 3.5 - 5.0 g/dL [facility] Comment:Testing performed by : [address] [address] Alk phos 74 40 - 130 Units/L [facility] Comment:Testing performed by : [address] [place] [address] ALT 29 7 - 45 Units/L [facility] Comment:Testing performed by : [address] [address] AST 19 10 - 45 Units/L [facility] Comment:Testing performed by : [address] [address] Blood 08/19/2024 8:20 PM MICROFICHE DUPLICATOR 08/19/2024 8:24 PM MICROFICHE DUPLICATOR us Erik Westbrook NP LAB BLOOD ORDERABLES Final Resul t TAWNYA [address] [facility] [place] [address] * Critical Care (08/19/2024 5:13 PM MICROFICHE DUPLICATOR) Narrative Erik Westbrook NP - 08/19/2024 5:13 PM MICROFICHE DUPLICATOR Erik Westbrook NP 08/19/2024 9:10 PM Critical [...] Final Result from Last 3 Months Insurance [employer] OPEN ACCESS [facility] CHOICE PLUS [facility] CHOICE PLUS Advance Directives For more information, please contact: [phone] * Full Code (Latest Code Status on File) Date Activated Date Inactivated Comments 09/23/2024 7:38 PM 09/24/2024 5:41 PM * Full Code Date Activated Date Inactivated Comments 09/01/2024 7:30 PM 09/05/2024 3:39 PM * Full Code Date Activated Date Inactivated Comments 08/19/2024 9:45 PM 08/22/2024 5:15 PM Care Teams Gallery Intern Relationship Specialty Start Date End Date Shannan Maldonado MD PCP - General 09/07/19
--- OUTSIDE RECORDS SUMMARY | 2024-10-02 23:36 | XMS_ITS | Continuity of Care Document ---
Author Organization [facility] Address [address] [facility] [address] [place] [address] Phone Care Team Providers Care Signalman Name Role Phone No Information Unavailable Unavailable Advance Directives Directive Yes / No Effective Date File Name No Information Encounters Encounter Description Practice Location Reason(s) For Visit Diagnoses Date Provider Providers Copied on Encounter [facility], [address] [facility] [address], [place], [place], [id number], [place] tel:[phone] [facility] [place] No Information No Information Family History Family [...]
--- OUTSIDE RECORDS SUMMARY | 2024-10-02 23:41 | XMS_ITS | Continuity of Care Document ---
Author Organization [facility] Address [address] [facility] [address] [place] [address] Phone Care Team Providers Care Grit Removal Operator Name Role Phone No Information Unavailable Unavailable Advance Directives Directive Yes / No Effective Date File Name No Information Encounters Encounter Description Practice Location Reason(s) For Visit Diagnoses Date Provider Providers Copied on Encounter [facility], [address] [facility] [address], [place], [place], [address], [place] tel:[phone] [facility] [place] No Information No Information Family History [...]
--- OUTSIDE RECORDS SUMMARY | 2024-10-02 23:41 | XMS_ITS | Patient Health Record ---
Author Organization [facility] Address [address] [place] [address] Care Team Providers Care Hose Tender Name Role Phone Shannan Maldonado Primary Care Provider UnavailRomy Razo Unavailable [phone] Megan Alvarado Unavailable [phone] [facility], Provider Unavailable Unavailab le Allergies Allergen [...] Duration) Notes Start Date End Date Status traZODone HCl 50 MG as directed orally once a day Active predniSONE 20 mg 1 tab(s) orally once a day for bronchitis Not-Taking Famotidine 40 MG 1 tab(s) orally 2 times a day for 90 days Active predniSONE 10 MG 2 tablets x3 days, 1 tablet x3 days Orally Once a day for 6 days 08/27/2024 Active Reglan 10 MG 1 tab(s) orally Qday, PRN Active Prochlorperazine Maleate 10 MG 1 tab(s) orally every 6 hours 10/11/2023 Active diazePAM 5 MG 1 tab(s) orally every 8 hours Active Flonase Allergy Relief 50 MCG/ACT 1 spray(s) intranasally once a day for 30 day(s) Not-Taking Cyclobenzaprine HCl 10 MG 1 tab(s) orally 3 times a day Active ZYRTEC 10 mg 1 tab(s) orally once a day for 30 days Active AUVI-Q 0.3 mg as directed intramuscularly once for 1 day Active predniSONE 20 MG 3 tablets once a day for 3 days, 2 tablets once a day for 3 days, 1 tablet once a day for 3 days Orally Once a day for 9 days Active FAMOTIDINE 40 mg 1 tab(s) orally 2 times a day for 90 days Active Auvi-Q 0.3 MG/0.3ML as directed intramuscularly [...] W/U Status Risk Notes Problem Idiopathic urticaria (46417325) Idiopathic urticaria (L50.1) Active confirmed Problem Anemia (444889261) Anemia, unspecified (D64.9) Active confirmed Problem Chronic allergic conjunctivitis (20315115) Other chronic allergic conjunctivitis (H10.45) Active confirmed Problem Allergic rhinitis caused by pollen (disorder) (73469272) Allergic rhinitis due to pollen (J30.1) Active confirmed Problem Allergic rhinitis (21576457) Other allergic rhinitis (J30.89) Active confirmed Problem Chronic sinusitis (93719013) Chronic sinusitis, unspecified (J32.9) Active confirmed Problem Mild intermittent asthma (490297831) Mild intermittent asthma, uncomplicated (J45.20) Active confirmed Problem Recurrent oral aphthae (677480269) 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) Active confirmed Problem Angioneurotic edema (40744695) Angioneurotic edema, subsequent encounter (T78.3XXD) Active confirmed Problem Allergy status t o narcotic agent status (Z88.5) Active confirmed Problem Food allergy (975408944) Allergy to other foods (Z91.018) Active confirmed Problem Allergic rhinitis caused by animal hair and dander (976767025065910) Allergic rhinitis due to animal (cat) (dog) hair and dander (J30.81) Active confirmed Problem Angioneurotic edema (12317677) Angioneurotic edema, initial encounter (T78.3XXA) Active confirmed Problem Urticaria (531058075) Other Urticaria (L50.8) Active confirmed Vital Signs Oximetry 98 % 10/02/2024 Blood pressure diastolic 98 mm Hg 10/02/2024 Height 67 in 10/02/2024 Blood pressure systolic 153 mm Hg 10/02/2024 Weight 209.0 lbs 10/02/2024 BMI 32.73 kg/m2 10/02/2024 Encounters Encounter Location Date Provider Diagnosis [address] [address] 12/16/2023 Provider [facility] [address] [address] 10/02/2024 Romy Montiel Idiopathic urticaria L50.1 ; Angioneurotic [...] Z88.5 and Mild intermittent asthma, uncomplicated J45.[address] [address] 10/11/2023 Romy Montiel Idiopathic urticaria L50.1 ; [...] asthma, uncomplicated J45.20 and Anemia, unspecified D64.[address] [address] 10/25/2023 Romy Dinesh Other Urticaria L50. 8 [facility] [address] [place] [address] 11/08/2023 Romy Dinesh Other Urticaria L50. 8 [facility] [address] [place] [address] 11/22/2023 Romy Dinesh Other Urticaria L50. 8 [facility] [address] [place] [address] 12/06/2023 Romy Dinesh Other Urticaria L50. 8 [facility] [employer] [address] [place] [address] 12/20/2023 Romy Dinesh Other Urticaria L50. 8 [facility] [employer] [address] [place] [address] 01/03/2024 Romy Dinesh Other Urticaria L50. 8 [facility] [employer] [address] [place] [address] 01/17/2024 Romy Dinesh Other Urticaria L50. 8 [facility] [employer] [address] [place] [address] 01/31/2024 Romy Dinesh Other Urticaria L50. 8 [facility] [employer] [address] [place] [address] 02/14/2024 Romy Dinesh Other Urticaria L50. 8 [facility] [address] [place] [address] 02/28/2024 Romy Dinesh Other Urticaria L50. 8 [facility] [address] [place] [address] 03/13/2024 Romy Dinesh Other Urticaria L50. 8 [facility] [address] [place] [address] 03/27/2024 Romy Dinesh Other Urticaria L50. 8 [facility] [address] [place] [address] 04/10/2024 Romy Dinesh Other Urticaria L50. 8 [facility] [address] [place] [address] [address] 04/24/2024 Romy Dinesh Other Urticaria L50. 8 [facility] [address] [place] [address] [address] 05/08/2024 Romy Dinesh Other Urticaria L50. 8 [facility] [address] [place], [place] [address] [address] [address] 05/22/2024 Romy Dinesh Idiopathic urticaria L50.1 ; [...] Z88.5 and Mild intermittent asthma, uncomplicated J45.20 [facility] [address] [place], [place] [address] [address] [address] 06/05/2024 Romy Dinesh Other Urticaria L50. 8 [facility] [address] [place] [address] [address] 06/19/2024 Romy Dinesh Other Urticaria L50. 8 [facility] [address] [place] [address] [address] 07/10/2024 Romy Dinesh Other Urticaria L50. 8 [facility] [address] [place], [place] [address] [address] [place] [address] 07/24/2024 Romy Dinesh Other Urticaria L50. 8 [facility] [address] [place], [place] [address] [address] [place] [address] 08/07/2024 Romy Dinesh Other Urticaria L50. 8 [facility] [address] [place], [place] [address] [address] [place] [address] 08/27/2024 Romy Montiel Idiopathic urticaria L50.1 ; Angioneurotic [...] Z88.5 and Mild intermittent asthma, uncomplicated J45.20 [facility] [address] [place] [address] 09/11/2024 Romy Montiel Idiopathic urticaria L50.1 ; [...] Z88.5 and Mild intermittent asthma, uncomplicated J45.20 [facility] [address] [place] [address] 10/16/2023 Romy Montiel [address] [address] 10/23/2023 Romy Montiel Idiopathic urticaria L50.1 [facility] [address] [place] [address] 12/06/2023 Romy Montiel [facility] [address] [place] [address] 01/10/2024 Romy Montiel [address] [address] 05/02/2024 Roym Montiel Idiopathic urticaria L50.1 [facility] [address] [place] [address] 05/24/2024 Romy Montiel [facility] [address] [facility] [address] [place] [address] 06/19/2024 Romy Montiel [address] [address] 06/25/2024 [facility] [address] 07/31/2024 Romy Carranzam [facility] [address] [facility] [address] [place] [address] 08/05/2024 Romy Dinesh [facility] [address] [place] [address] [place] [address] 08/05/2024 Romy Carranzam [facility] [address] [facility] [address] [place] [address] 08/21/2024 Romy Carranzam [facility] [address] [place] [address] [place] [address] 08/26/20[address] [address] 09/09/2024 Romy Montiel [address] [address] 09/17/2024 Romy Sturm [address] [address] 10/01/2024 Romy Sturm [address] [address] 10/01/2024 Romy Montiel Assessments Encounter Date Diagnosis (ICD Code) [...] from Dr. Suarez. Needs to f/u with [facility] or PCP due to fainting episodes 06/05/2024 [...] since unclear if benefit from Xolair. 10/02/2024 Idiopathic urticaria (ICD-10 - L50.1) She [...] if needed. 10/02/2024 Allergic rhinitis due to pollen (ICD-10 - J30.1) Rosangela clearly suffers from atopic disease based upon history and our skin testing. Consider immunotherapy in the future if needed. 09/11/2024 Allergic rhinitis due to animal (cat) (dog) hair and dander (ICD-10 - J30.81) 10/02/2024 Allergic rhinitis due to animal (cat) [...] 09/11/2024 Other allergic rhinitis (ICD-10 - J30.89) 10/02/2024 Other allergic rhinitis (ICD-10 - J30.89) [...] appear to be food related 10/02/2024 Allergy to other foods (ICD-10 - [...] check is normal. Continue prn albuterol 10/02/2024 Mild intermittent asthma, uncomplicated (ICD-10 - J45.20) Spirometry at last check is normal. Continue prn albuterol 10/11/2023 Anemia, unspecified (ICD-10 - D64.9) Anemia on CBC and history of iron deficiency anemia. She is now taking iron supplements 08/21/2024 Other 10/02/2024 Other 10/25/2023 Other 11/08/2023 Other 11/22/2023 Other [...] 10/29/19 Next Appt Details Provider Name:Romy archer, 10/16/2024 11:00:00 AM, [address] [place] [address], [phone], Insurance Providers Payer Name Payer Address Payer Phone Subscriber Number Group Number Insured Name Patient Relationship to Insured Coverage Start Date Coverage End Date [employer] [address] [place] [address] [id number] Anson Koenig Spouse - patient is the spouse of the insured 4 [facility] [address] [address] [place] [address] [id number] Anson Koenig Spouse - patient is the spouse of the insured 5 [employer] [address] [place] [phone] [id number] Rosangela Koenig Self - patient is the [...] Surgical History Surgery Date(Month/Year) Muscle Biopsy 10/17/2006 [place] Teeth Removal 2008 D&C 2008 Medial Patella Femoral Ligament Reconstr uction 11/06/2009 Tonsillectomy 10/2010 Tarsal Tunnal Release 2015 foot surgery for toe dislocation (right foot) 12/2021 screw right great toe replaced and pin p ut in second right toe 04/2023 Hospitalization History Reason Date(Month/Year) anaphylaxis 10/01/23 anaphylaxis 10/12/22 anaphylaxis 09/08/2022 Epistaxis 06/28/22 Urticaria and Angioedema October 2021
--- OUTSIDE RECORDS SUMMARY | 2024-10-02 23:42 | XMS_ITS | Continuity of Care Document ---
Author Organization [facility] Address [address] [place] [address] Phone Care Team Providers Care Caretaker Resort Name Role Phone Manuel Anthony MD Unavailable [...] Diagnoses Date Provider Providers Copied on Encounter [facility], [address], [place], [place], [id number] , [place] tel: [phone] [facility] No Information 2 Gabrielle Jackson. [address] , [place], [place], [address] , [place]. tel: [phone] Referring Provider: Lazarus Blandon, [address], [place], [address]. tel:[phone] [facility], [address], [place], [place], [address] , [place] tel: [phone] [facility] No Information [address] [place] [address], [id number] , [place]. tel: [phone] [facility], [address], [place], [place], [address] , [place] tel: [phone] [facility] Abdominal pain, unspecified abdominal locationGastroesop hageal reflux disease without esophagitisFlatule nce symptomIrritable bowel syndrome without diarrhea 6 Aida Nava. [address] [facility], [place], [place], [address] , [place]. tel: [phone] Referring Provider: Shannan Maldonado, [address], [place], [address]. tel:[phone] [facility], [address], [place], [place], [address] , [place] tel: [phone] [facility] No Information 5 Lawson Cai. [address], [id number] , [place]. tel: [phone] [facility], [address], [place], [place], [address] , [place] tel: [phone] [facility] Anaphylaxis, initial encounter Lawson Cai. [address], [id number] , [place]. tel: [phone] [facility], [address], [place], [place], [address] , tel: [phone] [facility] Anaphylaxis, initial encounter Lawson Cai. [address], [id number] , [place]. tel: [phone] [facility], [address], [place], [place], [address] , tel: [phone] [facility] Anaphylaxis, initial encounter Lawson Cai. [address], [id number] , [place]. tel: [phone] Referring Provider: Shannan Maldonado [address] [place], [address]. tel:[phone] Family History Family Member Type Diagnosis Age At Onset No Information Payers Payer name Insurance type Covered libertarian ID Herminia cervantes(s) SANYA PASTRANA CI [id number] Social History Type Description Quantity Date Captured [...]
--- NOTE | 2024-10-02 23:44 | ED_ITS ---
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 Patient is well known to this emergency department and suspected malingering. Patient presents today as she was having subjective allergy symptoms including scratchy throat, wheezing, difficulty in breathing. Patient is not in any distress. She has a history of POTS and chronically tachycardic and on review of the EMR always heart rate in the 120s to 130s without any change. This is patient's 4th visit this past week without any findings on her workup or any concerns under physical exam. Patient is discharged each time with instructions to follow-up with her drafter landscape and primary care provider. Patient did not take any epinephrine prior to arrival. She does have epinephrine refills per the EMR. Patient took Benadryl at 7:00 p.m. Related Data Home Medications ?Medication ?Instructions ?Recorded ?Confirmed ?Last Taken ?Type epinephrine 0.3 mg/0.3 mL 0.3 mg IM ONCE PRN Allergic 05/30/23 08/26/24 Unknown History injection, auto-injector Reaction famotidine 40 mg tablet 40 mg PO DAILY 05/30/23 08/26/24 Unknown History drospirenone 3 mg-ethinyl 1 tablet PO DAILY 08/08/24 08/26/24 Unknown History estradiol 0.03 mg tablet (Dana (28)) Allergies Allergy/AdvReac Type Severity Reaction Status Date / Time peanut Allergy Severe Anaphylaxis, Verified 09/30/24 15:37 HIVES tree nut Allergy Severe Anaphylaxis Verified 09/30/24 15:37 hydromorphone Allergy Intermediate Hives / Verified 09/30/24 15:37 Red Face clarithromycin Allergy Mild N/V Verified 09/30/24 15:37 hydrocodone Allergy Mild Itching Verified 09/30/24 15:37 meperidine Allergy Mild Nausea and Verified 09/30/24 15:37 Vomiting azithromycin Allergy Unknown N/V, Verified 09/30/24 15:37 DIARRHEA, ABD CRAMPING. duloxetine Allergy Unknown BULGING Verified 09/30/24 15:37 EYES ondansetron Allergy Unknown PROLONGED Verified 09/30/24 15:37 QT lorazepam AdvReac Irritable Verified 09/30/24 15:37 ENERGY DRINKS Allergy Mild ORAL Uncoded 09/30/24 15:37 SWELLING W[place]EL[place]UN[place]URPY Allergy Mild ORAL Uncoded 09/30/24 15:37 SWELLING Review of Systems Review of Systems: As reviewed above in HPI [facility] Past Medical History Medical History GERD (gastroesophageal reflux disease) Chronic constipation Early satiety Nausea and vomiting Mast cell activation syndrome Dislocation of toe of right foot Anxiety Idiopathic anaphylaxis 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 Code status: Full code. Smoking status: Never smoker Second hand tobacco smoke exposure: No Alcohol intake: current Drinks per week: 1 Alcohol use details: VERY RARE Substance use: never Substance use type: does not use Lack of Transportation: No Lack of Food: Never True Current Housing: I Have Housing Concerned About Future Housing: No Difficulty Paying Gas/Electric Bills: No Difficulty Paying for Meds: No Currently Unemployed: No Education: High School Diploma/GED Difficulty w/ Childcare or Family Care: No Living arrangements: with family Additional living arrangements comments: Lives in [place] with her . No children. She is adopted. 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 Gender identity (if verbalized by the patient): Female Sexual Orientation (if Verbalized by the Patient): Straight or Heterosexual Spiritual care concerns: No Exam Narrative: GENERAL: Not in any distress, no tachypnea, no increased respiratory effort. Otherwise well-appearing. HEAD: [Normocephalic, atraumatic.] EYES: [PERRLA and EOMI.] ENT: Nares clear, no rhinorrhea or epistaxis. Mucous membranes moist. No base of tongue swelling, no uvular edema or deviation, posterior oropharynx is clear, no swelling in the tongue or lips. No lymphadenopathy in the head or neck NECK: Supple. No meningismus CHEST: Clear to auscultation, no wheezing, rhonchi, rales. No tachypnea, no accessory muscle use. HEART: [Regular rate and rhythm]. No murmur heard. [Normal peripheral pulses.] ABDOMEN: [Soft, nondistended], [nontender], [No rigidity or guarding] EXTREMITIES: Normal range of motion. [No edema.] SKIN: Warm, dry, no rash. NEURO: [No focal deficits]. Alert and oriented [x3.] PSYCH: [Normal mood and affect.] Course Vital Signs Vital signs: Vital Signs Temperature 36.6 C 10/02/24 23:34 Pulse Rate 135 H 10/02/24 23:34 Respiratory Rate 15 10/02/24 23:34 Blood Pressure 142/107 H 10/02/24 23:34 Pulse Oximetry 98 10/02/24 23:34 Oxygen Delivery Room Air 10/02/24 23:34 Temperature 36.6 C 10/02/24 23:34 Pulse Rate 114 H 10/03/24 01:48 Respiratory Rate 16 10/03/24 01:48 Blood Pressure 132/81 10/03/24 01:48 Pulse Oximetry 97 10/03/24 01:48 Oxygen Delivery Room Air 10/03/24 00:46 MDM - Allergic Reaction MDM Narrative Medical decision making narrative: 34-year-old female with history of idiopathic anaphylaxis, mast cell activation syndrome, 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 Patient presents for the 4th time this week for evaluation of allergy symptoms. Patient is de scribing subjective symptoms but clinically she has no signs or symptoms of allergy or anaphylaxis on her examination. No wheezing, rhonchi, rales, no respiratory distress, no base of tongue swelling, no throat swelling, no lymphadenopathy, no rash or angioedema. No urticarial rash. Clear breath sounds throughout, no GI symptoms. Patient is well known to this department and nursing staff has also voiced suspect for malingering. Patient is not in any distress. She is chronically tachycardic with a normal resting heart rate 120- 100 30s based on the review of the EMR. No blood pressure concerns, normal temperature, no hypoxia. Patient did not take anything besides diphenhydramine before she arrived. Did not take her EpiPen. Clinically she is well-appearing, not in any distress and we can watch her safely for several hours with treatments including steroids and diphenhydramine. She was given intramuscular Decadron and oral Benadryl elixir. Placed on cardiac nurse specialist and pulse ox. Patient was observed in the emergency department for several hours, heart rate has come down to 110. Patient has no symptoms and was treated with steroids and Benadryl. No recurrence of her symptoms, she is hemodynamically stable, safe for discharge with outpatient allergy follow-up. Medical Records Attestation: I reviewed the patient's medical records. Critical Care Time Critical Care Time Critical Care Time: Yes Total Critical Care Time: 35 Discharge Plan Discharge Clinical Impression: Idiopathic anaphylaxis Qualifiers: Encounter type: sequela Qualified Code(s): T78.2XXS - Anaphylactic shock, unspecified, sequela Patient Disposition: Home, Self-Care Condition: Stable Instructions: Antibiotic Form Additional Instructions: No acute concerns today based on your exam and vitals. Follow-up with your drafter landscape. We provided you a long-acting steroid injection here which will last several days. Take Pepcid, diphenhydramine, steroids at home as needed. If you experience any concerns for anaphylaxis you can administer your EpiPen and then go to an emergency department. Call your drafter landscape for close outpatient follow- up appointment. Patient Language: Congolese Prescriptions: No Action drospirenone-ethinyl estradiol [Dana (28)] 3-0.03 mg tablet 1 tablet PO DAILY albuterol sulfate 90 mcg/actuation HFA aerosol inhaler 1 inh inhalation Q4H PRN (Reason: shortness of breath or wheezing) Qty: 8.5 0RF budesonide 90 mcg/actuation aerosol powdr breath activated 1 inh inhalation Q12H Qty: 1 0RF prednisone 50 mg tablet 50 mg PO DAILY Qty: 5 0RF epinephrine 0.3 mg/0.3 mL auto-injector 0.3 mg IM ONCE PRN (Reason: Allergic Reaction) Rx Instructions: as a single dose; may repeat once famotidine 40 mg tablet 40 mg PO DAILY cyclobenzaprine 10 mg tablet 10 mg PO TID PRN (Reason: muscle spasm) Qty: 30 0RF tramadol 50 mg tablet 50 mg PO Q6H PRN (Reason: pain) Qty: 21 0RF triamcinolone acetonide 0.1 % paste See Rx Instructions .ROUTE .COMPLEX Qty: 5 1RF Dose Instruction: APPLY TO DENTAL AREA AT BEDTIME, AFTER FOOD, DRINK OR ORAL HYGIENE Rx Instructions: APPLY TO DENTAL AREA AT BEDTIME, AFTER FOOD, DRINK OR ORAL HYGIENE metoclopramide HCl 10 mg tablet See Rx Instructions .ROUTE .COMPLEX Qty: 60 3RF Dose Instruction: TAKE 1 TABLET BY MOUTH TWICE DAILY NEEDED FOR NAUSEA OR VOMITING Rx Instructions: TAKE 1 TABLET BY MOUTH TWICE DAILY NEEDED FOR NAUSEA OR VOMITING diazepam 5 mg tablet 5 mg PO BID PRN (Reason: anxiety) Qty: 60 0RF trazodone 50 mg tablet 50 mg PO QHS PRN (Reason: Sleep) Qty: 90 1RF prochlorperazine maleate 10 mg tablet See Rx Instructions .ROUTE .COMPLEX Qty: 90 0RF Dose Instruction: TAKE 1 TABLET BY MOUTH EVERY 6 HOURS NEEDED FOR NAUSEA OR VOMITING Rx Instructions: TAKE 1 TABLET BY MOUTH EVERY 6 HOURS NEEDED FOR NAUSEA OR VOMITING Follow-up/Referrals: Shannan Maldonado MD [Primary Care Provider] - Time of Disposition: 02:04
[2024-10-02] MEDS: dexAMETHasone SOD PHOS INJ 10 MG/ML 1 ML VIAL IM (23:58)
[2024-10-02] MEDS: diphenhydrAMINE HCL ELIXIR 12.5 MG/5 ML UDC 50 MG PO (23:58)
[2024-10-03 00:20] VITALS: PULSE 114
[2024-10-03 00:40] VITALS: PULSE 110
[2024-10-03 00:46] VITALS: O2SAT 98
[2024-10-03 01:48] VITALS: BP 132/81; PULSE 114; RESP 16; O2SAT 97
== END 2024-10-03 03:09 | disposition home or self-care (01) ==
PROVIDERS: Emergency Provider Student in an Organized Health Care Education/Training Program; PCP Family Medicine
DX: T78.2XXA Anaphylactic shock, unspecified, initial encounter (principal); J45.909 Unspecified asthma, uncomplicated; G90.A Postural orthostatic tachycardia syndrome [POTS]; D89.40 Mast cell activation, unspecified; K21.9 Gastro-esophageal reflux disease without esophagitis; K58.1 Irritable bowel syndrome with constipation; F41.9 Anxiety disorder, unspecified; Q79.60 Ehlers-Danlos syndrome, unspecified
CPT/HCPCS: 96372; 99283; A9270; J1100

== ENCOUNTER 2024-11-27 06:48 | Outpatient (CLI) | payer OTHER, SELFPAY ==
--- OUTSIDE RECORDS SUMMARY | 2024-11-27 06:52 | XMS_ITS | Patient Health Record ---
Author Organization [facility] ([address]) Address [address] [place] [address] Care Team Providers Care Emergency Vehicle Driver Name Role Phone JoelShannan Primary Care Provider UnavailRomy Razo Unavailable [phone] Megan Alvarado Unavailable [phone] [employer], Provider Unavailable Unavailab le Allergies Allergen [...] Duration) Notes Start Date End Date Status Reglan 10 MG 1 tab(s) orally Qday, PRN Active Prochlorperazine Maleate 10 MG Oral for 22 Days Active Prochlorperazine Maleate 10 MG 1 tab(s) orally every 6 hours 10/11/2023 Active predniSONE 20 mg 1 tab(s) orally once a day for bronchitis Not-Taking predniSONE 20 MG 3 tablets once a day for 3 days, 2 tablets once a day for 3 days, 1 tablet once a day for 3 days Orally Once a day for 9 days Not-Taking ZYRTEC 10 mg 1 tab(s) orally once a day for 30 days Active AUVI-Q 0.3 mg as directed intramuscularly once for 1 day Active Flonase Allergy Relief 50 MCG/ACT 1 spray(s) intranasally once a day for 30 day(s) Not-Taking traZODone HCl 50 MG as directed orally once a day Active Famotidine 40 MG 1 tab(s) orally 2 times a day for 90 days Active Auvi-Q 0.3 MG/0.3ML as directed intramuscularly once for 1 day Active Cyclobenzaprine HCl 10 MG 1 tab(s) orally 3 times a day Active diazePAM 5 MG 1 tab(s) orally every 8 hours Active Immunizations Vaccine Route Administration Date Status Comme nts Pneumovax 23 IM Intramuscular 02/25/2020 Administered Social History Tobacco Use: Social History Observation Description Date Details (start date - stop date) Never Smoker NA - NA Smoking Smart Form: Question Answer Notes Are you a: never smoker Tobacco Control (Standard) Question Answer Notes Tobacco use: Nonsmoker AUDIT-C (Standard) Question Answer Notes Did you have a drink containing alcohol in the p ast year? No Points 0 Interpretation Negative Problems Problem Type SNOMED Code ICD Code Onset Dates Problem Status W/U Status Risk Notes Problem Idiopathic urticaria (07929732) Idiopathic urticaria (L50.1) Active confirmed Problem Anemia (230437300) Anemia, unspecified (D64.9) Active confirmed Problem Chronic allergic conjunctivitis (70082450) Other chronic allergic conjunctivitis (H10.45) Active confirmed Problem Allergic rhinitis caused by pollen (disorder) (16644450) Allergic rhinitis due to pollen (J30.1) Active confirmed Problem Allergic rhinitis (39557109) Other allergic rhinitis (J30.89) Active confirmed Problem Chronic sinusitis (84367550) Chronic sinusitis, unspecified (J32.9) Active confirmed Problem Mild intermittent asthma (598621575) Mild intermittent asthma, uncomplicated (J45.20) Active confirmed Problem 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 confirmed Problem Angioneurotic edema (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) Angioneurotic edema, subsequent encounter (T78.3XXD) Active confirmed Problem Allergy status t o narcotic agent status (Z88.5) Active confirmed Problem Food allergy (566752785) Allergy to other foods (Z91.018) Active confirmed Problem Allergic rhinitis caused by animal hair and dander (353752466090819) Allergic rhinitis due to animal (cat) (dog) hair and dander (J30.81) Active confirmed Problem Angioneurotic edema (32194261) Angioneurotic edema, initial encounter (T78.3XXA) Active confirmed Problem Urticaria (836950614) Other Urticaria (L50.8) Active confirmed Vital Signs Oximetry 98 % 11/13/2024 Blood pressure diastolic 94 mm Hg 11/13/2024 Height 67 in 11/13/2024 Blood pressure systolic 140 mm Hg 11/13/2024 Weight 211.8 lbs 11/13/2024 BMI 33.17 kg/m2 11/13/2024 Encounters Encounter Location Date Provider Diagnosis [address] [phone] 12/16/2023 Provider ZZ-Migration [facility] [address] [place], [place] [address] [address] 12/06/2023 Romy Dinesh Other Urticaria L50. 8 [facility] [address] [place] [address] [employer] [address] [address] 12/20/2023 Romy Dinesh Other Urticaria L50. [address] [address] 01/03/2024 Romy Dinesh Other Urticaria L50. [address] [employer] [address] [place] [address] 01/17/2024 Romy Dinesh Other Urticaria L50. 8 [facility] [address] [place], [place] [address] [address] [place] [address] 01/31/2024 Romy Dinesh Other Urticaria L50. 8 [facility] [address] [place] [address] [address] [place] [phone] 02/14/2024 Romy Dinesh Other Urticaria L50. 8 [facility] [address] [place], [place] [address] [address] [place] [address] 02/28/2024 Romy Dinesh Other Urticaria L50. [address] [place] [address] 03/13/2024 Romy Dinesh Other Urticaria L50. 8 [facility] [address] [place] [address] 03/27/2024 Romy Dinesh Other Urticaria L50. [address] [employer] [address] [address] 04/10/2024 Romy Dinesh Other Urticaria L50. [address] [address] 04/24/2024 Romy Dinesh Other Urticaria L50. [address] [address] 05/08/2024 Romy Dinesh Other Urticaria L50. [address] [address] 05/22/2024 Romy Dinesh Idiopathic urticaria L50.1 ; [...] Z88.5 and Mild intermittent asthma, uncomplicated J45.20 [facility] [address] [place] [address] 06/05/2024 Romy Dinesh Other Urticaria L50. 8 [facility] [address] [place] [address] [place] [id number] 06/19/2024 Romy Dinesh Other Urticaria L50. 8 [facility] [address] [place] [address] [place] [phone] 07/10/2024 Romy Dinesh Other Urticaria L50. [address] [place] [address] 07/24/2024 Romy Montiel Other Urticaria L50. [address] [address] 08/07/2024 Romyelicia Carranzam Other Urticaria L50. [address] [address] 08/27/2024 Romyelicia Carranzam Idiopathic urticaria L50.1 ; Angioneurotic edema, subsequent [...] Z88.5 and Mild intermittent asthma, uncomplicated J45.[address] [address] 09/11/2024 Romy Carranzam Idiopathic urticaria L50.1 ; Angioneurotic edema, subsequent [...] Z88.5 and Mild intermittent asthma, uncomplicated J45.[address] [address] 10/02/2024 Romyelicia Montiel Idiopathic urticaria L50.1 ; Angioneurotic [...] ; Mild intermittent asthma, uncomplicated J45.20 and Shortness of breath R06.02 [facility] [address] [place] [phone] 10/16/2024 Romy Montile Idiopathic urticaria L50.1 ; Angioneurotic edema, subsequent [...] Z88.5 and Mild intermittent asthma, uncomplicated J45.20 [facility] [address] [place] [address] 10/30/2024 Romy Montiel Other Urticaria L50. [address] [address] 11/13/2024 Romy Montiel Idiopathic urticaria L50.1 ; Angioneurotic [...] Z88.5 and Mild intermittent asthma, uncomplicated J45.20 [facility] [address] [place] [address] 12/06/2023 Rmoy Montiel [facility] [address] [place] [address] 01/10/2024 Romy Montiel [address] [address] 05/02/2024 Romy Montiel Idiopathic urticaria L50.1 [facility] [address] [place] [address] 05/24/2024 Romy Montiel [facility] [address] [place] [phone] 06/19/2024 Romy Montiel [facility] [address] [place] [address] 06/25/[address] [facility] [address] [place] [address] 07/31/2024 Romy Montiel [facility] [address] [place] [phone] 08/05/2024 Romy Montiel [facility] [address] [place], [place] [address] [place] [address] 08/05/2024 Romy Montiel [facility] [address] [place] [phone] 08/21/2024 Romy Montiel [facility] [address] [place] [phone] 08/26/2024 Romy Montiel [address] [address] 09/09/2024 Romy Montiel [facility] [address] [place] [address] 09/17/2024 Romy Montiel [facility] [address] [place] [address] 10/01/2024 Romy Montiel [facility] [address] [place] [address] 10/01/2024 Romy Montiel [facility] [address] [place] [address] 11/20/2024 Romy Montiel Assessments Encounter Date Diagnosis (ICD Code) Assessment Notes Treatment Notes Treatment Clinical Notes Section Notes 12/06/2023 Other Urticaria (ICD-10 - L50.8) 12/20/2023 [...] from Dr. Suarez. Needs to f/u with [employer] or PCP due to fainting episodes 06/05/2024 [...] Xolair. 10/02/2024 Idiopathic urticaria (ICD-10 - L50.1) Steroid taper given today due to recent reactions this week and today in the office. 10/02/2024 Angioneurotic edema, subsequent encounter (ICD-10 - T78.3XXD) Recurrent episodes of anaphylaxis with multiple hospitalization and ER visits. Required hospitalization twice in August 2023. Flare is not consistent with a food allergy and I do not think most recent hospitalization was due to amoxicillin. Skin testing can be performed to penicillin when she is off antihistamines. She is also following with Dr. Suarez. Typtase -2022 in the ER was 2.4 mg which is normal. Normal tryptase, urine histamine, sed rate, and CMP. She received Xolair today in the office. Continue Xolair q2 weeks. We also discussed restarting mirtazapine and buspirone and she would need to speak with PCP. I discussed treatment plans with Dr. Suarez's RN ENDOSCOPY. We discussed cyclosporine or Dupixent when it is approved for chronic urticaria later this year. She is scheduled for f/u with Dr. Suarez next week. Today's reaction responded well to albuterol and prednisone 60 mg. Throat tightness and flushing resolved within about 30 minutes. 10/16/2024 Idiopathic urticaria (ICD-10 - L50.1) 10/16/2024 Angioneurotic edema, subsequent encounter (ICD-10 - T78.3XXD) Recurrent episodes of anaphylaxis with multiple hospitalization and ER visits. Required hospitalization twice in August 2023. Flare is not consistent with a food [...] need to speak with PCP. Plan to start cyclosporine later this week through Dr. Suarez's office and also scheduled for VCD evaluation with ENT. 10/30/2024 Other Urticaria (ICD-10 - L50.8) 11/13/2024 Idiopathic urticaria (ICD-10 - L50.1) 11/13/2024 Angioneurotic edema, subsequent encounter (ICD-10 - T78.3XXD) Recurrent episodes of anaphylaxis with multiple hospitalization and ER visits. Required hospitalization twice in August 2023. Flare is not consistent with a food [...] she would need to speak with PCP. She is scheduled for VCD evaluation later this month. She is holding cyclosporine prescribed by Dr. Suarez. We discussed decreasing Benadryl to q12 hours and stop completely if no further flares. 11/13/2024 Chronic sinusitis, unspecified (ICD-10 - J32.9) History of chronic sinusitis requiring antibiotics 5 times a year. Immunodeficiency evaluation normal and normal response to vaccines 10/16/2024 Chronic sinusitis, unspecified (ICD-10 - J32.9) History of chronic sinusitis requiring antibiotics 5 times a year. Immunodeficiency evaluation normal and normal response to vaccines 10/02/2024 Chronic sinusitis, unspecified (ICD-10 - J32.9) [...] Consider immunotherapy in the future if needed. 10/16/2024 Allergic rhinitis due to pollen (ICD-10 - J30.1) Rosangela clearly suffers from atopic disease based upon history and our skin testing. Consider immunotherapy in the future if needed. 11/13/2024 Allergic rhinitis due to pollen (ICD-10 - J30.1) Rosangela clearly suffers from atopic disease based upon history and our skin testing. Consider immunotherapy in the future if needed. 10/16/2024 Allergic rhinitis due to animal (cat) (dog) [...] (dog) hair and dander (ICD-10 - J30.81) 11/13/2024 Allergic rhinitis due to animal (cat) (dog) hair and dander (ICD-10 - J30.81) 05/22/2024 Other allergic rhinitis (ICD-10 - J30.89) 08/27/2024 Other allergic rhinitis (ICD-10 - J30.89) 09/11/2024 Other allergic rhinitis (ICD-10 - J30.89) 10/02/2024 Other allergic rhinitis (ICD-10 - J30.89) 10/16/2024 Other allergic rhinitis (ICD-10 - J30.89) 11/13/2024 Other allergic rhinitis (ICD-10 - J30.89) 11/13/2024 Other chronic allergic conjunctivitis (ICD-10 - H10.45) Given ocular signs and symptoms I encouraged allergy avoidance measures and meds as above. If symptoms persist, consider adding additional medications including intraocular antihistamine/mast cell stabilizer, PRN 10/16/2024 Other chronic allergic conjunctivitis (ICD-10 - H10.45) Given ocular signs and symptoms I encouraged allergy avoidance measures and meds as above. If symptoms persist, consider adding additional medications including intraocular antihistamine/mast cell stabilizer, PRN 10/02/2024 Other chronic allergic conjunctivitis (ICD-10 - [...] including intraocular antihistamine/mast cell stabilizer, PRN 05/22/2024 Allergy to other foods (ICD-10 - [...] do not appear to be food related 10/16/2024 Allergy to other foods (ICD-10 - Z91.018) skin testing to all food was negative at prior visit. Episodes do not appear to be food related 11/13/2024 Allergy to other foods (ICD-10 - Z91.018) skin testing to all food was negative at prior visit. Episodes do not appear to be food related 11/13/2024 Allergy status to narcotic agent status (ICD-10 - Z88.5) Appears to have allergic reaction with morphine, but only involved the IV site. May be a local reaction. No other symptoms. Avoid for now since tolerates Fentanyl. 10/16/2024 Allergy status to narcotic agent status (ICD-10 - Z88.5) Appears to have allergic reaction with morphine, but only involved the IV site. May be a local reaction. No other symptoms. Avoid for now since tolerates Fentanyl. 10/02/2024 Allergy status to narcotic agent status [...] last check is normal. Continue prn albuterol 10/16/2024 Mild intermittent asthma, uncomplicated (ICD-10 - J45.20) Spirometry at last check is normal. Continue prn albuterol 11/13/2024 Mild intermittent asthma, uncomplicated (ICD-10 - J45.20) Spirometry at last check is normal. Continue prn albuterol 10/02/2024 Shortness of breath (ICD-10 - R06.02) responded well to albuterol 08/21/2024 Other 11/27/2024 Other 12/06/2023 Other 12/20/2023 Other 01/03/2024 Other 01/17/2024 Other 01/31/2024 Other 02/14/2024 Other 02/28/2024 Other 03/13/2024 Other 03/27/2024 Other 04/10/2024 Other 04/24/2024 Other 05/08/2024 Other 05/22/2024 Other 06/05/2024 Other 06/19/2024 Other 07/10/2024 Other 07/24/2024 Other 08/07/2024 Other 08/27/2024 Other 09/11/2024 Other 10/02/2024 Other 10/16/2024 Other 10/30/2024 Other 11/13/2024 Other Plan Of Treatment Pending Test Test Name Order Date -CBC With Differential/Platelet 02/12/20 N METHYLHISTAMINE, URINE 02/25/2020 STREPTOCOCCUS PNEUMONIAE IGG AB (23 SERO TYPES) 02/25/2020 5-HIAA, 24-HOUR URINE 12/15/2021 ALPHA GAL PANEL 12/15/2021 PROSTAGLANDIN D2 (PG D2), URINE 12/16/19 LEUKOTRIENE E4, URINE 12/15/2021 LEUKOTRIENE E4, URINE 10/26/2022 LEUKOTRIENE E4, URINE 02/25/2020 -IgE Peanut w/Component Profile 10/29/19 Next Appt Details Provider Name:Romy archer, 11/27/2024 09:00:00 AM, [address], [place], [address], Provider Name:Romy archer, 12/11/2024 09:00:00 AM, [address] [place] [address], [phone], Insurance Providers Payer Name Payer Address Payer Phone Subscriber Number Group Number Insured Name Patient Relationship to Insured Coverage Start Date Coverage End Date [employer] [address] [place] [address] [id number] Anson Koenig Spouse - patient is the spouse of the insured 4 [facility] Choice Plus [address] [address] [place] [address] [id number] Anson Koenig Spouse - patient is the spouse of the insured 5 [employer] Copay Program [address] [place] [address] [place] [phone] [id number] Rosangela Koenig Self - patient is the [...] Surgical History Surgery Date(Month/Year) Muscle Biopsy 10/17/2006 [place] Teeth Removal 2008 D&C 2008 Medial Patella [...]
--- OUTSIDE RECORDS SUMMARY | 2024-11-27 06:52 | XMS_ITS | Encounter Summary ---
Author Organization [facility] Address [address] [place] [address] Phone Care Team Providers Care Youth Development Specialist Name Role Phone Shannan Maldonado MD Primary Care Provider [phone] Encounter Details Date Type Department Care Team [...] on file Legal Sex Female 1:34 AM RECYCLER Gender Identity Female 07/01/2022 7:31 PM RECYCLER Sexual Orientation Not on file documented as of this encounter Plan of Treatment Not on file documented as of this encounter Procedures Procedure Name Priority Date/Time Associated Diagnosis Comments SCAN - LABS 10/28/2021 documented in this encounter Results * SCAN - LABS (10/28/2021) us Provider Scanning Final Result documented in this encounter Visit Diagnoses Not on filedocumented in this encounter Care Teams Youth Development Specialist Relationship Specialty Start Date End Date Shannan Maldonado MD PCP - General 09/07/19 documented as of this encounter
--- OUTSIDE RECORDS SUMMARY | 2024-11-27 06:52 | XMS_ITS | Continuity of Care Document ---
Author Organization [facility] Address [address] [facility] [address] [place] [address] Phone Care Team Providers Care Cementer Machine Name Role Phone No Information Unavailable Unavailable Advance Directives Directive Yes / No Effective Date File Name No Information Encounters Encounter Description Practice Location Reason(s) For Visit Diagnoses Date Provider Providers Copied on Encounter [facility], [address] [facility] [address], [place], [place], [id number], [place] tel:[phone] [facility] No Information No Information Family History Family Member Type Diagnosis Age At Onset No Information Payers Payer name Insurance type Covered green party ID Authoriza tion(s) No Information Social [...]
--- OUTSIDE RECORDS SUMMARY | 2024-11-27 06:52 | XMS_ITS | Clinical Summary ---
Author Organization [facility] [employer] Address [address] [place] [address] Care Team Providers Care Roofing Sales Representative Name Role Phone Shannan Maldonado MD Primary Care Provider [phone] Source Comments [facility] [employer],non-[facility] Affiliates and Associated Physician Practices is amultiple site organization consisting of ambulatory clinics and hospital sitesin [place], [place], [place] and [place]. This disclosure is being madepursuant to the Care Everywhere program and may not contain all information available regarding this patient. Last updated 18.[facility] [employer] Allergies Active Allergy Reactions Criticality Noted Date Comments Adhesive Sensitivity Rash Medium 06/13/2019 Reaction: Rash, Blisters, Azithromycin 03/22/2016 Clarithromycin 03/22/2016 Duloxetine 03/22/2016 Meperidine Nausea and/or Vomiting 03/22/2016 Hydromorphone Angioedema High 02/28/2019 Medications * Be aware that medications may not be up to date on this document. Alwaysverify current medications with the patient. loratadine (CLARITIN) 10 MG tablet Take 10 mg by mouth once daily Active fluticasone propionate (FLONASE) 50 MCG/ACT nasal spray [place] 2 sprays into each nostril once daily Active trimethobenzam mercy (TIGAN) 300 MG capsule Take 1 capsule by mouth every 6 hours as needed for Nausea/Vomiting 30 capsule 9 Active Additional Information Patient not taking.Reported on 11/08/2024 traMADol (ULTRAM) 50 MG tablet Take 50 mg by mouth every 6 hours as needed for Pain Active Pseudoephedrin e HCl (SUDAFED 24 HOUR PO) Take 1 tablet by mouth as needed Active Multiple Vitamins-Clinical Allergist als (CENTRUM PO) Take 1 tablet by mouth once daily Active Cholecalcifero l (VITAMIN D-3) 125 MCG (5000 UT) Take 1 tablet by mouth once daily Active metoclopramide (Reglan) 10 MG tablet Take 1 (one) tablet by mouth once daily Active prochlorperazi ne (Compazine) 10 MG tablet Take 1 (one) tablet by mouth every 6 hours as needed for Nausea/Vomiting Active cyclobenzaprin e (Flexeril) 10 MG tablet Take 1 (one) tablet by mouth 2 times daily as needed for Muscle Spasms Active Xolair prefilled syringe Inject 300 (three hundred) mg subcutaneously every 14 days Active famotidine (Pepcid) 40 MG tablet Take 1 (one) tablet by mouth 2 times daily Active diazePAM (Valium) 5 MG tablet Take 1 (one) tablet by mouth 3 times daily as needed Active Active Problems Problem Noted Date Diagnosed Date Disorder of bursae and tendons in shoulder regio n 09/05/2019 Sprain of ribs, initial encounter 09/05/2019 Anaphylactic syndrome 06/13/2019 Assessment & Plan (06/13/2019 10:22 AM [facility]OR [facility]ER): POTS patients commonly have mast cell disorders. [...] 2015 Assessment & Plan (06/13/2019 10:19 AM [facility]OLE[facility] FLOOR LAYER): Would avoid high osmotic salt loads/salt tablets. Ok to just liberalize salt intake and eat banannas for potassium Postural orthostatic tachycardia syndrome 2015 Assessment & Plan (09/05/2019 10:06 AM [facility]OLE[facility] FLOOR LAYER): Her symptoms are well-controlled today. She dislocated [...] intake. Assessment & Plan (06/13/2019 10:47 AM LINOLE[facility] FLOOR LAYER): Postural orthostatic tachycardia syndrome (POTS) is a [...] 05/21/2010 Assessment & Plan (09/05/2019 10:07 AM LINOLEUM FLOOR LAYER): She had a routine screening echo today. Her aortic root today does not appear dilated by my view. Will await final read and call her if this is abnormal. Otherwise, q2yr echo. 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 Travel from Last 3 Months Immunizations Immunization Administration Dates Next Due INFLUENZA VACCINE 04/06/2019 Social History Tobacco Use Types Packs/Day Years Used Date Smoking Tobacco: Never Smokeless Tobacco: Never Tobacco Cessation:Counseling Given: Not Answered Alcohol Use Standard Drinks/Week Comments Yes 0 (1 standard drink = 0.6 oz pur e alcohol) rarely Comments No Sex and Gender Information Value Date Recorded Sex Assigned at Not on file Legal Sex Female 8:58 AM CDT Gender Identity Not on file Sexual Orientation Not on file Last Filed Vital Signs Vital Sign Reading Time Taken Comments Blood Pressure 120/92 11/08/2024 3:16 PM CDT Pulse 91 11/08/2024 3:16 PM CDT Temperature 36.8 C (98.2 F) 03/02/2019 7:52 AM CDT Respiratory Rate 18 03/02/2019 7:52 AM CDT Oxygen Saturation 98% 11/08/2024 3:16 PM CDT Inhaled Oxygen Concentration - - Weight 95.3 kg (210 lb) 11/08/2024 3:16 PM CDT Height 170.2 cm (5' 7) 11/08/2024 3:16 PM CDT Body Mass Index 32.89 11/08/2024 3:16 PM CDT Plan of Treatment Upcoming Encounters Date Type Department Care Team (Late st Contact Info) Description 12/12/2024 11:00 AM CDT Ancillary Procedure [facility] - Echosonography [address] [phone] 02/07/2025 1:00 PM CDT Office Visit [facility] - Cardiology [address] [phone] Javed Julio MD [address] [place] [phone] Health Maintenance Due Date Last Done Comments PAP SMEAR 1991 HEPATITIS C SCREENING 05/11/2009 DTAP/TDAP/TD VACCINES (1 - Tdap) 2010 HEPATITIS B VACCINE (1 of 3 - 19+ 3-dose series) 2010 COVID-19 VACCINE (1 - 2023-2 5 season) 2024 DEPRESSION SCREENING 07/03/2024 INFLUENZA VACCINE (Season Ended) 2025 04/06/20 19 ZOSTER VACCINE (1 of 2) 2041 HIV [...] Procedure Name Priority Date/Time Associated Diagnosis Comments EKG 12-LEAD Routine 11/08/2024 3:23 PM CDT Establishing care with new doctor, encounter for HIV-1 HIV-2 ANTIGEN/ANTIBODY STAT 02/28/2019 1:57 PM CDT from Last 3 Months or Most Recently Relevant to Health Maintenance Results * EKG 12-LEAD (11/08/2024 3:23 PM CDT) Ventricular Rate 105 BPM [facility] Atrial Rate 105 BPM [facility] P-R Interval 158 ms [facility] QRS Duration ms 100 ms [facility] Q-T Interval ms 376 ms [facility] QTC Calculation (Bezet) 496 ms [facility] Calculated P [place] 51 degrees [facility] Calculated R [place] 38 degrees [facility] Calculated T [place] 37 degrees [facility] Interpretation EKG SINUS TACHYCARDIA OTHERWISE NORMAL ECG WHEN COMPARED WITH ECG OF 28-FEB-2019 17:25, SINUS RATE HAS SLOWED Confirmed by fellow NERI RAMIREZ MD ([id number]) on 11/12/2024 4:29:46 PM Confirmed by SILAS RAZO MD ([id number]) on 11/12/2024 9:50:00 PM [facility] 11/08/2024 3:23 PM CDT 11/12/2024 9:50 PM CDT us Javed Julio MD ECG ORDERABLES Edited Result - Final MICKUCASHARONDA AVENDANO * HIV-1 HIV-2 ANTIGEN/ANTIBODY (02/28/2019 1:57 PM CDT) HIV Antigen/Antibod y 1 & 2 Non-reacti ve Non-react hayder 02/28/2019 4:05 PM CDT [facility] Comment: Neither HIV-1 p24 Antigen nor HIV-1/HIV-2 Antibodies are detected. Blood BLOOD SPECIMEN / Unknown Venipuncture / Unknown 02/28/2019 1:57 PM CDT 02/28/2019 3:22 PM CDT Abel Barrientos MD LAB - HEMATOLOGY ORDERABLES Final Result [address] [phone] from Last 3 Months or Most Recently Relevant to Health Maintenance Insurance * Guarantor: ROSANGELA KOENIG Account Type Relation to Patient Date of Phone Billing Address Personal/Family Spouse Advance Directives * Full Code (Latest Code Status on File) Date Activated Date Inactivated Comments 02/28/2019 11:41 PM 03/02/2019 12:34 PM * Full Code Date Activated Date Inactivated Comments 02/28/2019 8:46 PM 02/28/2019 11:41 PM Care Teams Roofing Sales Representative Relationship Specialty Start Date End Date Shannan Maldonado MD [address] [place] [address] PCP - General Family Medicine 03/22/16
--- OUTSIDE RECORDS SUMMARY | 2024-11-27 06:52 | XMS_ITS | Data Portability ---
Author Organization [place] [facility] [place] WILLARD [email or web address] Address [address] [place] [address] Care Team Providers Care [employer] Name Role Phone JOSH GONZALES Primary Care Provider Assessment Encounter Date Assessment Date Assessment LastModified by Organization Details LastModified Time 02/03/2020 02/03/2020 Time spent with patient:_30_mi juwan. For Telephone Audio Only Visits: Have you been seen in the last 7 days for the same or similar condition by an [facility] [place] provider? No I did not request that [...] rologist referral 2022 023 MY perez MD, [address], [place], [address], 3 12:45:36 Procedures None recorded. Surgeries None recorded. Imaging None recorded. Medication Orders cyclobenza emily 10 mg tablet 2024 025 [id number], [address], [place], [place], [id number], 5 14:27:32 cyclobenza emily 10 mg tablet 2023 024 [facility] #99650, [address], [place], [place], [id number], 4 08:35:50 cyclobenza emily 10 mg tablet 2023 024 [facility]677, [address], [place], [place], [id number], 4 12:12:49 cyclobenza emily 10 mg tablet 2022 023 [facility] #70308, [address], [place], [place], [id number], 3 07:57:02 cyclobenza emily 10 mg tablet 2019 020 [email or web address] [facility], [address], [place], [place], [id number], 3 09:31:39 Patient TargetsNo targets recorded. Patient Instructions Encounter Date Encounter Id Patient Instructions Last Modified By Organization Details Last Modified Time 02/03/2020 [id number] hand-washing: ca re instructions btinkle Not available [...] Will renew cyclobenzaprine. 2) Can discuss with director of rotc installing posts and rubber bands to help stablize the jaw in the interim. 3) If further issues with the navicual/talar joint, may want sr technical sales consultant to speak with or you to see Dr. Sarath Medrano, a sr technical sales consultant with vast experience in [place] currently in [place]. May also want to consider stem cell injection in the joint as well. 4) Return to clinic in 6 months or earlier as needed I spent 30 minutes with the patient with greater than 20 minutes on counseling and coordination of care. btinkle Not available 02/03/2020 11:39:03 02/17/2023 [id number] 1) Encouraged to maintain fluids at 100 [...] on gastroparesis and lowFODMAP. 4) Referral to [facility] 5) Will renew cyclobenzaprine 10mg to [...] record. btinkle Not available 02/20/2023 08:08:29 08/25/2023 [id number] 1) Continue with home exercise program 2) [...] record. btinkle Not available 08/25/2023 12:12:42 02/09/2024 [id number] 1) Continue home exercises 2) Will renew [...] record. 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 Denis Bush MD [address] [place] [address], [address], [place], [address] , [place] [facility] 5 14:31:39 Pain of multiple joints 32618051 Active 2018 Not Available [facility] 3 03:21:18 Muscle pain 54290959 Active 2018 Not Available [facility] 3 03:21:18 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 Procedures Surgical History Date Name Laterality Status Provider Name and Address Organization Details Recorded Time 07/03/19 24 Foot Surgery completed Thelma Shabazz [place] [facility] 09/11/2024 14:05:06 07/03/19 22 Orthopedic surgery ss completed Calista Ovalle [place] [facility] 02/17/2023 09:39:02 04/08/20 19 Fall Risk Assessment ADULT completed John Greer LPN [place] [facility] 04/08/2019 09:34:06 11/13/19 16 tarsal tunnel release completed Denis Bush MD [address] [place] [address], [address] [place] [address], [address], [place] [facility] 04/09/2019 16:03:02 11/01/19 11 tonsillectomy completed Denis Bush MD [address] [place] [address], [address], [place], [address], [place] [facility] 04/09/2019 16:03:25 11/07/19 10 Knee Surgery completed Denis Bush MD [address] [place] [address], [address], [place], [address], [place] [facility] 04/09/2019 16:02:02 Imaging Results None recorded. Procedure Notes None recorded. Medical Equipment None Reported. Allergies Allergen ID Allergen Name Allergen Category Reaction Reaction Severity Criticality Documentation Date Start Date Code Code System Note Provider Name and Address Organization Details Recorded Time 4566702 Cymbalta medicatio n Not available Not available Not available 04/08/2019 13105 4 RxNorm John Greer RIDDLER OPERATOR null, [place] [facility] 9 09:26:54 9813754 Biaxin medicatio n anaphylax is Not available Not available 04/08/2019 86429 9 RxNorm John Greer RIDDLER OPERATOR null, [facility] 9 09:27:19 8175526 Demerol medicatio n vomiting Not available Not available 04/08/2019 92791 1 RxNorm John Kimberton RIDDLER OPERATOR null, [facility] 9 09:27:38 1930893 azithromy benedict medicatio n other Not available Not available 04/08/2019 06184 RxNorm vomit ing, sever stoma ch cramp ting, diarr hea John Greer RIDDLER OPERATOR null, [facility] 9 09:28:40 3010698 Dilaudid medicatio n hives lighthead edness Not available Not available Not available 04/08/2019 65187 3 RxNorm John Kimberton RIDDLER OPERATOR null, [facility] 9 09:29:19 0920999 hydrocodo ne Not available anaphylax is severe Not available 02/03/2020 5489 RxNorm Tabby Yaron null, [place] [facility] 0 08:04:23 5278669 lorazepam medicatio n Not available Not available Not available 02/09/2024 6470 RxNorm Calista Vasquez null, [place] [facility] 4 08:11:35 Medications Name Sig Start Date [...] Relief 50 mcg/actuat ion nasal spray,susp ension [place] 1 spray every day by intranas al [...] Available N ot Available Vitals Date Recorded Body height Provider Name an d Address Organization Details Last Updated DateTime 08/25/2023 172 cm Chap[facility] 08/25/2023 11:20:45 Date Recorded Heart rate Body height Body mass index (BMI) Body weight Systolic blood pressure Diastolic blood pressure Provider Name and Address Organization Details Last Updated DateTime 3 102 /min 172 cm 29.4 kg/m2 53572 g 138 mm[Hg] 88 mm[Hg] Calista Justiceby [facility] 3 09:40:12 Social History Question Answer Notes LastModified by Organizat ion Details LastModified Time Tobacco Smoking Status Never Smoker Vinh Huizar LPN [facility] 04/08/2019 09:19:44 Are You Blind Or Do You Have Difficulty Seeing? Yes Glasses [email or web address] Information not available 09/11/2024 What Is Your Level Of Caffeine Consumption? Moderate [email or web address] Information not available 09/11/2024 Are You Deaf Or Do You Have Serious Difficulty Hearing? No [email or web address] Information not available 09/11/2024 What Type Of Diet Are You Following? REGULAR [email or web address] Information not available 02/17/2023 Physical Therapy No Informat ion not available 02/03/2020 Speech Therapy No Informatio n not available 02/03/2020 Occupational Therapy No Information not available 02/03/2020 Have You Had A Fever And/or Symptoms Of A Lower Respiratory Illness (cough, Difficulty Breathing, Etc)? No Information not available 02/03/2020 What Was The Date Of Your Most Recent Tobacco Screening? 09/11/2024 [email or web address] Information not available 09/11/2024 Do You Have Any Pets? Yes [email or web address] Information not available 02/17/2023 Do You Use Your Seat Belt Or Car Seat Routinely? Yes Information not available 02/17/2023 Do You Have Smoke And Carbon Monoxide Detectors In Your Home? Yes [email or web address] Information not available 02/17/2023 How Much Tobacco Do You Smoke? No [email or web address] Information not available 04/08/2019 How Many Years Have You Smoked Tobacco? 0 [email or web address] Information not available 04/08/2019 Are You Currently In School? No [email or web address] Information not available 02/17/2023 Sex: Female Functional Status Question Answer Note LastModified by Organizat ion Details LastModified Time Do you use any illicit or recreational drugs? No Information not available 09/11/2024 What is your level of alcohol consumption? Occasional [email or web address] Information not available 02/17/2023 Do you or have you ever used smokeless tobacco? Never used smokeless tobacco [email or web address] Information not available 04/08/2019 Are you currently employed? No [email or web address] Information not available 02/17/2023 Do you or have you ever used e-cigarettes or vape? Never used electronic cigarettes [email or web address] Information not available 04/08/2019 What is your exercise level? None [email or web address] Information not available 09/11/2024 Mental Status None recorded. Family History Nothing Reported. Medical History No medical history recorded. Gynecological HistoryNo gynecological history recorded. 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 05918885 Q79.62 Postural o rthostatic tachycardia syndrome 710977826 I95.1 [id number] Denis Bush MD IND_PED_D GH_DOC [address], [place] [address] [place] [address] 2 02/03/2020 08:02:45 02/03/2020 11:36:44 Health education given 982349686 Z71.9 Muscle pain 87714728 M79 .10 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 10798070 Q79.62 [id number] Denis Bush MD IND_PED_D [facility]_DOC [address], [place] [address] [place] [address] 2 02/17/2023 09:19:03 02/17/2023 10:23:58 Nausea and vomiting 44582592 R11.2 ?dysautono rosy Postural o rthostatic tachycardia syndrome 109389452 I95.1 Muscle pain 15272958 M79 .10 Pain of mu ltiple joints 83524430 M25.50 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 57246764 Q79.62 [id number] Denis Bush MD IND_PED_D GH_DOC [address], [place] [address] [place] [address] 2 08/25/2023 11:20:24 08/25/2023 12:13:59 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 71825322 Q79.62 Pain of mu ltiple joints 99746383 M25.50 Postural o rthostatic tachycardia syndrome 122523944 I95.1 Muscle pain 54902191 M79 .10 [id number] Denis Bush MD IND_PED_D GH_DOC [address] [place], [place] [address] [place] [address] 2 02/09/2024 08:10:27 02/09/2024 08:36:09 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 41805207 Q79.62 Pain of mu ltiple joints 02349632 M25.50 Postural o rthostatic tachycardia syndrome 847568486 I95.1 Muscle pain 18438670 M79 .10 [id number] Denis Bush MD IND_PED_D GH_DOC [address] [place] [address] 09/11/2024 14:02:38 09/11/2024 14:33:31 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 68586182 Q79.62 Postural o rthostatic tachycardia syndrome 328715217 I95.1 Muscle pain 29253258 M79 .10 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 4021080 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 Health Concerns Section Related Observation LastModified by Organization Detai ls LastModified Time None Recorded Concern Status LastModified by Organization Details LastModified Time None Recorded Advance Directives Directive None Recorded Payers Insurance Date Sequence Insurance Name Policy Number Policy Hilario Covered Member ID Hilario Member ID Guarantor Name 09/09/2024 1 *SELF PAY* Ca timothy Keonig 09/09/2024 1 [employer] [id number] Anson Koenig [id number] Rosangela Koenig 09/11/2024 1 [facility] [id number] Armand Koenig [id number] Rosangela Koenig Notes Date Note Type Note Provider Name and Address Organization Details Recorded Time 02/03/2020 text/html Patient acknowle dged, consented, and participated in this telephone - audio and video visit which was conducted using secure real time audio and video. Patient co-pay amounts may apply to virtual services when coverage is available per your payor. If coverage is not available, patient assumes responsibility for payment. 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 She was last seen on 04/08/19. Rosangela has had a navicular/talus dislocation. She is followed by a sr technical sales consultant and orthopedist. She has gone through two [...] follow up. She is currently working an director of rotc to fix her bite before consideration of an oral appliance. 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 She reports occasional migrating muscle spasms often involving her neck and back. Rosangela is having oral ulcers. She was referred to an curber to look at possible mast cell involvement. Denis Bush MD [address], [place], [address], [facility] 02/03/2020 11:39:42 02/17/2023 text/html Rosangela [...] having idiopathic anaphylaxis. She has seen an air pumper who has told her it is not mast cell activation syndrome. She has been taking antihistamines and recently placed on Xolair. Rosangela has benefited from use of cyclobenzaprine but she has not been using it for fear of dependency. Rosangela has also had three syncopal convulsions. No MRI and no further workup. Denis Bush MD [address], [address], [place], [address], [place] [facility] 02/20/2023 08:08:48 08/25/2023 text/html Patient acknowle dged, consented, and participated in this telephone - audio and video visit which was conducted using secure real time audio and video. Patient co-pay amounts may apply to virtual services when coverage is available per your payor. If coverage is not available, patient assumes responsibility for payment. 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 She was last seen on 02/17/23. Rosangela states she is doing ok. She did see local genetics who referred [...] (daily and as needed) which is helping. Dneis Bush MD [address] , [address], [place], [address], [place] [facility] 08/25/2023 12:13:27 02/09/2024 text/html Patient acknowle dged, consented, and participated in this telephone - audio and video visit which was conducted using secure real time audio and video. Patient co-pay amounts may apply to virtual services when coverage is available per your payor. If coverage is not available, patient assumes responsibility for payment. Yes HPI: Rosangela is a 33yo with hypermobile [...] recently. Denis Bush MD [address], [place], [address], [place] [facility] 02/09/2024 08:35:35 09/11/2024 text/html Rosangela is a [...] MD [address] , [address], [place], [address], [place] [facility] [place] 09/11/2024 14:32:39 OBGyn Episode No OBEpisode recorded.
--- OUTSIDE RECORDS SUMMARY | 2024-11-27 06:53 | XMS_ITS | Clinical Summary ---
Author Organization [facility] Geena Sue Extdamian nsion Address [address] [place] [address] Care Team Providers Care Metal Off Bearer Name Role Phone Shannan Maldonado MD Primary Care Provider [phone] Allergies Active Allergy Reactions Criticality Noted Date [...] day as needed for anxiety 20 tablet 1 Active pseudoephedrine ER (SUDAFED) 120 mg 12 [...] by mouth 2 (two) times a day 3 Active metoclopramide (REGLAN) 10 mg tablet Take 1 tablet (10 mg total) by mouth 2 (two) times a day as needed 3 Active triamcinolone (KENALOG) 0.1 % paste Apply 0.25 inches to teeth 2 (two) times a day as needed for mucositis Active prochlorperazin e (COMPAZINE) 10 mg tablet Take 1 tablet (10 mg total) by mouth every 6 (six) hours as needed for nausea or vomiting Active cyclobenzaprine (FLEXERIL) 10 mg tablet Take 1 tablet (10 mg total) by mouth 2 (two) times a day Active omalizumab (Xolair) 300 mg/2 mL syringe Inject 2 mL (300 mg total) under the skin every 14 (fourteen) days Active albuterol HFA (PROVENTIL HFA,VENTOLIN HFA,PROAIR HFA) 90 mcg/actuation inhaler Inhale 1 puff every 4 (four) hours as needed Active acetaminophen-a spirin-caffeine (EXCEDRIN MIGRAINE) 250-250-65 mg per tablet Take 1 tablet by mouth every 6 (six) hours as needed Active Pulmicort Flexhaler 90 mcg/actuation inhaler Inhale 1-2 puffs 2 (two) times a day 5 Active ipratropium-alb uteroL (DUO-NEB) 0.5-2.5 mg/3 mL nebulizer solutionIndicat ions:SOB (shortness of breath) Take 3 mL by nebulization every 6 (six) hours 180 mL 3 5 Active predniSONE (DELTASONE) 20 mg tablet Take 3 tablets (60 mg) by mouth as directed Taper 5 Active EPINEPHrine 0.3 mg/0.3 mL auto-injection syringeIndicati ons:Anaphylaxis Inject 0.3 mL (0.3 mg total) into the muscle as instructed once for 1 dose 0.3 mL 5 Active ibuprofen (ADVIL,MOTRIN) 600 mg tablet 1 tablet (600 mg total) every 6 (six) hours as needed 1 Active cycloSPORINE modified (GENGRAF,NEORAL ) 100 mg capsule Take 1 capsule (100 mg total) by mouth daily 30 capsule 2 5 Active Additional Information Patient not taking.Reason: hasn't started yet, Reported on 11/19/2024 Active Problems Problem Noted Date Diagnosed Date [...] Encounters Date Type Department Care Team Description 11/21/2024 2:20 PM CDT Therapy [facility] Otolaryngology [address] [facility] [address] [place] [address] Sima Trent SLP Sensation of swollen throat (Primary Dx); Dysphonia 11/21/2024 2:20 PM CDT Office Visit [facility] ENT [address] [facility] [address] [place] [address] Giovana Loaiza MD Sensation of swollen throat 11/19/2024 10:00 AM CDT Office Visit [facility] Allergy and Immunology [address] [facility] [address] [place] [address] Oneyda Vaughan NP Idiopathic urticaria (Primary Dx); Mast cell activation syndrome; SOB (shortness of breath); Allergic reaction, subsequent encounter 10/11/2024 Telephone [facility] Allergy and Immunology [address] [facility] [address] [place] [address] Ame Pulido RN 10/09/2024 10:00 AM CDT Office Visit [facility] Allergy and Immunology [address] [facility] [address] [place] [address] Susan Suarez MD Idiopathic urticaria (Primary Dx); Mast cell activation syndrome; SOB (shortness of breath) 10/07/2024 Telephone [facility] ENT [address] [facility] 11th [place] [address] [place] [address] Umm Aguirre MS 10/03/2024 11:35 AM CDT - 10/03/2024 1:37 PM CDT Emergency [facility] Emergency Department [address] [place] [address] Abhay Velez MD Allergic reaction, initial encounter (Primary Dx) Discharge Disposition: Discharge to home or self care 10/02/2024 Orders Only [facility] Allergy and Immunology [address] [place] [address] [address] [place] [address] Oneyda Vaughan NP Sensation of swollen throat (Primary Dx) 10/02/2024 Orders Only [facility] Allergy and Immunology [address] [place] [address] [address] [place] [address] Oneyda Vaughan NP High risk medication use (Primary Dx) 10/01/2024 Telephone [facility] Infectious Diseases [address] [facility] [address] [place] [address] Cordelia Rudd RMA 09/30/2024 1:00 PM CDT Office Visit [facility] Allergy and Immunology [address] [facility] [address] [place] [address] Oneyda Vaughan NP SOB (shortness of breath) (Primary Dx) 09/30/2024 Telephone [facility] Allergy and Immunology [address] [facility] [address] [place] [address] Ame Pulido RN 09/28/2024 7:55 PM CDT - 09/28/2024 10:39 PM CDT Emergency [facility] Emergency Department [address] [place] [address] Simran Frank MD Allergic reaction, initial encounter (Primary Dx) Discharge Disposition: Discharge to home or self care 09/27/2024 3:49 AM CDT - 09/27/2024 6:10 AM CDT Emergency [facility] Emergency Department [address] [place] [address] Ferdinand Rivera DO Allergic reaction, initial encounter (Primary Dx); Jaw pain Discharge Disposition: Discharge to home or self care 09/23/2024 4:55 PM CDT - 09/24/2024 1:30 PM CDT Hospital Encounter [place] [address] [address] [place] [address] Samuel Bowen MD Winston, MD Nimesh Galaviz Md Shahin, MD Allergic reaction, initial encounter (Primary Dx) Discharge Disposition: Discharge to home or self care 09/01/2024 2:02 PM REVERBERATORY FURNACE SUPERVISOR - 09/05/2024 11:38 AM REVERBERATORY FURNACE SUPERVISOR Hospital Encounter [place] [address] [place] [address] Wil Monteiro MD Gaspe Mudiyanselage, MD Tobin Vinson, Venkat Robin MD Allergic reaction, initial encounter (Primary Dx) Discharge Disposition: Discharge to home or self care from Last 3 Months Surgical History Surgery Date Site/Laterality Comments VT BIOPSY MUSCLE SUPERFICIAL Biopsy Muscle - 2006 (Added by TW Conv) KNEE SURGERY Knee Surgery - ligament reconstruction 10/2009 (Added by TW Conv) VT RELEASE TARSAL TUNNEL Decompression Tarsal Tunnel Release Left Foot - (Added by TW Conv) VT TONSILLECTOMY PRIMARY/SECONDARY <AGE 12 Tonsillectomy - (Added by TW Conv) WISDOM TOOTH EXTRACTION Oral Surgery Tooth Extraction Fyffe Tooth - (Added by TW Conv) VT COLONOSCOPY FLX DX W/LEX J SPEC WHEN PFRMD Colonoscopy - (Added by TW Conv) VT DILATION & CURETTAGE DX&/ THER NONOBSTETRIC Dilation [...] Packs/Day Years Used Date Smoking Tobacco: Never Passive Smoke Exposure: Never Smokeless Tobacco: Never Tobacco Cessation:Counseling Given: Not Answered Alcohol Use Standard Drinks/Week Comments Not Currently 0 (1 standard drink = 0.6 oz pur e alcohol) [facility] Utilities Answer Date Recorded In the past 12 months has [employer], gas, oil, or water [employer] threatened to shut off services in your [...] often do you attend chur ch or orthodox services? Never 09/24/2024 Do you belong to any clubs o r organizations such as synagogue groups, unions, fraternal or athletic groups, or [...] any time in the past 12 m [facility], were you homeless or living in a fdc (including now)? No 09/24/2024 Personal Safety Answer Date Recorded Have you ever been in or are you currently in a harmful physical or emotional relationship or is someone making you feel afraid or unsafe? Denies 10/03/2024 Comments No Sex and Gender Information Value Date Recorded Sex Assigned at Not on file Legal Sex Female 1:34 AM REVERBERATORY FURNACE SUPERVISOR Gender Identity Female 07/01/2022 7:31 PM REVERBERATORY FURNACE SUPERVISOR Sexual Orientation Not on file Obstetrics History Last Filed Vital Signs Vital Sign Reading Time Taken Comments Blood Pressure 128/92 11/19/2024 9:56 AM CDT Pulse 110 11/19/2024 9:56 AM CDT Temperature 36.8 C (98.3 F) 11/19/2024 9:56 AM CDT Respiratory Rate 20 10/03/2024 1:36 PM CDT Oxygen Saturation 99% 11/19/2024 9:56 AM CDT Inhaled Oxygen Concentration - - Weight 95.8 kg (211 lb 3.2 oz) 11/19/2024 9:56 A M CDT Height 170.2 cm (5' 7) 11/19/2024 9:56 AM CDT Body Mass Index 33.08 11/19/2024 9:56 AM CDT Plan of Treatment Health Maintenance Due Date Last Done Comments Cervical Cancer Screening 1991 Hepatitis C Screening 1991 Varicella Vaccines (1 of 2 - 13+ 2-dose series) 2004 Hepatitis B Screening 2009 Regular Well Visit/Exam 18-64 2009 Pneumococcal vaccine <65 (2 of 2 - PCV) 02/24/2021 02/25/2020 Influenza Vaccine (Season Ended) 2025 04/26/2019, 04/06/2019, 07/13/2018, Additional history exists Depression Screening 09/01/2025 09/01/2024, 09/02/19 DTaP/Tdap/Td Vaccine (2 - Td or Tdap) 07/10/2027 07/10/2017 HPV Vaccines Aged Out No longer eligi ble based on patient's age to complete this topic Procedures Procedure Name Priority Date/Time Associated Diagnosis Comments IMMATURE CELLS Routine 10/02/2024 11:30 AM CDT MICROSCOPIC EXAMINATION Routine 10/03/19 11:30 AM CDT URINALYSIS AND REFLEX TO MICROSCOPIC Routine 10/02/2024 11:30 AM CDT High risk medication use COMPREHENSIVE METABOLIC PANEL Routine 10/02/2024 11:30 AM CDT High risk medication use CBC WITH AUTO DIFFERENTIAL Routine 10/02/2024 11:30 AM CDT High risk medication use CYCLOSPORINE A LEVEL, TROUGH Routine 10/02/2024 11:30 AM CDT High risk medication use XR NECK SOFT TISSUE ED 09/28/2024 9 [...] CDT XR MANDIBLE 4 OR MORE VIEWS Critical/Life-T hreatening 09/23/2024 8:29 PM CDT VT CLOSED TX STERNOCLAVICULAR DISLC W/MANIPULATION Routine 09/23/2024 [...] 4:27 PM CDT CBC WITHOUT DIFFERENTIAL Routine 09/05/2024 4:27 AM REVERBERATORY FURNACE SUPERVISOR CBC WITHOUT DIFFERENTIAL Routine 09/04/2024 4:25 AM REVERBERATORY FURNACE SUPERVISOR TROPONIN T HIGH-SENSITIVITY 2-HOUR Timed 09/01/2024 5:11 PM REVERBERATORY FURNACE SUPERVISOR URINALYSIS AND REFLEX TO MICROSCOPIC AND CULTURE STAT 09/01/2024 4:58 PM REVERBERATORY FURNACE SUPERVISOR XR CHEST 1 VIEW ED 09/01/2024 3:05 PM REVERBERATORY FURNACE SUPERVISOR EGFR STAT 09/01/2024 2:59 PM REVERBERATORY FURNACE SUPERVISOR DIFFERENTIAL AUTO STAT 09/01/2024 2:5 9 PM REVERBERATORY FURNACE SUPERVISOR MAGNESIUM STAT 09/01/2024 2:59 PM REVERBERATORY FURNACE SUPERVISOR THYROID FUNCTION CASCADE STAT 09/01/2024 2:59 PM REVERBERATORY FURNACE SUPERVISOR TROPONIN T HIGH-SENSITIVITY SERIES (BASELINE, 2HR, 4HR, 6HR) STAT 09/01/2024 2:59 PM REVERBERATORY FURNACE SUPERVISOR BASIC METABOLIC PANEL STAT 09/01/2024 2:59 PM REVERBERATORY FURNACE SUPERVISOR CBC WITH AUTO DIFFERENTIAL STAT 09/01/2024 2:59 PM REVERBERATORY FURNACE SUPERVISOR POCT HCG, URINE Routine 09/01/2024 2:28 PM REVERBERATORY FURNACE SUPERVISOR ECG 12-LEAD Routine 09/01/2024 1:54 PM REVERBERATORY FURNACE SUPERVISOR from Last 3 Months Results * (ABNORMAL) Immature Cells (10/02/2024 11:30 AM CDT) Pathologist [facility] Metamyelocyte 1(H) 0 - 0 % [facility] - 01 Myelocyte 5(H) 0 - 0 % [facility] - 01 10/02/2024 11:3 0 AM CDT 10/02/2024 Narrative [facility] - 10/03/2024 11:10 AM CDT Performed at: 01 [place] [id number] Configuration Management Specialist: Lucio Ellison PhD, Phone: [phone] Susan Suarez MD LAB BLOOD ORDERABLES Fi nal Result [facility] - 01 * (ABNORMAL) Cyclosporine A level trough (10/02/2024 11:30 AM CDT) Pathologist [facility] Cyclosporine by Immunoassay <25(L) 100 - 400 ng/mL [facility] - 01 Comment: Verified by repeat analysis Therapeutic: Renal Transplant 100 - 250 Liver Transplant 100 - 400 Cardiac Transplant 100 - 400 Bone Marrow 200 - 300 Detection Limit = 25 Cyclosporine assay performed by [employer] Immunoassay. If preferred testing methodology for cyclosporine is Liquid Chromatography Tandem Mass Spectrometry (LC-MS/MS), please use test code [id number]. For testing performed by Immunoassay, please use test code [id number]. Blood 10/02/2024 11:3 0 AM CDT 10/02/2024 Narrative [facility] - 10/03/2024 3:10 PM CDT Performed at: [address] [place] [id number] Configuration Management Specialist: Lucio Ellison PhD, Phone: [phone] Susan Suarez MD LAB BLOOD ORDERABLES Fi nal Result Performing Organization Address [facility] de Phone Number [facility] - 01 * (ABNORMAL) Microscopic Examination (10/02/2024 11:30 AM CDT) Pathologist [facility] WBC, ur 0-5 0 - 5 /hpf [facility] - 01 RBC, ur 3-10(A) 0 - 2 /hpf [facility] - 01 Epithelial cells, non-renal, ur >10(A) 0 - 10 /hpf [facility] - 01 Casts None seen None seen /lpf [facility] - 01 Bacteria, ur Moderate(A ) None seen/Few [facility] - 01 10/02/2024 11:3 0 AM CDT 10/02/2024 Narrative [facility] - 10/03/2024 7:09 AM CDT Performed at: [address] [place] [id number] Configuration Management Specialist: Lucio Ellison PhD, Phone: [phone] Susan Suarez MD LAB BLOOD ORDERABLES Fi nal Result Performing Organization Address [facility] de Phone Number [facility] - 01 * (ABNORMAL) Urinalysis reflex to microscopic (10/02/2024 11:30 AM CDT) Pathologist [facility] Specific [place] 1.015 1.005 - 1.030 [facility] - 01 pH, ur 7.5 5.0 - 7.5 [facility] - 01 Color, ur Yellow Yellow [facility] - 01 Appearance, ur Clear Clear [facility] - 01 Leukocyte esterase, ur Negative Negative [facility] - 01 Protein, ur Trace Negative/Tra ce [facility] - 01 Glucose, ur Negative Negative [facility] - 01 Ketones, ur Negative Negative [facility] - 01 Blood, ur 2+(A) Negative [facility] - 01 Bilirubin, ur Negative Negative [facility] - 01 Urobilinogen, quant, ur 0.2 0.2 - 1.0 mg/dL [facility] - 01 Nitrites, ur Negative Negative [facility] - 01 Urinalysis, microscopic exam See below: [facility] - 01 Comment:Microscopic was doe cated and was performed. Urine 10/02/2024 11:3 0 AM CDT 10/02/2024 Narrative [facility] - 10/03/2024 7:09 AM CDT Performed at: [address] [id number] Configuration Management Specialist: Lucio Ellison PhD, Phone: [phone] Susan Suarez MD LAB URINE ORDERABLES Fi nal [facility] 01 * (ABNORMAL) CBC with auto differential (10/02/2024 11:30 AM CDT) WBC 15.2(H) 3.4 - 10.8 x10E3/uL [facility] - 01 RBC 4.50 3.77 - 5.28 x10E6/uL [facility] - 01 Hgb 11.0(L) 11.1 - 15.9 g/dL [facility] - 01 Hct 36.8 34.0 - 46.6 % [facility] - 01 MCV 82 79 - 97 fL [facility] - 01 MCH 24.4(L) 26.6 - 33.0 pg [facility] - 01 MCHC 29.9(L) 31.5 - 35.7 g/dL [facility] - 01 Rdw 15.4 11.7 - 15.4 % [facility] - 01 Platelets 490(H) 150 - 450 x10E3/uL [facility] - 01 Neutrophils pct 45 Not Estab. % [facility] - 01 Lymphs pct 42 Not Estab. % [facility] - 01 Monocytes pct 7 Not Estab. % [facility] - 01 Eosinophils pct 0 Not Estab. % [facility] - 01 Basophil pct 0 Not Estab. % [facility] - 01 Immature Cells Note [facility] - 01 Neutrophil abs 6.8 1.4 - 7.0 x10E3/uL [facility] - 01 Lymphs (Absolute) 6.4(H) 0.7 - 3.1 x10E3/uL [facility] - 01 Monocyte abs 1.1(H) 0.1 - 0.9 x10E3/uL [facility] - 01 Eosinophils, abs 0.0 0.0 - 0.4 x10E3/uL [facility] - 01 Basophils, abs 0.0 0.0 - 0.2 x10E3/uL [facility] - 01 Hematology Comments: Note: [facility] - 01 Comment:Manual differential was performed. Blood 10/02/2024 11:3 0 AM CDT 10/02/2024 Narrative [facility] - 10/03/2024 11:10 AM CDT Performed at: [address] [place] [id number] Configuration Management Specialist: Lucio Ellison PhD, Phone: [phone] us Susan Suarez MD LAB BLOOD ORDERABLES Fi nal Result [facility] * Comprehensive metabolic panel (10/02/2024 11:30 AM CDT) Pathologist [facility] Glucose 70 70 - 99 mg/dL [facility] - 01 BUN 13 6 - 20 mg/dL [facility] - 01 Creatinine, Serum 0.77 0.57 - 1.00 mg/dL [facility] - 01 BUN/creat ratio 17 9 - 23 [facility] - 01 Sodium 140 134 - 144 mmol/L [facility] - 01 Potassium, sr 3.7 3.5 - 5.2 mmol/L [facility] - 01 Chloride 99 96 - 106 mmol/L [facility] - 01 CO2 24 20 - 29 mmol/L [facility] - 01 Calcium 8.8 8.7 - 10.2 mg/dL [facility] - 01 Protein, sr 6.0 6.0 - 8.5 g/dL [facility] - 01 Albumin 4.1 3.9 - 4.9 g/dL [facility] - 01 Globulin, Total 1.9 1.5 - 4.5 g/dL [facility] - 01 Bilirubin, Total <0.2 0.0 - 1.2 mg/dL [facility] - 01 Alk phos 68 44 - 121 IU/L [facility] - 01 AST 14 0 - 40 IU/L [facility] - 01 ALT 24 0 - 32 IU/L [facility] - 01 Blood 10/02/2024 11:3 0 AM CDT 10/02/2024 Narrative [facility] - 10/03/2024 8:12 AM CDT Performed at: - [address] [id number] Configuration Management Specialist: Lucio Ellison PhD, Phone: [phone] us Susan Suarez MD LAB BLOOD ORDERABLES Fi nal [facility] - 01 * XR Neck Soft Tissue (09/28/2024 9:25 PM CDT) Anatomical Region Laterality Modality Head and Neck N/A Computed Radiogr aphy 09/28/2024 10:1 3 PM CDT Narrative 09/28/2024 10:18 PM CDT EXAM DESCRIPTION: XR NECK SOFT TISSUE REASON FOR STUDY: Shortness of breath Respiratory distress, pt states she has mast cell and about to go into anaphylaxis, 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 Wheezes throughout upon auscultation with audible [...] Shirley Reardon M.D. 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 Wheezes throughout upon auscultation with audible [...] Shirley Reardon M.D. 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 Wheezes throughout upon auscultation with audible [...] signed by Arnold GRAHAM: GLADYS Report ID: [id number] Reading Location: [place] [address] Simran Frank MD IMG XR PROCEDURES Final [...] was last reviewed 2021. Testing performed by: [address] [address] Blood 09/28/2024 8:10 PM CDT 09/28/2024 8:12 PM CDT Simran Frank MD LAB BLOOD ORDERABLES Ruthy l Result Performing Organization Address City/State/[facility] Co de Phone Number [facility] [address] [facility] Department [place] [address] * (ABNORMAL) Differential, auto (09/28/2024 8:10 PM CDT) Pathologist [facility] Neutrophil abs 12.9(H) 1.5 - 6.5 K/cumm Comment:Testing performed by : [address] [address] Imm gran abs 0.2(H) 0.0 - 0.1 K/cumm [facility] Comment:Testing performed by : [address] [address] Lymphocyte abs 3.9(H) 0.8 - 3.3 K/cumm [facility] Comment:Testing performed by : [address] [address] Monocyte abs 1.6(H) 0.2 - 0.8 K/cumm [facility] Comment:Testing performed by : [address] [address] Eosinophil abs 0.0 0.0 - 0.5 K/cumm [facility] Comment:Testing performed by : [address], [place]., [address] Basophil abs 0.0 0.0 - 0.1 K/cumm [facility] Comment:Testing performed by : [address] [address] Neutrophil pct 69.2 % [facility] Comment: Interpretive Data Percent cell count reference ranges are not reported, since discordance with absolute values may lead to misinterpretation of CBC data. Current Interpretive Data was last revised on 2017. Testing performed by: [address] [address] Imm gran pct 1.1 % [facility] Comment: Interpretive Data Percent cell count reference ranges are not reported, since discordance with absolute values may lead to misinterpretation of CBC data. Current Interpretive Data was last revised on 2017. Testing performed by: [address] [address] Lymphocyte pct 20.7 % [facility] Comment: Interpretive Data Percent cell count reference ranges are not reported, since discordance with absolute values may lead to misinterpretation of CBC data. Current Interpretive Data was last revised on 2017. Testing performed by: [address] [address] Monocyte pct 8.7 % [facility] Comment: Interpretive Data Percent cell count reference ranges are not reported, since discordance with absolute values may lead to misinterpretation of CBC data. Current Interpretive Data was last revised on 2017. Testing performed by: [address] [address] Eosinophil pct 0.1 % [facility] Comment: Interpretive Data Percent cell count reference ranges are not reported, since discordance with absolute values may lead to misinterpretation of CBC data. Current Interpretive Data was last revised on 2017. Testing performed by: [address] [address] Basophil pct 0.2 % [facility] Comment: Interpretive Data Percent cell count reference ranges are not reported, since discordance with absolute values may lead to misinterpretation of CBC data. Current Interpretive Data was last revised on 2017. Testing performed by: [address] [address] Blood 09/28/2024 8:10 PM CDT 09/28/2024 8:11 PM CDT us Simran Frank MD LAB BLOOD ORDERABLES Ruthy trivedi Result [facility] Department [place] [address] * (ABNORMAL) CBC with auto differential (09/28/2024 8:10 PM CDT) WBC 18.6(H) 3.8 - 9.9 K/cumm Comment:Testing performed by : [address] [address] Hgb 11.3(L) 11.9 - 15.5 g/dL [facility] Comment:Testing performed by : [address] [address] Hct 36.0 35.6 - 45.5 % [facility] Comment:Testing performed by : [address] [address] Plt 601(H) 150 - 400 K/cumm [facility] Comment:Testing performed by : [address] [address] MPV 9.1 9.1 - 12.3 fL [facility] Comment:Testing performed by : [address] [address] RBC 4.56 3.90 - 5.20 M/cumm [facility] Comment:Testing performed by : [address] [address] MCV 78.9(L) 81.3 - 96.4 fL [facility] Comment:Testing performed by : [address] [address] MCH 24.8(L) 27.1 - 33.3 pg [facility] Comment:Testing performed by : [address] [address] MCHC 31.4(L) 32.3 - 35.7 g/dL [facility] Comment:Testing performed by : [address] [address] RDW CV 15.2(H) 11.1 - 14.9 % [facility] Comment:Testing performed by : [address] [address] RDW SD 43.6 35.7 - 48.1 fL [facility] Comment:Testing performed by : [address] [address] NRBC abs 0.03(H) 0.00 - 0.01 K/cumm [facility] Comment:Testing performed by : [address], [address] Blood 09/28/2024 8:10 PM CDT 09/28/2024 8:11 PM CDT us Simran Frank MD LAB BLOOD ORDERABLES Ruthy trivedi Result [facility] [address] [facility] Department [place] [address] * (ABNORMAL) Comprehensive metabolic panel (09/28/2024 8:10 PM CDT) Sodium 142 135 - 145 mmol/L Comment:Testing performed by : [address] [address] Potassium, pl 3.2(L) 3.3 - 4.9 mmol/L [facility] Comment:Testing performed by : [address], [address] Chloride 103 97 - 110 mmol/L [facility] Comment:Testing performed by : [address], [place]., [address] CO2 23 22 - 32 mmol/L [facility] Comment:Testing performed by : [address], [place]., [address] Anion gap 16(H) 2 - 15 mmol/L [facility] Comment:Testing performed by : [address], [place]., [address] BUN 18 6 - 25 mg/dL [facility] Comment:Testing performed by : [address], [place]., [address] Creatinine 0.80 0.60 - 1.10 mg/dL [facility] Comment:Testing performed by : [address], [place]., [address] Glucose 108 70 - 199 mg/dL [facility] Comment: Interpretive Data Fasting glucose >/= [...] was last revised 2022. Testing performed by: [address] [address] Calcium 10.0 8.5 - 10.3 mg/dL [facility] Comment:Testing performed by : [address] [address] Bilirubin, total <0.2 0.1 - 1.2 mg/dL [facility] Comment:Testing performed by : [address] [address] Protein, pl 7.4 6.5 - 8.5 g/dL [facility] Comment:Testing performed by : [address], [place]., [address] Albumin 4.4 3.5 - 5.0 g/dL [facility] Comment:Testing performed by : [facility], [address] [place] [address]., [address] Alk phos 77 40 - 130 Units/L [facility] Comment:Testing performed by : [address] [address] ALT 28 7 - 45 Units/L [facility] Comment:Testing performed by : [address] [address] AST 22 10 - 45 Units/L [facility] Comment:Testing performed by : [address] [address] Blood 09/28/2024 8:10 PM CDT 09/28/2024 8:12 PM CDT Simran Frank MD LAB BLOOD ORDERABLES Ruthy l Result Performing Organization Address [facility] Co de Phone Number [facility] [address] [facility] Department [place] [address] * ECG 12 lead (09/28/2024 8:02 PM CDT) Pathologist [facility] Ventricular Rate EKG/Min 151 BPM [facility] Atrial Rate [address] [facility] VT-Interval (MSEC) [address] [facility] QRS-Interval (MSEC) [address] [facility] QT-Interval (MSEC) [address] [facility] QTc [address] [facility] P [place] [address] [facility] R [place] [address] [facility] T [place] [address] [facility] Diagnosis Sinus tachycardia with short VT RSR' or QR pattern in V1 suggests right ventricular conduction delay Abnormal ECG When compared with ECG of 23-SEP-2024 16:46, No significant change Confirmed by BELIA CHU M.D. ([id number]) on 09/29/2024 11:02:24 PM [facility] 09/28/2024 8:02 PM CDT 09/29/2024 11:02 PM CDT us Simran Frank MD ECG ORDERABLES Final Res ult Performing Organization Address [facility] Co de Phone Number [facility] * eGFR (09/27/2024 2:58 AM CDT) eGFR [...] was last reviewed 2021. Testing performed by: [address] [address] Blood 09/27/2024 2:58 AM CDT 09/27/2024 3:03 AM CDT us Ferdinand Rivera DO LAB BLOOD ORDERABLES Final Res ult [facility] [address] [facility] Department [place] [address] * (ABNORMAL) Differential, auto (09/27/2024 2:58 AM CDT) Neutrophil abs 13.2(H) 1.5 - 6.5 K/cumm Comment:Testing performed by : [address] [address] Imm gran abs 0.1 0.0 - 0.1 K/cumm [facility] Comment:Testing performed by : [address] [address] Lymphocyte abs 1.7 0.8 - 3.3 K/cumm [facility] Comment:Testing performed by : [facility], [address] [place] [address]., [address] Monocyte abs 1.0(H) 0.2 - 0.8 K/cumm [facility] Comment:Testing performed by : [address], [place]., [address] Eosinophil abs 0.0 0.0 - 0.5 K/cumm [facility] Comment:Testing performed by : [address] [address] Basophil abs 0.0 0.0 - 0.1 K/cumm [facility] Comment:Testing performed by : [address] [address] Neutrophil pct 82.5 % [facility] Comment: Interpretive Data Percent cell count reference ranges are not reported, since discordance with absolute values may lead to misinterpretation of CBC data. Current Interpretive Data was last revised on 2017. Testing performed by: [address] [address] Imm gran pct 0.8 % [facility] Comment: Interpretive Data Percent cell count reference ranges are not reported, since discordance with absolute values may lead to misinterpretation of CBC data. Current Interpretive Data was last revised on 2017. Testing performed by: [address] [address] Lymphocyte pct 10.4 % [facility] Comment: Interpretive Data Percent cell count reference ranges are not reported, since discordance with absolute values may lead to misinterpretation of CBC data. Current Interpretive Data was last revised on 2017. Testing performed by: [address] [address] Monocyte pct 6.2 % [facility] Comment: Interpretive Data Percent cell count reference ranges are not reported, since discordance with absolute values may lead to misinterpretation of CBC data. Current Interpretive Data was last revised on 2017. Testing performed by: [address] [address] Eosinophil pct 0.0 % [facility] Comment: Interpretive Data Percent cell count reference ranges are not reported, since discordance with absolute values may lead to misinterpretation of CBC data. Current Interpretive Data was last revised on 2017. Testing performed by: [address] [address] Basophil pct 0.1 % [facility] Comment: Interpretive Data Percent cell count reference ranges are not reported, since discordance with absolute values may lead to misinterpretation of CBC data. Current Interpretive Data was last revised on 2017. Testing performed by: [address] [address] Blood 09/27/2024 2:58 AM CDT 09/27/2024 3:03 AM CDT us Ferdinand Rivera DO LAB BLOOD ORDERABLES Final Res ult [facility] Department [place] [address] * (ABNORMAL) CBC with auto differential (09/27/2024 2:58 AM CDT) WBC 15.9(H) 3.8 - 9.9 K/cumm Comment:Testing performed by : [address] [address] Hgb 11.3(L) 11.9 - 15.5 g/dL [facility] Comment:Testing performed by : [address] [address] Hct 36.7 35.6 - 45.5 % [facility] Comment:Testing performed by : [address] [address] Plt 532(H) 150 - 400 K/cumm [facility] Comment:Testing performed by : [address] [address] MPV 9.2 9.1 - 12.3 fL [facility] Comment:Testing performed by : [address] [address] RBC 4.50 3.90 - 5.20 M/cumm [facility] Comment:Testing performed by : [address] [address] MCV 81.6 81.3 - 96.4 fL [facility] Comment:Testing performed by : [address] [address] MCH 25.1(L) 27.1 - 33.3 pg [facility] Comment:Testing performed by : [address] [address] MCHC 30.8(L) 32.3 - 35.7 g/dL [facility] Comment:Testing performed by : [address] [address] RDW CV 15.4(H) 11.1 - 14.9 % [facility] Comment:Testing performed by : [address], [address] RDW SD 45.1 35.7 - 48.1 fL [facility] Comment:Testing performed by : [address] [address] NRBC abs 0.00 0.00 - 0.01 K/cumm [facility] Comment:Testing performed by : [address], [address] Blood 09/27/2024 2:58 AM CDT 09/27/2024 3:03 AM CDT us Ferdinand Rivera DO LAB BLOOD ORDERABLES Final Res ult [facility] [address] [facility] Department [place] [address] * Comprehensive metabolic panel (09/27/2024 2:58 AM CDT) Sodium 140 135 - 145 mmol/L Comment:Testing performed by : [address], [address] Potassium, pl 3.8 3.3 - 4.9 mmol/L [facility] Comment:Testing performed by : [address], [address] Chloride 103 97 - 110 mmol/L [facility] Comment:Testing performed by : [address], [address] CO2 23 22 - 32 mmol/L [facility] Comment:Testing performed by : [address] [address] Anion gap 14 2 - 15 mmol/L [facility] Comment:Testing performed by : [address] [address] BUN 11 6 - 25 mg/dL [facility] Comment:Testing performed by : [address], [place]., [address] Creatinine 0.66 0.60 - 1.10 mg/dL [facility] Comment:Testing performed by : [address] [address] Glucose 154 70 - 199 mg/dL [facility] Comment: Interpretive Data Fasting glucose >/= [...] was last revised 2022. Testing performed by: [address] [address] Calcium 10.3 8.5 - 10.3 mg/dL [facility] Comment:Testing performed by : [address] [address] Bilirubin, total <0.2 0.1 - 1.2 mg/dL [facility] Comment:Testing performed by : [address] [address] Protein, pl 7.8 6.5 - 8.5 g/dL [facility] Comment:Testing performed by : [address] [address] Albumin 4.5 3.5 - 5.0 g/dL [facility] Comment:Testing performed by : [address] [address] Alk phos 85 40 - 130 Units/L [facility] Comment:Testing performed by : [address] [address] ALT 25 7 - 45 Units/L [facility] Comment:Testing performed by : [address] [address] AST 15 10 - 45 Units/L [facility] Comment:Testing performed by : [address] [address] Blood 09/27/2024 2:58 AM CDT 09/27/2024 3:03 AM CDT us Ferdinand Rivera DO LAB BLOOD ORDERABLES Final Res ult [facility] [address] [facility] Department [place] [address] * eGFR (09/24/2024 3:43 AM CDT) eGFR [...] was last reviewed 2021. Testing performed by: [address] [address] Blood 09/24/2024 3:43 AM CDT 09/24/2024 4:47 AM CDT us Dariela Cortez FABRICATION SPECIALIST LAB BLOOD ORDERABLES Final R esult [facility] [address] [facility] Department [place] [address] * (ABNORMAL) Differential, auto (09/24/2024 3:43 AM CDT) Neutrophil abs 9.1(H) 1.5 - 6.5 K/cumm Comment:Testing performed by : [address] [address] Imm gran abs 0.0 0.0 - 0.1 K/cumm [facility] Comment:Testing performed by : [address] [address] Lymphocyte abs 0.7(L) 0.8 - 3.3 K/cumm [facility] Comment:Testing performed by : [address] [address] Monocyte abs 0.3 0.2 - 0.8 K/cumm [facility] Comment:Testing performed by : [address] [address] Eosinophil abs 0.0 0.0 - 0.5 K/cumm [facility] Comment:Testing performed by : [address] [address] Basophil abs 0.0 0.0 - 0.1 K/cumm [facility] Comment:Testing performed by : [address] [address] Neutrophil pct 89.5 % [facility] Comment: Interpretive Data Percent cell count reference ranges are not reported, since discordance with absolute values may lead to misinterpretation of CBC data. Current Interpretive Data was last revised on 2017. Testing performed by: [address] [address] Imm gran pct 0.3 % [facility] Comment: Interpretive Data Percent cell count reference ranges are not reported, since discordance with absolute values may lead to misinterpretation of CBC data. Current Interpretive Data was last revised on 2017. Testing performed by: [address] [address] Lymphocyte pct 6.9 % [facility] Comment: Interpretive Data Percent cell count reference ranges are not reported, since discordance with absolute values may lead to misinterpretation of CBC data. Current Interpretive Data was last revised on 2017. Testing performed by: [address] [address] Monocyte pct 3.1 % [facility] Comment: Interpretive Data Percent cell count reference ranges are not reported, since discordance with absolute values may lead to misinterpretation of CBC data. Current Interpretive Data was last revised on 2017. Testing performed by: [address] [address] Eosinophil pct 0.0 % [facility] Comment: Interpretive Data Percent cell count reference ranges are not reported, since discordance with absolute values may lead to misinterpretation of CBC data. Current Interpretive Data was last revised on 2017. Testing performed by: [address] [address] Basophil pct 0.2 % [facility] Comment: Interpretive Data Percent cell count reference ranges are not reported, since discordance with absolute values may lead to misinterpretation of CBC data. Current Interpretive Data was last revised on 2017. Testing performed by: [address] [address] Blood 09/24/2024 3:43 AM CDT 09/24/2024 4:50 AM CDT Dariela Cortez FABRICATION SPECIALIST LAB BLOOD ORDERABLES Final R esult [facility] [address] [facility] Department [place] [address] * (ABNORMAL) CBC with auto differential (09/24/2024 3:43 AM CDT) [facility] WBC 10.2(H) 3.8 - 9.9 K/cumm Comment:Testing performed by : [address] [address] Hgb 10.5(L) 11.9 - 15.5 g/dL [facility] Comment:Testing performed by : [address] [address] Hct 34.2(L) 35.6 - 45.5 % [facility] Comment:Testing performed by : [address] [address] Plt 418(H) 150 - 400 K/cumm [facility] Comment:Testing performed by : [address] [address] MPV 9.7 9.1 - 12.3 fL [facility] Comment:Testing performed by : [address], [address] RBC 4.17 3.90 - 5.20 M/cumm [facility] Comment:Testing performed by : [address] [address] MCV 82.0 81.3 - 96.4 fL [facility] Comment:Testing performed by : [address] [address] MCH 25.2(L) 27.1 - 33.3 pg [facility] Comment:Testing performed by : [address] [address] MCHC 30.7(L) 32.3 - 35.7 g/dL [facility] Comment:Testing performed by : [address] [address] RDW CV 15.6(H) 11.1 - 14.9 % [facility] Comment:Testing performed by : [address] [address] RDW SD 46.4 35.7 - 48.1 fL [facility] Comment:Testing performed by : [address] [address] NRBC abs 0.00 0.00 - 0.01 K/cumm [facility] Comment:Testing performed by : [address] [address] Blood 09/24/2024 3:43 AM CDT 09/24/2024 4:50 AM CDT us Dariela Diego GONZALEZ LAB BLOOD ORDERABLES Final R esult [facility] [address] [facility] Department [place] [address] * (ABNORMAL) Basic metabolic panel (09/24/2024 3:43 AM CDT) Sodium 138 135 - 145 mmol/L Comment:Testing performed by : [address] [address] Potassium, pl 4.2 3.3 - 4.9 mmol/L [facility] Comment:Testing performed by : [address] [address] Chloride 107 97 - 110 mmol/L [facility] Comment:Testing performed by : [address] [address] CO2 21(L) 22 - 32 mmol/L [facility] Comment:Testing performed by : [address] [address] Anion gap 10 2 - 15 mmol/L [facility] Comment:Testing performed by : [address] [address] BUN 10 6 - 25 mg/dL [facility] Comment:Testing performed by : [address] [address] Creatinine 0.71 0.60 - 1.10 mg/dL [facility] Comment:Testing performed by : [address] [address] Glucose 145 70 - 199 mg/dL [facility] [...] was last revised 2022. Testing performed by: [facility], [address] [place] [address]., [address] Calcium 9.7 8.5 - 10.3 mg/dL [facility] Comment:Testing performed by : [facility], [address] [place] [address]., [address] Blood 09/24/2024 3:43 AM CDT 09/24/2024 4:47 AM CDT us Dariela Cortez NP LAB BLOOD ORDERABLES Final R esult [facility] [address] [facility] Department [place] [address] * XR Mandible 4 or [...] Arnold Chahal M.D. KH: GLADYS Report ID: [id number] Reading Location: [id number] Procedure Note Arnold Chahal MD - 09/23/2024 [...] Arnold Chahal M.D. KH: GLADYS Report ID: [id number] Reading Location: [place] [address] Darian Goode MD IMG XR PROCEDURES Fi nal Result * VT CLOSED TX STERNOCLAVICULAR DISLC W/MANIPULATION (09/23/2024 7:35 [...] signed by Arnold GRAHAM: GLADYS Report ID: [id number] Reading Location: [id number] Procedure Note Arnold Chahal MD - 09/23/2024 [...] signed by Arnold GRAHAM: GLADYS Report ID: [id number] Reading Location: [id number] Jorje Huynh MD IMG XR PROCEDURES Final Re sult * XR Chest 1 Vw Portable (if patient condition/safety warrant portable) (09/23/2024 5:00 PM CDT) Anatomical Region Laterality Modality Body, Chest N/A Computed Radiogr aphy 09/23/2024 5:1 6 PM CDT Narrative 09/23/2024 5:16 PM CDT [...] López Mcclellan M.D. MM: MM Report ID: [id number] Reading Location: [place] [address] Procedure Note López Mcclellan MD - 09/23/2024 [...] López Mcclellan M.D. MM: MM Report ID: [id number] Reading Location: [id number] Samuel Bowen MD IMG XR PROCEDURES F inal Result * ECG 12 lead (09/23/2024 4:46 PM CDT) Ventricular Rate EKG/Min 146 BPM [facility] Atrial Rate 292 BPM [facility] QRS-Interval (MSEC) 98 ms [facility] QT-Interval (MSEC) 350 ms [facility] QTc 545 ms [facility] R [place] 58 degrees [facility] T [place] 50 degrees [facility] Diagnosis Sinus tachycardia Incomplete right bundle branch block T-wave changes When compared with ECG of 01-SEP-2024 13:54, No significant change Confirmed by SULTAN ZUNIGA M.D. ([id number]) on 09/23/2024 9:49:04 PM [facility] 09/23/2024 4:46 PM CDT 09/23/2024 9:49 PM CDT us Samuel Bowen MD ECG ORDERABLES Fin al Result [facility] [place] * eGFR (09/23/2024 4:27 PM CDT) Pathologist [facility] eGFR 88 >=60 mL/min/1. 73 m2 Comment: [...] was last reviewed 2021. Testing performed by: [facility], [address] [place] [address], [place]., [address] Blood 09/23/2024 4:27 PM CDT 09/23/2024 4:39 PM CDT us Deisy MARQUEZ LAB BLOOD ORDERABLES Final Resu lt [facility] [address] [facility] Department [place] [address] * (ABNORMAL) Differential, auto (09/23/2024 4:27 PM CDT) Neutrophil abs 7.2(H) 1.5 - 6.5 K/cumm Comment:Testing performed by : [address] [address] Imm gran abs 0.0 0.0 - 0.1 K/cumm [facility] Comment:Testing performed by : [address] [address] Lymphocyte abs 2.4 0.8 - 3.3 K/cumm [facility] Comment:Testing performed by : [address] [address] Monocyte abs 0.8 0.2 - 0.8 K/cumm [facility] Comment:Testing performed by : [address] [address] Eosinophil abs 0.1 0.0 - 0.5 K/cumm [facility] Comment:Testing performed by : [address] [address] Basophil abs 0.1 0.0 - 0.1 K/cumm [facility] Comment:Testing performed by : [address] [address] Neutrophil pct 68.6 % [facility] Comment: Interpretive Data Percent cell count reference ranges are not reported, since discordance with absolute values may lead to misinterpretation of CBC data. Current Interpretive Data was last revised on 2017. Testing performed by: [address] [address] Imm gran pct 0.4 % [facility] Comment: Interpretive Data Percent cell count reference ranges are not reported, since discordance with absolute values may lead to misinterpretation of CBC data. Current Interpretive Data was last revised on 2017. Testing performed by: [address] [address] Lymphocyte pct 22.5 % [facility] Comment: Interpretive Data Percent cell count reference ranges are not reported, since discordance with absolute values may lead to misinterpretation of CBC data. Current Interpretive Data was last revised on 2017. Testing performed by: [address] [address] Monocyte pct 7.1 % [facility] Comment: Interpretive Data Percent cell count reference ranges are not reported, since discordance with absolute values may lead to misinterpretation of CBC data. Current Interpretive Data was last revised on 2017. Testing performed by: [address] [address] Eosinophil pct 0.7 % [facility] Comment: Interpretive Data Percent cell count reference ranges are not reported, since discordance with absolute values may lead to misinterpretation of CBC data. Current Interpretive Data was last revised on 2017. Testing performed by: [address] [address] Basophil pct 0.7 % [facility] Comment: Interpretive Data Percent cell count reference ranges are not reported, since discordance with absolute values may lead to misinterpretation of CBC data. Current Interpretive Data was last revised on 2017. Testing performed by: [address] [address] Blood 09/23/2024 4:27 PM CDT 09/23/2024 4:39 PM CDT us Samuel Bowen MD LAB BLOOD ORDERABLE S Final Result [facility] [address] [facility] Department [place] [address] * (ABNORMAL) CBC with auto differential (09/23/2024 4:27 PM CDT) WBC 10.5(H) 3.8 - 9.9 K/cumm Comment:Testing performed by : [address] [place] [address] Hgb 11.9 11.9 - 15.5 g/dL [facility] Comment:Testing performed by : [address] [address] Hct 40.4 35.6 - 45.5 % [facility] Comment:Testing performed by : [address] [address] Plt 517(H) 150 - 400 K/cumm [facility] Comment:Testing performed by : [address] [address] MPV 9.3 9.1 - 12.3 fL [facility] Comment:Testing performed by : [address], [address] RBC 4.93 3.90 - 5.20 M/cumm [facility] Comment:Testing performed by : [address] [address] MCV 81.9 81.3 - 96.4 fL [facility] Comment:Testing performed by : [address] [address] MCH 24.1(L) 27.1 - 33.3 pg [facility] Comment:Testing performed by : [address] [address] MCHC 29.5(L) 32.3 - 35.7 g/dL [facility] Comment:Testing performed by : [address] [address] RDW CV 15.6(H) 11.1 - 14.9 % [facility] Comment:Testing performed by : [address] [address] RDW SD 46.5 35.7 - 48.1 fL [facility] Comment:Testing performed by : [address] [address] NRBC abs 0.00 0.00 - 0.01 K/cumm [facility] Comment:Testing performed by : [address] [address] Blood 09/23/2024 4:27 PM CDT 09/23/2024 4:39 PM CDT us Samuel Bowen MD LAB BLOOD ORDERABLE S Final Result [facility] [address] [facility] Department [place] [address] * Comprehensive metabolic panel (09/23/2024 4:27 PM CDT) Sodium 141 135 - 145 mmol/L Comment:Testing performed by : [address] [address] Potassium, pl 3.3 3.3 - 4.9 mmol/L [facility] Comment:Testing performed by : [address] [address] Chloride 104 97 - 110 mmol/L [facility] Comment:Testing performed by : [address] [address] CO2 22 22 - 32 mmol/L [facility] Comment:Testing performed by : [address] [address] Anion gap 15 2 - 15 mmol/L [facility] Comment:Testing performed by : [address] [address] BUN 11 6 - 25 mg/dL [facility] Comment:Testing performed by : [address] [address] Creatinine 0.89 0.60 - 1.10 mg/dL [facility] Comment:Testing performed by : [address] [address] Glucose 153 70 - 199 mg/dL [facility] [...] was last revised 2022. Testing performed by: [address] [address] Calcium 9.9 8.5 - 10.3 mg/dL [facility] Comment:Testing performed by : [address] [address] Bilirubin, total <0.2 0.1 - 1.2 mg/dL [facility] Comment:Testing performed by : [address] [address] Protein, pl 8.0 6.5 - 8.5 g/dL [facility] Comment:Testing performed by : [address] [address] Albumin 4.6 3.5 - 5.0 g/dL [facility] Comment:Testing performed by : [address] [address] Alk phos 84 40 - 130 Units/L [facility] Comment:Testing performed by : [address] [address] ALT 42 7 - 45 Units/L [facility] Comment:Testing performed by : [address] [address] AST 27 10 - 45 Units/L [facility] Comment:Testing performed by : [address] [address] Blood 09/23/2024 4:27 PM CDT 09/23/2024 4:39 PM CDT us Samuel Bowen MD LAB BLOOD ORDERABLE S Final Result [facility] [address] [facility] Department of Laboratories [place], [place] [id number] * (ABNORMAL) CBC without differential (09/05/2024 4:27 AM REVERBERATORY FURNACE SUPERVISOR) [facility] WBC 14.9(H) 3.8 - 9.9 K/cumm Comment:Testing performed by : [address] [address] Hgb 10.8(L) 11.9 - 15.5 g/dL [facility] Comment:Testing performed by : [address] [address] Hct 35.6 35.6 - 45.5 % [facility] Comment:Testing performed by : [address] [address] Plt 414(H) 150 - 400 K/cumm [facility] Comment:Testing performed by : [address] [address] MPV 9.4 9.1 - 12.3 fL [facility] Comment:Testing performed by : [address] [address] RBC 4.35 3.90 - 5.20 M/cumm [facility] Comment:Testing performed by : [address] [address] MCV 81.8 81.3 - 96.4 fL [facility] Comment:Testing performed by : [address] [address] MCH 24.8(L) 27.1 - 33.3 pg [facility] Comment:Testing performed by : [address] [address] MCHC 30.3(L) 32.3 - 35.7 g/dL [facility] Comment:Testing performed by : [address] [address] RDW CV 15.4(H) 11.1 - 14.9 % [facility] Comment:Testing performed by : [address] [address] RDW SD 46.2 35.7 - 48.1 fL [facility] Comment:Testing performed by : [address] [address] NRBC abs 0.00 0.00 - 0.01 K/cumm [facility] Comment:Testing performed by : [address] [address] Blood 09/05/2024 4:27 AM REVERBERATORY FURNACE SUPERVISOR 09/05/2024 5:03 AM REVERBERATORY FURNACE SUPERVISOR us Venkat Rudd MD LAB BLOOD ORDERABLES Fi nal Result [facility] [address] [facility] Department of [place] [address] * (ABNORMAL) CBC without differential (09/04/2024 4:25 AM REVERBERATORY FURNACE SUPERVISOR) WBC 14.5(H) 3.8 - 9.9 K/cumm Comment:Testing performed by : [address] [address] Hgb 10.5(L) 11.9 - 15.5 g/dL TAWNYA Comment:Testing performed by : [address] [address] Hct 35.4(L) 35.6 - 45.5 % TAWNYA Comment:Testing performed by : [address] [address] Plt 392 150 - 400 K/cumm TAWNYA Comment:Testing performed by : [address] [address] MPV 9.2 9.1 - 12.3 fL TAWNYA Comment:Testing performed by : [address] [address] RBC 4.27 3.90 - 5.20 M/cumm TAWNYA Comment:Testing performed by : [address] [address] MCV 82.9 81.3 - 96.4 fL TAWNYA Comment:Testing performed by : [address] [address] MCH 24.6(L) 27.1 - 33.3 pg TAWNYA Comment:Testing performed by : [address] [address] MCHC 29.7(L) 32.3 - 35.7 g/dL TAWNYA Comment:Testing performed by : [address], [address] RDW CV 15.6(H) 11.1 - 14.9 % [facility]A MILLS Comment:Testing performed by : [address] [address] RDW SD 47.6 35.7 - 48.1 fL [facility] Comment:Testing performed by : [address] [address] NRBC abs 0.00 0.00 - 0.01 K/cumm [facility] Comment:Testing performed by : [address] [address] Blood 09/04/2024 4:25 AM REVERBERATORY FURNACE SUPERVISOR 09/04/2024 4:41 AM REVERBERATORY FURNACE SUPERVISOR us Venkat Rudd MD LAB BLOOD ORDERABLES Fi nal Result [address] [place] [address] * Troponin T high-sensitivity 2-hour (09/01/2024 5:11 PM REVERBERATORY FURNACE SUPERVISOR) Trop T hs <6 <=14 ng/L Comment: Interpretive Data For further hscTnT resources including the diagnostic algorithm and an aid in interpretation, copy and paste this link: https://nrl.testcatalog.org/show/hsTrop Current Interpretive Data last revised 2020. Testing performed by: [address] [address] Trop T hs delta 0 ng/L [facility] Comment:Testing performed by : [address] [address] Trop T hs interp Insignificant [facility]A [facility] Comment:Testing performed by : [address] [address] Blood 09/01/2024 5:11 PM REVERBERATORY FURNACE SUPERVISOR 09/01/2024 5:14 PM REVERBERATORY FURNACE SUPERVISOR us Wil Monteiro MD LAB BLOOD ORDERABLE S Final Result Performing Organization Address City/[facility]/ZIP Co de Phone Number [address] [place] [address] * Urinalysis reflex to microscopic and culture Urine (09/01/2024 4:58 PM REVERBERATORY FURNACE SUPERVISOR) Color, ur Yellow Yellow Comment:Testing performed by : [address] [address] Clarity, ur Clear Clear TAWNYA Comment:Testing performed by : [address] [address] Specific gravity, ur 1.015 1.003 - 1.030 TAWNYA Comment:Testing performed by : [address] [address] pH, urine 7.0 TAWNYA Comment: Interpretive Data U rine pH is affected by diet, medications, systemic acid-base disturbances, and renal tubular function. pH may affect urinary stone formation. For example, urine pH below 6.0 may help reduce the tendency for calcium phosphate stones and pH greater than 6.0 may reduce the tendency for uric acid stone formation. Source: [employer] Current Interpretive Data was last revised on 2017 Testing performed by: [address] [address] Protein, ur ql Negative Negative TAWNYA Comment:Testing performed by : [address] [address] Glucose, ur ql Negative Negative [facility]WNYA Comment:Testing performed by : [address] [address] Ketones, ur Negative Negative TAWNYA Comment:Testing performed by : [address] [address] Bilirubin, ur Negative Negative TAWNYA Comment:Testing performed by : [address] [address] Blood, ur Negative Negative TAWNYA Comment:Testing performed by : [address] [address] Urobilinogen, ur <2.0 <2.0 mg/dL [facility]A Comment:Testing performed by : [address] [address] Nitrite, ur Negative Negative TAWNYA Comment:Testing performed by : [address] [address] Leukocyte esterase, ur Negative Negative [facility]S Comment:Testing performed by : [facility], [address] [place] [address], [place]., [address] UA reflex comment Reflex conditions for microscopic UA and culture not met. [facility] Comment:Testing performed by : [facility], [address] [place] [address], [place]., [address] Urine 09/01/2024 4:58 PM REVERBERATORY FURNACE SUPERVISOR 09/01/2024 4:59 PM REVERBERATORY FURNACE SUPERVISOR us Wil Monteiro MD LAB MICROBIOLOGY - GENERAL ORDERABLES Final Result TAWNYA MILLS [address] [facility] Department [place] [address] * XR Chest 1 Vw Portable (09/01/2024 3:05 PM REVERBERATORY FURNACE SUPERVISOR) Anatomical Region Laterality Modality Body, Chest N/A Computed Radiogr aphy 09/01/2024 3:19 PM REVERBERATORY FURNACE SUPERVISOR Narrative 09/01/2024 3:22 PM REVERBERATORY FURNACE SUPERVISOR EXAM DESCRIPTION: XR CHEST 1 VIEW REASON FOR STUDY: allergic reaction Came to ED s/p anaphylactic reaction. Reports ate at [facility] Singh broke out in hives and started [...] Robi Arreola M.D. MZ: JEANNETTE Report ID: [id number] Reading Location: [id number] Procedure Note Robi Arreola MD - 09/01/2024 [...] Robi Arreola M.D. MZ: MZ Report ID: [id number] Reading Location: [id number] Wil Monteiro MD IMG XR PROCEDURES F inal Result * Troponin T high-sensitivity series (baseline, 2hr, 4hr, 6hr) (09/01/2024 2:59 PM REVERBERATORY FURNACE SUPERVISOR) Trop T hs <6 <=14 ng/L Comment: Interpretive Data For further hscTnT resources including the diagnostic algorithm and an aid in interpretation, copy and paste this link: https://nrl.testcatalog.org/show/hsTrop Current Interpretive Data last revised 2020. Testing performed by: [facility], [address] [place] [address]., [address] Blood 09/01/2024 2:59 PM REVERBERATORY FURNACE SUPERVISOR 09/01/2024 3:03 PM REVERBERATORY FURNACE SUPERVISOR us Wil Monteiro MD LAB BLOOD ORDERABLE S Final Result Performing Organization Address City/[facility]/ZIP Co de Phone Number TAWNYA [facility] [place] [address] * eGFR (09/01/2024 2:59 PM REVERBERATORY FURNACE SUPERVISOR) eGFR >90 >=60 mL/min/1. 73 m2 [...] was last reviewed 2021. Testing performed by: [address] [address] Blood 09/01/2024 2:59 PM REVERBERATORY FURNACE SUPERVISOR 09/01/2024 3:03 PM REVERBERATORY FURNACE SUPERVISOR us Wil Monteiro MD LAB BLOOD ORDERABLE S Final Result [facility] [place] [address] * (ABNORMAL) Differential, auto (09/01/2024 2:59 PM REVERBERATORY FURNACE SUPERVISOR) Neutrophil abs 14.4(H) 1.5 - 6.5 K/cumm Comment:Testing performed by : [address] [place]., [address] Imm gran abs 0.2(H) 0.0 - 0.1 K/cumm CERNER Comment:Testing performed by : [address] [address] Lymphocyte abs 1.4 0.8 - 3.3 K/cumm CERNER Comment:Testing performed by : [address] [address] Monocyte abs 0.4 0.2 - 0.8 K/cumm [facility] Comment:Testing performed by : [address] [address] Eosinophil abs 0.0 0.0 - 0.5 K/cumm [facility] Comment:Testing performed by : [address] [address] Basophil abs 0.1 0.0 - 0.1 K/cumm [facility] Comment:Testing performed by : [address] [address] Neutrophil pct 87.3 % [facility] Comment: Interpretive Data Percent cell count reference ranges are not reported, since discordance with absolute values may lead to misinterpretation of CBC data. Current Interpretive Data was last revised on 2017. Testing performed by: [address] [address] Imm gran pct 0.9 % [facility] Comment: Interpretive Data Percent cell count reference ranges are not reported, since discordance with absolute values may lead to misinterpretation of CBC data. Current Interpretive Data was last revised on 2017. Testing performed by: [address] [address] Lymphocyte pct 8.7 % CERNER Comment: Interpretive Data Percent cell count reference ranges are not reported, since discordance with absolute values may lead to misinterpretation of CBC data. Current Interpretive Data was last revised on 2017. Testing performed by: [address] [address] Monocyte pct 2.7 % CERNER Comment: Interpretive Data Percent cell count reference ranges are not reported, since discordance with absolute values may lead to misinterpretation of CBC data. Current Interpretive Data was last revised on 2017. Testing performed by: [address] [address] Eosinophil pct 0.1 % [facility] Comment: Interpretive Data Percent cell count reference ranges are not reported, since discordance with absolute values may lead to misinterpretation of CBC data. Current Interpretive Data was last revised on 2017. Testing performed by: [address] [address] Basophil pct 0.3 % [facility] Comment: Interpretive Data Percent cell count reference ranges are not reported, since discordance with absolute values may lead to misinterpretation of CBC data. Current Interpretive Data was last revised on 2017. Testing performed by: [address] [address] Blood 09/01/2024 2:59 PM REVERBERATORY FURNACE SUPERVISOR 09/01/2024 3:03 PM REVERBERATORY FURNACE SUPERVISOR us Wil Monteiro MD LAB BLOOD ORDERABLE S Final Result Performing Organization Address [facility]/ZIP Co de Phone Number [address] [place], [place] [id number] * Thyroid Function [place] (09/01/2024 2:59 PM REVERBERATORY FURNACE SUPERVISOR) Pathologist [facility] TSH 0.80 0.30 - 4.20 mcIUnit/mL Comment:Testing performed by : [address] [address] Blood 09/01/2024 2:59 PM REVERBERATORY FURNACE SUPERVISOR 09/01/2024 3:03 PM REVERBERATORY FURNACE SUPERVISOR us Wil Monteiro MD LAB BLOOD ORDERABLE S Final Result Performing Organization Address City/[facility]/ZIP Co de Phone Number [address] [place] [address] * (ABNORMAL) CBC with auto differential (09/01/2024 2:59 PM REVERBERATORY FURNACE SUPERVISOR) Pathologist [facility] WBC 16.5(H) 3.8 - 9.9 K/cumm Comment:Testing performed by : [address] [address] Hgb 11.3(L) 11.9 - 15.5 g/dL TAWNYA Comment:Testing performed by : [address] [address] Hct 36.4 35.6 - 45.5 % CERBAILEY Comment:Testing performed by : [address] [address] Plt 465(H) 150 - 400 K/cumm [facility]ER[facility] Comment:Testing performed by : [address] [address] MPV 9.0(L) 9.1 - 12.3 fL TAWNYA Comment:Testing performed by : [address] [address] RBC 4.54 3.90 - 5.20 M/cumm TAWNYA Comment:Testing performed by : [address] [address] MCV 80.2(L) 81.3 - 96.4 fL [facility]ER[place] Comment:Testing performed by : [address] [address] MCH 24.9(L) 27.1 - 33.3 pg [facility]ER[facility] Comment:Testing performed by : [address] [address] MCHC 31.0(L) 32.3 - 35.7 g/dL [facility]A Comment:Testing performed by : [address], [address] RDW CV 15.1(H) 11.1 - 14.9 % TAWNYA Comment:Testing performed by : [address], [address] RDW SD 44.1 35.7 - 48.1 fL [facility]A Comment:Testing performed by : [address] [address] NRBC abs 0.00 0.00 - 0.01 K/cumm TAWNYA Comment:Testing performed by : [address] [place]., [address] Blood 09/01/2024 2:59 PM REVERBERATORY FURNACE SUPERVISOR 09/01/2024 3:03 PM REVERBERATORY FURNACE SUPERVISOR Wil Monteiro MD LAB BLOOD ORDERABLE S Final Result Performing Organization Address [facility] de Phone Number [address] [address] * Magnesium (09/01/2024 2:59 PM REVERBERATORY FURNACE SUPERVISOR) Pathologist [facility] Magnesium 2.0 1.4 - 2.5 mg/dL Comment:Testing performed by : [address] [address] Blood 09/01/2024 2:59 PM REVERBERATORY FURNACE SUPERVISOR 09/01/2024 3:03 PM REVERBERATORY FURNACE SUPERVISOR Wil Monteiro MD LAB BLOOD ORDERABLE S Final Result Performing Organization Address [facility] de Phone Number [address] [address] * Basic metabolic panel (09/01/2024 2:59 PM REVERBERATORY FURNACE SUPERVISOR) [facility] Sodium 140 135 - 145 mmol/L Comment:Testing performed by : [address] [address] Potassium, pl 4.0 3.3 - 4.9 mmol/L TAWNYA Comment:Testing performed by : [address] [address] Chloride 103 97 - 110 mmol/L TAWNYA Comment:Testing performed by : [address] [address] CO2 23 22 - 32 mmol/L TAW[facility]A Comment:Testing performed by : [address] [address] Anion gap 14 2 - 15 mmol/L TAWNYA Comment:Testing performed by : [address] [address] BUN 17 6 - 25 mg/dL TAWNYA Comment:Testing performed by : [address] [address] Creatinine 0.68 0.60 - 1.10 mg/dL [facility]A Comment:Testing performed by : [address] [address] Glucose 147 70 - 199 mg/dL TAWNYA [...] was last revised 2022. Testing performed by: [address] [address] Calcium 9.3 8.5 - 10.3 mg/dL TAWNYA Comment:Testing performed by : [address] [address] Blood 09/01/2024 2:59 PM REVERBERATORY FURNACE SUPERVISOR 09/01/2024 3:03 PM REVERBERATORY FURNACE SUPERVISOR Wil Monteiro MD LAB BLOOD ORDERABLE S Final Result Performing Organization Address City/State/[facility] Co de Phone Number [facility] [address] [facility] Department of Laboratories [place], [place] [id number] * POCT hCG, urine (09/01/2024 2:28 PM REVERBERATORY FURNACE SUPERVISOR) HCG, ur, POC Negative Negative Lot Number [id number] QC Backgroud Clear Acceptable QC Control Line Acceptable Urine 09/01/2024 2:28 PM REVERBERATORY FURNACE SUPERVISOR Wil Monteiro MD POINT OF CARE TEST ORDERABLES Final Result * ECG 12 lead (09/01/2024 1:54 PM REVERBERATORY FURNACE SUPERVISOR) Ventricular Rate EKG/Min [address] [facility] Atrial Rate 153 BPM [facility] VT-Interval (MSEC) [address] [facility] QRS-Interval (MSEC) 88 ms [facility] QT-Interval (MSEC) 328 ms [facility] QTc 523 ms [facility] P [place] 57 degrees [facility] R [place] 67 degrees [facility] T [place] 44 degrees [facility] Diagnosis Sinus tachycardia Otherwise normal ECG When compared with ECG of 20-AUG-2024 02:26, T wave inversion no longer evident in Anterior leads Confirmed by LAWRENCE YIP M.D. ([id number]) on 09/02/2024 9:10:53 AM [facility] 09/01/2024 1:54 PM REVERBERATORY FURNACE SUPERVISOR 09/02/2024 9:10 AM REVERBERATORY FURNACE SUPERVISOR us Wil Monteiro MD ECG ORDERABLES Fin al Result [facility] from Last 3 Months Insurance [facility] CHOICE PLUS MEDICAL [facility] HMO/PPO Address: [facility] [id number] [address] [facility] CHOICE PLUS MEDICAL [facility] HMO/PPO Address: [facility] [id number] [place] [id number] Advance Directives For more information, please contact: [phone] * Full Code (Latest Code Status on File) Date Activated Date Inactivated Comments 09/23/2024 7:38 PM 09/24/2024 5:41 PM * Full Code Date Activated Date Inactivated Comments 09/01/2024 7:30 PM 09/05/2024 3:39 PM * Full Code Date Activated Date Inactivated Comments 08/19/2024 9:45 PM 08/22/2024 5:15 PM Care Teams Metal Off Bearer Relationship Specialty Start Date End Date Shannan Maldonado MD PCP - General 09/07/19
--- OUTSIDE RECORDS SUMMARY | 2024-11-27 06:53 | XMS_ITS | Referral Summary ---
Author Organization [facility] Geena Hernandez Extdamian nsion Address [address] [facility] [place] [address] Care Team Providers Care Electricity Trading Analyst Name Role Phone Shannan Maldonado MD Primary Care Provider [phone] Encounters Date Type Department Care Team Description 11/21/2024 2:20 PM CDT Therapy [facility] Otolaryngology [address] [place] [address] Office [address] [address] Sima Trent SLP Sensation of swollen throat (Primary Dx); Dysphonia 11/21/2024 2:20 PM CDT Office Visit [facility] [address] [place] [address] Office Building [address] [address] Giovana Loaiza MD Sensation of swollen throat 11/19/2024 10:00 AM CDT Office Visit [facility] Allergy and Immunology [address] [place] [address] [address] [place] [address] Oneyda Vaughan NP Idiopathic urticaria (Primary Dx); Mast cell activation syndrome; SOB (shortness of breath); Allergic reaction, subsequent encounter 10/11/2024 Telephone [facility] Allergy and Immunology [address] [place] [address] [address] [place] [address] Ame Pulido RN 10/09/2024 10:00 AM CDT Office Visit [facility] Allergy and Immunology [address] [facility] [address] [place] [address] Susan Suarez MD Idiopathic urticaria (Primary Dx); Mast cell activation syndrome; SOB (shortness of breath) 10/07/2024 Telephone [facility] - [facility] [address] [facility] 11th [place] [address] [place] [address] Aguirre, Umm, 10/03/2024 11:35 AM CDT - 10/03/2024 1:37 PM CDT Emergency [facility] Emergency Department [address] [place] [address] Abhay Velez MD Allergic reaction, initial encounter (Primary Dx) Discharge Disposition: Discharge to home or self care 10/02/2024 Orders Only [facility] Allergy and Immunology [address] [place] [address] [address] [place] [address] Oneyda Vaughan NP Sensation of swollen throat (Primary Dx) 10/02/2024 Orders Only [facility] Allergy and Immunology [address] [place] [address] [address] [place] [phone] Oneyda Vaughan NP High risk medication use (Primary Dx) 10/01/2024 Telephone [facility] Infectious Diseases [address] [facility] [address] [place] [address] Cordelia Rudd RMA 09/30/2024 1:00 PM CDT Office Visit [facility] Allergy and Immunology [address] [place] [address] [address] [place] [address] Oneyda Vaughan NP SOB (shortness of breath) (Primary Dx) 09/30/2024 Telephone [facility] Allergy and Immunology [address] [place] [address] [address] [place] [phone] Ame Pulido RN 09/28/2024 7:55 PM CDT - 09/28/2024 10:39 PM CDT Emergency [facility] Emergency Department [address] [place] [address] Simran Frank MD Allergic reaction, initial encounter (Primary Dx) Discharge Disposition: Discharge to home or self care 09/27/2024 3:49 AM CDT - 09/27/2024 6:10 AM CDT Emergency [facility] Emergency Department [address] [place] [address] Ferdinand Rivera DO Allergic reaction, initial encounter (Primary Dx); Jaw pain Discharge Disposition: Discharge to home or self care 09/23/2024 4:55 PM CDT - 09/24/2024 1:30 PM CDT Hospital Encounter [place] [address] [address] [place] [address] Samuel Bowen MD Winston, MD Nimesh Galaviz Md Shahin, MD Allergic reaction, initial encounter (Primary Dx) Discharge Disposition: Discharge to home or self care 09/01/2024 2:02 PM DIORAMIST - 09/05/2024 11:38 AM DIORAMIST Hospital Encounter [place] [address] [address] [place] [address] Wil Monteiro MD Gaspe Mudiyanselage, MD Tobin [...] drink = 0.6 oz pur e alcohol) [facility] Utilities Answer Date Recorded In the past 12 months has th e electric, gas, oil, or water company [...] any clubs o r organizations such as yarsani groups, unions, fraternal or athletic groups, or [...] any time in the past 12 [facility], were you homeless or living in a intermediate (including now)? No 09/24/2024 Personal Safety Answer Date Recorded Have you ever been in or are you currently in a harmful physical or emotional relationship or is someone making you feel afraid or unsafe? Denies 10/03/2024 Comments No Sex and Gender Information Value Date Recorded Sex Assigned at Not on file Legal Sex Female 1:34 AM DIORAMIST Gender Identity Female 07/01/2022 7:31 PM DIORAMIST Sexual Orientation Not on file Last Filed [...] 11/19/2024 9:56 AM CDT Plan of Treatment Not on file [...] VIEWS Critical/Life-T hreatening 09/23/2024 8:29 PM CDT NM CLOSED TX STERNOCLAVICULAR DISLC W/MANIPULATION Routine 09/23/2024 [...] CBC WITHOUT DIFFERENTIAL Routine 09/05/2024 4:27 AM DIORAMIST CBC WITHOUT DIFFERENTIAL Routine 09/04/2024 4:25 AM DIORAMIST TROPONIN T HIGH-SENSITIVITY 2-HOUR Timed 09/01/2024 5:11 PM DIORAMIST URINALYSIS AND REFLEX TO MICROSCOPIC AND CULTURE STAT 09/01/2024 4:58 PM DIORAMIST XR CHEST 1 VIEW ED 09/01/2024 3:05 PM DIORAMIST EGFR STAT 09/01/2024 2:59 PM DIORAMIST DIFFERENTIAL AUTO STAT 09/01/2024 2:5 9 PM DIORAMIST MAGNESIUM STAT 09/01/2024 2:59 PM DIORAMIST THYROID FUNCTION CASCADE STAT 09/01/2024 2:59 PM DIORAMIST TROPONIN T HIGH-SENSITIVITY SERIES (BASELINE, 2HR, 4HR, 6HR) STAT 09/01/2024 2:59 PM DIORAMIST BASIC METABOLIC PANEL STAT 09/01/2024 2:59 PM DIORAMIST CBC WITH AUTO DIFFERENTIAL STAT 09/01/2024 2:59 PM DIORAMIST POCT HCG, URINE Routine 09/01/2024 2:28 PM DIORAMIST ECG 12-LEAD Routine 09/01/2024 1:54 PM DIORAMIST from Last 3 Months Results * (ABNORMAL) Immature Cells (10/02/2024 11:30 AM CDT) Pathologist [facility] Metamyelocyte 1(H) 0 - 0 % [facility] - 01 Myelocyte 5(H) 0 - 0 % [facility] - 01 10/02/2024 11:3 0 AM CDT 10/02/2024 Narrative [facility] - 10/03/2024 11:10 AM CDT Performed at: [facility] [address] [id number] Field Marketing Coordinator: Lucio Ellison PhD, Phone: [phone] us Susan Suarez MD LAB BLOOD ORDERABLES Fi nal Result [facility] - 01 * (ABNORMAL) Cyclosporine A level trough (10/02/2024 11:30 AM CDT) Pathologist [facility] Cyclosporine by Immunoassay <25(L) 100 - 400 ng/mL [facility] - 01 Comment: Verified by repeat analysis Therapeutic: Renal Transplant 100 - 250 Liver Transplant 100 - 400 Cardiac Transplant 100 - 400 Bone Marrow 200 - 300 Detection Limit = 25 Cyclosporine assay performed by [employer] Immunoassay. If preferred testing methodology for cyclosporine is Liquid Chromatography Tandem Mass Spectrometry (LC-MS/MS), please use test code [id number]. For testing performed by Immunoassay, please use test code [id number]. Blood 10/02/2024 11:3 0 AM CDT 10/02/2024 Narrative [facility] - 10/03/2024 3:10 PM CDT Performed at: [address] [id number] Field Marketing Coordinator: Lucio Ellison PhD, Phone: [phone] Susan Suarez MD LAB BLOOD ORDERABLES Fi nal Result Performing Organization Address [facility] Co de Phone Number [facility] - * (ABNORMAL) Microscopic Examination (10/02/2024 11:30 AM CDT) Pathologist [facility] WBC, ur 0-5 0 - 5 /hpf [...] - 10/03/2024 7:09 AM CDT Performed at: [address] [id number] Field Marketing Coordinator: Lucio Ellison PhD, Phone: [phone] Susan Suarez MD LAB BLOOD ORDERABLES Fi nal Result Performing Organization Address [facility] Co de Phone Number [facility] - * (ABNORMAL) Urinalysis reflex to microscopic (10/02/2024 11:30 AM CDT) [facility] Specific [place] 1.015 1.005 - 1.030 [facility] - 01 [...] - 10/03/2024 7:09 AM CDT Performed at: [address] [place] [id number] Field Marketing Coordinator: Lucio Ellison PhD, Phone: [phone] us Susan Suarez MD LAB URINE ORDERABLES Fi nal Result [facility] - 01 * (ABNORMAL) CBC with auto differential (10/02/2024 11:30 AM CDT) [facility] WBC 15.2(H) 3.4 - 10.8 x10E3/uL [facility] [...] - 10/03/2024 11:10 AM CDT Performed at: [address] [place] [id number] Field Marketing Coordinator: Lucio Ellison PhD, Phone: [phone] us Susan Saurez MD LAB BLOOD ORDERABLES Fi nal Result [facility] - 01 * Comprehensive metabolic panel (10/02/2024 11:30 AM CDT) [facility] Glucose 70 70 - 99 mg/dL [facility] [...] 10/03/2024 8:12 AM CDT Performed at: - [facility] [address] [id number] Field Marketing Coordinator: Lucio Ellison PhD, Phone: [phone] us Susan Suarez MD LAB BLOOD ORDERABLES Fi nal Result Performing Organization Address [facility]/State/[facility] Co de Phone Number [facility] - 01 * XR Neck Soft [...] anaphylaxis, 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 Wheezes throughout upon auscultation with audible [...] Shirley Reardon M.D. 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 Wheezes throughout upon auscultation with audible [...] Shirley Reardon M.D. 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 Wheezes throughout upon auscultation with audible [...] Arnold Chahal M.D. 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 Wheezes throughout upon auscultation with audible [...] Arnold Chahal M.D. KH: GLADYS Report ID: [id number] Reading Location: [place] [id number] Simran Frank MD IMG XR PROCEDURES Final [...] performed by: [facility], [address] [place] [address]., [address] Blood 09/28/2024 8:10 PM CDT 09/28/2024 8:12 PM CDT Simran Frank MD LAB BLOOD ORDERABLES Ruthy trivedi Result [facility] [address] [facility] [place] [address] * (ABNORMAL) Differential, auto (09/28/2024 8:10 PM CDT) Pathologist [facility] Neutrophil abs 12.9(H) 1.5 - 6.5 K/cumm Comment:Testing performed by : [address] [address] Imm gran abs 0.2(H) 0.0 - 0.1 K/cumm [facility] Comment:Testing performed by : [address] [address] Lymphocyte abs 3.9(H) 0.8 - 3.3 K/cumm [facility] Comment:Testing performed by : [address], [place]., [address] Monocyte abs 1.6(H) 0.2 - 0.8 K/cumm [facility] Comment:Testing performed by : [address] [address] Eosinophil abs 0.0 0.0 - 0.5 K/cumm [facility] Comment:Testing performed by : [address] [address] Basophil abs 0.0 0.0 - 0.1 K/cumm [facility] Comment:Testing performed by : [address] [address] Neutrophil pct 69.2 % [facility] Comment: Interpretive Data Percent cell count reference ranges are not reported, since discordance with absolute values may lead to misinterpretation of CBC data. Current Interpretive Data was last revised on 2017. Testing performed by: [address] [address] Imm gran pct 1.1 % [facility] Comment: Interpretive Data Percent cell count reference ranges are not reported, since discordance with absolute values may lead to misinterpretation of CBC data. Current Interpretive Data was last revised on 2017. Testing performed by: [address] [address] Lymphocyte pct 20.7 % [facility] Comment: Interpretive Data Percent cell count reference ranges are not reported, since discordance with absolute values may lead to misinterpretation of CBC data. Current Interpretive Data was last revised on 2017. Testing performed by: [address] [address] Monocyte pct 8.7 % [facility] Comment: Interpretive Data Percent cell count reference ranges are not reported, since discordance with absolute values may lead to misinterpretation of CBC data. Current Interpretive Data was last revised on 2017. Testing performed by: [address] [address] Eosinophil pct 0.1 % [facility] Comment: Interpretive Data Percent cell count reference ranges are not reported, since discordance with absolute values may lead to misinterpretation of CBC data. Current Interpretive Data was last revised on 2017. Testing performed by: [address] [address] Basophil pct 0.2 % [facility] Comment: Interpretive Data Percent cell count reference ranges are not reported, since discordance with absolute values may lead to misinterpretation of CBC data. Current Interpretive Data was last revised on 2017. Testing performed by: [address] [address] Blood 09/28/2024 8:10 PM CDT 09/28/2024 8:11 PM CDT us Simran Frank MD LAB BLOOD ORDERABLES Ruthy trivedi Result [facility] [address] [facility] Department of Laboratories [place], [place] [id number] * (ABNORMAL) CBC with auto differential (09/28/2024 8:10 PM CDT) WBC 18.6(H) 3.8 - 9.9 K/cumm Comment:Testing performed by : [address] [address] Hgb 11.3(L) 11.9 - 15.5 g/dL [facility] Comment:Testing performed by : [address] [address] Hct 36.0 35.6 - 45.5 % [facility] Comment:Testing performed by : [address] [address] Plt 601(H) 150 - 400 K/cumm [facility] Comment:Testing performed by : [address] [address] MPV 9.1 9.1 - 12.3 fL [facility] Comment:Testing performed by : [address] [address] RBC 4.56 3.90 - 5.20 M/cumm [facility] Comment:Testing performed by : [address] [address] MCV 78.9(L) 81.3 - 96.4 fL [facility] Comment:Testing performed by : [address], [address] MCH 24.8(L) 27.1 - 33.3 pg [facility] Comment:Testing performed by : [address] [address] MCHC 31.4(L) 32.3 - 35.7 g/dL [facility] Comment:Testing performed by : [address] [address] RDW CV 15.2(H) 11.1 - 14.9 % [facility] Comment:Testing performed by : [address], [address] RDW SD 43.6 35.7 - 48.1 fL [facility] Comment:Testing performed by : [address] [address] NRBC abs 0.03(H) 0.00 - 0.01 K/cumm [facility] Comment:Testing performed by : [address] [address] Blood 09/28/2024 8:10 PM CDT 09/28/2024 8:11 PM CDT us Simran Frank MD LAB BLOOD ORDERABLES Ruthy trivedi Result [facility] [address] [facility] Department of Laboratories [place], [place] [id number] * (ABNORMAL) Comprehensive metabolic panel (09/28/2024 8:10 PM CDT) Sodium 142 135 - 145 mmol/L Comment:Testing performed by : [address] [address] Potassium, pl 3.2(L) 3.3 - 4.9 mmol/L [facility] Comment:Testing performed by : [address], [place]., [address] Chloride 103 97 - 110 mmol/L [facility] Comment:Testing performed by : [address], [place]., [address] CO2 23 22 - 32 mmol/L [facility] Comment:Testing performed by : [address], [place]., [address] Anion gap 16(H) 2 - 15 mmol/L [facility] Comment:Testing performed by : [address], [place]., [address] BUN 18 6 - 25 mg/dL [facility] Comment:Testing performed by : [address] [address] Creatinine 0.80 0.60 - 1.10 mg/dL [facility] Comment:Testing performed by : [address] [address] Glucose 108 70 - 199 mg/dL [facility] [...] was last revised 2022. Testing performed by: [address] [address] Calcium 10.0 8.5 - 10.3 mg/dL [facility] Comment:Testing performed by : [address] [address] Bilirubin, total <0.2 0.1 - 1.2 mg/dL [facility] Comment:Testing performed by : [address] [address] Protein, pl 7.4 6.5 - 8.5 g/dL [facility] Comment:Testing performed by : [address] [address] Albumin 4.4 3.5 - 5.0 g/dL [facility] Comment:Testing performed by : [address] [address] Alk phos 77 40 - 130 Units/L [facility] Comment:Testing performed by : [address] [address] ALT 28 7 - 45 Units/L [facility] Comment:Testing performed by : [address] [address] AST 22 10 - 45 Units/L [facility] Comment:Testing performed by : [address] [address] Blood 09/28/2024 8:10 PM CDT 09/28/2024 8:12 PM CDT Simran Frank MD LAB BLOOD ORDERABLES Ruthy trivedi Result [facility] [address] [facility] Department [place] [address] * ECG 12 lead (09/28/2024 8:02 PM CDT) Ventricular Rate EKG/Min 151 BPM [facility] Atrial Rate 151 BPM [facility] NM-Interval (MSEC) 104 ms [facility] QRS-Interval (MSEC) 90 ms [facility] QT-Interval (MSEC) 336 ms [facility] QTc 532 ms [facility] P [place] 37 degrees [facility] R [place] 40 degrees [facility] T [place] 53 degrees [facility] Diagnosis Sinus tachycardia with short NM RSR' or QR pattern in V1 suggests right ventricular conduction delay Abnormal ECG When compared with ECG of 23-SEP-2024 16:46, No significant change Confirmed by BELIA CHU M.D. ([id number]) on 09/29/2024 11:02:24 PM [facility] 09/28/2024 8:02 PM CDT 09/29/2024 11:02 PM CDT us Simran Frank MD ECG ORDERABLES Final Res ult Performing Organization Address City/[facility]/ZIP Co de Phone Number [facility] * eGFR (09/27/2024 2:58 AM CDT) eGFR [...] performed by: [facility], [address] [place] [address]., [address] Blood 09/27/2024 2:58 AM CDT 09/27/2024 3:03 AM CDT us Ferdinand Rivera DO LAB BLOOD ORDERABLES Final Res ult [facility] [address] [facility] Department [place] [address] * (ABNORMAL) Differential, auto (09/27/2024 2:58 AM CDT) Neutrophil abs 13.2(H) 1.5 - 6.5 K/cumm Comment:Testing performed by : [address], [place]., [address] Imm gran abs 0.1 0.0 - 0.1 K/cumm [facility] Comment:Testing performed by : [address], [place]., [address] Lymphocyte abs 1.7 0.8 - 3.3 K/cumm [facility] Comment:Testing performed by : [address], [place]., [address] Monocyte abs 1.0(H) 0.2 - 0.8 K/cumm [facility] Comment:Testing performed by : [address] [address] Eosinophil abs 0.0 0.0 - 0.5 K/cumm [facility] Comment:Testing performed by : [address] [address] Basophil abs 0.0 0.0 - 0.1 K/cumm [facility] Comment:Testing performed by : [address] [address] Neutrophil pct 82.5 % [facility] Comment: Interpretive Data Percent cell count reference ranges are not reported, since discordance with absolute values may lead to misinterpretation of CBC data. Current Interpretive Data was last revised on 2017. Testing performed by: [address] [address] Imm gran pct 0.8 % [facility] Comment: Interpretive Data Percent cell count reference ranges are not reported, since discordance with absolute values may lead to misinterpretation of CBC data. Current Interpretive Data was last revised on 2017. Testing performed by: [address] [address] Lymphocyte pct 10.4 % [facility] Comment: Interpretive Data Percent cell count reference ranges are not reported, since discordance with absolute values may lead to misinterpretation of CBC data. Current Interpretive Data was last revised on 2017. Testing performed by: [address] [address] Monocyte pct 6.2 % [facility] Comment: Interpretive Data Percent cell count reference ranges are not reported, since discordance with absolute values may lead to misinterpretation of CBC data. Current Interpretive Data was last revised on 2017. Testing performed by: [address] [address] Eosinophil pct 0.0 % [facility] Comment: Interpretive Data Percent cell count reference ranges are not reported, since discordance with absolute values may lead to misinterpretation of CBC data. Current Interpretive Data was last revised on 2017. Testing performed by: [address] [address] Basophil pct 0.1 % [facility] Comment: Interpretive Data Percent cell count reference ranges are not reported, since discordance with absolute values may lead to misinterpretation of CBC data. Current Interpretive Data was last revised on 2017. Testing performed by: [address] [address] Blood 09/27/2024 2:58 AM CDT 09/27/2024 3:03 AM CDT us Ferdinand Rivera DO LAB BLOOD ORDERABLES Final Res ult [facility] [address] [facility] [place] [address] * (ABNORMAL) CBC with auto differential (09/27/2024 2:58 AM CDT) WBC 15.9(H) 3.8 - 9.9 K/cumm Comment:Testing performed by : [address] [address] Hgb 11.3(L) 11.9 - 15.5 g/dL [facility] Comment:Testing performed by : [address] [address] Hct 36.7 35.6 - 45.5 % [facility] Comment:Testing performed by : [address] [address] Plt 532(H) 150 - 400 K/cumm [facility] Comment:Testing performed by : [address] [address] MPV 9.2 9.1 - 12.3 fL [facility] Comment:Testing performed by : [address] [address] RBC 4.50 3.90 - 5.20 M/cumm [facility] Comment:Testing performed by : [address] [address] MCV 81.6 81.3 - 96.4 fL [facility] Comment:Testing performed by : [address] [address] MCH 25.1(L) 27.1 - 33.3 pg [facility] Comment:Testing performed by : [address] [address] MCHC 30.8(L) 32.3 - 35.7 g/dL [facility] Comment:Testing performed by : [address], [address] RDW CV 15.4(H) 11.1 - 14.9 % [facility] Comment:Testing performed by : [address], [address] RDW SD 45.1 35.7 - 48.1 fL [facility] Comment:Testing performed by : [address], [address] NRBC abs 0.00 0.00 - 0.01 K/cumm [facility] Comment:Testing performed by : [address] [address] Blood 09/27/2024 2:58 AM CDT 09/27/2024 3:03 AM CDT us Ferdinand Rivera DO LAB BLOOD ORDERABLES Final Res ult [facility] [address] [facility] [place] [address] * Comprehensive metabolic panel (09/27/2024 2:58 AM CDT) [facility] Signature Sodium 140 135 - 145 mmol/L Comment:Testing performed by : [address], [place]., [address] Potassium, pl 3.8 3.3 - 4.9 mmol/L [facility] Comment:Testing performed by : [address], [place]., [address] Chloride 103 97 - 110 mmol/L [facility] Comment:Testing performed by : [address], [place]., [address] CO2 23 22 - 32 mmol/L [facility] Comment:Testing performed by : [address], [place]., [address] Anion gap 14 2 - 15 mmol/L [facility] Comment:Testing performed by : [address], [place]., [address] BUN 11 6 - 25 mg/dL [facility] Comment:Testing performed by : [address], [place]., [address] Creatinine 0.66 0.60 - 1.10 mg/dL [facility] Comment:Testing performed by : [address], [place]., [address] Glucose 154 70 - 199 mg/dL [facility] Comment: Interpretive Data Fasting glucose >/= 126 [...] was last revised 2022. Testing performed by: [address] [address] Calcium 10.3 8.5 - 10.3 mg/dL [facility] Comment:Testing performed by : [address] [address] Bilirubin, total <0.2 0.1 - 1.2 mg/dL [facility] Comment:Testing performed by : [address] [address] Protein, pl 7.8 6.5 - 8.5 g/dL [facility] Comment:Testing performed by : [address] [address] Albumin 4.5 3.5 - 5.0 g/dL TAWNYA Comment:Testing performed by : [address] [address] Alk phos 85 40 - 130 Units/L TAWNYA Comment:Testing performed by : [address] [address] ALT 25 7 - 45 Units/L TAWNYA Comment:Testing performed by : [address] [address] AST 15 10 - 45 Units/L TAWNYA Comment:Testing performed by : [address] [address] Blood 09/27/2024 2:58 AM CDT 09/27/2024 3:03 AM CDT Ferdinand Rivera DO LAB BLOOD ORDERABLES Final Res ult TAWNYA [address] [facility] Department of Laboratories [place], [place] [id number] * eGFR (09/24/2024 3:43 AM CDT) eGFR [...] was last reviewed 2021. Testing performed by: [address] [address] Blood 09/24/2024 3:43 AM CDT 09/24/2024 4:47 AM CDT Dariela Cortez NP LAB BLOOD ORDERABLES Final R [facility]ult [facility] [address] [facility] Department [place] [address] * (ABNORMAL) Differential, auto (09/24/2024 3:43 AM CDT) Neutrophil abs 9.1(H) 1.5 - 6.5 K/cumm Comment:Testing performed by : [address] [address] Imm gran abs 0.0 0.0 - 0.1 K/cumm TAWNYA Comment:Testing performed by : [address] [address] Lymphocyte abs 0.7(L) 0.8 - 3.3 K/cumm TAWNYA Comment:Testing performed by : [address] [address] Monocyte abs 0.3 0.2 - 0.8 K/cumm TAWNYA Comment:Testing performed by : [address] [address] Eosinophil abs 0.0 0.0 - 0.5 K/cumm TAWNYA Comment:Testing performed by : [address] [address] Basophil abs 0.0 0.0 - 0.1 K/cumm TAWNYA Comment:Testing performed by : [address] [address] Neutrophil pct 89.5 % TAWNYA Comment: Interpretive Data Percent cell count reference ranges are not reported, since discordance with absolute values may lead to misinterpretation of CBC data. Current Interpretive Data was last revised on 2017. Testing performed by: [address] [address] Imm gran pct 0.3 % [facility] Comment: Interpretive Data Percent cell count reference ranges are not reported, since discordance with absolute values may lead to misinterpretation of CBC data. Current Interpretive Data was last revised on 2017. Testing performed by: [address] [address] Lymphocyte pct 6.9 % [facility] Comment: Interpretive Data Percent cell count reference ranges are not reported, since discordance with absolute values may lead to misinterpretation of CBC data. Current Interpretive Data was last revised on 2017. Testing performed by: [address] [address] Monocyte pct 3.1 % [facility] Comment: Interpretive Data Percent cell count reference ranges are not reported, since discordance with absolute values may lead to misinterpretation of CBC data. Current Interpretive Data was last revised on 2017. Testing performed by: [address] [address] Eosinophil pct 0.0 % [facility] Comment: Interpretive Data Percent cell count reference ranges are not reported, since discordance with absolute values may lead to misinterpretation of CBC data. Current Interpretive Data was last revised on 2017. Testing performed by: [address] [address] Basophil pct 0.2 % [facility] Comment: Interpretive Data Percent cell count reference ranges are not reported, since discordance with absolute values may lead to misinterpretation of CBC data. Current Interpretive Data was last revised on 2017. Testing performed by: [address] [address] Blood 09/24/2024 3:43 AM CDT 09/24/2024 4:50 AM CDT us Dariela Cortez NP LAB BLOOD ORDERABLES Final R esult TAWNYA [address] [facility] Department [place] [address] * (ABNORMAL) CBC with auto differential (09/24/2024 3:43 AM CDT) [facility] WBC 10.2(H) 3.8 - 9.9 K/cumm Comment:Testing performed by : [address] [address] Hgb 10.5(L) 11.9 - 15.5 g/dL TAW[facility]A Comment:Testing performed by : [address] [address] Hct 34.2(L) 35.6 - 45.5 % [facility]A Comment:Testing performed by : [address], [address] Plt 418(H) 150 - 400 K/cumm TAWNYA Comment:Testing performed by : [address], [address] MPV 9.7 9.1 - 12.3 fL [facility]A Comment:Testing performed by : [address], [address] RBC 4.17 3.90 - 5.20 M/cumm TAW[facility]A Comment:Testing performed by : [address] [address] MCV 82.0 81.3 - 96.4 fL [facility]A Comment:Testing performed by : [address] [address] MCH 25.2(L) 27.1 - 33.3 pg [facility]A Comment:Testing performed by : [address], [address] MCHC 30.7(L) 32.3 - 35.7 g/dL TAW[facility]A Comment:Testing performed by : [address], [address] RDW CV 15.6(H) 11.1 - 14.9 % [facility]A Comment:Testing performed by : [address], [address] RDW SD 46.4 35.7 - 48.1 fL [facility] Comment:Testing performed by : [address] [address] NRBC abs 0.00 0.00 - 0.01 K/cumm TAWNYA Comment:Testing performed by : [address] [address] Blood 09/24/2024 3:43 AM CDT 09/24/2024 4:50 AM CDT Dariela Cortez [employer] LAB BLOOD ORDERABLES Final R esult TAWNYA [address] [facility] Department of Laboratories [place], [place] [id number] * (ABNORMAL) Basic metabolic panel (09/24/2024 3:43 AM CDT) Sodium 138 135 - 145 mmol/L Comment:Testing performed by : [address] [address] Potassium, pl 4.2 3.3 - 4.9 mmol/L [facility]A Comment:Testing performed by : [address] [address] Chloride 107 97 - 110 mmol/L [facility]A Comment:Testing performed by : [address] [address] CO2 21(L) 22 - 32 mmol/L [facility]A Comment:Testing performed by : [address] [address] Anion gap 10 2 - 15 mmol/L [facility]A Comment:Testing performed by : [address] [address] BUN 10 6 - 25 mg/dL [facility]A Comment:Testing performed by : [address] [address] Creatinine 0.71 0.60 - 1.10 mg/dL [facility] Comment:Testing performed by : [address] [address] Glucose 145 70 - 199 mg/dL TAWNYA [...] performed by: [facility], [address] [place] [address]., [address] Calcium 9.7 8.5 - 10.3 mg/dL [facility]A Comment:Testing performed by : [address] [address] Blood 09/24/2024 3:43 AM CDT 09/24/2024 4:47 AM CDT us Dariela Cortez NP LAB BLOOD ORDERABLES Final R esult Performing Organization Address City/State/[facility] Co de Phone Number [facility] [address] [facility] Department [place] [address] * XR Mandible 4 or More Views [...] Arnold Chahal M.D. KH: GLADYS Report ID: [id number] Reading Location: [id number] Procedure Note Arnold Chahal MD - 09/23/2024 [...] Arnold Chahal M.D. KH: GLADYS Report ID: [id number] Reading Location: [id number] Darian Goode MD IMG XR PROCEDURES Fi nal Result * NM CLOSED TX STERNOCLAVICULAR DISLC W/MANIPULATION (09/23/2024 7:35 [...] signed by Arnold GRAHAM: GLADYS Report ID: [id number] Reading Location: [id number] Procedure Note Arnold Chahal MD - 09/23/2024 [...] signed by Arnold GRAHAM: GLADYS Report ID: [id number] Reading Location: [id number] us Jorje Huynh MD IMG XR PROCEDURES [...] López Mcclellan M.D. MM: MM Report ID: [id number] Reading Location: [id number] Procedure Note López Mcclellan MD - 09/23/2024 [...] López Mcclellan M.D. MM: MM Report ID: [id number] Reading Location: [id number] Samuel Bowen MD IMG XR PROCEDURES F inal Result * ECG 12 lead (09/23/2024 4:46 PM CDT) Ventricular Rate EKG/Min 146 BPM [facility] Atrial Rate 292 BPM [facility] QRS-Interval (MSEC) 98 ms [facility] QT-Interval (MSEC) 350 ms [facility] QTc 545 ms [facility] R [place] 58 degrees [facility] T [place] 50 degrees [facility] Diagnosis Sinus tachycardia Incomplete right bundle branch block T-wave changes When compared with ECG of 01-SEP-2024 13:54, No significant change Confirmed by SULTAN ZUNIGA M.D. ([id number]) on 09/23/2024 9:49:04 PM [facility] 09/23/2024 4:46 PM CDT 09/23/2024 9:49 PM CDT Samuel Bowen MD ECG ORDERABLES Fin al Result [facility] [place] * eGFR (09/23/2024 4:27 PM CDT) [...] was last reviewed 2021. Testing performed by: [address] [address] Blood 09/23/2024 4:27 PM CDT 09/23/2024 4:39 PM CDT us Deisy MARQUEZ LAB BLOOD ORDERABLES Final Resu lt [facility]WNYA [address] [facility] Department of Laboratories [place], [place] [id number] * (ABNORMAL) Differential, auto (09/23/2024 4:27 PM CDT) Neutrophil abs 7.2(H) 1.5 - 6.5 K/cumm Comment:Testing performed by : [address] [address] Imm gran abs 0.0 0.0 - 0.1 K/cumm TAWNYA Comment:Testing performed by : [address] [address] Lymphocyte abs 2.4 0.8 - 3.3 K/cumm TAWNYA Comment:Testing performed by : [address] [address] Monocyte abs 0.8 0.2 - 0.8 K/cumm TAWNYA Comment:Testing performed by : [address] [address] Eosinophil abs 0.1 0.0 - 0.5 K/cumm TAWNYA Comment:Testing performed by : [address] [address] Basophil abs 0.1 0.0 - 0.1 K/cumm TAW[facility]A Comment:Testing performed by : [address] [address] Neutrophil pct 68.6 % [facility]A Comment: Interpretive Data Percent cell count reference ranges are not reported, since discordance with absolute values may lead to misinterpretation of CBC data. Current Interpretive Data was last revised on 2017. Testing performed by: [address] [address] Imm gran pct 0.4 % [facility] Comment: Interpretive Data Percent cell count reference ranges are not reported, since discordance with absolute values may lead to misinterpretation of CBC data. Current Interpretive Data was last revised on 2017. Testing performed by: [address] [address] Lymphocyte pct 22.5 % [facility] Comment: Interpretive Data Percent cell count reference ranges are not reported, since discordance with absolute values may lead to misinterpretation of CBC data. Current Interpretive Data was last revised on 2017. Testing performed by: [address] [address] Monocyte pct 7.1 % [facility] Comment: Interpretive Data Percent cell count reference ranges are not reported, since discordance with absolute values may lead to misinterpretation of CBC data. Current Interpretive Data was last revised on 2017. Testing performed by: [address] [address] Eosinophil pct 0.7 % [facility] Comment: Interpretive Data Percent cell count reference ranges are not reported, since discordance with absolute values may lead to misinterpretation of CBC data. Current Interpretive Data was last revised on 2017. Testing performed by: [address] [address] Basophil pct 0.7 % [facility] Comment: Interpretive Data Percent cell count reference ranges are not reported, since discordance with absolute values may lead to misinterpretation of CBC data. Current Interpretive Data was last revised on 2017. Testing performed by: [address] [address] Blood 09/23/2024 4:27 PM CDT 09/23/2024 4:39 PM CDT us Samuel Bowen MD LAB BLOOD ORDERABLE S Final Result [facility]WNYA [address] [facility] Department [place] [address] * (ABNORMAL) CBC with auto differential (09/23/2024 4:27 PM CDT) WBC 10.5(H) 3.8 - 9.9 K/cumm Comment:Testing performed by : [address] [address] Hgb 11.9 11.9 - 15.5 g/dL [facility]A Comment:Testing performed by : [address] [address] Hct 40.4 35.6 - 45.5 % [facility]A Comment:Testing performed by : [address] [address] Plt 517(H) 150 - 400 K/cumm TAWNYA Comment:Testing performed by : [address] [address] MPV 9.3 9.1 - 12.3 fL [facility]A Comment:Testing performed by : [address] [address] RBC 4.93 3.90 - 5.20 M/cumm TAWNYA Comment:Testing performed by : [address] [address] MCV 81.9 81.3 - 96.4 fL [facility]A Comment:Testing performed by : [address] [address] MCH 24.1(L) 27.1 - 33.3 pg [facility]A Comment:Testing performed by : [address] [address] MCHC 29.5(L) 32.3 - 35.7 g/dL [facility]A Comment:Testing performed by : [address] [address] RDW CV 15.6(H) 11.1 - 14.9 % [facility]A Comment:Testing performed by : [address] [address] RDW SD 46.5 35.7 - 48.1 fL [facility]A MILLS Comment:Testing performed by : [address] [address] NRBC abs 0.00 0.00 - 0.01 K/cumm TAWNYA MILLS Comment:Testing performed by : [address] [address] Blood 09/23/2024 4:27 PM CDT 09/23/2024 4:39 PM CDT us Samuel Bowen MD LAB BLOOD ORDERABLE S Final Result [facility]WNYA [address] [facility] Department [place] [address] * Comprehensive metabolic panel (09/23/2024 4:27 PM CDT) Sodium 141 135 - 145 mmol/L Comment:Testing performed by : [address] [address] Potassium, pl 3.3 3.3 - 4.9 mmol/L [facility]A Comment:Testing performed by : [address] [address] Chloride 104 97 - 110 mmol/L [facility] Comment:Testing performed by : [address] [address] CO2 22 22 - 32 mmol/L [facility] Comment:Testing performed by : [address] [address] Anion gap 15 2 - 15 mmol/L [facility] Comment:Testing performed by : [address] [address] BUN 11 6 - 25 mg/dL [facility] Comment:Testing performed by : [address] [address] Creatinine 0.89 0.60 - 1.10 mg/dL [facility] Comment:Testing performed by : [address] [address] Glucose 153 70 - 199 mg/dL TAWNYA [...] was last revised 2022. Testing performed by: [address] [address] Calcium 9.9 8.5 - 10.3 mg/dL [facility]A Comment:Testing performed by : [address] [address] Bilirubin, total <0.2 0.1 - 1.2 mg/dL [facility]A Comment:Testing performed by : [address] [address] Protein, pl 8.0 6.5 - 8.5 g/dL [facility] Comment:Testing performed by : [address] [address] Albumin 4.6 3.5 - 5.0 g/dL [facility]A Comment:Testing performed by : [address] [address] Alk phos 84 40 - 130 Units/L [facility]A Comment:Testing performed by : [address] [address] ALT 42 7 - 45 Units/L [facility]A Comment:Testing performed by : [address] [address] AST 27 10 - 45 Units/L [facility]A Comment:Testing performed by : [address] [address] Blood 09/23/2024 4:27 PM CDT 09/23/2024 4:39 PM CDT us Samuel Bowen MD LAB BLOOD ORDERABLE S Final Result TAWNYA [address] Department [place] [address] * (ABNORMAL) CBC without differential (09/05/2024 4:27 AM DIORAMIST) [facility] WBC 14.9(H) 3.8 - 9.9 K/cumm Comment:Testing performed by : [address] [address] Hgb 10.8(L) 11.9 - 15.5 g/dL [facility]A Comment:Testing performed by : [address], [address] Hct 35.6 35.6 - 45.5 % [facility]A Comment:Testing performed by : [address], [address] Plt 414(H) 150 - 400 K/cumm TAWNYA Comment:Testing performed by : [address], [address] MPV 9.4 9.1 - 12.3 fL [facility]A Comment:Testing performed by : [address], [address] RBC 4.35 3.90 - 5.20 M/cumm TAWNYA Comment:Testing performed by : [address] [address] MCV 81.8 81.3 - 96.4 fL [facility]A Comment:Testing performed by : [address] [address] MCH 24.8(L) 27.1 - 33.3 pg [facility]A Comment:Testing performed by : [address], [address] MCHC 30.3(L) 32.3 - 35.7 g/dL [facility]A Comment:Testing performed by : [address] [address] RDW CV 15.4(H) 11.1 - 14.9 % [facility]A Comment:Testing performed by : [address], [address] RDW SD 46.2 35.7 - 48.1 fL [facility]A Comment:Testing performed by : [address] [address] NRBC abs 0.00 0.00 - 0.01 K/cumm [facility]A MILLS Comment:Testing performed by : [address] [address] Blood 09/05/2024 4:27 AM DIORAMIST 09/05/2024 5:03 AM DIORAMIST Venkat Rudd MD LAB BLOOD ORDERABLES Fi nal Result [facility]A [address] [facility] [place] [address] * (ABNORMAL) CBC without differential (09/04/2024 4:25 AM DIORAMIST) WBC 14.5(H) 3.8 - 9.9 K/cumm Comment:Testing performed by : [address] [address] Hgb 10.5(L) 11.9 - 15.5 g/dL [facility] MILLS Comment:Testing performed by : [address] [address] Hct 35.4(L) 35.6 - 45.5 % [facility] [place]S Comment:Testing performed by : [address] [address] Plt 392 150 - 400 K/cumm TAW[facility]A [place]S Comment:Testing performed by : [address] [address] MPV 9.2 9.1 - 12.3 fL [facility] [place]S Comment:Testing performed by : [address] [address] RBC 4.27 3.90 - 5.20 M/cumm [facility]A [place]S Comment:Testing performed by : [address] [address] MCV 82.9 81.3 - 96.4 fL [facility] [place]S Comment:Testing performed by : [address] [address] MCH 24.6(L) 27.1 - 33.3 pg TAW[facility]A MILLS Comment:Testing performed by : [facility], [address] [place] [address]., [address] MCHC 29.7(L) 32.3 - 35.7 g/dL [facility] M[place]S Comment:Testing performed by : [address] [address] RDW CV 15.6(H) 11.1 - 14.9 % [facility] [place]S Comment:Testing performed by : [address] [address] RDW SD 47.6 35.7 - 48.1 fL [facility] [place]S Comment:Testing performed by : [address] [address] NRBC abs 0.00 0.00 - 0.01 K/cumm [facility]A MILLS Comment:Testing performed by : [address] [address] Blood 09/04/2024 4:25 AM DIORAMIST 09/04/2024 4:41 AM DIORAMIST us Venkat Rudd MD LAB BLOOD ORDERABLES Fi nal Result [facility]A [facility] Department [place] [address] * Troponin T high-sensitivity 2-hour (09/01/2024 5:11 PM DIORAMIST) Trop T hs <6 <=14 ng/L Comment: Interpretive Data For further hscTnT resources including the diagnostic algorithm and an aid in interpretation, copy and paste this link: https://nrl.testcatalog.org/show/hsTrop Current Interpretive Data last revised 2020. Testing performed by: [address] [address] Trop T hs delta 0 ng/L [facility]A MILLS Comment:Testing performed by : [address] [address] Trop T hs interp Insignificant [facility]A MILLS Comment:Testing performed by : [address] [address] Blood 09/01/2024 5:11 PM DIORAMIST 09/01/2024 5:14 PM DIORAMIST us Wil Monteiro MD LAB BLOOD ORDERABLE S Final Result [facility]A [address] [facility] [place] [address] * Urinalysis reflex to microscopic and culture Urine (09/01/2024 4:58 PM DIORAMIST) Color, ur Yellow Yellow Comment:Testing performed by : [address] [address] Clarity, ur Clear Clear TAWNYA Comment:Testing performed by : [address] [address] Specific gravity, ur 1.015 1.003 - 1.030 [facility]A Comment:Testing performed by : [address] [address] pH, urine 7.0 TAWNYA Comment: Interpretive Data U rine pH is affected by diet, medications, systemic acid-base disturbances, and renal tubular function. pH may affect urinary stone formation. For example, urine pH below 6.0 may help reduce the tendency for calcium phosphate stones and pH greater than 6.0 may reduce the tendency for uric acid stone formation. Source: [facility] Measurabl Current Interpretive Data was last revised on 2017 Testing performed by: [address] [address] Protein, ur ql Negative Negative TAW[facility]A Comment:Testing performed by : [address] [address] Glucose, ur ql Negative Negative [facility]A Comment:Testing performed by : [address] [address] Ketones, ur Negative Negative [facility]A MILLS Comment:Testing performed by : [address] [address] Bilirubin, ur Negative Negative [facility]A Comment:Testing performed by : [address] [address] Blood, ur Negative Negative [facility]A Comment:Testing performed by : [facility], [address] [place] [address]., [address] Urobilinogen, ur <2.0 <2.0 mg/dL [facility]A Comment:Testing performed by : [address] [address] Nitrite, ur Negative Negative [facility]A Comment:Testing performed by : [address] [address] Leukocyte esterase, ur Negative Negative TAWNYA Comment:Testing performed by : [address], [place]., [address] UA reflex comment Reflex conditions for microscopic UA and culture not met. TAWNYA Comment:Testing performed by : [address] [address] Urine 09/01/2024 4:58 PM DIORAMIST 09/01/2024 4:59 PM DIORAMIST Wil Monteiro MD LAB MICROBIOLOGY - GENERAL ORDERABLES Final Result [facility] [address] [facility] [place] [address] * XR Chest 1 Vw Portable (09/01/2024 3:05 PM DIORAMIST) Anatomical Region Laterality Modality Body, Chest N/A Computed Radiogr aphy 09/01/2024 3:19 PM DIORAMIST Narrative 09/01/2024 3:22 PM DIORAMIST EXAM DESCRIPTION: XR CHEST 1 VIEW REASON FOR STUDY: allergic reaction Came to ED s/p anaphylactic reaction. Reports ate at [facility] broke out in hives and [...] Robi Arreola M.D. MZ: MZ Report ID: [id number] Reading Location: [place] [address] Procedure Note Robi Arreola MD - 09/01/2024 EXAM DESCRIPTION: XR CHEST 1 VIEW REASON FOR STUDY: allergic reaction Came to ED s/p anaphylactic reaction. [facility] broke outin hives and started having [...] Robi Arreola M.D. MZ: MZ Report ID: [id number] Reading Location: [place] [address] Wil Monteiro MD IMG XR PROCEDURES F inal Result * Troponin T high-sensitivity series (baseline, 2hr, 4hr, 6hr) (09/01/2024 2:59 PM DIORAMIST) Trop T hs <6 <=14 ng/L Comment: Interpretive Data For further hscTnT resources including the diagnostic algorithm and an aid in interpretation, copy and paste this link: https://nrl.testcatalog.org/show/hsTrop Current Interpretive Data last revised 2020. Testing performed by: [address] [address] Blood 09/01/2024 2:59 PM DIORAMIST 09/01/2024 3:03 PM DIORAMIST us Wil Monteiro MD LAB BLOOD ORDERABLE S Final Result Performing Organization Address [facility] Co de Phone Number TAWNYA [address] [place] [address] * eGFR (09/01/2024 2:59 PM DIORAMIST) eGFR >90 >=60 mL/min/1. 73 m2 Comment: [...] performed by: [facility], [address] [place] [address]., [address] Blood 09/01/2024 2:59 PM DIORAMIST 09/01/2024 3:03 PM DIORAMIST us Wil Monteiro MD LAB BLOOD ORDERABLE S Final Result Performing Organization Address City/[facility]/ZIP Co de Phone Number [facility]WNYA [address] [facility] Department [place] [address] * (ABNORMAL) Differential, auto (09/01/2024 2:59 PM DIORAMIST) Neutrophil abs 14.4(H) 1.5 - 6.5 K/cumm Comment:Testing performed by : [address] [address] Imm gran abs 0.2(H) 0.0 - 0.1 K/cumm TAWNYA Comment:Testing performed by : [address], [place]., [address] Lymphocyte abs 1.4 0.8 - 3.3 K/cumm TAW[facility]A Comment:Testing performed by : [address] [address] Monocyte abs 0.4 0.2 - 0.8 K/cumm TAWNYA Comment:Testing performed by : [address] [address] Eosinophil abs 0.0 0.0 - 0.5 K/cumm TAW[facility]A Comment:Testing performed by : [address] [address] Basophil abs 0.1 0.0 - 0.1 K/cumm TAW[facility]A Comment:Testing performed by : [address] [address] Neutrophil pct 87.3 % TAW[facility]A Comment: Interpretive Data Percent cell count reference ranges are not reported, since discordance with absolute values may lead to misinterpretation of CBC data. Current Interpretive Data was last revised on 2017. Testing performed by: [address] [address] Imm gran pct 0.9 % [facility] Comment: Interpretive Data Percent cell count reference ranges are not reported, since discordance with absolute values may lead to misinterpretation of CBC data. Current Interpretive Data was last revised on 2017. Testing performed by: [address] [address] Lymphocyte pct 8.7 % TAW[facility]A Comment: Interpretive Data Percent cell count reference ranges are not reported, since discordance with absolute values may lead to misinterpretation of CBC data. Current Interpretive Data was last revised on 2017. Testing performed by: [address] [address] Monocyte pct 2.7 % [facility] Comment: Interpretive Data Percent cell count reference ranges are not reported, since discordance with absolute values may lead to misinterpretation of CBC data. Current Interpretive Data was last revised on 2017. Testing performed by: [address] [address] Eosinophil pct 0.1 % [facility] Comment: Interpretive Data Percent cell count reference ranges are not reported, since discordance with absolute values may lead to misinterpretation of CBC data. Current Interpretive Data was last revised on 2017. Testing performed by: [address] [address] Basophil pct 0.3 % [facility] Comment: Interpretive Data Percent cell count reference ranges are not reported, since discordance with absolute values may lead to misinterpretation of CBC data. Current Interpretive Data was last revised on 2017. Testing performed by: [address] [address] Blood 09/01/2024 2:59 PM DIORAMIST 09/01/2024 3:03 PM DIORAMIST Wil Monteiro MD LAB BLOOD ORDERABLE S Final Result [facility] [address] [facility] [place] [address] * Thyroid Function [place] (09/01/2024 2:59 PM DIORAMIST) TSH 0.80 0.30 - 4.20 mcIUnit/mL Comment:Testing performed by : [address] [address] Blood 09/01/2024 2:59 PM DIORAMIST 09/01/2024 3:03 PM DIORAMIST us Wil Monteiro MD LAB BLOOD ORDERABLE S Final Result [facility] [address] [facility] [place] [address] * (ABNORMAL) CBC with auto differential (09/01/2024 2:59 PM DIORAMIST) WBC 16.5(H) 3.8 - 9.9 K/cumm Comment:Testing performed by : [address] [address] Hgb 11.3(L) 11.9 - 15.5 g/dL [facility] Comment:Testing performed by : [address] [address] Hct 36.4 35.6 - 45.5 % [facility] Comment:Testing performed by : [address] [address] Plt 465(H) 150 - 400 K/cumm [facility] Comment:Testing performed by : [address] [address] MPV 9.0(L) 9.1 - 12.3 fL [facility] Comment:Testing performed by : [address] [address] RBC 4.54 3.90 - 5.20 M/cumm [facility] Comment:Testing performed by : [address] [address] MCV 80.2(L) 81.3 - 96.4 fL [facility] Comment:Testing performed by : [address] [address] MCH 24.9(L) 27.1 - 33.3 pg [facility] Comment:Testing performed by : [address] [address] MCHC 31.0(L) 32.3 - 35.7 g/dL [facility] Comment:Testing performed by : [address] [address] RDW CV 15.1(H) 11.1 - 14.9 % [facility] Comment:Testing performed by : [address] [address] RDW SD 44.1 35.7 - 48.1 fL [facility] Comment:Testing performed by : [address] [address] NRBC abs 0.00 0.00 - 0.01 K/cumm [facility] Comment:Testing performed by : [address] [address] Blood 09/01/2024 2:59 PM DIORAMIST 09/01/2024 3:03 PM DIORAMIST Wil Monteiro MD LAB BLOOD ORDERABLE S Final Result Performing Organization Address [facility] Co de Phone Number [address] [place] [address] * Magnesium (09/01/2024 2:59 PM DIORAMIST) Pathologist [facility] Magnesium 2.0 1.4 - 2.5 mg/dL Comment:Testing performed by : [address] [address] Blood 09/01/2024 2:59 PM DIORAMIST 09/01/2024 3:03 PM DIORAMIST us Wil Monteiro MD LAB BLOOD ORDERABLE S Final Result Performing Organization Address [facility] Co de Phone Number [address] [address] * Basic metabolic panel (09/01/2024 2:59 PM DIORAMIST) Sodium 140 135 - 145 mmol/L Comment:Testing performed by : [address] [address] Potassium, pl 4.0 3.3 - 4.9 mmol/L [facility] Comment:Testing performed by : [address] [address] Chloride 103 97 - 110 mmol/L [facility] Comment:Testing performed by : [address] [address] CO2 23 22 - 32 mmol/L [facility] Comment:Testing performed by : [address] [address] Anion gap 14 2 - 15 mmol/L [facility] Comment:Testing performed by : [address] [address] BUN 17 6 - 25 mg/dL [facility] Comment:Testing performed by : [address] [address] Creatinine 0.68 0.60 - 1.10 mg/dL [facility] Comment:Testing performed by : [address] [address] Glucose 147 70 - 199 mg/dL [facility] [...] was last revised 2022. Testing performed by: [address] [address] Calcium 9.3 8.5 - 10.3 mg/dL [facility] Comment:Testing performed by : [address] [address] Blood 09/01/2024 2:59 PM DIORAMIST 09/01/2024 3:03 PM DIORAMIST us Wil Monteiro MD LAB BLOOD ORDERABLE S Final Result [facility] [address] [facility] Department [place] [address] * POCT hCG, urine (09/01/2024 2:28 PM DIORAMIST) HCG, ur, POC Negative Negative Lot Number [id number] QC Backgroud Clear Acceptable QC Control Line Acceptable Urine 09/01/2024 2:28 PM DIORAMIST Wil Monteiro MD POINT OF CARE TEST ORDERABLES Final Result * ECG 12 lead (09/01/2024 1:54 PM DIORAMIST) Ventricular Rate EKG/Min 153 BPM [facility] Atrial Rate 153 BPM [facility] NM-Interval (MSEC) 116 ms [facility] QRS-Interval (MSEC) 88 ms [facility] QT-Interval (MSEC) 328 ms [facility] QTc 523 ms [facility] P [place] 57 degrees [facility] R [place] 67 degrees [facility] T [place] 44 degrees [facility] Diagnosis Sinus tachycardia Otherwise normal ECG When compared with ECG of 20-AUG-2024 02:26, T wave inversion no longer evident in Anterior leads Confirmed by LAWRENCE YIP M.D. ([id number]) on 09/02/2024 9:10:53 AM [facility] 09/01/2024 1:54 PM DIORAMIST 09/02/2024 9:10 AM DIORAMIST us Wil Monteiro MD ECG ORDERABLES Fin al Result [facility] from Last 3 Months Insurance [facility] CHO[facility] PLUS [facility] HMO/PPO Address: [address] [place] [address] [facility] CHOICE PLUS [facility] HMO/PPO Address: [address] [place] [address] Advance Directives For more information, please contact: [phone] * Full Code (Latest Code Status on File) Date Activated Date Inactivated Comments 09/23/2024 7:38 PM 09/24/2024 5:41 PM * Full Code Date Activated Date Inactivated Comments 09/01/2024 7:30 PM 09/05/2024 3:39 PM * Full Code Date Activated Date Inactivated Comments 08/19/2024 9:45 PM 08/22/2024 5:15 PM Care Teams Electricity Trading Analyst Relationship Specialty Start Date End Date Shannan Maldonado MD PCP - General 09/07/19
--- OUTSIDE RECORDS SUMMARY | 2024-11-27 06:53 | XMS_ITS | Continuity of Care Document ---
Author Organization [facility] Address [address] [place] [address] Phone Care Team Providers Care Heating Element Builder Name Role Phone Manuel Anthony MD Unavailable [...] Diagnoses Date Provider Providers Copied on Encounter legalPADdamian KSKT, [address], [place], [place], [address] , [place] tel: [phone] [facility] No Information 2 Gabrielle Jackson. [address] , [place], [place], [address] , [place]. tel: [phone] Referring Provider: Lazarus Blandon, [address], [place], [address]. tel:[phone] [facility], [address], [place], [place], [address] , [place] tel: [phone] [facility] No Information [address] [place] [address], [id number] , [place]. tel: [phone] [facility], [address], [place], [place], [address] , [place] tel: [phone] [facility] Abdominal pain, unspecified abdominal locationGastroesop hageal reflux disease without esophagitisFlatule nce symptomIrritable bowel syndrome without diarrhea 6 Aida Nava. [address], [address], [place], [place], [address] , [place]. tel: [phone] Referring Provider: Shannan Maldonado, [address], [place], [address]. tel:[phone] [facility], [address], [place], [place], [address] , [place] tel: [phone] [facility] No Information 5 Lawson Cai. [address], [id number] , [place]. tel: [phone] [facility], [address], [place], [place], [address] , [place] tel: [phone] [facility] Anaphylaxis, initial encounter Lawson Cai. [address], [id number] , [place]. tel: [phone] [facility], [address], [place], [place], [address] , tel: [phone] [facility] Anaphylaxis, initial encounter Lawson Cai. [address], [id number] , [place]. tel: [phone] [facility], [address], [place], [place], [address] , tel: [phone] [facility] Anaphylaxis, initial encounter Lawson Cai. [address], [id number] , [place]. tel: [phone] Referring Provider: Shannan Maldonado [address] [place], [address]. tel:[phone] Family History Family Member Type Diagnosis Age At Onset No Information Payers Payer name Insurance type Covered democrat ID Herminia cervantes(s) SANYA PASTRANA CI [id number] Social History Type Description Quantity Date Captured [...]
[2024-11-27 07:48] LABS: Basophils Absolute Auto 0.1 K/mm3 (0.0-0.1); Basophils Percent Auto 0.8 % (0.2-1.2); Eosinophils Absolute Auto 0.2 K/mm3 (0-0.3); Eosinophils Percent Auto 2.2 % (0-4.4); Hematocrit 39.3 % (37.0-47.0); Hemoglobin 11.7 g/dL (12.0-15.0); Immature Granulocyte Absolute 0.02 K/mm3 (0.00-0.031); Immature Granulocyte Percent A 0.3 % (0-0.5); Lymphocytes Percent Auto 30.8 % (18.3-44.2); Mean Corpuscular HGB Conc 29.8 g/dl (32-36); Mean Corpuscular Hemoglobin 23.8 pg (26-34); Mean Corpuscular Volume 79.9 fl (80-100); Mean Platelet Volume 9.7 fl (7.4-10.4); Monocytes Absolute Auto 0.6 K/mm3 (0.1-0.6); Monocytes Percent Auto 8.7 % (2.6-8.5); Neutrophils Absolute Auto 4.1 K/mm3 (1.3-6.7); Neutrophils Percent Auto 57.2 % (45.5-73.1); Platelet Count Result 423 k/mm3 (150-375); Red Blood Count 4.92 M/mm3 (4.2-5.4); Red Cell Distribution Width 16.4 % (11.5-14.5); White Blood Count 7.2 K/mm3 (4.5-10.0)
[2024-11-27 07:59] LABS: Hemoglobin A1C 5.2 % (<5.7)
[2024-11-27 08:04] LABS: Alanine Aminotransferase 22 U/L (6-35); Albumin Level 4.5 g/dL (3.5-5.1); Alkaline Phosphatase 76 U/L (38-126); Anion Gap 11 mmol/L (4-12); Aspartate Amino Transferase 36 U/L (14-36); Bilirubin,Total 0.3 mg/dL (0.2-1.3); Blood Urea Nitrogen 14 mg/dL (7-17); Calcium 9.6 mg/dL (8.4-10.2); Carbon Dioxide 24 mmol/L (22-30); Chloride 106 mmol/L (98-107); Cholesterol 232 mg/dL (0-200); Estimated Glomerular Filt Rate > 60; Glucose 98 mg/dL (65-110); HDL Direct 71 mg/dL; Potassium 3.9 mmol/L (3.4-5.0); Sodium 141 mmol/L (137-145); Triglycerides 142 mg/dL (<150)
[2024-11-27 08:15] LABS: LDL Cholesterol Direct 110 mg/dL
[2024-11-27 08:26] LABS: Anisocytosis 1+; Hypochromasia 1+; Platelet Estimate Increased (Adequate); Schistocytes None Seen
[2024-11-27 09:37] LABS: Free T4 Free Thyroxine 0.71 ng/dL (0.78-2.19); Vitamin D 25 Hydroxy 17.5 ng/mL
[2024-11-28 14:43] LABS: Insulin Level Total 20.8 uIU/mL
== END 2024-11-27 06:49 | disposition home or self-care (01) ==
PROVIDERS: PCP Family Medicine; Referring Provider Obstetrics & Gynecology Gynecology; Visit Provider Student in an Organized Health Care Education/Training Program
DX: E55.9 Vitamin D deficiency, unspecified (principal); Z00.00 Encounter for general adult medical examination without abnormal findings; F41.9 Anxiety disorder, unspecified; D64.9 Anemia, unspecified; R53.83 Other fatigue
CPT/HCPCS: 36415; 80053; 80061; 82306; 83036; 83525; 84439; 84443; 85025

== ENCOUNTER 2024-12-11 06:48 | Outpatient (CLI) | payer OTHER, SELFPAY ==
--- NOTE | ~2024-12-11 | MR_ITS ---
MRI of the thoracic spine Clinical History: Pain Technique: Axial T2-weighted and gradient images, and sagittal T1-weighted, T2-weighted, and STIR marychuy ges were acquired. Findings: There is no fracture or subluxation of the thoracic spine. Vertebral bodies maintain normal height and alignment. No bone marrow signal reality seen. Diverticulosis maintain normal signal and position. No disc bulge or herniation seen in the thoracic spine. No spinal canal stenosis or cord compression. Neural foramina are preserved throughout the tho racic spine. No abnormal signal seen in the spinal cord. No epidural mass or collection. Paravertebral soft tissue s are unremarkable. Impression: Normal exam. Reviewed, dictated and finalized at location M. Impression: Normal exam.
--- OUTSIDE RECORDS SUMMARY | 2024-12-11 06:51 | XMS_ITS | Data Portability ---
Author Organization [place] WILLARD [email or web address] Address [address] [place] [address] Care Team Providers Care Receptionist/Telephone Operator Name Role Phone JOSH GONZALES Primary Care Provider Assessment Encounter Date Assessment Date Assessment LastModified by Organization Details LastModified Time 02/03/2020 02/03/2020 Time spent with patient:_30_mi juwan. For Telephone Audio Only Visits: Have you been seen in the last 7 days for the same or similar condition by an [facility] provider? No I did not request that [...] rologist referral 2022 023 MY perez MD, [address], [place], [address], 3 12:45:36 Procedures None recorded. Surgeries None recorded. Imaging None recorded. Medication Orders cyclobenza emily 10 mg tablet 2024 025 [place] [facility], [address], [place], [place], [id number], 5 14:27:32 cyclobenza emily 10 mg tablet 2023 024 [place] [facility] #66110, [address], [place], [place], [id number], 4 08:35:50 cyclobenza emily 10 mg tablet 2023 024 [place] [facility] #62324, [address], [place], [place], [id number], 4 12:12:49 cyclobenza emily 10 mg tablet 2022 023 btinkle [facility] #71291, [address], [place], [place], [id number], 3 07:57:02 cyclobenza emily 10 mg tablet 2019 020 [email or web address] [facility], [address], [place], [place], [id number], 3 09:31:39 Patient TargetsNo targets recorded. Patient Instructions Encounter Date Encounter Id Patient Instructions Last Modified By Organization Details Last Modified Time 02/03/2020 [id number] hand-washing: ca re instructions btinkle Not available [...] Will renew cyclobenzaprine. 2) Can discuss with correctional captain installing posts and rubber bands to help stablize the jaw in the interim. 3) If further issues with the navicual/talar joint, may want junction maker to speak with or you to see Dr. Sarath Medrano, a junction maker with vast experience in [place] currently in [place]. May also want to consider stem cell injection in the joint as well. 4) Return to clinic in 6 months or earlier as needed I spent 30 minutes with the patient with greater than 20 minutes on counseling and coordination of care. btinkle Not available 02/03/2020 11:39:03 02/17/2023 [id number] 1) Encouraged to maintain fluids at 100 [...] on gastroparesis and lowFODMAP. 4) Referral to [facility] 5) Will renew cyclobenzaprine 10mg [...] record. btinkle Not available 02/20/2023 08:08:29 08/25/2023 [id number] 1) Continue with home exercise program 2) [...] record. btinkle Not available 08/25/2023 12:12:42 02/09/2024 [id number] 1) Continue home exercises 2) Will renew [...] record. 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 Denis Bush MD [address] [place] [address], [address], [place], [address] , [place] [facility] 5 14:31:39 Pain of multiple joints 66884473 Active 2018 Not Available [facility] 3 03:21:18 Muscle pain 26273975 Active 2018 Not Available [facility] 3 03:21:18 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 Procedures Surgical History Date Name Laterality Status Provider Name and Address Organization Details Recorded Time 07/03/19 24 Foot Surgery completed Thelma Shabazz [place] [facility] 09/11/2024 14:05:06 07/03/19 22 Orthopedic surgery ss completed Calista Ovalle [place] [facility] 02/17/2023 09:39:02 04/08/20 19 Fall Risk Assessment ADULT completed John Greer LPN [place] [facility] 04/08/2019 09:34:06 11/13/19 16 tarsal tunnel release completed Denis Bush MD [address] [place] [address], [address] [place] [address], [address], [place] [facility] 04/09/2019 16:03:02 11/01/19 11 tonsillectomy completed Denis Bush MD [address] [place] [address], [address], [place], [address], [place] [facility] 04/09/2019 16:03:25 11/07/19 10 Knee Surgery completed Denis Bush MD [address] [place] [address], [address], [place], [address], [place] [facility] 04/09/2019 16:02:02 Imaging Results None recorded. Procedure Notes None recorded. Medical Equipment None Reported. Allergies Allergen ID Allergen Name Allergen Category Reaction Reaction Severity Criticality Documentation Date Start Date Code Code System Note Provider Name and Address Organization Details Recorded Time 6839095 Cymbalta medicatio n Not available Not available Not available 04/08/2019 88014 4 RxNorm John Greer GEOMAGNETIST null, [place] [facility] 9 09:26:54 6843959 Biaxin medicatio n anaphylax is Not available Not available 04/08/2019 60916 9 RxNorm John Greer GEOMAGNETIST null, [facility] 9 09:27:19 8288731 Demerol medicatio n vomiting Not available Not available 04/08/2019 79072 1 RxNorm John Reading GEOMAGNETIST null, [facility] 9 09:27:38 9401247 azithromy benedict medicatio n other Not available Not available 04/08/2019 11786 RxNorm vomit ing, sever stoma ch cramp ting, diarr hea John Greer GEOMAGNETIST null, [facility] 9 09:28:40 5990408 Dilaudid medicatio n hives lighthead edness Not available Not available Not available 04/08/2019 92518 3 RxNorm John Reading GEOMAGNETIST null, [facility] 9 09:29:19 7472278 hydrocodo ne Not available anaphylax is severe Not available 02/03/2020 5489 RxNorm Tabby Yaron null, [place] [facility] 0 08:04:23 5027709 lorazepam medicatio n Not available Not available Not available 02/09/2024 6470 RxNorm Calista Vasquez null, [place] [facility] 4 08:11:35 Medications Name Sig Start Date [...] Relief 50 mcg/actuat ion nasal spray,susp ension [place] 1 spray every day by intranas al [...] Updated DateTime 08/25/2023 172 cm Chapis Josue [facility] 08/25/2023 11:20:45 Date Recorded Heart rate Body height Body mass index (BMI) Body weight Systolic blood pressure Diastolic blood pressure Provider Name and Address Organization Details Last Updated DateTime 3 102 /min 172 cm 29.4 kg/m2 52101 g 138 mm[Hg] 88 mm[Hg] Calista Justiceby [facility] 3 09:40:12 Social History Question Answer Notes LastModified by Organizat ion Details LastModified Time Tobacco Smoking Status Never Smoker Vinh Huizar LPN [facility] 04/08/2019 09:19:44 Are You Blind Or Do You Have Difficulty Seeing? Yes Glasses [email or web address] Information not available 09/11/2024 What Is Your Level Of Caffeine Consumption? Moderate [email or web address] Information not available 09/11/2024 Are You Deaf Or Do You Have Serious Difficulty Hearing? No [email or web address] Information not available 09/11/2024 What Type Of Diet Are You Following? REGULAR Information not available 02/17/2023 Physical Therapy No Informat ion not available 02/03/2020 Speech Therapy No Informatio n not available 02/03/2020 Occupational Therapy No Information not available 02/03/2020 Have You Had A Fever And/or Symptoms Of A Lower Respiratory Illness (cough, Difficulty Breathing, Etc)? No Information not available 02/03/2020 What Was The Date Of Your Most Recent Tobacco Screening? 09/11/2024 [email or web address] Information not available 09/11/2024 Do You Have Any Pets? Yes [email or web address] Information not available 02/17/2023 Do You Use Your Seat Belt Or Car Seat Routinely? Yes [email or web address] Information not available 02/17/2023 Do You Have Smoke And Carbon Monoxide Detectors In Your Home? Yes [email or web address] Information not available 02/17/2023 How Much Tobacco Do You Smoke? No Information not available 04/08/2019 How Many Years Have You Smoked Tobacco? 0 [email or web address] Information not available 04/08/2019 Are You Currently In School? No [email or web address] Information not available 02/17/2023 Sex: Female Functional Status Question Answer Note LastModified by Organizat ion Details LastModified Time Do you use any illicit or recreational drugs? No [email or web address] Information not available 09/11/2024 What is your level of alcohol consumption? Occasional Information not available 02/17/2023 Do you or have you ever used smokeless tobacco? Never used smokeless tobacco [email or web address] Information not available 04/08/2019 Are you currently employed? No [email or web address] Information not available 02/17/2023 Do you or have you ever used e-cigarettes or vape? Never used electronic cigarettes [email or web address] Information not available 04/08/2019 What is your exercise level? None [email or web address] Information not available 09/11/2024 Mental Status None recorded. Family History Nothing Reported. Medical History No medical history recorded. Gynecological HistoryNo gynecological history recorded. Obstetrics History GPAL:G 0 P 0 0 0 0 Past Encounters Encounter ID Performer Location Encounter Start Date Encounter Closed Date Diagnosis/Indication Diagnosis SNOMED-CT Code Diagnosis ICD10 Code Diagnosis Note [id number] Denis Bush MD IND_PED_D GH_DOC [address] 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 12842093 Q79.62 [id number] Denis Bush MD IND_PED_D GH_DOC [address], [place] [address] [place] [address] 2 02/17/2023 09:19:03 02/17/2023 10:23:58 Nausea and vomiting 09996993 R11.2 ?dysautono rosy Postural o rthostatic tachycardia syndrome 727961762 I95.1 Muscle pain 77549357 M79 .10 Pain of mu ltiple joints 42162982 M25.50 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 36218096 Q79.62 [id number] Denis Bush MD IND_PED_D GH_DOC [address], [place] [address] [place] [address] 2 08/25/2023 11:20:24 08/25/2023 12:13:59 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 74364641 Q79.62 Pain of mu ltiple joints 07488602 M25.50 Postural o rthostatic tachycardia syndrome 816409672 I95.1 Muscle pain 20496791 M79 .10 [id number] Denis Bush MD IND_PED_D GH_DOC [address] [place], [place] [address] [place] [address] 2 02/09/2024 08:10:27 02/09/2024 08:36:09 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 91107669 Q79.62 Pain of mu ltiple joints 98726342 M25.50 Postural o rthostatic tachycardia syndrome 331548510 I95.1 Muscle pain 01759250 M79 .10 [id number] Denis Bush MD IND_PED_D GH_DOC [address] [place] [address] 09/11/2024 14:02:38 09/11/2024 14:33:31 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 19476356 Q79.62 Postural o rthostatic tachycardia syndrome 507307666 I95.1 Muscle pain 50134012 M79 .10 Mast cell activation syndrome 1233841740 7169252 D89.40 Health Concerns Section Related Observation LastModified by Organization Detai ls LastModified Time None Recorded Concern Status LastModified by Organization Details LastModified Time None Recorded Advance Directives Directive None Recorded Payers Insurance Date Sequence Insurance Name Policy Number Policy Hilario Covered Member ID Hilario Member ID Guarantor Name 09/09/2024 1 *SELF PAY* Ca timothy Koenig 09/09/2024 1 [employer] [id number] Anson Koenig [id number] Rosangela Koenig 09/11/2024 1 [facility] [id number] Armand Koenig [id number] Rosangela Koenig Notes Date Note Type Note [...] navicular/talus dislocation. She is followed by a junction maker and orthopedist. She has gone through two [...] follow up. She is currently working an correctional captain to fix her bite before consideration of an oral appliance. 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 She reports occasional migrating muscle spasms often involving her neck and back. Rosangela is having oral ulcers. She was referred to an research rn spec to look at possible mast cell involvement. Denis Bush MD [address], [place], [address], [facility] 02/03/2020 11:39:42 02/17/2023 text/html Rosangela is a [...] having idiopathic anaphylaxis. She has seen an vice president integrated who has told her it is not mast cell activation syndrome. She has been taking antihistamines and recently placed on Xolair. Rosangela has benefited from use of cyclobenzaprine but she has not been using it for fear of dependency. Rosangela has also had three syncopal convulsions. No MRI and no further workup. Denis Bush MD [address], [address], [place], [address], [place] [facility] 02/20/2023 08:08:48 08/25/2023 text/html Patient acknowle [...] is helping. Denis Bush MD [address] , [address], [place], [address], [place] [facility] 08/25/2023 12:13:27 02/09/2024 text/html Patient acknowle [...] MD [address], [place], [address], [place] [facility] 02/09/2024 08:35:35 09/11/2024 text/html Rosangela is [...] MD [address] , [address], [place], [address], [place] 09/11/2024 14:32:39 OBGyn Episode No OBEpisode recorded.
--- OUTSIDE RECORDS SUMMARY | 2024-12-11 06:52 | XMS_ITS | Continuity of Care Document ---
Author Organization [facility] Address [address] [facility] [address] [place] [address] Phone Care Team Providers Care Performance Test Architect Name Role Phone No Information Unavailable Unavailable Advance Directives Directive Yes / No Effective Date File Name No Information Encounters Encounter Description Practice Location Reason(s) For Visit Diagnoses Date Provider Providers Copied on Encounter [facility], [address] [facility] [address] [facility] [address], [place], [place], [id number], [place] tel:[phone] [facility] No Information No Information Family [...]
--- OUTSIDE RECORDS SUMMARY | 2024-12-11 06:52 | XMS_ITS | Continuity of Care Document ---
Author Organization [address] Address [address] [place] [address] Phone Care Team Providers Care Rock Singer Name Role Phone Manuel Anthony MD Unavailable [...] Diagnoses Date Provider Providers Copied on Encounter [employer], [address], [place], [place], [id number] , [place] tel: [phone] [facility] No Information 2 Gabrielle Jackson. [address] , [place], [place], [id number] , [place]. tel: [phone] Referring Provider: Lazarus Blandon, [address], [place], [address]. tel:[phone] [address], [address], [place], [place], [address] , [place] tel: [phone] [facility] No Information 6 Lawson Cai. [address] [place] [address], [id number] , [place]. tel: [phone] [address], [address], [place], [place], [id number] , [place] tel: [phone] [facility] Abdominal pain, unspecified abdominal locationGastroesop hageal reflux disease without esophagitisFlatule nce symptomIrritable bowel syndrome without diarrhea 6 Aida Nava. [address] [facility], [address], [place], [place], [id number] , [place]. tel: [phone] Referring Provider: Shannan Maldonado, [address], [place], [address]. tel:[phone] [address], [address], [place], [place], [id number] , [place] tel: [phone] [facility] No Information 5 Lawson Cai. [address], [id number] , [place]. tel: [phone] [address], [address], [place], [place], [id number] , [place] tel: [phone] [facility] Anaphylaxis, initial encounter Lawson Cai. [address], [id number] , [place]. tel: [phone] [facility], [address], [place], [place], [address] , tel: [phone] [facility] Anaphylaxis, initial encounter Lawson Cai. [address], [id number] , [place]. tel: [phone] [facility], [address], [place], [place], [address] , tel: [phone] [facility] Anaphylaxis, initial encounter Lawson Cai. [address], [id number] , [place]. tel: [phone] Referring Provider: Shannan Maldonado [address] [place], [address]. tel:[phone] Family History Family Member Type Diagnosis Age At Onset No Information Payers Payer name Insurance type Covered republican ID Herminia cervantes(s) SANYA [id number] CI [id number] Social History Type Description Quantity Date Captured [...]
--- OUTSIDE RECORDS SUMMARY | 2024-12-11 06:52 | XMS_ITS | Referral Summary ---
Author Organization [facility] Geena Hernandez Extdamian nsion Address [address] [facility] [place] [address] Care Team Providers Care Ditch Cleaner Name Role Phone Shannan Maldonado MD Primary Care Provider [phone] Encounters Date Type Department Care Team Description 11/21/2024 2:[address] [facility] Otolaryngology [address] [place] [address] Office [address] [address] Sima Trent SLP Sensation of swollen throat (Primary Dx); Dysphonia 11/21/2024 2:20 PM CDT Office Visit [facility] ENT [address] [place] [address] Office [address] [address] Giovana Loaiza MD Sensation of swollen throat 11/19/2024 10:00 AM CDT Office Visit [facility] Allergy and Immunology [address] [place] [address] [address] [place] [address] Oneyda Vaughan NP Idiopathic urticaria (Primary Dx); Mast cell activation syndrome; SOB (shortness of breath); Allergic reaction, subsequent encounter 10/11/[address] [facility] Allergy and Immunology [address] [place] [address] [address] [place] [address] Ame Pulido RN 10/09/2024 10:00 AM CDT Office Visit [facility] Allergy and Immunology [address] [facility] [address] [place] [address] Susan Suarez MD Idiopathic urticaria (Primary Dx); Mast cell activation syndrome; SOB (shortness of breath) 10/07/2024 Telephone [facility] - [facility] ENT [address] [facility] 11th [place] [address] [place] [address] Aguirre, Umm, 10/03/2024 11:35 AM CDT - 10/03/2024 1:37 PM CDT Emergency [facility] Emergency Department [address] [place] [address] Abhay Velez MD Allergic reaction, initial encounter (Primary Dx) Discharge Disposition: Discharge to home or self care 10/02/[address] [facility] Allergy and Immunology [address] [place] [address] [address] [place] [phone] Oneyda Vaughan NP Sensation of swollen throat (Primary Dx) 10/02/[address] [facility] Allergy and Immunology [address] [place] [address] [address] [place] [phone] Oneyda Vaughan NP High risk medication use (Primary Dx) 10/01/[address] [facility] Infectious Diseases [address] [facility] [address] [place] [address] Cordelia Rudd RMA 09/30/2024 1:00 PM CDT Office Visit [facility] Allergy and Immunology [address] [place] [address] [address] [place] [address] Oneyda Vaughan NP SOB (shortness of breath) (Primary Dx) 09/30/[address] [facility] Allergy and Immunology [address] [place] [address] [address] [place] [phone] Ame Pulido RN 09/28/2024 7:55 PM CDT - 09/28/2024 10:39 PM CDT Emergency [facility] Emergency Department [address] [place] [address] Simran Frank MD Allergic reaction, initial encounter (Primary Dx) Discharge Disposition: Discharge to home or self care 09/27/2024 3:49 AM CDT - 09/27/2024 6:10 AM CDT Emergency [facility] Emergency Department [facility] [place] [address] Ferdinand Rivera DO Allergic reaction, initial encounter (Primary Dx); Jaw pain Discharge Disposition: Discharge to home or self care 09/23/2024 4:55 PM CDT - 09/24/2024 1:30 PM CDT Hospital Encounter [facility] [address] [place] [address] Samuel Bowen MD [place], MD Nimesh Galaviz [...] drink = 0.6 oz pur e alcohol) [facility] Utilities Answer Date Recorded In the past 12 months has e [employer], gas, oil, or water [employer] threatened to shut off services in your [...] often do you attend chur ch or hindu services? Never 09/24/2024 Do you belong to [...] in the past [address] 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 Gender Identity Female 07/01/2022 7:31 PM [employer]PLIT [employer]ATH[employer]PARTMENT SUPERVISOR Sexual Orientation Not on file Last [...] VIEWS Critical/Life-T hreatening 09/23/2024 8:29 PM CDT [place] CLOSED [place] [...] METABOLIC PANEL STAT 09/23/2024 4:27 PM CDT from Last 3 Months Results * (ABNORMAL) Immature Cells (10/02/2024 11:30 AM CDT) [facility] Metamyelocyte 1(H) 0 - 0 % [facility] - 01 Myelocyte 5(H) 0 - 0 % [facility] - 01 10/02/2024 11:3 0 AM CDT 10/02/2024 Narrative [facility] - 10/03/2024 11:10 AM CDT Performed at: [address] [place] [id number] Paving Plant Operator: Lucio Ellison PhD, Phone: [phone] us Susan Suarez MD LAB BLOOD ORDERABLES Fi nal Result [facility] - 01 * (ABNORMAL) Cyclosporine A level trough (10/02/2024 11:30 AM CDT) [facility] Cyclosporine by Immunoassay <25(L) 100 - 400 ng/mL [facility] - 01 Comment: Verified by repeat analysis Therapeutic: Renal Transplant 100 - 250 Liver Transplant 100 - 400 Cardiac Transplant 100 - 400 Bone Marrow 200 - 300 Detection Limit = 25 Cyclosporine assay performed by [employer] Immunoassay. If preferred testing methodology for cyclosporine is Liquid Chromatography Tandem Mass Spectrometry (LC-MS/MS), please use test code [id number]. For testing performed by Immunoassay, please use test code [id number]. Blood 10/02/2024 11:3 0 AM CDT 10/02/2024 Narrative [facility] - 10/03/2024 3:10 PM CDT Performed at: [address] [id number] Paving Plant Operator: Lucio Ellison PhD, Phone: [phone] Susan Suarez MD LAB BLOOD ORDERABLES Fi nal Result Performing Organization Address [facility]/ZIP Co de Phone Number [facility] - * (ABNORMAL) Microscopic Examination (10/02/2024 11:30 AM CDT) Pathologist [facility] WBC, ur 0-5 0 - 5 /hpf [...] 10/03/2024 7:09 AM CDT Performed at: [address] [id number] Paving Plant Operator: Lucio Ellison PhD, Phone: [phone] us Susan Suarez MD LAB BLOOD ORDERABLES Fi nal Result Performing Organization Address [facility]/ZIP Co de Phone Number [facility] - * (ABNORMAL) Urinalysis reflex to microscopic (10/02/2024 11:30 AM CDT) Pathologist [facility] Specific [place] 1.015 1.005 - 1.030 [facility] - 01 [...] See below: [facility] - 01 Comment:Microscopic was deo cated and was performed. Urine 10/02/2024 11:3 0 AM CDT 10/02/2024 Narrative [facility] - 10/03/2024 7:09 AM CDT Performed at: [address] [id number] Paving Plant Operator: Lucio Ellison PhD, Phone: [phone] us Susan Suarez MD LAB URINE ORDERABLES nal Result Performing Organization Address [facility]/State/ZIP Co de Phone Number [facility] 01 * (ABNORMAL) CBC with auto differential (10/02/2024 11:30 AM CDT) [facility] WBC 15.2(H) 3.4 - 10.8 x10E3/uL [...] - 10/03/2024 11:10 AM CDT Performed at: [address] [place] [id number] Paving Plant Operator: Lucio Ellison PhD, Phone: [phone] us Susan Suarez MD LAB BLOOD ORDERABLES Fi nal Result [facility] - 01 * Comprehensive metabolic panel (10/02/2024 11:30 AM CDT) [facility] Glucose 70 70 - 99 mg/dL [...] - 10/03/2024 8:12 AM CDT Performed at: [address] [place] [id number] Paving Plant Operator: Lucio Ellison PhD, Phone: [phone] us Susan Suarez MD LAB BLOOD ORDERABLES Fi nal Result [facility] - 01 * XR Neck Soft [...] 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 Wheezes throughout upon auscultation with [...] Shirley Reardon M.D. 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 Wheezes throughout upon auscultation with [...] Shirley Reardon M.D. 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 KH: KH Report ID: [id number] Reading Location: [place] [address] Simran Frank MD IMG XR PROCEDURES Final [...] reviewed 2021. Testing performed by: [facility], [address] [place] [address]., [address] Blood 09/28/2024 8:10 PM CDT 09/28/2024 8:12 PM CDT us Simran Frank MD LAB BLOOD ORDERABLES Ruthy l Result [facility] [address] [facility] Department [place] [address] * (ABNORMAL) Differential, auto (09/28/2024 8:10 PM CDT) Neutrophil abs 12.9(H) 1.5 - 6.5 K/cumm Comment:Testing performed by : [address], [place]., [address] Imm gran abs 0.2(H) 0.0 - 0.1 K/cumm [facility] Comment:Testing performed by : [address], [place]., [address] Lymphocyte abs 3.9(H) 0.8 - 3.3 K/cumm [facility] Comment:Testing performed by : [address], [place]., [address] Monocyte abs 1.6(H) 0.2 - 0.8 K/cumm [facility] Comment:Testing performed by : [address] [address] Eosinophil abs 0.0 0.0 - 0.5 K/cumm [facility] Comment:Testing performed by : [address] [address] Basophil abs 0.0 0.0 - 0.1 K/cumm [facility] Comment:Testing performed by : [address] [address] Neutrophil pct 69.2 % [facility] Comment: Interpretive Data Percent cell count reference ranges are not reported, since discordance with absolute values may lead to misinterpretation of CBC data. Current Interpretive Data was last revised on 2017. Testing performed by: [address] [address] Imm gran pct 1.1 % [facility] Comment: Interpretive Data Percent cell count reference ranges are not reported, since discordance with absolute values may lead to misinterpretation of CBC data. Current Interpretive Data was last revised on 2017. Testing performed by: [address] [address] Lymphocyte pct 20.7 % [facility] Comment: Interpretive Data Percent cell count reference ranges are not reported, since discordance with absolute values may lead to misinterpretation of CBC data. Current Interpretive Data was last revised on 2017. Testing performed by: [address] [address] Monocyte pct 8.7 % [facility] Comment: Interpretive Data Percent cell count reference ranges are not reported, since discordance with absolute values may lead to misinterpretation of CBC data. Current Interpretive Data was last revised on 2017. Testing performed by: [address] [address] Eosinophil pct 0.1 % [facility] Comment: Interpretive Data Percent cell count reference ranges are not reported, since discordance with absolute values may lead to misinterpretation of CBC data. Current Interpretive Data was last revised on 2017. Testing performed by: [address] [address] Basophil pct 0.2 % [facility] Comment: Interpretive Data Percent cell count reference ranges are not reported, since discordance with absolute values may lead to misinterpretation of CBC data. Current Interpretive Data was last revised on 2017. Testing performed by: [address] [address] Blood 09/28/2024 8:10 PM CDT 09/28/2024 8:11 PM CDT us Simran Frank MD LAB BLOOD ORDERABLES Ruthy trivedi Result [facility] [address] [facility] Department [place] [address] * (ABNORMAL) CBC with auto differential (09/28/2024 8:10 PM CDT) WBC 18.6(H) 3.8 - 9.9 K/cumm Comment:Testing performed by : [address] [address] Hgb 11.3(L) 11.9 - 15.5 g/dL [facility] Comment:Testing performed by : [address] [address] Hct 36.0 35.6 - 45.5 % [facility] Comment:Testing performed by : [address] [address] Plt 601(H) 150 - 400 K/cumm [facility] Comment:Testing performed by : [address] [address] MPV 9.1 9.1 - 12.3 fL [facility] Comment:Testing performed by : [address] [address] RBC 4.56 3.90 - 5.20 M/cumm [facility] Comment:Testing performed by : [address] [address] MCV 78.9(L) 81.3 - 96.4 fL [facility] Comment:Testing performed by : [address] [address] MCH 24.8(L) 27.1 - 33.3 pg [facility] Comment:Testing performed by : [address] [address] MCHC 31.4(L) 32.3 - 35.7 g/dL [facility] Comment:Testing performed by : [address] [address] RDW CV 15.2(H) 11.1 - 14.9 % [facility] Comment:Testing performed by : [address] [address] RDW SD 43.6 35.7 - 48.1 fL [facility] Comment:Testing performed by : [address] [address] NRBC abs 0.03(H) 0.00 - 0.01 K/cumm [facility] Comment:Testing performed by : [address] [address] Blood 09/28/2024 8:10 PM CDT 09/28/2024 8:11 PM CDT us Simran Frank MD LAB BLOOD ORDERABLES Ruthy trivedi Result [facility] [address] [facility] Department [place] [address] * (ABNORMAL) Comprehensive metabolic panel (09/28/2024 8:10 PM CDT) [facility] Sodium 142 135 - 145 mmol/L Comment:Testing performed by : [facility], [address] [place] [address]., [address] Potassium, pl 3.2(L) 3.3 - 4.9 mmol/L [facility] Comment:Testing performed by : [address], [place]., [address] Chloride 103 97 - 110 mmol/L [facility] Comment:Testing performed by : [address], [place]., [address] CO2 23 22 - 32 mmol/L [facility] Comment:Testing performed by : [address], [place]., [address] Anion gap 16(H) 2 - 15 mmol/L [facility] Comment:Testing performed by : [address], [place]., [address] BUN 18 6 - 25 mg/dL [facility] Comment:Testing performed by : [address], [place]., [address] Creatinine 0.80 0.60 - 1.10 mg/dL [facility] Comment:Testing performed by : [address] [address] Glucose 108 70 - 199 mg/dL [facility] Comment: Interpretive Data Fasting glucose [...] last revised 2022. Testing performed by: [address] [address] Calcium 10.0 8.5 - 10.3 mg/dL [facility] Comment:Testing performed by : [address], [place]., [address] Bilirubin, total <0.2 0.1 - 1.2 mg/dL [facility] Comment:Testing performed by : [address] [address] Protein, pl 7.4 6.5 - 8.5 g/dL [facility] Comment:Testing performed by : [address] [address] Albumin 4.4 3.5 - 5.0 g/dL [facility] Comment:Testing performed by : [address] [address] Alk phos 77 40 - 130 Units/L [facility] Comment:Testing performed by : [address] [address] ALT 28 7 - 45 Units/L [facility] Comment:Testing performed by : [address] [address] AST 22 10 - 45 Units/L [facility] Comment:Testing performed by : [address] [address] Blood 09/28/2024 8:10 PM CDT 09/28/2024 8:12 PM CDT us Simran Frank MD LAB BLOOD ORDERABLES Ruthy trivedi Result [facility] [address] [facility] Department [place] [address] * ECG 12 lead (09/28/2024 8:02 PM CDT) Ventricular Rate EKG/Min 151 BPM [facility] Atrial Rate 151 BPM [facility] [place]-Interval (MSEC) 104 ms [facility] QRS-Interval (MSEC) 90 ms [facility] QT-Interval (MSEC) 336 ms [facility] QTc 532 ms [facility] P [place] 37 degrees [facility] R [place] 40 degrees [facility] T [place] 53 degrees [facility] Diagnosis Sinus tachycardia with short [place] RSR' or QR pattern in V1 suggests right ventricular conduction delay Abnormal ECG When compared with ECG of 23-SEP-2024 16:46, No significant change Confirmed by BELIA CHU M.D. ([id number]) on 09/29/2024 11:02:24 PM [facility] 09/28/2024 8:02 PM CDT 09/29/2024 11:02 PM CDT us Simran Frank MD ECG ORDERABLES Final Res ult Performing Organization Address City/[facility]/ZIP Co de Phone Number [facility] * eGFR (09/27/2024 2:58 [...] reviewed 2021. Testing performed by: [facility], [address] [place] [address]., [address] Blood 09/27/2024 2:58 AM CDT 09/27/2024 3:03 AM CDT us Ferdinand Rivera DO LAB BLOOD ORDERABLES Final Res ult Performing Organization Address City/[facility]/ZIP Co de Phone Number [facility] [address] [facility] Department [place] [address] * (ABNORMAL) Differential, auto (09/27/2024 2:58 AM CDT) Neutrophil abs 13.2(H) 1.5 - 6.5 [facility] Comment:Testing performed by : [facility], [address] [place] [address], [place]., [address] Imm gran abs 0.1 0.0 - 0.1 K/cumm [facility] Comment:Testing performed by : [facility], [address] [place] [address], [place]., [address] Lymphocyte abs 1.7 0.8 - 3.3 K/cumm [facility] Comment:Testing performed by : [address], [place]., [address] Monocyte abs 1.0(H) 0.2 - 0.8 K/cumm [facility] Comment:Testing performed by : [address], [place]., [address] Eosinophil abs 0.0 0.0 - 0.5 K/cumm [facility] Comment:Testing performed by : [address] [address] Basophil abs 0.0 0.0 - 0.1 K/cumm [facility] Comment:Testing performed by : [address] [address] Neutrophil pct 82.5 % [facility] Comment: Interpretive Data Percent cell count reference ranges are not reported, since discordance with absolute values may lead to misinterpretation of CBC data. Current Interpretive Data was last revised on 2017. Testing performed by: [address] [address] Imm gran pct 0.8 % [facility] Comment: Interpretive Data Percent cell count reference ranges are not reported, since discordance with absolute values may lead to misinterpretation of CBC data. Current Interpretive Data was last revised on 2017. Testing performed by: [address] [address] Lymphocyte pct 10.4 % [facility] Comment: Interpretive Data Percent cell count reference ranges are not reported, since discordance with absolute values may lead to misinterpretation of CBC data. Current Interpretive Data was last revised on 2017. Testing performed by: [address] [address] Monocyte pct 6.2 % [facility] Comment: Interpretive Data Percent cell count reference ranges are not reported, since discordance with absolute values may lead to misinterpretation of CBC data. Current Interpretive Data was last revised on 2017. Testing performed by: [address] [address] Eosinophil pct 0.0 % [facility] Comment: Interpretive Data Percent cell count reference ranges are not reported, since discordance with absolute values may lead to misinterpretation of CBC data. Current Interpretive Data was last revised on 2017. Testing performed by: [address] [address] Basophil pct 0.1 % [facility] Comment: Interpretive Data Percent cell count reference ranges are not reported, since discordance with absolute values may lead to misinterpretation of CBC data. Current Interpretive Data was last revised on 2017. Testing performed by: [address] [address] Blood 09/27/2024 2:58 AM CDT 09/27/2024 3:03 AM CDT us Ferdinand Rivera DO LAB BLOOD ORDERABLES Final Res ult [facility] [address] [facility] Department [place] [address] * (ABNORMAL) CBC with auto differential (09/27/2024 2:58 AM CDT) WBC 15.9(H) 3.8 - 9.9 [facility] Comment:Testing performed by : [address] [address] Hgb 11.3(L) 11.9 - 15.5 g/dL [facility] Comment:Testing performed by : [address] [address] Hct 36.7 35.6 - 45.5 % [facility] Comment:Testing performed by : [address] [address] Plt 532(H) 150 - 400 K/cumm [facility] Comment:Testing performed by : [address] [address] MPV 9.2 9.1 - 12.3 fL [facility] Comment:Testing performed by : [address] [address] RBC 4.50 3.90 - 5.20 M/cumm [facility] Comment:Testing performed by : [address] [address] MCV 81.6 81.3 - 96.4 fL [facility] Comment:Testing performed by : [address] [address] MCH 25.1(L) 27.1 - 33.3 pg [facility] Comment:Testing performed by : [address] [address] MCHC 30.8(L) 32.3 - 35.7 g/dL [facility] Comment:Testing performed by : [address] [address] RDW CV 15.4(H) 11.1 - 14.9 % [facility] Comment:Testing performed by : [address] [address] RDW SD 45.1 35.7 - 48.1 fL [facility] Comment:Testing performed by : [address] [address] NRBC abs 0.00 0.00 - 0.01 K/cumm [facility] Comment:Testing performed by : [address] [address] Blood 09/27/2024 2:58 AM CDT 09/27/2024 3:03 AM CDT us Ferdinand Rivear DO LAB BLOOD ORDERABLES Final Res ult [facility] [address] [facility] Department [place] [address] * Comprehensive metabolic panel (09/27/2024 2:58 AM CDT) Sodium 140 135 - 145 mmol/L Comment:Testing performed by : [address] [place]., [address] Potassium, pl 3.8 3.3 - 4.9 mmol/L [facility] Comment:Testing performed by : [address] [address] Chloride 103 97 - 110 mmol/L [facility] Comment:Testing performed by : [address], [place]., [address] CO2 23 22 - 32 mmol/L [facility] Comment:Testing performed by : [address] [address] Anion gap 14 2 - 15 mmol/L [facility] Comment:Testing performed by : [address] [address] BUN 11 6 - 25 mg/dL [facility] Comment:Testing performed by : [address], [place]., [address] Creatinine 0.66 0.60 - 1.10 mg/dL [facility] Comment:Testing performed by : [address] [address] Glucose 154 70 - 199 mg/dL [facility] Comment: Interpretive Data Fasting glucose >/= [...] last revised 2022. Testing performed by: [address] [address] Calcium 10.3 8.5 - 10.3 mg/dL [facility] Comment:Testing performed by : [address] [address] Bilirubin, total <0.2 0.1 - 1.2 mg/dL [facility] Comment:Testing performed by : [address] [address] Protein, pl 7.8 6.5 - 8.5 g/dL [facility] Comment:Testing performed by : [address] [address] Albumin 4.5 3.5 - 5.0 g/dL [facility] Comment:Testing performed by : [address] [address] Alk phos 85 40 - 130 Units/L [facility] Comment:Testing performed by : [address], [address] ALT 25 7 - 45 Units/L [facility] Comment:Testing performed by : [address] [address] AST 15 10 - 45 Units/L [facility] Comment:Testing performed by : [address] [address] Blood 09/27/2024 2:58 AM CDT 09/27/2024 3:03 AM CDT Ferdinand Rivera DO LAB BLOOD ORDERABLES Final Res ult [facility] [address] [facility] Department [place] [address] * eGFR (09/24/2024 3:43 AM [...] was last reviewed 2021. Testing performed by: [address] [address] Blood 09/24/2024 3:43 AM CDT 09/24/2024 4:47 AM CDT us Dariela Cortez NP LAB BLOOD ORDERABLES Final R esult [facility] [address] [facility] Department [place] [address] * (ABNORMAL) Differential, auto (09/24/2024 3:43 AM CDT) Neutrophil abs 9.1(H) 1.5 - 6.5 [facility] Comment:Testing performed by : [address] [address] Imm gran abs 0.0 0.0 - 0.1 K/cumm [facility] Comment:Testing performed by : [address] [address] Lymphocyte abs 0.7(L) 0.8 - 3.3 K/cumm [facility] Comment:Testing performed by : [address] [address] Monocyte abs 0.3 0.2 - 0.8 K/cumm [facility] Comment:Testing performed by : [address] [address] Eosinophil abs 0.0 0.0 - 0.5 K/cumm [facility] Comment:Testing performed by : [address] [address] Basophil abs 0.0 0.0 - 0.1 K/cumm [facility] Comment:Testing performed by : [address] [address] Neutrophil pct 89.5 % [facility] Comment: Interpretive Data Percent cell count reference ranges are not reported, since discordance with absolute values may lead to misinterpretation of CBC data. Current Interpretive Data was last revised on 2017. Testing performed by: [address] [address] Imm gran pct 0.3 % [facility] Comment: Interpretive Data Percent cell count reference ranges are not reported, since discordance with absolute values may lead to misinterpretation of CBC data. Current Interpretive Data was last revised on 2017. Testing performed by: [address] [address] Lymphocyte pct 6.9 % [facility] Comment: Interpretive Data Percent cell count reference ranges are not reported, since discordance with absolute values may lead to misinterpretation of CBC data. Current Interpretive Data was last revised on 2017. Testing performed by: [address] [address] Monocyte pct 3.1 % [facility] Comment: Interpretive Data Percent cell count reference ranges are not reported, since discordance with absolute values may lead to misinterpretation of CBC data. Current Interpretive Data was last revised on 2017. Testing performed by: [address] [address] Eosinophil pct 0.0 % [facility] Comment: Interpretive Data Percent cell count reference ranges are not reported, since discordance with absolute values may lead to misinterpretation of CBC data. Current Interpretive Data was last revised on 2017. Testing performed by: [address] [address] Basophil pct 0.2 % [facility] Comment: Interpretive Data Percent cell count reference ranges are not reported, since discordance with absolute values may lead to misinterpretation of CBC data. Current Interpretive Data was last revised on 2017. Testing performed by: [address] [address] Blood 09/24/2024 3:43 AM CDT 09/24/2024 4:50 AM CDT us Dariela Cortez NP LAB BLOOD ORDERABLES Final R esult [facility] [address] [facility] Department [place] [address] * (ABNORMAL) CBC with auto differential (09/24/2024 3:43 AM CDT) [facility] WBC 10.2(H) 3.8 - 9.9 K/cumm Comment:Testing performed by : [address] [address] Hgb 10.5(L) 11.9 - 15.5 g/dL [facility] Comment:Testing performed by : [address], [address] Hct 34.2(L) 35.6 - 45.5 % [facility] Comment:Testing performed by : [address], [address] Plt 418(H) 150 - 400 K/cumm [facility] Comment:Testing performed by : [address], [address] MPV 9.7 9.1 - 12.3 fL [facility] Comment:Testing performed by : [address], [address] RBC 4.17 3.90 - 5.20 M/cumm [facility] Comment:Testing performed by : [address], [address] MCV 82.0 81.3 - 96.4 fL [facility] Comment:Testing performed by : [address], [address] MCH 25.2(L) 27.1 - 33.3 pg [facility] Comment:Testing performed by : [address], [address] MCHC 30.7(L) 32.3 - 35.7 g/dL [facility] Comment:Testing performed by : [address], [address] RDW CV 15.6(H) 11.1 - 14.9 % [facility] Comment:Testing performed by : [address] [address] RDW SD 46.4 35.7 - 48.1 fL [facility] Comment:Testing performed by : [address], [address] NRBC abs 0.00 0.00 - 0.01 K/cumm [facility] Comment:Testing performed by : [address] [address] Blood 09/24/2024 3:43 AM CDT 09/24/2024 4:50 AM CDT Dariela Cortez SUPER[employer]OR [employer] LAB BLOOD ORDERABLES Final R esult [facility] [address] [facility] Department [place] [address] * (ABNORMAL) Basic metabolic panel (09/24/2024 3:43 AM CDT) Sodium 138 135 - 145 mmol/L Comment:Testing performed by : [address] [address] Potassium, pl 4.2 3.3 - 4.9 mmol/L [facility] Comment:Testing performed by : [address] [address] Chloride 107 97 - 110 mmol/L [facility] Comment:Testing performed by : [address] [address] CO2 21(L) 22 - 32 mmol/L [facility] Comment:Testing performed by : [address] [address] Anion gap 10 2 - 15 mmol/L [facility] Comment:Testing performed by : [address] [address] BUN 10 6 - 25 mg/dL [facility] Comment:Testing performed by : [address] [address] Creatinine 0.71 0.60 - 1.10 mg/dL [facility] Comment:Testing performed by : [address] [address] Glucose 145 70 - 199 mg/dL [facility] [...] revised 2022. Testing performed by: [facility], [address] [place] [address]., [address] Calcium 9.7 8.5 - 10.3 mg/dL [facility] [place]S Comment:Testing performed by : [facility], [address] [place] [address]., [address] Blood 09/24/2024 3:43 AM CDT 09/24/2024 4:47 AM CDT us Dariela Cortez NP LAB BLOOD ORDERABLES Final R esult Performing Organization Address City/State/[facility] Co de Phone Number [facility] [address] [facility] Department [place] [address] * XR Mandible 4 or More Views [...] Arnold Chahal M.D. KH: GLADYS Report ID: [id number] Reading Location: [id number] Procedure Note Arnold Chahal MD - 09/23/2024 [...] Arnold Chahal M.D. KH: GLADYS Report ID: [id number] Reading Location: [place] [address] Darian Goode MD IMG XR PROCEDURES Fi [...] signed by Arnold GRAHAM: GLADYS Report ID: [id number] Reading Location: [id number] Procedure Note Arnold Chahal MD - 09/23/2024 [...] signed by Arnold GRAHAM: GLADYS Report ID: [id number] Reading Location: [id number] us Jorje Huynh MD IMG XR PROCEDURES [...] 09/23/2024 5:16 PM - Electronically signed by óLpez Mcclellan M.D. MM: MM Report ID: [id number] Reading Location: [id number] Procedure Note López Mcclellan MD - 09/23/2024 [...] López Mcclellan M.D. MM: MM Report ID: [id number] Reading Location: [id number] Samuel Bowen MD IMG XR PROCEDURES F inal Result * ECG 12 lead (09/23/2024 4:46 PM CDT) Ventricular Rate EKG/Min 146 BPM [facility] Atrial Rate 292 BPM [facility] QRS-Interval (MSEC) 98 ms [facility] QT-Interval (MSEC) 350 ms [facility] QTc 545 ms [facility] R Victoria 58 degrees [facility] T Victoria 50 degrees [facility] Diagnosis Sinus tachycardia Incomplete right bundle branch block T-wave changes When compared with ECG of 01-SEP-2024 13:54, No significant change Confirmed by SULTAN ZUNIGA M.D. ([id number]) on 09/23/2024 9:49:04 PM [facility] 09/23/2024 4:46 PM CDT 09/23/2024 9:49 PM CDT Samuel Bowen MD ECG ORDERABLES Fin al Result [facility] * eGFR (09/23/2024 4:27 PM CDT) eGFR [...] was last reviewed 2021. Testing performed by: [address] [address] Blood 09/23/2024 4:27 PM CDT 09/23/2024 4:39 PM CDT Deisy MARQUEZ LAB BLOOD ORDERABLES Final Resu lt [facility] [address] [facility] Department of Laboratories [place], [place] [id number] * (ABNORMAL) Differential, auto (09/23/2024 4:27 PM CDT) Neutrophil abs 7.2(H) 1.5 - 6.5 K/cumm Comment:Testing performed by : [address] [address] Imm gran abs 0.0 0.0 - 0.1 K/cumm [facility] Comment:Testing performed by : [address] [address] Lymphocyte abs 2.4 0.8 - 3.3 K/cumm [facility] Comment:Testing performed by : [address] [address] Monocyte abs 0.8 0.2 - 0.8 K/cumm [facility] Comment:Testing performed by : [address] [address] Eosinophil abs 0.1 0.0 - 0.5 K/cumm [facility] Comment:Testing performed by : [address] [address] Basophil abs 0.1 0.0 - 0.1 K/cumm [facility] Comment:Testing performed by : [address] [address] Neutrophil pct 68.6 % [facility] Comment: Interpretive Data Percent cell count reference ranges are not reported, since discordance with absolute values may lead to misinterpretation of CBC data. Current Interpretive Data was last revised on 2017. Testing performed by: [address] [address] Imm gran pct 0.4 % [facility] Comment: Interpretive Data Percent cell count reference ranges are not reported, since discordance with absolute values may lead to misinterpretation of CBC data. Current Interpretive Data was last revised on 2017. Testing performed by: [address] [address] Lymphocyte pct 22.5 % [facility] Comment: Interpretive Data Percent cell count reference ranges are not reported, since discordance with absolute values may lead to misinterpretation of CBC data. Current Interpretive Data was last revised on 2017. Testing performed by: [address] [address] Monocyte pct 7.1 % [facility] Comment: Interpretive Data Percent cell count reference ranges are not reported, since discordance with absolute values may lead to misinterpretation of CBC data. Current Interpretive Data was last revised on 2017. Testing performed by: [address] [address] Eosinophil pct 0.7 % [facility] Comment: Interpretive Data Percent cell count reference ranges are not reported, since discordance with absolute values may lead to misinterpretation of CBC data. Current Interpretive Data was last revised on 2017. Testing performed by: [address] [address] Basophil pct 0.7 % [facility] Comment: Interpretive Data Percent cell count reference ranges are not reported, since discordance with absolute values may lead to misinterpretation of CBC data. Current Interpretive Data was last revised on 2017. Testing performed by: [address] [address] Blood 09/23/2024 4:27 PM CDT 09/23/2024 4:39 PM CDT us Samuel Bowen MD LAB BLOOD ORDERABLE S Final Result [facility] [address] Department [place] [address] * (ABNORMAL) CBC with auto differential (09/23/2024 4:27 PM CDT) [facility] WBC 10.5(H) 3.8 - 9.9 K/cumm Comment:Testing performed by : [address] [address] Hgb 11.9 11.9 - 15.5 g/dL [facility] Comment:Testing performed by : [address], [address] Hct 40.4 35.6 - 45.5 % [facility] Comment:Testing performed by : [address], [address] Plt 517(H) 150 - 400 K/cumm [facility] Comment:Testing performed by : [address], [address] MPV 9.3 9.1 - 12.3 fL [facility] Comment:Testing performed by : [address], [address] RBC 4.93 3.90 - 5.20 M/cumm [facility] Comment:Testing performed by : [address] [address] MCV 81.9 81.3 - 96.4 fL [facility] Comment:Testing performed by : [address] [address] MCH 24.1(L) 27.1 - 33.3 pg [facility] Comment:Testing performed by : [address] [address] MCHC 29.5(L) 32.3 - 35.7 g/dL [facility] Comment:Testing performed by : [address] [address] RDW CV 15.6(H) 11.1 - 14.9 % [facility] Comment:Testing performed by : [address], [address] RDW SD 46.5 35.7 - 48.1 fL [facility] Comment:Testing performed by : [address] [address] NRBC abs 0.00 0.00 - 0.01 K/cumm [facility] Comment:Testing performed by : [address] [address] Blood 09/23/2024 4:27 PM CDT 09/23/2024 4:39 PM CDT us Samuel Bowen MD LAB BLOOD ORDERABLE S Final Result [facility] [address] [facility] Department [place] [address] * Comprehensive metabolic panel (09/23/2024 4:27 PM CDT) Sodium 141 135 - 145 mmol/L Comment:Testing performed by : [address] [address] Potassium, pl 3.3 3.3 - 4.9 mmol/L [facility] Comment:Testing performed by : [address] [address] Chloride 104 97 - 110 mmol/L [facility] Comment:Testing performed by : [address] [address] CO2 22 22 - 32 mmol/L [facility] Comment:Testing performed by : [address] [address] Anion gap 15 2 - 15 mmol/L [facility] Comment:Testing performed by : [address] [address] BUN 11 6 - 25 mg/dL [facility] Comment:Testing performed by : [address] [address] Creatinine 0.89 0.60 - 1.10 mg/dL [facility] Comment:Testing performed by : [address] [address] Glucose 153 70 - 199 mg/dL [facility] [...] last revised 2022. Testing performed by: [address] [address] Calcium 9.9 8.5 - 10.3 mg/dL [facility] Comment:Testing performed by : [address] [address] Bilirubin, total <0.2 0.1 - 1.2 mg/dL [facility] Comment:Testing performed by : [address] [address] Protein, pl 8.0 6.5 - 8.5 g/dL [facility] Comment:Testing performed by : [address] [address] Albumin 4.6 3.5 - 5.0 g/dL [facility] Comment:Testing performed by : [address] [address] Alk phos 84 40 - 130 Units/L [facility] Comment:Testing performed by : [address] [address] ALT 42 7 - 45 Units/L [facility] Comment:Testing performed by : [address] [address] AST 27 10 - 45 Units/L [facility] Comment:Testing performed by : [address] [address] Blood 09/23/2024 4:27 PM CDT 09/23/2024 4:39 PM CDT us Samuel Bowen MD LAB BLOOD ORDERABLE S Final Result [facility] [address] [facility] Department [place] [address] from Last 3 Months Insurance [facility] CHOICE [employer]US [place] [id number] [facility] CHOICE [employer]US [place] [id number] Advance Directives For more information, please contact: [phone] * Full Code (Latest Code Status on File) Date Activated Date Inactivated Comments 09/23/2024 7:38 PM 09/24/2024 5:41 PM * Full Code Date Activated Date Inactivated Comments 09/01/2024 7:30 PM 09/05/2024 3:39 PM * Full Code Date Activated Date Inactivated Comments 08/19/2024 9:45 PM 08/22/2024 5:15 PM Care Teams Ditch Cleaner Relationship Specialty Start Date End Date Shannan Maldonado MD PCP - General 09/07/19
--- OUTSIDE RECORDS SUMMARY | 2024-12-11 06:52 | XMS_ITS | Encounter Summary ---
Author Organization [facility] Address [address] [place] [address] Phone Care Team Providers Care Decal Applier Name Role Phone Shannan Maldonado MD Primary Care Provider [phone] Encounter Details Date Type Department Care Team [...] on file Legal Sex Female 1:34 AM NATURAL RESOURCE OFFICER Gender Identity Female 07/01/2022 7:31 PM NATURAL RESOURCE OFFICER Sexual Orientation Not on file documented as of this encounter Plan of Treatment Not on file documented as of this encounter Procedures Procedure Name Priority Date/Time Associated Diagnosis Comments SCAN - LABS 10/28/2021 documented in this encounter Results * SCAN - LABS (10/28/2021) us Provider Scanning Final Result documented in this encounter Visit Diagnoses Not on filedocumented in this encounter Care Teams Decal Applier Relationship Specialty Start Date End Date Shannan Maldonado MD PCP - General 09/07/19 documented as of this encounter
--- OUTSIDE RECORDS SUMMARY | 2024-12-11 06:52 | XMS_ITS | Clinical Summary ---
Author Organization [facility] [employer] Address [address] [place] [address] Care Team Providers Care Human Resources Benefits Manager Name Role Phone Shannan Maldonado MD Primary Care Provider [phone] Source Comments [facility] [employer] [employer],[facility] and Associated Physician Practices is amultiple site organization consisting of ambulatory clinics and hospital sitesin [place], [place], [place] and [place]. This disclosure is being madepursuant to the Care Everywhere program and may not contain all information available regarding this patient. Last updated 18.[facility] [employer] [employer] Allergies Active Allergy Reactions Criticality Noted Date [...] fluticasone propionate (FLONASE) 50 MCG/ACT nasal spray Perdido 2 sprays into each nostril once daily [...] tablet by mouth as needed Active Multiple Vitamins-Crime Scene Investigator als (CENTRUM PO) Take 1 tablet by [...] 06/13/2019 Assessment & Plan (06/13/2019 10:22 AM SENIOR BEHAVIORAL SCIENTIST): POTS patients commonly have mast cell disorders. [...] 2015 Assessment & Plan (06/13/2019 10:19 AM SENIOR BEHAVIORAL SCIENTIST): Would avoid high osmotic salt loads/salt tablets. Ok to just liberalize salt intake and eat banannas for potassium Postural orthostatic tachycardia syndrome 2015 Assessment & Plan (09/05/2019 10:06 AM SENIOR BEHAVIORAL SCIENTIST): Her symptoms are well-controlled today. She dislocated [...] intake. Assessment & Plan (06/13/2019 10:47 AM SENIOR BEHAVIORAL SCIENTIST): Postural orthostatic tachycardia syndrome (POTS) is a [...] 05/21/2010 Assessment & Plan (09/05/2019 10:07 AM SENIOR BEHAVIORAL SCIENTIST): She had a routine screening echo today. Her aortic root today does not appear dilated by my view. Will await final read and call her if this is abnormal. Otherwise, q2yr echo. Assessment & Plan (06/13/2019 10:18 AM SENIOR BEHAVIORAL SCIENTIST): The patient was diagnosed with EDS several years ago and has not had an echocardiogram in 2 years # will need screening echocardiogram for aorta # low intensity exercise Encounters Date Type Department Care Team Description 11/08/2024 3:40 PM CDT Office Visit [facility] - Cardiology [address] [phone] Javed Julio MD Postural orthostatic tachycardia syndrome [...] [facility] - Echosonography [address] [phone] 02/07/2025 1:00 PM CDT Office Visit [facility] - Cardiology [address] [phone] Javed Julio MD [address] [place] [phone] Health Maintenance Due Date Last Done Comments [...] (Bezet) 496 ms [facility] Calculated P [place] 51 degrees [facility] Calculated R [place] 38 degrees SL [facility] Calculated T [place] 37 degrees SL [facility] Interpretation EKG SINUS TACHYCARDIA OTHERWISE NORMAL ECG WHEN COMPARED WITH ECG OF 28-FEB-2019 17:25, SINUS RATE HAS SLOWED Confirmed by fellow NERI RAMIREZ MD ([id number]) on 11/12/2024 4:29:46 PM Confirmed by SILAS RAZO MD ([id number]) on 11/12/2024 9:50:00 PM [facility] 11/08/2024 3:23 PM CDT 11/12/2024 9:50 PM CDT us Javed Julio MD ECG ORDERABLES Edited Result - Final MICKUCASHARONDA AVENDANO * HIV-1 HIV-2 ANTIGEN/ANTIBODY (02/28/2019 1:57 PM CDT) HIV Antigen/Antibod y 1 & 2 Non-reacti ve Non-react hayder 02/28/2019 4:05 PM CDT [facility] Comment: Neither HIV-1 p24 Antigen nor HIV-1/HIV-2 Antibodies are detected. Blood BLOOD SPECIMEN / Unknown Venipuncture / Unknown 02/28/2019 1:57 PM CDT 02/28/2019 3:22 PM CDT Abel Barrientos MD LAB - HEMATOLOGY ORDERABLES Final Result [address] [phone] from Last 3 Months or Most Recently [...] 8:46 PM 02/28/2019 11:41 PM Care Teams Human Resources Benefits Manager Relationship Specialty Start Date End Date Shannan Maldonado MD [address] [place] [address] PCP - General Family Medicine 03/22/16
--- OUTSIDE RECORDS SUMMARY | 2024-12-11 06:52 | XMS_ITS | Patient Health Record ---
Author Organization [facility] [place] ([address]) Address [address] [place] [address] Care Team Providers Care Transmission Repairer Name Role Phone JoelShannan Primary Care Provider UnavailRomy Razo Unavailable [phone] Megan Alvarado Unavailable [phone] [employer], Provider Unavailable Unavailab le Allergies Allergen [...] as directed orally once a day Active diazePAM 5 MG 1 tab(s) orally every 8 hours Active Famotidine 40 MG 1 tab(s) orally 2 times a day for 90 days Active Auvi-Q 0.3 MG/0.3ML as directed intramuscularly once for 1 day Active ZYRTEC 10 mg 1 tab(s) orally once a day for 30 days Active AUVI-Q 0.3 mg as directed intramuscularly once for 1 day Active Flonase Allergy Relief 50 MCG/ACT 1 spray(s) intranasally once a day for 30 day(s) Not-Taking predniSONE 20 MG 3 tablets once a day for 3 days, 2 tablets once a day for 3 days, 1 tablet once a day for 3 days Orally Once a day for 9 days Not-Taking predniSONE 20 mg 1 tab(s) orally once a day for bronchitis Not-Taking Prochlorperazine Maleate 10 MG 1 tab(s) orally every 6 hours 10/11/2023 Active Prochlorperazine Maleate 10 MG Oral for 22 Days Active Cyclobenzaprine HCl 10 MG 1 tab(s) orally 3 times a day Active Reglan 10 MG 1 tab(s) orally Qday, PRN Active Immunizations Vaccine Route Administration Date Status [...] W/U Status Risk Notes Problem Idiopathic urticaria (59989981) Idiopathic urticaria (L50.1) Active confirmed Problem Anemia (990959373) Anemia, unspecified (D64.9) Active confirmed Problem Chronic allergic conjunctivitis (61476397) Other chronic allergic conjunctivitis (H10.45) Active confirmed Problem Allergic rhinitis caused by pollen (disorder) (81864241) Allergic rhinitis due to pollen (J30.1) Active confirmed Problem Allergic rhinitis (30708723) Other allergic rhinitis (J30.89) Active confirmed Problem Chronic sinusitis (44185309) Chronic sinusitis, unspecified (J32.9) Active confirmed Problem Mild intermittent asthma (274232786) Mild intermittent asthma, uncomplicated (J45.20) Active confirmed Problem Recurrent oral aphthae (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) Active confirmed Problem Angioneurotic edema (84463810) Angioneurotic edema, subsequent encounter (T78.3XXD) Active confirmed Problem Allergy status t o narcotic agent status (Z88.5) Active confirmed Problem Food allergy (516785538) Allergy to other foods (Z91.018) Active confirmed Problem Allergic rhinitis caused by animal hair and dander (425789509821353) Allergic rhinitis due to animal (cat) (dog) hair and dander (J30.81) Active confirmed Problem Angioneurotic edema (68838274) Angioneurotic edema, initial encounter (T78.3XXA) Active confirmed Problem Urticaria (448103637) Other Urticaria (L50.8) Active confirmed Vital Signs Oximetry 97 % 11/27/2024 Blood pressure diastolic 86 mm Hg 11/27/2024 Height 67 in 11/27/2024 Blood pressure systolic 123 mm Hg 11/27/2024 Weight 211.8 lbs 11/13/2024 BMI 33.17 kg/m2 11/13/2024 Encounters Encounter Location Date Provider Diagnosis [address] [address] 12/16/2023 Provider [facility]Migration [facility] [address] [place], [place] [address] [address] [address] 12/20/2023 Romy Dinesh Other Urticaria L50. 8 [facility] [address] [place] [address] [address] [address] 01/03/2024 Romy Dinesh Other Urticaria L50. [address] [address] 01/17/2024 Romy Dinesh Other Urticaria L50. [address] [place] [address] [place] [address] 01/31/2024 Romy Dinesh Other Urticaria L50. 8 [facility] [address] [place], [place] [address] [address] [place] [address] 02/14/2024 Romy Dinesh Other Urticaria L50. 8 [facility] [address] [place] [address] [place] [address] 02/28/2024 Romy Dinesh Other Urticaria L50. 8 [facility] [address] [place], [place] [address] [address] [place] [address] 03/13/2024 Romy Dinesh Other Urticaria L50. 8 [address] [place] [address] 03/27/2024 Romy Dinesh Other Urticaria L50. 8 [facility] [address] [place] [address] 04/10/2024 Romy Dinesh Other Urticaria L50. [address] [place] [address] [address] 04/24/2024 Romy Dinesh Other Urticaria L50. [address] [address] 05/08/2024 Romy Dinesh Other Urticaria L50. [address] [address] 05/22/2024 Romy Dinesh Idiopathic urticaria L50.1 ; [...] asthma, uncomplicated J45.20 [facility] [address] [place] [address] 06/05/2024 Romy Dinesh Other Urticaria L50. 8 [facility] [address] [place] [address] [address] [place] [address] 06/19/2024 Romy Dinesh Other Urticaria L50. 8 [facility] [address] [place] [address] [place] [address] 07/10/2024 Romy Dinesh Other Urticaria L50. [address] [place] [address] 07/24/2024 Romy Dinesh Other Urticaria L50. [address] [place] [address] [place] [address] 08/07/2024 Romy Montiel Other Urticaria L50. 8 [facility] [address] [place] [address] 08/27/2024 Romy Montiel Idiopathic urticaria L50.1 ; [...] Z88.5 and Mild intermittent asthma, uncomplicated J45.[address] [address] 09/11/2024 Romy Montiel Idiopathic urticaria L50.1 ; [...] Z88.5 and Mild intermittent asthma, uncomplicated J45.[address] [address] 10/02/2024 Romy Montiel Idiopathic urticaria L50.1 ; [...] uncomplicated J45.20 and Shortness of breath R06.[address] [address] 10/16/2024 Romy Dinesh Idiopathic urticaria L50.1 ; Angioneurotic [...] asthma, uncomplicated J45.20 [facility] [address] [place] [address] 10/30/2024 Romy Montiel Other Urticaria L50. [address] [address] 11/13/2024 Romy Montiel Idiopathic urticaria L50.1 ; [...] asthma, uncomplicated J45.20 [facility] [address] [place] [address] 11/27/2024 Romy Montiel Other Urticaria L50. [address] [address] 01/10/2024 Romy Dinesh [address] [address] 05/02/2024 Romy Montiel Idiopathic urticaria L50.[address] [address] 05/24/2024 Romy Dinesh [address] [address] 06/19/[address] [facility] [place] [address] [place] [address] 06/25/2024 [facility]iel [facility] [address] [place] [address] 07/31/[address] [facility] [place] [address] [place] [phone] 08/05/[address] [facility] [place] [address] [place] [address] 08/05/2024 Romy Carranzam [facility] [address] [place], [place] [address] [place] [address] 08/21/2024 Romy Montiel [facility] [address] [place] [address] 08/26/2024 Romy Montiel [address] [address] 09/09/2024 Romy Carranzam [address] [address] 09/17/2024 Romy Montiel [address] [address] 10/01/2024 Romy Montiel [address] [address] 10/01/2024 Romy Montiel [address] [address] 11/20/2024 Romy Montiel Assessments Encounter Date Diagnosis (ICD Code) Assessment Notes Treatment Notes Treatment Clinical Notes Section Notes 12/20/2023 Other Urticaria (ICD-10 - L50.8) 01/03/2024 [...] from Dr. Suarez. Needs to f/u with Health Services Information Specialist or PCP due to fainting episodes 06/05/2024 [...] I discussed treatment plans with Dr. Suarez's UNBUNDLER. We discussed cyclosporine or Dupixent when it [...] and stop completely if no further flares. 11/27/2024 Other Urticaria (ICD-10 - L50.8) 11/13/2024 Chronic sinusitis, unspecified (ICD-10 - J32.9) [...] R06.02) responded well to albuterol 08/21/2024 Other 12/11/2024 Other 12/20/2023 Other 01/03/2024 Other 01/17/2024 Other 01/31/2024 Other 02/14/2024 Other 02/28/2024 Other 03/13/2024 Other 03/27/2024 Other 04/10/2024 Other 04/24/2024 Other 05/08/2024 Other 05/22/2024 Other 06/05/2024 Other 06/19/2024 Other 07/10/2024 Other 07/24/2024 Other 08/07/2024 Other 08/27/2024 Other 09/11/2024 Other 10/02/2024 Other 10/16/2024 Other 10/30/2024 Other 11/13/2024 Other 11/27/2024 Other Plan Of Treatment Pending Test Test Name Order Date -CBC With Differential/Platelet 02/12/20 N METHYLHISTAMINE, URINE 02/25/2020 STREPTOCOCCUS PNEUMONIAE IGG AB (23 SERO TYPES) 02/25/2020 5-HIAA, 24-HOUR URINE 12/15/2021 ALPHA GAL PANEL 12/15/2021 PROSTAGLANDIN D2 (PG D2), URINE 12/16/19 LEUKOTRIENE E4, URINE 12/15/2021 LEUKOTRIENE E4, URINE 10/26/2022 LEUKOTRIENE E4, URINE 02/25/2020 -IgE Peanut w/Component Profile 10/29/19 Next Appt Details Provider Name:Romy archer, 12/11/2024 09:00:00 AM, [address] [place], [address], Provider Name:Romy archer, 12/25/2024 09:00:00 AM, [address] [facility], [address], [place], [address], Insurance Providers Payer Name Payer Address Payer Phone Subscriber Number Group Number Insured Name Patient Relationship to Insured Coverage Start Date Coverage End Date [employer] [address] [place], [place] [address] [id number] Anson Koenig Spouse - patient is the spouse of the insured 4 [facility] [employer] [address] [address] [place] [address] [id number] Anson Koenig Spouse - patient is the spouse of the insured 5 [employer] [address] [place] [id number] Rosangela Koenig Self - patient is the [...] Surgical History Surgery Date(Month/Year) Muscle Biopsy 10/17/2006 Lyle Teeth Removal 2008 D&C 2008 Medial Patella [...]
--- OUTSIDE RECORDS SUMMARY | 2024-12-11 06:52 | XMS_ITS | Clinical Summary ---
Author Organization [facility] Geena Sue Extdamian nsion Address [address] [facility] [place] [address] Care Team Providers Care Pneumatic Tester Name Role Phone Shannan Maldonado MD Primary Care Provider [phone] Allergies Active Allergy Reactions Criticality Noted Date [...] Team Description 11/21/2024 2:20 PM CDT Therapy [facility] Otolaryngology [address] [facility] [address] [place] [address] Sima Trent SLP Sensation of swollen throat (Primary Dx); Dysphonia 11/21/2024 2:20 PM CDT Office Visit [facility] ENT [address] [facility] [address] [place] [address] Giovana Loaiza MD Sensation of swollen throat 11/19/2024 10:00 AM CDT Office Visit [facility] Allergy and Immunology [address] [facility] [address] [place] [address] Oneyda Vaughan NP Idiopathic urticaria (Primary Dx); Mast cell activation syndrome; SOB (shortness of breath); Allergic reaction, subsequent encounter 10/11/2024 Telephone [facility] Allergy and Immunology [address] [facility] [address] [place] [address] Ame Pulido RN 10/09/2024 10:00 AM CDT Office Visit [facility] Allergy and Immunology [address] [facility] [address] [place] [address] Susan Suarez MD Idiopathic urticaria (Primary Dx); Mast cell activation syndrome; SOB (shortness of breath) 10/07/2024 Telephone [facility] ENT [address] [facility] 11th [place] [address] [place] [address] Umm Aguirre MS 10/03/2024 11:35 AM CDT - 10/03/2024 1:37 PM CDT Emergency [facility] Emergency Department [address] [place] [address] Abhay Velez MD Allergic reaction, initial encounter (Primary Dx) Discharge Disposition: Discharge to home or self care 10/02/2024 Orders Only [facility] Allergy and Immunology [address] [place] [address] [address] [place] [address] Oneyda Vaughan NP Sensation of swollen throat (Primary Dx) 10/02/2024 Orders Only [facility] Allergy and Immunology [address] [place] [address] [address] [place] [address] Oneyda Vaughan NP High risk medication use (Primary Dx) 10/01/2024 Telephone [facility] Infectious Diseases [address] [facility] [address] [place] [address] Cordelia Rudd RMA 09/30/2024 1:00 PM CDT Office Visit [facility] Allergy and Immunology [address] [facility] [address] [place] [address] Oneyda Vaughan NP SOB (shortness of breath) (Primary Dx) 09/30/2024 Telephone [facility] Allergy and Immunology [address] [facility] [address] [place] [address] Ame Pulido RN 09/28/2024 7:55 PM CDT - 09/28/2024 10:39 PM CDT Emergency [facility] Emergency Department [address] [place] [address] Simran Frank MD Allergic reaction, initial encounter (Primary Dx) Discharge Disposition: Discharge to home or self care 09/27/2024 3:49 AM CDT - 09/27/2024 6:10 AM CDT Emergency [facility] Emergency Department [address] [place] [address] Ferdinand Rivera DO Allergic reaction, initial encounter (Primary Dx); Jaw pain Discharge Disposition: Discharge to home or self care 09/23/2024 4:55 PM CDT - 09/24/2024 1:30 PM CDT Hospital Encounter [facility] [address] [place] [address] Samuel Bowen MD Winston, Jared Todd, MD Ali, Md Shahin, MD Allergic reaction, initial encounter (Primary Dx) Discharge Disposition: Discharge to home or self care from Last 3 Months Surgical History Surgery Date Site/Laterality Comments NM BIOPSY MUSCLE SUPERFICIAL Biopsy Muscle - 2006 (Added by TW Conv) KNEE SURGERY Knee Surgery - ligament reconstruction 10/2009 (Added by TW Conv) NM RELEASE TARSAL TUNNEL Decompression Tarsal Tunnel Release Left Foot - (Added by TW Conv) NM TONSILLECTOMY PRIMARY/SECONDARY <AGE 12 Tonsillectomy - (Added by TW Conv) WISDOM TOOTH EXTRACTION Oral Surgery Tooth Extraction [place] Tooth - (Added by TW Conv) NM COLONOSCOPY FLX DX W/LEX J SPEC WHEN PFRMD Colonoscopy - (Added by TW Conv) NM DILATION & CURETTAGE DX&/ THER NONOBSTETRIC Dilation And Curettage - (Added by TW Conv) CARPAL TUNNEL RELEASE Bilateral 2020 Medical History Medical History Date Comments Personal history of other sp ecified conditions History of syncope - (Added by AJ Conv) 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 Sexual Orientation Not on file Obstetrics History [...] (ABNORMAL) Immature Cells (10/02/2024 11:30 AM CDT) Metamyelocyte 1(H) 0 - 0 % [facility] - 01 Myelocyte 5(H) 0 - 0 % [facility] - 01 10/02/2024 11:3 0 AM CDT 10/02/2024 Narrative [facility] - 10/03/2024 11:10 AM CDT Performed at: [facility] [id number] Consultant Intern: Lucio Ellison PhD, Phone: [phone] Susan Suarez MD LAB BLOOD ORDERABLES nal Result [facility] - * (ABNORMAL) Cyclosporine A level trough (10/02/2024 11:30 AM CDT) Pathologist [facility] Cyclosporine by Immunoassay <25(L) 100 - 400 ng/mL [facility] - 01 Comment: Verified by repeat analysis Therapeutic: Renal Transplant 100 - 250 Liver Transplant 100 - 400 Cardiac Transplant 100 - 400 Bone Marrow 200 - 300 Detection Limit = 25 Cyclosporine assay performed by [employer] Immunoassay. If preferred testing methodology for cyclosporine is Liquid Chromatography Tandem Mass Spectrometry (LC-MS/MS), please use test code 011154. For testing performed by Immunoassay, please use test code [id number]. Blood 10/02/2024 11:3 0 AM CDT 10/02/2024 Narrative [facility] - 10/03/2024 3:10 PM CDT Performed at: [address] [place] [id number] Consultant Intern: Lucio Ellison PhD, Phone: [phone] Susan Suarez MD LAB BLOOD ORDERABLES Fi nal Result Performing Organization Address [facility] Phone Number [facility] - 01 * (ABNORMAL) Microscopic Examination (10/02/2024 11:30 AM CDT) Pathologist [facility] WBC, ur 0-5 0 - 5 /hpf [...] - 10/03/2024 7:09 AM CDT Performed at: [address] [place] [id number] Consultant Intern: Lucio Ellison PhD, Phone: [phone] Susan Suarez MD LAB BLOOD ORDERABLES Fi nal Result Performing Organization Address [facility] de Phone Number [facility] - 01 * (ABNORMAL) Urinalysis reflex to microscopic (10/02/2024 11:30 AM CDT) Pathologist [facility] Specific [place] 1.015 1.005 - 1.030 [facility] - 01 [...] - 10/03/2024 7:09 AM CDT Performed at: [address] [place] [id number] Consultant Intern: Lucio Ellison PhD, Phone: [phone] us Susan Suarez MD LAB URINE ORDERABLES Fi nal Result [facility] - 01 * (ABNORMAL) CBC with [...] - 10/03/2024 11:10 AM CDT Performed at: [address] [place] [id number] Consultant Intern: Lucio Ellison PhD, Phone: [phone] us Susan Suarez MD LAB BLOOD ORDERABLES Fi nal Result [facility] * Comprehensive metabolic panel (10/02/2024 11:30 AM CDT) Pathologist [facility] Glucose 70 70 - 99 mg/dL [facility] [...] 10/03/2024 8:12 AM CDT Performed at: - [facility] [id number] Consultant Intern: Lucio Ellison PhD, Phone: [phone] us Susan Suarez MD LAB BLOOD ORDERABLES Fi nal Result [facility] - 01 * XR Neck Soft [...] anaphylaxis, 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 Wheezes throughout upon auscultation with audible [...] Shirley Reardon M.D. 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 Wheezes throughout upon auscultation with audible [...] Shirley Reardon M.D. 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 Wheezes throughout upon auscultation with audible [...] signed by Arnold GRAHAM: GLADYS Report ID: [id number] Reading Location: [place] [address] Simran Frank MD IMG XR PROCEDURES Final [...] was last reviewed 2021. Testing performed by: [address] [address] Blood 09/28/2024 8:10 PM CDT 09/28/2024 8:12 PM CDT us Simran Frank MD LAB BLOOD ORDERABLES Ruthy l Result [facility] [address] [facility] [place] [address] * (ABNORMAL) Differential, auto (09/28/2024 8:10 PM CDT) Pathologist [facility] Neutrophil abs 12.9(H) 1.5 - 6.5 K/cumm Comment:Testing performed by : [address] [address] Imm gran abs 0.2(H) 0.0 - 0.1 K/cumm [facility] Comment:Testing performed by : [address] [address] Lymphocyte abs 3.9(H) 0.8 - 3.3 K/cumm [facility] Comment:Testing performed by : [address], [place]., [address] Monocyte abs 1.6(H) 0.2 - 0.8 K/cumm [facility] Comment:Testing performed by : [address], [place]., [address] Eosinophil abs 0.0 0.0 - 0.5 K/cumm [facility] Comment:Testing performed by : [address], [place]., [address] Basophil abs 0.0 0.0 - 0.1 K/cumm [facility] Comment:Testing performed by : [address] [address] Neutrophil pct 69.2 % [facility] Comment: Interpretive Data Percent cell count reference ranges are not reported, since discordance with absolute values may lead to misinterpretation of CBC data. Current Interpretive Data was last revised on 2017. Testing performed by: [address] [address] Imm gran pct 1.1 % [facility] Comment: Interpretive Data Percent cell count reference ranges are not reported, since discordance with absolute values may lead to misinterpretation of CBC data. Current Interpretive Data was last revised on 2017. Testing performed by: [address] [address] Lymphocyte pct 20.7 % [facility] Comment: Interpretive Data Percent cell count reference ranges are not reported, since discordance with absolute values may lead to misinterpretation of CBC data. Current Interpretive Data was last revised on 2017. Testing performed by: [address] [address] Monocyte pct 8.7 % [facility] Comment: Interpretive Data Percent cell count reference ranges are not reported, since discordance with absolute values may lead to misinterpretation of CBC data. Current Interpretive Data was last revised on 2017. Testing performed by: [address] [address] Eosinophil pct 0.1 % [facility] Comment: Interpretive Data Percent cell count reference ranges are not reported, since discordance with absolute values may lead to misinterpretation of CBC data. Current Interpretive Data was last revised on 2017. Testing performed by: [address] [address] Basophil pct 0.2 % [facility] Comment: Interpretive Data Percent cell count reference ranges are not reported, since discordance with absolute values may lead to misinterpretation of CBC data. Current Interpretive Data was last revised on 2017. Testing performed by: [address] [address] Blood 09/28/2024 8:10 PM CDT 09/28/2024 8:11 PM CDT us Simran Frank MD LAB BLOOD ORDERABLES Ruthy trivedi Result [facility] [facility] [place] [address] * (ABNORMAL) CBC with auto differential (09/28/2024 8:10 PM CDT) WBC 18.6(H) 3.8 - 9.9 K/cumm Comment:Testing performed by : [address] [address] Hgb 11.3(L) 11.9 - 15.5 g/dL [facility] Comment:Testing performed by : [address] [address] Hct 36.0 35.6 - 45.5 % [facility] Comment:Testing performed by : [address] [address] Plt 601(H) 150 - 400 K/cumm [facility] Comment:Testing performed by : [address] [address] MPV 9.1 9.1 - 12.3 fL [facility] Comment:Testing performed by : [address] [address] RBC 4.56 3.90 - 5.20 M/cumm [facility] Comment:Testing performed by : [address] [place] [address] MCV 78.9(L) 81.3 - 96.4 fL [facility] Comment:Testing performed by : [address] [address] MCH 24.8(L) 27.1 - 33.3 pg [facility] Comment:Testing performed by : [address] [address] MCHC 31.4(L) 32.3 - 35.7 g/dL [facility] Comment:Testing performed by : [address] [address] RDW CV 15.2(H) 11.1 - 14.9 % [facility] Comment:Testing performed by : [address] [address] RDW SD 43.6 35.7 - 48.1 fL [facility] Comment:Testing performed by : [address] [address] NRBC abs 0.03(H) 0.00 - 0.01 K/cumm [facility] Comment:Testing performed by : [address] [address] Blood 09/28/2024 8:10 PM CDT 09/28/2024 8:11 PM CDT us Simran Frank MD LAB BLOOD ORDERABLES Ruthy trivedi Result [facility] [address] [facility] Department of Laboratories [place], [place] [id number] * (ABNORMAL) Comprehensive metabolic panel (09/28/2024 8:10 PM CDT) Sodium 142 135 - 145 mmol/L Comment:Testing performed by : [address] [address] Potassium, pl 3.2(L) 3.3 - 4.9 mmol/L [facility] Comment:Testing performed by : [address], [address] Chloride 103 97 - 110 mmol/L [facility] Comment:Testing performed by : [address] [address] CO2 23 22 - 32 mmol/L [facility] Comment:Testing performed by : [address] [address] Anion gap 16(H) 2 - 15 mmol/L [facility] Comment:Testing performed by : [address] [address] BUN 18 6 - 25 mg/dL [facility] Comment:Testing performed by : [address], [place]., [address] Creatinine 0.80 0.60 - 1.10 mg/dL [facility] Comment:Testing performed by : [address] [address] Glucose 108 70 - 199 mg/dL [facility] [...] was last revised 2022. Testing performed by: [address] [address] Calcium 10.0 8.5 - 10.3 mg/dL [facility] Comment:Testing performed by : [address] [address] Bilirubin, total <0.2 0.1 - 1.2 mg/dL [facility] Comment:Testing performed by : [address] [address] Protein, pl 7.4 6.5 - 8.5 g/dL [facility] Comment:Testing performed by : [address] [address] Albumin 4.4 3.5 - 5.0 g/dL [facility] Comment:Testing performed by : [address], [place]., [address] Alk phos 77 40 - 130 Units/L [facility] Comment:Testing performed by : [address], [address] ALT 28 7 - 45 Units/L [facility] Comment:Testing performed by : [address], [address] AST 22 10 - 45 Units/L [facility] Comment:Testing performed by : [address], [address] Blood 09/28/2024 8:10 PM CDT 09/28/2024 8:12 PM CDT Simran Frank MD LAB BLOOD ORDERABLES Ruthy l Result Performing Organization Address City/[facility]/ZIP Co de Phone Number [facility] [address] [facility] [place] [address] * ECG 12 lead (09/28/2024 8:02 PM CDT) Pathologist [facility] Ventricular Rate EKG/Min 151 BPM [facility] Atrial Rate 151 BPM [facility] NM-Interval (MSEC) 104 ms [facility] QRS-Interval (MSEC) 90 ms [facility] QT-Interval (MSEC) 336 ms [facility] QTc 532 ms [facility] P [place] 37 degrees [facility] R [place] 40 degrees [facility] T [place] 53 degrees [facility] Diagnosis Sinus tachycardia with short NM RSR' or QR pattern in V1 suggests right ventricular conduction delay Abnormal ECG When compared with ECG of 23-SEP-2024 16:46, No significant change Confirmed by BELIA CHU M.D. ([id number]) on 09/29/2024 11:02:24 PM [facility] 09/28/2024 8:02 PM CDT 09/29/2024 11:02 PM CDT Simran Frank MD ECG ORDERABLES Final Res ult Performing Organization Address City/[facility]/ZIP Co de Phone Number [facility] * eGFR (09/27/2024 2:58 AM CDT) [...] was last reviewed 2021. Testing performed by: [address] [address] Blood 09/27/2024 2:58 AM CDT 09/27/2024 3:03 AM CDT us Ferdinand Rivera DO LAB BLOOD ORDERABLES Final Res ult [facility] [address] [facility] [place] [address] * (ABNORMAL) Differential, auto (09/27/2024 2:58 AM CDT) Neutrophil abs 13.2(H) 1.5 - 6.5 K/[facility] Comment:Testing performed by : [address] [address] Imm gran abs 0.1 0.0 - 0.1 K/cumm [facility] Comment:Testing performed by : [address] [address] Lymphocyte abs 1.7 0.8 - 3.3 K/cumm [facility] Comment:Testing performed by : [address] [address] Monocyte abs 1.0(H) 0.2 - 0.8 K/cumm [facility] Comment:Testing performed by : [address] [address] Eosinophil abs 0.0 0.0 - 0.5 K/cumm [facility] Comment:Testing performed by : [address] [address] Basophil abs 0.0 0.0 - 0.1 K/cumm [facility] Comment:Testing performed by : [address] [address] Neutrophil pct 82.5 % [facility] Comment: Interpretive Data Percent cell count reference ranges are not reported, since discordance with absolute values may lead to misinterpretation of CBC data. Current Interpretive Data was last revised on 2017. Testing performed by: [address] [address] Imm gran pct 0.8 % [facility] Comment: Interpretive Data Percent cell count reference ranges are not reported, since discordance with absolute values may lead to misinterpretation of CBC data. Current Interpretive Data was last revised on 2017. Testing performed by: [address] [address] Lymphocyte pct 10.4 % [facility] Comment: Interpretive Data Percent cell count reference ranges are not reported, since discordance with absolute values may lead to misinterpretation of CBC data. Current Interpretive Data was last revised on 2017. Testing performed by: [address] [address] Monocyte pct 6.2 % [facility] Comment: Interpretive Data Percent cell count reference ranges are not reported, since discordance with absolute values may lead to misinterpretation of CBC data. Current Interpretive Data was last revised on 2017. Testing performed by: [address] [address] Eosinophil pct 0.0 % [facility] Comment: Interpretive Data Percent cell count reference ranges are not reported, since discordance with absolute values may lead to misinterpretation of CBC data. Current Interpretive Data was last revised on 2017. Testing performed by: [address] [address] Basophil pct 0.1 % [facility] Comment: Interpretive Data Percent cell count reference ranges are not reported, since discordance with absolute values may lead to misinterpretation of CBC data. Current Interpretive Data was last revised on 2017. Testing performed by: [address] [address] Blood 09/27/2024 2:58 AM CDT 09/27/2024 3:03 AM CDT us Ferdinand Rivera DO LAB BLOOD ORDERABLES Final Res ult [facility] [address] [facility] [place] [address] * (ABNORMAL) CBC with auto differential (09/27/2024 2:58 AM CDT) WBC 15.9(H) 3.8 - 9.9 K/cumm Comment:Testing performed by : [address] [address] Hgb 11.3(L) 11.9 - 15.5 g/dL [facility] Comment:Testing performed by : [address] [address] Hct 36.7 35.6 - 45.5 % [facility] Comment:Testing performed by : [address] [address] Plt 532(H) 150 - 400 K/cumm [facility] Comment:Testing performed by : [address] [address] MPV 9.2 9.1 - 12.3 fL [facility] Comment:Testing performed by : [address] [address] RBC 4.50 3.90 - 5.20 M/cumm [facility] Comment:Testing performed by : [address] [address] MCV 81.6 81.3 - 96.4 fL [facility] Comment:Testing performed by : [address] [address] MCH 25.1(L) 27.1 - 33.3 pg [facility] Comment:Testing performed by : [address] [address] MCHC 30.8(L) 32.3 - 35.7 g/dL [facility] Comment:Testing performed by : [address] [address] RDW CV 15.4(H) 11.1 - 14.9 % [facility] Comment:Testing performed by : [address] [address] RDW SD 45.1 35.7 - 48.1 fL [facility] Comment:Testing performed by : [address] [address] NRBC abs 0.00 0.00 - 0.01 K/cumm [facility] Comment:Testing performed by : [address] [address] Blood 09/27/2024 2:58 AM CDT 09/27/2024 3:03 AM CDT Ferdinand Rivera DO LAB BLOOD ORDERABLES Final Res ult [facility] [address] [facility] Department of Laboratories [place], [place] [id number] * Comprehensive metabolic panel (09/27/2024 2:58 AM CDT) Sodium 140 135 - 145 mmol/L Comment:Testing performed by : [address] [address] Potassium, pl 3.8 3.3 - 4.9 mmol/L [facility] Comment:Testing performed by : [address] [address] Chloride 103 97 - 110 mmol/L [facility] Comment:Testing performed by : [address] [address] CO2 23 22 - 32 mmol/L [facility] Comment:Testing performed by : [address] [address] Anion gap 14 2 - 15 mmol/L [facility] Comment:Testing performed by : [address] [address] BUN 11 6 - 25 mg/dL [facility] Comment:Testing performed by : [address] [address] Creatinine 0.66 0.60 - 1.10 mg/dL [facility] Comment:Testing performed by : [address] [address] Glucose 154 70 - 199 mg/dL [facility] Comment: Interpretive Data Fasting glucose >/= 126 [...] was last revised 2022. Testing performed by: [address] [address] Calcium 10.3 8.5 - 10.3 mg/dL [facility] Comment:Testing performed by : [address] [address] Bilirubin, total <0.2 0.1 - 1.2 mg/dL [facility] Comment:Testing performed by : [address] [address] Protein, pl 7.8 6.5 - 8.5 g/dL [facility] Comment:Testing performed by : [address] [address] Albumin 4.5 3.5 - 5.0 g/dL [facility] Comment:Testing performed by : [address] [address] Alk phos 85 40 - 130 Units/L [facility] Comment:Testing performed by : [address] [address] ALT 25 7 - 45 Units/L [facility] Comment:Testing performed by : [address] [address] AST 15 10 - 45 Units/L [facility] Comment:Testing performed by : [address] [address] Blood 09/27/2024 2:58 AM CDT 09/27/2024 3:03 AM CDT us Ferdinand Rivera DO LAB BLOOD ORDERABLES Final Res ult [facility] [address] [facility] [place] [address] * eGFR (09/24/2024 3:43 AM [...] was last reviewed 2021. Testing performed by: [address] [address] Blood 09/24/2024 3:43 AM CDT 09/24/2024 4:47 AM CDT us Dariela Cortez [facility] LAB BLOOD ORDERABLES Final R esult [facility] [address] [facility] Department of Laboratories [place], [place] [id number] * (ABNORMAL) Differential, auto (09/24/2024 3:43 AM CDT) Neutrophil abs 9.1(H) 1.5 - 6.5 K/cumm Comment:Testing performed by : [address] [address] Imm gran abs 0.0 0.0 - 0.1 K/cumm [facility] Comment:Testing performed by : [address] [address] [address] Lymphocyte abs 0.7(L) 0.8 - 3.3 K/cumm [facility] Comment:Testing performed by : [address] [address] Monocyte abs 0.3 0.2 - 0.8 K/cumm [facility] Comment:Testing performed by : [address] [address] Eosinophil abs 0.0 0.0 - 0.5 K/cumm [facility] Comment:Testing performed by : [address] [address] Basophil abs 0.0 0.0 - 0.1 K/cumm [facility] Comment:Testing performed by : [address] [address] Neutrophil pct 89.5 % [facility] Comment: Interpretive Data Percent cell count reference ranges are not reported, since discordance with absolute values may lead to misinterpretation of CBC data. Current Interpretive Data was last revised on 2017. Testing performed by: [address] [address] Imm gran pct 0.3 % [facility] Comment: Interpretive Data Percent cell count reference ranges are not reported, since discordance with absolute values may lead to misinterpretation of CBC data. Current Interpretive Data was last revised on 2017. Testing performed by: [address] [address] Lymphocyte pct 6.9 % [facility] Comment: Interpretive Data Percent cell count reference ranges are not reported, since discordance with absolute values may lead to misinterpretation of CBC data. Current Interpretive Data was last revised on 2017. Testing performed by: [address] [address] Monocyte pct 3.1 % [facility] Comment: Interpretive Data Percent cell count reference ranges are not reported, since discordance with absolute values may lead to misinterpretation of CBC data. Current Interpretive Data was last revised on 2017. Testing performed by: [address] [address] Eosinophil pct 0.0 % [facility] Comment: Interpretive Data Percent cell count reference ranges are not reported, since discordance with absolute values may lead to misinterpretation of CBC data. Current Interpretive Data was last revised on 2017. Testing performed by: [address] [address] Basophil pct 0.2 % [facility] Comment: Interpretive Data Percent cell count reference ranges are not reported, since discordance with absolute values may lead to misinterpretation of CBC data. Current Interpretive Data was last revised on 2017. Testing performed by: [address] [address] Blood 09/24/2024 3:43 AM CDT 09/24/2024 4:50 AM CDT Dariela Cortez [facility] LAB BLOOD ORDERABLES Final R esult [facility] [address] [facility] Department of Laboratories [place], [place] [id number] * (ABNORMAL) CBC with auto differential (09/24/2024 3:43 AM CDT) WBC 10.2(H) 3.8 - 9.9 K/cumm Comment:Testing performed by : [address] [address] Hgb 10.5(L) 11.9 - 15.5 g/dL [facility] Comment:Testing performed by : [address] [address] Hct 34.2(L) 35.6 - 45.5 % [facility] Comment:Testing performed by : [address] [address] Plt 418(H) 150 - 400 K/cumm [facility] Comment:Testing performed by : [address] [address] MPV 9.7 9.1 - 12.3 fL [facility] Comment:Testing performed by : [address], [address] RBC 4.17 3.90 - 5.20 M/cumm [facility] Comment:Testing performed by : [address] [address] MCV 82.0 81.3 - 96.4 fL [facility] Comment:Testing performed by : [address] [address] MCH 25.2(L) 27.1 - 33.3 pg [facility] Comment:Testing performed by : [address] [address] MCHC 30.7(L) 32.3 - 35.7 g/dL [facility] Comment:Testing performed by : [address], [address] RDW CV 15.6(H) 11.1 - 14.9 % [facility] Comment:Testing performed by : [address] [address] RDW SD 46.4 35.7 - 48.1 fL [facility] Comment:Testing performed by : [address], [address] NRBC abs 0.00 0.00 - 0.01 K/cumm [facility] Comment:Testing performed by : [address] [address] Blood 09/24/2024 3:43 AM CDT 09/24/2024 4:50 AM CDT us Dariela Gallardocroft CARLOS LAB BLOOD ORDERABLES Final R esult [facility] [address] [facility] Department of Laboratories [place], [place] [id number] * (ABNORMAL) Basic metabolic panel (09/24/2024 3:43 AM CDT) Sodium 138 135 - 145 mmol/L Comment:Testing performed by : [address] [address] Potassium, pl 4.2 3.3 - 4.9 mmol/L [facility] Comment:Testing performed by : [address] [address] Chloride 107 97 - 110 mmol/L [facility] Comment:Testing performed by : [address] [address] CO2 21(L) 22 - 32 mmol/L [facility] Comment:Testing performed by : [address] [address] Anion gap 10 2 - 15 mmol/L [facility] Comment:Testing performed by : [address] [address] BUN 10 6 - 25 mg/dL [facility] Comment:Testing performed by : [address] [address] Creatinine 0.71 0.60 - 1.10 mg/dL [facility] Comment:Testing performed by : [address] [address] Glucose 145 70 - 199 mg/dL TAW[facility]A [...] revised 2022. Testing performed by: [facility] [address] [place] [address]., [address] Calcium 9.7 8.5 - 10.3 mg/dL [facility] MILLS Comment:Testing performed by : [address] [address] Blood 09/24/2024 3:43 AM CDT 09/24/2024 4:47 AM CDT us Dariela Cortez [facility] LAB BLOOD ORDERABLES Final R esult [facility]A MILLS [address] [facility] Department [place] [address] * XR Mandible 4 or [...] Arnold Chahal M.D. KH: GLADYS Report ID: [id number] Reading Location: [id number] Procedure Note Arnold Chahal MD - 09/23/2024 [...] Arnold Chahal M.D. KH: GLADYS Report ID: [id number] Reading Location: [place] [address] Darian Goode MD IMG XR PROCEDURES Fi [...] signed by Arnold GRAHAM: GLADYS Report ID: [id number] Reading Location: [id number] Procedure Note Arnold Chahal MD - 09/23/2024 [...] signed by Arnold GRAHAM: GLADYS Report ID: [id number] Reading Location: [id number] Jorje Huynh MD IMG XR PROCEDURES Final [...] López Mcclellan M.D. MM: MM Report ID: [id number] Reading Location: [id number] Procedure Note López Mcclellan MD - 09/23/2024 [...] López Mcclellan M.D. MM: MM Report ID: [id number] Reading Location: [id number] Samuel Bowen MD IMG XR PROCEDURES F inal Result * ECG 12 lead (09/23/2024 4:46 PM CDT) Ventricular Rate EKG/Min 146 BPM [facility] Atrial Rate 292 BPM [facility] QRS-Interval (MSEC) 98 ms [facility] QT-Interval (MSEC) 350 ms [facility] QTc 545 ms [facility] R [place] 58 degrees [facility] T [place] 50 degrees [facility] Diagnosis Sinus tachycardia Incomplete right bundle branch block T-wave changes When compared with ECG of 01-SEP-2024 13:54, No significant change Confirmed by SULTAN ZUNIGA M.D. ([id number]) on 09/23/2024 9:49:04 PM [facility] 09/23/2024 4:46 PM CDT 09/23/2024 9:49 PM CDT us Samuel Bowen MD ECG ORDERABLES Fin al Result [facility] * eGFR (09/23/2024 4:27 PM CDT) [facility] eGFR 88 >=60 mL/min/1. 73 m2 Comment: [...] reviewed 2021. Testing performed by: [facility], [address] [place] [address]., [address] Blood 09/23/2024 4:27 PM CDT 09/23/2024 4:39 PM CDT us Deisy MARQUEZ LAB BLOOD ORDERABLES Final Resu lt [facility] [address] [facility] Department [place] [address] * (ABNORMAL) Differential, auto (09/23/2024 4:27 PM CDT) Neutrophil abs 7.2(H) 1.5 - 6.5 K/cumm Comment:Testing performed by : [address] [address] Imm gran abs 0.0 0.0 - 0.1 K/cumm [facility] Comment:Testing performed by : [address] [address] Lymphocyte abs 2.4 0.8 - 3.3 K/cumm [facility] Comment:Testing performed by : [address] [address] Monocyte abs 0.8 0.2 - 0.8 K/cumm [facility] Comment:Testing performed by : [address] [address] Eosinophil abs 0.1 0.0 - 0.5 K/cumm [facility] Comment:Testing performed by : [address] [address] Basophil abs 0.1 0.0 - 0.1 K/cumm [facility] Comment:Testing performed by : [address] [address] Neutrophil pct 68.6 % [facility] Comment: Interpretive Data Percent cell count reference ranges are not reported, since discordance with absolute values may lead to misinterpretation of CBC data. Current Interpretive Data was last revised on 2017. Testing performed by: [address] [address] Imm gran pct 0.4 % [facility] Comment: Interpretive Data Percent cell count reference ranges are not reported, since discordance with absolute values may lead to misinterpretation of CBC data. Current Interpretive Data was last revised on 2017. Testing performed by: [address] [address] Lymphocyte pct 22.5 % [facility] Comment: Interpretive Data Percent cell count reference ranges are not reported, since discordance with absolute values may lead to misinterpretation of CBC data. Current Interpretive Data was last revised on 2017. Testing performed by: [address] [address] Monocyte pct 7.1 % [facility] Comment: Interpretive Data Percent cell count reference ranges are not reported, since discordance with absolute values may lead to misinterpretation of CBC data. Current Interpretive Data was last revised on 2017. Testing performed by: [address] [address] Eosinophil pct 0.7 % [facility] Comment: Interpretive Data Percent cell count reference ranges are not reported, since discordance with absolute values may lead to misinterpretation of CBC data. Current Interpretive Data was last revised on 2017. Testing performed by: [address] [address] Basophil pct 0.7 % [facility] Comment: Interpretive Data Percent cell count reference ranges are not reported, since discordance with absolute values may lead to misinterpretation of CBC data. Current Interpretive Data was last revised on 2017. Testing performed by: [address] [address] Blood 09/23/2024 4:27 PM CDT 09/23/2024 4:39 PM CDT us Samuel Bowen MD LAB BLOOD ORDERABLE S Final Result [facility] [address] [facility] [place] [address] * (ABNORMAL) CBC with auto differential (09/23/2024 4:27 PM CDT) WBC 10.5(H) 3.8 - 9.9 K/cumm Comment:Testing performed by : [address] [address] Hgb 11.9 11.9 - 15.5 g/dL [facility] Comment:Testing performed by : [address] [address] Hct 40.4 35.6 - 45.5 % [facility] Comment:Testing performed by : [address] [address] Plt 517(H) 150 - 400 K/cumm [facility] Comment:Testing performed by : [address] [address] MPV 9.3 9.1 - 12.3 fL [facility] Comment:Testing performed by : [address], [address] RBC 4.93 3.90 - 5.20 M/cumm [facility] Comment:Testing performed by : [address] [address] MCV 81.9 81.3 - 96.4 fL [facility] Comment:Testing performed by : [address] [address] MCH 24.1(L) 27.1 - 33.3 pg [facility] Comment:Testing performed by : [address] [address] MCHC 29.5(L) 32.3 - 35.7 g/dL [facility] Comment:Testing performed by : [address] [address] RDW CV 15.6(H) 11.1 - 14.9 % [facility] Comment:Testing performed by : [address] [address] RDW SD 46.5 35.7 - 48.1 fL [facility] Comment:Testing performed by : [address] [address] NRBC abs 0.00 0.00 - 0.01 K/cumm [facility] Comment:Testing performed by : [address] [address] Blood 09/23/2024 4:2 7 PM CDT 09/23/2024 4:39 PM CDT us Samuel Bowen MD LAB BLOOD ORDERABLE S Final Result [facility] [address] [facility] Department [place] [address] * Comprehensive metabolic panel (09/23/2024 4:27 PM CDT) Sodium 141 135 - 145 mmol/L Comment:Testing performed by : [address] [address] Potassium, pl 3.3 3.3 - 4.9 mmol/L [facility] Comment:Testing performed by : [address] [address] Chloride 104 97 - 110 mmol/L [facility] Comment:Testing performed by : [address] [address] CO2 22 22 - 32 mmol/L [facility] Comment:Testing performed by : [address] [address] Anion gap 15 2 - 15 mmol/L [facility] Comment:Testing performed by : [address] [address] BUN 11 6 - 25 mg/dL [facility] Comment:Testing performed by : [address] [address] Creatinine 0.89 0.60 - 1.10 mg/dL [facility] Comment:Testing performed by : [address] [address] Glucose 153 70 - 199 mg/dL [facility] [...] revised 2022. Testing performed by: [facility], [address] [place] [address]., [address] Calcium 9.9 8.5 - 10.3 mg/dL [facility] Comment:Testing performed by : [address] [address] Bilirubin, total <0.2 0.1 - 1.2 mg/dL [facility] Comment:Testing performed by : [address] [address] Protein, pl 8.0 6.5 - 8.5 g/dL [facility] Comment:Testing performed by : [address], [place]., [address] Albumin 4.6 3.5 - 5.0 g/dL [facility] Comment:Testing performed by : [address] [address] Alk phos 84 40 - 130 Units/L [facility] Comment:Testing performed by : [address] [address] ALT 42 7 - 45 Units/L [facility] Comment:Testing performed by : [address] [address] AST 27 10 - 45 Units/L [facility] Comment:Testing performed by : [address] [address] Blood 09/23/2024 4:27 PM CDT 09/23/2024 4:39 PM CDT us Samuel Bowen MD LAB BLOOD ORDERABLE S Final Result [facility] [address] [facility] [place] [address] from Last 3 Months Insurance [facility] PLUS [facility] PLUS Advance Directives For more information, please contact: [phone] * Full Code (Latest Code Status on File) Date Activated Date Inactivated Comments 09/23/2024 7:38 PM 09/24/2024 5:41 PM * Full Code Date Activated Date Inactivated Comments 09/01/2024 7:30 PM 09/05/2024 3:39 PM * Full Code Date Activated Date Inactivated Comments 08/19/2024 9:45 PM 08/22/2024 5:15 PM Care Teams Pneumatic Tester Relationship Specialty Start Date End Date Shannan Maldonado MD PCP - General 09/07/19
== END 2024-12-11 06:49 | disposition home or self-care (01) ==
LOC: ANHIMG 06:49
PROVIDERS: PCP Family Medicine
DX: M54.6 Pain in thoracic spine (principal)
CPT/HCPCS: 72146

== ENCOUNTER 2025-01-30 06:45 | Outpatient (CLI) | payer OTHER, SELFPAY ==
--- OUTSIDE RECORDS SUMMARY | 2025-01-30 06:49 | XMS_ITS | Patient Health Record ---
Author Organization [facility] ([address]) Address [address] [place] [address] Care Team Providers Care Senior Laboratory Technician Name Role Phone Shannan Maldonado Primary Care Provider Romy Clark Unavailable [phone] Megan Alvarado Unavailable [phone] Allergies Allergen (clinical drug ingredient) Drug/Non Drug Allergy documented on EMR Reaction Allergy Type Onset Date Status BIAXIN (uncoded) vomiting Allergy Act hayder ZOFRAN (uncoded) Itching Allergy Act hayder Azithromycin vomiting Drug Allergy Acti ve Cymbalta other reaction Drug Allergy Ac tive meperidine Demerol vomiting Drug Allergy Active hydrocodone HYDROcodone QT Prolongation Drug Allergy Active hydromorphone HYDROmorphone Itching Drug Allergy Active Reason For Referral No Information Medications Medication SIG (Take, Route, Frequency, Duration) Notes Start Date End Date Status ZYRTEC 10 mg 1 tab(s) orally once a day; Duration: 30 days Active predniSONE 20 mg 1 tab(s) orally once a day for bronchitis Not-Taking predniSONE 20 MG 3 tablets once a day for 3 days, 2 tablets once a day for 3 days, 1 tablet once a day for 3 days Orally Once a day; Duration: 9 days Not-Taking Famotidine 40 MG 1 tab(s) orally 2 times a day; Duration: 90 days Active Xolair 300 MG/2ML inject 300mg Subcutaneously every 2 weeks; Duration: 14 days 12/25/2024 Active AUVI-Q 0.3 mg as directed intramuscularly once; Duration: 1 day Active Flonase Allergy Relief 50 MCG/ACT 1 spray(s) intranasally once a day; Duration: 30 day(s) Not-Taking Reglan 10 MG 1 tab(s) orally Qday, PRN Active Cyclobenzaprine HCl 10 MG 1 tab(s) orally 3 times a day Active Prochlorperazine Maleate 10 MG Oral; Duration: 22 Days Active Prochlorperazine Maleate 10 MG 1 tab(s) orally every 6 hours 10/11/2023 Active traZODone HCl 50 MG as directed orally once a day Active Auvi-Q 0.3 MG/0.3ML as directed intramuscularly once; Duration: 1 day Active diazePAM 5 MG 1 tab(s) orally every 8 hours Active Immunizations Vaccine Route Administration Date Status Comme nts Pneumovax 23 IM Intramuscular 02/25/2020 Administered Social History Tobacco Use: Social History Observation Description Date Details (start date - stop date) Never Smoker NA - NA Sex Assigned At : Social History Observation Description Sex Assigned At Female Smoking Smart Form: Question Answer Notes Are you a: never smoker Tobacco Control (Standard) Question Answer Notes Tobacco use: Nonsmoker AUDIT-C (Standard) Question Answer Notes Did you have a drink containing alcohol in the p ast year? No Points 0 Interpretation Negative Problems Problem Type SNOMED Code ICD Code Onset Dates Problem Status W/U Status Risk Notes Problem Idiopathic urticaria (40711667) Idiopathic urticaria (L50.1) Active confirmed Problem Anemia (339003455) Anemia, unspecified (D64.9) Active confirmed Problem Chronic allergic conjunctivitis (19512738) Other chronic allergic conjunctivitis (H10.45) Active confirmed Problem Allergic rhinitis caused by pollen (disorder) (34246282) Allergic rhinitis due to pollen (J30.1) Active confirmed Problem Allergic rhinitis (12006384) Other allergic rhinitis (J30.89) Active confirmed Problem Chronic sinusitis (44763710) Chronic sinusitis, unspecified (J32.9) Active confirmed Problem Mild intermittent asthma (208603198) Mild intermittent asthma, uncomplicated (J45.20) Active confirmed Problem 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 confirmed Problem Angioneurotic edema (35500268) Angioneurotic edema, subsequent encounter (T78.3XXD) Active confirmed Problem Allergy status t o narcotic agent status (Z88.5) Active confirmed Problem Food allergy (875799700) Allergy to other foods (Z91.018) Active confirmed Problem Allergic rhinitis caused by animal hair and dander (641645075729600) Allergic rhinitis due to animal (cat) (dog) hair and dander (J30.81) Active confirmed Problem Angioneurotic edema (01586069) Angioneurotic edema, initial encounter (T78.3XXA) Active confirmed Problem Urticaria (063269297) Other Urticaria (L50.8) Active confirmed Vital Signs Blood pressure diastolic 89 mm Hg 01/22/2025 Oximetry 99 % 01/22/2025 Height 67 in 01/22/2025 Blood pressure systolic 142 mm Hg 01/22/2025 Weight 211.8 lbs 11/13/2024 BMI 33.17 kg/m2 11/13/2024 Encounters Encounter Location Date Provider Diagnosis [facility] [address] [place] [phone] 08/27/2024 Romy Montiel Idiopathic urticaria L50.1 ; [...] Mild intermittent asthma, uncomplicated J45.20 [facility] [address] [place] [phone] 11/13/2024 Romy Montiel Idiopathic urticaria L50.1 ; [...] Mild intermittent asthma, uncomplicated J45.20 [facility] [address] [place] [phone] 10/16/2024 Romy Montiel Idiopathic urticaria L50.1 ; Angioneurotic [...] Mild intermittent asthma, uncomplicated J45.20 [facility] [address] [place] [phone] 10/02/2024 Romy Montiel Idiopathic urticaria L50.1 ; [...] uncomplicated J45.20 and Shortness of breath R06.02 [facility] [address] [place] [phone] 09/11/2024 Romy Carranzam Idiopathic urticaria L50.1 ; [...] Mild intermittent asthma, uncomplicated J45.20 [facility] [address] [place] [phone] 05/22/2024 Romy Carranzam Idiopathic urticaria L50.1 ; Angioneurotic [...] Mild intermittent asthma, uncomplicated J45.20 [facility] [address] [address] 01/22/2025 Romy Dinesh Other [facility]aria L50. [address] [facility] [address] [phone] 01/08/2025 Romy Dinesh Other Urticaria L50. [address] [facility] [address] [address] 12/25/2024 Romy Dinesh Other Urticaria L50. [address] [facility] [address] [address] 12/11/2024 Romy Dinesh Other Urticaria L50. [address] [facility] [address] [address] 11/27/2024 Romy Dinesh Other [facility]rticaria L50. [address] [facility] [address] [address] 10/30/2024 Romy Dinesh Other Urticaria L50. [address] [place] [address] [address] 08/07/2024 Romy Dinesh Other Urticaria L50. [address] [place] [address] [address] [address] [place] [phone] 07/24/2024 Romy Dinesh Other [facility]rticaria L50. [address] [facility] [address] [place] [phone] 07/10/2024 Romy Dinesh Other Urticaria L50. [address] [place] [address] [address] [place] [phone] 06/19/2024 Romy Dinesh Other Urticaria L50. 8 [facility] [employer] [address] [place] [phone] 06/05/2024 Romy Dinesh Other Urticaria L50. 8 [facility] [address] [place] [phone] 05/08/2024 Romy Dinesh Other Urticaria L50. [address] [place] [address] [place] [phone] 04/24/2024 Romy Dinesh Other Urticaria L50. 8 [facility] [employer] [address] [place] [phone] 04/10/2024 Romy Dinesh Other Urticaria L[address]. [address] [place] [address] [address] [place] [phone] 03/27/2024 Romy Dinesh Other Urticaria L50. 8 [facility] [employer] [address] [place] [phone] 03/13/2024 Romy Dinesh Other Urt[facility]aria L[address]. [address] [place] [address] [address] [place] [phone] 02/28/2024 Romy Dinesh Other [facility] [address] [place] [address] [address] [place] [phone] 02/14/2024 Romy Dinesh Other [facility] [address] [place] [address] [address] [place] [phone] 01/31/2024 Romy Dinesh Other [facility] [address] [place] [address] [place] [address] 08/05/2024 Romy Dinesh [facility] [address] [place] [address] 07/31/2024 Romy Dinesh [facility] [address] [place] [address] 06/25/2024 Romy Montiel [facility] [address] [facility] [address] [place] [phone] 06/19/2024 Romy Montiel [address] [address] 05/24/2024 Romy Montiel [facility] [address] [place] [phone] 05/02/2024 Romy Montiel Idiopathic urticaria L50.1 [facility] [address] [place] [phone] 12/25/2024 Romy Montiel [address] [address] 11/20/2024 Romy Montiel [address] [address] 10/01/2024 Romy Montiel [address] [address] 10/01/2024 Romy Montiel [address] [address] 09/17/2024 Romy Montiel [address] [address] 09/09/2024 Romy Montiel [facility] [address] [place] [phone] 08/26/2024 Romy Montiel [facility] [address] [place] [phone] 08/21/2024 Romy Montiel [address] [address] 08/05/2024 Romy Montiel Assessments Encounter Date Diagnosis (ICD Code) Assessment Notes Treatment Notes Treatment Clinical Notes Section Notes 01/31/2024 Other Urticaria (ICD-10 - L50.8) 02/14/2024 [...] from Dr. Suarez. Needs to f/u with Foil Spinner or PCP due to fainting episodes 06/05/2024 [...] I discussed treatment plans with Dr. Suarez's IRON ERECTOR. We discussed cyclosporine or Dupixent when it [...] flares. 11/27/2024 Other Urticaria (ICD-10 - L50.8) 12/11/2024 Other Urticaria (ICD-10 - L50.8) 12/25/2024 Other Urticaria (ICD-10 - L50.8) 01/08/2025 Other Urticaria (ICD-10 - L50.8) 01/22/2025 Other Urticaria (ICD-10 - L50.8) 11/13/2024 Chronic [...] R06.02) responded well to albuterol 08/21/2024 Other 01/31/2024 Other 02/14/2024 Other 02/28/2024 Other 03/13/2024 Other 03/27/2024 Other 04/10/2024 Other 04/24/2024 Other 05/08/2024 Other 05/22/2024 Other 06/05/2024 Other 06/19/2024 Other 07/10/2024 Other 07/24/2024 Other 08/07/2024 Other 08/27/2024 Other 09/11/2024 Other 10/02/2024 Other 10/16/2024 Other 10/30/2024 Other 11/13/2024 Other 11/27/2024 Other 12/11/2024 Other 12/25/2024 Other 01/08/2025 Other 01/22/2025 Other Plan Of Treatment Pending Test Test Name Order Date -CBC With Differential/Platelet 02/12/20 N METHYLHISTAMINE, URINE 02/25/2020 STREPTOCOCCUS PNEUMONIAE IGG AB (23 SERO TYPES) 02/25/2020 5-HIAA, 24-HOUR URINE 12/15/2021 ALPHA GAL PANEL 12/15/2021 PROSTAGLANDIN D2 (PG D2), URINE 12/16/19 LEUKOTRIENE E4, URINE 12/15/2021 LEUKOTRIENE E4, URINE 10/26/2022 LEUKOTRIENE E4, URINE 02/25/2020 -IgE Peanut w/Component Profile 10/29/19 Next Appt Details Provider Name:Romy archer, 02/05/2025 09:00:00 AM, [address], [address], [place], [address], Provider Name:Romy archer, 02/19/2025 09:00:00 AM, [address] [facility], [address], [place], [address], Insurance Providers Payer Name Payer Address Payer Phone Subscriber Number Group Number Insured Name Patient Relationship to Insured Coverage Start Date Coverage End Date [employer] [address] [place] [address] [id number] Anson Koenig Spouse - patient is the spouse of the insured 4 [facility] [employer] [address] [address] [place] [address] [phone] [id number] Anson Koenig Spouse - patient is the spouse of the insured 5 [employer] [address] [place] [address] [address] [place] [id number] Rosangela Koenig Self - patient is the [...] Surgical History Surgery Date(Month/Year) Muscle Biopsy 10/17/2006 [place] Teeth Removal 2009 D&C 2008 Medial Patella Femoral Ligament Reconstr uction 11/06/2009 Tonsillectomy 10/2010 Tarsal Tunnal Release 2016 foot surgery for toe dislocation (right foot) 12/2021 screw right great toe replaced and pin p ut in second right toe 04/2023 Hospitalization History Reason Date(Month/Year) anaphylaxis 10/01/23 anaphylaxis 10/12/22 anaphylaxis 09/08/2022 Epistaxis 06/28/22 Urticaria and Angioedema October 2021
--- OUTSIDE RECORDS SUMMARY | 2025-01-30 06:50 | XMS_ITS | Encounter Summary ---
Author Organization [facility] Address [address] [place] [address] Phone Care Team Providers Care Field Applications Specialist Name Role Phone Shannan Maldonado MD Primary Care Provider [phone] Encounter Details Date Type Department Care Team [...] on file Legal Sex Female 1:34 AM CLAIMS ADJUSTOR Gender Identity Female 07/01/2022 7:31 PM CLAIMS ADJUSTOR Sexual Orientation Not on file documented as of this encounter Plan of Treatment Not on file documented as of this encounter Procedures Procedure Name Priority Date/Time Associated Diagnosis Comments SCAN - LABS 10/28/2021 documented in this encounter Results * SCAN - LABS (10/28/2021) us Provider Scanning Final Result documented in this encounter Visit Diagnoses Not on filedocumented in this encounter Care Teams Field Applications Specialist Relationship Specialty Start Date End Date Shannan Maldonado MD PCP - General 09/07/19 documented as of this encounter
--- OUTSIDE RECORDS SUMMARY | 2025-01-30 06:50 | XMS_ITS | Patient Health Record ---
Author Organization [facility] Address [address] [place], [place] [id number] Care Team Providers Care Acute Care Clinical Nurse Specialist Name Role Phone JEANNETTE THORNTON Unavailable [phone] Shannan Maldonado Unavailable Unavailable Allergies Allergen (clinical drug ingredient) Drug/Non Drug Allergy documented on EMR Reaction Allergy Type Onset Date Status Azithromycin Unknown Drug Allergy 12/26/2011 act hayder Biaxin Unknown Drug Allergy 12/26/2011 active Cymbalta Unknown Drug Allergy 03/01/2013 active meperidine Demerol Unknown Drug Allergy Active hydromorphone Dilaudid Unknown Drug Allergy 12/02/2021 ac tive Zofran Unknown Drug Allergy 12/26/2011 active hydrocodone Hydrocodone Unknown Drug Allergy 03/01/2022 ac tive hydromorphone Hydromorphone Unknown Drug Allergy active Reason For Referral No Information Medications Medication SIG (Take, Route, Frequency, Duration) Notes Start Date End Date Status nabumetone 500 MG Oral Tablet [Relafen] ORAL nabumetone 500 MG Oral Tablet [Relafen]Original Medicationnabumetone 500 MG Oral Tablet [Relafen] *Reorder from [employer] for eRx and Interaction Alerts* 03/01/2013 Active Medrol 4 MG as directed Orally 08/13/2024 Active Medrol Dosepak ORAL Medrol DosepakOr iginal MedicationMedrol Dosepak *Reorder from [employer] for eRx and Interaction Alerts* 03/15/2013 Active buspirone hydrochloride 10 MG Oral Tablet ORAL buspirone hydrochloride 10 MG Oral TabletOriginal Medicationbuspirone hydrochloride 10 MG Oral Tablet *Reorder from Medispan for eRx and Interaction Alerts* 09/29/2015 Active cetirizine hydrochloride 10 MG Oral Tablet [Zyrtec] ORAL cetirizine hydrochloride 10 MG Oral Tablet [Zyrtec]Original Medicationcetirizine hydrochloride 10 MG Oral Tablet [Zyrtec] *Reorder from [employer] 1an for eRx and Interaction Alerts* 09/29/2015 Active Encounters Encounter Location Date Provider Diagnosis [address] [id number] 02/16/2024 JEANNETTE BJBURG [facility] [address] [place], [place] [phone] 02/22/2024 JEANNETTE WHITTENBURG Hammer toe of right foot M20.41 ; Metatarsalgia of right foot M77.41 ; Pain in right foot M79.671 and Encounter for other specified surgical aftercare Z48.89 [facility] [address] [place] [id number] 02/29/2024 JEANNETTE WHITTENBURG Hammer toe of right foot M20.41 ; Metatarsalgia of right foot M77.41 ; Pain in right foot M79.671 and Encounter for other specified surgical aftercare Z48.89 [facility] [address] [place] [phone] 03/14/2024 JEANNETTE WHITTENBURG Hammer toe of right foot M20.41 ; Metatarsalgia of right foot M77.41 ; Pain in right foot M79.671 and Encounter for other specified surgical aftercare Z48.89 [facility] [address] [place] [id number] 04/11/2024 JEANNETTE WHITTENBURG Hammer toe of right foot M20.41 ; Metatarsalgia of right foot M77.41 ; Pain in right foot M79.671 and Encounter for other specified surgical aftercare Z48.89 [facility] [address] [place], [place] [id number] 08/13/2024 JEANNETTE THORNTON Dislocation of metatarsophalangeal joint of left lesser toe(s), initial encounter S93.125A and Left foot pain M79.672 [facility] [address] [place], [place] [phone] 08/29/2024 JEANNETTE THORNTON Left foot pain M79.6 73 and Dislocation of metatarsophalangeal joint of left lesser toe(s), subsequent encounter S93.125D Assessments Encounter Date Diagnosis (ICD Code) Assessment Notes Treatment Notes Treatment Clinical Notes Section Notes 02/22/2024 Metatarsalgia of rig ht foot (ICD-10 - M77.41) 02/22/2024 Hammer toe of right foot (ICD-10 - M20.41) 02/29/2024 Hammer toe of right foot (ICD-10 - M20.41) 04/11/2024 Hammer toe of right foot (ICD-10 - M20.41) Normal activities: Patient may return to normal activities as tolerated. 08/13/2024 Dislocation of metatarsophalangeal joint of left lesser toe(s), initial encounter (ICD-10 - S93.125A) 08/13/2024 Left foot pain (ICD- 10 - M79.672) 08/29/2024 Dislocation of metatarsophalangeal joint of left lesser toe(s), subsequent encounter (ICD-10 - S93.125D) 08/29/2024 Left foot pain (ICD- 10 - M79.672) 03/14/2024 Hammer toe of right foot (ICD-10 - M20.41) Shoes: Patient may return to normal shoes as tolerated. 04/11/2024 Metatarsalgia of rig ht foot (ICD-10 - M77.41) 02/29/2024 Metatarsalgia of rig ht foot (ICD-10 - M77.41) 03/14/2024 Metatarsalgia of rig ht foot (ICD-10 - M77.41) 02/22/2024 Pain in right foot (ICD-10 - M79.671) 02/22/2024 Encounter for other specified surgical aftercare (ICD-10 - Z48.89) 02/29/2024 Pain in right foot (ICD-10 - M79.671) 03/14/2024 Pain in right foot (ICD-10 - M79.671) 04/11/2024 Pain in right foot (ICD-10 - M79.671) 04/11/2024 Encounter for other specified surgical aftercare (ICD-10 - Z48.89) 03/14/2024 Encounter for other specified surgical aftercare (ICD-10 - Z48.89) 02/29/2024 Encounter for other specified surgical aftercare (ICD-10 - Z48.89) 02/22/2024 Other Dressing Change: The old dressing was removed. Utilizing aseptic technique, a new sterile compression dressing was applied. Patient was instructed to keep it dry and not remove it. 02/29/2024 Other Suture Removal: The sutures were removed. 08/13/2024 Other Splinted toe in position. 08/29/2024 Other Continue with earline splint Plan Of Treatment No Information Insurance Providers Payer Name Payer Address Payer Phone Subscriber Number Group Number Insured Name Patient Relationship to Insured Coverage Start Date Coverage End Date [facility] [address] [id number] [id number] WINN Self - patient is the insured
--- OUTSIDE RECORDS SUMMARY | 2025-01-30 06:50 | XMS_ITS | Clinical Summary ---
Author Organization [facility] Address [address] [place] [address] Care Team Providers Care Woods Boss Name Role Phone Shannan Maldonado MD Primary Care Provider [phone] Celio Jacques MD Unavailable Allergies Active Allergy [...] 9:40 AM CDT Height 170.2 cm (5' 7) 02/16/2024 9:40 AM CDT Body Mass Index 30.04 02/16/2024 9:40 AM CDT Plan of Treatment Health Maintenance Due Date Last Done Comments Cervical Cancer Screening Pap Smear (Age 30 to 64) Every 3 Years 1991 Annual Physical 1994 Hepatitis C 2009 Hepatitis B Vaccines (1 of 3 - 19+ 3-dose series) 2010 HPV Vaccines (1 - 3-dose SCDM series) 2018 Cervical Cancer Screening Pap with HPV Testing (Age 30 to 64) Every 5 Years 2021 Cervical Cancer Screening with HPV 2021 COVID-19 Vaccine ( season) 2024 10/07/2021, 03/30/2021, 09/23/2020, Additional history exists DTaP, Tdap and Td Vaccines (2 - Td or Tdap) 07/10/2027 07/10/2017 Pneumococcal Vaccine: Pediatrics (0 to 5 Years) and At-Risk Patients (6 to 49 Years) Aged Out 02/25/2020 No longer eligible [...] this topic Medical Devices Implanted Type Area Scrap Breaker Device Identifier Shelf Expiration Date Model / Serial / Lot Staple Bone [id number] m 2m - [id number] Implanted:Qty: 1 on 02/16/2024 by Pranay Dejesus DPM at [facility] Jerry Right: Foot [employer] 06/01/2027 [id number] / / [id number] Wire Kwire .045in 4in - [id number] Implanted:Qty: 1 on 03/17/2023 by Pranay Dejesus DPM at [facility] [employer] Wire Right: Toe [employer] [id number] / / Description:Right second toe Insurance [employer] Care Teams Woods Boss Relationship Specialty Start Date End Date Shannan Maldonado MD PCP - General 05/06/16 Celio Jacques MD [address] [facility] [address] [place] [address] CARDIOLOGY 03/14/23
--- OUTSIDE RECORDS SUMMARY | 2025-01-30 06:50 | XMS_ITS | Clinical Summary ---
Author Organization [facility] Geena Sue Extdamian nsion Address [address] [place] [address] Care Team Providers Care Automation Driver Name Role Phone Shannan Maldonado MD Primary Care Provider [phone] Allergies Active Allergy Reactions Criticality Noted Date [...] Encounters Date Type Department Care Team Description 01/20/2025 10:00 AM CDT Therapy [facility] Otolaryngology [address] [facility] Advanced Medicine 11th [place] [address] [place] [address] Janine Machado, DOREEN Dysphonia (Primary Dx); Sensation of swollen throat 12/30/2024 3:30 PM CDT Telemedicine [facility] Allergy and Immunology [address] [place] [address] Susan Suarez MD Idiopathic urticaria (Primary Dx); Mast cell activation syndrome 11/21/2024 2:20 PM CDT Therapy [facility] Otolaryngology [address] [facility] [address] [place] [address] Sima Trent SLP Sensation of swollen throat (Primary Dx); Dysphonia 11/21/2024 2:20 PM CDT Office Visit [facility] ENT [address] [facility] Medical Office Building [address] [place] [address] Giovana Loaiza MD Sensation of swollen throat 11/19/2024 10:00 AM CDT Office Visit [facility] Allergy and Immunology [facility] [facility] [address] [place] [address] Oneyda Vaughan NP Idiopathic urticaria (Primary Dx); Mast cell activation syndrome; SOB (shortness of breath); Allergic reaction, subsequent encounter from Last 3 Months Surgical History Surgery Date Site/Laterality Comments [place] BIOPSY MUSCLE SUPERFICIAL Biopsy Muscle - 2006 (Added by TW Conv) KNEE SURGERY Knee Surgery - ligament reconstruction 10/2009 (Added by TW Conv) [place] RELEASE TARSAL TUNNEL Decompression Tarsal Tunnel Release Left Foot - (Added by TW Conv) [place] TONSILLECTOMY PRIMARY/SECONDARY <AGE 12 Tonsillectomy - (Added by TW Conv) WISDOM TOOTH EXTRACTION Oral Surgery Tooth Extraction [place] Tooth - (Added by TW Conv) [place] [...] drink = 0.6 oz pur e alcohol) [facility] Utilities Answer Date Recorded In the [...] often do you attend chur ch or hoahaoism services? 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 Gender Identity Female 07/01/2022 7:31 PM GEOPHYSICAL MANAGER Sexual Orientation Not on file Obstetrics History [...] Screening 2009 Regular Well Visit/Exam 18-64 2009 HPV Vaccines (1 - 3-dose SCD M series) 2018 Pneumococcal vaccine <65 (2 of 2 - PCV) 02/24/2021 02/25/2020 Influenza Vaccine (#1) 2025 9, 04/06/2019, 07/13/2018, Additional history exists Depression Screening 09/01/2025 09/01/2024, 09/02/19 25 DTaP/Tdap/Td Vaccine (2 - Td or Tdap) 07/10/2027 07/10/2017 Insurance [facility] CHO[facility] H[facility]/PPO Address: [facility] [address] [place] [address] [facility] CHOICE [facility] HMO/PPO Address: [facility] [id number] [place] [address] Advance Directives For more information, please contact: [phone] * Full Code (Latest Code Status on File) Date Activated Date Inactivated Comments 09/23/2024 7:38 PM 09/24/2024 5:41 PM * Full Code Date Activated Date Inactivated Comments 09/01/2024 7:30 PM 09/05/2024 3:39 PM * Full Code Date Activated Date Inactivated Comments 08/19/2024 9:45 PM 08/22/2024 5:15 PM Care Teams Automation Driver Relationship Specialty Start Date End Date Shannan Maldonado MD PCP - General 09/07/19
--- OUTSIDE RECORDS SUMMARY | 2025-01-30 06:50 | XMS_ITS | Clinical Summary ---
Author Organization [facility] [place] Address [address] [place] [address] Care Team Providers Care Internist Medical Doctor Md Name Role Phone Shannan Maldonado MD Primary Care Provider [phone] Source Comments [facility],non-university hospital Affiliates and Associated Physician Practices is amultiple site organization consisting of ambulatory clinics and hospital sitesin [place], [place], [place] and [place]. This disclosure is being madepursuant to the Care Everywhere program and may not contain all information available regarding this patient. 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 [...] 2015 Assessment & Plan (06/13/2019 10:19 AM EGG CANDLER): Would avoid high osmotic salt loads/salt tablets. Ok to just liberalize salt intake and eat banannas for potassium Postural orthostatic tachycardia syndrome 2015 Assessment & Plan (09/05/2019 10:06 AM EGG CANDLER): Her symptoms are well-controlled today. She dislocated [...] intake. Assessment & Plan (06/13/2019 10:47 AM EGG CANDLER): Postural orthostatic tachycardia syndrome (POTS) is a [...] 05/21/2010 Assessment & Plan (09/05/2019 10:07 AM EGG CANDLER): She had a routine screening echo today. Her aortic root today does not appear dilated by my view. Will await final read and call her if this is abnormal. Otherwise, q2yr echo. 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); Postural orthostatic tachycardia syndrome 12/12/2024 Travel 11/08/2024 3:40 PM CDT Office Visit [facility] - Cardiology [address] [facility] [facility] [place] [address] Javed Julio MD Postural orthostatic tachycardia syndrome [...] 11/08/2024 3:16 PM CDT Plan of Treatment Health Maintenance Due Date Last Done Comments HEPATITIS C SCREENING 05/11/2009 DTAP/TDAP/TD VACCINES (1 - Tdap) 2010 HEPATITIS B VACCINE (1 of 3 - 19+ 3-dose series) 2010 PAP SMEAR 2012 HPV VACCINE (1 - 3-dose SCDM series) 2018 COVID-19 VACCINE (1 - 2023-2 5 season) 2024 DEPRESSION SCREENING 07/03/2024 INFLUENZA VACCINE (#1) 2025 04/06/2019 ZOSTER VACCINE (1 of 2) 2041 HIV [...] Procedure Name Priority Date/Time Associated Diagnosis Comments ECHO COMPLETE W CONTRAST Routine 12/12/2024 12:08 PM CDT Establishing care with new doctor, 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) Postural orthostatic tachycardia syndrome EKG 12-LEAD Routine 11/08/2024 3:23 PM CDT Establishing care with new doctor, encounter for HIV-1 HIV-2 ANTIGEN/ANTIBODY STAT 02/28/2019 1:57 PM CDT from Last 3 Months or Most Recently Relevant to Health Maintenance Results * ECHO COMPLETE W CONTRAST (12/12/2024 12:08 PM CDT) IVSd 2D 0.697 cm SSM CV FUJ I PACS LVIDd 3.938 cm SSM CV FUJ I PACS LVIDs 2.597 cm SSM CV FUJ I PACS LVOT diam 1.971 cm SSM CV FUJ I PACS LVPWd 0.765 cm SSM CV FUJ I PACS LV biplane EF 56.842 % SSM CV FUJI PACS LV A2C EF 58.743 % SSM CV FUJ I PACS LV A4C EF 54.511 % SSM CV FUJ I PACS LV EDV A2C 91.784 ml SSM CV FU JI PACS LV EDV A4C 81.782 ml SSM CV FU JI PACS LV ESV A2C 37.868 ml SSM CV FU JI PACS LV ESV A4C 37.202 ml SSM CV FU JI PACS LVOT pk grad 2.508 mmHg SSM CV FUJI PACS LVOT pk yordan 79.182 cm/s SSM CV F UJI PACS LVOT VTI 15.887 cm SSM CV FUJ I PACS RVOT pk yordan 63.659 cm/s SSM CV F UJI PACS RVOT VTI 11.554 cm SSM CV FUJ I PACS AV area pk yordan 2.52 cm SSM CV FUJI PACS AV area cont VTI 3.013 cm SSM CV FUJI PACS AV pk grad 3.679 mmHg SSM CV FU JI PACS AV mn grad 2.092 mmHg SSM CV FU JI PACS AV pk yordan 95.908 cm/s SSM CV FUJ I PACS AV VTI 16.094 cm SSM CV FUJ I PACS MV A pk yordan 78.56 cm/s SSM CV F UJI PACS MV E pk yordan 64.975 cm/s SSM CV F UJI PACS MV mn grad 1.301 mmHg SSM CV FU JI PACS MV VTI 13.614 cm SSM CV FUJ I PACS PV pk yordan 80.305 cm/s SSM CV FUJ I PACS PV VTI 15.71 cm SSM CV FUJ I PACS TR pk yordan 164.497 cm/s SSM CV FUJ I PACS Ascending aorta 3.001 cm SSM CV FUJI PACS AV area index 1.394 cm /m SSM CV FUJI PACS Dimensionless Index 0.987 unitless SSM CV FUJI PACS Myocardial strain charge 2 unitless SSM CV FUJI PACS Anatomical Region Laterality Modality Ultrasound 12/12/2024 9:46 AM CDT Narrative 12/12/2024 1:15 PM CDT Summary * The left ventricle is normal in size. * Left ventricular segmental wall motion is normal. * The left ventricular diastolic function is normal. * Left ventricular systolic function is normal with an estimated ejection fraction of 57% by biplane method of disks. * Right ventricle is normal in size with normal systolic function. * No significant valvular abnormalities. 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 * An Ultrasound Enhancing Agent (UEA) was utilized to enhance endocardial definition and opacify the left ventricle. Contrast/Agitated Saline Contrast / Saline: Definity Amount: 1.50 ml Reaction to Contrast: no Staff Referring Physician: Javed Julio Ordering Provider: Javed Julio Flat Bed Operator: Jane Mckeon Left Ventricle The left ventricular mass is normal. The left ventricle is normal in size. Left ventricular segmental wall motion is normal. Left ventricular systolic function is normal with an estimated ejection fraction of 57% by biplane method of disks. The left ventricular diastolic function is normal. Right Ventricle The right ventricle is normal in size. Right ventricular systolic function is normal. Left Atrium The left atrium is normal in size. Right Atrium The right atrium is normal in size. Atrial Septum Intact interatrial septum visualized by 2D and color Doppler imaging. Aortic Valve The aortic valve is trileaflet. There is no aortic valve stenosis. There is no aortic valve regurgitation. Pulmonic Valve The pulmonic valve is normal. There is no pulmonic valve stenosis. There is mild pulmonic regurgitation. Mitral Valve The mitral valve is normal. There is no mitral valve stenosis. There is mild mitral valve regurgitation. Tricuspid Valve The tricuspid valve is normal. There is trace tricuspid valve regurgitation. Unable to assess pulmonary pressures due to a lack of tricuspid and pulmonic regurgitation. Inferior Vena Cava The inferior vena cava is normal in size (< 2.1 cm). There is > 50% collapse of the IVC upon inspiration with an estimated right atrial pressure of 3 mmHg. Pericardium/Pleural There is no pericardial effusion. Aorta The aortic root at the sinus of Valsalva is normal in size. The ascending aorta is normal in size. Measurements Left Ventricular Outflow Tract Name Value Normal LVOT 2D LVOT Diameter 2.0 cm LVOT Area 3.1 cm2 LVOT Doppler LVOT Peak Velocity 0.8 m/s LVOT Peak Gradient 3 mmHg LVOT Mean Velocity 54.02 cm/s LVOT Mean Gradient 1 mmHg LVOT VTI 15.9 cm LVOT VTI/AV VTI Ratio 1.0 LVOT Stroke Volume 48 ml LVOT Stroke Volume Index 22 ml/m2 35-58 LVOT CO 4.9 l/min LVOT CI 2.2 l/min/m2 Pulmonic Valve Name Value Normal RVOT Doppler RVOT Peak Velocity 0.6 m/s RVOT Peak Gradient 2 mmHg RVOT Mean Gradient 1 mmHg PV Doppler PV Peak Velocity 0.8 m/s PV Peak Gradient 2 mmHg PV Mean Gradient 1 mmHg Mitral Valve Name Value Normal MV Doppler MV Peak Gradient 2 mmHg MV Mean Gradient 1 mmHg MV DI (VTI) 0.86 MV PHT 72 ms MV Area (PHT) 3.04 cm2 4.00-5.00 MV Area (Cont Eq VTI) 3.56 cm2 MV Diastolic Function MV E Peak Velocity 0.6 m/sec MV A Peak Velocity 0.8 m/sec MV E/A 0.8 MV Decel Time (PW) 174 ms MV A Wave Duration 88 ms Tricuspid Valve Name Value Normal TV Regurgitation Doppler TR Peak Velocity 1.6 m/s TR Peak Gradient 11 mmHg Estimated PAP/RSVP RA Pressure 3 mmHg <=5 PA Systolic Pressure 14 mmHg <35 RV Systolic Pressure 14 mmHg <36 Aorta Name Value Normal Ascending Aorta Asc Ao Diameter 3.0 cm 1.9-3.5 Asc Ao Diameter Index 1.4 cm/m2 1.0-2.2 Aortic Valve Name Value Normal AV Doppler AV Peak Velocity 0.96 m/s AV Peak Gradient 4 mmHg AV Mean Gradient 2 mmHg AV VTI 16 cm AV Area (Cont Eq VTI) 3.01 cm2 >=2.00 AV Area (Cont Eq Yordan) 2.52 cm2 AV DI (VTI) 0.99 AV DI (Yordan) 0.83 AV Regurgitation 2D LVOT Area 3.05 cm2 Ventricles Name Value Normal LV Dimensions 2D/MM IVS Diastolic Thickness (2D) 0.7 cm 0.6-0.9 LVID Diastole (2D) 3.9 cm 3.8-5.2 LVPW Diastolic Thickness (2D) 0.8 cm 0.6-0.9 LVID Systole (2D) 2.6 cm 2.2-3.5 LV Mass (2D Cubed) 81 g 67-162 LV Mass Index (2D Cubed) 37 g/m2 43-95 Relative Wall Thickness (2D) 0.39 <=0.42 LV Fractional Shortening/Ejection Fraction 2D/MM LV Fractional Shortening (2D) 34 % 27-45 LV EF (2D Teicholz) 64 % 54-74 LV Diastolic Volume (4C MOD) 82 ml LV EF (4C MOD) 55 % LV Diastolic Volume (2C MOD) 92 ml LV EF (2C MOD) 59 % LV Diastolic Volume (BP MOD) 87 ml 46-106 LV Diastolic Volume Index (BP MOD) 40 ml/m2 29-61 LV Systolic Volume (BP MOD) 38 ml 14-42 LV Systolic Volume Index (BP MOD) 17 ml/m2 8-24 LV EF (BP MOD) 57 % 54-74 LV Diastolic Length (4C) 7.6 cm LV Systolic Length (4C) 6.5 cm LV Stroke Volume (4C MOD) 45 ml Report Signatures Finalized by Ada Briceño MD on 12/12/2024 01:15 PM Procedure Note Ada Briceño MD - 12/12/2024 Summary * The left ventricle is normal in size. * Left ventricular segmental wall motion is normal. * The left ventricular diastolic function is normal. * Left ventricular systolic function is normal with an estimatedejection fraction of 57% by biplane method of disks. * Right ventricle is normal in size with normal systolic function. * No significant valvular abnormalities. 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 * An Ultrasound Enhancing Agent (UEA) was utilized to enhanceendocardial definition and opacify the left ventricle. Contrast/Agitated Saline Contrast / Saline: Definity Amount: 1.50 ml Reaction to Contrast: no Staff Referring Physician: Javed Julio Ordering Provider: Javed Julio Flat Bed Operator: Jane Mckeon Left Ventricle The left ventricular mass is normal. The left ventricle is normal insize. Left ventricular segmental wall motion is normal. Left ventricularsystolic function is normal with an estimated ejection fraction of 57% by biplane method of disks. The left ventricular diastolic function is normal. Right Ventricle The right ventricle is normal in size. Right ventricular systolicfunction is normal. Left Atrium The left atrium is normal in size. Right Atrium The right atrium is normal in size. Atrial Septum Intact interatrial septum visualized by 2D and color Doppler imaging. Aortic Valve The aortic valve is trileaflet. There is no aortic valve stenosis. Thereis no aortic valve regurgitation. Pulmonic Valve The pulmonic valve is normal. There is no pulmonic valve stenosis. Thereis mild pulmonic regurgitation. Mitral Valve The mitral valve is normal. There is no mitral valve stenosis. There ismild mitral valve regurgitation. Tricuspid Valve The tricuspid valve is normal. There is trace tricuspid valveregurgitation. Unable to assess pulmonary pressures due to a lack of tricuspid andpulmonic regurgitation. Inferior Vena Cava The inferior vena cava is normal in size (< 2.1 cm). There is > 50%collapse of the IVC upon inspiration with an estimated right atrial pressure of 3mmHg. Pericardium/Pleural There is no pericardial effusion. Aorta The aortic root at the sinus of Valsalva is normal in size. Theascending aorta is normal in size. Measurements Left Ventricular Outflow Tract Name Value Normal LVOT 2D LVOT Diameter 2.0 cm LVOT Area 3.1 cm2 LVOT Doppler LVOT Peak Velocity 0.8 m/s LVOT Peak Gradient 3 mmHg LVOT Mean Velocity 54.02 cm/s LVOT Mean Gradient 1 mmHg LVOT VTI 15.9 cm LVOT VTI/AV VTI Ratio 1.0 LVOT Stroke Volume 48 ml LVOT Stroke Volume Index 22 ml/m2 35-58 LVOT CO 4.9 l/min LVOT CI 2.2 l/min/m2 Pulmonic Valve Name Value Normal RVOT Doppler RVOT Peak Velocity 0.6 m/s RVOT Peak Gradient 2 mmHg RVOT Mean Gradient 1 mmHg PV Doppler PV Peak Velocity 0.8 m/s PV Peak Gradient 2 mmHg PV Mean Gradient 1 mmHg Mitral Valve Name Value Normal MV Doppler MV Peak Gradient 2 mmHg MV Mean Gradient 1 mmHg MV DI (VTI) 0.86 MV PHT 72 ms MV Area (PHT) 3.04 cm2 4.00-5.00 MV Area (Cont Eq VTI) 3.56 cm2 MV Diastolic Function MV E Peak Velocity 0.6 m/sec MV A Peak Velocity 0.8 m/sec MV E/A 0.8 MV Decel Time (PW) 174 ms MV A Wave Duration 88 ms Tricuspid Valve Name Value Normal TV Regurgitation Doppler TR Peak Velocity 1.6 m/s TR Peak Gradient 11 mmHg Estimated PAP/RSVP RA Pressure 3 mmHg <=5 PA Systolic Pressure 14 mmHg <35 RV Systolic Pressure 14 mmHg <36 Aorta Name Value Normal Ascending Aorta Asc Ao Diameter 3.0 cm 1.9-3.5 Asc Ao Diameter Index 1.4 cm/m2 1.0-2.2 Aortic Valve Name Value Normal AV Doppler AV Peak Velocity 0.96 m/s AV Peak Gradient 4 mmHg AV Mean Gradient 2 mmHg AV VTI 16 cm AV Area (Cont Eq VTI) 3.01 cm2 >=2.00 AV Area (Cont Eq Yordan) 2.52 cm2 AV DI (VTI) 0.99 AV DI (Yordan) 0.83 AV Regurgitation 2D LVOT Area 3.05 cm2 Ventricles Name Value Normal LV Dimensions 2D/MM IVS Diastolic Thickness (2D) 0.7 cm 0.6-0.9 LVID Diastole (2D) 3.9 cm 3.8-5.2 LVPW Diastolic Thickness (2D) 0.8 cm 0.6-0.9 LVID Systole (2D) 2.6 cm 2.2-3.5 LV Mass (2D Cubed) 81 g 67-162 LV Mass Index (2D Cubed) 37 g/m2 43-95 Relative Wall Thickness (2D) 0.39 <=0.42 LV Fractional Shortening/Ejection Fraction 2D/MM LV Fractional Shortening (2D) 34 % 27-45 LV EF (2D Teicholz) 64 % 54-74 LV Diastolic Volume (4C MOD) 82 ml LV EF (4C MOD) 55 % LV Diastolic Volume (2C MOD) 92 ml LV EF (2C MOD) 59 % LV Diastolic Volume (BP MOD) 87 ml 46-106 LV Diastolic Volume Index (BP MOD) 40 ml/m2 29-61 LV Systolic Volume (BP MOD) 38 ml 14-42 LV Systolic Volume Index (BP MOD) 17 ml/m2 8-24 LV EF (BP MOD) 57 % 54-74 LV Diastolic Length (4C) 7.6 cm LV Systolic Length (4C) 6.5 cm LV Stroke Volume (4C MOD) 45 ml Report Signatures Finalized by Ada Briceño MD on 12/12/2024 01:15 PM us Javed Julio MD ECHO CUPID Final Result * EKG 12-LEAD (11/08/2024 3:23 PM CDT) Ventricular Rate 105 BPM [facility] Atrial Rate 105 BPM [facility] P-R Interval 158 ms [facility] QRS Duration ms 100 ms [facility] Q-T Interval ms 376 ms [facility] QTC Calculation (Bezet) 496 ms [facility] Calculated P [place] 51 degrees [facility] Calculated R [place] 38 degrees [facility] Calculated T [place] 37 degrees [facility] Interpretation EKG SINUS TACHYCARDIA OTHERWISE NORMAL ECG WHEN COMPARED WITH ECG OF 28-FEB-2019 17:25, SINUS RATE HAS SLOWED Confirmed by fellow JAMES REYES, NERI ([id number]) on 11/12/2024 4:29:46 PM Confirmed by SILAS RAZO MD ([id number]) on 11/12/2024 9:50:00 PM MIKE ROMANA 11/08/2024 3:23 PM CDT 11/12/2024 9:50 PM CDT us Javed Julio MD ECG ORDERABLES Edited Result - Final MIKE AVENDANO * HIV-1 HIV-2 ANTIGEN/ANTIBODY (02/28/2019 1:57 PM CDT) HIV Antigen/Antibod y 1 & 2 Non-reacti ve Non-react hayder 02/28/2019 4:05 PM CDT [facility] Comment: Neither HIV-1 p24 Antigen nor HIV-1/HIV-2 Antibodies are detected. Blood BLOOD SPECIMEN / Unknown Venipuncture / Unknown 02/28/2019 1:57 PM CDT 02/28/2019 3:22 PM CDT us Abel Barrientos MD LAB - HEMATOLOGY ORDERABLES Final Result Performing Organization Address City/[facility] Co de Phone Number [address] [phone] from Last 3 Months or Most Recently Relevant to Health Maintenance Insurance [facility] * Guarantor: VIDYA KOENIG Account Type Relation to Patient Date of Phone Billing Address Personal/Family Spouse Advance Directives * Full Code (Latest Code Status on File) Date Activated Date Inactivated Comments 02/28/2019 11:41 PM 03/02/2019 12:34 PM * Full Code Date Activated Date Inactivated Comments 02/28/2019 8:46 PM 02/28/2019 11:41 PM Care Teams Internist Medical Doctor Md Relationship Specialty Start Date End Date Shannan Maldonado MD [address] [place] [address] PCP - General Family Medicine 03/22/16
--- OUTSIDE RECORDS SUMMARY | 2025-01-30 06:50 | XMS_ITS | Referral Summary ---
Author Organization [facility] Geena Sue Extdamian nsion Address [address] [facility] [place] [address] Care Team Providers Care Reading Efficiency Course Director Name Role Phone Shannan Maldonado MD Primary Care Provider [phone] Encounters Date Type Department Care Team Description 01/20/2025 10:00 AM CDT Therapy [facility] Otolaryngology [address] [place] [address] 11th [place] [address] [place] [address] Janine Machado SLP Dysphonia (Primary Dx); Sensation of swollen throat 12/30/2024 3:30 PM CDT Telemedicine [facility] Allergy and Immunology [address] [facility] [address] [place] [address] Susan Suarez MD Idiopathic urticaria (Primary Dx); Mast cell activation syndrome 11/21/2024 2:20 PM CDT Therapy [facility] Otolaryngology [address] [facility] Medical Office Building [address] [place] [address] Sima Trent SLP Sensation of swollen throat (Primary Dx); Dysphonia 11/21/2024 2:20 PM CDT Office Visit [facility] ENT [address] [facility] Medical Office Building [address] [place] [address] Giovana Loaiza MD Sensation of swollen throat 11/19/2024 10:00 AM CDT Office Visit [facility] Allergy and Immunology [address] [facility] [address] [place] [address] Oneyda Vaughan NP Idiopathic urticaria (Primary Dx); Mast cell activation syndrome; SOB (shortness of breath); Allergic reaction, subsequent encounter from Last 3 Months Allergies Active Allergy [...] total) every 6 (six) hours as needed Active cycloSPORINE modified (GENGRAF,NEORAL ) 100 mg [...] drink = 0.6 oz pur e alcohol) [facility] Utilities Answer Date Recorded In the past 12 months has e [facility], gas, oil, or water [employer] threatened to shut off services in your [...] often do you attend chur ch or episcopal services? 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 Gender Identity Female 07/01/2022 7:31 PM EVP AND CHIEF OPERATING OFFICER Sexual Orientation Not on file Last Filed [...] CDT Plan of Treatment Not on file Insurance [facility] CHOICE [facility]US [facility] H[facility]/PPO Address[facility] [id number] [place] [id number] [facility] CHOICE PLUS [facility] H[facility]/PPO Address: [facility] [address] [place] [id number] Advance Directives For more information, please contact: [phone] * Full Code (Latest Code Status on File) Date Activated Date Inactivated Comments 09/23/2024 7:38 PM 09/24/2024 5:41 PM * Full Code Date Activated Date Inactivated Comments 09/01/2024 7:30 PM 09/05/2024 3:39 PM * Full Code Date Activated Date Inactivated Comments 08/19/2024 9:45 PM 08/22/2024 5:15 PM Care Teams Reading Efficiency Course Director Relationship Specialty Start Date End Date Shannan Maldonado MD PCP - General 09/07/19
[2025-01-30 08:00] LABS: Hematocrit 35.6 % (37.0-47.0); Hemoglobin 11.1 g/dL (12.0-15.0); Immature Granulocyte Percent A 0.4 % (0-0.5); Lymphocytes Absolute Auto 2.17 K/mm3 (0.9-3.2); Mean Corpuscular HGB Conc 31.2 g/dl (32-36); Mean Corpuscular Hemoglobin 24.5 pg (26-34); Mean Corpuscular Volume 78.6 fl (80-100); Nucleated Red Blood Cells Absolute Auto 0.000 K/mm3 (0.0-0.012); Nucleated Red Blood Cells Perc 0.0 % (0.0-0.2); Platelet Count Result 425 k/mm3 (150-375); Red Blood Count 4.53 M/mm3 (4.2-5.4); White Blood Count 7.7 K/mm3 (4.5-10.0)
[2025-01-30 08:24] LABS: Iron 59 ug/dL (37-170)
[2025-01-30 08:36] LABS: Percent Iron Saturation 14 % (20-50)
[2025-01-30 08:47] LABS: Free T4 Free Thyroxine 0.89 ng/dL (0.78-2.19)
[2025-01-30 08:55] LABS: Thyroid Stimulating Hormone 2.040 uIU/mL (0.465-4.680)
[2025-01-30 09:05] LABS: Ferritin 7.30 ng/mL (6.24-137)
[2025-01-30 09:31] LABS: Vitamin B12 580.0 pg/mL (239-931)
== END 2025-01-30 06:46 | disposition home or self-care (01) ==
LOC: ANHLAB 06:47
PROVIDERS: PCP Family Medicine; Visit Provider Student in an Organized Health Care Education/Training Program
DX: D64.9 Anemia, unspecified (principal); R79.89 Other specified abnormal findings of blood chemistry
CPT/HCPCS: 36415; 82607; 82728; 82746; 83540; 83550; 84439; 84443; 85025

== ENCOUNTER 2025-04-23 15:55 | Emergency (ER) | payer OTHER, SELFPAY ==
[2025-04-23] VITALS (9 sets, daily range): BP systolic 113–161; BP diastolic 67–116; PULSE 129–146; RESP 15–24; TEMP 36.6–36.8; O2SAT 94–100
--- NOTE | ~2025-04-23 | US_ITS ---
US venous doppler UE RT HISTORY: Pain and swelling in the right upper extremity. COMPARISON: None available. TECHNIQUE: The deep veins of the right upper extremity were evaluated with Duplex Doppler, color Doppler, and high-resolution B-mode sonography. Evaluated veins include the subclavian, axillary and brachial veins. The superficial veins including the cephalic, radial and ulnar veins were also evaluated. Cursory examination of the internal jugular veins were obtained bilaterally. Compression and augmentation maneuvers were performed. FINDINGS: The deep veins of the right upper extremity were compressible and demonstrated spontaneous phasic waveforms with an appropriate response to augmentation maneuvers. The visualized veins demonstrated normal patency. IMPRESSION: There was no sonographic evidence of deep vein thrombosis in the right upper extremity. Reviewed, dictated and finalized at location S. IMPRESSION: There was no sonographic evidence of deep vein thrombosis in the right upper ex tremity.
--- OUTSIDE RECORDS SUMMARY | 2025-04-23 11:10 | XMS_ITS | Encounter Summary ---
Author Organization [facility] Address [address] [place] [address] Phone Care Team Providers Care Chemical Inspector Name Role Phone Shannan Maldonado MD Primary Care Provider [phone] Reason for Referral * Medication Authorization (Routine) - Pending Review Specialty Diagnoses / Procedures Referred By Contac t Referred To Contact Diagnoses Urticaria Oneyda Vaughan NP [address] [place] [address] Phone: tel: fax: Referral ID Status Reason Start Date Expiration Date V isits Requested Visits Authorized [id number] Pending Review 04/23/2025 05/23/2026 1 1 Reason for Visit * Reason Comments Injections * Medication Authorization (Routine) - Authorized Specialty Diagnoses / Procedures Referred By Contac t Referred To Contact Diagnoses Urticaria Oneyda Vaughan NP [address] [place] [address] Phone: tel: fax: Referral ID Status Reason Start Date Expiration Date V isits Requested Visits Authorized [id number] Authorized 03/26/2025 04/25/2026 30 30 Encounter Details Date Type Department Care Team (Latest Contact Info) Description 04/23/2025 11:10 AM CDT Clinical Support [facility] Medicine Allergy and Immunology [address] [facility] [address] [place] [address] Urticaria (Primary Dx) Social History Tobacco Use Types Packs/Day Years Used Date Smoking Tobacco: Never Passive Smoke Exposure: Never Alcohol Use Standard Drinks/Week Comments Yes 0 (1 standard drink = 0.6 oz pur e alcohol) Social Connection and Isolation Panel Answer Date Recorded In a typical week, how many times do you talk on the phone with family, friends, or neighbors? More than three times a week 09/24/2024 How often do you get togethe r with friends or relatives? More than three times a week 09/24/2024 How often do you attend chur ch or nondenominational services? Never 09/24/2024 Do you belong to any clubs o r organizations such as episcopalian groups, unions, fraternal or athletic groups, or school groups? No 09/24/2024 How often do you attend meet ings of the clubs or organizations you belong to? Never 09/24/2024 Are you , , di vorced, , never , or living with a partner? 09/24/2024 Overall Financial Resource Strain (CARDIA) Answe r Date Recorded How hard is it for you to pa y for the very basics like food, housing, medical care, and heating? Not hard at all 09/24/2024 PHQ-2 Answer Date Recorded PHQ-2 Total Score 1 04/04/2025 PRAPARE - Transportation Answer Date Re corded In the past 12 months, has l ack of transportation kept you from medical appointments or from getting medications? No 09/01 In the past 12 months, has l ack of transportation kept you from meetings, work, or from getting things needed for daily living? No 09/24/2024 PHQ-9 Answer Date Recorded PHQ-9 Total Score 1 04/04/2025 Housing Stability Vital Sign Answer Dmitri e Recorded In the last 12 months, was t here a time when you were not able to pay the mortgage or rent on time? No 09/24/2024 In the past 12 months, how m any times have you moved where you were living? 0 09/24/2024 At any time in the past 12 m [facility], were you homeless or living in a [place] (including now)? No 09/24/2024 Social Connection and Isolation Panel Answer Date Recorded In a typical week, how many times do you talk on the phone with family, friends, or neighbors? More than three times a week 04/04/2025 How often do you get togethe r with friends or relatives? More than three times a week 04/04/2025 How often do you attend chur or nondenominational services? More than 4 times per year 04/04/2025 Do you belong to any clubs o r organizations such as episcopalian groups, unions, fraternal or athletic groups, or school groups? Yes 04/04/2025 Attends Club or Organization Meetings More than 4 times per year 04/04/2025 Marital Status 04/04/2025 AUDIT-C Answer Date Recorded Q1: How often do you have a drink containing alc ohol? Monthly or less 03/20/2025 Q2: How many drinks containi ng alcohol do you have on a typical day when you are drinking? 1 or 2 03/20/2025 Q3: How often do you have si x or more drinks on one occasion? Less than monthly 03/20/2025 Overall Financial Resource Strain (CARDIA) Answe r Date Recorded How hard is it for you to pa y for the very basics like food, housing, medical care, and heating? Not hard at all 04/04/2025 [facility] Occupat ional Health - Occupational Stress Questionnaire Answer Date Recorded Do you feel stress - tense, restless, nervous, or anxious, or unable to sleep at night because your mind is troubled all the time - these days? Not at all 04/04/2025 Hunger Vital Sign Answer Date Recorded Worried About Running Out of Food in the Last Ye ar Not on file 04/04/2025 Within the past 12 months, t he food you bought just didn't last and you didn't have money to get more. Never true 04/04/2025 PRAPARE - Transportation Answer Date Re corded In the past 12 months, has l ack of transportation kept you from medical appointments or from getting medications? No 08/2024 In the past 12 months, has l ack of transportation kept you from meetings, work, or from getting things needed for daily living? No 04/04/2025 Housing Stability Vital Sign Answer Dmitri e Recorded Unable to Pay for Housing in the Last Year Not o n file 04/04/2025 In the past 12 months, how m any times have you moved where you were living? 0 04/04/2025 At any time in the past 12 m [facility], were you homeless or living in a [place] (including now)? No 04/04/2025 [facility] Utilities Answer Date Recorded In the past 12 months has th e [employer], gas, oil, or water [employer] threatened to shut off services in your home? No 04/04/2025 Personal Safety Answer Date Recorded Have you ever been in or are you currently in a harmful physical or emotional relationship or is someone making you feel afraid or unsafe? 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 Not on file Not on file Not on file documented as of this encounter Progress Notes * Antoine Cedillo - 04/23/2025 11:09 AM CDT 04/23/25 1108 Dupixent Injection Record Dose 300 mg Frequency q 2 weeks Injection date 04/23/25 Injection Site(s) MODE Comments/Observations SAMPLE Administered by AO documented in this encounter Plan of Treatment Not on file documented as of this encounter Visit Diagnoses Diagnosis Urticaria- Primary Unspecified urticaria documented in this encounter Administered Medications Inactive Administered Medications - up to 3 most recent administrations Medication Order MAR Action Action Date Dose Rate Site dupilumab (DUPIXENT) pen injector 300 mg 300 mg, subcutaneous, Once, On Mon04/23/25 at 1145, For 1 doseIndications:Urticaria Given 04/23/2025 11:13 AM CDT 300 mg Left Upper Arm documented in this encounter Orders Medications Ordered That Sulaiman ht Not Have Been Administered Count Last Ordered Date First Ordered Date dupilumab (DUPIXENT) pen injector 300 mg 1 04/23/2025 documented in this encounter Care Teams Chemical Inspector Relationship Specialty Start Date End Date Shannan Maldonado MD PCP - General 09/07/19 documented as of this encounter
--- NOTE | 2025-04-23 17:25 | ED.RECABL ---
HPI - Recheck/Abnormal Lab/Rx General Chief Complaint: Recheck/Abnormal Lab/Rx Stated Complaint: ?blood clot from recent IV site Time Seen by Provider: 04/23/25 16:59 History of Present Illness HPI narrative: Pt is a 34-year-old female who presents to the ER with right hand bruising, swelling and tenderness for the past 2 weeks. She reports she had an IV site in her right wrist at outside hospital. Patient reports she saw her primary care provider today who advised her to come to the hospital for ultrasound to rule out blood clots. She endorses decreased range of motion and shooting pain from her right wrist up her right thumb, and residential down her right forearm. Patient denies any recent fevers, excessive redness, or decreased range of motion in her right elbow. 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 Related Data Home Medications ?Medication ?Instructions ?Recorded ?Confirmed ?Last Taken ?Type epinephrine 0.3 mg/0.3 mL 0.3 mg IM ONCE PRN Allergic 05/30/23 04/23/25 Unknown History injection, auto-injector Reaction famotidine 40 mg tablet 40 mg PO DAILY 05/30/23 04/23/25 Unknown History Allergies Allergy/AdvReac Type Severity Reaction Status Date / Time peanut Allergy Severe Anaphylaxis, Verified 04/23/25 16:17 HIVES tree nut Allergy Severe Anaphylaxis Verified 04/23/25 16:17 hydromorphone Allergy Intermediate Hives / Verified 04/23/25 16:17 Red Face clarithromycin Allergy Mild N/V Verified 04/23/25 16:17 hydrocodone Allergy Mild Itching Verified 04/23/25 16:17 meperidine Allergy Mild Nausea and Verified 04/23/25 16:17 Vomiting azithromycin Allergy Unknown N/V, Verified 04/23/25 16:17 DIARRHEA, ABD CRAMPING. duloxetine Allergy Unknown BULGING Verified 04/23/25 16:17 EYES ondansetron Allergy Unknown PROLONGED Verified 04/23/25 16:17 QT lorazepam AdvReac Irritable Verified 04/23/25 16:17 ENERGY DRINKS Allergy Mild ORAL Uncoded 04/23/25 15:15 SWELLING WATERMELON-LEMON CANTWELL SLURPY Allergy Mild ORAL Uncoded 04/23/25 15:15 SWELLING Review of Systems Review of Systems: All systems reviewed & are unremarkable except as noted in HPI and below PMFSH Past Medical History Medical History GERD (gastroesophageal reflux disease) Chronic constipation Early satiety Nausea and vomiting Mast cell activation syndrome Dislocation of toe of right foot Anxiety Idiopathic anaphylaxis 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 Code status: Full code. Smoking status: Never smoker Second hand tobacco smoke exposure: No Alcohol intake: current Drinks per week: 1 Alcohol use details: VERY RARE Substance use: never Substance use type: does not use Lack of Transportation: No Lack of Food: Never True Current Housing: I Have Housing Concerned About Future Housing: No Difficulty Paying Gas/Electric Bills: No Difficulty Paying for Meds: No Currently Unemployed: No Education: High School Diploma/GED Difficulty w/ Childcare or Family Care: No Living arrangements: with family Additional living arrangements comments: Lives in [place] with her . No children. She is adopted. 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 Gender identity (if verbalized by the patient): Female Sexual Orientation (if Verbalized by the Patient): Straight or Heterosexual Spiritual care concerns: No Exam Narrative: GENERAL: Well appearing, well-nourished, non-toxic, in no acute distress. HEAD: Normocephalic, atraumatic. NECK: Supple. No adenopathy, no masses. RESPIRATORY: Airway patent, respirations nonlabored. Clear to auscultation bilaterally, no rales, rhonchi, wheezing. CARDIOVASCULAR: Regular rate and rhythm without murmurs, rubs, or gallops. Peripheral pulses 2+ and equal bilaterally. ABDOMINAL: Soft, nontender, nondistended, no hepatosplenomegaly. Normoactive BS. MUSCULOSKELETAL: Moves all extremities. Minimal decreased ROM in R hand/wrist d/t pain SKIN: Warm, dry, normal color. No rashes. Intermittent bruising along patient's right forearm and wrist. NEURO: A&O X3. Speech clear. Cranial nerves II-XII intact. No ataxic movements. PSYCHIATRIC: Appropriate mood and affect. Normal interaction. Course Vital Signs Vital signs: Vital Signs Temperature 36.6 C 04/23/25 16:09 Pulse Rate 129 H 04/23/25 16:09 Respiratory Rate 16 04/23/25 16:09 Blood Pressure 113/67 04/23/25 16:09 Pulse Oximetry 100 04/23/25 16:09 Oxygen Delivery Room Air 04/23/25 16:09 Temperature 36.8 C 04/23/25 18:05 Pulse Rate 141 H 04/23/25 19:00 Respiratory Rate 20 04/23/25 19:00 Blood Pressure 140/99 H 04/23/25 19:00 Pulse Oximetry 100 04/23/25 19:00 Oxygen Delivery Room Air 04/23/25 16:09 MDM - Recheck/Abnormal Lab/Rx MDM Narrative Medical decision making narrative: Pt is a 34-year-old female who presents to the ER with right hand bruising, swelling and tenderness for the past 2 weeks. She reports she had an IV site in her right wrist at outside hospital. Patient reports she saw her primary care provider today who advised her to come to the hospital for ultrasound to rule out blood clots. She endorses decreased range of motion and shooting pain from her right wrist up her right thumb, and residential down her right forearm. Patient denies any recent fevers, excessive redness, or decreased range of motion in her right elbow. 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 Patient also endorses intermittent jaw dislocation, which she reports this happened prior to examination. She reports her symptoms are usually relieved with Valium. Labs Ordered: None necessary Imaging Ordered: R forearm Doppler US Medications Ordered: Benadryl 50 mg IM, Valium 5 mg IM, Toradol 60 mg IM Results: Patient's ultrasound indicates There was no sonographic evidence of deep vein thrombosis in the right upper extremity. Diagnosis: Right forearm bruising, hematoma Patient Education/Shared MDM: Results of imaging shared with patient. She endorses mild improvement of symptoms following medication administration, also she endorses continued if she was requesting more Benadryl. It was explained to patient that she had already received 50 mg of Benadryl and it is not appropriate for her to receive more. Her heart rate continues to be elevated, which is baseline for patient. Patient strongly advised to follow-up with her PCP as soon as possible. She will not be discharged home with any new prescriptions, but should continue treating her symptoms as she normally does at home. Strict return precautions provided. Patient verbalized understanding and is in agreement with plan. Vital signs stable at time of discharge. All questions answered. Lab Data Attestation: I reviewed the patient's lab results. Labs: Lab Results 04/23/25 Range/Units 18:10 POC Urine HCG, Qual Negative (Negative) Imaging Data Attestation: I personally reviewed and interpreted this imaging study as follows: Radiologist's impression: Impressions Venous Doppler Study 04/23/25 19:00 IMPRESSION: There was no sonographic evidence of deep vein thrombosis in the right upper extremity. 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 Follow-up with primary care provider as soon as possible for re-evaluation. Take all medications as prescribed, including regularly scheduled medications. Patient Language: [place] Citizen Prescriptions: No Action triamcinolone acetonide 0.1 % paste See Rx Instructions .ROUTE .COMPLEX Qty: 5 1RF Dose Instruction: APPLY TO DENTAL AREA AT BEDTIME, AFTER FOOD, DRINK OR ORAL HYGIENE Rx Instructions: APPLY TO DENTAL AREA AT BEDTIME, AFTER FOOD, DRINK OR ORAL HYGIENE ipratropium-albuterol 0.5 mg-3 mg(2.5 mg base)/3 mL solution for nebulization 3 ml inhalation QID Qty: 90 0RF diphenhydramine HCl [Allergy (diphenhydramine)] 25 mg capsule 25 mg PO QHS Qty: 1 0RF All Day Allergy (cetirizine) 10 mg capsule 10 mg PO DAILY PRN (Reason: allergy symptoms) Qty: 1 0RF metoclopramide HCl 5 mg tablet 5 mg PO DAILY Qty: 1 0RF prochlorperazine maleate [Compazine] 5 mg tablet 5 mg PO Q8H Qty: 1 0RF montelukast 10 mg tablet 10 mg PO DAILY Qty: 1 0RF Xolair 75 mg/0.5 mL auto-injector 75 mg subcut ONCE Qty: 0.5 0RF epinephrine 0.3 mg/0.3 mL auto-injector 0.3 mg IM ONCE PRN (Reason: Allergic Reaction) Rx Instructions: as a single dose; may repeat once famotidine 40 mg tablet 40 mg PO DAILY cyclobenzaprine 10 mg tablet 10 mg PO TID PRN (Reason: muscle spasm) Qty: 30 0RF metoclopramide HCl 10 mg tablet See Rx Instructions .ROUTE .COMPLEX Qty: 60 11RF Dose Instruction: TAKE 1 TABLET BY MOUTH TWICE DAILY NEEDED FOR NAUSEA OR VOMITING Rx Instructions: TAKE 1 TABLET BY MOUTH TWICE DAILY NEEDED FOR NAUSEA OR VOMITING diazepam 5 mg tablet 5 mg PO BID PRN (Reason: anxiety) Qty: 60 0RF trazodone 50 mg tablet 50 mg PO QHS PRN (Reason: Sleep) Qty: 90 1RF prochlorperazine maleate 10 mg tablet See Rx Instructions .ROUTE .COMPLEX Qty: 90 0RF Dose Instruction: TAKE 1 TABLET BY MOUTH EVERY 6 HOURS NEEDED FOR NAUSEA OR VOMITING Rx Instructions: TAKE 1 TABLET BY MOUTH EVERY 6 HOURS NEEDED FOR NAUSEA OR VOMITING Follow-up/Referrals: Sarath Cross MD [Primary Care Provider, Family Practice] Time of Disposition: 19:18
[2025-04-23] MEDS: diazePAM INJ (*CRX) 10 MG/2 ML SYRINGE 5 MG IM (17:47)
[2025-04-23] MEDS: KETOROLAC (*BKC) 60 MG/2 ML VIAL IM (17:48)
[2025-04-23 18:11] LABS: BEDSIDEPREGUCG Negative (Negative)
--- OUTSIDE RECORDS SUMMARY | 2025-04-23 20:02 | XMS_ITS | Clinical Summary ---
Author Organization [facility] Address [address] [place] [address] Care Team Providers Care Lead Manufacturing Engineer Name Role Phone Shannan Maldonado MD Primary Care Provider [phone] Source Comments [facility],non-general [facility] Affiliates and Associated Physician Practices is amultiple site organization consisting of ambulatory clinics and hospital sitesin [place], [place], [place] and [place]. This disclosure is being madepursuant to the Care Everywhere program and may not contain all information available regarding this patient. Last updated 18.[facility] Allergies Active Allergy Reactions Criticality Noted Date [...] fluticasone propionate (FLONASE) 50 MCG/ACT nasal spray [place] 2 sprays into each nostril once daily [...] tablet by mouth as needed Active Multiple Vitamins-[place] als (CENTRUM PO) Take 1 tablet by [...] 06/13/2019 Assessment & Plan (06/13/2019 10:22 AM DIETARY SERVER): POTS patients commonly have mast cell disorders. [...] 2015 Assessment & Plan (06/13/2019 10:19 AM DIETARY SERVER): Would avoid high osmotic salt loads/salt tablets. Ok to just liberalize salt intake and eat banannas for potassium Postural orthostatic tachycardia syndrome 2015 Assessment & Plan (09/05/2019 10:06 AM DIETARY SERVER): Her symptoms are well-controlled today. She dislocated [...] intake. Assessment & Plan (06/13/2019 10:47 AM DIETARY SERVER): Postural orthostatic tachycardia syndrome (POTS) is a [...] 05/21/2010 Assessment & Plan (09/05/2019 10:07 AM DIETARY SERVER): She had a routine screening echo today. Her aortic root today does not appear dilated by my view. Will await final read and call her if this is abnormal. Otherwise, q2yr echo. Assessment & Plan (06/13/2019 10:18 AM DIETARY SERVER): The patient was diagnosed with EDS several years ago and has not had an echocardiogram in 2 years # will need screening echocardiogram for aorta # low intensity exercise Immunizations Immunization Administration Dates Next Due INFLUENZA [...] VACCINE (1 - 3-dose SCDM series) 2018 DEPRESSION SCREENING 07/03/2024 COVID-19 VACCINE (1 - 2023-2 5 season) 2025 INFLUENZA VACCINE (#1) 2025 04/06/2019 ZOSTER VACCINE [...] ve Non-react hayder 02/28/2019 4:05 PM CDT [facility] Comment: Neither HIV-1 p24 Antigen nor HIV-1/HIV-2 Antibodies are detected. Blood BLOOD SPECIMEN / Unknown Venipuncture / Unknown 02/28/2019 1:57 PM CDT 02/28/2019 3:22 PM CDT Abel Barrientos MD LAB - HEMATOLOGY [place] [address], [facility] [phone] from Last 3 Months or Most Recently Relevant to Health Maintenance Insurance [facility] * Guarantor: ROSANGELA KOENIG Account Type Relation to Patient Date of Phone Billing Address Personal/Family Spouse Advance Directives * Full Code (Latest Code Status on File) Date Activated Date Inactivated Comments 02/28/2019 11:41 PM 03/02/2019 12:34 PM * Full Code Date Activated Date Inactivated Comments 02/28/2019 8:46 PM 02/28/2019 11:41 PM Care Teams Lead Manufacturing Engineer Relationship Specialty Start Date End Date Shannan Maldonado MD [address] [place] [address] PCP - General Family Medicine 03/22/16
--- OUTSIDE RECORDS SUMMARY | 2025-04-23 20:02 | XMS_ITS | Encounter Summary ---
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 MEDICAL Gender Identity Female 07/01/2022 7:31 PM BACTERIOLOGIST MEDICAL Sexual Orientation Not on file documented as of this encounter Plan of Treatment Not on file documented as of this encounter Procedures Procedure Name Priority Date/Time Associated Diagnosis Comments SCAN - LABS 10/28/2021 documented in this encounter Results * SCAN - LABS (10/28/2021) us Provider Scanning Final Result documented in this encounter Visit Diagnoses Not on filedocumented in this encounter Care Teams Orthotic Aide Relationship Specialty Start Date End Date Shannan Maldonado MD PCP - General 09/07/19 documented as of this encounter
--- OUTSIDE RECORDS SUMMARY | 2025-04-23 20:02 | XMS_ITS | Clinical Summary ---
Author Organization [facility] Address [address] [place] [address] Care Team Providers Care Pullman Clerk Name Role Phone Shannan Maldonado MD Primary Care Provider [phone] Celio Jacques MD Unavailable Allergies Active Allergy [...] Cancer Screening with HPV 2021 COVID-19 Vaccine (2024- season) 2025 10/07/2021, 03/30/2021, 09/23/2020, Additional history exists Influenza Adult (#1) 2025 05/05/2021, 04/26/2019, 04/06/2019, Additional history exists DTaP, Tdap and Td Vaccines (2 - Td or Tdap) 07/10/2027 07/10/2017 Pneumococcal Vaccine: Pediatrics (0 to 5 Years) and At-Risk Patients (6 to 49 Years) Aged Out 02/25/2020 No longer eligible based on patient's age to complete this topic Hepatitis A Vaccines Aged Out No long er eligible based [...] this topic Medical Devices Implanted Type Area Senior Partner Device Identifier Shelf Expiration Date Model / Serial / Lot Staple Bone [id number] m 2m - [id number] Implanted:Qty: 1 on 02/16/2024 by Pranay Dejesus DPM at [facility] [employer] Right: Foot [employer] 06/01/2027 [id number] / / [id number] Wire Kwchad .045in 4in - [id number] Implanted:Qty: 1 on 03/17/2023 by Pranay Dejesus DPM at [facility] Wire Right: Toe [employer] [id number] / / Description:Right second toe Insurance [facility] Care Teams Pullman Clerk Relationship Specialty Start Date End Date Shannan Maldonado MD PCP - General 05/06/16 Celio Jacques MD [address] [address] [place] [address] CARDIOLOGY 03/14/23
--- OUTSIDE RECORDS SUMMARY | 2025-04-23 20:03 | XMS_ITS | Clinical Summary ---
Author Organization [facility] Geena Sue Extdamian nsion Address [address] [facility] [place] [address] Care Team Providers Care Certified Nuclear Medicine Technologist Name Role Phone Shannan Maldonado MD Primary Care Provider [phone] Allergies Active Allergy Reactions Criticality Noted Date Comments Adhesive Blisters,Rash Medium 06/13/2019 Reaction: Rash, Blisters, Amoxicillin-Pot Clavulanate Itching Low 09/05/2024 Azithromycin Other (See comments),Stomach upset,Vomiting,Unknow n High 05/21/2010 Stomach/GI Upset Clarithromycin Anaphylaxis,Nausea & Vomiting,Swelling,Unk nown High 05/21/2010 Swelling Clavulanic Acid Stomach upset High 10/07/2020 Stomach/GI Upset Duloxetine Fatigue,Itching,Othe r (See comments),Unknown Low 08/13/2010 Itching adverse reaction Hydrocodone Anaphylaxis,Hives,It c stiven,Unknown High 01/13/2020 Itching Hydromorphone Angioedema,Hives,Itc h ing,Other (See comments),Palpitation s,Unknown High 02/28/2019 Hives Lorazepam Other (See comments) 02/09/2024 Weird out of body Meperidine Nausea & Vomiting,Nausea And Vomiting,Stomach upset,Vomiting,Unknow n High 05/21/2010 Stomach/GI Upset Nuts Anaphylaxis High 03/17/2022 Ondansetron Palpitations,Other (See comments),Stomach upset High 10/07/2020 Prolonged qt Stomach/GI Upset Ondansetron Hcl Unknown 12/26/2011 Peanut Anaphylaxis High 03/17/2022 Peanut Butter Flavor Angioedema High 10/24/2021 Tree Nut Anaphylaxis High 09/30/2024 Tree Nuts Swelling Medium 10/24/2021 Medications pseudoephedri ne ER (SUDAFED) 120 mg 12 hr tabletIndicat ions:Nasal Congestion Take 1 tablet (120 mg total) by mouth every 12 (twelve) hours as needed for congestion Active traZODone (DESYREL) 50 mg tablet Take 1 tablet (50 mg total) by mouth nightly as needed for sleep Active triamcinolone (KENALOG) 0.1 % paste Apply 0.25 inches to teeth 2 (two) times a day as needed for mucositis Active prochlorperaz ine (COMPAZINE) 10 mg tablet Take 1 tablet (10 mg total) by mouth every 6 (six) hours as needed for nausea or vomiting Active cyclobenzapri ne (FLEXERIL) 10 mg tablet Take 1 tablet (10 mg total) by mouth 2 (two) times a day Active omalizumab (Xolair) 300 mg/2 mL syringe Inject 2 mL (300 mg total) under the skin every 14 (fourteen) days Active albuterol HFA (PROVENTIL HFA,VENTOLIN HFA,PROAIR HFA) 90 mcg/actuation inhaler Inhale 1 puff every 4 (four) hours as needed for shortness of breath or wheezing Active acetaminophen -aspirin-caff eine (EXCEDRIN MIGRAINE) 250-250-65 mg per tablet Take 1 tablet by mouth every 6 (six) hours as needed Active ipratropium-a lbuteroL (DUO-NEB) 0.5-2.5 mg/3 mL nebulizer solutionIndic ations:SOB (shortness of breath) Take 3 mL by nebulization every 6 (six) hours 180 mL 3 10/01/19 25 Active EPINEPHrine (EpiPen) 0.3 mg/0.3 mL auto-injectio n syringeIndica tions:Anaphyl axis Inject 0.3 mL (0.3 mg total) into the muscle as instructed as needed for anaphylaxis for up to 3 doses 3 each 03/25/20 25 Active famotidine (PEPCID) 40 mg tablet Take 1 tablet (40 mg total) by mouth 2 (two) times a day 60 tablet 03/25/20 25 Active montelukast (SINGULAIR) 10 mg tablet Take 1 tablet (10 mg total) by mouth nightly 30 tablet 11 03/25/20 25 026 Active cetirizine (ZyrTEC) 10 mg tablet Take 2 tablets (20 mg total) by mouth 2 (two) times a day 120 tablet 03/25/20 25 Active diazePAM (VALIUM) 5 mg tablet Take 1 tablet (5 mg total) by mouth every 12 (twelve) hours as needed for muscle spasms or anxiety Active metoclopramid e (REGLAN) 10 mg tablet Take 1 tablet (10 mg total) by mouth 2 (two) times a day as needed (nausea / vomiting) Active diphenhydrAMI NE (BENADRYL) 25 mg capsule Take 2 tablet/capsule (50 mg total) by mouth every 6 (six) hours as needed for itching or allergies for up to 28 doses 28 tablet/caps ule 04/05/20 25 Active predniSONE (DELTASONE) 20 mg tabletIndicat ions:autoimmu ne disease,hyper sensitivity drug reaction Take 2 tablets (40 mg) by mouth daily for 7 days, THEN 1 tablet (20 mg) daily for 7 days, THEN 0.5 tablets (10 mg) daily for 7 days. 25 tablet 04/06/20 25 025 Active morphine (MSIR) 15 mg tablet Take 1 tablet (15 mg total) by mouth every 6 (six) hours as needed for pain for up to 15 doses 15 tablet 04/05/20 25 Active dupilumab (Dupixent Pen) 300 mg/2 mL pen injectorIndic ations:CIU Inject 2 mL (300 mg total) under the skin every 14 (fourteen) days 4 mL 11 04/23/20 25 Active cetirizine (ZyrTEC) 10 mg tablet Take 2 tablets (20 mg total) by mouth 2 (two) times a day 025 Discontinued diazePAM (VALIUM) 5 mg tablet Take 1 tablet (5 mg total) by mouth 3 (three) times a day as needed for anxiety 20 tablet 02/17/20 21 025 Discontinued famotidine (PEPCID) 40 mg tablet Take 1 tablet (40 mg total) by mouth 2 (two) times a day 09/18/19 025 Discontinued metoclopramid e (REGLAN) 10 mg tablet Take 1 tablet (10 mg total) by mouth daily 09/28/19 025 Discontinued ibuprofen (ADVIL,MOTRIN ) 600 mg tablet 1 tablet (600 mg total) every 6 (six) hours as needed 10/08/19 21 025 Discontinued(S top Taking at Discharge) montelukast (SINGULAIR) 10 mg tablet Take 1 tablet (10 mg total) by mouth nightly 30 tablet 11 02/03/20 025 Discontinued hydrOXYzine (ATARAX) 25 mg tablet Take 1 tablet (25 mg total) by mouth every 6 (six) hours as needed for itching, allergies or anxiety 25 tablet 02/20/20 25 025 Discontinued(S top Taking at Discharge) cycloSPORINE modified (GENGRAF,NEOR AL) 100 mg capsule Take 2 capsules (200 mg total) by mouth daily 60 capsule 3 02/29/20 025 Discontinued EPINEPHrine (EpiPen) 0.3 mg/0.3 mL auto-injectio n syringeIndica tions:Anaphyl axis Inject 0.3 mL (0.3 mg total) into the muscle as instructed as needed for anaphylaxis for up to 1 day 1 each 03/10/20 025 Discontinued budesonide-fo rmoteroL (SYMBICORT) 80-4.5 mcg/actuation inhaler Inhale 2 puffs 2 (two) times a day Rinse mouth with water after use. Do not swallow. 10.2 g 1 03/25/20 025 Discontinued(S top Taking at Discharge) predniSONE (DELTASONE) 20 mg tabletIndicat ions:autoimmu ne disease,hyper sensitivity drug reaction Take 2 tablets (40 mg) by mouth daily for 7 days, THEN 1 tablet (20 mg) daily for 7 days, THEN 0.5 tablets (10 mg) daily for 7 days. 25 tablet 03/25/20 25 025 Discontinued diphenhydrAMI NE (BENADRYL) 25 mg capsule Take 1 tablet/capsule (25 mg total) by mouth 4 (four) times a day as needed for itching or allergies 30 capsule 03/25/20 025 Discontinued morphine (MSIR) 15 mg tablet Take 1 tablet (15 mg total) by mouth every 6 (six) hours as needed for pain for up to 7 days 15 tablet 03/25/20 025 Discontinued naloxone (NARCAN) 4 mg/actuation spray,non-aer osol Administer 1 spray into affected nostril(s) as needed for opioid reversal Call 911. Administer a single spray in one nostril. Repeat every 3 minutes as needed if no or minimal response. 2 each 2 03/25/20 025 Discontinued predniSONE (DELTASONE) 10 mg tabletIndicat ions:Mast cell activation syndrome,Idio pathic urticaria Take 1 tablet (10 mg) by mouth daily for 7 days 7 tablet 03/26/20 025 Discontinued hydroxychloro quine (PLAQUENIL) 200 mg tabletIndicat ions:Chronic Idiopathic Urticaria,Urt icaria Treatment Adjunct Take 1 tablet (200 mg total) by mouth daily 90 tablet 1 03/26/20 025 Discontinued Hospital, Clinic, or Other Facility Administered Medication Ordered Dose Route Frequency Start Date End Date Status dupilumab (DUPIXENT) pen injector 300 mgIndications:Urticaria 300 mg subQ Every 14 days 03/26/2025 Active dupilumab (DUPIXENT) pen injector 300 mgIndications:Asthma, unspecified asthma severity, unspecified whether complicated, unspecified whether persistent,Allergic rhinitis, unspecified seasonality, unspecified trigger 300 mg subQ Once 04/09/2025 04/09/2025 Ended dupilumab (DUPIXENT) pen injector 300 mgIndications:Urticaria 300 mg subQ Once 04/23/2025 04/23/2025 E nded Active Problems Problem Noted Date Diagnosed Date 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 Allergic reaction to food, initial encounter Dislocation [...] Encounters Date Type Department Care Team Description 04/23/2025 11:10 AM CDT Clinical Support [facility] [address] [place] [phone] Urticaria (Primary Dx) 04/09/2025 11:30 AM CDT Office Visit [facility] [address] [place] [phone] Oneyda Vaughan NP Mast cell activation syndrome (Primary Dx) 04/09/2025 11:00 AM CDT Clinical Support [facility] [address] [place] [phone] Asthma, unspecified asthma severity, unspecified whether complicated, unspecified whether persistent (Primary Dx); Allergic rhinitis, unspecified seasonality, unspecified trigger 04/02/2025 1:18 PM CDT - 04/05/2025 3:37 PM CDT Hospital Encounter [address] [address] Arnold Tavera, Jose Owen MD Okeke, Richard Kenechukwu, MD Mast cell activation (Primary Dx); Allergic reaction, initial encounter; Dislocation of temporomandibular joint, initial encounter Discharge Disposition: Discharge to home or self care 03/26/2025 3:00 PM CDT Clinical Support [facility] [address] [place] [phone] Urticaria (Primary Dx) 03/26/2025 2:30 PM CDT Office Visit [facility] [address] [place] [phone] Oneyda Vaughan NP Idiopathic urticaria (Primary Dx); 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 Orders Only [facility] [address] [place] [phone] Oneyda Vaughan NP Urticaria (Primary Dx); Mast cell activation syndrome; Idiopathic urticaria 03/26/2025 Telephone [facility] [address] [place] [address] [address] [place] [phone] Ame Pulido RN 03/25/2025 Telephone [facility] Pediatric Allergy and Pulmonology [facility] 2nd [place] [address] [place] [address] Kvng Chacon MD 03/19/2025 1:27 PM CDT - 03/25/2025 2:45 PM CDT Hospital Encounter [address] [address] Nabil Jean MD Fasick, DO Tia Burch Dany Jose, MD Yuan, MD Mercy Dawn Saim, DO [place]ke[place], MD Sil Humphreys Akash, MD Allergic reaction, initial encounter (Primary Dx); Tachycardia; Mast cell activation syndrome; Dislocation of temporomandibular joint, subsequent encounter; Allergic reaction, subsequent encounter Discharge Disposition: Discharge to home or self care 03/11/2025 10:00 AM CDT Therapy [facility] Otolaryngology [address] [place] [address] 11[address] [place] [address] [place] [address] Janine Machado SLP Dysphonia (Primary Dx); Sensation of swollen throat 03/10/2025 11:00 AM CDT Office Visit [facility] [address] [place] [address] [address] [place] [phone] Oneyda Vaughan NP Mast cell activation syndrome (Primary Dx); Allergic reaction, subsequent encounter; Idiopathic urticaria; High risk medication use 03/10/2025 Telephone [facility] [address] [place] [address] [address] [place] [address] Oneyda Vaughan NP 02/28/2025 2:30 PM CDT Office Visit [facility] Medicine Allergy and Immunology [address] [facility] [address] Building [address] [place] [phone] Susan Suarez MD Mast cell activation syndrome (Primary Dx); Allergic reaction, initial encounter; Idiopathic urticaria 02/27/2025 3:37 PM CDT - 02/27/2025 10:19 PM CDT [facility] Emergency Department [address] [place] [phone] Abhay Velez MD Mecker, Robert W. Jr., MD Allergic reaction, initial encounter (Primary Dx); Mast cell activation Discharge Disposition: Discharge to home or self care 02/24/2025 11:00 AM CDT Office Visit [facility] [address] [place] [address] [place] [phone] Oneyda Vaughan NP Allergic reaction, initial encounter (Primary Dx); Idiopathic urticaria; High risk medication use; Mast cell activation syndrome; Allergic reaction, subsequent encounter 02/24/2025 Orders Only [facility] [address] [place] [address] [place] [phone] Oneyda Vaughan NP Allergic reaction, initial encounter (Primary Dx); Idiopathic urticaria 02/21/2025 9:34 AM CDT - 02/21/2025 2:38 PM CDT [facility] Emergency Department [address] [place] [phone] Allergic reaction, initial encounter (Primary Dx); Sensation of swollen throat; Jaw dislocation, initial encounter Discharge Disposition: Discharge to home or self care 02/20/2025 1:53 PM CDT - 02/20/2025 7:05 PM CDT [facility] Emergency Department [address] [place] [phone] Christine Greco MD Allergic reaction, initial encounter (Primary Dx); Sensation of swollen throat; Hypokalemia Discharge Disposition: Discharge to home or self care 02/18/2025 10:23 PM CDT - 02/19/2025 12:35 AM CDT [facility] Emergency Department [address] [place] [phone] Deisy Blackwell MD Pruritus (Primary Dx); Sinus tachycardia; Sensation of swollen throat; Microcytic anemia Discharge Disposition: Discharge to home or self care 02/18/2025 11:00 AM CDT Office Visit [facility] [address] [place] [address] [place] [phone] Oenyda Vaughan NP Idiopathic urticaria (Primary Dx); High risk medication use; Mast cell activation syndrome 02/17/2025 Telephone [facility] [address] [place] [address] [place] [phone] Ame Pulido RN 02/16/2025 12:37 PM CDT - 02/16/2025 5:30 PM CDT Emergency [facility] Emergency Department [address] [place] [phone] Ferdinand Rivera DO Allergic reaction, initial encounter (Primary Dx); Dislocation of mandible, initial encounter Discharge Disposition: Discharge to home or self care 02/11/2025 9:00 AM CDT Therapy [facility] Medicine Otolaryngology [address] [place] [address] 11[address] [place] [address] [place] [phone] Janine Machado SLP Dysphonia (Primary Dx); Sensation of swollen throat 02/04/2025 11:00 AM CDT Office Visit [facility] [address] [place] [address] [place] [phone] Oneyda Vaughan NP High risk medication use (Primary Dx); Idiopathic urticaria; Mast cell activation syndrome; Allergic reaction, subsequent encounter 02/03/2025 Telephone [facility] [address] [place] [address] [place] [phone] Ame Pulido RN 01/31/2025 10:18 PM CDT - 02/02/2025 1:38 PM CDT Hospital Encounter [facility] [address] [place] [phone] Trell Alford Jr., MD Pickens, Dayday Nicholson, MD Acosta, Chidi Golden MD Allergic reaction, initial encounter (Primary Dx); Hypokalemia; Tachycardia Discharge Disposition: Discharge to home or self care from Last 3 Months Immunizations Immunization Administration Dates Next Due Flucelvax Influenza Quad 07/13/2018 Influenza, Quadrivalent, Karie l Culture-based MDCK, Antibiotic Free, Intramuscular 07/13/2018 Influenza, Quadrivalent, Spl it, Intramuscular 04/26/2019 Influenza, Quadrivalent, Spl it, Preservative Free, Intramuscular 05/05/2021 Influenza, Trivalent, Cell Culture-based MDCK, Preservative Free, Antibiotic Free, Intramuscular 04/03/2022 Influenza, Trivalent, IM (MDV) 9,05/11/2017,04/14/2014,04/06 Influenza, Unspecified 04/06/2019 MMR 10/21/1996,12/22/1992 Pfizer SARS-CoV-2 Monovalent Vaccination (12+ Yrs) PURPLE 08/03/2023,08/03/2023,10/07/2021,10/07,10/07/2021,03/30/2021,09/23/2020 ,09/01/2020 Pfizer Sars-Cov-2 Bivalent V accination (12+ YRS) 04/03/2022 Pneumococcal Polysaccharide PPV23 02/25/2020 Tdap 07/10/2017 Surgical History Surgery Date Site/Laterality Comments SD BIOPSY MUSCLE SUPERFICIAL Biopsy Muscle - 2006 (Added by TW Conv) KNEE SURGERY Knee Surgery - ligament reconstruction 10/2009 (Added by TW Conv) SD RELEASE TARSAL TUNNEL Decompression Tarsal Tunnel Release Left Foot - (Added by TW Conv) SD TONSILLECTOMY PRIMARY/SECONDARY <AGE 12 Tonsillectomy - (Added by TW Conv) WISDOM TOOTH EXTRACTION Oral Surgery Tooth Extraction [place] Tooth - (Added by TW Conv) SD COLONOSCOPY FLX DX W/LEX J SPEC WHEN PFRMD Colonoscopy - (Added by TW Conv) SD DILATION & CURETTAGE DX&/ THER NONOBSTETRIC Dilation And Curettage - (Added by TW Conv) CARPAL TUNNEL RELEASE Bilateral 2016, 2021 Medical History Medical History Date Comments Personal [...] often do you attend chur ch or muslim services? Never 09/24/2024 Do you belong to any clubs o r organizations such as sabianist groups, unions, fraternal or athletic groups, or [...] 04/04/2025 How often do you attend chur ch or muslim services? More than 4 times per year 04/04/2025 Do you belong to any clubs o r organizations such as sabianist groups, unions, fraternal or athletic groups, or [...] and heating? Not hard at all 04/04/2025 [facility] - Occupational Stress Questionnaire Answer Date Recorded [...] health care facility (including now)? 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 Not on file Not on file Not on file Obstetrics History Last Filed Vital Signs Vital Sign Reading Time Taken Comments Blood Pressure 134/92 04/09/2025 10:53 AM CDT Pulse 120 04/09/2025 10:53 AM CDT Temperature 36.6 C (97.9 F) 04/09/2025 10:53 AM CDT Respiratory Rate 17 04/05/2025 8:04 AM CDT Oxygen Saturation 98% 04/09/2025 10:53 AM CDT Inhaled Oxygen Concentration - - Weight 99.8 kg (220 lb) 04/09/2025 10:53 AM CDT Height 170.2 cm (5' 7) 04/09/2025 10:53 AM CDT Body Mass Index 34.46 04/09/2025 10:53 AM CDT Plan of Treatment Health Maintenance Due Date Last Done Comments Cervical Cancer Screening 1991 Hepatitis C Screening 1991 Varicella Vaccines (1 of 2 - 13+ 2-dose series) 2004 Hepatitis B Screening 2009 Regular Well Visit/Exam 18-64 2009 HPV Vaccines (1 - 3-dose SCD M series) 2018 Pneumococcal vaccine <65 (2 of 2 - PCV) 02/24/2021 02/25/2020 Covid-19 Vaccine (2024-2 6 season) 2025 08/03/2023, 08/03/2023, 04/03/2022, Additional history exists Influenza Vaccine (#1) 2025 , 05/05/2021, 04/26/2019, Additional history exists Depression Screening 04/02/2026 04/02/2025, 04/02/2025, 03/19/2025, Additional history exists DTaP/Tdap/Td Vaccine (2 - Td or Tdap) 07/10/2027 07/10/2017 Procedures Procedure Name Priority Date/Time Associated Diagnosis Comments EGFR Routine 04/05/2025 6:24 AM CDT DIFFERENTIAL AUTO Routine 04/05/2025 6:2 4 AM CDT CBC WITH AUTO DIFFERENTIAL Routine 04/05/2025 6:24 AM CDT BASIC METABOLIC PANEL Routine 04/05/2025 6:24 AM CDT EGFR Routine 04/04/2025 4:11 AM CDT DIFFERENTIAL AUTO Routine 04/04/2025 4:1 1 AM CDT CBC WITH AUTO DIFFERENTIAL Routine 04/04/2025 4:11 AM CDT BASIC METABOLIC PANEL Routine 04/04/2025 4:11 AM CDT MANUAL DIFFERENTIAL Routine 04/03/2025 2 :33 AM CDT EGFR Routine 04/03/2025 2:33 AM CDT CBC WITH AUTO DIFFERENTIAL Routine 04/03/2025 2:33 AM CDT BASIC METABOLIC PANEL Routine 04/03/2025 2:33 AM CDT SEPSIS LACTATE WITH REFLEX Timed 04/02/2025 10:33 PM CDT SEPSIS LACTATE WITH REFLEX Timed 04/02/2025 7:29 PM CDT URINALYSIS, MICROSCOPIC ONLY STAT 04/02/2025 3:22 PM CDT URINALYSIS AND REFLEX TO MICROSCOPIC AND CULTURE STAT 04/02/2025 3:22 PM CDT SEPSIS LACTATE WITH REFLEX STAT 04/02/2025 3:17 PM CDT MANUAL DIFFERENTIAL STAT 04/02/2025 1 :40 PM CDT EGFR STAT 04/02/2025 1:40 PM CDT COMPREHENSIVE METABOLIC PANEL STAT 04/02/2025 1:40 PM CDT CBC WITH AUTO DIFFERENTIAL STAT 04/02/2025 1:40 PM CDT XR CHEST 1 VIEW ED 04/02/2025 1:39 PM CDT ECG 12-LEAD Routine 04/02/2025 1:21 PM CDT EGFR Routine 03/25/2025 2:46 AM CDT DIFFERENTIAL AUTO Routine 03/25/2025 2:4 6 AM CDT MAGNESIUM Routine 03/25/2025 2:46 AM CDT COMPREHENSIVE METABOLIC PANEL Routine 03/25/2025 2:46 AM CDT CBC WITH AUTO DIFFERENTIAL Routine 03/25/2025 2:46 AM CDT EGFR Routine 03/24/2025 10:48 AM CDT DIFFERENTIAL AUTO Routine 03/24/2025 10:48 AM CDT MAGNESIUM Routine 03/24/2025 10:48 AM CDT COMPREHENSIVE METABOLIC PANEL Routine 03/24/2025 10:48 AM CDT CBC WITH AUTO DIFFERENTIAL Routine 03/24/2025 10:48 AM CDT EGFR Routine 03/23/2025 8:52 AM CDT DIFFERENTIAL AUTO Routine 03/23/2025 8:5 2 AM CDT COMPREHENSIVE METABOLIC PANEL Routine 03/23/2025 8:52 AM CDT CBC WITH AUTO DIFFERENTIAL Routine 03/23/2025 8:52 AM CDT EGFR Routine 03/21/2025 5:17 AM CDT DIFFERENTIAL AUTO Routine 03/21/2025 5:1 7 AM CDT MAGNESIUM Routine 03/21/2025 5:17 AM CDT PHOSPHORUS Routine 03/21/2025 5:17 AM CDT COMPREHENSIVE METABOLIC PANEL Routine 03/21/2025 5:17 AM CDT CBC WITH AUTO DIFFERENTIAL Routine 03/21/2025 5:17 AM CDT CRITICAL CARE Routine 03/20/2025 8:00 PM CDT Dislocation of temporomandibular joint, subsequent encounter CRITICAL CARE Routine 03/20/2025 4:59 PM CDT TRYPTASE Routine 03/20/2025 2:34 PM CDT EGFR Routine 03/20/2025 8:44 AM CDT BASIC METABOLIC PANEL Routine 03/20/2025 8:44 AM CDT FOLATE Routine 03/20/2025 8:44 AM CDT VITAMIN B12 Routine 03/20/2025 8:44 AM CDT ECG 12-LEAD STAT 03/20/2025 8:26 AM CDT IRON PROFILE W/ IBC Timed 03/20/2025 6 :45 AM CDT EGFR Timed 03/20/2025 6:45 AM CDT FERRITIN Timed 03/20/2025 6:45 AM CDT DIFFERENTIAL AUTO Timed 03/20/2025 6:4 5 AM CDT COMPREHENSIVE METABOLIC PANEL Timed 03/20/2025 6:45 AM CDT CBC WITH AUTO DIFFERENTIAL Timed 03/20/2025 6:45 AM CDT MAGNESIUM Timed 03/20/2025 6:45 AM CDT PHOSPHORUS Timed 03/20/2025 6:45 AM CDT ECG 12-LEAD STAT 03/19/2025 4:36 PM CDT EGFR STAT 03/19/2025 2:09 PM CDT DIFFERENTIAL AUTO STAT 03/19/2025 2:0 9 PM CDT COMPREHENSIVE METABOLIC PANEL STAT 03/19/2025 2:09 PM CDT CBC WITH AUTO DIFFERENTIAL STAT 03/19/2025 2:09 PM CDT MICROSCOPIC EXAMINATION Routine 03/06/20 9:36 AM CDT URINALYSIS AND REFLEX TO MICROSCOPIC Routine 03/06/2025 9:36 AM CDT High risk medication use COMPREHENSIVE METABOLIC PANEL Routine 03/06/2025 9:36 AM CDT High risk medication use CBC WITH AUTO DIFFERENTIAL Routine 03/06/2025 9:36 AM CDT High risk medication use CYCLOSPORINE A LEVEL, TROUGH Routine 03/06/2025 9:36 AM CDT High risk medication use URINALYSIS AND REFLEX TO MICROSCOPIC AND CULTURE STAT 02/20/2025 4:44 PM CDT XR MANDIBLE 4 OR MORE VIEWS ED 02/20/2025 4:14 PM CDT XR NECK SOFT TISSUE ED 02/20/2025 4 :14 PM CDT BLOOD SMEAR REVIEW STAT 02/20/2025 2: 07 PM CDT EGFR STAT 02/20/2025 2:07 PM CDT DIFFERENTIAL AUTO STAT 02/20/2025 2:0 7 PM CDT COMPREHENSIVE METABOLIC PANEL STAT 02/20/2025 2:07 PM CDT CBC WITH AUTO DIFFERENTIAL STAT 02/20/2025 2:07 PM CDT EGFR STAT 02/18/2025 10:05 PM CDT DIFFERENTIAL AUTO STAT 02/18/2025 10:05 PM CDT COMPREHENSIVE METABOLIC PANEL STAT 02/18/2025 10:05 PM CDT CBC WITH AUTO DIFFERENTIAL STAT 02/18/2025 10:05 PM CDT ECG 12-LEAD Routine 02/18/2025 10:00 PM CDT EGFR STAT 02/16/2025 1:22 PM CDT URINALYSIS, MICROSCOPIC ONLY STAT 02/16/2025 1:22 PM CDT DIFFERENTIAL AUTO STAT 02/16/2025 1:2 2 PM CDT COMPREHENSIVE METABOLIC PANEL STAT 02/16/2025 1:22 PM CDT CBC WITH AUTO DIFFERENTIAL STAT 02/16/2025 1:22 PM CDT URINALYSIS AND REFLEX TO MICROSCOPIC AND CULTURE STAT 02/16/2025 1:22 PM CDT MAGNESIUM Routine 02/02/2025 3:32 AM CDT EGFR Routine 02/02/2025 3:32 AM CDT DIFFERENTIAL AUTO Routine 02/02/2025 3:3 2 AM CDT CBC WITH AUTO DIFFERENTIAL Routine 02/02/2025 3:32 AM CDT BASIC METABOLIC PANEL Routine 02/02/2025 3:32 AM CDT SD CLOSED TX TEMPOROMANDIBULAR DISLC COMP 1ST/SBSQ Routine 02/01/2025 1:11 PM CDT URINALYSIS, MICROSCOPIC ONLY Routine 02/01/2025 10:15 AM CDT DRUGS OF ABUSE SCREEN, URINE WITH REFLEX CONFIRMATION Routine 02/01/2025 10:15 AM CDT URINALYSIS AND REFLEX TO MICROSCOPIC AND CULTURE Routine 02/01/2025 10:15 AM CDT ECG 12-LEAD Routine 01/31/2025 11:54 PM CDT EGFR STAT 01/31/2025 10:28 PM CDT DIFFERENTIAL AUTO STAT 01/31/2025 10:28 PM CDT COMPREHENSIVE METABOLIC PANEL STAT 01/31/2025 10:28 PM CDT CBC WITH AUTO DIFFERENTIAL STAT 01/31/2025 10:28 PM CDT from Last 3 Months Results * eGFR (04/05/2025 6:24 AM CDT) eGFR >90 >=60 mL/min/1. 73 [...] Current interpretive data was last reviewed 2021. Blood 04/05/2025 6:24 AM CDT 04/05/2025 7:20 AM CDT us Melany Conte NP LAB BLOOD ORDERABLES Final Re sult [facility] [address] [facility] [place] [address] * (ABNORMAL) Differential, auto (04/05/2025 6:24 AM CDT) Neutrophil abs 19.80(H) 1.50 - 6.50 K/cumm Imm gran abs 0.45(H) 0.00 - 0.10 K/cumm [facility] Lymphocyte abs 2.46 0.80 - 3.30 K/cumm [facility] Monocyte abs 1.51(H) 0.20 - 0.80 K/cumm [facility] Eosinophil abs 0.00 0.00 - 0.50 K/cumm [facility] Basophil abs 0.05 0.00 - 0.10 K/cumm [facility] Neutrophil pct 81.6 % [facility] Comment: Interpretive Data Percent cell count reference ranges are not reported, since discordance with absolute values may lead to misinterpretation of CBC data. Current Interpretive Data was last revised on 2017. Imm gran pct 1.9 % [facility] Comment: Interpretive Data Percent cell count reference ranges are not reported, since discordance with absolute values may lead to misinterpretation of CBC data. Current Interpretive Data was last revised on 2017. Lymphocyte pct 10.1 % [facility] Comment: Interpretive Data Percent cell count reference ranges are not reported, since discordance with absolute values may lead to misinterpretation of CBC data. Current Interpretive Data was last revised on 2017. Monocyte pct 6.2 % [facility] Comment: Interpretive Data Percent cell count reference ranges are not reported, since discordance with absolute values may lead to misinterpretation of CBC data. Current Interpretive Data was last revised on 2017. Eosinophil pct 0.0 % [facility] Comment: Interpretive Data Percent cell count reference ranges are not reported, since discordance with absolute values may lead to misinterpretation of CBC data. Current Interpretive Data was last revised on 2017. Basophil pct 0.2 % [facility] Comment: Interpretive Data Percent cell count reference ranges are not reported, since discordance with absolute values may lead to misinterpretation of CBC data. Current Interpretive Data was last revised on 2017. Blood 04/05/2025 6:24 AM CDT 04/05/2025 7:20 AM CDT us Melany Conte NP LAB BLOOD ORDERABLES Final Re sult [facility] [address] [facility] [place] [address] * (ABNORMAL) CBC with auto differential (04/05/2025 6:24 AM CDT) [facility] WBC 24.27(H) 3.80 - 9.90 K/cumm Hgb 11.9 11.9 - 15.5 g/dL [facility] Hct 39.9 35.6 - 45.5 % [facility] Plt 427(H) 150 - 400 K/cumm [facility] MPV 9.9 9.1 - 12.3 fL [facility] RBC 4.84 3.90 - 5.20 M/cumm [facility] MCV 82.4 81.3 - 96.4 fL [facility] MCH 24.6(L) 27.1 - 33.3 pg [facility] MCHC 29.8(L) 32.3 - 35.7 g/dL [facility] RDW CV 15.6(H) 11.1 - 14.9 % [facility] RDW SD 46.5 35.7 - 48.1 fL [facility] NRBC abs 0.00 0.00 - 0.01 K/cumm [facility] Blood 04/05/2025 6:24 AM CDT 04/05/2025 7:20 AM CDT Melany Conte NP LAB BLOOD ORDERABLES Final Re sult [facility] [address] [facility] [place] [address] * Basic metabolic panel (04/05/2025 6:24 AM CDT) [facility] Sodium 137 135 - 145 mmol/L Potassium, pl 3.9 3.3 - 4.9 mmol/L [facility] Comment:Hemolyzed; Potassium value may be falsely elevated by as much as 1.0 mmol/L. Suggest redraw and reanalysis. Chloride 97 97 - 110 mmol/L [facility] CO2 28 22 - 32 mmol/L [facility] Anion gap 12 2 - 15 mmol/L [facility] BUN 18 6 - 25 mg/dL [facility] Creatinine 0.76 0.60 - 1.10 mg/dL [facility] Glucose 95 70 - 199 mg/dL [facility] Comment: [...] Current interpretive data was last revised 2022. Calcium 9.7 8.5 - 10.3 mg/dL [facility] Blood 04/05/2025 6:24 AM CDT 04/05/2025 7:20 AM CDT Melany Conte NP LAB BLOOD ORDERABLES Final Re sult [facility] [address] [facility] [place] [address] * eGFR (04/04/2025 4:11 AM CDT) eGFR >90 >=60 mL/min/1. 73 [...] Current interpretive data was last reviewed 2021. Blood 04/04/2025 4:11 AM CDT 04/04/2025 4:32 AM CDT us Melany Conte NP LAB BLOOD ORDERABLES Final Re sult [facility] [address] [facility] Department [place] [address] * (ABNORMAL) Differential, auto (04/04/2025 4:11 AM CDT) Pathologist [facility] Neutrophil abs 23.84(H) 1.50 - 6.50 K/cumm Imm gran abs 0.67(H) 0.00 - 0.10 K/cumm [facility] Lymphocyte abs 1.53 0.80 - 3.30 K/cumm [facility] Monocyte abs 1.24(H) 0.20 - 0.80 K/cumm [facility] Eosinophil abs 0.00 0.00 - 0.50 K/cumm [facility] Basophil abs 0.06 0.00 - 0.10 K/cumm [facility] Neutrophil pct 87.2 % [facility] Comment: Interpretive Data Percent cell count reference ranges are not reported, since discordance with absolute values may lead to misinterpretation of CBC data. Current Interpretive Data was last revised on 2017. Imm gran pct 2.5 % [facility] Comment: Interpretive Data Percent cell count reference ranges are not reported, since discordance with absolute values may lead to misinterpretation of CBC data. Current Interpretive Data was last revised on 2017. Lymphocyte pct 5.6 % [facility] Comment: Interpretive Data Percent cell count reference ranges are not reported, since discordance with absolute values may lead to misinterpretation of CBC data. Current Interpretive Data was last revised on 2017. Monocyte pct 4.5 % [facility] Comment: Interpretive Data Percent cell count reference ranges are not reported, since discordance with absolute values may lead to misinterpretation of CBC data. Current Interpretive Data was last revised on 2017. Eosinophil pct 0.0 % [facility] Comment: Interpretive Data Percent cell count reference ranges are not reported, since discordance with absolute values may lead to misinterpretation of CBC data. Current Interpretive Data was last revised on 2017. Basophil pct 0.2 % [facility] Comment: Interpretive Data Percent cell count reference ranges are not reported, since discordance with absolute values may lead to misinterpretation of CBC data. Current Interpretive Data was last revised on 2017. Blood 04/04/2025 4:11 AM CDT 04/04/2025 4:32 AM CDT Melany Conte [employer] LAB BLOOD ORDERABLES Final Re sult Performing Organization Address [facility] Co de Phone Number TAWNY[facility] [address] [employer] [place] [place] [address] * (ABNORMAL) CBC with auto differential (04/04/2025 4:11 AM CDT) WBC 27.34(H) 3.80 - 9.90 K/cumm Hgb 10.2(L) 11.9 - 15.5 g/dL [facility] Hct 34.0(L) 35.6 - 45.5 % [facility] Plt 393 150 - 400 K/cumm [facility] MPV 10.5 9.1 - 12.3 fL [facility] RBC 4.11 3.90 - 5.20 M/cumm [facility] MCV 82.7 81.3 - 96.4 fL [facility] MCH 24.8(L) 27.1 - 33.3 pg [facility] MCHC 30.0(L) 32.3 - 35.7 g/dL [facility] RDW CV 15.9(H) 11.1 - 14.9 % [facility] RDW SD 47.4 35.7 - 48.1 fL [facility] NRBC abs 0.00 0.00 - 0.01 K/cumm [facility] Morphologic Screen Results confirmed by manual morphology review. [facility] Blood 04/04/2025 4:11 AM CDT 04/04/2025 4:32 AM CDT Melany Conte NP LAB BLOOD ORDERABLES Final Re sult Performing Organization Address City/[facility]/ZIP Co de Phone Number TAWNYA [address] [place] [address] * Basic metabolic panel (04/04/2025 4:11 AM CDT) [facility] Sodium 138 135 - 145 mmol/L Potassium, pl 4.7 3.3 - 4.9 mmol/L [facility] Comment:Hemolyzed; Potassium value may be falsely elevated by as much as 1.0 mmol/L. Suggest redraw and reanalysis. Chloride 101 97 - 110 mmol/L [facility] CO2 26 22 - 32 mmol/L [facility] Anion gap 11 2 - 15 mmol/L [facility] BUN 19 6 - 25 mg/dL [facility] Creatinine 0.68 0.60 - 1.10 mg/dL [facility] Glucose 120 70 - 199 mg/dL [facility] Comment: Interpretive Data Fasting glucose >/= [...] Current interpretive data was last revised 2022. Calcium 9.3 8.5 - 10.3 mg/dL [facility] Blood 04/04/2025 4:11 AM CDT 04/04/2025 4:32 AM CDT us Melany Conte NP LAB BLOOD ORDERABLES Final Re sult [facility] [address] [facility] [place] [address] * eGFR (04/03/2025 2:33 AM CDT) [facility] eGFR >90 >=60 mL/min/1. 73 m2 [...] Current interpretive data was last reviewed 2021. Blood 04/03/2025 2:33 AM CDT 04/03/2025 2:42 AM CDT us Melany Conte NP LAB BLOOD ORDERABLES Final Re sult [address] Department [place] [address] * (ABNORMAL) CBC with auto differential (04/03/2025 2:33 AM CDT) WBC 29.13(H) 3.80 - 9.90 K/cumm Hgb 10.7(L) 11.9 - 15.5 g/dL [facility] Hct 35.1(L) 35.6 - 45.5 % [facility] Plt 371 150 - 400 K/cumm [facility] MPV 9.4 9.1 - 12.3 fL [facility] RBC 4.38 3.90 - 5.20 M/cumm [facility] MCV 80.1(L) 81.3 - 96.4 fL [facility] MCH 24.4(L) 27.1 - 33.3 pg [facility] MCHC 30.5(L) 32.3 - 35.7 g/dL [facility] RDW CV 15.5(H) 11.1 - 14.9 % [facility] RDW SD 44.5 35.7 - 48.1 fL [facility] NRBC abs 0.00 0.00 - 0.01 K/cumm [facility] Blood 04/03/2025 2:33 AM CDT 04/03/2025 2:42 AM CDT Melany Conte NP LAB BLOOD ORDERABLES Edited R esult - Final Performing Organization Address City/[facility]/ZIP Co de Phone Number TAWNYA [address] Department [place] [address] * (ABNORMAL) Manual Differential (04/03/2025 2:33 AM CDT) Differential Manual Cells Counted 100 [facility] Neutrophil abs 26.51(H) 1.50 - 6.50 K/cumm [facility] Lymphocyte abs 2.04 0.80 - 3.30 K/cumm [facility] Monocyte abs 0.58 0.20 - 0.80 K/cumm [facility] Neutrophil pct 91.0 % [facility] Comment: Interpretive Data Percent cell count reference ranges are not reported, since discordance with absolute values may lead to misinterpretation of CBC data. Current Interpretive Data was last revised on 2017. Lymphocyte pct 7.0 % [facility] Comment: Interpretive Data Percent cell count reference ranges are not reported, since discordance with absolute values may lead to misinterpretation of CBC data. Current Interpretive Data was last revised on 2017. Monocyte pct 2.0 % [facility] Comment: Interpretive Data Percent cell count reference ranges are not reported, since discordance with absolute values may lead to misinterpretation of CBC data. Current Interpretive Data was last revised on 2017. RBC morphology Present(A) [facility] Polychromasia 3-7/HPF(A) [facility] Anisocytosis Slight(A) [facility] Schistocytes 1-2/HPF(A) [facility] Platelet estimate Adequate [facility] Blood 04/03/2025 2:33 AM CDT 04/03/2025 2:42 AM CDT Melany Conte NP LAB BLOOD ORDERABLES Final Re sult Performing Organization Address [facility]/ZIP Co de Phone Number TAWNYA [address] [place] [address] * (ABNORMAL) Basic metabolic panel (04/03/2025 2:33 AM CDT) [facility] Sodium 138 135 - 145 mmol/L Potassium, pl 4.3 3.3 - 4.9 mmol/L [facility] Comment:Hemolyzed; Potassium value may be falsely elevated by as much as 1.0 mmol/L. Suggest redraw and reanalysis. Chloride 103 97 - 110 mmol/L [facility] CO2 19(L) 22 - 32 mmol/L [facility] Anion gap 16(H) 2 - 15 mmol/L [facility] BUN 17 6 - 25 mg/dL [facility] Creatinine 0.54(L) 0.60 - 1.10 mg/dL [facility] Glucose 153 70 - 199 mg/dL [facility] Comment: Interpretive Data Fasting glucose >/= [...] Current interpretive data was last revised 2022. Calcium 9.2 8.5 - 10.3 mg/dL [facility] Blood 04/03/2025 2:33 AM CDT 04/03/2025 2:42 AM CDT us Melany Conte NP LAB BLOOD ORDERABLES Final Re sult [facility] [address] [address] * (ABNORMAL) Sepsis Lactate w/ Reflex (04/02/2025 10:33 PM CDT) [facility] Sepsis Lactate 2.3(H) 0.7 - 2.0 mmol/L Blood 04/02/2025 10:3 3 PM CDT 04/02/2025 10:52 PM CDT Jose Kinsey MD LAB BLOOD ORDERABLES Final Resul t Performing Organization Address City/[facility]/ZIP Co de Phone Number [address] [address] * (ABNORMAL) Sepsis Lactate w/ Reflex (04/02/2025 7:29 PM CDT) Sepsis Lactate 3.6(H) 0.7 - 2.0 mmol/L Blood 04/02/2025 7:29 PM CDT 04/02/2025 7:34 PM CDT Paris MARQUEZ LAB BLOOD ORDERABLES Final Re sult Performing Organization Address [facility] Co de Phone Number [address] [address] * (ABNORMAL) Urinalysis reflex to microscopic and culture Urine (04/02/2025 3:22 PM CDT) Color, ur Yellow Yellow Clarity, ur Cloudy(A) Clear [facility] Specific gravity, ur 1.016 1.003 - 1.030 [facility] pH, urine 7.0 [facility] Comment: Interpretive Data U rine pH is affected by diet, medications, systemic acid-base disturbances, and renal tubular function. pH may affect urinary stone formation. For example, urine pH below 6.0 may help reduce the tendency for calcium phosphate stones and pH greater than 6.0 may reduce the tendency for uric acid stone formation. Source: [facility] Current Interpretive Data was last revised on 2017 Protein, ur ql Negative Negative [facility] Glucose, ur ql Negative Negative [facility] Ketones, ur Negative Negative [facility] Bilirubin, ur Negative Negative [facility] Blood, ur 3+(A) Negative [facility] Urobilinogen, ur <2.0 <2.0 mg/dL [facility] Nitrite, ur Negative Negative [facility] Leukocyte esterase, ur Negative Negative [facility] UA reflex comment Reflex to microscopic UA will be performed. [facility] Urine 04/02/2025 3:22 PM CDT 04/02/2025 3:56 PM CDT Paris MARQUEZ LAB MICROBIOLOGY - GENERAL OR DERABLES Final Result Performing Organization Address [facility] Co de Phone Number [address] [place] [employer] [place] [address] * (ABNORMAL) Urinalysis, microscopic only (04/02/2025 3:22 PM CDT) WBC, ur 0-5 0 - 5 /HPF RBC, ur >50(A) 0 - 2 /HPF [facility] Epithelial cells, squamous, ur 11-20(A) 0 - 5 /HPF [facility] Comment:Suggestive of contam ination. Consider recollection by clean catch. Mucous, ur Present(A) [facility] Amorphous crystals, ur Trace(A) [facility] Culture Reflex Comment Reflex conditions for urine culture (WBC >10) not met. [facility] Urine 04/02/2025 3:22 PM CDT 04/02/2025 3:56 PM CDT Paris MARQUEZ LAB URINE ORDERABLES Final Re sult Performing Organization Address [facility] de Phone Number [address] [address] * (ABNORMAL) Sepsis Lactate w/ Reflex (04/02/2025 3:17 PM CDT) Sepsis Lactate 2.4(H) 0.7 - 2.0 mmol/L Blood 04/02/2025 3:17 PM CDT 04/02/2025 3:39 PM CDT Paris MARQUEZ LAB BLOOD ORDERABLES Final Re sult Performing Organization Address [facility] Co de Phone Number [address] [address] * eGFR (04/02/2025 1:40 PM CDT) [facility] eGFR 83 >=60 mL/min/1. 73 m2 Comment: Interpretive Data [...] Current interpretive data was last reviewed 2021. Blood 04/02/2025 1:40 PM CDT 04/02/2025 1:42 PM CDT Arnold Tavera DO LAB BLOOD ORDERABLES Final Result [facility] [address] [facility] [place] [address] * (ABNORMAL) CBC with auto differential (04/02/2025 1:40 PM CDT) [facility] WBC 35.42(H) 3.80 - 9.90 K/cumm Hgb 11.8(L) 11.9 - 15.5 g/dL [facility] Hct 38.6 35.6 - 45.5 % [facility] Plt 530(H) 150 - 400 K/cumm [facility] MPV 9.4 9.1 - 12.3 fL [facility] RBC 4.82 3.90 - 5.20 M/cumm [facility] MCV 80.1(L) 81.3 - 96.4 fL [facility] MCH 24.5(L) 27.1 - 33.3 pg [facility] MCHC 30.6(L) 32.3 - 35.7 g/dL [facility] RDW CV 15.4(H) 11.1 - 14.9 % [facility] RDW SD 43.6 35.7 - 48.1 fL [facility] NRBC abs 0.07(H) 0.00 - 0.01 K/cumm [facility] Blood 04/02/2025 1:40 PM CDT 04/02/2025 1:43 PM CDT Arnold Tavera DO LAB BLOOD ORDERABLES Edited Result - Final [facility] [address] [facility] [place] [address] * (ABNORMAL) Manual Differential (04/02/2025 1:40 PM CDT) Differential Manual Cells Counted 100 [facility] Neutrophil abs 29.04(H) 1.50 - 6.50 K/cumm [facility] Lymphocyte abs 4.25(H) 0.80 - 3.30 K/cumm [facility] Monocyte abs 2.13(H) 0.20 - 0.80 K/cumm [facility] Neutrophil pct 70.0 % [facility] Comment: Interpretive Data Percent cell count reference ranges are not reported, since discordance with absolute values may lead to misinterpretation of CBC data. Current Interpretive Data was last revised on 2017. Lymphocyte pct 12.0 % [facility] Comment: Interpretive Data Percent cell count reference ranges are not reported, since discordance with absolute values may lead to misinterpretation of CBC data. Current Interpretive Data was last revised on 2017. Monocyte pct 6.0 % [facility] Comment: Interpretive Data Percent cell count reference ranges are not reported, since discordance with absolute values may lead to misinterpretation of CBC data. Current Interpretive Data was last revised on 2017. Band Neutrophil pct 12.0(H) 0.0 - 5.0 % [facility] RBC morphology Present(A) [facility] Anisocytosis Slight(A) [facility] Microcytes 3-7/HPF(A) [facility] Platelet estimate Automated Count Confirmed [facility] Blood 04/02/2025 1:40 PM CDT 04/02/2025 1:43 PM CDT Arnold Tavera DO LAB BLOOD ORDERABLES Final Result [facility] [address] [facility] [place] [address] * (ABNORMAL) Comprehensive metabolic panel (04/02/2025 1:40 PM CDT) Sodium 140 135 - 145 mmol/L Potassium, pl 4.4 3.3 - 4.9 mmol/L [facility] Chloride 100 97 - 110 mmol/L [facility] CO2 25 22 - 32 mmol/L [facility] Anion gap 15 2 - 15 mmol/L [facility] BUN 28(H) 6 - 25 mg/dL [facility] Creatinine 0.93 0.60 - 1.10 mg/dL [facility] Glucose 165 70 - 199 mg/dL [facility] Comment: Interpretive Data Fasting glucose >/= [...] Current interpretive data was last revised 2022. Calcium 9.5 8.5 - 10.3 mg/dL [facility] Bilirubin, total 0.2 0.1 - 1.2 mg/dL [facility] Protein, pl 7.6 6.5 - 8.5 g/dL [facility] Albumin 4.5 3.5 - 5.0 g/dL [facility] Alk phos 82 40 - 130 Units/L [facility] ALT 25 7 - 45 Units/L [facility] AST 20 10 - 45 Units/L [facility] Blood 04/02/2025 1:40 PM CDT 04/02/2025 1:42 PM CDT Arnold Tavera DO LAB BLOOD ORDERABLES Final Result [facility] [address] [facility] [place] [address] * XR Chest 1 Vw Portable (04/02/2025 1:39 PM CDT) Anatomical Region Laterality Modality Body, Chest N/A Computed Radiogr aphy 04/02/2025 1:55 PM CDT Narrative 04/02/2025 1:56 PM CDT EXAM DESCRIPTION: XR CHEST 1 VIEW REASON FOR STUDY: Shortness of Breath PT STATES ONSET TODAY SOB WITH RAPID HEART BEAT HX OF SAME THING HAPPENING ABOUT A WEEK AGO TECHNIQUE: 1 radiographic view(s) of the chest. COMPARISON: 09/28/2024 FINDINGS: LUNGS: No focal opacity, pleural effusion, or pneumothorax. HEART/MEDIASTINUM: Cardiac silhouette normal in size. Mediastinal and hilar contours appear normal. LINES/TUBES: None. BONES: No acute osseous abnormality. IMPRESSION: No acute cardiopulmonary abnormality. THIS IS AN ELECTRONICALLY VERIFIED FINAL REPORT 04/02/2025 1:56 PM - Electronically signed by Arnold Olmstead M.D. KR T: Report ID: [id number] Reading Location: [place] [address] Procedure Note Arnold Olmstead MD - 04/02/2025 EXAM DESCRIPTION: XR CHEST 1 VIEW REASON FOR STUDY: Shortness of Breath PT STATES ONSET TODAY SOB WITH RAPID HEART BEAT HX OF SAME THINGHAPPENING ABOUT A WEEK AGO TECHNIQUE: 1 radiographic view(s) of the chest. COMPARISON: 09/28/2024 FINDINGS: LUNGS: No focal opacity, pleural effusion, or pneumothorax. HEART/MEDIASTINUM: Cardiac silhouette normal in size. Mediastinal andhilar contours appear normal. LINES/TUBES: None. BONES: No acute osseous abnormality. IMPRESSION: No acute cardiopulmonary abnormality. THIS IS AN ELECTRONICALLY VERIFIED FINAL REPORT 04/02/2025 1:56 PM - Electronically signed by Arnold Olmstead M.D. KR T: Report ID: [id number] Reading Location: [id number] Arnold Terrazas Ayse DO IMG XR PROCEDURES Final Res ult * ECG 12 lead (04/02/2025 1:21 PM CDT) Ventricular Rate EKG/Min 140 BPM [facility] Atrial Rate 140 BPM [facility] SD-Interval (MSEC) 130 ms [facility] QRS-Interval (MSEC) 78 ms [facility] QT-Interval (MSEC) 294 ms [facility] QTc 448 ms [facility] P [place] 53 degrees [facility] R [place] 28 degrees [facility] T [place] 41 degrees [facility] Diagnosis Sinus tachycardia Possible Left atrial enlargement Cannot rule out Anterior infarct , age undetermined Abnormal ECG When compared with ECG of 20-MAR-2025 08:26, No significant change was found Confirmed by DONI LOPEZ M.D. ([id number]) on 04/02/2025 3:29:51 PM [facility] 04/02/2025 1:21 PM CDT 04/02/2025 3:29 PM CDT [place] MARQUEZ ECG ORDERABLES Final Result [facility] * eGFR (03/25/2025 2:46 AM CDT) eGFR 84 >=60 mL/min/1. 73 m2 Comment: Interpretive Data [...] Current interpretive data was last reviewed 2021. Blood 03/25/2025 2:46 AM CDT 03/25/2025 3:05 AM CDT us Kellie Corbett MD LAB BLOOD ORDERABLES Ruthy trivedi Result [facility] [address] [facility] [place] [address] * (ABNORMAL) Differential, auto (03/25/2025 2:46 AM CDT) Neutrophil abs 7.91(H) 1.50 - 6.50 K/cumm Imm gran abs 0.19(H) 0.00 - 0.10 K/cumm [facility] Lymphocyte abs 4.63(H) 0.80 - 3.30 K/cumm [facility] Monocyte abs 1.37(H) 0.20 - 0.80 K/cumm [facility] Eosinophil abs 0.02 0.00 - 0.50 K/cumm [facility] Basophil abs 0.04 0.00 - 0.10 K/cumm [facility] Neutrophil pct 55.9 % [facility] Comment: Interpretive Data Percent cell count reference ranges are not reported, since discordance with absolute values may lead to misinterpretation of CBC data. Current Interpretive Data was last revised on 2017. Imm gran pct 1.3 % [facility] Comment: Interpretive Data Percent cell count reference ranges are not reported, since discordance with absolute values may lead to misinterpretation of CBC data. Current Interpretive Data was last revised on 2017. Lymphocyte pct 32.7 % [facility] Comment: Interpretive Data Percent cell count reference ranges are not reported, since discordance with absolute values may lead to misinterpretation of CBC data. Current Interpretive Data was last revised on 2017. Monocyte pct 9.7 % [facility] Comment: Interpretive Data Percent cell count reference ranges are not reported, since discordance with absolute values may lead to misinterpretation of CBC data. Current Interpretive Data was last revised on 2017. Eosinophil pct 0.1 % [facility] Comment: Interpretive Data Percent cell count reference ranges are not reported, since discordance with absolute values may lead to misinterpretation of CBC data. Current Interpretive Data was last revised on 2017. Basophil pct 0.3 % [facility] Comment: Interpretive Data Percent cell count reference ranges are not reported, since discordance with absolute values may lead to misinterpretation of CBC data. Current Interpretive Data was last revised on 2017. Blood 03/25/2025 2:46 AM CDT 03/25/2025 3:05 AM CDT us Kellie Corbett MD LAB BLOOD ORDERABLES Ruthy trivedi Result [place] [id number] [facility] [place] [address] * (ABNORMAL) CBC with auto differential (03/25/2025 2:46 AM CDT) WBC 14.16(H) 3.80 - 9.90 K/cumm Hgb 11.9 11.9 - 15.5 g/dL [facility] Hct 38.5 35.6 - 45.5 % [facility] Plt 442(H) 150 - 400 K/cumm [facility] MPV 9.5 9.1 - 12.3 fL [facility] RBC 4.82 3.90 - 5.20 M/cumm [facility] MCV 79.9(L) 81.3 - 96.4 fL [facility] MCH 24.7(L) 27.1 - 33.3 pg [facility] MCHC 30.9(L) 32.3 - 35.7 g/dL [facility] RDW CV 14.8 11.1 - 14.9 % [facility] RDW SD 42.7 35.7 - 48.1 fL [facility] NRBC abs 0.00 0.00 - 0.01 K/cumm [facility] Morphologic Screen Results confirmed by manual morphology review. [facility] Blood 03/25/2025 2:46 AM CDT 03/25/2025 3:05 AM CDT Kellie Corbett MD LAB BLOOD ORDERABLES Edit ed Result - Final Performing Organization Address [facility] Co de Phone Number [address] [address] * Magnesium (03/25/2025 2:46 AM CDT) [facility] Magnesium 2.1 1.4 - 2.5 mg/dL Blood 03/25/2025 2:46 AM CDT 03/25/2025 3:05 AM CDT Kellie Corbett MD LAB BLOOD ORDERABLES Ruthy l Result Performing Organization Address [facility] de Phone Number [address] [address] * Comprehensive metabolic panel (03/25/2025 2:46 AM CDT) [facility] Sodium 137 135 - 145 mmol/L Potassium, pl 3.9 3.3 - 4.9 mmol/L [facility] Chloride 99 97 - 110 mmol/L [facility] CO2 27 22 - 32 mmol/L [facility] Anion gap 11 2 - 15 mmol/L [facility] BUN 22 6 - 25 mg/dL [facility] Creatinine 0.92 0.60 - 1.10 mg/dL [facility] Glucose 87 70 - 199 mg/dL [facility] Comment: Interpretive Data Fasting glucose >/= [...] Current interpretive data was last revised 2022. Calcium 9.4 8.5 - 10.3 mg/dL [facility] Bilirubin, total 0.2 0.1 - 1.2 mg/dL [facility] Protein, pl 6.5 6.5 - 8.5 g/dL [facility] Albumin 3.8 3.5 - 5.0 g/dL [facility] Alk phos 79 40 - 130 Units/L [facility] ALT 16 7 - 45 Units/L [facility] AST 12 10 - 45 Units/L [facility] Blood 03/25/2025 2:46 AM CDT 03/25/2025 3:05 AM CDT Kellie Corbett MD LAB BLOOD ORDERABLES Ruthy l Result [facility] [address] [facility] [place] [address] * eGFR (03/24/2025 10:48 AM CDT) eGFR >90 >=60 mL/min/1. 73 [...] Current interpretive data was last reviewed 2021. Blood 03/24/2025 10:4 8 AM CDT 03/24/2025 11:21 AM CDT us Kellie Corbett MD LAB BLOOD ORDERABLES Ruthy trivedi Result [facility] [address] [facility] [place] [address] * (ABNORMAL) Differential, auto (03/24/2025 10:48 AM CDT) Neutrophil abs 11.97(H) 1.50 - 6.50 K/cumm Imm gran abs 0.11(H) 0.00 - 0.10 K/cumm [facility] Lymphocyte abs 1.40 0.80 - 3.30 K/cumm [facility] Monocyte abs 0.92(H) 0.20 - 0.80 K/cumm [facility] Eosinophil abs 0.00 0.00 - 0.50 K/cumm [facility] Basophil abs 0.02 0.00 - 0.10 K/cumm [facility] Neutrophil pct 83.0 % [facility] Comment: Interpretive Data Percent cell count reference ranges are not reported, since discordance with absolute values may lead to misinterpretation of CBC data. Current Interpretive Data was last revised on 2017. Imm gran pct 0.8 % [facility] Comment: Interpretive Data Percent cell count reference ranges are not reported, since discordance with absolute values may lead to misinterpretation of CBC data. Current Interpretive Data was last revised on 2017. Lymphocyte pct 9.7 % [facility] Comment: Interpretive Data Percent cell count reference ranges are not reported, since discordance with absolute values may lead to misinterpretation of CBC data. Current Interpretive Data was last revised on 2017. Monocyte pct 6.4 % [facility] Comment: Interpretive Data Percent cell count reference ranges are not reported, since discordance with absolute values may lead to misinterpretation of CBC data. Current Interpretive Data was last revised on 2017. Eosinophil pct 0.0 % [facility] Comment: Interpretive Data Percent cell count reference ranges are not reported, since discordance with absolute values may lead to misinterpretation of CBC data. Current Interpretive Data was last revised on 2017. Basophil pct 0.1 % [facility] Comment: Interpretive Data Percent cell count reference ranges are not reported, since discordance with absolute values may lead to misinterpretation of CBC data. Current Interpretive Data was last revised on 2017. Blood 03/24/2025 10:4 8 AM CDT 03/24/2025 11:21 AM CDT us Kellie Corbett MD LAB BLOOD ORDERABLES Ruthy l Result Performing Organization Address City/[facility]/ZIP Co de Phone Number [address] [place] [employer] [address] * (ABNORMAL) CBC with auto differential (03/24/2025 10:48 AM CDT) WBC 14.42(H) 3.80 - 9.90 K/cumm Hgb 12.7 11.9 - 15.5 g/dL [facility] Hct 40.3 35.6 - 45.5 % [facility] Plt 467(H) 150 - 400 K/cumm [facility] MPV 9.5 9.1 - 12.3 fL [facility] RBC 5.10 3.90 - 5.20 M/cumm [facility] MCV 79.0(L) 81.3 - 96.4 fL [facility] MCH 24.9(L) 27.1 - 33.3 pg [facility] MCHC 31.5(L) 32.3 - 35.7 g/dL [facility] RDW CV 15.0(H) 11.1 - 14.9 % [facility] RDW SD 42.8 35.7 - 48.1 fL [facility] NRBC abs 0.00 0.00 - 0.01 K/cumm [facility] Blood 03/24/2025 10:4 8 AM CDT 03/24/2025 11:21 AM CDT us Kellie Corbett MD LAB BLOOD ORDERABLES Ruthy l Result Performing Organization Address City/[facility]/ZIP Co de Phone Number TAWNYA [address] [place] [place] [address] * Magnesium (03/24/2025 10:48 AM CDT) Pathologist [facility] Magnesium 2.0 1.4 - 2.5 mg/dL Blood 03/24/2025 10:4 8 AM CDT 03/24/2025 11:21 AM CDT Kellie Corbett MD LAB BLOOD ORDERABLES Ruthy l Result [facility] [address] [facility] Department [place] [address] * Comprehensive metabolic panel (03/24/2025 10:48 AM CDT) Pathologist [facility] Sodium 136 135 - 145 mmol/L Potassium, pl 3.9 3.3 - 4.9 mmol/L [facility] Chloride 98 97 - 110 mmol/L [facility] CO2 26 22 - 32 mmol/L [facility] Anion gap 12 2 - 15 mmol/L [facility] BUN 19 6 - 25 mg/dL [facility] Creatinine 0.78 0.60 - 1.10 mg/dL [facility] Glucose 146 70 - 199 mg/dL [facility] Comment: Interpretive Data Fasting glucose >/= [...] Current interpretive data was last revised 2022. Calcium 9.9 8.5 - 10.3 mg/dL [facility] Bilirubin, total 0.2 0.1 - 1.2 mg/dL [facility] Protein, pl 7.0 6.5 - 8.5 g/dL [facility] Albumin 4.2 3.5 - 5.0 g/dL [facility] Alk phos 91 40 - 130 Units/L [facility] ALT 20 7 - 45 Units/L [facility] AST 15 10 - 45 Units/L [facility] Blood 03/24/2025 10:4 8 AM CDT 03/24/2025 11:21 AM CDT Kellie Corbett MD LAB BLOOD ORDERABLES Ruthy l Result Performing Organization Address City/[facility] Co de Phone Number TAWNYA [address] [place] [employer] [place] [address] * eGFR (03/23/2025 8:52 AM CDT) eGFR >90 >=60 mL/min/1. 73 [...] Current interpretive data was last reviewed 2021. Blood 03/23/2025 8:5 2 AM CDT 03/23/2025 9:05 AM CDT us Kellie Corbett MD LAB BLOOD ORDERABLES Ruthy l Result Performing Organization Address City/[facility]/ZIP Co de Phone Number TAWNYA [address] [place] [employer] [place] [address] * (ABNORMAL) Differential, auto (03/23/2025 8:52 AM CDT) Neutrophil abs 8.10(H) 1.50 - 6.50 K/cumm Imm gran abs 0.05 0.00 - 0.10 K/cumm [facility] Lymphocyte abs 1.30 0.80 - 3.30 K/cumm [facility] Monocyte abs 0.55 0.20 - 0.80 K/cumm [facility] Eosinophil abs 0.00 0.00 - 0.50 K/cumm [facility] Basophil abs 0.01 0.00 - 0.10 K/cumm [facility] Neutrophil pct 80.9 % [facility] Comment: Interpretive Data Percent cell count reference ranges are not reported, since discordance with absolute values may lead to misinterpretation of CBC data. Current Interpretive Data was last revised on 2017. Imm gran pct 0.5 % [facility] Comment: Interpretive Data Percent cell count reference ranges are not reported, since discordance with absolute values may lead to misinterpretation of CBC data. Current Interpretive Data was last revised on 2017. Lymphocyte pct 13.0 % [facility] Comment: Interpretive Data Percent cell count reference ranges are not reported, since discordance with absolute values may lead to misinterpretation of CBC data. Current Interpretive Data was last revised on 2017. Monocyte pct 5.5 % [facility] Comment: Interpretive Data Percent cell count reference ranges are not reported, since discordance with absolute values may lead to misinterpretation of CBC data. Current Interpretive Data was last revised on 2017. Eosinophil pct 0.0 % [facility] Comment: Interpretive Data Percent cell count reference ranges are not reported, since discordance with absolute values may lead to misinterpretation of CBC data. Current Interpretive Data was last revised on 2017. Basophil pct 0.1 % [facility] Comment: Interpretive Data Percent cell count reference ranges are not reported, since discordance with absolute values may lead to misinterpretation of CBC data. Current Interpretive Data was last revised on 2017. Blood 03/23/2025 8:52 AM CDT 03/23/2025 9:05 AM CDT us Kellie Corbett MD LAB BLOOD ORDERABLES Ruthy trivedi Result [facility] [address] [facility] [place] [address] * (ABNORMAL) CBC with auto differential (03/23/2025 8:52 AM CDT) [facility] WBC 10.01(H) 3.80 - 9.90 K/cumm Hgb 11.8(L) 11.9 - 15.5 g/dL [facility] Hct 38.1 35.6 - 45.5 % [facility] Plt 422(H) 150 - 400 K/cumm [facility] MPV 9.6 9.1 - 12.3 fL [facility] RBC 4.77 3.90 - 5.20 M/cumm [facility] MCV 79.9(L) 81.3 - 96.4 fL [facility] MCH 24.7(L) 27.1 - 33.3 pg [facility] MCHC 31.0(L) 32.3 - 35.7 g/dL [facility] RDW CV 15.3(H) 11.1 - 14.9 % [facility] RDW SD 44.0 35.7 - 48.1 fL [facility] NRBC abs 0.00 0.00 - 0.01 K/cumm [facility] Blood 03/23/2025 8:52 AM CDT 03/23/2025 9:05 AM CDT us Kellie Corbett MD LAB BLOOD ORDERABLES Ruthy l Result [facility] [address] [facility] [place] [address] * Comprehensive metabolic panel (03/23/2025 8:52 AM CDT) [facility] Sodium 139 135 - 145 mmol/L Potassium, pl 4.2 3.3 - 4.9 mmol/L [facility] Chloride 101 97 - 110 mmol/L [facility] CO2 24 22 - 32 mmol/L [facility] Anion gap 14 2 - 15 mmol/L [facility] BUN 19 6 - 25 mg/dL [facility] Creatinine 0.81 0.60 - 1.10 mg/dL [facility] Glucose 140 70 - 199 mg/dL [facility] Comment: Interpretive Data Fasting glucose >/= [...] Current interpretive data was last revised 2022. Calcium 9.7 8.5 - 10.3 mg/dL [facility] Bilirubin, total 0.3 0.1 - 1.2 mg/dL [facility] Protein, pl 6.9 6.5 - 8.5 g/dL [facility] Albumin 4.2 3.5 - 5.0 g/dL [facility] Alk phos 88 40 - 130 Units/L [facility] ALT 18 7 - 45 Units/L [facility] AST 15 10 - 45 Units/L [facility] Blood 03/23/2025 8:52 AM CDT 03/23/2025 9:05 AM CDT us Kellie Corbett MD LAB BLOOD ORDERABLES Ruthy trivedi Result [facility] [address] [facility] [place] [address] * eGFR (03/21/2025 5:17 AM CDT) eGFR >90 >=60 mL/min/1. 73 [...] Current interpretive data was last reviewed 2021. Blood 03/21/2025 5:17 AM CDT 03/21/2025 5:51 AM CDT us Arnold Heard MD LAB BLOOD ORDERABLES Final Resu lt [place] [address] [facility] [place] [address] * (ABNORMAL) Differential, auto (03/21/2025 5:17 AM CDT) Neutrophil abs 12.92(H) 1.50 - 6.50 K/cumm Imm gran abs 0.06 0.00 - 0.10 K/cumm [facility] Lymphocyte abs 0.97 0.80 - 3.30 K/cumm [facility] Monocyte abs 0.51 0.20 - 0.80 K/cumm [facility] Eosinophil abs 0.00 0.00 - 0.50 K/cumm [facility] Basophil abs 0.02 0.00 - 0.10 K/cumm [facility] Neutrophil pct 89.3 % [facility] Comment: Interpretive Data Percent cell count reference ranges are not reported, since discordance with absolute values may lead to misinterpretation of CBC data. Current Interpretive Data was last revised on 2017. Imm gran pct 0.4 % [facility] Comment: Interpretive Data Percent cell count reference ranges are not reported, since discordance with absolute values may lead to misinterpretation of CBC data. Current Interpretive Data was last revised on 2017. Lymphocyte pct 6.7 % [facility] Comment: Interpretive Data Percent cell count reference ranges are not reported, since discordance with absolute values may lead to misinterpretation of CBC data. Current Interpretive Data was last revised on 2017. Monocyte pct 3.5 % [facility] Comment: Interpretive Data Percent cell count reference ranges are not reported, since discordance with absolute values may lead to misinterpretation of CBC data. Current Interpretive Data was last revised on 2017. Eosinophil pct 0.0 % [facility] Comment: Interpretive Data Percent cell count reference ranges are not reported, since discordance with absolute values may lead to misinterpretation of CBC data. Current Interpretive Data was last revised on 2017. Basophil pct 0.1 % [facility] Comment: Interpretive Data Percent cell count reference ranges are not reported, since discordance with absolute values may lead to misinterpretation of CBC data. Current Interpretive Data was last revised on 2017. Blood 03/21/2025 5:17 AM CDT 03/21/2025 5:51 AM CDT us Arnold Heard MD LAB BLOOD ORDERABLES Final Resu lt [place] [id number] [facility] [place] [address] * (ABNORMAL) CBC with auto differential (03/21/2025 5:17 AM CDT) WBC 14.48(H) 3.80 - 9.90 K/cumm Hgb 11.4(L) 11.9 - 15.5 g/dL [facility] Hct 37.7 35.6 - 45.5 % [facility] Plt 446(H) 150 - 400 K/cumm [facility] MPV 10.4 9.1 - 12.3 fL [facility] RBC 4.59 3.90 - 5.20 M/cumm [facility] MCV 82.1 81.3 - 96.4 fL [facility] MCH 24.8(L) 27.1 - 33.3 pg [facility] MCHC 30.2(L) 32.3 - 35.7 g/dL [facility] RDW CV 15.8(H) 11.1 - 14.9 % [facility] RDW SD 46.8 35.7 - 48.1 fL [facility] NRBC abs 0.00 0.00 - 0.01 K/cumm [facility] Blood 03/21/2025 5:17 AM CDT 03/21/2025 5:51 AM CDT Arnold Heard MD LAB BLOOD ORDERABLES Final Resu lt Performing Organization Address City/[facility] Co de Phone Number [address] [place] [employer] [place] [address] * Phosphorus (03/21/2025 5:17 AM CDT) Pathologist [facility] Phosphorus, pl 4.2 2.3 - 4.5 mg/dL Blood 03/21/2025 5:17 AM CDT 03/21/2025 5:51 AM CDT Arnold Heard MD LAB BLOOD ORDERABLES Final Resu lt Performing Organization Address [facility] Co de Phone Number [address] [place] [place] [address] * Magnesium (03/21/2025 5:17 AM CDT) [facility] Magnesium 2.4 1.4 - 2.5 mg/dL Blood 03/21/2025 5:17 AM CDT 03/21/2025 5:51 AM CDT Arnold Heard MD LAB BLOOD ORDERABLES Final Resu lt Performing Organization Address [facility] Co de Phone Number [address] [place] [place] [address] * Comprehensive metabolic panel (03/21/2025 5:17 AM CDT) [facility] Sodium 141 135 - 145 mmol/L Potassium, pl 4.6 3.3 - 4.9 mmol/L [facility] Comment:Hemolyzed; Potassium value may be falsely elevated by as much as 1.0 mmol/L. Suggest redraw and reanalysis. Chloride 104 97 - 110 mmol/L [facility] CO2 24 22 - 32 mmol/L [facility] Anion gap 13 2 - 15 mmol/L [facility] BUN 14 6 - 25 mg/dL [facility] Creatinine 0.72 0.60 - 1.10 mg/dL [facility] Glucose 134 70 - 199 mg/dL [facility] Comment: Interpretive Data Fasting glucose >/= [...] Current interpretive data was last revised 2022. Calcium 10.1 8.5 - 10.3 mg/dL [facility] Bilirubin, total 0.3 0.1 - 1.2 mg/dL [facility] Protein, pl 7.2 6.5 - 8.5 g/dL [facility] Albumin 4.3 3.5 - 5.0 g/dL [facility] Alk phos 89 40 - 130 Units/L [facility] ALT 22 7 - 45 Units/L [facility] AST 26 10 - 45 Units/L [facility] Comment:Hemolyzed; result ma y be falsely elevated Blood 03/21/2025 5:17 AM CDT 03/21/2025 5:51 AM CDT us Arnold Heard MD LAB BLOOD ORDERABLES Final Resu lt [facility] [address] [facility] [place] [address] * Critical Care (03/20/2025 8:00 PM CDT) Narrative Bony Syed MD - 03/20/2025 8:00 PM CDT Bony Syed MD 03/21/2025 5:27 AM Critical Care Performed by: Bony Syed MD Authorized by: Bony Syed MD CRITICAL CARE: Team: B Shift: PM Level of Billing: Subsequent Hospital Visit Level 3 My time spent with this patient was 45 minutes: Critical Provider Statement: I have seen and examined the patient on this day of service. I have reviewed and confirmed the history, physical exam, laboratory, and radiographic data as documented in the ICU note. I have reviewed and discussed my treatment plan with the patient's team and other medical/entry level sales consultant staff. This time was in addition to and separate from care provided by other practitioners on this day of service. Allergic Reaction Jaw Subluxation This time was spent by me doing the following: Allergic Reaction Treatment Active and frequent reassessment of respiratory status and oxygen requirements I spent time reviewing and interpreting data from bedside monitors, laboratory results, and imaging us Bony Syed MD IN CLINIC/BEDSIDE ORDERABLES Final Result * Critical Care (03/20/2025 4:59 PM CDT) Narrative Arnold Heard MD - 03/20/2025 4:59 PM CDT Arnold Heard MD 03/20/2025 5:43 PM Critical Care Performed by: Arnold Heard MD Authorized by: Arnold Heard MD CRITICAL CARE: Team: [facility] Shift: AM Level of Billing: Subsequent Hospital Visit Level 2 My time spent with this patient was 35 minutes: Critical Provider Statement: I have seen and examined the patient on this day of service. I have reviewed and confirmed the history, physical exam, laboratory, and radiographic data as documented in the ICU note. I have reviewed and discussed my treatment plan with the patient's team and other medical/entry level sales consultant staff. This time was in addition to and separate from care provided by other practitioners on this day of service. I spent time reviewing and interpreting data from bedside monitors, laboratory results, and imaging, I spent time discussing the management of this critically ill patient with consultants and the medical staff and I spent time documenting in the medical record us Arnold Heard MD IN CLINIC/BEDSIDE ORDERABLES Fi nal Result * Tryptase (03/20/2025 2:34 PM CDT) Tryptase Level 1.7 <11.5 ng/mL [facility] Comment: Test Performed by: [facility] [address] [place] [id number] Home Care Coordinator: Laurie Robles Ph.D.; CLIA# [id number] Blood 03/20/2025 2:34 PM CDT 03/20/2025 3:20 PM CDT Narrative TAWNYA MILLS - 03/24/2025 3:34 PM CDT sent to lab; 03/21/2025 14:33:04 CDT [id number] us Arnold Heard MD LAB BLOOD ORDERABLES Final Resu lt Performing Organization Address City/[facility]/ZIP Co de Phone Number [address] [place] [employer] [address] [facility] ref [facility] * eGFR (03/20/2025 8:44 AM CDT) eGFR >90 >=60 mL/min/1. 73 [...] Current interpretive data was last reviewed 2021. Blood 03/20/2025 8:44 AM CDT 03/20/2025 8:57 AM CDT us Singh Conde MD LAB BLOOD ORDERABLES Final Result Performing Organization Address City/[facility]/ZIP Co de Phone Number [facility] [address] [place] [address] [employer] [place] [place] [address] * Folate (03/20/2025 8:44 AM CDT) Folic acid >20.0 >=5.0 ng/mL Blood 03/20/2025 8:44 AM CDT 03/20/2025 8:[address] [facility] LAB BLOOD ORDERABLES Fin al Result Performing Organization Address [facility] de Phone Number [address] [address] * Vitamin B12 (03/20/2025 8:44 AM CDT) [facility] Vitamin B12 447 230 - 1,250 pg/mL Blood 03/20/2025 8:44 AM CDT 03/20/2025 8:57 AM CDT [facility] BLOOD ORDERABLES Fin al Result Performing Organization Address [facility] Phone Number [address] [address] * (ABNORMAL) Basic metabolic panel (03/20/2025 8:44 AM CDT) [facility] Sodium 138 135 - 145 mmol/L Potassium, pl 4.1 3.3 - 4.9 mmol/L [facility] Chloride 106 97 - 110 mmol/L [facility] CO2 19(L) 22 - 32 mmol/L [facility] Anion gap 13 2 - 15 mmol/L [facility] BUN 12 6 - 25 mg/dL [facility] Creatinine 0.65 0.60 - 1.10 mg/dL [facility] Glucose 129 70 - 199 mg/dL [facility] Comment: Interpretive Data Fasting glucose >/= [...] Current interpretive data was last revised 2022. Calcium 9.7 8.5 - 10.3 mg/dL TAWNYA Blood 03/20/2025 8:44 AM CDT 03/20/2025 8:57 AM CDT Singh Conde MD LAB BLOOD ORDERABLES Final Result Performing Organization Address City/[facility]/ZIP Co de Phone Number TAWNYA [address] [facility] [place] [address] * ECG 12 lead (03/20/2025 8:26 AM CDT) Ventricular Rate EKG/Min 135 BPM [facility] Atrial Rate 135 BPM [facility] SD-Interval (MSEC) 138 ms [facility] QRS-Interval (MSEC) 98 ms [facility] QT-Interval (MSEC) 306 ms [facility] QTc 459 ms [facility] [place] 63 degrees [facility] [place] 70 degrees [facility] [place] 42 degrees [facility] Diagnosis Sinus tachycardia Non-specific change in ST segment in precordium When compared with ECG of 19-MAR-2025 16:36, No significant changes found Confirmed by ANGELA PADILLA D.O. ([id number]) on 03/20/2025 2:42:07 PM [facility] 03/20/2025 8:26 AM CDT 03/20/2025 2:42 PM CDT Singh Conde MD ECG ORDERABLES Final Result Performing Organization Address [facility] Co de Phone Number [facility] * eGFR (03/20/2025 6:45 AM CDT) eGFR >90 >=60 mL/min/1. 73 [...] Current interpretive data was last reviewed 2021. Blood 03/20/2025 6:45 AM CDT 03/20/2025 7:58 AM CDT Selena Baron DO LAB BLOOD ORDERABLES Fin al Result [place] [id number] [facility] [place] [address] * (ABNORMAL) Differential, auto (03/20/2025 6:45 AM CDT) Neutrophil abs 11.44(H) 1.50 - 6.50 K/cumm Imm gran abs 0.07 0.00 - 0.10 K/cumm [facility] Lymphocyte abs 0.87 0.80 - 3.30 K/cumm [facility] Monocyte abs 0.14(L) 0.20 - 0.80 K/cumm [facility] Eosinophil abs 0.00 0.00 - 0.50 K/cumm [facility] Basophil abs 0.02 0.00 - 0.10 K/cumm [facility] Neutrophil pct 91.2 % [facility] Comment: Interpretive Data Percent cell count reference ranges are not reported, since discordance with absolute values may lead to misinterpretation of CBC data. Current Interpretive Data was last revised on 2017. Imm gran pct 0.6 % [facility] Comment: Interpretive Data Percent cell count reference ranges are not reported, since discordance with absolute values may lead to misinterpretation of CBC data. Current Interpretive Data was last revised on 2017. Lymphocyte pct 6.9 % [facility] Comment: Interpretive Data Percent cell count reference ranges are not reported, since discordance with absolute values may lead to misinterpretation of CBC data. Current Interpretive Data was last revised on 2017. Monocyte pct 1.1 % [facility] Comment: Interpretive Data Percent cell count reference ranges are not reported, since discordance with absolute values may lead to misinterpretation of CBC data. Current Interpretive Data was last revised on 2017. Eosinophil pct 0.0 % [facility] Comment: Interpretive Data Percent cell count reference ranges are not reported, since discordance with absolute values may lead to misinterpretation of CBC data. Current Interpretive Data was last revised on 2017. Basophil pct 0.2 % [facility] Comment: Interpretive Data Percent cell count reference ranges are not reported, since discordance with absolute values may lead to misinterpretation of CBC data. Current Interpretive Data was last revised on 2017. Blood 03/20/2025 6:45 AM CDT 03/20/2025 7:58 AM CDT [facility] [employer] LAB BLOOD ORDERABLES Fin al Result Performing Organization Address [facility] Co de Phone Number [address] [place] [employer] [place] [address] * (ABNORMAL) Iron profile w/ IBC (03/20/2025 6:45 AM CDT) Pathologist [facility] Iron 20(L) 35 - 145 mcg/dL TIBC 483(H) 250 - 400 mcg/dL [facility] Transferrin saturation 4(L) 20 - 50 % [facility] Blood 03/20/2025 6:45 AM CDT 03/20/2025 6:47 AM CDT [facility] [place] LAB BLOOD ORDERABLES Fin al Result [address] [address] * (ABNORMAL) CBC with auto differential (03/20/2025 6:45 AM CDT) Pathologist [facility] WBC 12.54(H) 3.80 - 9.90 K/cumm Hgb 11.1(L) 11.9 - 15.5 g/dL [facility] Hct 35.7 35.6 - 45.5 % [facility] Plt 486(H) 150 - 400 K/cumm [facility] MPV 9.8 9.1 - 12.3 fL [facility] RBC 4.50 3.90 - 5.20 M/cumm [facility] MCV 79.3(L) 81.3 - 96.4 fL [facility] MCH 24.7(L) 27.1 - 33.3 pg [facility] MCHC 31.1(L) 32.3 - 35.7 g/dL [facility] RDW CV 15.5(H) 11.1 - 14.9 % [facility] RDW SD 44.4 35.7 - 48.1 fL [facility] NRBC abs 0.00 0.00 - 0.01 K/cumm [facility] Blood 03/20/2025 6:45 AM CDT 03/20/2025 7:58 AM CDT [facility] [employer] LAB BLOOD ORDERABLES Fin al Result Performing Organization Address City/[facility] Co de Phone Number [address] [place] [email or web address] [address] * Phosphorus (03/20/2025 6:45 AM CDT) Pathologist [facility] Phosphorus, pl 2.4 2.3 - 4.5 mg/dL Blood 03/20/2025 6:45 AM CDT 03/20/2025 7:58 AM CDT [facility] [employer] LAB BLOOD ORDERABLES Fin al Result Performing Organization Address City/[facility] Co de Phone Number [address] [place] [employer] [place] [address] * Magnesium (03/20/2025 6:45 AM CDT) Pathologist [facility] Magnesium 1.9 1.4 - 2.5 mg/dL Blood 03/20/2025 6:45 AM CDT 03/20/2025 7:58 AM CDT [facility] Jojo Baron LAB BLOOD ORDERABLES Fin al Result Performing Organization Address [facility] Co de Phone Number [address] [address] * Ferritin (03/20/2025 6:45 AM CDT) [facility] Ferritin 22 13 - 150 ng/mL Blood 03/20/2025 6:45 AM CDT 03/20/2025 6:47 AM CDT [facility] Jojo Baron LAB BLOOD ORDERABLES Fin al Result Performing Organization Address [facility] de Phone Number [address] [address] * (ABNORMAL) Comprehensive metabolic panel (03/20/2025 6:45 AM CDT) [facility] Sodium 139 135 - 145 mmol/L Potassium, pl 4.3 3.3 - 4.9 mmol/L [facility] Comment:Hemolyzed; Potassium value may be falsely elevated by as much as 1.0 mmol/L. Suggest redraw and reanalysis. Chloride 107 97 - 110 mmol/L [facility] CO2 19(L) 22 - 32 mmol/L [facility] Anion gap 13 2 - 15 mmol/L [facility] BUN 12 6 - 25 mg/dL [facility] Creatinine 0.67 0.60 - 1.10 mg/dL [facility] Glucose 129 70 - 199 mg/dL [facility] Comment: Interpretive Data Fasting glucose >/= [...] Current interpretive data was last revised 2022. Calcium 9.9 8.5 - 10.3 mg/dL [facility] Bilirubin, total 0.3 0.1 - 1.2 mg/dL [facility] Protein, pl 7.4 6.5 - 8.5 g/dL [facility] Albumin 4.4 3.5 - 5.0 g/dL [facility] Alk phos 95 40 - 130 Units/L [facility] ALT 23 7 - 45 Units/L [facility] AST 26 10 - 45 Units/L [facility] Comment:Hemolyzed; result ma y be falsely elevated Blood 03/20/2025 6:45 AM CDT 03/20/2025 7:58 AM CDT us Selena Baron DO LAB BLOOD ORDERABLES Fin al Result [facility] [address] [facility] [place] [address] * ECG 12 lead (03/19/2025 4:36 PM CDT) Pathologist [facility] Ventricular Rate EKG/Min 143 BPM [facility] Atrial Rate 143 BPM [facility] SD-Interval (MSEC) 104 ms [facility] QRS-Interval (MSEC) 98 ms [facility] QT-Interval (MSEC) 358 ms [facility] QTc 552 ms [facility] P [place] 23 degrees [facility] [place] 58 degrees [facility] [place] 46 degrees [facility] Diagnosis Sinus tachycardia with short SD Nonspecific T wave abnormality RSR' or QR pattern in V1 suggests right ventricular conduction delay Abnormal ECG When compared with ECG of 18-FEB-2025 22:00, No significant change was found Confirmed by BELIA CHU M.D. ([id number]) on 03/21/2025 6:49:05 PM [facility] 03/19/2025 4:36 PM CDT 03/21/2025 6:49 PM CDT us Nabil Jean MD ECG ORDERABLES Final Result [facility] * eGFR (03/19/2025 2:09 PM CDT) eGFR 90 >=60 mL/min/1. 73 m2 Comment: Interpretive Data [...] was last reviewed 2021. Testing performed by: [address] [address] Blood 03/19/2025 2:09 PM CDT 03/19/2025 2:23 PM CDT us Nabil Jean MD LAB BLOOD ORDERABLES F inal Result Performing Organization Address City/[facility] Co de Phone Number [facility] [address] [facility] [place] [address] * (ABNORMAL) Differential, auto (03/19/2025 2:09 PM CDT) Neutrophil abs 6.93(H) 1.50 - 6.50 K/cumm Comment:Testing performed by : [address] [address] Imm gran abs 0.03 0.00 - 0.10 K/cumm TAWNYA Comment:Testing performed by : [address] [address] Lymphocyte abs 2.80 0.80 - 3.30 K/cumm [facility] Comment:Testing performed by : [address], [place]., [address] Monocyte abs 0.90(H) 0.20 - 0.80 K/cumm [facility] Comment:Testing performed by : [address], [place]., [address] Eosinophil abs 0.21 0.00 - 0.50 K/cumm [facility] Comment:Testing performed by : [address], [place]., [address] Basophil abs 0.07 0.00 - 0.10 K/cumm [facility] Comment:Testing performed by : [address] [address] Neutrophil pct 63.4 % [facility] Comment: Interpretive Data Percent cell count reference ranges are not reported, since discordance with absolute values may lead to misinterpretation of CBC data. Current Interpretive Data was last revised on 2017. Testing performed by: [address] [address] Imm gran pct 0.3 % [facility] Comment: Interpretive Data Percent cell count reference ranges are not reported, since discordance with absolute values may lead to misinterpretation of CBC data. Current Interpretive Data was last revised on 2017. Testing performed by: [address] [address] Lymphocyte pct 25.6 % [facility] Comment: Interpretive Data Percent cell count reference ranges are not reported, since discordance with absolute values may lead to misinterpretation of CBC data. Current Interpretive Data was last revised on 2017. Testing performed by: [address] [address] Monocyte pct 8.2 % [facility] Comment: Interpretive Data Percent cell count reference ranges are not reported, since discordance with absolute values may lead to misinterpretation of CBC data. Current Interpretive Data was last revised on 2017. Testing performed by: [address] [address] Eosinophil pct 1.9 % [facility] Comment: Interpretive Data Percent cell count reference ranges are not reported, since discordance with absolute values may lead to misinterpretation of CBC data. Current Interpretive Data was last revised on 2017. Testing performed by: [address] [address] Basophil pct 0.6 % TAWNYA MILLS Comment: Interpretive Data Percent cell count reference ranges are not reported, since discordance with absolute values may lead to misinterpretation of CBC data. Current Interpretive Data was last revised on 2017. Testing performed by: [address] [address] Blood 03/19/2025 2:09 PM CDT 03/19/2025 2:23 PM CDT us Nabil Jean MD LAB BLOOD ORDERABLES F inal Result [facility] [place] [address] * (ABNORMAL) CBC with auto differential (03/19/2025 2:09 PM CDT) WBC 10.94(H) 3.80 - 9.90 K/cumm Comment:Testing performed by : [address] [address] Hgb 11.3(L) 11.9 - 15.5 g/dL TANWYA MILLS Comment:Testing performed by : [address] [address] Hct 36.6 35.6 - 45.5 % TAWNYA MILLS Comment:Testing performed by : [address] [address] Plt 466(H) 150 - 400 K/cumm TAWNYA MILLS Comment:Testing performed by : [address] [address] MPV 9.1 9.1 - 12.3 fL TAWNYA MILLS Comment:Testing performed by : [address] [address] RBC 4.58 3.90 - 5.20 M/cumm TAWNYA MILLS Comment:Testing performed by : [address] [place] [address] MCV 79.9(L) 81.3 - 96.4 fL TAWNYA Comment:Testing performed by : [address] [address] MCH 24.7(L) 27.1 - 33.3 pg TAWNYA MILLS Comment:Testing performed by : [address] [address] MCHC 30.9(L) 32.3 - 35.7 g/dL [facility] Comment:Testing performed by : [address] [address] RDW CV 15.2(H) 11.1 - 14.9 % [facility]A Comment:Testing performed by : [address] [address] RDW SD 44.1 35.7 - 48.1 fL TAWNYA MILLS Comment:Testing performed by : [address] [address] NRBC abs 0.00 0.00 - 0.01 K/cumm TAWNYA Comment:Testing performed by : [address], [address] Blood 03/19/2025 2:09 PM CDT 03/19/2025 2:23 PM CDT us Nabil Jean MD LAB BLOOD ORDERABLES F inal Result [facility] [address] [facility] Department of Laboratories [place], [place] [id number] * (ABNORMAL) Comprehensive metabolic panel (03/19/2025 2:09 PM CDT) Sodium 139 135 - 145 mmol/L Comment:Testing performed by : [address] [address] Potassium, pl 3.5 3.3 - 4.9 mmol/L TAWNYA MILLS Comment:Testing performed by : [address] [address] Chloride 102 97 - 110 mmol/L TAW[facility]A Comment:Testing performed by : [address] [address] CO2 21(L) 22 - 32 mmol/L [facility] Comment:Testing performed by : [address] [address] Anion gap 16(H) 2 - 15 mmol/L [facility] Comment:Testing performed by : [address] [address] BUN 19 6 - 25 mg/dL [facility] Comment:Testing performed by : [address], [place]., [address] Creatinine 0.87 0.60 - 1.10 mg/dL [facility] Comment:Testing performed by : [address] [address] Glucose 164 70 - 199 mg/dL [facility] Comment: Interpretive [...] was last revised 2022. Testing performed by: [address] [address] Calcium 10.0 8.5 - 10.3 mg/dL [facility] Comment:Testing performed by : [address] [address] Bilirubin, total 0.4 0.1 - 1.2 mg/dL [facility] Comment:Testing performed by : [address] [address] Protein, pl 7.8 6.5 - 8.5 g/dL [facility] Comment:Testing performed by : [address] [address] Albumin 4.5 3.5 - 5.0 g/dL [facility] Comment:Testing performed by : [address] [place] [address] Alk phos 100 40 - 130 Units/L [facility] Comment:Testing performed by : [address] [address] ALT 30 7 - 45 Units/L [facility] Comment:Testing performed by : [address], [address] AST 24 10 - 45 Units/L [facility] Comment:Testing performed by : [address], [address] Blood 03/19/2025 2:09 PM CDT 03/19/2025 2:23 PM CDT us Nabil Jean MD LAB BLOOD ORDERABLES F inal Result [facility] [address] [facility] [place] [address] * Cyclosporine A level trough (03/06/2025 9:36 AM CDT) [facility] Cyclosporine by Immunoassay 363 100 - 400 ng/mL [facility] - 01 Comment: Therapeutic: Renal Transplant 100 - 250 Liver Transplant 100 - 400 Cardiac Transplant 100 - 400 Bone Marrow 200 - 300 Detection Limit = 25 Cyclosporine assay performed by [employer] Immunoassay. If preferred testing methodology for cyclosporine is Liquid Chromatography Tandem Mass Spectrometry (LC-MS/MS), please use test code [id number]. For testing performed by Immunoassay, please use test code [id number]. Blood 03/06/2025 9:36 AM CDT 03/06/2025 Narrative [facility] - 03/07/2025 4:11 PM CDT Performed at: [address] [place] [id number] Home Care Coordinator: Lucio Ellison PhD, Phone: [phone] us Susan Suarez MD LAB BLOOD ORDERABLES Fi nal Result LABCO [facility] - 01 * (ABNORMAL) Microscopic Examination (03/06/2025 9:36 AM CDT) WBC, ur 0-5 0 - 5 /hpf [facility] - 01 RBC, ur 0-2 0 - 2 /hpf [facility] - 01 Epithelial cells, non-renal, ur >10(A) 0 - 10 /hpf [facility] - 01 Casts None seen None seen /lpf [facility] - 01 Bacteria, ur Moderate(A ) None seen/Few [facility] - 01 03/06/2025 9:36 AM CDT 03/06/2025 Narrative [facility] - 03/07/2025 9:11 AM CDT Performed at: [address] [place] [id number] Home Care Coordinator: Lucio Ellison PhD, Phone: [phone] Susan Suarez MD LAB BLOOD ORDERABLES Fi nal Result [facility] - 01 * (ABNORMAL) Urinalysis reflex to microscopic (03/06/2025 9:36 AM CDT) Pathologist [facility] Specific [place] 1.026 1.005 - 1.030 [facility] - 01 pH, ur 5.5 5.0 - 7.5 [facility] - 01 Color, ur Yellow Yellow [facility] - 01 Appearance, ur Clear Clear [facility] - 01 Leukocyte esterase, ur Trace(A) Negative [facility] - 01 Protein, ur Negative Negative/Tra ce [facility] - 01 Glucose, ur Negative Negative [facility] - 01 Ketones, ur Negative Negative [facility] - 01 Blood, ur Negative Negative [facility] - 01 Bilirubin, ur Negative Negative [facility] - 01 Urobilinogen, quant, ur 0.2 0.2 - 1.0 mg/dL [facility] - 01 Nitrites, ur Negative Negative [facility] - 01 Urinalysis, microscopic exam See below: [facility] - 01 Comment:Microscopic was doe cated and was performed. Urine 03/06/2025 9:36 AM CDT 03/06/2025 Narrative [facility] - 03/07/2025 9:11 AM CDT Performed at: 01 - [address], [place], [place] [id number] Home Care Coordinator: Lucio Ellison PhD, Phone: [phone] us Susan Suarez MD LAB URINE ORDERABLES Fi nal Result [facility] - 01 * (ABNORMAL) CBC with auto differential (03/06/2025 9:36 AM CDT) WBC 17.6(H) 3.4 - 10.8 x10E3/uL [facility] - 01 RBC 4.81 3.77 - 5.28 x10E6/uL [facility] - 01 Hgb 11.5 11.1 - 15.9 g/dL [facility] - 01 Hct 39.6 34.0 - 46.6 % [facility] - 01 MCV 82 79 - 97 fL [facility] - 01 MCH 23.9(L) 26.6 - 33.0 pg [facility] - 01 MCHC 29.0(L) 31.5 - 35.7 g/dL [facility] - 01 Rdw 15.4 11.7 - 15.4 % [facility] - 01 Platelets 477(H) 150 - 450 x10E3/uL [facility] - 01 Neutrophils pct 50 Not Estab. % [facility] - 01 Lymphs pct 38 Not Estab. % [facility] - 01 Monocytes pct 10 Not Estab. % [facility] - 01 Eosinophils pct 1 Not Estab. % [facility] - 01 Basophil pct 0 Not Estab. % [facility] - 01 Neutrophil abs 8.8(H) 1.4 - 7.0 x10E3/uL [facility] - 01 Lymphs (Absolute) 6.7(H) 0.7 - 3.1 x10E3/uL [facility] - 01 Monocyte abs 1.7(H) 0.1 - 0.9 x10E3/uL [facility] - 01 Eosinophils, abs 0.1 0.0 - 0.4 x10E3/uL [facility] - 01 Basophils, abs 0.1 0.0 - 0.2 x10E3/uL [facility] - 01 Immature Granulocytes 1 Not Estab. % [facility] - 01 Immature Grans (Abs) 0.1 0.0 - 0.1 x10E3/uL [facility] - 01 Blood 03/06/2025 9:36 AM CDT 03/06/2025 Narrative [facility] - 03/07/2025 9:11 AM CDT Performed at: - [address] [id number] Home Care Coordinator: Lucio Ellison PhD, Phone: [phone] us Susan Suarez MD LAB BLOOD ORDERABLES Fi nal Result [facility] - 01 * (ABNORMAL) Comprehensive metabolic panel (03/06/2025 9:36 AM CDT) Pathologist [facility] Glucose 82 70 - 99 mg/dL [facility] - 01 BUN 29(H) 6 - 20 mg/dL [facility] - 01 Creatinine, Serum 0.74 0.57 - 1.00 mg/dL [facility] - 01 BUN/creat ratio 39(H) 9 - 23 [facility] - 01 Sodium 138 134 - 144 mmol/L [facility] - 01 Potassium, sr 4.8 3.5 - 5.2 mmol/L [facility] - 01 Chloride 100 96 - 106 mmol/L [facility] - 01 CO2 23 20 - 29 mmol/L [facility] - 01 Calcium 9.6 8.7 - 10.2 mg/dL [facility] - 01 Protein, sr 6.6 6.0 - 8.5 g/dL [facility] - 01 Albumin 4.1 3.9 - 4.9 g/dL [facility] - 01 Globulin, Total 2.5 1.5 - 4.5 g/dL [facility] - 01 Bilirubin, Total 0.2 0.0 - 1.2 mg/dL [facility] - 01 Alk phos 72 44 - 121 IU/L [facility] - 01 Comment: Effective March 17, 2025 Alkaline Phosphatase reference interval will be changing to: Age Male Female 0 - 5 days 47 - 127 47 - 127 6 - 10 days 29 - 242 29 - 242 11 - 20 days 109 - 357 109 - 357 21 - 30 days 94 - 494 94 - 494 1 - 2 months 149 - 539 149 - 539 3 - 6 months 131 - 452 131 - 452 7 - 11 months 117 - 401 117 - 401 12 months - 6 years 158 - 369 158 - 369 7 - 12 years 150 - 409 150 - 409 13 years 156 - 435 78 - 227 14 years 114 - 375 64 - 161 15 years 88 - 279 56 - 134 16 years 74 - 207 51 - 121 17 years 63 - 161 47 - 113 18 - 20 years 51 - 125 42 - 106 21 - 50 years 47 - 123 41 - 116 51 - 80 years 49 - 135 51 - 125 >80 years 48 - 129 48 - 129 AST 18 0 - 40 IU/L [facility] - 01 ALT 39(H) 0 - 32 IU/L [facility] - 01 Blood 03/06/2025 9:36 AM CDT 03/06/2025 Narrative [facility] - 03/07/2025 9:11 AM CDT Performed at: [address] [place] [id number] Home Care Coordinator: Lucio Ellison PhD, Phone: [phone] us Susan Suaerz MD LAB BLOOD ORDERABLES Fi nal Result [facility] - 01 * (ABNORMAL) Urinalysis reflex to microscopic and culture Urine (02/20/2025 4:44 PM CDT) Color, ur Straw Yellow Comment:Testing performed by : [address] [address] Clarity, ur Cloudy(A) Clear [facility] Comment:Testing performed by : [address] [address] Specific gravity, ur 1.005 1.003 - 1.030 [facility] Comment:Testing performed by : [address] [address] pH, urine 6.5 [facility] Comment: Interpretive Data U rine pH is affected by diet, medications, systemic acid-base disturbances, and renal tubular function. pH may affect urinary stone formation. For example, urine pH below 6.0 may help reduce the tendency for calcium phosphate stones and pH greater than 6.0 may reduce the tendency for uric acid stone formation. Source: [facility] [employer] Current Interpretive Data was last revised on 2017 Testing performed by: [facility], [address] [place] [address]., [address] Protein, ur ql Negative Negative [facility]A Comment:Testing performed by : [address] [address] Glucose, ur ql Negative Negative [facility]A Comment:Testing performed by : [address], [place]., [address] Ketones, ur Negative Negative [facility]A Comment:Testing performed by : [address] [address] Bilirubin, ur Negative Negative [facility] Comment:Testing performed by : [address], [place]., [address] Blood, ur Negative Negative [facility]A Comment:Testing performed by : [address] [address] Urobilinogen, ur <2.0 <2.0 mg/dL [facility]A Comment:Testing performed by : [address] [address] Nitrite, ur Negative Negative [facility]A Comment:Testing performed by : [address], [place]., [address] Leukocyte esterase, ur Negative Negative [facility] Comment:Testing performed by : [address] [address] UA reflex comment Reflex conditions for microscopic UA and culture not met. [facility]A Comment:Testing performed by : [address] [address] Urine 02/20/2025 4:44 PM CDT 02/20/2025 4:48 PM CDT us Christine Greco MD LAB MICROBIOLOGY - GENERA L ORDERABLES Final Result TAWNYA MILLS [address] [facility] Department of Laboratories [place], [place] [id number] * XR Neck Soft Tissue (02/20/2025 4:14 PM CDT) Anatomical Region Laterality Modality Head and Neck N/A Computed Radiogr aphy 02/20/2025 6:04 PM CDT Narrative 02/20/2025 6:05 PM CDT EXAM DESCRIPTION: XR NECK SOFT TISSUE REASON FOR STUDY: sensation of neck sweling TECHNIQUE: AP and lateral radiographic image of the soft tissues of the neck. COMPARISON: 09/28/2024 FINDINGS: SOFT TISSUES: The epiglottis is grossly normal in thickness. There is no definite evidence of subglottic airway narrowing or hypopharyngeal distention. BONY STRUCTURES: There is mild reversal of the normal cervical lordotic curvature, which may be related to muscle spasms. There are minimal to mild multilevel degenerative changes cervical spine with uncovertebral hypertrophy. LUNG APICES: Normal. OTHER: No radiopaque foreign body. No other significant finding. IMPRESSION: 1. No definite evidence of acute abnormality involving the neck soft tissues. THIS IS AN ELECTRONICALLY VERIFIED FINAL REPORT 02/20/2025 6:05 PM - Electronically signed by Santy Wyman D.O. PS: PS Report ID: [id number] Reading Location: [id number] Procedure Note Santy Wyman DO - 02/20/2025 EXAM DESCRIPTION: XR NECK SOFT TISSUE REASON FOR STUDY: sensation of neck sweling TECHNIQUE: AP and lateral radiographic image of the soft tissues of the neck. COMPARISON: 09/28/2024 FINDINGS: SOFT TISSUES: The epiglottis is grossly normal in thickness. There is no definite evidence of subglottic airway narrowing orhypopharyngeal distention. BONY STRUCTURES: There is mild reversal of the normal cervical lordotic curvature, which may be related to muscle spasms. There are minimal tomild multilevel degenerative changes cervical spine with uncovertebralhypertrophy. LUNG APICES: Normal. OTHER: No radiopaque foreign body. No other significant finding. IMPRESSION: 1. No definite evidence of acute abnormality involving the neck soft tissues. THIS IS AN ELECTRONICALLY VERIFIED FINAL REPORT 02/20/2025 6:05 PM - Electronically signed by Santy Wyman D.O. 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 States she took her epi pen approx 10 minutes before arrival. Throat feels tight and tongue and lips are tingly. Air way open and no respiratory distress noted. Hx of jaw dislocations. TECHNIQUE: 4 radiographic view(s) of the mandible . COMPARISON: 09/23/2024 FINDINGS: There is no definite evidence of acute displaced fracture involving the mandible. There is anterior inferior dislocation of the left mandible, which is similar the previously visualized left mandibular dislocation of the 09/23/2024. The visualized soft tissues are grossly stable. IMPRESSION: 1. No definite evidence of acute displaced fracture involving the mandible. 2. Anterior inferior dislocation of the left mandible, which is similar to the previously visualized left mandibular dislocation of the 09/23/2024. THIS IS AN ELECTRONICALLY VERIFIED FINAL REPORT 02/20/2025 6:04 PM - Electronically signed by Santy Wyman D.O. 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 States she took her epi pen approx 10 minutes before arrival. Throat feels tight and tongue and lips are tingly. Air way openand no respiratory distress noted. Hx of jaw dislocations. TECHNIQUE: 4 radiographic view(s) of the mandible . COMPARISON: 09/23/2024 FINDINGS: There is no definite evidence of acute displaced fractureinvolving the mandible. There is anterior inferior dislocation of the leftmandible, which is similar the previously visualized left mandibular dislocation ofthe 09/23/2024. The visualized soft tissues are grossly stable. IMPRESSION: 1. No definite evidence of acute displaced fracture involving themandible. 2. Anterior inferior dislocation of the left mandible, which is similarto the previously visualized left mandibular dislocation of the 09/23/2024. THIS IS AN ELECTRONICALLY VERIFIED FINAL REPORT 02/20/2025 6:04 PM - Electronically signed by Santy Wyman D.O. PS: PS Report ID: [id number] Reading Location: [id number] Christine Greco MD IMG XR PROCEDURES Final R esult * (ABNORMAL) Blood smear review (02/20/2025 2:07 PM CDT) [facility] RBC morphology Consistent with RBC Indicies Comment:Testing performed by : [address] [address] Platelet estimate Increased(A) TAWNYA MILLS Comment:Testing performed by : [address] [address] Blood 02/20/2025 2:07 PM CDT 02/20/2025 2:15 PM CDT Christine Greco MD LAB BLOOD ORDERABLES Ruthy l Result TAWNYA MILLS [address] [facility] [place] [address] * eGFR (02/20/2025 2:07 PM CDT) [facility] eGFR >90 >=60 mL/min/1. 73 m2 [...] was last reviewed 2021. Testing performed by: [address] [address] Blood 02/20/2025 2:07 PM CDT 02/20/2025 2:15 PM CDT us Christine Greco MD LAB BLOOD ORDERABLES Ruthy trivedi Result YABAILEY [address] [facility] Department of Laboratories [place], [place] [id number] * (ABNORMAL) Differential, auto (02/20/2025 2:07 PM CDT) [facility] Neutrophil abs 8.40(H) 1.50 - 6.50 K/cumm Comment:Testing performed by : [address] [address] Imm gran abs 0.13(H) 0.00 - 0.10 K/cumm TAWNYA MILLS Comment:Testing performed by : [address] [address] Lymphocyte abs 6.69(H) 0.80 - 3.30 K/cumm [facility]A MILLS Comment:Testing performed by : [address] [address] Monocyte abs 1.54(H) 0.20 - 0.80 K/cumm [facility] Comment:Testing performed by : [address] [address] Eosinophil abs 0.02 0.00 - 0.50 K/cumm [facility] Comment:Testing performed by : [address] [address] Basophil abs 0.09 0.00 - 0.10 K/cumm [facility] Comment:Testing performed by : [address] [address] Neutrophil pct 49.8 % [facility] Comment: Interpretive Data Percent cell count reference ranges are not reported, since discordance with absolute values may lead to misinterpretation of CBC data. Current Interpretive Data was last revised on 2017. Testing performed by: [address] [address] Imm gran pct 0.8 % [facility] Comment: Interpretive Data Percent cell count reference ranges are not reported, since discordance with absolute values may lead to misinterpretation of CBC data. Current Interpretive Data was last revised on 2017. Testing performed by: [address] [address] Lymphocyte pct 39.7 % [facility] Comment: Interpretive Data Percent cell count reference ranges are not reported, since discordance with absolute values may lead to misinterpretation of CBC data. Current Interpretive Data was last revised on 2017. Testing performed by: [address] [address] Monocyte pct 9.1 % [facility] Comment: Interpretive Data Percent cell count reference ranges are not reported, since discordance with absolute values may lead to misinterpretation of CBC data. Current Interpretive Data was last revised on 2017. Testing performed by: [address] [address] Eosinophil pct 0.1 % [facility] Comment: Interpretive Data Percent cell count reference ranges are not reported, since discordance with absolute values may lead to misinterpretation of CBC data. Current Interpretive Data was last revised on 2017. Testing performed by: [address] [address] Basophil pct 0.5 % [facility] M[facility]S Comment: Interpretive Data Percent cell count reference ranges are not reported, since discordance with absolute values may lead to misinterpretation of CBC data. Current Interpretive Data was last revised on 2017. Testing performed by: [address] [address] Blood 02/20/2025 2:07 PM CDT 02/20/2025 2:15 PM CDT us Christine Greco MD LAB BLOOD ORDERABLES Ruthy trivedi Result [facility] [place] [address] * (ABNORMAL) CBC with auto differential (02/20/2025 2:07 PM CDT) WBC 16.87(H) 3.80 - 9.90 K/cumm Comment:Testing performed by : [address] [address] Hgb 11.3(L) 11.9 - 15.5 g/dL [facility]A MILLS Comment:Testing performed by : [address] [address] Hct 36.0 35.6 - 45.5 % [facility]A MILLS Comment:Testing performed by : [address] [address] Plt 582(H) 150 - 400 K/cumm TAWNYA MILLS Comment:Testing performed by : [address] [address] MPV 9.5 9.1 - 12.3 fL [facility] MILLS Comment:Testing performed by : [address] [address] RBC 4.67 3.90 - 5.20 M/cumm [facility]A MILLS Comment:Testing performed by : [address] [address] MCV 77.1(L) 81.3 - 96.4 fL [facility]A MILLS Comment:Testing performed by : [address] [address] MCH 24.2(L) 27.1 - 33.3 pg [facility]A MILLS Comment:Testing performed by : [address] [address] MCHC 31.4(L) 32.3 - 35.7 g/dL [facility]A MILLS Comment:Testing performed by : [address] [address] RDW CV 15.0(H) 11.1 - 14.9 % TAWNYA MILLS Comment:Testing performed by : [address] [address] RDW SD 41.6 35.7 - 48.1 fL [facility]A MILLS Comment:Testing performed by : [address] [address] NRBC abs 0.00 0.00 - 0.01 K/cumm TAWYNA MILLS Comment:Testing performed by : [address] [address] Blood 02/20/2025 2:07 PM CDT 02/20/2025 2:15 PM CDT Christine Greco MD LAB BLOOD ORDERABLES Edit ed Result - Final [facility]BAILEY [address] [facility] Department of Laboratories [place], [place] [id number] * (ABNORMAL) Comprehensive metabolic panel (02/20/2025 2:07 PM CDT) Pathologist [facility] Sodium 142 135 - 145 mmol/L Comment:Testing performed by : [address] [address] Potassium, pl 2.6(L) 3.3 - 4.9 mmol/L TAWNYA MILLS Comment:Testing performed by : [address] [address] Chloride 102 97 - 110 mmol/L TAW[facility]A MILLS Comment:Testing performed by : [address] [address] CO2 24 22 - 32 mmol/L [facility] Comment:Testing performed by : [address] [address] Anion gap 16(H) 2 - 15 mmol/L [facility] Comment:Testing performed by : [address], [place]., [address] BUN 17 6 - 25 mg/dL [facility] Comment:Testing performed by : [address], [place]., [address] Creatinine 0.80 0.60 - 1.10 mg/dL [facility] Comment:Testing performed by : [address], [place]., [address] Glucose 127 70 - 199 mg/dL [facility] Comment: Interpretive Data Fasting glucose >/= [...] was last revised 2022. Testing performed by: [address] [address] Calcium 9.3 8.5 - 10.3 mg/dL [facility] Comment:Testing performed by : [address] [address] Bilirubin, total 0.2 0.1 - 1.2 mg/dL [facility] Comment:Testing performed by : [address] [address] Protein, pl 7.5 6.5 - 8.5 g/dL [facility]A Comment:Testing performed by : [address] [address] Albumin 4.8 3.5 - 5.0 g/dL [facility]A Comment:Testing performed by : [address] [address] Alk phos 110 40 - 130 Units/L TAWNYA MILLS Comment:Testing performed by : [facility], [address] [place] [address]., [address] ALT 20 7 - 45 Units/L TAWNYA MILLS Comment:Testing performed by : [address] [address] AST 20 10 - 45 Units/L [facility]WNYA MILLS Comment:Testing performed by : [address] [address] Blood 02/20/2025 2:07 PM CDT 02/20/2025 2:15 PM CDT us Christine Greco MD LAB BLOOD ORDERABLES Ruthy trivedi Result TAWNYA [address] [facility] [place] [address] * eGFR (02/18/2025 10:05 PM CDT) eGFR >90 >=60 mL/min/1. 73 [...] was last reviewed 2021. Testing performed by: [address] [address] Blood 02/18/2025 10:0 5 PM CDT 02/18/2025 10:12 PM CDT us Deisy Blackwell MD LAB BLOOD ORDERABLES Fin al Result TAWNYA [address] [facility] [place] [address] * (ABNORMAL) Differential, auto (02/18/2025 10:05 PM CDT) Neutrophil abs 5.05 1.50 - 6.50 K/cumm Comment:Testing performed by : [address] [address] Imm gran abs 0.02 0.00 - 0.10 K/cumm [facility]A Comment:Testing performed by : [address] [address] Lymphocyte abs 4.49(H) 0.80 - 3.30 K/cumm [facility] Comment:Testing performed by : [address] [address] Monocyte abs 0.87(H) 0.20 - 0.80 K/cumm [facility] Comment:Testing performed by : [address] [address] Eosinophil abs 0.06 0.00 - 0.50 K/cumm [facility] Comment:Testing performed by : [address] [address] Basophil abs 0.08 0.00 - 0.10 K/cumm [facility] Comment:Testing performed by : [address] [address] Neutrophil pct 47.7 % [facility] Comment: Interpretive Data Percent cell count reference ranges are not reported, since discordance with absolute values may lead to misinterpretation of CBC data. Current Interpretive Data was last revised on 2017. Testing performed by: [address] [address] Imm gran pct 0.2 % [facility] Comment: Interpretive Data Percent cell count reference ranges are not reported, since discordance with absolute values may lead to misinterpretation of CBC data. Current Interpretive Data was last revised on 2017. Testing performed by: [address] [place] [address] Lymphocyte pct 42.5 % [facility] Comment: Interpretive Data Percent cell count reference ranges are not reported, since discordance with absolute values may lead to misinterpretation of CBC data. Current Interpretive Data was last revised on 2017. Testing performed by: [address] [address] Monocyte pct 8.2 % [facility] Comment: Interpretive Data Percent cell count reference ranges are not reported, since discordance with absolute values may lead to misinterpretation of CBC data. Current Interpretive Data was last revised on 2017. Testing performed by: [address] [address] Eosinophil pct 0.6 % [facility] Comment: Interpretive Data Percent cell count reference ranges are not reported, since discordance with absolute values may lead to misinterpretation of CBC data. Current Interpretive Data was last revised on 2017. Testing performed by: [address] [address] Basophil pct 0.8 % [facility] Comment: Interpretive Data Percent cell count reference ranges are not reported, since discordance with absolute values may lead to misinterpretation of CBC data. Current Interpretive Data was last revised on 2017. Testing performed by: [address] [address] Blood 02/18/2025 10:0 5 PM CDT 02/18/2025 10:12 PM CDT us Deisy Blackwell MD LAB BLOOD ORDERABLES Fin al Result TAWNYA [address] [facility] [place] [address] * (ABNORMAL) CBC with auto differential (02/18/2025 10:05 PM CDT) Pathologist [facility] WBC 10.57(H) 3.80 - 9.90 K/cumm Comment:Testing performed by : [address] [address] Hgb 11.5(L) 11.9 - 15.5 g/dL [facility]A Comment:Testing performed by : [address], [address] Hct 37.1 35.6 - 45.5 % [facility] Comment:Testing performed by : [address] [address] Plt 501(H) 150 - 400 K/cumm [facility] Comment:Testing performed by : [address] [address] MPV 9.4 9.1 - 12.3 fL [facility] Comment:Testing performed by : [address], [address] RBC 4.72 3.90 - 5.20 M/cumm [facility] Comment:Testing performed by : [address] [address] MCV 78.6(L) 81.3 - 96.4 fL [facility] Comment:Testing performed by : [address] [address] MCH 24.4(L) 27.1 - 33.3 pg [facility] Comment:Testing performed by : [address] [address] MCHC 31.0(L) 32.3 - 35.7 g/dL [facility] Comment:Testing performed by : [address] [address] RDW CV 15.0(H) 11.1 - 14.9 % [facility] Comment:Testing performed by : [address] [address] RDW SD 42.7 35.7 - 48.1 fL [facility] Comment:Testing performed by : [address] [address] NRBC abs 0.00 0.00 - 0.01 K/cumm [facility] Comment:Testing performed by : [address] [address] Blood 02/18/2025 10:0 5 PM CDT 02/18/2025 10:12 PM CDT us Deisy Blackwell MD LAB BLOOD ORDERABLES Fin al Result TAWNYA [address] [facility] [place] [address] * (ABNORMAL) Comprehensive metabolic panel (02/18/2025 10:05 PM CDT) Sodium 142 135 - 145 mmol/L Comment:Testing performed by : [address] [address] Potassium, pl 3.5 3.3 - 4.9 mmol/L [facility]A Comment: Hemolyzed; Potassium value may be falsely elevated by as much as 1.0 mmol/L. Suggest redraw and reanalysis. Testing performed by: [address] [address] Chloride 104 97 - 110 mmol/L [facility] Comment:Testing performed by : [address] [address] CO2 22 22 - 32 mmol/L [facility] Comment:Testing performed by : [address] [address] Anion gap 16(H) 2 - 15 mmol/L [facility] Comment:Testing performed by : [address] [address] BUN 14 6 - 25 mg/dL [facility] Comment:Testing performed by : [address] [address] Creatinine 0.71 0.60 - 1.10 mg/dL [facility] Comment:Testing performed by : [address] [address] Glucose 135 70 - 199 mg/dL [facility]A Comment: Interpretive [...] was last revised 2022. Testing performed by: [address] [address] Calcium 9.7 8.5 - 10.3 mg/dL [facility] Comment:Testing performed by : [address] [address] Bilirubin, total <0.2 0.1 - 1.2 mg/dL [facility] Comment:Testing performed by : [address] [address] Protein, pl 7.7 6.5 - 8.5 g/dL [facility] Comment:Testing performed by : [address] [address] Albumin 4.5 3.5 - 5.0 g/dL [facility] Comment:Testing performed by : [address] [address] Alk phos 110 40 - 130 Units/L [facility] Comment:Testing performed by : [address] [address] ALT 26 7 - 45 Units/L [facility] Comment:Testing performed by : [address] [address] AST 22 10 - 45 Units/L [facility] Comment: Hemolyzed; result may be falsely elevated Testing performed by: [address] [address] Blood 02/18/2025 10:0 5 PM CDT 02/18/2025 10:12 PM CDT us Deisy Blackwell MD LAB BLOOD ORDERABLES Fin al Result TAWNYA [address] [facility] [place] [address] * ECG 12 lead (02/18/2025 10:00 PM CDT) [facility] Ventricular Rate EKG/Min 143 BPM [facility] Atrial Rate 143 BPM [facility] SD-Interval (MSEC) 104 ms [facility] QRS-Interval (MSEC) 98 ms [facility] QT-Interval (MSEC) 360 ms [facility] QTc 555 ms [facility] P [place] 38 degrees [facility] R [place] 41 degrees [facility] T [place] 50 degrees [facility] Diagnosis Sinus tachycardia with short SD Nonspecific T wave abnormality Abnormal ECG When compared with ECG of 31-JAN-2025 23:54, Nonspecific T wave abnormality, worse in Anterolateral leads Confirmed by ILSA MAHMOOD M.D. ([id number]) on 02/19/2025 4:42:53 PM [facility] 02/18/2025 10:0 0 PM CDT 02/19/2025 4:42 PM CDT us Deisy Blackwell MD ECG ORDERABLES Final Re sult [facility] * eGFR (02/16/2025 1:22 PM CDT) eGFR >90 >=60 mL/min/1. 73 [...] reviewed 2021. Testing performed by: [facility], [address] [place] [address]., [address] Blood 02/16/2025 1:22 PM CDT 02/16/2025 1:25 PM CDT us Ferdinand Horacioforest DO LAB BLOOD ORDERABLES Final Res ult TAWNYA [address] [facility] [place] [address] * (ABNORMAL) Differential, auto (02/16/2025 1:22 PM CDT) Neutrophil abs 6.93(H) 1.50 - 6.50 K/cumm Comment:Testing performed by : [address] [address] Imm gran abs 0.04 0.00 - 0.10 K/cumm [facility]A Comment:Testing performed by : [address] [address] Lymphocyte abs 2.41 0.80 - 3.30 K/cumm [facility]A Comment:Testing performed by : [address] [address] Monocyte abs 0.73 0.20 - 0.80 K/cumm [facility] Comment:Testing performed by : [address] [address] Eosinophil abs 0.07 0.00 - 0.50 K/cumm [facility]A Comment:Testing performed by : [address] [address] Basophil abs 0.06 0.00 - 0.10 K/cumm [facility]A Comment:Testing performed by : [address] [address] Neutrophil pct 67.7 % [facility] Comment: Interpretive Data Percent cell count reference ranges are not reported, since discordance with absolute values may lead to misinterpretation of CBC data. Current Interpretive Data was last revised on 2017. Testing performed by: [address] [address] Imm gran pct 0.4 % [facility] Comment: Interpretive Data Percent cell count reference ranges are not reported, since discordance with absolute values may lead to misinterpretation of CBC data. Current Interpretive Data was last revised on 2017. Testing performed by: [address] [address] Lymphocyte pct 23.5 % [facility] Comment: Interpretive Data Percent cell count reference ranges are not reported, since discordance with absolute values may lead to misinterpretation of CBC data. Current Interpretive Data was last revised on 2017. Testing performed by: [address] [address] Monocyte pct 7.1 % [facility] Comment: Interpretive Data Percent cell count reference ranges are not reported, since discordance with absolute values may lead to misinterpretation of CBC data. Current Interpretive Data was last revised on 2017. Testing performed by: [address] [address] Eosinophil pct 0.7 % [facility] Comment: Interpretive Data Percent cell count reference ranges are not reported, since discordance with absolute values may lead to misinterpretation of CBC data. Current Interpretive Data was last revised on 2017. Testing performed by: [address] [address] Basophil pct 0.6 % [facility] Comment: Interpretive Data Percent cell count reference ranges are not reported, since discordance with absolute values may lead to misinterpretation of CBC data. Current Interpretive Data was last revised on 2017. Testing performed by: [address] [address] Blood 02/16/2025 1:22 PM CDT 02/16/2025 1:25 PM CDT us Ferdinand Rivera DO LAB BLOOD ORDERABLES Final Res ult [facility] [address] [facility] [place] [address] * (ABNORMAL) Urinalysis reflex to microscopic and culture Urine (02/16/2025 1:22 PM CDT) Color, ur Straw Yellow Comment:Testing performed by : [address] [address] Clarity, ur Clear Clear [facility]A Comment:Testing performed by : [address] [address] Specific gravity, ur 1.005 1.003 - 1.030 [facility] Comment:Testing performed by : [address] [address] pH, urine 6.0 [facility]A Comment: Interpretive Data U rine pH is affected by diet, medications, systemic acid-base disturbances, and renal tubular function. pH may affect urinary stone formation. For example, urine pH below 6.0 may help reduce the tendency for calcium phosphate stones and pH greater than 6.0 may reduce the tendency for uric acid stone formation. Source: [facility] [employer] Current Interpretive Data was last revised on 2017 Testing performed by: [address] [address] Protein, ur ql Negative Negative [facility] Comment:Testing performed by : [address] [address] Glucose, ur ql Negative Negative [facility] Comment:Testing performed by : [address] [address] Ketones, ur Negative Negative [facility] Comment:Testing performed by : [address] [address] Bilirubin, ur Negative Negative [facility] Comment:Testing performed by : [address] [address] Blood, ur Trace(A) Negative [facility] Comment:Testing performed by : [address] [address] Urobilinogen, ur <2.0 <2.0 mg/dL [facility] Comment:Testing performed by : [address] [address] Nitrite, ur Negative Negative [facility] Comment:Testing performed by : [address] [address] Leukocyte esterase, ur Negative Negative [facility] Comment:Testing performed by : [address] [address] UA reflex comment Reflex to microscopic UA will be performed. [facility]A Comment:Testing performed by : [address] [address] Urine 02/16/2025 1:22 PM CDT 02/16/2025 1:25 PM CDT Ferdinand Rivera DO LAB MICROBIOLOGY - GENERAL ORD ERABLES Final Result [facility] [address] [facility] [place] [address] * (ABNORMAL) CBC with auto differential (02/16/2025 1:22 PM CDT) WBC 10.24(H) 3.80 - 9.90 K/cumm Comment:Testing performed by : [address] [address] Hgb 11.7(L) 11.9 - 15.5 g/dL [facility] Comment:Testing performed by : [address] [address] Hct 36.8 35.6 - 45.5 % [facility] Comment:Testing performed by : [address] [address] Plt 356 150 - 400 K/cumm [facility] Comment:Testing performed by : [address] [address] MPV 9.3 9.1 - 12.3 fL [facility] Comment:Testing performed by : [address], [address] RBC 4.79 3.90 - 5.20 M/cumm [facility] Comment:Testing performed by : [address] [address] MCV 76.8(L) 81.3 - 96.4 fL [facility] Comment:Testing performed by : [address] [address] MCH 24.4(L) 27.1 - 33.3 pg [facility] Comment:Testing performed by : [address], [address] MCHC 31.8(L) 32.3 - 35.7 g/dL [facility] Comment:Testing performed by : [address] [address] RDW CV 14.9 11.1 - 14.9 % [facility] Comment:Testing performed by : [address] [address] RDW SD 41.4 35.7 - 48.1 fL [facility] Comment:Testing performed by : [address] [address] NRBC abs 0.00 0.00 - 0.01 K/cumm [facility] Comment:Testing performed by : [address], [place]., [address] Blood 02/16/2025 1:22 PM CDT 02/16/2025 1:25 PM CDT us Ferdinand Rivera DO LAB BLOOD ORDERABLES Final Res ult Performing Organization Address City/State/[facility] Co de Phone Number [facility]WNYA [address] [facility] Department [place] [address] * (ABNORMAL) Urinalysis, microscopic only (02/16/2025 1:22 PM CDT) WBC, ur 6-10(A) 0 - 5 /HPF Comment:Testing performed by : [address] [address] RBC, ur 3-5(A) 0 - 2 /HPF [facility] Comment:Testing performed by : [address] [address] Epithelial cells, squamous, ur >50(A) 0 - 5 /HPF [facility] Comment:Testing performed by : [address] [address] Bacteria, ur Trace(A) [facility] Comment:Testing performed by : [address] [address] Culture Reflex Comment Reflex conditions for urine culture (WBC >10) not met. [facility] Comment:Testing performed by : [address] [address] Urine 02/16/2025 1:22 PM CDT 02/16/2025 1:25 PM CDT us Ferdniand Rivera DO LAB URINE ORDERABLES Final Res ult [facility] [address] [facility] [place] [address] * (ABNORMAL) Comprehensive metabolic panel (02/16/2025 1:22 PM CDT) Sodium 140 135 - 145 mmol/L Comment:Testing performed by : [address] [address] Potassium, pl 3.1(L) 3.3 - 4.9 mmol/L [facility] Comment:Testing performed by : [address] [address] Chloride 103 97 - 110 mmol/L [facility] Comment:Testing performed by : [address] [address] CO2 20(L) 22 - 32 mmol/L [facility] Comment:Testing performed by : [address] [address] Anion gap 17(H) 2 - 15 mmol/L [facility] Comment:Testing performed by : [address] [address] BUN 11 6 - 25 mg/dL [facility] Comment:Testing performed by : [address] [address] Creatinine 0.76 0.60 - 1.10 mg/dL [facility] Comment:Testing performed by : [address] [address] Glucose 128 70 - 199 mg/dL [facility] Comment: Interpretive [...] was last revised 2022. Testing performed by: [address] [address] Calcium 9.4 8.5 - 10.3 mg/dL [facility] Comment:Testing performed by : [address] [address] Bilirubin, total 0.3 0.1 - 1.2 mg/dL [facility] Comment:Testing performed by : [address] [address] Protein, pl 7.4 6.5 - 8.5 g/dL [facility] Comment:Testing performed by : [address] [address] Albumin 4.4 3.5 - 5.0 g/dL [facility] Comment:Testing performed by : [address] [address] Alk phos 110 40 - 130 Units/L [facility] Comment:Testing performed by : [address] [address] ALT 34 7 - 45 Units/L [facility] Comment:Testing performed by : [address] [address] AST 31 10 - 45 Units/L [facility] Comment:Testing performed by : [address] [address] Blood 02/16/2025 1:22 PM CDT 02/16/2025 1:25 PM CDT us Ferdinand Rivera DO LAB BLOOD ORDERABLES Final Res ult [facility] [address] [facility] [place] [address] * eGFR (02/02/2025 3:32 AM CDT) eGFR >90 >=60 mL/min/1. 73 [...] was last reviewed 2021. Testing performed by: [address] [address] Blood 02/02/2025 3:32 AM CDT 02/02/2025 4:43 AM CDT us Dianna Machado NP LAB BLOOD ORDERABLES Final Result [facility] [address] [facility] Department [place] [address] * (ABNORMAL) Differential, auto (02/02/2025 3:32 AM CDT) Neutrophil abs 8.71(H) 1.50 - 6.50 K/cumm Comment:Testing performed by : [address] [address] Imm gran abs 0.04 0.00 - 0.10 K/cumm [facility] Comment:Testing performed by : [address] [address] Lymphocyte abs 2.21 0.80 - 3.30 K/cumm [facility] Comment:Testing performed by : [address] [address] Monocyte abs 0.93(H) 0.20 - 0.80 K/cumm [facility] Comment:Testing performed by : [address] [address] Eosinophil abs 0.02 0.00 - 0.50 K/cumm [facility] Comment:Testing performed by : [address] [address] Basophil abs 0.05 0.00 - 0.10 K/cumm [facility] Comment:Testing performed by : [address] [address] Neutrophil pct 72.8 % [facility] Comment: Interpretive Data Percent cell count reference ranges are not reported, since discordance with absolute values may lead to misinterpretation of CBC data. Current Interpretive Data was last revised on 2017. Testing performed by: [address] [address] Imm gran pct 0.3 % [facility] Comment: Interpretive Data Percent cell count reference ranges are not reported, since discordance with absolute values may lead to misinterpretation of CBC data. Current Interpretive Data was last revised on 2017. Testing performed by: [address] [address] Lymphocyte pct 18.5 % [facility] Comment: Interpretive Data Percent cell count reference ranges are not reported, since discordance with absolute values may lead to misinterpretation of CBC data. Current Interpretive Data was last revised on 2017. Testing performed by: [address] [address] Monocyte pct 7.8 % [facility] Comment: Interpretive Data Percent cell count reference ranges are not reported, since discordance with absolute values may lead to misinterpretation of CBC data. Current Interpretive Data was last revised on 2017. Testing performed by: [address] [address] Eosinophil pct 0.2 % [facility] Comment: Interpretive Data Percent cell count reference ranges are not reported, since discordance with absolute values may lead to misinterpretation of CBC data. Current Interpretive Data was last revised on 2017. Testing performed by: [address] [address] Basophil pct 0.4 % [facility] Comment: Interpretive Data Percent cell count reference ranges are not reported, since discordance with absolute values may lead to misinterpretation of CBC data. Current Interpretive Data was last revised on 2017. Testing performed by: [address] [address] Blood 02/02/2025 3:32 AM CDT 02/02/2025 4:43 AM CDT us Dianna Machado [employer] LAB BLOOD ORDERABLES Final Result [facility] [address] [facility] Department [place] [address] * (ABNORMAL) CBC with auto differential (02/02/2025 3:32 AM CDT) WBC 11.96(H) 3.80 - 9.90 K/cumm Comment:Testing performed by : [address] [address] Hgb 9.8(L) 11.9 - 15.5 g/dL [facility] Comment:Testing performed by : [address] [address] Hct 31.7(L) 35.6 - 45.5 % [facility] Comment:Testing performed by : [address] [address] Plt 385 150 - 400 K/cumm [facility] Comment:Testing performed by : [address] [address] MPV 10.3 9.1 - 12.3 fL [facility] Comment:Testing performed by : [address] [address] RBC 3.99 3.90 - 5.20 M/cumm TANWYA Comment:Testing performed by : [address] [address] MCV 79.4(L) 81.3 - 96.4 fL [facility] Comment:Testing performed by : [address] [address] MCH 24.6(L) 27.1 - 33.3 pg [facility] Comment:Testing performed by : [address] [address] MCHC 30.9(L) 32.3 - 35.7 g/dL [facility] Comment:Testing performed by : [address] [address] RDW CV 16.0(H) 11.1 - 14.9 % [facility] Comment:Testing performed by : [address], [address] RDW SD 45.8 35.7 - 48.1 fL [facility] Comment:Testing performed by : [address], [address] NRBC abs 0.00 0.00 - 0.01 K/cumm [facility] Comment:Testing performed by : [address], [address] Blood 02/02/2025 3:32 AM CDT 02/02/2025 4:43 AM CDT us Dianna Machado NP LAB BLOOD ORDERABLES Final Result Performing Organization Address City/[facility] Co de Phone Number [address] [place] [address] * Magnesium (02/02/2025 3:32 AM CDT) Pathologist [facility] Magnesium 2.0 1.4 - 2.5 mg/dL Comment:Testing performed by : [address], [address] Blood 02/02/2025 3:32 AM CDT 02/02/2025 4:43 AM CDT us Chidi Acosta MD LAB BLOOD ORDERABL ES Final Result Performing Organization Address City/[facility] Co de Phone Number [address] [address] * (ABNORMAL) Basic metabolic panel (02/02/2025 3:32 AM CDT) Sodium 140 135 - 145 mmol/L Comment:Testing performed by : [address], [place]., [address] Potassium, pl 4.1 3.3 - 4.9 mmol/L [facility] Comment: Delta - Results Reviewed Testing performed by: [address], [place]., [address] Chloride 106 97 - 110 mmol/L [facility] Comment:Testing performed by : [address], [place]., [address] CO2 20(L) 22 - 32 mmol/L [facility] Comment:Testing performed by : [address], [place]., [address] Anion gap 14 2 - 15 mmol/L [facility] Comment:Testing performed by : [address], [place]., [address] BUN 17 6 - 25 mg/dL [facility] Comment:Testing performed by : [address], [place]., [address] Creatinine 0.63 0.60 - 1.10 mg/dL [facility] Comment:Testing performed by : [address], [place]., [address] Glucose 102 70 - 199 mg/dL [facility] Comment: Interpretive Data Fasting glucose >/= [...] was last revised 2022. Testing performed by: [address] [address] Calcium 9.2 8.5 - 10.3 mg/dL [facility] Comment:Testing performed by : [address], [place]., [address] Blood 02/02/2025 3:32 AM CDT 02/02/2025 4:43 AM CDT us Dianna Machado [employer] LAB BLOOD ORDERABLES Final Result [facility] [address] [facility] [place] [address] * SD CLOSED TX TEMPOROMANDIBULAR DISLC COMP 1ST/SBSQ (02/01/2025 1:11 PM CDT) Narrative Dayday Pickens MD - 02/01/2025 1:11 PM CDT Dayday Pickens MD 02/01/2025 1:12 PM Orthopedic Injury Treatment - Jaw Dislocation Date/Time: 02/01/2025 1:11 PM Performed by: Dayday Pickens MD Authorized by: Dayday Pickens MD RN Notified of Procedure: yes Informed consent: Risks, benefits, alternatives discussed (Consent obtained by primary team) Patient's stated name/ matches armband: Yes Allergies confirmed: yes Consent form signed, dated, timed; matches correct patient, intended procedure and site: Yes Imaging: Pertinent imaging reviewed, correctly oriented and match to patient identifiers Lab/Diag test results: Pertinent lab/diag tests reviewed and match to patient identifiers Supplies, devices and special equipment are available: yes Site/side marked: yes Injury location: R TMJ Chronicity: Recurrent Range of motion: reduced Sedation used: no Manipulation performed: yes Jaw reduction method: Downward posterior pressure Reduction successful: yes Range of motion: improved Patient tolerance of procedure: Tolerated well, no immediate complications All guidewires, needles, sponges or other items are accounted for: yes Any special post procedure monitoring, testing or other considerations: n/a All specimens identified, labeled and matched to patient identification: n/a Responsible green party for transporting specimen(s) to lab determined: n/a Dayday Pickens MD IN CLINIC/BEDSIDE ORDER YURIY Final Result * (ABNORMAL) Drugs of Abuse Screen, Urine with Reflex Confirmation (02/01/2025 10:15 AM CDT) Amphetamine, ur Not Detected CutOff 500ng/mL Comment: Interpretive Data - Amphetamines: Samples containing greater than 500 ng/mL d-methamphetamine or other cross-reacting amphetamine compounds are reported as positive. Amphetamine immunoassays are subject to significant false positive rates due to cross-reactivity of non-amphetamine drugs. Confirmatory testing required for definitive results. Current Interpretive Data was last reviewed 2023. Testing performed by: [facility], [address] [place] [address]., [address] Barbiturates, ur Not Detected CutOff 200ng/mL [facility] Comment: Interpretive Data - Barbiturates: Samples containing greater than 200 ng/mL secobarbital or other cross-reacting barbiturate compounds are reported as positive. False positive and false negative results are possible. Confirmatory testing required for definitive results. Current Interpretive Data was last reviewed 2023. Testing performed by: [address] [address] Benzodiazepines, ur Screen Positive, presumptive (A) CutOff 100ng/mL [facility] Comment: Interpretive Data - Benzodiazepines: Samples containing greater than 100 ng/mL nordiazepam or other cross-reacting compounds are reported as positive. False positive and false negative results are possible. Confirmatory testing required for definitive results. Current Interpretive Data was last reviewed 2023. Testing performed by: [address] [address] Cannabinoids, ur Not Detected CutOff 50 ng/mL [facility] Comment: Interpretive Data - Cannabinoids: Samples containing greater than 50 ng/mL delta-9 THC -COOH or other cross- reacting compounds are reported as positive. False positive and false negative results are possible. Confirmatory testing required for definitive results. Current Interpretive Data was last reviewed 2023. Testing performed by: [address] [address] Cocaine, ur Not Detected CutOff 150ng/mL [facility] Comment: Interpretive Data - Cocaine: Samples containing greater than 150 ng/mL benzoylecgonine or other cross- reacting compounds are reported as positive. False positive and false negative results are possible. Confirmatory testing required for definitive results. Current Interpretive Data was last reviewed 2023. Testing performed by: [address] [address] Fentanyl, Ur Not Detected CutOff 5 ng/mL [facility] Comment: Interpretive Data - Fentanyl: Samples containing greater than 1 ng/mL fentanyl or other cross-reacting fentanyl compounds are reported as positive. False positive and false negative results are possible. Confirmatory testing required for definitive results. Current Interpretive Data was last reviewed 2023. Testing performed by: [address] [address] Methadone, ur Not Detected CutOff 300ng/mL [facility] Comment: Interpretive Data - Methadone: Samples containing greater than 300 ng/mL d,l-methadone or other cross-reacting compounds are reported as positive. False positive and false negative results are possible. Confirmatory testing required for definitive results. Current Interpretive Data was last reviewed 2023. Testing performed by: [address] [address] Opiates, ur Not Detected CutOff 300ng/mL [facility] Comment: Interpretive Data - Opiates: Samples containing greater than 300 ng/mL morphine or other cross-reacting compounds are reported as positive. False positive and false negative results are possible. Confirmatory testing required for definitive results. Current Interpretive Data was last reviewed 2023. Testing performed by: [address] [address] Oxycodone, ur Not Detected CutOff 100ng/mL [facility] Comment: Interpretive Data - Oxycodone: Samples containing greater than 100 ng/mL oxycodone or other cross-reacting compounds are reported as positive. False positive and false negative results are possible. Confirmatory testing required for definitive results. Current Interpretive Data was last reviewed 2023. Testing performed by: [address] [address] Phencyclidine, ur Not Detected CutOff 25 ng/mL [facility] Comment: Interpretive Data - Phencyclidine: Samples containing greater than 25 ng/mL phencyclidine or other cross-reacting compounds are reported as positive. False positive and false negative results are possible. Confirmatory testing required for definitive results. Current Interpretive Data was last reviewed 2023. Testing performed by: [address] [address] Urine Creatinine 100 mg/dL [facility] Comment: Interpretive Data Urine Creatinine: < 10 mg/dL is extremely dilute = or > 10 but < 20 mg/dL is dilute = or > 20 mg/dL is normal Current Interpretive Data was last revised on 2017. Testing performed by: [address] [address] Urine 02/01/2025 10:1 5 AM CDT 02/01/2025 10:19 AM CDT Narrative [facility] - 02/01/2025 10:46 AM CDT Drug of Abuse screening is performed by immunoassay for medical purposes only. This is not to be used for Pain Management purposes. If Detected, confirmation testing will be performed for Amphetamines, Cocaine, Fentanyl, Methadone, Opiates, Oxycodone or Phencyclidine. Chidi Acosta MD LAB URINE ORDERABL ES Final Result [facility] [address] [facility] [place] [address] * (ABNORMAL) Urinalysis reflex to microscopic and culture Urine, clean voided (02/01/2025 10:15 AM CDT) Color, ur Yellow Yellow Comment:Testing performed by : [address] [address] Clarity, ur Clear Clear [facility] Comment:Testing performed by : [address] [address] Specific gravity, ur 1.019 1.003 - 1.030 [facility] Comment:Testing performed by : [address] [address] pH, urine 6.5 [facility] Comment: Interpretive Data U rine pH is affected by diet, medications, systemic acid-base disturbances, and renal tubular function. pH may affect urinary stone formation. For example, urine pH below 6.0 may help reduce the tendency for calcium phosphate stones and pH greater than 6.0 may reduce the tendency for uric acid stone formation. Source: [employer] Current Interpretive Data was last revised on 2017 Testing performed by: [address] [address] Protein, ur ql Negative Negative [facility] Comment:Testing performed by : [facility], [address] [place] [address], [place]., [address] Glucose, ur ql Negative Negative [facility] Comment:Testing performed by : [address], [place]., [address] Ketones, ur Negative Negative [facility] Comment:Testing performed by : [address], [place]., [address] Bilirubin, ur Negative Negative [facility] Comment:Testing performed by : [address], [place]., [address] Blood, ur 1+(A) Negative [facility] Comment:Testing performed by : [address], [place]., [address] Urobilinogen, ur <2.0 <2.0 mg/dL [facility] Comment:Testing performed by : [address], [place]., [address] Nitrite, ur Negative Negative [facility] Comment:Testing performed by : [address], [place]., [address] Leukocyte esterase, ur Negative Negative [facility] Comment:Testing performed by : [address], [place]., [address] UA reflex comment Reflex to microscopic UA will be performed. [facility] Comment:Testing performed by : [address], [place]., [address] Urine, clean voided 02/01/2025 10:15 AM CDT 02/01/2025 10:19 AM CDT us Dianna Machado NP LAB MICROBIOLOGY - GENERAL ORDERABLES Final Result [facility] [address] [facility] [place] [address] * (ABNORMAL) Urinalysis, microscopic only (02/01/2025 10:15 AM CDT) WBC, ur 0-5 0 - 5 /HPF Comment:Testing performed by : [address], [place]., [address] RBC, ur 21-50(A) 0 - 2 /HPF [facility] Comment:Testing performed by : [facility], [address] [place] [address]., [address] Epithelial cells, squamous, ur >50(A) 0 - 5 /HPF [facility] Comment:Testing performed by : [address], [place]., [address] Bacteria, ur Trace(A) [facility] Comment:Testing performed by : [address] [address] Yeast, ur Trace(A) [facility] Comment:Testing performed by : [address], [place]., [address] Mucous, ur Present(A) [facility] Comment:Testing performed by : [address] [address] Culture Reflex Comment Reflex conditions for urine culture (WBC >10) not met. [facility] Comment:Testing performed by : [address] [address] Urine, clean voided 02/01/2025 10:15 AM CDT 02/01/2025 10:19 AM CDT Dianna Machado NP LAB URINE ORDERABLES Final Result [facility] [address] [facility] [place] [address] * ECG 12 lead (01/31/2025 11:54 PM CDT) Ventricular Rate EKG/Min 144 BPM [facility] Atrial Rate 144 BPM [facility] SD-Interval (MSEC) 104 ms [facility] QRS-Interval (MSEC) 100 ms [facility] QT-Interval (MSEC) 360 ms [facility] QTc 557 ms [facility] R [place] 74 degrees [facility] T [place] 50 degrees [facility] Diagnosis Sinus tachycardia Otherwise normal ECG Confirmed by ZANE SORTO M.D. ([id number]) on 02/02/2025 11:10:09 PM [facility] 01/31/2025 11:5 4 PM CDT 02/02/2025 11:10 PM CDT us Trell Alford Jr., MD ECG ORDERABLES Final Result Performing Organization Address City/[facility]/ZIP Co de Phone Number [facility] * eGFR (01/31/2025 10:28 PM CDT) eGFR >90 >=60 mL/min/1. 73 [...] was last reviewed 2021. Testing performed by: [address] [address] Blood 01/31/2025 10:2 8 PM CDT 01/31/2025 10:33 PM CDT us Trell Alford Jr., MD LAB BLOOD ORDERABLES F inal Result [facility] [place] [address] * (ABNORMAL) Differential, auto (01/31/2025 10:28 PM CDT) Neutrophil abs 6.55(H) 1.50 - 6.50 K/cumm Comment:Testing performed by : [address] [address] Imm gran abs 0.05 0.00 - 0.10 K/cumm [facility] Comment:Testing performed by : [address] [address] Lymphocyte abs 4.75(H) 0.80 - 3.30 K/cumm [facility] Comment:Testing performed by : [address] [address] Monocyte abs 1.07(H) 0.20 - 0.80 K/cumm [facility] Comment:Testing performed by : [address], [place]., [address] Eosinophil abs 0.14 0.00 - 0.50 K/cumm [facility] Comment:Testing performed by : [address] [address] Basophil abs 0.11(H) 0.00 - 0.10 K/cumm [facility] Comment:Testing performed by : [address] [address] Neutrophil pct 51.7 % [facility] Comment: Interpretive Data Percent cell count reference ranges are not reported, since discordance with absolute values may lead to misinterpretation of CBC data. Current Interpretive Data was last revised on 2017. Testing performed by: [address] [address] Imm gran pct 0.4 % [facility] Comment: Interpretive Data Percent cell count reference ranges are not reported, since discordance with absolute values may lead to misinterpretation of CBC data. Current Interpretive Data was last revised on 2017. Testing performed by: [address] [address] Lymphocyte pct 37.5 % [facility] Comment: Interpretive Data Percent cell count reference ranges are not reported, since discordance with absolute values may lead to misinterpretation of CBC data. Current Interpretive Data was last revised on 2017. Testing performed by: [address] [address] Monocyte pct 8.4 % [facility] Comment: Interpretive Data Percent cell count reference ranges are not reported, since discordance with absolute values may lead to misinterpretation of CBC data. Current Interpretive Data was last revised on 2017. Testing performed by: [address] [address] Eosinophil pct 1.1 % [facility] Comment: Interpretive Data Percent cell count reference ranges are not reported, since discordance with absolute values may lead to misinterpretation of CBC data. Current Interpretive Data was last revised on 2017. Testing performed by: [address] [address] Basophil pct 0.9 % [facility] Comment: Interpretive Data Percent cell count reference ranges are not reported, since discordance with absolute values may lead to misinterpretation of CBC data. Current Interpretive Data was last revised on 2017. Testing performed by: [address] [address] Blood 01/31/2025 10:2 8 PM CDT 01/31/2025 10:33 PM CDT Trell Alford Jr., MD LAB BLOOD ORDERABLES F inal Result [place] [address] [facility] Department [place] [address] * (ABNORMAL) CBC with auto differential (01/31/2025 10:28 PM CDT) [facility] WBC 12.67(H) 3.80 - 9.90 K/cumm Comment:Testing performed by : [address] [address] Hgb 11.2(L) 11.9 - 15.5 g/dL [facility] Comment:Testing performed by : [address] [address] Hct 35.6 35.6 - 45.5 % [facility] Comment:Testing performed by : [address] [address] Plt 528(H) 150 - 400 K/cumm [facility] Comment:Testing performed by : [address] [address] MPV 9.6 9.1 - 12.3 fL [facility] Comment:Testing performed by : [facility], [address] [place] [address]., [address] RBC 4.61 3.90 - 5.20 M/cumm [facility] Comment:Testing performed by : [address] [address] MCV 77.2(L) 81.3 - 96.4 fL [facility] Comment:Testing performed by : [address] [address] MCH 24.3(L) 27.1 - 33.3 pg [facility] Comment:Testing performed by : [address] [address] MCHC 31.5(L) 32.3 - 35.7 g/dL [facility] Comment:Testing performed by : [address] [address] RDW CV 15.5(H) 11.1 - 14.9 % [facility] Comment:Testing performed by : [address] [address] RDW SD 42.2 35.7 - 48.1 fL [facility] Comment:Testing performed by : [address] [address] NRBC abs 0.00 0.00 - 0.01 K/cumm [facility] Comment:Testing performed by : [address] [address] Blood 01/31/2025 10:2 8 PM CDT 01/31/2025 10:33 PM CDT us Trell Alford Jr., MD LAB BLOOD ORDERABLES F inal Result [place] [address] [facility] [place] [address] * (ABNORMAL) Comprehensive metabolic panel (01/31/2025 10:28 PM CDT) [facility] Sodium 141 135 - 145 mmol/L Comment:Testing performed by : [address] [address] Potassium, pl 2.9(L) 3.3 - 4.9 mmol/L [facility] Comment: Hemolyzed; Potassium value may be falsely elevated by as much as 1.0 mmol/L. Suggest redraw and reanalysis. Testing performed by: [facility], [address] [place] [address], [place]., [address] Chloride 102 97 - 110 mmol/L [facility] Comment:Testing performed by : [address], [place]., [address] CO2 21(L) 22 - 32 mmol/L [facility] Comment:Testing performed by : [address], [place]., [address] Anion gap 18(H) 2 - 15 mmol/L [facility] Comment:Testing performed by : [address], [place]., [address] BUN 13 6 - 25 mg/dL [facility] Comment:Testing performed by : [address], [place]., [address] Creatinine 0.80 0.60 - 1.10 mg/dL [facility] Comment:Testing performed by : [address], [place]., [address] Glucose 176 70 - 199 mg/dL [facility] Comment: Interpretive Data Fasting glucose >/= [...] was last revised 2022. Testing performed by: [address] [address] Calcium 10.2 8.5 - 10.3 mg/dL [facility] Comment:Testing performed by : [address], [place]., [address] Bilirubin, total <0.2 0.1 - 1.2 mg/dL [facility] Comment:Testing performed by : [facility], [address] [place] [address]., [address] Protein, pl 8.2 6.5 - 8.5 g/dL [facility] Comment:Testing performed by : [address] [address] Albumin 4.7 3.5 - 5.0 g/dL [facility] Comment:Testing performed by : [address] [address] Alk phos 122 40 - 130 Units/L [facility] Comment:Testing performed by : [address] [address] ALT 27 7 - 45 Units/L [facility] Comment:Testing performed by : [address] [address] AST 32 10 - 45 Units/L [facility] Comment: Hemolyzed; result may be falsely elevated Testing performed by: [address] [address] Blood 01/31/2025 10:2 8 PM CDT 01/31/2025 10:33 PM CDT Trell Alford Jr., MD LAB BLOOD ORDERABLES F inal Result Performing Organization Address City/State/[facility] Co de Phone Number [facility] [address] [facility] [place] [address] from Last 3 Months Insurance [facility] CHOICE [employer] [facility] H[facility]/PPO Address: [address] [place] [address] [facility] H[facility]/PPO Address: [address] [place] [address] Advance Directives For more information, please contact: [phone] * Full Code (Latest Code Status on File) Date Activated Date Inactivated Comments 04/02/2025 5:03 PM 04/05/2025 7:42 PM * Full Code Date Activated Date Inactivated Comments 03/20/2025 5:32 AM 03/25/2025 6:52 PM * Full Code Date Activated Date Inactivated Comments 02/01/2025 8:43 AM 02/02/2025 5:38 PM * Full Code Date Activated Date Inactivated Comments 09/23/2024 7:38 PM 09/24/2024 5:41 PM * Full Code Date Activated Date Inactivated Comments 09/01/2024 7:30 PM 09/05/2024 3:39 PM Care Teams Certified Nuclear Medicine Technologist Relationship Specialty Start Date End Date Shannan Maldonado MD PCP - General 09/07/19
== END 2025-04-23 19:31 | disposition home or self-care (01) ==
PROVIDERS: Emergency Provider Registered Nurse; PCP Family Medicine Adolescent Medicine
DX: L76.32 Postprocedural hematoma of skin and subcutaneous tissue following other procedure (principal); M26.69 Other specified disorders of temporomandibular joint; G90.A Postural orthostatic tachycardia syndrome [POTS]; Q79.60 Ehlers-Danlos syndrome, unspecified; D89.40 Mast cell activation, unspecified; J45.909 Unspecified asthma, uncomplicated; K21.9 Gastro-esophageal reflux disease without esophagitis; K58.1 Irritable bowel syndrome with constipation; F41.9 Anxiety disorder, unspecified; Z79.620 Long term (current) use of immunosuppressive biologic; Z79.899 Other long term (current) drug therapy; Y84.8 Other medical procedures as the cause of abnormal reaction of the patient, or of later complication, without mention of misadventure at the time of the procedure
CPT/HCPCS: 81025; 93971; 96372; 99284; J1200; J1885; J3360